=== PATIENT | female | born 1965 | race Caucasian/White ===

== ENCOUNTER 2019-07-19 00:12 | Emergency (ER) | payer MEDICARE, MEDICAID, SELFPAY ==
[2019-07-19 00:15] VITALS: BP 160/92; PULSE 93; RESP 16; TEMP 36.9; O2SAT 98
--- NOTE | 2019-07-19 00:26 | ED.GENADUL_ITS ---
Discharge Plan Disposition Patient Disposition: HOME Condition: Good Discharge Details Chief Complaint: Sorethroat Clinical Impression: Strep pharyngitis Primary Care Provider: Tom Hay ED Provider: Brad Loredo Phillips Meds and New Rx's Prescriptions: Continued fluoxetine [Prozac] 40 mg Capsule 80 mg DAILY RF: 0 alprazolam [Xanax] 1 mg Tablet 1 mg PO BID RF: 0 levothyroxine 300 mcg Tablet 325 mcg PO DAILY RF: 0 aripiprazole [Abilify] 30 mg Tablet 30 mg PO DAILY RF: 0 Discharge Instructions Instructions: Strep Throat (ED) Additional Instructions: Rest and drink plenty of fluids to stay hydrated. Salt water gargles as well as Cepacol lozenges or Chloraseptic spray for throat pain. Acetaminophen or ibuprofen for fever and pain. Follow-up with primary care next week if not better. Return to ED if inability to swallow, difficulty breathing, mental status changes, other concerns or problems. Referrals: Tom aHy [Primary Care Provider] - Medical Decision Making No evidence of [employer]CTION[employer] and no significant edema/swelling noted. Patient rapid strep is positive. Discussed options with patient. She is elected for IM injection of penicillin. Will give Cepacol lozenge and Tylenol for comfort. Push fluids to stay hydrated. Continue ibuprofen and acetaminophen for pain and discomfort. Cepacol lozenges or Chloraseptic spray for throat pain. Salt water gargles. Follow-up with primary care next week if not better. Return to ED for inability to swallow, difficulty breathing, mental status changes, other concerns or problems. HPI General Mode of arrival: ambulatory . Date/Time Provider Initiated Documentation: 07/19/19 00:18 . Limitations to Documentation: no limitations . Information obtained by: patient and RN notes reviewed . HPI Narrative: Patient presents to ED for evaluation of sore throat. Pain started 24 hours ago. She does not know whether she has had fevers or chills. She has cough but feels that it is chronic smoker's cough. She has no shortness of breath. She complains of right ear pain. She has some congestion. She reports that her throat hurts to talk or swallow. She has tried ibuprofen. Related Data Home Medications Medication Instructions Recorded Confirmed alprazolam [Xanax] 1 mg PO BID 07/19/19 07/19/19 aripiprazole [Abilify] 30 mg PO DAILY 07/19/19 07/19/19 fluoxetine [Prozac] 80 mg DAILY 07/19/19 07/19/19 levothyroxine 325 mcg PO DAILY 07/19/19 07/19/19 Allergies Allergy/AdvReac Type Severity Reaction Status Date / Time acetaminophen [From Vicodin] Allergy Unverified 07/19/19 00:18 clonidine Allergy Unverified 07/19/19 00:17 hydrocodone [From Vicodin] Allergy Unverified 07/19/19 00:18 codeine AdvReac Unverified 07/19/19 00:18 methadone AdvReac Unverified 07/19/19 00:17 General Stated Complaint: Sorethroat JOANNE: 4 Review of Systems Review of Systems Narrative: As documented in HPI otherwise negative as below. Const: no fever, chills, weakness Resp: cough; no SOB, pleuritic pain CV: no CP, diaphoresis, edema, syncope GI: no abdominal pain, nausea, vomiting, diarrhea Neuro: no headache, numbness, focal weakness, confusion [facility], [facility] Medical History (Updated 07/19/19 @ 00:26 by Brad Loredo MD) Hypothyroid (Chronic) Social History (Updated 07/19/19 @ 00:26 by Brad Loredo MD) Smoking/Tobacco Use Status: Current every day Tobacco Type: cigarettes Alcohol Intake: current Drug use: Never Do you feel safe at home: Yes Do you feel safe in your relationship?: Yes Exam Narrative Exam Narrative: Vitals: Afebrile. Elevated blood pressure otherwise normal vitals. Normal room air saturation. Const: WDWN female in NAD. HEENT: NC/AT. Normal facial exam.. TMs clear bilaterally. OP with erythema but no swelling, exudate or ulcers. Eyes: Normal conjunctiva and sclera. Neck: Supple. Trachea midline. Positive anterior adenopathy. Lungs: Normal respiratory effort. Lungs are clear. Cor: RRR without murmur/gallop. Neuro: A+O x 3. CN grossly in tact. Good strength and no focal deficit. Skin: Warm and dry without rash. Course Vital Signs Vital signs: Vital Signs Temperature 98.5 F 07/19/19 00:15 Pulse 93 H 07/19/19 00:15 Respiratory Rate 16 07/19/19 00:15 Blood Pressure 160/92 H 07/19/19 00:15 Pulse Oximetry 98 07/19/19 00:15 Temperature 98.5 F 07/19/19 00:15 Pulse 93 H 07/19/19 00:15 Respiratory Rate 16 07/19/19 00:15 Blood Pressure 160/92 H 07/19/19 00:15 Pulse Oximetry 98 07/19/19 00:15 Oxygen Delivery Method Room Air 07/19/19 00:15 Oxygen Flow Rate 0 07/19/19 00:15 Pain Level 10 07/19/19 00:15
[2019-07-19 01:06] VITALS: BP 160/92; PULSE 93; RESP 16; O2SAT 98
== END 2019-07-19 01:19 | disposition home or self-care (01) ==
LOC: ER 01:26
PROVIDERS: Emergency Provider Emergency Medicine; PCP Internal Medicine
DX: J02.0 Streptococcal pharyngitis (principal)
CPT/HCPCS: 87880; 96372; 99284

== ENCOUNTER 2020-03-08 11:18 | Emergency (ER) | payer MEDICARE, MEDICAID, SELFPAY ==
[2020-03-08 11:20] VITALS: BP 133/94; PULSE 91; RESP 16; TEMP 36.4; O2SAT 98
--- NOTE | 2020-03-08 12:02 | W.ED.GENAD ---
Discharge Plan Disposition Patient Disposition: HOME Condition: Stable Discharge Details Chief Complaint: Orthopedic Clinical Impression: Left shoulder pain Primary Care Provider: Tom Hay ED Provider: Daron Mcpherson Home Meds and New Rx's Prescriptions: Continued fluoxetine [Prozac] 40 mg Capsule 80 mg PO DAILY RF: 0 alprazolam [Xanax] 1 mg Tablet 1 mg PO BID RF: 0 levothyroxine 300 mcg Tablet 325 mcg PO DAILY RF: 0 aripiprazole [Abilify] 30 mg Tablet 30 mg PO DAILY RF: 0 Ozempic 1 mg/dose (2 mg/1.5 mL) Pen Injector 1 mg SUBCUT DIRECTED RF: 0 Discharge Instructions Instructions: Shoulder Pain (ED) Additional Instructions: X-ray unremarkable for acute bony abnormality. Wear sling as needed, advance activity as tolerated. Be sure to do passive range of motion at least 4 times daily to avoid a frozen shoulder. [id number] Tylenol and/or Motrin as directed for discomfort. Cool compresses every 2 hours for 20 minutes. Please watch for new or worsening symptoms and return to the ER for any concerns. I have given you the name and number of our local orthopedic. I do recommend reaching out to their office later today or tomorrow for prompt outpatient reevaluation within the next week or so. If symptoms persist outpatient assessment, MRI, physical therapy may be indicated. Referrals: Lew Marion MD [ [facility] STAFF PHYSICIAN] - Medical Decision Making Patient with a left shoulder injury that occurred Thursday morning after slipping on a danish floor falling down stairs on her back and left side. She did have other injuries at the time of the fall but denies those now. She appears well, nontoxic and is neurologically intact. I do not see any obvious ecchymosis or trauma to her left arm but she does have diffuse discomfort over her shoulder and elbow. Range of motion of the elbow is full, limited of the shoulder, held in adduction. Will obtain x-ray of her left shoulder and left elbow. Patient reports taking Motrin this morning, requesting pain medication now. Given her allergy to hydrocodone and codeine, will provide 1 g p.o. Tylenol. Case discussed with Dr. Smith who evaluated the patient in the ER, please see his note. X-ray of left shoulder and elbow read by me as no acute bony abnormality. Discussed findings with patient. Discussed [id number] Tylenol and/or Motrin. Sling applied, we discussed the importance of passive range of motion to avoid frozen shoulder. Discussed cool compresses and the importance of outpatient orthopedic follow-up, outpatient MRI and/or physical therapy may be indicated. Encouraged to return to the ER for new or worsening symptoms. Medical Records Medical records reviewed: Yes I reviewed the patient's medical records. Imaging Data Radiologic Study: Attestation: I personally reviewed and interpreted this imaging study as follows: Imaging: X-Ray Radiologist's impression: Left elbow unremarkable Radiologic Study #2: Attestation: I personally reviewed and interpreted this imaging study as follows: Imaging: X-Ray Radiologist's impression: Left shoulder, no acute bony abnormality. Degenerative changes noted, as well as calcific tendinosis HPI General Mode of arrival: ambulatory. Date/Time Provider Initiated Documentation: 03/08/20 11:19. Limitations to Documentation: no limitations. Information obtained by: patient. HPI Narrative: This is a 54-year-old female with history of thyroid disease, COPD, current smoker, reports that she slipped on Thursday morning because of freshly polished floors. She fell backwards down approximately 25 steps, more so on her left side. She reports at the time of the injury she had back, hip, left arm pain. She did strike her head but denies any LOC. Since that time she reports that her hip and back have improved but she continues to have left shoulder and arm pain, moderate in nature at rest, severe with movement. She is right-hand dominant. She reports tingling down her left arm but denies numbness or weakness. She reports mild nausea today from the pain in her left arm. There is no pain in her chest, the pain in her arm does not radiate anywhere. Related Data Home Medications Medication Instructions Recorded Confirmed alprazolam [Xanax] 1 mg PO BID 07/19/19 03/08/20 aripiprazole [Abilify] 30 mg PO DAILY 07/19/19 03/08/20 fluoxetine [Prozac] 80 mg PO DAILY 07/19/19 03/08/20 levothyroxine 325 mcg PO DAILY 07/19/19 03/08/20 Ozempic 1 mg SUBCUT DIRECTED 03/08/20 03/08/20 Allergies Allergy/AdvReac Type Severity Reaction Status Date / Time clonidine Allergy Severe nazia Unverified 03/08/20 11:29 adriana syndrome hydrocodone [From Vicodin] Allergy Unverified 07/19/19 00:18 codeine AdvReac Unverified 07/19/19 00:18 methadone AdvReac Unverified 07/19/19 00:17 General Stated Complaint: Orthopedic JOANNE: 3 Review of Systems Constitutional Constitutional: Denies fatigue, Denies headache(s) and Denies weakness Eyes Eyes: Denies change in vision ENT Ears, Nose, Mouth, and Throat: Denies headache(s) Cardiovascular Cardiovascular: Denies chest pain and Denies dyspnea Respiratory Respiratory: Denies cough and Denies dyspnea Gastrointestinal Gastrointestinal: Denies abdominal pain, Reports nausea and Denies vomiting Genitourinary Genitourinary: Denies hematuria and Denies dysuria Musculoskeletal Musculoskeletal: Reports back pain (Resolved) and Reports tingling Integumentary/Breasts Skin/Breast: Denies rash Neurologic Neurologic: Denies headache(s), Reports tingling and Denies weakness Endocrine Endocrine: Denies fatigue [facility] Medical History Hypothyroid (Chronic) Social History Smoking/Tobacco Use Status: Current every day Tobacco Type: cigarettes Alcohol Intake: never Drug use: Daily Substance use type: marijuana Do you feel safe at home: Yes Do you feel safe in your relationship?: Yes Exam Const General: cooperative, healthy appearing, comfortable and no acute distress Orientation: alert, awake and oriented x3 HENCA Head: normal to inspection, normocephalic and atraumatic Mouth: moist mucous membranes Eyes Conjunctivae: conjunctivae normal Neck Neck: normal visual inspection, full ROM, trachea midline, supple and nontender Chest Chest: normal inspection of the chest Resp Effort & Inspection: normal respiratory effort and able to speak in complete sentences Auscultation: clear to auscultation bilaterally Cardio Rate: regular rate Rhythm: regular rhythm GI Inspection: normal to inspection Palpation: soft and nontender Back/Spine/Pelvis Back: No back tenderness Skin General skin exam: no rashes or lesions noted Neuro General: patient alert, patient awake, patient oriented x3, moves all extremities and no focal motor deficits Motor: muscle tone normal throughout Sensory Exam: no sensory deficits noted Extrem Left upper extremity: shoulder/upper arm Details: inspection abnormal, tenderness Location: of the proximal humerus, axillary nerve sensory function normal and abnormal ROM Details: held in an abnormal fashion Details: in ADduction, pain with active ROM, pain with passive ROM and with range as follows (Limited in all directions); no swelling, no abrasions, no ecchymosis, no crepitus and no deformity and elbow/forearm Details: normal to inspection, tenderness Location: of the distal humerus, normal ROM and distal pulses intact; no swelling, no unusual warmth and no ecchymosis Psych Appearance: grossly normal Mental Status: mental status grossly normal Course Vital Signs Vital signs: Vital Signs Temperature 36.4 C L 03/08/20 11:20 Pulse 91 H 03/08/20 11:20 Respiratory Rate 16 03/08/20 11:20 Blood Pressure 133/94 H 03/08/20 11:20 Pulse Oximetry 98 03/08/20 11:20 Temperature 36.4 C L 03/08/20 11:20 Temperature Source Skin 03/08/20 11:20 Pulse 91 H 03/08/20 11:20 Respiratory Rate 16 03/08/20 11:20 Respiratory Effort 03/08/20 11:33 Blood Pressure 133/94 H 03/08/20 11:20 Blood Pressure Position Standing 03/08/20 11:20 Pulse Oximetry 98 03/08/20 11:20 Oxygen Delivery Method Room Air 03/08/20 11:20 Oxygen Flow Rate 0 03/08/20 11:20 Pain Level 10 03/08/20 11:31
--- NOTE | 2020-03-08 12:27 | DI.RAD_ITS ---
EXAM: XR ELBOW LT COMPLETE CLINICAL HISTORY: fall 2 days ago. TECHNIQUE: 2D digital imaging was performed. COMPARISON: No exams were available for comparison FINDINGS: BONES: No acute fracture is present. No bony destructive lesion is seen. JOINTS: The elbow is normally aligned. No joint effusion is seen. SOFT TISSUE: Normal. IMPRESSION: Unremarkable radiographs of the left elbow. DATA REPOSITORY: RADIATION DOSE DELIVERED:
--- NOTE | 2020-03-08 12:28 | DI.RAD_ITS ---
EXAM: XR SHOULDER LT COMPLETE 2+V CLINICAL HISTORY: fall 2 days ago. TECHNIQUE: 2D digital imaging was performed. COMPARISON: No exams were available for comparison FINDINGS: BONES: No acute fracture is present. No bony destructive lesion is seen. JOINTS: No dislocation present. There are mild degenerative changes of the AC joint. There is spurri ng at the inferior glenoid. SOFT TISSUE: There are multiple calcifications seen around the humeral head, consistent with calcific tendinosis. IMPRESSION: Mild degenerative changes and calcific tendinosis. No acute abnormality.. DATA REPOSITORY: RADIATION DOSE DELIVERED:
[2020-03-08] MEDS: Acetaminophen 500 MG TAB 1000 MG PO (13:02)
[2020-03-08 13:28] VITALS: BP 133/94; PULSE 91; RESP 16; TEMP 36.4; O2SAT 98
== END 2020-03-08 13:40 | disposition home or self-care (01) ==
PROVIDERS: Emergency Provider Physician Assistant; PCP Internal Medicine
DX: M75.32 Calcific tendinitis of left shoulder (principal); S59.902A Unspecified injury of left elbow, initial encounter; S49.92XA Unspecified injury of left shoulder and upper arm, initial encounter; W10.8XXA Fall (on) (from) other stairs and steps, initial encounter; R11.0 Nausea; J44.9 Chronic obstructive pulmonary disease, unspecified; F17.210 Nicotine dependence, cigarettes, uncomplicated
CPT/HCPCS: 99284; 73030; 73080; 99285; L3650

== ENCOUNTER 2020-06-07 12:49 | Emergency (ER) | payer MEDICARE, MEDICAID, SELFPAY ==
[2020-06-07 12:52] VITALS: BP 130/89; PULSE 98; RESP 16; TEMP 36.6; O2SAT 99
--- NOTE | 2020-06-07 13:00 | DI.CT_ITS ---
EXAM: CT ABDOMEN PELVIS W CLINICAL HISTORY: RUQ and RLQ abd pain, NVD TECHNIQUE: COMPARISON: No exams were available for comparison FINDINGS: CT examination of the abdomen and pelvis was performed with bolus infusion 100 cc of Omnipaque 350. Images obtained through the lung bases show a 7 millimeter mean diameter intrapulmonary nodule of the right lower lobe posteriorly. The liver is unremarkable in appearance except for 13 millimeter in diameter peripheral nodular enhan cing low-attenuation nodule suggestive of hemangioma. Spleen is unremarkable. Gallbladder has been surgically removed. No biliary dilatation. Pancreas appears normal. There is a 27 millimeter in diameter left adrenal mass. No prior studies available for comparison. This measures about 34 Hounsfield units on this contrast-enhanced CT. A noncontrast CT is suggested to evaluate malignancy versus benign adenoma. Kidneys are unremarkable in appearance except for a tiny presumed right renal cysts. No urinary trac t calcification or obstruction. No significant abdominal wall hernia seen. No significant abdominal or pelvic adenopathy. Appendix is normal. No evidence of diverticulitis. There are multiple mildly dilated fluid-filled loops of small bowel throughout the abdomen. There is mild duodenal and jejunal wall thickening. The findings may represent enteritis. Please correlate clinically. Multiple vascular clips noted in the pelvis on the right, question prior oophorectomy and/or salpinge ctomy. Clips also noted on the left. IMPRESSION: Findings raising the possibility of enteritis involving the small bowel. Incidental right basilar intrapulmonary nodule, 7 millimeter mean diameter, follow-up chest CT recomm ended in 6 months. Left adrenal 27 millimeter mass, additional evaluation with noncontrast CT recommended to evaluate be nign adrenal adenoma versus neoplasm. RADIATION DOSE DELIVERED: 1,124.04mGy.cm Total DLP
--- NOTE | 2020-06-07 13:03 | ED.GENADUL_ITS ---
Discharge Plan Disposition Patient Disposition: HOME Condition: Stable Discharge Details Chief Complaint: Abd Prob Clinical Impression: Gastroenteritis, Incidental pulmonary nodule Primary Care Provider: Tom Hay ED Provider: Lilly Martinez Home Meds and New Rx's Prescriptions: New ondansetron HCl [Zofran] 4 mg tablet 4 mg PO Q8H PRN (Reason: nausea and vomiting) Qty: 10 RF: 0 dicyclomine 20 mg tablet 20 mg PO TID PRN (Reason: stomach upset) Qty: 14 RF: 0 No Action fluoxetine [Prozac] 40 mg Capsule 80 mg PO DAILY RF: 0 alprazolam [Xanax] 1 mg Tablet 1 mg PO BID RF: 0 levothyroxine 300 mcg Tablet 325 mcg PO DAILY RF: 0 aripiprazole [Abilify] 30 mg Tablet 30 mg PO DAILY RF: 0 Spiriva with HandiHaler 18 mcg Capsule, W/Inhalation Device 1 cap INHALATION DAILY RF: 0 Trelegy Ellipta 100-62.5-25 mcg Blister With Device 1 inh INHALATION DAILY RF: 0 albuterol sulfate 90 mcg/actuation Aero Powdr Breath Act W/Sensor 2 inh INHALATION Q6H RF: 0 esomeprazole magnesium 40 mg Capsule,Delayed Release(Dr/Ec) 80 mg PO DAILY RF: 0 Ozempic 1 mg/dose (2 mg/1.5 mL) Pen Injector 1 mg SUBCUT DIRECTED RF: 0 Discharge Instructions Instructions: Gastroenteritis (ED), Pulmonary Nodules (ED) Additional Instructions: Have primary care provider follow-up on the incidental findings of her CT abdomen pelvis. There is a questionable pulmonary nodule and adrenal mass. There is also some evidence of enteritis. Diet as discussed. Try the brat diet with bananas rice apples toast and then a bland diet thereafter. Practice clear liquids for 48 to 72 hours. Follow up with primary care provider in 3-5 days. Return to ED sooner if any worsening fever abdominal pain blood noted in her stool, or concerns. Increase oral fluids. Referrals: Tom Hay [Primary Care Provider] - Discharge Data Discharge Date/Time-TO BE ENTERED AT DEPARTURE: 06/07/20 15:56 Medical Decision Making 54-year-old female presents to the ER with chief complaint of right upper quadrant and right lower quadrant abdominal pain. Associated with nausea vomiting and watery diarrhea which has gotten worse since last night. Pain radiates straight into back, and from right upper quadrant down her right lower quadrant. She reports pain that waxes and wanes. Exacerbating factors include movement and position changes and drinking water. She reports that initially it was across her abdomen is now concentrated on her right side. Does have a history of asthma, COPD, anxiety, diabetes, GERD, hypothyroidism. Surgical history includes cholecystectomy, hysterectomy, shoulder surgery. She is a daily smoker and does endorse marijuana use. Denies alcohol. Differential diagnosis this time includes but not limited to common bile duct stone, appendicitis, bowel obstruction, gastroenteritis, GI bleed. EXAM: CT ABDOMEN PELVIS W CLINICAL HISTORY: RUQ and RLQ abd pain, NVD TECHNIQUE: COMPARISON: No exams were available for comparison FINDINGS: CT examination of the abdomen and pelvis was performed with bolus infusion 100 cc of Omnipaque 350. Images obtained through the lung bases show a 7 millimeter mean diameter intrapulmonary nodule of the right lower lobe posteriorly. The liver is unremarkable in appearance except for 13 millimeter in diameter peripheral nodular enhancing low-attenuation nodule suggestive of hemangioma. Spleen is unremarkable. Gallbladder has been surgically removed. No biliary dilatation. Pancreas appears normal. There is a 27 millimeter in diameter left adrenal mass. No prior studies available for comparison. This measures about 34 Hounsfield units on this contrast-enhanced CT. A noncontrast CT is suggested to evaluate malignancy versus benign adenoma. Kidneys are unremarkable in appearance except for a tiny presumed right renal cysts. No urinary tract calcification or obstruction. No significant abdominal wall hernia seen. No significant abdominal or pelvic adenopathy. Appendix is normal. No evidence of diverticulitis. There are multiple mildly dilated fluid-filled loops of small bowel throughout the abdomen. There is mild duodenal and jejunal wall thickening. The findings may represent enteritis. Please correlate clinically. Multiple vascular clips noted in the pelvis on the right, question prior oophorectomy and/or salpingectomy. Clips also noted on the left. IMPRESSION: Findings raising the possibility of enteritis involving the small bowel. Incidental right basilar intrapulmonary nodule, 7 millimeter mean diameter, follow-up chest CT recommended in 6 months. Left adrenal 27 millimeter mass, additional evaluation with noncontrast CT recommended to evaluate benign adrenal adenoma versus neoplasm. Discussed CT findings with patient, verbalized understanding. Discussed close follow-up with PCP patient states that she has an appointment coming up in 2 weeks she will call to see if she has a sooner appointment available. HPI General Mode of arrival: ambulatory . Date/Time Provider Initiated Documentation: 06/07/20 12:50 . Limitations to Documentation: no limitations . Information obtained by: patient . HPI Narrative: 54-year-old female presents to the ER with chief complaint of right upper quadrant and right lower quadrant abdominal pain. Associated with nausea vomiting and watery diarrhea which has gotten worse since last night. Pain radiates straight into back, and from right upper quadrant down her right lower quadrant. She reports pain that waxes and wanes. Exacerbating factors include movement and position changes and drinking water. She reports that initially it was across her abdomen is now concentrated on her right side. Does have a history of asthma, COPD, anxiety, diabetes, GERD, hypothyroidism. Surgical history includes cholecystectomy, hysterectomy, shoulder surgery. She is a daily smoker and does endorse marijuana use. Denies alcohol. Related Data Home Medications Medication Instructions Recorded Confirmed alprazolam [Xanax] 1 mg PO BID 07/19/19 06/07/20 aripiprazole [Abilify] 30 mg PO DAILY 07/19/19 06/07/20 fluoxetine [Prozac] 80 mg PO DAILY 07/19/19 06/07/20 levothyroxine 325 mcg PO DAILY 07/19/19 06/07/20 Ozempic 1 mg SUBCUT DIRECTED 03/08/20 06/07/20 albuterol sulfate 2 inh INHALATION Q6H 06/07/20 06/07/20 dicyclomine 20 mg PO TID PRN #14 tab 06/07/20 esomeprazole magnesium 80 mg PO DAILY 06/07/20 06/07/20 jcijulznlct-ztjedsnuw-bqzfmini 1 inh INHALATION DAILY 06/07/20 06/07/20 [Trelegy Ellipta] ondansetron HCl [Zofran] 4 mg PO Q8H PRN #10 tab 06/07/20 tiotropium bromide [Spiriva with 1 cap INHALATION DAILY 06/07/20 06/07/20 HandiHaler] Previous Rx's Medication Instructions Recorded dicyclomine 20 mg PO TID PRN #14 tab 06/07/20 ondansetron HCl [Zofran] 4 mg PO Q8H PRN #10 tab 06/07/20 Allergies Allergy/AdvReac Type Severity Reaction Status Date / Time clonidine Allergy Severe nazia Unverified 06/07/20 13:33 adriana syndrome codeine Allergy Itching Unverified 06/07/20 12:54 hydrocodone [From Vicodin] Allergy Itching Unverified 06/07/20 12:54 methadone AdvReac Nausea Unverified 06/07/20 12:54 General Stated Complaint: Abd Prob JOANNE: 3 Review of Systems Narrative: Constitutional: Negative for weight loss, alert and oriented, well groomed, normal body habitus, appears comfortable. HEENT: Denies trauma, headaches, blurry vision, nasal discharge, sore throat, trouble swallowing. Chest: Denies chest pain, palpitations, irregular rhythm, hypertension. Respiratory: Denies Shortness of breath, cough, hemoptysis. GI: Denies constipation. Positive nausea vomiting diarrhea and right upper quadrant abdominal pain. : Denies dysuria, hematuria, flank pain, rectal bleeding. Neuro: Denies dizziness, blurry vision, weakness, syncope, headache or facial numbness. Hematologic: Denies easy bruising, intolerance to heat or cold, hair loss. COUNT INCLUDES THE [facility] Medical History Anxiety (Chronic) Asthma (Chronic) COPD (chronic obstructive pulmonary disease) (Chronic) Depression (Chronic) Diabetes mellitus (Chronic) GERD (gastroesophageal reflux disease) (Chronic) Hypothyroid (Chronic) Surgical History History of cholecystectomy (Chronic) History of hysterectomy (Chronic) Hx of shoulder surgery (Chronic) Social History Smoking/Tobacco Use Status: Current every day Tobacco Type: cigarettes Alcohol Intake: never Drug use: Daily Substance use type: marijuana Do you feel safe at home: Yes Do you feel safe in your relationship?: Yes Exam Narrative Exam Narrative: Constitutional: Alert and oriented x3. Appears stated age. Normal body habitus. Head: Normocephalic, no trauma. Eyes: Pupils PERRLA, Red reflex noted, EOM's intact. Eyelids symmetrical without lesions, discharge, or swelling. ENT: Bilateral TM's WNL, External ear normal to inspection, no mastoid TTP, swelling, or erythema, Nasal turbinates WNL, no nasal discharge. Normal dentition, Posterior pharynx WNL, no exudate. Chest: RRR, Normal S1, S2, distal pulses intact. Resp: Lungs clear to auscultation bilaterally, no wheezes, rales, or rhonchi. Musculoskeletal: Normal gait, 5/5 strength to all four extremities. Skin: No suspicious rashes or lesions. Capillary refill less than 2 sec. Neurologic: Cranial nerves II-XII intact. Alert and oriented x 3. DTR's intact. Hematologic/Lymphatic: No ecchymosis, no lymphadenopathy. Course Vital Signs Vital signs: Vital Signs Temperature 36.6 C 06/07/20 12:52 Pulse 98 H 06/07/20 12:52 Respiratory Rate 16 06/07/20 12:52 Blood Pressure 130/89 06/07/20 12:52 Pulse Oximetry 99 06/07/20 12:52 Temperature 36.6 C 06/07/20 12:52 Temperature Source Temporal Artery Scan 06/07/20 12:52 Pulse 98 H 06/07/20 12:52 Respiratory Rate 16 06/07/20 12:52 Respiratory Effort Non-Labored 06/07/20 12:56 Blood Pressure 130/89 06/07/20 12:52 Blood Pressure Position Sitting 06/07/20 12:52 Pulse Oximetry 99 06/07/20 12:52 Oxygen Delivery Method Room Air 06/07/20 12:52 Oxygen Flow Rate 0 06/07/20 12:52 Pain Level 9 06/07/20 12:52
[2020-06-07] MEDS: Normal Saline 1,000 ML 1000 ML IV (13:11)
[2020-06-07] MEDS: Ondansetron 4 MG/2 ML VIAL IVP (13:12)
[2020-06-07] MEDS: fentaNYL 100 MCG/2 ML VIAL 50 MCG IVP (13:12)
[2020-06-07 13:20] LABS: Absolute Eosinophil Count 0.13 10^3/uL (0.0-0.7); Absolute Lymphocyte Count 2.38 10^3/uL (1.2-3.4); Absolute Monocyte Count 0.58 10^3/uL (0.1-0.8); Basophils % 0.3; Eosinophils % 0.7; HCT 45.2 % (36.0-46.0); HGB 15.4 g/dL (11.2-15.7); Immature Grans % 0.6; Lymphocytes % 13.2; MCH 31.1 pg (27.0-33.0); MCHC 34.1 % (32.0-36.0); MCV 91.3 fL (80-95); MPV 9.8 fL (8.0-11.0); Monocytes % 3.2; Nucleated RBC 0 %; Platelet Count 366 10^3/uL (130-400); RBC 4.95 10^6/uL (3.93-5.22); RDW 12.7 % (11.7-14.6); RDW-SD 42.1 fL; WBC 18.05 10^3/uL (4.4-10.8)
[2020-06-07] MEDS: FAMOTIDINE 20 MG/50 ML BAG 200 MG IVPB (13:21)
[2020-06-07 13:22] LABS: Absolute Basophil Count 0.05 10^3/uL (0.0-0.2)
[2020-06-07 13:25] VITALS: BP 130/85; PULSE 92; O2SAT 94
[2020-06-07] MEDS: Normal Saline Flush 10 ML SYR IVP (13:25)
[2020-06-07 13:30] LABS: ALT 19 U/L (14-59); AST 7 U/L (15-37); Albumin 3.5 g/dL (3.4-5.0); Alkaline Phosphatase 74 U/L (46-116); Anion Gap 8.9 mmol/L (3-11); BUN 9 mg/dL (7-18); Bilirubin, Total 0.3 mg/dL (0.2-1.0); CO2 28.1 mmol/L (21.0-32.0); CREATININE 0.63 mg/dL (0.55-1.02); Chloride 103 mmol/L (98-107); Glucose 162 mg/dL (74-106); Lipase 130 U/L (73-393); Magnesium 1.7 mg/dL (1.8-2.4); Potassium 3.8 mmol/L (3.5-5.1); Sodium 140 mmol/L (136-145); Total Protein 7.2 g/dL (6.4-8.2)
[2020-06-07 13:40] LABS: Bilirubin Negative (Negative); Blood Trace-intact (Negative); Clarity Clear (Clear); Glucose Negative (Negative); Ketones Negative (Negative); Leukocyte Esterase Negative (Negative); Nitrite Negative (Negative); Specific Gravity 1.025 (1.005-1.025); Urobilinogen 0.2 EU/dL (Up TO 0.2); pH 6.5 (5-8)
[2020-06-07 13:49] LABS: Bacteria Negative HPF (Negative); C & S Indicated? No; Casts Negative LPF (Negative); Crystals Negative HPF (Negative); Epithelial Cells Few HPF (Negative); Mucus Negative (Negative); RBC 0-2 HPF (0-2); WBC 0-2 HPF (0-5)
[2020-06-07] MEDS: Omnipaque 350 MG/ML 100 ML BTL IJ (14:59)
[2020-06-07] MEDS: Normal Saline - Diluent 50 ML VIAL IV (15:00)
[2020-06-07 15:50] VITALS: BP 137/86; PULSE 81; RESP 16; TEMP 36.6; O2SAT 96
== END 2020-06-07 15:56 | disposition home or self-care (01) ==
PROVIDERS: Emergency Provider Registered Nurse Emergency; PCP Internal Medicine
DX: K52.89 Other specified noninfective gastroenteritis and colitis (principal); R91.1 Solitary pulmonary nodule; R10.31 Right lower quadrant pain; R11.2 Nausea with vomiting, unspecified; J44.9 Chronic obstructive pulmonary disease, unspecified; F17.210 Nicotine dependence, cigarettes, uncomplicated; E11.9 Type 2 diabetes mellitus without complications
CPT/HCPCS: 36415; 80053; 83690; 96361; 96365; 96375; 99285; 74177; 81003; 81015; 83735; 85025; 99284; J2405; J3010; J3490

== ENCOUNTER 2020-11-20 17:37 | Emergency (ER) | payer MEDICARE, MEDICAID, SELFPAY ==
[2020-11-20 17:44] VITALS: BP 119/87; PULSE 108; RESP 20; TEMP 36.8; O2SAT 96
--- NOTE | 2020-11-20 17:45 | ED.GENADUL_ITS ---
Discharge Plan Disposition Patient Disposition: HOME Condition: Stable Discharge Details Clinical Impression: Cellulitis of neck, Psoriasis of scalp Primary Care Provider: Tom Hay ED Provider: Uzma Lemon Home Meds and New Rx's Prescriptions: New cephalexin [Keflex] 500 mg capsule 500 mg PO QID 7 Days Qty: 28 RF: 0 Continued fluoxetine [Prozac] 40 mg Capsule 80 mg PO DAILY RF: 0 alprazolam [Xanax] 1 mg Tablet 1 mg PO BID RF: 0 levothyroxine 300 mcg Tablet 325 mcg PO DAILY RF: 0 aripiprazole [Abilify] 30 mg Tablet 30 mg PO DAILY RF: 0 Spiriva with HandiHaler 18 mcg Capsule, W/Inhalation Device 1 cap INHALATION DAILY RF: 0 Trelegy Ellipta 100-62.5-25 mcg Blister With Device 1 inh INHALATION DAILY RF: 0 albuterol sulfate 90 mcg/actuation Aero Powdr Breath Act W/Sensor 2 inh INHALATION Q6H RF: 0 esomeprazole magnesium 40 mg Capsule,Delayed Release(Dr/Ec) 80 mg PO DAILY RF: 0 ondansetron HCl [Zofran] 4 mg tablet 4 mg PO Q8H PRN (Reason: nausea and vomiting) Qty: 10 RF: 0 ibuprofen 800 mg Tablet 800 mg PO Q8H PRNRF: 0 Ozempic 1 mg/dose (2 mg/1.5 mL) Pen Injector 1 mg SUBCUT DIRECTED RF: 0 Discharge Instructions Instructions: Cellulitis (ED), Acute Rash (ED) Additional Instructions: Take antibiotics until finished. Keep the area clean and dry and wash with gentle shampoo. Alternate tylenol and motrin as needed and directed for pain. Take the tramadol for pain not relieved with Tylenol or Motrin. Follow-up with your primary care doctor in 1 week. Return to the emergency department with any worsening or new concerning symptoms. Discharge Data Discharge Date/Time-TO BE ENTERED AT DEPARTURE: 11/20/20 19:00 Discharge Physician: Uzma Lemon Medical Decision Making 55-year-old female with a history of asthma, anxiety, COPD, diabetes and GERD presents with painful lump to the back of her neck for the past several days. She has a psoriasis rash to the back of her scalp and upper neck which appears chronic and significantly tender to palpation. There is no abscess noted. Suspect secondary bacterial infection due to scratching. She appears nontoxic do not see indication for lab work or imaging at this time. Will treat with Keflex and send home with a couple tabs of tramadol. Advised to follow-up with a primary care doctor for evaluation and return here if worse. Medical Records Medical records reviewed: Yes I reviewed the patient's medical records. HPI General Mode of arrival: ambulatory . Date/Time Provider Initiated Documentation: 11/20/20 17:45 . Limitations to Documentation: no limitations . Information obtained by: patient . HPI Narrative: Pt is a 55yo F who presents to the ED w/ a c/o painful lump to the back of her neck for the past few weeks, worse recently. Patient states she has had a history of a MRSA infection in the back of her neck and states she wanted to be checked out before this became worse as this required admission to the hospital and IV antibiotics in the past. She has a surgery scheduled for a different concern with her neck at [facility] next week. She denies any fever, difficulty swallowing, arm weakness or numbness, chest pain or shortness of breath. Related Data Home Medications Medication Instructions Recorded Confirmed alprazolam [Xanax] 1 mg PO BID 07/19/19 11/20/20 aripiprazole [Abilify] 30 mg PO DAILY 07/19/19 11/20/20 fluoxetine [Prozac] 80 mg PO DAILY 07/19/19 11/20/20 levothyroxine 325 mcg PO DAILY 07/19/19 11/20/20 Ozempic 1 mg SUBCUT DIRECTED 03/08/20 11/20/20 Spiriva with HandiHaler 1 cap INHALATION DAILY 06/07/20 11/20/20 Trelegy Ellipta 1 inh INHALATION DAILY 06/07/20 11/20/20 albuterol sulfate 2 inh INHALATION Q6H 06/07/20 11/20/20 esomeprazole magnesium 80 mg PO DAILY 06/07/20 11/20/20 ondansetron HCl [Zofran] 4 mg PO Q8H PRN #10 tab 06/07/20 11/20/20 cephalexin [Keflex] 500 mg PO QID 7 Days #28 cap 11/20/20 ibuprofen 800 mg PO Q8H PRN 11/20/20 11/20/20 Previous Rx's Medication Instructions Recorded ondansetron HCl [Zofran] 4 mg PO Q8H PRN #10 tab 06/07/20 cephalexin [Keflex] 500 mg PO QID 7 Days #28 cap 11/20/20 Allergies Allergy/AdvReac Type Severity Reaction Status Date / Time clonidine Allergy Severe nazia Unverified 11/20/20 17:46 adriana syndrome codeine Allergy Itching Unverified 11/20/20 17:46 hydrocodone [From Vicodin] Allergy Itching Unverified 11/20/20 17:46 methadone AdvReac Nausea Unverified 11/20/20 17:46 General JOANNE: 3 Review of Systems All systems reviewed & are unremarkable except as noted in HPI and below Constitutional Constitutional: Reports as per HPI, Denies chills and Denies fever(s) Eyes Eyes: Denies blurry vision ENT Ears, Nose, Mouth, and Throat: Denies dizziness, Denies sore throat and Denies throat swelling Cardiovascular Cardiovascular: Denies chest pain and Denies dyspnea Respiratory Respiratory: Denies cough and Denies dyspnea Gastrointestinal Gastrointestinal: Denies abdominal pain, Denies diarrhea and Denies vomiting Genitourinary Genitourinary: Denies hematuria and Denies dysuria Musculoskeletal Musculoskeletal: Denies back pain and Denies numbness Integumentary/Breasts Skin/Breast: Reports lesions and Denies rash Neurologic Neurologic: Denies dizziness, Denies localized weakness and Denies numbness Allergic/Immunologic Allergic/Immunologic: Denies throat swelling PFSH Medical History (Updated 11/20/20 @ 18:53 by Uzma Lemon DO) Anxiety Asthma COPD (chronic obstructive pulmonary disease) Depression Diabetes mellitus GERD (gastroesophageal reflux disease) Hypothyroid Surgical History History of cholecystectomy History of hysterectomy Hx of shoulder surgery Social History Smoking/Tobacco Use Status: Current every day Tobacco Type: cigarettes Smoking risk assessment performed?: Yes Alcohol Intake: never Drug use: Daily Substance use type: marijuana Do you feel safe at home: Yes Do you feel safe in your relationship?: Yes Exam Const General: cooperative, healthy appearing and no acute distress HENMT Head: normal to inspection Ears: hearing grossly normal bilaterally, external ears normal and TM's normal bilaterally General nose exam: external nose normal Mouth: oral mucosae normal Throat: posterior oropharynx normal Eyes General: appearance normal, both eyes and all related structures Neck Neck: full ROM, no lymphadenopathy, no meningeal signs, trachea midline, supple and anterior neck swelling Neck images: 1. 5 x 4 cm area patchy scaly erythema with central clearing located at the base of the skull and upper neck. This area significantly tender to palpation but no fluctuance or induration noted. There is no drainage or bleeding. Resp Effort & Inspection: normal respiratory effort and able to speak in complete sentences Cardio Rate: regular rate Skin General skin exam: no rashes or lesions noted Neuro General: patient alert, patient awake and patient oriented x3 Motor: muscle tone normal throughout Extrem General: normal to inspection and full ROM Psych Appearance: grossly normal Affect: normal affect
[2020-11-20] MEDS: Cephalexin 500 MG CAP PO (18:59)
[2020-11-20] MEDS: Cephalexin 500 MG CAP, 4 CAPS/BTL PO (19:00)
== END 2020-11-20 19:00 | disposition home or self-care (01) ==
PROVIDERS: Emergency Provider Physician Assistant; PCP Internal Medicine
DX: L03.221 Cellulitis of neck (principal); L40.9 Psoriasis, unspecified
CPT/HCPCS: 99283

== ENCOUNTER 2020-12-07 18:46 | Emergency (ER) | payer MEDICARE, MEDICAID, SELFPAY ==
--- NOTE | 2020-12-07 18:49 | W.ED.GENAD ---
Discharge Plan Disposition Patient Disposition: HOME Condition: Good Discharge Details Clinical Impression: UTI (urinary tract infection), Skin irritation Primary Care Provider: Tom Hay ED Provider: Katie Winters Home Meds and New Rx's Prescriptions: New cephalexin 500 mg capsule 500 mg PO QID 4 Days Qty: 16 RF: 0 Continued fluoxetine [Prozac] 40 mg Capsule 80 mg PO DAILY RF: 0 alprazolam [Xanax] 1 mg Tablet 1 mg PO TID RF: 0 levothyroxine 300 mcg Tablet 325 mcg PO DAILY RF: 0 aripiprazole [Abilify] 30 mg Tablet 30 mg PO DAILY RF: 0 Trelegy Ellipta 100-62.5-25 mcg Blister With Device 1 inh INHALATION DAILY RF: 0 albuterol sulfate 90 mcg/actuation Aero Powdr Breath Act W/Sensor 2 inh INHALATION Q6H RF: 0 esomeprazole magnesium 40 mg Capsule,Delayed Release(Dr/Ec) 80 mg PO DAILY RF: 0 ondansetron HCl [Zofran] 4 mg tablet 4 mg PO Q8H PRN (Reason: nausea and vomiting) Qty: 10 RF: 0 Ozempic 1 mg/dose (2 mg/1.5 mL) Pen Injector 1 mg SUBCUT DIRECTED RF: 0 Discharge Instructions Instructions: Cephalexin (By mouth), Urinary Tract Infection in Women (ED) Additional Instructions: The discomfort you are experiencing in your vagina is most consistent with vaginal irritation, likely from the soap you have been using. Please stop this and use something more soothing. May use just warm water. You may use your estrogen cream as was advised by her hand laminator. You do have hemorrhoids as well, please use [id number] hemorrhoid treatment for this. You also have findings suggest a bacterial urinary tract infection. Please take the antibiotics as prescribed. Even if symptoms improve, please take the entire course. Please contact your surgeon to discuss any continued pain you have over your incision. Please follow up with primary care in 1-2 weeks for reevaluation. If you develop fever/chills, increased pain, back pain, nausea, vomiting or other new/worsening symptoms please seek care urgently once again. Referrals: Tom Hay [Primary Care Provider] - Discharge Data Discharge Date/Time-TO BE ENTERED AT DEPARTURE: 12/07/20 20:20 Medical Decision Making Patient is a pleasant 55-year-old female presenting with chief complaint of drainage from her neck incision, possible UTI and possible vaginal yeast infection. Patient had surgical intervention on 11/30/2020 at which time she underwent anterior approach C6 corpectomy, C5-7 ACCF. Patient reports that she remove the dressing over the incision per discharge instructions did not have anything to reapply over that. Since then, her c-collar has been rubbing on the incision has had increased discomfort and swelling. She was concerned for potential infection. She denies any fevers or chills. States that she is swallowing and breathing comfortably. Patient is also concerned she may have a yeast infection. She reports that with her diabetes she has had chronic yeast infections. However, she denies any vaginal discharge and reports more of the vaginal itching which is unusual for her. She states that she is also has some burning with urination. States that she has been drinking a large amount of water and feels that this is more of the source of her increased urination. Is not having any urgency associate with this. Denies any back pain. Past medical history is pertinent for anxiety, asthma UTD, diabetes. On exam, patient appears anxious. Patient appears to be healing well. She does have Steri-Strips overlying the incision which were not removed. She has a small amount of dried blood over one area of the incision did not appreciate any surrounding erythema, warmth, drainage. She does have swelling inferior to the incision this is not erythematous or fluctuant. Wound was redressed and collar reapplied. Patient immediately reported feeling improved and feels that this may have just been irritation from alcohol or rubbing. Vaginal exam did not yield any vaginal discharge. However, the external and internal skin is quite erythematous. On further questioning, the patient now reporting that she has been cleansing her vaginal area with Mag dish detergent as she has not been allowed to shower thus far. She was feeling that the antimicrobial qualities would be of benefit. I feel this is more of a vulvovaginitis. I was not able to visualize the patient's cervix. She was quite uncomfortable of the speculum exam, I can primarily associated with the skin pain. Skin does also appear to be dry. She reports that typically she uses a estrogen cream for this but has not been using it since the time of surgery. Encourage that she begin using this again. Patient has no CVA tenderness. Not see any evidence of abscess or cellulitis. Urinalysis was reviewed. Moderate bacteria. Negative leukocyte esterase and nitrite. Patient I did discuss these findings and discussed that her symptoms do have a concern for potential UTI. She has had pyelonephritis historically per her report. She does not demonstrate any evidence of time. I do feel that treatment with antibiotics would be appropriate. Encourage water intake. Patient is getting cleansing wipes advised that she wash her genital area with warm water and to towel dry. Return precautions were discussed. I did advise that she stay in close contact with her surgeon regarding her incision. Dressing supplies were provided for the patient. They have recommended that she recover the wound but that again, she did not have any bandages at home. All other questions or concerns were addressed and she is in agreement this plan. HPI General Mode of arrival: ambulatory. Date/Time Provider Initiated Documentation: 12/07/20 18:47. Limitations to Documentation: no limitations. Information obtained by: patient, RN notes reviewed and old records reviewed (reviewed notes from recent surgery at [facility]). History of Present Illness 55 year old F presents to the emergency department with the chief complaint of discharge from surgical incision, concern for UTI and yeast infection, described as severe, with intensity rated at 8 (pain in neck since recent surgery). Quality is described as aching, and is localized to the neck and genitals. Patient reports no radiation. Patient started experiencing this day(s) and it has been constant. Medication improves symptom(s), (has been using oxycodone as prescribed for postsurgical pain) Movement worsens symptoms . Patient notes denies chest pain, cough, fever/chills, loss of appetite, nausea/vomiting, rash and shortness of breath. Patient did receive the following treatments prior to arrival, other (oxycodone) Related Data Home Medications Medication Instructions Recorded Confirmed alprazolam [Xanax] 1 mg PO TID 07/19/19 12/07/20 aripiprazole [Abilify] 30 mg PO DAILY 07/19/19 12/07/20 fluoxetine [Prozac] 80 mg PO DAILY 07/19/19 12/07/20 levothyroxine 325 mcg PO DAILY 07/19/19 12/07/20 Ozempic 1 mg SUBCUT DIRECTED 03/08/20 12/07/20 Trelegy Ellipta 1 inh INHALATION DAILY 06/07/20 12/07/20 albuterol sulfate 2 inh INHALATION Q6H 06/07/20 12/07/20 esomeprazole magnesium 80 mg PO DAILY 06/07/20 12/07/20 ondansetron HCl [Zofran] 4 mg PO Q8H PRN #10 tab 06/07/20 12/07/20 cephalexin 500 mg PO QID 4 Days #16 cap 12/07/20 Previous Rx's Medication Instructions Recorded ondansetron HCl [Zofran] 4 mg PO Q8H PRN #10 tab 06/07/20 cephalexin 500 mg PO QID 4 Days #16 cap 12/07/20 Allergies Allergy/AdvReac Type Severity Reaction Status Date / Time clonidine Allergy Severe nazia Unverified 12/07/20 18:55 adriana syndrome codeine Allergy Itching Unverified 12/07/20 18:55 hydrocodone [From Vicodin] Allergy Itching Unverified 12/07/20 18:55 methadone AdvReac Nausea Unverified 12/07/20 18:55 General JOANNE: 4 Review of Systems Constitutional Constitutional: Reports as per HPI, Denies chills, Denies fever(s), Denies headache(s) and Denies poor appetite ENT Ears, Nose, Mouth, and Throat: Denies headache(s) Cardiovascular Cardiovascular: Denies chest pain Respiratory Respiratory: Denies cough Gastrointestinal Gastrointestinal: Denies abdominal pain, Denies change in bowel habits, Denies nausea and Denies vomiting Genitourinary Genitourinary: Reports as per HPI Musculoskeletal Musculoskeletal: Reports as per HPI and Denies back pain Integumentary/Breasts Skin/Breast: Reports as per HPI and Denies rash Neurologic Neurologic: Denies headache(s) [facility] Medical History (Updated 12/07/20 @ 20:12 by YUNIOR Villalba) Anxiety Asthma COPD (chronic obstructive pulmonary disease) Depression Diabetes mellitus GERD (gastroesophageal reflux disease) Hypothyroid Surgical History History of cholecystectomy History of hysterectomy Hx of shoulder surgery Social History Smoking/Tobacco Use Status: Current every day Tobacco Type: cigarettes Smoking risk assessment performed?: Yes Alcohol Intake: never Drug use: Daily Substance use type: marijuana Do you feel safe at home: Yes Do you feel safe in your relationship?: Yes Exam Const General: cooperative, healthy appearing, comfortable, no acute distress, well developed, well groomed and anxious Nutritional Appearance: average body habitus and well nourished Orientation: alert and awake Neck Neck images: 1. area of incision, covered with steristrips. No discharge. Swelling just inferior and lateral to the wound. No erythema, warmth, drainage, fluctuance. Tender to palpation. Swallowing well, no respiratory distress. Trachea is midline, no lymphadenopathy. Resp Effort & Inspection: normal respiratory effort and no respiratory distress Auscultation: clear to auscultation bilaterally, no rales, no rhonchi and no wheezes Cardio Rate: regular rate Rhythm: regular rhythm Heart Sounds: S1 normal and S2 normal GI Inspection: normal to inspection Palpation: soft, no hepatosplenomegaly, not firm, no guarding, not rigid and nontender External Female Exam: erythema (skin is diffusely erythematous, on warmth, discharge or swelling), externally tender (diffuse), no external swelling, no lesions, no lacerations, no ecchymosis, No urethral discharge and No Bartholin cyst Speculum Exam - Vagina: vagina atrophic, erythematous, no foreign bodies, no lacerations, no lesions, No vaginal bleeding, no masses, no swelling and nontender Speculum Exam - Cervix: other (unable to visualize) OB/External & Speculum: no foreign bodies and No vaginal bleeding Back/Spine/Pelvis Back: no CVA tenderness Skin General skin exam: erythema (irritation to vagina) Wounds: wounds noted (incision appears to be healing well with no evidence of infection) Neuro General: patient alert and patient awake Cognition: normal cognition Speech: speech normal Gait: normal gait Psych Appearance: grossly normal and well kempt Mental Status: mental status grossly normal Speech and Movement: speech and movement normal
[2020-12-07 18:50] VITALS: BP 144/103; PULSE 117; RESP 16; TEMP 36.6; O2SAT 99
[2020-12-07 19:31] LABS: Bilirubin Negative (Negative); Blood Small (Negative); Clarity Clear (Clear); Glucose >=1000 mg/dL (Negative); Ketones Negative (Negative); Leukocyte Esterase Negative (Negative); Nitrite Negative (Negative); Specific Gravity 1.025 (1.005-1.025); Urobilinogen 0.2 EU/dL (Up TO 0.2)
[2020-12-07 19:48] LABS: Bacteria Moderate HPF (Negative); C & S Indicated? Yes; Casts Negative LPF (Negative); Crystals Negative HPF (Negative); Epithelial Cells Few HPF (Negative); Mucus Negative (Negative); RBC 20-50 HPF (0-2); WBC 20-50 HPF (0-5)
--- NOTE | 2020-12-07 19:50 | NUR.NOTE ---
Nursing Note:Chaperoned pelvic exam with Katie MOJICA. Patient stated she had cleaned herself with water and Mag dish soap as she is not yet able to shower r/t her surgical wound. Patient was given 3 packages of Care system wipes to take home. Tolerated exam without difficulty. Extreme care was exercised in positioning patient r/t her neck and mobility restrictions.
[2020-12-07] MEDS: Cephalexin 500 MG CAP, 4 CAPS/BTL PO (20:14)
== END 2020-12-07 20:20 | disposition home or self-care (01) ==
PROVIDERS: Emergency Provider Physician Assistant; PCP Internal Medicine
DX: N39.0 Urinary tract infection, site not specified (principal); B96.89 Other specified bacterial agents as the cause of diseases classified elsewhere; L29.8 Other pruritus
CPT/HCPCS: 99283; 81003; 81015; 87086

== ENCOUNTER 2021-02-02 17:24 | Emergency (ER) | payer MEDICARE, MEDICAID, SELFPAY ==
[2021-02-02] VITALS (8 sets, daily range): BP systolic 129–142; BP diastolic 73–108; PULSE 77–108; RESP 18–20; TEMP 36.4; O2SAT 91–99
--- NOTE | 2021-02-02 17:40 | W.ED.GENAD ---
Discharge Plan Disposition Patient Disposition: HOME Condition: Stable Discharge Details Clinical Impression: Abdominal pain, Pulmonary nodule, Nausea Primary Care Provider: Tom Hay ED Provider: Julio C Thornton Home Meds and New Rx's Prescriptions: New ondansetron 4 mg tablet,disintegrating 4 mg PO Q8H PRN (Reason: nausea and vomiting) Qty: 30 RF: 0 Continued fluoxetine [Prozac] 40 mg Capsule 80 mg PO DAILY RF: 0 alprazolam [Xanax] 1 mg Tablet 1 mg PO TID RF: 0 levothyroxine 300 mcg Tablet 325 mcg PO DAILY RF: 0 aripiprazole [Abilify] 30 mg Tablet 30 mg PO DAILY RF: 0 Trelegy Ellipta 100-62.5-25 mcg Blister With Device 1 inh INHALATION DAILY RF: 0 albuterol sulfate 90 mcg/actuation Aero Powdr Breath Act W/Sensor 2 inh INHALATION Q6H RF: 0 esomeprazole magnesium 40 mg Capsule,Delayed Release(Dr/Ec) 80 mg PO DAILY RF: 0 ondansetron HCl [Zofran] 4 mg tablet 4 mg PO Q8H PRN (Reason: nausea and vomiting) Qty: 10 RF: 0 Ozempic 1 mg/dose (2 mg/1.5 mL) Pen Injector 1 mg SUBCUT DIRECTED RF: 0 insulin aspart U-100 [Novolog Flexpen U-100 Insulin] 100 unit/mL (3 mL) Insulin Pen SUBCUT TID RF: 0 Discharge Instructions Instructions: Hypomagnesemia (ED) Additional Instructions: Your blood work only showed a slight increase in blood glucose and low magnesium. Try to increase your dietary intake of magnesium and have it rechecked with your primary care provider follow up with your primary care provider within 1-2 weeks and let them know of the pulmonary nodule seen on the cat scan as well if you feel more ill, have difficulty breathing, worsening pain or persistent vomit return to the emergency department Medical Decision Making 55 yo female with hx of diabetes, fibromyalgia, who comes in with 5-6 days of right sided upper and lateral abdomen pain worse with eating along with nasusea and vomit and loose stools. She denies having these symptoms in the past and denies chest pain, dyspnea, cough. She has had a hysterectomy and cholecystectomy along with 2 c sections in the past per the patient. She has tenderness in the right mid oblique as well as right upper abdomen. No left sided abdomen pain and no peritoneal signs. She is speaking in full sentences on exam in no distress. Symptoms could be related to food illness vs gastroenteritis but given her pain on exam and number of days with symptoms will obtain labs to evaluate for pancreatitis, hepatitis and also ct to evaluate for colitis vs small bowel obstruction. No pain out of proportion to exam to suggest mesenteric ischemia. labs show mild low mag and elevated glucocse but non anion gap elevation or acidosis. CT shows pulmonary nodule which I informed her of and she is already aware of and no other acute findings. She is sleeping on reassessment with only mild pain to deep palpation in the oblique, no peritoneal signs. Given reassuring workup and evaluation feel she is stable for discharge. She will follow up with her primary care provider and return precautions Differential Diagnosis Differential Diagnosis: hepatitis, food illness, small bowel obstruction, colitis Imaging Data Radiologic Study: Attestation: I personally reviewed and interpreted this imaging study as follows: Imaging: CT Scan Radiologist's impression: IMPRESSION: 1. Pulmonary nodule.For patients at low risk (minimal or absent history of smoking and of other known risk factors), recommend CT Chest at 3-6 months, then consider CT Chest at 18-24 months. For patients at high risk (history of smoking or of other known risk factors), recommend CT Chest at 3-6 months, then CT Chest at 18-24 months. (Reference: Edwin) 2. 3 cm left adrenal nodule measuring 33 Hounsfield units. This is nonspecific. Lab Data Lab results reviewed: Yes I reviewed the patient's lab results. HPI General Mode of arrival: ambulatory. Date/Time Provider Initiated Documentation: 02/02/21 17:25. Limitations to Documentation: no limitations. Information obtained by: patient. History of Present Illness 55 year old F presents to the emergency department with the chief complaint of abdomen pain, described as moderate, and is localized to the abdomen. Patient reports no radiation. Patient started experiencing this day(s) (5) and it has been constant. No relieving factors improve symptom(s), Eating worsens symptoms . Patient notes nausea/vomiting. Patient did receive the following treatments prior to arrival, none Related Data Home Medications Medication Instructions Recorded Confirmed alprazolam [Xanax] 1 mg PO TID 07/19/19 02/02/21 aripiprazole [Abilify] 30 mg PO DAILY 07/19/19 02/02/21 fluoxetine [Prozac] 80 mg PO DAILY 07/19/19 02/02/21 levothyroxine 325 mcg PO DAILY 07/19/19 02/02/21 Ozempic 1 mg SUBCUT DIRECTED 03/08/20 02/02/21 Trelegy Ellipta 1 inh INHALATION DAILY 06/07/20 02/02/21 albuterol sulfate 2 inh INHALATION Q6H 06/07/20 02/02/21 esomeprazole magnesium 80 mg PO DAILY 06/07/20 02/02/21 ondansetron HCl [Zofran] 4 mg PO Q8H PRN #10 tab 06/07/20 02/02/21 insulin aspart U-100 [Novolog unit SUBCUT TID 02/02/21 Flexpen U-100 Insulin] ondansetron 4 mg PO Q8H PRN #30 tab 02/02/21 Previous Rx's Medication Instructions Recorded ondansetron HCl [Zofran] 4 mg PO Q8H PRN #10 tab 06/07/20 ondansetron 4 mg PO Q8H PRN #30 tab 02/02/21 Allergies Allergy/AdvReac Type Severity Reaction Status Date / Time clonidine Allergy Severe nazia Unverified 02/02/21 17:32 adriana syndrome codeine Allergy Itching Unverified 02/02/21 17:32 hydrocodone [From Vicodin] Allergy Itching Unverified 02/02/21 17:32 methadone AdvReac Nausea Unverified 02/02/21 17:32 General Stated Complaint: Abd Prob JOANNE: 3 Review of Systems All systems reviewed & are unremarkable except as noted in HPI and below Constitutional Constitutional: Denies chills, Denies fever(s) and Denies weakness Cardiovascular Cardiovascular: Denies chest pain and Denies dyspnea Respiratory Respiratory: Denies cough and Denies dyspnea Genitourinary Genitourinary: Denies dysuria Musculoskeletal Musculoskeletal: Denies joint swelling Neurologic Neurologic: Denies weakness [facility] Medical History (Updated 02/02/21 @ 19:29 by Julio C Thornton MD) Anxiety Asthma COPD (chronic obstructive pulmonary disease) Depression Diabetes mellitus GERD (gastroesophageal reflux disease) Hypothyroid Surgical History History of cholecystectomy History of hysterectomy Hx of shoulder surgery Social History Smoking/Tobacco Use Status: Current every day Tobacco Type: cigarettes Smoking risk assessment performed?: Yes Alcohol Intake: never Drug use: Daily Substance use type: marijuana Do you feel safe at home: Yes Do you feel safe in your relationship?: Yes Exam Const General: no acute distress Orientation: alert HENMT Head: normal to inspection Ears: external ears normal General nose exam: external nose normal Mouth: moist mucous membranes Eyes General: appearance normal, both eyes and all related structures Neck Neck: normal visual inspection Resp Effort & Inspection: normal respiratory effort and able to speak in complete sentences Cardio Rate: regular rate GI Palpation: soft and tender Skin General skin exam: no rashes or lesions noted Neuro General: patient alert and patient oriented x3 Extrem General: normal to inspection Psych Mental Status: mental status grossly normal Course Vital Signs Vital signs: Vital Signs Temperature 36.4 C L 02/02/21 17:29 Pulse 108 H 02/02/21 17:29 Respiratory Rate 20 02/02/21 17:29 Blood Pressure 129/108 H 02/02/21 17:29 Pulse Oximetry 97 02/02/21 17:29 Temperature 36.4 C L 02/02/21 17:29 Temperature Source Skin 02/02/21 17:29 Pulse 108 H 02/02/21 17:29 Respiratory Rate 20 02/02/21 17:29 Blood Pressure 129/108 H 02/02/21 17:29 Blood Pressure Position Sitting 02/02/21 17:29 Pulse Oximetry 97 02/02/21 17:29 Oxygen Delivery Method Room Air 02/02/21 17:29 Oxygen Flow Rate 0 02/02/21 17:29 Pain Level 9 02/02/21 17:29
[2021-02-02 18:01] LABS: Bilirubin Small (Negative); Blood Trace-intact (Negative); Clarity Clear (Clear); Glucose Negative (Negative); Ketones 15 mg/dL (Negative); Leukocyte Esterase Negative (Negative); Nitrite Negative (Negative); Specific Gravity 1.025 (1.005-1.025); pH 6.5 (5-8)
[2021-02-02] MEDS: Ketorolac 15 MG/ML VIAL IVP (18:08)
[2021-02-02 18:09] LABS: Abs Immature Grans 0.07 10^3/uL (0.0-0.06); Absolute Basophil Count 0.08 10^3/uL (0.0-0.2); Absolute Eosinophil Count 0.14 10^3/uL (0.0-0.7); Absolute Lymphocyte Count 3.23 10^3/uL (1.2-3.4); Absolute Monocyte Count 0.79 10^3/uL (0.1-0.8); BE (Venous) 9 mmol/L (-2-3); Basophils % 0.7; Eosinophils % 1.2; HCO3 (Venous) 32 mmol/L (23-28); HCT 44.7 % (36.0-46.0); HGB 15.3 g/dL (11.2-15.7); Immature Grans % 0.6; Lymphocytes % 27.1; MCH 30.8 pg (27.0-33.0); MCHC 34.2 % (32.0-36.0); MCV 90.1 fL (80-95); MPV 10.1 fL (8.0-11.0); Monocytes % 6.6; Neutrophils % 63.8; Nucleated RBC 0 %; O2 Sat (Venous) 98 %; Platelet Count 325 10^3/uL (130-400); RBC 4.96 10^6/uL (3.93-5.22); RDW 11.8 % (11.7-14.6); RDW-SD 38.6 fL; TCO2 (Venous) 27 mmol/L (24-29); WBC 11.91 10^3/uL (4.4-10.8); pCO2 (Venous) 39 mmHg (41-51); pH (Venous) 7.52 (7.31-7.41); pO2 (Venous) 87 mmHg
[2021-02-02] MEDS: Normal Saline 1,000 ML 1000 ML IV (18:09)
[2021-02-02] MEDS: Ondansetron 4 MG/2 ML VIAL IVP (18:09)
--- NOTE | 2021-02-02 18:22 | DI.CT_ITS ---
EXAM: CT ABDOMEN PELVIS W CLINICAL HISTORY: right sided abdomen pain and vomit. TECHNIQUE: Imaging Protocol: Axial computed tomography images with coronal and sagittal reformatted images were created and reviewed CONTRAST MATERIAL: Intravenous: Omnipaque 100cc Oral: None COMPARISON: CT CT ABDOMEN PELVIS W from 06/07/2020 FINDINGS: VISUALIZED LUNG BASES: There is a noncalcified nodule in the right lower lobe which measures 5 x 6 mi llimeters. This require follow-up. No pleural effusions.. ABDOMEN: There is no ascites. LIVER: There are no focal hepatic lesions evident . GALLBLADDER/BILIARY: The gallbladder surgically absent. CBD is not dilated. PANCREAS: No evidence of pancreatic mass nor dilatation of the pancreatic duct. SPLEEN: Spleen is not enlarged. No obvious intrasplenic lesions. Splenic and portal veins are paten t. ADRENALS: There is a nodule in the left adrenal gland which measures 2.3 by 1.9 by 2.5 cm cephalocaud al. Opposite-right adrenal gland is unremarkable. KIDNEYS:There is a small cyst in superior pole of the left kidney which measures 10 x 10 millimeters. Small cysts seen in the right kidney measuring 10 x 9 millimeters. No renal calculi. No hydroneph rosis. No solid renal masses. . ABDOMINAL AORTA: Abdominal aorta is not enlarged. LYMPH NODES:There is no retroperitineal nor paraaortic adenopathy. ABDOMINAL WALL/GI: No evidence of significant anterior abdominal wall hernia. No bowel obstruction. PELVIS: GI: No evidence of appendicitis.No evidence of sigmoid diverticulitis. LYMPH NODES: There is no intrapelvic nor inguinal adenopathy. REPRODUCTIVE: Uterus is surgically absent. Ovaries appear visualized. No free fluid. URINARY BLADDER: No calculi nor obvious masses evident OSSEOUS: No significant osseous lesions. IMPRESSION: 1. Uppermost images it is abdominal study reveal small 5 x 6 millimeter nodule in the right lower lob e. Unchanged from 06/07/2020. Recommend full chest CT scan follow-up. 2. Left adrenal nodule measuring 2.3 x 1.9 x 2.5 cm, unchanged. Recommend follow-up noninfused MRI w ith in and out of phase chemical shift imaging sequences to determine if this is a benign adenoma or other more concerning pathology. The opposite-right adrenal gland remains unremarkable. 3. Hysterectomy. No ominous adnexal masses. 4. Gallbladder surgically absent. The biliary tree is not dilated. RADIATION DOSE DELIVERED: 1,151.01mGy.cm Total DLP DATA REPOSITORY: All CT scans at this facility are submitted to the National Radiology Data Registry (NRDR) Dose Index Registry (DIR) with the [employer] ([employer]). RADIATION OPTIMIZATION: All CT scans at this facility use at least one of these dose optimization te chniques: automated exposure control; mA and/or kV adjustment per patient size (includes targeted exa ms where dose is matched to clinical indication); or iterative reconstruction.
[2021-02-02 18:31] LABS: Bacteria Moderate HPF (Negative); C & S Indicated? No/Sq. Contamination; Casts Negative LPF (Negative); Crystals Negative HPF (Negative); Epithelial Cells Many HPF (Negative); Mucus Heavy (Negative)
[2021-02-02 18:32] LABS: PTT Activated 21.4 sec (21.0-27.5); Prothrombin Time 10.3 sec (9.3-11.0)
[2021-02-02 18:33] LABS: ALT 24 U/L (14-59); AST 8 U/L (15-37); Albumin 3.8 g/dL (3.4-5.0); Alkaline Phosphatase 101 U/L (46-116); Anion Gap 10.3 mmol/L (3-11); BUN 13 mg/dL (7-18); Bilirubin, Direct 0.2 mg/dL (0.0-0.2); Bilirubin, Total 0.6 mg/dL (0.2-1.0); CO2 29.7 mmol/L (21.0-32.0); CREATININE 0.9 mg/dL (0.55-1.02); Chloride 99 mmol/L (98-107); Glucose 319 mg/dL (74-106); Lipase 80 U/L (73-393); Magnesium 1.5 mg/dL (1.8-2.4); Potassium 3.7 mmol/L (3.5-5.1); Sodium 139 mmol/L (136-145); Total Protein 7.2 g/dL (6.4-8.2)
[2021-02-02] MEDS: Normal Saline - Diluent 50 ML VIAL IV (18:36)
--- NOTE | 2021-02-02 19:22 | DI.VRAD_ITS ---
PROCEDURE INFORMATION: Exam: CT Abdomen And Pelvis With Contrast Exam date and time: 02/02/2021 5:41 PM Age: 55 years old Clinical indication: Flank; Patient HX: Right sided abdominal pain and vomiting. TECHNIQUE: Imaging protocol: Computed tomography of the abdomen and pelvis with contrast. Radiation optimization: All CT scans at this facility use at least one of these dose optimization techniques: automated exposure control; mA and/or kV adjustment per patient size (includes targeted exams where dose is matched to clinical indication); or iterative reconstruction. Contrast material: VISIPAQUE 320; Contrast volume: 100 ml; Contrast route: INTRAVENOUS (IV); COMPARISON: CT ABDOMEN PELVIS W 06/07/2020 2:40 PM FINDINGS: Lungs: 6 mm partially viewed nodule in the posterior segment of the right lower lobe (01/10). Liver: Normal. No mass. Gallbladder and bile ducts: Cholecystectomy. Pancreas: Normal. No ductal dilation. Spleen: Normal. No splenomegaly. Adrenal glands: 3 cm left adrenal nodule measuring 33 Hounsfield units. This is nonspecific. Kidneys and ureters: Normal. No hydronephrosis. Stomach and bowel: Unremarkable. No obstruction. No mucosal thickening. Appendix: No evidence of appendicitis. Intraperitoneal space: Unremarkable. No free air. No significant fluid collection. Vasculature: Atherosclerosis. Lymph nodes: Unremarkable. No enlarged lymph nodes. Urinary bladder: Unremarkable as visualized. Reproductive: Hysterectomy. Bones/joints: Degenerative changes in the spine. Soft tissues: Unremarkable. IMPRESSION: 1. Pulmonary nodule.For patients at low risk (minimal or absent history of smoking and of other known risk factors), recommend CT Chest at 3-6 months, then consider CT Chest at 18-24 months. For patients at high risk (history of smoking or of other known risk factors), recommend CT Chest at 3-6 months, then CT Chest at 18-24 months. (Reference: Edwin) 2. 3 cm left adrenal nodule measuring 33 Hounsfield units. This is nonspecific. REFERENCES: Edwin Garcia, et al. Guidelines for Management of Incidental Pulmonary Nodules Detected on CT Images: From the Fleischner Society 2017. Radiology. 2017;284(1):228-243. Dictated and Authenticated by: Ton Cortez MD. Ordering:PARISA Bunch MD
[2021-02-02] MEDS: Ondansetron O.D.T. 4 MG TABEF, 3 TABS/BTL PO (19:58)
== END 2021-02-02 20:00 | disposition home or self-care (01) ==
PROVIDERS: Emergency Provider Emergency Medicine; PCP Internal Medicine
DX: R10.11 Right upper quadrant pain (principal); R11.2 Nausea with vomiting, unspecified; E11.65 Type 2 diabetes mellitus with hyperglycemia; Z79.4 Long term (current) use of insulin; E83.42 Hypomagnesemia; R91.1 Solitary pulmonary nodule
CPT/HCPCS: 36415; 80053; 82805; 83690; 96361; 96374; 96375; 99285; 74177; 81003; 81015; 82248; 83735; 85025; 85610; 85730; J1885; J2405

== ENCOUNTER 2021-02-09 01:53 | Emergency (ER) | payer MEDICARE, MEDICAID, SELFPAY ==
[2021-02-09 01:56] VITALS: BP 143/96; PULSE 93; RESP 16; TEMP 37.2; O2SAT 99
--- NOTE | 2021-02-09 01:57 | ED.GENADUL_ITS ---
Discharge Plan Disposition Patient Disposition: HOME Condition: Improving Discharge Details Clinical Impression: Nausea and vomiting, Abdominal pain Primary Care Provider: Tom Hay ED Provider: Brad Loredo [place] Meds and New Rx's Prescriptions: New sucralfate 1 gram tablet 1 g PO QACHS Qty: 60 RF: 0 Continued fluoxetine [Prozac] 40 mg Capsule 80 mg PO DAILY RF: 0 alprazolam [Xanax] 1 mg Tablet 1 mg PO TID RF: 0 levothyroxine 300 mcg Tablet 325 mcg PO DAILY RF: 0 aripiprazole [Abilify] 30 mg Tablet 30 mg PO DAILY RF: 0 Trelegy Ellipta 100-62.5-25 mcg Blister With Device 1 inh INHALATION DAILY RF: 0 albuterol sulfate 90 mcg/actuation Aero Powdr Breath Act W/Sensor 2 inh INHALATION Q6H RF: 0 esomeprazole magnesium 40 mg Capsule,Delayed Release(Dr/Ec) 80 mg PO DAILY RF: 0 Ozempic 1 mg/dose (2 mg/1.5 mL) Pen Injector 1 mg SUBCUT DIRECTED RF: 0 insulin aspart U-100 [Novolog Flexpen U-100 Insulin] 100 unit/mL (3 mL) Insulin Pen SUBCUT TID RF: 0 ondansetron 4 mg tablet,disintegrating 4 mg PO Q8H PRN (Reason: nausea and vomiting) Qty: 10 RF: 0 Discontinued ondansetron HCl [Zofran] 4 mg tablet 4 mg PO Q8H PRN (Reason: nausea and vomiting) Qty: 10 RF: 0 Discharge Instructions Instructions: Acute Nausea and Vomiting (ED), Abdominal Pain (ED) Additional Instructions: Repeat laboratory studies look fine. Will prescribe more Zofran as well as restart Carafate which you have been on previously. Continue your other medications. Discontinue Pepto-Bismol. Clear liquid/bland diet for the next few days. Follow-up with primary care next week. Return to ED for new or worsening pain, persistent vomiting, bloody vomiting, chest pain, other concerns. Stand Alone Forms: Work Release Referrals: Tom Hay [Primary Care Provider] - Medical Decision Making 55-year-old female with continued abdominal pain, nausea and vomiting presented because of persistent symptoms. Work-up last week unremarkable. Reports fever at home but is afebrile here. There is no tachycardia or hypotension. She looks well. Her abdomen is completely benign to exam tonight. She denies chest pain or shortness of breath. Will place IV and treat with IV ondansetron, famotidine and oral sucralfate. Repeat laboratory studies and check UA. No repeat imaging of the abdomen Patient better after medications and fluids. No further nausea. Laboratory studies remain unremarkable. Urine reveals no infection. Patient will be discharged home to continue previous medications, but we will add Carafate as well. Repeat prescription for Zofran. Patient requesting work note for today. Follow-up with primary care next week. Return to ED for new or worsening pain, persistent vomiting, hematemesis, chest pain, other concerns. Medical Records Medical records reviewed: Yes I reviewed the patient's medical records. Lab Data Lab results reviewed: Yes I reviewed the patient's lab results. Lab results narrative: Unremarkable labs HPI General Mode of arrival: ambulatory . Date/Time Provider Initiated Documentation: 02/09/21 01:54 . Limitations to Documentation: no limitations . Information obtained by: patient, RN notes reviewed and old records reviewed . HPI Narrative: Patient presents to ED with continued nausea vomiting and right- sided abdominal pain. Patient seen here about a week ago for same. Laboratory studies and CT scan unremarkable. She reports that she has continued to have abdominal pain after eating, nausea and vomiting, reflux. She initially had diarrhea but has been taking Pepto-Bismol [id number] and is now constipated. She does not have any more Zofran. She reports seeing her primary care but was given no specific recommendations other than to use the Zofran. She reports having a fever to 103 tonight. She reports a tension headache. She has history of migraines but this is not as severe. She denies any URI type symptoms. She denies chest pain or shortness of breath. She reports decreased urinary output as well as some dysuria. Abdominal pain does seem to go into the back at times. She returns tonight because she is tired of all the vomiting. Related Data Home Medications Medication Instructions Recorded Confirmed alprazolam [Xanax] 1 mg PO TID 07/19/19 02/09/21 aripiprazole [Abilify] 30 mg PO DAILY 07/19/19 02/09/21 fluoxetine [Prozac] 80 mg PO DAILY 07/19/19 02/09/21 levothyroxine 325 mcg PO DAILY 07/19/19 02/09/21 Ozempic 1 mg SUBCUT DIRECTED 03/08/20 02/09/21 Trelegy Ellipta 1 inh INHALATION DAILY 06/07/20 02/09/21 albuterol sulfate 2 inh INHALATION Q6H 06/07/20 02/09/21 esomeprazole magnesium 80 mg PO DAILY 06/07/20 02/09/21 insulin aspart U-100 [Novolog unit SUBCUT TID 02/02/21 Flexpen U-100 Insulin] ondansetron 4 mg PO Q8H PRN #10 tab 02/09/21 sucralfate 1 g PO QACHS #60 tab 02/09/21 Previous Rx's Medication Instructions Recorded ondansetron 4 mg PO Q8H PRN #10 tab 02/09/21 sucralfate 1 g PO QACHS #60 tab 02/09/21 Allergies Allergy/AdvReac Type Severity Reaction Status Date / Time clonidine Allergy Severe nazia Unverified 02/02/21 17:32 adriana syndrome codeine Allergy Itching Unverified 02/02/21 17:32 hydrocodone [From Vicodin] Allergy Itching Unverified 02/02/21 17:32 methadone AdvReac Nausea Unverified 02/02/21 17:32 General JOANNE: 3 Review of Systems Narrative: As documented in HPI otherwise negative as below. Const: no chills, weakness Resp: no cough, SOB, pleuritic pain CV: no CP, diaphoresis, edema, syncope GI: no diarrhea Neuro: no numbness, focal weakness, confusion [facility] Medical History (Updated 02/09/21 @ 04:02 by Brad Loredo MD) Anxiety Asthma COPD (chronic obstructive pulmonary disease) Depression Diabetes mellitus GERD (gastroesophageal reflux disease) Hypothyroid Surgical History History of cholecystectomy History of hysterectomy Hx of shoulder surgery Social History Smoking/Tobacco Use Status: Current every day Tobacco Type: cigarettes Smoking risk assessment performed?: Yes Alcohol Intake: never Drug use: Daily Substance use type: marijuana Do you feel safe at home: Yes Do you feel safe in your relationship?: Yes Exam Narrative Exam Narrative: Const: WDWN female in NAD. HEENT: NC/AT. Normal facial exam. Eyes: Normal conjunctiva and sclera. Neck: Supple. Trachea midline. Lungs: Normal respiratory effort. Lungs are clear. Cor: RRR without murmur/gallop. Good radial pulses. GI: Soft. NT/ND. No guarding or rebound. No tenderness elicited with palpation tonight. Neuro: A+O x 3. Normal speech, mentation, gait. Cranial nerves II - XII grossly intact. No gross motor or sensory deficit. Ext: No C/C/E. Skin: Warm and dry without rash.
[2021-02-09 02:07] VITALS: RESP 18
[2021-02-09 02:36] LABS: Abs Immature Grans 0.05 10^3/uL (0.0-0.06); Absolute Basophil Count 0.07 10^3/uL (0.0-0.2); Absolute Eosinophil Count 0.31 10^3/uL (0.0-0.7); Absolute Lymphocyte Count 3.33 10^3/uL (1.2-3.4); Absolute Monocyte Count 0.56 10^3/uL (0.1-0.8); Absolute Neutrophil Count 6.18 10^3/uL (1.2-6.7); Basophils % 0.7; HCT 43.3 % (36.0-46.0); HGB 14.4 g/dL (11.2-15.7); Immature Grans % 0.5; Lymphocytes % 31.7; MCH 30.6 pg (27.0-33.0); MCHC 33.3 % (32.0-36.0); MCV 92.1 fL (80-95); MPV 9.9 fL (8.0-11.0); Monocytes % 5.3; Neutrophils % 58.8; Nucleated RBC 0 %; Platelet Count 308 10^3/uL (130-400); RDW 11.8 % (11.7-14.6); RDW-SD 39.9 fL
[2021-02-09] MEDS: Lactated Ringers 1,000 ML 1000 ML IV (02:37)
[2021-02-09] MEDS: FAMOTIDINE 20 MG/50 ML BAG 100 MG IVPB (02:37)
[2021-02-09] MEDS: Ondansetron 4 MG/2 ML VIAL IVP (02:37)
[2021-02-09] MEDS: Sucralfate 1 GM TAB PO (02:38)
[2021-02-09 02:46] LABS: Lipase 111 U/L (73-393); Magnesium 1.6 mg/dL (1.8-2.4)
[2021-02-09 02:51] LABS: ALT 24 U/L (14-59); AST 10 U/L (15-37); Albumin 3.4 g/dL (3.4-5.0); Alkaline Phosphatase 87 U/L (46-116); Anion Gap 9.9 mmol/L (3-11); BUN 9 mg/dL (7-18); Bilirubin, Total 0.3 mg/dL (0.2-1.0); CO2 27.1 mmol/L (21.0-32.0); CREATININE 0.9 mg/dL (0.55-1.02); Calcium 8.9 mg/dL (8.5-10.1); Chloride 105 mmol/L (98-107); Glucose 183 mg/dL (74-106); Potassium 3.9 mmol/L (3.5-5.1); Sodium 142 mmol/L (136-145); Total Protein 6.6 g/dL (6.4-8.2)
[2021-02-09] MEDS: Acetaminophen 500 MG TAB 1000 MG PO (02:52)
[2021-02-09 03:37] LABS: Bilirubin Negative (Negative); Blood Trace-intact (Negative); Clarity Sl Cloudy (Clear); Glucose Negative (Negative); Ketones Negative (Negative); Leukocyte Esterase Small (Negative); Nitrite Negative (Negative); Specific Gravity 1.025 (1.005-1.025); Urobilinogen 0.2 EU/dL (Up TO 0.2); pH 6.5 (5-8)
[2021-02-09 03:51] LABS: Bacteria Moderate HPF (Negative); Crystals Negative HPF (Negative); Epithelial Cells Many HPF (Negative)
[2021-02-09 03:52] LABS: C & S Indicated? No/Sq. Contamination; Casts Negative LPF (Negative); Mucus Moderate (Negative)
== END 2021-02-09 04:10 | disposition home or self-care (01) ==
PROVIDERS: Emergency Provider Emergency Medicine; PCP Internal Medicine
DX: R11.2 Nausea with vomiting, unspecified (principal); R10.9 Unspecified abdominal pain
CPT/HCPCS: 80053; 83690; 96361; 96365; 96375; 99284; 81003; 81015; 83735; 85025; 99283; J2405

== ENCOUNTER 2021-10-18 12:29 | Emergency (ER) | payer MEDICARE, MEDICAID, SELFPAY ==
[2021-10-18 12:36] VITALS: BP 128/83; PULSE 86; RESP 18; TEMP 36.5; O2SAT 98
[2021-10-18 12:37] VITALS: O2SAT 98
--- NOTE | 2021-10-18 12:54 | W.ED.GENAD ---
Discharge Plan Disposition Patient Disposition: HOME Condition: Stable Discharge Details Clinical Impression: Sciatica of right side, COVID-19 Primary Care Provider: Tom Hay ED Provider: Lilly Martinez Home Meds and New Rx's Prescriptions: Continued fluoxetine [Prozac] 40 mg Capsule 80 mg PO DAILY RF: 0 alprazolam [Xanax] 1 mg Tablet 1 mg PO TID RF: 0 levothyroxine 300 mcg Tablet 325 mcg PO DAILY RF: 0 aripiprazole [Abilify] 30 mg Tablet 30 mg PO DAILY RF: 0 Trelegy Ellipta 100-62.5-25 mcg Blister With Device 1 inh INHALATION DAILY RF: 0 esomeprazole magnesium 40 mg Capsule,Delayed Release(Dr/Ec) 80 mg PO DAILY RF: 0 Ozempic 1 mg/dose (2 mg/1.5 mL) Pen Injector 1 mg SUBCUT DIRECTED RF: 0 insulin aspart U-100 [Novolog Flexpen U-100 Insulin] 100 unit/mL (3 mL) Insulin Pen SUBCUT TID RF: 0 sucralfate 1 gram tablet 1 g PO QACHS Qty: 60 RF: 0 No Action albuterol sulfate 90 mcg/actuation Aero Powdr Breath Act W/Sensor 2 inh INHALATION Q6H RF: 0 ondansetron 4 mg tablet,disintegrating 4 mg PO Q8H PRN (Reason: nausea and vomiting) Qty: 10 RF: 0 Discharge Instructions Instructions: Sciatica (ED), Lower Back Exercises (ED), COVID-19 (Coronavirus Disease 2019) (ED) Additional Instructions: Alternate ice and Heat, Use the muscle relaxers as prescribed. Please take Tylenol or Ibuprofen with food every 4-6 hours as needed for pain and swelling. Follow up with primary care provider in 3-5 days. Return to ED sooner if any worsening or concerns. Increase oral fluids. Stand Alone Forms: POSITIVE COVID-19/NO TESTING Referrals: Tom Hay [Primary Care Provider] - 5 days Medical Decision Making 56-year-old female presents to the ER with chief complaint right hip pain which has been ongoing for 2 weeks. Patient states that she fell 2 weeks ago landing on her hands and knees. Since then right hip has been hurting. She reports lower back pain which radiates down into her right thigh. Reports numbness from her knee to her foot. She denies any loss of bowel or bladder control. She states that she states that her mucus is broken. She has been taking 8 mg ibuprofen last taken several hours prior to arrival. She has a past medical history of GERD, diabetes mellitus, depression, COPD, asthma, anxiety, hypothyroidism. She is unvaccinated for Covid and states that she had a fever last night. X-ray L-spine, right hip ordered. Urinalysis. EXAM: XR HIP RT COMPLETE AP PELVIS CLINICAL HISTORY: Right hip pain. TECHNIQUE: 2D digital imaging was performed of the right hip. Two images were obtained. AP pelvis and lateral right hip views were obtained. COMPARISON: No exams were available for comparison FINDINGS: BONES: No acute fracture is present. No bony destructive lesion is seen. JOINTS: No dislocation present. SOFT TISSUE: Normal. Surgical clips are seen in the right pelvis. IMPRESSION: No acute fracture or dislocation. XR L-Spine Complete: FINDINGS: BONES: No fracture or destructive lesion. Vertebral bodies are unremarkable. No facet hypertrophy identified. Small endplate osteophytes are seen at multiple levels. DISKS: Disc space narrowing, endplate sclerosis and endplate osteophytes are seen at T11-T12. Disc heights are otherwise well maintained. ALIGNMENT: Lumbar spinal alignment is within normal limits. No spondylolysis or spondylolisthesis. SOFT TISSUE: Normal. IMPRESSION: Degenerative changes in the spine. Patient sent home with Brenda, discussed strict return instructions. This text was generated using [employer] dictation system, please disregard any oddities of phrase or misspellings. HPI General Mode of arrival: EMS. Date/Time Provider Initiated Documentation: 10/18/21 12:32. Limitations to Documentation: no limitations. Information obtained by: patient, RN notes reviewed and old records reviewed. HPI Narrative: 56-year-old female presents to the ER with chief complaint right hip pain which has been ongoing for 2 weeks. Patient states that she fell 2 weeks ago landing on her hands and knees. Since then right hip has been hurting. She reports lower back pain which radiates down into her right thigh. Reports numbness from her knee to her foot. She denies any loss of bowel or bladder control. She states that she states that her mucus is broken. She has been taking 8 mg ibuprofen last taken several hours prior to arrival. She has a past medical history of GERD, diabetes mellitus, depression, COPD, asthma, anxiety, hypothyroidism. She is unvaccinated for Covid and states that she had a fever last night. Related Data Home Medications Medication Instructions Recorded Confirmed alprazolam [Xanax] 1 mg PO TID 07/19/19 10/18/21 aripiprazole [Abilify] 30 mg PO DAILY 07/19/19 10/18/21 fluoxetine [Prozac] 80 mg PO DAILY 07/19/19 10/18/21 levothyroxine 325 mcg PO DAILY 07/19/19 10/18/21 Ozempic 1 mg SUBCUT DIRECTED 03/08/20 10/18/21 Trelegy Ellipta 1 inh INHALATION DAILY 06/07/20 10/18/21 albuterol sulfate 2 inh INHALATION Q6H 06/07/20 10/18/21 esomeprazole magnesium 80 mg PO DAILY 06/07/20 10/18/21 insulin aspart U-100 [Novolog unit SUBCUT TID 02/02/21 Flexpen U-100 Insulin] ondansetron 4 mg PO Q8H PRN #10 tab 02/09/21 10/18/21 sucralfate 1 g PO QACHS #60 tab 02/09/21 10/18/21 Previous Rx's Medication Instructions Recorded ondansetron 4 mg PO Q8H PRN #10 tab 02/09/21 sucralfate 1 g PO QACHS #60 tab 02/09/21 Allergies Allergy/AdvReac Type Severity Reaction Status Date / Time clonidine Allergy Severe nazia Unverified 10/18/21 12:40 adriana syndrome codeine Allergy Itching Unverified 10/18/21 12:40 hydrocodone [From Vicodin] Allergy Itching Unverified 10/18/21 12:40 methadone AdvReac Nausea Unverified 10/18/21 12:40 General Stated Complaint: Nk/Back Pain JOANNE: 3 Review of Systems Narrative: Constitutional: Negative for weight loss, alert and oriented, well groomed, normal body habitus, appears comfortable. HEENT: Denies trauma, headaches, blurry vision, nasal discharge, sore throat, trouble swallowing. Chest: Denies chest pain, palpitations, irregular rhythm, hypertension. Respiratory: Denies Shortness of breath, cough, hemoptysis. GI: Denies abdominal pain, nausea, vomiting, diarrhea, constipation. : Denies dysuria, hematuria, flank pain, rectal bleeding. Musculoskeletal: Complaining of lower back pain, right hip pain with radiation of pain down to the right anterior thigh. Neuro: Denies dizziness, blurry vision, weakness, syncope, headache or facial numbness. Hematologic: Denies easy bruising, intolerance to heat or cold, hair loss. PFSH All Active Problems (Updated 10/18/21 @ 14:27 by Lilly Martinez) UTI (urinary tract infection) (Acute) Skin irritation (Acute) Abdominal pain (Acute) Pulmonary nodule (Acute) Nausea (Acute) Nausea and vomiting (Acute) Sciatica of right side (Acute) COVID-19 (Acute) Medical History (Updated 10/18/21 @ 14:27 by Lilly Martinez) Anxiety Asthma COPD (chronic obstructive pulmonary disease) Depression Diabetes mellitus GERD (gastroesophageal reflux disease) Hypothyroid Surgical History History of cholecystectomy History of hysterectomy Hx of shoulder surgery Social History Smoking/Tobacco Use Status: Current every day Tobacco Type: cigarettes Smoking risk assessment performed?: Yes Alcohol Intake: never Drug use: Daily Substance use type: marijuana Do you feel safe at home: Yes Do you feel safe in your relationship?: Yes Exam Narrative Exam Narrative: Constitutional: Alert and oriented x3. Appears stated age. Normal body habitus. Head: Normocephalic, no trauma. Eyes: Pupils PERRL, Red reflex noted, EOM's intact. Eyelids symmetrical without lesions, discharge, or swelling. ENT: Bilateral TM's WNL, External ear normal to inspection, no mastoid TTP, swelling, or erythema, Nasal turbinates WNL, no nasal discharge. Normal dentition, Posterior pharynx WNL, no exudate. Chest: RRR, Normal S1, S2, distal pulses intact. Resp: Lungs clear to auscultation bilaterally, no wheezes, rales, or rhonchi. Abdomen: Soft, non-distended, Normoactive bowel sounds all 4 quads. Musculoskeletal: Unable to assess gait, 5/5 strength to all four extremities. Skin: No suspicious rashes or lesions. Capillary refill less than 2 sec. Neurologic: Cranial nerves II-XII intact. Alert and oriented x 3. Motor: No deficits noted. Sensory: Intact bilaterally all 4 extremities. Reflexes: DTR's intact bilaterally.. Hematologic/Lymphatic: No ecchymosis, no lymphadenopathy. Course Vital Signs Vital signs: Vital Signs Temperature 36.5 C 10/18/21 12:36 Pulse 86 10/18/21 12:36 Respiratory Rate 18 10/18/21 12:36 Blood Pressure 128/83 10/18/21 12:36 Pulse Oximetry 98 10/18/21 12:36 Temperature 36.5 C 10/18/21 12:36 Temperature Source Temporal Artery Scan 10/18/21 12:36 Pulse 86 10/18/21 12:36 Respiratory Rate 18 10/18/21 12:36 Respiratory Effort Non-Labored 10/18/21 12:45 Blood Pressure 128/83 10/18/21 12:36 Blood Pressure Position Sitting 10/18/21 12:36 Pulse Oximetry 98 10/18/21 12:36 Oxygen Delivery Method Room Air 10/18/21 12:36 Oxygen Flow Rate 0 10/18/21 12:36 Pain Level 10 10/18/21 12:36
[2021-10-18] MEDS: diazePAM 5 MG TAB PO (13:06)
[2021-10-18] MEDS: Acetaminophen 500 MG TAB 1000 MG PO (13:06)
[2021-10-18 13:18] LABS: Source Nasal/Nares
[2021-10-18 13:21] LABS: Bilirubin Negative (Negative); Blood Small (Negative); Clarity Sl Cloudy (Clear); Glucose 500 mg/dL (Negative); Ketones 15 mg/dL (Negative); Leukocyte Esterase Negative (Negative); Nitrite Negative (Negative); Specific Gravity >= 1.030 (1.005-1.025); Urobilinogen 0.2 EU/dL (Up TO 0.2)
[2021-10-18 13:29] LABS: Bacteria Moderate HPF (Negative); C & S Indicated? No/Sq. Contamination; Casts Negative LPF (Negative); Crystals Negative HPF (Negative); Epithelial Cells Many HPF (Negative); Mucus Heavy (Negative); WBC 0-2 HPF (0-5)
[2021-10-18 14:00] LABS: COVID-19 PCR POSITIVE (Negative)
--- NOTE | 2021-10-18 14:08 | DI.RAD_ITS ---
Exam(s) XR HIP RT COMPLETE AP PELVIS EXAM: XR HIP RT COMPLETE AP PELVIS CLINICAL HISTORY: Right hip pain. TECHNIQUE: 2D digital imaging was performed of the right hip. Two images were obtained. AP pelvis a nd lateral right hip views were obtained. COMPARISON: No exams were available for comparison FINDINGS: BONES: No acute fracture is present. No bony destructive lesion is seen. JOINTS: No dislocation present. SOFT TISSUE: Normal. Surgical clips are seen in the right pelvis. IMPRESSION: No acute fracture or dislocation. DATA REPOSITORY: RADIATION DOSE DELIVERED:
--- NOTE | 2021-10-18 14:11 | DI.RAD_ITS ---
Exam(s) XR LUMBAR SPINE COMPLETE EXAM: XR LUMBAR SPINE COMPLETE CLINICAL HISTORY: Pain. TECHNIQUE: 2D digital imaging was performed of the lumbar spine. Five images were obtained. AP, la teral, right oblique, left oblique and L5-S1 spot views were obtained. COMPARISON: No exams were available for comparison FINDINGS: BONES: No fracture or destructive lesion. Vertebral bodies are unremarkable. No facet hypertrophy manuel ntified. Small endplate osteophytes are seen at multiple levels. DISKS: Disc space narrowing, endplate sclerosis and endplate osteophytes are seen at T11-T12. Disc h eights are otherwise well maintained. ALIGNMENT: Lumbar spinal alignment is within normal limits. No spondylolysis or spondylolisthesis. SOFT TISSUE: Normal. IMPRESSION: Degenerative changes in the spine. DATA REPOSITORY: RADIATION DOSE DELIVERED:
[2021-10-18 14:39] VITALS: BP 157/96; PULSE 99; O2SAT 98
== END 2021-10-18 17:25 | disposition home or self-care (01) ==
LOC: ER 14:46
PROVIDERS: Emergency Provider Registered Nurse Emergency; PCP Internal Medicine
DX: M54.41 Lumbago with sciatica, right side (principal); R50.9 Fever, unspecified; U07.1 COVID-19; M25.551 Pain in right hip; W19.XXXA Unspecified fall, initial encounter
CPT/HCPCS: 87635; 99284; 72110; 73502; 81003; 81015; 99283

== ENCOUNTER 2022-01-21 17:29 | Emergency (ER) | payer MEDICARE, MEDICAID, SELFPAY ==
[2022-01-21 17:40] VITALS: BP 116/85; PULSE 102; RESP 16; TEMP 37.1; O2SAT 97
[2022-01-21] MEDS: Ketorolac 30 MG/ML VIAL IM (18:06)
--- NOTE | 2022-01-21 18:30 | DI.CT_ITS ---
Exam(s) CT CERVICAL SPINE WO EXAM: CT CERVICAL SPINE WO CLINICAL HISTORY: pain in neck. TECHNIQUE: Imaging Protocol: Axial computed tomography images with coronal and sagittal reformatted images were created and reviewed CONTRAST MATERIAL: Noncontrast COMPARISON: No exams were available for comparison FINDINGS: Bones: Prior anterior fusion spanning C5 through C7. C6 disc spacer. Degenerative disc changes, mil d C 4 5 and C7-T1. Facet degenerative changes throughout. Soft Tissues: The soft tissues of the neck are unremarkable. No large disk herniations are identified . IMPRESSION: Postsurgical and degenerative changes. No acute abnormality. RADIATION DOSE DELIVERED: 510.41mGy.cm Total DLP DATA REPOSITORY: All CT scans at this facility are submitted to the National Radiology Data Registry (NRDR) Dose Index Registry (DIR) with the [employer] (ACR). RADIATION OPTIMIZATION: All CT scans at this facility use at least one of these dose optimization te chniques: automated exposure control; mA and/or kV adjustment per patient size (includes targeted exa ms where dose is matched to clinical indication); or iterative reconstruction.
--- NOTE | 2022-01-21 18:45 | NUR.NOTE ---
Nursing Note:Pt c/o pain despite toradol admin. provider in to see pt, pt to DI via stretcher for ordered exams.
--- NOTE | 2022-01-21 19:02 | ED.GENADUL_ITS ---
Discharge Plan Disposition Patient Disposition: HOME Condition: Stable Discharge Details Clinical Impression: Acute neck pain Primary Care Provider: Tom Hay ED Provider: Brain Smith Home Meds and New Rx's Prescriptions: Continued fluoxetine [Prozac] 40 mg Capsule 80 mg PO DAILY 0RF alprazolam [Xanax] 1 mg Tablet 1 mg PO TID 0RF levothyroxine 300 mcg Tablet 325 mcg PO DAILY 0RF aripiprazole [Abilify] 30 mg Tablet 30 mg PO DAILY 0RF Trelegy Ellipta 100-62.5-25 mcg Blister With Device 1 inh INHALATION DAILY 0RF albuterol sulfate 90 mcg/actuation Aero Powdr Breath Act W/Sensor 2 inh INHALATION Q6H 0RF esomeprazole magnesium 40 mg Capsule,Delayed Release(Dr/Ec) 80 mg PO DAILY 0RF Ozempic 1 mg/dose (2 mg/1.5 mL) Pen Injector 1 mg SUBCUT DIRECTED 0RF Rx Instructions: weekly insulin aspart U-100 [Novolog Flexpen U-100 Insulin] 100 unit/mL (3 mL) Insulin Pen SUBCUT TID 0RF sucralfate 1 gram tablet 1 g PO QACHS Qty: 60 0RF ondansetron 4 mg tablet,disintegrating 4 mg PO Q8H PRN (Reason: nausea and vomiting) Qty: 10 0RF Discharge Instructions Additional Instructions: Please use soft cervical collar and avoid any activities that would strain your neck. Use ibuprofen as prescribed. Please contact your spinal specialist to arrange follow-up. Return to the ER immediately for any worsening or new concerning symptoms. Medical Decision Making 1899 --56-year-old female here 1 to 2 months status post cervical corpectomy with pain in her cervical spine over the past 2 hours. Patient is neurologically intact. Plan to treat pain with Toradol IM and obtain CT imaging to evaluate cervical spine. 193 --CT of the cervical spine was interpreted by radiology:IMPRESSION: 1. No acute cervical spine fracture or malalignment. 2. No comparisons were available to evaluate for any change in the postoperative findings of ACDF and C6 corpectomy. No gross evidence for complication although attention to this finding is suggested on close interval follow-up. Consider follow-up MRI for further evaluation of the spinal cord, if clinically indicated. 3. Anterolisthesis of C3 over C4 . Patient was reassessed and notes significant improvement with complete resolution of symptoms. Results were discussed with the patient and I provided a copy of the radiologist report. I encouraged her to call her spinal specialist tomorrow to arrange timely follow-up. I will be discharging her with a soft cervical collar to provide support. I advised her to avoid activities that would strain her neck. She was encouraged to return immediately should she have any worsening or new concerning symptoms. HPI General Mode of arrival: ambulatory . Date/Time Provider Initiated Documentation: 01/21/22 17:54 . Limitations to Documentation: no limitations . Information obtained by: patient . HPI Narrative: 56-year-old female here with chief complaint of neck pain. Patient notes she had a corpectomy cervical spine performed in November without complication. She notes she has been doing well until today. She states over the past 2 hours she feels like she has a pinched nerve in her neck. Pain is now moderate to severe. She took Tylenol 2 hours ago -this has not provided relief. Pain is localized to bilateral neck and radiates into her occipital scalp and into her shoulders bilaterally. She denies associated numbness or tingling. No weakness. Related Data Home Medications Medication Instructions Recorded Confirmed alprazolam 1 mg tablet (Xanax) 1 mg PO TID 07/19/19 01/21/22 aripiprazole 30 mg tablet (Abilify) 30 mg PO DAILY 07/19/19 01/21/22 fluoxetine 40 mg capsule (Prozac) 80 mg PO DAILY 07/19/19 01/21/22 levothyroxine 300 mcg tablet 325 mcg PO DAILY 07/19/19 01/21/22 semaglutide 1 mg/dose (2 mg/1.5 1 mg SUBCUT DIRECTED 03/08/20 01/21/22 mL) subcutaneous pen injector (Ozempic) albuterol sulfate 90 mcg/actuation 2 inh INHALATION Q6H 06/07/20 01/21/22 breath activated powder inhaler,sensor esomeprazole magnesium 40 mg 80 mg PO DAILY 06/07/20 01/21/22 capsule,delayed release fluticasone fur. 100 mcg-umeclid 1 inh INHALATION DAILY 06/07/20 01/21/22 62.5 mcg-vilant 25 mcg inhalat.powder (Trelegy Ellipta) insulin aspart U-100 100 unit/mL unit SUBCUT TID 02/02/21 (3 mL) subcutaneous pen (Novolog Flexpen U-100 Insulin aspart) ondansetron 4 mg disintegrating 4 mg PO Q8H PRN #10 tab 02/09/21 01/21/22 tablet sucralfate 1 gram tablet 1 g PO QACHS #60 tab 02/09/21 01/21/22 Previous Rx's Medication Instructions Recorded ondansetron 4 mg disintegrating 4 mg PO Q8H PRN #10 tab 02/09/21 tablet sucralfate 1 gram tablet 1 g PO QACHS #60 tab 02/09/21 Allergies Allergy/AdvReac Type Severity Reaction Status Date / Time clonidine Allergy Severe nazia Unverified 01/21/22 17:44 adriana syndrome acetaminophen [From Vicodin] Allergy Unverified 01/21/22 17:44 codeine Allergy Itching Unverified 01/21/22 17:44 hydrocodone [From Vicodin] Allergy Itching Unverified 01/21/22 17:44 methadone AdvReac Nausea Unverified 01/21/22 17:44 General Stated Complaint: Nk/Back Pain JOANNE: 3 Review of Systems All systems reviewed & are unremarkable except as noted in HPI and below Constitutional Constitutional: Denies fever(s) Musculoskeletal Musculoskeletal: Reports as per HPI Neurologic Neurologic: Reports as per HPI PFSH All Active Problems (Updated 01/21/22 @ 19:35 by Brain Smith MD) UTI (urinary tract infection) (Acute) Skin irritation (Acute) Abdominal pain (Acute) Pulmonary nodule (Acute) Nausea (Acute) Nausea and vomiting (Acute) COVID-19 (Acute) Acute neck pain (Acute) Medical History (Updated 01/21/22 @ 19:35 by Brain Smith MD) Anxiety Asthma COPD (chronic obstructive pulmonary disease) Depression Diabetes mellitus GERD (gastroesophageal reflux disease) Hypothyroid Surgical History History of cholecystectomy History of hysterectomy Hx of shoulder surgery Social History Smoking/Tobacco Use Status: Current every day Tobacco Type: cigarettes Smoking risk assessment performed?: Yes Alcohol Intake: never Drug use: Daily Substance use type: marijuana Do you feel safe at home: Yes Do you feel safe in your relationship?: Yes Exam Const General: cooperative and no acute distress HENMT Head: normocephalic and atraumatic Mouth: moist mucous membranes Eyes Conjunctivae: normal conjunctivae Sclera: normal sclerae Neck Neck: trachea midline and no anterior neck swelling Resp Auscultation: clear to auscultation bilaterally, no rales, no rhonchi and no wheezes Cardio Rate: regular rate and not tachycardic Rhythm: regular rhythm Back/Spine/Pelvis Cervical Spine: scars present, cervical spinal tenderness (High cervical), No step off deformity and other (no erythema or warmth) Skin General skin exam: no rashes or lesions noted Neuro General: patient alert, patient awake, patient oriented x3 and tone normal Cognition: normal cognition Speech: speech normal Motor: strength 5/5 throughout Sensory Exam: no sensory deficits noted Psych Appearance: grossly normal Affect: anxious affect Course Vital Signs Vital signs: Vital Signs Temperature 37.1 C 01/21/22 17:40 Pulse 102 H 01/21/22 17:40 Respiratory Rate 16 01/21/22 17:40 Blood Pressure 116/85 01/21/22 17:40 Pulse Oximetry 97 01/21/22 17:40 Temperature 37.1 C 01/21/22 17:40 Pulse 102 H 01/21/22 17:40 Respiratory Rate 16 01/21/22 17:40 Respiratory Effort 01/21/22 17:40 Blood Pressure 116/85 01/21/22 17:40 Blood Pressure Position Sitting 01/21/22 17:40 Pulse Oximetry 97 01/21/22 17:40 Oxygen Delivery Method Room Air 01/21/22 17:40 Oxygen Flow Rate 0 01/21/22 17:40 Pain Level 10 01/21/22 18:07
--- NOTE | 2022-01-21 19:22 | DI.VRAD_ITS ---
PROCEDURE INFORMATION: Exam: CT Cervical Spine Without Contrast Exam date and time: 01/21/2022 6:50 PM Age: 56 years old Clinical indication: Neck pain; Prior surgery; Surgery date: 1-6 months; Surgery type: Fusion; Patient HX: Pain after turning neck, no trauma TECHNIQUE: Imaging protocol: Computed tomography images of the cervical spine without contrast. Radiation optimization: All CT scans at this facility use at least one of these dose optimization techniques: automated exposure control; mA and/or kV adjustment per patient size (includes targeted exams where dose is matched to clinical indication); or iterative reconstruction. COMPARISON: CR XR SHOULDER LT COMPLETE 2+V 03/08/2020 12:18 PM FINDINGS: Bones/joints: Straightening of the curvature of the cervical spine. Mild anterolisthesis of C3 over C4 by 2 mm. No vertebral body compression fractures. Postoperative changes C6 corpectomy and anterior hardware fixation from C5-C7 with low-density C6 pacer. No fracture of the posterior or lateral elements. Discs/Spinal canal/Neural foramina: Multilevel chronic degenerative changes of the bilateral facets with severe bilateral C5-C6 and C6-C7 neural foraminal narrowing. Moderate canal stenosis at the postoperative site. Lungs: The visualized bilateral upper lung contreras are clear. Soft tissues: No prevertebral soft tissue swelling. IMPRESSION: 1. No acute cervical spine fracture or malalignment. 2. No comparisons were available to evaluate for any change in the postoperative findings of ACDF and C6 corpectomy. No gross evidence for complication although attention to this finding is suggested on close interval follow-up. Consider follow-up MRI for further evaluation of the spinal cord, if clinically indicated. 3. Anterolisthesis of C3 over C4 . Dictated and Authenticated by: Bethany Mccurdy MD. Ordering:YULI De La Paz MD
[2022-01-21 19:56] VITALS: BP 133/89; PULSE 88; TEMP 37; O2SAT 96
== END 2022-01-21 19:59 | disposition home or self-care (01) ==
PROVIDERS: Emergency Provider Student in an Organized Health Care Education/Training Program; PCP Internal Medicine
DX: M54.2 Cervicalgia (principal); Z98.1 Arthrodesis status; J44.9 Chronic obstructive pulmonary disease, unspecified; E11.9 Type 2 diabetes mellitus without complications
CPT/HCPCS: 96372; 99284; 72125; J1885

== ENCOUNTER 2022-01-25 01:32 | Emergency (ER) | payer MEDICARE, MEDICAID, SELFPAY ==
[2022-01-25] VITALS (56 sets, daily range): BP systolic 102–158; BP diastolic 55–86; PULSE 81–108; RESP 4–33; TEMP 36.5–36.6; O2SAT 88–99
--- NOTE | 2022-01-25 01:45 | RT.EKG_ITS ---
APPROVED REPORT Exam: Resting ECG Reason for Exam: chest pain Patient Location: E HR:85 bpm ECG Measurements Heart Rate 85 AXIS VT 157 P 48 QRSd 88 QRS 25 QT 386 T 76 QTc 459 Conclusion Sinus rhythm...normal P axis, V-rate 60- 99 Abnormal T, consider ischemia, anterior leads...T <-0.20mV, V2-V4 Physician: Sinus rhythm, rate 85, intervals normal, inverted T waves in V1, V2, V3, and V4. Q waves present in lead III. No STEMI. No prior EKGs comparison.
--- NOTE | 2022-01-25 01:45 | DI.RAD_ITS ---
Exam(s) XR PORTABLE CHEST AP EXAM: XR PORTABLE CHEST AP CLINICAL HISTORY: left chest pain, fever, cough, copd. TECHNIQUE: 2D digital imaging was performed. COMPARISON: No exams were available for comparison FINDINGS: Single AP portable view. Cervical fusion plate noted. Heart size is upper normal. The mediastinum is not widened. Lungs are clear. No infiltrates nor obvious pleural effusions. IMPRESSION: No acute pulmonary findings on this single AP portable view of the chest. DATA REPOSITORY: RADIATION DOSE DELIVERED: All CT scans at this facility use at least one of these dose optimization techniques: automated exposure control; mA and/or kV adjustment per patient size (includes targeted e xams where dose is matched to clinical indication); or iterative reconstruction.
--- NOTE | 2022-01-25 01:58 | W.ED.GENAD ---
Discharge Plan Disposition Patient Disposition: [facility] Condition: Stable Discharge Details Clinical Impression: COPD exacerbation, Community acquired pneumonia, Hypoxemia Primary Care Provider: Tom Hay ED Provider: Bhavesh Sherman Home Meds and New Rx's Prescriptions: No Action fluoxetine [Prozac] 40 mg Capsule 80 mg PO DAILY 0RF alprazolam [Xanax] 1 mg Tablet 1 mg PO TID 0RF levothyroxine 300 mcg Tablet 325 mcg PO DAILY 0RF aripiprazole [Abilify] 30 mg Tablet 30 mg PO DAILY 0RF Trelegy Ellipta 100-62.5-25 mcg Blister With Device 1 inh INHALATION DAILY 0RF albuterol sulfate 90 mcg/actuation Aero Powdr Breath Act W/Sensor 2 inh INHALATION Q6H 0RF esomeprazole magnesium 40 mg Capsule,Delayed Release(Dr/Ec) 80 mg PO DAILY 0RF Ozempic 1 mg/dose (2 mg/1.5 mL) Pen Injector 1 mg SUBCUT DIRECTED 0RF Rx Instructions: weekly insulin aspart U-100 [Novolog Flexpen U-100 Insulin] 100 unit/mL (3 mL) Insulin Pen SUBCUT TID 0RF sucralfate 1 gram tablet 1 g PO QACHS Qty: 60 0RF ondansetron 4 mg tablet,disintegrating 4 mg PO Q8H PRN (Reason: nausea and vomiting) Qty: 10 0RF Medical Decision Making This is a 56-year-old female with a past medical history of previous COVID-19, COPD, diabetes mellitus, GERD, previous cholecystectomy, and hysterectomy, who presents today for evaluation of cough, flulike symptoms, for the last 3 days. Patient states that about a week or so ago some other family members have flulike illness, she eventually got back, however her cough and malaise has continued and worsened over the last few days. She admits to pain in her left chest, worse with coughing and breathing, improved with holding her breath. She denies any productivity for cough. She denies any hemoptysis. She does admit to having symptoms like this in the past when she had pneumonia before. She denies a history of cardiac disease or blood clot. She did have a colposcopy 2 months ago, but no other recent surgeries, long trips, or procedures. She is not on any estrogen. She has been taking her Trelegy inhaler and this is slightly improved her symptoms, as well as her albuterol. She denies any other complaints. She has not had a COVID vaccine, but she has had her flu shot. Physical exam demonstrates wheezes throughout, scattered rhonchi. No rales. Diminished breath sounds are present. No calf tenderness. There is reproducible left chest wall tenderness. No rash. Symptoms at this time is certainly appear consistent at the very least with a COPD exacerbation, there is likely a viral or potentially bacterial pneumonia component involved as well. The chest pain seems notably atypical for ACS, but due to her age and risk factors we will evaluate this further. Will give breathing treatments, steroids, chest x-ray, D-dimer, monitor closely and reassess. 4:07 AM Patient's laboratory work-up is returned actually very reassuring. She has no white count bandemia or left shift, electrolytes are stable, troponin is normal. D-dimer is normal. VBG is stable. No evidence of significant respiratory acidosis. Covid, influenza, and RSV testing is negative. On repeat assessment patient does demonstrate improved aeration in the left lung contreras, however she still demonstrates diffuse wheezes, and scattered rhonchi. She states she feels minimally better after breathing treatments. Unfortunately although the patient initially had no hypoxemia when she first arrived shortly thereafter she became slightly hypoxic going down to 87%. She was titrated up to the mid 90s on 3 L of oxygen, we did try to titrate back down on her oxygen use however she quickly went back to the low 90s and high 80s. This was before any fluid was given, clinically the patient does not look like a CHF exacerbation at home. Symptoms inconsistent with significant fluid overload. X-ray results do show evidence of mild interstitial infiltrates, correlates well with the patient's clinical history and symptoms. I do feel that patient demonstrates current evidence of pneumonia in conjunction with COPD exacerbation. We will give 2 g of ceftriaxone and 1 g of azithromycin. We will give 2 additional breathing treatments as well. Unfortunately there are no beds currently available at [facility]. I did contact the hospitalist Dr. Reina, and he is not aware of any expectant discharge's tomorrow morning either. We did contact our [facility], they do have beds available. I spoke with nurse practitioner Keshia, but she stated that she is not seeing a transfer before. She has asked that we discussed the case with the oncoming attending will be available at 7am. She states that she will inform him of the case, and they will call us in the morning. We will keep the patient here until then. 5:12 AM Patient remained stable. Oxygenation remained stable on 2 to 3 L of supplemental O2. Chest pain improved with Toradol Lidoderm patch. Repeat troponin is normal. EKG shows no acute changes from prior EKG earlier tonight. 6:10am Discussed the case with Keshia in the hospitalist Dr. Rosario, they agree with the assessment and plan. Patient will be transferred to [facility]. I have extensively reviewed the treatment plan with the patient. I have addressed all patient concerns at this time. I have also discussed the plan with the admitting physician and they agree with the current assessment and plan and have agreed to assume responsibility for the patient. All parties demonstrate verbal understanding and agreement with our assessment and plan at this time. The documentation in this chart was dictated using [employer] dictation software. Please excuse any dictation errors. EKG 2: 00 Sinus rhythm, rate 85, intervals normal, inverted T waves in V1, V2, V3, and V4. Q waves present in lead III. No STEMI. No prior EKGs comparison. EKG 4: 41 Rate 93, sinus rhythm, persistent inverted T waves in V1 through V5, Q wave unchanged in lead III. No ST elevation or significant ST depression. No STEMI. No significant change from prior EKG at 2 AM. FINDINGS: Tubes, catheters and devices: Monitoring wires noted. Lungs: Mild interstitial prominence noted bilaterally. Pulmonary vessels are not congested. No consolidation. Pleural spaces: Unremarkable. No pleural effusion. No pneumothorax. Heart/Mediastinum: Unremarkable. No cardiomegaly. Bones/joints: Mild thoracic dextroscoliosis. Cervical spine fusion hardware. IMPRESSION: Mild interstitial infiltrates and/or edema. Thank you for allowing us to participate in the care of your patient. Dictated and Authenticated by: Julio C Ramos MD 01/25/2022 3:37 AM Eastern Time ([place] & [place]) HPI General Date/Time Provider Initiated Documentation: 01/25/22 01:40. HPI Narrative: This is a 56-year-old female with a past medical history of previous COVID-19, COPD, diabetes mellitus, GERD, previous cholecystectomy, and hysterectomy, who presents today for evaluation of cough, flulike symptoms, for the last 3 days. Patient states that about a week or so ago some other family members have flulike illness, she eventually got back, however her cough and malaise has continued and worsened over the last few days. She admits to pain in her left chest, worse with coughing and breathing, improved with holding her breath. She denies any productivity for cough. She denies any hemoptysis. She does admit to having symptoms like this in the past when she had pneumonia before. She denies a history of cardiac disease or blood clot. She did have a colposcopy 2 months ago, but no other recent surgeries, long trips, or procedures. She is not on any estrogen. She has been taking her Trelegy inhaler and this is slightly improved her symptoms, as well as her albuterol. She denies any other complaints. She has not had a COVID vaccine, but she has had her flu shot. Related Data Home Medications Medication Instructions Recorded Confirmed alprazolam 1 mg tablet (Xanax) 1 mg PO TID 07/19/19 01/21/22 aripiprazole 30 mg tablet (Abilify) 30 mg PO DAILY 07/19/19 01/21/22 fluoxetine 40 mg capsule (Prozac) 80 mg PO DAILY 07/19/19 01/21/22 levothyroxine 300 mcg tablet 325 mcg PO DAILY 07/19/19 01/21/22 semaglutide 1 mg/dose (2 mg/1.5 1 mg SUBCUT DIRECTED 03/08/20 01/21/22 mL) subcutaneous pen injector (Ozempic) albuterol sulfate 90 mcg/actuation 2 inh INHALATION Q6H 06/07/20 01/21/22 breath activated powder inhaler,sensor esomeprazole magnesium 40 mg 80 mg PO DAILY 06/07/20 01/21/22 capsule,delayed release fluticasone fur. 100 mcg-umeclid 1 inh INHALATION DAILY 06/07/20 01/21/22 62.5 mcg-vilant 25 mcg inhalat.powder (Trelegy Ellipta) insulin aspart U-100 100 unit/mL unit SUBCUT TID 02/02/21 (3 mL) subcutaneous pen (Novolog Flexpen U-100 Insulin aspart) ondansetron 4 mg disintegrating 4 mg PO Q8H PRN #10 tab 02/09/21 01/21/22 tablet sucralfate 1 gram tablet 1 g PO QACHS #60 tab 02/09/21 01/21/22 Previous Rx's Medication Instructions Recorded ondansetron 4 mg disintegrating 4 mg PO Q8H PRN #10 tab 02/09/21 tablet sucralfate 1 gram tablet 1 g PO QACHS #60 tab 02/09/21 Allergies Allergy/AdvReac Type Severity Reaction Status Date / Time clonidine Allergy Severe nazia Unverified 01/25/22 02:17 adriana syndrome acetaminophen [From Vicodin] Allergy Unverified 01/25/22 02:17 codeine Allergy Itching Unverified 01/25/22 02:17 hydrocodone [From Vicodin] Allergy Itching Unverified 01/25/22 02:17 methadone AdvReac Nausea Unverified 01/25/22 02:17 General Stated Complaint: SOB JOANNE: 3 Review of Systems All systems reviewed & are unremarkable except as noted in HPI and below PFSH All Active Problems (Updated 01/25/22 @ 04:12 by Bhavesh Sherman DO) UTI (urinary tract infection) (Acute) Skin irritation (Acute) Abdominal pain (Acute) Pulmonary nodule (Acute) Nausea (Acute) Nausea and vomiting (Acute) COVID-19 (Acute) Acute neck pain (Acute) COPD exacerbation (Acute) Community acquired pneumonia (Acute) Hypoxemia (Acute) Medical History (Updated 01/25/22 @ 04:12 by Bhavesh Sherman DO) Anxiety Asthma COPD (chronic obstructive pulmonary disease) Depression Diabetes mellitus GERD (gastroesophageal reflux disease) Hypothyroid Surgical History History of cholecystectomy History of hysterectomy Hx of shoulder surgery Social History Smoking/Tobacco Use Status: Current every day Tobacco Type: cigarettes Smoking risk assessment performed?: Yes Alcohol Intake: never Drug use: Daily Substance use type: marijuana Do you feel safe at home: Yes Do you feel safe in your relationship?: Yes Exam Narrative Exam Narrative: 1.Const: Well-nourished, Well-developed, appearing stated age 2.Eyes: PERRL, no conjunctival injection, and symmetrical lids. 3.ENT: Atraumatic external nose and ears. Moist MM. Neck: Symmetric, trachea midline, No thyromegaly. 4.CVS: +S1/S2, No murmurs or gallops. Peripheral pulses 2+ and equal in all extremities. Brisk capillary refill in all extremities. Over the left anterior chest. No evidence of rash. 5.RESP: Diminished lung sounds throughout, notable wheezes and rhonchi throughout. No crackles. 6.GI: Soft, Nontender/Nondistended, No hepatosplenomegaly. No guarding or rebound. 7.MSK: Normocephalic/Atraumatic, Extremities w/o deformity or ttp No cyanosis or clubbing, Normal movement of all extremities, no calf tenderness or pitting edema. Reproducible chest wall tenderness 8.Skin: Warm, Dry. No rashes or lesions. 9.Neuro: safety net maker II-XII grossly intact. Sensation grossly intact, no focal neurologic deficits. 10.Psych: (AAO) x3. Appropriate mood and affect Course Vital Signs Vital signs: Vital Signs Temperature 36.5 C 01/25/22 01:39 Pulse 96 H 01/25/22 01:39 Respiratory Rate 18 01/25/22 01:39 Blood Pressure 158/77 H 01/25/22 01:39 Pulse Oximetry 98 01/25/22 01:39 Temperature 36.5 C 01/25/22 01:39 Temperature Source Skin 01/25/22 01:39 Pulse 96 H 01/25/22 01:39 Respiratory Rate 18 01/25/22 01:39 Respiratory Effort Non-Labored 01/25/22 01:43 Blood Pressure 158/77 H 01/25/22 01:39 Pulse Oximetry 98 01/25/22 01:39 Oxygen Delivery Method Room Air 01/25/22 01:39 Oxygen Flow Rate 0 01/25/22 01:39 Pain Level 6 01/25/22 01:39
[2022-01-25] MEDS: Albuterol/Ipratropium 3 ML UPD VIAL 6 ML UPD ×2 (02:18→03:57)
[2022-01-25] MEDS: methylPREDNISolone SUCC 125 MG VIAL IVP (02:20)
[2022-01-25 02:22] LABS: Abs Immature Grans 0.08 10^3/uL (0.0-0.06); Absolute Basophil Count 0.05 10^3/uL (0.0-0.2); Absolute Eosinophil Count 0.29 10^3/uL (0.0-0.7); Absolute Lymphocyte Count 3.34 10^3/uL (1.2-3.4); Absolute Monocyte Count 0.82 10^3/uL (0.1-0.8); Absolute Neutrophil Count 3.59 10^3/uL (1.2-6.7); BE (Venous) 2 mmol/L (-2-3); Basophils % 0.6; Eosinophils % 3.5; HCO3 (Venous) 27 mmol/L (23-28); HCT 42.9 % (36.0-46.0); HGB 14.2 g/dL (11.2-15.7); Lymphocytes % 40.9; MCH 30.6 pg (27.0-33.0); MCHC 33.1 % (32.0-36.0); MCV 92.5 fL (80-95); MPV 10.1 fL (8.0-11.0); O2 Sat (Venous) 96 %; Platelet Count 291 10^3/uL (130-400); RBC 4.64 10^6/uL (3.93-5.22); RDW 12.2 % (11.7-14.6); RDW-SD 41.7 fL; TCO2 (Venous) 24 mmol/L (24-29); WBC 8.17 10^3/uL (4.4-10.8); pCO2 (Venous) 42 mmHg (41-51); pH (Venous) 7.42 (7.31-7.41); pO2 (Venous) 73 mmHg
[2022-01-25 02:50] LABS: ALT 24 U/L (14-59); AST 8 U/L (15-37); Albumin 3.2 g/dL (3.4-5.0); Alkaline Phosphatase 89 U/L (46-116); Anion Gap 8.3 mmol/L (3-11); BUN 8 mg/dL (7-18); Bilirubin, Total 0.3 mg/dL (0.2-1.0); CO2 26.7 mmol/L (21.0-32.0); CREATININE 0.8 mg/dL (0.55-1.02); Calcium 8.6 mg/dL (8.5-10.1); Chloride 102 mmol/L (98-107); Glucose 395 mg/dL (74-106); Potassium 4.2 mmol/L (3.5-5.1); Sodium 137 mmol/L (136-145); Total Protein 6.6 g/dL (6.4-8.2); Troponin I < 50 ng/L (<or=60)
[2022-01-25 03:04] LABS: COVID-19 PCR Negative (Negative); Influenza A PCR Negative (Negative); Influenza B PCR Negative (Negative); RSV PCR Negative (Negative)
[2022-01-25 03:06] LABS: Source Nasopharynx
[2022-01-25 03:11] LABS: D-Dimer 408 ng/mlFEU (<500)
[2022-01-25] MEDS: cefTRIAXone 2 GM/50 ML BAG IVPB (03:34)
[2022-01-25] MEDS: Ketorolac 15 MG/ML VIAL IVP (03:35)
--- NOTE | 2022-01-25 03:38 | DI.VRAD_ITS ---
PROCEDURE INFORMATION: Exam: XR Chest Exam date and time: 01/25/2022 2:43 AM Age: 56 years old Clinical indication: Cough and fever; Chest wall pain; Additional info: Chest pain, fever, cough, copd TECHNIQUE: Imaging protocol: XR of the chest. Views: 1 view. COMPARISON: CT CERVICAL SPINE WO 01/21/2022 6:50 PM FINDINGS: Tubes, catheters and devices: Monitoring wires noted. Lungs: Mild interstitial prominence noted bilaterally. Pulmonary vessels are not congested. No consolidation. Pleural spaces: Unremarkable. No pleural effusion. No pneumothorax. Heart/Mediastinum: Unremarkable. No cardiomegaly. Bones/joints: Mild thoracic dextroscoliosis. Cervical spine fusion hardware. IMPRESSION: Mild interstitial infiltrates and/or edema. Dictated and Authenticated by: Julio C Ramos MD. Ordering:HERON Ospina MD
[2022-01-25] MEDS: Lidocaine 5% Patch 1 PATCH TP (03:39)
--- NOTE | 2022-01-25 03:45 | RT.EKG_ITS ---
APPROVED REPORT Exam: Resting ECG Reason for Exam: chest pain Patient Location: E HR:93 bpm ECG Measurements Heart Rate 93 AXIS ND 152 P 54 QRSd 83 QRS 48 QT 353 T [id number] QTc 440 Conclusion Sinus rhythm...normal P axis, V-rate 60- 99 Physician: Rate 93, sinus rhythm, persistent inverted T waves in V1 through V5, Q wave unchanged in l ead III. No ST elevation or significant ST depression. No STEMI. No significant change from prior EKG at 2 AM.
--- NOTE | 2022-01-25 03:47 | NUR.NOTE ---
Pt persistent desat to 87%, MD aware, pt placed on 2.5L NC. Pt sating 94% on 2.5L NC
[2022-01-25] MEDS: Normal Saline 500 ML IV (03:50)
[2022-01-25] MEDS: AZITHROMYCIN 500 MG in Normal Saline 250 ML 250 MG IVPB (03:58)
[2022-01-25 04:59] LABS: Troponin I < 50 ng/L (<or=60)
== END 2022-01-25 07:43 | disposition short-term general hospital (02) ==
PROVIDERS: Emergency Provider Student in an Organized Health Care Education/Training Program; PCP Internal Medicine
DX: J44.1 Chronic obstructive pulmonary disease with (acute) exacerbation (principal); R09.02 Hypoxemia; J18.9 Pneumonia, unspecified organism; R50.9 Fever, unspecified; R05.9 Cough, unspecified; R07.9 Chest pain, unspecified
CPT/HCPCS: 80053; 82805; 87637; 93005; 94640; 96360; 96365; 96368; 96375; 99285; 71045; 84484; 85025; 85379; 93010; J0456; J1885; J2930; J7620

== ENCOUNTER 2022-02-07 19:42 | Emergency (ER) | payer MEDICARE, MEDICAID, SELFPAY ==
[2022-02-07] VITALS (16 sets, daily range): BP systolic 128–160; BP diastolic 77–104; PULSE 88–106; RESP 13–22; TEMP 36.4; O2SAT 91–99
--- NOTE | 2022-02-07 19:45 | RT.EKG_ITS ---
APPROVED REPORT Exam: Resting ECG Reason for Exam: chest pain Patient Location: E HR:100 bpm ECG Measurements Heart Rate 100 AXIS ND 162 P 51 QRSd 79 QRS 28 QT 344 T 52 QTc 444 Conclusion Sinus tachycardia. Probable left atrial enlargement Abnormal T,, anterior leads...T <-0.20mV, V2-V4, previously 01/25/22
--- NOTE | 2022-02-07 20:00 | DI.RAD_ITS ---
Exam(s) XR PORTABLE CHEST AP EXAM: XR PORTABLE CHEST AP CLINICAL HISTORY: Cough, wheeze TECHNIQUE: 2D digital imaging was performed. COMPARISON: CR,XR XR PORTABLE CHEST AP from 01/25/2022 FINDINGS: LUNGS: Clear. No pleural abnormality seen. HEART: Normal. MEDIASTINUM: Normal. BONES: Hardware in the lower cervical spine. IMPRESSION: No acute pulmonary findings. DATA REPOSITORY: RADIATION DOSE DELIVERED:
--- NOTE | 2022-02-07 20:06 | ED.GENADUL_ITS ---
Discharge Plan Disposition Patient Disposition: HOME Condition: Improving Discharge Details Clinical Impression: Acute bronchitis with bronchospasm, Hyperglycemia Primary Care Provider: Tom Hay ED Provider: Seun Rob Home Meds and New Rx's Prescriptions: New doxycycline hyclate 100 mg capsule 100 mg PO BID 9 Days Qty: 18 0RF Rx Instructions: Do not take with Carafate/sucralfate prednisone 50 mg tablet 50 mg PO DAILY 5 Days Qty: 5 0RF glyburide 2.5 mg tablet 2.5 mg PO DAILY Qty: 30 0RF Continued fluoxetine [Prozac] 40 mg Capsule 80 mg PO DAILY 0RF alprazolam [Xanax] 1 mg Tablet 1 mg PO TID 0RF levothyroxine 300 mcg Tablet 325 mcg PO DAILY 0RF aripiprazole [Abilify] 30 mg Tablet 30 mg PO DAILY 0RF Trelegy Ellipta 100-62.5-25 mcg Blister With Device 1 inh INHALATION DAILY 0RF albuterol sulfate 90 mcg/actuation Aero Powdr Breath Act W/Sensor 2 inh INHALATION Q6H 0RF esomeprazole magnesium 40 mg Capsule,Delayed Release(Dr/Ec) 80 mg PO DAILY 0RF Ozempic 1 mg/dose (2 mg/1.5 mL) Pen Injector 1 mg SUBCUT DIRECTED 0RF Rx Instructions: weekly sucralfate 1 gram tablet 1 g PO QACHS Qty: 60 0RF ondansetron 4 mg tablet,disintegrating 4 mg PO Q8H PRN (Reason: nausea and vomiting) Qty: 10 0RF Discontinued insulin aspart U-100 [Novolog Flexpen U-100 Insulin] 100 unit/mL (3 mL) Insulin Pen SUBCUT TID PRN0RF Discharge Instructions Instructions: Acute Bronchitis (ED), Diabetic Hyperglycemia (ED) Additional Instructions: Please take doxycycline as prescribed until finished. This medication should not be taken at the same time as your sucralfate. Our care managers will arrange a follow-up for you with your primary care for recheck. Take prednisone as prescribed. Please restart glyburide once daily. Return to the emergency department for any acute concerns. Medical Decision Making 56-year-old female with history of diabetes, COPD, presents with cough, co ngestion, increased wheezing and mild shortness of breath at home over 5 to 7 days time. She also notes that her glucose has been high, with a history of previously taking glyburide as well as sliding scale insulin. Patient was seen in this emergency department on January 25 and transferred to [facility] where she states she had breathing treatment and steroids for 3 days time and then was discharged. She states to me that she was not discharged on steroids or antibiotics. She felt well for a few days and now has had approximate 1 week of worsening symptoms. She arrives to the ER oxygenating normally and afebrile, her pulse was slightly elevated at 106 and she has wheezing throughout all lung contreras. Portable chest x-ray reveals atelectatic changes within both lung bases and hyperinflation. Laboratories reveal a white blood cell count of 11, hematocrit 41, platelets 295. Patient had noted some hyperglycemia and indeed has glucose of 4 8. Chemistries otherwise with reassuring electrolytes, magnesium noted to be slightly low at 1.7. Troponin was negative. SARS-CoV-2/influenza/RSV negative. Patient is intolerant of metformin she states. I will place her back on glyburide which she has tolerated in the past. I will also treat her for bronchitis and add a small burst of prednisone. 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 Lab Data Lab results reviewed: Yes I reviewed the patient's lab results. Labs: Laboratory Results - last 24 hr 02/07/22 02/07/22 02/07/22 20:14 20:32 20:32 WBC 11.99 H RBC 4.65 Hgb 14.1 Hct 41.6 MCV 90 MCH 30.3 MCHC 33.9 RDW 12.5 Plt Count 295 MPV 10.7 Immature Gran % 0.7 Neutrophils % 63.0 Lymphocytes % 28.3 Monocytes % 5.6 Eosinophils % 1.7 Basophils % 0.7 Nucleated RBC % 0.0 Absolute Neutrophils 7.55 H Absolute Lymphocytes 3.39 Absolute Monocytes 0.67 Absolute Eosinophils 0.20 Absolute Basophils 0.08 Sodium Cancelled Potassium Cancelled Chloride Cancelled Carbon Dioxide Cancelled Anion Gap Cancelled BUN Cancelled Creatinine Cancelled Estimated GFR/1.73 m2 Cancelled Glucose Cancelled Calcium Cancelled Magnesium Cancelled Total Bilirubin Cancelled AST Cancelled ALT Cancelled Alkaline Phosphatase Cancelled Troponin I Cancelled Total Protein Cancelled Albumin Cancelled COVID-19 Source Nasopharynx SARS-CoV-2 (PCR) Negative Influenza Type A (PCR) Negative Influenza Type B (PCR) Negative RSV (PCR) Negative 02/07/22 21:20 WBC RBC Hgb Hct MCV MCH MCHC RDW Plt Count MPV Immature Gran % Neutrophils % Lymphocytes % Monocytes % Eosinophils % Basophils % Nucleated RBC % Absolute Neutrophils Absolute Lymphocytes Absolute Monocytes Absolute Eosinophils Absolute Basophils Sodium 136 Potassium 3.7 Chloride 101 Carbon Dioxide 26.6 Anion Gap 8.4 BUN 10 Creatinine 0.8 Estimated GFR/1.73 m2 >= 60.00 Glucose 468 H Calcium 8.5 Magnesium 1.7 L Total Bilirubin 0.2 AST 7 L ALT 23 Alkaline Phosphatase 81 Troponin I < 50 Total Protein 6.4 Albumin 3.2 L COVID-19 Source SARS-CoV-2 (PCR) Influenza Type A (PCR) Influenza Type B (PCR) RSV (PCR) Laboratory Results - last 24 hr 02/07/22 02/07/22 02/07/22 20:14 20:32 20:32 WBC 11.99 H RBC 4.65 Hgb 14.1 Hct 41.6 MCV 90 MCH 30.3 MCHC 33.9 RDW 12.5 Plt Count 295 MPV 10.7 Immature Gran % 0.7 Neutrophils % 63.0 Lymphocytes % 28.3 Monocytes % 5.6 Eosinophils % 1.7 Basophils % 0.7 Nucleated RBC % 0.0 Absolute Neutrophils 7.55 H Absolute Lymphocytes 3.39 Absolute Monocytes 0.67 Absolute Eosinophils 0.20 Absolute Basophils 0.08 Sodium Cancelled Potassium Cancelled Chloride Cancelled Carbon Dioxide Cancelled Anion Gap Cancelled BUN Cancelled Creatinine Cancelled Estimated GFR/1.73 m2 Cancelled Glucose Cancelled Calcium Cancelled Magnesium Cancelled Total Bilirubin Cancelled AST Cancelled ALT Cancelled Alkaline Phosphatase Cancelled Troponin I Cancelled Total Protein Cancelled Albumin Cancelled COVID-19 Source Nasopharynx SARS-CoV-2 (PCR) Negative Influenza Type A (PCR) Negative Influenza Type B (PCR) Negative RSV (PCR) Negative HPI General Date/Time Provider Initiated Documentation: 02/07/22 19:43 . Limitations to Documentation: no limitations . Information obtained by: patient . History of Present Illness 56 year old F presents to the emergency department with the chief complaint of Recent admission for URI with bronchospasm, now cough and short of breath, described as moderate, and is localized to the chest. Patient reports no radiation. Patient started experiencing this day(s) and it has been intermittent. improves with No relieving factors improve symptom(s), No exacerbating factors reported . Patient notes cough, shortness of breath and other (Electric-like chest pain with coughing, no chest pain at rest or when not coughing). Patient did receive the following treatments prior to arrival, none Related Data Home Medications Medication Instructions Recorded Confirmed alprazolam 1 mg tablet (Xanax) 1 mg PO TID 07/19/19 01/25/22 aripiprazole 30 mg tablet (Abilify) 30 mg PO DAILY 07/19/19 01/25/22 fluoxetine 40 mg capsule (Prozac) 80 mg PO DAILY 07/19/19 01/25/22 levothyroxine 300 mcg tablet 325 mcg PO DAILY 07/19/19 01/25/22 semaglutide 1 mg/dose (2 mg/1.5 1 mg SUBCUT DIRECTED 03/08/20 01/25/22 mL) subcutaneous pen injector (Real Gravity) albuterol sulfate 90 mcg/actuation 2 inh INHALATION Q6H 06/07/20 01/25/22 breath activated powder inhaler,sensor esomeprazole magnesium 40 mg 80 mg PO DAILY 06/07/20 01/25/22 capsule,delayed release fluticasone fur. 100 mcg-umeclid 1 inh INHALATION DAILY 06/07/20 01/25/22 62.5 mcg-vilant 25 mcg inhalat.powder (Trelegy Ellipta) ondansetron 4 mg disintegrating 4 mg PO Q8H PRN #10 tab 02/09/21 01/25/22 tablet sucralfate 1 gram tablet 1 g PO QACHS #60 tab 02/09/21 01/25/22 doxycycline hyclate 100 mg capsule 100 mg PO BID 9 Days #18 cap 02/07/22 glyburide 2.5 mg tablet 2.5 mg PO DAILY #30 tab 02/07/22 prednisone 50 mg tablet 50 mg PO DAILY 5 Days #5 tab 02/07/22 Previous Rx's Medication Instructions Recorded ondansetron 4 mg disintegrating 4 mg PO Q8H PRN #10 tab 02/09/21 tablet sucralfate 1 gram tablet 1 g PO QACHS #60 tab 02/09/21 doxycycline hyclate 100 mg capsule 100 mg PO BID 9 Days #18 cap 02/07/22 glyburide 2.5 mg tablet 2.5 mg PO DAILY #30 tab 02/07/22 prednisone 50 mg tablet 50 mg PO DAILY 5 Days #5 tab 02/07/22 Allergies Allergy/AdvReac Type Severity Reaction Status Date / Time clonidine Allergy Severe nazia Unverified 02/07/22 19:52 adriana syndrome acetaminophen [From Vicodin] Allergy Unverified 02/07/22 19:52 codeine Allergy Itching Unverified 02/07/22 19:52 hydrocodone [From Vicodin] Allergy Itching Unverified 02/07/22 19:52 methadone AdvReac Nausea Unverified 02/07/22 19:52 General Stated Complaint: Chest Pain JOANNE: 2 Review of Systems Narrative: Not immunized for COVID-19. Cough, congestion, wheezing. Hyperglycemia and currently only taking Ozempic. 8 systems were reviewed and otherwise negative PFSH All Active Problems (Updated 02/07/22 @ 21:49 by Seun Rob MD) UTI (urinary tract infection) (Acute) Skin irritation (Acute) Abdominal pain (Acute) Pulmonary nodule (Acute) Nausea (Acute) Nausea and vomiting (Acute) COVID-19 (Acute) Acute neck pain (Acute) COPD exacerbation (Acute) Community acquired pneumonia (Acute) Hypoxemia (Acute) Acute bronchitis with bronchospasm (Acute) Hyperglycemia (Acute) Medical History (Updated 02/07/22 @ 21:49 by Seun Rob MD) Anxiety Asthma COPD (chronic obstructive pulmonary disease) Depression Diabetes mellitus GERD (gastroesophageal reflux disease) Hypothyroid Surgical History History of cholecystectomy History of hysterectomy Hx of shoulder surgery Social History Smoking/Tobacco Use Status: Current every day Tobacco Type: cigarettes Smoking risk assessment performed?: Yes Alcohol Intake: never Drug use: Daily Substance use type: marijuana Do you feel safe at home: Yes Do you feel safe in your relationship?: Yes Exam Narrative Exam Narrative: GEN: awake, alert, oriented 3. Pleasant, well groomed, interactive. HEAD: Normocephalic, atraumatic ENT: Mucous membranes moist, oropharynx unremarkable, External ear exam unremarkable EYES: PERRL, EOMI NECK: Full ROM, no JESSICA, no menigismus CHEST/RESP: Nontender, bilateral end expiratory wheeze throughout CARDIOVASCULAR: RRR, no murmur, rub ledy. 2+ Rad pulse bilateral ABDOMEN: Soft, nontender, no mass. +Bowel sounds EXT: Full ROM, no edema, no rash Neuro: Grossly normal neurologic exam, conversant, interactive. Psych: Speech fluent, thoughts congruent, affect normal Course Vital Signs Vital signs: Vital Signs Temperature 36.4 C L 02/07/22 19:48 Pulse 106 H 02/07/22 19:48 Respiratory Rate 22 02/07/22 19:48 Blood Pressure 148/88 H 02/07/22 19:48 Pulse Oximetry 98 02/07/22 19:48 Temperature 36.4 C L 02/07/22 19:48 Temperature Source Oral 02/07/22 19:48 Pulse 106 H 02/07/22 19:48 Respiratory Rate 22 02/07/22 19:48 Respiratory Effort 02/07/22 19:54 Blood Pressure 148/88 H 02/07/22 19:48 Pulse Oximetry 98 02/07/22 19:48 Oxygen Delivery Method Room Air 02/07/22 19:48 Oxygen Flow Rate 0 02/07/22 19:48 Pain Level 8 02/07/22 19:48
[2022-02-07] MEDS: Albuterol/Ipratropium 3 ML UPD VIAL UPD (20:23)
[2022-02-07] MEDS: Normal Saline 1,000 ML 1000 ML IV (20:23)
[2022-02-07 20:42] LABS: Abs Immature Grans 0.08 10^3/uL (0.0-0.06); Absolute Basophil Count 0.08 10^3/uL (0.0-0.2); Absolute Lymphocyte Count 3.39 10^3/uL (1.2-3.4); Absolute Monocyte Count 0.67 10^3/uL (0.1-0.8); Basophils % 0.7; Eosinophils % 1.7; HCT 41.6 % (36.0-46.0); HGB 14.1 g/dL (11.2-15.7); Immature Grans % 0.7; Lymphocytes % 28.3; MCH 30.3 pg (27.0-33.0); MCHC 33.9 % (32.0-36.0); MCV 90 fL (80-95); MPV 10.7 fL (8.0-11.0); Monocytes % 5.6; Platelet Count 295 10^3/uL (130-400); RBC 4.65 10^6/uL (3.93-5.22); RDW 12.5 % (11.7-14.6); RDW-SD 41.1 fL; WBC 11.99 10^3/uL (4.4-10.8)
--- NOTE | 2022-02-07 20:43 | DI.VRAD_ITS ---
PROCEDURE INFORMATION: Exam: XR Chest Exam date and time: 02/07/2022 8:08 PM Age: 56 years old Clinical indication: Shortness of breath TECHNIQUE: Imaging protocol: XR of the chest. Views: 1 view. COMPARISON: XR PORTABLE CHEST AP 01/25/2022 2:43 AM FINDINGS: Lungs: Atelectatic changes noted within both lung bases. Bilateral hyperinflation is present. Pleural spaces: There are no pleural effusions present. Heart/Mediastinum: Unremarkable. No cardiomegaly. Bones/joints: Postoperative changes of the lower cervical upper thoracic spine. IMPRESSION: 1. Atelectatic changes noted within both lung bases. 2. Bilateral hyperinflation is present. Dictated and Authenticated by: Wes Hennessy MD. Ordering:CARLEY Kohli MD
[2022-02-07 20:46] LABS: Absolute Neutrophil Count 7.55 10^3/uL (1.2-6.7)
[2022-02-07 21:00] LABS: COVID-19 PCR Negative (Negative); Influenza A PCR Negative (Negative); Influenza B PCR Negative (Negative); RSV PCR Negative (Negative)
[2022-02-07 21:02] LABS: Source Nasopharynx
[2022-02-07 21:38] LABS: ALT 23 U/L (14-59); AST 7 U/L (15-37); Albumin 3.2 g/dL (3.4-5.0); Alkaline Phosphatase 81 U/L (46-116); Anion Gap 8.4 mmol/L (3-11); BUN 10 mg/dL (7-18); Bilirubin, Total 0.2 mg/dL (0.2-1.0); CO2 26.6 mmol/L (21.0-32.0); CREATININE 0.8 mg/dL (0.55-1.02); Calcium 8.5 mg/dL (8.5-10.1); Chloride 101 mmol/L (98-107); Glucose 468 mg/dL (74-106); Magnesium 1.7 mg/dL (1.8-2.4); Potassium 3.7 mmol/L (3.5-5.1); Sodium 136 mmol/L (136-145); Total Protein 6.4 g/dL (6.4-8.2); Troponin I < 50 ng/L (<or=60)
[2022-02-07] MEDS: Doxycycline Hyclate 100 MG, 2 CAPS/BTL PO (21:58)
[2022-02-07] MEDS: glyBURIDE 2.5 MG TAB PO (22:02)
--- NOTE | 2022-02-10 10:44 | CMACTNOTE_ITS ---
- If Service Date Differs Date of service: 02/10/22 Time of Service: 10:44 Care Management Activity Note Joseline is seen in the ED for acute bronchitis with bronchospasm andhyperglycemia. At the request of ED provider, CM notifies patient's PCP of her ED visit and requests their office (Tom Hay MD, [facility] Internal [facility]) contact Joseline directly to schedule a follow-up appointment.
== END 2022-02-07 22:11 | disposition home or self-care (01) ==
PROVIDERS: Emergency Provider Emergency Medicine; PCP Internal Medicine
DX: J20.9 Acute bronchitis, unspecified (principal); E11.65 Type 2 diabetes mellitus with hyperglycemia; R07.9 Chest pain, unspecified; R05.9 Cough, unspecified
CPT/HCPCS: 80053; 87637; 93005; 96360; 96361; 99284; 71045; 83735; 84484; 85025; 93010; J7620

== ENCOUNTER 2022-02-19 22:41 | Emergency (ER) | payer MEDICARE, MEDICAID, SELFPAY ==
[2022-02-19 22:52] VITALS: BP 138/73; PULSE 98; RESP 18; O2SAT 99
--- NOTE | 2022-02-19 23:12 | ED.GENADUL_ITS ---
Discharge Plan Disposition Patient Disposition: HOME Condition: Improving Discharge Details Clinical Impression: Hyperglycemia due to diabetes mellitus Primary Care Provider: Tom Hay ED Provider: Brad Loredo Meds and New Rx's Prescriptions: New insulin lispro 100 unit/mL insulin pen 1 sliding scale dose subcut USEASDIRECTD Qty: 3 0RF Rx Instructions: Check blood sugar before meals. If glucose < 250, no insulin; if glucose 251 - 300 then 2 units; if glucose 301 - 350 then 4 units; if glucose 351 - 400 then 6 units; if glucose 401 - 450 then 8 units; if glucose > 450 then 10 units and call your PCP. Continued fluoxetine [Prozac] 40 mg Capsule 80 mg PO DAILY alprazolam [Xanax] 1 mg Tablet 1 mg PO TID aripiprazole [Abilify] 30 mg Tablet 30 mg PO DAILY Trelegy Ellipta 100-62.5-25 mcg Blister With Device 1 inh INHALATION DAILY albuterol sulfate 90 mcg/actuation Aero Powdr Breath Act W/Sensor 2 inh INHALATION Q6H glyburide 2.5 mg tablet 2.5 mg PO DAILY Qty: 30 0RF tramadol 50 mg tablet 50 mg PO PRN PRN levothyroxine 25 mcg tablet 25 mcg PO DAILY prednisone 50 mg tablet 50 mg PO DAILY Label Comments: TAKE ONE TABLET BY MOUTH EVERY DAY amoxicillin-pot clavulanate 875-125 mg tablet 1 tab PO BID Ozempic 1 mg/dose (2 mg/1.5 mL) Pen Injector 1 mg SUBCUT DIRECTED Rx Instructions: weekly Discharge Instructions Instructions: Diabetic Hyperglycemia (ED) Additional Instructions: Prescription for insulin lispro pen has been sent to your pharmacy. You will need to check your blood sugars 3 times a day with meals and use sliding scale as prescribed. He should continue your Ozempic and your glyburide. Follow-up with primary care for further management of your diabetes. Return to ED for persistently high glucose, mental status change, abdominal pain, vomiting, other concerns. Discharge Data Discharge Date/Time-TO BE ENTERED AT DEPARTURE: 02/20/22 05:20 Medical Decision Making Patient presenting with elevated blood sugars status post discharge from [facility] after treatment for infection. Was discharged on prednisone which she has completed. Is only using Ozempic and gyburide at home but was on insulin in the hospital. IV established and fluids started. Laboratory studies including VBG obtained. Patient's venous pH is normal. Blood sugar is markedly high. Bicarb and anion gap slight. White count just minimally elevated. We will continue management with fluids and have dosed with 15 units of regular subcu insulin. After 2 L of LR and 15 units of regular subcu insulin patient's chemistries normalized though blood sugar still over 500. Repeat dose of regular subcu insulin, 10 units given. Repeat fingerstick 2 hours later down to near 400. Feel patient is safe for discharge. We will begin insulin lispro sliding scale for patient to use before meals as well as continue current diabetic medical management. She will need to follow-up with primary care for further adjustments. Return to ED for mental status changes, vomiting, abdominal pain, uncontrolled sugars, or other concerns. Lab Data Lab results reviewed: Yes I reviewed the patient's lab results. HPI General Mode of arrival: ambulatory . Date/Time Provider Initiated Documentation: 02/19/22 23:12 . Limitations to Documentation: no limitations . Information obtained by: patient and RN notes reviewed . HPI Narrative: Patient presents to the ED with elevated blood sugar. Patient has history of diabetes. Recently discharged from [facility] after pneumonia and dental infection. Still on high-dose steroids which she finished today. Was on insulin in the hospital. Discharged on her outpatient regimen which is Ozempic and glyburide. Report having elevated blood sugars since being home. Has constant thirst and urination. Otherwise feeling better with no fever, chest pain, shortness of breath, vomiting, abdominal pain. Related Data Home Medications Medication Instructions Recorded Confirmed alprazolam 1 mg tablet (Xanax) 1 mg PO TID 07/19/19 02/19/22 aripiprazole 30 mg tablet (Abilify) 30 mg PO DAILY 07/19/19 02/19/22 fluoxetine 40 mg capsule (Prozac) 80 mg PO DAILY 07/19/19 02/19/22 semaglutide 1 mg/dose (2 mg/1.5 1 mg subcut DIRECTED 03/08/20 01/25/22 mL) subcutaneous pen injector (Ozempic) albuterol sulfate 90 mcg/actuation 2 inh inhalation Q6H 06/07/20 02/20/22 breath activated powder inhaler,sensor fluticasone fur. 100 mcg-umeclid 1 inh inhalation DAILY 06/07/20 02/20/22 62.5 mcg-vilant 25 mcg inhalat.powder (Trelegy Ellipta) glyburide 2.5 mg tablet 2.5 mg PO DAILY #30 tabs 02/07/22 02/19/22 amoxicillin 875 mg-potassium 1 tab PO BID 02/19/22 02/19/22 clavulanate 125 mg tablet levothyroxine 25 mcg tablet 25 mcg PO DAILY 02/19/22 02/19/22 prednisone 50 mg tablet 50 mg PO DAILY 02/19/22 02/19/22 tramadol 50 mg tablet 50 mg PO PRN PRN 02/19/22 02/19/22 insulin lispro 100 unit/mL 1 sliding scale dose subcut 02/20/22 subcutaneous pen USEASDIRECTD #3 mL Previous Rx's Medication Instructions Recorded glyburide 2.5 mg tablet 2.5 mg PO DAILY #30 tabs 02/07/22 insulin lispro 100 unit/mL 1 sliding scale dose subcut 02/20/22 subcutaneous pen USEASDIRECTD #3 mL Allergies Allergy/AdvReac Type Severity Reaction Status Date / Time clonidine Allergy Severe nazia Unverified 02/19/22 22:57 adriana syndrome acetaminophen [From Vicodin] Allergy Unverified 02/19/22 22:57 codeine Allergy Itching Unverified 02/19/22 22:57 hydrocodone [From Vicodin] Allergy Itching Unverified 02/19/22 22:57 methadone AdvReac Nausea Unverified 02/19/22 22:57 General Stated Complaint: Diabetes JOANNE: 3 Review of Systems Narrative: 07/25 Review of Systems completed and is negative except as stated above in HPI (Systems reviewed: Const, Eyes, ENT, Resp, CV, GI, , MSK, Skin, Neuro) PFSH All Active Problems (Updated 02/20/22 @ 03:28 by Brad Loredo MD) UTI (urinary tract infection) (Acute) Skin irritation (Acute) Abdominal pain (Acute) Pulmonary nodule (Acute) Nausea (Acute) Nausea and vomiting (Acute) COVID-19 (Acute) Acute neck pain (Acute) COPD exacerbation (Acute) Community acquired pneumonia (Acute) Hypoxemia (Acute) Acute bronchitis with bronchospasm (Acute) Hyperglycemia (Acute) Hyperglycemia due to diabetes mellitus (Acute) Medical History (Updated 02/20/22 @ 03:28 by Brad Loredo MD) Anxiety Asthma COPD (chronic obstructive pulmonary disease) Depression Diabetes mellitus GERD (gastroesophageal reflux disease) Hypothyroid Surgical History History of cholecystectomy History of hysterectomy Hx of shoulder surgery Social History Smoking/Tobacco Use Status: Current every day Tobacco Type: cigarettes Smoking risk assessment performed?: Yes Alcohol Intake: never Drug use: Daily Substance use type: marijuana Do you feel safe at home: Yes Do you feel safe in your relationship?: Yes Exam Narrative Exam Narrative: Const: WDWN female in NAD. HEENT: NC/AT. Normal facial exam. Eyes: Normal conjunctiva and sclera. Neck: Supple. Trachea midline. Lungs: Normal respiratory effort. Lungs are clear. Cor: RRR without murmur/gallop. Good radial pulses. GI: Soft. NT/ND. No guarding or rebound. Neuro: A+O x 3. Normal speech, mentation, gait. Cranial nerves II - XII grossly intact. No gross motor or sensory deficit. Ext: No C/C/E. Skin: Warm and dry without rash. Course Vital Signs Vital signs: Vital Signs Pulse 98 H 02/19/22 22:52 Respiratory Rate 18 02/19/22 22:52 Blood Pressure 138/73 02/19/22 22:52 Pulse Oximetry 99 02/19/22 22:52 Pulse 98 H 02/19/22 22:52 Respiratory Rate 18 02/19/22 22:52 Respiratory Effort 02/19/22 22:57 Blood Pressure 138/73 02/19/22 22:52 Blood Pressure Position Sitting 02/19/22 22:52 Pulse Oximetry 99 02/19/22 22:52 Oxygen Delivery Method Room Air 02/19/22 22:52 Oxygen Flow Rate 0 02/19/22 22:52 Pain Level 4 02/19/22 22:52
[2022-02-19 23:32] LABS: BE (Venous) -6 mmol/L (-2-3); HCO3 (Venous) 20 mmol/L (23-28); O2 Sat (Venous) 98 %; TCO2 (Venous) 18 mmol/L (24-29); pCO2 (Venous) 39 mmHg (41-51); pH (Venous) 7.33 (7.31-7.41); pO2 (Venous) 115 mmHg
[2022-02-19 23:35] LABS: Abs Immature Grans 0.13 10^3/uL (0.0-0.06); Absolute Basophil Count 0.05 10^3/uL (0.0-0.2); Absolute Monocyte Count 0.21 10^3/uL (0.1-0.8); Absolute Neutrophil Count 10.55 10^3/uL (1.2-6.7); Basophils % 0.4; HCT 43.9 % (36.0-46.0); HGB 14.2 g/dL (11.2-15.7); Immature Grans % 1.1; Lymphocytes % 8.1; MCH 30.5 pg (27.0-33.0); MCHC 32.3 % (32.0-36.0); MCV 94 fL (80-95); MPV 10.9 fL (8.0-11.0); Monocytes % 1.8; Neutrophils % 88.6; Platelet Count 328 10^3/uL (130-400); RBC 4.65 10^6/uL (3.93-5.22); RDW 12.7 % (11.7-14.6); WBC 11.91 10^3/uL (4.4-10.8)
[2022-02-19 23:36] LABS: Absolute Lymphocyte Count 0.96 10^3/uL (1.2-3.4)
[2022-02-19 23:39] LABS: Bilirubin Negative (Negative); Blood Trace-intact (Negative); Clarity Clear (Clear); Glucose 500 mg/dL (Negative); Ketones Negative (Negative); Leukocyte Esterase Negative (Negative); Nitrite Negative (Negative); Urobilinogen 0.2 EU/dL (Up TO 0.2)
[2022-02-19] MEDS: Lactated Ringers 1,000 ML 1000 ML IV (23:41)
[2022-02-19 23:47] LABS: Epithelial Cells Few HPF (Negative); Other Cells Few Yeast (Negative); RBC 0-2 HPF (0-2); WBC Negative HPF (0-5)
[2022-02-19 23:48] LABS: Bacteria Negative HPF (Negative); C & S Indicated? No; Crystals Negative HPF (Negative); Mucus Negative (Negative)
[2022-02-19 23:51] LABS: ALT 23 U/L (14-59); AST < 5 U/L (15-37); Albumin 3.5 g/dL (3.4-5.0); Alkaline Phosphatase 98 U/L (46-116); Anion Gap 14.6 mmol/L (3-11); BUN 14 mg/dL (7-18); Bilirubin, Total 0.2 mg/dL (0.2-1.0); CO2 21.4 mmol/L (21.0-32.0); CREATININE 1.6 mg/dL (0.55-1.02); Calcium 8.6 mg/dL (8.5-10.1); Chloride 91 mmol/L (98-107); Estimated GFR 33.59 (mL/min/1.73m2); Potassium 4.8 mmol/L (3.5-5.1); Sodium 127 mmol/L (136-145); Total Protein 7.2 g/dL (6.4-8.2)
[2022-02-20 00:06] LABS: Glucose 886 mg/dL (74-106)
[2022-02-20] MEDS: Insulin REGULAR-Human 100 UNITS/ML UNIT 15 UNITS SC (00:23)
[2022-02-20] MEDS: Lactated Ringers 1,000 ML 1000 ML IV (00:24)
[2022-02-20 02:18] VITALS: BP 131/71; PULSE 85; RESP 18; O2SAT 99
[2022-02-20 02:31] LABS: BE (Venous) 2 mmol/L (-2-3); HCO3 (Venous) 26 mmol/L (23-28); O2 Sat (Venous) 94 %; TCO2 (Venous) 24 mmol/L (24-29); pCO2 (Venous) 42 mmHg (41-51); pH (Venous) 7.41 (7.31-7.41); pO2 (Venous) 65 mmHg
[2022-02-20 02:48] LABS: Anion Gap 8.3 mmol/L (3-11); BUN 13 mg/dL (7-18); CO2 26.7 mmol/L (21.0-32.0); Calcium 8.6 mg/dL (8.5-10.1); Chloride 97 mmol/L (98-107); Estimated GFR 57.78 (mL/min/1.73m2); Potassium 4.1 mmol/L (3.5-5.1); Sodium 132 mmol/L (136-145)
[2022-02-20 03:00] LABS: Glucose 516 mg/dL (74-106)
[2022-02-20] MEDS: Insulin REGULAR-Human 100 UNITS/ML UNIT 10 UNITS SC (03:17)
[2022-02-20 03:44] VITALS: PULSE 78; RESP 18; O2SAT 99
[2022-02-20 05:49] VITALS: PULSE 76; RESP 18; O2SAT 99
== END 2022-02-20 05:20 | disposition home or self-care (01) ==
PROVIDERS: Emergency Provider Emergency Medicine; PCP Internal Medicine
DX: E11.65 Type 2 diabetes mellitus with hyperglycemia (principal)
CPT/HCPCS: 36415; 36416; 80048; 80053; 82805; 82962; 96360; 96372; 99284; 81003; 81015; 83735; 85025

== ENCOUNTER 2022-03-04 20:21 | Emergency (ER) | payer MEDICARE, MEDICAID, SELFPAY ==
[2022-03-04] VITALS (12 sets, daily range): BP systolic 114–140; BP diastolic 74–86; PULSE 75–100; RESP 14–25; TEMP 36.9; O2SAT 100
--- NOTE | 2022-03-04 20:30 | RT.EKG_ITS ---
APPROVED REPORT Exam: Resting ECG Reason for Exam: vomiting Patient Location: E HR:92 bpm ECG Measurements Heart Rate 92 AXIS WY 157 P 55 QRSd 85 QRS 43 QT 359 T 75 QTc 443 Conclusion Sinus rhythm...normal P axis, V-rate 60- 99 PHysician: Rate 92, intervals normal, no significant ST elevation or depression. Q waves present in lead III, inverted T wave present in V1 and V2. No evidence of STEMI. EKG from 02/07/2022 demonstrat es near identical findings. No significant changes.
[2022-03-04] MEDS: Normal Saline 1,000 ML 1000 ML IV (20:48)
[2022-03-04] MEDS: Ondansetron 4 MG/2 ML VIAL (20:58)
[2022-03-04 21:03] LABS: Abs Immature Grans 0.08 10^3/uL (0.0-0.06); Absolute Eosinophil Count 0.13 10^3/uL (0.0-0.7); Absolute Lymphocyte Count 2.84 10^3/uL (1.2-3.4); Absolute Monocyte Count 0.72 10^3/uL (0.1-0.8); Basophils % 0.6; HCT 47.6 % (36.0-46.0); Immature Grans % 0.6; Lymphocytes % 22.5; MCH 30.4 pg (27.0-33.0); MCHC 33.6 % (32.0-36.0); MCV 91 fL (80-95); MPV 10.5 fL (8.0-11.0); Monocytes % 5.7; Neutrophils % 69.6; Platelet Count 329 10^3/uL (130-400); RBC 5.26 10^6/uL (3.93-5.22); RDW 12.4 % (11.7-14.6); RDW-SD 41.2 fL; WBC 12.64 10^3/uL (4.4-10.8)
[2022-03-04 21:07] LABS: BE (Venous) 4 mmol/L (-2-3); HCO3 (Venous) 27 mmol/L (23-28); O2 Sat (Venous) 95 %; TCO2 (Venous) 23 mmol/L (24-29); pCO2 (Venous) 34 mmHg (41-51); pH (Venous) 7.51 (7.31-7.41); pO2 (Venous) 69 mmHg
--- NOTE | 2022-03-04 21:15 | DI.CT_ITS ---
Exam(s) CT CHEST/ABD/PEL WO EXAM: CT CHEST/ABD/PEL WO CLINICAL HISTORY: vomiting, recent pneumonia, cough, dka TECHNIQUE: Imaging Protocol: Axial computed tomography images with coronal and sagittal reformatted images were created and reviewed COMPARISON: CT CT ABDOMEN PELVIS W from 06/07/[address] ABDOMEN PELVIS W from 02/02/2021 FINDINGS: The examination is limited due to patient motion artifact. CHEST: Tracheobronchial tree: Patent where visualized. Pulmonary parenchyma: There is a stable 7 mm nodule in the right lower lobe. It is been stable for 2 years. No follow-up is recommended. No architectural distortion. Mediastinum and [place]: No dominant adenopathy or fluid collection. The esophagus is unremarkable. Thyroid gland: Unremarkable. Pleura: No effusion or pneumothorax. Heart: The heart is not dilated. Mild coronary artery calcification. No pericardial effusion. Aorta: Thoracic aorta non-dilated. Mild atherosclerosis. Lymph nodes: Within normal limits. Bones:Age-appropriate degenerative changes in the thoracic spine. Postsurgical changes in the lower cervical spine. Soft tissues: Unremarkable. ABDOMEN: Liver: Normal density. No measurable mass. Gallbladder and Biliary Tract: Status post cholecystectomy. No significant biliary ductal dilatation . Pancreas: Normal density, no abnormal calcifications or inflammatory process. Spleen: Normal. Adrenals: There is a stable 2.6 cm left adrenal nodule with Hounsfield units of -6. The findings are consistent with an adrenal adenoma. No follow-up is recommended. The right adrenal gland is unrema rkable. Kidneys: Normal size, contour and axis. No radiodense stones or obstructive uropathy. No masses seen. Abdominal Aorta: Abdominal portion non-dilated. Atherosclerosis. Bowel: No obstruction or bowel wall thickening. Appendix is unremarkable. Peritoneal Cavity: No ascites, collection or mesenteric inflammatory response. No free air. Lymph Nodes: Within normal limits. Bones: Unremarkable. Soft Tissues: Unremarkable. PELVIS: Bladder: Symmetric distention, no gross wall thickening. Reproductive Organs: Status post hysterectomy. Lymph Nodes: Within normal limits. Bones: Within normal limits. IMPRESSION: No acute findings in the chest, abdomen or pelvis. RADIATION DOSE DELIVERED: 1,406.77mGy.cm Total DLP 1,406.77mGy.cm Total DLP DATA REPOSITORY: All CT scans at this facility are submitted to the National Radiology Data Registry (NRDR) Dose Index Registry (DIR) with the [employer] (ACR). RADIATION OPTIMIZATION: All CT scans at this facility use at least one of these dose optimization te chniques: automated exposure control; mA and/or kV adjustment per patient size (includes targeted exa ms where dose is matched to clinical indication); or iterative reconstruction.
[2022-03-04 21:27] LABS: Absolute Basophil Count 0.08 10^3/uL (0.0-0.2)
[2022-03-04 21:28] LABS: ALT 23 U/L (14-59); AST 11 U/L (15-37); Albumin 3.5 g/dL (3.4-5.0); Alkaline Phosphatase 96 U/L (46-116); Anion Gap 9.4 mmol/L (3-11); BUN 11 mg/dL (7-18); Bilirubin, Total 0.5 mg/dL (0.2-1.0); CO2 26.6 mmol/L (21.0-32.0); CREATININE 0.7 mg/dL (0.55-1.02); Calcium 9.4 mg/dL (8.5-10.1); Chloride 101 mmol/L (98-107); Glucose 293 mg/dL (74-106); Potassium 3.9 mmol/L (3.5-5.1); Sodium 137 mmol/L (136-145); Total Protein 7.2 g/dL (6.4-8.2); Troponin I < 50 ng/L (<or=60)
[2022-03-04 21:36] LABS: COVID-19 PCR Negative (Negative); Influenza A PCR Negative (Negative); Influenza B PCR Negative (Negative); RSV PCR Negative (Negative)
[2022-03-04 21:43] LABS: Source Nasopharynx
--- NOTE | 2022-03-04 21:43 | DI.VRAD_ITS ---
PROCEDURE INFORMATION: Exam: CT Chest Without Contrast; Diagnostic Exam date and time: 03/04/2022 9:12 PM Age: 56 years old Clinical indication: Patient HX: Vomiting, recent pneumonia, cough, dka TECHNIQUE: Imaging protocol: Diagnostic computed tomography of the chest without contrast. Radiation optimization: All CT scans at this facility use at least one of these dose optimization techniques: automated exposure control; mA and/or kV adjustment per patient size (includes targeted exams where dose is matched to clinical indication); or iterative reconstruction. COMPARISON: 1. XR PORTABLE CHEST AP 02/07/2022 8:[address] ABDOMEN PELVIS W 06/07/2020 2:40 PM FINDINGS: Lungs: 7 mm peripheral nodule in superior segment right lower lobe, unchanged for almost 2 years. Pleural spaces: Unremarkable. No pneumothorax. No pleural effusion. Heart: Unremarkable. No cardiomegaly. No pericardial effusion. Lymph nodes: Unremarkable. No enlarged lymph nodes. Vasculature: Unremarkable. No aortic aneurysm. Bones/joints: Prior lower cervical ACDF. Mild degenerative disc changes in the lower thoracic spine. Soft tissues: Unremarkable. IMPRESSION: Unchanged peripheral 7 mm nodule in the superior segment right lower lobe. No further imaging required. PROCEDURE INFORMATION: Exam: CT Abdomen And Pelvis Without Contrast Exam date and time: 03/04/2022 9:12 PM Age: 56 years old Clinical indication: Patient HX: Vomiting, recent pneumonia, cough, dka TECHNIQUE: Imaging protocol: Computed tomography of the abdomen and pelvis without contrast. Radiation optimization: All CT scans at this facility use at least one of these dose optimization techniques: automated exposure control; mA and/or kV adjustment per patient size (includes targeted exams where dose is matched to clinical indication); or iterative reconstruction. COMPARISON: CT ABDOMEN PELVIS W 02/02/2021 6:15 PM FINDINGS: Liver: Normal. No mass. Gallbladder and bile ducts: Prior cholecystectomy. No biliary duct dilatation. Pancreas: Normal. No ductal dilation. Spleen: Normal. No splenomegaly. Adrenal glands: 24 mm left adrenal benign adenoma. Kidneys and ureters: 10 mm left renal upper pole exophytic cyst is unchanged. Kidneys and ureters are otherwise unremarkable. Stomach and bowel: Unremarkable. No obstruction. No mucosal thickening. Appendix: Normal appendix. Intraperitoneal space: Unremarkable. No free air. No significant fluid collection. Vasculature: Mild calcified atherosclerotic disease. No aneurysm. Multiple pelvic phleboliths. Lymph nodes: Unremarkable. No enlarged lymph nodes. Urinary bladder: Urinary bladder is nondistended. Reproductive: Uterus is absent. No adnexal mass. Bones/joints: Unremarkable. No acute fracture. Soft tissues: Unremarkable. IMPRESSION: 1. No acute abnormality. 2. Benign left adrenal adenoma. No further imaging required. 3. Unchanged left renal cyst. No further imaging required. Dictated and Authenticated by: Marlon Price MD. Ordering:HERON Ospina MD
[2022-03-04] MEDS: Lactated Ringers 1,000 ML 1000 ML IV (22:00)
[2022-03-04] MEDS: Ondansetron 4 MG/2 ML VIAL IVP (22:02)
--- NOTE | 2022-03-04 22:53 | ED.GENADUL_ITS ---
Discharge Plan Disposition Patient Disposition: HOME Condition: Good Discharge Details Clinical Impression: Vomiting, Acute hyperglycemia, Dehydration Primary Care Provider: Tom Hay ED Provider: Bhavesh Sherman Home Meds and New Rx's Prescriptions: No Action fluoxetine [Prozac] 40 mg Capsule 80 mg PO DAILY alprazolam [Xanax] 1 mg Tablet 1 mg PO TID aripiprazole [Abilify] 30 mg Tablet 30 mg PO DAILY Trelegy Ellipta 100-62.5-25 mcg Blister With Device 1 inh INHALATION DAILY albuterol sulfate 90 mcg/actuation Aero Powdr Breath Act W/Sensor 2 inh INHALATION Q6H glyburide 2.5 mg tablet 2.5 mg PO DAILY Qty: 30 0RF tramadol 50 mg tablet 50 mg PO PRN PRN levothyroxine 25 mcg tablet 25 mcg PO DAILY prednisone 50 mg tablet 50 mg PO DAILY Label Comments: TAKE ONE TABLET BY MOUTH EVERY DAY amoxicillin-pot clavulanate 875-125 mg tablet 1 tab PO BID insulin lispro 100 unit/mL insulin pen 1 sliding scale dose subcut USEASDIRECTD Qty: 3 0RF Rx Instructions: Check blood sugar before meals. If glucose < 250, no insulin; if glucose 251 - 300 then 2 units; if glucose 301 - 350 then 4 units; if glucose 351 - 400 then 6 units; if glucose 401 - 450 then 8 units; if glucose > 450 then 10 units and call your PCP. Ozempic 1 mg/dose (2 mg/1.5 mL) Pen Injector 1 mg SUBCUT DIRECTED Rx Instructions: weekly Discharge Instructions Instructions: Dehydration (ED) Additional Instructions: At this time your laboratory work-up is returned and is very reassuring. CT scan showed no significant abnormality that requires emergent intervention in your chest or belly. No evidence of pneumonia. Your COVID/flu/RSV is negative. You likely had another mild virus that is causing the nausea and vomiting. There is currently no signs of diet ketoacidosis. He has been rehydrated with 2 L of normal saline. Please continue to hydrate yourself at home, take the Zofran as needed for nausea. Continue to monitor your blood sugars closely. If you notice any worsening of your symptoms, or any new symptoms such as vomiting, diarrhea, fever, chills, shortness of breath, chest pain, numbness, weakness, or fainting , please return immediately to the emergency department for reevaluation. Please follow up with your primary care provider as soon as possible for reassessment and reevaluation. As always, it was a pleasure participating in your medical care today. Referrals: Tom Hay [Primary Care Provider] - Discharge Data Discharge Date/Time-TO BE ENTERED AT DEPARTURE: 03/04/22 23:57 Medical Decision Making This is a very pleasant 56-year-old female with a past medical history of COPD, anxiety, diabetes mellitus with insulin dependence, GERD, hypothyroidism, cholecystectomy, presents today for evaluation of vomiting. Patient states that over the last day or 2 she has been nauseous with mild achiness in her stomach. She has had multiple episodes of vomiting and has not been able to keep anything down including her pills. She has not taken her insulin. Her blood sugar is also been notably elevated. Her outpatient provider recommended that she come in for further assessment. She denies any hematemesis or diarrhea. She denies any chest pain or short of breath. She denies any numbness tingling or weakness. She denies any other sick contacts. No other complaints at this time. She denies alcohol use. Of note the patient did recently have pneumonia, which she recovered from, and finished taking the antibiotic Augmentin about 3 to 4 days ago. Exam demonstrates mildly dry mucous membranes. Minimal epigastric achiness. Scattered upper respiratory rhonchi which is likely secondary to her resolving pneumonia. We will get imaging of the patient's abdomen secondary to her age and risk factors, will rehydrate, evaluate for signs of DKA, monitor closely and reassess. 11 PM On reassessment patient is feeling much better. She is able to tolerate p.o., her abdominal pain has resolved. She feels well. Laboratory work-up demonstrates minimal white count, no bandemia. VBG shows no acidosis, electrolytes normal, anion gap normal, blood sugar is 290. Patient was rehy drated with 2 L of normal saline. She feels well. Troponin normal, EKG benign. Unchanged from prior EKG. COVID/flu/RSV is negative. CT imaging shows no evidence of significant acute process for the chest or abdomen. No evidence of acute significant surgical abdominal process or pneumonia. Patient stable for discharge. Recommend continued fluids at home, bland diet, and continued insulin administration. We will give a bottle of Zofran for home use. With no evidence of DKA, profound dehydration, HH NK, pancreatitis, or other significant abnormality, I do feel the patient is safe for discharge. I have extensively reviewed the treatment plan and discharge instructions with the patient. I have addressed all patient concerns at this time. The patient was made aware of what symptoms to monitor for that would warrant a return to the emergency department. Discussed the plan with the patient, they demonstrate verbal understanding and agreement with our assessment and plan at this time. The documentation in this chart was dictated using [employer] dictation software. Please excuse any dictation errors. FINDINGS: Lungs: 7 mm peripheral nodule in superior segment right lower lobe, unchanged for almost 2 years. Pleural spaces: Unremarkable. No pneumothorax. No pleural effusion. Heart: Unremarkable. No cardiomegaly. No pericardial effusion. Lymph nodes: Unremarkable. No enlarged lymph nodes. Vasculature: Unremarkable. No aortic aneurysm. Bones/joints: Prior lower cervical ACDF. Mild degenerative disc changes in the lower thoracic spine. Soft tissues: Unremarkable. IMPRESSION: Unchanged peripheral 7 mm nodule in the superior segment right lower lobe. No further imaging required FINDINGS: Liver: Normal. No mass. Gallbladder and bile ducts: Prior cholecystectomy. No biliary duct dilatation. Pancreas: Normal. No ductal dilation. Spleen: Normal. No splenomegaly. Adrenal glands: 24 mm left adrenal benign adenoma. Kidneys and ureters: 10 mm left renal upper pole exophytic cyst is unchanged. Kidneys and ureters are otherwise unremarkable. Stomach and bowel: Unremarkable. No obstruction. No mucosal thickening. Appendix: Normal appendix. Intraperitoneal space: Unremarkable. No free air. No significant fluid collection. Vasculature: Mild calcified atherosclerotic disease. No aneurysm. Multiple pelvic phleboliths. Lymph nodes: Unremarkable. No enlarged lymph nodes. Urinary bladder: Urinary bladder is nondistended. Reproductive: Uterus is absent. No adnexal mass. Bones/joints: Unremarkable. No acute fracture. Soft tissues: Unremarkable. IMPRESSION: 1. No acute abnormality. 2. Benign left adrenal adenoma. No further imaging required. 3. Unchanged left renal cyst. No further imaging required. Thank you for allowing us to participate in the care of your patient. Dictated and Authenticated by: Marlon Price MD 03/04/2022 9:43 PM Eastern Time ([place] & [place]) HPI General Date/Time Provider Initiated Documentation: 03/04/22 20:34 . HPI Narrative: This is a very pleasant 56-year-old female with a past medical history of COPD, anxiety, diabetes mellitus with insulin dependence, GERD, hypothyroidism, cholecystectomy, presents today for evaluation of vomiting. Patient states that over the last day or 2 she has been nauseous with mild achiness in her stomach. She has had multiple episodes of vomiting and has not been able to keep anything down including her pills. She has not taken her insulin. Her blood sugar is also been notably elevated. Her outpatient provider recommended that she come in for further assessment. She denies any hematemesis or diarrhea. She denies any chest pain or short of breath. She denies any numbness tingling or weakness. She denies any other sick contacts. No other complaints at this time. She denies alcohol use. Of note the patient did recently have pneumonia, which she recovered from, and finished taking the antibiotic Augmentin about 3 to 4 days ago. Related Data Home Medications Medication Instructions Recorded Confirmed alprazolam 1 mg tablet (Xanax) 1 mg PO TID 07/19/19 03/04/22 aripiprazole 30 mg tablet (Abilify) 30 mg PO DAILY 07/19/19 03/04/22 fluoxetine 40 mg capsule (Prozac) 80 mg PO DAILY 07/19/19 03/04/22 semaglutide 1 mg/dose (2 mg/1.5 1 mg subcut DIRECTED 03/08/20 03/04/22 mL) subcutaneous pen injector (Ozempic) albuterol sulfate 90 mcg/actuation 2 inh inhalation Q6H 06/07/20 03/04/22 breath activated powder inhaler,sensor fluticasone fur. 100 mcg-umeclid 1 inh inhalation DAILY 06/07/20 03/04/22 62.5 mcg-vilant 25 mcg inhalat.powder (Trelegy Ellipta) glyburide 2.5 mg tablet 2.5 mg PO DAILY #30 tabs 02/07/22 03/04/22 amoxicillin 875 mg-potassium 1 tab PO BID 02/19/22 03/04/22 clavulanate 125 mg tablet levothyroxine 25 mcg tablet 25 mcg PO DAILY 02/19/22 03/04/22 prednisone 50 mg tablet 50 mg PO DAILY 02/19/22 03/04/22 tramadol 50 mg tablet 50 mg PO PRN PRN 02/19/22 03/04/22 insulin lispro 100 unit/mL 1 sliding scale dose subcut 02/20/22 03/04/22 subcutaneous pen USEASDIRECTD #3 mL Previous Rx's Medication Instructions Recorded glyburide 2.5 mg tablet 2.5 mg PO DAILY #30 tabs 02/07/22 insulin lispro 100 unit/mL 1 sliding scale dose subcut 02/20/22 subcutaneous pen USEASDIRECTD #3 mL Allergies Allergy/AdvReac Type Severity Reaction Status Date / Time clonidine Allergy Severe nazia Unverified 02/19/22 22:57 adriana syndrome acetaminophen [From Vicodin] Allergy Unverified 02/19/22 22:57 codeine Allergy Itching Unverified 02/19/22 22:57 hydrocodone [From Vicodin] Allergy Itching Unverified 02/19/22 22:57 methadone AdvReac Nausea Unverified 02/19/22 22:57 General Stated Complaint: Diabetes JOANNE: 2 Review of Systems All systems reviewed & are unremarkable except as noted in HPI and below PFSH All Active Problems UTI (urinary tract infection) (Acute) Skin irritation (Acute) Abdominal pain (Acute) Pulmonary nodule (Acute) Nausea (Acute) Nausea and vomiting (Acute) COVID-19 (Acute) Acute bronchitis with bronchospasm (Acute) Hyperglycemia (Acute) Hyperglycemia due to diabetes mellitus (Acute) Vomiting (Acute) Acute hyperglycemia (Acute) Dehydration (Acute) Medical History Anxiety Asthma COPD (chronic obstructive pulmonary disease) Depression Diabetes mellitus GERD (gastroesophageal reflux disease) Hypothyroid Surgical History History of cholecystectomy History of hysterectomy Hx of shoulder surgery Social History Smoking/Tobacco Use Status: Current every day Tobacco Type: cigarettes Smoking risk assessment performed?: Yes Alcohol Intake: never Drug use: Daily Substance use type: marijuana Do you feel safe at home: Yes Do you feel safe in your relationship?: Yes Exam Narrative Exam Narrative: 1.Const: Well-nourished, Well-developed, appearing stated age 2.Eyes: PERRL, no conjunctival injection, and symmetrical lids. 3.ENT: Atraumatic external nose and ears. Notably dry MM. Neck: Symmetric, trachea midline, No thyromegaly. 4.CVS: +S1/S2, No murmurs or gallops. Peripheral pulses 2+ and equal in all extremities. Brisk capillary refill in all extremities. 5.RESP: Unlabored respiratory effort. Clear to auscultation bilaterally aside for minimal scattered upper respiratory rhonchi. 6.GI: Soft, Nontender/Nondistended, No hepatosplenomegaly. No guarding or rebound. No pain or McBurney's point, negative Houston sign. Minimal generalized achiness. 7.MSK: Normocephalic/Atraumatic, Extremities w/o deformity or ttp No cyanosis or clubbing, Normal movement of all extremities 8.Skin: Warm, Dry. No rashes or lesions. 9.Neuro: carpenter repair II-XII grossly intact. Sensation grossly intact, no focal neurologic deficits. 10.Psych: (AAO) x3. Appropriate mood and affect Course Vital Signs Vital signs: Vital Signs Temperature 36.9 C 03/04/22 20:29 Pulse 100 H 03/04/22 20:29 Respiratory Rate 18 03/04/22 20:29 Blood Pressure 114/74 03/04/22 20:29 Pulse Oximetry 100 03/04/22 20:29 Temperature 36.9 C 03/04/22 20:29 Pulse 100 H 03/04/22 20:29 Respiratory Rate 18 03/04/22 20:29 Respiratory Effort Non-Labored 03/04/22 20:33 Blood Pressure 114/74 03/04/22 20:29 Blood Pressure Position Supine 03/04/22 20:29 Pulse Oximetry 100 03/04/22 20:29 Oxygen Delivery Method Room Air 03/04/22 20:29 Oxygen Flow Rate 0 03/04/22 20:29 Lab/Test Results Lab/Test Results: Laboratory Tests Range/Units 03/04/22 03/04/22 03/04/22 20:42 20:42 20:42 WBC (4.4-10.8) 10^3/uL 12.64 H RBC (3.93-5.22) 10^6/uL 5.26 H Hgb (11.2-15.7) g/dL 16.0 H Hct (36.0-46.0) % 47.6 H MCV (80-95) fL 91 MCH (27.0-33.0) pg 30.4 MCHC (32.0-36.0) % 33.6 RDW (11.7-14.6) % 12.4 Plt Count (130-400) 10^3/uL 329 MPV (8.0-11.0) fL 10.5 Immature Gran % 0.6 Neutrophils % 69.6 Lymphocytes % 22.5 Monocytes % 5.7 Eosinophils % 1.0 Basophils % 0.6 Nucleated RBC % (0.0-0.3) % 0.0 Absolute Neutrophils (1.2-6.7) 10^3/uL 8.80 H Absolute Lymphocytes (1.2-3.4) 10^3/uL 2.84 Absolute Monocytes (0.1-0.8) 10^3/uL 0.72 Absolute Eosinophils (0.0-0.7) 10^3/uL 0.13 Absolute Basophils (0.0-0.2) 10^3/uL 0.08 VBG pH (7.31-7.41) 7.51 H VBG pCO2 (41-51) mmHg 34 L VBG pO2 mmHg 69 VBG HCO3 (23-28) mmol/L 27 VBG Total CO2 (24-29) mmol/L 23 L VBG O2 Saturation % 95 VBG Base Excess (-2-3) mmol/L 4 H Sodium (136-145) mmol/L 137 Potassium (3.5-5.1) mmol/L 3.9 Chloride (98-107) mmol/L 101 Carbon Dioxide (21.0-32.0) mmol/L 26.6 Anion Gap (3-11) mmol/L 9.4 BUN (7-18) mg/dL 11 Creatinine (0.55-1.02) mg/dL 0.7 Estimated GFR/1.73 m2 (mL/min/1.73m2) >= 60.00 Glucose (74-106) mg/dL 293 H Calcium (8.5-10.1) mg/dL 9.4 Total Bilirubin (0.2-1.0) mg/dL 0.5 AST (15-37) U/L 11 L ALT (14-59) U/L 23 Alkaline Phosphatase (46-116) U/L 96 Troponin I (<or=60) ng/L < 50 Total Protein (6.4-8.2) g/dL 7.2 Albumin (3.4-5.0) g/dL 3.5 COVID-19 Source SARS-CoV-2 (PCR) (Negative) Influenza Type A (PCR) (Negative) Influenza Type B (PCR) (Negative) RSV (PCR) (Negative) Range/Units 03/04/22 20:51 WBC (4.4-10.8) 10^3/uL RBC (3.93-5.22) 10^6/uL Hgb (11.2-15.7) g/dL Hct (36.0-46.0) % MCV (80-95) fL MCH (27.0-33.0) pg MCHC (32.0-36.0) % RDW (11.7-14.6) % Plt Count (130-400) 10^3/uL MPV (8.0-11.0) fL Immature Gran % Neutrophils % Lymphocytes % Monocytes % Eosinophils % Basophils % Nucleated RBC % (0.0-0.3) % Absolute Neutrophils (1.2-6.7) 10^3/uL Absolute Lymphocytes (1.2-3.4) 10^3/uL Absolute Monocytes (0.1-0.8) 10^3/uL Absolute Eosinophils (0.0-0.7) 10^3/uL Absolute Basophils (0.0-0.2) 10^3/uL VBG pH (7.31-7.41) VBG pCO2 (41-51) mmHg VBG pO2 mmHg VBG HCO3 (23-28) mmol/L VBG Total CO2 (24-29) mmol/L VBG O2 Saturation % VBG Base Excess (-2-3) mmol/L Sodium (136-145) mmol/L Potassium (3.5-5.1) mmol/L Chloride (98-107) mmol/L Carbon Dioxide (21.0-32.0) mmol/L Anion Gap (3-11) mmol/L BUN (7-18) mg/dL Creatinine (0.55-1.02) mg/dL Estimated GFR/1.73 m2 (mL/min/1.73m2) Glucose (74-106) mg/dL Calcium (8.5-10.1) mg/dL Total Bilirubin (0.2-1.0) mg/dL AST (15-37) U/L ALT (14-59) U/L Alkaline Phosphatase (46-116) U/L Troponin I (<or=60) ng/L Total Protein (6.4-8.2) g/dL Albumin (3.4-5.0) g/dL COVID-19 Source Nasopharynx SARS-CoV-2 (PCR) (Negative) Negative Influenza Type A (PCR) (Negative) Negative Influenza Type B (PCR) (Negative) Negative RSV (PCR) (Negative) Negative
[2022-03-04] MEDS: ACETAMINOPHEN 1,000 MG/100 ML BTL 400 MG IVPB (23:06)
[2022-03-04 23:18] LABS: Lipase 118 U/L (73-393)
[2022-03-04] MEDS: Ondansetron O.D.T. 4 MG TABEF, 3 TABS/BTL PO (23:50)
[2022-03-05] VITALS: BP 140/86; PULSE 75; RESP 18; TEMP 36.9; O2SAT 100
== END 2022-03-04 23:57 | disposition home or self-care (01) ==
PROVIDERS: Emergency Provider Student in an Organized Health Care Education/Training Program; PCP Internal Medicine
DX: R11.10 Vomiting, unspecified (principal); E11.65 Type 2 diabetes mellitus with hyperglycemia; E86.0 Dehydration
CPT/HCPCS: 36415; 36416; 71250; 80053; 82805; 82962; 83690; 87637; 93005; 96361; 96365; 96375; 99284; 74176; 84484; 85025; 93010; J0131; J2405

== ENCOUNTER 2022-04-26 12:46 | Outpatient (REF) | payer MEDICARE, MEDICAID, SELFPAY ==
[2022-04-26 17:05] LABS: Bilirubin Negative (Negative); Blood Trace-intact (Negative); Clarity Clear (Clear); Glucose Negative (Negative); Ketones Negative (Negative); Leukocyte Esterase Negative (Negative); Nitrite Negative (Negative); Urobilinogen 0.2 EU/dL (Up TO 0.2)
[2022-04-26 17:16] LABS: Bacteria Moderate HPF (Negative); Crystals Negative HPF (Negative); Epithelial Cells Few HPF (Negative); Mucus Trace (Negative); RBC 0-2 HPF (0-2)
[2022-04-26 17:17] LABS: C & S Indicated? C&S Done As Ordered
[2022-04-28 14:11] LABS: COVID-19 RT-PCR UVMMC Result Negative (Negative)
== END 2022-04-26 12:47 | disposition home or self-care (01) ==
LOC: LBN 12:46
PROVIDERS: PCP Internal Medicine; Visit Provider Physician Assistant Medical
DX: N39.0 Urinary tract infection, site not specified (principal); J32.9 Chronic sinusitis, unspecified
CPT/HCPCS: 87077; U0003; 81003; 81015; 87086; 87186

== ENCOUNTER 2022-05-30 16:54 | Emergency (ER) | payer MEDICARE, MEDICAID, SELFPAY ==
[2022-05-30 16:58] VITALS: BP 133/92; PULSE 103; TEMP 36.4; O2SAT 99
--- NOTE | 2022-05-30 17:45 | DI.RAD_ITS ---
Exam(s) XR KNEE LT 3V AP,LAT,JORGE EXAM: XR KNEE LT 3V AP,LAT,JORGE CLINICAL HISTORY: left knee injury TECHNIQUE: COMPARISON: No exams were available for comparison FINDINGS: Three views were obtained. There is no evidence of acute fracture or dislocation. IMPRESSION: RADIATION DOSE DELIVERED: Total DLP
--- NOTE | 2022-05-30 17:45 | DI.RAD_ITS ---
Exam(s) XR WRIST RT COMPLETE EXAM: XR WRIST RT COMPLETE CLINICAL HISTORY: pain post fall TECHNIQUE: COMPARISON: No exams were available for comparison FINDINGS: Three views were obtained. There is no evidence of an acute fracture or dislocation. IMPRESSION: RADIATION DOSE DELIVERED: Total DLP
--- NOTE | 2022-05-30 17:45 | DI.RAD_ITS ---
Exam(s) XR ELBOW RT COMPLETE EXAM: XR ELBOW RT COMPLETE CLINICAL HISTORY: pain, post fall TECHNIQUE: COMPARISON: CR XR ELBOW LT COMPLETE from 03/08/2020 FINDINGS: Four views were obtained. There is no evidence of an elbow joint effusion or hemarthrosis. There is a question of slight deformity of the radial head and neck, possibility of nondisplaced fracture is raised. Follow-up films in 10-[address] of the elbow recommended for further evaluation. IMPRESSION: RADIATION DOSE DELIVERED: Total DLP
[2022-05-30] MEDS: oxyCODONE 5 MG TAB PO (18:26)
--- NOTE | 2022-05-30 19:05 | DI.VRAD_ITS ---
PROCEDURE INFORMATION: Exam: XR Left Knee Exam date and time: 05/30/2022 6:34 PM Age: 56 years old Clinical indication: Injury or trauma; Blunt trauma; Injury date: 05/30/22; Injury details: Fall, left knee pain TECHNIQUE: Imaging protocol: Radiologic exam of the Left knee. Views: 3 views. COMPARISON: No relevant prior studies available. FINDINGS: Bones/joints: Normal. Soft tissues: Normal. IMPRESSION: No acute findings. Dictated and Authenticated by: Narciso Yuen MD. Ordering:INES Gomez MD
--- NOTE | 2022-05-30 19:07 | DI.VRAD_ITS ---
PROCEDURE INFORMATION: Exam: XR Right Elbow Exam date and time: 05/30/2022 6:39 PM Age: 56 years old Clinical indication: Other: Pain, post fall TECHNIQUE: Imaging protocol: Radiologic exam of the Right elbow. Views: 3 or more views. COMPARISON: CR XR WRIST RT COMPLETE 05/30/2022 6:37 PM FINDINGS: Bones/joints: Small elbow joint effusion. Minimal cortical irregularity involving the ulnar aspect of the radial head neck junction, best visualized on oblique view, possibly nondisplaced fracture. No dislocation. Soft tissues: Normal. IMPRESSION: 1. Minimal cortical irregularity involving the ulnar aspect of the radial head neck junction, best visualized on oblique view, possibly nondisplaced fracture. 2. Small elbow joint effusion. Dictated and Authenticated by: Narciso Yuen MD. Ordering:INES Gomez MD
--- NOTE | 2022-05-30 19:09 | DI.VRAD_ITS ---
PROCEDURE INFORMATION: Exam: XR Right Wrist Exam date and time: 05/30/2022 6:37 PM Age: 56 years old Clinical indication: Other: Pain post fall TECHNIQUE: Imaging protocol: Radiologic exam of the Right wrist. Views: 3 or more views. COMPARISON: No relevant prior studies available. FINDINGS: Bones/joints: Mild degenerative narrowing of the triscaphe joint. No acute fracture or dislocation. Mild degenerative changes of the 1st MCP and thumb interphalangeal joint. Soft tissues: Normal. IMPRESSION: No acute fracture or dislocation. Dictated and Authenticated by: Narciso Yuen MD. Ordering:INES Gomez MD
--- NOTE | 2022-05-30 19:30 | DI.CT_ITS ---
Exam(s) CT LUMBAR SPINE WO EXAM: CT LUMBAR SPINE WO CLINICAL HISTORY: pain post fall, paresthesias 1st and 2nd digit TECHNIQUE: COMPARISON: No exams were available for comparison FINDINGS: CT examination of the lumbosacral spine was performed according to the usual protocol. There is no e vidence of acute fracture or dislocation. There are hypertrophic facet changes particularly at L3-4 and L4-5. At L4-5 level, there is prominent disc bulge or broad-based disc herniation. There appear s to be narrowing of the spinal canal and probably the neural foramina at this level as well. No other significant disc lesion or spinal stenosis identified. IMPRESSION: The appearance is suggestive disc bulge and/or broad-based disc herniation at L4-5 with mild cyst sec ondary spinal stenosis with contributions from facet hypertrophic changes. Additional evaluation with lumbar spine MRI is recommended for more accurate evaluation of the findin gs at this level. RADIATION DOSE DELIVERED: 602.06mGy.cm Total DLP !Error CTDIvol DATA REPOSITORY: All CT scans at this facility are submitted to the National Radiology Data Registry (NRDR) Dose Index Registry (DIR) with the [employer] (ACR). RADIATION OPTIMIZATION: All CT scans at this facility use at least one of these dose optimization te chniques: automated exposure control; mA and/or kV adjustment per patient size (includes targeted exa ms where dose is matched to clinical indication); or iterative reconstruction.
[2022-05-30] MEDS: MORPHine 4 MG/ML SYR (20:21)
--- NOTE | 2022-05-30 20:30 | ED.GENADUL_ITS ---
Discharge Plan Disposition Patient Disposition: HOME Condition: Stable Discharge Details Clinical Impression: Elbow fracture, right, Back pain Primary Care Provider: Tom Hay ED Provider: Patricia Boyd Home Meds and New Rx's Prescriptions: New oxycodone 5 mg capsule 5 mg PO Q8H PRNQty: 7 0RF Continued fluoxetine [Prozac] 40 mg Capsule 80 mg PO DAILY alprazolam [Xanax] 1 mg Tablet 1 mg PO TID aripiprazole [Abilify] 30 mg Tablet 30 mg PO DAILY Trelegy Ellipta 100-62.5-25 mcg Blister With Device 1 inh INHALATION DAILY albuterol sulfate 90 mcg/actuation Aero Powdr Breath Act W/Sensor 2 inh INHALATION Q6H glyburide 2.5 mg tablet 2.5 mg PO DAILY Qty: 30 0RF tramadol 50 mg tablet 50 mg PO PRN PRN levothyroxine 25 mcg tablet 25 mcg PO DAILY prednisone 50 mg tablet 50 mg PO DAILY Label Comments: TAKE ONE TABLET BY MOUTH EVERY DAY amoxicillin-pot clavulanate 875-125 mg tablet 1 tab PO BID insulin lispro 100 unit/mL insulin pen 1 sliding scale dose subcut USEASDIRECTD Qty: 3 0RF Rx Instructions: Check blood sugar before meals. If glucose < 250, no insulin; if glucose 251 - 300 then 2 units; if glucose 301 - 350 then 4 units; if glucose 351 - 400 then 6 units; if glucose 401 - 450 then 8 units; if glucose > 450 then 10 units and call your PCP. Ozempic 1 mg/dose (2 mg/1.5 mL) Pen Injector 1 mg SUBCUT DIRECTED Rx Instructions: weekly Discharge Instructions Instructions: Back Pain (ED) Additional Instructions: Take the ibuprofen and Tylenol for pain Take oxycodone sparingly, this medication is addictive Keep your splint in place and dry Or your sling but continue to range your shoulder so it does not become stiff Orthopedics likely call you Thursday for follow-up Referrals: Ever Bagley MD [ [facility] STAFF PHYSICIAN] - Discharge Data Discharge Date/Time-TO BE ENTERED AT DEPARTURE: 05/30/22 21:06 Medical Decision Making Patient placed in Ortho-Glass posterior splint and a sling She started complaining of some back pain therefore CT lumbar spine was ordered Her x-ray of her left knee does not show evidence of acute fracture and her right wrist does not show evidence of acute abnormality She will be placed orthopedic referral given a small amount of opiate analgesia for home Medical Records Medical records reviewed: Yes I reviewed the patient's medical records. Lab Data Lab results reviewed: Yes I reviewed the patient's lab results. HPI General Date/Time Provider Initiated Documentation: 05/30/22 16:55 . HPI Narrative: This 56-year-old female presents status post fall. She was getting out of her car and tripped. She landed on her knees and bilateral elbows. She states that she has pain with movement of her right elbow and her left knee tender with walking. She denies strength or sensation change. She did hit her chin but denies loss of consciousness. Related Data Home Medications Medication Instructions Recorded Confirmed alprazolam 1 mg tablet (Xanax) 1 mg PO TID 07/19/19 05/30/22 aripiprazole 30 mg tablet (Abilify) 30 mg PO DAILY 07/19/19 05/30/22 fluoxetine 40 mg capsule (Prozac) 80 mg PO DAILY 07/19/19 05/30/22 semaglutide 1 mg/dose (2 mg/1.5 1 mg subcut DIRECTED 03/08/20 05/30/22 mL) subcutaneous pen injector (Ozempic) albuterol sulfate 90 mcg/actuation 2 inh inhalation Q6H 06/07/20 05/30/22 breath activated powder inhaler,sensor fluticasone fur. 100 mcg-umeclid 1 inh inhalation DAILY 06/07/20 05/30/22 62.5 mcg-vilant 25 mcg inhalat.powder (Trelegy Ellipta) glyburide 2.5 mg tablet 2.5 mg PO DAILY #30 tabs 02/07/22 05/30/22 amoxicillin 875 mg-potassium 1 tab PO BID 02/19/22 05/30/22 clavulanate 125 mg tablet levothyroxine 25 mcg tablet 25 mcg PO DAILY 02/19/22 05/30/22 prednisone 50 mg tablet 50 mg PO DAILY 02/19/22 05/30/22 tramadol 50 mg tablet 50 mg PO PRN PRN 02/19/22 05/30/22 insulin lispro 100 unit/mL 1 sliding scale dose subcut 02/20/22 05/30/22 subcutaneous pen USEASDIRECTD #3 mL oxycodone 5 mg capsule 5 mg PO Q8H PRN #7 caps 05/30/22 Previous Rx's Medication Instructions Recorded glyburide 2.5 mg tablet 2.5 mg PO DAILY #30 tabs 02/07/22 insulin lispro 100 unit/mL 1 sliding scale dose subcut 02/20/22 subcutaneous pen USEASDIRECTD #3 mL oxycodone 5 mg capsule 5 mg PO Q8H PRN #7 caps 05/30/22 Allergies Allergy/AdvReac Type Severity Reaction Status Date / Time clonidine Allergy Severe nazia Unverified 05/30/22 17:01 adriana syndrome acetaminophen [From Vicodin] Allergy Unverified 05/30/22 17:01 codeine Allergy Itching Unverified 05/30/22 17:01 hydrocodone [From Vicodin] Allergy Itching Unverified 05/30/22 17:01 methadone AdvReac Nausea Unverified 05/30/22 17:01 General Stated Complaint: Trauma JOANNE: 3 Review of Systems All systems reviewed & are unremarkable except as noted in HPI and below PFSH All Active Problems (Updated 05/30/22 @ 20:41 by YUNIOR Flores) UTI (urinary tract infection) (Acute) Skin irritation (Acute) Abdominal pain (Acute) Pulmonary nodule (Acute) Nausea (Acute) Nausea and vomiting (Acute) COVID-19 (Acute) Elbow fracture, right (Acute) Back pain (Acute) Medical History (Updated 05/30/22 @ 20:41 by YUNIOR Flores) Anxiety Asthma COPD (chronic obstructive pulmonary disease) Depression Diabetes mellitus GERD (gastroesophageal reflux disease) Hypothyroid Surgical History History of cholecystectomy History of hysterectomy Hx of shoulder surgery Social History Smoking/Tobacco Use Status: Current every day Tobacco Type: cigarettes Smoking risk assessment performed?: Yes Alcohol Intake: never Drug use: Daily Substance use type: marijuana Do you feel safe at home: Yes Do you feel safe in your relationship?: Yes Exam Const General: cooperative and comfortable Orientation: alert and oriented x3 HENMT Other: Abrasion on chin Eyes Pupils: PERRL Resp Effort & Inspection: normal respiratory effort Auscultation: clear to auscultation bilaterally Cardio Rate: regular rate Rhythm: regular rhythm GI Inspection: normal to inspection Skin General skin exam: no rashes or lesions noted Neuro General: patient alert and patient oriented x3 Other: GCS 15 Extrem Other: Right elbow with tenderness, no evidence of open fracture, neurovascularly intact No tenderness with right shoulder or right wrist, tenderness. Left knee, abrasions to bilateral knees, right knee and left knee with range of motion intact Sensation intact distally Course Vital Signs Vital signs: Vital Signs Temperature 36.4 C L 05/30/22 16:58 Pulse 103 H 05/30/22 16:58 Blood Pressure 133/92 H 05/30/22 16:58 Pulse Oximetry 99 05/30/22 16:58 Temperature 36.4 C L 05/30/22 16:58 Temperature Source Temporal Artery Scan 05/30/22 16:58 Pulse 103 H 05/30/22 16:58 Respiratory Effort Non-Labored 05/30/22 17:02 Blood Pressure 133/92 H 05/30/22 16:58 Blood Pressure Position Sitting 05/30/22 16:58 Pulse Oximetry 99 05/30/22 16:58 Oxygen Delivery Method Room Air 05/30/22 16:58 Oxygen Flow Rate 0 05/30/22 16:58 Pain Level 10 05/30/22 20:21 Procedures Orthopedic Splinting/Casting Injury #1: Side: right Upper Extremity Injury Location: elbow Upper Extremity Immobilizer: posterior splint Additional Comments: neurovascularly intact pre and post placement
--- NOTE | 2022-05-30 20:36 | DI.VRAD_ITS ---
PROCEDURE INFORMATION: Exam: CT Lumbar Spine Without Contrast Exam date and time: 05/30/2022 8:03 PM Age: 56 years old Clinical indication: Other: Pain post fall TECHNIQUE: Imaging protocol: Computed tomography of the lumbar spine without contrast. COMPARISON: CR XR LUMBAR SPINE COMPLETE 10/18/2021 2:09 PM FINDINGS: Bones/joints: No acute fracture or malalignment. Discs/Spinal canal/Neural foramina: L4-L5 broad-based posterior disc bulge and bilateral facet arthropathy, causes central canal and bilateral neural foraminal narrowing. Gallbladder and bile ducts: Gallbladder surgically absent. Vasculature: Atherosclerotic vascular disease. Soft tissues: Unremarkable. IMPRESSION: No acute fracture or malalignment. Dictated and Authenticated by: Narciso Yuen MD. Ordering:INES Gomez MD
== END 2022-05-30 21:06 | disposition home or self-care (01) ==
PROVIDERS: Emergency Provider Physician Assistant; PCP Internal Medicine
DX: S42.401A Unspecified fracture of lower end of right humerus, initial encounter for closed fracture (principal); S80.212A Abrasion, left knee, initial encounter; S80.211A Abrasion, right knee, initial encounter; G89.11 Acute pain due to trauma; M54.9 Dorsalgia, unspecified; J44.9 Chronic obstructive pulmonary disease, unspecified; E11.9 Type 2 diabetes mellitus without complications; F17.210 Nicotine dependence, cigarettes, uncomplicated; Z79.51 Long term (current) use of inhaled steroids; Z79.4 Long term (current) use of insulin; W01.0XXA Fall on same level from slipping, tripping and stumbling without subsequent striking against object, initial encounter
CPT/HCPCS: 29105; 73562; 99284; 72131; 73080; 73110; J2270

== ENCOUNTER 2022-06-07 16:46 | Emergency (ER) | payer MEDICARE, MEDICAID, SELFPAY ==
[2022-06-07 16:51] VITALS: BP 154/100; PULSE 90; RESP 18; TEMP 36.6; O2SAT 98
--- NOTE | 2022-06-07 17:00 | DI.CT_ITS ---
Exam(s) CT UPPER EXTREMITY RT WO EXAM: CT UPPER EXTREMITY RT WO CLINICAL HISTORY: Trauma with worsening pain TECHNIQUE: Imaging Protocol: Axial computed tomography images with coronal and sagittal reformatted images were created and reviewed. CONTRAST MATERIAL: Intravenous: Omnipaque 350 Contrast volume:structured data in ml Contrast route:I V - Oral: yes / no COMPARISON: No exams were available for comparison FINDINGS: OSSEOUS: No fracture or dislocation at the level of the glenohumeral joint. No fractures more distally in the humerus nor in the region of the elbow including radial head and neck and no fracture evident in the forearm bones. Mild-moderate degenerative changes are noted in the acromioclavicular joint. There is a 2 x 2 millim eter calcific density in the soft tissues just above the greater tuberosity consistent with calcific rotator cuff tendinitis. No obvious degenerative changes in the glenohumeral joint. At the level of the elbow there are no fractures of the radial head and neck. Capitellum unremarkabl e. Epicondyles and proximal ulna unremarkable. Olecranon process unremarkable. IMPRESSION: No evidence of fracture nor dislocation of the humerus and bones of the forearm. Small calcification adjacent to the greater tuberosity of the humeral head indicates rotator cuff estuardo cific tendinitis. Mild-moderate degenerative changes noted in the ipsilateral AC joint. RADIATION DOSE DELIVERED: 295.22mGy.cm Total DLP DATA REPOSITORY: All CT scans at this facility are submitted to the National Radiology Data Registry (NRDR) Dose Index Registry (DIR) with the [employer] (ACR). RADIATION OPTIMIZATION: All CT scans at this facility use at least one of these dose optimization te chniques: automated exposure control; mA and/or kV adjustment per patient size (includes targeted exa ms where dose is matched to clinical indication); or iterative reconstruction.
--- NOTE | 2022-06-07 17:17 | W.ED.GENAD ---
Discharge Plan Disposition Patient Disposition: HOME Condition: Stable Discharge Details Clinical Impression: Musculoskeletal pain of right upper extremity Primary Care Provider: Tom Hay ED Provider: Dmitry Mc Home Meds and New Rx's Prescriptions: No Action fluoxetine [Prozac] 40 mg Capsule 80 mg PO DAILY alprazolam [Xanax] 1 mg Tablet 1 mg PO TID aripiprazole [Abilify] 30 mg Tablet 30 mg PO DAILY Trelegy Ellipta 100-62.5-25 mcg Blister With Device 1 inh INHALATION DAILY albuterol sulfate 90 mcg/actuation Aero Powdr Breath Act W/Sensor 2 inh INHALATION Q6H glyburide 2.5 mg tablet 2.5 mg PO DAILY Qty: 30 0RF tramadol 50 mg tablet 50 mg PO PRN PRN levothyroxine 25 mcg tablet 25 mcg PO DAILY prednisone 50 mg tablet 50 mg PO DAILY Label Comments: TAKE ONE TABLET BY MOUTH EVERY DAY amoxicillin-pot clavulanate 875-125 mg tablet 1 tab PO BID insulin lispro 100 unit/mL insulin pen 1 sliding scale dose subcut USEASDIRECTD Qty: 3 0RF Rx Instructions: Check blood sugar before meals. If glucose < 250, no insulin; if glucose 251 - 300 then 2 units; if glucose 301 - 350 then 4 units; if glucose 351 - 400 then 6 units; if glucose 401 - 450 then 8 units; if glucose > 450 then 10 units and call your PCP. oxycodone 5 mg capsule 5 mg PO Q8H PRNQty: 7 0RF Ozempic 1 mg/dose (2 mg/1.5 mL) Pen Injector 1 mg SUBCUT DIRECTED Rx Instructions: weekly Discharge Instructions Instructions: Arm Pain (ED) Additional Instructions: Please continue to use [id number] pain medication as needed for pain and discomfort along with your other prescribed medications. Please keep your appointment with orthopedics and use the sling as discussed along with daily gentle range of motion of your shoulder to prevent any frozen shoulder. Stand Alone Forms: Work Release Referrals: [facility] [Provider Group] (Please keep your scheduled appointment) Medical Decision Making Patient presenting to the emergency department for chief complaint of right upper extremity pain and discomfort. Patient was seen in the emergency department on the diagnosed with an elbow fracture. Due to a failed cervical spine fusion she was unable to wear the sling for the recommended amount of time and the posterior splint that was placed on patient's arm fell off. Due to this patient has been using upper extremity but has noticed significant worsening pain into the proximal humerus all the way through the forearm. Patient denies any other reinjury or trauma. Physical exam shows diffuse tenderness to the right upper extremity but no obvious motor or nerve dysfunction and pulses along with cap refill intact. I suspect that due to patient not immobilizing upper extremity she is having more pain and discomfort but upon review of the x-ray imaging radiologist did recommend CT scanning for subtle radial head fracture. Given patient's worsening pain and discomfort along with CT recommendation will perform CT imaging. We will treat patient's pain pending result Review of radiological imaging and radiologist interpretation shows no acute fracture of the right upper extremity. Will encourage patient to use sling as needed for discomfort and keep her orthopedic follow-up appointment but will not respond at this time. After discussion of diagnosis and plan of care patient has no further needs, questions, or concerns and states clear understanding to return to the emergency department for any worsening symptoms. This documentation was generated using [employer] system, please disregard any oddities of phrase or misspellings. Imaging Data Radiologic Study: Attestation: I personally reviewed and interpreted this imaging study as follows: Imaging: CT Scan Radiologist's impression: CR XR ELBOW RT COMPLETE 05/30/2022 6:39 PM FINDINGS: Bones/joints: Elbow: No fracture. No joint space effusion. Humerus: No fracture. Shoulder: Calcifications in the distal supraspinatus and infraspinatus tendons. No fracture. No acromioclavicular separation. No right rib fractures. Soft tissues: Normal. IMPRESSION: 1. No fracture of the right shoulder, humerus or elbow. 2. Rotator cuff calcific tendinitis. HPI General Mode of arrival: ambulatory. Date/Time Provider Initiated Documentation: 06/07/22 16:53. Limitations to Documentation: no limitations. Information obtained by: RN notes reviewed and old records reviewed. History of Present Illness 56 year old F presents to the emergency department with the chief complaint of Right upper arm pain, described as moderate and severe, with intensity rated at 9. Quality is described as aching and sharp, and is localized to the right and upper extremity. Patient proximal and distal. Patient started experiencing this week(s) (1) and it has been constant. No relieving factors improve symptom(s), and Immobilization improves symptom(s), Movement worsens symptoms . Patient notes no other symptoms.. Patient did receive the following treatments prior to arrival, NSAID Related Data Home Medications Medication Instructions Recorded Confirmed alprazolam 1 mg tablet (Xanax) 1 mg PO TID 07/19/19 06/07/22 aripiprazole 30 mg tablet (Abilify) 30 mg PO DAILY 07/19/19 06/07/22 fluoxetine 40 mg capsule (Prozac) 80 mg PO DAILY 07/19/19 06/07/22 semaglutide 1 mg/dose (2 mg/1.5 1 mg subcut DIRECTED 03/08/20 06/07/22 mL) subcutaneous pen injector (Comfort Line) albuterol sulfate 90 mcg/actuation 2 inh inhalation Q6H 06/07/20 06/07/22 breath activated powder inhaler,sensor fluticasone fur. 100 mcg-umeclid 1 inh inhalation DAILY 06/07/20 06/07/22 62.5 mcg-vilant 25 mcg inhalat.powder (Trelegy Ellipta) glyburide 2.5 mg tablet 2.5 mg PO DAILY #30 tabs 02/07/22 06/07/22 amoxicillin 875 mg-potassium 1 tab PO BID 02/19/22 06/07/22 clavulanate 125 mg tablet levothyroxine 25 mcg tablet 25 mcg PO DAILY 02/19/22 06/07/22 prednisone 50 mg tablet 50 mg PO DAILY 02/19/22 06/07/22 tramadol 50 mg tablet 50 mg PO PRN PRN 02/19/22 06/07/22 insulin lispro 100 unit/mL 1 sliding scale dose subcut 02/20/22 06/07/22 subcutaneous pen USEASDIRECTD #3 mL oxycodone 5 mg capsule 5 mg PO Q8H PRN #7 caps 05/30/22 06/07/22 Previous Rx's Medication Instructions Recorded glyburide 2.5 mg tablet 2.5 mg PO DAILY #30 tabs 02/07/22 insulin lispro 100 unit/mL 1 sliding scale dose subcut 02/20/22 subcutaneous pen USEASDIRECTD #3 mL oxycodone 5 mg capsule 5 mg PO Q8H PRN #7 caps 05/30/22 Allergies Allergy/AdvReac Type Severity Reaction Status Date / Time clonidine Allergy Severe nazia Unverified 05/30/22 17:01 adriana syndrome acetaminophen [From Vicodin] Allergy Unverified 05/30/22 17:01 codeine Allergy Itching Unverified 05/30/22 17:01 hydrocodone [From Vicodin] Allergy Itching Unverified 05/30/22 17:01 methadone AdvReac Nausea Unverified 05/30/22 17:01 General Stated Complaint: Orthopedic JOANNE: 4 Review of Systems Narrative: 8 systems reviewed and unremarkable except what is marked below. Musculoskeletal Musculoskeletal: Reports as per HPI, Reports arthralgias, Reports joint swelling, Reports limited range of motion, Denies numbness, Reports radiating pain into limb and Reports tingling Integumentary/Breasts Skin/Breast: Denies wounds Neurologic Neurologic: Denies numbness and Reports tingling PFSH All Active Problems (Updated 06/07/22 @ 18:20 by Dmitry Mc NP) UTI (urinary tract infection) (Acute) Skin irritation (Acute) Abdominal pain (Acute) Pulmonary nodule (Acute) Nausea (Acute) Nausea and vomiting (Acute) COVID-19 (Acute) Elbow fracture, right (Acute) Back pain (Acute) Musculoskeletal pain of right upper extremity (Acute) Medical History (Updated 06/07/22 @ 18:20 by Dmitry Mc NP) Anxiety Asthma COPD (chronic obstructive pulmonary disease) Depression Diabetes mellitus GERD (gastroesophageal reflux disease) Hypothyroid Surgical History History of cholecystectomy History of hysterectomy Hx of shoulder surgery Social History Smoking/Tobacco Use Status: Current every day Tobacco Type: cigarettes Smoking risk assessment performed?: Yes Alcohol Intake: never Drug use: Daily Substance use type: marijuana Do you feel safe at home: Yes Do you feel safe in your relationship?: Yes Exam Const General: cooperative, no acute distress and not ill appearing Orientation: alert, awake and oriented x3 Resp Effort & Inspection: normal respiratory effort, able to speak in complete sentences and no respiratory distress Cardio Rate: regular rate Rhythm: regular rhythm Skin General skin exam: no rashes or lesions noted Neuro General: patient alert, patient awake, patient oriented x3, moves all extremities and no focal motor deficits Sensory Exam: no sensory deficits noted Extrem Right upper extremity: normal capillary refill, shoulder/upper arm Details: tenderness Location: of the proximal humerus and of the mid-shaft humerus, axillary nerve sensory function normal and abnormal ROM Details: pain with active ROM; no swelling, elbow/forearm Details: tenderness Location: of the olecranon, of the lateral epicondyle, of the mid-shaft forearm, proximal forearm, of the medial epicondyle and of the radial head, swelling, abnormal ROM Details: pain with active ROM during Details: with extension, with pronation and with supination and ecchymosis, wrist Details: normal to inspection and normal ROM; no tenderness and no swelling and hand Details: normal to inspection, normal capillary refill, neuromotor exam normal, neurosensory exam normal, tendon exam normal and vascular exam Details: radial pulse present and normal capillary refill Course Vital Signs Vital signs: Vital Signs Temperature 36.6 C 06/07/22 16:51 Pulse 90 06/07/22 16:51 Respiratory Rate 18 06/07/22 16:51 Blood Pressure 154/100 H 06/07/22 16:51 Pulse Oximetry 98 06/07/22 16:51 Temperature 36.6 C 06/07/22 16:51 Temperature Source Temporal Artery Scan 06/07/22 16:51 Pulse 90 06/07/22 16:51 Respiratory Rate 18 06/07/22 16:51 Respiratory Effort Non-Labored 06/07/22 16:53 Blood Pressure 154/100 H 06/07/22 16:51 Blood Pressure Position Supine 06/07/22 16:51 Pulse Oximetry 98 06/07/22 16:51 Oxygen Delivery Method Room Air 06/07/22 16:51 Oxygen Flow Rate 0 06/07/22 16:51 Pain Level 10 06/07/22 16:51
[2022-06-07] MEDS: oxyCODONE 5 MG TAB PO (17:22)
--- NOTE | 2022-06-07 18:00 | DI.VRAD_ITS ---
PROCEDURE INFORMATION: Exam: CT Right Upper Extremity Without Contrast Exam date and time: 06/07/2022 5:28 PM Age: 56 years old Clinical indication: Lower or forearm and upper arm and elbow and shoulder; Right; Patient HX: Trauma with worsening pain; Additional info: Per PT: Feeling pain from shoulder down into fingertips TECHNIQUE: Imaging protocol: Computed tomography of the Right upper extremity without contrast. COMPARISON: CR XR ELBOW RT COMPLETE 05/30/2022 6:39 PM FINDINGS: Bones/joints: Elbow: No fracture. No joint space effusion. Humerus: No fracture. Shoulder: Calcifications in the distal supraspinatus and infraspinatus tendons. No fracture. No acromioclavicular separation. No right rib fractures. Soft tissues: Normal. IMPRESSION: 1. No fracture of the right shoulder, humerus or elbow. 2. Rotator cuff calcific tendinitis. Dictated and Authenticated by: Eddi Reza MD. Ordering:JAIME Andres MD
[2022-06-07 18:20] VITALS: BP 140/85; PULSE 90; RESP 16; TEMP 36.2; O2SAT 99
[2022-06-07] MEDS: Ketorolac 30 MG/ML VIAL IM (18:29)
[2022-06-07 18:37] VITALS: BP 140/85; PULSE 90; RESP 16; TEMP 36.2; O2SAT 99
== END 2022-06-07 18:37 | disposition home or self-care (01) ==
PROVIDERS: Emergency Provider Nurse Practitioner Family; PCP Internal Medicine
DX: S50.11XA Contusion of right forearm, initial encounter (principal); J44.9 Chronic obstructive pulmonary disease, unspecified; E11.9 Type 2 diabetes mellitus without complications; Z79.4 Long term (current) use of insulin; Z79.84 Long term (current) use of oral hypoglycemic drugs; F17.210 Nicotine dependence, cigarettes, uncomplicated; X58.XXXA Exposure to other specified factors, initial encounter; Z79.52 Long term (current) use of systemic steroids
CPT/HCPCS: 96372; 99284; 73200; J1885

== ENCOUNTER 2022-07-11 23:59 | Emergency (ER) | payer OTHER, SELFPAY ==
[2022-07-11 23:58] VITALS: BP 145/85; PULSE 132; RESP 18; TEMP 36.6; O2SAT 99
--- NOTE | 2022-07-12 00:15 | DI.CT_ITS ---
Exam(s) CT HEAD WO EXAM: CT HEAD WO CLINICAL HISTORY: headbutted, frontal headache, vertigo. TECHNIQUE: Imaging Protocol: Axial computed tomography images with coronal and sagittal reformatted images were created and reviewed COMPARISON: No exams were available for comparison FINDINGS: There are no skull fractures nor fluid in the visualized paranasal sinuses. There is no evidence of intracranial hemorrhage, mass effect, or shift of midline structures. There are no extra-axial fluid collections. The ventricles are not enlarged or shifted and there is no blo od within the ventricular system nor within the basal cisterns. IMPRESSION: No acute intracranial findings on this noninfused CT scan of the brain. RADIATION DOSE DELIVERED: 831.76mGy.cm Total DLP DATA REPOSITORY: All CT scans at this facility are submitted to the National Radiology Data Registry (NRDR) Dose Index Registry (DIR) with the [employer] ([employer]). RADIATION OPTIMIZATION: All CT scans at this facility use at least one of these dose optimization te chniques: automated exposure control; mA and/or kV adjustment per patient size (includes targeted exa ms where dose is matched to clinical indication); or iterative reconstruction.
[2022-07-12] MEDS: LORazepam 1 MG TAB PO (00:37)
[2022-07-12] MEDS: Meclizine 25 MG TAB PO (00:37)
--- OUTSIDE RECORDS SUMMARY | 2022-07-12 00:42 | XMS_ITS | Clinical Summary ---
:1965 Author Organization [facility] [place] [address] Care Team Providers Name Role Phone Tom Hay MD Primary Care Provider Allergies Active Allergy Reactions Severity Noted Date Comments Clonazepam Nausea And Vomiting 12/27/2019 Nauseous , itchy Clonidine (Pf) Other (See Comments) 02/10/2017 melvina ns johnsons syndrome Codeine Itching, Nausea Only 05/01/2016 Hydrocodone-Acetaminoph Itching 12/27/2019 rash en Latex Rash 12/27/2019 Metformin Nausea And Vomiting High 10/01/2018 Methadone Nausea And Vomiting 01/30/2014 Had trou ble walking and talking aft er taking for a fe w days Medications Medication Sig Dispensed Refills Start End Date Status Date fluticasone (VERAMYST) 2 sprays by Nasal 0 Active 27.5 mcg/actuation route daily. Walton, Indications: SuspensionIndications: Allergic Rhinitis allergic rhinitis ondansetron (ZOFRAN) 4 Take 1 tablet by 20 tablet 3 Active mg TabletIndications: mouth every 8 9 Vertigo hours as needed for Nausea. estradiol (ESTRACE) Place vaginally as 4 Active 0.01 % (0.1 mg/gram) needed. 9 Cream Calcipotriene 0.005 % as needed. 0 Active Solution 0 methocarbamoL (ROBAXIN) Take 1 tablet by 30 tablet 0 Active 750 mg mouth 3 times 1 TabletIndications: daily as needed. Cervical radicular pain blood sugar diagnostic Use as instructed 300 each 3 Active strips to check BG 4 1 StripIndications: times daily. Controlled type 2 (Freestyle Lite)DX diabetes mellitus code E11.9 IDD without complication, unspecified whether caseworker protective services insulin use Vitamin D 25 mcg (1,000 Take 2 tablets by 90 tablet 0 10/26/19 2 Active unit) Tablet mouth daily. 1 cholecalciferol, Take 1 capsule by 52 capsule 0 Active Vitamin D3, 1,250 mcg mouth once a week. 1 (50,000 unit) Capsule ipratropium-albuteroL Take 0.5 mg by 1 Box 4 Active (DUONEB) 0.5 mg-3 nebulization 4 1 mg(2.5 mg base)/3 mL times daily. Solution for NebulizationIndications : Chronic obstructive pulmonary disease with acute exacerbation naratriptan (Amerge) Take 1 tablet by 10 tablet 3 Active 2.5 mg mouth as needed 1 TabletIndications: for Migraine. if Vertigo returns or does not resolve, may repeat once after 4 hours lancets (FreeStyle Dx E11.9 IDD 125 each 11 Active Lancets) 28 gauge please test 4x/day 1 MiscIndications: with lancets diabetes mellitus Indications: diabetes mellitus cycloSPORINE (Restasis) Place 1 drop into 180 vial 3 10/26/19 2 Active 0.05 % both eyes every 12 1 DropperetteIndications: hours. Bilateral dry eyes clotrimazole (MYCELEX) DIS 1 MOLLY PO TID 30 tablet 3 Active 10 mg Gary 1 metoclopramide (REGLAN) Take 1 tablet by 80 tablet 0 Active 5 mg TabletIndications: mouth 4 times 1 Refractory nausea and daily. vomiting meclizine (Antivert) 25 Take 1 tablet by 90 tablet 3 Active mg TabletIndications: mouth 3 times 1 Vertigo daily as needed. nystatin (Mycostatin) SAS 5 ML PO QID 473 mL 3 Active 100,000 unit/mL PRF THRUSH 1 Suspension albuteroL (ProAir HFA) Inhale 2 puffs 4 each 3 Active 90 mcg/actuation HFA into the lungs 2 Aerosol every 4 hours as InhalerIndications: needed for Chronic obstructive Wheezing. Use with pulmonary disease with spacer acute exacerbation ergocalciferoL, vitamin Take 1 capsule by 12 capsule 3 02 Active D2, (vitamin D2) 50,000 mouth once a week. 2 unit CapsuleIndications: Low vitamin D level sucralfate (Carafate) Take 10 mLs by 3600 mL Active 100 mg/mL mouth 4 times 2 SuspensionIndications: daily. Upper abdominal pain pregabalin (Lyrica) 75 Take 1 capsule by 180 tablet 1 02/27/20 2 Active mg Capsule mouth 2 times 2 daily. valACYclovir (VALTREX) Take 1 tablet by 180 tablet 3 Active 1 gram mouth 2 times 2 TabletIndications: Oral daily. lesion fluticasone-umeclidiniu Inhale 1 puff into 60 each 02 Active m-vilanterol (Trelegy the lungs daily. 2 Ellipta) DULoxetine DR Take 1 capsule by 90 capsule Active (Cymbalta) 60 mg mouth daily. 2 Capsule, Delayed Release(E.C.) glipiZIDE (Glucotrol) 5 Take 1 tablet by 90 tablet 3 Active mg Tablet mouth daily. 2 esomeprazole (NexIUM) Take 1 capsule by 180 capsule 3 02/27/20 2 Active 40 mg Capsule, Delayed mouth 2 times 2 Release(E.C.) daily. amLODIPine (Norvasc) 10 Take 1 tablet by 90 tablet 3 Active mg Tablet mouth daily. 2 atorvastatin (Lipitor) Take 1 tablet by 90 tablet Active 20 mg Tablet mouth daily. 2 levothyroxine Take 2 tablets by 180 tablet Active (Synthroid) 150 mcg mouth daily. Take 2 Tablet in addition to the 25mcg to equal 325mcg levothyroxine Take 1 tablet by 90 tablet 3 Active (Synthroid) 25 mcg mouth daily. 2 Tablet hydroCHLOROthiazide Take 1 tablet by 90 tablet Active (Hydrodiuril) 50 mg mouth daily. 2 TabletIndications: Essential hypertension varenicline (Chantix) 1 Take 1 tablet by 60 tablet 5 Active mg Tablet mouth 2 times 2 daily. metroNIDAZOLE Apply topically 2 45 g 5 Active (METROCREAM) 0.75 % times daily. 2 Cream blood-glucose meter 1 each by 1 each 0 Active (FREESTYLE) Kit Misc.(Non-Drug; 2 Combo Route) route as needed for Other. ondansetron ODT (Zofran Take 1-2 tablets 12 tablet 3 Active ODT) 4 mg Tablet, Rapid by mouth every 8 2 Dissolve hours as needed for Nausea. ibuprofen (Motrin) 400 Take 1 tablet by 180 tablet 3 Active mg Tablet mouth every 6 2 hours as needed for Pain. BD Alcohol Swabs Pads, 1 each 4 times 100 each 3 Active Medicated daily. 2 traMADoL (Ultram) 50 mg Take 1 tablet by 56 tablet 0 Active TabletIndications: mouth every 6 2 Cervical spondylosis hours as needed with myelopathy, H/O for Pain for up to cervical spinal 56 doses. arthrodesis empagliflozin Take 1 tablet by 90 tablet Active (Jardiance) 10 mg mouth daily. 2 Tablet dulaglutide (Trulicity) Inject 0.5 mLs 2 mL Active 1.5 mg/0.5 mL Pen subcutaneously 2 InjectorIndications: once a week. type 2 diabetes Indications: type mellitus 2 diabetes mellitus betamethasone-calcipotr Apply twice daily 120 g 3 06/13/20 2 Active iene (TACLONEX SCALP) for 5 days out of 2 0.005-0.064 % the week SuspensionIndications: Scalp psoriasis Clobetasol-Emollient Apply twice daily 200 g 0 Active (Olux-E) 0.05 % to worse scalp 2 FoamIndications: psoriasis on Psoriasis weekends-only as needed dispense 3 bottles please fluticasone propionate 1 spray by Each 16 g Active (Flonase) 50 Nare route daily. 2 mcg/actuation Walton, Suspension olopatadine (Patanol) Place 1 drop into 5 mL Active 0.1 % Drops both eyes 2 times 2 daily. fluocinonide (LIDEX) Apply twice daily 60 mL 5 Active 0.05 % Solution to worse scalp 2 psoriasis on weekends-only as needed erythromycin (Romycin) Apply a thin layer 3.5 g 0 06/20/20 2 Active 5 mg/gram (0.5 %) to your right 2 Ointment lower lid 3 times a day for 5 days oxyCODONE-acetaminophen Take 1 tablet by 15 tablet 0 Active (Percocet) 5-325 mg mouth every 6 2 Tablet hours as needed for Pain. Active Problems Patient Care Coordination Note Formatting of this note might be differe nt from the original. [place] Medical Marijuana Registry Signed on 06/03/2017. Opioid agreement resigned 01/02/15 Voided on 07/16/15 due to continued use cannabis Problem Noted Date Abdominal pannus 03/06/2022 Myeloradiculopathy 02/26/2022 Necrotizing gingivitis 02/15/2022 Abdominal pain 09/18/2021 Pulmonary nodule 09/18/2021 S/P C6 corpectomy, C5-7 ACCF 11/30/20 Dr. Hanley 11/30 Cervical spondylosis with myelopathy 11/06/2020 Overview: Added automatically from request for srvaan essie [id number] Colon polyp 07/17/2020 Overview: Small- on scope 2015- ? pathology Schizoaffective disorder 07/04/2020 Fibromyalgia 10/01/2018 COPD (chronic obstructive pulmonary disease) 8 Acne vulgaris 01/27/2018 Bipolar II disorder 01/27/2018 Vitamin D deficiency 01/27/2018 Essential hypertension 01/27/2018 Hyperlipidemia 01/27/2018 Seasonal allergies 01/27/2018 Uncontrolled type 2 diabetes mellitus with hyperglycem ia 08/18/2016 Combined forms of age-related cataract of both eyes Myopia of both eyes with astigmatism and presbyopia Bilateral dry eyes 07/29/2015 DDD (degenerative disc disease), cervical 07/17/2014 Hemangioma - left shoulder 01/19/2014 Dermatofibroma 12/14/2012 Atypical nevus of back 03/05/2012 Bilateral shoulder pain 07/25/2011 Overview: With 2 surgeries for left Asthma 06/05/2011 Hypothyroid 06/05/2011 Depression 06/05/2011 GERD (gastroesophageal reflux disease) 06/05/2011 Chronic UTI 06/05/2011 Sleep apnea 06/05/2011 Chronic migraine without aura 01/22/2011 Scalp psoriasis 11/06/2010 Resolved Problems Problem Noted Date Resolved Date Vertigo 03/26/2018 10/29/2018 Plantar wart 01/27/2018 03/26/2018 Mild cognitive impairment, so stated 01/27/2018 Schizophrenia 01/27/2018 07/04/2020 Cervical radiculitis 01/02/2015 03/26/2018 Encounter for long-term (current) use of other medications 1 11/06/2013 03/26/2018 Chronic neck pain 04/19/2013 03/26/2018 Lesion of skin of face 12/14/2012 03/26/2018 Accessory skin tags 12/14/2012 03/26/2018 Myopia with astigmatism and presbyopia 09/28/2012 1 Seborrheic keratosis, inflamed 08/03/2012 9 Irritated nevus of face 08/03/2012 10/29/2018 Type 2 diabetes mellitus 03/16/2012 03/26/2018 MGD (meibomian gland dysfunction) 03/16/20122014 Dry eyes 03/16/2012 07/25/2015 Myopia 03/16/2012 09/28/2012 Astigmatism 03/16/2012 09/28/2012 Presbyopia 03/16/2012 09/28/2012 Cervical radicular pain 07/28/2011 01/30/2021 Carpal tunnel syndrome on both sides 07/25/2011 Left elbow pain 07/25/2011 03/26/2018 Leukocytosis 06/05/2011 10/29/2018 Overview: Chronic leukocytosis Normal hemoglobin and platelet count White count typically from 12-20,000 sin ce 2008 principally neutrophils Impression is that of reactive process Diabetes mellitus 06/05/2011 03/24/2018 Overview: Dx replacement utility run on deactivate d IMO Dx [id number] Migraines 06/05/2011 07/25/2011 Encounters Date Type Specialty Care Team Description 07/10/2022 Telephone Otolaryngology Ivone Mcqueen 07/10/2022 Orders Only Otolaryngology Luis Antonio Houston Malignant melanoma of M, PA mucosa of head and neck 07/08/2022 Telephone Maxillofacial Surgery Vincent Garcia PA 06/30/2022 Orders Only [facility] Rashard Hanley S/Cody C6 corpectomy, C5-7 ACCF 11/30/20 Dr. Hanley; MD Jensen Pseudoarthrosis of cervical spine, sequela 06/26/2022 Procedure visit Maxillofacial Surgery Vincent Garcia Or al lesion J, PA 06/26/2022 Office Visit Maxillofacial Surgery Vincent Garcia Oral lesion J, PA 06/26/2022 Office Visit Podiatry Thanh Titus is; Tom Edgar DPM Right foot pa in; Type 2 diabetes mellitus with peripheral neuropathy 06/23/2022 Telephone [facility] Kj Naqvi Results (Cov id B, RN negative) 06/20/2022 Emergency Emergency Medicine Suzie Gallego n of right cornea, initial encounter; MD Grayson Acute non-recur rent maxillary sinusitis; Oral lesion 06/20/2022 Nurse Triage Internal Medicine Maricruz Shabazz, RN 06/20/2022 Telephone Internal Medicine Tom Hay MD 06/17/2022 Orders Only Internal Medicine Tom Hay MD 06/13/2022 Office Visit Internal Medicine Christian Hay fra cture of right elbow, sequela; Tom Brown MD Scalp psoriasi s; Psoriasis; Oral ulcer; Plantar warts; Uncontrolled ty pe 2 diabetes mellitus with hyperglycemia; Hypothyroidism, unspecified type; Type 2 diabetes mellitus with hyperglycemia, without long-term current use of insulin 06/13/2022 Telephone Internal Medicine Mehreen Reilly, Prior Au thorization CCMA (Clobetasol Pro pionate Emulsion 0.05% foam) from Last 3 Months Immunizations Name Administration Dates Next Due Influenza PF, Split 06/22/2017 Influenza Vaccine PF, Quadrivalent 10/26/2020 Pneumococcal Polyvalent 23 10/26/2020 Tdap Vaccine 10/26/2020 Family History Medical History Relation Comments Migraines Brother Migraines Daughter Postoperative Nausea and Vomiting Daughter Migraines Father Alzheimer Disease Mother Macular Degeneration Mother Migraines Mother Postoperative Nausea and Vomiting Mother Amblyopia Neg Hx Blindness Neg Hx Cancer Neg Hx Cataracts Neg Hx Diabetes Neg Hx Glaucoma Neg Hx Heart Disease Neg Hx Hypertension Neg Hx Retinal Detachment Neg Hx Strabismus Neg Hx Stroke Neg Hx Thyroid Disease Neg Hx Relation Status Comments Brother Alive Daughter Alive Father Mother Alive Sister Alive Son Alive Social History Tobacco Use Types Packs/Day Years Used Date Current Every Day Smoker Cigarettes 0.25 13 Smokeless Tobacco: Never Used Tobacco Cessation: Ready to Quit: Yes Comments: Patient has 3 cigarettes a day Alcohol Use Standard Drinks/Week Comments No 0 (1 standard drink = 0.6 oz pure alcoho l) Physical Activity Answer Date Recorded On average, how many days per week do you engage in moderate 2 days 06/13/2022 to strenuous exercise (like walking fast, running, jogging, dancing, swimming, biking, or other activities that cause a light or heavy sweat)? On average, how many minutes do you engage in exercise at No t asked this level? Financial Resource Strain Answer Date Recorded How hard is it for you to pay for the very basics like food, Very hard 06/13/2022 housing, medical care, and heating? Food Insecurity Answer Date Recorded Within the past 12 months, you worried that your food would Often true 06/13/2022 run out before you got money to buy more. Within the past 12 months, the food you bought just didn't O ften true 06/13/2022 last and you didn't have money to get more. Transportation Needs Answer Date Recorded In the past 12 months, has lack of transportation kept you f rom No 06/13/2022 medical appointments or from getting medications? In the past 12 months, has lack of transportation kept you f rom No 06/13/2022 meetings, work, or getting things needed for daily living? Housing Stability Answer Date Recorded In the last 12 months, was there a time when you were not ab le Yes 06/13/2022 to pay the mortgage or rent on time? In the last 12 months, how many places have you lived? 1 06/13/2022 In the last 12 months, was there a time when you did not hav e a No 06/13/[address] or slept in a alf (including now)? Sex Assigned at Date Recorded Not on file Last Filed Vital Signs Vital Sign Reading Time Taken Comments Blood Pressure 136/91 06/20/2022 3:04 PM EDT Pulse 93 06/20/2022 3:04 PM EDT Temperature 36.8 ??C (98.2 ??F) 06/20/2022 3:04 PM EDT Respiratory Rate 18 06/20/2022 3:04 PM EDT Oxygen Saturation 100% 06/20/2022 3:04 PM EDT Inhaled Oxygen Concentration - - Weight 86.2 kg (190 lb) 07/10/2022 8:33 AM EDT Height 165.1 cm (5' 5) 03/11/2022 2:41 PM EDT Body Mass Index 31.62 03/11/2022 2:41 PM EDT Plan of Treatment Upcoming Encounters Date Type Specialty Care Team Description 08/06/2022 Office Visit Plastic Surgery Peña Woodward MD [facility] PLASTIC SURGERY [place], [place] [address] (Wo rk) 08/19/2022 Office Visit Podiatry Tom Titus DPM [place], [place] [address] (Wo rk) 09/08/2022 Office Visit Internal Medicine Janay Hay MD [facility] GENERAL INTERNAL MEDICINE [place], [place] [address] (Wo rk) 10/12/2059 Hospital Encounter Surgery Jim Hanley MD [facility] SPINE CENTER [place], [place] [address] (Wo rk) Scheduled Procedures Name Priority Associated Diagnoses Date/Time @ARTHRODESIS, POSTERIOR CERVICAL Cervical spondy losis with SPINE (WRVU 17.4) myelopathy Neck pain Pseudoarthrosis of cervical spine, sequela ARTHRODESIS, POSTERIOR VERTEBRAL Cervical spondy losis with EA.ADD. SEGMENT (WRVU 6.43) myelopathy Neck pain Pseudoarthrosis of cervical spine, sequela POST SPINAL INSTRUMENTATION, 3-6 Cervical spondy losis with VERTEBRA, NON SEGMENTAL (WRVU myelopathy 12.56) Neck pain Pseudoarthrosis of cervical spine, sequela AUTOGRAFT FOR SPINE SURGERY ONLY, Cervical spond ylosis with SAME INCISION (WRVU *) myelopathy Neck pain Pseudoarthrosis of cervical spine, sequela PLACEMENT-CRANIAL TONGS (INCLUDING Cervical spon dylosis with REMOVAL) (WRVU 4) myelopathy Neck pain Pseudoarthrosis of cervical spine, sequela ALLOGRAFT FOR SPINE SURGERY ONLY; Cervical spond ylosis with MORSELIZED (WRVU *) myelopathy Neck pain Pseudoarthrosis of cervical spine, sequela MODIFIER,POSTERIOR CERVICAL Cervical spondylosis with INFINITY MEDTRONIC myelopathy Neck pain Pseudoarthrosis of cervical spine, sequela MODIFIER,O-ARM, MOR Cervical spondylosis with myelopathy Neck pain Pseudoarthrosis of cervical spine, sequela MODIFIER,STEALTH 3 W/O Cervical spondylosis with KINEVO,CRANI/SPINE ONLY myelopathy Neck pain Pseudoarthrosis of cervical spine, sequela STEREOTACTIC COMPUTER-ASSTD Cervical spondylosis with NAVIGATIONAL SPINAL (WRVU 3.75) myelopat hy Neck pain Pseudoarthrosis of cervical spine, sequela Health Maintenance Due Date Last Done Comments Covid-19 Vaccine (#1) 1972 Breast Cancer Share Decision 2007 Needed Breast Cancer screening 2017 Zoster vaccine (1 of 2) 2017 DM Opthalmology Exam 10/20/2018 10/20/2017, 08/18/2016, 07/25/2015, Additional history exists Pneumococcal Vaccine: At-Risk 10/26/2021 10/26/2020 5-64yrs (2 - PCV) Influenza (Flu) vaccine (1 of 1 - 06/12/2022 10/26/2020, Influenza standard series) DM Hemoglobin A1c 6 month 12/11/2022 06/13/2022, 03/03/2022 , 07/30/2021, Additional history exists DM Urine Microalbumin yearly 03/03/2023 03/03/2022, 021, 07/04/2020, Additional history exists DM Creatinine yearly 06/13/2023 06/13/2022, 03/03/2022, 02/15/2022, Additional history exists Colonoscopy 11/09/2024 11/09/2014 (Outside per patient (enter details in comments)) Tetanus vaccine 10/26/2030 10/26/2020 HIV screen Completed 07/04/2020 Hepatitis C Screening Completed 07/04/2020 Tdap adult Completed 10/26/2020 Medical Devices Implanted Type Area Coke Drawer Device Shelf Model / Identifier Expiration Serial / Date Lot Cage Spinal [id number] Sm 0/5d Tlif Peek ([id number]) (Au toreq) - [id number] IMPLANTS Spine [employer] - [id number] / Implanted: Qty: 1 on 11/30/2020 by Rashard Hanley MD at [facility] H Cervical [employer] MED / Explanted Type Area Coke Drawer Device Shelf Model / Identifier Expiration Serial / Date Lot Pin Distraction 14mm Ant Cerv Fusn Ti ([id number]) - [id number] IMP LANTS Spine [employer] DP-14-TY / Explanted: Qty: 1 on 11/30/2020 by Rashard Hanley MD at [facility] Cervical INCORPORATED - / [employer] Procedures Procedure Name Priority Date/Time Associated Comments Diagnosis SPECIMEN TO PATHOLOGY Routine 06/26/2022 1:29 PM Oral lesion Results for this EDT procedure are i n the results section. SPECIMEN TO PATHOLOGY Routine 06/26/2022 1:29 PM Oral lesion Results for this EDT procedure are i n the results section. SURGICAL PATHOLOGY Routine 06/26/2022 1:10 PM Res ults for this REPORT EDT procedure are i n the results section. RAPID COVID-19 PCR STAT 06/20/2022 7:20 PM Res ults for this ([facility]) EDT procedure are in the results section. HC HEMOGLOBIN A1C STAT 06/13/2022 3:47 PM Type 2 diabetes R esults for this EDT mellitus with procedure are in hyperglycemia, the results without long-term section. current use of insulin COMPREHENSIVE STAT 06/13/2022 3:47 PM Type 2 diabetes Resul ts for this METABOLIC PANEL EDT mellitus with procedure a re in (NON-FASTING) hyperglycemia, the results without long-term section. current use of insulin HC HEMOGRAM STAT 06/13/2022 3:47 PM Type 2 diabetes Result s for this EDT mellitus with procedure are in hyperglycemia, the results without long-term section. current use of insulin HC THYROID STIMULATING STAT 06/13/2022 3:47 PM Hypothyroidi sm, Results for this HORMONE, SERUM EDT unspecified type procedure are in the results section. from Last 3 Months Results Specimen to Pathology (06/26/2022 1:29 PM EDT)Only the most recent of2 results within the time period is included. Specimen Anatomical Collection Method Collection Time Receive d Time (Source) Location / / Volume Laterality AP Specimen 06/26/2022 1:29 PM 2 1:29 EDT PM EDT Narrative [facility] - 06/26/2022 1:29 PM EDT Specimen requisition ordered. ??Separate Pathology report to follow Dash Macdonald MD PATHOLOGY/CYTOLOGY ORDERABLE S Performing Organization Address City/State/[place] [address] Surgical Pathology Report (06/26/2022 1:10 PM EDT) Component Value Ref Test Analysis Performed At [facility] gist Range Method Time Signature Surgical [id number] ? Location: [address] [place] [address] The signing pathologist has (i) examined the relevant preparation(s) for the [facility] specimen(s) and (ii) rendered or confirmed the diagnosis(es) . HOSPITAL LABORATORY . ?Surgic al Pathology DIAGNOSIS A - Left maxillary tuberosity distal to #15, biopsy: Melanoma in-situ (see Discussion) B - Alveolar ridge between #13 and #15, biopsy: Invasive melanoma, ulcerated, extending to biopsy margins (s ee Discussion) Electronically signed by: ?Beba Garrido MD Verified: ??07/07/2022 14:14 ??Pathologist Performed at: ??-[facility] Dept. of [place]ology, [place], [place] DISCUSSION Part A shows an atypical álvaro anocytic proliferation compatible with melanoma in-situ. ??In part B there is invasi ve melanoma with surface ulceration; the stage is at least pT3. ??The relationsh ip between the tissue in part A and B requires clinical correlation. This case was reviewed by Drs. Jerardo Rodriguez and Rick Colon, dermatopathologists, who concur with the above interpretati on. ADDITIONAL STUDIES Immunohistochemistry Studies: Formalin-fixed, paraffin-emb edded tissue sections are studied using the polymer technique with appropriate positive and negative controls. ?These IHC studies provide the pathologist wit h adjunctive diagnostic information. Antibody specificity has been verified by testin g antibodies on a series of in-house tissues with known immunohistochemical perform ance characteristics. The clinical interpretation of any antibody positive stain ing or its absence is evaluated within the context of clinical presentation, morp hology, histopathological criteria and other diagnostic tests. Block ? Antibody ?Result (Positive /Negative) A1 ??Melan A ? Positive in melanocytes ?S100 ?Positive in melanocy zoya ?SOX10 ?Positive in melanoc ytes ?PRAME ?Positive in melanoc ytes B1 ?Melan A ?Positive in melanocytes (de creased ? expression in some cells) ?S100 ?Positive in melanocy zoya ?SOX10 ?Positive in melanoc ytes ?PRAME ?Positive in melanoc ytes ??MITF ? Positive in melanocytes ??[id number] ? Negative ??[id number] ? Negative ?CD68 ?Positive in macrophages ?PU.1 ?Positive in macrophages SPECIMEN(S) SUBMITTED A - left maxillary tuberosity distal to #15, biopsy (3) B - alveolar ridge between #13 and #15, biopsy (1) . CLINICAL INFORMATION Exophytic tissue between #13 and #15 and multiple lesions with darkened pigmentation including tuberosity distal to the 15 SPECIMEN PROCESSING A - Labeled/Fixative: L tuberosity, formalin. Quantity/Size: Three, 0.4 x 0.3 x 0.3 cm, 0.7 x 0.4 x 0.3 cm, and 1.0 x 0.5 x 0.5 cm. Tissue Description: Soft, rubbery, lyons-haque mucosal tissues. The second largest specimen demonstrates irregular foci of haque-black pigmentation. Sections/Processing: Entirely submitted in 2 cassettes as follows: ?A1: ??Smaller fragments, submitted in toto ?A2: ??Largest fragment, inked and quadrasected B - Labeled/Fixative: Alveolar ridge between #13 & #15, form mary. Quantity/Size: Single, 1.0 x 0.9 x 0.3 cm. Tissue Description: Non-orie nted rubbery, wedged-shaped variegated lyons to partially haque-white and glistening rubbery soft tissue. Sections/Processing: Inked, serially sectioned and entirely submitted in 2 dominique ettes as follows: ?B1: ??Tips ?B2: ??cross sections through the body of the specimen ??shb Specimen (Source) Anatomical Collection Method Collection Time Re ceived Time Location / / Volume Laterality 06/26/2022 1:10 PM EDT Vincent MOJICA PATHOLOGY/CYTOLOGY ORDERABLE S Performing Organization Address City/State/[place] [address] COVID-19 PCR (06/20/2022 7:20 PM EDT) [facility] Method Time Signature SARS-CoV-2 Not Detected Not Detected [facility] RNA PCR [facility] Comment: This result should be interpreted in com bination with the clinical observations, patient history and epidem iological information. For testing of asymptomatic individuals, assay performa nce characteristics and clinical utility have not been evaluated. Testing for SARS-CoV-2 (Severe acute respiratory syndrome coronavirus 2, form erly known as 2019 novel coronavirus or 2019-nCoV) to aid in the diagnosis of CO VID-19 is performed using the Simplexa COVID-19 Direct Assay by Game[employer] jamil as authorized by the FDA issued Emergency Use Authorization (EUA). This assay is intended for In-vitro Diagnostic (IVD) use with nasopharyngeal swabs collected from individuals meeting the CDC criteria for testing. e assay is performed based on the instructions for use and additional guid ance provided by the FDA. Testing is performed in the Microbiology Laboratory within the Department of Pathology and Laboratory Medicine at [facility], certified under the Clinical Laboratory Improvement Amendmen ts of 1988 (CLIA), 42 U.S.C. section 263a, to perform high complexity tests. Assay performance has been verified according to clinical laboratory regulat ory requirements. Test results are provided above. A resul t of Not Detected indicates that the viral RNA target is not present but does not preclude SARS-CoV-2 infection. False negative results may occur if a sp ecimen is improperly collected, transported or handled; if amplification inhibitors are present; or if inadequate numbers of viral particles ar e present in the specimen. A result of Detected suggests a current or recent infection and the patient is presumed to be infected. Positive and negative pr edictive values for this test are highly dependent on disease prevalence. A result of Invalid indicates the inability to conclusively determine the presence or absence of SARS-CoV-2 RNA in the sample which can be due to a vari ety of factors. Recollection is recommended in the case of an invalid re sult. CDC COVID-19 criteria for testing on hum an specimens and clinical management guidance information are available at th e CDC Coronavirus Disease 2019 (COVID-19) webpage under Information fo r Healthcare Professionals (https://www.cdc.gov/coronavirus/2019-nc ov/hcp/index.html). Additional information about this and ot her EUA tests can be found in provider and patient fact sheets at the following FDA website: https://www.fda.gov/medical-devices/scbvrocpadf-hgfieuq-5039-zuogn-71-mwhbrooed- off-yfbpkjfbarqmdm-jbeistu-devices/ilfub-ephqwqfwfcm-rylu SARS-CoV-2 Source BRICK CATCHER Swab [facility] Specimen (Source) Anatomical Collection Method Collection Time Re ceived Time Location / / Volume Laterality Nasopharyngeal Swab 06/20/2022 7:20 06/20 PM EDT 8:28 PM EDT Comment: Symptoms->COVID-19 Suspected Resulting Agency Comment Spec In Lab Suzie Galicia MD MICROBIOLOGY - GENERAL ORDER NERIS Performing Organization Address City/[facility] [place] [address] (ABNORMAL) Hemogram (06/13/2022 3:47 PM EDT) Analysis Performed At Patho logist Time Signature WBC 11.2 (H) 4.0 - 9.[address] [facility] x10(3)/[facility] LABORATORY RBC 4.62 4.00 - MEHREEN CHANDA 5.21 [facility] x10(6)/[facility] LABORATORY Hemoglobin 14.0 11.7 - [facility] 15.5 g/dL [facility] LABORATORY Hematocrit 41.3 35.7 - [facility] 45.8 % [facility] LABORATORY MCV 89.4 82.6 [facility]4 [facility] LABORATORY MCH 30.3 27.1 - [place] CHANDA 32.0 pg [facility] LABORATORY MCHC 33.9 31.7 - [facility] 35.0 g/dL [facility] LABORATORY Platelets 360 (H) 145 - [address] [facility] x10(3)/[facility] LABORATORY RDWSD 41.2 37.0 - [facility] LAB[facility]ATORY RDWCV 12.5 11.5 - [facility] 14.1 % [facility] LABORATORY MPV 9.6 7.6 - 12.9 [facility] LABORATORY nRBC % Auto 0.0 % [facility] LABORATORY nRBC Abs Auto 0.000 0.000 - [facility] 0.000 [facility] x10(3)/[facility] LABORATORY Specimen Anatomical Collection Method Collection Time Receive d Time (Source) Location / / Volume Laterality Blood 06/13/2022 3:47 PM 3:59 EDT PM EDT Resulting Agency Comment Spec In Lab Tom Hay MD HEMATOLOGY ORDERABLES Performing Organization Address City/[facility]/[place]IP [place] [address] TSH (06/13/2022 3:47 PM EDT) P athologist Signature TSH 2.38 0.27 - 4.20 [facility] mcIU/mL [facility] LAB[facility]ATORY Comment: Reference Interval (mcIU/mL): Females: ??First Trimester: 0.23-3.88 ??Second Trimester: 0.22-3.90 ??Third Trimester: 0.44-4.66 Specimen Anatomical Collection Method Collection Time Receive d Time (Source) Location / / Volume Laterality Blood 06/13/2022 3:47 PM 3:59 EDT PM EDT Resulting Agency Comment Spec In Lab Tom Hay MD CHEMISTRY ORDERABLES Performing Organization Address City/State/ZIP Code Phon e Number [address] (ABNORMAL) Hemoglobin A1c (06/13/2022 3:47 PM EDT) Analysis Performed At Patho logist Time Signature Hemoglobin A1C 7.5 (H) 4.3 - 5.6 [facility] % [facility] LABORATORY Comment: Reference Range: 4.3 - 5.6% 5.7 - 6.4% - Increased Risk of Developin g Diabetes Mellitus >= 6.5% - Consistent with diagnosis of D iabetes Mellitus In the absence of hyperglycemia (i.e. pl asma glucose > 200 mg/dL) or classic symptoms of hyperglycemia a repeat measu rement of HbA1c should be performed on a separate sample to confirm the diagnos is. Diagnosis and Classification of Diabetes Mellitus, Diabetes Care 2013; 36: Suppl. 1, S67-74 Est Avg Gluc 169 mg/dL [facility] LAB[facility] Comment: eAG equivalents for HbA1c percentages: HbA1c(%) ?eAG(mg/dL) 6.0 ?126 6.5 ?140 7.0 ?154 7.5 ?169 8.0 ?183 8.5 ?197 9.0 ?212 9.5 ?226 10.0 ? 240 Limitations: The eAG calculation has not been validated on women, individuals below 18 years old and above 70 years old, and individuals with hemoglobinopathies. Additional resources are available on [facility] ADA website. Steve CHAO, Bhumi J, Kay R, et al. ??Tr anslating the A1C assay into estimated average glucose values. ??Diabetes Care 2008:31(8):8415-5881. Specimen Anatomical Collection Method Collection Time Receive d Time (Source) Location / / Volume Laterality Blood 06/13/2022 3:47 PM 2 3:59 EDT PM EDT Resulting Agency Comment Spec In Lab Tom Hay MD CHEMISTRY ORDERABLES Performing Organization Address City/State/[place] [address] (ABNORMAL) Comprehensive metabolic panel (non-fasting) (06/13/2022 3:47 PM EDT) P athologist Signature Glucose Lvl 161 65 - [address] [facility] mg/dL [facility] LABORATORY Comment: Diabetes: >=200 mg/dL plus symp toms BUN 11 8 - 18 mg/dL [facility] LABORATORY Creatinine 0.70 0.70 - 1.20 mg/dL [facility] LAB[facility]ORY Sodium 142 135 - 145 mmol/L [facility]ORY Potassium 4.2 3.5 - 5.0 mmol/L [facility] Comment: Please note: ??Patients with WBC >100,00 0 may have falsely elevated Potassium levels. ??For accurate Potassium quantif ication in these patients send serum separator tube (gold top) for subsequent determinations. ??Contact the Clinical Chemistry Laboratory if there are any qu estions. Chloride 105 98 - 107 mmol/L [facility] CO2 24 22 - 31 mmol/L [facility] Anion Gap 13 5 - 15 mmol/L [facility]OR[facility]ORY Calcium 9.3 8.5 - 10.5 mg/dL [facility] Total Protein 6.8 6.1 - 8.0 g/dL [facility] LAB[facility]ORY Albumin 3.9 3.2 - 5.2 g/dL [facility] AST 7 0 - 30 unit/L [facility] ALT 8 0 - 30 unit/L [facility] Alk Phos 77 35 - 105 unit/L [facility] Total Bilirubin <0.2 (L) 0.2 - 1.3 mg/dL [facility] LABORATORY Estimated GFR 103 >=60 mL/min/1.73 m?? [facility] Comment: This patient's estimated GFR was calcula jory using the 2020 CKD-EPI equation. The estimated GFR can vary from the lavon ured GFR by up to 30% in the absence of rapidly changing kidney function. Assess ment of the estimated GFR is not appropriate when creatinine concentratio ns are rapidly changing. For clinical situations in which a more precise estim ate of GFR is necessary, consider alternative methods of GFR estimation wiley ch as a 24-hour urine creatinine clearance. Assignment of CKD stage 1-5 for patients with an eGFR near the transition point between stages may be based on clinical assessment of muscle mass and symptoms in addition to eGFR. Specimen Anatomical Collection Method Collection Time Receive d Time (Source) Location / / Volume Laterality Blood 06/13/2022 3:47 PM 3:59 EDT PM EDT Resulting Agency Comment Spec In Lab Tom Hay MD CHEMISTRY ORDERABLES Performing Organization Address City/State/[place] [address] from Last 3 Months Insurance Payer Benefit Plan / Subscriber ID Effective Dates Phone Addre ss Type Group MEDICARE MEDICARE PART [id number] 1999-Presen [phone] [place] [id number] [place] [id number] 2018-Subhash [phone] [address] [place] [address] MEDICAID Advance Directives Latest Code Status on File Code Status Date Activated Date Inactivated Comments Attempt Cardiopulmonary Resuscitation - 02/15/2022 4:27 AM 12:39 PM Inpatient Code Status decision made by: Patient Attempt Cardiopulmonary Resuscitation - 11/30/2020 4:18 PM 021 7:37 PM Inpatient Code Status decision made by: Patient DNR 07/27/2015 12:43 PM 07/27/2015 8:43 PM Does patient have capacity to make decision: Yes Care Teams Assistant Therapy Aide Relationship Specialty Start Date End Date Tom Hay MD PCP - General General Internal Medicine 09/15/18 [facility] GENERAL [place] [address]
--- OUTSIDE RECORDS SUMMARY | 2022-07-12 00:43 | XMS_ITS | Encounter Summary ---
:1965 Author Organization [facility] Address [facility] [place] [address] Care Team Providers Name Role Phone Tom Hay MD Primary Care Provider Encounter Details Date Type Department Care Team Description 03/04/2022 Telephone Internal Medicine at [facility] Priyanka Mojica [place] [facility] [place] [address] Internal Medicine [phone] [place], [place] [address] (Wo rk) Social History Tobacco Use Types Packs/Day Years Used Date Current Every Day Smoker Cigarettes 0.25 13 Smokeless Tobacco: Never Used Comments: Patient has 3 cigarettes a day [...] Assigned at Date Recorded Not on file documented as of this encounter Miscellaneous Notes Telephone Encounter - Priyanka Mojica PA - 03/04/2022 7:45 PM EDT I called the patient this evening (next day) to see how she is feeling. She reports nausea and vomiting all day since taking Ozempic yesterday. This often happens the day after she takes it but she isfeeling sicker than usual. She didn't take insulin due to difficulty keeping down oral intake. She is urinating less today. I advised she be seen in closest ED and she will go to [facility]. documented in this encounter Plan of Treatment Upcoming Encounters Date Type Specialty Care Team Description 08/06/2022 Office Visit Plastic Surgery Peña Woodward MD [facility] PLASTIC SURGERY [place], [place] [address] (Wo josé luis) 08/19/2022 Office Visit Podiatry Tom Titus DPM [place], [place] [address] (Wo josé luis) 09/08/2022 Office Visit Internal Medicine Janay Hay MD [facility] GENERAL INTERNAL MEDICINE [place], [place] [address] (Wo rk) 10/12/2059 Hospital Encounter Surgery Jim Hanley MD [facility] DR [facility] [place], [place] [address] (Wo rk) Scheduled Procedures [...] Neck pain Pseudoarthrosis of cervical spine, sequela documented as of this encounter Visit Diagnoses Not on filedocumented in this encounter Care Teams Custom Clothier Relationship Specialty Start Date End Date Tom Hay MD PCP - General General Internal Medicine 09/15/18 [facility] GENERAL [place] [address] (work) documented as of this encounter
--- OUTSIDE RECORDS SUMMARY | 2022-07-12 00:43 | XMS_ITS | Encounter Summary ---
:1965 Author Organization [facility] [place] [address] Care Team Providers Name Role Phone Tom Hay MD Primary Care Provider Reason for Referral Consultation (Routine) - Closed Specialty Diagnoses / Procedures Referred By Contact Refer red To Contact Podiatry Diagnoses Plantar warts Tom Hay MD [facility] Podiatry [facility] GENERAL INTERNAL MED [facility] [address] [place] [address] Referral ID Status Reason Start Date Expiration Date Visits V isits Requested Authorized [id number] Closed Specialty 06/13/2022 06/13/2023 1 1 Service Requested Consultation (Routine) - Closed Specialty Diagnoses / Procedures Referred By Contact Refer red To Contact Maxillofacial Surgery Diagnoses Oral ulcer LESION OF MOUTH Tom Hay, [facility] Maxillo Surg [facility] [place], [place] GENERAL INTERNAL [id number] [place] [address] Referral ID Status Reason Start Date Expiration Date Visits V isits Requested Authorized [id number] Closed Consult, 06/13/2022 06/13/2023 1 1 Test & Treat Reason for Visit Reason Comments Follow-up Here to discuss A1c and surg alejandro clearance Encounter Details Date Type Department Care Team Description 06/13/2022 Office Visit Internal Medicine at Tom Hay oscorinne fracture of right elbow, sequela; [facility] MD Kevin Scalp psoriasis; [facility] Pso riasis; Drive Oral ulcer; [place], [place] GENERAL INTERNAL Plantar war ts; [id number] MEDICINE Uncontrolled type 2 diabetes mellitus wi th hyperglycemia; [phone] [place], [place] [address] Hypothyroidism, unspecified type; [phone] Type 2 diabetes mellitus with hyperglycemia, without long-term current use of insulin (Work) Social History Tobacco Use Types Packs/Day Years [...] place to sleep or slept in a residential (including now)? Sex Assigned at Date Recorded Not on file documented as of this encounter Last Filed Vital Signs Vital Sign Reading Time Taken Comments Blood Pressure 134/91 06/13/2022 2:48 PM EDT Pulse 98 06/13/2022 2:48 PM EDT Temperature 36.7 ??C (98.1 ??F) 06/13/2022 2:48 PM EDT Respiratory Rate 16 06/13/2022 2:48 PM EDT Oxygen Saturation 98% 06/13/2022 2:48 PM EDT Inhaled Oxygen Concentration - - Weight 85 kg (187 lb 6.4 oz) 06/13/2022 2:48 PM EDT Height - - Body Mass Index 31.18 03/11/2022 2:41 PM EDT documented in this encounter Patient Instructions Patient InstructionsTom Hay MD - 06/13/2022 2:40 PM EDT Change Ozempic to Trulicity 0.75 /week. If tolerated, can go to 1.5/week after a month Add empaglaflozin pill once/day documented in this encounter Progress Notes Tom Hay MD - 06/13/2022 2:40 PM EDT General Internal Medicine - Clinic Note Subjective -Joseline Rose is a 56 y.o. female presenting for follow up who has Asthma; Hypothyroid; Depression; Sleep apnea; Uncontrolled type 2 diabetes mellitus with hyperglycemia; COPD (chronicobstructive pulmonary disease); Bipolar II disorder; Vitamin D deficiency; Essential hypertension; and Hyperlipidemia on their pertinent problem list. -FU DM- on ozempic 2mg- still nauseous, having acid in stomach. Just as bad on 1. Off insulin; eating a lot. Can't tolerate metformin. On PPI BID and sucralfate Wanting plastic surgery. FBS 180-190 Smoking- has cut down to 2 cig/d chantix -fractured elbow 2 weeks ago - can't wear sling. Had a cast which was uncomfortable- so she took it off. Has ortho FU T. Didn't get labs. Psoriasis Sores in mouth- non healing. Plantar warts- tried multiple HCM-??11/01 JEANMARIE Family History CAD-??no Ca-??mother with breast, nonmelanoma skin.?? 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 Cut out due to diabetes. Smokes MJ- medical; no other illicits Current view: Showing all answers Show Only Relevant Answers Q - Phq9 7d Monitor Question 06/13/2022 2:44 PM EDT - Filed by Patient Over the LAST 2 WEEKS, how often have you been bothered by little interest or pleasure in doing things? Not at all Over the LAST 2 WEEKS, how often have you been bothered by feeling down, depressed, or hopeless? Not at all Over the LAST 2 WEEKS, how often have you been bothered by trouble falling or staying asleep, or sleeping too much? Nearly every day Over the LAST 2 WEEKS, how often have you been bothered by feeling tired or having no energy? Nearly every day Over the LAST 2 WEEKS, how often have you been bothered by poor appetite or overeating? More than half the days Over the LAST 2 WEEKS, how often have you been bothered by feeling bad about yourself or that you are a failure or have let yourself or your family down? Not at all Over the LAST 2 WEEKS, how often have you been bothered by trouble concentrating on things such as reading the newspaper or watching television? Not at all Over the LAST 2 WEEKS, how often have you been bothered by moving or speaking so slowly that peoplehave noticed? Or the opposite- being so fidgety or restless that you have been moving around a lot more than usual? Not at all Over the LAST 2 WEEKS, how often have you been bothered by thoughts that you would be better off or of hurting yourself in some way? Not at all How difficult have these problems made it for you to do your work, take care of things at home, or get along with other people? Not difficult at all Total PHQ-9 (range: -1 - 27) 8 (Mild Depression) Q - Adult Screener Question 06/13/2022 2:47 PM EDT - Filed by Patient Your provider and care team are interested in your own view of your health and things that may impact your health. We will ask you to complete this questionnaire once a year. What is the highest level of school you have completed or the highest degree you have received? Master's degree: (e.g. MA, MS, Zach, MEd, [employer], ROXANN) Who is completing this health questionnaire? I am (patient) How confident are you that you can control and manage most of your health problems? Somewhat Confident We recognize that many things beyond medical care affect your health and wellbeing. We have care team members with special knowledge of assistance programs and community resources. How hard is it for you to pay for the very basics like food, housing, medical care, and heating? Very hard What do you have trouble paying for? Within the past 12 months, you worried that your food would run out before you got the money to buymore. Often true Within the past 12 months, the food you bought just didn???t last and you didn???t have money to get more. Often true In the last 12 months, was there a time when you were not able to pay the mortgage or rent on time?Yes In the last 12 months, how many places have you lived? (range: at least 0) 1 In the last 12 months, was there a time when you did not have a steady place to sleep or slept in ashelter (including now)? No How often do you need to have someone help you when you read instructions, pamphlets, or other written material from your doctor or pharmacy? Never The next questions are about how you feel about different aspects of your life. For each one indicate how often you feel that way. How often do you feel that you lack companionship? Often How often do you feel left out? Hardly ever How often do you feel isolated from others? Some of the time In the past 12 months, has lack of transportation kept you from medical appointments or from getting medications? No In the past 12 months, has lack of transportation kept you from meetings, work, or from getting things needed for daily living? No What was your main activity during most of the last 12 months? Unemployed Do you have any legal issues that you are having difficulty resolving, such as disability, custody,parole, eviction, restraining orders, or other? No Do you feel unsafe in your relationships at home, school or work? No Has someone threatened to hurt you, your family or your pets? No Have you ever felt that someone wants to hurt you? No Does anyone try to keep you from having contact with others or doing things outside your home? No Do you have reliable use of a phone? Yes Are you able to speak on the phone in a safe and private manner? Yes Do you have reliable access to the internet? Yes Are you able to access the internet in a safe and private manner? Yes Social Isolation Score (range: 3 - 9) 6 Your responses to the last group of items indicate that you may have needs that we can help with. We have care team members with special knowledge of assistance programs and community resources. Help is free and confidential. What kind of help would you like? (Select one) I do not need help Should you wish help in the future, please let a member of your care team know. On average, how many days per week do you engage in moderate to strenuous exercise (like a brisk walk)? 2 days On average, how many minutes do you engage in exercise at this level? Q - Gad7 7d Monitor Question 06/13/2022 2:49 PM EDT - Filed by Patient Over the LAST 2 WEEKS, how often have you been bothered by feeling nervous, anxious or on edge? More than half the days Over the LAST 2 WEEKS, how often have you been bothered by not being able to stop or control worrying? Several days Over the LAST 2 WEEKS, how often have you been bothered by worrying too much about different things? Several days Over the LAST 2 WEEKS, how often have you been bothered by trouble relaxing? Several days Over the LAST 2 WEEKS, how often have you been bothered by being so restless that it is hard to sitstill? Several days Over the LAST 2 WEEKS, how often have you been bothered by becoming easily annoyed or irritable? Several days Over the LAST 2 WEEKS, how often have you been bothered by feeling afraid as if something awful might happen? Several days How difficult have these problems made it for you to do your work, take care of things at home, or get along with other people? Somewhat difficult GAD7 Total Scores (range: -1 - 21) 8 (Mild Anxiety) Q - Audit/Stacy Screener Question 06/13/2022 2:50 PM EDT - Filed by Patient In the past year have you had 4 or more drinks in a day containing alcohol? No In the past year have you used marijuana, an illegal drug or a prescription medication for non medical reasons? Yes In the past year, have you used opioids (oxycodone, Vicodin, heroin, fentanyl, buprenorphine, methadone, etc) for non-medical reasons? No The following questions concern information about your potential involvement with non-medical use of drugs(excluding alcohol and tobacco) during the past 12 months. Carefully read each sentence and select the appropriate box. Have you used drugs other than those required for medical reasons? Yes Do you use more than one drug at a time? No Are you always able to stop using drugs when you want to? Yes Have you had ???blackouts?? or ???flashbacks?? as a result of drug use? No Do you ever feel bad about your drug use? No Does your spouse, significant other or parents ever complain about your involvement with drugs? No Have you ever neglected your family or missed work because of your use of drugs? No Have you engaged in illegal activities in order to obtain drug? No Have you ever experienced withdrawal symptoms (felt sick) when you stopped taking drugs? No Have you had medical problems as a result of your drug use (e.g., memory loss, hepatitis, convulsions, bleeding, etc.)? No DAST10 Score (range: -1 - 10) 1 (Risky Use: Perform brief intervention) Physical Exam Vitals: 06/13/22 1448 BP: (!) 134/91 BP Location (NBP): Left arm Patient Position: Sitting BP Cuff Sizes: Adult (25-34 cm) Pulse: 98 Resp: 16 Temp: 36.7 ??C (98.1 ??F) TempSrc: Oral SpO2: 98% Weight: 85 kg (187 lb 6.4 oz) Gen - No apparent distress HEENT - oral ulcer and blackish pigment Neck - Lungs - Heart - Abdomen - Extremities - plantar warts Assessment and Plan 1. DM- not tolerating ozempic- will try changing to trulicity 1.5 and adding SGLT2. Chk labs today and in 3mo 2. Oral lesion- oral surg referral 3.plantar warts- refer to podiatry 4. Smoking- completely stop cigs 5. Sling for elbow FU documented in this encounter Miscellaneous Notes Addendum Note - Tatiana Pro - 06/13/2022 2:40 PM EDT Addended by: TATIANA PRO on: 06/13/2022 03:36 PM Modules accepted: Orders documented in this encounter Plan of Treatment Upcoming Encounters Date Type Specialty Care Team Description 08/06/2022 Office Visit Plastic Surgery Peña Woodward MD [facility] PLASTIC SURGERY [place], [place] [address] (Wo josé luis) 08/19/2022 Office Visit Podiatry Tom Titus DPM [place], [place] [address] (Flores rk) 09/08/2022 Office Visit Internal Medicine Janay Hay MD [facility] GENERAL INTERNAL MEDICINE [place], [place] [address] (Wo rk) 10/12/2059 Hospital Encounter Surgery Jim Hanley MD [facility] SPINE CENTER [place], [place] [address] (Flores ordonez) Scheduled Orders Name Type Priority Associated Diagnoses Order S chedule Hemoglobin A1c Lab STAT Uncontrolled type 2 Expect ed: 08/27/2022 diabetes mellitus with (Appr oximate), hyperglycemia Expires: 06/13 Comprehensive metabolic Lab STAT Uncontrolled type 2 Expected: 08/27/2022 panel (non-fasting) diabetes mellitus wit h (Approximate), hyperglycemia Expires: 06/13 Scheduled Procedures Name Priority Associated Diagnoses Date/Time [...] Neck pain Pseudoarthrosis of cervical spine, sequela Scheduled Referrals Name Type Priority Associated Diagnoses Order S chedule Referral to Oral Outpatient Referral Routine Oral ulcer Orde red: Surgery 06/13/2022 Referral to Outpatient Referral Routine Plantar warts Ordered : Podiatry 06/13/2022 documented as of this encounter Procedures Procedure Name Priority Date/Time Associated Comments Diagnosis HC HEMOGRAM STAT 06/13/2022 3:47 PM Type 2 diabetes Result s for this EDT mellitus with procedure are in hyperglycemia, the results without long-term section. current use of insulin HC THYROID STIMULATING STAT 06/13/2022 3:47 PM Hypothyroidi sm, Results for this HORMONE, SERUM EDT unspecified type procedure are in the results section. HC [...] without long-term section. current use of insulin documented in this encounter Results (ABNORMAL) Hemoglobin A1c (06/13/2022 3:47 PM EDT) Analysis Performed At Patho logist Time Signature Hemoglobin A1C 7.5 (H) 4.3 - 5.6 [facility] Comment: Reference Range: 4.3 - [...] Mellitus, Diabetes Care 2013; 36: Suppl. 1, R27-61 Est Avg Gluc 169 mg/dL [facility] Comment: eAG equivalents for HbA1c percentages: HbA1c(%) ?eAG(mg/dL) 6.0 ?126 6.5 ?140 7.0 ?154 7.5 ?169 8.0 ?183 8.5 ?197 9.0 ?212 9.5 ?226 10.0 ? 240 Limitations: The eAG calculation has not been validated on women, individuals below 18 years old and above 70 years old, and individuals with hemoglobinopathies. Additional resources are available on [facility] ADA website. Steve CHAO, Bhumi J, Kay R, et al. ??Tr anslating the A1C assay into estimated average glucose values. ??Diabetes Care 2008:31(8):6508-2810. Specimen Anatomical Collection Method Collection Time Receive d Time (Source) Location / / Volume Laterality Blood 06/13/2022 3:47 PM 3:59 EDT PM EDT Resulting Agency Comment Spec In Lab Tom Hay MD CHEMISTRY ORDERABLES Performing Organization Address City/State/[place] [address] (ABNORMAL) Comprehensive metabolic panel (non-fasting) (06/13/2022 3:47 PM EDT) P athologist Signature Glucose Lvl 161 65 - 199 [facility] mg/dL [facility] Comment: Diabetes: >=200 mg/dL plus symp toms BUN 11 8 - 18 mg/dL [facility] Creatinine 0.70 0.70 - 1.20 mg/dL [facility] Sodium 142 135 - 145 mmol/L [facility] Potassium 4.2 3.5 - 5.0 mmol/L [facility] Comment: Please note: ??Patients with [...] Anion Gap 13 5 - 15 mmol/L [facility] Calcium 9.3 8.5 - 10.5 mg/dL [facility] Total Protein 6.8 6.1 - 8.0 g/dL [facility] Albumin 3.9 3.2 - 5.2 g/dL [facility] AST 7 0 - 30 unit/L [facility] ALT 8 0 - 30 unit/L [facility] Alk Phos 77 35 - 105 unit/L [facility] Total Bilirubin <0.2 (L) 0.2 - 1.3 mg/dL [facility] Estimated GFR 103 >=60 mL/min/1.73 m?? [...] Organization Address City/State/[place] [address] (ABNORMAL) Hemogram (06/13/2022 3:47 PM EDT) Analysis Performed At Patho logist Time Signature WBC 11.2 (H) 4.0 - 9.5 [facility] x10(3)/[facility] LABORATORY RBC 4.62 4.00 - [facility] 5.21 [facility] x10(6)/[facility] LABORATORY Hemoglobin 14.0 11.7 - [facility] 15.5 g/dL [facility] Hematocrit 41.3 35.7 - [facility] 45.8 % [facility] MCV 89.4 82.6 - [place] [address] [facility] LABORATORY MCH 30.3 27.1 - [place] 32.0 pg [facility] MCHC 33.9 31.7 - [place] 35.0 g/dL [facility] Platelets 360 (H) 145 - 357 [place] x10(3)/[facility] LABORATORY RDWSD 41.2 37.0 - [place] [address] [facility] LABORATORY RDWCV 12.5 11.5 - [place] 14.1 % [facility] MPV 9.6 7.6 - 12.[address] [facility] LABORATORY nRBC % Auto 0.0 % [facility] nRBC Abs Auto 0.000 0.000 - [place] 0.000 [facility] x10(3)/[facility] LABORATORY Specimen Anatomical Collection Method Collection Time Receive d Time (Source) Location / / Volume Laterality Blood 06/13/2022 3:47 PM 2 3:59 EDT PM EDT Resulting Agency Comment Spec In Lab Tom Hay MD HEMATOLOGY ORDERABLES Performing Organization Address City/State/[place] [address] TSH (06/13/2022 3:47 PM EDT) P athologist Signature TSH 2.38 0.27 - 4.20 [place] mcIU/mL [facility] Comment: Reference Interval (mcIU/mL): Females: ??First Trimester: 0.23-3.88 ??Second Trimester: 0.22-3.90 ??Third Trimester: 0.44-4.66 Specimen Anatomical Collection Method Collection Time Receive d Time (Source) Location / / Volume Laterality Blood 06/13/2022 3:47 PM 2 3:59 EDT PM EDT Resulting Agency Comment Spec In Lab Tom Hay MD CHEMISTRY ORDERABLES Performing Organization Address City/[facility]/[place] [address] documented in this encounter Visit Diagnoses Diagnosis Myeloradiculopathy Unspecified nerve root and plexus disord er Closed fracture of right elbow, sequela Scalp psoriasis Other psoriasis Psoriasis Other psoriasis Oral ulcer Other and unspecified diseases of the or al soft tissues Plantar warts Plantar wart Uncontrolled type 2 diabetes mellitus wi th hyperglycemia Hypothyroidism, unspecified type Type 2 diabetes mellitus with hyperglyce harish, without long-term current use of insulin documented in this encounter Care Teams Collections Clerk Relationship Specialty Start Date End Date Tom Hay MD PCP - General General Internal Medicine 09/15/18 [facility] [place] [address] documented as of this encounter
--- OUTSIDE RECORDS SUMMARY | 2022-07-12 00:43 | XMS_ITS | Encounter Summary ---
:1965 Author Organization [facility] [place] [address] Care Team Providers Name Role Phone Tom Hay MD Primary Care Provider Encounter Details Date Type Department Care Team Description 04/07/2022 Telephone Pain and Spine Marin jacobsen at [facility] Lexie Julian, RN [facility] [place] [address] Social History Tobacco Use Types Packs/Day Years [...] place to sleep or slept in a long-term (including now)? Sex Assigned at Date Recorded Not on file documented as of this encounter Miscellaneous Notes Telephone Encounter - Lexie Julian RN - 04/07/2022 8:54 AM EDT Attempted to reach pt to discuss tramadol use. Last script written was as a potential bridge script to cover pts needs until ongoing plan reviewed with Dr Reese. Received communication from Dr Hay that he does not intend to assume pre-op, or any extended postop tramadol mgmt. At present time; Pt's surgery has not been rescheduled with Dr Hanley ( original surgical plans canceled/dealyed given high BG) Looking to connect with pt to advise her to use the supply as written to taper off. Our clinic will assume specific post op pain mgmt per our routine for the standard period tapering use with the intent to be off withinthe standard time frame post op- and ongoing chronic postop pain mgmt is not planned. Will continue to try reaching pt; challenged by pt Having no voice mail, no mydh, and no slate picker at time of call. 04/07/22 12 noon Explained to pt that I had reviewed with Dr Reese possibility of him managing maintenance pain mgmt given pt does not have secondary cervical spine surgical date for pseudoarthrosis. Explained that Dr Reese is declining to prescribe the Ultram as he does not thing she is a good candidate fro Chronic opioids. Explained that Chronic opioid mgmt is also not in the prevue of the surgeon; that the tramadol was initiated by Dr Hanley in February 2022 for interim short-term pain mgmt preop.Explained that we do not typically manage pain preoperatively; that this was initiated without knowledge that the planned surgery would be delayed for an unknown period of time given her challenge w byron verma mgmt/ high BG. Suggested she use the supply that she has on hand sparingly- to provide more lasting coverage while I review plans with Dr Hanley. Pt referenced that she had used medical marijuana previously as ordered through Dr Mcknight, but had let that certification lapse. Pt expressed interest in re- establishing medical marijuana. Chart reviewed; last seen by Dr Mcknight In December [address] Mcknight documented pt was no longer a candidate for medical marijuana as it was providing no benefit and there was question as to the source of her canibus use ( see 12/15/[address] Mcknight had indicated that she will no longer provide attestations for medical canibus in the future; that Joseline was not a candidate for further interventional procedures for for opioids. Suggested CBT, FRP, consideration of low dose naltrexone; and continued use of cmpunded ointment. 04/07/22 12:55 Call returned to pt advising that after performing a chart review and better appreciating the duration of time since seeing Dr Mcknight; accounting for that, Our access, and having noted inDr Roxanna's 12/15/17 note that she had NOT intended to provide future attestations for me Marijuana; that I thought seeking a referral from Dr Hanley to reestablish care with Dr Mcknight was unlikely to provide the outcomes pt was seeking. I Asked pt if she had ever dicussed the attestation for medical marijuana with her PCP; Suggested she consider doig that. Requested she keep us updated So I can review ongoing plans with Dr Hanley. Pt agreed. IB message sent to Dr Hanley to facilitate communication So I can understand his plans. 04/07/22 ~ 2pm. Discussed ongoing pain mgmt plan with Dr Hanley. Dr Dunham is recommending the following. - non opioid sx mgmt though PCP until BG/ managed and pt can procedure with surgery; alternatively seek a ref to a local Pain service from PCP- but would not advocate for regular opioid use preop. - to instruct pt to continue to refrain from smoking (during earlier conversation today, pt reportedhaving just quit) to facilitate surgical readiness and aid outcomes- once she is cleared to proceed with surgery for pseudarthrosis- - to reduce use of tramadol as previously instructed- to utilize the supply of tramadol as ordered by Dr Hanley 04/02/[address] Hanley is not comfortable writing for long-term ultram- or ongoing pre-operatve opioid mgmt given there is no surgical date at this time and it is unknown how long it will take pt to be optimized to proceed with secondary fusion surgery - to review with pt non pharmacological pain mgmt options to maximize ( repositioning, modified activity, healthy choices, relaxation/not guarding, ice/heat, utilization of most comfortable posture/position regularly). 3:40 Called pt to review above recommendations verbally with pt. Pt expressed thanks for the call/recommendations. documented in this encounter Plan of Treatment Upcoming Encounters Date Type Specialty Care Team Description 08/06/2022 Office Visit Plastic Surgery Peña Woodward MD [facility] PLASTIC SURGERY [place], [place] [address] (Wo rk) 08/19/2022 Office Visit Podiatry Tom Titus DPM [place], [place] [address] (Wo rk) 09/08/2022 Office Visit Internal Medicine Janay Hay MD [facility] GENERAL INTERNAL MEDICINE [place], [place] [address] (Wo rk) 10/12/2059 Hospital Encounter Surgery Jim Hanley MD [facility] SPINE CENTER [place], [place] [address] (Wo rk) Scheduled Procedures Name [...] on filedocumented in this encounter Care Teams Language Asst Relationship Specialty Start Date End Date Tom Hay MD PCP - General General Internal Medicine 09/15/18 [facility] GENERAL [place] [address] documented as of this encounter
--- OUTSIDE RECORDS SUMMARY | 2022-07-12 00:43 | XMS_ITS | Encounter Summary ---
:1965 Author Organization [facility] [place] [address] Care Team Providers Name Role Phone Tom Hay MD Primary Care Provider Reason for Visit Consultation (Routine) - Closed Specialty Diagnoses / Procedures Referred By Contact Refer red To Contact Podiatry Diagnoses Plantar warts Tom Hay MD [facility] Podiatry [facility] [place] [address] [place] [address] Referral ID Status Reason Start Date Expiration Date Visits V isits Requested Authorized [id number] Closed Specialty 06/13/2022 06/13/2023 1 1 Service Requested Encounter Details Date Type Department Care Team Description 06/26/2022 Office Visit Podiatry at [facility] Thanh Titus; [facility] ALEXANDRA Marshall Right foot pain; [facility] Type 2 diabetes mellitus wit h peripheral neuropathy [place], [place] [address] [id number] [place] [id number] Social History Tobacco Use Types Packs/Day Years [...] on file documented as of this encounter Progress Notes Tom Titus DPM - 06/26/2022 9:30 AM EDT DM shoe packet sent to [facility] via fax. PCP notified and patient letter sent. Tabatha Jacobson LPN Outpatient Podiatry Clinic Note Name: Joseline Rose Age:56 y.o. MR#: [id number] Date of Service: 06/26/2022 SUBJECTIVE: Joseline Rose is a 56 y.o. female who presents to the clinic today with chief complaint of multiple painful plantar wart type lesions on the right foot. He has been present for a few years or so. She is tried [id number] remedies such as salicylic acid, duct tape, etc. with no sig nificant improvement. She is seeking further treatment options today. She also is a type II diabeticwith numbness in her feet and has worn accommodative diabetic shoes with orthotics in the past and needs a new pair of these if possible. She says her hemoglobin A1c has improved significantly from over 11 to just over 7 recently. It is my pleasure seeing her today. Allergies Allergen Reactions ??? Latex Rash ??? Metformin Nausea And Vomiting ??? Clonazepam Nausea And Vomiting Nauseous, itchy ??? Clonidine (Pf) Other (See Comments) olea johnsons syndrome ??? Codeine Itching and Nausea Only ??? Hydrocodone-Acetaminophen Itching rash ??? Methadone Nausea And Vomiting Had trouble walking and talking after taking for a few days Past Medical History: Diagnosis Date ??? Allergy ??? Arthritis ??? Asthma ??? Asthma ??? Cardiac disease ??? Cervicalgia ??? Chronic pain neck, bilat shoulders and arms ??? Combined forms of age-related cataract of both eyes 08/18/2016 ??? COPD (chronic obstructive pulmonary disease) 01/27/2018 stable ??? Depression ??? Diabetes treated with oral medication and weekly injection ??? Diabetes mellitus ??? Diverticulosis ??? Dysphagia ??? Essential hypertension 01/27/2018 ??? Gallstones ??? Gastroesophageal reflux mostly controlled with medication ??? GERD (gastroesophageal reflux disease) ??? Headache(784.0) ??? High blood pressure treated with medication ??? Hyperlipidemia 01/27/2018 ??? Hypothyroid treated with medication ??? Intraoperative complication during , 02 levels dropped, they eased up on anesthesia, and she felt them cut her open ??? Leukocytosis 06/05/2011 ??? Mental health problem depression and anxiety ??? Mixed incontinence ??? Motion sickness can't read in car, can sit in back seat only if window is open, and get sick on air planes ??? Neuromuscular disorder ??? SEB (obstructive sleep apnea) ??? Post-operative nausea and vomiting has happened a couple of times after surgery ??? Rheumatic fever ??? Skin disease ??? Syncope fainted a lot in her 20's, nothing recently ??? Thyroid disease ??? Transfusion history 2019 r/t surgical procedure ??? Trauma ??? Vertigo balance issues r/t neck, has vertigo treated with meclizine Social History Socioeconomic History ??? Marital status: Spouse name: Not on file ??? Number of children: 2 ??? Years of education: Not on file ??? Highest education level: Not on file Occupational History ??? Occupation: disability Tobacco Use ??? Smoking status: Current Every Day Smoker Packs/day: 0.25 Years: 13.00 Pack years: 3.25 Types: Cigarettes ??? Smokeless tobacco: Never Used ??? Tobacco comment: Patient has 3 cigarettes a day Vaping Use ??? Vaping Use: Never used Substance and Sexual Activity ??? Alcohol use: No Alcohol/week: 0.0 standard drinks ??? Drug use: Yes Types: Marijuana Comment: has medical marijuana card ??? Sexual activity: Not Currently Comment: question deferred Other Topics Concern ??? Not on file Social History Narrative Jim HERNANDEZ, lives alone, family in [place] - mother and her children (ages 30 and 32) Social Determinants of Health Financial Resource Strain: High Risk ??? Difficulty of Paying Living Expenses: Very hard Food Insecurity: Food Insecurity Present ??? Worried About Running Out of Food in the Last Year: Often true ??? Ran Out of Food in the Last Year: Often true Transportation Needs: No Transportation Needs ??? Lack of Transportation (Medical): No ??? Lack of Transportation (Non-Medical): No Physical Activity: Unknown ??? Days of Exercise per Week: 2 days ??? Minutes of Exercise per Session: Not on file Housing Stability: High Risk ??? Unable to Pay for Housing in the Last Year: Yes ??? Number of Places Lived in the Last Year: 1 ??? Unstable Housing in the Last Year: No Family History Problem Relation Age of Onset ??? Migraines Mother ??? Macular Degeneration Mother ??? Alzheimer Disease Mother ??? Postoperative Nausea and Vomiting Mother ??? Migraines Father ??? Migraines Brother ??? Migraines Daughter ??? Postoperative Nausea and Vomiting Daughter ??? Amblyopia Neg Hx ??? Blindness Neg Hx ??? Cancer Neg Hx ??? Cataracts Neg Hx ??? Diabetes Neg Hx ??? Glaucoma Neg Hx ??? Hypertension Neg Hx ??? Retinal Detachment Neg Hx ??? Strabismus Neg Hx ??? Stroke Neg Hx ??? Thyroid Disease Neg Hx ??? Heart Disease Neg Hx Current Outpatient Medications on File Prior to Visit Medication Sig Dispense Refill ??? erythromycin (Romycin) 5 mg/gram (0.5 %) Ointment Apply a thin layer to your right lower lid 3 times a day for 5 days 3.5 g 0 ??? amoxicillin-clavulanate (Augmentin) 875-125 mg Tablet Take 1 tablet by mouth 2 times daily for 7days. 14 tablet 0 ??? fluocinonide (LIDEX) 0.05 % Solution Apply twice daily to worse scalp psoriasis on weekends-onlyas needed 60 mL 5 ??? empagliflozin (Jardiance) 10 mg Tablet Take 1 tablet by mouth daily. 90 tablet 3 ??? dulaglutide (Trulicity) 1.5 mg/0.5 mL Pen Injector Inject 0.5 mLs subcutaneously once a week. Indications: type 2 diabetes mellitus 2 mL 11 ??? betamethasone-calcipotriene (TACLONEX SCALP) 0.005-0.064 % Suspension Apply twice daily for 5 days out of the week 120 g 3 ??? Clobetasol-Emollient (Olux-E) 0.05 % Foam Apply twice daily to worse scalp psoriasis on weekends-only as needed dispense 3 bottles please 200 g 0 ??? fluticasone propionate (Flonase) 50 mcg/actuation [place], Suspension 1 spray by Each Nare route daily. 16 g 12 ??? olopatadine (Patanol) 0.1 % Drops Place 1 drop into both eyes 2 times daily. 5 mL 12 ??? traMADoL (Ultram) 50 mg Tablet Take 1 tablet by mouth every 6 hours as needed for Pain for up to56 doses. 56 tablet 0 ??? ondansetron ODT (Zofran ODT) 4 mg Tablet, Rapid Dissolve Take 1-2 tablets by mouth every 8 hoursas needed for Nausea. 12 tablet 3 ??? ibuprofen (Motrin) 400 mg Tablet Take 1 tablet by mouth every 6 hours as needed for Pain. 180 tablet 3 ??? BD Alcohol Swabs Pads, Medicated 1 each 4 times daily. 100 each 3 ??? albuteroL (ProAir HFA) 90 mcg/actuation HFA Aerosol Inhaler Inhale 2 puffs into the lungs every 4 hours as needed for Wheezing. Use with spacer 4 each 3 ??? ergocalciferoL, vitamin D2, (vitamin D2) 50,000 unit Capsule Take 1 capsule by mouth once a week. 12 capsule 3 ??? sucralfate (Carafate) 100 mg/mL Suspension Take 10 mLs by mouth 4 times daily. 3600 mL 3 ??? pregabalin (Lyrica) 75 mg Capsule Take 1 capsule by mouth 2 times daily. 180 tablet 1 ??? valACYclovir (VALTREX) 1 gram Tablet Take 1 tablet by mouth 2 times daily. 180 tablet 3 ??? qmqfhpgkbyv-rrsnybepyila-asjanenjzu (Trelegy Ellipta) Inhale 1 puff into the lungs daily. 60 each 3 ??? DULoxetine DR (Cymbalta) 60 mg Capsule, Delayed Release(E.C.) Take 1 capsule by mouth daily. 90 capsule 3 ??? glipiZIDE (Glucotrol) 5 mg Tablet Take 1 tablet by mouth daily. 90 tablet 3 ??? esomeprazole (NexIUM) 40 mg Capsule, Delayed Release(E.C.) Take 1 capsule by mouth 2 times daily. 180 capsule 3 ??? amLODIPine (Norvasc) 10 mg Tablet Take 1 tablet by mouth daily. 90 tablet 3 ??? atorvastatin (Lipitor) 20 mg Tablet Take 1 tablet by mouth daily. 90 tablet 3 ??? levothyroxine (Synthroid) 150 mcg Tablet Take 2 tablets by mouth daily. Take in addition to the 25mcg to equal 325mcg 180 tablet 3 ??? levothyroxine (Synthroid) 25 mcg Tablet Take 1 tablet by mouth daily. 90 tablet 3 ??? hydroCHLOROthiazide (Hydrodiuril) 50 mg Tablet Take 1 tablet by mouth daily. 90 tablet 3 ??? varenicline (Chantix) 1 mg Tablet Take 1 tablet by mouth 2 times daily. 60 tablet 5 ??? metroNIDAZOLE (METROCREAM) 0.75 % Cream Apply topically 2 times daily. 45 g 5 ??? blood-glucose meter (FREESTYLE) Kit 1 each by [facility]Non-Drug; Combo Route) route as needed for Other. 1 each 0 ??? nystatin (Mycostatin) 100,000 unit/mL Suspension SAS 5 ML PO QID PRF THRUSH 473 mL 3 ??? meclizine (Antivert) 25 mg Tablet Take 1 tablet by mouth 3 times daily as needed. 90 tablet 3 ??? metoclopramide (REGLAN) 5 mg Tablet Take 1 tablet by mouth 4 times daily. 80 tablet 0 ??? methocarbamoL (ROBAXIN) 750 mg Tablet Take 1 tablet by mouth 3 times daily as needed. 30 tablet 0 ??? blood sugar diagnostic strips Strip Use as instructed to check BG 4 times daily. (Freestyle Lite)DX code E11.9 IDD 300 each 3 ??? Vitamin D 25 mcg (1,000 unit) Tablet Take 2 tablets by mouth daily. 90 tablet 0 ??? cholecalciferol, Vitamin D3, 1,250 mcg (50,000 unit) Capsule Take 1 capsule by mouth once a week. 52 capsule 0 ??? ipratropium-albuteroL (DUONEB) 0.5 mg-3 mg(2.5 mg base)/3 mL Solution for Nebulization Take 0.5 mg by nebulization 4 times daily. 1 Box 4 ??? naratriptan (Amerge) 2.5 mg Tablet Take 1 tablet by mouth as needed for Migraine. if returns or does not resolve, may repeat once after 4 hours 10 tablet 3 ??? lancets (FreeStyle Lancets) 28 gauge [facility] Dx E11.9 IDD please test 4x/day with lancets Indications: diabetes mellitus 125 each 11 ??? cycloSPORINE (Restasis) 0.05 % Dropperette Place 1 drop into both eyes every 12 hours. 180 vial 3 ??? clotrimazole (MYCELEX) 10 mg Gary DIS 1 MOLLY PO TID 30 tablet 3 ??? Calcipotriene 0.005 % Solution as needed. ??? estradiol (ESTRACE) 0.01 % (0.1 mg/gram) Cream Place vaginally as needed. 4 ??? ondansetron (ZOFRAN) 4 mg Tablet Take 1 tablet by mouth every 8 hours as needed for Nausea. 20 tablet 3 ??? fluticasone (VERAMYST) 27.5 mcg/actuation [place], Suspension 2 sprays by Nasal route daily. Indications: Allergic Rhinitis No current facility-administered medications on file prior to visit. ROS: Per HPI EXAMINATION: GEN: Patient is in no acute distress, alert, awake. DERM: The right foot demonstrates multiple areas of well-circumscribed papulosquamous. Lesions consistent with verruca plantaris. There is a large cluster formation plantar lateral right foot with whatlooks like 7 separate with cluster in this region. The entire cluster is approximately 2 cm in diameter. There is a lesion on the heel and a solitary approximately 3 to 4 mm in size 1 on the toe sulcusof the third right toe and another lesion medial distal foot which is also a solitary lesion. These all appear to be consistent with verruca plantaris. There are no other lesions noted to either foot. VASC: Dorsalis pedis + 2/4 bilaterally and posterior tibial pulse + 2/4 bilaterally. Capillary refill 3 seconds to all digits. No significant edema noted. No varicose veins. No claudication, no rest pain, no color changes. Posterior calves soft and nontender. NEURO: Epicritic sensation intact to light touch bilaterally. No significant evidence of sensory neuropathy to either lower extremity. MSK: Unremarkable musculoskeletal examination today without significant gross deformity. ASSESSMENT: Verruca plantaris multiple lesions right foot Right foot pain Neuropathy from diabetes with decreased protective sensation PLAN: We discussed different treatment options today. Lesions were carefully debrided. These lesions have been present for a few years or so and I will prescribe a topical medication from [facility] pharmacy which will be fluorouracil 5%, salicylic acid, and a topical solution to be applied 1 time per day at bedtime cover with a Band-Aid. I did explain that these lesions are difficult to resolve quickly and not she needs to use this consistently over time to be successful I will see her back in 6 weeks for follow-up debridement of these lesions. She agrees with this plan. I also sent in a prescription for accommodative diabetic shoes and orthotics which she has had in the past through [facility] in both [place]. These are medically necessary for her at this time. It has been my pleasure seeing parents today. FOLLOW UP: Sean Titus DPM, MS Platform Engineer, [facility] documented in this encounter Plan of Treatment Upcoming Encounters Date Type Specialty Care Team Description 08/06/2022 Office Visit Plastic Surgery Peña Woodward MD [facility] PLASTIC SURGERY [place], [place] [address] (Wo rk) 08/19/2022 Office Visit Podiatry Tom Titus DPM [place], [place] [address] (Wo rk) 09/08/2022 Office Visit Internal Medicine Janay Hay MD [facility] GENERAL INTERNAL MEDICINE [place], [place] [address] (Wo rk) 10/12/2059 Hospital Encounter Surgery Jim Hanley MD [facility] SPINE CENTER [place], [place] [address] (Wo rk) Scheduled Procedures Name [...] documented as of this encounter Visit Diagnoses Diagnosis Myeloradiculopathy Unspecified nerve root and plexus disord er Verruca plantaris Plantar wart Right foot pain Pain in limb Type 2 diabetes mellitus with peripheral neuropathy documented in this encounter Care Teams Page Designer Relationship Specialty Start Date End Date Tom Hay MD PCP - General General Internal Medicine 09/15/18 [facility] GENER[place] [address] documented as of this encounter
--- OUTSIDE RECORDS SUMMARY | 2022-07-12 00:43 | XMS_ITS | Encounter Summary ---
:1965 Author Organization [facility] [place] [address] Care Team Providers Name Role Phone Tom Hay MD Primary Care Provider Reason for Visit Reason Onset Date Comments Results 06/23/2022 Covid negative Encounter Details Date Type Department Care Team Description 06/23/2022 Telephone Public Health at [facility] jK Naqvi, Results ([facility] RN negative) [place] [address] Social History Tobacco Use Types Packs/Day [...] place to sleep or slept in a usp (including now)? Sex Assigned at Date Recorded Not on file documented as of this encounter Miscellaneous Notes Telephone Encounter - Kj Naqvi RN - 06/23/2022 9:06 AM EDT Pt called for her Covid test results and also her A1c. Provided pt with results documented in this encounter Plan of Treatment Upcoming Encounters Date Type Specialty Care Team Description 08/06/2022 Office Visit Plastic Surgery Peña Woodward MD [facility] PLASTIC SURGERY [place], [place] [address] ( josé luis) 08/19/2022 Office Visit Podiatry Tom Titus DPM [place], [place] [address] (Flores ordonez) 09/08/2022 Office Visit Internal Medicine Janay Hay MD [facility] GENERAL INTERNAL MEDICINE [place], [place] [address] ( josé luis) 10/12/2059 Hospital Encounter Surgery Jim Hanley MD [facility] SPINE CENTER [place], [place] [address] (Flores ordonez) Scheduled Procedures Name Priority Associated Diagnoses Date/Time [...] on filedocumented in this encounter Care Teams Waste Cotton Cleaner Relationship Specialty Start Date End Date Tom Hay MD PCP - General General Internal Medicine 09/15/18 [facility] [place] [address] documented as of this encounter
--- OUTSIDE RECORDS SUMMARY | 2022-07-12 00:43 | XMS_ITS | Encounter Summary ---
:1965 Author Organization [facility] [place] [address] Care Team Providers Name Role Phone Tom Hay MD Primary Care Provider Reason for Visit Reason Onset Date Comments Medication Refill 03/05/2022 Encounter Details Date Type Department Care Team Description 03/05/2022 Refill Pain and Spine [place] jacobsen at [facility] [place] [address] Social History Tobacco Use Types Packs/Day [...] place to sleep or slept in a fdc (including now)? Sex Assigned at Date Recorded Not on file documented as of this encounter Miscellaneous Notes Telephone Encounter - Nenita Hawkins LPN - 03/05/2022 4:[address] Hanley authorizes refill Telephone Encounter - Nenita Hawkins LPN - 03/05/2022 2:01 PM EDT Joseline called requesting a refill of Tramadol 50 mg 1 Q6 PRN pain. She had been scheduled for surgery 03-14-22, but at her H&P her glucose was over 1000. So she is not cleared and surgery will have to be postponed. Planned surgery is Posterior Cervical Instrumented Fusion C5-7 possible extension to T1 She is also scheduled for a MRI on 03-07-22, she wonders if she should keep that appointment. If Dr. Hanley authorizes will pend Tramadol script to him for signature She also wonders when surgery can be rescheduled. documented in this encounter Plan of Treatment Upcoming Encounters Date Type Specialty Care Team Description 08/06/2022 Office Visit Plastic Surgery Peña Woodward MD [facility] PLASTIC SURGERY [place], [place] [address] (Wo rk) 08/19/2022 Office Visit Podiatry Tom Titus DPM [facility] [address] [place], [place] [address] (Wo rk) 09/08/2022 Office Visit Internal Medicine Janay Hay MD [facility] GENERAL INTERNAL MEDICINE [place], [place] [address] (Wo rk) 10/12/2059 Hospital Encounter Surgery Jim Hanley MD [facility] DR SPINE CENTER [place], [place] [address] (Flores rk) Scheduled Procedures Name Priority Associated Diagnoses [...] on filedocumented in this encounter Care Teams Gas Generator Operator Relationship Specialty Start Date End Date Tom Hay MD PCP - General General Internal Medicine 09/15/18 [facility] [place] [address] documented as of this encounter
--- OUTSIDE RECORDS SUMMARY | 2022-07-12 00:43 | XMS_ITS | Encounter Summary ---
:1965 [place] [address] Care Team Providers Name Role Phone Tom Hay MD Primary Care Provider Reason for Visit Reason Onset Date Comments Prior Authorization 06/13/2022 Clobetasol Propionat e Emulsion 0.05% foam Encounter Details Date Type Department Care Team Description 06/13/2022 Telephone Internal Medicine at Mehreen Reilly, Prior Authorization [facility] [place] [facility] CCMA (Clobetasol Propionate [facility] Emulsion 0.05% foam) [place] [address] Social History Tobacco Use Types Packs/Day [...] place to sleep or slept in a senior care (including now)? Sex Assigned at Date Recorded Not on file documented as of this encounter Miscellaneous Notes Telephone Encounter - Priyanka Mo CMA - 06/17/2022 8:45 AM EDT Images from the original note were not included. Medication Prior Authorization [place] [id number] DENIED: Clobetasol Propionate Emulsion 0.05% foam Case/Reference #: [id number] Additional Information from Insurance: Please see reason for denial below. Telephone Encounter - Mehreen Reilly CCMA - 06/13/2022 4:09 PM EDT Medication Prior Authorization Request received via: [facility] Patient: Joseline Rose Patient : 1965 Insurance Company: [employer] Sent via: [facility] Jolly: [id number] Physician: Tom Hay MD Medication Requested:Clobetasol-Emollient (Olux-E) 0.05 % Foam Frequency/Sig: Apply twice daily to worse scalp psoriasis on weekends-only as needed dispense 3 bottles please ?? Disp: 200g Refills: 0 Currently taking: yes If yes, how lon12/2014 to current Diagnosis for this medication: Psoriasis (L40.9) Prior medications trialed in this patient: Medication: betamethasone, augmented, (DIPROLENE) 0.05 % Lotion Approx Dates: 04/2011 to 10/2019 Outcome/Adverse Reactions: Inadequate response Medication: Calcipotriene 0.005 % Solution Approx Dates: 06/2018 to 10/2019 Outcome/Adverse Reactions: Inadequate response Medication: betamethasone-calcipotriene (TACLONEX SCALP) 0.005-0.064 % Suspension Approx Dates: 10/2010 to current Outcome/Adverse Reactions: Inadequate response by itself Medication: clobetasol (TEMOVATE) 0.05 % Solution Approx Dates: 07/2011 to 12/2017 Outcome/Adverse Reactions: Inadequate response Additional Notes: Camilo Coffey MD Dermatology 02/05/2021 Antecedent History: History of scalp psoriasis for many years currently treating with Taclonex 3 times a week and clobetasol foam 3-4 times a week with limited improvement. ??Here to discuss additionalmanagement. ??Previously treated with topical steroids and a few treatments with Excimer laser; joint treatment with topical and narrowband phototherapy notable for significant improvement Allergies Latex, Metformin, Clonazepam, Clonidine (pf), Codeine, Hydrocodone- acetaminophen, and Methadone ?? Follow-up: 3 months for scalp psoriasis or return to clinic prn for new suspicious lesions or if changes/symptoms in existing lesions develop. ?? documented in this encounter Plan of Treatment Upcoming Encounters Date Type Specialty Care Team Description 08/06/2022 Office Visit Plastic Surgery Peña Woodward MD [facility] PLASTIC SURGERY [place], [place] 5 (Wo josé luis) 08/19/2022 Office Visit Podiatry Tom Titus DPM [place], [place] [address] (Flores ordonez) 09/08/2022 Office Visit Internal Medicine Janay Hay MD [facility] GENERAL INTERNAL MEDICINE [place], [place] 1 (Wo rk) 10/12/2059 Hospital Encounter Surgery Jim Hanley MD [facility] SPINE CENTER [place], [place] [address] (Wo rk) Scheduled Procedures Name [...] on filedocumented in this encounter Care Teams Charge Rn Relationship Specialty Start Date End Date Tom Hay MD PCP - General General Internal Medicine 09/15/18 [facility] GENERAL [place] [address] documented as of this encounter
--- OUTSIDE RECORDS SUMMARY | 2022-07-12 00:43 | XMS_ITS | Encounter Summary ---
:1965 Author Organization [facility] [place] [address] Care Team Providers Name Role Phone Tom Hay MD Primary Care Provider Reason for Referral Diagnostic Test (Routine) - Closed Specialty Diagnoses / Procedures Referred By Contact Refer red To Contact Radiology Diagnoses H/O cervical spinal arthrodesis Pseudoarthrosis of cervical spine, sequela Rashard Hanley MD [facility] Rad Mri Procedures MRI Cervical [place] [address] [place] [address] Referral ID Status Reason Start Date Expiration Date Visits V isits Requested Authorized [id number] Closed Specialty 07/01/2022 12/29/2023 1 1 Service Requested Encounter Details Date Type Department Care Team Description 06/30/2022 Orders Only Pain and Spine Rashard Hanley, S/P C6 c orpectomy, C5-7 ACCF 11/30/20 Dr. Hanley; Center at [facility] Pseudoarthrosis of cervical spine, seque la [facility] [address] [place] SPINE CENTER [address] [place] [address] [phone] Social History Tobacco Use Types Packs/Day Years [...] place to sleep or slept in a detention (including now)? Sex Assigned at Date Recorded Not on file documented as of this encounter Progress Notes Ladraius Dahl RN - 06/30/2022 2:44 PM EDT Received call from patient, she thought she was scheduled to meet with Dr. Hanley tomorrow to plan surgery, actual appointment is on 07/15/2022. She was calling to say that she is awaiting biopsy results from an oral lesion and she is not certain if she will need to address that before considering herneck surgery. Review of 02/25/2022 note from visit with Dr. Hanley indicates that she needed updated cervical MRI with/without contrast prior to surgical planning. MRI has not been completed. Above reviewed with Dr. Hanley, will reorder MRI, patient to get results of oral biopsy and than she will be able to determine if she will need to address that first or if she can proceed to her cervical surgery and obtain MRI and set up appointment with Dr. Hanley to plan surgery. 07/09/2022 f/u with patient, she reports that she needs to address her oral issues first before moving ahead with addressing her neck. She will hold off on updating cervical MRI and f/u with Dr. Hanleyuntil her other issue is addressed. Dr. Hanley aware. documented in this encounter Plan of Treatment Upcoming Encounters Date Type Specialty Care Team Description 08/06/2022 Office Visit Plastic Surgery Peña Woodward MD [facility] PLASTIC SURGERY [place], [place] [address] ( rk) 08/19/2022 Office Visit Podiatry Tom Titus DPM [place], [place] [address] ([facility]) 09/08/2022 Office Visit Internal Medicine Janay Hay MD [facility] GENERAL INTERNAL MEDICINE [place], [place] [address] (Wo rk) 10/12/2059 Hospital Encounter Surgery Jim Hanley MD [facility] SPINE CENTER [place], [place] [address] ( rk) Scheduled Orders Name Type Priority Associated Diagnoses Order S chedule MRI Cervical Spine wwo Imaging Routine S/P C6 corpectomy, C5-7 Expected: 07/31/2022, Contrast ACCF 11/30/20 Dr. Hanley Expires: 10/31/2022 Pseudoarthrosis of cervical spine, sequela Scheduled Procedures Name Priority Associated Diagnoses Date/Time [...] Unspecified nerve root and plexus disord er S/P C6 corpectomy, C5-7 ACCF 11/30/20 Dr. 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
--- OUTSIDE RECORDS SUMMARY | 2022-07-12 00:43 | XMS_ITS | Encounter Summary ---
:1965 Author Organization [facility] Address [address] [place] [address] Care Team Providers Name Role Phone Tom Hay MD Primary Care Provider Encounter Details Date Type Department Care Team Description 03/12/2022 Orders Only Internal Medicine at Tom Hay Ty pe 2 diabetes [facility] [place] [facility] MD Kevin mellitus with [facility] hyp erglycemia, without Drive long-term current use [place], [place] GENERAL INTERNAL of insulin [phone] MEDICINE [phone] [place], [place] [address] (Wo rk) Social History Tobacco [...] on file documented as of this encounter Plan of Treatment Upcoming Encounters Date Type Specialty Care Team Description 08/06/2022 Office Visit Plastic Surgery Peña Woodward MD [facility] PLASTIC SURGERY [place] [phone] ( rk) 08/19/2022 Office Visit Podiatry Tom Titus DPM [place] [phone] ([facility]) 09/08/2022 Office Visit Internal Medicine Janay Hay MD [facility] GENERAL INTERNAL MEDICINE [place], [place] [address] (Wo rk) 10/12/2059 Hospital Encounter Surgery Jim Hanley MD [facility] SPINE CENTER [place], [place] [address] (Wo rk) Scheduled Procedures Name [...] spine, sequela documented as of this encounter Results (ABNORMAL) Hemogram (06/13/2022 3:47 PM EDT) Analysis Performed At Patho logist Time Signature WBC 11.2 (H) 4.0 - 9.5 [facility] x10(3)/[facility] LABORATORY RBC 4.62 4.00 - [place] 5.21 [facility] x10(6)/[facility] LABORATORY Hemoglobin 14.0 11.7 - [place] [place] 15.5 g/dL [facility] LABORATORY Hematocrit 41.3 35.7 - [place] 45.8 % [facility] LABORATORY MCV 89.4 82.6 - [place] [place] 94.4 fL [facility] LABORATORY MCH 30.3 27.1 - [place] [place] 32.0 pg [facility] LABORATORY MCHC 33.9 31.7 - [facility] [place] 35.0 g/dL [facility] LABORATORY Platelets 360 (H) 145 - 357 [facility] x10(3)/[facility] LABORATORY RDWSD 41.2 37.0 - [facility] 46.0 [facility] LABORATORY RDWCV 12.5 11.5 - [facility] 14.1 % [facility] LABORATORY MPV 9.6 7.6 - 12.9 [facility] LABORATORY nRBC % Auto 0.0 % [facility] LABORATORY nRBC Abs Auto 0.000 0.000 - [facility] 0.000 [facility] x10(3)/[facility] LABORATORY Specimen Anatomical Collection Method Collection Time Receive d Time (Source) Location / / Volume Laterality Blood 06/13/2022 3:47 PM 3:59 EDT PM EDT Resulting Agency Comment Spec In Lab Tom Hay MD HEMATOLOGY ORDERABLES Performing Organization Address City/State/[place] [address] (ABNORMAL) Comprehensive metabolic panel (non-fasting) (06/13/2022 3:47 PM EDT) P athologist Signature Glucose Lvl 161 65 - 199 [facility] mg/dL [facility] LABORATORY Comment: Diabetes: >=200 mg/dL plus symp toms BUN 11 8 - 18 mg/dL [facility] LABORATORY Creatinine 0.70 0.70 - 1.20 mg/dL [facility] LABORATORY Sodium 142 135 - 145 mmol/L [facility] LABORATORY Potassium 4.2 3.5 - 5.0 mmol/L [facility] LABORATORY Comment: Please note: ??Patients with WBC >100,00 0 may have falsely elevated Potassium levels. ??For accurate Potassium quantif ication in these patients send serum separator tube (gold top) for subsequent determinations. ??Contact the Clinical Chemistry Laboratory if there are any qu estions. Chloride 105 98 - 107 mmol/L [facility] LABORATORY CO2 24 22 - 31 mmol/L [facility] LABORATORY Anion Gap 13 5 - 15 mmol/L [facility] LABORATORY Calcium 9.3 8.5 - 10.5 mg/dL [facility] LABORATORY Total Protein 6.8 6.1 - 8.0 g/dL [facility] LABORATORY Albumin 3.9 3.2 - 5.2 g/dL [facility] LABORATORY AST 7 0 - 30 unit/L [facility] LABORATORY ALT 8 0 - 30 unit/L [facility] LABORATORY Alk Phos 77 35 - 105 unit/L [facility] LABORATORY Total Bilirubin <0.2 (L) 0.2 - 1.3 mg/dL [facility] LABORATORY Estimated GFR 103 >=60 mL/min/1.73 m?? [facility] LABORATORY Comment: This patient's estimated GFR [...] Organization Address City/State/[place] [address] (ABNORMAL) Hemoglobin A1c (06/13/2022 3:47 PM EDT) Analysis Performed At Patho logist Time Signature Hemoglobin A1C 7.5 (H) 4.3 - 5.6 [facility] LABORATORY Comment: Reference Range: 4.3 - [...] Mellitus, Diabetes Care 2013; 36: Suppl. 1, S67-06 Est Avg Gluc 169 mg/dL [facility] LABORATORY Comment: eAG equivalents for HbA1c percentages: HbA1c(%) ?eAG(mg/dL) 6.0 ?126 6.5 ?140 7.0 ?154 7.5 ?169 8.0 ?183 8.5 ?197 9.0 ?212 9.5 ?226 10.0 ? 240 Limitations: The eAG calculation has not been validated on women, individuals below 18 years old and above 70 years old, and individuals with hemoglobinopathies. Additional resources are available on ADA website. Steve CHAO, Bhumi J, Kay R, et al. ??Tr anslating the A1C assay into estimated average glucose values. ??Diabetes Care 2008:31(8):1606-9519. Specimen Anatomical Collection Method Collection Time Receive d Time (Source) Location / / Volume Laterality Blood 06/13/2022 3:47 PM 2 3:59 EDT PM EDT Resulting Agency Comment Spec In Lab Tom Hay MD CHEMISTRY ORDERABLES Performing Organization Address City/State/ZIP Code Phon [place] [address] documented in this encounter Visit Diagnoses Diagnosis Myeloradiculopathy Unspecified nerve root and plexus disord er Type 2 diabetes mellitus with hyperglyce harish, without long-term current use of insulin documented in this encounter Care Teams [place] Relationship Specialty Start Date End Date Satnam, Tom D, MD PCP - General General Internal Medicine 09/15/18 [facility] GENERAL [place] [address] documented as of this encounter
--- OUTSIDE RECORDS SUMMARY | 2022-07-12 00:43 | XMS_ITS | Encounter Summary ---
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 Sex Assigned at Date Recorded Not on file documented as of this encounter Miscellaneous Notes Telephone Encounter - Nenita Hawkins LPN - 03/25/2022 10:09 AM EDT Joseline called for weekly refill, her surgery has been delayed due to glucose levels. Pended refill toDr. Hanley if he authorizes he can sign. documented in this encounter Plan of Treatment Upcoming Encounters Date Type Specialty Care Team Description 08/06/2022 Office Visit Plastic Surgery Peña Woodward MD [facility] PLASTIC SURGERY [place], [place] [address] (Flores ordonez) 08/19/2022 Office Visit Podiatry Tom Titus DPM [place], [place] [address] (Wo josé luis) 09/08/2022 Office Visit Internal Medicine Janay Hay MD [facility] GENERAL INTERNAL MEDICINE [place], [place] [address] (Wo josé luis) 10/12/2059 Hospital Encounter Surgery Jim Hanley MD [facility] SPINE CENTER [place], [place] [address] (Wo rk) Scheduled Procedures Name [...] Unspecified nerve root and plexus disord er Cervical spondylosis with myelopathy H/O cervical spinal arthrodesis Arthrodesis status documented in this encounter Care Teams Bi Manager Relationship Specialty Start Date End Date Tom Hay MD PCP - General General Internal Medicine 09/15/18 [facility] GENERAL [place] [address] documented as of this encounter
--- OUTSIDE RECORDS SUMMARY | 2022-07-12 00:43 | XMS_ITS | Encounter Summary ---
:1965 Author Organization [facility] Address [address] [place] [address] Care Team Providers Name Role Phone Tom Hay MD Primary Care Provider Encounter Details Date Type Department Care Team Description 03/14/2022 TH Visit Internal Medicine at Tom Hay Ty pe 2 diabetes mellitus with hyperglycemia, without long-term current use of insulin; (TeleHealth) [facility] MD Kevin Hypothyroidism, unspecified type; [facility] Chr onic obstructive pulmonary disease with acute exacerbation Drive [place] [phone] MEDICINE [phone] [place], [place] [address] Social History Tobacco Use Types Packs/Day Years [...] place to sleep or slept in a mcc (including now)? Sex Assigned at Date Recorded Not on file documented as of this encounter Progress Notes Tom Hay MD - 03/14/2022 1:20 PM EDT General Internal Medicine - Clinic Note Subjective -Joseline Rose is a 56 y.o. female presenting for follow up who has Asthma; Hypothyroid; Depression; Sleep apnea; Uncontrolled type 2 diabetes mellitus with hyperglycemia; COPD (chronicobstructive pulmonary disease); Bipolar II disorder; Vitamin D deficiency; Essential hypertension; and Hyperlipidemia on their pertinent problem list. Phone FU Doing better Glucoses down to 200 fasting. Ozempic is causing acid stomach and nausea for few days after shot. Tolerated later in week. On Nexium. Sucralfate. Has lost 11#. Hasn't done insulin yet, prescribed 02/26. Using chantix- smoking much les Having upcoming surgery No questionnaires available. Assessment and Plan 1. Diabetes- in better control lately on Ozempic 2mg. She stopped, then restarted at 2mg 2 weeks ago. Having nausea for 3d that resolved. Will hang in there with this and hold off on Lantus for now. See where nausea and glucose settle in 2-4 weeks- continue if working out. Goal FBS 100-150. Call if nausea or FBS>160 persist Recommend deferring plastic surgery for at least 3mo- both for glycemic control and for weight to stabilize. 2. chk TSH next visit 3. Smoking cessation with chantix- counseled 27 min FU 3mo with labs documented in this encounter Plan of Treatment Upcoming Encounters Date Type Specialty Care Team Description 08/06/2022 Office Visit Plastic Surgery Peña Woodward MD [facility] PLASTIC SURGERY [place], [place] [address] (Wo rk) 08/19/2022 Office Visit Podiatry Tom Titus DPM [place], [place] [address] (Wo rk) 09/08/2022 Office Visit Internal Medicine Janay Hay MD [facility] GENERAL INTERNAL MEDICINE [place], [place] [address] (Wo rk) 10/12/2059 Hospital Encounter Surgery Jim Hanley MD [facility] SPINE CENTER [place], [place] [address] (Wo rk) Scheduled Procedures Name [...] sequela documented as of this encounter Results TSH (06/13/2022 3:47 PM EDT) athologist Signature TSH 2.38 0.27 - 4.20 [facility] mcIU/mL [facility] LABORATORY Comment: Reference Interval (mcIU/mL): Females: ??First Trimester: 0.23-3.88 ??Second Trimester: 0.22-3.90 ??Third Trimester: 0.44-4.66 Specimen Anatomical Collection Method Collection Time Receive d Time (Source) Location / / Volume Laterality Blood 06/13/2022 3:47 PM 3:59 EDT PM EDT Resulting Agency Comment Spec In Lab Tom Hay MD CHEMISTRY ORDERABLES Performing Organization Address City/State/[place] [address] documented in this encounter Visit Diagnoses Diagnosis Myeloradiculopathy Unspecified nerve root and plexus disord er Type 2 diabetes mellitus with hyperglyce harish, without long-term current use of insulin Hypothyroidism, unspecified type Chronic obstructive pulmonary disease wi th acute exacerbation Obstructive chronic bronchitis with exac erbation documented in this encounter Care Teams It Administrator Relationship Specialty Start Date End Date Tom Hay MD PCP - General General Internal Medicine 09/15/18 [facility] GENERAL [place] [address] documented as of this encounter
--- OUTSIDE RECORDS SUMMARY | 2022-07-12 00:43 | XMS_ITS | Encounter Summary ---
:1965 [place] [address] Care Team Providers Name Role Phone Tom Hay MD Primary Care Provider Reason for Visit Reason Comments Abscess dental Encounter Details Date Type Department Care Team Description 06/20/2022 Emergency Emergency Department Ramila Gallego MD Abrasion of right cornea, initial encoun ter; [facility] Acute n on-recurrent maxillary sinusitis; [facility] Dr Oral lesion [place], [place] [address] [place] [address] [phone] Social History Tobacco Use Types Packs/Day Years [...] place to sleep or slept in a longterm (including now)? Sex Assigned at Date Recorded [...] - - Weight 85 kg (187 lb 6.3 oz) 06/20/2022 3:04 PM EDT Height - - Body Mass Index 31.18 03/11/2022 2:41 PM EDT documented in this encounter Discharge Instructions Discharge Suzie Whittaker MD - 06/20/2022 7:19 PM EDT Please use the eye ointment as directed. Follow-up with ophthalmology if no improvement in 5 to 7 days. We have sent a COVID swab. Please check the results on my DH and quarantine until the results return. Please call the oral office on Thursday to schedule your appointment as you will need close follow-up for evaluation of your oral lesion. Take acetaminophen as directed for pain. Drink plenty of fluids. Take the Augmentin as directed. Use an oouh-svz-mtsstvz decongestant like Claritin or Paulina. Follow-up with your primary care doctor in 3 to 5 days and return for worsening pain, fevers or any concerning symptoms. AttachmentsThe following attachments cannot be sent through Care Everywhere. Sinusitis (Romanian)Corneal Scratches (Romanian)documented in this encounter Medications at Time of Discharge Medication Sig Dispensed Refills Start Date End Date erythromycin (Romycin) 5 Apply a thin layer 3.5 g 0 06/2022 mg/gram (0.5 %) Ointment to your right lower lid 3 times a day for 5 days fluocinonide (LIDEX) 0.05 Apply twice daily to 60 mL 5 06/17/2022 % Solution worse scalp psoriasis on weekends-only as needed empagliflozin (Jardiance) Take 1 tablet by 90 tablet 3 11/2021 10 mg Tablet mouth daily. dulaglutide (Trulicity) Inject 0.5 mLs 2 mL 06/13/20 22 1.5 mg/0.5 mL Pen subcutaneously once InjectorIndications: type a week. Indications: 2 diabetes mellitus type 2 diabetes mellitus betamethasone-calcipotrie Apply twice daily 120 g 3 11/2021 ne (TACLONEX SCALP) for 5 days out of 0.005-0.064 % the week SuspensionIndications: Scalp psoriasis Clobetasol-Emollient Apply twice daily to 200 g 0 06/13 (Olux-E) 0.05 % worse scalp FoamIndications: psoriasis on Psoriasis weekends-only as needed dispense 3 bottles please fluticasone propionate 1 spray by Each Nare 16 g 12 11/2021 (Flonase) 50 route daily. mcg/actuation Oakwood, Suspension olopatadine (Patanol) 0.1 Place 1 drop into 5 mL 11/2021 % Drops both eyes 2 times daily. traMADoL (Ultram) 50 mg Take 1 tablet by 56 tablet 0 2021 TabletIndications: mouth every 6 hours Cervical spondylosis with as needed for Pain myelopathy, H/O cervical for up to 56 doses. spinal arthrodesis ondansetron ODT (Zofran Take 1-2 tablets by 12 tablet 3 12/2021 ODT) 4 mg Tablet, Rapid mouth every 8 hours Dissolve as needed for Nausea. ibuprofen (Motrin) 400 mg Take 1 tablet by 180 tablet 3 06/0 12/2021 Tablet mouth every 6 hours as needed for Pain. BD Alcohol Swabs Pads, 1 each 4 times 100 each 3 2 Medicated daily. albuteroL (ProAir HFA) 90 Inhale 2 puffs into 4 each 3 0 02/26/2022 mcg/actuation HFA Aerosol the lungs every 4 InhalerIndications: hours as needed for Chronic obstructive Wheezing. Use with pulmonary disease with spacer acute exacerbation ergocalciferoL, vitamin Take 1 capsule by 12 capsule 3 02/26 D2, (vitamin D2) 50,000 mouth once a week. unit CapsuleIndications: Low vitamin D level sucralfate (Carafate) 100 Take 10 mLs by mouth 3600 mL 3 02/26/2022 mg/mL 4 times daily. SuspensionIndications: Upper abdominal pain pregabalin (Lyrica) 75 mg Take 1 capsule by 180 tablet 1 Capsule mouth 2 times daily. valACYclovir (VALTREX) 1 Take 1 tablet by 180 tablet 3 02/26 gram TabletIndications: mouth 2 times daily. Oral lesion fluticasone-umeclidinium- Inhale 1 puff into 60 each 3 vilanterol (Trelegy the lungs daily. Ellipta) DULoxetine DR (Cymbalta) Take 1 capsule by 90 capsule 3 02/09 60 mg Capsule, Delayed mouth daily. Release(E.C.) glipiZIDE (Glucotrol) 5 Take 1 tablet by 90 tablet 3 2021 mg Tablet mouth daily. esomeprazole (NexIUM) 40 Take 1 capsule by 180 capsule 3 mg Capsule, Delayed mouth 2 times daily. Release(E.C.) amLODIPine (Norvasc) 10 Take 1 tablet by 90 tablet 3 2021 mg Tablet mouth daily. atorvastatin (Lipitor) 20 Take 1 tablet by 90 tablet 3 02/09 mg Tablet mouth daily. levothyroxine (Synthroid) Take 2 tablets by 180 tablet 3 150 mcg Tablet mouth daily. Take in addition to the 25mcg to equal 325mcg levothyroxine (Synthroid) Take 1 tablet by 90 tablet 3 02/09 25 mcg Tablet mouth daily. hydroCHLOROthiazide Take 1 tablet by 90 tablet 3 02/26/2022 (Hydrodiuril) 50 mg mouth daily. TabletIndications: Essential hypertension varenicline (Chantix) 1 Take 1 tablet by 60 tablet 5 2021 mg Tablet mouth 2 times daily. metroNIDAZOLE Apply topically 2 45 g 5 02/26/2022 (METROCREAM) 0.75 % Cream times daily. blood-glucose meter 1 each by 1 each 0 02/26/2022 (FREESTYLE) Kit [facility]Non-Drug; Combo Route) route as needed for Other. nystatin (Mycostatin) SAS 5 ML PO QID PRF 473 mL 3 05/03 100,000 unit/mL THRUSH Suspension meclizine (Antivert) 25 Take 1 tablet by 90 tablet 3 2020 mg TabletIndications: mouth 3 times daily Vertigo as needed. metoclopramide (REGLAN) 5 Take 1 tablet by 80 tablet 0 05/0 02/2021 mg TabletIndications: mouth 4 times daily. Refractory nausea and vomiting methocarbamoL (ROBAXIN) Take 1 tablet by 30 tablet 0 2020 750 mg TabletIndications: mouth 3 times daily Cervical radicular pain as needed. blood sugar diagnostic Use as instructed to 300 each strips StripIndications: check BG 4 times Controlled type 2 daily. (Freeyle diabetes mellitus without Lite)DX code E11.9 complication, unspecified IDD whether fermenter champagne insulin use Vitamin D 25 mcg (1,000 Take 2 tablets by 90 tablet 0 10/26 unit) Tablet mouth daily. cholecalciferol, Vitamin Take 1 capsule by 52 capsule 0 10/12 D3, 1,250 mcg (50,000 mouth once a week. unit) Capsule ipratropium-albuteroL Take 0.5 mg by 1 Box 4 10/26/2020 (DUONEB) 0.5 mg-3 mg(2.5 nebulization 4 times mg base)/3 mL Solution daily. for NebulizationIndications: Chronic obstructive pulmonary disease with acute exacerbation naratriptan (Amerge) 2.5 Take 1 tablet by 10 tablet 3 10/26 mg TabletIndications: mouth as needed for Vertigo Migraine. if returns or does not resolve, may repeat once after 4 hours lancets (FreeStyle Dx E11.9 IDD please 125 each 11 10/26/19 21 Lancets) 28 gauge test 4x/day with MiscIndications: diabetes lancets Indications: mellitus diabetes mellitus cycloSPORINE (Restasis) Place 1 drop into 180 vial 3 10/26 0.05 % both eyes every 12 DropperetteIndications: hours. Bilateral dry eyes clotrimazole (MYCELEX) 10 DIS 1 MOLLY PO TID 30 tablet 3 10/12 mg Gary Calcipotriene 0.005 % as needed. 0 10/31/2019 Solution estradiol (ESTRACE) 0.[address] vaginally as 4 % (0.1 mg/gram) Cream needed. ondansetron (ZOFRAN) 4 mg Take 1 tablet by 20 tablet 3 03/13 TabletIndications: mouth every 8 hours Vertigo as needed for Nausea. fluticasone (VERAMYST) 2 sprays by Nasal 0 27.5 mcg/actuation Oakwood, route daily. SuspensionIndications: Indications: allergic rhinitis Allergic Rhinitis documented as of this encounter ED Notes Suzie Gallego MD - 06/20/2022 6:29 PM EDT ED Attending Note HPI: Joseline Rose is a 56 y.o. female who presents to the Emergency Department s/p fall 2 weeks agoon to face here with diffuse facial pain here today for right eye that is dry red scratchy x 4 days after getting her mask in her face, she also saw a lesion on her left upper gum and 3 days of generalized fevers/sweat, runny nose, and diarrhea. Past Medical History: Diagnosis Date ??? Allergy [...] r/t neck, has vertigo treated with meclizine Review of Systems Constitutional: Negative for fever. HENT: Positive for mouth sores. Eyes: Positive for discharge, redness and itching. Negative for photophobia. Respiratory: Negative for cough and shortness of breath. Cardiovascular: Negative for chest pain. Gastrointestinal: Negative for abdominal pain, diarrhea and vomiting. Skin: Negative for rash. All other systems reviewed and are negative. Pertinent positives and negatives are included in the HPI, otherwise at least ten systems were reviewed and negative. Past Medical and Surgical Histories, Social History, Medications, Allergies were reviewed in the chart. Vitals: ED Triage Vitals [06/20/22 1504] BP: (!) 136/91 Heart Rate: 93 Resp: 18 Temp: 36.8 ??C (98.2 ??F) Temp src: Temporal SpO2: 100 % O2 Device: RA O2 Flow Rate (L/min): n/a Physical Exam Vitals and nursing note reviewed. Constitutional: Appearance: She is well-developed. HENT: Head: Normocephalic and atraumatic. Comments: No bony tenderness or facial swelling jaw is well aligned Mouth/Throat: Comments: clear posterior pharynx left upper gumline with thickened lesion at the site of a prior tooth removal with scattered abrasions on the palate Eyes: Extraocular Movements: Extraocular movements intact. Pupils: Pupils are equal, round, and reactive to light. Comments: Right conjunctival injection with no periorbital erythema fluorescein with uptake at 4:00from the central visual field no foreign body identified Cardiovascular: Rate and Rhythm: Normal rate and regular rhythm. Pulses: Normal pulses. Heart sounds: Normal heart sounds. Pulmonary: Effort: Pulmonary effort is normal. No respiratory distress. Breath sounds: Normal breath sounds. Abdominal: General: There is no distension. Palpations: Abdomen is soft. Tenderness: There is no abdominal tenderness. Musculoskeletal: General: Normal range of motion. Cervical back: Normal range of motion and neck supple. Skin: General: Skin is warm and dry. Neurological: Mental Status: She is alert and oriented to person, place, and time. Comments: BELTRAN Psychiatric: Behavior: Behavior normal. Thought Content: Thought content normal. Judgment: Judgment normal. ED Course: No orders to display Procedures Assessment and Plan: 56 y.o. female with status post fall 2 weeks ago with no loss of consciousness. Since then she is been having facial pain of the last week with congestion and a mass in her mouth and red eye irritationafter accidentally getting her mask in her eye. Regarding her eyes she has clear evidence of a corneal abrasion. She does not wear contacts and her tetanus shot is up-to-date. Plan for erythromycin ophthalmic to the lower lid. Regarding the oral lesion she is a smoker and I am concerned for possible malignant etiologies of the mass but she has already been given an oral surgery referral. I have stressed the importance of close follow- up. She reports feeling slightly unwell with diarrhea and copious nasal secretions and congestions. I do not think she has focal facial trauma and indicate advanced imaging I am concerned for sinusitis and given that she is a smoker plan for antibiotics. We will also send a COVID test although low suspicion for COVID but she is unvaccinated. Patient understands to quarantine until test results return and to return for any concerning symptoms. Did this case involve critical care? No The visit findings, diagnosis, and care plan were discussed with the patient. The diagnosis and care plans discussions were outlined in the discharge instructions. The patient expressed understanding of the details of the visit, the return precautions and that she should return to the ER at any time for worsening symptoms, new symptoms, or other concerns. she agrees with the follow- up plan. Suzie Gallego MD 06/20/22 [id number] David Valentin PA - 06/20/2022 3:03 PM EDT Brief Provider Triage Note Name: Joseline Rose : 1965 Date of Service: 06/20/2022 Chief Complaint: Abscess (dental) History of Present Illness: 56 y.o. y/o female c/o right eye pain after scratching it a few days ago. Patient reports associatedphotophobia, and blurry vision. Patient also c/o left sided dental pain and states she is concerned for an infection.Patient reports a fever of 103 last night. Patient dneies nausea, vomiting, diarrhea. Vitals: BP (!) 136/91 (BP Location (NBP): Left arm, Patient Position: Sitting) Pulse 93 Temp 36.8 ??C (98.2 ??F) (Temporal) Resp 18 Wt 85 kg (187 lb 6.3 oz) SpO2 100% BMI 31.18 kg/m?? Brief Physical Exam: General: A&Ox4, No acute distress. Speaking in full sentences. Eyes: PERRL, EOMI Lungs: No respiratory distress MSK: Moving all extremities. Neuro: Answering questions appropriately. Plan: Visual acuity Re-examination Further diagnosis and management in ED COVID-19 precautions were used throughout this encounter. David Valentin PA 06/20/22 1510 documented in this encounter Miscellaneous Notes ED Triage - Shabnam Arango RN - 06/20/2022 3:03 PM EDT I woke up and I have an abscess on my left side and my whole face is swollen. I think that I scratched my right eye, it is sensitive to light, and it is blurry. Has fever and chills, fever of 103 last night. Denies n/v/d documented in this encounter Plan of Treatment Upcoming Encounters Date Type Specialty Care Team Description 08/06/2022 Office Visit Plastic Surgery Peña Woodward MD [facility] PLASTIC SURGERY [place], [place] [address] (Wo rk) 08/19/2022 Office Visit Podiatry Tom Titus DPM [place], [place] [address] (Wo rk) 09/08/2022 Office Visit Internal Medicine Janay Hay MD [facility] GENERAL INTERNAL MEDICINE [place], [place] [address] (Wo rk) 10/12/2059 Hospital Encounter Surgery Jim Hanley MD [facility] SPINE CENTER [place], [place] [address] (Wo rk) Scheduled Procedures Name [...] spine, sequela documented as of this encounter Procedures Procedure Name Priority Date/Time Associated Diagnosis Comme nts RAPID COVID-19 PCR STAT 06/20/2022 7:20 PM Res ults for this ([facility]) EDT procedure are in the results section. documented in this encounter Results COVID-19 PCR (06/20/2022 7:20 PM EDT) [facility] Method Time Signature SARS-CoV-2 Not Detected Not Detected MURRAY RNA PCR [facility] Comment: This result should be interpreted [...] using the Simplexa COVID-19 Direct Assay by Tapomatliss jamil as authorized by the FDA issued Emergency Use Authorization (EUA). This assay is intended for In-vitro Diagnostic (IVD) use with nasopharyngeal swabs collected from individuals meeting the CDC criteria for testing. Th e assay is performed based on the instructions for use and additional guid ance provided by the FDA. Testing is performed in the Microbiology Laboratory within the Department of Pathology and Laboratory Medicine at [facility], certified under the Clinical Laboratory Improvement Amendmen [...] clinical management guidance information are available at [facility] CDC Coronavirus Disease 2019 (COVID-19) webpage under Information fo r Healthcare Professionals (https://www.cdc.gov/coronavirus/2019-nc ov/hcp/index.html). Additional information about this and ot her EUA tests can be found in provider and patient fact sheets at the following FDA website: https://www.fda.gov/medical-devices/tnpkzbwrjbx-wvjsupw-2650-bdltj-92-ywydgzlil- gbp-amosmwclrrrlqb-ghthlnp-devices/pmyae-cwaiewppkcc-jbyg SARS-CoV-2 Source OBIEE REPORT DEVELOPER Swab [facility] Specimen (Source) Anatomical Collection Method Collection Time Re ceived Time Location / / Volume Laterality Nasopharyngeal Swab 06/20/2022 7:20 06/20 PM EDT 8:28 PM EDT Comment: Symptoms->COVID-19 Suspected Resulting Agency Comment Spec In Lab Suzie Galicia MD MICROBIOLOGY - GENERAL ORDER NERIS Performing Organization Address City/State/[place] [address] documented in this encounter Visit Diagnoses Diagnosis Myeloradiculopathy Unspecified nerve root and plexus disord er Abrasion of right cornea, initial encoun ter Acute non-recurrent maxillary sinusitis Oral lesion Other and unspecified diseases of the or al soft tissues documented in this encounter Active and Recently Administered Medications Times are shown in EDT. Scheduled Medication Order 06/18/2022 06/19/2022 06/20/2022 proparacaine (Alcaine) 0.5 % ophthalmic solution 1 drop 1839 (Due) 1 drop, Both Eyes, ONCE, 1 dose, On Thu06/20/22 at 1839, STAT documented in this encounter Additional Health Concerns Infection Onset Date Last Indicated Resolved Time Rule Out COVID-19 06/20/2022 06/20/2022 06/20/2022 11: 51 PM EDT documented as of this encounter Care Teams Pie Crimping Machine Operator Relationship Specialty Start Date End Date Tom Hay MD PCP - General General Internal Medicine 09/15/18 [facility] [place] [address] documented as of this encounter
--- OUTSIDE RECORDS SUMMARY | 2022-07-12 00:43 | XMS_ITS | Encounter Summary ---
:1965 Author Organization [facility] [place] [address] Care Team Providers Name Role Phone Tom Hay MD Primary Care Provider Reason for Visit Reason Onset Date Comments Medication Refill 03/18/2022 Encounter Details Date Type Department Care Team Description 03/18/2022 Refill [facility] Nenita Hawkins , Cervical spondylosis with myelopathy; at [facility] H/[place] [address] Social History Tobacco Use Types Packs/Day [...] Telephone Encounter - Nenita Hawkins LPN - 03/18/2022 10:28 AM EDT Joseline called in for her refill of Tramadol 50 mg. She had surgery postponed due to high glucose levels reaching over 1000. She reports today that her glucose was 177. Pended an order to krishna Ocampo sign if he is agreeable. documented in this encounter Plan of Treatment Upcoming Encounters Date Type Specialty Care Team Description 08/06/2022 Office Visit Plastic Surgery Peña Woodward MD [facility] PLASTIC SURGERY [place] [address] ([place] ordonez) 08/19/2022 Office Visit Podiatry Tom Titus DPM [place], [place] [address] ([place] ordone[place]) 09/08/2022 Office Visit Internal Medicine Janay Hay MD [facility] GENERAL INTERNAL MEDICINE [place], [place] [address] ([place] ordonez) 10/12/2059 Hospital Encounter Surgery Jim Hanley MD [facility] ER DR SPINE CENTER [place], [place] [address] (Wo rk) Scheduled Procedures Name [...] status documented in this encounter Care Teams Distribution Engineering Technologist Relationship Specialty Start Date End Date Tom Hay MD PCP - General General Internal Medicine 09/15/18 [facility] [place] [address] documented as of this encounter
--- OUTSIDE RECORDS SUMMARY | 2022-07-12 00:43 | XMS_ITS | Encounter Summary ---
:1965 Author Organization [facility] [address] Care Team Providers Name Role Phone Tom Hay MD Primary Care Provider Reason for Visit Reason Onset Date Comments Medication Refill 03/11/2022 Encounter Details Date Type Department Care Team Description 03/11/2022 Refill [facility] [place] jacobsen at [facility] [place] [address] Social History Tobacco Use Types Packs/Day [...] place to sleep or slept in a skilled nursing (including now)? Sex Assigned at Date Recorded Not on file documented as of this encounter Plan of Treatment Upcoming Encounters Date Type Specialty Care Team Description 08/06/2022 Office Visit Plastic Surgery Peña Woodward MD [facility] PLASTIC SURGERY [place], [place] [address] (Wo rk) 08/19/2022 Office Visit Podiatry Tom Titus DPM [place], [place] [address] (Wo rk) 09/08/2022 Office Visit Internal Medicine Janay Hay MD [facility] GENERAL INTERNAL MEDICINE [place], [place] [address] (Wo rk) 10/12/2059 Hospital Encounter Surgery Jim Hanley MD [facility] SPINE CENTER [place], [place] [address] (Wo rk) Scheduled Procedures Name [...] on filedocumented in this encounter Care Teams Card Reader Relationship Specialty Start Date End Date Tom Hay MD PCP - General General Internal Medicine 09/15/18 [facility] GENERAL [place] [address] documented as of this encounter
--- OUTSIDE RECORDS SUMMARY | 2022-07-12 00:43 | XMS_ITS | Encounter Summary ---
:1965 Author Organization [facility] [place] [address] Care Team Providers Name Role Phone Tom Hay MD Primary Care Provider Encounter Details Date Type Department Care Team Description 03/11/2022 Orders Only [facility] [place] [address] Social History Tobacco Use Types Packs/Day [...] place to sleep or slept in a nursing home (including now)? Sex Assigned at Date Recorded Not on file documented as of this encounter Plan of Treatment Upcoming Encounters Date Type Specialty Care Team Description 08/06/2022 Office Visit Plastic Surgery Peña Woodward MD [facility] PLASTIC SURGERY [place], [place] [address] (Wo rk) 08/19/2022 Office Visit Podiatry Tom Titus DPM [place], [place] [address] (Wo rk) 09/08/2022 Office Visit Internal Medicine Janay Hay MD [facility] GENERAL INTERNAL MEDICINE [place], [place] [address] (Wo rk) 10/12/2059 Hospital Encounter Surgery Jim Hanley MD [facility] SPINE CENTER [place], [place] [address] (Wo rk) Scheduled Procedures Name [...] on filedocumented in this encounter Care Teams Manager Med Surg Relationship Specialty Start Date End Date Tom Hay MD PCP - General Internal Medicine 09/15/18 [facility] GENER[place] [address] documented as of this encounter
--- OUTSIDE RECORDS SUMMARY | 2022-07-12 00:43 | XMS_ITS | Encounter Summary ---
:1965 Author Organization [facility] Address [place] [address] Care Team Providers Name Role Phone Tom Hay MD Primary Care Provider Encounter Details Date Type Department Care Team Description 06/26/2022 Procedure visit Maxillofacial Surgery at Vincent Garcia PA Oral lesion [facility] [address] [place] [address] MAXILLOFACIAL [phone] SURGERY [place], [place] [address] (Wo rk) Social History Tobacco [...] place to sleep or slept in a [place] health care facility (including now)? Sex Assigned at Date Recorded Not on file documented as of this encounter Patient Instructions Patient InstructionsVincent Garcia PA - 06/26/2022 12:45 PM EDT Results from the biopsy can take 1-2 weeks. These may be discussed via phone or at a follow-up visit. On the Day of Surgery: DO NOT rinse your mouth, smoke, or use a straw when drinking. Any of these could cause you to bleed more. You should remain at home, rest, and avoid alcoholic beverages. Discomfort: It is not uncommon for you to have some discomfort following a surgical procedure. This discomfort may last for three days or more. Pain relievers such as ibuprofen or Tylenol (acetaminophen) may be taken - please follow the directions on the bottle. If a narcotic is prescribed, take this only as needed. Narcotic drugs may cause nausea. DO NOT take them on an empty stomach, and DO NOT drive or consume alcohol while on narcotics. If prescribed Vicodin, usual dosage is 1-2 tablets every 4-6 hours as needed for pain. Total daily dosage SHOULD NOT EXCEED 8 tablets. If you decide to take theVicodin, do not take Tylenol (acetaminophen) with it as Vicodin contains Tylenol. Other discomforts you may experience include: slight earache, sore throat, numbness or tingling in the lips or chin, aches in other teeth, and tightness of the jaw muscles. Bleeding: It is normal to have some oozing bleeding after the procedure. If bleeding is heavy, keep head elevated or sit upright, avoid exercise, hot liquids, smoking, and drinking from straws. If the bleeding does not stop with pressure, try a lukewarm, damp tea bag in place of the gauze for another 20 minutes. The tea bag will help to form blood clots and stop the bleeding. If bleeding continues, call your doctor. Swelling: To reduce immediate swelling after your procedure, apply an ice pack, with pressure, to the face over the area of the procedure. Ice should be applied for 15-20 minutes at a time, for the first 24 hours. After 24 hours, a moist warm compress may be helpful. Most swelling will occur within 24-48 hours following the procedure. Mouth Rinse: Vigorous mouth washing may cause bleeding to begin again if clots are not formed. DO NOT RINSE on the day of surgery. Begin rinsing one day after the procedure very gently with warm salt water (1/2 teaspoon per 8 oz. warm water). Continue rinsing 3-6 times a day for several days. This will keep surgical sites clean and will help with healing. Diet: It is best to eat light, soft foods, and drink plenty of liquids following a surgical procedure. Foods like, yogurt, pasta, eggs, soups, and ice cream are good choices. Avoid hot liquids for 24 hours after tooth extraction. Avoid foods that are difficult to chew. Once chewing becomes easier, youmay return to your normal diet. In General: If stitches are used, they will dissolve or unravel in about three days to one week. Avoid strenuous exercise, such as jogging and contact sports for at least one week following surgery. Swelling is usually most extensive 24- 48 hours following surgery, and usually takes 4-5 days to subside.. It may take 10-14 days before you feel like your normal self again. Infection: Can occur at any time, but it is evident more often 4-7 days after a procedure. Please contact us at the numbers below if you have one or more of the following: Temperature elevation greater than 100.5 Worsening swelling after the initial 48 hour period Severe and worsening pain Foul smell or taste coming from the site Generalized body chills or fever During business hours 8am-5pm M-F please call our office at [phone] otherwise call the main number [phone] and ask to connect with Dr. Macdonald documented in this encounter Progress Notes Vincent Garcia PA - 06/26/2022 12:45 PM EDT Error Vincent Garcia PA - 06/26/2022 12:45 PM EDT Images from the original note were not included. Clinic Biopsy Surgical Procedure: ?? Joseline Rose presents for the scheduled excision/biopsy of maxillary lesions with local anesthesia. The patient was brought to the office, the site was confirmed, and consent and risks were reviewed. ? After appropriate local anesthesia was administered, the patient underwent excisional biopsy of exophytic lesion of alveolar tissue between teeth #13,15, and tissue of the tuberosity distal to tooth #15, photo sent to pathology with specimen. Biopsies were performed in conjunction with myself and Dr. Padron. Dr. Padron utilized a right angle [place] blade to perform a wedge resection along the distal aspectof tooth #15, extending posterior from the distal sulcus along the tuberosity. The specimen was lifted off the attached tissue with a periosteal elevator, with 1 larger section and 2 smaller fragments.No significant bleeding noted, no suture repair was required. Attention was then turned to the pedunculated exophytic lesion. A combination of a 15 C blade and the right angle [place] blade were utilized to excise this. Silver nitrate cautery was applied for hemostasis with good effect. ?? There was no evidence of injury to adjacent teeth, nerves. The patient tolerated the procedure well and following a recovery period, a complete set of instructions both written and verbal were reviewedwith the patient. The patient was instructed to contact the clinic in the interm if there was any question or concern during the post operative period. ?? Specimen: Sent to general pathology at [facility] ?Local Anesthesia: 2cc's 2% Lidocaine with Epi 1:100,000 And 2 cc's septocaine 4% Septocaine with 1:100k epi ?? Postop Medications: encouraged otc NSAIDs, rx'd #15 percocet 5-325 mg Follow Up: We will call patient with biopsy result and determine if follow up is necessary. Patient is aware if that they do not here from us regarding the result that it is there responsibility to call us 2 weeks from time to biopsy to discuss results. Vincent Garcia PA-C Oral-Maxillofacial Surgery 06/27/2022 Photo including the islands of darkened pigmentation, the exophytic lesion, and the ulceration notedabove Lesions as visible from dental photography mirror Exophytic lesion between teeth #13,15 documented in this encounter Plan of Treatment Upcoming Encounters Date Type Specialty Care Team Description 08/06/2022 Office Visit Plastic Surgery Peña Woodward MD [facility] PLASTIC SURGERY [place], [place] [address] (Wo rk) 08/19/2022 Office Visit Podiatry Tom Titus DPM [place], [place] [address] (Wo rk) 09/08/2022 Office Visit Internal Medicine Janay Hay MD [facility] GENERAL INTERNAL MEDICINE [place], [place] [address] (Wo rk) 10/12/2059 Hospital Encounter Surgery Jim Hanley MD [facility] SPINE CENTER [place], [place] [address] (Wo rk) Scheduled Procedures Name [...] Name Priority Date/Time Associated Diagnosis Comme nts SPECIMEN TO Routine 06/26/2022 1:29 PM Oral lesion Results f or this PATHOLOGY EDT procedure are i n the results section. SPECIMEN TO Routine 06/26/2022 1:29 PM Oral lesion Results f or this PATHOLOGY EDT procedure are i n the results section. SURGICAL PATHOLOGY Routine 06/26/2022 1:10 PM Res ults for this REPORT EDT procedure are i n the results section. documented in this encounter Results Specimen to Pathology (06/26/2022 1:29 PM EDT) Specimen Anatomical Collection Method Collection Time Receive d Time (Source) Location / / Volume Laterality AP Specimen 06/26/2022 1:29 PM 2 1:29 EDT PM EDT Narrative [facility] - 06/26/2022 1:29 PM EDT Specimen requisition ordered. ??Separate Pathology report to follow Dash Macdonald MD PATHOLOGY/CYTOLOGY ORDERABLE S Performing Organization Address City/State/[place] [address] Specimen to Pathology (06/26/2022 1:29 PM EDT) Specimen Anatomical Collection Method Collection Time Receive d Time (Source) Location / / Volume Laterality AP Specimen 06/26/2022 1:29 PM 2 1:29 EDT PM EDT Narrative [facility] - 06/26/2022 1:29 PM EDT Specimen requisition ordered. ??Separate Pathology report to follow Dash Macdonald MD PATHOLOGY/CYTOLOGY ORDERABLE S Performing Organization Address City/State/[place] [address] Surgical Pathology Report (06/26/2022 1:10 PM EDT) Component Value Ref Test Analysis Performed At [facility] gist Range Method Time Signature Surgical [id number] ? Location: [address] [place] [address] The signing pathologist has (i) examined the relevant preparation(s) for the [facility] specimen(s) and (ii) rendered or confirmed the diagnosis(es) . HOSPITAL LABOR[facility]ORY . ?Surgic al Pathology DIAGNOSIS A - Left maxillary tuberosity distal to #15, biopsy: Melanoma in-situ (see Discussion) B - Alveolar ridge between #13 and #15, biopsy: Invasive melanoma, ulcerated, extending to biopsy margins (s ee Discussion) Electronically signed by: ?Beba Garrido MD Verified: ??07/07/2022 14:14 ??Pathologist Performed at: ??-[facility] Dept. of [place]ology, [place], [place] DISCUSSION Part A shows an atypical [...] melanoc ytes ??MITF ? Positive in melanocytes ??[id number] ? Negative ??[id number] ? Negative ?CD68 ?Positive in macrophages ?PU.1 [...] Organization Address City/State/[place] [address] documented in this encounter Visit Diagnoses Diagnosis Myeloradiculopathy Unspecified nerve root and plexus disord er Oral lesion Other and unspecified diseases of the or al soft tissues documented in this encounter Care Teams Special Procedures Technologist Relationship Specialty Start Date End Date Tom Hay MD PCP - General General Internal Medicine 09/15/18 [facility] GENERAL [place] [address] documented as of this encounter
--- OUTSIDE RECORDS SUMMARY | 2022-07-12 00:43 | XMS_ITS | Encounter Summary ---
:1965 Author Organization [facility] Address [address] [place] [address] Care Team Providers Name Role Phone Tom Hay MD Primary Care Provider Encounter Details Date Type Department Care Team Description 06/17/2022 Orders Only Internal Medicine at [facility] Tom Hay MD [facility] [place] [address] GENERAL INTERNAL [phone] MEDICINE [place], [place] [address] (Wo rk) Social History Tobacco [...] Office Visit Plastic Surgery Peña Woodward MD [facility] PLASTIC SURGERY [place] [phone] ([facility]) 08/19/2022 Office Visit Podiatry Tom Titus DPM [place] [phone] ([facility]) 09/08/2022 Office Visit Internal Medicine Janay Hay MD [facility] GENERAL INTERNAL MEDICINE [place] [phone] ( rk) 10/12/2059 Hospital Encounter Surgery Jim Hanley MD [facility] SPINE CENTER [place], [place] [address] (Wo josé luis) Scheduled Procedures Name Priority Associated Diagnoses Date/Time [...] on filedocumented in this encounter Care Teams Watch Parts Grinder Relationship Specialty Start Date End Date Tom Hay MD PCP - General General Internal Medicine 09/15/18 [facility] GENER[place] [address] documented as of this encounter
--- OUTSIDE RECORDS SUMMARY | 2022-07-12 00:43 | XMS_ITS | Encounter Summary ---
:1965 Author Organization [facility] [place] [address] Care Team Providers Name Role Phone Tom Hay MD Primary Care Provider Reason for Referral Consultation (Routine) - Authorized Specialty Diagnoses / Procedures Referred By Contact Refer red To Contact Plastic Surgery Diagnoses Abdominal pannus Recurrent cellulitis Dmitry Cuenca MD [facility] [place] Surg 4m [address] [facility] [address] [address] [place] [address] Referral ID Status Reason Start Date Expiration Visits Visits Date Requested Authorized [id number] Authorized Consult, 03/04/2022 03/04/2023 6 6 Test & Treat Encounter Details Date Type Department Care Team Description 03/04/2022 Transcribe Orders eDH Incoming Dmitry Cuenca Abdo minal pannus; Referrals Recurrent cellulitis [phone] [address] [facility],[address] [address] Social History Tobacco Use Types Packs/Day Years [...] place to sleep or slept in a jail (including now)? Sex Assigned at Date Recorded Not on file documented as of this encounter Plan of Treatment Upcoming Encounters Date Type Specialty Care Team Description 08/06/2022 Office Visit Plastic Surgery Peña Woodward MD [facility] PLASTIC SURGERY [place], [place] [address] (Wo rk) 08/19/2022 Office Visit Podiatry Tom Titus DPM [place], [place] [address] (Wo rk) 09/08/2022 Office Visit Internal Medicine Janay Hay MD [facility] GENERAL INTERNAL MEDICINE [place], [place] [address] (Wo rk) 10/12/2059 Hospital Encounter Surgery Jim Hanley MD [facility] SPINE CENTER [place], [place] [address] (Wo rk) Scheduled Procedures Name [...] Associated Diagnoses Order S chedule Referral to Outpatient Referral Routine Abdominal pa nnus Ordered: General Surgery Recurrent cellulitis 02/10 documented as of this encounter Visit Diagnoses Diagnosis Myeloradiculopathy Unspecified nerve root and plexus disord er Abdominal pannus Localized adiposity Recurrent cellulitis documented in this encounter Care Teams Card Reader Relationship Specialty Start Date End Date Tom Hay MD PCP - General General Internal Medicine 09/15/18 [facility] GENER[place] [address] documented as of this encounter
--- OUTSIDE RECORDS SUMMARY | 2022-07-12 00:43 | XMS_ITS | Encounter Summary ---
:1965 Author Organization [facility] Address [facility] [place] [address] Care Team Providers Name Role Phone Tom Hay MD Primary Care Provider Encounter Details Date Type Department Care Team Description 07/10/2022 Telephone Otolaryngology at [facility] Ivone Mcqueen [facility] [address] [place] [address] Social History Tobacco Use Types Packs/Day [...] this encounter Miscellaneous Notes Telephone Encounter - Ivone Mcqueen - 07/10/2022 8:40 AM EDT Called pt to answer all safety questions for the ordered scans. Completed CT and PET and lost call while doing MRI questions. Attempted to call the pt back a couple of times without success. No VM available. documented in this encounter Plan of Treatment Upcoming Encounters Date Type Specialty Care Team Description 08/06/2022 Office Visit Plastic Surgery Peña Woodward MD [facility] PLASTIC SURGERY [place] [phone] ( josé luis) 08/19/2022 Office Visit Podiatry Tom Titus DPM [place], [place] [address] ( josé luis) 09/08/2022 Office Visit Internal Medicine Janay Hay MD [facility] GENERAL INTERNAL MEDICINE [place], [place] [address] (Flores ordonez) 10/12/2059 Hospital Encounter Surgery Jim Hanley MD [facility] SPINE CENTER [place], [place] [address] (Flores ordonez) Scheduled Procedures Name [...] on filedocumented in this encounter Care Teams Battery Charger Tester Relationship Specialty Start Date End Date Tom Hay MD PCP - General General Internal Medicine 09/15/18 [facility] GENER[place] [address] documented as of this encounter
--- OUTSIDE RECORDS SUMMARY | 2022-07-12 00:43 | XMS_ITS | Encounter Summary ---
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 Rad Ct Scan Procedures CT Neck Soft Tissue w Contrast (Generic) [facility] [place] [address] [place] [address] Referral ID Status Reason Start Expiration Visits Visits Date Date Requested Authorized [id number] Authorized Specialty 07/10/2022 01/08/2024 1 1 Service Requested Encounter Details Date Type Department Care Team Description 07/10/2022 Orders Only Otolaryngology at [facility] Luis Antonio Houston Malignant melanoma of [facility] YUNIOR [place] [address] [facility] neck [phone] [place] [facility] [place], [place] [address] Social History Tobacco Use Types [...] place to sleep or slept in a group home (including now)? Sex Assigned at Date Recorded Not on file documented as of this encounter Plan of Treatment Upcoming Encounters Date Type Specialty Care Team Description 08/06/2022 Office Visit Plastic Surgery Peña Woodward MD [facility] PLASTIC SURGERY [place], [place] [address] (Flores ordonez) 08/19/2022 Office Visit Podiatry Tom Titus DPM [place], [place] [address] (Flores ordonez) 09/08/2022 Office Visit Internal Medicine Janay Hay MD [facility] GENERAL INTERNAL MEDICINE [place], [place] [address] (Wo rk) 10/12/2059 Hospital Encounter Surgery Jim Hanley MD [facility] SPINE CENTER [place], [place] [address] (Wo rk) Scheduled Orders Name Type Priority Associated Diagnoses Order S chedule CT Neck Soft Tissue w Imaging Routine Malignant melanoma of Expected: 07/11/2022 Contrast (Generic) mucosa of head and nec k (Approximate), Expires: [address] Standard Imaging Routine Malignant melanoma of Expected: 07/17/2022 Plus Head and Neck mucosa of head and nec k (Approximate), Expires: 2022 MRI Brain wwo Contrast Imaging Routine Malignant melanoma of Expected: 07/17/2022 (Generic) mucosa of head and neck (Yuliana roximate), Expires: 2022 Scheduled Procedures Name Priority Associated Diagnoses Date/Time [...] sequela Scheduled Referrals Name Type Priority Associated Order Schedule Diagnoses Referral to Outpatient Referral Routine Malignant melanoma Or dered: Hematology and of mucosa of head 07/10/20 22 Oncology and neck documented as of this encounter Visit Diagnoses Diagnosis Myeloradiculopathy Unspecified nerve root and plexus disord er 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
--- OUTSIDE RECORDS SUMMARY | 2022-07-12 00:43 | XMS_ITS | Encounter Summary ---
:1965 Author Organization [facility] [place] [address] Care Team Providers Name Role Phone Tom Hay MD Primary Care Provider Reason for Visit Reason Comments Advice Only Discuss panni/abdominoplasty - current smoker, states will quit by the time surgery rolls around Consultation (Routine) - Authorized Specialty Diagnoses / Procedures Referred By Contact Refer red To Contact Plastic Surgery Diagnoses Abdominal pannus Recurrent cellulitis Dmitry Cuenca MD [facility] Plastic Surg [phone] [facility],[address] [address] [place] [address] Referral ID Status Reason Start Date Expiration Visits Visits Date Requested Authorized [id number] Authorized Consult, 03/04/2022 03/04/2023 6 6 Test & Treat Encounter Details Date Type Department Care Team Description 03/11/2022 Office Visit Plastic Surgery at Tirso Woodward, Abdom inal pancharityus; [facility] Diabetes mellitus due to underlying cond ition with other skin complications [facility] [address] [place] PLAST[facility] [place]ERY [id number] [place] [address] Social History Tobacco Use Types Packs/Day Years [...] Sign Reading Time Taken Comments Blood Pressure - - Pulse - - Temperature - - Respiratory Rate - - Oxygen Saturation - - Inhaled Oxygen Concentration - - Weight 84.8 kg (187 lb) 03/11/2022 2:41 PM EDT Height 165.1 cm (5' 5) 03/11/2022 2:41 PM EDT Body Mass Index 31.12 03/11/2022 2:41 PM EDT documented in this encounter Progress Notes Tirso Woodward MD - 03/11/2022 2:45 PM EDT Plastic Surgery Consultation Note Tirso Woodward MD. PCP: Tom Hay MD CC: Abdominal pannus HPI: Joseline Rose is a 56 y.o. female seen in my office today for consideration for abdominal panniculectomy. her PCP, Tom Hay MD has requested the consultation.. She presents today because of increasing difficulty with keeping the fold under her pannus free of rashes and infection, and clean, and odor free. She admits to a history of asthma, COPD, cardiac disease, diabetes, HTN, and fibromyalgia. Her most recent A1c was done on 03/03/22 and was 11.9. Patient admits to smoking. Constant yeast infections and cellulitis underneath her belly. Very painful. She has lost 60lbs. Shelost it through diet, exercise, and ozempic. In the last couple of months, She is continuing to loseweight aproximately 2lbs a month. A1C is high right now. She recently had pneumonia and was put on prednisone. The patient denies heart problems. She does have COPD. She is still a smoker and is down to 3 a day and is taking Chanix. She expects to be fininshed with smoking in a week. She is taking thyroid medicine. She does use Marijuana for pain from a corpectomy in her neck. She denies bleeding/clotting problems. During her she woke up while under anesthesia. The patient does suffer from depresionbut has not had a problem for 20 years. The depression is controlled by her report.. [ X ]The pannus causes a chronic and persistent skin condition (e.g., intertriginous dermatitis, panniculitis, and cellulitis or skin ulcerations) that is refractory to at least three months of medicaltreatment and associated with at least one episode of cellulitis requiring systemic antibiotics. In a ddition to good hygiene practices, treatment should include topical antifungals, topical and/or systemic corticosteroids, and/or local or systemic antibiotics. [ X ]There is presence of a functional deficit due to a severe physical deformity or disfigurement resulting from the pannus. [ X ]The surgery is expected to restore or improve the functional deficit. [ X ]The pannus is interfering with activities of daily living. Past Medical History: Diagnosis Date ??? Allergy [...] r/t neck, has vertigo treated with meclizine Past Surgical History: Procedure Laterality Date ??? CARPAL TUNNEL RELEASE Left ??? SECTION x2 ??? HYSTERECTOMY ??? ORTHOPEDIC SURGERY left shoulder ??? ORTHOPEDIC SURGERY left elbow ??? PRO ANTERIOR INSTRUMENTATION 2-3 VERTEBRAL SEGMENTS Bilateral 11/30/2020 ANT. SPINAL INSTRUMENTATION, 2-3 VERTEBRA, SEGMENTED (WRVU 11.94) performed by [facility] MAIN OR ??? PRO APPLY/REMOVE CRANIAL FIX DEV Bilateral 11/30/2020 PLACEMENT-CRANIAL TONGS (INCLUDING REMOVAL) (WRVU 4) performed by Rashard Hanley MD at [facility] SARAH ??? PRO CERV SPINE FUSN, ANTER, BELOW C2 Bilateral 11/30/2020 ANT. CX. FUSION INCLUD. MIN. DISCECTOMY; BELOW C2 (WRVU 17.69) performed by Rashard Hanley MD Count includes the [facility] MAIN OR ??? PRO INSERT BIOMCHN DEV VRT CORPECTOMY DEFECT W/ARTHRD Bilateral 11/30/2020 INSERTION INTERVERTEBRAL BIOMECH DEV TO VERTEBRAL CORPECTOMY DEFECT, EA CONTIGUOUS DEFECT (WRVU 5.5) performed by Rashard Hanley MD at [facility] MAIN OR ??? PRO LAP, CHOLECYSTECTOMY N/A 07/27/2015 LAPAROSCOPIC CHOLECYSTECTOMY performed by Fabricio Grant MD at [facility] MAIN OR ??? PRO REMV VERT BODY, CERV, ONE SGMT Bilateral 11/30/2020 @ANTERIOR CX CORPECTOMY, ONE LVL (WRVU 26.1) performed by Rashard Hanley MD at [facility] MAIN OR ??? PRO SPINAL FUSION, ANT, EA ADNL LEVEL Bilateral 11/30/2020 ANT. FUSION, INCLUDE. MIN. DISCECTOMY; EA. ADD'L LVL (WRVU 5.52) performed by Rashard Hanley MD at [facility] MAIN OR Social History Socioeconomic History ??? Marital status: [...] Narrative Jim HERNANDEZ, lives alone, family in [place] - mother and her children (ages 30 and 32) Social Determinants of Health Financial Resource Strain: Not on file Food Insecurity: Not on file Transportation Needs: Not on file Physical Activity: Not on file Housing Stability: Not on file ROS: HEENT, GI, /Renal, Psych, Card, Pulm, Endo, Heme, Immun, Neuro: negative Examination: There were no vitals taken for this visit. female in no acute distress, comfortable. Abdomen: Grade 2: Panniculus extends to cover the genitalia Evidence of slight active intertrigo and malodor Well healed super pubic fan and steel incision Ptosis of the mons pubic No obvious hernia striata above the abdominal remenant Impression: Joseline Rose is a suitable candidate for panniculectomy which would likely correcther physical symptomatology. We talked about the scars and risks from panniculectomy. She is aware that infection, delayed wound healing, seroma and numbness are possibilities. She has been provided with the [facility] patient information brochure, as well as their standard informed consent documents on both abdominoplasty, and panniculectomy. She has expressed a desire to proceed with surgical correction.I feel strongly that She will gain significant symptom relief and avoid further intertrigo followingsurgery. We discussed the possible need for revision or touch up in the future as the abdomen skin may become lax following surgery. I explained that relapse is always possible due to the elasticity ofthe skin which is uncontrollable. We reviewed the timing of surgery relative to weight fluctuations and I've advised that surgery is best done at a realistic detention stable weight. We talked about theoutpatient nature of the surgery, drains, postoperative recovery, and time required off work. Post-operative restrictions include no lifting, pushing, or pulling more than 5lbs for 4-6 weeks. She should anticipate 4 weeks off from work. We discussed potential risks and complications which include but are not limited to pain, bleeding, infection, scarring, asymmetry, hematoma, seroma, poor cosmetic outcome, failure of procedure, possible need for revision, recurrence damage to adjacent structures. Photos were obtained today with informed signed consent. A1C should be down below 7 before surgery. Insurance Guidelines [X ] Pannus grade 2 or higher [X ] Rashes; prescribed and documented treatment for any rashes that don???t respond to 3 - 6 monthsof treatment. [ ] If the weight has been lost due to gastric bypass, it must be 18 months s/p bariatric surgery [ ] Patient must be at goal weight and stable 6 months I discussed with the patient the importance of smoking cessation in regards to optimal healing results. I explained to her that there is an increased risk of healing complications actively smoking. Dueto this she will be required to be off of all Nicotine products for at least one month prior to surgery. The patient is aware that she will be Nicotine tested two weeks prior to surgery and again on the day of surgery. Plan: 1. Follow up in 5 months with an A1C drawn 2. Order A1C draw in 4 months Potential Surgical Grid: Surgeon: Dr. Woodward Duration: 2 hours + 1 night Short Stay Unit Timeframe: Elective Coordinated with: None Procedure: Panniculectomy CPT: 06097 Surgical site: Abdomen Side: N/A Anesthesia: General Follow up: 7-10 days with NSO H&P: PCP, Cardiac Clearance Covid Testing: Day of surgery IRadha am acting as scribe for Dr. Woodward. All work documented was performed by Dr. Woodward. ITIRSO MD, performed the services which were documented by the scribe, and I agree with the accuracy of the documentation in this encounter. documented in this encounter Plan of Treatment Upcoming Encounters Date Type Specialty Care Team Description 08/06/2022 Office Visit Plastic Surgery Tirso Woodward MD [facility] PLASTIC SURGERY [place], [place] [address] ( josé luis) 08/19/2022 Office Visit Podiatry Tom Titus DPM [place], [place] [address] (Flores ordonez) 09/08/2022 Office Visit Internal Medicine Janay Hay MD [facility] GENERAL INTERNAL MEDICINE [place], [place] [address] (Flores ordonez) 10/12/2059 Hospital Encounter Surgery Jim Hanley MD [facility] SPINE [facility] [place], [place] [address] (Flores ordonez) Scheduled Orders Name Type Priority Associated Diagnoses Order S chedule Hemoglobin A1c Lab Routine Abdominal pannus Expected: 07/11/2022, Diabetes mellitus due to Exp ires: 07/11/2022 underlying condition with ot her skin complications Scheduled Procedures Name Priority Associated Diagnoses Date/Time [...] plexus disord er Abdominal pannus Localized adiposity Diabetes mellitus due to underlying cond ition with other skin complications documented in this encounter Care Teams Tree Trimmer Helper Relationship Specialty Start Date End Date Tom Hay MD PCP - General General Internal Medicine 09/15/18 [facility] [place] [address] documented as of this encounter
--- OUTSIDE RECORDS SUMMARY | 2022-07-12 00:43 | XMS_ITS | Encounter Summary ---
:1965 Author Organization [facility] Address [facility] [place] [address] Care Team Providers Name Role Phone Tom Hay MD Primary Care Provider Encounter Details Date Type Department Care Team Description 03/27/2022 Telephone Internal Medicine at [facility] Tom Hay MD [facility] [phone] GENERAL INTERNAL MEDICINE [phone] [place], [place] [address] (Wo rk) Social History Tobacco [...] this encounter Miscellaneous Notes Telephone Encounter - Ronald Rodriguez APRN - 03/27/2022 6:50 PM EDT Patient states she is slowly feeling better. Diabetes: ?? Fasting glucose readings are better and have been around 170 the past couple of days. ?? Patient has prescription for Glyburide from outside facility but Glipizide from . Wanted clarification as to which she should take. I instructed her to take the Glipizide and discard the Glyburide. ?? Still not on Lantus. GERD ?? Taking all medications as prescribed. Still having some nighttime symptoms. Other ?? Has not started Lyrica Telephone Encounter - Rianna Doyle Brooke - 03/27/2022 12:20 PM EDT Message: Patient was seen on 03/14/22 and states she was told to call in and keep us updated on how her blood sugar levels are, so she is calling with an update. She stated that she is still not feeling well and having a hard time keeping food down. Please call to advise. Ask caller their first and last name and relationship to the patient: self Best time to call back: any Ok to leave a message: no Ok to send my- message: no Offered Appointment: na MA/Nurse/[place] contacted via: Message: X Call: na Pager: na documented in this encounter Plan of Treatment Upcoming Encounters Date Type Specialty Care Team Description 08/06/2022 Office Visit Plastic Surgery Peña Woodward MD [facility] PLASTIC SURGERY [place], [place] [address] (Wo rk) 08/19/2022 Office Visit Podiatry Tom Titus DPM [place], [place] [address] (Wo rk) 09/08/2022 Office Visit Internal Medicine Janay Hay MD [facility] GENERAL INTERNAL MEDICINE [place], [place] [address] (Wo rk) 10/12/2059 Hospital Encounter Surgery Jim Hanley MD [facility] SPINE CENTER [place], [place] [address] (Wo rk) Scheduled Procedures Name [...] on filedocumented in this encounter Care Teams Plant Superintendent Relationship Specialty Start Date End Date Tom Hay MD PCP - General General Internal Medicine 09/15/18 [facility] GENERAL [place] [address] documented as of this encounter
--- OUTSIDE RECORDS SUMMARY | 2022-07-12 00:43 | XMS_ITS | Encounter Summary ---
:1965 Author Organization [facility] [place] [address] Care Team Providers Name Role Phone Tom Hay MD Primary Care Provider Reason for Visit Consultation (Routine) - Closed Specialty Diagnoses / Procedures Referred By Contact Refer red To Contact Maxillofacial Surgery Diagnoses Oral ulcer LESION OF MOUTH Tom Hay, [facility] Maxillo Surg 5b [facility] Elizabeth Carbone MS GENERAL INTERNAL [address] [place] [address] Referral ID Status Reason Start Date Expiration Date Visits V isits Requested Authorized [id number] Closed Consult, 06/13/2022 06/13/2023 1 1 Test & Treat Encounter Details Date Type Department Care Team Description 06/26/2022 Office Visit Maxillofacial Surgery at Vincent Garcia PA Oral lesion [facility] [place] Kevin rive [place] [address] [place] [address] [phone] (Wo rk) Social History Tobacco Use Types [...] documented as of this encounter Progress Notes Vincent Garcia PA - 06/26/2022 11:30 AM EDT Images from the original note were not included. ORAL-MAXILLOFACIAL SURGERY OUTPATIENT CLINIC INITIAL CONSULTATION VISIT - LESION Name: Joseline Rose Age/Sex: 56 y.o. female History of Present Illness Joseline Rose is a 56 y.o. female referred by Tom Hay for consultation regarding oral lesions. A complete history of the Joseline 's symptoms and physical signs were reviewed with attention to initial findings and progression, pain, bleeding, swelling, lumps, bumps, drainage, dysphagia, odynophagia, paresthesia, dysarthria and systemic effects. Pertinent notations from today's history: ??? Patient has noted black spots and sores on the roof of her mouth for 3-4 years, and these appearto be growing in size and spreading ??? Has noted a sore/lesion develop in the area of a prior dental extraction. She reports having left upper tooth extracted (corresponds with #14) around 2 years ago. She feels that it has never reallyhealed since, noting layers of skin that will not heal, persistent pain ??? Reports she saw dentist in [place] who suspected that she may have retained roots here that need to come out ??? Reports this area was fairly flat over the years, but over the past week has started to bulge and she feels like it may now be an abscess, prompted an ED visit on Thursday and plans prescribed amoxicillin ??? She had been staying in [place] for some time taking care of her father who of cancer. He had paid for the above dental visit. She does not otherwise have an established dentist due to finances, insurance. Previously saw dental care through [facility] however they no longer have a dental provider ??? Currently smokes around 3 cigarettes/day but previously smoked more heavily. Has smoked since age 14 , aside from the times that she was ??? Does smoke marijuana and notes some dry mouth she associates to this, and that she is prone to thrush ??? Denies alcohol consumption Past Medical/Social/Dental History Past Medical History: Diagnosis Date ??? Allergy [...] r/t neck, has vertigo treated with meclizine Patient Active Problem List Diagnosis Code ??? 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 Chronic migraine without aura G43.709 ??? Asthma J45.909 ??? Hypothyroid E03.9 ??? Depression F32.A ??? GERD (gastroesophageal reflux disease) K21.9 ??? Chronic UTI N39.0 ??? Sleep apnea G47.30 ??? Bilateral shoulder pain M25.511, M25.512 ??? Atypical nevus of back D22.5 ??? Dermatofibroma D23.9 ??? Hemangioma - left shoulder M9120/0 ??? DDD (degenerative disc disease), cervical M50.30 ??? Myopia of both eyes with astigmatism and presbyopia H52.13, H52.203, H52.4 ??? Bilateral dry eyes H04.123 ??? Uncontrolled type 2 diabetes mellitus with hyperglycemia E11.65 ??? Combined forms of age-related cataract of both eyes H25.813 ??? COPD (chronic obstructive pulmonary disease) J44.9 ??? Acne vulgaris L70.0 ??? Bipolar II disorder F31.81 ??? Vitamin D deficiency E55.9 ??? Essential hypertension I10 ??? Hyperlipidemia E78.5 ??? Seasonal allergies J30.2 ??? Fibromyalgia M79.7 ??? Schizoaffective disorder F25.9 ??? Colon polyp K63.5 ??? Cervical spondylosis with myelopathy M47.12 ??? S/P C6 corpectomy, C5-7 ACCF 11/30/20 Dr. Hanley Z98.1 ??? Abdominal pain R10.9 ??? Pulmonary nodule R91.1 ??? Necrotizing gingivitis A69.1 ??? Myeloradiculopathy G54.9 ??? Abdominal pannus E65 Social History Tobacco Use ??? Smoking status: Current Every Day Smoker Packs/day: 0.25 Years: 13.00 Pack years: 3.25 Types: Cigarettes ??? Smokeless tobacco: Never Used ??? Tobacco comment: Patient has 3 cigarettes a day Substance Use Topics ??? Alcohol use: No Alcohol/week: 0.0 standard drinks ??? erythromycin (Romycin) 5 mg/gram (0.5 %) Ointment ??? amoxicillin-clavulanate (Augmentin) 875-125 mg Tablet ??? fluocinonide (LIDEX) 0.05 % Solution ??? empagliflozin (Jardiance) 10 mg Tablet ??? dulaglutide (Trulicity) 1.5 mg/0.5 mL Pen Injector ??? betamethasone-calcipotriene (TACLONEX SCALP) 0.005-0.064 % Suspension ??? Clobetasol-Emollient (Olux-E) 0.05 % Foam ??? fluticasone propionate (Flonase) 50 mcg/actuation [place], Suspension ??? olopatadine (Patanol) 0.1 % Drops ??? traMADoL (Ultram) 50 mg Tablet ??? ondansetron ODT (Zofran ODT) 4 mg Tablet, Rapid Dissolve ??? ibuprofen (Motrin) 400 mg Tablet ??? BD Alcohol Swabs Pads, Medicated ??? albuteroL (ProAir HFA) 90 mcg/actuation HFA Aerosol Inhaler ??? ergocalciferoL, vitamin D2, (vitamin D2) 50,000 unit Capsule ??? sucralfate (Carafate) 100 mg/mL Suspension ??? pregabalin (Lyrica) 75 mg Capsule ??? valACYclovir (VALTREX) 1 gram Tablet ??? qydubyttumj-usiwgxmbldmg-tzgzccjeza (Trelegy Ellipta) ??? DULoxetine DR (Cymbalta) 60 mg Capsule, Delayed Release(E.C.) ??? glipiZIDE (Glucotrol) 5 mg Tablet ??? esomeprazole (NexIUM) 40 mg Capsule, Delayed Release(E.C.) ??? amLODIPine (Norvasc) 10 mg Tablet ??? atorvastatin (Lipitor) 20 mg Tablet ??? levothyroxine (Synthroid) 150 mcg Tablet ??? levothyroxine (Synthroid) 25 mcg Tablet ??? hydroCHLOROthiazide (Hydrodiuril) 50 mg Tablet ??? varenicline (Chantix) 1 mg Tablet ??? metroNIDAZOLE (METROCREAM) 0.75 % Cream ??? blood-glucose meter (FREESTYLE) Kit ??? nystatin (Mycostatin) 100,000 unit/mL Suspension ??? meclizine (Antivert) 25 mg Tablet ??? metoclopramide (REGLAN) 5 mg Tablet ??? methocarbamoL (ROBAXIN) 750 mg Tablet ??? blood sugar diagnostic strips Strip ??? Vitamin D 25 mcg (1,000 unit) Tablet ??? cholecalciferol, Vitamin D3, 1,250 mcg (50,000 unit) Capsule ??? ipratropium-albuteroL (DUONEB) 0.5 mg-3 mg(2.5 mg base)/3 mL Solution for Nebulization ??? naratriptan (Amerge) 2.5 mg Tablet ??? lancets (FreeStyle Lancets) 28 gauge Misc ??? cycloSPORINE (Restasis) 0.05 % Dropperette ??? clotrimazole (MYCELEX) 10 mg Gary ??? Calcipotriene 0.005 % Solution ??? estradiol (ESTRACE) 0.01 % (0.1 mg/gram) Cream ??? ondansetron (ZOFRAN) 4 mg Tablet ??? fluticasone (VERAMYST) 27.5 mcg/actuation Galt, Suspension Allergies Allergen Reactions ??? Latex Rash ??? Metformin Nausea And Vomiting ??? Clonazepam Nausea And Vomiting Nauseous, itchy ??? Clonidine (Pf) Other (See Comments) olea johnsons syndrome ??? Codeine Itching and Nausea Only ??? Hydrocodone-Acetaminophen Itching rash ??? Methadone Nausea And Vomiting Had trouble walking and talking after taking for a few days Review of Systems Pertinent positive and negative findings discussed above. ROS with attention to cardiac, pulmonary, hepatic, renal, neurologic, lymphatic, gastroenterologic, constitutional, hematologic, and dermatologic systems reviewed with relevant findings as noted. Physical Exam Vitals: There were no vitals taken for this visit. There is no height or weight on file to calculate BMI. Extraoral exam conducted including facial symmetry, sensory and motor function, alertness and appropriateness to questions and commands, range of jaw motion, TMJ function and skeletal architecture. Neck exam conducted with attention to normal musculature, vasculature and potential adenopathy. Intraoral exam including evaluation of tongue surface and consistency, floor of mouth, buccal and labial mucosa as well as maxillary and mandibular vestibules, hard and soft palate including soft palate elevation and oropharynx as well as dentition, dental arches, occlusion and salivary flow. General: No acute distress, pleasant Focused oral exam: ?? No trismus ?? Tooth #14 absent. Between teeth #13,15 is an exophytic spherical slightly pedunculated lesion approximately 1 cm diameter. Friable and tender. ?? Islands of darkened pigmentation noted. Most prominent of the tuberosity distal to #15, but also distributed across hard and soft palate as well as the posterior oropharynx ?? Ulceration of right palate transition from hard to soft ?? Left mandibular molars absent ?? [place] gingiva of mandible ?? Midline maxillary torus ?? No obvious LAD ?? Normal phonation ?? Appropriate ROM and condylar excursions Neuro: a/o x3 Neck: soft, supple Psych: appropriate, responds to questions normally Imaging Photo including the islands of darkened pigmentation, the exophytic lesion, and the ulceration notedabove Lesions as visible from dental photography mirror Exophytic lesion between teeth #13,15 Panorex obtained date of visit. She does have an unusually impacted tooth #16. There is no appreciable retained roots between teeth #13, 14. Heavy prior restorations. ASSESSMENT & RECOMMENDATIONS Assessment: Multiple oral lesions as described above The exophytic lesion above could perhaps be related to chronic trauma/irritation, or perhaps giant cell or other inflammatory response, however is also clinically concerning for possible SCC. The regions of darkened pigmentation certainly raise suspicion for melanoma though the location would be unusual. Recommendations/plan: Biopsy was recommended. Verbal and written consent was obtained, and this was able to be performed under local anesthesia in clinic on the day of her visit of the regions of the exophytic lesion as well as distal to tooth #15. See separate procedure note. This was performed in conjunction with Dr. Padron. We will call with biopsy results and recommendations based on these results. We appreciate the opportunity to be involved in Ms. Rose's care. YUNIOR Mendoza-Maribel - Oral-Maxillofacial Surgery 06/26/2022 11:42 AM This note may have incorporated obnkm-ip-cled technology and though reviewed typographical or syntaxerrors may remain. documented in this encounter Plan of Treatment Upcoming Encounters Date Type Specialty Care Team Description 08/06/2022 Office Visit Plastic Surgery Peña Woodward MD [facility] PLASTIC SURGERY [place], [place] [address] (Wo rk) 08/19/2022 Office Visit Podiatry Tom Titus DPM [place], [place] [address] (Wo rk) 09/08/2022 Office Visit Internal Medicine Janay Hay MD [facility] GENERAL INTERNAL MEDICINE [place], [place] [address] (Wo rk) 10/12/2059 Hospital Encounter Surgery Jim Hanley MD [facility] SPINE CENTER [place], [place] [address] (Wo rk) Scheduled Procedures Name [...] Routine Oral ulcer Orde red: Surgery 06/13/2022 documented as of this encounter Visit Diagnoses Diagnosis Myeloradiculopathy Unspecified nerve root and plexus disord er Oral lesion Other and unspecified diseases of the or al soft tissues documented in this encounter Care Teams Night Club Manager Relationship Specialty Start Date End Date Tom Hay MD PCP - General Internal Medicine 09/15/18 [facility] GENERAL [place] [address] documented as of this encounter
--- OUTSIDE RECORDS SUMMARY | 2022-07-12 00:43 | XMS_ITS | Encounter Summary ---
:1965 Author Organization [place] [address] Care Team Providers Name Role Phone Tom Hay MD Primary Care Provider Reason for Referral Consultation (Urgent) - Authorized Specialty Diagnoses / Procedures Referred By Contact Refer red To Contact Otolaryngology Diagnoses Malignant melanoma of mouth UNDER REVIEW 07/08/22 W/ H&N TEAM Vincent Garcia PA [facility] Otolaryngology [address] [place] [address] Drive [place]ILL[place] [address] [place] [address] Referral ID Status Reason Start Date Expiration Visits Visits Date Requested Authorized [id number] Authorized Consult, 07/08/2022 07/08/2023 1 1 Test & Treat Encounter Details Date Type Department Care Team Description 07/08/2022 Telephone Maxillofacial Surger y [place] [facility] Vincent Garcia PA [facility] [place] [address] MAXILLOFACIAL SURGERY [phone] [place], [place] [address] (Wo rk) Social History Tobacco [...] place to sleep or slept in a fci (including now)? Sex Assigned at Date Recorded Not on file documented as of this encounter Miscellaneous Notes Telephone Encounter - Vincent Garcia PA - 07/08/2022 8:31 AM EDT The pathology results returned, as below: ? 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 ?? In part B there is invasive melanoma with surface ulceration; the stage is at ??least pT3. ??The relationship between the tissue in part A and B requires clinical ??correlation. This case was reviewed by Drs. Jerardo Rodriguez and Rick Cooln, ??dermatopathologists, who concur with the above interpretation. Reviewed the above results with the patient, consistent with cancer (melanoma). She does report ongoing pain since the biopsy, elected to prescribe additional #15 Percocet. Will facilitate referral to head and neck for additional management. Vincent Garcia PA-C Oral-Maxillofacial Surgery 07/08/2022 Supervising physician: Dash Macdonald MD, DMD documented in this encounter Plan of Treatment Upcoming Encounters Date Type Specialty Care Team Description 08/06/2022 Office Visit Plastic Surgery Peña Woodward MD [facility] PLASTIC SURGERY [place] [address] (Wo rk) 08/19/2022 Office Visit Podiatry Tom Titus DPM [place] [address] (Wo rk) 09/08/2022 Office Visit Internal Medicine Janay Hay MD [facility] GENERAL INTERNAL MEDICINE [place] [id number] (Wo rk) 10/12/2059 Hospital Encounter Surgery Jim Hanley MD [facility] SPINE CENTER [place] [phone] (Wo rk) Scheduled Procedures Name Priority Associated [...] Associated Diagnoses Order S chedule Referral to ENT Outpatient Referral Urgent Malignant melanoma of Ordered: 07/08/2022 mouth documented as of this encounter Visit Diagnoses Diagnosis Myeloradiculopathy Unspecified nerve root 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
--- OUTSIDE RECORDS SUMMARY | 2022-07-12 00:43 | XMS_ITS | Encounter Summary ---
:1965 Author Organization [facility] [place] [address] Care Team Providers Name Role Phone Tom Hay MD Primary Care Provider Reason for Visit Reason Onset Date Comments Medication Refill 04/02/2022 Encounter Details Date Type Department Care Team Description 04/02/2022 Refill [facility], Cervical spondylosis with myelopathy; [facility] [place] cervical [place] arthrode [facility] [place] [address] Social History Tobacco Use Types Packs/Day [...] place to sleep or slept in a assisted (including now)? Sex Assigned at Date Recorded Not on file documented as of this encounter Miscellaneous Notes Telephone Encounter - Lexie Julian RN - 04/02/2022 9:23 AM EDT Received call from pt whose surgery with Dr Hanley was cancelled given high BG. Pt is working with PCP re diabetes management. She reports BG is down to 179'; an updated A1C ispending in a couple months. 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 Pt is out of her Tramadol; she apologizes acknowledging she should have called yesterday. She is taking Tramadol 50 mg, 1 tab 4 times per day as authorized for the pain that prompted her surgery. PDMP query performed; No cencerns noted; Pt is taking the max # tablets as prescribed. Acute Opioid Prescribing: Opioid PDMP 04/02/2022 02/25/2022 02/18/2022 02/07/2022 12/07/2020 11/06/2020 [place] PDMP Query Date 04/02/2022 02/25/2022 02/18/2022 02/07/2022 12/07/2020 12/01/2020 Comment 04/02/22 1 yr [place] PD[place] query performed; noted scripts as previously written by Dr Hanley-no concerns noted. Calculations indicate pt is taking as ordered. 02/25/22 3 yr [place] query performed; Noted Tramadol as prescribed by Dr Hanley as expected. Previous oxycodone scripts associated to previous surgeries. No concerns at this time. 02/18/22 3 yr [place] query performed. Noted 02/11/22 Ultram script; and Oxycodone scripts Nov 2020- december 2020 r/t previous cervical fusion. No concerns noted. 02/07/22 3 yr PDMP query performed; no recent opioid on record; last scripts noted inquiry were those 2 scripts our team wrote for postoperative pain in December 2020 1 post op oxycodone prescription as expected. Monthly RX for xanax [place] PDMP Query Date - - - - - 12/01/2020 [place] Query Date - - - - - 12/01/2020 No flowsheet data found. Acute Opioid Specific Questions 02/25/2022 Date Acute Consent signed 02/25/2022 Comment 02/25/22 Acute opoid consent reviewed and signed; Signed document passed to OR tester regulator to be scanned. Considered the risk of opioid misuse, abuse, diversion? Yes Comment 02/25/22 No concerns at this time. Considered options for non-pharmacological modalities and non-opioid therapy? Yes Comment 02/25/22 Reviewed in detail non opioid pain mgmt options; refill practices; tapering use of opioids post op; our interest for her to maximize non opioid options in effort to minimize opioid use. Pt familiar w our postop pain mgmt practices Some recent data might be hidden Script for a [address] wk supply p[address] to Dr Hanley to sign. Supply as written to provide pain mgmt while she awaitis surgery. Asjked Dr Hanley if he wants to continue to manage this or transition it to PCPgiven no surgical date at this tme. 3:20 Call placed to pt advising her that a 2 wk supply of the Tramadol 50 mg 4 times daily prn had been approved by Dr Hanley and sent to her preferred Pharmacy. Explained that given we do not have a surgical date at this time given the need for interim medical mgmt- that Dr Hanley is requesting that ongoing preoperative pain mgmt be transitioned to Dr Hay, her PCP, if possible. I explained that we ordered a two wk supply to allow time for her to reach out to Dr Reese re this request to determine if a clinic visit was needed. Informed pt that I would send a note to Dr Reese advising him of Dr Hanley's request. documented in this encounter Plan of Treatment Upcoming Encounters Date Type Specialty Care Team Description 08/06/2022 Office Visit Plastic Surgery Peña Woodward MD [facility] PLASTIC SURGERY [place], [place] [address] (Wo rk) 08/19/2022 Office Visit Podiatry Tom Titus DPM [place], [place] [address] (Wo rk) 09/08/2022 Office Visit Internal Medicine Janay Hay MD [facility] GENERAL INTERNAL MEDICINE [place], [place] [address] (Wo rk) 10/12/2059 Hospital Encounter Surgery Jim Hanley MD [facility] SPINE CENTER [place], [place] [address] (Wo rk) Scheduled Procedures Name [...] status documented in this encounter Care Teams Mill Crane Operator Relationship Specialty Start Date End Date Tom Hay MD PCP - General Internal Medicine 09/15/18 [facility] GENERAL [place] [address] documented as of this encounter
--- OUTSIDE RECORDS SUMMARY | 2022-07-12 00:43 | XMS_ITS | Encounter Summary ---
:1965 Author Organization [employer] Address [facility] [place] [address] Care Team Providers Name Role Phone Tom Hay MD Primary Care Provider Encounter Details Date Type Department Care Team Description 06/20/2022 Telephone Internal Medicine at [facility] [place] [place] Tom Hay MD [facility] [place] [address] GENERAL INTERNAL MEDICINE [phone] [place], [place] [address] (Wo rk) Social History Tobacco [...] this encounter Miscellaneous Notes Telephone Encounter - Maricruz Shabazz RN - 06/20/2022 12:11 PM EDT Please see nurse triage note dated 06/20/22. Telephone Encounter - Mitzy Andrade - 06/20/2022 10:29 AM EDT Message: Patient called in stating that she has an abscess in her mouth that she would like to discuss with someone as it is a big bubble that is filled with puss and she is very concerned. Ask caller their first and last name and relationship to the patient: Self Best time to call back: Any Ok to leave a message: Yes Ok to send my- message: No Offered Appointment: NA MA/Nurse/Reduction Furnace Operator Helper contacted via: Message: NA Call: Na Pager: Na documented in this encounter Plan of Treatment Upcoming Encounters Date Type Specialty Care Team Description 08/06/2022 Office Visit Plastic Surgery Peña Woodward MD [facility] PLASTIC SURGERY [place] [address] (Wo rk) 08/19/2022 Office Visit Podiatry Tom Titus DPM [facility] DRIVE [place], [place] [address] (Wo rk) 09/08/2022 Office Visit Internal Medicine Janay Hay MD [facility] GENERAL INTERNAL MEDICINE [place], [place] [address] (Wo rk) 10/12/2059 Hospital Encounter Surgery Jim Hanley MD [facility] SPINE CENTER [place], [place] [address] (Wo rk) Scheduled Procedures Name Priority Associated [...] Diagnoses Not on filedocumented in this encounter Additional Health Concerns Infection Onset Date Last Indicated Resolved Time Rule Out COVID-19 06/20/2022 06/20/2022 06/20/2022 11: 51 PM EDT documented as of this encounter Care Teams Hostess Relationship Specialty Start Date End Date Tom Hay MD PCP - General General Internal Medicine 09/15/18 [facility] GENERAL [place] [address] documented as of this encounter
--- OUTSIDE RECORDS SUMMARY | 2022-07-12 00:43 | XMS_ITS | Encounter Summary ---
:1965 Author Organization [facility] [place] [address] Care Team Providers Name Role Phone Tom Hay MD Primary Care Provider Reason for Visit Reason Onset Date Comments Cyst 06/20/2022 Eye Injury 06/20/2022 Encounter Details Date Type Department Care Team Description 06/20/2022 Nurse Triage Internal Medicine at [facility] Maricruz Shabazz, [place] [address] Social History Tobacco Use Types Packs/Day [...] Encounter - Maricruz Shabazz RN - 06/20/2022 11:33 AM EDT Contacted and spoke to patient. Patient greeted and identified with full name and date of . Reason for Call: Cyst and Eye Injury Assessment/Symptom Review (onset, location, duration, what makes it better or worse, pertinent positives and negatives): Patient reports that the other night she poked her right eye with the corner of her mask. She stated her right eye doesn't want to stay open because the air hitting it is really painful. It is really red and irritated too. Patient reports trying regular eye drops, allergy eye drops, and erythromycin in it and nothing has helped. Patient stated it constantly feels really dry and I think I scratched it or something. She stated that she woke up this morning and thinks her gums are all infected. Patient stated thatshe had a sore on her gum for about 8 months and other nonhealing sores on the roof of her mouth that are turning black that she was seen for by PCP Dr. Hay on 06/13/22 and a referral to oral surgery was placed. She stated that since that appointment, the sore on the gum line that she had for about8 months has now changed into an abscess the size of a large tooth. Patient stated it is really soft and when you look at it you can see a lot of pus and blood inside of it. It is red and white/yellow throughout the abscess. Patient reports having a lot of pressure in her face and sinus pressure up in both cheek bones from what she believes is the abscess. Patient reports having sweating and fevers that started last night, but she does not have a thermometer to check her temperature. Patientreports her pain level to be a 9/10 on pain scale. Worsening Symptoms: Emphasized symptoms that require emergent/urgent care according to [facility] protocols Patient/Caregiver demonstrates understanding via teach back: Yes Disposition: Go to ED Now (or to Office with PCP Approval)--Patient was advised to seek care at her local emergency room now for further evaluation of her new and worsening symptoms. She stated that she will come to [facility] ED now and is about an hour to hour and half away. No further needs at this time. Reason for Disposition ??? SEVERE pain (e.g., excruciating) ??? SEVERE pain (e.g., excruciating) Protocols used: BOIL (SKIN ABSCESS)-A-OH, EYE INJURY-A-OH documented in this encounter Plan of Treatment Upcoming Encounters Date Type Specialty Care Team Description 08/06/2022 Office Visit Plastic Surgery Peña Woodward MD [facility] PLASTIC [place]GERY [place] [phone] ([facility]) 08/19/2022 Office Visit Podiatry Tom Titus DPM [place] [phone] ([facility]) 09/08/2022 Office Visit Internal Medicine Janay Hay MD [facility] GENERAL INTERNAL MEDICINE [place], [place] [address] ( josé luis) 10/12/2059 Hospital Encounter Surgery Jim Hanley MD [facility] SPINE CENTER [place], [place] [address] (Flores ordonez) Scheduled Procedures Name [...] on filedocumented in this encounter Care Teams Lpn Medical Assistant Relationship Specialty Start Date End Date Tom aHy MD PCP - General General Internal Medicine 09/15/18 [facility] GENERAL [place] [address] documented as of this encounter
--- OUTSIDE RECORDS SUMMARY | 2022-07-12 00:44 | XMS_ITS | Encounter Summary ---
:1965 Author Organization [facility] Address [facility] [place] [address] Care Team Providers Name Role Phone Tom Hay MD Primary Care Provider Encounter Details Date Type Department Care Team Description 02/27/2022 Telephone Internal Medicine at [facility] [place] [phone] GENERAL INTERNAL MEDICINE [phone] [place], [place] [address] (Wo rk) Social History Tobacco [...] place to sleep or slept in a penitentiary (including now)? Sex Assigned at Date Recorded Not on file documented as of this encounter Miscellaneous Notes Telephone Encounter - Lashea Merida - 02/27/2022 11:05 AM EDT Medication or supply: semaglutide (Ozempic) 1 mg/dose (4 mg/3 mL) Pen Injector Needs to be changed to a 2 mg pen Insurance Company: Medicare D / [employer] Phone: [phone] Fax: did not have Reference # did not have this [facility] does the prior [facility] put in through Cover my meds in case you use this service. He states 1 mg dose is covered but not 2 mg. The insurance won't pay for the 1 mg pens to be used twice. documented in this encounter Plan of Treatment Upcoming Encounters Date Type Specialty Care Team Description 08/06/2022 Office Visit Plastic Surgery Peña Woodward MD [facility] PLASTIC SURGERY [place], [place] [address] (Flores ordonez) 08/19/2022 Office Visit Podiatry Tom Titus DPM [place], [place] [address] (Flores ordonez) 09/08/2022 Office Visit Internal Medicine Janay Hay MD [facility] GENERAL INTERNAL MEDICINE [place], [place] [address] (Wo rk) 10/12/2059 Hospital Encounter Surgery Jim Hanley MD [facility] SPINE CENTER [place], [place] [address] (Wo rk) Scheduled Procedures Name [...] on filedocumented in this encounter Care Teams Ruby On Rails Engineer Relationship Specialty Start Date End Date Tom Hay MD PCP - General General Internal Medicine 09/15/18 [facility] GENERAL [place] [address] documented as of this encounter
--- OUTSIDE RECORDS SUMMARY | 2022-07-12 00:44 | XMS_ITS | Encounter Summary ---
:1965 Author Organization [facility] [place] [address] Care Team Providers Name Role Phone Tom Hay MD Primary Care Provider Encounter Details Date Type Department Care Team Description 02/27/2022 Telephone Public Health at [facility] Suzie Rapp [facility] Kevin [place] [address] Social History Tobacco Use Types Packs/Day [...] this encounter Miscellaneous Notes Telephone Encounter - Suzie Cantu - 02/27/2022 10:53 AM EDT Is this the first test for Covid 19 If no, please list date of previous test, result, and type of test (Molecular, Antigen, Antibody or unknown): Resides in chcf, retirement or other residential facility No Employee or Household Member of Employee No Healthcare Worker No Telephone call placed/received to schedule Covid 19 testing with patient. Ordering provider: Rashard Halney Testing Facility: [facility] Date of Testin/31 Time of Testing:TBD Symptoms: Pre Op Please send order to listed facility. documented in this encounter Plan of Treatment Upcoming Encounters Date Type Specialty Care Team Description 08/06/2022 Office Visit Plastic Surgery Peña Woodward MD [facility] PLASTIC SURGERY [place], [place] [address] (Wo rk) 08/19/2022 Office Visit Podiatry Tom Titus DPM [place], [place] [address] (Wo rk) 09/08/2022 Office Visit Internal Medicine Janay Hay MD [facility] GENERAL INTERNAL MEDICINE [place], [place] [address] (Wo rk) 10/12/2059 Hospital Encounter Surgery Jim Hanley MD [facility] SPINE CENTER [place], [place] [address] (Wo rk) Scheduled Procedures Name [...] on filedocumented in this encounter Care Teams Metal Bonder Relationship Specialty Start Date End Date Tom Hay MD PCP - General General Internal Medicine 09/15/18 [facility] GENERAL [place] [address] documented as of this encounter
--- OUTSIDE RECORDS SUMMARY | 2022-07-12 00:44 | XMS_ITS | Encounter Summary ---
:1965 Author Organization [facility] [place] [address] Care Team Providers Name Role Phone Tom Hay MD Primary Care Provider Reason for Referral Diagnostic Test (Routine) - Authorized Specialty Diagnoses / Procedures Referred By Contact Refer red To Contact Radiology Diagnoses Cervical spondylosis with myelopathy Neck pain Pseudoarthrosis of cervical spine, sequela Rashard Hanley MD [facility] Rad Mri Procedures MRI Cervical Spine wo Contrast (Generic) [facility] [place] [address] [place] [address] Referral ID Status Reason Start Expiration Visits Visits Date Date Requested Authorized [id number] Authorized Specialty 02/25/2022 08/28/2023 1 1 Service Requested Reason for Visit Reason Comments Follow-up Neck Pain Encounter Details Date Type Department Care Team Description 02/25/2022 Office Visit Pain and Spine Rashard Hanley, Pseudoar throsis of lumbar spine; Center at [facility] Cervical spondylosis with myelopathy; [facility] [place] ; [facility] Pseudoarthrosis of cervical spine, seque la; [place], [place] SPINE CENTER H/O cervical spinal arthrodesis [phone] [place] [address] Social History Tobacco Use Types [...] Sign Reading Time Taken Comments Blood Pressure 125/78 02/25/2022 11:59 AM EDT Pulse 111 02/25/2022 11:59 AM EDT Temperature - - Respiratory Rate - - Oxygen Saturation - - Inhaled Oxygen Concentration - - Weight 83.9 kg (185 lb) 02/25/2022 11:59 AM EDT Height 165.1 cm (5' 5) 02/25/2022 11:59 AM EDT Body Mass Index 30.79 02/25/2022 11:59 AM EDT documented in this encounter Progress Notes Gaby Jones MD - 02/25/2022 12:00 PM EDT Images from the original note were not included. [facility] MD MS Tom Argueta MD [facility] DR GENERAL INTERNAL MEDICINE [place] [phone] Tom Hay MD [facility] GENERAL INTERNAL MEDICINE / [place] N* Dear Colleagues, I had the pleasure of seeing this patient at the [facility] @ [facility] for surgical evaluation. Procedure: C6 corpectomy C5-7 instrumentation arthrodesis 11/30/2020 ?? First follow-up visit: Patient returned in follow-up for regularly scheduled appointment. ??She had increasing symptoms in her neck pain over the past week. ??No pain in her arms just numbness. ??X-rays look good. On first appearance of the x-rays it appears that the cage supply gets kicked out of it and that plate is out. ??However if you go back to the original films there is a large osteophyte offthe inferior aspect of C5. ??Cage is settled but there is no backing out of the screws or cage. ?? Second follow-up visit 02/11/2022: She had a fall approximately 4 weeks ago. At that time a CT was obtained which question of loosening the proximal hardware. Reviewed the images there is been no real change in the alignment from prior images. The question is whether she has a pseudoarthrosis at C5-6. She had no neck pain prior to the fall. Neurologically intact. No evidence of myelopathy or upper extremity weakness. Soft collar recommended. Flex/ext XR C spine. Today's visit 02/25/22: Patient returns today for continued discussion of her symptoms. She continuesto have neck pain that radiates into her bilateral shoulders and down into her bilateral hands. She also has noted an increase in hand weakness, and is dropping things and has difficulty with fine motor tasks. She also describes difficulty with her balance and has had several falls. She also describesbilateral hand numbness and tingling in the ulnar digits. This is all been present since she slippedand almost fell a few months ago. She has tried taking tramadol which helps her pain. She also takesNSAIDs and Tylenol which do not help her pain. No bowel or bladder dysfunction. Recommendations and Plan: Ms. Rose is status post C6 corpectomy with C5-7 instrumentation arthrodesis on 11/30/2020. She had initially been doing very well postoperatively with all of her radicular pain and myelopathic symptoms have resolved. However, a few months ago she slipped on the ice and almost fell but caught herself. Since then, she has had progressive neck pain radiating into the bilateral shoulders as well as clumsiness, balance issues and gait instability, consistent with return of her myelopathic symptoms. Reviewof flexion/extension x-rays do not show any significant hardware complication, however, there is evidence of dynamic movement at C4-5 consistent with a likely pseudoarthrosis. This could be contributing to her symptoms. Given though that she has worsening myelopathy, would recommend obtaining an MRI of her cervical spine. We did discuss surgical treatment of this, which would include a posterior fusion at C5-7 but could include other levels if the MRI is revealing for stenosis or cord signal change at other levels. Of note, patient was recently admitted to the hospital for an infected tooth. She was discharged on oral antibiotics and has finished, however, she still reports pain in her mouth and was provided a referral for OMFS. She has been afebrile and denies any constitutional symptoms, however, will ensure that she does not have any active infection prior to surgery. Plan: 1. MRI C Spine 2. Surgical scheduling for posterior fusion C5-7 Imaging: XR Flex/Ext C Spine --status post C6 corpectomy and C5-7 instrumented fusion with interval change inposition of screws or plate. There is evidence of movement with narrowing of the interspinous gap atC4/5 with flexion and extension, indicating movement through the fusion. PE: General- alert, conversant, no acute distress Resp -breathing comfortably on room air CV-regular rate peripherally Spine -well-healed anterior neck incision. Diffuse tenderness to palpation throughout the posterior aspect of the cervical spine surrounding paraspinal musculature. Full flexion, extension, rotation and lateral bending, though with pain at extremes of motion. Motor intact with shoulder abduction, elbow flexion/extension, wrist flexion/extension, press tender star signal/IO bilaterally. Sensation intact to light touch inall distributions. Sincerely, Gaby Jones MD, MA 02/25/2022 Spine Center Response Trends Patient-reported scores: myD-H Spine Questionnaire responses 10/29/2018 07/04/2020 09/18/2020 12/12/2020 02/05/2021 VR36 - Physical Function (Range: 0-100) - - - - - VR36 - Bodily Pain (Range: 0-100) - - - - - VR36 - PCS (Range: 0-100) - - - - - VR36 - MCS (Range: 0-100) - - - - - Oswestry Disability Index (Range: 0-100) 74 (Crippled) - - - - Neck Disability Index (Range: 0-100) 80 (Complete disability) - 78 (Complete disability) 70 (Complete disability) 32 (Moderate disability) PROMIS-10 Physical Health Score 23.5 37.4 23.5 32.4 23.5 PROMIS-10 Mental Health Score 36.3 53.3 38.8 45.8 48.3 Rashard Francisco MD - 02/25/2022 12:00 PM EDT Images from the original note were not included. [facility] MD MS Tom Argueta MD [facility] GENERAL [place] [address] Dear Colleagues, I had the pleasure of seeing this patient at the [facility] @ [facility] for surgical evaluation. Patient seen in conjunction with the chief resident on the spine service. Please see the resident's note. Procedure: C6 corpectomy C5-7 instrumentation arthrodesis 11/30/2020 Complication: Pseudoarthrosis C4-[address] scan as well as flexion-extension views. Patient is doing remarkably well. However she is started to develop myelopathic symptoms as well as neck pain. The neck pain is quite severe. My concern is she also has infections that have to be addressed in her mouth. There may be some degree of underlying infection that could account for some of the pseudoarthrosis. She has to have her mouth addressed first. However she will require surgical intervention for ishmael pseudoarthrosis at C4- 5. This will require posterior cervical fusion C5-C7 with possible extension to T1. She requires an MRI of her cervical spine without contrast given the shortage in contrast. Based on this MRI she may need more levels instrumented. She does have a slight listhesis at C3-4. I discussed the risk and benefits surgical invention with her in detail. The risk of paralysis nonunion instrumentation problems infection hardware failure as well as others were discussed. She understands that just like her last surgery multiple risks are possible. These include Bleeding, infection, nerve injury, spinal cord injury including paralysis, weakness including C5 palsy, numbness, spinal fluid leak, continued worsening neck, or other pain, loss of bowel, bladder, or sexual function, failure to improve, major blood vessel injury, instability, additional surgery, adjacent segment degeneration, stiffness, blindness, blood clots, fusion failure or hardware malposition or failure, bone graftdonor site pain, scar formation, stroke, other potential risks and complications including . All questions were answered. Plan: 1. Proposed procedure posterior cervical instrumented fusion with allograft autograft and iliac crest bone graft C5-C7 possible extension to T1. 2. Consent day of surgery is okay. 3. Requires MRI of the cervical spine preferably with contrast but given contrast shortage will be without contrast likely. Sincerely, Rashard Hanley MD [facility] Wallpaper Consultant - Orthopedic Spine Surgery Life Skills Educator - Department of Orthopedic Surgery / Academics and Research Christmas Tree Grader - [facility] 03/02/2022 Spine Center Response Trends Patient-reported scores: myD-H Spine Questionnaire responses 10/29/2018 07/04/2020 09/18/2020 12/12/2020 02/05/2021 VR36 - Physical Function (Range: 0-100) - - - - - VR36 - Bodily Pain (Range: 0-100) - - - - - VR36 - PCS (Range: 0-100) - - - - - VR36 - MCS (Range: 0-100) - - - - - Oswestry Disability Index (Range: 0-100) 74 (Crippled) - - - - Neck Disability Index (Range: 0-100) 80 (Complete disability) - 78 (Complete disability) 70 (Complete disability) 32 (Moderate disability) PROMIS-10 Physical Health Score 23.5 37.4 23.5 32.4 23.5 PROMIS-10 Mental Health Score 36.3 53.3 38.8 45.8 48.3 documented in this encounter Plan of Treatment Upcoming Encounters Date Type Specialty Care Team Description 08/06/2022 Office Visit Plastic Surgery Peña Woodward MD [facility] PLASTIC SURGERY [place], [place] [address] (Wo rk) 08/19/2022 Office Visit Podiatry Tom Titus DPM [place], [place] [address] (Wo rk) 09/08/2022 Office Visit Internal Medicine Janay Hay MD [facility] GENERAL INTERNAL MEDICINE [place], [place] [address] (Wo rk) 10/12/2059 Hospital Encounter Surgery Jim Hanley MD [facility] DR SPINE CENTER [place], [place] [address] (Wo rk) Scheduled Orders Name Type Priority Associated Diagnoses Order S chedule MRI Cervical Spine wo Imaging Routine Cervical spondylosi s Expected: Contrast (Generic) with myelopat hy 03/11/2022, Expires: Neck pain 05/28/2022 Pseudoarthrosis of cervical spine, sequela SURGICAL CASE REQUEST Procedures Routine Cervical spondylosi s Ordered: 02/25/2022 NO POSTOP PAIN: with myelopathy @ARTHRODESIS, Neck pain POSTERIOR CERVICAL Pseudoarthrosis of SPINE (WRVU 17.4) cervical spine, sequela CBC (with Diff) Lab Routine Cervical spondylosis Expe cted: with myelopathy 02/25/2022, Expires: Neck pain 08/27/2022 Pseudoarthrosis of cervical spine, sequela XR Cervical Spine 2 or Imaging Routine Cervical spondylos is Expected: 03/27/2022 3 Views with myelopathy (Approximate), Neck pain Expires: 09/26/2022 Pseudoarthrosis of cervical spine, sequela Scheduled Procedures [...] as of this encounter Visit Diagnoses Diagnosis Pseudoarthrosis of cervical spine, seque la Cervical spondylosis with myelopathy Neck pain Cervicalgia H/O cervical spinal arthrodesis Arthrodesis status Myeloradiculopathy Unspecified nerve root and plexus disord er documented in this encounter Care Teams Satellite Tv Technician Installer Relationship Specialty Start Date End Date Tom Hay MD PCP - General Internal Medicine 09/15/18 [facility] [place] [address] documented as of this encounter
--- OUTSIDE RECORDS SUMMARY | 2022-07-12 00:44 | XMS_ITS | Encounter Summary ---
:1965 Author Organization [facility] Address [facility] [place] [address] Care Team Providers Name Role Phone Tom Hay MD Primary Care Provider Encounter Details Date Type Department Care Team Description 02/27/2022 Orders Only Public Health at [facility] C Gaby Wilhelm *Screening for [facility] M [place] COVID-[place] [address] Social History Tobacco Use Types Packs/Day Years [...] place to sleep or slept in a half-way (including now)? Sex Assigned at Date Recorded Not on file documented as of this encounter Plan of Treatment Upcoming Encounters Date Type Specialty Care Team Description 08/06/2022 Office Visit Plastic Surgery Peña Woodward MD [facility] PLASTIC SURGERY [place], [place] [address] (Wo rk) 08/19/2022 Office Visit Podiatry Tom Titus DPM [place], [place] [address] (Wo rk) 09/08/2022 Office Visit Internal Medicine Janay Hay MD [facility] GENERAL INTERNAL MEDICINE [place], [place] [address] (Wo rk) 10/12/2059 Hospital Encounter Surgery Jim Hanley MD [facility] SPINE CENTER [place], [place] [address] (Wo rk) Scheduled Procedures Name [...] Unspecified nerve root and plexus disord er *Screening for COVID-19 virus documented in this encounter Care Teams Wood Pile Driver Operator Relationship Specialty Start Date End Date Tom Hay MD PCP - General General Internal Medicine 09/15/18 [facility] GENER[place] [address] documented as of this encounter
--- OUTSIDE RECORDS SUMMARY | 2022-07-12 00:44 | XMS_ITS | Encounter Summary ---
:1965 Author Organization [facility] Address [facility] [place] [address] Care Team Providers Name Role Phone Tom Hay MD Primary Care Provider Encounter Details Date Type Department Care Team Description 03/03/2022 Clinical Support Same Day at [facility] [place] [address] Social History Tobacco Use Types Packs/Day [...] - Inhaled Oxygen Concentration - - Weight 80 kg (176 lb 6.4 oz) 03/03/2022 3:13 PM EDT Height 165.1 cm (5' 5) 03/03/2022 3:13 PM EDT Body Mass Index 29.35 03/03/2022 3:13 PM EDT documented in this encounter Progress Notes Nuvia Vázquez RN - 03/03/2022 3:30 PM EDT PCC questionnaire reviewed with patient while in the [facility]. Pre- operative instruction booklet reviewed. Patient verbalizes a good understanding of all information reviewed. PLAN: Testing: Labs Special medication instructions: Procedure date: 03/14 Pre Surgery Covid screening patient response: No documented in this encounter Plan of Treatment Upcoming Encounters Date Type Specialty Care Team Description 08/06/2022 Office Visit Plastic Surgery Peña Woodward MD [facility] PLASTIC SURGERY [place], [place] [address] (Flores ordonez) 08/19/2022 Office Visit Podiatry Tom Titus DPM [place], [place] [address] (Flores ordonez) 09/08/2022 Office Visit Internal Medicine Janay Hay MD [facility] GENERAL INTERNAL MEDICINE [place], [place] [address] (Wo rk) 10/12/2059 Hospital Encounter Surgery Jim Hanley MD [facility] DR SPINE CENTER [place], [place] [address] (Wo rk) Scheduled Procedures Name [...] on filedocumented in this encounter Care Teams Talent Development Consultant Relationship Specialty Start Date End Date Tom Hay MD PCP - General General Internal Medicine 09/15/18 [facility] GENERAL [place] [address] documented as of this encounter
--- OUTSIDE RECORDS SUMMARY | 2022-07-12 00:44 | XMS_ITS | Encounter Summary ---
:1965 Author Organization [facility] Address [facility] [place] [address] Care Team Providers Name Role Phone Tom Hay MD Primary Care Provider Encounter Details Date Type Department Care Team Description 02/17/2022 Telephone Pain and Spine Center at [facility], Cleo Cox RN [facility] [address] Social History Tobacco Use Types Packs/Day [...] Telephone Encounter - Lexie Julian RN - 02/17/2022 11:18 AM EDT Call placed to Image Library to assure we did not have the 02/12/22 Cervical XR that had not yet been uploaded- Given we had the report that was attatched to a MRI./MRA line item. Jeremy confrimed we did not have the Xray. Faxed request to [facility] requesting the 02/12/22 Cervical XR be e- transferred to [facility] , attention Dr Rashard Dunham, Upon receipt will bring to Dr Hanley's attention so he can review and then call pt as planned. 02/18/22 Noted the 5/4 C spine XR has been received and uploaded. Advised Dr Hanley of availability and pt's expectation of a call post review. Passed radiology report to flow to be scanned. Telephone Encounter - Jennifer Stark RN - 02/17/2022 11:14 AM EDT Incoming call from Joseline asking about the images she had sent over from [facility]. I was able to see the report but unable to find the images. I spoke with Lexie, Spine RN, who also verified seeing report but not the images. Per Lexie, I let Joseline know that she will reach out to [place] to request the images. [facility]ie will check for the arrival of the films and get them to Dr. Hanley when they arrive. Joseline verbalized understanding. MARCOS Sharma documented in this encounter Plan of Treatment Upcoming Encounters Date Type Specialty Care Team Description 08/06/2022 Office Visit Plastic Surgery Peña Woodward MD [facility] PLASTIC SURGERY [place], [place] [address] (Wo rk) 08/19/2022 Office Visit Podiatry Tom Titus DPM [place], [place] [address] (Wo rk) 09/08/2022 Office Visit Internal Medicine Janay Hay MD [facility] GENERAL INTERNAL MEDICINE [place], [place] [address] (Wo rk) 10/12/2059 Hospital Encounter Surgery Jim Hanley MD [facility] DR SPINE CENTER [place], [place] [address] (Wo rk) Scheduled Procedures Name [...] on filedocumented in this encounter Care Teams Corporate Specialist Relationship Specialty Start Date End Date Tom Hay MD PCP - General General Internal Medicine 09/15/18 [facility] [place] [address] documented as of this encounter
--- OUTSIDE RECORDS SUMMARY | 2022-07-12 00:44 | XMS_ITS | Encounter Summary ---
:1965 Author Organization [facility] Address [facility] [place] [address] Care Team Providers Name Role Phone Tom Hay MD Primary Care Provider Encounter Details Date Type Department Care Team Description 03/04/2022 Telephone Internal Medicine at [facility] Selena Chisholm [facility] Kevin [place] [address] Social History Tobacco Use Types Packs/Day [...] this encounter Miscellaneous Notes Telephone Encounter - Selena Chisholm - 03/04/2022 9:59 AM EDT 1st attempt to contact Pt at [] Left Message for Pt to return call to the Office [] Unable to leave message the mailbox is full and cannot accept any messages at this time. Naima [x] Unable to leave message the person you are trying to reach has a voicemail box that has not been set up yet. Please try again later. Naima. [] Unable to leave message the libertarian you are trying to reach is not accepting calls at this time [] Unable to leave message The person you are trying to reach is out of service, please try your call again later [] Line Busy [] Other: [x] PSC ok to schedule No answer. Needs to sched an extended physical exam. documented in this encounter Plan of Treatment Upcoming Encounters Date Type Specialty Care Team Description 08/06/2022 Office Visit Plastic Surgery Peña Woodward MD [facility] PLASTIC SURGERY [place], [place] [address] (Wo josé luis) 08/19/2022 Office Visit Podiatry Tom Titus DPM [place], [place] [address] (Flores ordonez) 09/08/2022 Office Visit Internal Medicine Janay Hay MD [facility] GENERAL INTERNAL MEDICINE [place], [place] [address] (Wo rk) 10/12/2059 Hospital Encounter Surgery Jim Hanley MD [facility] DR SPINE CENTER [place] [phone] (Wo rk) Scheduled Procedures Name Priority Associated [...] on filedocumented in this encounter Care Teams Rifle Case Repairer Relationship Specialty Start Date End Date Tom Hay MD PCP - General General Internal Medicine 09/15/18 [facility] GENERAL INTERNAL MEDICINE [place] [phone] documented as of this encounter
--- OUTSIDE RECORDS SUMMARY | 2022-07-12 00:44 | XMS_ITS | Encounter Summary ---
:1965 Author Organization [facility] Address [facility] [place] [address] Care Team Providers Name Role Phone Tom Hay MD Primary Care Provider Reason for Visit Reason Onset Date Comments Medication Problem 02/26/2022 Pharmacist called fo r clarification for this medication Encounter Details Date Type Department Care Team Description 02/26/2022 Telephone Internal Medicine at Tom Hay dication Problem [facility] MD Kevin (Pharmacist called for [facility] cla rification for this Drive DR medication) [place], [place] GENERAL INTERNAL [address] MEDICINE [phone] [place], [place] [address] (Wo rk) Social History Tobacco [...] this encounter Miscellaneous Notes Telephone Encounter - Shabnam Cunningham CCMA - 02/28/2022 4:39 PM EDT A new one was sent on the Telephone Encounter - Alfa Erwin - 02/26/2022 2:39 PM EDT Augie called back stating that He received three prescriptions for Ozempic and he would like Tom Hay MD to resend the correct one to the pharmacy Telephone Encounter - Alivia Kaur - 02/26/2022 2:29 PM EDT Pharmacy or caller: Augie Pharmacist Medication: semaglutide (Ozempic) 1 mg/dose (4 mg/3 mL) Pen Injector Message: Pharmacy received two prescriptions for this medication with different instructions. They would like further clarifications Did you contact your pharmacy?: n/a documented in this encounter Plan of Treatment Upcoming Encounters Date Type Specialty Care Team Description 08/06/2022 Office Visit Plastic Surgery Peña Woodward MD [facility] PLASTIC SURGERY [place], [place] [address] (Wo rk) 08/19/2022 Office Visit Podiatry Tom Titus DPM [place], [place] [address] (Wo rk) 09/08/2022 Office Visit Internal Medicine Janay Hay MD [facility] GENERAL INTERNAL MEDICINE [place], [place] [address] (Wo rk) 10/12/2059 Hospital Encounter Surgery Jim Hanley MD [facility] SPINE CENTER [place], [place] [address] (Wo rk) Scheduled Procedures Name [...] on filedocumented in this encounter Care Teams Grocery Associate Relationship Specialty Start Date End Date Tom Hay MD PCP - General General Internal Medicine 09/15/18 [facility] GENERAL [place] [address] documented as of this encounter
--- OUTSIDE RECORDS SUMMARY | 2022-07-12 00:44 | XMS_ITS | Encounter Summary ---
:1965 Author Organization [facility] Address [facility] [place] [address] Care Team Providers Name Role Phone Tom Hay MD Primary Care Provider Reason for Referral Consultation (Routine) - Closed Specialty Diagnoses / Procedures Referred By Contact Refer red To Contact Maxillofacial Surgery Diagnoses Oral lesion Tom Hay, [facility] [address] [facility] [address] [place], [place] [address] [place] [address] Referral ID Status Reason Start Date Expiration Date Visits V isits Requested Authorized [id number] Closed Consult, 02/26/2022 02/26/2023 1 1 Test & Treat Reason for Visit Reason Comments Diabetes Encounter Details Date Type Department Care Team Description 02/26/2022 TH Visit Internal Medicine at Tom Hay Ch ronic obstructive pulmonary disease with acute exacerbation; (TeleHealth) [facility] MD Kevin Low vitamin D level; [facility] Upp er abdominal pain; Drive Oral lesion; [place], [place] GENERAL INTERNAL Essential h ypertension [address] MEDICINE [phone] [place], [place] [address] Social History Tobacco Use Types Packs/Day Years [...] as of this encounter Patient Instructions Patient InstructionsBraTom cantu MD - 02/26/2022 2:04 PM EDT Start glargine insulin tonight- 16 units. Adjust dose based on fasting Glucose>200 - increase by 2 units/day, cumulatively Glucose 80-100- reduce dose by 1 unit/day. If <80, reduce by 2 units. Increase Ozempic to 2mg/week. documented in this encounter Progress Notes Tom Hay MD - 02/26/2022 1:40 PM EDT General Internal Medicine - Clinic Note Subjective -Joseline Rose is a 56 y.o. female presenting for follow up who has Asthma; Hypothyroid; Depression; Sleep apnea; Uncontrolled type 2 diabetes mellitus with hyperglycemia; COPD (chronicobstructive pulmonary disease); Bipolar II disorder; Vitamin D deficiency; Essential hypertension; and Hyperlipidemia on their pertinent problem list. Phone visit- has missed appts, not seen in > a year DM- Glu>600 2 weeks ago in ED; last A1c 9.6 08/01. Still >800. Was on prednisone- now off for 6d. For pna. Has a tooth broken. Very thristly On glipizide x 1 week, Ozempic; can't tolerate metformin. Htn- not checking. COPD- Breathing is still an issue, s/p pna Still smlking- 3/d. Wants to do chantix' still on trelegy. Plantar warts- taking mupirocin- no better. HCM-??11/01 JEANMARIE Family History CAD-??no Ca-??mother with breast, nonmelanoma skin.?? 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 Cut out due to diabetes. Smokes MJ- medical; no other illicits.?? No questionnaires available. Assessment and Plan 1. DM- out of control. Can use lispro when quite high. Will incr Ozempic to 2/week and start lantus at 16/d- titrating up by 2u/d for FBS>200. Getting labs in 2d. 2. COPD- cont trelegy, DC cigarettes with Chantix. 3. Oral surgery consult placed, although warned this may not be able to happen at 4. Plantar warts- podiatry Encouraged FU with me, to avoid ED/inpt and multiple specialists FU by [facility] for insulin titration, in person in 1-2 mo documented in this encounter Plan of Treatment Upcoming Encounters Date Type Specialty Care Team Description 08/06/2022 Office Visit Plastic Surgery Peña Woodward MD [facility] PLASTIC SURGERY [place], [place] [address] (Wo rk) 08/19/2022 Office Visit Podiatry Tom Titus, [place], [place] [address] (Wo rk) 09/08/2022 Office Visit Internal Medicine Janay Hay MD [facility] GENERAL INTERNAL MEDICINE [place], [place] [address] (Wo rk) 10/12/2059 Hospital Encounter Surgery Jim Hanley MD [facility] SPINE CENTER [place], [place] [address] (Wo rk) Scheduled Procedures Name [...] Referral to Oral Outpatient Referral Routine Oral lesion Orde red: Surgery 02/26/2022 documented as of this encounter Visit Diagnoses Diagnosis Myeloradiculopathy Unspecified nerve root and plexus disord er Chronic obstructive pulmonary disease wi th acute exacerbation Obstructive chronic bronchitis with exac erbation Low vitamin D level Upper abdominal pain Abdominal pain, other specified site Oral lesion Other and unspecified diseases of the or al soft tissues Essential hypertension Unspecified essential hypertension documented in this encounter Care Teams Sprinkler Fitter Apprentice Relationship Specialty Start Date End Date Tom Hay MD PCP - General General Internal Medicine 09/15/18 [facility] GENER[place] [address] documented as of this encounter
--- OUTSIDE RECORDS SUMMARY | 2022-07-12 00:44 | XMS_ITS | Encounter Summary ---
:1965 Author Organization [facility] [address] Care Team Providers Name Role Phone Tom Hay MD Primary Care Provider Reason for Visit Reason Onset Date Comments Medication Refill 03/03/2022 Encounter Details Date Type Department Care Team Description 03/03/2022 Refill Internal Medicine at Tom Hay, Cervical spondylosis with myelopathy; [facility] H/O cervical spinal arthrodesis [facility] [address] [place] [address] MEDICINE [phone] [place], [place] [address] (Wo rk) Social History Tobacco [...] this encounter Miscellaneous Notes Telephone Encounter - Magda Vergara - 03/03/2022 9:05 AM EDT Patient states she only has enough medication for tomorrow 03/04/2022. documented in this encounter Plan of Treatment Upcoming Encounters Date Type Specialty Care Team Description 08/06/2022 Office Visit Plastic Surgery Peña Woodward MD [facility] PLASTIC SURGERY [place] [address] (Flores ordonez) 08/19/2022 Office Visit Podiatry Tom Titus DPM [place], [place] [address] (Flores ordonze) 09/08/2022 Office Visit Internal Medicine Janay Hay MD [facility] GENERAL INTERNAL MEDICINE [place], [place] [address] (Flores ordonez) 10/12/2059 Hospital Encounter Surgery Jim Hanley MD [facility] ER DR SPINE CENTER [place], [place] [address] (Wo rk) Scheduled Procedures Name [...] status documented in this encounter Care Teams Derrick Helper Relationship Specialty Start Date End Date Tom Hay MD PCP - General General Internal Medicine 09/15/18 [facility] [place] [address] documented as of this encounter
--- OUTSIDE RECORDS SUMMARY | 2022-07-12 00:44 | XMS_ITS | Encounter Summary ---
:1965 Author Organization [facility] Address [facility] [place] [address] Care Team Providers Name Role Phone Tom Hay MD Primary Care Provider Encounter Details Date Type Department Care Team Description 02/25/2022 Telephone Internal Medicine at [facility] Tom Hay MD [facility] [place] [address] GENERAL INTERNAL MEDICINE [phone] [place], [place] [address] (Wo rk) Social History Tobacco [...] this encounter Miscellaneous Notes Telephone Encounter - Dang Cabrera - 02/25/2022 2:41 PM EDT Magi, We have scheduled a pre-operative appointment for your patient. Surgery is scheduled for 03-14-2022 and the surgery reason is Cervical Spine surgery . There are no appointments available with you within 30 days of the surgery. The appointment has been scheduled with Priyanka Mojica PA on 02-28-2022. I am informing you per scheduling protocol that the pre-operative appointment is not scheduled with you. Please direct any changes for scheduling to your Exit Shokan. Thank you, documented in this encounter Plan of Treatment Upcoming Encounters Date Type Specialty Care Team Description 08/06/2022 Office Visit Plastic Surgery Peña Woodward MD [facility] PLASTIC SURGERY [place], [place] [address] (Wo rk) 08/19/2022 Office Visit Podiatry Tom Titus DPM [place], [place] [address] (Wo josé luis) 09/08/2022 Office Visit Internal Medicine Janay Hay MD [facility] GENERAL INTERNAL MEDICINE [place], [place] [address] (Wo rk) 10/12/2059 Hospital Encounter Surgery Jim Hanley MD [facility] DR SPINE CENTER [place], [place] [address] (Wo rk) Scheduled Procedures Name [...] on filedocumented in this encounter Care Teams Medical Device Relationship Specialty Start Date End Date Tom Hay MD PCP - General General Internal Medicine 09/15/18 [facility] GENERAL [place] [address] documented as of this encounter
--- OUTSIDE RECORDS SUMMARY | 2022-07-12 00:44 | XMS_ITS | Encounter Summary ---
:1965 Author Organization [facility] [place] [address] Care Team Providers Name Role Phone Tom Hay MD Primary Care Provider Encounter Details Date Type Department Care Team Description 02/12/2022 Ancillary Procedure Radiology [place] [facility] Styles [facility] [place] [address] SPINE CENTER [phone] [place], [place] [address] (Wo rk) Social History Tobacco [...] [facility] PLASTIC SURGERY [place] [address] ([facility]) 08/19/2022 Office Visit Podiatry Tom Titsu DPM [place] [phone] ( rk) 09/08/2022 Office Visit Internal Medicine Janay Hay MD [facility] GENERAL INTERNAL MEDICINE [place] [address] (Wo rk) 10/12/2059 Hospital Encounter Surgery Jim Hanley MD [facility] SPINE CENTER [place] [address] (Flores ordonez) Scheduled Procedures Name Priority Associated [...] Name Priority Date/Time Associated Diagnosis Comme nts FILM LIBRARY Routine 02/12/2022 12:00 AM Results for this STORAGE ONLY DX EDT procedure ar e in SPINE the results section. documented in this encounter Results Film Library- Storage Only DX Spine (02/12/2022 12:00 AM EDT) Specimen (Source) Anatomical Location Collection Method / Collectio n Time Received Time / Laterality Volume Narrative URI BUENO - 02/18/2022 12:14 AM EDT This exam is auto-finalizing. It's purpo se is for storage only. Rashard Hanley MD IMG FILM LIBRARY ORDERABLES Performing Organization Address City/State/ZIP Code Phon e Number XIMENA XIMENA [place], [place] documented in this encounter Visit Diagnoses Not on filedocumented in this encounter Care Teams Head Shipper Relationship Specialty Start Date End Date Tom Hay MD PCP - General Internal Medicine 09/15/18 [facility] [place] [address] documented as of this encounter
--- OUTSIDE RECORDS SUMMARY | 2022-07-12 00:44 | XMS_ITS | Encounter Summary ---
:1965 Author Organization [facility] Address [facility] [place] [address] Care Team Providers Name Role Phone Tom Hay MD Primary Care Provider Reason for Visit Reason Onset Date Comments Prior Authorization 02/27/2022 semaglutide (Ozempic ) 1 mg/dose (4 mg/3 mL) Pen Injector Encounter Details Date Type Department Care Team Description 02/27/2022 Telephone Internal Medicine at Priyanka Mo Pr ior Authorization [facility] MAINTENANCE MANAGER (semaglutide (Ozempic) 1 [facility] mg/dose ( 4 mg/3 mL) Pen Drive Injector) [place] [address] Social History Tobacco Use Types Packs/Day [...] Telephone Encounter - Priyanka Mo CMA - 02/28/2022 11:30 AM EDT Images from the original note were not included. Medication Prior Authorization Approval Approved: semaglutide (Ozempic) 1 mg/dose (4 mg/3 mL) Pen Injector Start Date: 02/28/2022 End Date: 10/11/2022 Case/Reference #: [id number] See Approval Letter in scanned documents. Telephone Encounter - Mitzy Still CMA - 02/28/2022 9:32 AM EDT Images from the original note were not included. Additional information request form received via fax from [employer]. Form filled out, faxed back to [employer] at [phone] and scanned into the chart. Telephone Encounter - Priyanka Mo CMA - 02/27/2022 1:27 PM EDT Medication Prior Authorization Request received via: Cover My Meds Patient: Joseline Rose Patient : 1965 Insurance Company: [id number] Sent via: Cover My Meds Jolly: [id number] Physician: Tom Hay MD Medication Requested: semaglutide (Ozempic) 1 mg/dose (4 mg/3 mL) Pen Injector Frequency/Sig: Inject 2 mg subcutaneously once a week. Disp: 18 mL Refills: 3 Currently taking: yes If yes, how lon12/23/2019 Diagnosis for this medication: Uncontrolled type 2 diabetes mellitus with hyperglycemia ICD-10 code: E11.65 Prior medications trialed in this patient: Medication: Metformin Approx Dates: 08/21/2017-04/07/2019 Outcome/Adverse Reactions:adverse reaction, nausea/vomiting Medication: Metformin XR Approx Dates: 04/07/2019-11/22/2020 Outcome/Adverse Reactions: adverse reaction, nausea/vomiting Medication: Insulin lispro (Humalog) Approx Dates: 03/2016-current Outcome/Adverse Reactions: Inadequate response alone Medication: insulin glargine (LANTUS SOLOSTAR U-100 INSULIN) 100 unit/mL (3 mL) pen Approx Dates: 04/2018-current Outcome/Adverse Reactions: Inadequate response alone Medication: INSULIN DETEMIR (LEVEMIR FLEXPEN SUBQ) Approx Dates: 02/2017-08/2017 Outcome/Adverse Reactions: Inadequate response alone Medication: insulin aspart (NOVOLOG) 100 unit/mL pen injection Approx Dates: 02/2013-05/2016 Outcome/Adverse Reactions: Inadequate response alone Medication: glyBURIDE (DIABETA) 5 mg tablet Approx Dates: 02/2014 Outcome/Adverse Reactions: Inadequate response alone Medication: glipiZIDE (Glucotrol) 5 mg Tablet Approx Dates: 04/2018-current Outcome/Adverse Reactions: Inadequate response alone Additional Notes: documented in this encounter Plan of Treatment Upcoming Encounters Date Type Specialty Care Team Description 08/06/2022 Office Visit Plastic Surgery Peña Woodward MD [facility] PLASTIC SURGERY [place], [place] [address] (Wo rk) 08/19/2022 Office Visit Podiatry Tom Titus DPM [place], [place] [address] (Wo rk) 09/08/2022 Office Visit Internal Medicine Janay Hay MD [facility] GENERAL INTERNAL MEDICINE [place], [place] [address] (Wo rk) 10/12/2059 Hospital Encounter Surgery Jim Hanley MD [facility] SPINE CENTER [place], [place] [address] ( rk) Scheduled Procedures Name Priority Associated Diagnoses [...] on filedocumented in this encounter Care Teams Biofuels Plant Superintendent Relationship Specialty Start Date End Date Tom Hay MD PCP - General General Internal Medicine 09/15/18 [facility] [place] [address] documented as of this encounter
--- OUTSIDE RECORDS SUMMARY | 2022-07-12 00:44 | XMS_ITS | Encounter Summary ---
:1965 Author Organization [facility] Address [address] [facility] [address] [place] [address] Care Team Providers Name Role Phone Tom Hay MD Primary Care Provider Encounter Details Date Type Department Care Team Description 03/03/2022 Laboratory Lab at [facility] [facility] Hypothyroidism, unspecified type; Appointment [facility] Uncontrol led type 2 diabetes mellitus with hyperglycemia; Drive Cervical spondylosis with my elopathy; [place], [place] Neck pain; [phone] Pseudoarthrosis of cervical spine, sequela [phone] Social History Tobacco Use Types Packs/Day Years [...] place to sleep or slept in a long term (including now)? Sex Assigned at Date Recorded Not on file documented as of this encounter Plan of Treatment Upcoming Encounters Date Type Specialty Care Team Description 08/06/2022 Office Visit Plastic Surgery Peña Woodward MD [facility] PLASTIC SURGERY [place], [place] [address] (Wo rk) 08/19/2022 Office Visit Podiatry Tom Titus DPM [place], [place] [address] (Wo rk) 09/08/2022 Office Visit Internal Medicine Janay Hay MD [facility] GENERAL INTERNAL MEDICINE [place], [place] [address] (Wo rk) 10/12/2059 Hospital Encounter Surgery Jim Hanley MD [facility] SPINE CENTER [place], [place] [address] (Wo rk) Scheduled Procedures Name [...] Name Priority Date/Time Associated Diagnosis Comme nts HEMOGRAM STAT 03/03/2022 4:25 Uncontrolled type 2 Resul ts for this PM EDT diabetes mellitus procedure are in with hyperglycemia the resul ts section. DIFFERENTIAL, STAT 03/03/2022 4:25 Uncontrolled type 2 Resu lts for this AUTOMATED PM EDT diabetes mellitus procedure are in with hyperglycemia the resul ts section. HC CBC,PLT & AUTO STAT 03/03/2022 4:25 Uncontrolled type 2 DIFF PM EDT diabetes mellitus with hyperglycemia HC VENIPUNCTURE STAT 03/03/2022 4:25 Hypothyroidism, Result s for this PM EDT unspecified type procedure a re in the results section. HC HEMOGLOBIN A1C STAT 03/03/2022 4:25 Uncontrolled type 2 Results for this PM EDT diabetes mellitus procedure are in with hyperglycemia the resul ts section. COMPREHENSIVE STAT 03/03/2022 4:25 Uncontrolled type 2 Resu lts for this METABOLIC PANEL PM EDT diabetes mellitus procedu re are in (NON-FASTING) with hyperglycemia the resu lts section. documented in this encounter Results (ABNORMAL) Differential, Automated (03/03/2022 4:25 PM EDT) Patholo gist Method Time Signature Neutrophils % 65.9 % [facility] Neutr Abs (ANC) 8.18 (H) 1.70 - [facility] 6.10 [facility] x10(3)/[facility] LABORATORY Lymphocytes % 26.2 % [facility] Lymphocytes Abs 3.3 (H) 0.9 - 3.2 [facility] x10(3)/[facility] LABORATORY Monocytes % 5.2 % [facility] Monocyte Abs 0.6 0.3 - 0.9 [facility] x10(3)/[facility] LABORATORY Eosinophils % 1.5 % [facility] Eosinophils Abs 0.2 0.0 - 0.4 [facility] x10(3)/[facility] LABORATORY Basophils % 0.6 % [facility] Basophils Abs 0.1 0.0 - 0.1 [facility] x10(3)/[facility] LABORATORY Immature Gran % 0.60 % [facility] Comment: Immature granulocytes(IG's)percentage an d absolute count will include metamyelocytes, myelocytes, and promyelo cytes. Blood smears from CBCs yielding IG's will be scanned manually for concor dance. If this scan disagrees with the automated IG or if promyelocytes are not ed, a manual differential will be performed. Sunshine Gran Abs 0.08 (H) 0.00 - 0.04 x10(3)/[facility] LABORATORY Specimen Anatomical Collection Method Collection Time Receive d Time (Source) Location / / Volume Laterality Blood 03/03/2022 4:25 PM 4:59 EDT PM EDT Resulting Agency Comment Spec In Lab Tom Hay MD HEMATOLOGY ORDERABLES Performing Organization Address City/State/[place] [address] (ABNORMAL) Hemogram (03/03/2022 4:25 PM EDT) Analysis Performed At Patho logist Time Signature WBC 12.4 (H) 4.0 - 9.5 [facility] x10(3)/[facility] LABORATORY RBC 4.96 4.00 - [facility] 5.21 [facility] x10(6)/[facility] LABORATORY Hemoglobin 15.2 11.7 - [facility] 15.5 g/dL [facility] Hematocrit 44.9 35.7 - [facility] 45.[facility] % [facility] MCV 90.5 82.6 - [facility] 94.4 [facility] LAB[facility]ORY MCH 30.6 27.1 - [facility] 32.0 pg [facility] MCHC 33.9 31.7 - [facility] 35.0 g/dL [facility] Platelets 287 145 - 357 [facility] x10(3)/[facility] LABORATORY RDWSD 40.7 37.0 - [facility] 46.0 [facility]ORY RDWCV 12.4 11.5 - [facility] 14.1 % [facility] MPV 10.8 7.6 - 12.9 [facility] LABORATORY nRBC % Auto 0.0 % [facility] nRBC Abs Auto 0.000 0.000 - [facility] 0.000 [facility] x10(3)/[facility] LABORATORY Specimen Anatomical Collection Method Collection Time Receive d Time (Source) Location / / Volume Laterality Blood 03/03/2022 4:25 PM 4:59 EDT PM EDT Resulting Agency Comment Spec In Lab Tom Hay MD HEMATOLOGY ORDERABLES Performing Organization Address City/State/[place] [address] (ABNORMAL) Hemoglobin A1c (03/03/2022 4:25 PM EDT) [facility] gist Method Time Signature Hemoglobin A1C 11.9 (H) 4.3 - 5.6 [facility] Comment: Reference Range: 4.3 - 5.6% [...] 36: Suppl. 1, S67-74 Est Avg Gluc 296 mg/dL [facility] Comment: eAG equivalents for HbA1c [...] into estimated average glucose values. ??Diabetes Care 2008:31(8):6174-3899. Specimen Anatomical Collection Method Collection Time Receive d Time (Source) Location / / Volume Laterality Blood 03/03/2022 4:25 PM 2 4:59 EDT PM EDT Resulting Agency Comment Spec In Lab Tom Hay MD CHEMISTRY ORDERABLES Performing Organization Address City/State/ZIP Code Phon e Number [facility] [place] [address] (ABNORMAL) Comprehensive metabolic panel (non-fasting) (03/03/2022 4:25 PM EDT) athologist Signature Glucose Lvl 466 (H) 65 - 199 [facility] mg/dL [facility] Comment: Diabetes: >=200 mg/dL plus symp toms BUN 10 8 - 18 mg/dL [facility] Creatinine 0.67 (L) 0.70 - 1.20 mg/dL [facility] Sodium 135 135 - 145 mmol/L [facility] Potassium 4.2 3.5 - 5.0 mmol/L [facility] Comment: Please note: ??Patients with WBC >100,00 0 may have falsely elevated Potassium levels. ??For accurate Potassium quantif ication in these patients send serum separator tube (gold top) for subsequent determinations. ??Contact the Clinical Chemistry Laboratory if there are any qu estions. Chloride 99 98 - 107 mmol/L [facility] CO2 21 (L) 22 - 31 mmol/L [facility] Anion Gap 15 5 - 15 mmol/L [facility] Calcium 9.3 8.5 - 10.5 mg/dL [facility] Total Protein 6.6 6.1 - 8.0 g/dL [facility] Albumin 4.1 3.2 - 5.2 g/dL [facility] AST 14 0 - 30 unit/L [facility] ALT 17 0 - 30 unit/L [facility] Alk Phos 89 35 - 105 unit/L [facility] Total Bilirubin 0.2 0.2 - 1.3 mg/dL [facility] Estimated GFR 100 >=60 mL/min/1.73 m?? [facility] Comment: This patient? s estimated glomerular filtration rate (eGFR) is between 100 mL/min/1.73 m2 (patients with less muscl e mass) and 115 mL/min/1.73 m2 (patients with more muscle mass) as dete rmined by the CKD-EPI equation. Assessment of eGFR is not appropriate wh en creatinine concentrations are rapidly changing. For clinical decisions where creatinine clearance will affect therapy, a 24-hour urine creatinine devika johnson may be advised. Assignment of CKD stage 1 - 5 for patien ts with an eGFR near the transition point between stages may be based on cli nical assessment of muscle mass and symptoms in addition to eGFR. Specimen Anatomical Collection Method Collection Time Receive d Time (Source) Location / / Volume Laterality Blood 03/03/2022 4:25 PM 2 4:59 EDT PM EDT Resulting Agency Comment Spec In Lab Tom Hay MD CHEMISTRY ORDERABLES Performing Organization Address City/[facility]/[place] [address] TSH (03/03/2022 4:25 PM EDT) P athologist Signature TSH 1.40 0.27 - 4.20 [facility] mcIU/mL [facility] Comment: Reference Interval (mcIU/mL): Females: ??First Trimester: 0.23-3.88 ??Second Trimester: 0.22-3.90 ??Third Trimester: 0.44-4.66 Specimen Anatomical Collection Method Collection Time Receive d Time (Source) Location / / Volume Laterality Blood 03/03/2022 4:25 PM 2 4:59 EDT PM EDT Resulting Agency Comment Spec In Lab Tom Hay MD CHEMISTRY ORDERABLES Performing Organization Address City/[facility] [place] [address] documented in this encounter Visit Diagnoses Diagnosis Myeloradiculopathy Unspecified nerve root and plexus disord er Hypothyroidism, unspecified type Uncontrolled type 2 diabetes mellitus wi th hyperglycemia Cervical spondylosis with myelopathy Neck pain Cervicalgia Pseudoarthrosis of cervical spine, [place] documented in this encounter Care Teams Tunnel Kiln Repairer Relationship Specialty Start Date End Date Tom Hay MD PCP - General General Internal Medicine 09/15/18 [facility] GENERAL [place] [address] documented as of this encounter
--- OUTSIDE RECORDS SUMMARY | 2022-07-12 00:44 | XMS_ITS | Encounter Summary ---
:1965 Author Organization [facility] [place] [address] Care Team Providers Name Role Phone Tom Hay MD Primary Care Provider Reason for Visit Reason Comments Dental Pain Auth/Cert Specialty Diagnoses / Procedures Referred By Contact Refer red To Contact Diagnoses Necrotizing gingivitis Referral ID Status Reason Start Date Expiration Date Visits Requ ested Visits Authorized [id number] 1 1 Encounter Details Date Type Department Care Team Description 02/15/2022 Emergency Emergency Department Elva Santana MD [facility] DR EMERGENCY MEDICINE [place] [phone] Necrotizing gingivitis Thomas Monroy MD [facility] [place] [address] (Primary Dx) [place] [id number] Social History Tobacco Use Types Packs/Day [...] place to sleep or slept in a snf (including now)? Sex Assigned at Date Recorded Not on file documented as of this encounter Last Filed Vital Signs Vital Sign Reading Time Taken Comments Blood Pressure 112/87 02/15/2022 7:30 AM EDT Pulse 83 02/15/2022 9:00 AM EDT Temperature 37 ??C (98.6 ??F) 02/15/2022 10:39 AM EDT Respiratory Rate 15 02/15/2022 9:00 AM EDT Oxygen Saturation 92% 02/15/2022 9:00 AM EDT Inhaled Oxygen Concentration - - Weight - - Height - - Body Mass Index - - documented in this encounter Discharge Instructions Discharge InstructionsJulio C Lagos PA - 02/15/2022 10:09 AM EDT You were seen today for dental pain. Please do the following to help your symptoms improve: 1.Take ibuprofen and tylenol alternating every 4 hours as needed for pain. 2.Take augmentin as prescribed. 3.Follow-up with your primary care provider for recheck within the next week. 4. Follow-up with a dentist as soon as possible. 5. Return to the emergency department for any worsening or changing symptoms such as Fever >101F,Severe swelling, difficulty swallowing, difficulty breathing, worsening neck pain, muffled voice, orinability to swallow your saliva. AttachmentsThe following attachments cannot be sent through Care Everywhere. Tooth and Gum Pain ([place])documented in this encounter Medications at Time of Discharge Medication Sig Dispensed Refills Start Date End Date nystatin (Mycostatin) SAS 5 ML PO QID PRF 473 mL 3 05/03 100,000 unit/mL THRUSH Suspension meclizine (Antivert) 25 Take 1 tablet by 90 tablet 3 2020 mg TabletIndications: mouth 3 times daily Vertigo as needed. metoclopramide (REGLAN) 5 Take 1 tablet by 80 tablet 0 02/2021 mg TabletIndications: mouth 4 times daily. Refractory nausea and vomiting methocarbamoL (ROBAXIN) Take 1 tablet by 30 tablet 0 2020 750 mg TabletIndications: mouth 3 times daily Cervical radicular pain as needed. blood sugar diagnostic Use as instructed to 300 each 3 strips StripIndications: check BG 4 times Controlled type 2 daily. 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 SuspensionIndications: Indications: allergic rhinitis Allergic Rhinitis amoxicillin-clavulanate Take 1 tablet by 20 tablet 0 2021 (Augmentin) 875-125 mg mouth 2 times daily 2 Tablet for 10 days. traMADoL (Ultram) 50 mg Take 1 tablet by 28 tablet 0 2021 TabletIndications: H/O mouth every 8 hours 2 cervical spinal as needed for Pain arthrodesis, for up to 28 doses. Pseudoarthrosis of lumbar spine, Cervical spondylosis with myelopathy ergocalciferoL, vitamin Take 1 capsule by 4 capsule 12 08/06 D2, (vitamin D2) 50,000 mouth once a week. 2 unit CapsuleIndications: Low vitamin D level sucralfate (Carafate) 100 Take 10 mLs by mouth 420 mL 0 07/30/2021 mg/mL 4 times daily. 2 SuspensionIndications: Upper abdominal pain albuteroL (ProAir HFA) 90 Inhale 2 puffs into 3 Inhaler 3 0 04/23/2021 mcg/actuation HFA Aerosol the lungs every 4 2 InhalerIndications: hours as needed for Chronic obstructive Wheezing. Use with pulmonary disease with spacer acute exacerbation ondansetron ODT (Zofran Take 1-2 tablets by 12 tablet 1 ODT) 4 mg Tablet, Rapid mouth every 8 hours 2 Dissolve as needed for Nausea. Clobetasol-Emollient 0.05 Apply twice daily to 200 g 0 02/05/2021 % FoamIndications: worse scalp 2 Psoriasis psoriasis on weekends-only as needed dispense 3 bottles please betamethasone-calcipotrie Apply twice daily 120 g 3 ne (TACLONEX SCALP) for 5 days out of 2 0.005-0.064 % the week SuspensionIndications: Scalp psoriasis pregabalin (Lyrica) 75 mg Take 1 capsule by 60 tablet 3 Capsule mouth 2 times daily. 2 mupirocin (BACTROBAN) 2 % Apply topically 3 15 g 1 Cream times daily. Ok to 2 sub ointment if cream not covered fluorouraciL (EFUDEX) 5 % Apply thin layer to 40 g 0 0 12/19/2020 CreamIndications: Plantar affected site as 2 wart, Right foot pain directed once daily. valACYclovir (VALTREX) 1 Take 1 tablet by 30 tablet 3 10/26 gram TabletIndications: mouth 2 times daily. 2 Oral lesion vqfvbuyhkik-uonanybdr-ubo Inhale 1 Inhalation 60 each 3 0 10/26/2020 anter (Trelegy Ellipta) into the lungs 2 100-62.5-25 mcg Disk with daily. Device Crystal Pen Needle 32 gauge Inject 1 each 400 each 3 10/26/19 21 x 5/32 Needle subcutaneously 4 2 times daily. pen needle, diabetic 1 each by 100 each 5 10/26/202002/09 (NovoTwist) 32 gauge x Misc.(Non-Drug; 2 1/5 Needle Combo Route) route 4 times daily as needed. Novotwist needle ICD E11.[address] (Cymbalta) Take 1 capsule by 90 capsule 3 10/12 60 mg Capsule, Delayed mouth daily. 2 Release(E.C.) glipiZIDE (Glucotrol) 5 Take 1 tablet by 60 tablet 11 2020 mg Tablet mouth daily. 2 esomeprazole (NexIUM) 40 Take 1 capsule by 180 capsule 3 mg Capsule, Delayed mouth 2 times daily. 2 Release(E.C.) semaglutide 1 mg/dose (2 Inject 1 mg 12 Syringe 3 10/26/2020 mg/1.5 mL) Pen Injector subcutaneously once 2 a week. amLODIPine (Norvasc) 10 Take 1 tablet by 90 tablet 3 2020 mg Tablet mouth daily. 2 atorvastatin (Lipitor) 20 Take 1 tablet by 90 tablet 3 10/12 mg Tablet mouth daily. 2 BD Alcohol Swabs Pads, 1 each 4 times 100 each 1 Medicated daily. 2 levothyroxine (Synthroid) Take 2 tablets by 180 tablet 3 150 mcg Tablet mouth daily. Take in 2 addition to the 25mcg to equal 325mcg levothyroxine (Synthroid) Take 1 tablet by 90 tablet 10/12 25 mcg Tablet mouth daily. 2 blood-glucose meter 1 each by 1 each 0 10/26/202002/26 (FREESTYLE) Kit [facility] [place]rug; 2 Combo Route) route as needed for Other. hydroCHLOROthiazide Take 1 tablet by 90 tablet 3 10/26/2020 (Hydrodiuril) 50 mg mouth daily. 2 TabletIndications: Essential hypertension varenicline (Chantix) 1 Take 1 tablet by 30 tablet 5 2020 mg Tablet mouth daily. 2 vitamin with Take 1 tablet by 0 iutgpymi-Nk-Mofv-FA mouth daily. 2 Tablet metroNIDAZOLE Apply topically 2 45 g 5 10/29/201802/09 (METROCREAM) 0.75 % Cream times daily. 2 ALPRAZolam (XANAX) 1 mg Take 1 mg by mouth 3 0 tablet times daily as 2 needed. ARIPiprazole (Abilify) 30 Take 30 mg by mouth 0 mg Tablet daily. 2 documented as of this encounter ED Notes Maynor Majano RN - 02/15/2022 10:37 AM EDT Dc instructions and abt reviewed pt dneiarturo fairnerns Julio C Lagos PA - 02/15/2022 7:14 AM EDT Patient Name: Joseline Rose Patient Age: 56 y.o. Birthdate: 1965 Admit date: 02/15/2022 Attending Physician: No att. providers found CLINICAL DECISION UNIT - DISCHARGE SUMMARY Patient Name: Joseline Rose Patient Age: 56 y.o. Birthdate: 1965 Admit date: 02/15/2022 Discharge date and time: 02/15/2022 Attending Physician: No att. providers found Discharge Diagnoses: Dental pain and infection Necrotizing gingivitis History of Presentation (from ED Note): Joseline Rose is a 56 y.o. female with COPD, diabetes hypertension who presents to the Emergency Department dental pain. Patient states that she has had a black spot on her left upper back molar for approximately one year now. She has been trying to get a dentist to have it pulled but has been unable to. She was recently hospitalized for pneumonia and discharged on PO Doxy. Over the last severaldays she has had increasing pain swelling and erosion of the roof of her mouth. She states that she thinks she has had fevers but is unsure if this is due to the pneumonia or her tooth. She has been taking doxycycline for approximately five days now with pneumonia. She denies new neck stiffness, vision changes, confusion, chest pain, worsening shortness of breath, abdominal pain, rash. Exam at Time of Discharge: BP 133/81 Pulse 79 Temp 36.7 ??C (98.1 ??F) (Oral) Resp 14 SpO2 97% Physical Exam Vitals and nursing note reviewed. Constitutional: General: She is not in acute distress. Appearance: She is well-developed. She is not diaphoretic. HENT: Head: Normocephalic and atraumatic. Nose: Nose normal. Mouth/Throat: Mouth: Mucous membranes are moist. Pharynx: Oropharynx is clear. No oropharyngeal exudate. Comments: L upper jaw ecchymosis and swelling surrounding the L upper teeth and hard palate Eyes: General: Right eye: No discharge. Left eye: No discharge. Extraocular Movements: Extraocular movements intact. Conjunctiva/sclera: Conjunctivae normal. Pupils: Pupils are equal, round, and reactive to light. Cardiovascular: Rate and Rhythm: Normal rate and regular rhythm. Pulses: Normal pulses. Heart sounds: Normal heart sounds. No murmur heard. Pulmonary: Effort: Pulmonary effort is normal. No respiratory distress. Breath sounds: Normal breath sounds. No wheezing or rales. Skin: General: Skin is warm and dry. Findings: No rash. Neurological: Mental Status: She is alert and oriented to person, place, and time. Emergency Department/Clinical Decision Unit Course: H&P Serial Exams Labs reviewed CT Face IV Abx Patient showed no progression of symptoms. CT shows no deep space infection. Discharged home on Augmentin. Working on dental follow-up. Summary of Important Studies and Lab Data: Recent Results (from the past 72 hour(s)) Basic Metabolic Panel (non-fasting) Result Value Ref Range Glucose Lvl 746 (CRIT) 65 - 199 mg/dL BUN 12 8 - 18 mg/dL Creatinine 0.86 0.70 - 1.20 mg/dL Sodium 131 (L) 135 - 145 mmol/L Potassium 4.5 3.5 - 5.0 mmol/L Chloride 93 (L) 98 - 107 mmol/L CO2 23 22 - 31 mmol/L Anion Gap 15 5 - 15 mmol/L Calcium 9.1 8.5 - 10.5 mg/dL Estimated GFR 77 >=60 mL/min/1.73 m?? Hemogram Result Value Ref Range WBC 13.4 (H) 4.0 - 9.5 x10(3)/mcL RBC 4.47 4.00 - 5.21 x10(6)/mcL Hemoglobin 13.6 11.7 - 15.5 g/dL Hematocrit 41.1 35.7 - 45.8 % MCV 91.9 82.6 - 94.4 fL MCH 30.4 27.1 - 32.0 pg MCHC 33.1 31.7 - 35.0 g/dL Platelets 306 145 - 357 x10(3)/mcL RDWSD 43.2 37.0 - 46.0 fL RDWCV 12.7 11.5 - 14.1 % MPV 10.3 7.6 - 12.9 fL nRBC % Auto 0.0 % nRBC Abs Auto 0.000 0.000 - 0.000 x10(3)/mcL Differential, Automated Result Value Ref Range Neutrophils % 76.8 % Neutr Abs (ANC) 10.32 (H) 1.70 - 6.10 x10(3)/mcL Lymphocytes % 16.6 % Lymphocytes Abs 2.2 0.9 - 3.2 x10(3)/mcL Monocytes % 5.5 % Monocyte Abs 0.7 0.3 - 0.9 x10(3)/mcL Eosinophils % 0.0 % Eosinophils Abs 0.0 0.0 - 0.4 x10(3)/mcL Basophils % 0.4 % Basophils Abs 0.0 0.0 - 0.1 x10(3)/mcL Immature Gran % 0.70 % Sunshine Gran Abs 0.09 (H) 0.00 - 0.04 x10(3)/mcL Urinalysis with reflex Culture Specimen: Clean Catch Urine Result Value Ref Range Glucose UA >=1000 (CRIT) Negative mg/dL Protein UA Negative Negative mg/dL Bilirubin UA Negative Negative mg/dL Urobilinogen UA Normal Normal mg/dL pH UA 6.0 5.0 - 8.0 Blood UA Negative Negative mg/dL Ketones UA Negative Negative mg/dL Nitrite UA Negative Negative Leukocytes UA Negative Negative mcL Appearance UA Clear Clear Spec [place] UA >=1.030 (A) 1.005 - 1.030 Color UA Yellow Yellow Culture Reflexed No Beta Hydroxybutyrate Result Value Ref Range BOHB 0.14 0.00 - 0.30 mmol/L BLOOD GAS 2 VENOUS Result Value Ref Range pH Wali 7.33 7.32 - 7.42 pCO2 Wali 50 41 - 51 mmHg pO2 Wali 36 25 - 40 mmHg HCO3 Wali 25.3 mmol/L BE Wali -0.7 mmol/L Hgb Blood Gas 13.0 11.7 - 15.5 g/dL O2HB Wali 65.8 % COHB Wali 5.5 % METHB Wali 0.4 <=1.5 % Na Whole Blood 131 (L) 135 - 145 mmol/L K Whole Blood 4.2 3.5 - 5.0 mmol/L ICa Whole Blood 1.21 1.15 - 1.33 mmol/L CL Whole Blood 94 (L) 98 - 107 mmol/L Gluc Whole Bld 698 (CRIT) 65 - 199 mg/dL Lactate WB 3.4 (H) 0.5 - 2.2 mmol/L BGas Source Venous POCT Glucose Result Value Ref Range POC Glucose 598 (CRIT) 65 - 199 mg/dL COVID-19 PCR Specimen: Nasopharyngeal Swab Symptoms->Surveillance Result Value Ref Range SARS-CoV-2 RNA PCR Not Detected Not Detected SARS-CoV-2 Source DEBATE DIRECTOR Swab Glucose, random Result Value Ref Range Glucose Lvl 431 (H) 65 - 199 mg/dL POCT Glucose Result Value Ref Range POC Glucose 276 (H) 65 - 199 mg/dL CT Face w Contrast Final Result Dental caries tooth #15. Small root fragment tooth #14. No radiographic manifestation of the mucosal lesions identified along the palate and comments. No evidence of dental abscess seen. Thank you for letting us participate in the care of this patient. If you are a health care provider and have any questions regarding this report, please contact the number below. For patients who have questions please contact the health child care worker that requested your imaging first. Pending Studies and Lab Data: none Discharge Condition: good Discharge to: home Discharge Medications: Your Medications UNREVIEWED medications - Discuss With Your Provider Dose Details albuteroL 90 mcg/actuation Hfaa Commonly known as: ProAir HFA Inhale 2 puffs into the lungs every 4 hours as needed for Wheezing. Use with spacer 2 puff Quantity: 3 Inhaler Refills: 3 ALPRAZolam 1 mg Tab Commonly known as: Xanax Take 1 mg by mouth 3 times daily as needed. 1 mg Refills: 0 amLODIPine 10 mg Tab Commonly known as: Norvasc Take 1 tablet by mouth daily. 10 mg Quantity: 90 tablet Refills: 3 ARIPiprazole 30 mg Tab Commonly known as: Abilify Take 30 mg by mouth daily. 30 mg Refills: 0 atorvastatin 20 mg Tab Commonly known as: Lipitor Take 1 tablet by mouth daily. 20 mg Quantity: 90 tablet Refills: 3 BD Alcohol Swabs Padm 1 each 4 times daily. Generic drug: Alcohol Swabs 1 each Quantity: 100 each Refills: 3 betamethasone-calcipotriene 0.005-0.064 % Susp Commonly known as: TACLONEX SCALP Apply twice daily for 5 days out of the week Quantity: 120 g Refills: 3 blood sugar diagnostic strips Strp Use as instructed to check BG 4 times daily. (Freestyle Lite)DX code E11.9 IDD Quantity: 300 each Refills: 3 blood-glucose meter Kit Commonly known as: FREESTYLE 1 each [place] [facility] [place]Non[place]Drug; Combo Route) route as needed for Other. 1 each Quantity: 1 each Refills: 0 Calcipotriene 0.005 % Soln as needed. Refills: 0 Clobetasol-Emollient 0.05 % Foam Commonly known as: Olux-E Apply twice daily to worse scalp psoriasis on weekends-only as needed dispense 3 bottles please Quantity: 200 g Refills: 0 clotrimazole 10 mg Troc Commonly known as: Mycelex DIS 1 MOLLY PO TID Quantity: 30 tablet Refills: 3 cycloSPORINE 0.05 % Dpet Commonly known as: Restasis Place 1 drop into both eyes every 12 hours. 1 drop Quantity: 180 vial Refills: [address] 60 mg Cpdr Commonly known as: Cymbalta Take 1 capsule by mouth daily. 60 mg Quantity: 90 capsule Refills: 3 ergocalciferoL (vitamin D2) 50,000 unit Cap Commonly known as: vitamin D2 Take 1 capsule by mouth once a week. 50,000 Units Quantity: 4 capsule Refills: 12 esomeprazole 40 mg Cpdr Commonly known as: NexIUM Take 1 capsule by mouth 2 times daily. 40 mg Quantity: 180 capsule Refills: 3 estradioL 0.01 % (0.1 mg/gram) Crea Commonly known as: ESTRACE Place vaginally as needed. Refills: 4 fluorouraciL 5 % Crea Commonly known as: EFUDEX Apply thin layer to affected site as directed once daily. Quantity: 40 g Refills: 0 fluticasone 27.5 mcg/actuation Spsn Commonly known as: VERAMYST 2 sprays by Nasal route daily. Indications: Allergic Rhinitis 2 spray Refills: 0 glipiZIDE 5 mg Tab Commonly known as: Glucotrol Take 1 tablet by mouth daily. 5 mg Quantity: 60 tablet Refills: 11 hydroCHLOROthiazide 50 mg Tab Commonly known as: Hydrodiuril Take 1 tablet by mouth daily. 50 mg Quantity: 90 tablet Refills: 3 ipratropium-albuteroL 0.5 mg-3 mg(2.5 mg base)/3 mL Nebu Commonly known as: Duoneb Take 0.5 mg by nebulization 4 times daily. 3 mL Quantity: 1 Box Refills: 4 lancets 28 gauge Misc Commonly known as: FreeStyle Lancets Dx E11.9 IDD please test 4x/day with lancets Indications: diabetes mellitus Quantity: 125 each Refills: 11 * levothyroxine 150 mcg Tab Commonly known as: Synthroid Take 2 tablets by mouth daily. Take in addition to the 25mcg to equal 325mcg 300 mcg Quantity: 180 tablet Refills: 3 * levothyroxine 25 mcg Tab Commonly known as: Synthroid Take 1 tablet by mouth daily. 25 mcg Quantity: 90 tablet Refills: 3 meclizine 25 mg Tab Commonly known as: Antivert Take 1 tablet by mouth 3 times daily as needed. 25 mg Quantity: 90 tablet Refills: 3 methocarbamoL 750 mg Tab Commonly known as: ROBAXIN Take 1 tablet by mouth 3 times daily as needed. 750 mg Quantity: 30 tablet Refills: 0 metoclopramide 5 mg Tab Commonly known as: REGLAN Take 1 tablet by mouth 4 times daily. 5 mg Quantity: 80 tablet Refills: 0 metroNIDAZOLE 0.75 % Crea Commonly known as: METROCREAM Apply topically 2 times daily. Quantity: 45 g Refills: 5 mupirocin 2 % Crea Commonly known as: Bactroban Apply topically 3 times daily. Ok to sub ointment if cream not covered Quantity: 15 g Refills: 1 * Crystal Pen Needle 32 gauge x 5/32 Ndle Inject 1 each subcutaneously 4 times daily. Generic drug: insulin needles (disposable) 1 each Quantity: 400 each Refills: 3 * NovoTwist 32 gauge x 1/5 Ndle 1 each [place] [facility] [place]rug; Combo Route) route 4 times daily as needed. Novotwist needle ICD E11.9 NIDD Generic drug: pen needle, diabetic 1 each Quantity: 100 each Refills: 5 naratriptan 2.5 mg Tab Commonly known as: Amerge Take 1 tablet by mouth as needed for Migraine. if returns or does not resolve, may repeat once after4 hours 2.5 mg Quantity: 10 tablet Refills: 3 nystatin 100,000 unit/mL Susp Commonly known as: Mycostatin SAS 5 ML PO QID PRF THRUSH Quantity: 473 mL Refills: 3 ondansetron 4 mg Tab Commonly known as: Zofran Take 1 tablet by mouth every 8 hours as needed for Nausea. 4 mg Quantity: 20 tablet Refills: 3 ondansetron ODT 4 mg Tbdl Commonly known as: Zofran ODT Take 1-2 tablets by mouth every 8 hours as needed for Nausea. 4-8 mg Quantity: 12 tablet Refills: 1 pregabalin 75 mg Cap Commonly known as: Lyrica Take 1 capsule by mouth 2 times daily. 75 mg Quantity: 60 tablet Refills: 3 vitamin with azuvgsxk-Ws-Miws-FA Tab Take 1 tablet by mouth daily. 1 tablet Refills: 0 semaglutide 1 mg/dose (2 mg/1.5 mL) Pnij Commonly known as: Ozempic Inject 1 mg subcutaneously once a week. 1 mg Quantity: 12 Syringe Refills: 3 sucralfate 100 mg/mL Susp Commonly known as: Carafate Take 10 mLs by mouth 4 times daily. 1 g Quantity: 420 mL Refills: 0 traMADoL 50 mg Tab Commonly known as: Ultram Take 1 tablet by mouth every 8 hours as needed for Pain for up to 28 doses. 50 mg Quantity: 28 tablet Refills: 0 Trelegy Ellipta Inhale 1 Inhalation into the lungs daily. Generic drug: uashevtfqam-pgpsdimslhtm-nmhgaazoyk 1 Inhalation Quantity: 60 each Refills: 3 valACYclovir 1 gram Tab Commonly known as: VALTREX Take 1 tablet by mouth 2 times daily. 1,000 mg Quantity: 30 tablet Refills: 3 varenicline 1 mg Tab Commonly known as: Chantix Take 1 tablet by mouth daily. 1 mg Quantity: 30 tablet Refills: 5 * Vitamin D 1,000 unit Tab Take 2 tablets by mouth daily. Generic drug: cholecalciferol 2,000 Units Quantity: 90 tablet Refills: 0 * cholecalciferol (Vitamin D3) 1,250 mcg (50,000 unit) Cap Take 1 capsule by mouth once a week. 1 capsule Quantity: 52 capsule Refills: 0 * This list has 6 medication(s) that are the same as other medications prescribed for you. Read thedirections carefully, and ask your doctor or other care provider to review them with you. Updated Allergies/ADRs: Allergies Allergen Reactions ??? Latex Rash ??? Metformin Nausea And Vomiting ??? Clonazepam Nausea And Vomiting Nauseous, itchy ??? Clonidine (Pf) Other (See Comments) olea johnsons syndrome ??? Codeine Itching and Nausea Only ??? Hydrocodone-Acetaminophen Itching rash ??? Methadone Nausea And Vomiting Had trouble walking and talking after taking for a few days General Instructions None I have asked Dr Quezada to see this patient today. For questions regarding this document or issues relating to this admission, please contact the Clinical Decision Unit through the [facility] Aesthetics Instructor . Julio C Lagos PA 02/15/22 1548 Vikki Tirado RN - 02/15/2022 5:59 AM EDT MD Santana made aware that glucose reading HI on POCT. Awaiting further orders. Emeli Tirado RN Brad Ryan MD - 02/15/2022 3:24 AM EDT ED Resident Follow-up Note: Time of transfer of care: 2AM Care transferred from: Dr. Wagner Condition at time of transfer: stable Clinical Summary: 56 y.o. old female in the process of being evaluated for dental pain. Please see Dr. Wagner's notes for their initial evaluation, assessment and plan. Briefly, from the original HPI Joseline Rose is a 56 y.o. female with COPD, diabetes hypertension [facility]. Patient states that she has had a black spot on her left upper back molar forapproximately one year now. She has been trying to get a dentist to have it pulled but has been unable to. She was recently hospitalized for pneumonia and discharged on PO Doxy. Over the last several days she has had increasing pain swelling and erosion of the roof of her mouth. She states that she thinks she has had fevers but is unsure if this is due to the pneumonia or her tooth. She has been taking doxycycline for approximately five days now with pneumonia. She denies new neck stiffness, vision changes, confusion, chest pain, worsening shortness of breath, abdominal pain, rash. Patient is protecting her airway does not have any trismus or signs of extension into the posteriorpharynx that could compromise her airway at this time. She is slightly tachycardic but her blood pressure stable she does not appear septic at this time. Given that she is diabetic with likely necrotic gingivitis will start IV antibiotics and obtained CT imaging of the facial bones. Patient has some wheezing on lung exam which is likely due to her COPD. She has been receiving adequate treatment for community acquired pneumonia with doxycycline and has been taking it regularly. She does not have a new oxygen requirement. Patient was signed out to the night resident pending CT face with plan to admitfor IV antibiotics and ENT consult if CT shows surgical process. Subsequent ED Course: Labs are notable for leukocytosis of 13.4, and a hyperglycemia 746. The patient's urine did not demonstrate any evidence of ketones and VBG showed pH of 7.32 as well as a lactate of 3.4. The patient is currently on steroids for her COPD exacerbation and she takes glyburide for byron betes but no other insulin at this time. The patient was started on fluid resuscitation for her hyperglycemia. CT imaging did not show any evidence of deep space abscess though did show evidence for several caries. The patient's presentation is concerning for necrotizing ulcerative gingivitis. The patient was admitted to the CDU for continued IV antibiotics and close monitoring of her hyperglycemia. Patient is currently not on any insulin and does not have any primary care follow-up. Patient need to be set up with dental follow-up if not oral maxillofacial surgeon follow-up. Final Assessment: Necrotizing ulcerative gingivitis. Final Plan: IV antibiotics - Monitoring of glucose - Follow up with OMFS Condition at Discharge: stable Brad Ryan MD Resident 02/15/22 0635 Associated attestation - Salina Santana MD - 02/16/2022 3:04 AM EDT ED ATTENDING ATTESTATION NOTE The patient was seen in conjunction with the resident physician. I have independently performed the acosta portions of the history and physical exam. I have reviewed the nursing notes, vital signs, and all diagnostic studies personally including labs, imaging studies and EKGs. I have discussed the details of the case with the resident and agree with the assessment and plan as described in the resident note above unless noted otherwise below. Vikki Tirado RN - 02/15/2022 2:53 AM EDT Pt to CT via stretcher in stable condition. Emeli Tirado RN Julio C Wagner MD - 02/15/2022 1:25 AM EDT ED Resident Note HPI: Joseline Rose is a 56 y.o. female with COPD, diabetes hypertension who presents to the Emergency Department dental pain. Patient states that she has had a black spot on her left upper back molar for approximately one year now. She has been trying to get a dentist to have it pulled but has been unable to. She was recently hospitalized for pneumonia and discharged on PO Doxy. Over the last severaldays she has had increasing pain swelling and erosion of the roof of her mouth. She states that she thinks she has had fevers but is unsure if this is due to the pneumonia or her tooth. She has been taking doxycycline for approximately five days now with pneumonia. She denies new neck stiffness, vision changes, confusion, chest pain, worsening shortness of breath, abdominal pain, rash. Pt was seen under the supervision of an attending physician. Review of Systems Pertinent positives and negatives are included in the HPI, otherwise at least ten systems were reviewed and negative. Past Medical and Surgical Histories, Social History, Medications, Allergies were reviewed in the chart. Vitals: ED Triage Vitals [02/15/22 0111] BP: 123/74 Heart Rate: (!) 104 Resp: 18 Temp: 36.7 ??C (98.1 ??F) Temp src: Oral SpO2: 97 % O2 Device: RA O2 Flow Rate (L/min): n/a Physical Exam Constitutional: Appearance: Normal appearance. She is not ill-appearing. HENT: Head: Normocephalic and atraumatic. Mouth/Throat: Comments: There is a carry of the second molar. There is extensive erythema with apparent black necrosis spreading to the central pallet with some involvement of the posterior parents. Tonsils are symmetric as is the uvula. Cardiovascular: Rate and Rhythm: Regular rhythm. Tachycardia present. Pulses: Normal pulses. Heart sounds: Normal heart sounds. No murmur heard. Pulmonary: Effort: Pulmonary effort is normal. Breath sounds: Normal breath sounds. No wheezing. Abdominal: General: Abdomen is flat. Palpations: Abdomen is soft. Tenderness: There is no abdominal tenderness. Musculoskeletal: Cervical back: Normal range of motion and neck supple. No rigidity. Skin: General: Skin is warm and dry. Capillary Refill: Capillary refill takes less than 2 seconds. Neurological: Mental Status: She is alert. ED Course: I have reviewed labs and imaging, images and available reports, and they are significant for: CBC: pending BMP: pending CT Face w Contrast (Results Pending) Procedures Assessment and Plan: 56 y.o. female with with dental abscess and spread to the soft tissue of the roof of the mouth with likely soft tissue necrosis and possible bone involvement. Patient is protecting her airway does not have any trismus or signs of extension into the posterior pharynx that could compromise her airway atthis time. She is slightly tachycardic but her blood pressure stable she does not appear septic at this time. Given that she is diabetic with likely necrotic gingivitis will start IV antibiotics and obtained CT imaging of the facial bones. Patient has some wheezing on lung exam which is likely due to her COPD. She has been receiving adequate treatment for community acquired pneumonia with doxycyclineand has been taking it regularly. She does not have a new oxygen requirement. Patient was signed outto the night resident pending CT face with plan to admit for IV antibiotics and ENT consult if CT shows surgical process. Julio C Wagner MD Resident 02/15/22 0200 Associated attestation - Salina Santana MD - 02/16/2022 3:03 AM EDT ED ATTENDING ATTESTATION NOTE The patient was seen in conjunction with the resident physician. I have independently performed the acosta portions of the history and physical exam. I have reviewed the nursing notes, vital signs, and all diagnostic studies personally including labs, imaging studies and EKGs. I have discussed the details of the case with the resident and agree with the assessment and plan as described in the resident note above unless noted otherwise below. documented in this encounter Plan of Treatment Upcoming Encounters Date Type Specialty Care Team Description 08/06/2022 Office Visit Plastic Surgery Peña Woodward MD [facility] PLASTIC SURGERY [place] [id number] ( rk) 08/19/2022 Office Visit Podiatry Tom Titus DPM [place], [place] [address] (Wo rk) 09/08/2022 Office Visit Internal Medicine Janay Hay MD [facility] GENERAL INTERNAL MEDICINE [place], [place] [address] (Wo rk) 10/12/2059 Hospital Encounter Surgery Jim Hanley MD [facility] SPINE [facility] [place], [place] [address] (Wo rk) Scheduled Procedures Name [...] Procedure Name Priority Date/Time Associated Comments Diagnosis POCT GLUCOSE Routine 02/15/2022 9:49 AM Results f or this EDT procedure are i n the results section. HC GLUCOSE, RANDOM STAT 02/15/2022 6:08 AM Res ults for this EDT procedure are i n the results section. POCT GLUCOSE Routine 02/15/2022 5:56 AM Results f or this EDT procedure are i n the results section. RAPID COVID-19 PCR STAT 02/15/2022 4:34 AM Res ults for this ([facility]) EDT procedure are in the results section. POCT GLUCOSE Routine 02/15/2022 4:17 AM Results f or this EDT procedure are i n the results section. BLOOD GAS 2 VENOUS Routine 02/15/2022 3:17 AM Res ults for this EDT procedure are i n the results section. CT FACIAL BONES W STAT 02/15/2022 3:13 AM Resu lts for this CONTRAST EDT procedure are i n the results section. HC STAT 02/15/2022 2:49 AM Results f or this BETA-HYDROXYBUTYRIC EDT procedur e are in ACID the results section. URINALYSIS WITH STAT 02/15/2022 2:45 AM Result s for this REFLEX CULTURE EDT procedure are in the results section. HEMOGRAM STAT 02/15/2022 2:04 AM Results f or this EDT procedure are i n the results section. DIFFERENTIAL, STAT 02/15/2022 2:04 AM Results for this AUTOMATED EDT procedure are i n the results section. HC CBC,PLT & AUTO STAT 02/15/2022 2:04 AM DIFF EDT BASIC METABOLIC STAT 02/15/2022 2:04 AM Result s for this PANEL (NON-FASTING) EDT procedur e are in the results section. documented in this encounter Results (ABNORMAL) POCT Glucose (02/15/2022 9:49 AM EDT) athologist Signature POC Glucose 276 (H) 65 - 199 [facility] mg/dL [facility] Comment: Supplemental ranges: <140 mg/dL before meals <180 mg/dL all other times of the day Specimen Anatomical Collection Method Collection Time Receive d Time (Source) Location / / Volume Laterality Blood 02/15/2022 9:49 AM 2 9:49 EDT AM EDT Thomas Quezada MD POINT OF CARE TEST ORDERABLE S Performing Organization Address City/State/Z[place] [address] (ABNORMAL) Glucose, random (02/15/2022 6:08 AM EDT) athologist Signature Glucose Lvl 431 (H) 65 - 199 [facility] mg/dL [facility] Comment: Diabetes: >=200 mg/dL plus symp toms Specimen Anatomical Collection Method Collection Time Receive d Time (Source) Location / / Volume Laterality Blood 02/15/2022 6:08 AM 2 6:22 EDT AM EDT Resulting Agency Comment Spec In Lab Salina Santana MD CHEMISTRY ORDERABLES Performing Organization Address City/State/ZIP Code Phon e Number [address] (ABNORMAL) POCT Glucose (02/15/2022 5:56 AM EDT) P athologist Signature POC Glucose >600 65 - 199 [place] (Critical) mg/dL [facility] Comment: Supplemental ranges: <140 mg/dL before meals <180 mg/dL all other times of the day Specimen Anatomical Collection Method Collection Time Receive d Time (Source) Location / / Volume Laterality Blood 02/15/2022 5:56 AM 5:56 EDT AM EDT Thomas Quezada MD POINT OF CARE TEST ORDERABLE S Performing Organization Address City/[facility]/[place]IP [place] [address] COVID-19 PCR (02/15/2022 4:34 AM EDT) Patholo gist Method Time Signature SARS-CoV-2 Not Detected Not Detected MURRAY RNA PCR [facility] Comment: This result should be interpreted [...] using the Simplexa COVID-19 Direct Assay by [employer] as authorized by the FDA issued Emergency [...] Department of Pathology and Laboratory Medicine at [facility], certified under the Clinical Laboratory Improvement [...] clinical management guidance information are available at e CDC Coronavirus Disease 2019 (COVID-19) webpage under Information fo r Healthcare Professionals (https://www.cdc.gov/coronavirus/2019-nc ov/hcp/index.html). Additional information about this and ot her EUA tests can be found in provider and patient fact sheets at the following FDA website: https://www.fda.gov/medical-devices/kwojanzimur-vzcuwye-3081-vkhwz-89-szhdnooeu- ulg-saydrkapgohgss-tpiwsco-devices/kiupr-rmgxajlqwgk-ztni SARS-CoV-2 Source DEBATE DIRECTOR Swab [facility] Specimen (Source) Anatomical Collection Method Collection Time Re ceived Time Location / / Volume Laterality Nasopharyngeal Swab 02/15/2022 4:34 02/15 AM EDT 5:13 AM EDT Comment: Symptoms->Surveillance Resulting Agency Comment Spec In Lab Salina Santana MD MICROBIOLOGY - GENERAL ORDER NERIS Performing Organization Address City/State/ZIP [place] [address] (ABNORMAL) POCT Glucose (02/15/2022 4:17 AM EDT) athologist Signature POC Glucose 598 65 - 199 [facility] (Critical) mg/dL [facility] Comment: Supplemental ranges: <140 mg/dL before meals <180 mg/dL all other times of the day Specimen Anatomical Collection Method Collection Time Receive d Time (Source) Location / / Volume Laterality Blood 02/15/2022 4:17 AM 4:17 EDT AM EDT Salina Santana MD POINT OF CARE TEST ORDERABLE S Performing Organization Address City/State/[place]IP [place] [address] (ABNORMAL) BLOOD GAS 2 VENOUS (02/15/2022 3:17 AM EDT) P athologist Signature pH Wali 7.33 7.32 - [facility] 7.42 [facility] pCO2 Wali 50 41 - 51 [facility] LABORATORY pO2 Wali 36 25 - 40 [facility] LAB[facility]ORY HCO3 Wali 25.3 mmol/L [facility] BE Wali -0.7 mmol/L [facility] Hgb Blood Gas 13.0 11.7 - [facility] 15.5 g/dL [facility] O2HB Wali 65.8 % [facility] COHB Wali 5.5 % [facility] Comment: Nonsmokers: 0.5-1.5% COHB Smokers: Variable, but usually less than 10% Toxic: 20-30% COHB Lethal: Greater than 60% COHB METHB Wali 0.4 <=1.5 % [facility] Na Whole Blood 131 (L) 135 - 145 mmol/L [facility] K Whole Blood 4.2 3.5 - 5.0 mmol/L [facility] Comment: Please note: Patients with WBC >100,000 may have falsely elevated Potassium levels. Contact the Clinical Chemistry L aboratory if there are any questions. ICa Whole Blood 1.21 1.15 - 1.33 mmol/L [facility] Comment: Note: ??Total bilirubin higher than 20 m g/dL may lead to falsely low ionized calcium. CL Whole Blood 94 (L) 98 - 107 mmol/L [facility] Gluc Whole Bld 698 (Critical) 65 - 199 mg/dL [facility] Comment: Critical notified to Salina Santana M, MD by fretted instruments inspector immediately following run time. Diabetes: >=200 mg/dL plus symptoms Lactate WB 3.4 (H) 0.5 - 2.2 mmol/L [facility] BGas Source Venous [facility] Specimen Anatomical Collection Method Collection Time Receive d Time (Source) Location / / Volume Laterality Blood 02/15/2022 3:17 AM 3:17 EDT AM EDT Salina Santana MD CHEMISTRY ORDERABLES Performing Organization Address City/State/Z[place] [address] Face w Contrast (02/15/2022 3:13 AM EDT) Anatomical Region Laterality Modality Head Computed Tomography Specimen (Source) Anatomical Collection Method Collection Time Re ceived Time Location / / Volume Laterality 02/15/2022 3:28 AM EDT Impressions 02/15/2022 3:30 AM EDT Dental caries tooth #15. Small root fragment tooth #14. No radiographic manifestation of the muc osal lesions identified along the palate and comments. No evidence of dental abscess seen. Thank you for letting us participate in the care of this patient. ??If you are a health care provider and have any questi ons regarding this report, please contact the number below. ??For patients who have questions please contact the health child care worker that requested your imaging first. ? Narrative 02/15/2022 3:30 AM EDT EXAMINATION: CT FACE W CONTRAST CLINICAL HISTORY: Tooth 2 abscess, adjac ent necrotic tissue of palate, posterior pharynx, diabetic TECHNIQUE: CT face performed after the intravenous administration of contrast. Administered 110.0 ml of OMNIPAQUE 350.00 mg/ml. COMPARISON: None FINDINGS: Dental caries involving the crown of too th #15. There is relative lucency of the medullary space of the posterior maxilla , left greater than right without ishmael apical lucency to suggest endodontal abs cess. There is no evidence of abscess adjacent to the alveolar ridge of the maxilla. No soft tissue gas. There is a small root fragment tooth #14 present. At tooth #16 is impacted with within the maxilla. There is absence of tooth #1 and 3 with alveolar recession at tooth #3. There is minimal mucosal thickening elaine g the alveolar ridge of the right maxillary antrum, image 31 through 33 of series 7. No air-fluid level. Remaining paranasal sinuses are clear. Normal appearance of the visualized brai n, orbits, journeyman apprentice electricians space, parapharyngeal space, parotid space, car otid space. Mild prominence of the tonsillar pillars without evidence of ab scess. There is mild anterolisthesis of C3 on C4 and C4 on C5 with severe facet arthropathy at these levels. Procedure Note Peña Menezes MD - 02/15/2022Formatt ing of this note might be different from the original. EXAMINATION: CT FACE W CONTRAST CLINICAL HISTORY: Tooth 2 abscess, adjac ent necrotic tissue of palate, posterior pharynx, diabetic TECHNIQUE: CT face performed after the intravenous administration of contrast. Administered 110.0 ml of OMNIPAQUE 350.00 mg/ml. COMPARISON: None FINDINGS: Dental caries involving the crown of too th #15. There is relative lucency of the medullary space of the posterior maxilla , left greater than right without ishmael apical lucency to suggest endodontal abs cess. There is no evidence of abscess adjacent to the alveolar ridge of the maxilla. No soft tissue gas. There is a small root fragment tooth #14 present. At tooth #16 is impacted with within the maxilla. There is absence of tooth #1 and 3 with alveolar recession at tooth #3. There is minimal mucosal thickening elaine g the alveolar ridge of the right maxillary antrum, image 31 through 33 of series 7. No air-fluid level. Remaining paranasal sinuses are clear. Normal appearance of the visualized brai n, orbits, journeyman apprentice electricians space, parapharyngeal space, parotid space, car otid space. Mild prominence of the tonsillar pillars without evidence of ab scess. There is mild anterolisthesis of C3 on C4 and C4 on C5 with severe facet arthropathy at these levels. IMPRESSION Dental caries tooth #15. Small root fragment tooth #14. No radiographic manifestation of the muc osal lesions identified along the palate and comments. No evidence of dental abscess seen. Thank you for letting us participate in the care of this patient. If you are a health care provider and have any questi ons regarding this report, please contact the number below. For patients w ho have questions please contact the health child care worker that requested your imaging first. Salina Santana MD IMG CT ORDERABLES Beta Hydroxybutyrate (02/15/2022 2:49 AM EDT) athologist Signature BOHB 0.14 0.00 - 0.30 [facility] mmol/L [facility] Comment: Reference range: ??0.00-0.30 mmol/L, bas ed on an overnight fast. ??Children may be higher. Specimen Anatomical Collection Method Collection Time Receive d Time (Source) Location / / Volume Laterality Blood 02/15/2022 2:49 AM 2 3:21 EDT AM EDT Resulting Agency Comment Spec In Lab Salina Santana MD CHEMISTRY ORDERABLES Performing Organization Address City/State/ZIP [place] [address] (ABNORMAL) Urinalysis with reflex Culture (02/15/2022 2:45 AM EDT) Patholo gist Method Time Signature Glucose UA >=1000 Negative [facility] (Critical) mg/dL [facility] Comment: Urinalysis result NOT critical without a combination of Glucose greater than or equal to 500 mg/dL AND Ketones greate r than or equal to 80 mg/dL Protein UA Negative Negative mg/dL [facility] Bilirubin UA Negative Negative mg/dL [facility] Comment: Clinical correlation required for positi ve Urine Bilirubin results as false positive may occur with some drugs and d rug related products. If a false positive is suspected a serum total bili nielsen should be considered if clinically indicated. Urobilinogen UA Normal Normal mg/dL [facility] pH UA 6.0 5.0 - 8.0 [facility] Blood UA Negative Negative mg/dL [facility] Ketones UA Negative Negative mg/dL [facility] Nitrite UA Negative Negative [facility] Leukocytes UA Negative Negative [facility] LABORATORY Appearance UA Clear Clear [facility] Spec [place] UA >=1.030 (A) 1.005 - 1.030 [facility] Color UA Yellow Yellow [facility] Culture Reflexed No [facility] Specimen Anatomical Collection Method Collection Time Receive d Time (Source) Location / / Volume Laterality Clean Catch 02/15/2022 2:45 AM 2 3:21 Urine EDT AM EDT Resulting Agency Comment Spec In Lab Salina Santana MD URINE ORDERABLES Performing Organization Address City/State/ZIP Code Phon e Number [place] [id number] [address] (ABNORMAL) Differential, Automated (02/15/2022 2:04 AM EDT) [facility] Method Time Signature Neutrophils % 76.8 % [facility] Neutr Abs (ANC) 10.32 (H) 1.70 - [facility] 6.10 [facility] x10(3)/[facility] LABORATORY Lymphocytes % 16.6 % [facility] Lymphocytes Abs 2.2 0.9 - 3.2 [facility] x10(3)/[facility] LABORATORY Monocytes % 5.5 % [facility] Monocyte Abs 0.7 0.3 - 0.9 [facility] x10(3)[facility] LABORATORY Eosinophils % 0.0 % [facility] Eosinophils Abs 0.0 0.0 - 0.4 [facility] x10(3)/[facility] LABORATORY Basophils % 0.4 % [facility] Basophils Abs 0.0 0.0 - 0.1 [facility] x10(3)/[facility] LABORATORY Immature Gran % 0.70 % [facility] Comment: Immature granulocytes(IG's)percentage an d absolute count will include metamyelocytes, myelocytes, and promyelo cytes. Blood smears from CBCs yielding IG's will be scanned manually for concor dance. If this scan disagrees with the automated IG or if promyelocytes are not ed, a manual differential will be performed. [place] Gran Abs 0.09 (H) 0.00 - 0.04 x10(3)/[facility] LABORATORY Specimen Anatomical Collection Method Collection Time Receive d Time (Source) Location / / Volume Laterality Blood 02/15/2022 2:04 AM 2:11 EDT AM EDT Resulting Agency Comment Spec In Lab Julio C Wagner MD HEMATOLOGY ORDERABLES Performing Organization Address City/State/[place] [address] (ABNORMAL) Hemogram (02/15/2022 2:04 AM EDT) Analysis Performed At Patho logist Time Signature WBC 13.4 (H) 4.0 - 9.5 [facility] x10(3)/[facility] LABORATORY RBC 4.47 4.00 - [facility] 5.21 [facility] x10(6)/[facility] LABORATORY Hemoglobin 13.6 11.7 - [facility] g/dL [facility] Hematocrit 41.1 35.7 - [facility] 45.8 % [facility] MCV 91.9 82.6 - [facility] 94.4 fL [facility] MCH 30.4 27.1 - [facility] 32.0 pg [facility] MCHC 33.1 31.7 - [facility] 35.0 g/dL [facility] Platelets 306 145 - 357 [facility] x10(3)/[facility] LABORATORY RDWSD 43.2 37.0 - [facility] 46.0 [facility] LABORATORY RDWCV 12.7 11.5 - [facility] 14.1 % [facility] MPV 10.3 7.6 - 12.9 [facility] LABORATORY nRBC % Auto 0.0 % [facility] nRBC Abs Auto 0.000 0.000 - [facility] 0.000 [facility] x10(3)/[facility] LABORATORY Specimen Anatomical Collection Method Collection Time Receive d Time (Source) Location / / Volume Laterality Blood 02/15/2022 2:04 AM 2:11 EDT AM EDT Resulting Agency Comment Spec In Lab Julio C Wagner MD HEMATOLOGY ORDERABLES Performing Organization Address City/State/ZIP [place] [address] (ABNORMAL) Basic Metabolic Panel (non-fasting) (02/15/2022 2:04 AM EDT) athologist Signature Glucose Lvl 746 65 - 199 [facility] (Critical) mg/dL [facility] Comment: Called by: KARLA, Read back by: Vikki Tirado , Date/Time:02/15/22 02:40. Diabetes: >=200 mg/dL plus symptoms BUN 12 8 - 18 mg/dL [facility] Creatinine 0.86 0.70 - 1.20 mg/dL [facility] Sodium 131 (L) 135 - 145 mmol/L [facility] Potassium 4.5 3.5 - 5.0 mmol/L [facility] Comment: Please note: ??Patients with WBC >100,00 0 may have falsely elevated Potassium levels. ??For accurate Potassium quantif ication in these patients send serum separator tube (gold top) for subsequent determinations. ??Contact the Clinical Chemistry Laboratory if there are any qu estions. Chloride 93 (L) 98 - 107 mmol/L [facility] CO2 23 22 - 31 mmol/L [facility] Anion Gap 15 5 - 15 mmol/L [facility] Calcium 9.1 8.5 - 10.5 mg/dL [facility] Estimated GFR 77 >=60 mL/min/1.73 m?? [facility] Comment: This patient? s estimated glomerular filtration rate (eGFR) is between 77 mL/min/1.73 m2 (patients with less muscl e mass) and 89 mL/min/1.73 m2 (patients with more muscle mass) as determined by the CKD-EPI equation. Assessment of eGFR is not appropriate when creatinine concentrations are rapidly changing. For clinical decisions where creatinine clearance will affect therapy, a 24-hour urine creatinine clearance may b e advised. Assignment of CKD stage 1 - 5 for patien ts with an eGFR near the transition point between stages may be based on cli nical assessment of muscle mass and symptoms in addition to eGFR. Specimen Anatomical Collection Method Collection Time Receive d Time (Source) Location / / Volume Laterality Blood 02/15/2022 2:04 AM 2 2:11 EDT AM EDT Resulting Agency Comment Spec In Lab Salina Santana MD CHEMISTRY ORDERABLES Performing Organization Address City/State/ZIP Code Phon e Number [place] [phone] documented in this encounter Visit Diagnoses Diagnosis Necrotizing gingivitis - Primary [facility] documented in this encounter Admitting Diagnoses Diagnosis Necrotizing gingivitis [facility] documented in this encounter Administered Medications Inactive Administered Medications - up to 3 most recent administrations Medication Order MAR Action Action Date Dose Rate Site amLODIPine (Norvasc) tablet 10 mg Given 02/15/2022 9:35 AM EDT 10 mg 10 mg, Oral, DAILY, First dose (after last reorder) on 02/15/22 at 0900, Until Discontinued, Routine ARIPiprazole (Abilify) tablet 30 mg 30 mg, Oral, DAILY, First dose (after la st reorder) on 02/15/22 at 0900, Until Discontinued, Routine atorvastatin (Lipitor) tablet 20 mg Given 02/15/2022 9:35 AM EDT 20 mg 20 mg, Oral, DAILY, First dose (after last reorder) on 02/15/22 at 0900, Until Discontinued, Routine chlorhexidine (Peridex) 0.12 % oral solution Given 04/2022 6:19 AM EDT 15 mLs 15 mL 15 mL, Oral, 2 TIMES DAILY, First dose on 02/15/22 at 0527, Until Discontinued, Routine clotrimazole-betamethasone (Lotrisone) c ream Given 02/15/2022 8:56 AM EDT Topical (Top), 2 TIMES DAILY, First dose on 02/15/22 at 0900, Until Discontinued, Application Site: labia dextrose 10% infusion 250 mL, Intravenous, EVERY 1 HOUR PRN, S tarting on 02/15/22 at 0559, Until 02/15/22 at 1239, For BG 50-70: 120 mL Juice or Regula r (not diet) soda OR 12.5 gram (255 mL) Dextrose 10% IV OR, if no IV access, 1 mg Glucagon IM. Recheck BG in 30 minutes. May repeat juice, dextrose or glucagon once per episode For BG less than 50: 240 mL Juice or Regular (n ot diet) soda OR 25 grams (250 mL) Dextrose 10% IV OR, if no IV access, 1 mg Glucagon IM. Rechec k BG in 30 minutes. May repeat juice, dextrose, or glucagon once per episode. For persistent hypoglycemia, consider longer-acting treatment for the duration of the active insulin. DULoxetine DR (Cymbalta) capsule 60 mg Given 02/15/2022 9:35 AM EDT 60 mg 60 mg, Oral, DAILY, First dose (after last reorder) on 02/15/22 at 0900, Until Discontinued, Routine fluconazole (Diflucan) tablet 200 mg Given 02/15/2022 6:19 AM EDT 200 mg 200 mg, Oral, ONCE, 1 dose, On 02/15/22 at 0552, DO NOT SPLIT, CRUSH OR OPEN, STAT glipiZIDE (Glucotrol) tablet 5 mg Given 02/15/2022 8:56 AM EDT 5 mg 5 mg, Oral, DAILY, First dose (after last reorder) on 02/15/22 at 0900, Until Discontinued, Administer 30 minutes before the meal. Consider holding dose if patient is not eating. , Routine hydroCHLOROthiazide (Hydrodiuril) tablet 50 mg Given 02/15/2022 9:35 AM EDT 50 mg 50 mg, Oral, DAILY, First dose (after last reorder) on 02/15/22 at 0900, Until Discontinued, Routine HYDROmorphone (Dilaudid) (0.5 mg/0.5 mL) Given 02/15/2022 3:36 A M EDT 0.5 mg injection syringe 0.5 mg 0.5 mg, Intravenous, ONCE, 1 dose, On 02/15/22 at 0335, STAT HYDROmorphone (Dilaudid) (0.5 mg/0.5 mL) Given 02/15/2022 5:40 A M EDT 0.5 mg injection syringe 0.5 mg 0.5 mg, Intravenous, ONCE, 1 dose, On 02/15/22 at 0536, STAT insulin lispro (HumaLOG;Admelog) (100 Given 02/15/2022 7:13 AM E DT 8 Units unit/mL) subcutaneous injection vial 8 U nits 8 Units, Subcutaneous, ONCE, 1 dose, On 02/15/22 at 0601, STAT iohexoL (Omnipaque) (350 mg/mL) solution Given 02/15/2022 3:02 A M EDT 110 mLs 0-200 mL 0-200 mL, Intravenous, ONCE PRN, 1 dose, Starting on 02/15/22 at 0312, Until 02/15/22 at 0302, Per Protocol, Warning Vesicant/Irritant Medication , Radiology Contrast, Routine ipratropium-albuteroL (Duoneb) 0.5 mg-3 mg(2.5 Given 0 02/15/2022 8:56 AM EDT 3 mLs mg base)/3 mL nebulizer solution 3 mL 3 mL, Nebulization, EVERY 4 HOURS PRN, Starting on 02/15/22 at 0818, Until 02/15/22 at 1239, Wheezing, STAT lactated Ringers 1,000 mL IV bolus New Bag 02/15/2022 3:15 AM EDT 2000 mL/hr at 2,000 mL/hr, Intravenous, ONCE, 1 dose, On 02/15/22 at 0244 lactated Ringers 1,000 mL IV bolus New Bag 02/15/2022 3:30 AM EDT 2000 mL/hr at 2,000 mL/hr, Intravenous, ONCE, 1 dose, On 02/15/22 at 0330 levothyroxine (Synthroid) tablet 325 mcg Given 02/15/2022 9:43 AM EDT 325 mcg 325 mcg, Oral, DAILY, First dose (after last reorder) on 02/15/22 at 0900, Until Discontinued, Routine lidocaine (Xylocaine) 1% (10 mg/mL) inje ction 3 mg 3 mg (0.3 mL), Subcutaneous, ONCE PRN, 1 dose, Startin g on 02/15/22 at 0122, Until 02/15/22 at 1239, for discomfort with PIV inse rtion, Routine metroNIDAZOLE (Flagyl) tablet 500 mg Given 02/15/2022 4:36 AM EDT 500 mg 500 mg, Oral, EVERY 8 HOURS, First dose on 02/15/22 at 0429, Until Discontinued, Routine piperacillin-tazobactam (Zosyn) 4.5 New Bag 02/15/2022 2:06 AM EDT 4.5 g 200 mL/hr g vial attach to sodium chloride 0.9% 100 mL Mini-Bag Plus 4.5 g, Intravenous, ONCE, 1 dose, On 02/15/22 at 0126, Administer over 0.5 Hours, Warning Vesicant/Irritant Medication Do not administer or Y-site with lactated ringers., Indication for (Active or Suspected): Sinusitis/Pharyngitis sodium chloride 0.9 % (flush) (BD PosiFlush Given 02/15/2022 2:0 9 AM EDT 5 mLs Normal Saline 0.9) flush 5 mL 5 mL, Intravenous, 2 TIMES DAILY, First dose on 02/15/22 at 0126, Until Discontinued, Routine sodium chloride 0.9 % (flush) (BD PosiFl ush Normal Saline 0.9) flush 5-20 mL 5-20 mL, Intravenous, EVERY 1 MIN PRN, S tarting on 02/15/22 at 0122, Until 02/15/22 at 1239, flush, Flush pertains to all indwelling lines. Flush per protocol found in the job aid using the link prov ided on this medication record., Routine documented in this encounter Active and Recently Administered Medications Times are shown in EDT. Scheduled Medication Order 02/13/2022 02/14/2022 02/15/2022 amLODIPine (Norvasc) tablet 10 mg 934 (Given - Provider: Maynor Majano RN) 10 mg, Oral, DAILY, First dose (after la st reorder) on 02/15/22 at 0900, Until Discontinued, Routine ARIPiprazole (Abilify) tablet 30 mg 899 (Due) 30 mg, Oral, DAILY, First dose (after la st reorder) on 02/15/22 at 0900, Until Discontinued, Routine atorvastatin (Lipitor) tablet 20 mg 934 (Given - Provider: Maynor Majano, MARCOS) 20 mg, Oral, DAILY, First dose (after la st reorder) on 02/15/22 at 0900, Until Discontinued, Routine chlorhexidine (Peridex) 0.12 % oral solution 15 mL 618 (Given - Provider: Vikki Tirado RN) 15 mL, Oral, 2 TIMES DAILY, First dose o n 02/15/22 at 0527, Until Discontinued, Routine clotrimazole-betamethasone (Lotrisone) cream 855 (Given - Provider: Maynor Majano, MARCOS) Topical (Top), 2 TIMES DAILY, First dose on 02/15/22 at 0900, Until Discontinued, Application Site: labia DULoxetine DR (Cymbalta) capsule 60 mg 934 (Given - Provider: Maynor Majano, MARCOS) 60 mg, Oral, DAILY, First dose (after la st reorder) on 02/15/22 at 0900, Until Discontinued, Routine fluconazole (Diflucan) tablet 200 mg (COMPLETED) 618 (Given - Provider: Vikki Tirado RN) 200 mg, Oral, ONCE, 1 dose, On Sat 2 at 0552, DO NOT SPLIT, CRUSH OR OPEN, STAT glipiZIDE (Glucotrol) tablet 5 mg 0856 (Given - Provider: Maynor Majano, MARCOS) 5 mg, Oral, DAILY, First dose (after las t reorder) on 02/15/22 at 0900, Until Discontinued, Administer 30 minutes before the meal. Consider holding dose if patient is not eating. , Routine hydroCHLOROthiazide (Hydrodiuril) tablet 50 mg 0935 (Given - Provider: Maynor Majano RN) 50 mg, Oral, DAILY, First dose (after la st reorder) on 02/15/22 at 0900, Until Discontinued, Routine HYDROmorphone (Dilaudid) (0.5 mg/0.5 mL) injection syringe 0.5 m g (COMPLETED) 0336 (Given - Provider: Vikki Tirado RN) 0.5 mg, Intravenous, ONCE, 1 dose, On 02/15/22 at 0335, STAT HYDROmorphone (Dilaudid) (0.5 mg/0.5 mL) injection syringe 0.5 m g (COMPLETED) 0540 (Given - Provider: Vikki Tirado RN) 0.5 mg, Intravenous, ONCE, 1 dose, On 02/15/22 at 0536, STAT insulin lispro (HumaLOG;Admelog) (100 un it/mL) subcutaneous injection vial 8 Units (COMPLETED) 0713 (Given - Provid er: Maynor Majano RN) 8 Units, Subcutaneous, ONCE, 1 dose, On 02/15/22 at 0601, STAT lactated Ringers 1,000 mL IV bolus (COMPLETED) 0315 (New Bag - Provider: Vikki Tirado RN)0345 (Stopped - Provider: Vikki Tirado RN) at 2,000 mL/hr, Intravenous, ONCE, 1 dose, On 02/15/22 at 0244 lactated Ringers 1,000 mL IV bolus (COMPLETED) 0330 (New Bag - Provider: Vikki Tirado RN)0400 (Stopped - Provider: Vikki Tirado RN) at 2,000 mL/hr, Intravenous, ONCE, 1 dose, On 02/15/22 at 0330 levothyroxine (Synthroid) tablet 325 mcg 0943 (Given - Provider: Maynor Majano RN) 325 mcg, Oral, DAILY, First dose (after last reorder) on 02/15/22 at 0900, Until Discontinued, Routine metroNIDAZOLE (Flagyl) tablet 500 mg 0436 (Given - Provider: Vikki Tirado RN) 500 mg, Oral, EVERY 8 HOURS, First dose on 02/15/22 at 0429, Until Discontinued, Routine piperacillin-tazobactam (Zosyn) 4.5 g vi al attach to sodium chloride 0.9% 100 mL Mini-Bag Plus (COMPLETED) 0206 (New Bag - Provider: Mil Higgins, RN)0236 (Stopped - Provider: Vikki Tirado, RN) 4.5 g, Intravenous, ONCE, 1 dose, On 02/15/22 at 0126, Administer over 0.5 Hours, Warning Vesicant/Irritant Medication Do not administer or Y-site with lactated ringers., Indication for (Active or Suspected): Sinusitis/Pharyngitis sodium chloride 0.9 % (flush) (BD PosiFlush Normal Saline 0.9) f lush 5 mL 0209 (Given - Provider: Mil Higgins, RN)0900 (Not Given - Provider: Maynor Majano RN - Reason: Patient not available) 5 mL, Intravenous, 2 TIMES DAILY, First dose on 02/15/22 at 0126, Until Discontinued, Routine PRN Medication Order 02/13/2022 02/14/2022 02/15/2022 dextrose 10% infusion 250 mL, Intravenous, EVERY 1 HOUR PRN, S tarting on 02/15/22 at 0559, Until 02/15/22 at 1239, For BG 50-70: 120 mL Juice or Regular (not diet) soda OR 12.5 gram (255 mL) Dextrose 10% IV OR, if no I V access, 1 mg Glucagon IM. Recheck BG in 30 minutes. May repeat juice, dextrose or glucagon once per episode For BG less than 50: 240 mL Juice or Regular (not diet) soda OR 25 grams (250 mL) Dextro se 10% IV OR, if no IV access, 1 mg Gluc agon IM. Recheck BG in 30 minutes. May repeat juice, dextrose, or glucagon once per episode. For persistent hypoglycemia, consider longer-acting treatment for the duration of the active insulin. iohexoL (Omnipaque) (350 mg/mL) solution 0-200 mL (COMPLETED) 0302 (Given - Provider: Radha Yadav) 0-200 mL, Intravenous, ONCE PRN, 1 dose, Starting on 02/15/22 at 0312, Until 02/15/22 at 0302, Per Protocol, Warning Vesicant/Irritant Medication , Radiology Contrast, Routine ipratropium-albuteroL (Duoneb) 0.5 mg-3 mg(2.5 mg base)/3 mL nebulizer solution 3 mL 0856 (Given - Provid er: Maynor Majano, RN) 3 mL, Nebulization, EVERY 4 HOURS PRN, S tarting on 02/15/22 at 0818, Until 02/15/22 at 1239, Wheezing, STAT lidocaine (Xylocaine) 1% (10 mg/mL) injection 3 mg 3 mg (0.3 mL), Subcutaneous, ONCE PRN, 1 dose, Starting on 02/15/22 at 0122, Until 02/15/22 at 1239, for discomfort with PIV insertion, Routine sodium chloride 0.9 % (flush) (BD PosiFlush Normal Saline 0.9) f lush 5-20 mL 5-20 mL, Intravenous, EVERY 1 MIN PRN, S tarting on 02/15/22 at 0122, Until 02/15/22 at 1239, flush, Flush pertains to all indwelling lines. Flush per protocol found in the job aid using the link provided on this medication record., Routine documented in this encounter Care Teams Marine Oiler Relationship Specialty Start Date End Date Tom Hay MD PCP - General General Internal Medicine 09/15/18 [facility] [place] [address] documented as of this encounter
--- OUTSIDE RECORDS SUMMARY | 2022-07-12 00:44 | XMS_ITS | Encounter Summary ---
:1965 Author Organization [facility] Address [facility] [place] [address] Care Team Providers Name Role Phone Tom Hay MD Primary Care Provider Encounter Details Date Type Department Care Team Description 02/19/2022 External Results [facility] [place] [phone] Social History Tobacco Use Types Packs/Day [...] MD [facility] PLASTIC SURGERY [place] [phone] (Wo rk) 08/19/2022 Office Visit Podiatry Tom Titus DPM [place] [phone] (Wo rk) 09/08/2022 Office Visit Internal Medicine Jaany Hay MD [facility] GENERAL INTERNAL MEDICINE [place] [phone] (Wo rk) 10/12/2059 Hospital Encounter Surgery Jim Hanley MD [facility] SPINE CENTER [place] [phone] (Wo rk) Scheduled Procedures Name Priority Associated [...] Name Priority Date/Time Associated Diagnosis Comme nts XR CERVICAL SPINE 4 OR Routine 02/12/2022 Resul ts for this 5 VIEWS procedure are i n the results section . documented in this encounter Results XR Cervical Spine 4 or 5 Views (02/12/2022) Anatomical Region Laterality Modality L-spine N/A Radiographic Imaging Narrative This result has an attachment that is no t available. Historical Provider MD ALEX DX ORDERABLES documented in this encounter Visit Diagnoses Not on filedocumented in this encounter Care Teams Curve Saw Operator Relationship Specialty Start Date End Date Tom Hay MD PCP - General General Internal Medicine 09/15/18 [facility] [place] [address] documented as of this encounter
--- OUTSIDE RECORDS SUMMARY | 2022-07-12 00:44 | XMS_ITS | Encounter Summary ---
:1965 Author Organization [facility] Address [address] [place] [address] Care Team Providers Name Role Phone Tom Hay MD Primary Care Provider Reason for Visit Reason Comments Pre-op Exam Blood glucose, concerned damaso t it may be high, very thirsty and vision change.Asked MARCOS ann to ayaan ellis, Blood glucose 452 tested in clinic Encounter Details Date Type Department Care Team Description 03/03/2022 Office Visit Internal Medicine at [facility], Typ e 2 diabetes [facility] mellitus with [facility] hyp erglycemia, without Drive long-term current use [place], [place] Internal Medicin e of insulin [id number] [place] [address] [phone] Social History Tobacco Use Types Packs/Day Years [...] Sign Reading Time Taken Comments Blood Pressure 122/83 03/03/2022 4:42 PM EDT Pulse 96 03/03/2022 4:42 PM EDT Temperature 36.2 ??C (97.1 ??F) 03/03/2022 4:42 PM EDT Respiratory Rate 16 03/03/2022 4:42 PM EDT Oxygen Saturation 98% 03/03/2022 4:42 PM EDT Inhaled Oxygen Concentration - - Weight 79.8 kg (176 lb) 03/03/2022 4:42 PM EDT Height 165.1 cm (5' 5) 03/03/2022 4:42 PM EDT Body Mass Index 29.29 03/03/2022 4:42 PM EDT documented in this encounter Progress Notes Priy[facility] Mojica PA - 03/03/2022 4:20 PM EDT Images from the original note were not included. Subjective: Patient ID: Joseline Rose is a 56 y.o. female. Patient presents with: Pre-op Exam: Blood glucose, concerned that it may be high, very thirsty and vision change. Asked RN marissa to triage, Blood glucose 452 tested in clinic Pre-op for cervical spine arthrodesis 03/14/22 Glucose was over 1000 about a month ago when she was seen in the ED at [facility] 02/07/22. They gave her a new prescription for glyburide 2.[address] Hay prescribed glipizide 5 mg daily on 02/26 most recently. She thinks she is taking the glyburide. She started Lantus 16 units daily in AM yesterday and Humalog on sliding scale 10 days ago. She has been taking Ozempic for over a year. Her meter has been reading only high. She isn't sure if the meter isn't working right or if it's really been that high. It would read high if >600. Last time was this morning. 2 weeks ago was the last time it was a number (around 350). She has felt fatigued, lightheaded, urinating more since last night compared to before. She denies nausea, vomiting, abdominal pain. She has had blurred vision since this morning, worsening over the day. She is drinking a large bottle of water every hour (about 32 oz) and urinating a significant volume every 40 minutes. Weight decreased from 185 lb to 176 in the past week. She states she has been eating 2-3x/day, lots of veggies and fruits. She is trying to eat low carb. She was prescribed prednisone 50 mg for 5 days starting 02/07 (from [place]). Review of Systems Constitutional: Positive for fatigue. Negative for activity change, appetite change, chills, diaphoresis, fever and unexpected weight change. HENT: Negative. Eyes: Positive for visual disturbance (blurred). Negative for photophobia, pain, discharge, redness and itching. Respiratory: Negative. Negative for apnea, cough, choking, chest tightness, shortness of breath, wheezing and stridor. Cardiovascular: Negative. Negative for chest pain, palpitations and leg swelling. Gastrointestinal: Negative for abdominal distention, abdominal pain, anal bleeding, blood in stool, constipation, diarrhea, nausea, rectal pain and vomiting. Endocrine: Positive for polydipsia and polyuria. Negative for cold intolerance, heat intolerance andpolyphagia. Genitourinary: Positive for difficulty urinating. Negative for dysuria, flank pain, frequency, hematuria, pelvic pain and urgency. Musculoskeletal: Negative. Negative for back pain. Skin: Negative. Allergic/Immunologic: Negative. Neurological: Negative. Negative for dizziness, syncope and light-headedness. Hematological: Negative. Psychiatric/Behavioral: Negative. Objective: Patient Vitals for the past 24 hrs: Temp Pulse Resp BP SpO2 03/03/22 1642 36.2 ??C (97.1 ??F) 96 16 122/83 98 % BP Readings from Last 3 Encounters: 03/03/22 122/83 02/25/22 125/78 02/15/22 112/87 Wt Readings from Last 3 Encounters: 03/03/22 79.8 kg (176 lb) 03/03/22 80 kg (176 lb 6.4 oz) 02/25/22 83.9 kg (185 lb) PHQ-9 QUESTIONNAIRE SCORE ONLY (AMB) 10/26/2020 PHQ - 9 Score (Clinic) - PHQ - 9 Score (Patient) 12 (Moderate Depression) Some recent data might be hidden Physical Exam Constitutional: General: She is not in acute distress. Appearance: Normal appearance. She is well-developed. She is not ill-appearing or diaphoretic. Cardiovascular: Rate and Rhythm: Normal rate and regular rhythm. Heart sounds: Normal heart sounds. No murmur heard. Pulmonary: Effort: Pulmonary effort is normal. Breath sounds: Normal breath sounds. Abdominal: General: Bowel sounds are normal. There is no distension. Palpations: Abdomen is soft. There is no mass. Tenderness: There is no abdominal tenderness. There is no guarding or rebound. Skin: General: Skin is warm and dry. Neurological: Mental Status: She is alert and oriented to person, place, and time. Glucose UA Negative mg/dL >=1000??Critical??(CRIT) >=1000??Critical??(CRIT) CM Negative >=1000??Critical??(CRIT) CM >=1000??Critical??(CRIT) CM >=1000??Critical??(CRIT) CM Comment: See comments Protein UA Negative mg/dL Negative Negative Negative Negative Negative Negative Bilirubin UA Negative mg/dL Negative Negative CM Negative CM Negative CM Negative CM Negative CM Comment: See comments Urobilinogen UA Normal mg/dL Normal Normal Normal Normal Normal Normal pH UA 5.0 - 8.0 6.0 6.0 6.0 6.5 6.0 5.5 Blood UA Negative mg/dL Negative Negative Negative Small??Abnormal?? Small??Abnormal?? Negative Ketones UA Negative mg/dL Negative Negative Negative Trace??Abnormal?? Trace??Abnormal?? Negative Nitrite UA Negative Negative Negative Negative Negative Negative Negative Leukocytes UA Negative mcL Negative Negative Negative Negative Negative Negative Appearance UA Clear Clear Clear Clear Cloudy??Abnormal?? Cloudy??Abnormal?? Clear Spec [place]illar UA 1.005 - 1.030 >=1.030??Abnormal?? >=1.030??Abnormal?? 1.017 R >=1.030??Abnormal?? R >=1.030??Abnormal?? R >=1.030 R Color UA Yellow Yellow Yellow Yellow Yellow Yellow Yellow Culture Reflexed No No No Yes No Resulting Agency Assessment and Plan: 56 year old F with type 2 DM, taking Ozempic in the past year, and more recently restarted glyburideand started Humalog and Lantus within the past few days after being seen in ED at [facility] 02/07. She took a 5 day course of prednisone 50 mg for bronchitis which may have contributedto hyperglycemia, but hemoglobin A1c is 11.9. She has been getting mostly readings of high on her g lucometer in the past 2 weeks. During the visit, she denies nausea, vomiting, abdominal pain. She isurinating at least every hour and drinking large quantities of water and reports blurred vision the past couple of days. BMP is generally unremarkable aside from high glucose of 466 similar to POC 452.No ketones in urine but UA shows concentrated urine more so than the dipstick. Despite fatigue, thirst, and polyuria and doesn't feel acutely ill. We decided to increase Lantus from 16 mg to 20 mg and arrange close follow up with her PCP with return precautions for the ED. This was briefly discussed with Dr. Ross. Addendum: I called the patient this evening (next day) to see how she is feeling. She reports nauseaand vomiting all day since taking Ozempic yesterday. This often happens the day after she takes it but she is feeling sicker than usual. She didn't take insulin due to difficulty keeping down oral intake. She is urinating less today. I advised she be seen in closest ED and she will go to [facility]. She will need to get diabetes under better control before undergoing cervical spine arthrodesis. 1. Type 2 diabetes mellitus with hyperglycemia, without long-term current use of insulin - Urinalysis with reflex Culture - U Albumin/Cre Ratio; Future - POCT urine dipstick - U Albumin/Cre Ratio - An after visit summary was given to the patient. - Joseline was given necessary information on her condition and instructed to return if symptoms continue or worsen. documented in this encounter Plan of Treatment Upcoming Encounters Date Type Specialty Care Team Description 08/06/2022 Office Visit Plastic Surgery Peña Woodward MD [facility] PLASTIC SURGERY [place], [place] [address] (Wo rk) 08/19/2022 Office Visit Podiatry Tom Titus DPM [place], [place] [address] (Wo rk) 09/08/2022 Office Visit Internal Medicine Janay Hay MD [facility] GENERAL INTERNAL MEDICINE [place], [place] [address] (Wo rk) 10/12/2059 Hospital Encounter Surgery Jim Hanley MD [facility] SPINE CENTER [place], [place] [address] (Wo rk) Scheduled Procedures Name [...] Name Priority Date/Time Associated Comments Diagnosis HC CREATININE - NON Routine 03/03/2022 5:26 PM Type 2 diabetes Results for this BLOOD EDT mellitus with procedure are in hyperglycemia, the results without long-term section. current use of insulin URINALYSIS WITH Routine 03/03/2022 5:26 PM Type 2 diabetes Res ults for this REFLEX CULTURE EDT mellitus with procedure ar e in hyperglycemia, the results without long-term section. current use of insulin POCT URINE DIPSTICK Routine 03/03/2022 5:26 PM Type 2 diabetes Results for this EDT mellitus with procedure are in hyperglycemia, the results without long-term section. current use of insulin POCT GLUCOSE Routine 03/03/2022 4:51 PM Results f or this EDT procedure are i n the results section. documented in this encounter Results POCT urine dipstick (03/03/2022 5:26 PM EDT) P athologist Signature POC Sp [place]illar 1.015 1.002 - 1.030 POC pH, UA 5 5.0 - 8.5 POC Leuk, UA neg Negative - Negative POC Nitrite, neg Negative - UA Negative POC Protein, neg Negative - UA Negative mg/dL POC Glucose, 1,000 Normal - UA Normal mg/dL POC Ketone, UA neg Negative - Negative POC Urobil, UA norm 0.2 - 1.0 mg/dL POC Bili, UA neg Negative - Negative POC Blood, UA neg Negative - Negative alejandro/uL Specimen (Source) Anatomical Collection Method Collection Time Re ceived Time Location / / Volume Laterality 03/03/2022 5:26 PM EDT Tom Hay MD POINT OF CARE TEST ORDERABLE S U Albumin/Cre Ratio (03/03/2022 5:26 PM EDT) [facility] Method Time Signature Alb/Cr Ratio, Not Calculated 0 - 29 [facility] Random mcg/mg Cr [facility] Comment: Reference Ranges: <30 mcg/mg: Normal 30-300 mcg/mg: Moderately increased albu minuria.* >300 mcg/mg: Severely increased albuminu anuradha. * ACEI or ARB recommended if diabetic; s uggested if BP>130/80 without diabetes ACEI or ARB strongly recommended if di abetic; recommended if BP>130/80 without diabetes Two of three specimens collected within a 3 to 6 month period should be abnormal before considering a patient to have albuminuria. Transient causes: exercise, fever, infection, CHF, marked hyperglycemia or hypertension. Persistent albuminuria indicates CKD and is an independent risk factor for ASCVD. ADA Standards of Medical Care in Diabete s-2016; KDIGO: Kidney International Supplements (2012) 2, 357? 362 U Albumin Conc, Random <3.0 mg/L [facility] U Creatinine 27 mg/dL [facility] Specimen Anatomical Collection Method Collection Time Receive d Time (Source) Location / / Volume Laterality Urine 03/03/2022 5:26 PM 5:42 EDT PM EDT Resulting Agency Comment Spec In Lab Tom Hay MD URINE ORDERABLES Performing Organization Address City/State/ZIP [place] [address] (ABNORMAL) Urinalysis with reflex Culture (03/03/2022 5:26 PM EDT) [facility] Method Time Signature Glucose UA >=1000 Negative [facility] (Critical) mg/dL [facility] Comment: Urinalysis result NOT critical without a combination of Glucose greater than or equal to 500 mg/dL AND Ketones greate r than or equal to 80 mg/dL Protein UA Negative Negative mg/dL [facility] Bilirubin UA Negative Negative mg/dL [facility] Comment: Clinical correlation required for positi ve Urine Bilirubin results as false positive may occur with some drugs and d rug related products. If a false positive is suspected a serum total bili nielsen should be considered if clinically indicated. Urobilinogen UA Normal Normal mg/dL [facility] pH UA 6.0 5.0 - 8.0 [facility] Blood UA Negative Negative mg/dL [facility] Ketones UA Negative Negative mg/dL [facility] Nitrite UA Negative Negative [facility] Leukocytes UA Negative Negative [facility] Appearance UA Clear Clear [facility] Spec [place] UA >=1.030 (A) 1.005 - 1.030 [facility] Color UA Yellow Yellow [facility] Culture Reflexed No [facility] Specimen Anatomical Collection Method Collection Time Receive d Time (Source) Location / / Volume Laterality Clean Catch 03/03/2022 5:26 PM 2 5:41 Urine EDT PM EDT Resulting Agency Comment Spec In Lab Tom Hay MD URINE ORDERABLES Performing Organization Address City/State/ZIP [place] [address] (ABNORMAL) POCT Glucose (03/03/2022 4:51 PM EDT) P athologist Signature POC Glucose 452 (H) 65 - 199 [facility] mg/dL [facility] Comment: Supplemental ranges: <140 mg/dL before meals <180 mg/dL all other times of the day Specimen Anatomical Collection Method Collection Time Receive d Time (Source) Location / / Volume Laterality Blood 03/03/2022 4:51 PM 2 4:51 EDT PM EDT Priy[facility] MOJICA POINT OF CARE TEST ORDERABLE S Performing Organization Address City/State/[place]IP [place] [address] documented in this encounter Visit Diagnoses Diagnosis Myeloradiculopathy Unspecified nerve root and plexus disord er Type 2 diabetes mellitus with hyperglyce harish, without long-term current use of insulin documented in this encounter Care Teams Head Of Academic Technology Relationship Specialty Start Date End Date Tom Hay MD PCP - General General Internal Medicine 09/15/18 [facility] GENERAL [place] [address] documented as of this encounter
--- OUTSIDE RECORDS SUMMARY | 2022-07-12 00:44 | XMS_ITS | Encounter Summary ---
:1965 Author Organization [place] [place] [address] Care Team Providers Name Role Phone Tom Hay MD Primary Care Provider Reason for Visit Reason Onset Date Comments Medication Refill 02/18/2022 Encounter Details Date Type Department Care Team Description 02/18/2022 Refill [facility] Lexie Julian H/ O cervical spinal arthrodesis; at [facility] Cox Pseudoarthrosis of lumbar sp ine; [facility] Cervical spondylosis [place] [phone] Social History Tobacco Use Types Packs/Day [...] place to sleep or slept in a correction (including now)? Sex Assigned at Date Recorded Not on file documented as of this encounter Miscellaneous Notes Telephone Encounter - Lexie Julian RN - 02/18/2022 3:05 PM EDT Received call from pt stating she was expecting Dr Hill to call her following review of imaging from [facility]. Explained to pt that I had spoken with her just yesterday; Contacted [facility] to get the XR- that they were just received and uploaded today and I had informed Dr Mishra of their availability. Iiformed pt that since the imaging has been available- Dr Mishra has been scheduled with pts in clinic. Explained that Dr Mishra would call her at his first opportunity. 3:30 Call returned to pt advising Her that I had reconnected with Dr Hill informing her that she had called and hoped for a call from him at his first opportunity. Informed pt that I was calling at the request of Dr Mishra; That he had looked at the imaging and reviewed it with ne of his surgical colleagues. Informed pt that Dr Mishra would like a dedicated appt to review imaging and discuss recommendation, possible surgical intervention Pt indicated she would be happy to, even refer to come in for an in- person appt. Call transferred to Guest Relations Coordinator who offered pt an appt in Dr Mishra's next clinic. Pt reports Ultram 50 mg three times daily helps her to relax but is not helping with her persistent neck pain. Pt reports she is taking as ordered- is asking if he would order percocet. PDMP query and calculation performed. Acute Opioid Prescribing: Opioid PDMP 02/18/2022 02/07/2022 12/07/2020 11/06/2020 [place] PDMP Query Date 02/18/2022 02/07/2022 12/07/2020 12/01/2020 Comment 02/18/22 3 yr [place] query performed. Noted 02/11/22 Ultram script; and Oxycodone scriptsFeb 2020- december 2020 r/t previous cervical fusion. No concerns noted. 02/07/22 3 yr PDMP query performed; no recent opioid on record; last scripts noted inquiry were those 2 scripts our team wrote for postoperative pain in December 2020 1 post op oxycodone prescription as expected. Monthly RX for xanax [place] PDMP Query Date - - - 12/01/2020 [place] PDMP Query Date - - - 12/01/2020 No flowsheet data found. Acute Opioid Specific Questions 11/06/2020 Date Acute Consent signed 12/01/2020 Some recent data might be hidden Above reviewed with Dr Mishra who requested we not initiate opioids but rather increase ultram to 4times cordova if needed. Script prepared and ended to Dr Mishra to sign. 02/18/[address] Munoz recommendation for pain mgmt at this time. Explained that heis deferring oxycodone, but did agree to increase ultram to 4 times daily prn fr pain mgmt. Onging plans will be made next . Pt voiced understanding and appreciation. Pt advised that the script was sent to her local pharmacy. documented in this encounter Plan of Treatment Upcoming Encounters Date Type Specialty Care Team Description 08/06/2022 Office Visit Plastic Surgery Peña Woodward MD [facility] PLASTIC SURGERY [place], [place] [address] (Flores ordonez) 08/19/2022 Office Visit Podiatry Tom Titus DPM [place], [place] [address] (Wo rk) 09/08/2022 Office Visit Internal Medicine Janay Hay MD [facility] GENERAL INTERNAL MEDICINE [place], [place] [address] (Wo rk) 10/12/2059 Hospital Encounter Surgery Jim Mishra MD [facility] SPINE CENTER [place], [place] [address] (Wo rk) Scheduled Procedures Name [...] as of this encounter Visit Diagnoses Diagnosis H/O cervical spinal arthrodesis Arthrodesis status 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
--- OUTSIDE RECORDS SUMMARY | 2022-07-12 00:44 | XMS_ITS | Encounter Summary ---
:1965 Author Organization [facility] [place] [address] Care Team Providers Name Role Phone Tom Hay MD Primary Care Provider Encounter Details Date Type Department Care Team Description 02/11/2022 Hospital Encounter XRay at [facility] Rashard Hanley Cervical spondylosis with my elopathy; [address] [facility] [address] Jensen MD S/P C6 corpectomy, C5-7 ACCF 11/30/20 Dr. Hanley; [place], [place] [facility] Neck pain; [id number] CENTER Acute pain of both shoulders [phone] [place] [address] Social History Tobacco Use Types Packs/Day Years [...] on file documented as of this encounter Medications at Time of Discharge [...] Lite)DX code E11.9 complication, unspecified IDD whether long-term insulin use Vitamin D 25 mcg (1,000 [...] 2 sprays by Nasal 0 27.5 mcg/actuation [place], route daily. SuspensionIndications: Indications: allergic rhinitis Allergic Rhinitis traMADoL (Ultram) 50 mg Take 1 tablet [...] mouth 2 times daily. 2 Oral lesion yfbndwkawex-waxxviifv-zvs Inhale 1 Inhalation 60 each 3 0 10/26/2020 anter (Trelegy Ellipta) into the lungs 2 100-62.5-25 mcg Disk with daily. Device Crystal Pen Needle 32 gauge Inject 1 each 400 each 3 10/26/19 21 x 5/32 Needle subcutaneously 4 2 times daily. pen needle, diabetic 1 each by 100 each 5 10/26/202002/09 (NovoTwist) 32 gauge x Misc.(Non-Drug; 2 10/16 Needle Combo Route) route 4 times daily [...] 1 tablet by 90 tablet 3 10/12 25 mcg Tablet mouth daily. 2 blood-glucose meter 1 each by 1 each 0 10/26/202002/26 (FREESTYLE) Kit Misc.(Non-Drug; 2 Combo Route) route as needed for Other. hydroCHLOROthiazide Take 1 tablet by 90 tablet 3 10/26/2020 (Hydrodiuril) 50 mg mouth daily. 2 TabletIndications: Essential hypertension varenicline (Chantix) 1 Take 1 tablet by 30 tablet 5 2020 mg Tablet mouth daily. 2 vitamin with Take 1 tablet by 0 mukdjhky-Nk-Dwrr-FA mouth daily. 2 Tablet metroNIDAZOLE Apply topically 2 45 g 5 10/29/201802/09 (METROCREAM) 0.75 % Cream times daily. 2 ALPRAZolam (XANAX) 1 mg Take 1 mg by mouth 3 0 tablet times daily as 2 needed. ARIPiprazole (Abilify) 30 Take 30 mg by mouth 0 mg Tablet daily. 2 documented as of this encounter Plan of Treatment Upcoming Encounters Date Type Specialty Care Team Description 08/06/2022 Office Visit Plastic Surgery Peña Woodward MD [facility] PLASTIC SURGERY [place], [place] [address] (Wo rk) 08/19/2022 Office Visit Podiatry Tom Ttius DPM [place], [place] 0[address] (Wo rk) 09/08/2022 Office Visit Internal Medicine Janay Hay MD [facility] GENERAL INTERNAL MEDICINE [place], [place] [address] (Wo rk) 10/12/2059 Hospital Encounter Surgery Jim Hanley MD [facility] SPINE CENTER [place], [place] [address] (Wo rk) Scheduled Procedures Name [...] Associated Diagnosis Comme nts XR CERVICAL SPINE 2 Routine 02/11/2022 12:03 PM Cervical spond ylosis Results for this OR 3 VIEWS EDT with myelopathy procedure are in S/P C6 corpectomy, the resul ts C5-7 ACCF 11/30/[address] Hanley Neck pain Acute pain of both shoulders documented in this encounter Results XR Cervical Spine 2 or 3 Views (02/11/2022 12:03 PM EDT) Anatomical Region Laterality Modality C-spine N/A Digital Radiography Specimen (Source) Anatomical Location Collection Method / Collectio n Time Received Time / Laterality Volume Impressions 02/11/2022 2:12 PM EDT 1. ??Status post C6 with C5-6 anterior fusion with radiographic evidence of subsidence at C5. 2. ??Progressive degenerative disc disea se of the upper cervical spine. Thank you for letting us participate in the care of this patient. ??If you are a health care provider and have any questi ons regarding this report, please contact the number below. ??For patients who have questions please contact the health inpatient care manager rn that requested your imaging first. ? Narrative 02/11/2022 2:12 PM EDT EXAMINATION: XR CERVICAL SPINE 2 OR 3 VIEWS CLINICAL HISTORY: Upright AP & Lateral c ervical spine XR ( 2 views). ??s/P C6 corpectomy and C5-6 instrumented fusion 11/30/20; w ~ 4 wks progressive neck and bilat shoulder pain to assess alignment and status of instru mentation (as entered by ordering provider in the order requisition) TECHNIQUE: AP, lateral, swimmer's views of the cerv ical spine. According to the x-ray technologist note , the patient was unable to remove rings. The metallic earrings project ove r the C1 anterior arch and over the dens on the lateral and swimmer's views, limi ting evaluation of the structures. COMPARISON: Cervical spine radiographs 02/05/2021 and 12/12/2020. CT of the cervical spine 01/21/2022. FINDINGS: On the lateral view, spinal levels are s een down to C6. There are postoperative changes status p ost C6 corpectomy with C5-6 anterior fusion. Configuration of the hardware an d interbody graft is similar when compared to January 2021. However, there i s progressive loss of bone stock of the C5 vertebral body, with decreasing heigh t between the C5 superior endplate and the superior screws of the fusion hardwa re, now measuring 5 mm, previously measuring 10 mm on 02/05/2022. Findings a re suspicious for subsidence Grade 1 anterolisthesis of C3 on C4. Gra de 1 anterolisthesis of C4 on C5.. There is disc space narrowing at all levels be tween C2 and C5. Procedure Note Greta Reza MD - 02/11/2022Formattin g of this note might be different from the original. EXAMINATION: XR CERVICAL SPINE 2 OR 3 EWS CLINICAL HISTORY: Upright AP & Lateral c ervical spine XR ( 2 views). s/P C6 corpectomy and C5-6 instrumented fusion 11/30/20; w ~ 4 wks progressive neck and bilat shoulder pain to assess alignment and status of instru mentation (as entered by ordering provider in the order requisition) TECHNIQUE: AP, lateral, swimmer's views of the cerv ical spine. According to the x-ray technologist note , the patient was unable to remove rings. The metallic earrings project ove r the C1 anterior arch and over the dens on the lateral and swimmer's views, limi ting evaluation of the structures. COMPARISON: Cervical spine radiographs 02/05/2021 and 12/12/2020. CT of the cervical spine 01/21/2022. FINDINGS: On the lateral view, spinal levels are s een down to C6. There are postoperative changes status p ost C6 corpectomy with C5-6 anterior fusion. Configuration of the hardware an d interbody graft is similar when compared to January 2021. However, there i s progressive loss of bone stock of the C5 vertebral body, with decreasing heigh t between the C5 superior endplate and the superior screws of the fusion hardwa re, now measuring 5 mm, previously measuring 10 mm on 02/05/2022. Findings a re suspicious for subsidence Grade 1 anterolisthesis of C3 on C4. Gra de 1 anterolisthesis of C4 on C5.. There is disc space narrowing at all levels be tween C2 and C5. IMPRESSION 1. Status post C6 with C5-6 anterior fus ion with radiographic evidence of subsidence at C5. 2. Progressive degenerative disc disease of the upper cervical spine. Thank you for letting us participate in the care of this patient. If you are a health care provider and have any questi ons regarding this report, please contact the number below. For patients w ho have questions please contact the health inpatient care manager rn that requested your imaging first. Rashard Hanley MD IMG DX ORDERABLES documented in this encounter Visit Diagnoses Diagnosis Cervical spondylosis with myelopathy S/P C6 corpectomy, C5-7 ACCF 11/30/20 Dr. Hanley Arthrodesis status Neck pain Cervicalgia Acute pain of both shoulders documented in this encounter Care Teams Shipping/Receiving Manager Relationship Specialty Start Date End Date Tom Hay MD PCP - General General Internal Medicine 09/15/[address] [facility] [place] [address] documented as of this encounter
--- OUTSIDE RECORDS SUMMARY | 2022-07-12 00:44 | XMS_ITS | Encounter Summary ---
:1965 Author Organization [facility] Address [facility] [place] [address] Care Team Providers Name Role Phone Tom Hay MD Primary Care Provider Reason for Visit Reason Comments Neck Pain Encounter Details Date Type Department Care Team Description 02/11/2022 Office Visit Pain and Spine Rashard Hanley, H/O cerv ical spinal arthrodesis; Center at [facility] Pseudoarthrosis of lumbar spine; [facility] Cervical spondylosis with myelopathy [facility] [address] [place], [place] [facility]ENTER [id number] [place] [address] [phone] Social History Tobacco Use Types Packs/Day Years [...] place to sleep or slept in a chcf (including now)? Sex Assigned at Date Recorded Not on file documented as of this encounter Last Filed Vital Signs Vital Sign Reading Time Taken Comments Blood Pressure 127/87 02/11/2022 12:36 PM EDT Pulse 98 02/11/2022 12:36 PM EDT Temperature - - Respiratory Rate - - Oxygen Saturation - - Inhaled Oxygen Concentration - - Weight 85.7 kg (189 lb) 02/11/2022 12:36 PM EDT Height 165.1 cm (5' 5) 02/11/2022 12:36 PM EDT Body Mass Index 31.45 02/11/2022 12:36 PM EDT documented in this encounter Progress Notes Suzie Vaughn LNA - 02/11/2022 12:40 PM EDT [place] is leaving with an X-ray order to be done at [facility]. Patient was informed to giveus a call once images have been completed. Next step Dr. Hanley will call once images are viewed togo over the results Rashard Hanley MD - 02/11/2022 12:40 PM EDT Images from the original note were not included. [facility] Rashard Hanley MD [place] Rashard Hanley MD [facility] [place] [address] Tom Hay MD [facility] GENERAL INTERNAL MEDICINE / [place]* Dear Colleagues, I had the pleasure of seeing this patient at the [facility] for surgical evaluation. Procedure: C6 corpectomy C5-7 instrumentation arthrodesis 11/30/2020 ?? First follow-up visit. Patient returns in follow-up for regularly scheduled appointment. She had increasing symptoms in her neck pain over the past week. No pain in her arms just numbness. X-rays look good. On first appearance of the x-rays it appears that the cage supply gets kicked out of it and that plate is out. However if you go back to the original films there is a large osteophyte off the inferior aspect of C5. Cage is settled but there is no backing out of the screws or cage. Second follow-up visit 02/11/2022: She had a fall approximately 4 weeks ago. At that time a CT was obtained which question of loosening the proximal hardware. I reviewed the images there is been no real change in the alignment from prior images. The question is whether she has a pseudoarthrosis at C5-6.She had no neck pain prior to the fall. Neurologically intact. No evidence of myelopathy or upper extremity weakness. This primarily neck pain. Plan: 1. Soft collar for comfort 2. Flexion-extension views cervical spine to be done at [facility] 3. Call patient with results once the imaging can be reviewed. 4. May require posterior instrumented fusion for pseudoarthrosis C5-6. Sincerely, Rashard Hanley MD [facility] Crm Developer - Orthopedic Spine Surgery Belt Builder Helper - Department of Orthopedic Surgery / [employer] Gui Developer - [employer] 02/17/2022 Spine Center Response Trends Patient-reported scores: myD-H [...] Office Visit Plastic Surgery Peña Woodward MD [facility] PLASTIC SURGERY [place], [place] [address] (Wo rk) 08/19/2022 Office Visit Podiatry Tom Titus DPM [place], [place] [address] (Wo rk) 09/08/2022 Office Visit Internal Medicine Janay Hay MD [facility] GENERAL INTERNAL MEDICINE [place], [place] [address] (Wo rk) 10/12/2059 Hospital Encounter Surgery Jim Hanley MD [facility] SPINE CENTER [place], [place] [address] (Wo rk) Scheduled Orders Name Type Priority Associated Diagnoses Order S chedule XR Cervical Spine 2 or Imaging Routine H/O cervical spina l Expected: 02/12/2022, 3 Views arthrodesis Expires: 08/14/2022 Pseudoarthrosis of lumbar spine Scheduled Procedures Name Priority Associated Diagnoses Date/Time [...] myelopathy documented in this encounter Care Teams Bag Loader Relationship Specialty Start Date End Date Tom Hay MD PCP - General Internal Medicine 09/15/18 [facility] [place] [address] documented as of this encounter
--- OUTSIDE RECORDS SUMMARY | 2022-07-12 00:44 | XMS_ITS | Encounter Summary ---
:1965 Author Organization [facility] [place] [address] Care Team Providers Name Role Phone Tom Hay MD Primary Care Provider Reason for Referral Diagnostic Test (Routine) - Closed Specialty Diagnoses / Procedures Referred By Contact Refer red To Contact Diagnoses MRI [facility] Pain And Spine Procedures CT Cervical [place] [phone] Referral ID Status Reason Start Date Expiration Date Visits V isits Requested Authorized [id number] Closed Specialty 02/19/2022 08/22/2023 1 1 Service Requested Encounter Details Date Type Department Care Team Description 02/19/2022 External Results [facility] [place] [address] [phone] Social History Tobacco Use Types Packs/Day [...] place to sleep or slept in a fpc (including now)? Sex Assigned at Date Recorded Not on file documented as of this encounter Plan of Treatment Upcoming Encounters Date Type Specialty Care Team Description 08/06/2022 Office Visit Plastic Surgery Peña Woodward MD [facility] PLASTIC SURGERY [place] [phone] ([facility]) 08/19/2022 Office Visit Podiatry Tom Titus DPM [place], [place] 5 ( rk) 09/08/2022 Office Visit Internal Medicine Janay Hay MD [facility] GENERAL INTERNAL MEDICINE [place], [place] ([facility]) 10/12/2059 Hospital Encounter Surgery Jim Hanley MD [facility] SPINE CENTER [place], [place] 7 (Wo rk) Scheduled Procedures Name Priority Associated [...] Name Priority Date/Time Associated Diagnosis Comme nts CT CERVICAL SPINE WO Routine 01/21/2022 Results for this CONTRAST procedure are i n the results section . documented in this encounter Results CT Cervical Spine wo Contrast (01/21/2022) Anatomical Region Laterality Modality C-spine Computed Tomography Narrative This result has an attachment that is no t available. Historical Provider MD ALEX CT ORDERABLES documented in this encounter Visit Diagnoses Not on filedocumented in this encounter Care Teams Trapeze Performer Relationship Specialty Start Date End Date Tom Hay MD PCP - General Internal Medicine 09/15/18 [facility] [place] [address] documented as of this encounter
--- OUTSIDE RECORDS SUMMARY | 2022-07-12 00:44 | XMS_ITS | Encounter Summary ---
:1965 Author Organization [facility] [address] Care Team Providers Name Role Phone Tom Hay MD Primary Care Provider Encounter Details Date Type Department Care Team Description 02/17/2022 Orders Only Internal Medicine at Tom Hay controlled type 2 diabetes mellitus with hyperglycemia; [facility] MD Kevin Hypothyroidism, unspecified type [facility] [address] [place], [place] GENERAL INTERNAL [address] MEDICINE [phone] [place], [place] [address] (Wo rk) Social History Tobacco [...] Visit Plastic Surgery Peña Woodward MD [facility] PLASTIC SURGERY [place] [address] ( rk) 08/19/2022 Office Visit Podiatry Tom Titus DPM [place] [address] ( rk) 09/08/2022 Office Visit Internal Medicine Janay Hay MD [facility] GENERAL INTERNAL MEDICINE [place] [phone] (Wo rk) 10/12/2059 Hospital Encounter Surgery Jim Hanley MD [facility] SPINE CENTER [place] [address] (Wo rk) Scheduled Procedures Name Priority Associated Diagnoses Date/Time @ARTHRODESIS, POSTERIOR CERVICAL Cervical spondy losis with [facility] myelopathy Neck pain Pseudoarthrosis of cervical [...] documented as of this encounter Results TSH (03/03/2022 4:25 PM EDT) P athologist Signature TSH 1.40 0.27 - 4.20 [facility] mcIU/mL [facility] Comment: Reference Interval (mcIU/mL): Females: ??First Trimester: 0.23-3.88 ??Second Trimester: 0.22-3.90 ??Third Trimester: 0.44-4.66 Specimen Anatomical Collection Method Collection Time Receive d Time (Source) Location / / Volume Laterality Blood 03/03/2022 4:25 PM 4:59 EDT PM EDT Resulting Agency Comment Spec In Lab Tom Hay MD CHEMISTRY ORDERABLES Performing Organization Address City/State/ZIP Code Phon e Number [place] [phone] (ABNORMAL) Comprehensive metabolic panel (non-fasting) (03/03/2022 4:25 PM EDT) P athologist Signature Glucose Lvl 466 (H) 65 - 199 [facility] mg/dL [facility] Comment: Diabetes: >=200 mg/dL plus symp toms BUN 10 8 - 18 mg/dL [facility] Creatinine 0.67 (L) 0.70 - 1.20 mg/dL [facility] Sodium 135 135 - 145 mmol/L [facility] [...] estions. Chloride 99 98 - 107 mmol/L [facility] CO2 21 (L) 22 - 31 mmol/L [facility] Anion Gap 15 5 - 15 mmol/L [facility] Calcium 9.3 8.5 - 10.5 mg/dL [facility] Total Protein 6.6 6.1 - 8.0 g/dL [facility] Albumin 4.1 3.2 - 5.2 g/dL [facility] AST 14 0 - 30 unit/L [facility] ALT 17 0 - 30 unit/L [facility] Alk Phos 89 35 - 105 unit/L [facility] Total Bilirubin 0.2 0.2 - 1.3 mg/dL [facility] Estimated GFR 100 >=60 mL/min/1.73 m?? [facility] Comment: This patient? s estimated glomerular [...] Organization Address City/State/ZIP Code Phon e Number [place] [phone] (ABNORMAL) Hemoglobin A1c (03/03/2022 4:25 PM EDT) [facility] Method Time Signature Hemoglobin A1C 11.9 (H) 4.3 - 5.6 [facility] Comment: Reference Range: 4.3 - [...] Mellitus, Diabetes Care 2013; 36: Suppl. 1, M67-10 Est Avg Gluc 296 mg/dL [facility] Comment: eAG equivalents for HbA1c percentages: HbA1c(%) ?eAG(mg/dL) 6.0 ?126 6.5 ?140 7.0 ?154 7.5 ?169 8.0 ?183 8.5 ?197 9.0 ?212 9.5 ?226 10.0 ? 240 Limitations: The eAG calculation has not been validated on women, individuals below 18 years old and above 70 years old, and individuals with hemoglobinopathies. Additional resources are available on [facility] website. Steve CHAO, Bhumi J, Kay R, et al. ??Tr anslating the A1C assay into estimated average glucose values. ??Diabetes Care 2008:31(8):4415-7939. Specimen Anatomical Collection Method Collection Time Receive d Time (Source) Location / / Volume Laterality Blood 03/03/2022 4:25 PM 2 4:59 EDT PM EDT Resulting Agency Comment Spec In Lab Tom Hay MD CHEMISTRY ORDERABLES Performing Organization Address City/State/ZIP [place] [address] documented in this encounter Visit Diagnoses Diagnosis Uncontrolled type 2 diabetes mellitus wi hyperglycemia Hypothyroidism, unspecified type documented in this encounter Care Teams Racquet Maker Relationship Specialty Start Date End Date Tom Hay MD PCP - General General Internal Medicine 09/15/18 [facility] [place] [address] documented as of this encounter
--- OUTSIDE RECORDS SUMMARY | 2022-07-12 00:44 | XMS_ITS | Encounter Summary ---
:1965 Author Organization [facility] Address [address] [place] [address] Care Team Providers Name Role Phone Tom Hay MD Primary Care Provider Reason for Visit Reason Onset Date Comments Pre Procedure Call 02/25/2022 Collar fitting; preo p teaching, ORT, PDMP, acute opioid consent. Pain mgmt, medication refills Encounter Details Date Type Department Care Team Description 02/25/2022 Telephone [facility] Lexie Julian Procedure Call at [facility] M RN (Collar fitting; preop [facility] teaching, ORT, PDMP, [place] [address] Pain mgmt, medication [phone] refills) Social History Tobacco Use Types Packs/Day Years [...] Telephone Encounter - Lexie Julian RN - 02/26/2022 12:37 PM EDT Met with today following the surgical evaluation for purpose of providing pre and post operative instructions and to plan for any pre/post- operative discharge needs. 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 Collar Info: Fit patient for [place] collar; Size needed: 300S. An order was placed for [place] while she was here in clinic and pt was directed to [facility] to obtain collar preop as she found the collar very comforting while being fitted. Dr Hanley indicated Ms Rose could come into [facility] with her collar and it could be used post op. Reviewed expectations re collar use postoperatively. Provided education & reviewed importance ofdaily skin assessment, and pad changes as needed. Pt is familiar with collar care- pad changes givenher previous cervical fusion. Preop Medication Holds: Advised pt of need to hold anticoagulants, NSAIDs, ASA products, and Fish Oil for ~10 days preoperatively. Reviewed medication list. No meds on list of concern needing extend hold pre-op. is not noted to be taking any prescription anticoagulants. Opioid Risks and Pain Management: Reviewed salient points within Acute Opioid Therapy Informed Consent. Signed Consent Form passed to the [place] home care scheduler for scanning. Reviewed with that she is likely to experience some incisional pain as well as throat discomfort and difficulty swallowing postoperatively. Reviewed some strategies to ease swallowing during the acute recovery period. Discussed with pt expectations re postoperative incisional and extremity pain, to include expectations re potential new or increased N/T. Patient familiar w recovery process/ Expected postoperative pain and our mgmt process given prior cervical fusion. See PDMP query below. Reviewed current and historical opioid use. Is taking Ultram 50 mg 4 times per day, as ordered by Dr Hanley. Reviewed with pt to make efforts to decrease opioid use preoperatively, by skipping a dose periodically if able. as this will aid post-op pain management Acute post-operative pain mgmt is expected to be ordered by Dr Hanley and the [facility] surgical team. Reviewed in detail non-opioid pain mgmt strategies that should be put in place postoperatively to minimize opioid use. Strategies discussed included: rest and relaxation, activity modification, regularrepositioning, regular Acetaminophen use, hourly ice application for local analgesia/inflammation. Explained that the non-opioid pain mgmt strategies are intended to be the first line of treatment to assist with her postop pain. Instructed to Initiate the regular use of ice and OTC medication immediately upon return home, even if this was not documented in her discharge instructions. Reinforced with pt that she should contiue the non- opioid pain mgmt treatments for as long as he is requiring any opioids; that the opioid is the first treatment that should be discontinued. Pt understands sheis not to use NSAIDS postoperatively as it can impact fusion. Advised that the opioid pain medication that will be prescribed is to be used to supplement the non-opioid methods. Advised pt that she is to take the least amt of opioid possible, and the expectation is that she will reduce use as the postoperative pain subsides. Advised pt that she should never exceed the prescribed amt without obtaining authorization from someone on the surgical care team. Provided instructions and general expectations re prescription refill practices/timing. Acute Opioid Prescribing: Opioid PDMP 02/25/2022 02/18/2022 02/07/2022 12/07/2020 11/06/2020 [place] PDMP Query Date 02/25/2022 02/18/2022 02/07/2022 12/07/2020 12/01/2020 Comment 02/25/22 3 yr [place] PDMP query performed; [...] PDMP Query Date - - - - 12/01/2020 [place] PDMP Query Date - - - - 12/01/2020 No flowsheet data found. Acute Opioid Specific Questions 02/25/2022 Date Acute Consent signed 02/25/2022 Comment 02/25/22 Acute opoid consent reviewed and signed; Signed document passed to [place] home care scheduler to be scanned. Considered the risk of [...] practices Some recent data might be hidden Activity: Reviewed with Ms.Hope our expectations re activity postoperatively, to include use of good body mechanics, to relax when moving rather than tensing/guarding, and our expectations re progressive walkingupon return home. Advised Ms.Hope that she would not be able to drive while taking opioid pain medication and while wearing a cervical collar. Home Support/Services Expected: Discussed home environment and support available following discharge. Patient lives alone without any regular support; Pt did have the assistance of VNA services after her previous surgery- but she reports going to stay at a friends' home( alone) in order to have the VNAservices available. Given the lack of home support; Advised pt that I anticipated arrangements wouldbe made for VNA again- to be certain to advise inpt staff/social service manager of the address she will be residing at during her acute post op period as the VNA vendor aura be determined based on that address.Explained to pt if t was established that she needed more services than could be offered by VNA- that during her admission a that arrangements for a brief stay at Rehab might be arranged. Explained that this need is very dependent on her status- so would be arranged postoperatively if indicated. Requested Cierra Nowak call pt prior to surgery to touch based on anticipated VNA or rehab needs. 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 Postoperative PT Evaluation: Given the surgery performed; post op restrictions and anticipated VNA or rehab services; I have deferred arranging a coordinated post-op PT eval. A copy of Spine Center Pre/Post-Operative Reference sheet provided to pt; reviewed the content. Encouraged to review these instructions prior to coming into the hospital and then again upon return home so that the instructions will be recalled easily. verbalized understanding of the information reviewed. was given the contact information for the Spine Center Nursing staff; she was encouraged to call pre or postoperatively with any questions or concerns. 02/26/22 2:21 Optimization letter initiated and pended to Moni Denton, the [place] home care scheduler to complete andprocess. 02/26/22 IB message sent to Cierra to request she estuardo pt preop to discuss potential VNA/ Inpt Rehab postop. documented in this encounter Plan of Treatment Upcoming Encounters Date Type Specialty Care Team Description 08/06/2022 Office Visit Plastic Surgery Peña Woodward MD [facility] PLASTIC SURGERY [place], [place] [address] (Wo rk) 08/19/2022 Office Visit Podiatry Tom Titus DPM [place], [place] [address] (Wo rk) 09/08/2022 Office Visit Internal Medicine Janay Hay MD [facility] GENERAL INTERNAL MEDICINE [place], [place] [address] ( rk) 10/12/2059 Hospital Encounter Surgery Jim Hanley MD [facility] SPINE CENTER [place], [place] [address] (Wo rk) Scheduled Procedures Name [...] on filedocumented in this encounter Care Teams Petrophysicist Relationship Specialty Start Date End Date Tom Hay MD PCP - General General Internal Medicine 09/15/[address] [facility] GENERAL [place] [address] documented as of this encounter
--- OUTSIDE RECORDS SUMMARY | 2022-07-12 00:45 | XMS_ITS | Encounter Summary ---
:1965 Author Organization [facility] [place] [address] Care Team Providers Name Role Phone Tom Hay MD Primary Care Provider Encounter Details Date Type Department Care Team Description 09/24/2021 Telephone Internal Medicine at [facility] Huyen Wheatley [facility] Kevin [address] [address] Social History Tobacco Use Types Packs/Day Years Used Date Current Every Day Smoker Cigarettes 0.5 13 Smokeless Tobacco: Never Used Alcohol Use Standard Drinks/Week Comments No 0 [...] Woodward MD [facility] PLASTIC SURGERY [place], [place] [address] (Wo rk) 08/19/2022 Office Visit Podiatry Tom Titus DPM [place] [phone] (Wo rk) 09/08/2022 Office Visit Internal Medicine Janay Hay MD [facility] GENERAL INTERNAL MEDICINE [place] [phone] (Wo rk) 10/12/2059 Hospital Encounter Surgery Jim Hanley MD [facility] SPINE CENTER [place] [phone] (Wo rk) Scheduled Procedures Name Priority Associated [...] on filedocumented in this encounter Care Teams Delinquent Tax Collector Relationship Specialty Start Date End Date Tom Hay MD PCP - General General Internal Medicine 09/15/18 [facility] [place] [address] documented as of this encounter
--- OUTSIDE RECORDS SUMMARY | 2022-07-12 00:45 | XMS_ITS | Encounter Summary ---
:1965 Author Organization [facility] [place] [address] Care Team Providers Name Role Phone Tom Hay MD Primary Care Provider Reason for Visit Reason Comments Neck Pain Encounter Details Date Type Department Care Team Description 02/05/2021 Office Visit Pain and Spine Center Rashard Hanley, H /O cervical spinal at [facility] MD arthrodesis [facility] DR [place]bone [place] [facility] [id number] [place] [address] [phone] Social History Tobacco Use Types Packs/Day Years [...] place to sleep or slept in a care home (including now)? Sex Assigned at Date Recorded Not on file documented as of this encounter Last Filed Vital Signs Vital Sign Reading Time Taken Comments Blood Pressure - - Pulse - - Temperature - - Respiratory Rate - - Oxygen Saturation - - Inhaled Oxygen Concentration - - Weight 90.7 kg (200 lb) 02/05/2021 1:09 PM EDT Height 165.1 cm (5' 5) 02/05/2021 1:09 PM EDT Body Mass Index 33.28 02/05/2021 1:09 PM EDT documented in this encounter Progress Notes Rashard Hanley MD - 02/05/2021 1:20 PM EDT Images from the original note were not included. [facility] [place] Tom Argueta MD [facility] GENERAL [place] [address] Dear Colleagues, I had the pleasure of seeing this patient at the [facility] for surgical evaluation. Procedure: C6 corpectomy C5-7 instrumentation arthrodesis 11/30/2020 Patient returns in follow-up for regularly scheduled appointment. She had increasing symptoms in herneck pain over the past week. No pain [...] backing out of the screws or cage. Plan: 1. Follow-up 3 months with AP and lateral views of her cervical spine. 2. Work note able to lift up to 25 pounds. Indefinitely. Sincerely, Rashard Hanley MD PA [facility] [employer]els - Orthopedic Spine Surgery Pocket Cutter - Department of Orthopedic Surgery / Academics and Research Track Layer Head - [facility] 02/10/2021 Spine Center Response Trends Patient-reported scores: myD-H [...] Office Visit Plastic Surgery Peña Woodward MD [facility] PLASTIC SURGERY [place], [place] [address] (Wo rk) 08/19/2022 Office Visit Podiatry Tom Titus DPM [place], [place] [address] (Wo rk) 09/08/2022 Office Visit Internal Medicine Janay Hay MD [facility] GENERAL INTERNAL MEDICINE [place], [place] [address] (Wo rk) 10/12/2059 Hospital Encounter Surgery Jim Hanley MD [facility] SPINE CENTER [place], [place] [address] (Wo rk) Scheduled Procedures Name [...] Diagnosis H/O cervical spinal arthrodesis Arthrodesis status documented in this encounter Care Teams Repair Table Operator Relationship Specialty Start Date End Date Tom Hay MD PCP - General General Internal Medicine 09/15/18 [facility] [place] [address] documented as of this encounter
--- OUTSIDE RECORDS SUMMARY | 2022-07-12 00:45 | XMS_ITS | Encounter Summary ---
:1965 Author Organization [facility] Address [facility] [place] [address] Care Team Providers Name Role Phone Tom Hay MD Primary Care Provider Encounter Details Date Type Department Care Team Description 02/07/2022 Orders Only Pain [facility] Sp[facility] Center Lexie Julian rvical spondylosis with myelopathy; at [facility] M, RN S/P C6 corpectomy, C5-7 ACCF 11/30/20 Dr. Hanley; [facility] Neck pain ; Drive Acute [place] [address] Social History Tobacco Use Types Packs/Day [...] place to sleep or slept in a [facility] (including now)? Sex Assigned at Date Recorded Not on file documented as of this encounter Progress Notes Lexie Julian RN - 02/07/2022 12:54 PM EDT Cervical XR pended to Enrico Mar to sign as authorized by Dr Hanley. Dr Hanley in [place] and not immediately available to sign order. See separate telephone note for overall plans documented in this encounter Plan of Treatment Upcoming Encounters Date Type Specialty Care Team Description 08/06/2022 Office Visit Plastic Surgery Peña Woodward MD [facility] PLASTIC SURGERY [place], [place] [address] (Flores ordonez) 08/19/2022 Office Visit Podiatry Tom Titus DPM [place], [place] [address] (Wo josé luis) 09/08/2022 Office Visit Internal Medicine Janay Hay MD [facility] GENERAL INTERNAL MEDICINE [place], [place] [address] (Flores ordonez) 10/12/2059 Hospital Encounter Surgery Jim Hanley MD [facility] SPINE CENTER [place], [place] [address] (Wo rk) Scheduled Procedures Name Priority Associated [...] sequela documented as of this encounter Results XR Cervical Spine 2 [...] who have questions please contact the health patient care coordinator that requested your imaging first. ? Electronically signed by: Brooke Peraza, [facility] ([phone]), at 02/11/2022 2:12 PM Narrative 02/11/2022 2:12 PM EDT EXAMINATION: XR [...] ho have questions please contact the health patient care coordinator that requested your imaging first. Electronically signed by: Brooke Peraza, [facility] ([phone]), at 02/11/2022 2:12 PM Rashard Hanley MD IMG DX ORDERABLES documented in this encounter Visit Diagnoses Diagnosis Cervical spondylosis with myelopathy S/P C6 corpectomy, C5-7 ACCF 11/30/20 Dr. Hanley Arthrodesis status Neck pain Cervicalgia Acute pain of both shoulders Cervical spondylosis with myelopathy S/P C6 corpectomy, C5-7 ACCF 11/30/20 Dr. Hanley Arthrodesis status Neck pain Cervicalgia Acute pain of both shoulders documented in this encounter Care Teams [place] Operator Relationship Specialty Start Date End Date Tom Hay MD PCP - General General Internal Medicine 09/15/18 [facility] GENERAL [place] [address] documented as of this encounter
--- OUTSIDE RECORDS SUMMARY | 2022-07-12 00:45 | XMS_ITS | Encounter Summary ---
:1965 Author Organization [facility] Address [address] [place] [address] Care Team Providers Name Role Phone Tom Hay MD Primary Care Provider Encounter Details Date Type Department Care Team Description 02/05/2021 Hospital Encounter XRay at [facility] Rashard Hanley S/Cody C6 corpectomy, [address] Jensen MD C5-7 ACCF 11/30/[address] [facility] [address] Hanley [id number] [place] [phone] [place] [address] Social History Tobacco Use Types Packs/Day Years [...] Sig Dispensed Refills Start Date End Date methocarbamoL (ROBAXIN) Take 1 tablet by 30 tablet 0 2020 750 mg TabletIndications: mouth 3 times daily Cervical radicular pain as needed. blood sugar diagnostic Use as instructed to 300 each 3 strips StripIndications: check BG 4 times Controlled type 2 daily. (SOLEM Electroniqueyle diabetes mellitus without Lite)DX code E11.9 complication, unspecified IDD whether shelter insulin use Vitamin D 25 mcg (1,000 [...] 2 sprays by Nasal 0 27.5 mcg/actuation [place], route daily. SuspensionIndications: Indications: allergic rhinitis Allergic Rhinitis Clobetasol-Emollient 0.05 Apply twice daily to 200 [...] mouth 2 times daily. 2 Oral lesion glodbrzkejx-syjbxdtoa-qun Inhale 1 Inhalation 60 each 3 0 [...] Delayed mouth 2 times daily. 2 Release(E.C.) nystatin (Mycostatin) SAS 5 ML PO QID PRF 60 mL 0 10/26 100,000 unit/mL THRUSH 1 Suspension semaglutide 1 mg/dose (2 Inject 1 mg 12 Syringe 3 10/26/2020 mg/1.5 mL) Pen Injector subcutaneously once 2 a week. albuteroL (ProAir HFA) 90 Inhale 2 puffs into 3 Inhaler 3 0 10/26/2020 mcg/actuation HFA Aerosol the lungs every 4 1 InhalerIndications: hours as needed for Chronic obstructive Wheezing. Use with pulmonary disease with spacer acute exacerbation amLODIPine (Norvasc) 10 Take 1 tablet by 90 tablet 3 2020 mg Tablet mouth daily. 2 atorvastatin (Lipitor) 20 Take 1 tablet by 90 tablet 3 10/12 mg Tablet mouth daily. 2 BD Alcohol Swabs Pads, 1 each 4 times 100 each 3 1 Medicated daily. 2 levothyroxine (Synthroid) Take 2 tablets by 180 tablet 3 150 mcg Tablet mouth daily. Take in 2 addition to the 25mcg to equal 325mcg levothyroxine (Synthroid) Take 1 tablet by 90 tablet 3 10/12 25 mcg Tablet mouth daily. 2 meclizine (Antivert) 25 Take 1 tablet by 90 tablet 3 2020 mg TabletIndications: mouth 3 times daily 1 Vertigo as needed. blood-glucose meter 1 each by 1 each 0 10/26/202002/26 (FREESTYLE) Kit Mis.(Non-Drug; 2 Combo Route) route as needed for Other. ondansetron ODT DISSOLVE 1 T UNDER 20 tablet 0 10/26/2020 0 (Zofran-ODT) 4 mg Tablet, THE TONGUE Q 6 H PRN 1 Rapid Dissolve hydroCHLOROthiazide Take 1 tablet by 90 tablet 3 10/26/2020 (Hydrodiuril) 50 mg mouth daily. 2 TabletIndications: Essential hypertension varenicline (Chantix) 1 Take 1 tablet by 30 tablet 5 2020 mg Tablet mouth daily. 2 vitamin with Take 1 tablet by 0 gtdxwczn-Ug-Brmo-FA mouth daily. 2 Tablet metroNIDAZOLE Apply topically [...] MD [facility] PLASTIC SURGERY [place], [place] [address] (Wo rk) 08/19/2022 Office Visit Podiatry Tom Titus DPM [place], [place] [address] (Wo rk) 09/08/2022 Office Visit Internal Medicine Janay Hay MD [facility] GENERAL INTERNAL MEDICINE [place], [place] [address] (Wo rk) 10/12/2059 Hospital Encounter Surgery Jim Hanley MD [facility] SPINE CENTER [place], [place] [address] (Wo rk) Scheduled Procedures Name [...] Comme nts XR CERVICAL SPINE 2 Routine 02/05/2021 12:27 PM S/P C6 corpect donald, Results for this OR 3 VIEWS EDT C5-7 ACCF 11/30/[address] Hanley the results section. documented in this encounter Results XR Cervical Spine 2 or 3 Views (02/05/2021 12:27 PM EDT) Anatomical Region Laterality Modality C-spine N/A Digital Radiography Specimen (Source) Anatomical Location Collection Method / Collectio n Time Received Time / Laterality Volume Impressions 02/05/2021 1:23 PM EDT Possible subtle anterior displacement of the C5-7 ACDF plate without new spine malalignment or interbody graft collapse . Thank you for letting us participate in the care of this patient. ??If you are a health care provider and have any questi ons regarding this report, please contact the number below. ??For patients who have questions please contact the health rn primary care that requested your imaging first. ? Narrative 02/05/2021 1:23 PM EDT EXAMINATION: XR CERVICAL SPINE 2 OR 3 VIEWS CLINICAL HISTORY: AP and LAT S/P Cervica l neck surgery, 11-30-20 TECHNIQUE: 3 views of the cervical spine, out of wiley pport collar COMPARISON: Radiographs November 30 and December 12 FINDINGS: The patient is status post C6 corpectomy and C5-7 anterior cervical disc fusion with reconstruction plate, screws and in terbody bone graft. Plate and screws are intact with subtle anterior displacement compared with the immediately postoperative radiographs. No bone graft collapse or lower cervical spine malalignment. Grade 1 anterolisthesis of C3 on C4 and C4 on C5 is unchanged. Uncovertebral joint spurs and facet osteoarthropathy p ersist. Survey of skull base, maxillofacial stru ctures, prevertebral soft tissues and thoracic inlet is normal. Procedure Note Mattie Laughlin MD - 02/05/2021Forma tting of this note might be different from the original. EXAMINATION: XR CERVICAL SPINE 2 OR 3 EWS CLINICAL HISTORY: AP and LAT S/P Cervica l neck surgery, 11-30-20 TECHNIQUE: 3 views of the cervical spine, out of wiley pport collar COMPARISON: Radiographs November 30 and December 12 FINDINGS: The patient is status post C6 corpectomy and C5-7 anterior cervical disc fusion with reconstruction plate, screws and in terbody bone graft. Plate and screws are intact with subtle anterior displacement compared with the immediately postoperative radiographs. No bone graft collapse or lower cervical spine malalignment. Grade 1 anterolisthesis of C3 on C4 and C4 on C5 is unchanged. Uncovertebral joint spurs and facet osteoarthropathy p ersist. Survey of skull base, maxillofacial stru ctures, prevertebral soft tissues and thoracic inlet is normal. IMPRESSION Possible subtle anterior displacement of the C5-7 ACDF plate without new spine malalignment or interbody graft collapse . Thank you for letting us participate in the care of this patient. If you are a health care provider and have any questi ons regarding this report, please contact the number below. For patients w ho have questions please contact the health rn primary care that requested your imaging first. Rashard Hanley MD IMG DX ORDERABLES documented in this encounter Visit Diagnoses Diagnosis S/P C6 corpectomy, C5-7 ACCF 11/30/20 Dr. Hanley Arthrodesis status documented in this encounter Care Teams Nuclear Plant Operator Relationship Specialty Start Date End Date Tom Hay MD PCP - General General Internal Medicine 09/15/18 [facility] [place] [address] documented as of this encounter
--- OUTSIDE RECORDS SUMMARY | 2022-07-12 00:45 | XMS_ITS | Encounter Summary ---
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 Prescribed Zofran and Carafate. Taking Zofran but couldn't picker feeder Carafate because there was some insurance hangup. Reports not eating. Last fullmeal 02/09/21 - a bagel and cream cheese. Everything turns to acid and causes epigastric pain. Reports emesis is full of foam and pretty red with blood. And there are chunks of blood in my stools. Also states her stools are dark with fat in them and they float. She reports loosing 12 lbs. Whenasked if she pinches the skin on her hand if it is slow to go flat she said yes, I am severely dehydrated. No dizziness or light headedness. Denies weakness, headaches. Strongly advised to seek medical care within the next 2-4 hours per [facility] Triage Protocols. Joseline declined. I can't leave work. There is no one to take over. Felipas called and Carafate is available with no co-pay. Patient called back and informed. She made a verbal agreement to picker feeder Carafate and continue to take medications as prescribed, to sip electrolyte fluids and attempt to eat small amounts of easy to digest soft foods, and to come to appointment tomorrow with Radhika Barcenas at 11:40 am. Encouraged to check blood sugars. Ketones noted inurine in ED. Discussed urgent and emergent signs and she agreed to seek care immediately if symptomsoccur. documented in this encounter Plan of Treatment Upcoming Encounters Date Type Specialty Care Team Description 08/06/2022 Office Visit Plastic Surgery Peña Woodward MD [facility] PLASTIC SURGERY [place], [place] [address] (Wo rk) 08/19/2022 Office Visit Podiatry Tom Titus DPM [facility] [address] [place], [place] [address] (Wo rk) 09/08/2022 Office Visit Internal Medicine Janay Hay MD [facility] GENERAL INTERNAL MEDICINE [place], [place] [address] (Wo rk) 10/12/2059 Hospital Encounter Surgery Jim Hanley MD [facility] [place], [place] [address] (Wo rk) Scheduled Procedures Name [...] on filedocumented in this encounter Care Teams Machine Presser Relationship Specialty Start Date End Date Tom Hay MD PCP - General General Internal Medicine 09/15/18 [facility] GENERAL [place] [address] documented as of this encounter
--- OUTSIDE RECORDS SUMMARY | 2022-07-12 00:45 | XMS_ITS | Encounter Summary ---
:1965 Author Organization [facility] [place] [address] Care Team Providers Name Role Phone Tom Hay MD Primary Care Provider Reason for Visit Reason Onset Date Comments Neck Pain 02/07/2022 Encounter Details Date Type Department Care Team Description 02/07/2022 Telephone Pain and Spine Marin jacobsen at [facility]ix[facility] Julian [facility] [place] [address] Social History Tobacco Use Types Packs/Day [...] Telephone Encounter - Lexie Julian RN - 02/07/2022 8:35 AM EDT Received call from pt who is s/p C6 Corpectomy and C5-& Instrumented fusion with Dr Turcios 11/30/20. Patient was last seen in clinic 02/05/21 at which time she was having increased neck ain X1 wk; noradicular pain; Plan was modified work and FU in 3 mo w updated XR; Pt did not show for the Secondary surgical FU and XR on 05/15/21 and pt did not reschedule. Pt is calling today to report having slipped late December; catching herself but having whip lash type motion of her neck. She reports going to [facility] ED in [facility] where XR was obtained. Pt reports having been advised to FU with her surgeon for add'l FU and imaging. Chart reviewed; No incoming records, XR or referral from [facility] subsequent to pt's reported ED visit. 02/07/22 ~ 8:40am Faxed reguest to [facility] seeking ED report, cervical radiology report and imaging for continuity of care as pt calling today to request treatment and appts. Pt reports having 4 wks of progressively worsening severe posterior neck pain and pain radiating into bilat shoulders; She reports onset of thei pain at time of slip; worsening snce. Pt reports significant bilat Hand numbness, with decreased dexterity and dropping object; Right significantly worse than left. Pt has been wearing a soft collar as provided by her local ED and taking ibuprofen reguarly as she was instructed by ED staff with no benefit. 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 Pt calling today to request something for pain and FU. I explained that having not seen her for scheduled Post op FU; having no documentation or imaging frm the december event; That we might need to defer her to her local provider until we had information or she was evaluated. Pt states her PCP is not helpful. Pt understands I will review with Dr Hanley and then return call. In the interim suggested that shecontinue to follow the directions as provided by the ED; to add tylenol ES And intermittent breaks in a position she finds most comforting to her sx mgmt routine. PDMP query performed; noted no opioid scripts since those two scripts written during pt's post op recovery period in December 2020 Acute Opioid Prescribing: Opioid PDMP 02/07/2022 12/07/2020 11/06/2020 [place] PDMP Query Date 02/07/2022 12/07/2020 12/01/2020 Comment 02/07/22 3 yr PDMP query performed; no recent opioid on record; last scripts noted inquiry were those 2 scripts our team wrote for postoperative pain in December 2020 1 post op oxycodone prescription as expected. Monthly RX for xanax [place] PDMP Query Date - - 12/01/2020 [place] PDMP Query Date - - 12/01/2020 No flowsheet data found. Acute Opioid Specific Questions 11/06/2020 Date Acute Consent signed 12/01/2020 Some recent data might be hidden Above reviewed with Dr Hanley who recommended obtaining an XR and arranging an evaluation with soraida or Enrico Mar, his surgical PA. Pt asking if Dr Hanley was going to prescribe something while she awaits the appt. Explainedthat given the new injury precipitating her sxs; our lack of records and imaging reports from the outside ED, and her lack of attendance for the secondary surgical FU, that we are declinng to treat sxs until she is evaluated; that in the interim she would need to pursue medication mgmt from aprivoder she has seen more recentlt; preferably one she has seen for her new injury. Informed pt that I would ask the schedulers to call her on their return from break and would look ahead at schedules for a timely appt. 1:45 Requested conservation coordinator call pt to offer time Tues 5/3 in the afternoon with Dr Guero RODNEY prior.XR pended to AB in separate orders only encounter documented in this encounter Plan of Treatment Upcoming Encounters Date Type Specialty Care Team Description 08/06/2022 Office Visit Plastic Surgery Peña Woodward MD [facility] PLASTIC SURGERY [place] [id number] (Wo rk) 08/19/2022 Office Visit Podiatry Tom Titus DPM [place], [place] [address] (Wo rk) 09/08/2022 Office Visit Internal Medicine Janay Hay MD [facility] GENERAL INTERNAL MEDICINE [place], [place] [address] (Wo rk) 10/12/2059 Hospital Encounter Surgery Jim Hanley MD [facility] SPINE [facility]ENTER [place], [place] [address] (Wo rk) Scheduled Procedures Name [...] on filedocumented in this encounter Care Teams Javascript Ui Developer Relationship Specialty Start Date End Date Tom Hay MD PCP - General General Internal Medicine 09/15/18 [facility] GENERAL [place] [address] documented as of this encounter
--- OUTSIDE RECORDS SUMMARY | 2022-07-12 00:45 | XMS_ITS | Encounter Summary ---
:1965 Author Organization [facility] Address [address] [place] [address] Care Team Providers Name Role Phone Tom Hay MD Primary Care Provider Reason for Visit Reason Onset Date Comments Prior Authorization 02/06/2021 Clobetasol-Emollient Encounter Details Date Type Department Care Team Description 02/06/2021 Telephone Dermatology at [facility] [address] Authorization [address] [facility] (Clobetasol-Emollient) [address] [place] [address] Social History Tobacco Use Types Packs/Day Years [...] this encounter Miscellaneous Notes Telephone Encounter - Marcie Higuera CMA - 02/06/2021 12:03 PM EDT Medication Prior Authorization for Primary Care Approved: Clobetasol Foam Start Date: 02/06/2021 End Date: 10/11/2021 Case/Reference #: [id number] See Approval Letter in scanned documents. Additional Notes: Telephone Encounter - Mitzy Still CMA - 02/06/2021 10:36 AM EDT Medication Prior Authorization for Primary [place] [address] Request received via: Pharmacy Patient: Joseline Rose Patient : 1965 Insurance Company: [employer] Sent via: [employer] Jolly: [id number] Physician: Camilo Coffey MD Medication Requested: Clobetasol-Emollient 0.05 % Foam Frequency/Sig: Apply twice daily to worse scalp psoriasis on weekends-only as needed dispense 3 bottles please Disp: 200 g Refills: 0 Currently taking: yes If yes, how lon Diagnosis for this medication: Psoriasis (L40.9) Prior medications trialed in this patient: Medication: Clobetasol Solution Approx Dates: 7145-8001 Outcome/Adverse Reactions: inadequate response Medication: Calcipotriene solution Approx Dates: Outcome/Adverse Reactions: inadequate response Medication: Taclonex scalp Approx Dates: Outcome/Adverse Reactions: inadequate response alone Medication: Diprolene Approx Dates: Outcome/Adverse Reactions: inadequate response Additional Notes: documented in this encounter Plan of Treatment Upcoming Encounters Date Type Specialty Care Team Description 08/06/2022 Office Visit Plastic Surgery Peña Woodward MD [facility] PLASTIC SURGERY [place], [place] [address] (Wo rk) 08/19/2022 Office Visit Podiatry Tom Titus DPM [place], [place] [address] (Wo rk) 09/08/2022 Office Visit Internal Medicine Janay Hay MD [facility] GENERAL INTERNAL MEDICINE [place], [place] [address] (Wo rk) 10/12/2059 Hospital Encounter Surgery Jim Hanley MD [facility] [place], [place] [address] (Wo rk) Scheduled Procedures Name [...] on filedocumented in this encounter Care Teams Director Of Graduate Admissions Relationship Specialty Start Date End Date Tom Hay MD PCP - General General Internal Medicine 09/15/18 [facility] [place] [address] documented as of this encounter
--- OUTSIDE RECORDS SUMMARY | 2022-07-12 00:45 | XMS_ITS | Encounter Summary ---
:1965 Author Organization [facility] Address [address] [place] [address] Care Team Providers Name Role Phone Tom Hay MD Primary Care Provider Reason for Visit Reason Comments Illness patient believes illness is from her pancreas Encounter Details Date Type Department Care Team Description 07/30/2021 Office Visit Internal Medicine at Nenita Green Up per abdominal pain; [facility] MD Masha Essential hypertension; [facility], [facility] Hyp othyroidism, unspecified type; Elizabeth BELL Hyperlipidemia, unspecified hyperlipidem ia type; [place], [place] GENERAL INTERNAL Uncontrolle d type 2 diabetes mellitus with hyperglycemia; [address] MEDICINE Diarrhea, unspecified type; [phone] [place], [place] [address] Body mass index (BMI) 34.0-34.9, adult Social History Tobacco Use Types Packs/Day Years [...] Sign Reading Time Taken Comments Blood Pressure 135/85 07/30/2021 1:08 PM EDT Pulse 100 07/30/2021 1:08 PM EDT Temperature 36.8 ??C (98.3 ??F) 07/30/2021 1:08 PM EDT Respiratory Rate 16 07/30/2021 1:08 PM EDT Oxygen Saturation 98% 07/30/2021 1:08 PM EDT Inhaled Oxygen Concentration - - Weight 93 kg (205 lb) 07/30/2021 1:08 PM EDT Height 165.1 cm (5' 5) 07/30/2021 1:08 PM EDT Body Mass Index 34.11 07/30/2021 1:08 PM EDT documented in this encounter Progress Notes Nenita Green MD - 07/30/2021 1:20 PM EDT Subjective: Patient ID: Joseline Rose is a 55 y.o. female. HPI Chief Complaint Patient presents with ??? Illness patient believes illness is from her pancreas 55 year old woman here for acute visit complains of abdominal pain with eating, fatigue and cant getout of bed for 2 months, nausea, vomiting and diarrhea. ?? Pain is after she eats , epigastric and related to times when has nausea ?? Nausea is when she eats ?? Vomiting occurs after eating, afew hours after eating, last vomiting was 2 days ago. That time was pizza. ?? Has also had diarrhea continuously for 2 years, soft to watery, up to 5-6 times a day; has lost 25 pounds ?? Takes ozempic weekly for a year and stopped for a month because it made the n and vomiting worse;last time was in June ?? Had egd and colo 4 years ago at [place] - polyps and nothing else ?? Feels like when she had pancreatitis ?? Psychiatrist - Dr Crane in [place] Review of Systems See hpi Medications 07/30/21 3562 Medication Sig Taking? nystatin (Mycostatin) 100,000 unit/mL Suspension SAS 5 ML PO QID PRF THRUSH Yes albuteroL (ProAir HFA) 90 mcg/actuation HFA Aerosol Inhaler Inhale 2 puffs into the lungs every 4 hours as needed for Wheezing. Use with spacer Yes meclizine (Antivert) 25 mg Tablet Take 1 tablet by mouth 3 times daily as needed. Yes metoclopramide (REGLAN) 5 mg Tablet Take 1 tablet by mouth 4 times daily. Yes Clobetasol-Emollient 0.05 % Foam Apply twice daily to worse scalp psoriasis on weekends-only as needed dispense 3 bottles please Yes pregabalin (Lyrica) 75 mg Capsule Take 1 capsule by mouth 2 times daily. Yes fluorouraciL (EFUDEX) 5 % Cream Apply thin layer to affected site as directed once daily. Yes methocarbamoL (ROBAXIN) 750 mg Tablet Take 1 tablet by mouth 3 times daily as needed. Yes zqcgukijqic-kfvayugwc-dwxocphj (Trelegy Ellipta) 100-62.5-25 mcg Disk with Device Inhale 1 Inhalation into the lungs daily. Yes DULoxetine DR (Cymbalta) 60 mg Capsule, Delayed Release(E.C.) Take 1 capsule by mouth daily. Yes glipiZIDE (Glucotrol) 5 mg Tablet Take 1 tablet by mouth daily. Yes esomeprazole (NexIUM) 40 mg Capsule, Delayed Release(E.C.) Take 1 capsule by mouth 2 times daily. Yes semaglutide 1 mg/dose (2 mg/1.5 mL) Pen Injector Inject 1 mg subcutaneously once a week. Yes amLODIPine (Norvasc) 10 mg Tablet Take 1 tablet by mouth daily. Yes atorvastatin (Lipitor) 20 mg Tablet Take 1 tablet by mouth daily. Yes cholecalciferol, Vitamin D3, 1,250 mcg (50,000 unit) Capsule Take 1 capsule by mouth once a week. Yes levothyroxine (Synthroid) 150 mcg Tablet Take 2 tablets by mouth daily. Take in addition to the 25mcg to equal 325mcg Yes levothyroxine (Synthroid) 25 mcg Tablet Take 1 tablet by mouth daily. Yes ipratropium-albuteroL (DUONEB) 0.5 mg-3 mg(2.5 mg base)/3 mL Solution for Nebulization Take 0.5 mg by nebulization 4 times daily. Yes naratriptan (Amerge) 2.5 mg Tablet Take 1 tablet by mouth as needed for Migraine. if returns or doesnot resolve, may repeat once after 4 hours Yes hydroCHLOROthiazide (Hydrodiuril) 50 mg Tablet Take 1 tablet by mouth daily. Yes cycloSPORINE (Restasis) 0.05 % Dropperette Place 1 drop into both eyes every 12 hours. Yes varenicline (Chantix) 1 mg Tablet Take 1 tablet by mouth daily. Yes clotrimazole (MYCELEX) 10 mg Gary DIS 1 MOLLY PO TID Yes Calcipotriene 0.005 % Solution as needed. Yes estradiol (ESTRACE) 0.01 % (0.1 mg/gram) Cream Place vaginally as needed. Yes ondansetron (ZOFRAN) 4 mg Tablet Take 1 tablet by mouth every 8 hours as needed for Nausea. Yes fluticasone (VERAMYST) 27.5 mcg/actuation [place], Suspension 2 sprays by Nasal route daily. Indications: Allergic Rhinitis Yes ALPRAZolam (XANAX) 1 mg tablet Take 1 mg by mouth 3 times daily as needed. Yes aripiprazole (ABILIFY) 30 mg tablet Take 30 mg by mouth daily. Yes sucralfate (Carafate) 100 mg/mL Suspension Take 10 mLs by mouth 4 times daily. ondansetron ODT (Zofran ODT) 4 mg Tablet, Rapid Dissolve Take 1-2 tablets by mouth every 8 hours as needed for Nausea. betamethasone-calcipotriene (TACLONEX SCALP) 0.005-0.064 % Suspension Apply twice daily for 5 days out of the week mupirocin (BACTROBAN) 2 % Cream Apply topically 3 times daily. Ok to sub ointment if cream not covered valACYclovir (VALTREX) 1 gram Tablet Take 1 tablet by mouth 2 times daily. blood sugar diagnostic strips Strip Use as instructed to check BG 4 times daily. (Freestyle Lite)DX code E11.9 IDD Crystal Pen Needle 32 gauge x 5/32 Needle Inject 1 each subcutaneously 4 times daily. pen needle, diabetic (NovoTwist) 32 gauge x 1/5 Needle 1 each by [facility].(Non- Drug; Combo Route) route4 times daily as needed. Novotwist needle ICD E11.9 NIDD BD Alcohol Swabs Pads, Medicated 1 each 4 times daily. Vitamin D 25 mcg (1,000 unit) Tablet Take 2 tablets by mouth daily. blood-glucose meter (FREESTYLE) Kit 1 each by [facility].(Non-Drug; Combo Route) route as needed for Other. lancets (FreeStyle Lancets) 28 gauge [facility] Dx E11.9 IDD please test 4x/day with lancets Indications: diabetes mellitus vitamin with fvgwjwdf-Qm-Tidu-FA Tablet Take 1 tablet by mouth daily. metroNIDAZOLE (METROCREAM) 0.75 % Cream Apply topically 2 times daily. Objective: Physical Exam Constitutional: Comments: Appears well, comfortable HENT: Right Ear: Tympanic membrane normal. Left Ear: Tympanic membrane normal. Mouth/Throat: Mouth: Mucous membranes are moist. Eyes: General: No scleral icterus. Cardiovascular: Rate and Rhythm: Normal rate and regular rhythm. Pulses: Normal pulses. Pulmonary: Effort: Pulmonary effort is normal. Breath sounds: No wheezing or rales. Abdominal: Palpations: Abdomen is soft. Tenderness: There is no abdominal tenderness. Comments: Palpable liver edge, non enlarged Musculoskeletal: Right lower leg: No edema. Left lower leg: No edema. Lymphadenopathy: Cervical: No cervical adenopathy. BP 135/85 (BP Location (NBP): Left arm, Patient Position: Sitting, BP Cuff Sizes: Adult (25-34 cm)) Pulse 100 Temp 36.8 ??C (98.3 ??F) (Oral) Resp 16 Ht 165.1 cm (5' 5) Wt 93 kg (205 lb) SpO2 98% BMI 34.11 kg/m?? Wt Readings from Last 3 Encounters: 07/30/21 93 kg (205 lb) 02/13/21 88 kg (194 lb) 02/13/21 88 kg (194 lb) BP Readings from Last 3 Encounters: 07/30/21 135/85 02/13/21 145/89 02/13/21 129/80 Assessment and Plan: Joseline was seen today for illness. Diagnoses and all orders for this visit: Upper abdominal pain - Continue ppi, add sucralfate, follow up may need egd - Lipase; Future; Expected date: 07/30/2021 - Comprehensive metabolic panel (non-fasting); Future; Expected date: 07/30/2021 - CBC (with Diff); Future; Expected date: 07/30/2021 - sucralfate (Carafate) 100 mg/mL Suspension; Take 10 mLs by mouth 4 times daily. Essential hypertension - Fair control today - Amlodipine 10, hctz 50 Hypothyroidism, unspecified type - LT 175, check tsh - TSH [place]; Future; Expected date: 07/30/2021 Hyperlipidemia, unspecified hyperlipidemia type - On atorva 20 - Lipid Panel (Reflex Direct LDL); Future; Expected date: 07/30/2021 Uncontrolled type 2 diabetes mellitus with hyperglycemia - Glipizide 5 - Hemoglobin A1c; Future; Expected date: 07/30/2021 - U Albumin/Cre Ratio; Future; Expected date: 07/30/2021 Diarrhea, unspecified type - Vitamin D, 25-Hydroxy; Future; Expected date: 07/30/2021 - Vitamin B12; Future; Expected date: 07/30/2021 - Magnesium; Future; Expected date: 07/30/2021 Body mass index (BMI) 34.0-34.9, adult - Vitamin D, 25-Hydroxy; Future; Expected date: 07/30/2021 Return in about 6 weeks (around 09/10/2021) for 40 min follow up janelle. Future Appointments Date Time Provider Department Center 09/18/2021 4:00 PM Nenita Green MD [facility] documented in this encounter Plan of Treatment Upcoming Encounters Date Type Specialty Care Team Description 08/06/2022 Office Visit Plastic Surgery Peña Woodward MD [facility] PLASTIC SURGERY [place], [place] [address] (Wo rk) 08/19/2022 Office Visit Podiatry Tom Titus DPM [place], [place] [address] (Wo rk) 09/08/2022 Office Visit Internal Medicine Janay Hay MD [facility] GENERAL INTERNAL MEDICINE [place], [place] [address] (Wo rk) 10/12/2059 Hospital Encounter Surgery Jim Hanley MD [facility] SPINE CENTER [place], [place] [address] (Wo rk) Scheduled Procedures [...] Name Priority Date/Time Associated Diagnosis Comme nts HC THYROID STAT 07/30/2021 2:47 Hypothyroidism, Results f or this STIMULATING HORMONE, PM EDT unspecified type pro cedure are in SERUM the results section. HEMOGRAM STAT 07/30/2021 2:47 Upper abdominal pain Resu lts for this PM EDT procedure are i n the results section. DIFFERENTIAL, STAT 07/30/2021 2:47 Upper abdominal pain Res ults for this AUTOMATED PM EDT procedure are i n the results section. HC VITAMIN D TOTAL-25 STAT 07/30/2021 2:47 Diarrhea, unspec ified Results for this HYDROXY PM EDT type procedure are in Body mass index (BMI) the re sults 34.0-34.9, adult section. HC CBC,PLT & AUTO STAT 07/30/2021 2:47 Upper abdominal pain DIFF PM EDT HC VENIPUNCTURE Routine 07/30/2021 2:47 Diarrhea, unspecified Results for this PM EDT type procedure are i n the results section. HC LIPASE Routine 07/30/2021 2:47 Upper abdominal pain Resu lts for this PM EDT procedure are i n the results section. HC HEMOGLOBIN A1C STAT 07/30/2021 2:47 Uncontrolled type 2 Results for this PM EDT diabetes mellitus with proce dure are in hyperglycemia the results section. HC VITAMIN B12 SERUM Routine 07/30/2021 2:47 Diarrhea, unspeci fied Results for this PM EDT type procedure are i n the results section. LIPID PANEL (REFLEX STAT 07/30/2021 2:47 Hyperlipidemia, Re sults for this DIRECT LDL) PM EDT unspecified procedure are i n hyperlipidemia type the resu lts section. COMPREHENSIVE STAT 07/30/2021 2:47 Upper abdominal pain Res ults for this METABOLIC PANEL PM EDT procedure ar e in (NON-FASTING) the results section. HC CREATININE - NON Routine 07/30/2021 2:39 Uncontrolled type 2 Results for this BLOOD PM EDT diabetes mellitus with proce dure are in hyperglycemia the results section. documented in this encounter Results (ABNORMAL) Differential, Automated (07/30/2021 2:47 PM EDT) [facility] Method Time Signature Neutrophils % 66.7 % [facility] Neutr Abs (ANC) 7.44 (H) 1.70 - [facility] 6.10 [facility] x10(3)/[facility] LABORATORY Lymphocytes % 24.0 % [facility] Lymphocytes Abs 2.7 0.9 - 3.2 [facility] x10(3)/[facility] LABORATORY Monocytes % 6.0 % [facility] Monocyte Abs 0.7 0.3 - 0.9 [facility] x10(3)/[facility] LABORATORY Eosinophils % 2.1 % [facility] Eosinophils Abs 0.2 0.0 - 0.4 [facility] x10(3)/[facility] LABORATORY Basophils % 0.6 % [facility] Basophils Abs 0.1 0.0 - 0.1 [facility] x10(3)/[facility] LABORATORY Immature Gran % 0.60 % [facility] Comment: Immature granulocytes(IG's)percentage an d absolute count will include metamyelocytes, myelocytes, and promyelo cytes. Blood smears from CBCs yielding IG's will be scanned manually for concor dance. If this scan disagrees with the automated IG or if promyelocytes are not ed, a manual differential will be performed. [place] Gran Abs 0.07 (H) 0.00 - 0.04 x10(3)/[facility] LABORATORY Specimen Anatomical Collection Method Collection Time Receive d Time (Source) Location / / Volume Laterality Blood 07/30/2021 2:47 PM 2:54 EDT PM EDT Resulting Agency Comment Spec In Lab Nenita Green MD HEMATOLOGY ORDERABLES Performing Organization Address City/State/[place] [address] (ABNORMAL) Hemogram (07/30/2021 2:47 PM EDT) Analysis Performed At Patho logist Time Signature WBC 11.2 (H) 4.0 - 9.5 [facility] x10(3)/[facility] LABORATORY RBC 4.96 4.00 - [place] 5.21 [facility] x10(6)/[facility] LABORATORY Hemoglobin 15.3 11.7 - [facility] 15.5 g/dL [facility]ORY Hematocrit 44.6 35.7 - [facility] CHANDA 45.8 % [facility]ORY MCV 89.9 82.6 - [facility] 94.4 [facility] LABORATORY MCH 30.8 27.1 - [facility] 32.[address] [facility] LABORATORY MCHC 34.3 31.7 - [place] [place]DA 35.0 g/dL [facility] LABOR[facility]ORY Platelets 283 145 - 357 [facility] x10(3)/[facility] LABORATORY RDWSD 40.1 37.0 - [place] [place]ANDA 46.0 [facility] LABORATORY RDWCV 12.3 11.5 - [facility] [place] 14.1 % [facility] LABORATORY MPV 10.0 7.6 - 12.9 [facility] LABORATORY nRBC % Auto 0.0 % [facility] nRBC Abs Auto 0.000 0.000 - [facility] Tivra 0.000 [facility] x10(3)/[facility] LABORATORY Specimen Anatomical Collection Method Collection Time Receive d Time (Source) Location / / Volume Laterality Blood 07/30/2021 2:47 PM 2:54 EDT PM EDT Resulting Agency Comment Spec In Lab Nenita Green MD HEMATOLOGY ORDERABLES Performing Organization Address City/State/[place] [address] Magnesium (07/30/2021 2:47 PM EDT) P athologist Signature Magnesium 0.70 0.69 - 1.07 [facility] mmol/L [facility] Specimen Anatomical Collection Method Collection Time Receive d Time (Source) Location / / Volume Laterality Blood 07/30/2021 2:47 PM 2:54 EDT PM EDT Resulting Agency Comment Spec In Lab Nenita Green MD CHEMISTRY ORDERABLES Performing Organization Address City/State/[place] [address] Lipid Panel (Reflex Direct LDL) (07/30/2021 2:47 PM EDT) athologist Signature Chol, Total 234 mg/dL [facility] Comment: Lower Risk: <200 mg/dL Average Risk: 200-239 mg/dL Higher Risk: >ie=925 mg/dL Triglycerides 327 mg/dL [facility] Comment: Average Risk/Lower Risk: <150 mg/dL Borderline High Risk: 150-199 mg/dL High Risk: 200-499 mg/dL Very High Risk: >dj=889 mg/dL HDL 48 mg/dL [facility] Comment: Males: ?? Higher Risk: <40 mg/dL Females: ?? Higher Risk: <50 mg/dL LDL Cholesterol 121 mg/dL [facility] Comment: Lowest Risk: <100 mg/dL Lower Risk: 100-129 mg/dL Borderline High Risk: 130-159 mg/dL High Risk: 160-189 mg/dL Very High Risk: >db=710 mg/dL Chol/HDL Ratio 4.9 ratio [facility] Lipid Interpretation See Note [facility] Comment: Lipid management should be guided by a p atient? s ASCVD risk, goals and preferences. ACC/AHA Guidelines recommend high intens ity statin if clinical ASCVD or LDL greater than or equal to 190 mg/dL. http://tinyurl.com/JCX-TJU-Dvpumzfgd Adults aged 40-75 with LDL 70-189 mg/dL should have their 10 year ASCVD risk estimated with the ACC/AHA ASCVD risk es timator http://tools.acc.org/DELMM-Myjt-Ikpgnyuh r/ Statin should be discussed if risk great er than or equal to 7.5% in non-diabetics. With diabetes, moderate i ntensity statin is recommended if risk less than 7.5%, high intensity if risk g reater than or equal to 7.5%. Annual lipid monitoring on statins is no t necessary. Evaluate secondary causes of Triglycerid es greater than 500 mg/dL or LDL greater than 190 mg/dL: See table 6 of A CC/AHA Guideline. Lifestyle modification is a critical com ponent of ASCVD risk reduction. Specimen Anatomical Collection Method Collection Time Receive d Time (Source) Location / / Volume Laterality Blood 07/30/2021 2:47 PM 1 2:54 EDT PM EDT Resulting Agency Comment Spec In Lab Nenita Green MD CHEMISTRY ORDERABLES Performing Organization Address [facility] Phon e Number [address] TSH [place] (07/30/2021 2:47 PM EDT) P athologist Signature TSH 2.09 0.27 - 4.20 [facility] CH[place]ALCK mcIU/mL [facility] Comment: Reference Interval (mcIU/mL): Females: ??First Trimester: 0.23-3.88 ??Second Trimester: 0.22-3.90 ??Third Trimester: 0.44-4.66 Specimen Anatomical Collection Method Collection Time Receive d Time (Source) Location / / Volume Laterality Blood 07/30/2021 2:47 PM 1 2:54 EDT PM EDT Resulting Agency Comment Spec In Lab Nenita Green MD CHEMISTRY ORDERABLES Performing Organization Address City/[facility]/[place]IP [place] [address] Vitamin B12 (07/30/2021 2:47 PM EDT) P athologist Signature Vitamin B-12 419 232 - 1,245 [facility] ARMAS pg/mL [facility]ORY Specimen Anatomical Collection Method Collection Time Receive d Time (Source) Location / / Volume Laterality Blood 07/30/2021 2:47 PM 1 2:54 EDT PM EDT Resulting Agency Comment Spec In Lab Nenita Green MD CHEMISTRY ORDERABLES Performing Organization Address City/[facility] [place] [address] (ABNORMAL) Vitamin D, 25-Hydroxy (07/30/2021 2:47 PM EDT) Patholo gist Method Time Signature 25-OH Vit D 17 (L) 21 - 100 [facility] Total ng/mL [facility] LABORATORY 25-OH Vit D Deficient [facility] LABORATORY Specimen Anatomical Collection Method Collection Time Receive d Time (Source) Location / / Volume Laterality Blood 07/30/2021 2:47 PM 2:54 EDT PM EDT Resulting Agency Comment Spec In Lab Nenita Green MD CHEMISTRY ORDERABLES Performing Organization Address City/[facility]/[place] [address] (ABNORMAL) Hemoglobin A1c (07/30/2021 2:47 PM EDT) Analysis Performed At [facility] logist Time Signature Hemoglobin A1C 9.6 (H) 4.3 - 5.6 [facility] Comment: Reference Range: 4.3 - [...] 36: Suppl. 1, S67-74 Est Avg Gluc 229 mg/dL [facility] Comment: eAG equivalents for HbA1c percentages: HbA1c(%) ?eAG(mg/dL) 6.0 ?126 6.5 ?140 7.0 ?154 7.5 ?169 8.0 ?183 8.5 ?197 9.0 ?212 9.5 ?226 10.0 ? 240 Limitations: The eAG calculation has not been validated on women, individuals below 18 years old and above 70 years old, and individuals with hemoglobinopathies. Additional resources are available on [facility] ADA website. Steve CHAO, Bhumi J, Kay R, et al. ??Tr anslating the A1C assay into estimated average glucose values. ??Diabetes Care 2008:31(8):2330-1776. Specimen Anatomical Collection Method Collection Time Receive d Time (Source) Location / / Volume Laterality Blood 07/30/2021 2:47 PM 2:54 EDT PM EDT Resulting Agency Comment Spec In Lab Nenita Green MD CHEMISTRY ORDERABLES Performing Organization Address City/State/[place] [address] (ABNORMAL) Comprehensive metabolic panel (non-fasting) (07/30/2021 2:47 PM EDT) P athologist Signature Glucose Lvl 272 (H) 65 - 199 [facility] mg/dL [facility] Comment: Diabetes: >=200 mg/dL plus symp toms BUN 13 8 - 18 mg/dL [facility] Creatinine 0.68 (L) 0.70 - 1.20 mg/dL [facility] Sodium 138 135 - 145 mmol/L [facility] Potassium 4.3 3.5 - 5.0 mmol/L [facility] Comment: Please note: ??Patients with WBC >100,00 0 may have falsely elevated Potassium levels. ??For accurate Potassium quantif ication in these patients send serum separator tube (gold top) for subsequent determinations. ??Contact the Clinical Chemistry Laboratory if there are any qu estions. Chloride 100 98 - 107 mmol/L [facility] CO2 28 22 - 31 mmol/L [facility] Anion Gap 10 5 - 15 mmol/L [facility] Calcium 9.4 8.5 - 10.5 mg/dL [facility] Total Protein 6.9 6.1 - 8.0 g/[facility] Albumin 4.2 3.2 - 5.2 g/dL [facility] AST 6 0 - 30 unit/L [facility] ALT 17 0 - 30 unit/L [facility] Alk Phos 91 35 - 105 unit/L [facility] Total Bilirubin 0.2 0.2 - 1.3 mg/dL [facility] Comment: rechecked-ds Estimated GFR 100 >=60 mL/min/1.73 m?? [facility] Comment: This patient? s estimated glomerular filtration rate (eGFR) is between 100 mL/min/1.73 m2 (patients with less muscl e mass) and 116 mL/min/1.73 m2 (patients with more muscle mass) as dete rmined by the CKD-EPI equation. Assessment of eGFR is not appropriate wh en creatinine concentrations are rapidly changing. For clinical decisions where creatinine clearance will affect therapy, a 24-hour urine creatinine devika elizabeth may be advised. Assignment of CKD stage 1 - 5 for patien ts with an eGFR near the transition point between stages may be based on cli nical assessment of muscle mass and symptoms in addition to eGFR. Specimen Anatomical Collection Method Collection Time Receive d Time (Source) Location / / Volume Laterality Blood 07/30/2021 2:47 PM 2:54 EDT PM EDT Resulting Agency Comment Spec In Lab Nenita Green MD CHEMISTRY ORDERABLES Performing Organization Address City/State/[place] [address] Lipase (07/30/2021 2:47 PM EDT) athologist Signature Lipase 32 0 - 60 [facility] unit/L [facility] Specimen Anatomical Collection Method Collection Time Receive d Time (Source) Location / / Volume Laterality Blood 07/30/2021 2:47 PM 1 2:54 EDT PM EDT Resulting Agency Comment Spec In Lab Nenita Green MD CHEMISTRY ORDERABLES Performing Organization Address City/[facility]/ZIP Code Phon e Number [place] [id number] U Albumin/Cre Ratio (07/30/2021 2:39 PM EDT) athologist Signature Alb/Cr Ratio, 14 0 - 29 [facility] Random mcg/mg Cr [facility] [facility] Comment: Reference Ranges: <30 mcg/mg: Normal [...] 2, 357? 362 U Albumin Conc, Random 13.2 mg/L [facility] U Creatinine 94 mg/dL [facility] Specimen Anatomical Collection Method Collection Time Receive d Time (Source) Location / / Volume Laterality Urine 07/30/2021 2:39 PM 1 2:47 EDT PM EDT Resulting Agency Comment Spec In Lab Nenita Green MD URINE ORDERABLES Performing Organization Address City/[facility]/ZIP [place] [address] documented in this encounter Visit Diagnoses Diagnosis Upper abdominal pain Abdominal pain, other specified site Essential hypertension Unspecified essential hypertension Hypothyroidism, unspecified type Hyperlipidemia, unspecified hyperlipidem ia type Uncontrolled type 2 diabetes mellitus wi th hyperglycemia Diarrhea, unspecified type Body mass index (BMI) 34.0-34.9, adult documented in this encounter Care Teams Fire Claims Adjuster Relationship Specialty Start Date End Date Tom Hay MD PCP - General General Internal Medicine 09/15/18 [facility] [place] [address] documented as of this encounter
--- OUTSIDE RECORDS SUMMARY | 2022-07-12 00:45 | XMS_ITS | Encounter Summary ---
:1965 Author Organization [facility] [place] [address] Care Team Providers Name Role Phone Tom Hay MD Primary Care Provider Reason for Referral Consultation (Routine) - Closed Specialty Diagnoses / Procedures Referred By Contact Refer red To Contact Gastroenterology Diagnoses Gastroesophageal reflux disease with esophagitis without hemorrhage Weight loss of more than 10% body weight Ana Chery MD [facility] Endoscopy [address] [address] Referral ID Status Reason Start Date Expiration Date Visits V isits Requested Authorized [id number] Closed Test Only 02/13/2021 02/13/2022 1 1 Consultation (Urgent) - Closed Specialty Diagnoses / Procedures Referred By Contact Refer red To Contact Gastroenterology Diagnoses Gastroesophageal reflux disease with esophagitis without hemorrhage Weight loss of more than 10% body weight severe reflux, Bloody D, N, V with significant weight loss; needs endoscopy and colonoscopy Ana Chery MD [facility] Gastro [address]l [address] [address] Phone: Fax: Referral ID Status Reason Start Date Expiration Date Visits V isits Requested Authorized [id number] Closed Consult, 02/13/2021 02/13/2022 1 1 Test & Treat Reason for Visit Reason Comments Covid Surge from GIM for r/o Diarrhea Fever Emesis Encounter Details Date Type Department Care Team Description 02/13/2021 Emergency Emergency Department Ana Chery roesophageal reflux disease with esophagitis without hemorrhage; Mehreen Moreland MD Charleen-Liu tear; [facility] nausea and vomiti ng; [facility] CENTER Diarrhea, unspecified type; Drive EMERGENCY Weight loss of more than 10% body weight [place], [place] MEDICINE [id number] [place] [address] [phone] Social History Tobacco Use Types Packs/Day Years [...] to sleep or slept in a senior living (including now)? Sex Assigned at Date Recorded Not on file documented as of this encounter Last Filed Vital Signs Vital Sign Reading Time Taken Comments Blood Pressure 145/89 02/13/2021 6:00 PM EDT Pulse 95 02/13/2021 6:00 PM EDT Temperature 36.9 ??C (98.4 ??F) 02/13/2021 3:00 PM EDT Respiratory Rate - - Oxygen Saturation 96% 02/13/2021 6:00 PM EDT Inhaled Oxygen Concentration - - Weight 88 kg (194 lb) 02/13/2021 1:53 PM EDT Height - - Body Mass Index 32.28 02/13/2021 11:38 AM EDT documented in this encounter Discharge Instructions Discharge InstructionsDilia Tate MD - 02/13/2021 6:51 PM EDT You were seen for severe GERD and diarrhea. Please follow up with your PCP in 3- 5 days regarding your new prescription for GERD and for evaluation of your symptoms. A GI referral has been placed for endoscopy and colonoscopy to evaluate your GERD, nausea and vomiting, and diarrhea. Please return to the ED if: You have episodes of vomiting blood You feel confused. Your heartbeat is faster than usual. Your eyes look deeply sunken, or you have no tears when you cry. You urinate less than usual, or your urine is dark yellow. You have blood or mucus in your bowel movements. You have severe abdominal pain. You are unable to drink any liquids. AttachmentsThe following attachments cannot be sent through Care Everywhere. Diarrhea (Congolese)GERD (Congolese)documented in this encounter Medications at Time of Discharge Medication Sig Dispensed Refills Start Date End Date metoclopramide (REGLAN) 5 Take 1 tablet by 80 tablet 0 02/2021 mg TabletIndications: mouth 4 times daily. Refractory nausea and vomiting methocarbamoL (ROBAXIN) Take 1 tablet by 30 tablet 0 2020 750 mg TabletIndications: mouth 3 times daily Cervical radicular pain as needed. blood sugar diagnostic Use as instructed to 300 each 3 strips StripIndications: check BG 4 times Controlled type 2 daily. ([facility] diabetes mellitus without Lite)DX code E11.9 complication, unspecified IDD whether chcf insulin use Vitamin D 25 mcg (1,000 [...] may repeat once after 4 hours lancets ([facility]9 IDD please 125 each 11 [...] 2 sprays by Nasal 0 27.5 mcg/actuation [place], route daily. SuspensionIndications: Indications: allergic rhinitis Allergic Rhinitis pantoprazole EC Take 2 tablets by 60 tablet 0 02/13/2021 (Protonix) 20 mg Tablet, mouth daily for 30 1 Delayed Release (E.C.) days. ondansetron ODT (Zofran Take 1-2 tablets by 12 tablet 1 02/2021 ODT) 4 mg Tablet, Rapid mouth every 8 hours 1 Dissolve as needed for Nausea. Clobetasol-Emollient 0.05 [...] mouth 2 times daily. 2 Oral lesion sfkbqguynce-jggwwoiec-iiy Inhale 1 Inhalation 60 each 3 0 10/26/2020 anter (Trelegy Ellipta) into the lungs 2 100-62.5-25 mcg Disk with daily. Device Crystal Pen Needle 32 gauge Inject 1 each 400 each 3 10/26/19 21 x 5/32 Needle subcutaneously 4 2 times daily. pen needle, diabetic 1 each by 100 each 5 10/26/2020 02/09 (NovoTwist) 32 gauge x Misc.(Non-Drug; 2 10/16 Needle Combo Route) route 4 times daily as needed. Nov[employer]wist needle ICD E11.9 NIDD DULoxetine (Cymbalta) Take 1 capsule by 90 capsule [...] vitamin with Take 1 tablet by 0 mfmzmfiq-Rm-Nwqk-FA mouth daily. 2 Tablet metroNIDAZOLE Apply topically 2 45 g 5 10/29/201802/09 (METROCREAM) 0.75 % Cream times daily. 2 ALPRAZolam (XANAX) 1 mg Take 1 mg by mouth 3 0 tablet times daily as 2 needed. ARIPiprazole (Abilify) 30 Take 30 mg by mouth 0 mg Tablet daily. 2 documented as of this encounter ED Notes Dilia Tate MD - 02/13/2021 1:55 PM EDT ED Resident Note HPI: Joseline Rose is a 55 y.o. female who presents to the Emergency Department complaining of nausea, vomiting, and diarrhea ongoing for three weeks. She has a history of GERD, on omeprazole, but was not taking her medication prior to the onset of symptom. She describes the vomiting as copious, burning, occasionally having bright red blood and is foamy in character. She reports a 5 day period of constipation followed by diarrhea for the same period of time. She used pepto bismol heavily, which helpwith her symptoms, but was told to stop by another clinician. She reports dark red blood clots in her stools, intermittently. More recently, she describes her stool as being covered in oil. She has a history of external hemorrhoids and states the blood is not the same in character as with her hemorrhoidal bleeding. She has been unable to eat, difficulty keeping both solids and liquids down, and has lost 24lbs over three weeks. She had one episode of fever, 3 days ago, to 103.4. She states she has abdominal pain that is caused by the frequent vomiting. This is her third ER visit for these symptoms, two previous visits to [facility], where a CT abdomen/pelvis was done forconcerns for pancreatitis, per the patient this was normal. She was on antibiotics for UTI in January and had neck surgery in November. No recent travel or exposure to potentially unclean water. No lightheadedness, weakness, fatigue, sob. Pt was seen under the supervision of an attending physician. Review of Systems Pertinent positives and negatives are included in the HPI, otherwise at least ten systems were reviewed and negative. Past Medical and Surgical Histories, Social History, Medications, Allergies were reviewed in the chart. Vitals: ED Triage Vitals BP: n/a Pulse: n/a Resp: n/a Temp: n/a Temp src: n/a SpO2: n/a O2 Device: n/a O2 Flow Rate (L/min): n/a Physical Exam GEN: Alert and conversant, no acute distress. HEENT: Normocephalic, atraumatic. PERRLA, EOMI. Oropharynx clear, pink, and moist, without discharge. PULM: Clear to auscultation bilaterally, no wheezes, rales, or rhonchi. CV: Regular rate and rhythm, no murmurs, rubs, or gallups. ABD: Soft, non-distended, non-tender. No rigidity, rebound, or guarding. MSK: All four extremities without obvious deformity. : Non-bleeding external hemorrhoids. NEURO: AAOx3. No gross CN deficits. Moves extremities equally. PSYCH: Appropriate behavior, affect, and thought pattern. SKIN: No visible rashes or wounds. ED Course: I have reviewed labs and imaging, images and available reports, and they are significant for: Recent Results (from the past 12 hour(s)) COVID-19 PCR Specimen: Nasopharyngeal Swab Symptoms->COVID-19 Suspected Result Value Rapid SARS-CoV-2 RNA Not Detected SARS-CoV-2 Source NEWSPAPER REPORTER Swab Basic Metabolic Panel (non-fasting) Result Value Glucose Lvl 190 BUN 8 Creatinine 0.68 (L) Sodium 139 Potassium 3.6 Chloride 103 CO2 25 Anion Gap 11 Calcium 9.4 Estimated GFR 100 Hemogram Result Value WBC 10.2 (H) RBC 4.87 Hemoglobin 14.6 Hematocrit 44.0 MCV 90.3 MCH 30.0 MCHC 33.2 Platelets 336 RDWSD 39.4 RDWCV 11.9 MPV 10.0 nRBC % Auto 0.0 nRBC Abs Auto 0.000 Differential, Automated Result Value Neutrophils % 58.0 Neutr Abs (ANC) 5.91 Lymphocytes % 31.7 Lymphocytes Abs 3.2 Monocytes % 6.6 Monocyte Abs 0.7 Eosinophils % 2.4 Eosinophils Abs 0.2 Basophils % 0.8 Basophils Abs 0.1 Immature Gran % 0.50 Sunshine Gran Abs 0.05 (H) Blue Tube HOLD Result Value Blue Hold Sample in lab. Gold Tube HOLD Result Value Gold Hold Sample in lab. Urinalysis with reflex Culture Specimen: Clean Catch Urine Result Value Glucose UA Negative Protein UA Negative Bilirubin UA Negative Urobilinogen UA Normal pH UA 6.0 Blood UA Negative Ketones UA Negative Nitrite UA Negative Leukocytes UA Negative Appearance UA Clear Spec Fletcher UA 1.017 Color UA Yellow Culture Reflexed No No orders to display Procedures Assessment and Plan: 55 y.o. female with 3 week history of dyspepsia and diarrhea. Patient reporting severe reflux after stopping her home omeprazole for one week, no improvement of symptoms with resumption 2 weeks ago. Has had significant weight loss. Labs normal. Presented tachycardic, afebrile, COVID negative. Given a fluid bolus with good response. Symptomatic control with zofran and protonix, home prescriptions given. On going diarrhea could be related to upper GI bleed, IBS, C.diff. Stool sample to be collected outpatient. GI consult placed for endoscopy and colonoscopy. Patient feels comfortable going home with close follow up with her PCP. Will [place] [facility] if she does not hear from them by Thursday. The visit findings, diagnosis, and care plan were discussed with the patient. The diagnosis and care plans discussions were outlined in the discharge instructions. The patient expressed understanding of the details of the visit, the return precautions and that she should return to the ER at any time for worsening symptoms, new symptoms, or other concerns. she agrees with the follow- up plan. Dilia Tate MD Resident 02/13/211917 Associated attestation - Ana Chery MD - 02/15/2021 12:20 AM EDT EMERGENCY ATTENDING NOTE I have independently performed the acosta portions of the history and physical exam.. Pertinant ROS performed as documented in resident note. My physical examination confirms the resident's findings. Nursing notes, vital signs, diagnostic studies, including EKG and imaging, and medical records have been ann-marie villalba personally. I have concurrently managed this patient with the resident above. The assessmentand plan were formulated in discussion with me at the time of the visit. I have reviewed the note and agree with the documentation, except where I have noted differently in my note/attestation. Please see for details of History (PMH/MEDS/ALLS/SOC/FAM/ROS), physical exam, diagnostic studies, assessmentand plan. Ana Chery MD - 02/13/2021 1:15 PM EDT ED PROVIDER NOTE Patient: Joseline Rose Age (): 55 y.o. (1965) SUBJECTIVE CC: N, V, D, severe reflux with dyspepsia and blood streaking emesis, weight loss HPI: Joseline Rose is a 55 y.o. female with PMH significant for who presented to the ED for N, V, D,severe reflux with dyspepsia and blood streaking emesis, weight loss Vomiting acid burning throat x 3 weeks, associated with Nausea. Hx GERD Omeprazole daily, hadn't taken for a week recently, symptoms started when not taking, resumed retaking 1 week into symptoms , 2 weeks ago taking twice a day. NO improvement. Copious emesis with retching gets streaking blood (charleen liu), burning. 3rd ED visit in 3 [address] [facility]. rehydrated, antiemetics, CT abd and pelvis normal, normal pancreas, labs normal. Restarted omeprazole. Initially took pepto bismol Drinks soda, no diet changes, except poor eating, 24# weight loss over 3 weeks No Night sweats, had a home temp of 103.4 3 nights ago, never again. Normal TSH recently. endoscopy done 3-4 yrs ago, negative Colonoscopy negative by patient report age 52 Also initially constipation x 5 days, now diarrhea daily, large volumes, dark color - brown, some blood clots, maroon. Hx external hemorrhoids which shawna differently. Stool Is oily, some floats. Malodorous. No hiking, camping, water exposure. Drinks city and bottled water History was obtained from the patient and medical record. Hx: PMH, PSH, SH, and FH reviewed. Past Medical History: Diagnosis Date ??? Allergy [...] r/t neck, has vertigo treated with meclizine No current facility-administered medications on file prior to encounter. Current Outpatient Medications on File Prior to Encounter Medication Sig Dispense Refill ??? metoclopramide (REGLAN) 5 mg Tablet Take 1 tablet by mouth 4 times daily. 80 tablet 0 ??? Clobetasol-Emollient 0.05 % Foam Apply twice daily to worse scalp psoriasis on weekends-only as needed dispense 3 bottles please 200 g 0 ??? betamethasone-calcipotriene (TACLONEX SCALP) 0.005-0.064 % Suspension Apply twice daily for 5 days out of the week 120 g 3 ??? pregabalin (Lyrica) 75 mg Capsule Take 1 capsule by mouth 2 times daily. 60 tablet 3 ??? mupirocin (BACTROBAN) 2 % Cream Apply topically 3 times daily. Ok to sub ointment if cream not covered 15 g 1 ??? fluorouraciL (EFUDEX) 5 % Cream Apply thin layer to affected site as directed once daily. 40 g 0 ??? valACYclovir (VALTREX) 1 gram Tablet Take 1 tablet by mouth 2 times daily. 30 tablet 3 ??? methocarbamoL (ROBAXIN) 750 mg Tablet Take 1 tablet by mouth 3 times daily as needed. 30 tablet 0 ??? blood sugar diagnostic strips Strip Use as instructed to check BG 4 times daily. (Freestyle Lite)DX code E11.9 IDD 300 each 3 ??? noctdauwwwt-kfbriliee-aznxiutp (Trelegy Ellipta) 100-62.5-25 mcg Disk with Device Inhale 1 Inhalation into the lungs daily. 60 each 3 ??? Crystal Pen Needle 32 gauge x 5/32 Needle Inject 1 each subcutaneously 4 times daily. 400 each 3 ??? pen needle, diabetic (NovoTwist) 32 gauge x 1/5 Needle 1 [facility]Non- Drug; Combo Route) route 4 times daily as needed. Novotwist needle ICD E11.9 NIDD 100 each 5 ??? DULoxetine DR (Cymbalta) 60 mg Capsule, Delayed Release(E.C.) Take 1 capsule by mouth daily. 90 capsule 3 ??? glipiZIDE (Glucotrol) 5 mg Tablet Take 1 tablet by mouth daily. 60 tablet 11 ??? esomeprazole (NexIUM) 40 mg Capsule, Delayed Release(E.C.) Take 1 capsule by mouth 2 times daily. 180 capsule 3 ??? nystatin (Mycostatin) 100,000 unit/mL Suspension SAS 5 ML PO QID PRF THRUSH 60 mL 0 ??? semaglutide 1 mg/dose (2 mg/1.5 mL) Pen Injector Inject 1 mg subcutaneously once a week. 12 Syringe 3 ??? albuteroL (ProAir HFA) 90 mcg/actuation HFA Aerosol Inhaler Inhale 2 puffs into the lungs every 4 hours as needed for Wheezing. Use with spacer 3 Inhaler 3 ??? amLODIPine (Norvasc) 10 mg Tablet Take 1 tablet by mouth daily. 90 tablet 3 ??? atorvastatin (Lipitor) 20 mg Tablet Take 1 tablet by mouth daily. 90 tablet 3 ??? BD Alcohol Swabs Pads, Medicated 1 each 4 times daily. 100 each 3 ??? Vitamin D 25 mcg (1,000 unit) Tablet Take 2 tablets by mouth daily. 90 tablet 0 ??? cholecalciferol, Vitamin D3, 1,250 mcg (50,000 unit) Capsule Take 1 capsule by mouth once a week. 52 capsule 0 ??? levothyroxine (Synthroid) 150 mcg Tablet Take 2 tablets by mouth daily. Take in addition to the 25mcg to equal 325mcg 180 tablet 3 ??? levothyroxine (Synthroid) 25 mcg Tablet Take 1 tablet by mouth daily. 90 tablet 3 ??? meclizine (Antivert) 25 mg Tablet Take 1 tablet by mouth 3 times daily as needed. 90 tablet 3 ??? ipratropium-albuteroL (DUONEB) 0.5 mg-3 mg(2.5 mg base)/3 mL Solution for Nebulization Take 0.5 mg by nebulization 4 times daily. 1 Box 4 ??? blood-glucose meter (FREESTYLE) Kit 1 each by [facility].(Non-Drug; Combo Route) route as needed for Other. 1 each 0 ??? naratriptan (Amerge) 2.5 mg Tablet Take 1 tablet by mouth as needed for Migraine. if returns or does not resolve, may repeat once after 4 hours 10 tablet 3 ??? ondansetron ODT (Zofran-ODT) 4 mg Tablet, Rapid Dissolve DISSOLVE 1 T UNDER THE TONGUE Q 6 H PRN20 tablet 0 ??? lancets (FreeStyle Lancets) 28 gauge [facility] Dx E11.9 IDD please test 4x/day with lancets Indications: diabetes mellitus 125 each 11 ??? hydroCHLOROthiazide (Hydrodiuril) 50 mg Tablet Take 1 tablet by mouth daily. 90 tablet 3 ??? cycloSPORINE (Restasis) 0.05 % Dropperette Place 1 drop into both eyes every 12 hours. 180 vial 3 ??? varenicline (Chantix) 1 mg Tablet Take 1 tablet by mouth daily. 30 tablet 5 ??? clotrimazole (MYCELEX) 10 mg Gary DIS 1 MOLLY PO TID 30 tablet 3 ??? Calcipotriene 0.005 % Solution as needed. ??? estradiol (ESTRACE) 0.01 % (0.1 mg/gram) Cream Place vaginally as needed. 4 ??? ondansetron (ZOFRAN) 4 mg Tablet Take 1 tablet by mouth every 8 hours as needed for Nausea. 20 tablet 3 ??? vitamin with gzlsprlp-Ki-Cafl-FA Tablet Take 1 tablet by mouth daily. ??? metroNIDAZOLE (METROCREAM) 0.75 % Cream Apply topically 2 times daily. 45 g 5 ??? fluticasone (VERAMYST) 27.5 mcg/actuation [place], Suspension 2 sprays by Nasal route daily. Indications: Allergic Rhinitis ??? ALPRAZolam (XANAX) 1 mg tablet Take 1 mg by mouth 3 times daily as needed. ??? aripiprazole (ABILIFY) 30 mg tablet Take 30 mg by mouth daily. Allergies Allergen Reactions ??? Latex Rash ??? Metformin Nausea And Vomiting ??? Clonazepam Nausea And Vomiting Nauseous, itchy ??? Clonidine (Pf) Other (See Comments) olea johnsons syndrome ??? Codeine Itching and Nausea Only ??? Hydrocodone-Acetaminophen Itching rash ??? Methadone Nausea And Vomiting Had trouble walking and talking after taking for a few days Family History Problem Relation Age of Onset [...] Neg Hx ??? Heart Disease Neg Hx Social History Socioeconomic History ??? Marital status: Spouse name: Not on file ??? Number of children: 2 ??? Years of education: Not on file ??? Highest education level: Not on file Occupational History ??? Occupation: disability Tobacco Use ??? Smoking status: Current Every Day Smoker Packs/day: 0.50 Years: 13.00 Pack years: 6.50 Types: Cigarettes ??? Smokeless tobacco: Never Used Substance and Sexual Activity ??? Alcohol use: No Alcohol/week: 0.0 standard drinks ??? Drug use: Yes Types: Marijuana Comment: has medical marijuana card ??? Sexual activity: Not Currently Comment: question deferred Other Topics Concern ??? Not on file Social History Narrative ??? Not on file Social Determinants of Health Financial Resource Strain: ??? Difficulty of Paying Living Expenses: Food Insecurity: ??? Worried About Running Out of Food in the Last Year: ??? Ran Out of Food in the Last Year: Transportation Needs: ??? Lack of Transportation (Medical): ??? Lack of Transportation (Non-Medical): Physical Activity: ??? Days of Exercise per Week: ??? Minutes of Exercise per Session: Stress: ??? Feeling of Stress : Social Connections: ??? Frequency of Communication with Friends and Family: ??? Frequency of Social Gatherings with Friends and Family: ??? Attends Evangelical Services: ??? Active Member of Clubs or Organizations: ??? Attends Club or Organization Meetings: ??? Marital Status: Intimate Partner Violence: ??? Fear of Current or Ex-Partner: ??? Emotionally Abused: ??? Physically Abused: ??? Sexually Abused: ROS: A full 10 point review of systems was obtained and negative except for that included in the HPI. OBJECTIVE VS: BP 125/86 Pulse 95 Temp 36.9 ??C (98.4 ??F) (Oral) Wt 88 kg (194 lb) SpO2 99% BMI 32.28 kg/m?? Sl tachycardia PE: General: This is a well-nourished, well-developed female who appears her stated age. She is alert and able to participate in evaluation. NAD. Skin: Color and turgor appropriate. No lesions, rashes, or masses appreciated. Head: Atraumatic and normocephalic. Neck: Symmetrical with midline trachea. Eyes: Visual acuity grossly intact. Lids and periorbital area without edema, erythema, or lesions. Sclera anicteric, conjunctiva without swelling, erythema, injection, or exudate. EOMs intact through extremes of gaze without appreciable nystagmus. Ears: Hearing grossly intact to normal conversation. Auricles without masses, lesions, or swelling. Chest/pulmonary: SpO2 acceptable on RA. Respirations unlabored and regular. Chest wall symmetrical without deformity. No adventitious sounds appreciated on auscultation of anterior and posterior lung contreras. No tenderness to palpation. Cardiovascular: Regular rate and rhythm. S1 and S2 without splitting. No S3, S4, murmurs, or rubs appreciated on ausculation. Distal pulses intact and symmetrical in upper and lower extremities. No LE edema. Abdomen: +BS, non-tender to palpation in all quadrants. Without distension, rigidity, organomegaly, palpable masses, or ascites. Musculoskeletal: Gait and posture without obvious abnormality. Musculature and extremities without deformity, asymmetry, erythema, effusion, or swelling. No evidence of restricted ROM or gross instability. Neurological: Alert and oriented to person, place, time, and situation. Attention, concentration, language, and fund of knowledge are within expected range. Speech is fluent with normal content. No gross CN deficits, abnormal movements, or FNDs. Psychiatric: Patient cooperative with appropriate behavior, thought content, and affect. LABS: Reviewed and interpreted independently. Recent Results (from the past 72 hour(s)) COVID-19 PCR Specimen: Nasopharyngeal Swab Symptoms->COVID-19 Suspected Result Value Ref Range Rapid SARS-CoV-2 RNA Not Detected Not Detected SARS-CoV-2 Source NEWSPAPER REPORTER Swab Basic Metabolic Panel (non-fasting) Result Value Ref Range Glucose Lvl 190 65 - 199 mg/dL BUN 8 8 - 18 mg/dL Creatinine 0.68 (L) 0.70 - 1.20 mg/dL Sodium 139 135 - 145 mmol/L Potassium 3.6 3.5 - 5.0 mmol/L Chloride 103 98 - 107 mmol/L CO2 25 22 - 31 mmol/L Anion Gap 11 5 - 15 mmol/L Calcium 9.4 8.5 - 10.5 mg/dL Estimated GFR 100 >=60 mL/min/1.73 m?? Hemogram Result Value Ref Range WBC 10.2 (H) 4.0 - 9.5 x10(3)/mcL RBC 4.87 4.00 - 5.21 x10(6)/mcL Hemoglobin 14.6 11.7 - 15.5 gm/dL Hematocrit 44.0 35.7 - 45.8 % MCV 90.3 82.6 - 94.4 fL MCH 30.0 27.1 - 32.0 pg MCHC 33.2 31.7 - 35.0 gm/dL Platelets 336 145 - 357 x10(3)/mcL RDWSD 39.4 37.0 - 46.0 fL RDWCV 11.9 11.5 - 14.1 % MPV 10.0 7.6 - 12.9 fL nRBC % Auto 0.0 % nRBC Abs Auto 0.000 0.000 - 0.000 x10(3)/mcL Differential, Automated Result Value Ref Range Neutrophils % 58.0 % Neutr Abs (ANC) 5.91 1 - 6 x10(3)/mcL Lymphocytes % 31.7 % Lymphocytes Abs 3.2 0.9 - 3.2 x10(3)/mcL Monocytes % 6.6 % Monocyte Abs 0.7 0.3 - 0.9 x10(3)/mcL Eosinophils % 2.4 % Eosinophils Abs 0.2 0.0 - 0.4 x10(3)/mcL Basophils % 0.8 % Basophils Abs 0.1 0.0 - 0.1 x10(3)/mcL Immature Gran % 0.50 % Sunshine Gran Abs 0.05 (H) 0.00 - 0.04 x10(3)/mcL Blue Tube HOLD Result Value Ref Range Blue Hold Sample in lab. Gold Tube HOLD Result Value Ref Range Gold Hold Sample in lab. Urinalysis with reflex Culture Specimen: Clean Catch Urine Result Value Ref Range Glucose UA Negative Negative mg/dL Protein UA Negative Negative mg/dL Bilirubin UA Negative Negative mg/dL Urobilinogen UA Normal Normal mg/dL pH UA 6.0 5.0 - 8.0 Blood UA Negative Negative mg/dL Ketones UA Negative Negative mg/dL Nitrite UA Negative Negative Leukocytes UA Negative Negative mcL Appearance UA Clear Clear Spec Fletcher UA 1.017 1.006 - 1.030 Color UA Yellow Yellow Culture Reflexed No ASSESSMENT & PLAN MDM: Joseline Rose is a 55 y.o. female with 3 weeks of severe dyspepsia after stopping Omeprazole, not improved with resumption. Now 2 weeks of daily vomiting and Diarrhea with blood clots, no water exposure or parasite, no travel. Hospitalized 3 months ago for discectomy. Recent keflex for UTI in January. Gluten enteropathy, but has had testing. C.diff, infectious diarrhea, unlikely giardia. Irritablebowel diarrhea predominant, Inflammatory bowel. Ulcer with upper GI bleed. Smoker, no alcohol. Severe relux with reflux esophagitis. Charleen liu tear from retching. Weight loss is concerning, Poor appetite Missing work. Stool is to be collected Labs are normal, not alarming, hemodynamically stable, given IVF. Trial protonix BID instead of omeprazole Elevate HOB No late evening meals Avoid alcohol and tobacco. Follow up with GI for endoscopy and coloscopy Zofran for nausea and vomiting Single dose 2 tabs 4 mg if immodium, after each loose stool not to exceed 6 tabs in a day zofran less nausea ASSESSMENT: 1. GERD with esophagitis 2. N,V,D 3. Weight loss 4. Blood in stool PLAN: Stool studies, basic labs, needs GI follow up and evaluation with upper and lower endoscopy, especially given 24# weight loss DISPO: discharge to home. The assessment and plan were discussed in detail with the patient. She received clear instruction to seek reevaluation at the nearest Emergency Department with significantly worsening symptoms or the development of any concerning symptoms such as BRBPR, or black stools, dehydration, intractable vomiting. Additionally, it was recommended that she follow up with Gastroenterology and PCP. All questions and concerns were addressed and patient expresses understanding of and agreement with the plan as stated. EMERGENCY ATTENDING NOTE I have independently performed the acosta portions of the history and physical exam.. Pertinant ROS performed as documented in resident note. My physical examination confirms the resident's findings. Nursing notes, vital signs, diagnostic studies, including EKG and imaging, and medical records have been ann-marie villalba personally. I have concurrently managed this patient with the resident above. The assessmentand plan were formulated in discussion with me at the time of the visit. I have reviewed the note and agree with the documentation, except where I have noted differently in my note/attestation. Please see for details of History (PMH/MEDS/ALLS/SOC/FAM/ROS), physical exam, diagnostic studies, assessmentand plan. Ana Chery MD 02/13/21 191 Yanely Lubin RN - 02/13/2021 11:59 AM EDT ED RN brief outside phone call note: Joseline Rose is a 55 y.o. who I was called about from Radhika Barcenas MD The patient will be evaluated in the Emergency Department for nausea, vomiting, and diarrhea for 2 weeks Brief Summary: This patient has a 2 week history of nausea, vomiting, and diarrhea for 2 weeks. She was seen one week ago at [facility] and given Zofran and Carafate. She has cont to have nausea, vomiting, and diarrhea. Shewas seen in clinic and Dr. Barcenas is concerned for COVID. This patient is not vaccinated. She would like her worked up for COVID, nausea, vomiting, diarrhea, and treat her dehydration. Her VS ar 129/80, 20, 97%, and 102. documented in this encounter Miscellaneous Notes Initial Assessments - Catalina Pang RN - 02/13/2021 3:55 PM EDTSummary: CM initial assessment Office of Care Management Initial Assessment Catalina Pang RN reviewed record and discussed patient with Care Team. Source of Information: Pt via telephone and medical record. Introduced self/reviewed role; services accepted. Reason for Hospitalization: nausea, vomiting, diarrhea, and fever Last COVID test date and time: 02/13/21 @ 1303 Lab Results Component Value Date COVID19 Not Detected 11/27/2020 [id number] Not Detected 02/13/2021 Past Medical History: Diagnosis Date ??? Allergy [...] r/t neck, has vertigo treated with meclizine Hospitalizations Within the Past 30 Days: none Anticipated Length Of Stay (If known): 24-48 hrs Current Decision-Making Capacity: self Advance Care Planning: Reviewed advance directives, their importance and process for completion and provided copy(ies) of Advance Care Planning Guide from the [employer]. Current Coping/Education/Information Needs: Pt is coping well Current Functional Ability: independent and drives Functional Status Prior to Admission: independent and drives Home Environment: lives in a downstairs apartments Social & Family Supports/Community Resources: pt has coworkers who she is close with. Behavioral Health History: Pt has hx of PTSD, anxiety, and depression. Pt stated that she takes medications and that they are helping her. Substance Use/Abuse: pt denies use. Other Pertinent/Service Specific Information: none noted Health/Prescription Coverage: Primary Insurance: MEDICARE Secondary Insurance: [place] [employer]ED MEDICAID Prescription Coverage: yes [facility] [place] Primary Care Provider: Tom Hay MD [phone] Patient/Caregiver Goals of Treatment: to return home Potential Needs for Transition of Care: Rehab/SNF: none Home Health: none DME: none Dialysis: none Community Resources: none needed Transportation: self, pt drove here. Other: none Anticipated Barriers to Discharge/Special Considerations: none noted Assessment: ED workup underway. Unclear level of care pt will need at this time. Plan: Pt plans on driving herself home. A member of the Care Management team will continue to monitor progress, follow for continuity of care and assist with transition of care planning. Catalina Pang, RN Pager: [phone] ED Triage - Francesco White RN - 02/13/2021 12:26 PM EDT Pt with 3 weeks of diarrhea, and fever 103.4 3nights ago, presented to [facility]: sent to ED for covid r/oprior to performing scope. Pt A+Ox4, respirations even and unlabored, PWD, VSS, NAD. documented in this encounter Plan of Treatment Upcoming Encounters Date Type Specialty Care Team Description 08/06/2022 Office Visit Plastic Surgery Peña Woodward MD [facility] SUR[facility]ERY [place], [place] [address] ( josé luis) 08/19/2022 Office Visit Podiatry Tom Titus DPM [place], [place] [address] ( josé luis) 09/08/2022 Office Visit Internal Medicine Janay Hay MD [facility] INTERNAL MEDICINE [place], [place] [address] ( josé luis) 10/12/2059 Hospital Encounter Surgery Jim Hanley MD [facility] [place], [place] [address] (Wo rk) Scheduled Procedures Name [...] Diagnoses Order S chedule Referral to Outpatient Routine Gastroesophageal Ordered: Gastroenterology Referral reflux disease with 02/2021 esophagitis without hemorrhage Weight loss of more than 10% body weight REFERRAL TO COLONOSCOPY Outpatient Routine Gastroesophageal Ordered: PROCEDURE Referral reflux disease with 02/14/20 21 esophagitis without hemorrhage Weight loss of more than 10% body weight documented as of this encounter Procedures Procedure Name Priority Date/Time Associated Comments Diagnosis URINALYSIS WITH STAT 02/13/2021 3:24 PM Result s for this REFLEX CULTURE EDT procedure are in the results section. HEMOGRAM STAT 02/13/2021 1:29 PM Results f or this EDT procedure are i n the results section. DIFFERENTIAL, STAT 02/13/2021 1:29 PM Results for this AUTOMATED EDT procedure are i n the results section. GOLD TUBE HOLD STAT 02/13/2021 1:29 PM Results for this EDT procedure are i n the results section. BLUE TUBE HOLD STAT 02/13/2021 1:29 PM Results for this EDT procedure are i n the results section. HC CBC,PLT & AUTO STAT 02/13/2021 1:29 PM DIFF EDT BASIC METABOLIC STAT 02/13/2021 1:29 PM Result s for this PANEL (NON-FASTING) EDT procedur e are in the results section. RAPID COVID-19 PCR STAT 02/13/2021 1:03 PM Res ults for this ([facility]/APD/NLH) EDT procedure are in the results section. documented in this encounter Results Urinalysis with reflex Culture (02/13/2021 3:24 PM EDT) [facility] Method Time Signature Glucose UA Negative Negative [facility] mg/dL [facility] Protein UA Negative Negative [facility] mg/dL [facility] Bilirubin UA Negative Negative [facility] mg/dL [facility] Comment: Clinical correlation required for positi ve Urine Bilirubin results as false positive may occur with some drugs and d rug related products. If a false positive is suspected a serum total bili nielsen should be considered if clinically indicated. Urobilinogen UA Normal Normal mg/dL [facility] pH UA 6.0 5.0 - 8.0 [facility] Blood UA Negative Negative mg/dL [facility] Ketones UA Negative Negative mg/dL [facility] Nitrite UA Negative Negative [facility] Leukocytes UA Negative Negative [facility] Appearance UA Clear Clear [facility] Spec Fletcher UA 1.017 1.006 - 1.030 [facility] Color UA Yellow Yellow [facility] Culture Reflexed No [facility] Specimen (Source) Anatomical Collection Method Collection Time Re ceived Time Location / / Volume Laterality Urine specimen 02/13/2021 3:24 02/13/2021 3:41 obtained by clean PM EDT PM EDT catch procedure (specimen) Resulting Agency Comment Spec In Lab Ana Chery MD URINE ORDERABLES Performing Organization Address City/[facility]/[place] [address] Gold Tube HOLD (02/13/2021 1:29 PM EDT) athologist Signature Gold Hold Sample in [facility] Specimen Anatomical Collection Method Collection Time Receive d Time (Source) Location / / Volume Laterality Blood specimen Venous Draw / 02/13/2021 1:29 PM 2020 1:46 (specimen) Unknown EDT PM EDT Dilia Tate MD CHEMISTRY ORDERABLES Performing Organization Address City/[facility]/[place] [address] Blue Tube HOLD (02/13/2021 1:29 PM EDT) athologist Signature Blue Hold Sample in [facility] Specimen Anatomical Collection Method Collection Time Receive d Time (Source) Location / / Volume Laterality Blood specimen Venous Draw / 02/13/2021 1:29 PM 2020 1:47 (specimen) Unknown EDT PM EDT Dilia Tate MD HEMATOLOGY ORDERABLES Performing Organization Address City/[facility]/[place] [address] (ABNORMAL) Differential, Automated (02/13/2021 1:29 PM EDT) athologist Signature Neutrophils % 58.0 % [facility] Neutr Abs (ANC) 5.91 1.70 - [facility] 6.10 [facility] x10(3)/[facility] Lymphocytes % 31.7 % [facility] Lymphocytes Abs 3.2 0.9 - 3.2 [facility] x10(3)/[facility]OR[facility]ORY Monocytes % 6.6 % [facility] Monocyte Abs 0.7 0.3 - 0.9 [facility] x10(3)/[facility]OR[facility]ORY Eosinophils % 2.4 % [facility] Eosinophils Abs 0.2 0.0 - 0.4 [facility] x10(3)/[facility]ORY Basophils % 0.8 % [facility] Basophils Abs 0.1 0.0 - 0.1 [facility] x10(3)/[facility]ORY Immature Gran % 0.50 % [facility] Comment: Immature granulocytes(IG's)percentage an d absolute count will include metamyelocytes, myelocytes, and promyelo cytes. Blood smears from CBCs yielding IG's will be scanned manually for concor dance. If this scan disagrees with the automated IG or if promyelocytes are not ed, a manual differential will be performed. Sunshine Gran Abs 0.05 (H) 0.00 - 0.04 x10(3)/[facility] Specimen Anatomical Collection Method Collection Time Receive d Time (Source) Location / / Volume Laterality Blood specimen 02/13/2021 1:29 PM 021 1:45 (specimen) EDT PM EDT Resulting Agency Comment Spec In Lab Dilia Tate MD HEMATOLOGY ORDERABLES Performing Organization Address City/State/ZIP Code Phon e Number [place] [id number] (ABNORMAL) Hemogram (02/13/2021 1:29 PM EDT) Analysis Performed At Patho logist Time Signature WBC 10.2 (H) 4.0 - 9.5 [facility] x10(3)/[facility] RBC 4.87 4.00 - [facility] 5.21 [facility] x10(6)/[facility] Hemoglobin 14.6 11.7 - [facility] 15.5 gm/dL [facility] Hematocrit 44.0 35.7 - [facility] 45.8 % [facility] MCV 90.3 82.6 - [facility] 94.[address] [facility] MCH 30.0 27.1 - [facility] 32.[address] [facility] MCHC 33.2 31.7 - [facility] 35.0 gm/dL [facility] Platelets 336 145 - 357 [facility] x10(3)/[facility] LABORATORY RDWSD 39.4 37.0 - MHEREEN ARMAS 46.0 [facility] RDWCV 11.9 11.5 - MEHREEN ARMAS 14.1 % [facility] MPV 10.0 7.6 - 12.9 [facility]OR[facility]ORY nRBC % Auto 0.0 % [facility] nRBC Abs Auto 0.000 0.000 - MEHREEN CHANDA 0.000 [facility] x10(3)/[facility]ORY Specimen Anatomical Collection Method Collection Time Receive d Time (Source) Location / / Volume Laterality Blood specimen 02/13/2021 1:29 PM 021 1:45 (specimen) EDT PM EDT Resulting Agency Comment Spec In Lab Dilia Tate MD HEMATOLOGY ORDERABLES Performing Organization Address City/State/[place] [address] (ABNORMAL) Basic Metabolic Panel (non-fasting) (02/13/2021 1:29 PM EDT) athologist Signature Glucose Lvl 190 65 - 199 [facility] mg/dL [facility] Comment: Diabetes: >=200 mg/dL plus symp toms BUN 8 8 - 18 mg/dL [facility] Creatinine 0.68 (L) 0.70 - 1.20 mg/dL [facility] Sodium 139 135 - 145 mmol/L [facility] Potassium 3.6 3.5 - 5.0 mmol/L [facility] Comment: Please note: ??Patients with WBC >100,00 0 may have falsely elevated Potassium levels. ??For accurate Potassium quantif ication in these patients send serum separator tube (gold top) for subsequent determinations. ??Contact the Clinical Chemistry Laboratory if there are any qu estions. Chloride 103 98 - 107 mmol/L [facility] CO2 25 22 - 31 mmol/L [facility] Anion Gap 11 5 - 15 mmol/L [facility] Calcium 9.4 8.5 - 10.5 mg/dL [facility] Estimated GFR 100 >=60 mL/min/1.73 m?? [facility] Comment: This patient? s estimated [...] (Source) Location / / Volume Laterality Blood specimen 02/13/2021 1:29 PM 021 1:45 (specimen) EDT PM EDT Resulting Agency Comment Spec In Lab Ana Chery MD CHEMISTRY ORDERABLES Performing Organization Address City/State/[place] [address] COVID-19 PCR (02/13/2021 1:03 PM EDT) [facility] Method Time Signature SARS-CoV-2 Not Detected Not Detected [facility] RNA PCR [facility] Comment: This result should [...] using the Simplexa COVID-19 Direct Assay by [employer] as authorized by the FDA issued Emergency [...] Department of Pathology and Laboratory Medicine at [facility], certified under the Clinical Laboratory Improvement [...] clinical management guidance information are available at [facility] CDC Coronavirus Disease 2019 (COVID-19) webpage under Information fo r Healthcare Professionals (https://www.cdc.gov/coronavirus/2019-nc ov/hcp/index.html). Additional information about this and ot her EUA tests can be found in provider and patient fact sheets at the following FDA website: https://www.fda.gov/medical-devices/swdlztdupch-depmcch-9926-ewomn-06-drpoyrxpe- ota-uoialwbdnnajws-hrlprwh-devices/mjafa-zkftdbgroal-nnoh SARS-CoV-2 Source [employer] Swab [facility] Specimen (Source) Anatomical Collection Method Collection Time Re ceived Time Location / / Volume Laterality Nasopharyngeal swab 02/13/2021 1:03 02/13 (specimen) PM EDT 1:18 PM EDT Comment: Symptoms->COVID-19 Suspected Resulting Agency Comment Spec In Lab Ana Chery MD MICROBIOLOGY - GENERAL ORDER NERIS Performing Organization Address City/State/ZIP Code Phon e [place] [facility] [place] [address] documented in this encounter Visit Diagnoses Diagnosis Gastroesophageal reflux disease with eso phagitis without hemorrhage Charleen-Liu tear Gastroesophageal laceration-hemorrhage s yndrome Refractory nausea and vomiting Nausea with vomiting Diarrhea, unspecified type Weight loss of more than 10% body weight documented in this encounter Administered Medications Inactive Administered Medications - up to 3 most recent administrations Medication Order MAR Action Action Date Dose Rate Site ondansetron (pf) (Zofran) (2 mg/mL) Given 02/13/2021 2:38 PM EDT 4 mg injection 4 mg 4 mg, Intravenous, ONCE, 1 dose, On Thu02/13/21 at 1324, STAT pantoprazole (Protonix) injection 40 mg Given 02/13/2021 2:44 PM EDT 40 mg 40 mg, Intravenous, DAILY, First dose on Thu02/13/21 at 1347, Until Discontinued sodium chloride 0.9% 500 mL IV bolus New Bag 02/13/2021 2:49 PM EDT 500 mL/hr at 500 mL/hr, Intravenous, ONCE, 1 dose, On Thu02/13/21 at 1324 sodium chloride 0.9% 500 mL IV bolus New Bag 02/13/2021 3:49 PM EDT 1000 mL/hr at 1,000 mL/hr, Intravenous, ONCE, 1 dose, On Thu02/13/21 at 1347 documented in this encounter Active and Recently Administered Medications Times are shown in EDT. Scheduled Medication Order 02/11/2021 02/12/2021 02/13/2021 ondansetron (pf) (Zofran) (2 mg/mL) injection 4 mg (COMPLETED) 1438 (Given - Provider: Martha Breen LPN) 4 mg, Intravenous, ONCE, 1 dose, Thu02/13/21 at 1324, STAT pantoprazole (Protonix) injection 40 mg 1444 (Given - Provider: Martha Breen LPN) 40 mg, Intravenous, DAILY, First dose on Thu02/13/21 at 1347, Until Discontinued sodium chloride 0.9% 500 mL IV bolus (COMPLETED) 1449 (New Bag - Provider: Martha Breen LPN)1549 (Stopped - Provider: Alden Palacios RN) at 500 mL/hr, Intravenous, ONCE, 1 dose, Thu02/13/21 at 1324 sodium chloride 0.9% 500 mL IV bolus (COMPLETED) 1549 (New Bag - Provider: Aldne Palacios RN)1619 (Stopped - Provider: Alden Palacios RN) at 1,000 mL/hr, Intravenous, ONCE, 1 dose, Thu02/13/21 at 1347 documented in this encounter Additional Health Concerns Infection Onset Date Last Indicated Resolved Time Rule Out COVID-19 02/13/2021 02/13/2021 02/13/2021 3:1 7 PM EDT Rule Out C. difficile 02/13/2021 02/13/2021 02/13/2021 9:03 PM EDT documented as of this encounter Care Teams Deep Fryer Assembler Relationship Specialty Start Date End Date Tom Hay MD PCP - General General Internal Medicine 09/15/18 [facility] [place] [address] documented as of this encounter
--- OUTSIDE RECORDS SUMMARY | 2022-07-12 00:45 | XMS_ITS | Encounter Summary ---
:1965 Author Organization [facility] [place] [address] Care Team Providers Name Role Phone Tom Hay MD Primary Care Provider Reason for Visit Reason Onset Date Comments Medication Refill 05/03/2021 Encounter Details Date Type Department Care Team Description 05/03/2021 Refill Internal Medicine at [facility] [place] [address] Social History Tobacco Use Types Packs/Day [...] Telephone Encounter - Maricruz Shabazz RN - 05/03/2021 6:47 PM EDT Attempted to contact patient. Voicemail not set up, unable to leave a voicemail. Telephone Encounter - Maricruz Shabazz RN - 05/03/2021 3:[address] Ross signed order for Nystatin and sent to pharmacy. Per Dr. Ross: Can you let her know that the creams are OTC? ??She can get them at any pharmacy - [email or web address] or [facility]. Contacted patient. Voicemail not set up, unable to leave voicemail. If patient returns call, please relay message above. Telephone Encounter - Tyron You - 05/03/2021 10:16 AM EDT Patient states she is in [place] as her father last night. She is hoping to have nystatin sent to her pharmacy so they can mail it to her. Patient has an outbreak of thrush and states thatshe would appreciate a larger bottle of the suspension. Patient was also told there was a cream and would like to have both if at all possible. Patient wanted to know if there was anything over the counter she could take while she waits for the prescription? Please call to discuss. Please wells if possible. documented in this encounter Plan of Treatment Upcoming Encounters Date Type Specialty Care Team Description 08/06/2022 Office Visit Plastic Surgery Peña Woodward MD [facility] PLASTIC SURGERY [place], [place] [address] (Wo rk) 08/19/2022 Office Visit Podiatry Tom Titus DPM [place], [place] [address] (Wo rk) 09/08/2022 Office Visit Internal Medicine Janay Hay MD [facility] GENERAL INTERNAL MEDICINE [place], [place] [address] (Wo rk) 10/12/2059 Hospital Encounter Surgery Jim Hanley MD [facility] [place], [place] [address] (Wo rk) Scheduled Procedures Name [...] on filedocumented in this encounter Care Teams Senior Portfolio Analyst Relationship Specialty Start Date End Date Tom Hay MD PCP - General General Internal Medicine 09/15/18 [facility] [place] [address] documented as of this encounter
--- OUTSIDE RECORDS SUMMARY | 2022-07-12 00:45 | XMS_ITS | Encounter Summary ---
:1965 Author Organization [facility] Address [facility] [place] [address] Care Team Providers Name Role Phone Tom Hay MD Primary Care Provider Encounter Details Date Type Department Care Team Description 08/13/2021 Patient Outreach Internal Medicine at [facility] Bradly Rosario [facility] Kevin [address] [address] Social History Tobacco Use Types Packs/Day [...] this encounter Miscellaneous Notes Telephone Encounter - Bradly Rosario - 08/13/2021 11:26 AM EDT 08/13/21, [place] calling per referral regarding social supports and assistance. Spoke with pt who states that she does not have any needs at this time. Declines CRS services. documented in this encounter Plan of Treatment Upcoming Encounters Date Type Specialty Care Team Description 08/06/2022 Office Visit Plastic Surgery Peña Woodward MD [facility] [place] [address] ([facility]) 08/19/2022 Office Visit Podiatry Tom Titus DPM [place], [place] [address] ( rk) 09/08/2022 Office Visit Internal Medicine Janay Hay MD [facility] GENER[facility] INTERNAL MEDICINE [place], [place] [address] ( josé luis) 10/12/2059 Hospital Encounter Surgery Jim Hanley MD [facility] [place], [place] [address] (Flores ordonez) Scheduled Procedures Name [...] on filedocumented in this encounter Care Teams Network Systems Analyst Relationship Specialty Start Date End Date Tom Hay MD PCP - General General Internal Medicine 09/15/18 [facility] [place] [address] documented as of this encounter
--- OUTSIDE RECORDS SUMMARY | 2022-07-12 00:45 | XMS_ITS | Encounter Summary ---
:1965 Author Organization [facility] Address [facility] [place] [address] Care Team Providers Name Role Phone Tom Hay MD Primary Care Provider Reason for Visit Reason Onset Date Comments Headache 12/19/2021 Encounter Details Date Type Department Care Team Description 12/19/2021 Telephone Internal Medicine at [facility] [place] Hay MD Headache [facility] D rive [facility] [place] [phone] GENERAL INTERNAL MEDICINE [phone] [place], [place] [address] (Wo rk) Social History Tobacco [...] this encounter Miscellaneous Notes Telephone Encounter - Bhavesh Major RN - 12/19/2021 4:18 PM EST Patient greeted and identified. Patient states that for the past few months she has been having what she considers head pain rather than head aches, because it is just on the left side and it feels like her brain is too big for that side of her head. Patient states that the pain comes in sudden, sharp episodes that last anywherebetween 30-90seconds, and then they go away completely. Patient states that during these episodes she does not have visual changes, but she does have to stop what she is doing until the episode is over. Patient states that they had been getting gradually worse, and that the last few weeks they have been increasing in consistency, intensity and length. Patient states they happen around 3 times a day now, but again in between she has no pain. Patient states that she does have some weakness in hands, but that has developed over a long period of time and does not change with these episodes, also has numbness/tingling in bilateral lower extremities, but has diabetic neuropathy. Patient states that these episodes feel very different then her migraines. Patient states that she was monitoring them for a while and could not find a pattern or precipitating factors. Patient states that she is always dizzy,but that this also does not necessarily happen when these episodes happen. Patient denies fevers, neck stiffness beyond her baseline, no slurring of words, and no unilateral findings (weakness, numbness in one side of the body). Patient states that she has very little appetite at baseline, has to smoke pot to eat, and that she has been drinking the same amount she normally does, although admit thatshe knows this is not enough. Patient states that she does sometimes feel nauseas during these episodes but has not vomited. Patient states that her last episode earlier today dissipated as usually, but then about an hour later she developed pain in the left side of her head, though not as sharp or aspainful. Patient states she took ibuprofen and that the pain is now dissipating. This RN told patient that she should come to the walk in clinic [facility], but patient declined stating she lives far away, felt she could not drive herself and that she had no one to drive her. This RN suggested local urgent care or emergency room, but patient stated that she did not trust the local care centers ([facility]). This RN told patient that if she really did not want to go in [facility], she should come in to the walk in clinic first thing tomorrow morning (given hours). This RN told the patientthat if she developed any unilateral symptoms, if her head pain became more painful despite ibuprofen, if she became so dizzy she could not stand, if she developed visual changes, or if she developed any other sudden or new symptoms, that she should call 911 immediately (explained low threshold for going to ED because she told me she had a mini stroke about 10 years ago). Patient verbalized understanding and agreement with this plan. Protocol Used: Headache Protocol-Based Disposition: See in Office Today or Tomorrow Positive Triage Questions: * Unexplained headache that is present > 24 hours * New headache and age > 50 Negative Triage Questions: * Difficult to awaken or acting confused (e.g., disoriented, slurred speech) * Weakness of the face, arm or leg on one side of the body and new onset * Numbness of the face, arm or leg on one side of the body and new onset * Loss of speech or garbled speech and new onset * Passed out (i.e., fainted, collapsed and was not responding) * Sounds like a life-threatening emergency to the triager * Unable to walk without falling * Stiff neck (can't touch chin to chest) * Possibility of carbon monoxide exposure * Severe headache, states worst headache of life * Severe headache, sudden-onset (i.e., reaching maximum intensity within seconds to 1 hour) * Severe pain in one eye * Loss of vision or double vision (Exception: same as prior migraines) * Patient sounds very sick or weak to the triager * Fever > 103 F (39.4 C) * Fever > 100.0 F (37.8 C) and has diabetes mellitus or a weak immune system (e.g., HIV positive,cancer chemotherapy, organ transplant, splenectomy, chronic steroids) * Severe headache (e.g., excruciating) and has had severe headaches before * Severe headache and not relieved by pain meds * Severe headache and vomiting * Severe headache and fever * New headache and weak immune system (e.g., HIV positive, cancer chemo, splenectomy, organ transplant, chronic steroids) * Fever present > 3 days (72 hours) * Patient wants to be seen Telephone Encounter - Toyin Askew - 12/19/2021 2:55 PM EST Message: patient called complaining of a severe headache, makes her nauseas and shooting pain on herleft side of her head, 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 Ask caller their first and last name and relationship to the patient: Joseline Mccain Melfa Best time to call back: any Ok to leave a message: y Ok to send my- message: n Offered Appointment: n MA/Nurse/Garvin contacted via: Message: y Call: y Pager: n documented in this encounter Plan of Treatment Upcoming Encounters Date Type Specialty Care Team Description 08/06/2022 Office Visit Plastic Surgery Peña Woodward MD [facility] PLASTIC SURGERY [place], [place] [address] (Wo rk) 08/19/2022 Office Visit Podiatry Tom Titus DPM [place], [place] [address] (Wo rk) 09/08/2022 Office Visit Internal Medicine Janay Hay MD [facility] GENERAL INTERNAL MEDICINE [place], [place] [address] (Wo rk) 10/12/2059 Hospital Encounter Surgery Jim Hanley MD [facility] DR SPINE CENTER [place], [place] [address] (Wo rk) Scheduled Procedures Name [...] filedocumented in this encounter Care Teams Charge Histotechnologist Relationship Specialty Start Date End Date Tom Hay MD PCP - General General Internal Medicine 09/15/18 [facility] GENERAL [place] [address] documented as of this encounter
--- OUTSIDE RECORDS SUMMARY | 2022-07-12 00:45 | XMS_ITS | Encounter Summary ---
:1965 [place] [address] Care Team Providers Name Role Phone Tom Hay MD Primary Care Provider Encounter Details Date Type Department Care Team Description 12/20/2021 Laboratory Appointment Lab [address] [place] COPD [place] [id number] Social History Tobacco Use Types Packs/Day Years [...] Office Visit Plastic Surgery Peña Woodward MD [facility] PLASTIC SURGERY [place] [phone] (Wo rk) 08/19/2022 Office Visit Podiatry Tom Titus DPM [place] [phone] (Wo rk) 09/08/2022 Office Visit Internal Medicine Janay Hay MD [facility] GENERAL INTERNAL MEDICINE [place] [phone] (Wo rk) 10/12/2059 Hospital Encounter Surgery Jim Hanley MD [facility] SPINE CENTER [place] [address] (Wo rk) Scheduled Procedures Name Priority Associated [...] Priority Date/Time Associated Diagnosis Comme nts HC C-REACTIVE PROTEIN STAT 12/20/2021 2:01 PM COPD with Results for this EST exacerbation procedure are i n the results section. HEMOGRAM STAT 12/20/2021 2:01 PM COPD with Results f or this EST exacerbation procedure are i n the results section. DIFFERENTIAL, STAT 12/20/2021 2:01 PM COPD with Results for this AUTOMATED EST exacerbation procedure are i n the results section. HC VENIPUNCTURE STAT 12/20/2021 2:01 PM COPD with Result s for this EST exacerbation procedure are i n the results section. HC CBC,PLT & AUTO STAT 12/20/2021 2:01 PM COPD with DIFF EST exacerbation documented in this encounter Results (ABNORMAL) Differential, Automated (12/20/2021 2:01 PM EST) [facility] Method Time Signature Neutrophils % 60.7 % [facility] LAB[facility] Neutr Abs (ANC) 6.88 (H) 1.70 - [facility] 6.10 [facility] x10(3)/[facility] L LABORATORY Lymphocytes % 30.2 % [facility] Lymphocytes Abs 3.4 (H) 0.9 - 3.2 [facility] x10(3)/[facility] LABORATORY Monocytes % 5.8 % [facility] Monocyte Abs 0.7 0.3 - 0.9 [facility] x10(3)/[facility] LABORATORY Eosinophils % 1.9 % [facility] Eosinophils Abs 0.2 0.0 - 0.4 [facility] x10(3)/[facility] LABORATORY Basophils % 0.8 % [facility] Basophils Abs 0.1 0.0 - 0.1 [facility] x10(3)/[facility] LABORATORY Immature Gran % 0.60 % [facility] Comment: Immature granulocytes(IG's)percentage an d absolute count will include metamyelocytes, myelocytes, and promyelo cytes. Blood smears from CBCs yielding IG's will be scanned manually for concor dance. If this scan disagrees with the automated IG or if promyelocytes are not ed, a manual differential will be performed. Sunshine Gran Abs 0.07 (H) 0.00 - 0.04 x10(3)/[facility] LABORATORY Specimen Anatomical Collection Method Collection Time Receive d Time (Source) Location / / Volume Laterality Blood 12/20/2021 2:01 PM 2 2:10 EST PM EST Resulting Agency Comment Spec In Lab Enrico MOJICA HEMATOLOGY ORDERABLES Performing Organization Address City/State/[place] [address] (ABNORMAL) Hemogram (12/20/2021 2:01 PM EST) Analysis Performed At Patho logist Time Signature WBC 11.3 (H) 4.0 - 9.5 [facility] x10(3)/[facility] LABORATORY RBC 5.12 4.00 - [facility] 5.21 [facility] x10(6)/[facility] LABORATORY Hemoglobin 15.5 11.7 - [facility] 15.5 g/dL [facility]ORY Hematocrit 45.4 35.7 - [facility] % [facility] MCV 88.7 82.6 - [facility] 94[facility]4 [facility] LAB[facility]AT[facility] MCH 30.3 27.1 - [facility] 32.0 pg [facility] LABORATORY MCHC 34.1 31.7 - [place] 35.0 g/dL [facility] LABOR[facility]ORY Platelets 316 145 - 357 [place] x10(3)/[facility] LABORATORY RDWSD 40.6 37.0 - [place] 46.0 [facility] LABORATORY RDWCV 12.3 11.5 - [facility] 14.1 % [facility] LABORATORY MPV 10.2 7.6 - 12.9 [facility] LABORATORY nRBC % Auto 0.0 % [facility] nRBC Abs Auto 0.000 0.000 - [place] 0.000 [facility] x10(3)/[facility] LABORATORY Specimen Anatomical Collection Method Collection Time Receive d Time (Source) Location / / Volume Laterality Blood 12/20/2021 2:01 PM 2 2:10 EST PM EST Resulting Agency Comment Spec In Lab Enrico MOJICA HEMATOLOGY ORDERABLES Performing Organization Address City/State/ZIP Code Phon e Number [address] (ABNORMAL) CRP, acute inflammation (12/20/2021 2:01 PM EST) P athologist Signature CRP 5.0 (H) <=4.9 mg/L [facility] LABOR[facility] Specimen Anatomical Collection Method Collection Time Receive d Time (Source) Location / / Volume Laterality Blood 12/20/2021 2:01 PM 2 2:10 EST PM EST Resulting Agency Comment Spec In Lab Eddi Smith MD CHEMISTRY ORDERABLES Performing Organization Address City/State/ZIP Code Phon e Number [address] Sedimentation rate (12/20/2021 2:01 PM EST) P athologist Signature Sed Rate 13 2 - 39 [facility] mm/hr [facility] LAB[facility]ORY Comment: Effective September 21, 2019 new capillar y photometric technology has resulted in a change in reference ranges. It is r ecommended that each ESR result be reviewed with its own age appropriate re ference range. Specimen Anatomical Collection Method Collection Time Receive d Time (Source) Location / / Volume Laterality Blood 12/20/2021 2:01 PM 2:10 EST PM EST Resulting Agency Comment Spec In Lab Eddi Smith MD HEMATOLOGY ORDERABLES Performing Organization Address City/State/[place] [address] documented in this encounter Visit Diagnoses Diagnosis COPD with exacerbation Obstructive chronic bronchitis with exac erbation documented in this encounter Care Teams Consumer Services Advisor Relationship Specialty Start Date End Date Tom Hay MD PCP - General General Internal Medicine 09/15/18 [facility] [place] [address] documented as of this encounter
--- OUTSIDE RECORDS SUMMARY | 2022-07-12 00:45 | XMS_ITS | Encounter Summary ---
:1965 Author Organization [facility] Address [facility] [address] [place] [address] Care Team Providers Name Role Phone Tom Hay MD Primary Care Provider Reason for Visit Reason Comments Headache Frontal left right on top fr ontal lobe. Sometimes radiates ti middle and and back of head on same side. C ome on extrememly strong. Lasts about a minute and a half. Intnesity and ti me increasing. Getting it about three times a day sharp. Constant head cristian n in front 04/20. 07/21 when shoots up. Nausea. Tingling in right hand const ant. Started a couple months ago but has gotten really bad over the past cou ple weeks. Intermittent slurred speech. Denies facial droop. Halts patient in her tracks. Encounter Details Date Type Department Care Team Description 12/20/2021 Office Visit Internal Medicine at [facility] tenderness; [facility] Chronic intractable headache, unspecifie d headache type; [facility] D [address] exacerbation [address] [place] INTERNAL MEDICIN [place] [address] [place] [address] [phone] Social History Tobacco Use Types Packs/Day Years [...] Sign Reading Time Taken Comments Blood Pressure 145/88 12/20/2021 11:32 AM EST Pulse 101 12/20/2021 11:32 AM EST Temperature 36.7 ??C (98.1 ??F) 12/20/2021 11:32 AM EST Respiratory Rate - - Oxygen Saturation 97% 12/20/2021 11:32 AM EST Inhaled Oxygen Concentration - - Weight - - Height - - Body Mass Index - - documented in this encounter Progress Notes Mercedes Holley RN - 12/20/2021 11:20 AM EST Evaluation today was performed: [] By video conference [x] In-person PPE used during in-person evaluation: [x] Gloves [] Gown [x] Goggles [] Face-shield [x] Level 2 mask [] N-95 [] PAPR WALK IN TRIAGE Symptom: head pain How Long: couple months but really amped up over the past couple weeks Pain: 04/20 SOB: No Chest pain: No Dizziness: Yes, Date with episodes of sudden sharp pain Vision changes: No Slurred speech: Yes, Date with episodes Vital signs: Numbness or tingling: Yes, Date right hand started a few months ago Edema: No Headache: Yes, Date for a few months Loss of Consciousness: No Appointment made: Code White: No Enrico Palma PA - 12/20/2021 11:20 AM EST General Internal Medicine Walk in Clinic Visit Evaluation today was performed: [] Telehealth - Video [] Telehealth - Telephone [] By video conference [x] In-person PPE used during in-person evaluation: [] Gloves [] Gown [] Goggles [x] Face-shield [x] Level 2 mask [] N-95 [] [id number] [] PAPR Subjective: Joseline Rose is a 56 y.o. female a patient of Tom Hay MD with a history of migraines, chronic neck pain, COPD, DM2, HTN, and bipolar presents to the walk in clinic today for: Chief Complaint Patient presents with ??? Headache Frontal left right on top frontal lobe. Sometimes radiates ti middle and and back of head on same side. Come on extrememly strong. Lasts about a minute and a half. Intnesity and time increasing. Getting it about three times a day sharp. Constant head pain in front 04/20. 07/21 when shoots up. Nausea. Tingling in right hand constant. Started a couple months ago but has gotten really bad over the past couple weeks. Intermittent slurred speech. Denies facial droop. Halts patient in her tracks. Left frontal headache described as pressure x 2.5 month, but worse the last 2 weeks. This pressure-type pain lasts 1-2 hours but also has intermittent intense shooting pain lasting 60-90 secs. These shooting pains are increasing in frequency, currently about 3x/day. Baseline headache feels like pressure in my skull. The area of pain is well demarcated with some overlying decreased sensation. she feels occasional scalp tenderness but not currently. Reports some associated nausea. TMJ has been worse lately. No h/o PMR. H/o migraines but reports this pain feels different. No migraines in about 1-2 years but keeps triptans on hand. Improved after ACDF C5-C7 about 1 year ago. Stopped Botox treatment in 2018. COPD: worsening cough and wheezing x 1 week, associated with worsening allergies. Cough is productive with yellow sputum. Takes albuterol and Trelegy daily. DM2 remains uncontrolled. Takes Ozempic but has short-acting insulin at home for prn use. Not checking glucose at home. Objective: Visit Vitals BP 145/88 (BP Location (NBP): Right arm, Patient Position: Sitting, BP Cuff Sizes: Adult (25-34 cm)) Pulse (!) 101 Temp 36.7 ??C (98.1 ??F) (Oral) SpO2 97% BP Readings from Last 3 Encounters: 12/20/21 145/88 07/30/21 135/85 02/13/21 145/89 Wt Readings from Last 3 Encounters: 07/30/21 93 kg (205 lb) 02/13/21 88 kg (194 lb) 02/13/21 88 kg (194 lb) Physical Exam Constitutional: General: She is not in acute distress. Cardiovascular: Rate and Rhythm: Normal rate and regular rhythm. Heart sounds: No murmur heard. Pulmonary: Effort: Pulmonary effort is normal. No respiratory distress. Breath sounds: Wheezing and rales (crackles b/l bases) present. Abdominal: Palpations: Abdomen is soft. There is no mass. Tenderness: There is no abdominal tenderness. There is no guarding. Skin: General: Skin is warm and dry. Neurological: General: No focal deficit present. Mental Status: She is alert and oriented to person, place, and time. Cranial Nerves: No cranial nerve deficit. Sensory: Sensory deficit (left frontal scalp: mildly decreased sensation to light touch only) present. Motor: No weakness. Coordination: Coordination normal. Gait: Gait normal. Deep Tendon Reflexes: Reflexes normal. Psychiatric: Mood and Affect: Mood normal. Behavior: Behavior normal. Behavior is cooperative. Assessment and Plan: I discussed the following diagnosis/diagnoses and differential diagnoses in detail with Ms. Rose, including treatment options and she agrees with the plan outlined below. All chronic problems listed inH&P are stable unless otherwise noted below. 1. Scalp tenderness 2. Chronic intractable headache, unspecified headache type - Ongoing 2+ months, now with sharp shooting pain lasting several seconds. - Does not appear to be her typical migraine or cervicogenic headache. Area of pain is well demarcated in V1 region and appears most c/w trigeminal neuralgia. MRI was WNL in 2016. Discussed further imaging vs [facility] clinic referral, however she will follow up with her PCP if not improving pending her response to COPD exacerbation treatment as below. - Sedimentation rate; Future - CRP, acute inflammation; Future - CBC (with Diff); Future 3. COPD with exacerbation - Significant basilar crackles and wheezing with worsening cough with increased sputum. C/w previousCOPD exacerbations. Continue to smoke. - predniSONE (Deltasone) 10 mg Tablet; Take 4 tablets by mouth daily for 3 days, THEN 3 tablets daily for 3 days, THEN 2 tablets daily for 3 days, THEN 1 tablet daily for 3 days. Dispense: 30 tablet; Refill: 0 - amoxicillin-clavulanate (Augmentin) 875-125 mg Tablet; Take 1 tablet by mouth 2 times daily for 7 days. Dispense: 14 tablet; Refill: 0 - Ms. Rose was given the necessary information on her condition and instructed to return to clinic if symptoms continue or worsen and to follow-up with Tom Hay MD for chronic management as needed. - An After Visit Summary was either printed and given to the patient or provided via the patient portal. -Total time on date of encounter: 50 minutes including as necessary: [x] Preparing to see pt, review of tests [] Obtaining and/or reviewing separately obtained history (eg, outside records, caregiver) [x] Counseling and educating the patient/family/caregiver [] Referring and communicating with other health care coordinator [x] Documenting clinical information in the electronic or other health record [] Independently interpreting results [] Care coordination documented in this encounter Plan of Treatment Upcoming Encounters Date Type Specialty Care Team Description 08/06/2022 Office Visit Plastic Surgery Peña Woodward MD [facility] DR PLASTIC SURGERY [place], [place] [address] (Wo rk) 08/19/2022 Office Visit Podiatry Tom Titus DPM [facility] [address]IVE [place], [place] [address] (Wo rk) 09/08/2022 Office Visit Internal Medicine Janay Hay MD [facility] GENERAL INTERNAL MEDICINE [place], [place] [address] (Wo rk) 10/12/2059 Hospital Encounter Surgery Jim Hanley MD [facility] SPINE CENTER [place], [place] [address] (Wo rk) Scheduled Procedures Name [...] documented as of this encounter Results (ABNORMAL) CRP, acute inflammation (12/20/2021 2:01 PM EST) P athologist Signature CRP 5.0 (H) <=4.9 mg/L [facility] Specimen Anatomical Collection Method Collection Time Receive d Time (Source) Location / / Volume Laterality Blood 12/20/2021 2:01 PM 2 2:10 EST PM EST Resulting Agency Comment Spec In Lab Eddi Smith MD CHEMISTRY ORDERABLES Performing Organization Address City/[facility]/[place] [address] Sedimentation rate (12/20/2021 2:01 PM EST) P athologist Signature Sed Rate 13 2 - 39 [facility] mm/hr [facility] Comment: Effective September 21, 2019 new [...] Smith MD HEMATOLOGY ORDERABLES Performing Organization Address City/[facility]/ZIP [facility] [place] [address] documented in this encounter Visit Diagnoses Diagnosis Scalp tenderness Headache Chronic intractable headache, unspecifie d headache type COPD with exacerbation Obstructive chronic bronchitis with exac erbation documented in this encounter Care Teams Software Engineer Web Services Relationship Specialty Start Date End Date Tom Hay MD PCP - General General Internal Medicine 09/15/18 [facility] GENERAL [place] [address] documented as of this encounter
--- OUTSIDE RECORDS SUMMARY | 2022-07-12 00:45 | XMS_ITS | Encounter Summary ---
:1965 Author Organization [facility] [place] [address] Care Team Providers Name Role Phone Tom Hay MD Primary Care Provider Encounter Details Date Type Department Care Team Description 01/21/2022 Ancillary Procedure Radiology Library at [place], [facility] [place] [address] GENERAL INTERNAL [phone] MEDICINE [place] [phone] (Wo rk) Social History Tobacco Use Types [...] place to sleep or slept in a halfway (including now)? Sex Assigned at Date Recorded Not on file documented as of this encounter Plan of Treatment Upcoming Encounters Date Type Specialty Care Team Description 08/06/2022 Office Visit Plastic Surgery Peña Woodward MD [facility] PLASTIC SURGERY [place] [phone] ( rk) 08/19/2022 Office Visit Podiatry Tom Titus DPM [place], [place] [address] ( rk) 09/08/2022 Office Visit Internal Medicine Janay Hay MD [facility] GENERAL INTERNAL MEDICINE [place], [place] [address] (Wo rk) 10/12/2059 Hospital Encounter Surgery Jim Hanley MD [facility] SPINE CENTER [place], [place] [address] (Wo rk) Scheduled Procedures Name [...] Associated Diagnosis Comme nts FILM LIBRARY Routine 01/21/2022 12:00 AM Results for this STORAGE ONLY CT EDT procedure ar e in SPINE the results section. documented in this encounter Results Film Library- Storage Only CT Spine (01/21/2022 12:00 AM EDT) Specimen (Source) Anatomical Location Collection Method / Collectio n Time Received Time / Laterality Volume Narrative URI BUENO - 02/07/2022 10:10 AM EDT This exam is auto-finalizing. It's purpo se is for storage only. Tom Hay MD IMG FILM LIBRARY ORDERABLES Performing Organization Address City/State/ZIP Code Phon e Number XIMENA XIMENA [place], [place] documented in this encounter Visit Diagnoses Not on filedocumented in this encounter Care Teams Material Handler Relationship Specialty Start Date End Date Tom Hay MD PCP - General Internal Medicine 09/15/18 [facility] [place] [address] (work) documented as of this encounter
--- OUTSIDE RECORDS SUMMARY | 2022-07-12 00:45 | XMS_ITS | Encounter Summary ---
:1965 Author Organization [facility] [place] [address] Care Team Providers Name Role Phone Tom Hay MD Primary Care Provider Encounter Details Date Type Department Care Team Description 08/06/2021 Orders Only Internal Medicine at [place], Low vitamin D level [facility] [place] [address] GENERAL INTERNAL [phone] MEDICINE [place], [place] [address] (Wo rk) Social History Tobacco [...] Office Visit Plastic Surgery Peña Woodward MD [facility] PLASTIC SURGERY [place] [address] ( rk) 08/19/2022 Office Visit Podiatry Tom Titus DPM [place], [place] 0[address] (Wo rk) 09/08/2022 Office Visit Internal Medicine Janay Hay MD [facility] GENERAL INTERNAL MEDICINE [place], [place] [address] (Wo rk) 10/12/2059 Hospital Encounter Surgery Jim Hanley MD [facility] SPINE CENTER [place], [place] [address] (Wo rk) Scheduled Procedures Name [...] as of this encounter Visit Diagnoses Diagnosis Low vitamin D level documented in this encounter Care Teams Cinetechnician Relationship Specialty Start Date End Date Tom Hay MD PCP - General General Internal Medicine 09/15/18 [facility] [place] [address] documented as of this encounter
--- OUTSIDE RECORDS SUMMARY | 2022-07-12 00:45 | XMS_ITS | Encounter Summary ---
:1965 Author Organization [facility] [place] [address] Care Team Providers Name Role Phone Tom Hay MD Primary Care Provider Encounter Details Date Type Department Care Team Description 09/26/2021 Telephone Internal Medicine at [facility] Huyen Wheatley [facility] [address] [place] [place] [address] Social History Tobacco Use Types Packs/Day [...] Woodward MD [facility] PLASTIC SURGERY [place], [place] [address] (Wo rk) 08/19/2022 Office Visit Podiatry Tom Titus DPM [place] [phone] (Wo rk) 09/08/2022 Office Visit Internal Medicine Janay Hay MD [facility] GENERAL INTERNAL MEDICINE [place] [phone] (Wo rk) 10/12/2059 Hospital Encounter Surgery Jim Hanley MD [facility] SPINE CENTER [place] [phone] (Wo rk) Scheduled Procedures Name Priority Associated [...] on filedocumented in this encounter Care Teams Evaporative Cooler Installer Relationship Specialty Start Date End Date Tom Hay MD PCP - General General Internal Medicine 09/15/18 [facility] [place] [address] documented as of this encounter
--- OUTSIDE RECORDS SUMMARY | 2022-07-12 00:45 | XMS_ITS | Encounter Summary ---
:1965 Author Organization [facility] [place] [address] Care Team Providers Name Role Phone Tom Hay MD Primary Care Provider Reason for Visit Reason Onset Date Comments Medication Refill 04/16/2021 Encounter Details Date Type Department Care Team Description 04/16/2021 Refill Internal Medicine at [facility] Velia Tilley CCMA [facility] Kevin [address] [address] Social History Tobacco Use Types Packs/Day [...] place to sleep or slept in a custodial (including now)? Sex Assigned at Date Recorded Not on file documented as of this encounter Plan of Treatment Upcoming Encounters Date Type Specialty Care Team Description 08/06/2022 Office Visit Plastic Surgery Peña Woodward MD [facility] PLASTIC SURGERY [place], [place] [address] (Wo rk) 08/19/2022 Office Visit Podiatry Tom Titus DPM [place], [place] [address] (Wo rk) 09/08/2022 Office Visit Internal Medicine Janay Hay MD [facility] GENERAL INTERNAL MEDICINE [place], [place] [address] (Wo rk) 10/12/2059 Hospital Encounter Surgery Jim Hanley MD [facility] SPINE CENTER [place], [place] [address] (Wo rk) Scheduled Procedures Name [...] on filedocumented in this encounter Care Teams Shock Absorber Installer Relationship Specialty Start Date End Date Tom Hay MD PCP - General Internal Medicine 09/15/18 [facility] [place] [address] documented as of this encounter
--- OUTSIDE RECORDS SUMMARY | 2022-07-12 00:45 | XMS_ITS | Encounter Summary ---
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 [facility] [address] [place] GENERAL INTERNAL [phone] MEDICINE [phone] [place], [place] [address] (Wo rk) Social History Tobacco [...] Sign Reading Time Taken Comments Blood Pressure 129/80 02/13/2021 11:38 AM EDT Pulse 102 02/13/2021 11:38 AM EDT Temperature 36.7 ??C (98 ??F) 02/13/2021 11:38 AM EDT Respiratory Rate 20 02/13/2021 11:38 AM EDT Oxygen Saturation 97% 02/13/2021 11:38 AM EDT Inhaled Oxygen Concentration - - Weight 88 kg (194 lb) 02/13/2021 11:38 AM EDT Height 165.1 cm (5' 5) 02/13/2021 11:38 AM EDT Body Mass Index 32.28 02/13/2021 11:38 AM EDT documented in this encounter Progress Notes Radhika Barcenas, SHELLY - 02/13/2021 11:40 AM EDT Subjective: Patient ID: Joseline Rose is a 55 y.o. female. HPI Evaluation today was performed: [] By video conference [x] In-person PPE used during in-person evaluation: [] Gloves [] Gown [] Goggles [x] Face-shield [x] Level 2 mask [] N-95 [] PAPR Joseline is here with continued nausea and vomiting, diarrhea and fever. Seen in [place] 2 weeks ago and given Zofran and Carafate with minimal relief. She ate malagasy muffin and hash browns this amand still thinks it is going to come up. She has been working during this time. She tried the Zofranand pepto bismol but then became constipated and now green diarrhea. Fever last night to 103 F. PMH - Asthma; Hypothyroid; Depression; Sleep apnea; Uncontrolled type 2 diabetes mellitus with hyperglycemia; COPD (chronic obstructive pulmonary disease); Bipolar II disorder; Vitamin D deficiency; Essential hypertension; and Hyperlipidemia. Review of Systems Constitutional: Positive for activity change, appetite change, chills, fatigue and fever. Gastrointestinal: Positive for abdominal pain, diarrhea, nausea and vomiting. Negative for blood in stool. Objective: Physical Exam Vitals reviewed. Constitutional: Appearance: Normal appearance. Cardiovascular: Rate and Rhythm: Regular rhythm. Tachycardia present. Abdominal: General: Bowel sounds are decreased. There is distension. Palpations: Abdomen is soft. Tenderness: There is abdominal tenderness in the right lower quadrant. Neurological: Mental Status: She is alert. Assessment and Plan: Joseline was seen today for follow-up of continued nausea, vomiting, diarrhea and fever. Discussed options of testing for covid then returning on Thursday to see Dr. Hay or going to the ER for testing and hydration and she would like to go to the ER. Called transfer center and RN transported to the ER. Diagnoses and all orders for this visit: Refractory nausea and vomiting - metoclopramide (REGLAN) 5 mg Tablet; Take 1 tablet by mouth 4 times daily. - Basic Metabolic Panel (non-fasting); Future - Hepatic Function Panel; Future - CBC (with Diff); Future Ramon Samano CCMA - 02/13/2021 11:40 AM EDT Evaluation today was performed: [] By video conference [x] In-person PPE used during in-person evaluation: [] Gloves [] Gown [x] Goggles [] Face-shield [x] Level 2 mask [] N-95 [] PAPR Maricruz Shabazz RN - 02/13/2021 11:40 AM EDT Evaluation today was performed: [] By video conference [x] In-person PPE used during in-person evaluation: [] Gloves [] Gown [x] Goggles [] Face-shield [x] Level 2 mask [] N-95 [] PAPR Transferred to ER by nurse wheelchair Stable condition Yes Vital signs stable Patient Vitals for the past 24 hrs: Temp Pulse Resp BP SpO2 02/13/21 1138 36.7 ??C (98 ??F) (!) 102 20 129/80 97 % Provider called to ER: Yes Time patient left clinic: 1210 documented in this encounter Plan of Treatment Upcoming Encounters Date Type Specialty Care Team Description 08/06/2022 Office Visit Plastic Surgery Peña Woodward MD [facility] PLASTIC SURGERY [place] [phone] ( josé luis) 08/19/2022 Office Visit Podiatry Tom Titus DPM [place] [phone] ( josé luis) 09/08/2022 Office Visit Internal Medicine Janay Hay MD [facility] GENERAL INTERNAL MEDICINE [place], [place] [address] (Flores ordonez) 10/12/2059 Hospital Encounter Surgery Jim Hanley MD [facility] SPINE CENTER [place], [place] [address] (Flores ordonez) Scheduled Procedures Name [...] as of this encounter Visit Diagnoses Diagnosis Refractory nausea and vomiting Nausea with vomiting documented in this encounter Additional Health Concerns Infection Onset Date Last Indicated Resolved Time Rule Out COVID-19 02/13/2021 02/13/2021 02/13/2021 3:1 7 PM EDT Rule Out C. difficile 02/13/2021 02/13/2021 02/13/2021 9:03 PM EDT documented as of this encounter Care Teams Retoucher Photoengraving Relationship Specialty Start Date End Date Tom Hay MD PCP - General Internal Medicine 09/15/18 [facility] GENERAL [place] [address] documented as of this encounter
--- OUTSIDE RECORDS SUMMARY | 2022-07-12 00:45 | XMS_ITS | Encounter Summary ---
:1965 Author Organization [facility] [place] [address] Care Team Providers Name Role Phone Tom Hay MD Primary Care Provider Reason for Visit Reason Onset Date Comments Medication Refill 04/22/2021 Encounter Details Date Type Department Care Team Description 04/22/2021 Refill Internal Medicine at [facility] Rona Romero Chronic obstructive pulmonar y disease with acute exacerbation; [facility] [place] [address] Social History Tobacco Use Types Packs/Day [...] this encounter Miscellaneous Notes Telephone Encounter - Geneva Eubanks - 04/23/2021 12:38 PM EDT Patient is calling to see status of medication, states she is completely out of medication. Please expedite. [phone] documented in this encounter Plan of Treatment Upcoming Encounters Date Type Specialty Care Team Description 08/06/2022 Office Visit Plastic Surgery Peña Woodward MD [facility] PLASTIC SURGERY [place] [phone] (Flores ordonez) 08/19/2022 Office Visit Podiatry Tom Titus DPM [place] [phone] (Flores ordonez) 09/08/2022 Office Visit Internal Medicine Janay Hay MD [facility] GENERAL INTERNAL MEDICINE [place], [place] [address] (Flores ordonez) 10/12/2059 Hospital Encounter Surgery Jim Hanley MD [facility] SPINE CENTER [place], [place] [address] (Flores ordonez) Scheduled Procedures Name Priority Associated [...] as of this encounter Visit Diagnoses Diagnosis Chronic obstructive pulmonary disease wi th acute exacerbation Obstructive chronic bronchitis with exac erbation Vertigo Dizziness and giddiness documented in this encounter Care Teams Security Assurance Specialist Relationship Specialty Start Date End Date Tom Hay MD PCP - General Internal Medicine 09/15/18 [facility] GENERAL [place] [address] documented as of this encounter
--- OUTSIDE RECORDS SUMMARY | 2022-07-12 00:45 | XMS_ITS | Encounter Summary ---
:1965 Author Organization [facility] Address [facility] [place] [address] Care Team Providers Name Role Phone Tom Hay MD Primary Care Provider Reason for Visit Reason Comments Skin Lesion Plantar Warts Encounter Details Date Type Department Care Team Description 02/05/2021 [facility] Karen MEDINA Plantar wart; [address] [facility] [place] Psoriasis; [place] [address] Scalp psoriasis [phone] [facility] [place], [place] [address] Social History Tobacco Use Types [...] documented as of this encounter Progress Notes Bryanna Coffey MD - 02/05/2021 2:30 PM EDT Images from the original note were not included. DEPARTMENT OF DERMATOLOGY Medical Dermatology Clinic PROVIDER: BRYANNA COFFEY MD FAAD Patient's preferred name DERM HISTORY Date, location, treatment Melanoma - Dysplastic nevi - SCC - BCC - Other relevant past medical history Psoriasis FAMILY DERM HISTORY Melanoma - Keratinocyte Carcinomas - Other relevant history - History of Present Illness Joseline Rose is a 55 y.o. female who presents with the following concerns: ?? Tender lesion on the right medial canthus x x 1 year. ?? Warts on the right plantar foot x 1 + year. Podiatry gave her efudex which she started 2 days ago. Has only done 1 application Antecedent History: History of scalp psoriasis for many years currently treating with Taclonex 3 times a week and clobetasol foam 3-4 times a week with limited improvement. Here to discuss additional management. Previously treated with topical steroids and a few treatments with Excimer laser; joint treatment with topical and narrowband phototherapy notable for significant improvement. Interval changes to Medications and Medical, Family and Social Histories (including alcohol and tobacco use) Since Last Visit 04/11/2020: No significant interval history. Allergies Latex, Metformin, Clonazepam, Clonidine (pf), Codeine, Hydrocodone- acetaminophen, and Methadone Medications has a current medication list which includes the following prescription(s): pregabalin, mupirocin, fluorouracil, valacyclovir, methocarbamol, blood sugar diagnostic strips, trelegy ellipta, bandar pen needle, novotwist, duloxetine dr, glipizide, esomeprazole, nystatin, semaglutide, albuterol, amlodipine, atorvastatin, bd alcohol swabs, vitamin d, cholecalciferol (vitamin d3), levothyroxine, levothyroxine, meclizine, ipratropium-albuterol, blood-glucose meter, naratriptan, ondansetron odt, lancets, hydrochlorothiazide, cyclosporine, varenicline, clotrimazole, betamethasone-calcipotriene, calcipotriene, estradiol, clobetasol-emollient, ondansetron, vitamin with bknehkfp-ms-ofed-fa, metronidazole, fluticasone, alprazolam, and aripiprazole. Examination Standby Gillian Bunch CMA Well developed, well-nourished in no apparent distress, alert and oriented to time, person, place and situation. Focused examination of the skin of the right nasal sidewall and right foot significant for the following: ??? Yoe, hyperkeratotic slightly irregular papules on the right nasal sidewall x 1 [Total AK: 1] ??? 6x3 mm verruca's papule on the underside of right 2nd toe, 19 x 11 mm yellow tender plaque with a few thrombosed vessels on the lateral ball of right foot, 4 mm verrucous papule with thrombosed vessels on the medial ball of right foot Assessment and Plan Actinic Keratosis Counseled: AKs, risk for progression to SCCs, and treatment options, including observation, cryotherapy, topicals, and PDT. Answered all questions. Handout given. ?? Total 1 treated with cryotherapy, 1 cycle at 5 seconds, after verbally discussing the disease andtreatment options, cryotherapy method, expected results/course and potential adverse effects, including crusting, persistent erythema, scar, blister, pain, dyspigmentation, and recurrence. Patient verbally agreed. Patient tolerated well with no complications. Wound care instructions provided. If no resolution in 1 month or if scaling recurs after initial resolution, may contact clinic for re-evaluation and management. Plantar warts, right foot Consistent with plantar warts over calluses but will consider callus/clavus perhaps in one of the 3 lesions. Discussed plantar warts and management options including cryotherapy, Efudex, intralesional 5-FU or MMR vaccine or laser therapy. Answered all questions. Given that she has started the Efudex now, recommend continuing this and follow- up with podiatry. ?? Continue Efudex applied daily to the warts and covered with duct tape or similar strong adhesive.Discussed risks of irritation. Follow-up: 3 months for scalp psoriasis or return to clinic prn for new suspicious lesions or if changes/symptoms in existing lesions develop. Note initiated by TY Smith CMA has performed the documentation for this encounter in the presence of and acting as a scribe for Dr. Coffey. I performed the above scribed service and agree with the accuracy of the documentation in this encounter. Bryanna Coffey MD FAAD Section of Dermatology [facility] documented in this encounter Plan of Treatment Upcoming Encounters Date Type Specialty Care Team Description 08/06/2022 Office Visit Plastic Surgery Peña Woodward MD [facility] PLASTIC SURGERY [place] [phone] (Flores ordonez) 08/19/2022 Office Visit Podiatry Tom Titus DPM [place], [place] [address] (Wo rk) 09/08/2022 Office Visit Internal Medicine Janay Hay MD [facility] GENERAL INTERNAL MEDICINE [place], [place] [address] (Flores ordonez) 10/12/2059 Hospital Encounter Surgery Jim Hanley MD [facility] DR SPINE CENTER [place], [place] [address] (Flores ordonez) Scheduled Procedures Name [...] as of this encounter Visit Diagnoses Diagnosis AK (actinic keratosis) Actinic keratosis Plantar wart Psoriasis Other psoriasis Scalp psoriasis Other psoriasis documented in this encounter Care Teams Shop Worker Relationship Specialty Start Date End Date Tom Hay MD PCP - General Internal Medicine 09/15/18 [facility] [place] [address] documented as of this encounter
--- OUTSIDE RECORDS SUMMARY | 2022-07-12 00:45 | XMS_ITS | Encounter Summary ---
:1965 [place] [address] Care Team Providers Name Role Phone Tom Hay MD Primary Care Provider Reason for Visit Reason Onset Date Comments Triage 02/13/2021 Encounter Details Date Type Department Care Team Description 02/13/2021 Telephone [facility] [place] [address] Social History Tobacco Use Types Packs/Day [...] this encounter Miscellaneous Notes Telephone Encounter - Linda Betts RN - 02/13/2021 12:33 PM EDT PC to pt to triage for symptoms as requested by Radhika Barcenas APRN. Pt states that plans were changedis she is now in the ED. documented in this encounter Plan of Treatment Upcoming Encounters Date Type Specialty Care Team Description 08/06/2022 Office Visit Plastic Surgery Peña Woodward MD [facility] PLASTIC SURGERY [place] [phone] (Flores ordonez) 08/19/2022 Office Visit Podiatry Tom Titus DPM [place], [place] [address] (Wo rk) 09/08/2022 Office Visit Internal Medicine Janay Hay MD [facility] GENERAL INTERNAL MEDICINE [place], [place] [address] ( josé luis) 10/12/2059 Hospital Encounter Surgery Jim Hanley MD [facility] SPINE CENTER [place], [place] [address] (Flores ordonez) Scheduled Procedures Name [...] on filedocumented in this encounter Care Teams Hematologist Oncologist Relationship Specialty Start Date End Date Tom Hay MD PCP - General General Internal Medicine 09/15/18 [facility] GENERAL INTERNAL [place] [address] documented as of this encounter
--- OUTSIDE RECORDS SUMMARY | 2022-07-12 00:45 | XMS_ITS | Encounter Summary ---
:1965 Author Organization [facility] Address [address] [place] [address] Care Team Providers Name Role Phone Tom Hay MD Primary Care Provider Reason for Visit Reason Comments Plantar Obdulio Encounter Details Date Type Department Care Team Description 01/30/2021 Office Visit Podiatry at [facility] Esme Edwards DPM Type 2 diabetes mellitus with peripheral neuropathy; [facility] [place] s[place]; [place] Right foot pain [place] [phone] Social History Tobacco Use Types Packs/Day Years [...] documented as of this encounter Progress Notes Esme Edwards DPM - 01/30/2021 2:30 PM EDT Outpatient [facility] Note Name: Joseline Rose Age:55 y.o. MR#: [id number] Date of Service: 01/30/2021 SUBJECTIVE: Joseline Rose is a 55 y.o. female with diabetes who returns to clinic today with chief complaint of painful warts on bottom of right foot. Rates pain as 8 out of 10. Patient previouslyseen for foreign body which was removed and site has resolved since then. Relates pending evaluationby dermatology. Also relates concern for worsening neuropathy for greater than 6+ months. Patient has previously been placed on gabapentin and Lyrica with continued symptoms. Patient has been applying Efudex 5% to affected sites on right foot, however states Band-Aid constantly slipped off and she is unsure if medication remains at affected sites. No other pedal complaints or interval changes. No constitutional symptoms reported. Allergies Allergen Reactions ??? Latex Rash ??? [...] Gatherings with Friends and Family: ??? Attends Yazdanism Services: ??? Active Member of Clubs or Organizations: ??? Attends Club or Organization Meetings: ??? Marital Status: Intimate Partner Violence: ??? Fear of Current or Ex-Partner: ??? Emotionally Abused: ??? Physically Abused: ??? Sexually Abused: Family History Problem Relation Age of Onset [...] to Visit Medication Sig Dispense Refill ??? fluorouraciL (EFUDEX) 5 % Cream Apply thin layer to affected site as directed once daily. 40 g 0 ??? acetaminophen (Tylenol) 500 mg Tablet Take 2 tablets by mouth every 8 hours. 30 tablet 0 ??? valACYclovir (VALTREX) 1 gram Tablet Take 1 tablet by mouth 2 times daily. 30 tablet 3 ??? methocarbamoL (ROBAXIN) 750 mg Tablet Take 1 tablet by mouth 3 times daily as needed. 30 tablet 0 ??? blood sugar diagnostic strips Strip Use as instructed to check BG 4 times daily. (Freestyle Lite)DX code E11.9 IDD 300 each 3 ??? pqrfkvlszpe-fqhgdjsoa-rhwvpoft (Trelegy Ellipta) 100-62.5-25 mcg Disk with Device Inhale 1 Inhalation into the lungs daily. 60 each 3 ??? Crystal Pen Needle 32 gauge x 5/32 Needle Inject 1 each subcutaneously 4 times daily. 400 each 3 ??? pen needle, diabetic (NovoTwist) 32 gauge x 1/5 Needle 1 [facility]Non- Drug; Combo Route) route 4 times daily [...] 0 ??? lancets (FreeStyle Lancets) 28 gauge [place] [...] MOLLY PO TID 30 tablet 3 ??? betamethasone-calcipotriene (TACLONEX SCALP) 0.005-0.064 % Suspension Apply twice daily for 5 days out of the week 120 g 3 ??? Calcipotriene 0.005 % Solution as needed. ??? estradiol (ESTRACE) 0.01 % (0.1 mg/gram) Cream Place vaginally as needed. 4 ??? Clobetasol-Emollient 0.05 % Foam Apply twice daily to worse scalp psoriasis on weekends-only as needed dispense 3 bottles please 200 g 0 ??? ondansetron (ZOFRAN) 4 mg Tablet Take 1 tablet by mouth every 8 hours as needed for Nausea. 20 tablet 3 ??? vitamin with fkqhymzp-Fe-Gzum-FA Tablet Take 1 tablet by mouth daily. ??? metroNIDAZOLE (METROCREAM) 0.75 % Cream Apply topically 2 times daily. 45 g 5 ??? fluticasone (VERAMYST) 27.5 mcg/actuation [place], Suspension 2 sprays by Nasal route daily. Indications: Allergic Rhinitis ??? ALPRAZolam (XANAX) 1 mg tablet Take 1 mg by mouth 3 times daily as needed. ??? aripiprazole (ABILIFY) 30 mg tablet Take 30 mg by mouth daily. ??? pregabalin (Lyrica) 75 mg Capsule Take 1 capsule by mouth 2 times daily. 60 tablet 3 ??? mupirocin (BACTROBAN) 2 % Cream Apply topically 3 times daily. Ok to sub ointment if cream not covered 15 g 1 No current facility-administered medications on file prior to visit. ROS: MSK: + pain SKIN: + warts NEURO: + Sensory changes The remainder of 10 ROS were reviewed and negative. OBJECTIVE: GEN: NAD, alert, awake DERM: Hyperkeratotic lesions with petechial bleeding and absent skin lines x3 noted plantar right forefoot--improving. Slight hyperkeratosis subfirst metatarsal head right. No open lesions. No signs ofinfection. No increased warmth. No drainage. No erythema proximal streaking. Site of foreign body rem oval right foot well-healed. No evidence of foreign body appreciated today. VASC: No edema. No rest pain. No color changes. Cap refill brisk. Pedal pulses palpable. NEURO: + Neuropathic changes. Blanchard Viri monofilament testing 7 out of 10. MSK: Tenderness on exam plantar right foot overlying skin lesions. No other sites palpable pain. ASSESSMENT: Painful plantar wart right foot Type 2 diabetes mellitus with peripheral neuropathy History of foreign body removal right foot PLAN: Patient reexamined in clinic. Following verbal consent and application of 2% topical lidocaine sharply debrided painful skin lesions right foot x3 using sterile #15 scalpel as tolerated. Covered with salicylic acid pad and Medipore tape. Instructed patient to continue with Efudex 5% and duct tape. Proper use reviewed. Encouraged follow-up with dermatology for possible cryotherapy. Discussed with patient treatment options for peripheral neuropathy. Discussed participation in neuropathy study with naltrexone. Patient expressed interest. Explained to patient she will be directly contacted by study investigators. Continue strict glucose control, preventative techniques, supportive shoe gear, avoidance of barefoot ambulation. Offloading metatarsal pads advised. If any worsening contact clinic. All questions answered. Patient verbalized understanding of all instructions. FOLLOW UP: As scheduled or sooner if any concerns or changes arise Esme Edwards DPM [employer], [facility] documented in this encounter Plan of Treatment Upcoming Encounters Date Type Specialty Care Team Description 08/06/2022 Office Visit Plastic Surgery Peña Woodward MD [facility] SUR[facility] [place], [place] [address] (Wo rk) 08/19/2022 Office Visit Podiatry Tom Titus DPM [place], [place] [address] (Wo rk) 09/08/2022 Office Visit Internal Medicine Janay Hay MD [facility] [place], [place] [address] (Wo rk) 10/12/2059 Hospital Encounter Surgery Jim Hanley MD [facility] [place], [place] [address] (Wo rk) Scheduled Procedures Name [...] as of this encounter Visit Diagnoses Diagnosis Type 2 diabetes mellitus with peripheral neuropathy Plantar wart Right foot pain Pain in limb documented in this encounter Care Teams Practice Representative Relationship Specialty Start Date End Date Tom Hay MD PCP - General Internal Medicine 09/15/18 [facility] [place] [address] documented as of this encounter
--- OUTSIDE RECORDS SUMMARY | 2022-07-12 00:45 | XMS_ITS | Encounter Summary ---
:1965 Author Organization [facility] Address [facility] [place] [address] Care Team Providers Name Role Phone Tom Hay MD Primary Care Provider Reason for Visit Reason Onset Date Comments Other 03/26/2021 Encounter Details Date Type Department Care Team Description 03/26/2021 Telephone Internal Medicine at [facility]uary Other [facility] [place] [address] Social History Tobacco Use Types Packs/Day [...] this encounter Miscellaneous Notes Telephone Encounter - Mark January - 03/26/2021 2:07 PM EDT Message: Sallie Puente called in stating that they need office notes as to why the patient needs diabetic shoes. Sallie states they also need any notes to help with the prescription that was sent over for the shoes. Ask caller their first and last name and relationship to the patient: Sallie Puente Best time to call back: anyOk to leave a message: Ok to send my- message: Offered Appointment: MA/Nurse/Stuart contacted via: Message: y Call: n Pager: n documented in this encounter Plan of Treatment Upcoming Encounters Date Type Specialty Care Team Description 08/06/2022 Office Visit Plastic Surgery Peña Woodward MD [facility] PLAST[facility] SUR[facility]ERY [place], [place] [address] (Wo rk) 08/19/2022 Office Visit Podiatry Tom Titus DPM [place], [place] [address] (Wo rk) 09/08/2022 Office Visit Internal Medicine Janay Hay MD [facility] [place], [place] [address] (Wo rk) 10/12/2059 Hospital Encounter Surgery Jim Hanley MD [facility] [place], [place] [address] (Wo [...] on filedocumented in this encounter Care Teams Coating Machine Feeder Relationship Specialty Start Date End Date Tom Hay MD PCP - General General Internal Medicine 09/15/18 [facility] [place] [address] documented as of this encounter
--- OUTSIDE RECORDS SUMMARY | 2022-07-12 00:46 | XMS_ITS | Encounter Summary ---
:1965 Author Organization [place] [address] Care Team Providers Name Role Phone Tom Hay MD Primary Care Provider Reason for Visit Reason Comments Follow-up bilateral shoulder and arm p ain Encounter Details Date Type Department Care Team Description 12/12/2020 Office Visit [facility] Rashard Hanley, S /P C6 corpectomy, at [facility] C5-7 ACCF 11/30/[address] [facility] [place] [facility] [facility] [id number] [place] [address] [phone] Social History Tobacco Use Types Packs/Day Years [...] Sign Reading Time Taken Comments Blood Pressure 117/69 12/12/2020 11:57 AM EST Pulse 112 12/12/2020 11:57 AM EST Temperature 37.1 ??C (98.8 ??F) 12/12/2020 11:57 AM EST Respiratory Rate - - Oxygen Saturation - - Inhaled Oxygen Concentration - - Weight 90.7 kg (200 lb) 12/12/2020 11:57 AM EST Height 165.1 cm (5' 5) 12/12/2020 11:57 AM EST Body Mass Index 33.28 12/12/2020 11:57 AM EST documented in this encounter Progress Notes Ernie Rich MD - 12/12/2020 12:20 PM EST Chief complaint: Problem List Items Addressed This Visit S/P C6 corpectomy, C5-7 ACCF 11/30/20 Dr. Hanley History of present illness: Joseline Rose is a 55 y.o. year-old female who returns in clinic approximately 2 weeks status post C6 corpectomy, C5-7 anterior cervical fusion on 30 November. She has done reasonably well, although she is continuing to have pain in her neck and her bilateral hands. She has noted that her sensation is returned to her hands and that she is feeling much better about that. She notes no weakness in the hands. She is still taking oxycodone daily, every 4-6 hours. She is taking Tylenol. She asked continues to smoke at least 1/2 pack a day. She actually returns to clinic a few days early due to concerns of wound dehiscence reported from outside providers after she presented due to some oozing from her wound. She states that after she tooka shower she felt like her incision was bleeding and it was recommended she go to a nearby emergency department. They redressed the neck and she presents today. Past medical history: Patient Active Problem List Diagnosis Date Noted ??? COPD (chronic obstructive pulmonary disease) 01/27/2018 ??? Bipolar II disorder 01/27/2018 ??? Vitamin D deficiency 01/27/2018 ??? Essential hypertension 01/27/2018 ??? Hyperlipidemia 01/27/2018 ??? Uncontrolled type 2 diabetes mellitus with hyperglycemia 08/18/2016 ??? Asthma 06/05/2011 ??? Hypothyroid 06/05/2011 ??? Depression 06/05/2011 ??? Sleep apnea 06/05/2011 ??? Mild cognitive impairment, so stated 01/27/2018 ??? DDD (degenerative disc disease), cervical 07/17/2014 ??? Dermatofibroma 12/14/2012 ??? GERD (gastroesophageal reflux disease) 06/05/2011 ??? Chronic UTI 06/05/2011 ??? Chronic migraine without aura 01/22/2011 ??? Scalp psoriasis 11/06/2010 ??? Acne vulgaris 01/27/2018 ??? Seasonal allergies 01/27/2018 ??? Combined forms of age-related cataract of both eyes 08/18/2016 ??? Myopia of both eyes with astigmatism and presbyopia 07/29/2015 ??? Bilateral dry eyes 07/29/2015 ??? Hemangioma - left shoulder 01/19/2014 ??? Atypical nevus of back 03/05/2012 ??? Cervical radicular pain 07/28/2011 ??? Bilateral shoulder pain 07/25/2011 ??? Carpal tunnel syndrome on both sides 07/25/2011 ??? S/P C6 corpectomy, C5-7 ACCF 11/30/20 Dr. Hanley 11/30/2020 ??? Cervical spondylosis with myelopathy 11/06/2020 ??? Colon polyp 07/17/2020 ??? Schizoaffective disorder 07/04/2020 ??? Fibromyalgia 10/01/2018 Medications: ??? oxyCODONE (Roxicodone) 5 mg Tablet ??? acetaminophen (Tylenol) 500 mg Tablet ??? senna-docusate (Pericolace) 8.6-50 mg Tablet ??? polyethylene glycoL (Miralax) 17 gram/dose Powder ??? valACYclovir (VALTREX) 1 gram Tablet ??? methocarbamoL (ROBAXIN) 750 mg Tablet ??? blood sugar diagnostic strips Strip ??? hdedzuydmrq-ekepfeayq-jpbsogux (Trelegy Ellipta) 100-62.5-25 mcg Disk with Device ??? Crystal Pen Needle 32 gauge x 5/32 Needle ??? pen needle, diabetic (NovoTwist) 32 gauge x 1/5 Needle ??? DULoxetine DR (Cymbalta) 60 mg Capsule, Delayed Release(E.C.) ??? glipiZIDE (Glucotrol) 5 mg Tablet ??? esomeprazole (NexIUM) 40 mg Capsule, Delayed Release(E.C.) ??? nystatin (Mycostatin) 100,000 unit/mL Suspension ??? semaglutide 1 mg/dose (2 mg/1.5 mL) Pen Injector ??? albuteroL (ProAir HFA) 90 mcg/actuation HFA Aerosol Inhaler ??? amLODIPine (Norvasc) 10 mg Tablet ??? atorvastatin (Lipitor) 20 mg Tablet ??? BD Alcohol Swabs Pads, Medicated ??? Vitamin D 25 mcg (1,000 unit) Tablet ??? cholecalciferol, Vitamin D3, 1,250 mcg (50,000 unit) Capsule ??? levothyroxine (Synthroid) 150 mcg Tablet ??? levothyroxine (Synthroid) 25 mcg Tablet ??? meclizine (Antivert) 25 mg Tablet ??? ipratropium-albuteroL (DUONEB) 0.5 mg-3 mg(2.5 mg base)/3 mL Solution for Nebulization ??? blood-glucose meter (FREESTYLE) Kit ??? naratriptan (Amerge) 2.5 mg Tablet ??? ondansetron ODT (Zofran-ODT) 4 mg Tablet, Rapid Dissolve ??? lancets (FreeStyle Lancets) 28 gauge Misc ??? hydroCHLOROthiazide (Hydrodiuril) 50 mg Tablet ??? cycloSPORINE (Restasis) 0.05 % Dropperette ??? varenicline (Chantix) 1 mg Tablet ??? clotrimazole (MYCELEX) 10 mg Gary ??? betamethasone-calcipotriene (TACLONEX SCALP) 0.005-0.064 % Suspension ??? Calcipotriene 0.005 % Solution ??? estradiol (ESTRACE) 0.01 % (0.1 mg/gram) Cream ??? Clobetasol-Emollient 0.05 % Foam ??? ondansetron (ZOFRAN) 4 mg Tablet ??? vitamin with slrjafjf-Qs-Eypq-FA Tablet ??? metroNIDAZOLE (METROCREAM) 0.75 % Cream ??? fluticasone (VERAMYST) 27.5 mcg/actuation [place], Suspension ??? ALPRAZolam (XANAX) 1 mg tablet ??? aripiprazole (ABILIFY) 30 mg tablet Allergies: Allergies Allergen Reactions ??? Latex Rash ??? Metformin Nausea And Vomiting ??? Clonazepam Nausea And Vomiting Nauseous, itchy ??? Clonidine (Pf) Other (See Comments) olea johnsons syndrome ??? Codeine Itching and Nausea Only ??? Hydrocodone-Acetaminophen Itching rash ??? Methadone Nausea And Vomiting Had trouble walking and talking after taking for a few days Social history: Social History Tobacco Use ??? Smoking status: Current Every Day Smoker Packs/day: 0.50 Years: 13.00 Pack years: 6.50 Types: Cigarettes ??? Smokeless tobacco: Never Used Substance Use Topics ??? Alcohol use: No Alcohol/week: 0.0 standard drinks Review of systems: No chest pain or shortness of breath No fevers, night sweats or chills Vital signs: Temp: [37.1 ??C (98.8 ??F)] Physical Exam: Well-appearing woman in no acute distress. In hard cervical collar Collar is removed and Steri-Strips removed from her neck incision. This reveals a well-healing incision without evidence of dehiscence or drainage. She has intact sensation C5-T1 Upper extremity major muscle groups 5/5 in strength Imaging: Personal review of the patient's imaging reveals: X-rays obtained today show intact anterior cervical hardware C5-7 without evidence of complication. Assessment: 55 y.o. year-old female 2 weeks postop from C6 corpectomy with C5-7 anterior cervical fusion. Doing well postoperatively. Plan: Remain in hard collar for 6 weeks, transition to soft collar at that time. Follow up: 8 to 12 weeks with lateral x-ray of the cervical spine at that time, with swimmer's view. Ernie Rich MD p [phone] 12/12/20 12:17 PM This plan was discussed with the patient and they are in agreement. All of the patient's questions were answered. The above dictation was made with voice recognition software Rashard Hanley MD - 12/12/2020 12:20 PM EST Images from the original note were not included. [facility] Rashard Hanley MD [place] Tom Hay MD [facility] [address] [place] [address] Dear Colleagues, I had the pleasure of seeing this patient at the [facility] for surgical evaluation. Procedure: C6 corpectomy C5-7 instrumentation arthrodesis 11/30/2020 Wound issue initially. Incision looks good today. Little sensitive. She is wearing the collar. X-rays are consistent with a surgical intervention. She remains neurologically intact. Already canceled appointment on 12/19/2020. We will move it out to about 8 weeks. She can continue toincrease her activity. Call us if there is any incisional problems. At the next appointment likely start her physical therapy. Plan: 1. Follow-up in approximately 8 weeks. 2. Refill medications. Sincerely, Rashard Hanley MD [place] [facility] Paint Stripper - Orthopedic Spine Surgery Equipment Sterilizer - Department of Orthopedic Surgery / [employer] Ton Cylinder Inspector - [facility] 12/12/2020 Spine Center Response Trends Patient-reported scores: myD-H Spine Questionnaire responses 04/25/2014 10/29/2018 07/04/2020 09/18/2020 12/12/2020 VR36 - Physical Function (Range: 0-100) 15.3 - - - - VR36 - Bodily Pain (Range: 0-100) 28.4 - - - - VR36 - PCS (Range: 0-100) 31.2 - - - - VR36 - MCS (Range: 0-100) 46.1 - - - - Oswestry Disability Index (Range: 0-100) - 74 (Crippled) - - - Neck Disability Index (Range: 0-100) 76 (Complete disability) 80 (Complete disability) - 78 (Complete disability) 70 (Complete disability) PROMIS-10 Physical Health Score - 23.5 37.4 23.5 32.4 PROMIS-10 Mental Health Score - 36.3 53.3 38.8 45.8 documented in this encounter Plan of Treatment Upcoming Encounters Date Type Specialty Care Team Description 08/06/2022 Office Visit Plastic Surgery Peña Woodward MD [facility] P[facility] SUR[facility] [place], [place] [address] (Flores ordonez) 08/19/2022 Office Visit Podiatry Tom Titus DPM [place], [place] [address] (Flores ordonez) 09/08/2022 Office Visit Internal Medicine Janay Hay MD [facility] [place], [place] [address] (Flores ordonez) 10/12/2059 Hospital Encounter Surgery Jim Hanley MD [facility] [place], [place] [address] (Flores ordonez) Scheduled Procedures Name [...] who have questions please contact the health pharmacist critical care that requested your imaging first. ? Narrative 02/05/2021 1:23 PM EDT EXAMINATION: XR CERVICAL SPINE 2 OR 3 VIEWS CLINICAL HISTORY: AP and LAT S/P Cervica l neck surgery, 11-30-20 TECHNIQUE: 3 views of the cervical spine, out of wiely pport collar COMPARISON: Radiographs November 30 and [...] ho have questions please contact the health pharmacist critical care that requested your imaging first. Rashard Hanley MD IMG DX ORDERABLES documented in this encounter Visit Diagnoses Diagnosis S/P C6 corpectomy, C5-7 ACCF 11/30/20 Dr. Hanley Arthrodesis status S/P C6 corpectomy, C5-7 ACCF 11/30/20 Dr. Hanley Arthrodesis status documented in this encounter Care Teams Opal Polisher Relationship Specialty Start Date End Date Tom Hay MD PCP - General General Internal Medicine 09/15/18 [facility] [address] documented as of this encounter
--- OUTSIDE RECORDS SUMMARY | 2022-07-12 00:46 | XMS_ITS | Encounter Summary ---
:1965 Author Organization [facility] [place] [address] Care Team Providers Name Role Phone Tom Hay MD Primary Care Provider Reason for Visit Auth/Cert Specialty Diagnoses / Procedures Referred By Contact Refer red To Contact Diagnoses Cervical spondylosis with myelopathy Cervical myeloradiculopathy progressive Cervical myeloradiculopathy progressive Procedures PRO REMV VERT BODY, CERV, ONE SGMT PRO ANTERIOR INSTRUMENTATION 2-3 VERTEBRAL SEGMENTS PRO APPLY/REMOVE CRANIAL FIX DEV PRO INSERT BIOMCHN DEV VRT CORPECTOMY DEFECT W/ARTHRD PRO CERV SPINE FUSN, ANTER, BELOW C2 PRO SPINAL FUSION, ANT, EA A DNL LEVEL @ANTERIOR CX CORPECTOMY, ONE LVL (WRVU 26.1) ANT. SPINAL INSTRUMENTATION, 2-3 VERTEBRA, SEGMENTED (WRVU 11.94) PLACEMENT-CRANIAL TONGS (INCLUDING REMOVAL) (WRVU 4) INSERTION INTERVERTEBRAL BIO MECH DEV TO VERTEBRAL CORPECTOMY DEFECT, EA CONTIGUOUS DEFECT (WRVU 5.5) ANT. CX. FUSION INCLUD. MIN. DISCECTOMY; BELOW C2 (WRVU 17.69) ANT. FUSION, INCLUDE. MIN. DISCECTOMY; EA. ADD'L LVL (WRVU 5.52) MODIFIER GLOBUS PROVIDENCE MODIFIER C5 MODIFIER C6 MODIFIER C7 Referral ID Status Reason Start Date Expiration Date Visits Requ ested Visits Authorized [id number] 1 1 Encounter Details Date Type Department Care Team Description 11/30/2020 Surgery Main Operating Room Kurtis Hanley MD @ANTERIOR CX [facility] CENTE R CORPECTOMY, ONE LVL [facility] (WRVU 26.1) [facility] [place] [address] [place] [phone] Social History Tobacco Use Types Packs/Day Years [...] Sign Reading Time Taken Comments Blood Pressure 125/88 11/30/2020 5:00 PM EST Pulse 80 11/30/2020 5:00 PM EST Temperature 36.8 ??C (98.2 ??F) 11/30/2020 10:03 AM EST Respiratory Rate 12 11/30/2020 5:00 PM EST Oxygen Saturation 96% 11/30/2020 5:00 PM EST Inhaled Oxygen Concentration - - Weight 90.7 kg (200 lb) 11/30/2020 10:15 AM EST Height 165.1 cm (5' 5) 11/30/2020 10:15 AM EST Body Mass Index 33.28 11/30/2020 10:15 AM EST documented in this encounter Discharge Summaries Ene Villegas, [employer]ER - 12/01/2020 3:48 PM EST Images from the original note were not included. Discharge Summary Patient Name: Joseline Rose Patient Age: 55 y.o. Language: Beninese Race: White Ethnicity: Not nor Admit date: 11/30/2020 Discharge date and time: 12/01/2020 Attending Physician: Rashard Hanley MD Discharge Physician: Rashard Hanley MD Follow-up Recommendations for Providers: See discharge instructions for additional details. Future Appointments Date Time Provider Department Center 12/04/2020 3:00 PM Eddi Hernandez DPM Pod [facility] 12/19/2020 10:30 AM [facility] DX ROOM 1 Xray [facility] Rad 12/19/2020 11:20 AM [address] [facility] Pain [place] [facility] 01/30/2021 3:40 PM Tom Hay MD [facility] Provider Contact Information: Rashard Hanley MD Spine Center: [phone] After hours and weekends, call [facility]ander, , and have the Orthopedic resident paged. Discharge Diagnoses (Hospital Problems) and Secondary Diagnoses (Chronic Problems): Active Hospital Problems Diagnosis ??? S/P C6 corpectomy, C5-7 ACCF 11/30/20 Dr. Hanley ??? DDD (degenerative disc disease), cervical ??? Cervical spondylosis with myelopathy Resolved Hospital Problems No resolved problems to display. Active Non-Hospital Problems Diagnosis ??? COPD (chronic obstructive pulmonary disease) ??? Bipolar II disorder ??? Vitamin D deficiency ??? Essential hypertension ??? Hyperlipidemia ??? Uncontrolled type 2 diabetes mellitus with hyperglycemia ??? Asthma ??? Hypothyroid ??? Depression ??? Sleep apnea ??? Mild cognitive impairment, so stated ??? Dermatofibroma ??? GERD (gastroesophageal reflux disease) ??? Chronic UTI ??? Chronic migraine without aura ??? Scalp psoriasis ??? Acne vulgaris ??? Seasonal allergies ??? Combined forms of age-related cataract of both eyes ??? Myopia of both eyes with astigmatism and presbyopia ??? Bilateral dry eyes ??? Hemangioma - left shoulder ??? Atypical nevus of back ??? Cervical radicular pain ??? Bilateral shoulder pain ??? Carpal tunnel syndrome on both sides ??? Colon polyp ??? Schizoaffective disorder ??? Fibromyalgia Operations/Major Procedures: 11/30/2020 Surgeon(s) and Role: * Rashard Hanley MD - Primary * Stan Lopez MD - Resident * Ilir Coughlin MD - Resident Procedure(s): 1. C6 corpectomy 2. Application of interbody cage C5-7 3. Anterior instrumentation C5-7 4. Anterior arthrodesis C5-7 5. Application of local autograft 6. Spinal cord monitoring 7. Application removal Suhail walker History of Presentation: Joseline Rose is a 55 y.o. female with cervical radiculopathy and myelopathy. Severe cervical spondylosis and central stenosis was foraminal stenosis C5-6 and C6-7. Risk-benefit surgical procedurewere discussed with her in detail. All questions were answered. Consents reviewed and signed. Hospital Course: Joseline Rose was admitted for the above operation. Operative course was uneventful. On POD#1 she was allowed out of bed ad oz, with no bending or twisting. The patient was instructed to wear a [place] at all times. These parameters were reinforced by physical therapy. On POD#1 was transitioned to oral pain medications and was comfortable. The wolfe catheter was removed on POD#1 and she was voiding without difficulty. On POD#1 the dressing was dry and intact and the wound was benign. Drain removed on POD#1, drain site benign. She did not have a bowel movement prior to discharge but was passing flatus and eating and drinking well. Prior to discharge the patient was afebrile, with stable vitalsigns and on POD#1, was deemed stable for discharge to home. Of note: POD#0-1 patient BS 240-320. Patient received 4mg decadron intraoperatively. Patient restarted on home glipizide, mealtime insulin coverage added, and SSI increased. Prior to discharge patient BS 150-170's . Vital Signs at Discharge: Weight: Wt Readings from Last 1 Encounters: 11/30/20 90.7 kg (200 lb) Height: Ht Readings from Last 1 Encounters: 11/30/20 165.1 cm (5' 5) HC: HC Readings from Last 1 Encounters: No data found for HC BMI: Body mass index is 33.28 kg/m??. Last value Range last 24 hrs Temperature Temp: 36.8 ??C (98.2 ??F) Temp: [36.5 ??C (97.7 ??F)-36.8 ??C (98.2 ??F)] Heart Rate Heart Rate: 80 Heart Rate: [67-95] Blood Pressure BP: 129/77 BP: (99-166)/(75-100) Respiratory Rate Resp: 16 Resp: [10-16] SpO2 SpO2: 96 % SpO2: [91 %-98 %] Art BP BP (Arterial Line): 151/72 BP (Arterial Line): (151-198)/(72-107) Functional and Cognitive Status: Patient mobilizing with assistance and FWW, cognitively intact at baseline mental status at time of discharge. Important Lab Data: Last 3 wbc, hgb, hct plt Recent Labs 12/01/20 0456 11/22/20 1415 07/04/20 1619 WBC 17.2* 11.9* 11.0* HGB 13.4 14.4 15.1 HCT 39.5 43.1 46.0* PLATELET 252 336 300 Last 3 Lytes Recent Labs 12/01/20 0456 11/22/20 1415 10/29/20 1519 NA 136 135 136 K 4.3 3.9 4.1 CL 102 99 100 CO2 25 27 26 BUN 8 11 15 CREATININE 0.63* 0.68* 0.82 Last 3 Coags No results for input(s): PT, INR, PTT in the last 168 hours. Studies: XR Cervical Spine 1 View Result Date: 11/30/2020 EXAMINATION: XR CERVICAL SPINE 1 VIEW CLINICAL HISTORY: Cervical myeloradiculopathy progressive TECHNIQUE: 1 views of the cervical spine COMPARISON: Radiographs from earlier same day. Impression: Patient is intubated. Vertebral bodies are imaged down to C4. The lower cervical spine is obscured by soft tissues of the shoulder. There appears to be interval ACDF at the lower cervical spine. Metallic clamp projects over the C2-C3 facet joint. Recommend postoperative radiographs with the shoulders down when able. I have personally reviewed the image(s) and the resident's interpretationand agree with the findings, Moises Head MD at 11/30/2020 4:48 PM Thank you for letting us participate in the care of this patient. For questions regarding this report, please contact the number below. Cervical Spine 1 View Result Date: 11/30/2020 EXAMINATION: XR CERVICAL SPINE 1 VIEW CLINICAL HISTORY: Cervical myeloradiculopathy progressive 55-year-old female TECHNIQUE: 1 views of the cervical spine COMPARISON: Lateral view same day FINDINGS: Overlying surgical devices, intubated patient. Anterior familia at the level of the superior aspect of theC5 vertebral body. As above Thank you for letting us participate in the care of this patient. For questions regarding this report, please contact the number below. Cervical Spine 1 View Result Date: 11/30/2020 EXAMINATION: XR CERVICAL SPINE 1 VIEW CLINICAL HISTORY: Cervical myeloradiculopathy progressive TECHNIQUE: Cross table lateral view of the cervical spine, portable in OR at 1340 COMPARISON: RadiographsDecemb2019 and November 30, 2020; CT September 18, 2020 FINDINGS: The image evaluates to the C5 vertebral body. Thin metallic probe indicates the anterior C5 vertebral body. Additional equipment including airway tube, overlying monitor wires and clamp projecting over the skull base. No malalignment or acute abnormality. Thin metallic probe indicates the anterior C5 vertebral body. Thank you for letting us participate in the care of this patient. For questions regarding this report, please contact the number below. Cervical Spine 1 View Result Date: 11/30/2020 EXAMINATION: XR CERVICAL SPINE 1 VIEW CLINICAL HISTORY: Cervical myeloradiculopathy progressive 55-year-old female TECHNIQUE: 1 views of the cervical spine COMPARISON: Cervical spine of 11/30/2020, 09/18/2020. FINDINGS: Endotracheal tube, multiple leads and overlying clamp device. The visualized cervical vertebral bodies are appreciated, with mild spondylitic change. A radiopaque familia extends anteriorly, although the tip is not well visualized, approximately location of the C5/C6 level. As above. Thank you for letting us participate in the care of this patient. For questions regarding this report, please contact the number below. Cervical Spine 1 View Result Date: 11/30/2020 EXAMINATION: XR CERVICAL SPINE 1 VIEW CLINICAL HISTORY: cervical corpectomy TECHNIQUE: Cross table lateral views of the cervical spine, portable in operating room COMPARISON: CT and radiographs September 18, 2020 FINDINGS: Lateral view images through the C5 vertebral body. The visualized vertebrae are intact with preserved height. C4-5 intervertebral disc space narrowing with small endplate osteophytesand mild facet joint osteoarthropathy are unchanged. External monitoring leads, airway tubing and surgical clamp in the anterior lower neck soft tissues are seen. Cervical spondylosis and facet arthropathy, intraoperative. No malalignment. Thank you for letting us participate in the care of this patient. For questions regarding this report, please contact the number below. Cervical Spine 2 or 3 Views Result Date: 11/30/2020 EXAMINATION: XR CERVICAL SPINE 2 OR 3 VIEWS CLINICAL HISTORY: S/P C6 corpectomy AP and lateral upright please TECHNIQUE: 3 views of the cervical spine COMPARISON: Radiographs of the cervical spine 07/30/2021. CT of the cervical spine 09/18/2020 FINDINGS: Status post ACDF at C5-C7. The inferior aspect of the hardware is not well-visualized on the lateral view but is visualized on the swimmer's view andAP view. C7 and T1 are obscured on the lateral view and swimmer's view. There is soft tissue edema within the prevertebral soft tissues of C4-C6. There is 4mm anterolisthesis of C3 on C4 and 4 mm anterolisthesis of C4 and C5, new compared to prior radiographs and increased compared to 09/18/2020 CT. Normal predental interval. Drain tubing projects anterior to C5-C6. 1. Status post ACDF at C5-C7. 2. Increased anterolisthesis of C3 on C4 and C4 on C5 compared to prior CT and radiographs. Thank you for letting us participate in the care of this patient. For questionsregarding this report, please contact the number below. Pending Studies and Lab Data at Discharge: * No orders in the log * Transfusions: No Discharge Conditions/Prognosis: Stable, awake, and alert. Mobilizing as noted above, pain controlledon oral medications. Discharge to: Home with VNA for home PT HOME HEALTH CARE AGENCY: [facility]. PHONE: [phone] FAX: [phone] Updated Allergies/ADRs: Allergies Allergen Reactions ??? Metformin Nausea And Vomiting ??? Clonidine (Pf) Other (See Comments) olea johnsons syndrome ??? Codeine Itching and Nausea Only ??? Methadone Nausea And Vomiting Had trouble walking and talking after taking for a few days Immunizations Given this Hospitalization: Immunization History Administered Date(s) Administered ??? Influenza PF, Split 06/22/2017 ??? Influenza Vaccine PF, Quadrivalent 10/26/2020 ??? Pneumococcal Polyvalent 23 10/26/2020 ??? Tdap Vaccine 10/26/2020 Discharge Medications: Your Medications New Medications Dose Details acetaminophen 500 mg Tab Commonly known as: Tylenol Take 2 tablets by mouth every 8 hours. 1,000 mg Refills: 0 oxyCODONE 5 mg Tab Commonly known as: Roxicodone Take 1 tablet by mouth every 4 hours as needed for Pain. 5 mg Quantity: 42 tablet Refills: 0 polyethylene glycoL 17 gram/dose Powd Commonly known as: Miralax Take 17 g by mouth 2 times daily as needed for up to 30 days. 17 g Refills: 0 senna-docusate 8.6-50 mg Tab Commonly known as: Pericolace Take 2 tablets by mouth 2 times daily as needed for Constipation for up to 30 days. 2 tablet Refills: 0 Continued medications, unchanged Dose Details Abilify 30 mg Tab Take 30 mg by mouth daily. Generic drug: ARIPiprazole 30 mg Refills: 0 albuteroL 90 mcg/actuation Hfaa Commonly known as: [...] 10 mg Quantity: 90 tablet Refills: 3 atorvastatin 20 mg Tab Commonly known as: [...] Commonly known as: FREESTYLE 1 each by [facility].(Non-Drug; Combo Route) route as needed for Other. 1 each Quantity: 1 each Refills: 0 Calcipotriene 0.005 % Soln as needed. Refills: 0 Clobetasol-Emollient 0.05 % Foam Apply twice daily to worse scalp psoriasis on weekends-only as needed dispense 3 bottles please Quantity: 200 g Refills: 0 clotrimazole 10 mg Troc Commonly known as: MYCELEX DIS 1 MOLLY PO TID Quantity: 30 tablet Refills: 3 cycloSPORINE 0.05 % Dpet Commonly known as: Restasis Place 1 drop into both eyes every 12 hours. 1 drop Quantity: 180 vial Refills: [address] 60 mg Cpdr Commonly known as: Cymbalta Take 1 capsule by mouth daily. 60 mg Quantity: 90 capsule Refills: 3 esomeprazole 40 mg Cpdr Commonly known as: NexIUM Take 1 capsule by mouth 2 times daily. 40 mg Quantity: 180 capsule Refills: 3 estradioL 0.01 % (0.1 mg/gram) Crea Commonly known as: ESTRACE Place vaginally as needed. Refills: 4 fluticasone 27.5 mcg/actuation Spsn Commonly known as: [...] mg base)/3 mL Nebu Commonly known as: DUONEB Take 0.5 mg by nebulization 4 times [...] 750 mg Quantity: 30 tablet Refills: 0 metroNIDAZOLE 0.75 % Crea Commonly known as: METROCREAM Apply topically 2 times daily. Quantity: 45 g Refills: 5 * Crystal Pen Needle 32 gauge x / Ndle Inject 1 each subcutaneously 4 times daily. Generic drug: insulin needles (disposable) 1 each Quantity: 400 each Refills: 3 * NovoTwist 32 gauge x 1/5 Ndle [facility]Non-Drug; Combo Route) route 4 times daily as [...] 5 ML PO QID PRF THRUSH Quantity: 60 mL Refills: 0 ondansetron 4 mg Tab Commonly known as: Zofran Take 1 tablet by mouth every 8 hours as needed for Nausea. 4 mg Quantity: 20 tablet Refills: 3 ondansetron ODT 4 mg Tbdl Commonly known as: Zofran-ODT DISSOLVE 1 T UNDER THE TONGUE Q 6 H PRN Quantity: 20 tablet Refills: 0 vitamin with uajirvoq-Ux-Mtcp-FA Tab Take 1 tablet by mouth daily. 1 tablet Refills: 0 semaglutide 1 mg/dose (2 mg/1.5 mL) Pnij Inject 1 mg subcutaneously once a week. 1 mg Quantity: 12 Syringe Refills: 3 Trelegy Ellipta 100-62.5-25 mcg Dsdv Inhale 1 Inhalation into the lungs daily. Generic drug: juisxsywlhm-mrdfzbwvu-qxkedsso 1 Inhalation Quantity: 60 each Refills: 3 [...] tablets by mouth daily. Generic drug: cholecalciferol (Vitamin D3) 2,000 Units Quantity: 90 tablet Refills: 0 * cholecalciferol (Vitamin D3) 1,250 mcg (50,000 unit) Cap Take 1 capsule by mouth once a week. 1 capsule Quantity: 52 capsule Refills: 0 * This list has 6 medication(s) that are the same as other medications prescribed for you. Read thedirections carefully, and ask your doctor or other care provider to review them with you. STOPPED Medications cephALEXin 500 mg Cap Commonly known as: Keflex ibuprofen 800 mg Tab Commonly known as: IBU Smoking Status at Discharge: Social History Tobacco Use Smoking Status Current Every Day Smoker ??? Packs/day: 0.50 ??? Years: 13.00 ??? Pack years: 6.50 ??? Types: Cigarettes Smokeless Tobacco Never Used Instructions for Rehab Providers or PCP: See below Instructions Given to Patient at Discharge: Patient Instructions Orthopaedic Spine Surgery Discharge Instructions Activity: 1. Wear your cervical collar at all times 2. We recommend taking several walks every day and gradually increasing your distance and duration over the next 2-4 weeks. Diet: 1. Eat your normal diet, with adequate amounts of protein and fiber. 2. Narcotic medicationscan cause constipation, so increase your intake of fluids and fiber if you are taking them. 3. You should also take an vpmw-plg-iqfzgpb stool softener or laxative, such as Stephanie-colace or Miralax, to facilitate a bowel movement. Drivin. You are not allowed to drive if you are still requiring narcotic pain medication to manage your discomfort. 2. Since you are being sent home in a Cervical Collar, do not drive until you have been cleared by your physician at your follow-up appointment. Call the Spine Center or your Primary Care Physician if you have questions or concerns. Medication: 1. You are being discharged on a narcotic pain medication. Common side effects of this medication include drowsiness, nausea, and constipation. You should only take the smallest amount of pain medication that adequately controls your pain. 2. You may take Tylenol (acetaminophen) around the clock as directed on the package to help reduce the amount of narcotic medication you need. Do not take more than 3,000mg of acetaminophen in a 24 hour period. 3. You have had a spinal fusion surgery. DO NOT take any nonsteroidal anti- inflammatory medication (NSAID) such as Aleve, Ibuprofen, Motrin, Naprosyn, or Advil. 4. If you need a renewal of your pain medication, please contact the [facility] [place] Nursing staff at [phone]. Nursing staff will need to talk with you directly prior to refilling any postoperative medications. PRESCRIPTION RENEWAL REQUESTS CAN TAKE UP TO 2 BUSINESS DAYS TO PROCESS SO PLEASE PLAN ACCORDINGLY. Most pharmacies can now accept electronic narcotic pain medications prescriptions, but some do not. [place] Collar Instructions: 1. You are being sent home with a hard cervical collar. It must be worn at all times, including showers and while sleeping. 2. If you are required to wear the collar at all times, you may shower as usual with the collar in place. After showering your collar will need to be removed to dry your skin, check your skin integrity, and change the pads. To remove collar: sit upright, keep your head and neck steady in a neutral position (looking straight ahead). Your head should be maintained in a neutral position until the collaris back in position. After showers you should take care to remove any residual soap from your neck and to replace the wet pads with a clean, dry pair. You will be sent home from the hospital with extrapads and instructions on how to change them. 3. Do not put powder or lotion underneath the pads. 4. You should inspect your skin daily for redness or irritation caused by the collar. If you notice irritation or you see areas where the hard plastic from the collar is pressing against the skin, please call the [facility] [place] Nursing Line at the number below. 5. Wash the extra pads with mild soap, rinse well, and allow to air dry. Wound Care/Shower/Bath: 1. You have absorbable sutures under your skin that do not need to be removed. They are covered by steri-strips, gauze and a clear plastic Tegaderm dressing. 2. This dressing should stay in place until 3 days after your surgery. After 3 days, on 12/03/20, youmay remove the dressing and leave the incision uncovered as long as there is no continued drainage. If there is drainage, you should replace the dressing with a clean, dry gauze held in place with tape. If you replace the dressing, you will need to cover the dressing/incision with a waterproof dressing prior to showering. Any bandage over the incision should be dry at all times and should be replacedif wet. If the incision continues to drain after the initial surgical dressing is removed, please call the Spine Center at the number below. 3. After the dressing is removed, 3 days after surgery, the paper strips (steri- strips) should be kept in place. After 14 days you can remove the remaining steri-strips if they have not fallen off already. 4. For the first 3 days after surgery, shower with the clear plastic Tegaderm dressing covering yourincision to keep it dry. Do not allow the shower to spray directly on your dressing. After showeringcheck dressing to make sure it remains dry and intact. After 3 days, once the dressing has been removed, you may allow water to run over the incision when you shower but do not scrub the surrounding skin. Gently pat dry with a clean, dry towel after showering. 5. Do not soak the incision underwater (i.e. lakes, pools, hot tubs, bath tubs, etc.) for at least 4 weeks until the incision has completely healed. PLEASE CALL US AT [phone] TO SPEAK WITH A SPINE CENTER NURSE IF YOU EXPERIENCE THE FOLLOWING: ?? Fevers greater than 101.5 degrees Fahrenheit ?? Chills or night sweats ?? Nausea or vomiting ?? Wound Redness or drainage after the initial surgical dressing is removed ?? New numbness or tingling in your hands or feet ?? Incontinence of bowel or bladder ?? Any questions or concerns Important Phone Numbers: Clinical issues, nurse questions, medication renewals: [phone] Hanley: [phone] Evenings after 5pm and weekends you may contact the Orthopaedic resident corrections lieutenant: [phone], ask the extractor plant operator to page the Orthopaedic resident Follow Up Appointments: 1. You will have follow-up appointments at [facility] as indicated in the ???Future Appointments and Orders?? section of your discharge summary. If X-rays have been ordered for you prior to this appointmentyou will need to report to the Radiology department, desk 3T, 1 hour prior to your spine center appointment. 2. If you do not have a scheduled follow-up appointment listed at the time of discharge, you will benotified of your scheduled appointment on the next business day. Please call [phone] if you do not hear from us by that time, as your timely follow-up is very important to us. Future Appointments Date Time Provider Department Center 12/04/2020 3:00 PM Eddi Hernandez DPM MH Pod [facility] 12/19/2020 10:30 AM [facility] DX ROOM 1 MH Xray [facility] Rad 12/19/2020 11:20 AM Rashard Hanley MD [facility] Pain [facility] 01/30/2021 3:40 PM Tom Hay MD [facility]IM [facility] General Instructions None Future Appointments and Orders Future Appointments and Orders Future Appointments Provider Department Dept Phone 12/04/2020 3:00 PM Eddi Hernandez DPM Podiatry at [facility] Arrive at: Respiratory Support Technician Area 4M [phone] 12/19/2020 10:30 AM [facility] DX ROOM [address] [facility] Arrive at: Respiratory Support Technician Area 3T [phone] Please go to Respiratory Support Technician Area 3T ([place] Location). 12/19/2020 11:20 AM Rashard Hanley MD [facility] Arrive at: Respiratory Support Technician Area 3D [phone] 01/30/2021 3:40 PM Tom Hay MD Internal Medicine [place] [facility] Arrive at: Respiratory Support Technician Area 3M [phone] Future Orders Complete By Expires Referral to Home Health - at DISCHARGE [[id number] CPT(R)] As directed Process Instructions: Scheduling Instructions: Comments: DOCUMENTATION FOR VNA SERVICES (INCLUDING THOSE PATIENTS WITH MEDICARE COVERAGE REQUIRING HOME VNA SERVICES AND/OR HOSPICE SERVICES) PATIENT'S Discharge LOCATION: [address], [address] [place], [place] Senior Architectural Designer's Name: self In discussion with the attending physician, it is certified that this patient is under their care and that they, or a Nurse Practitioner,Clinical Nurse specialist or Physician Director Of Counterintelligence who is working directly with them, had a face to face encounter that meets the physician face to face encounter requirements with this patient on 12/01/2020 The encounter with the patient was in whole, or in part, for the following medical condition, which is the primary reason for home health care services: s/p C5-7 ACDF on 11/30/2020 In discussion with the provider, it is certified that, based on their findings, the following services are medically necessary for home health services. To provide the following care/treatments with the clinical findings supporting the need for servicesas follows: HOME CARE ORDERS: RN ORDERS:Assess wound or incision, vital signs, cardiopulmonary status, nutrition, hydration, elimination, meds effectiveness and management; reinforce education re diabetes management including but not limited monitoring blood glucose. NO SUTURE REMOVAL NEEDED. Dressing: Please remove tegaderm & gauze dressing on 12/03 (if patient has not). Incision can be left open to air PT ORDERS: Continue rehab for endurance, gait stability and strength with mobility and transfers. Home safety evaluation. Home exercise program if appropriate. OT: assess and continue rehab for managing ADL's Supervision of Home Health Aide (DETENTION DEPUTY) in assisting patient with ADLs HHHA: assist patient with ADLs as directed by OTR/L's Plan of prison HEALTH CARE AGENCY: [facility] [employer] PHONE: [phone] FAX: [phone] Start of care: 24-48 hours post-hospital discharge FOR MEDICARE ONLY: In discussion with the attending physician, it is certified that the clinical findings support that this patient is temporarily homebound because absences from home require considerable and taxing effort due to: spinal surgery resulting in gait disturbance with associated high fall risk requiring super vision/assistance of another person when outside home environment. Please note that any additional orders needs or changes will need to be obtained from this patient'sPCP: Tom Hay MD [facility] / [place] N* [phone] All A agencies which cover the area of patient's residence have been reviewed, either verbally or in writing, and patient/family have chosen the home health care agency noted Questions: Agency name and contact information: [facility] Patient location post discharge: [address], [place], [place] What services are requested: Registered Nurse Physical Therapy Occupational Therapy Home Health Aide Start date: Responsible MD post discharge contact info: PCP MD Tom Fragoso rolling [[id number] Custom] As directed Process Instructions: Scheduling Instructions: Comments: Joseline Mccain [place] [address] [place] [address] (D/C address (temporary): [address] [place], [place]) Telephone Information: Diagnosis:C6 Corpectomy, C5-7 ACDF with Unsteady gait Significant weakness, ataxia or gait abnormality Patient's: Hgt: 5'5 Wgt: 195 lbs VENDOR: [facility] Loc[facility] @ [place], [place] Ordering: Front wheel walker Deliver to 's hospital room #: 326A Questions: Vendor Name/Contact information: [facility] Primary Care Provider: Tom Hay MD [phone] Discharge References/Attachments None documented in this encounter Discharge Instructions Patient InstructionsDaingaThaoEne Lulu, SLACK LINE YARDER - 11/30/2020 5:17 PM EST Orthopaedic Spine Surgery Discharge Instructions Activity: 1. Wear your cervical collar at all times 2. We recommend taking several walks every day and gradually increasing your distance and duration over the next 2-4 weeks. Diet: 1. Eat your normal diet, with adequate amounts of protein and fiber. 2. Narcotic medicationscan cause constipation, so increase your intake of fluids and fiber if you are taking them. 3. You should also take an yykl-cxt-pcofqcp stool softener or laxative, such as Stephanie-colace or Miralax, to facilitate a bowel movement. Drivin. You are not allowed to drive if you are still requiring narcotic pain medication to manage your discomfort. 2. Since you are being sent home in a Cervical Collar, do not drive until you have been cleared by your physician at your follow-up appointment. Call the Spine Center or your Primary Care Physician if you have questions or concerns. Medication: 1. You are being discharged on a narcotic pain medication. Common side effects of this medication include drowsiness, nausea, and constipation. You should only take the smallest amount of pain medication that adequately controls your pain. 2. You may take Tylenol (acetaminophen) around the clock as directed on the package to help reduce the amount of narcotic medication you need. Do not take more than 3,000mg of acetaminophen in a 24 hour period. 3. You have had a spinal fusion surgery. DO NOT take any nonsteroidal anti- inflammatory medication (NSAID) such as Aleve, Ibuprofen, Motrin, Naprosyn, or Advil. 4. If you need a renewal of your pain medication, please contact the Spine Center Nursing staff at [phone]. Nursing staff will need to talk with you directly prior to refilling any postoperative medications. PRESCRIPTION RENEWAL REQUESTS CAN TAKE UP TO 2 BUSINESS DAYS TO PROCESS SO PLEASE PLAN ACCORDINGLY. Most pharmacies can now accept electronic narcotic pain medications prescriptions, but some do not. [place] Collar Instructions: 1. You are being sent home with a hard cervical collar. It must be worn at all times, including showers and while sleeping. 2. If you are required to wear the collar at all times, you may shower as usual with the collar in place. After showering your collar will need to be removed to dry your skin, check your skin integrity, and change the pads. To remove collar: sit upright, keep your head and neck steady in a neutral position (looking straight ahead). Your head should be maintained in a neutral position until the collaris back in position. After showers you should take care to remove any residual soap from your neck and to replace the wet pads with a clean, dry pair. You will be sent home from the hospital with extrapads and instructions on how to change them. 3. Do not put powder or lotion underneath the pads. 4. You should inspect your skin daily for redness or irritation caused by the collar. If you notice irritation or you see areas where the hard plastic from the collar is pressing against the skin, please call the Spine Center Nursing Line at the number below. 5. Wash the extra pads with mild soap, rinse well, and allow to air dry. Wound Care/Shower/Bath: 1. You have absorbable sutures under your skin that do not need to be removed. They are covered by steri-strips, gauze and a clear plastic Tegaderm dressing. 2. This dressing should stay in place until 3 days after your surgery. After 3 days, on 12/03/20, youmay remove the dressing and leave the incision uncovered as long as there is no continued drainage. If there is drainage, you should replace the dressing with a clean, dry gauze held in place with tape. If you replace the dressing, you will need to cover the dressing/incision with a waterproof dressing prior to showering. Any bandage over the incision should be dry at all times and should be replacedif wet. If the incision continues to drain after the initial surgical dressing is removed, please call the Spine Center at the number below. 3. After the dressing is removed, 3 days after surgery, the paper strips (steri- strips) should be kept in place. After 14 days you can remove the remaining steri-strips if they have not fallen off already. 4. For the first 3 days after surgery, shower with the clear plastic Tegaderm dressing covering yourincision to keep it dry. Do not allow the shower to spray directly on your dressing. After showeringcheck dressing to make sure it remains dry and intact. After 3 days, once the dressing has been removed, you may allow water to run over the incision when you shower but do not scrub the surrounding skin. Gently pat dry with a clean, dry towel after showering. 5. Do not soak the incision underwater (i.e. lakes, pools, hot tubs, bath tubs, etc.) for at least 4 weeks until the incision has completely healed. PLEASE CALL US AT [phone] TO SPEAK WITH A SPINE CENTER NURSE IF YOU EXPERIENCE THE FOLLOWING: ?? Fevers greater than 101.5 degrees Fahrenheit ?? Chills or night sweats ?? Nausea or vomiting ?? Wound Redness or drainage after the initial surgical dressing is removed ?? New numbness or tingling in your hands or feet ?? Incontinence of bowel or bladder ?? Any questions or concerns Important Phone Numbers: Clinical issues, nurse questions, medication renewals: [phone] Hanley: [phone] Evenings after 5pm and weekends you may contact the Orthopaedic resident corrections lieutenant: [phone], ask the extractor plant operator to page the Orthopaedic resident Follow Up Appointments: 1. You will have follow-up appointments at [facility] as indicated in the ???Future Appointments and Orders?? section of your discharge summary. If X-rays have been ordered for you prior to this appointmentyou will need to report to the Radiology department, desk 3T, 1 hour prior to your spine center appointment. 2. If you do not have a scheduled follow-up appointment listed at the time of discharge, you will benotified of your scheduled appointment on the next business day. Please call [phone] if you do not hear from us by that time, as your timely follow-up is very important to us. Future Appointments Date Time Provider Department Center 12/04/2020 3:00 PM Eddi Hernandez DPM Pod [facility] 12/19/2020 10:30 AM [facility] DX ROOM 1 Xray [facility] Rad 12/19/2020 11:20 AM [address] MD [facility] Pain Sp [facility] 01/30/2021 3:40 PM Tom Hay [address] [facility] GIM [facility] documented in this encounter Medications at Time of [...] 2 sprays by Nasal 0 27.5 mcg/actuation Agency, route daily. SuspensionIndications: Indications: allergic rhinitis Allergic Rhinitis senna-docusate Take 2 tablets by 60 tablet 0 12/01/2020 (Pericolace) 8.6-50 mg mouth 2 times daily 1 Tablet as needed for Constipation for up to 30 days. polyethylene glycoL Take 17 g by mouth 2 255 g 0 2020 (Miralax) 17 gram/dose times daily as 1 Powder needed for up to 30 days. oxyCODONE (Roxicodone) 5 Take 1 tablet by 42 tablet 0 12/01 mg Tablet mouth every 4 hours 1 as needed for Pain. acetaminophen (Tylenol) Take 2 tablets by 30 tablet 0 12/01 500 mg Tablet mouth every 8 hours. 1 valACYclovir (VALTREX) 1 Take 1 tablet by 30 tablet 3 10/26 gram TabletIndications: mouth 2 times daily. 2 Oral lesion rjqkivwabqx-mbhrjmpoe-zbs Inhale 1 Inhalation 60 each 3 0 10/26/2020 anter (Trelegy Ellipta) into the lungs 2 100-62.5-25 mcg Disk with daily. Device Crystal Pen Needle 32 gauge Inject 1 each 400 each 3 10/26/19 21 x 5/32 Needle subcutaneously 4 2 times daily. pen needle, diabetic 1 each by 100 each 5 10/26/2020 05 (NovoTwist) 32 gauge x Misc.(Non-Drug; 2 10/16 [...] by 1 each 0 10/26/202002/26 (FREESTYLE) Kit [facility]Non-Drug; 2 Combo Route) route as needed for [...] 5 2020 mg Tablet mouth daily. 2 betamethasone-calcipotrie Apply twice daily 120 g 3 ne (TACLONEX SCALP) for 5 days out of 1 0.005-0.064 % the week SuspensionIndications: Scalp psoriasis Clobetasol-Emollient 0.05 Apply twice daily to 200 g 0 08/29/2019 % FoamIndications: worse scalp 1 Psoriasis psoriasis on weekends-only as needed dispense 3 bottles please vitamin with Take 1 tablet by 0 gdisacto-Xt-Umlm-FA mouth daily. 2 Tablet metroNIDAZOLE Apply topically 2 45 g 5 10/29/201802/09 (METROCREAM) 0.75 % Cream times daily. 2 ALPRAZolam (XANAX) 1 mg Take 1 mg by mouth 3 0 tablet times daily as 2 needed. ARIPiprazole (Abilify) 30 Take 30 mg by mouth 0 mg Tablet daily. 2 documented as of this encounter Progress Notes Halle Fried RN - 12/01/2020 5:36 PM EST Patient discharge to home with VNA. family assessment worker remains unchanged from previous assessment documentation. Patient denies chest pain, nausea, or shortness of breath. RN discussed pain management, discharge instructions, and home medications. Patient received After Visit Summary and RN reviewed document with patient answering any questions that arose. Patient was encouraged to call with questions or concerns. Patient has all belongings, discharge packet, and prescriptions. DC summary sent to VNA service. Barbra Orosco RN - 12/01/2020 4:06 PM ESTSummary: [facility] OCM Care Management: D/C note Case Management Discharge Plan DISCHARGE PLANNING Anticipated Discharge Disposition: patient will discharge to temporary housing location in [place], [place]. Expected DC Date: 12/01/2020 Via private vehicle Steps Taken Toward Discharge: VNA and DME referral Critical access hospital. PHONE: [phone] FAX: [phone] [facility] [place], [place] FWW delivered to patient's room 326A by this note-freelance copywriter. Barbra Orosco, MSN, BSN, RN ACM-RN [facility] building manager Ene Turner APRN - 12/01/2020 3:24 PM EST ORTHOPAEDIC SURGERY INPATIENT PROGRESS NOTE Patient Name: Joseline Rose Age: 55 y.o. Surgery/Issue: Procedure(s): @ANTERIOR CX CORPECTOMY, ONE LVL (WRVU 26.1) ANT. SPINAL INSTRUMENTATION, 2-3 VERTEBRA, SEGMENTED (WRVU 11.94) PLACEMENT-CRANIAL TONGS (INCLUDING REMOVAL) (WRVU 4) INSERTION INTERVERTEBRAL BIOMECH DEV TO VERTEBRAL CORPECTOMY DEFECT, EA CONTIGUOUS DEFECT (WRVU 5.5) ANT. CX. FUSION INCLUD. MIN. DISCECTOMY; BELOW C2 (WRVU 17.69) ANT. FUSION, INCLUDE. MIN. DISCECTOMY; EA. ADD'L LVL (WRVU 5.52) MODIFIER GLOBUS PROVIDENCE MODIFIER C5 MODIFIER C6 MODIFIER C7 Attending: Rashard Hanley MD Date of surgery: 11/30/2020 SUBJECTIVE / INTERVAL HISTORY: Drain removed at bedside with anticipation of patient leaving. 3 complete holes visualized, tip intact. Patient tolerated without issues. Will continue to monitor prior to discharge. Ene Villegas APRN 12/01/2020 Barbra Puente RN - 12/01/2020 12:57 PM ESTSummary: [facility] Care Management: VNA and DME choice The patient has been provided a list of Home Health Agencies/DME vendors which serve their preferredgeographic area. A letter describing our affiliations was reviewed with them and they were educated about their right to choose where referrals are placed. Discussed and offered patient [facility] Star Quality Rating for Home care hand out but there is only one VNA who will be covering her preferred geographic locations Patient requests referral to [facility] Identify. PHONE: [phone] FAX: [phone]. Patient requests DME referral to: [facility] [place], [place] Expected date of discharge: 12/01/2020 Transportation: private vehicle COVID19 not detected 11/27/2020 (resulted 10:58 hours/[facility]) Referral routed to the Pharmacy Resource Tech for matching with agency/vendor and to provide any required information. Barbra Orosco RN building manager Pager: [phone] Carrie Mercado OT - 12/01/2020 12:57 PM EST Occupational Therapy Evaluation Patient profile: Joseline Rose is a 55 y.o. female 1 Day Post-Op C6 corpectomy and C5-7 ACDF. Past Medical History: Diagnosis Date ??? Allergy [...] (WRVU 11.94) performed by [facility]ard [facility]ley MDat [facility] MAIN OR ??? PRO APPLY/REMOVE CRANIAL FIX DEV Bilateral 11/30/2020 PLACEMENT-CRANIAL TONGS (INCLUDING REMOVAL) (WRVU 4) performed by Rashard Hanley MD at [facility] SARAH ??? PRO CERV SPINE FUSN, ANTER, BELOW C2 Bilateral 11/30/2020 ANT. CX. FUSION INCLUD. MIN. DISCECTOMY; BELOW C2 (WRVU 17.69) performed by Rashard Hanley MD [facility] MAIN OR ??? PRO INSERT BIOMCHN DEV VRT CORPECTOMY DEFECT W/ARTHRD Bilateral 11/30/2020 INSERTION INTERVERTEBRAL BIOMECH DEV TO VERTEBRAL CORPECTOMY DEFECT, EA CONTIGUOUS DEFECT (WRVU 5.5) performed by Rashard Hanley MD at [facility] MAIN OR ??? PRO LAP, CHOLECYSTECTOMY N/A 07/27/2015 LAPAROSCOPIC CHOLECYSTECTOMY performed by Fabricio Grant MD at [facility] MAIN OR ??? PRO REMV VERT BODY, CERV, ONE SGMT Bilateral 11/30/2020 @ANTERIOR CX CORPECTOMY, ONE LVL (WRVU 26.1) performed by Rashard Hanley MD at [facility] MAIN OR ??? PRO SPINAL FUSION, ANT, EA ADNL LEVEL Bilateral 11/30/2020 ANT. FUSION, INCLUDE. MIN. DISCECTOMY; EA. ADD'L LVL (WRVU 5.52) performed by Rashard Hanley MD at [facility] MAIN OR Social History: Home set up: lives in 2nd level apartment with 4 steps + a FOS to enter. PLOF: Fully independent with I/ADLs. DME: none Falls: no falls reported Precautions/Special Considerations: spine precautions - no bending, lifting, twisting; AAT; c-collarat all times, OLGA drain Subjective: I don't even know how I'm going to be able to shower with this (c- collar) on. Objective: Seen today for OT evaluation. Pain: 0/10 Vitals: VSS Cognitive Status/Behavior: ?? Behavior / Mood: alert and cooperative ?? Alert and oriented to: person, place, time and situation ?? Follows commands: multi step, 100% of the time and requires increased time ?? Attention: difficulty attending to task/directions; c/o feeling disorganized ?? Safety awareness: decreased insight into deficits; 1 cue needed for compliance with spine precautions Vision & Perception: WNL/WFL Communication/Hearing: WFL Musculoskeletal: Hand dominance: right Strength/AROM: impaired proximal AROM B UE; Strength WFL within available ROM. AROM and strength WFLB elbow to digits. BLE's WFL. Coordination: intact Sensation: impaired in LUE > RUE; pt reports improvement in RUE since surgery. Activities of Daily Living: Self-feeding: NA; anticipate independence Grooming: brushed hair independently Dressing: donned t-shirt with min A to bring overhead d/t decreased AROM in shoulders. Educated pt alternative clothing options to increase her in independence; ie button up shirts, larger shirts, and shirts with wide or V neck collars. Donned pants, underpants, and socks independently. Bathing: NA; educated pt on showering with c-collar and changing collar pads after shower to maintain compliance with precautions. Toileting: independent with toilet transfer, bladder hygiene, and clothing management. Functional Mobility: Supine to sit: mod I using bed controls and log roll technique Sit to stand: independent Ambulation: supervision to/from bathroom, ~ 7-10 ft. 1 cue needed for compliance with spine precautions while attempting to bend and reach across bed to retrieve phone. Pt reports ambulating on the unit with supervision of nursing staff using FWW. Stand to sit: independent Sit to supine: NA Balance: Static sitting: good Dynamic sitting: good Static standing balance: good Dynamic standing balance: good Education: Patient has been educated on Role of occupational therapy/rehabilitation, Transfers, ADL,Positioning, Safety, Functional Mobility, Activity pacing/Energy conservation, Balance, Recommendations and Discharge planning and pt verbalized understanding. Patient status, treatment, and mobility recommendations discussed with nursing. Assessment: Pt has been seen for occupational therapy evaluation. Joseline Rose presents with the following performance skill deficits and client factors: decreased flexibility/ROM, decreased strength, sensory deficits, precautions/bracing and compromised mobility status. These performance deficits have led to activity limitations and participation restrictions in the following areas of occupation: dressing, bathing, home management and driving. However, despite the deficits listed above pt demonstrates the ability to perform basic ADL tasks without assist and ambulate in room with supervisionwithout using an AD. Pt has decreased AROM in her B shoulders which negatively impacted her ability to dress her UB independently. Pt was receptive to education on recommendations for alternative clothing options that could increase her independence with UB dressing. Anticipate that pt will return home with assistance once medically ready. Do not anticipate further OT needs while hospitalized. Equipment needs at discharge: shower chair, FWW Anticipated Discharge Disposition (OT): home with home health Staff Recommendations: ??? Bathroom for toileting ??? Reorient pt multiple times a day as needed ??? Ambulate 3x/day ??? Assist pt OOB to chair for meals ??? Promote wellbeing through engagement in leisure and relaxation activities ??? Encourage good sleep hygiene with appropriate sleep/wake cycles ??? Utilize upright chair position using bed features or transfer to recliner chair as appropriate ??? Encourage participation in ADL's and provide physical assist only as needed Other Recommendations: No other consults recommended at this time Plan: OT: Therapy Frequency (OT): evaluation only Total Minutes, Occupational Therapy: (Evaluation ) 2016 OT Evaluation Code Rationale: ?? Diagnosis & Pertinent Co-Morbidities affecting Plan of Care: see PMHx ?? Occupational Profile & Client History: Brief Expanded Extensive x ?? Assessment of Occupational Performance: 1-3 performance deficits 3-5 performance deficits x 5 + performance deficits ?? Clinical Decision Making: Low Moderate High x Clinical decision making of low complexity using standardized patient assessment instrument and measurable assessment of functional outcome. Pager: [phone] Carrie Mercado OTR/L Occupational Therapy Rehabilitation Department Cindy Madrigal PT - 12/01/2020 10:23 AM EST Physical Therapy Evaluation Patient profile: Joseline Adán Hope??is a 55 y.o.??female??1 Day Post-Op??C6 corpectomy and C5-7 ACDF. Patient with the following active problems: Past Medical History: Diagnosis Date ??? Allergy [...] r/t neck, has vertigo treated with meclizine Active Non-Hospital Problems Diagnosis ??? COPD (chronic obstructive pulmonary disease) ??? Bipolar II disorder ??? Vitamin D deficiency ??? Essential hypertension ??? Hyperlipidemia ??? Uncontrolled type 2 diabetes mellitus with hyperglycemia ??? Asthma ??? Hypothyroid ??? Depression ??? Sleep apnea ??? Mild cognitive impairment, so stated ??? Dermatofibroma ??? GERD (gastroesophageal reflux disease) ??? Chronic UTI ??? Chronic migraine without aura ??? Scalp psoriasis ??? Acne vulgaris ??? Seasonal allergies ??? Combined forms of age-related cataract of both eyes ??? Myopia of both eyes with astigmatism and presbyopia ??? Bilateral dry eyes ??? Hemangioma - left shoulder ??? Atypical nevus of back ??? Cervical radicular pain ??? Bilateral shoulder pain ??? Carpal tunnel syndrome on both sides ??? Colon polyp ??? Schizoaffective disorder ??? Fibromyalgia Past Surgical History: Procedure Laterality Date ??? CARPAL TUNNEL RELEASE Left ??? SECTION x2 ??? HYSTERECTOMY ??? ORTHOPEDIC SURGERY left shoulder ??? ORTHOPEDIC SURGERY left elbow ??? PRO ANTERIOR INSTRUMENTATION 2-3 VERTEBRAL SEGMENTS Bilateral 11/30/2020 ANT. SPINAL INSTRUMENTATION, 2-3 VERTEBRA, SEGMENTED (WRVU 11.94) performed by [facility]ard [facility]ley MDat [facility] MAIN OR ??? PRO APPLY/REMOVE CRANIAL FIX DEV Bilateral 11/30/2020 PLACEMENT-CRANIAL TONGS (INCLUDING REMOVAL) (WRVU 4) performed by Rashard Hanley MD at [facility] SARAH ??? PRO CERV SPINE FUSN, ANTER, BELOW C2 Bilateral 11/30/2020 ANT. CX. FUSION INCLUD. MIN. DISCECTOMY; BELOW C2 (WRVU 17.69) performed by Rashard Hanley MD [facility] MAIN OR ??? PRO INSERT BIOMCHN DEV VRT CORPECTOMY DEFECT W/ARTHRD Bilateral 11/30/2020 INSERTION INTERVERTEBRAL BIOMECH DEV TO VERTEBRAL CORPECTOMY DEFECT, EA CONTIGUOUS DEFECT (WRVU 5.5) performed by Rashard Hanley MD at [facility] MAIN OR ??? PRO LAP, CHOLECYSTECTOMY N/A 07/27/2015 LAPAROSCOPIC CHOLECYSTECTOMY performed by Fabricio Grant MD at [facility] MAIN OR ??? PRO REMV VERT BODY, CERV, ONE SGMT Bilateral 11/30/2020 @ANTERIOR CX CORPECTOMY, ONE LVL (WRVU 26.1) performed by Rashard Hanley MD at [facility] MAIN OR ??? PRO SPINAL FUSION, ANT, EA ADNL LEVEL Bilateral 11/30/2020 ANT. FUSION, INCLUDE. MIN. DISCECTOMY; EA. ADD'L LVL (WRVU 5.52) performed by Rashard Hanley MD at [facility] MAIN OR Social History: Home set-up: Pt lives alone in a 2nd floor apartment. Stairs: 6 + 15 YAN with L rail Baseline Mobility: Pt was fully independent with ADLs, IADLs, and mobility [employer]. She volunteers with the [employer]. She ambulates without a device. Equipment at home: none Fall history: reports hx of 2 falls, most recent was last year Precautions/Special Considerations: at risk to fall, Spine precautions- No bending, lifting >10#,twisting. C-Collar at all times Lines: OLGA drain, junioro, PIV Diet: carb control Mobility and Positioning Recommendations: ?? Pt. to utilize FWW and 1 assist for ambulation and transfers with nursing. ?? Please encourage up to chair for meal times as able. ?? Pt encouraged to ambulate frequently with staff, getting into the bathroom for toileting and walking out in the wang >/= 3 times daily as able. Subjective: ???I have lots of friends, I think someone will be by daily to help me with whatever I need?? Objective: Pt seen for evaluation today. Pain: C/o 8/10 pain at rest, was premedicated just before PT arrival Vital Signs: VSS throughout on RA Mental Status: alert, oriented to person, place, and time Vision: corrective lenses for reading Skin: C-Collar donned, OLGA drain site intact Musculoskeletal: ROM: WFL with exception of C-spine Strength: WFL Sensation: endorses numbness in L hand and R finger tips. R hand sensation she reports has improved post-op, and L has worsened. Denies N/T in LEs Bed Mobility: Supine to Sit: supervision with VCs for log roll technique, HOB flat Sit to Supine: supervision with VCs for log roll technique, HOB flat Transfers: Sit to Stand: supervision with FWW Stand to Sit: supervision Gait: Distance: 300' Device used: FWW Level of assist: supervision Gait mechanics: Demo's slow but steady gait with short step length bilaterally, reciprocal pattern. Educated on visual scanning 2/2 c-spine precautions. Upright posture, minimal reliance on FWW Stairs: ascends/descends full FOS with BUE support on L rail and side-stepping pattern. CGA for safety, step-to pattern. When descending, pt uses foot to feel for edge of stair I/s/o limited vision with C-collar donned. Balance: Sitting Static: good Sitting Dynamic: good Standing Static: good with FWW Standing Dynamic / Gait: fair+ with FWW Education: patient has been educated on Bed mobility, Transfers, Assistive device/technique, Stairs,Safety , Precautions/protocol, Gait , Role of therapy, Balance and Discharge planning and verbalizesunderstanding. Patient status, treatment, and mobility recommendations discussed with nursing. Assessment: Joseline Rose was seen today for physical therapy evaluation. Pt s/p C6 corpectomy with C5-7 ACDF, now post-op day 1. She endorses ongoing numbness in B hands, but does report some improvement in R hand. Upon evaluation, patient presents with decreased ROM, impaired sensation, impaired balance, impaired activity tolerance, pain and impaired gait mechanics, resulting in functional limitation. She demonstrated safe bed mobility utilizing log roll technique, gait with FWW, and stair negotiation with BUE support. Pt endorses having some social supports in the community that will be able to assist with IADL needs upon d/c, and is agreeable to follow up with home PT services. Pt currently safe for home d/c from a functional mobility perspective, and has no further skilled inpatient PT needs at this time. Discharge Recommendations: Based on the current findings, Anticipated Discharge Disposition (PT): home with home health, home with assist when medically ready for hospital discharge. Discharge recommendation is based on the patient's current physical impairments, prior functional status, potential to return to prior level of function, patient motivation, reported home support, potential for functional gains, current level of endurance, reported home environment and anticipated trajectory of progress and may change based on patient progress during this hospitalization. Consult Recommendations: No other consults recommended at this time. Equipment needs: Rolling walker Plan: Therapy Frequency (PT): evaluation only. Patient/family understand and agree with plan as stated above. 2017 PT Evaluation Code Rationale: ?? Diagnosis & Pertinent Co-Morbidities, personal factors, and present illness affecting Plan ofCare: (see above); Additional personal factors or co- morbidities that impact plan: ?? Total # of Factors: 0 1-2 3+ X ?? Examination of body system impairments, functional limitations and behaviors, and/or participation restrictions. Addressing 1-2 elements Addressing 3 + elements X Addressing 4 + elements ?? Clinical presentation: See assessment above. Stable/Uncomplicated Evolving/Fluctuating Symptoms Unstable/Unpredictable X ?? Clinical decision making of low complexity based on pt's functional performance as outlined in this evaluation. Time IN / OUT: 5470-8853 Total Minutes, Physical Therapy: 20(low complexity eval ) Cindy Madrigal, PT Pager: [phone] Physical Therapy Inpatient Rehabilitation Department Ilir Coughlin MD - 12/01/2020 8:13 AM EST ORTHOPAEDIC SURGERY INPATIENT PROGRESS NOTE Patient Name: Joseline Rose Age: 55 y.o. Surgery/Issue: C6 corpectomy, C5-7 ACDF Attending: Dr. Hanley Date of surgery: 11/30/2020 SUBJECTIVE / INTERVAL HISTORY: Patient denies chest pain, shortness of breath, dizziness, headache, nausea, vomiting, hoarseness, difficulty swallowing. Pain well-controlled. Drain with 50cc since the OR. Complaints of carb controlled diet as artificial sweeteners give her migraines. Wolfe removed this morning. Pre-op Symptoms: Progressive balance issues and decreased sensation in her ring and middle fingers bilaterally Pre-op symptoms currently present: Some decreased sensation in her ring and middle fingers bilaterally, somewhat improved. FOCUSED REVIEW OF SYSTEMS: as above. Active Hospital Problems Diagnosis ??? S/P C6 corpectomy, C5-7 ACCF 11/30/20 Dr. Hanley ??? DDD (degenerative disc disease), cervical ??? Cervical spondylosis with myelopathy Resolved Hospital Problems No resolved problems to display. Active Non-Hospital Problems Diagnosis ??? COPD (chronic obstructive pulmonary disease) ??? Bipolar II disorder ??? Vitamin D deficiency ??? Essential hypertension ??? Hyperlipidemia ??? Uncontrolled type 2 diabetes mellitus with hyperglycemia ??? Asthma ??? Hypothyroid ??? Depression ??? Sleep apnea ??? Mild cognitive impairment, so stated ??? Dermatofibroma ??? GERD (gastroesophageal reflux disease) ??? Chronic UTI ??? Chronic migraine without aura ??? Scalp psoriasis ??? Acne vulgaris ??? Seasonal allergies ??? Combined forms of age-related cataract of both eyes ??? Myopia of both eyes with astigmatism and presbyopia ??? Bilateral dry eyes ??? Hemangioma - left shoulder ??? Atypical nevus of back ??? Cervical radicular pain ??? Bilateral shoulder pain ??? Carpal tunnel syndrome on both sides ??? Colon polyp ??? Schizoaffective disorder ??? Fibromyalgia MEDICATIONS: ??? POCT Fingerstick Glucose AND insulin lispro (HumaLOG) (100 unit/mL) subcutaneous injection vial 1-6 Units ??? glipiZIDE (Glucotrol) tablet 10 mg ??? insulin lispro (HumaLOG) (100 unit/mL) subcutaneous injection vial 0-8 Units ??? bacitracin ointment ??? gelatin adsorbable 100 (GELFOAM) sponge ??? thrombin (Bovine) (THROMBINAR) kit ??? albuteroL 90 mcg/actuation inhaler 2 puff ??? ALPRAZolam (Xanax) tablet 1 mg ??? amLODIPine (Norvasc) tablet 10 mg ??? ARIPiprazole (Abilify) tablet 30 mg ??? atorvastatin (Lipitor) tablet 20 mg ??? DULoxetine DR (Cymbalta) capsule 60 mg ??? hydroCHLOROthiazide (Hydrodiuril) tablet 50 mg ??? ipratropium-albuteroL (DUONEB) 0.5 mg-3 mg(2.5 mg base)/3 mL nebulizer solution 3 mL ??? levothyroxine (Synthroid) tablet 325 mcg ??? methocarbamoL (Robaxin) tablet 750 mg ??? glucose (GLUTOSE) 40% oral geL OR dextrose 10% infusion OR glucagon (Glucagen) (1 mg/mL)injection solution 1 mg ??? sodium chloride 0.9 % (flush) flush 5 mL ??? sodium chloride 0.9 % (flush) flush 5-20 mL ??? lidocaine (Xylocaine) 1% (10 mg/mL) injection 3 mg ??? lactulose (Chronulac) (0.67 gram/mL) oral liquid 10 g ??? bisacodyl EC (Dulcolax) tablet 10 mg ??? bisacodyL (Dulcolax) suppository 10 mg ??? polyethylene glycoL (Miralax) packet 17 g ??? senna-docusate (Pericolace) 8.6-50 mg per tablet 2 tablet ??? ondansetron (pf) (Zofran) (2 mg/mL) injection 4 mg ??? sodium chloride 0.9% infusion ??? ceFAZolin (Ancef) 1 g in dextrose 5% 50 mL infusion ??? oxyCODONE (Roxicodone) tablet 5 mg OR oxyCODONE (Roxicodone) tablet 10 mg OR oxyCODONE (Roxicodone) tablet 15 mg ??? acetaminophen (Tylenol) tablet 1,000 mg ??? sodium chloride 0.9% 1,000 mL (12/01/20 0350) OBJECTIVE: Temp: [36.5 ??C (97.7 ??F)-36.8 ??C (98.2 ??F)] Heart Rate: [67-101] Resp: [10-18] BP: (124-166)/(75-100) Intake/Output Summary (Last 24 hours) at 12/01/2020 0814 Last data filed at 12/01/2020 0727 Gross per 24 hour Intake 2400 ml Output 3025 ml Net -625 ml Body mass index is 33.28 kg/m??. Drain output: 50cc since OR Exam: General: NAD, awake/alert, responds to questions Neck: No evidence of hematoma, dressing c/d/i CV: RRR Resp: Breathing comfortably, lungs CTAB Motor: Segment Muscle Action R L C5 Deltoid Shoulder Abd 5 5 C5 Biceps Elbow flexion 5 5 C6 ECRL, ECRB Wrist extension 5 5 C7 Triceps Elbow extension 5 5 C8 Hand Grasp 5 5 T1 Hand intrinsics Finger abd/adduction 5 5 Sensory: Sensation (light touch) (0=absent, 1=impaired, 2=normal) Segment location Right Left C4 top of AC joint 2 2 C5 lat side antecub fossa 2 2 C6 dorsal thumb 2 2 C7 dorsal middle finger 1 1 C8 dorsal small finger 2 2 T1 med side antecub fossa 2 2 * decreased sensation in ring and middle fingers bilaterally. Lab Results Component Value Date NA 136 12/01/2020 K 4.3 12/01/2020 CL 102 12/01/2020 CO2 25 12/01/2020 BUN 8 12/01/2020 CREATININE 0.63 (L) 12/01/2020 GLUCOSE 251 (H) 12/01/2020 CALCIUM 9.1 12/01/2020 Lab Results Component Value Date WBC 17.2 (H) 12/01/2020 HGB 13.4 12/01/2020 HCT 39.5 12/01/2020 MCV 91.0 12/01/2020 PLATELET 252 12/01/2020 IMAGING: XR C spine- S/p C6 corpectomy and C5-7 ACDF ASSESSMENT / PLAN: Joseline Rose is a 55 y.o. female 1 Day Post-Op C6 corpectomy and C5-7 ACDF doing well post op. Pain well controlled, wolfe out this morning, drain with 50cc output. Plan to work with PT/OT today. If pain well controlled and clears PT can remove drain prior to DC. Will also work on glycemic control. Activity: as tolerated no BTL>10lbs, c collar at all times Closure: Resorbable sutures Dressing: gauze, tegaderm Drain: 1 OLGA 3 holes out<30cc shift Anticoagulation: mechanical Antibiotics: ancef Consults: PT/OT Dispo:per PT Follow-up: as scheduled Ilir Coughlin MD 12/01/2020 Future Appointments Date Time Provider Department Center 12/04/2020 3:00 PM Eddi Hernandez DPM Pod [facility] [place]/19/2020 10:30 AM [facility] DX ROOM 1 MH Xray [facility] Rad 12/19/2020 11:20 AM [address] Hanley MD [facility] [place] [facility] 01/30/2021 3:40 PM Tom Hay MD [facility] Associated attestation - Rashard Hanley MD - 12/02/2020 7:15 AM EST Patient doing well. No sig swallowing issues. No sig change in neuro exam. Xrays 11/30/2020 look good. Rashard Hanley MD [facility] Passenger Train - Orthopedic Spine Surgery Journalist - Department of Orthopedic Surgery / [employer] Music Adapter - [facility] [employer] Edith Irizarry MD - 11/30/2020 7:05 PM EST ORTHOPAEDIC SURGERY INPATIENT POST OP NOTE Patient Name: Joseline Rose Age: 55 y.o. Surgery/Issue: C6 corpectomy, C5-7 ACCF 11/30/20. Attending: Dr. Hanley Date of surgery: 11/30/2020 SUBJECTIVE / INTERVAL HISTORY: Patient denies chest pain, shortness of breath, headache, nausea, vomiting, hoarseness, difficulty swallowing, weakness. Pain well-controlled. Feeling a little lightheaded, continues to have numbness and tingling in her fingers that has worsened since before the operation but no change in strength. Pre-op Symptoms: Progressive balance issues trouble with her hands, bilateral hands are numb except for thumbs Pre-op symptoms currently present: Continues to have numbness in her hands FOCUSED REVIEW OF SYSTEMS: as above. Active Hospital Problems Diagnosis ??? S/P C6 corpectomy, C5-7 ACCF 11/30/20 Dr. Hanley ??? DDD (degenerative disc disease), cervical ??? Cervical spondylosis with myelopathy Resolved Hospital Problems No resolved problems to display. Active Non-Hospital Problems Diagnosis ??? COPD (chronic obstructive pulmonary disease) ??? Bipolar II disorder ??? Vitamin D deficiency ??? Essential hypertension ??? Hyperlipidemia ??? Uncontrolled type 2 diabetes mellitus with hyperglycemia ??? Asthma ??? Hypothyroid ??? Depression ??? Sleep apnea ??? Mild cognitive impairment, so stated ??? Dermatofibroma ??? GERD (gastroesophageal reflux disease) ??? Chronic UTI ??? Chronic migraine without aura ??? Scalp psoriasis ??? Acne vulgaris ??? Seasonal allergies ??? Combined forms of age-related cataract of both eyes ??? Myopia of both eyes with astigmatism and presbyopia ??? Bilateral dry eyes ??? Hemangioma - left shoulder ??? Atypical nevus of back ??? Cervical radicular pain ??? Bilateral shoulder pain ??? Carpal tunnel syndrome on both sides ??? Colon polyp ??? Schizoaffective disorder ??? Fibromyalgia MEDICATIONS: ??? bacitracin ointment ??? gelatin adsorbable 100 (GELFOAM) sponge ??? thrombin (Bovine) (THROMBINAR) kit ??? albuteroL 90 mcg/actuation inhaler 2 puff ??? ALPRAZolam (Xanax) tablet 1 mg ??? [START ON 12/01/2020] amLODIPine (Norvasc) tablet 10 mg ??? [START ON 12/01/2020] ARIPiprazole (Abilify) tablet 30 mg ??? atorvastatin (Lipitor) tablet 20 mg ??? [START ON 12/01/2020] DULoxetine DR (Cymbalta) capsule 60 mg ??? [START ON 12/01/2020] hydroCHLOROthiazide (Hydrodiuril) tablet 50 mg ??? ipratropium-albuteroL (DUONEB) 0.5 mg-3 mg(2.5 mg base)/3 mL nebulizer solution 3 mL ??? [START ON 12/01/2020] levothyroxine (Synthroid) tablet 325 mcg ??? methocarbamoL (Robaxin) tablet 750 mg ??? glucose (GLUTOSE) 40% oral geL OR dextrose 10% infusion OR glucagon (Glucagen) (1 mg/mL)injection solution 1 mg ??? POCT Fingerstick Glucose AND insulin lispro (HumaLOG) (100 unit/mL) subcutaneous injection vial 1-4 Units ??? sodium chloride 0.9 % (flush) flush 5 mL ??? sodium chloride 0.9 % (flush) flush 5-20 mL ??? lidocaine (Xylocaine) 1% (10 mg/mL) injection 3 mg ??? lactulose (Chronulac) (0.67 gram/mL) oral liquid 10 g ??? bisacodyl EC (Dulcolax) tablet 10 mg ??? bisacodyL (Dulcolax) suppository 10 mg ??? polyethylene glycoL (Miralax) packet 17 g ??? senna-docusate (Pericolace) 8.6-50 mg per tablet 2 tablet ??? ondansetron (pf) (Zofran) (2 mg/mL) injection 4 mg ??? sodium chloride 0.9% infusion ??? ceFAZolin (Ancef) 1 g in dextrose 5% 50 mL infusion ??? oxyCODONE (Roxicodone) tablet 5 mg OR oxyCODONE (Roxicodone) tablet 10 mg OR oxyCODONE (Roxicodone) tablet 15 mg ??? acetaminophen (Tylenol) tablet 1,000 mg ??? sodium chloride 0.9% 1,000 mL (11/30/20 1659) OBJECTIVE: Temp: [36.6 ??C (97.9 ??F)-36.8 ??C (98.2 ??F)] Heart Rate: [67-101] Resp: [10-18] BP: (125-166)/(75-100) Intake/Output Summary (Last 24 hours) at 11/30/20202157 Last data filed at 11/30/2020 1800 Gross per 24 hour Intake 2400 ml Output 750 ml Net 1650 ml Body mass index is 33.28 kg/m??. Drain output: 25cc SS drainage Exam: General: NAD, awake/alert, responds to questions Neck: No evidence of hematoma, dressing c/d/i, wearing Ccollar CV: RRR Resp: Breathing comfortably, lungs CTAB Motor: Segment Muscle Action R L C8 Hand Grasp 5 5 T1 Hand intrinsics Finger abd/adduction 5 5 Sensory: Sensation (light touch) (0=absent, 1=impaired, 2=normal) Segment location Right Left C4 top of AC joint 2 2 C5 lat side antecub fossa 2 2 C6 dorsal thumb 2 2 C7 dorsal middle finger 1 1 C8 dorsal small finger 1 1 T1 med side antecub fossa 2 2 Lab Results Component Value Date NA 135 11/22/2020 K 3.9 11/22/2020 CL 99 11/22/2020 CO2 27 11/22/2020 BUN 11 11/22/2020 CREATININE 0.68 (L) 11/22/2020 GLUCOSE 299 (H) 11/22/2020 CALCIUM 9.4 11/22/2020 Lab Results Component Value Date WBC 11.9 (H) 11/22/2020 HGB 14.4 11/22/2020 HCT 43.1 11/22/2020 MCV 91.7 11/22/2020 PLATELET 336 11/22/2020 IMAGING: XR Cspine: 1. Status post ACDF at C5-C7. 2. Increased anterolisthesis of C3 on C4 and C4 on C5 compared to prior CT and radiographs. ASSESSMENT / PLAN: Joseline Rose is a 55 y.o. female Day of Surgery S/P C6 corpectomy, C5-7 ACCF 11/30/20. Please continue to monitor her neuro symptoms. PMH: DMII, depression, hypothyroid, HTN, COPD, SEB, GERD, bipolar, migraines, psoriasis Activity: as tolerated no BTL>10lbs, c collar at all times Closure: Resorbable sutures Dressing: gauze, tegaderm Drain: 1 OLGA 3 holes out<30cc shift Anticoagulation: mechanical Antibiotics: ancef Consults: PT/OT Dispo:per PT Follow-up: as scheduled Edith Irizarry MD 11/30/2020 Future Appointments Date Time Provider Department Center 12/04/2020 3:00 PM Eddi Hernandez DPM [place] [facility] 12[facility]19/2020 10:30 AM [facility] DX ROOM 1 Xray [facility] Rad 12/19/2020 11:20 AM [address] [facility] [place] [facility] 01/30/2021 3:[address] [facility] Ida Rubio - 11/30/2020 11:29 AM EST Integration Architect Encounter Note Patient Name: Joseline Rose : [id number] MR#: [id number] Admit Date: 11/30/2020 9:20 AM Hospital Day 0 days Narrative: Consult request from nurse as patient undergoing surgery. Assessment: Visited with patient who is feeling a great deal of anxiety pre-surgery. She has expressed that she has had two surgeries in the past that did not go well. The patient felt very scared and would like to repent. We discussed that the ceramic capacitor processor would be in at 4:30pm to visit with her after surgery. We did read the My Lord God prayer Ernie Bernal. We also practiced deep belly breathing and to try not to feel fearful due to past experiences or future outcomes, the patient closed her eyes to live in thismoment. She appeared greatly relaxed. Before I left we said the Lords Prayer Together. Intervention and Outcome: Suggest to Fr. Geronimo that a visit from him with this patient would be helpful. Follow-up: Follow up with Gnosticism repentence and spiritual support. Time in Direct Care: 20 min. Ida Rubio 11/30/2020 documented in this encounter H&P Notes Stan Lopez MD - 11/30/2020 10:46 AM EST The patient's history and physical exam have been reviewed and completed. There has been no intervalchange from that of the pre-operative history and physical exam done within the last 30 days. RRR No wheezing Exam: Decreased sensation middle, ring fingers bilaterally. 5/5 motor strength BUE. Associated attestation - Rashard Hanley MD - 11/30/2020 11:05 AM EST Patient seen personally. Risk benefits of surgical intervention were discussed. Consents reviewed and signed. Talked about significant swallowing difficulty nonunion's rotation problems persistent symptoms. All questions were answered. Rashard Hanley MD [facility] Passenger Train - Orthopedic Spine Surgery Journalist - Department of Orthopedic Surgery / [employer] Music Adapter - [facility] 11/30/2020 documented in this encounter Procedure Notes Aaron Figueredo MD - 11/30/2020 5:37 PM EST [facility]ST[facility] INTRAOPERATIVE NEUROMONITORING REPORT Patient Name: Joseline Rose Age: 55 y.o. : 1965 Date of Surgery: 11/30/2020 Surgeon(s): Rashard Hanley MD Surgical Procedure: Corpectomy, Interbody fusion C6 Clinical History: Joseline Rose is a 55 y.o. with cervical myeloradiculopathy, stenosis and spondylosis with bilateral hand numbness. She is here for C6 corpectomy and C5-7 ACDF. Anesthesia: Propofol/opioid (TIVA), with no muscle relaxant after intubation IONM Team: Aaron Figueredo MD and LELIA Rucker Monitoring Procedure(s): Intraoperative free-running EMG of the bilateral C5-T1, L5-S1, and CN X (vocal cords, vagus nerve) innervated muscles of the upper and lower extremities, somatosensory cortical/subcortical tract monitoring using bilateral medial, ulnar and posterior tibial nerve somatosensory evoked potentials (SSEPs), cortical spinal tract monitoring using transcranial motor evoked potentials recorded in bilateral upper and lower extremities (tcMEPs), EEG monitoring for depth of anesthesia and train of four neuromuscular junction monitoring Total IOM time: Intraoperative neurophysiologic monitoring was performed for a total duration of 02:58 (hour:min). During this time period, the IOM attending was present in the operating room for a total of 60 minutes (remote monitoring 118 minutes). CPT Codes: Continuous IONM one-to-one (93825, 4 units), Continuous IONM (01135, 2 units), Neuromuscular Junction Test (TO4) (94826), EEG (non-intracranial surgery) (47390), tcMEPs Upper and lower extremities (59940), SSEPs UE&LE (76143), Needle EMG two extremities (35475) and Needle EMG cranial nerve(s), bilateral (04821) (CNX-RLN), EMG limited extremities (LE, 2 units, 57365) Summary Report: Following anesthesia and prior to positioning, surface needle electrode pairs were placed bilaterally in the deltoid (C5, C6), biceps (C5, C6), triceps (C6-C8), ABP (C8, T1), ADM (C8, T1), BR (C6) and vocal cords/larynx (CN X). Electrodes were also placed in AH (S1) and TA (L5). Surface needle electrodes were also placed at appropriate locations on the scalp to record cortical SSEPs from stimulation leads placed bilaterally over the posterior tibial, median and ulnar nerves and provide stimulation for tcMEPs. Counts were kept of all needles and other items attached to the patient for monitoring, and all were accounted for and disposed of at the conclusion of the surgery. At baseline and prior to incision, reproducible cortical SSEPs and tcMEPs were obtained from the bilateral upper and lower extremities. Baseline peripheral motor conduction testing (train of four) indicated adequate peripheral conduction and validated subsequent EMG-based monitoring. Free-run EMG was quiet at baseline. The EEG was symmetric throughout for the type of anesthesia used. Shortly after placement of retractors and beginning of decompression, L MED SSEPs firsts shifted in latency by greater than 10% and then decreased in amplitude by greater than 50% both cortically and subcortically. They did not recover prior to closing. There was a brief decrease of R MED SSEP in amplitude slightly less than 50%, but was not prolonged and was stable to BL at closing. EMG responses were monitored as free running sweeps. Abnormal patterns of EMG were not detected at the time of observation of opening baseline. There were no periods of deviations from baseline EMG activity during the procedure. At the time of closing, EMG activity was similar to that observed at the time of recording of opening baselines. The surgeon and supervising physician were informed of and acknowledged EMG opening baselines, EMG observations throughout the procedure and the status of EMGs atclosing. Throughout the procedure the tcMEP responses were stable or changed acceptably and those observed atthe time of closing were consistent with those observed at the time of recording of opening baselines. The surgeon and supervising physician were informed of and acknowledged TCeMEP opening baselines, TCeMEP observations throughout the procedure and the status of TCeMEPs at closing. Final responses were obtained at closing: TcMEPs were stable when compared to baseline in upper and lower extremities. EEG was symmetric and stable when compared to baseline EEG and EMG was quiet. Shortly after placement of retractors and beginning of decompression, left median SSEPs shifted in latency by greater than 10% and then decreased in amplitude by greater than 50% both cortically and subcortically. They did not recover prior to closing. Left ulnar SSEPs were stable. There was a brief de crease of right median SSEP in amplitude slightly less than 50%, but was not prolonged and was stable to baseline at closing. Tape was released from the patient's left shoulder prior to final traces, however, left median SSEPs did not improve. Impression: All tcMEP and SSEP waveforms were stable compared to baseline with exception of left median SSEPs which shifted in latency by greater than 10% and decreased in amplitude by greater than 50% both cortically and subcortically. During this time, left ulnar SSEPs and all motor evoked responses in the leftarm and hand were stable. It is possible that this findings represents a lesion (e.g., compression, traction) which localizes peripherally anywhere along the median nerve to upper brachial plexus. It is less likely given the isolated nature of this neurophysiologic change that this is caused by a central nervous system process. Interventions during the surgery which included, change in arm positioning, checking electrode placement in the arm, and releasing positioning tape at the end of the surgery did not improve these findings. These findings were discussed with the surgeon on an ongoing basis. Aaron Figueredo MD [facility] Epilepsy Program Department of Neurology documented in this encounter Miscellaneous Notes Initial Assessments - Barbra Orosco RN - 12/01/2020 12:32 PM EST Office of Care Management Initial Assessment Barbra Orosco RN reviewed record and discussed patient with Care Team. Source of Information: patient interview Introduced self/reviewed role; services accepted. Reason for Hospitalization: 12/01/2020 POD #1 s/p C6 corpectomy and C5-7 ACDF (elective) Last COVID test date and time: COVID19 resulted @ 10:58 hours on 11/27/2020; not detected [place] Past Medical History: Diagnosis Date ??? Allergy [...] Hospitalizations Within the Past 30 Days: none mentionied Anticipated Length Of Stay (If known): patient expects to discharge either today or tomorrow; she ishyperglycemic. Current Decision-Making Capacity: able to make her own healthcare decisions Advance Care Planning: Code Status: Full Code No advance directive on file in eDH. If AD's have not been completed mother Janette Otero would be surrogate decision maker per [place] surrogate decision making law. (Only good for 90 days) Any patient [place] at [facility] must abide by [place] law. The hierarchy for surrogate decision making is: (a) Patient???s spouse, or civil union partner or common law spouse unless there is a divorce proceeding, separation agreement, or restraining order limiting that person???s relationship with the patient. (b) Any adult son or daughter of the patient. (c) Either parent of the patient. (d) Any adult brother or sister of the patient. (e) Any adult grandchild of the patient. (f) Any grandparent of the patient. (g) Any adult aunt, uncle, niece, or nephew of the patient. (h) A close friend of the patient. (i) The agent with financial power of package clerk or a conservator appointed in accordance with RSA 464-A. (j) The guardian of the patient???s estate. Current Coping/Education/Information Needs: clinical updates have been provided to the patient by her interdisciplinary care team and she has been given the opportunity to have her questions and concerns addressed. Patient states that she will be alone post-hospital discharge; feels that she will be able to self-manage her care. Her diabetes is not well-controlled and currently her blood glucose numbers are high.This may delay her discharge; pending 3 pm repeat. Current Functional Ability: alert, oriented, pleasant and cooperative with care. In C-collar; has JPdrain that will be discontinued prior to her discharge. Anticipate Spinal Precautions upon discharge. See above note. Functional Status Prior to Admission: patient states that her physical health is not good and thatshe is tired for most of her waking hours. Her pain (rated as 8/10) limits her activity. Lives alone, little social contact; reports her mental health as good Home Environment: patient lives in [place], [place] alone in single wide mobile home. The raisa in her home is being replaced and the patient has temporarily relocated to the [facility]. Social & Family Supports/Community Resources: has a friend, little social support. Not employed.Mother lives in [place] but they stay in touch. Has mental health outpatient services for Bipolar Disorder Behavioral Health History: history of depression and Bipolar Disorder Substance Use/Abuse: no mention of tobacco use No mention of alcohol use Uses medical marijuana Substance Use Screen In the past year have you used an illegal drug or used a prescription medication for non-medical reaons?: No In the past year have you used opioids (oxycodone, Vicodin, heroin, fentanyl, buprenorphine, methadone, etc.) for non-medical reasons?: No Alcohol Use Screen In the past year have you had 4 or more drinks a day containing alcohol?: No Other Pertinent/Service Specific Information: to be assessed Health/Prescription Coverage: Primary Insurance: MEDICARE Secondary Insurance: [place] [employer] [place] [employer] MEDICAID Prescription Coverage: yes Preferred Pharmacy: [place], [place] Other: Pharmacy, [place], [place] Primary Care Provider: Tom Hay MD [phone] Patient/Caregiver Goals of Treatment: to have improvement in her activities of daily living by improved pain control Potential Needs for Transition of Care: Rehab/SNF: not needed Home Health: agrees to VNA referral DME: will need FWW Dialysis: not established HD patient Community Resources: aware Transportation: private vehicle (friend David Thurman) Other: to be assessed Anticipated Barriers to Discharge/Special Considerations: patient lives alone; believes that she will be able to manage her care. Spinal precautions will limit her activities but she is agreeable to VNA. Assessment: Joseline Rose is a very pleasant, multi-morbid 55 yo female who is POD #1 s/p C6 Corpectomy and C5-7 ACDF. She lives alone; thinks that she will be able to self-manage her care. UnderstandsSpinal Precautions and safety implications. The patient has temporarily relocated to the [facility] area while her [place] home is underrepair. She is uncertain how long she will be in [facility] but [facility] has agreed to follow her. Otherwise, the patient has outpatient mental health counselor whom she sees on a regular basis. Currently, the patient's blood sugars are not well controlled (PMH poor DM control) Plan: Finalize d/c plan (VNA and DME following 3pm blood glucose lab VNA/DME choices routed/pended with [facility] Tech support. A member of the Care Management team will continue to monitor progress, follow for continuity of care and assist with transition of care planning. Barbra Orosco RN Pager: [phone] Plan of Care - Alden Clinton RN - 12/01/2020 3:07 AM EST OUTCOME EVALUATION NOTE: OUTCOME SUMMARY: [facility] PAC[facility]. Pain controlled with oxycodone prn and scheduled meds. Pt ambulated around unit with standby tolerated well. Dressing dry, intact, OLGA drain with moderate amount serosanguineous drainage. Pt had one episode of nausea, relieved by zofran. PLAN MOVING FORWARD: Pain control, mobilize encourage pt to eat slowly, soft foods INDIVIDUALIZED FALL PREVENTION INTERVENTIONS: Patient-specific fall risk factors per assessment: [current deficits]: impaired mobility Assistance [level of assistance required for transfers and ambulation]: SBA, FWW Supervision [direct monitoring required during toileting and ADLs]: eyes on Surveillance [continuous indirect monitoring]: purposeful roundingjunioro Patient-specific fall prevention interventions for sensory deficits provided, if applicable: [X] No CPG GOAL OUTCOME EVALUATION: Brief Op Note - Stan Lopez MD - 11/30/2020 4:08 PM EST Brief Operative Note Patient Name: Joseline Rose : [id number] MR#: [id number] Case Date: 11/30/2020 Surgeon: Surgeon(s) and Role: * Rashard Hanley MD - Primary * Stan Lopez MD - Resident * Ilir Coughlin MD - Resident Preoperative diagnosis: Cervical myeloradiculopathy progressive Postoperative diagnosis: Cervical myeloradiculopathy progressive Procedure: C6 corpectomy, C5-7 ACCF Anesthesia: General Findings: C6 corpectomy performed, cord well decompressed at conclusion Complications: none apparent Estimated Blood Loss: 25 mL Specimens removed during surgery: None Fluids: Intraprocedure Crystalloid Total Output Urine Output 200 mL Blood Loss 25 mL Total Output 225 mL PRBCs: none (See Anesthesia Record/Report for Other Blood Products) Urine Output: 200 mL Drains: 1 OLGA 3 holes Disposition: awakened from anesthesia, extubated and taken to the recovery room in a stable condition, having suffered no apparent untoward event. Condition: doing well without problems (Please see the Surgical Encounter Summary for any Implant and Specimen details pertinent to this patient.) Infection Bundle used? N/A Op Note - Rsahard Hanley MD - 11/30/2020 12:[address] [facility] [place] Patient Name: Joseline Rose : [id number] MR#: [id number] Case Date: 11/30/2020 Surgeon: Surgeon(s) and Role: * Rashard Hanley MD - Primary * Stan Lopez MD - Resident * Ilir Coughlin MD - Resident Preoperative diagnosis: Cervical myeloradiculopathy progressive Postoperative diagnosis: Cervical myeloradiculopathy progressive Procedure(s) (LRB): @ANTERIOR CX CORPECTOMY, ONE LVL (WRVU 26.1) (Bilateral) ANT. SPINAL INSTRUMENTATION, 2-3 VERTEBRA, SEGMENTED (WRVU 11.94) (Bilateral) PLACEMENT-CRANIAL TONGS (INCLUDING REMOVAL) (WRVU 4) (Bilateral) INSERTION INTERVERTEBRAL BIOMECH DEV TO VERTEBRAL CORPECTOMY DEFECT, EA CONTIGUOUS DEFECT (WRVU 5.5)(Bilateral) ANT. CX. FUSION INCLUD. MIN. DISCECTOMY; BELOW C2 (WRVU 17.69) (Bilateral) ANT. FUSION, INCLUDE. MIN. DISCECTOMY; EA. ADD'L LVL (WRVU 5.52) (Bilateral) MODIFIER GLOBUS PROVIDENCE (Bilateral) MODIFIER C5 (Bilateral) MODIFIER C6 (Bilateral) MODIFIER C7 (Bilateral) Anesthesia: General Estimated Blood Loss: 25 mL Specimens removed during surgery: None Drains: * No LDAs found * Surgical Closure: Primary Closure - skin incision is completely closed without any wires, kathya, drains or other devices Disposition: awakened from anesthesia, extubated and taken to the recovery room in a stable condition, having suffered no apparent untoward event. Condition: doing well without problems (Please see the Surgical Encounter Summary for any Implant and Specimen details pertinent to this patient.) HPI/Surgical Indications: Patient with cervical radiculopathy and myelopathy. Severe cervical spondylosis and central stenosis was foraminal stenosis C5-6 and C6-7. Risk-benefit surgical procedure werediscussed with her in detail. All questions were answered. Consents reviewed and signed. Procedure Description: PROCEDURE: 1. C6 corpectomy 2. Application of interbody cage C5-7 3. Anterior instrumentation C5-7 4. Anterior arthrodesis C5-7 5. Application of local autograft 6. Spinal cord monitoring 7. Application removal Khan-Wells tongs Instrumentation: Globus [place] cage Globus [place] plate DESCDRIPTION OF PROCEDURE: The patient was brought back to the operative theater. General endotracheal intubation was accomplished. The patient was placed supine. The patient was placed in the usual standard position, prepped and draped sterilely, time-out was performed and confirmed. Application removal of Khan-Wells tongs: Prior draping Khan-Wells tongs were placed in 15 pounds of traction were placed. An incision was made on the right side of the neck and taken down through the platysma. Blunt dissection provided adequate exposure. The level was identified with x-ray. The longus coli was raised from medial to lateral. Osteophytes were removed. Self-retaining retractors were placed in the anterior cervical spine. C6 corpectomy: The disk C5-6 and C6-7 was incised, osteophytes were removed above and below. Curettes were utilized to remove the disk and prepare the endplates. This was taken down to the posterior disc / osteophyte. This was then removed. The intervening body was removed back to the posterior wall. The posterior wall was removed. The posterior osteophytes of the inferior aspect of C5 and superior aspect of C7 were removed. The foramen were decompressed of C5-6 and C6-7. Once removed a 19 mm cage was placed in the corpectomy site from C5-C7 packed with local autograft. Application of interbody cage: As noted above. Anterior instrumentation C 5-7: An anterior plate was placed down on the anterior cervical spine. Variable angled screws were placed in C 5 and C 7, 12-mm in length. X-rays were taken however due to the patient's habitus with the superior aspect of the construct could be evaluated. Closure: A drain was placed deep. The platysma was reapproximated. The wound was closed in layers. Sterile dressing was applied. The patient was extubated to the PACU in good condition. Attestation: Case Date: 11/30/2020 I was present and I participated during the entire procedure (does not need to include opening and closing). Rashard Hanley MD 11/30/2020 documented in this encounter Plan of Treatment Upcoming Encounters Date Type Specialty Care Team Description 08/06/2022 Office Visit Plastic Surgery Peña Woodward MD [facility] [place], [place] [address] ([place]) 08/19/2022 Office Visit Podiatry Tom Titus DPM [place], [place] [address] ([place]) 09/08/2022 Office Visit Internal Medicine Janay Hay MD [facility] GENERAL INTERNAL MEDICINE [place], [place] [address] ([place] [address]) 10/12/2059 Hospital Encounter Surgery Jim Hanley MD [facility] [place], [place] [address] (Wo rk) Scheduled Procedures Name [...] Date/Time Associated Comments Diagnosis POCT GLUCOSE Routine 12/01/2020 3:03 Results for this PM EST procedure are i n the results section. POCT GLUCOSE Routine 12/01/2020 11:33 Results for this AM EST procedure are i n the results section. POCT GLUCOSE Routine 12/01/2020 7:26 Results for this AM EST procedure are i n the results section. HEMOGRAM Routine 12/01/2020 4:56 Results for this AM EST procedure are i n the results section. DIFFERENTIAL, AUTOMATED Routine 12/01/2020 4:56 R esults for this AM EST procedure are i n the results section. HC CBC,PLT & AUTO DIFF Routine 12/01/2020 4:56 AM EST BASIC METABOLIC PANEL Routine 12/01/2020 4:56 Res ults for this (NON-FASTING) AM EST procedure are in the results section. POCT GLUCOSE Routine 12/01/2020 3:41 Results for this AM EST procedure are i n the results section. POCT GLUCOSE Routine 12/01/2020 1:29 Results for this AM EST procedure are i n the results section. POCT GLUCOSE Routine 11/30/2020 11:32 Results for this PM EST procedure are i n the results section. XR CERVICAL SPINE 2 OR Routine 11/30/2020 7:47 Re sults for this 3 VIEWS PM EST procedure are i n the results section. POCT GLUCOSE Routine 11/30/2020 6:52 Results for this PM EST procedure are i n the results section. POCT GLUCOSE Routine 11/30/2020 4:35 Results for this PM EST procedure are i n the results section. XR CERVICAL SPINE 1 Routine 11/30/2020 3:36 Resul ts for this VIEW PM EST procedure are i n the results section. XR CERVICAL SPINE 1 Routine 11/30/2020 3:11 Resul ts for this VIEW PM EST procedure are i n the results section. BLOOD GAS 2 ARTERIAL Routine 11/30/2020 2:54 Resu lts for this PM EST procedure are i n the results section. XR CERVICAL SPINE 1 Routine 11/30/2020 1:45 Resul ts for this VIEW PM EST procedure are i n the results section. XR CERVICAL SPINE 1 Routine 11/30/2020 1:43 Resul ts for this VIEW PM EST procedure are i n the results section. XR CERVICAL SPINE 1 STAT 11/30/2020 12:46 Resu lts for this VIEW PM EST procedure are i n the results section. BLOOD GAS 2 ARTERIAL Routine 11/30/2020 12:34 Res ults for this PM EST procedure are i n the results section. MODIFIER C7 11/30/2020 11:40 Cervical AM EST spondylosis with myelopathy DDD (degenerative disc disease), cervical MODIFIER C6 11/30/2020 11:40 Cervical AM EST spondylosis with myelopathy DDD (degenerative disc disease), cervical MODIFIER C5 11/30/2020 11:40 Cervical AM EST spondylosis with myelopathy DDD (degenerative disc disease), cervical MODIFIER GLOBUS 11/30/2020 11:40 Cervical PROVIDENCE AM EST spondylosis with myelopathy DDD (degenerative disc disease), cervical ANT. FUSION, INCLUDE. 11/30/2020 11:40 Cervical MIN. DISCECTOMY; EA. AM EST spondylosis with ADD'L LVL (WRVU 5.52) myelopathy DDD (degenerative disc disease), cervical ANT. CX. FUSION INCLUD. 11/30/2020 11:40 Cervical MIN. DISCECTOMY; BELOW AM EST spondylosis with C2 (WRVU 17.69) myelopathy DDD (degenerative disc disease), cervical INSERTION 11/30/2020 11:40 Cervical INTERVERTEBRAL BIOMECH AM EST spondylosis with DEV TO VERTEBRAL myelopathy CORPECTOMY DEFECT, EA DDD (degenerative CONTIGUOUS DEFECT (WRVU disc disease), 5.5) cervical PLACEMENT-CRANIAL TONGS 11/30/2020 11:40 Cervical (INCLUDING REMOVAL) AM EST spondylosis with (WRVU 4) myelopathy DDD (degenerative disc disease), cervical ANT. SPINAL 11/30/2020 11:40 Cervical INSTRUMENTATION, 2-3 AM EST spondylosis with VERTEBRA, SEGMENTED myelopathy (WRVU 11.94) DDD (degenerative disc disease), cervical @ANTERIOR CX 11/30/2020 11:40 Cervical CORPECTOMY, ONE LVL AM EST spondylosis with (WRVU 26.1) myelopathy DDD (degenerative disc disease), cervical POCT GLUCOSE Routine 11/30/2020 10:57 Results for this AM EST procedure are i n the results section. INSERTION Routine 11/30/2020 9:52 Cervical INTERVERTEBRAL BIOMECH AM EST spondylosis with DEV TO VERTEBRAL myelopathy CORPECTOMY DEFECT DDD (degenerative disc disease), cervical ANTERIOR CX CORPECTOMY, Routine 11/30/2020 9:52 Cervical ONE LVL AM EST spondylosis with myelopathy DDD (degenerative disc disease), cervical ANT. SPINAL Routine 11/30/2020 9:52 Cervical INSTRUMENTATION, 2-3 AM EST spondylosis with VERTEBRA, SEGMENTED myelopathy DDD (degenerative disc disease), cervical ANT. FUSION, INCLUDE. Routine 11/30/2020 9:52 Cervical MIN. DISCECTOMY; EA. AM EST spondylosis with ADD'L LVL myelopathy DDD (degenerative disc disease), cervical ANT. CX. FUSION INCLUD. Routine 11/30/2020 9:52 Cervical MIN. DISCECTOMY; BELOW AM EST spondylosis with C2 myelopathy DDD (degenerative disc disease), cervical PLACEMENT-CRANIAL TONGS Routine 11/30/2020 9:52 Cervical (INCLUDING REMOVAL) AM EST spondylosis with myelopathy DDD (degenerative disc disease), cervical documented in this encounter Results POCT Glucose (12/01/2020 3:03 PM EST) athologist Signature POC Glucose 155 65 - 199 [place] mg/dL [facility] Comment: Supplemental ranges: <140 mg/dL before meals <180 mg/dL all other times of the day Specimen Anatomical Collection Method Collection Time Receive d Time (Source) Location / / Volume Laterality Blood specimen 12/01/2020 3:03 PM 021 3:03 (specimen) EST PM EST Rashard Hanley MD POINT OF CARE TEST ORDERABLE S Performing Organization Address City/State/[place] [address] POCT Glucose (12/01/2020 11:33 AM EST) athologist Signature POC Glucose 174 65 - 199 [facility] mg/dL [facility] Comment: Supplemental ranges: <140 mg/dL before meals <180 mg/dL all other times of the day Specimen Anatomical Collection Method Collection Time Receive d Time (Source) Location / / Volume Laterality Blood specimen 12/01/2020 11:33 1 (specimen) AM EST 11:33 AM EST Rashard Hanley MD POINT OF CARE TEST ORDERABLE S Performing Organization Address City/State/[place] [address] (ABNORMAL) POCT Glucose (12/01/2020 7:26 AM EST) athologist Signature POC Glucose 211 (H) 65 - 199 [place] mg/dL [facility] Comment: Supplemental ranges: <140 mg/dL before meals <180 mg/dL all other times of the day Specimen Anatomical Collection Method Collection Time Receive d Time (Source) Location / / Volume Laterality Blood specimen 12/01/2020 7:26 AM 021 7:26 (specimen) EST AM EST Rashard Hanley MD POINT OF CARE TEST ORDERABLE S Performing Organization Address City/State/[place] [address] (ABNORMAL) Differential, Automated (12/01/2020 4:56 AM EST) [facility] gist Method Time Signature Neutrophils % 83.9 % [facility] Neutr Abs (ANC) 14.44 (H) 1.70 - [facility] 6.10 [facility] x10(3)/[facility] LABORATORY Lymphocytes % 10.6 % [facility] Lymphocytes Abs 1.8 0.9 - 3.2 [facility] x10(3)/[facility] LABORATORY Monocytes % 4.5 % [facility] Monocyte Abs 0.8 0.3 - 0.9 [facility] x10(3)/[facility] LABORATORY Eosinophils % 0.0 % [facility] Eosinophils Abs 0.0 0.0 - 0.4 [facility] x10(3)/[facility] LABORATORY Basophils % 0.2 % [facility] Basophils Abs 0.0 0.0 - 0.1 [facility] x10(3)/[facility] LABORATORY Immature Gran % 0.80 % [facility] Comment: Immature granulocytes(IG's)percentage an d absolute count will include metamyelocytes, myelocytes, and promyelo cytes. Blood smears from CBCs yielding IG's will be scanned manually for concor dance. If this scan disagrees with the automated IG or if promyelocytes are not ed, a manual differential will be performed. [place] Gran Abs 0.13 (H) 0.00 - 0.04 x10(3)/[facility] LABORATORY Specimen Anatomical Collection Method Collection Time Receive d Time (Source) Location / / Volume Laterality Blood specimen 12/01/2020 4:56 AM 021 5:06 (specimen) EST AM EST Resulting Agency Comment Spec In Lab Stan Lopez MD HEMATOLOGY ORDERABLES Performing Organization Address City/State/[place] [address] (ABNORMAL) Hemogram (12/01/2020 4:56 AM EST) Analysis Performed At Patho logist Time Signature WBC 17.2 (H) 4.0 - 9.5 [facility] x[facility](3[facility] LABORATORY RBC 4.34 4.00 - [place] 5.21 [facility] x10(6)/[facility] LABORATORY Hemoglobin 13.4 11.7 - [facility]dL [facility] Hematocrit 39.5 35.7 - [facility] % [facility] MCV 91.0 82.6 - [facility] [facility] 94.4 [facility] LABORATORY MCH 30.9 27.1 - [place] CHANDA 32.[address] [facility] LABORATORY MCHC 33.9 31.7 [facility]dL [facility] LABORATORY Platelets 252 145 - 357 [facility] x10(3)/[facility] LABORATORY RDWSD 40.8 37.0 - [place] CHANDA 46.0 [facility] LABORATORY RDWCV 12.2 11.5 - [place] CHANDA 14.1 % [facility] LABORATORY MPV 10.1 7.6 - 12.9 [place] CH[facility] LABORATORY nRBC % Auto 0.0 % [facility] LABORATORY nRBC Abs Auto 0.000 0.000 - [facility] CHANDA 0.000 [facility] x10(3)/[facility] LABORATORY Specimen Anatomical Collection Method Collection Time Receive d Time (Source) Location / / Volume Laterality Blood specimen 12/01/2020 4:56 AM 021 5:06 (specimen) EST AM EST Resulting Agency Comment Spec In Lab Stan Lopez MD HEMATOLOGY ORDERABLES Performing Organization Address City/State/[place] [address] (ABNORMAL) Basic Metabolic Panel (non-fasting) (12/01/2020 4:56 AM EST) athologist Signature Glucose Lvl 251 (H) 65 - 199 [facility] mg/dL [facility] LABORATORY Comment: Diabetes: >=200 mg/dL plus symp toms BUN 8 8 - 18 mg/dL [facility] LABORATORY Creatinine 0.63 (L) 0.70 - 1.20 mg/dL [facility] LABORATORY Sodium 136 135 - 145 mmol/L [facility] LABORATORY Potassium 4.3 3.5 - 5.0 mmol/L [facility] LABORATORY Comment: Please note: ??Patients with WBC >100,00 0 may have falsely elevated Potassium levels. ??For accurate Potassium quantif ication in these patients send serum separator tube (gold top) for subsequent determinations. ??Contact the Clinical Chemistry Laboratory if there are any qu estions. Chloride 102 98 - 107 mmol/L [facility] LABORATORY CO2 25 22 - 31 mmol/L [facility] LABOR[facility] Anion Gap 9 5 - 15 mmol/L [facility] LABORATORY Calcium 9.1 8.5 - 10.5 mg/dL [facility] LABORATORY Estimated GFR 102 >=60 mL/min/1.73 m?? [facility] LABORATORY Comment: This patient? s estimated glomerular filtration rate (eGFR) is between 102 mL/min/1.73 m2 (patients with less muscl e mass) and 119 mL/min/1.73 m2 (patients with more muscle mass) as dete rmined by the CKD-EPI equation. Assessment of eGFR is not appropriate wh en creatinine concentrations are rapidly changing. For clinical decisions where creatinine clearance will affect therapy, a 24-hour urine creatinine devika johnson may be advised. Assignment of CKD stage 1 ? 5 for patients with an eGFR near the transition point between stages may be based on cli nical assessment of muscle mass and symptoms in addition to eGFR. Specimen Anatomical Collection Method Collection Time Receive d Time (Source) Location / / Volume Laterality Blood specimen 12/01/2020 4:56 AM 021 5:06 (specimen) EST AM EST Resulting Agency Comment Spec In Lab Rashard Hanley MD CHEMISTRY ORDERABLES Performing Organization Address City/State/[place] [address] (ABNORMAL) POCT Glucose (12/01/2020 3:41 AM EST) P athologist Signature POC Glucose 237 (H) 65 - 199 [facility]ATORY Comment: Supplemental ranges: <140 mg/dL before meals <180 mg/dL all other times of the day Specimen Anatomical Collection Method Collection Time Receive d Time (Source) Location / / Volume Laterality Blood specimen 12/01/2020 3:41 AM 021 3:41 (specimen) EST AM EST Rashard Hanley MD POINT OF CARE TEST ORDERABLE S Performing Organization Address City/State/[place] [address] (ABNORMAL) POCT Glucose (12/01/2020 1:29 AM EST) athologist Signature POC Glucose 278 (H) 65 - 199 [facility] LAB[facility]ATORY Comment: Supplemental ranges: <140 mg/dL before meals <180 mg/dL all other times of the day Specimen Anatomical Collection Method Collection Time Receive d Time (Source) Location / / Volume Laterality Blood specimen 12/01/2020 1:29 AM 021 1:29 (specimen) EST AM EST Rashard Hanley MD POINT OF CARE TEST ORDERABLE S Performing Organization Address City/State/[place] [address] (ABNORMAL) POCT Glucose (11/30/2020 11:32 PM EST) athologist Signature POC Glucose 298 (H) 65 - 199 [facility] LAB[facility]ORY Comment: Supplemental ranges: <140 mg/dL before meals <180 mg/dL all other times of the day Specimen Anatomical Collection Method Collection Time Receive d Time (Source) Location / / Volume Laterality Blood specimen 11/30/2020 11:32 1 (specimen) PM EST 11:32 PM EST Rashard Hanley MD POINT OF CARE TEST ORDERABLE S Performing Organization Address City/State/ZIP Code Phon e Number [place] [phone] XR Cervical Spine 2 or 3 Views (11/30/2020 7:47 PM EST) Anatomical Region Laterality Modality C-spine N/A Digital Radiography Specimen (Source) Anatomical Location Collection Method / Collectio n Time Received Time / Laterality Volume Impressions 11/30/2020 7:56 PM EST 1. ??Status post ACDF at C5-C7. 2. ??Increased anterolisthesis of C3 on C4 and C4 on C5 compared to prior CT and radiographs. Thank you for letting us participate in the care of this patient. For questions regarding this report, please contact e number below. ? Narrative 11/30/2020 7:56 PM EST EXAMINATION: XR CERVICAL SPINE 2 OR 3 VIEWS CLINICAL HISTORY: S/P C6 corpectomy AP and lateral upright please TECHNIQUE: 3 views of the cervical spine COMPARISON: Radiographs of the cervical spine 2020. CT of the cervical spine 09/18/2020 FINDINGS: Status post ACDF at C5-C7. The inferior aspect of the hardware is not well-visualized on the lateral view but is visualized on the swimmer's view and AP view. C7 and T1 are obscured on the l ateral view and swimmer's view. There is soft tissue edema within the prevertebra l soft tissues of C4-C6. There is 4mm anterolisthesis of C3 on C4 and 4 mm ant erolisthesis of C4 and C5, new compared to prior radiographs and increased sara red to 09/18/2020 CT. Normal predental interval. Drain tubing projects anterior to C5-C6. Procedure Note Camilo Viveros MD - 11/30/2020Fo rmatting of this note might be different from the original. EXAMINATION: XR CERVICAL SPINE 2 OR 3 EWS CLINICAL HISTORY: S/P C6 corpectomy AP and lateral upright please TECHNIQUE: 3 views of the cervical spine COMPARISON: Radiographs of the cervical spine 2020. CT of the cervical spine 09/18/2020 FINDINGS: Status post ACDF at C5-C7. The inferior aspect of the hardware is not well-visualized on the lateral view but is visualized on the swimmer's view and AP view. C7 and T1 are obscured on the l ateral view and swimmer's view. There is soft tissue edema within the prevertebra l soft tissues of C4-C6. There is 4mm anterolisthesis of C3 on C4 and 4 mm ant erolisthesis of C4 and C5, new compared to prior radiographs and increased sara red to 09/18/2020 CT. Normal predental interval. Drain tubing projects anterior to C5-C6. IMPRESSION 1. Status post ACDF at C5-C7. 2. Increased anterolisthesis of C3 on C4 and C4 on C5 compared to prior CT and radiographs. Thank you for letting us participate in the care of this patient. For questions regarding this report, please contact e number below. Rashard Hanley MD IMG DX ORDERABLES (ABNORMAL) POCT Glucose (11/30/2020 6:52 PM EST) athologist Signature POC Glucose 322 (H) 65 - 199 [facility] mg/dL [facility] LABORATORY Comment: Supplemental ranges: <140 mg/dL before meals <180 mg/dL all other times of the day Specimen Anatomical Collection Method Collection Time Receive d Time (Source) Location / / Volume Laterality Blood specimen 11/30/2020 6:52 PM 021 6:52 (specimen) EST PM EST Rashard Hanley MD POINT OF CARE TEST ORDERABLE S Performing Organization Address City/State/ZIP Code Phon e Number [place] [phone] [facility] LAB[address] Drive (ABNORMAL) POCT Glucose (11/30/2020 4:35 PM EST) P athologist Signature POC Glucose 228 (H) 65 - 199 [place] [facility] mg/dL [facility] LABORATORY Comment: Supplemental ranges: <140 mg/dL before meals <180 mg/dL all other times of the day Specimen Anatomical Collection Method Collection Time Receive d Time (Source) Location / / Volume Laterality Blood specimen 11/30/2020 4:35 PM 021 4:35 (specimen) EST PM EST Rashard Hanley MD POINT OF CARE TEST ORDERABLE S Performing Organization Address City/State/ZIP Code Phon e Number [address] XR Cervical Spine 1 View (11/30/2020 3:36 PM EST) Anatomical Region Laterality Modality C-spine N/A Digital Radiography Specimen (Source) Anatomical Location Collection Method / Collectio n Time Received Time / Laterality Volume Impressions 11/30/2020 4:48 PM EST Impression: Patient is intubated. Vertebral bodies a re imaged down to C4. The lower cervical spine is obscured by soft tissues of the shoulder. There appears to be interval ACDF at the lower cervical spine. Metall ic clamp projects over the C2-C3 facet joint. Recommend postoperative radiographs with the shoulders down when able. I have personally reviewed the image(s) and the resident's interpretation and agree with the findings, Moises Head MD at 11/30/2020 4:48 PM Thank you for letting us participate in the care of this patient. For questions regarding this report, please contact e number below. ? Narrative 11/30/2020 4:48 PM EST EXAMINATION: XR CERVICAL SPINE 1 VIEW CLINICAL HISTORY: Cervical myeloradiculo taiwo progressive TECHNIQUE: 1 views of the cervical spine COMPARISON: Radiographs from earlier same day. Procedure Note Moises Head MD - 11/30/2020Formatting o f this note might be different from the original. EXAMINATION: XR CERVICAL SPINE 1 VIEW CLINICAL HISTORY: Cervical myeloradiculo taiwo progressive TECHNIQUE: 1 views of the cervical spine COMPARISON: Radiographs from earlier same day. IMPRESSION Impression: Patient is intubated. Vertebral bodies a re imaged down to C4. The lower cervical spine is obscured by soft tissues of the shoulder. There appears to be interval ACDF at the lower cervical spine. Metall ic clamp projects over the C2-C3 facet joint. Recommend postoperative radiographs with the shoulders down when able. I have personally reviewed the image(s) and the resident's interpretation and agree with the findings, Moises Head MD at 11/30/2020 4:48 PM Thank you for letting us participate in the care of this patient. For questions regarding this report, please contact th e number below. Rashard Hanley MD IMG DX ORDERABLES XR Cervical Spine 1 View (11/30/2020 3:11 PM EST) Anatomical Region Laterality Modality C-spine N/A Digital Radiography Specimen (Source) Anatomical Location Collection Method / Collectio n Time Received Time / Laterality Volume Impressions 11/30/2020 3:50 PM EST As above Thank you for letting us participate in the care of this patient. For questions regarding this report, please contact th e number below. ? Narrative 11/30/2020 3:50 PM EST EXAMINATION: XR CERVICAL SPINE 1 VIEW CLINICAL HISTORY: Cervical myeloradiculo taiwo progressive 55-year-old female TECHNIQUE: 1 views of the cervical spine COMPARISON: Lateral view same day FINDINGS: Overlying surgical devices, intubated pa tient. Anterior familia at the level of the superior aspect of the C5 vertebral body . Procedure Note Heladio Dukes MD - 11/30/2020Format ting of this note might be different from the original. EXAMINATION: XR CERVICAL SPINE 1 VIEW CLINICAL HISTORY: Cervical myeloradiculo taiwo progressive 55-year-old female TECHNIQUE: 1 views of the cervical spine COMPARISON: Lateral view same day FINDINGS: Overlying surgical devices, intubated pa tient. Anterior familia at the level of the superior aspect of the C5 vertebral body . IMPRESSION As above Thank you for letting us participate in the care of this patient. For questions regarding this report, please contact e number below. Rashard Hanley MD IMG DX ORDERABLES (ABNORMAL) BLOOD GAS 2 ARTERIAL (11/30/2020 2:54 PM EST) Analysis Performed At Patho logist Time Signature pH Art 7.42 7.35 - [facility] 7.[address] [facility] LABORATORY pCO2 Art 32 (L) 35 - 45 [facility] mmHg [facility] LABORATORY pO2 Art 93 85 - 104 [facility] mmHg [facility] LABORATORY HCO3 Art 20.4 20.0 - [facility] 26.0 [facility] mmol/L [facility]ORAT[facility] BE Art -4.3 (L) -3.0 - 3.0 [facility] mmol/L [facility] LABORATORY Hgb Blood Gas 12.7 11.7 - [facility] 15.5 gm/dL [facility] LABORATORY O2HB Art 94.1 94.0 - [facility] 97.0 % [facility] LABORATORY COHB Art 3.3 % [facility] LABORATORY Comment: Nonsmokers: 0.5-1.5% COHB Smokers: Variable, but usually less than 10% Toxic: 20-30% COHB Lethal: Greater than 60% COHB METHB Art 0.3 <=1.5 % [facility] LABORATORY Na Whole Blood 135 135 - 145 mmol/L [facility] K Whole Blood 3.5 3.5 - 5.0 mmol/L [facility] LABOR[facility] Comment: Please note: Patients with WBC >100,000 may have falsely elevated Potassium levels. Contact the Clinical Chemistry L aboratory if there are any questions. ICa Whole Blood 1.09 (L) 1.15 - 1.33 mmol/L [facility] LABORATORY Comment: Note: ??Total bilirubin higher than 20 m g/dL may lead to falsely low ionized calcium. CL Whole Blood 110 (H) 98 - 107 mmol/L [facility] LABORATORY Gluc Whole Bld 214 (H) 65 - 199 mg/dL [facility] LABORATORY Comment: Diabetes: >=200 mg/dL plus symp toms. Lactate WB 1.8 0.5 - 2.2 mmol/L [facility] LABOR[facility] FIO2 Art 54 % [facility] LABOR[facility] Flow Art 8.0 LPM [facility] LABOR[facility] PF Ratio Art 172 [facility] Temp Art 36.4 Celsius [facility] LABORATORY Specimen Anatomical Collection Method Collection Time Receive d Time (Source) Location / / Volume Laterality Blood specimen 11/30/2020 2:54 PM 021 2:54 (specimen) EST PM EST Rashard Hanley MD CHEMISTRY ORDERABLES Performing Organization Address City/State/[place] [address] XR Cervical Spine 1 View (11/30/2020 1:45 PM EST) Anatomical Region Laterality Modality C-spine N/A Digital Radiography Specimen (Source) Anatomical Location Collection Method / Collectio n Time Received Time / Laterality Volume Impressions 11/30/2020 2:06 PM EST Thin metallic probe indicates the anterior C5 vertebral body. Thank you for letting us participate in the care of this patient. For questions regarding this report, please contact th e number below. ? Narrative 11/30/2020 2:06 PM EST EXAMINATION: XR CERVICAL SPINE 1 VIEW CLINICAL HISTORY: Cervical myeloradiculo taiwo progressive TECHNIQUE: Cross table lateral view of the cervical spine, portable in OR at 1340 COMPARISON: Radiographs September 18, 2020 and 2020; CT September 18, 2020 FINDINGS: The image evaluates to the C5 vertebral body. Thin metallic probe indicates the anteri or C5 vertebral body. Additional equipment including airway tu be, overlying monitor wires and clamp projecting over the skull base. No malalignment or acute abnormality. Procedure Note FosterMattie MD - 11/30/2020Forma tting of this note might be different from the original. EXAMINATION: XR CERVICAL SPINE 1 VIEW CLINICAL HISTORY: Cervical myeloradiculo taiwo progressive TECHNIQUE: Cross table lateral view of the cervical spine, portable in OR at 1340 COMPARISON: Radiographs September 18, 2020 and uar y 2020; CT September 18, 2020 FINDINGS: The image evaluates to the C5 vertebral body. Thin metallic probe indicates the anteri or C5 vertebral body. Additional equipment including airway tu be, overlying monitor wires and clamp projecting over the skull base. No malalignment or acute abnormality. IMPRESSION Thin metallic probe indicates the anteri or C5 vertebral body. Thank you for letting us participate in the care of this patient. For questions regarding this report, please contact e number below. Rashard Hanley MD IMG DX ORDERABLES XR Cervical Spine 1 View (11/30/2020 1:43 PM EST) Anatomical Region Laterality Modality C-spine N/A Digital Radiography Specimen (Source) Anatomical Location Collection Method / Collectio n Time Received Time / Laterality Volume Impressions 11/30/2020 1:55 PM EST As above. Thank you for letting us participate in the care of this patient. For questions regarding this report, please contact [facility] number below. ? Narrative 11/30/2020 1:55 PM EST EXAMINATION: XR CERVICAL SPINE 1 VIEW CLINICAL HISTORY: Cervical myeloradiculo taiwo progressive 55-year-old female TECHNIQUE: 1 views of the cervical spine COMPARISON: Cervical spine of 11/30/2020, 09/18/2020. FINDINGS: Endotracheal tube, multiple leads and ov erlying clamp device. The visualized cervical vertebral bodies are appreciate d, with mild spondylitic change. A radiopaque familia extends anteriorly, altho ugh the tip is not well visualized, approximately location of the C5/C6 leve l. Procedure Note Heladio Dukes MD - 11/30/2020Format ting of this note might be different from the original. EXAMINATION: XR CERVICAL SPINE 1 VIEW CLINICAL HISTORY: Cervical myeloradiculo taiwo progressive 55-year-old female TECHNIQUE: 1 views of the cervical spine COMPARISON: Cervical spine of 11/30/2020, 09/18/2020. FINDINGS: Endotracheal tube, multiple leads and ov erlying clamp device. The visualized cervical vertebral bodies are appreciate d, with mild spondylitic change. A radiopaque familia extends anteriorly, altho ugh the tip is not well visualized, approximately location of the C5/C6 leve l. IMPRESSION As above. Thank you for letting us participate in the care of this patient. For questions regarding this report, please contact [facility] number below. Rashard Hanley MD IMG DX ORDERABLES XR Cervical Spine 1 View (11/30/2020 12:46 PM EST) Anatomical Region Laterality Modality C-spine N/A Digital Radiography Specimen (Source) Anatomical Location Collection Method / Collectio n Time Received Time / Laterality Volume Impressions 11/30/2020 1:00 PM EST Cervical spondylosis and facet arthropathy, intraoperative. No malalignment. Thank you for letting us participate in the care of this patient. For questions regarding this report, please contact e number below. ? Narrative 11/30/2020 1:00 PM EST EXAMINATION: XR CERVICAL SPINE 1 VIEW CLINICAL HISTORY: cervical corpectomy TECHNIQUE: Cross table lateral views of the cervica l spine, portable in operating room COMPARISON: CT and radiographs September 18, 2020 FINDINGS: Lateral view images through the C5 verte bral body. The visualized vertebrae are intact with preserved height. C4-5 intervertebral disc space narrowing with small endplate osteophytes and mild facet joint osteoarthropathy are un changed. External monitoring leads, airway tubing and surgical clamp in the anterior lower neck soft tissues are seen. Procedure Note Mattie Laughlin MD - 11/30/2020Forma tting of this note might be different from the original. EXAMINATION: XR CERVICAL SPINE 1 VIEW CLINICAL HISTORY: cervical corpectomy TECHNIQUE: Cross table lateral views of the cervica l spine, portable in operating room COMPARISON: CT and radiographs September 18, 2020 FINDINGS: Lateral view images through the C5 verte bral body. The visualized vertebrae are intact with preserved height. C4-5 intervertebral disc space narrowing with small endplate osteophytes and mild facet joint osteoarthropathy are un changed. External monitoring leads, airway tubing and surgical clamp in the anterior lower neck soft tissues are seen. IMPRESSION Cervical spondylosis and facet arthropat hy, intraoperative. No malalignment. Thank you for letting us participate in the care of this patient. For questions regarding this report, please contact e number below. Rashard Hanley MD IMG DX ORDERABLES (ABNORMAL) BLOOD GAS 2 ARTERIAL (11/30/2020 12:34 PM EST) Analysis Performed At Patho logist Time Signature pH Art 7.36 7.35 - [facility] 7.[address] [facility]ORY pCO2 Art 38 35 - 45 [facility] mmHg [facility] pO2 Art 142 (H) 85 - 104 [facility] mmHg [facility] HCO3 Art 21.2 20.0 - [facility] 26.0 [facility] mmol/L [facility] BE Art -4.5 (L) -3.0 - 3.0 [facility] mmol/L [facility]ORY Hgb Blood Gas 13.5 11.7 - [facility] 15.5 gm/dL [facility] O2HB Art 94.3 94.0 - [facility] 97.0 % [facility] COHB Art 4.0 % [facility] Comment: Nonsmokers: 0.5-1.5% COHB Smokers: Variable, but usually less than 10% Toxic: 20-30% COHB Lethal: Greater than 60% COHB METHB Art 0.3 <=1.5 % [facility] Na Whole Blood 136 135 - 145 mmol/L [facility] K Whole Blood 3.7 3.5 - 5.0 mmol/L [facility] Comment: Please note: Patients with WBC >100,000 may have falsely elevated Potassium levels. Contact the Clinical Chemistry L aboratory if there are any questions. ICa Whole Blood 1.18 1.15 - 1.33 mmol/L [facility] Comment: Note: ??Total bilirubin higher than 20 m g/dL may lead to falsely low ionized calcium. CL Whole Blood 106 98 - 107 mmol/L [facility] Gluc Whole Bld 176 65 - 199 mg/dL [facility] Comment: Diabetes: >=200 mg/dL plus symp toms. Lactate WB 2.0 0.5 - 2.2 mmol/L [facility] FIO2 Art 66 % [facility] Flow Art 1.5 LPM [facility] PF Ratio Art 215 [facility] Temp Art 36.0 Celsius [facility] Specimen Anatomical Collection Method Collection Time Receive d Time (Source) Location / / Volume Laterality Blood specimen 11/30/2020 12:34 1 (specimen) PM EST 12:34 PM EST Rashard Hanley MD CHEMISTRY ORDERABLES Performing Organization Address City/State/[place] [address] (ABNORMAL) POCT Glucose (11/30/2020 10:57 AM EST) P athologist Signature POC Glucose 218 (H) 65 - 199 [facility] mg/dL [facility] Comment: Supplemental ranges: <140 mg/dL before meals <180 mg/dL all other times of the day Specimen Anatomical Collection Method Collection Time Receive d Time (Source) Location / / Volume Laterality Blood specimen 11/30/2020 10:57 1 (specimen) AM EST 10:57 AM EST Rashard Hanley MD POINT OF CARE TEST ORDERABLE S Performing Organization Address City/State/[place] [address] documented in this encounter Visit Diagnoses Diagnosis S/P C6 corpectomy, C5-7 ACCF 11/30/20 Dr. Hanley - Primary Arthrodesis status Cervical spondylosis with myelopathy DDD (degenerative disc disease), cervica l Degeneration of cervical intervertebral disc Cervical spondylosis with myelopathy DDD (degenerative disc disease), cervica l Degeneration of cervical intervertebral disc documented in this encounter Admitting Diagnoses Diagnosis DDD (degenerative disc disease), cervica l Degeneration of cervical intervertebral disc Cervical spondylosis with myelopathy documented in this encounter Administered Medications Inactive Administered Medications - up to 3 most recent administrations Medication Order MAR Action Action Date Dose Rate Site acetaminophen (Tylenol) tablet Given 12/01/2020 1:35 PM EST 1,00 0 mg 1,000 mg 1,000 mg, Oral, EVERY 8 HOURS SCHEDULED, First dose on Thu11/30/20 at 1715, Until Discontinued, Maximum dose of acetaminophen is 4000 mg from all sources in 24 hours. When ordered for pain, acetaminophen should be given even when other ordered pain medications are indicated. , Routine Given 12/01/2020 5:50 AM EST 1,000 mg Given 11/30/2020 11:45 PM EST 1,000 mg albuteroL (PROVENTIL) nebulizer solution 2.5 mg 2.5 mg, Nebulization, EVERY 4 HOURS PRN, Starting on 12/01/20 at 0958, Until 12/01/20 at 1937, Wheezing, Routine ALPRAZolam (Xanax) tablet 1 mg Given 12/01/2020 12:10 AM EST 1 mg 1 mg, Oral, 3 TIMES DAILY PRN, Starting on Thu11/30/20 at 1649, Until 12/01/20 at 1937, Anxiety, Routine amLODIPine (Norvasc) tablet 10 mg Given 12/01/2020 8:23 AM EST 10 mg 10 mg, Oral, DAILY, First dose on 12/01/20 at 0900, Until Discontinued, Hold if SBP<90, Routine ARIPiprazole (Abilify) tablet 30 mg Given 12/01/2020 10:37 AM EST 30 mg 30 mg, Oral, DAILY, First dose on 12/01/20 at 0900, Until Discontinued, Routine atorvastatin (Lipitor) tablet 20 mg Given 11/30/2020 8:51 PM EST 20 mg 20 mg, Oral, DAILY, First dose on Thu11/30/20 at 2030, Until Discontinued, Routine bacitracin ointment Given 11/30/2020 1:18 PM 1 Tube 20-Other (document ONCE PRN, Starting on Thu EST in comment section) 11/30/20 at 1318, Until 12/01/20 at 1937, Intra-Operative (Intra-Procedure) dextrose 10% infusion 250 mL, at 1,000 mL/hr, Intravenous, CRISS RY 30 MIN PRN, Starting on Thu11/30/20 at 2009, Until 12/01/20 at 1937, For BG 50-70 mg/dL: Oral treatment preferred:?? If able to drink, give 120 mL Juice or R egular (not diet) soda OR If NPO, give 15 gram glucose 40% oral gel massaged into buccal mucosa OR if unconscious or uncooperative, give 25 gram (250 mL) Dex trose 10% IV over 15 minutes per protocol OR, if no IV access, 1 mg Glucagon IM. * * For BG less than 50 mg/dL: Oral treatment preferred:?? If able to drink, give 240 mL Juice or Regular (not diet) soda OR If NPO, give 30 gram glucose 40% oral gel m assaged in buccal mucosa OR if unconscious or uncooperative, give 25 gram (250 mL) Dextrose 10% I V over 15 minutes per protocol OR, if no IV access, 1 mg Glucagon IM. Rech natty BG in 30 minutes. May repeat juice/soda, gel, dextrose or gluc agon once per episode. For persistent hypoglycemia, consider longer-acting treatment for the duration of the active insulin. DULoxetine DR (Cymbalta) capsule 60 mg Given 12/01/2020 8:23 AM EST 60 mg 60 mg, Oral, DAILY, First dose on 12/01/20 at 0900, Until Discontinued, Routine gelatin adsorbable 100 Given 11/30/2020 1:19 PM EST 1 each 19- Surgical Site (GELFOAM) sponge ONCE PRN, Starting on Thu11/30/20 at 1319, Until 12/01/20 at 1937, Intra-Operative (Intra-Procedure), Routine glipiZIDE (Glucotrol) tablet 10 mg Given 12/01/2020 8:22 AM EST 10 mg 10 mg, Oral, EVERY MORNING BEFORE BREAKFAST, First dose on 12/01/20 at 0815, Until Discontinued, Administer 30 minutes before the meal. Consider holding dose if patient is not eating. , Routine glucagon (Glucagen) (1 mg/mL) injection solution 1 mg 1 mg, Intramuscular, EVERY 30 MIN PRN, S tarting on Thu11/30/20 at 2008, Until 12/01/20 at 1937, Low blood sugar, For BG 50-70 mg/d L: Oral treatment preferred:?? If able to drink, give 120 mL Juice or Regular (not diet) soda OR If NPO, give 15 gram glucose 40% oral gel massaged into b uccal mucosa OR if unconscious or uncooperative, give 25 gr am (250 mL) Dextrose 10% IV over 15 minutes per protocol OR, if no IV access, 1 mg G lucagon IM. For BG less than 50 mg/dL: Oral treatment preferred:?? If able to drink, give 240 mL Juice or Regular (not diet) soda OR If NPO, give 30 gram gluco se 40% oral gel massaged in buccal mucosa OR if unconscious or uncooperative, give 25 gram (250 mL) Dextrose 10% IV over 15 minutes per protocol OR, if no IV access, 1 mg Glucago n IM. Recheck BG in 30 minutes. May repeat juice/soda, gel, dex trose or glucagon once per episode. For persistent hypoglycemia, consider longer -acting treatment for the duration of the active insulin., Routine glucose (GLUTOSE) 40% oral geL 15-30 g, Buccal, EVERY 30 MIN PRN, Starting on 11/12 at 2008, Until 12/01/20 at 1937, Low blood sugar, For BG 50-70 mg/d L: Oral treatment preferred:?? If able to drink, give 120 mL Juice or Regular (not diet) soda OR If NPO, give 15 gram glucose 40% oral gel massaged into b uccal mucosa OR if unconscious or uncooperative, give 25 gr am (250 mL) Dextrose 10% IV over 15 minutes per protocol OR, if no IV access, 1 mg G lucagon IM. For BG less than 50 mg/dL: Oral treatment preferred:?? If able to drink, give 240 mL Juice or Regular (not diet) soda OR If NPO, give 30 gram gluco se 40% oral gel massaged in buccal mucosa OR if unconscious or uncooperative, give 25 gram (250 mL) Dextrose 10% IV over 15 minutes per protocol OR, if no IV access, 1 mg Glucago n IM. Recheck BG in 30 minutes. May repeat juice/soda, gel, dex trose or glucagon once per episode. For persistent hypoglycemia, consider longer -acting treatment for the duration of the active insulin. 1 tube contains 15 grams of glucose (n et weight of tube = 37.5 grams., Routine hydroCHLOROthiazide (Hydrodiuril) tablet 50 mg Given 12/01/2020 8:23 AM EST 50 mg 50 mg, Oral, DAILY, First dose on 12/01/20 at 0900, Until Discontinued, Hold if SBP<50, Routine insulin lispro (HumaLOG) (100 unit/mL) Given 12/01/2020 1:33 PM EST 6 Units subcutaneous injection vial 0-8 Units 0-8 Units, Subcutaneous, 3 TIMES DAILY WITH MEALS, First dose on 12/01/20 at 0815, Until Discontinued, [employer] Give 1 unit for every 10 grams carbohydrate. Hold if not eating or if BG less than 70., Routine Given 12/01/2020 8:40 AM EST 6 Units insulin lispro (HumaLOG) (100 unit/mL) Given 12/01/2020 3:38 PM EST 1 Units subcutaneous injection vial 1-6 Units 1-6 Units, Subcutaneous, EVERY 4 HOURS SCHEDULED, First dose on 12/01/20 at 0815, Until Discontinued, CORRECTION BOLUS [1-6 Units] Moderate Sliding Scale: Correction factor 20 (1 unit of insulin is expected to drop the glucose 20 mg/dL) BG 140 - 160 Give 1 unit BG 161 - 180 Give 2 units BG 181 - 200 Give 3 units BG 201 - 220 Give 4 units BG 221 - 240 Give 5 units BG greater than 240, give 6 units and recheck BG in 2 hours. - If recheck BG is LESS than 240, give no insulin and resume schedule. - If recheck BG is GREATER than 240, give 6 units and repeat BG in 2 hours (no more than 3 times) & call for new insulin orders. DO NOT hold if NPO, unless specifically told to do so. Per Blood Glucose Monitoring Policy, re-check a BG of > 240 in 2 hours., Routine Given 12/01/2020 12:21 PM EST 2 Units Given 12/01/2020 8:20 AM EST 4 Units ipratropium-albuteroL (DUONEB) 0.5 mg-3 mg(2.5 Given 0 12/01/2020 8:41 AM EST 3 mLs mg base)/3 mL nebulizer solution 3 mL 3 mL, Nebulization, 4 TIMES DAILY, First dose on Thu11/30/20 at 2100, Until Discontinued, Routine Given 11/30/2020 9:00 PM EST 3 mLs levothyroxine (Synthroid) tablet 325 mcg Given 12/01/2020 5:49 AM EST 325 mcg 325 mcg, Oral, DAILY, First dose on 12/01/20 at 0600, Until Discontinued, Routine ondansetron (pf) (Zofran) (2 mg/mL) injection Given 12:20 AM EST 4 mg 4 mg 4 mg, Intravenous, EVERY 8 HOURS PRN, Starting on Thu11/30/20 at 2009, Until 12/01/20 at 1937, Nausea, If multiple antiemetics are ordered, use ondansetron first, prochlorperazine second, metoclopramide third. oxyCODONE (Roxicodone) tablet 10 mg Given 11/30/2020 5:10 PM EST 10 mg 10 mg, Oral, EVERY 4 HOURS PRN, Starting on Thu11/30/20 at 1649, Until 12/01/20 at 1937, Pain, moderate pain (4-6), For moderate pain (4-6). Do not exceed 15 mg in 4 hours. If pain not relieved, call provider., Routine oxyCODONE (Roxicodone) tablet 15 mg Given 12/01/2020 3:00 PM EST 15 mg 15 mg, Oral, EVERY 4 HOURS PRN, Starting on Thu11/30/20 at 1649, Until 12/01/20 at 1937, Pain, severe pain (7-10), For severe pain (7-10). Do not exceed 15 mg in 4 hours. If pain not relieved, call provider., Routine Given 12/01/2020 9:52 AM EST 15 mg Given 12/01/2020 3:49 AM EST 15 mg oxyCODONE (Roxicodone) tablet 5 mg 5 mg, Oral, EVERY 4 HOURS PRN, Starting on Thu11/30/20 at 1649, Until 12/01/20 at 1937, Pain, mild pain (1-3), For mild pain (1-3). D o not exceed 15 mg in 4 hours. If pain not relieved, call provider, Routine polyethylene glycoL (Miralax) packet 17 g Given 12/01/2020 8:22 AM EST 17 g 17 g, Oral, 2 TIMES DAILY, First dose on Thu11/30/20 at 2100, Until Discontinued, Routine Given 11/30/2020 8:49 PM EST 17 g senna-docusate (Pericolace) 8.6-50 mg per Given 2020 8:23 AM EST 2 tablets tablet 2 tablet 2 tablet, Oral, 2 TIMES DAILY, First dose on Thu11/30/20 at 2100, Until Discontinued, Routine Given 11/30/2020 8:47 PM EST 2 tablets sodium chloride 0.9 % (flush) flush 5 mL Given 12/01/2020 8:27 AM EST 5 mLs 5 mL, Intravenous, 2 TIMES DAILY, First dose on Thu11/30/20 at 2100, Until Discontinued, Routine Given 11/30/2020 8:49 PM EST 5 mLs sodium chloride 0.9% infusion New Bag 12/01/2020 3:50 AM EST 1,000 mLs 100 mL/hr 1,000 mL, at 100 mL/hr, Intravenous, CONTINUOUS, Starting on Thu11/30/20 at 1715, Until 12/01/20 at 1937 New Bag 11/30/2020 4:59 PM EST 1,000 mLs 100 mL/hr thrombin (Bovine) Given 11/30/2020 1:19 PM 20,000 Units 19- Surgical Site (THROMBINAR) kit EST ONCE PRN, Starting on Thu11/30/20 at 1319, Until 12/01/20 at 1937, Intra-Operative (Intra-Procedure) documented in this encounter Active and Recently Administered Medications Times are shown in EST. Scheduled Medication Order 11/29/2020 11/30/2020 12/01/2020 acetaminophen (Tylenol) tablet 1,000 mg 1710 (Given - Provider: Charlotte Stacy MARCOS)2345 (Given - Provider: Alden Clinton, MARCOS) 0550 (Given - Provider: Alden Clinton, RN)1335 (Given - Provider: Halle Fried, MARCOS) 1,000 mg, Oral, EVERY 8 HOURS SCHEDULED, First dose on Thu11/30/20 at 1715, Until Discontinued, Maximum dose of acetaminophen is 4000 mg from all sources in 24 hours. When ordered for pain, acetaminophe n should be given even when other ordere d pain medications are indicated. , Routine amLODIPine (Norvasc) tablet 10 mg 08 (Given - Provider: Halle Fried, MARCOS) 10 mg, Oral, DAILY, First dose on Sat at 0900, Until Discontinued, Hold if SBP<90, Routine ARIPiprazole (Abilify) tablet 30 mg 1037 (Given - Provider: Halle Fried RN) 30 mg, Oral, DAILY, First dose on Sat at 0900, Until Discontinued, Routine atorvastatin (Lipitor) tablet 20 mg 2050 (Given - Provider: Alden Clinton RN) 1700 (Due) 20 mg, Oral, DAILY, First dose on Thu at 2030, Until Discontinued, Routine ceFAZolin (Ancef) 1 g in dextrose 5% 50 mL infusion (COMPLET ED) 1704 (New Bag - Provider: Charlotte Stacy, MARCOS)1734 (Stopped - Provider: Charlotte Stacy, MARCOS) 0041 (New Bag - Provider: Alden Clinton RN)0111 (Stopped - Provider: Alden Clinton RN)0828 (New Bag - Provider: Halle Fried RN)0858 (Stopped - Provider: Halle Fried RN) 1 g, Intravenous, EVERY 8 HOURS, 3 doses , First dose on Thu11/30/20 at 1700, Last dose on 12/01/20 at 0900, Administer over 30 Minutes, Adjust to 4 hours from intraoperative dose. * Beta-lactam based antibiotics (eg. Ampicillin, Cefazolin, Aztreonam) should be administered within 4 hours of the preceding intraoperative dose. * Vancomycin, Flouroquinolones, Clindamycin, Gentamicin, and Metronidazole should be administered within 8 hours o f the preceding intraoperative dose., Recovery (Recovery-Hospital Unit), Indication for (Active or Suspected): Prophylaxis DULoxetine DR (Cymbalta) capsule 60 mg 08 (Given - Provider: Halle Fried RN) 60 mg, Oral, DAILY, First dose on Sat at 0900, Until Discontinued, Routine glipiZIDE (Glucotrol) tablet 10 mg 08 (Given - Provider: Halle Fried RN) 10 mg, Oral, EVERY MORNING BEFORE BREAKF AST, First dose on 12/01/20 at 0815, Until Discontinued, Administer 30 minutes before the meal. Consider holding dose if patient is not eating. , Routine hydroCHLOROthiazide (Hydrodiuril) tablet 50 mg 08 (Given - Provider: Halle Fried RN) 50 mg, Oral, DAILY, First dose on Sat at 0900, Until Discontinued, Hold if SBP<50, Routine insulin lispro (HumaLOG) (100 unit/mL) subcutaneous injection vi al 0-8 Units 0840 (Given - Provider: Halle Fried RN)1333 (Given - Provider: Halle Fried RN)1700 (Due) 0-8 Units, Subcutaneous, 3 TIMES DAILY W ITH MEALS, First dose on 12/01/20 at 0815, Until Discontinued, [employer] Give 1 unit for every 10 grams carbohydrate. Hold if not eating or if BG less than 70., Routine insulin lispro (HumaLOG) (100 unit/mL) s ubcutaneous injection vial 1-4 Units (CANCELED) 1854 (Given - Provider: Jeovanny Stacy RN)1999 (Not Given - Provider: Alden Clinton, MARCOS - Reason: See comment - Comment: given at 1855)2345 (Given - Provider: Alden Clinton, MARCOS) 0357 (Given - Provider: Alden Clinton, MARCOS) 1-4 Units, Subcutaneous, EVERY 4 HOURS S CHEDULED, First dose on Thu11/30/20 at 1715, Until Discontinued, CORRECTION BOLUS [1-4 Units] Sensitive Sliding Scale: Correction factor 40 (1 unit of insulin is expected to drop the glucose 40 mg/d L) BG 160 - 200 Give 1 unit BG 201 - 240 Give 2 units BG 241 - 280 Give 3 units BG greater than 280, give 4 units and recheck BG in 2 hours. - If recheck BG is LE SS than 280, give no insulin and resume schedule - If recheck BG is GREATER than 280, give 4 units and repeat BG in 2 hours (no more than 3 times) & call for new insulin orders. DO NOT hold if NPO, unless specifically told to do so. Per B lood Glucose Monitoring Policy, re-check a BG of > 240 in 2 hours., Routine insulin lispro (HumaLOG) (100 unit/mL) s ubcutaneous injection vial 1-6 Units(Linked Group 1) 0820 (Given - Prov ider: Halle Fried, MARCOS)1221 (Given - Provider: Mallory Bowles LPN)1538 (Given - Provider: Mallory Bowles LPN) 1-6 Units, Subcutaneous, EVERY 4 HOURS S CHEDULED, First dose on 12/01/20 at 0815, Until Discontinued, CORRECTION BOLUS [1-6 Units] Moderate Sliding Scale: Correction factor 20 (1 unit of insulin is expected to drop the glucose 20 mg/dL ) BG 140 - 160 Give 1 unit BG 161 - 180 Give 2 units BG 181 - 200 Give 3 units BG 201 - 220 Give 4 units BG 221 - 240 Give 5 units BG greater than 240, give 6 uni ts and recheck BG in 2 hours. - If reche ck BG is LESS than 240, give no insulin and resume schedule. - If recheck BG is GREATER than 240, give 6 units and repeat BG in 2 hours (no more than 3 times) &am p; call for new insulin orders. DO NOT h old if NPO, unless specifically told to do so. Per Blood Glucose Monitoring Policy, re-check a BG of > 240 in 2 hours., Routine ipratropium-albuteroL (DUONEB) 0.5 mg-3 mg(2.5 mg base)/3 mL nebulizer solution 3 mL 2100 (Given - Provider: Alden Clinton RN) 0841 (Given - Provider: Halle Fried, MARCOS)1223 (Not Given - Provider: Mallory Bowles LPN - Reason: Patient/family refused - Comment: declined the need for the neb tx)1700 (Due) 3 mL, Nebulization, 4 TIMES DAILY, First dose on Thu11/30/20 at 2100, Until Discontinued, Routine levothyroxine (Synthroid) tablet 325 mcg 49 (Given - Provider: Alden Clinton, MARCOS) 325 mcg, Oral, DAILY, First dose on Thu12/01/20 at 0600, Until Discontinued, Routine polyethylene glycoL (Miralax) packet 17 g 2048 (Given - Provider: Alden Clinton, RN) 08 (Given - Provider: Halle Fried, MARCOS) 17 g, Oral, 2 TIMES DAILY, First dose on Thu11/30/20 at 2100, Until Discontinued, Routine senna-docusate (Pericolace) 8.6-50 mg per tablet 2 tablet 2046 (Given - Provider: Alden Clinton, MARCOS) 0823 (Given - Provider: Halle Fried, MARCOS) 2 tablet, Oral, 2 TIMES DAILY, First dos e on Thu11/30/20 at 2100, Until Discontinued, Routine sodium chloride 0.9 % (flush) flush 5 mL 2048 (Given - Provider: Alden Clinton RN) 08 (Given - Provider: Halle Fried RN) 5 mL, Intravenous, 2 TIMES DAILY, First dose on Thu11/30/20 at 2100, Until Discontinued, Routine tranexamic acid (Cyklokapron) 1,328 mg i n sodium chloride 0.9% 113.28 mL infusion (COMPLETED) 1152 (New Bag - Provider: Ngozi Jiménez CRNA)1158 (Canceled Entry - Provider: Evy Jiménez CRNA)1218 (Canceled Entry - Provider: Evy Jiménez CRNA)1222 (Stopped - Provider: Evy Jiménez CRNA) 1,328 mg (rounded from 1,327.5 mg = 15 m g/kg/dose ? 88.5 kg), Intravenous, ONCE, 1 dose, Thu11/30/20 at 1030, Administer over 30 Minutes, Day of Surgery (Day of Procedure) 1228 (Cance led Entry - Provider: Evy Jiménez CRNA)1232 (Canceled Entry - Provider: Evy Jiménez CRNA)1238 (Canceled Entry - Provider: Evy Jiménez CRNA) Continuous Medication Order 11/29/2020 11/30/2020 12/01/2020 lactated ringers infusion (CANCELED) 114 0 (New Bag - Provider: Evy Jiménez CRNA)1540 (Stopped - Provider: Evy Jiménez CRNA)1541 (New Bag - Provider: Evy Jiménez CRNA) 1,000 mL, at 100 mL/hr, Intravenous, CON TINUOUS, Starting 11/30/20 at 1115, Until Thu11/30/20 at 1649, Day of Surgery (Day of Procedure) sodium chloride 0.9% infusion 1659 (New Bag - Pr ovider: Charlotte Stacy RN) 0350 (New Bag - Provider: Alden Clinton, MARCOS) 1,000 mL, at 100 mL/hr, Intravenous, CON TINUOUS, Starting 11/30/20 at 1715, Until 12/01/20 at 1937 tranexamic acid (Cyklokapron) 1,000 mg i n sodium chloride 0.9% 110 mL infusion (CANCELED) 1228 (New Bag - Provider: Ngozi Jiménez CRNA)1242 (Canceled Entry - Provider: Evy Jiménez CRNA) 1 mg/kg/hr ? 88.5 kg (9.735 mL/hr, rounded to 9.7 mL/hr), at 9.7 mL/hr, Intravenous, CONTINUOUS, Starting 11/30/20 at 1030, Until Thu11/30/20 at 1649, Day of Surgery (Day of Procedure) PRN Medication Order 11/29/2020 11/30/2020 12/01/2020 albuteroL (PROVENTIL) nebulizer solution 2.5 mg 2.5 mg, Nebulization, EVERY 4 HOURS PRN, Starting 12/01/20 at 0958, Until 12/01/20 at 1937, Wheezing, Routine ALPRAZolam (Xanax) tablet 1 mg 0 010 (Given - Provider: Alden Clinton, MARCOS) 1 mg, Oral, 3 TIMES DAILY PRN, Starting 11/30/20 at 1649, Until 12/01/20 at 1937, Anxiety, Routine bacitracin ointment (CANCELED) 1318 (Giv en - Provider: Rashard Hanley MD - Comment: Pin sites on head) ONCE PRN, Starting Thu11/30/20 at 1318, Until 12/01/20 at 193, Intra- Operative (Intra-Procedure) bisacodyL (Dulcolax) suppository 10 mg 10 mg, Rectal, DAILY PRN, Starting Thu at 2008, Until 12/01/20 at 193, Constipation, Administer if needed per patient's routine or if no bowel movement within 48 hours to achieve: (1) One derrick wel movement every 48 hours, AND (2) wit hout straining. If multiple PRN bowel medications ordered, start with lactulose, then oral bisacodyl, then bisacodyl suppository. Multiple medications may be given concomitantly for constipation., Routine bisacodyl EC (Dulcolax) tablet 10 mg 10 mg, Oral, 2 TIMES DAILY PRN, Starting Thu11/30/20 at 2008, Until 12/01/20 at 193, Constipation, DO NOT CRUSH OR OPEN Administer if needed per patient's routine or if no bowel movement within 48 hours to achieve: (1) One bowel movem ent every 48 hours, AND (2) without straining. If multiple PRN bowel medications ordered, start with lactulose, then oral bisacodyl, then bisacodyl suppository. M ultiple medications may be given concomitantly for constipation. , Routine dextrose 10% infusion(Linked Group 2) 250 mL, at 1,000 mL/hr, Intravenous, CRISS RY 30 MIN PRN, Starting Thu11/30/20 at 2008, Until 12/01/20 at 1936, For BG 50-70 mg/dL: Oral treatment preferred:?? If able to drink, give 120 mL Juice or Regular (not diet) soda OR If NPO, give 15 gram glucose 40% oral gel massaged into buccal mucosa OR if unconscious or uncooperative, give 25 gram (250 mL) Dextrose 10% IV over 15 minutes per protocol OR , if no IV access, 1 mg Glucagon IM. For BG less than 50 mg/dL: Oral treatment preferred:?? If able to drink, give 240 mL Juice or Regular (not diet) soda OR If NPO, give 30 gram glucose 40% oral gel massaged in buccal mucosa OR if unconsc ious or uncooperative, give 25 gram (250 mL) Dextrose 10% IV over 15 minutes per protocol OR, if no IV access, 1 mg Glucagon IM. Recheck BG in 30 minutes. May r epeat juice/soda, gel, dextrose or gluca ken once per episode. For persistent hypoglycemia, consider longer-acting treatment for the duration of the active insulin. gelatin adsorbable 100 (GELFOAM) sponge (CANCELED) 1319 (Given - Provider: Rashard Hanley MD - Comment: Soaking in thrombin on back table) ONCE PRN, Starting Thu11/30/20 at 1319, Until 12/01/20 at 193, Intra- Operative (Intra-Procedure), Routine glucagon (Glucagen) (1 mg/mL) injection solution 1 mg(Linked Mana up 2) 1 mg, Intramuscular, EVERY 30 MIN PRN, S tarting Thu11/30/20 at 2008, Until 12/01/20 at 193, Low blood sugar, For BG 50-70 mg/dL: Oral treatment preferred:?? If able to drink, give 120 mL Juice or Regular (not diet) soda OR If NPO, give 15 gram glucose 40% oral gel massaged into buccal mucosa OR if unconscious or uncooperative, give 25 gram (250 mL) Dextrose 10% IV over 15 minutes per protocol O R, if no IV access, 1 mg Glucagon IM. For BG less than 50 mg/dL: Oral treatment preferred:?? If able to drink, give 240 mL Juice or Regular (not diet) soda OR If NPO, give 30 gram glucose 40% oral ge l massaged in buccal mucosa OR if uncons cious or uncooperative, give 25 gram (250 mL) Dextrose 10% IV over 15 minutes per protocol OR, if no IV access, 1 mg Glucagon IM. Recheck BG in 30 minutes. May repeat juice/soda, gel, dextrose or gluc agon once per episode. For persistent hypoglycemia, consider longer-acting treatment for the duration of the active insulin., Routine glucose (GLUTOSE) 40% oral geL(Linked Group 2) 15-30 g, Buccal, EVERY 30 MIN PRN, Start ing Thu11/30/20 at 2008, Until 12/01/20 at 1937, Low blood sugar, For BG 50-70 mg/dL: Oral treatment preferred:?? If able to drink, give 120 mL Juice or Reg ular (not diet) soda OR If NPO, give 15 gram glucose 40% oral gel massaged into buccal mucosa OR if unconscious or uncooperative, give 25 gram (250 mL) Dextrose 10% IV over 15 minutes per protocol OR, i f no IV access, 1 mg Glucagon IM. For BG less than 50 mg/dL: Oral treatment preferred:?? If able to drink, give 240 mL Juice or Regular (not diet) soda OR If NPO, give 30 gram glucose 40% oral gel ma ssaged in buccal mucosa OR if unconsciou s or uncooperative, give 25 gram (250 mL) Dextrose 10% IV over 15 minutes per protocol OR, if no IV access, 1 mg Glucagon IM. Recheck BG in 30 minutes. May repe at juice/soda, gel, dextrose or glucagon once per episode. For persistent hypoglycemia, consider longer-acting treatment for the duration of the active insulin. 1 tube contains 15 grams of glucose (net weight of tube = 37.5 grams., Routine HYDROmorphone (Dilaudid) (2 mg/mL) multi -dose injection solution 0.4-0.6 mg (CANCELED) 1618 (Given - Provider: Jeovanny Stacy RN)1627 (Given - Provider: Charlotte Stacy, RN)1639 (Given - Provider: Charlotte Stacy, RN)1859 (Given - Provider: Charlotte Stacy, RN) 0.4-0.6 mg, Intravenous, EVERY 5 MIN PRN , Starting Thu11/30/20 at 1611, Until Thu11/30/20 at 1925, Pain, Give 0.4 mg every 5 minutes PRN for mild to moderate pain (1-5) Give 0.6 mg every 5 minutes PRN f or moderate to severe pain (6-10). Hold for respiratory rate less than 10 per minute. Maximum dose 2 mg over one hour. If multiple pain medications are ordered, start with hydromorphone or morphine and use fentanyl for breakthrough pain., PACU Recovery, Routine lactulose (Chronulac) (0.67 gram/mL) oral liquid 10 g 10 g, Oral, DAILY PRN, Starting 11/30 at 2008, Until 12/01/20 at 193, Constipation, Administer if needed per patient's routine or if no bowel movement within 48 hours to achieve: (1) One bowel movement every 48 hours, AND (2) withou t straining. If multiple PRN bowel medications ordered, start with lactulose, then oral bisacodyl, then bisacodyl suppository. Multiple medications may be given concomitantly for constipation., Routine lidocaine (Xylocaine) 1% (10 mg/mL) injection 3 mg 3 mg (0.3 mL), Subcutaneous, ONCE PRN, 1 dose, Starting Thu11/30/20 at 2008, Until 12/01/20 at 193, for discomfort with PIV insertion, Routine methocarbamoL (Robaxin) tablet 750 mg 750 mg, Oral, 3 TIMES DAILY PRN, Startin g Thu11/30/20 at 1649, Until 12/01/20 at 193, Muscle spasms, Routine ondansetron (pf) (Zofran) (2 mg/mL) injection 4 mg 0020 (Given - Provider: Alden Clinton, MARCOS) 4 mg, Intravenous, EVERY 8 HOURS PRN, St arting Thu11/30/20 at 2008, Until 12/01/20 at 193, Nausea, If multiple antiemetics are ordered, use ondansetron first, prochlorperazine second, metoclopramide third. oxyCODONE (Roxicodone) tablet 10 mg(Linked Group 3) 1710 (Given - Provider: Charlotte Stacy RN)2046 (See Alternative - Provider: Alden Clinton, RN) 0349 (See Alternative - Provider: Alden Clinton, MARCOS)0952 (See Alternative - Provider: Halle Fried RN)1500 (See Alternative - Provider: Mallory Bowles LPN) 10 mg, Oral, EVERY 4 HOURS PRN, Starting Thu11/30/20 at 1649, Until 12/01/20 at 193, Pain, moderate pain (4-6), For moderate pain (4-6). Do not exceed 15 mg in 4 hours. If pain not relieved, call provider., Routine oxyCODONE (Roxicodone) tablet 15 mg(Linked Group 3) 1710 (See Alternative - Provider: Charlotte Stacy, MARCOS)2045 (Given - Provider: Alden Clinton, RN) 034 (Given - Provider: Alden Clinton RN)0952 (Given - Provider: Halle Fried RN)1500 (Given - Provider: Mallory Bowles LPN) 15 mg, Oral, EVERY 4 HOURS PRN, Starting 11/30/20 at 1649, Until 12/01/20 at 1937, Pain, severe pain (7-10), For severe pain (7-10). Do not exceed 15 mg in 4 hours. If pain not relieved, call provider., Routine oxyCODONE (Roxicodone) tablet 5 mg(Linked Group 3) 1709 (See Alternative - Provider: Charlotte Stacy RN)2045 (See Alternative - Provider: Alden Clinton RN) 348 (See Alternative - Provider: Alden Clinton RN)0952 (See Alternative - Provider: Halle Fried RN)1500 (See Alternative - Provider: Mallory Bowles LPN) 5 mg, Oral, EVERY 4 HOURS PRN, Starting 11/30/20 at 1649, Until 12/01/20 at 1937, Pain, mild pain (1-3), For mild pain (1-3). Do not exceed 15 mg in 4 hours. If pain not relieved, call provider, Routine sodium chloride 0.9 % (flush) flush 5-20 mL 5-20 mL, Intravenous, EVERY 1 MIN PRN, S tarting 11/30/20 at 2009, Until 12/01/20 at 193, flush, Flush pertains to all indwelling lines. Flush per protocol found in the job aid using the link provided on this medication record., Routine thrombin (Bovine) (THROMBINAR) kit (CANCELED) 1319 (Given - Provider: Rashard Hanley MD - Comment: Soaking patties and gelfoam on back table) ONCE PRN, Starting 11/30/20 at 1319, Until 12/01/20 at 1937, Intra- Operative (Intra-Procedure) Linked Groups Order Group 1: POCT Fingerstick Glucose (CANCELED) Routine, EVERY 4 HOURS, First occurrence on 12/01/20 at 0720, Until Specified
Consider choosing EVERY 4 HOURS as frequency for: - Type 1 Diabetes - At least 24 hours after coming off an insu laurel drip - At least 24 hours after admis wanda for DKA - Hypoglycemia unawareness - Patients who are otherwise unstable Select the same frequency for the correction bolus insulin order And insulin lispro (HumaLOG) (100 unit/mL) subcutaneous injection vial 1-6 UnitsJump to med 1-6 Units, Subcutaneous, EVERY 4 HOURS S CHEDULED, First dose on 12/01/20 at 0815, Until Discontinued
CORRECTION BOLUS [1-6 Units] Moderate Sliding Scale: Correction factor 20 (1 unit of insulin is expected to drop the glucose 20 mg/dL) BG 140 - 160 Give 1 unit BG 161 - 180 Give 2 units BG 181 - 200 Give 3 units BG 201 - 220 Giv e 4 units BG 221 - 240 Give 5 unit s BG greater than 240, give 6 units and recheck BG in 2 hours. - If recheck BG is LESS than 240, give no insulin and resume schedule. &amp ;nbsp;- If recheck BG is GREATER than 24 0, give 6 units and repeat BG in 2 hours (no more than 3 times) & call for new insulin orders. DO NOT hold if NPO, unless specifically told to do so. P er Blood Glucose Monitoring Policy, re- check a BG of > 240 in 2 hours.
Routine Group 2: glucose (GLUTOSE) 40% oral geLJump to med 15-30 g, Buccal, EVERY 30 MIN PRN, Start ing Thu11/30/20 at 2008, Until 12/01/20 at 1937, Low blood sugar
For BG 50-70 mg/dL: Oral treatment preferred:?? If able to drink, give 120 mL Juic e or Regular (not diet) soda OR If NPO, give 15 gram glucose 40% oral gel massaged into buccal mucosa OR if unconscious or uncooperative, give 25 gram (250 mL) Dextrose 10% IV over 15 minutes per protoc ol OR, if no IV access, 1 mg Glucagon IM . For BG less than 50 mg/dL: Oral treatment preferred:?? If able to drink, give 240 mL Juice or Regular (not diet) soda OR If NPO, give 30 gram gluco se 40% oral gel massaged in buccal mucos a OR if unconscious or uncooperative, give 25 gram (250 mL) Dextrose 10% IV over 15 minutes per protocol OR, if no IV access, 1 mg Glucagon IM. Recheck BG in 30 minutes. May repeat juice/soda , gel, dextrose or glucagon once per episode. For persistent hypoglycemia, consider longer-acting treatment for the duration of the active insulin. 1 tube contains 15 grams o f glucose (net weight of tube = 37.5 grams.
Routine Or dextrose 10% infusionJump to med 250 mL, at 1,000 mL/hr, Intravenous, CRISS RY 30 MIN PRN, Starting Thu11/30/20 at 2008, Until 12/01/20 at 1937
For BG 50-70 mg/dL: Oral treatment preferred:?? If able to drink, give 120 mL J uice or Regular (not diet) soda OR If WET PROCESS OPERATOR O, give 15 gram glucose 40% oral gel massaged into buccal mucosa OR if unconscious or uncooperative, give 25 gram (250 mL) Dextrose 10% IV over 15 minutes per pro tocol OR, if no IV access, 1 mg Glucagon IM. For BG less than 50 mg/dL: Oral treatment preferred:?? If able to drink, give 240 mL Juice or Regular (not diet) soda OR If NPO, give 30 gram gl ucose 40% oral gel massaged in buccal mu cosa OR if unconscious or uncooperative, give 25 gram (250 mL) Dextrose 10% IV over 15 minutes per protocol OR, if no IV access, 1 mg Glucagon IM. Rech natty BG in 30 minutes. May repeat juice/s mariza, gel, dextrose or glucagon once per episode. For persistent hypoglycemia, consider longer-acting treatment for the duration of the active insulin.
Or glucagon (Glucagen) (1 mg/mL) injection solution 1 mgJump to med 1 mg, Intramuscular, EVERY 30 MIN PRN, S tarting Thu11/30/20 at 2009, Until 12/01/20 at 1937, Low blood sugar
For BG 50-70 mg/dL: Oral treatment preferred:?? If able to drink, give 120 mL Juice or Regular (not diet) soda OR If N PO, give 15 gram glucose 40% oral gel massaged into buccal mucosa OR if unconscious or uncooperative, give 25 gram (250 mL) Dextrose 10% IV over 15 minutes per pr otocol OR, if no IV access, 1 mg Glucago n IM. For BG less than 50 mg/dL: Oral treatment preferred:?? If able to drink, give 240 mL Juice or Regular (not diet) soda OR If NPO, give 30 gram g lucose 40% oral gel massaged in buccal m ucosa OR if unconscious or uncooperative, give 25 gram (250 mL) Dextrose 10% IV over 15 minutes per protocol OR, if no IV access, 1 mg Glucagon IM. Rec heck BG in 30 minutes. May repeat juice/ soda, gel, dextrose or glucagon once per episode. For persistent hypoglycemia, consider longer-acting treatment for the duration of the active insulin.
Routine Group 3: oxyCODONE (Roxicodone) tablet 5 mgJump to med 5 mg, Oral, EVERY 4 HOURS PRN, Starting Thu11/30/20 at 1649, Until 12/01/20 at 1937, Pain, mild pain (1-3)
For mild pain (1-3). Do not exceed 15 mg in 4 hours. If pain not relieved, call provider
Routine Or oxyCODONE (Roxicodone) tablet 10 mgJump to med 10 mg, Oral, EVERY 4 HOURS PRN, Starting Thu11/30/20 at 1649, Until 12/01/20 at 1937, Pain, moderate pain (4-6)
For moderate pain (4-6). Do not exceed 15 mg in 4 hours. If pain not relieved, call provider.
Routine Or oxyCODONE (Roxicodone) tablet 15 mgJump to med 15 mg, Oral, EVERY 4 HOURS PRN, Starting 11/30/20 at 1649, Until 12/01/20 at 1937, Pain, severe pain (7-10)
For severe pain (7-10). Do not exceed 15 mg in 4 hours. If pain not relieved, call provider.
Routine documented in this encounter Care Teams Fire Investigator Relationship Specialty Start Date End Date Tom Hay MD PCP - General General Internal Medicine 09/15/18 [facility] [place] [address] documented as of this encounter
--- OUTSIDE RECORDS SUMMARY | 2022-07-12 00:46 | XMS_ITS | Encounter Summary ---
:1965 Author Organization [facility] [place] [address] Care Team Providers Name Role Phone Tom Hay MD Primary Care Provider Reason for Visit Reason Onset Date Comments Medication Refill 12/07/2020 Encounter Details Date Type Department Care Team Description 12/07/2020 Refill Pain and Spine Marin jacobsen at [facility] [place] Ladarius Dahl, [place] [facility] [address] Social History Tobacco Use Types Packs/Day [...] this encounter Miscellaneous Notes Telephone Encounter - Ladarius Dahl RN - 12/07/2020 4:44 PM EST Images from the original note were not included. Telephone Encounter - Ladarius Dahl RN - 12/07/2020 4:26 PM EST Received call from patient requesting refill of Oxycodone 5 mg tabs, she has 6 tabs on hand and willbe out tomorrow. She is taking 1 tab Q 4 hours as needed for pain. Patient is s/p 11/30/2020 C6 corpectomy, C5-7 ACCF. She also reports that she is awaiting a visit from the VNA night nurse chuck, shecontacted them due to concern that she has a UTI, she has had a vaginal yeast infection but has now noted painful urination. She states that has history of chronic yeast infection, she is diabetic, andwill contact her METAL FABRICATING SUPERVISOR provider for treatment of that. She is also reporting a creamy thick sticky yellow drainge is coming from her wound. Her original dressing is off and steri strips are still in place. Received forwarded photo from patient, there is some dried blood on steri strips in area that is actively draining. She does not have any gauze or bandage to cover wound, expects VNA nurse will. She is aware that she should keep wound covered and dry if draining and she should not shower without occlusive covering . She denies fever but does not have thermometer to check her temp, she will ask VNA nurse to check her today. Acute Opioid Prescribing: Opioid PDMP 12/07/2020 11/06/2020 [place] PDMP Query Date 12/07/2020 12/01/2020 Comment 1 post op oxycodone prescription as expected. Monthly RX for xanax [place] PDMP Query Date - 12/01/2020 [place] PDMP Query Date - 12/01/2020 Refill request was discussed with Dr. Augustine in Dr. Hanley's absence. He authorized refill of Oxycodone 5 mg 1 tabs Q 4-6 hours as needed for pain, #42. A follow up call was placed to patient to inform her that refill was completed, reviewed dose and frequency. Patient is still awaiting VNA nurse. She is aware that if VNA nurse has concerns they may reach out to rehabilitation services aide provider. If VNA nurse does not arrive, she will be seen in her local ED regardingher urinary symptoms and wound drainage. Dr. Hanley updated regarding the above and in agreement. documented in this encounter Plan of Treatment Upcoming Encounters Date Type Specialty Care Team Description 08/06/2022 Office Visit Plastic Surgery Peña Woodward MD [facility] PLASTIC SURGERY [place], [place] [address] (Flores ordonez) 08/19/2022 Office Visit Podiatry Tom Titus DPM [facility] [address]IVE [place], [place] [address] (Flores ordonez) 09/08/2022 Office Visit Internal Medicine Janay Hay MD [facility] GENERAL INTERNAL MEDICINE [place], [place] [address] (Flores ordonez) 10/12/2059 Hospital Encounter Surgery Jim Hanley MD [facility] DR SPINE CENTER [place], [place] [address] (Wo rk) Scheduled Procedures [...] on filedocumented in this encounter Care Teams Trademark Affixer Relationship Specialty Start Date End Date Tmo Hay MD PCP - General General Internal Medicine 09/15/18 [facility] GENERAL [place] [address] documented as of this encounter
--- OUTSIDE RECORDS SUMMARY | 2022-07-12 00:46 | XMS_ITS | Encounter Summary ---
:1965 Author Organization [facility] [place] [address] Care Team Providers Name Role Phone Tom Hay MD Primary Care Provider Encounter Details Date Type Department Care Team Description 12/21/2020 Refill Pain and Spine Marin jacobsen at [facility] [place] Nenita Hawkins LPN [facility] [place] [address] Social History Tobacco Use Types Packs/Day [...] Telephone Encounter - Nenita Hawkins LPN - 12/21/2020 11:35 AM EST Joseline called for a refill of Oxycodone 5 mg, she has enough to get through Thursday. She takes 1 tab every 5-6 hours. She is s/p 11-30-2020 C6 corpectomy, C5-7 ACCF Advised Joseline that this would be her wean script, an there would not be any further scripts, she agreed to use this last script for weaning purposes. Reduced to 1 tab Q8 hours PRN pain. Will route to Dr. Hanley for authorization and signature to Vickie in [facility] documented in this encounter Plan of Treatment Upcoming Encounters Date Type Specialty Care Team Description 08/06/2022 Office Visit Plastic Surgery Peña Woodward MD [facility] PLASTIC SURGERY [place], [place] [address] (Wo rk) 08/19/2022 Office Visit Podiatry Tom Titus DPM [place], [place] [address] (Wo rk) 09/08/2022 Office Visit Internal Medicine Janay Hay MD [facility] GENERAL INTERNAL MEDICINE [place], [place] [address] (Wo rk) 10/12/2059 Hospital Encounter Surgery Jim Hanley MD [facility] SPINE CENTER [place], [place] [address] (Wo rk) Scheduled Procedures Name [...] on filedocumented in this encounter Care Teams Compressed Gas Plant Worker Relationship Specialty Start Date End Date Tom Hay MD PCP - General General Internal Medicine 09/15/[address] [facility] GENERAL [place] [address] documented as of this encounter
--- OUTSIDE RECORDS SUMMARY | 2022-07-12 00:46 | XMS_ITS | Encounter Summary ---
:1965 Author Organization [facility] [place] [address] Care Team Providers Name Role Phone Tom Hay MD Primary Care Provider Encounter Details Date Type Department Care Team Description 12/12/2020 Refill Pain and Spine Center Juliet Minaya R N H/O cervical spinal at [facility] [place] [address] Social History Tobacco Use Types Packs/Day [...] Office Visit Plastic Surgery Peña Woodward MD [facility] PLASTIC SURGERY [place], [place] [address] (Wo rk) 08/19/2022 Office Visit Podiatry Tom Titus DPM [place] [id number] (Wo rk) 09/08/2022 Office Visit Internal Medicine Janay Hay MD [facility] GENERAL INTERNAL MEDICINE [place] [id number] (Wo rk) 10/12/2059 Hospital Encounter Surgery Jim Hanley MD [facility] SPINE CENTER [place], [place] [address] (Wo rk) Scheduled Procedures Name [...] status documented in this encounter Care Teams Instructor Bridge Relationship Specialty Start Date End Date Tom Hay MD PCP - General Internal Medicine 09/15/18 [facility] [place] [address] documented as of this encounter
--- OUTSIDE RECORDS SUMMARY | 2022-07-12 00:46 | XMS_ITS | Encounter Summary ---
:1965 Author Organization [facility] [place] [address] Care Team Providers Name Role Phone Tom Hay MD Primary Care Provider Reason for Visit Reason Onset Date Comments Follow-up 12/11/2020 Wound Dehiscence 12/11/2020 Encounter Details Date Type Department Care Team Description 12/11/2020 Telephone Pain and Spine Center Lexie Julianw-up ; Wound at [facility] M, [place] [address] Social History Tobacco Use Types Packs/Day [...] Telephone Encounter - Lexie Julian RN - 12/11/2020 3:24 PM EST Images from the original note were not included. Received call from pt who is s/p C6 corpectomy, C5-7 ACCF on 11/30/20 Dr. Hanley. Pt discharged home12/01/20; pt has pendng [facility] 12/19. Pt calling today in t call Thursday12/07/19. Pt reports she went to [facility] Thursday evening as directedfor wound check and UTI. Pt reports they assessed the incision; covered it with sterile drsg and started her on oral abx for a UTI. Pt states the UTI sxs have not improved and she is almost done with the abx. Pt states he cervical incision has been covered since going to the ED; that she was unaware of any changed until after she showered this am ~ 4am. Pt states the surgical drsg got wet in the shower and the incisional area started bleeding. Pt called the nursing office this afternoon with VNA nurse present. VNA nurse reports having cleansed the area with sterile water, redressed t with a sterile Drsg. Dania, the VNA nurse notes the incicion has dehisced; describes the opening as 1/2 cm X 1/4 cm under loose sarbjit crossed steri strips. Denies presence of any drainage; ragged dry edges, pink tissue, area surrounding the opening is tender and firm. VNA nurse has replaced the collar over the dry drsg and instructed pt to keep the incision/drsg dry and intact. Given the reported change in the incision; requested pt /VNA nurse send n a photo of the incision and the drsg materia that was removed. Pt does have photos; she reports the drsg material from earlier in the day with drainage has been discarded and nt available to take a photo of. Requested pt come into clinic tomorrow for a wound assessment; appt scheduled for noon. Pt instructed if the neck ncision starts draining or opens further, not to wait until tomorrow; to estuardo Resident anhydrous ammonia production supervisor (# provided) for review/direction, anticipating need for an earlier eval through the ED. Instructed pt to call Dr Reese, her PCP to report her ongoing/worsening UTI symptoms despite 4+ days of oral abx; explained that it was important that Dr Hanley be advised of an active infection given her recent surgery but that we would defer medical mgmt of her UTI to her primary care provider. Pt agreed to call Her PCP this afternoon to advise him of her sxs and the UTI treatment that was initiated at [facility] Thursday olvin. Informed pt that I would inform Dr Hanley of the planned appt tomorrow. 12/12/[address] Hanley; requested construction scheduler call pt to request she get her cervicalXray today in advance of the apt. We will determine the indication for the 12/19 appt when she is here today, and adjust as indicated. documented in this encounter Plan of Treatment Upcoming Encounters Date Type Specialty Care Team Description 08/06/2022 Office Visit Plastic Surgery Peña Woodward MD [facility] PLASTIC SURGERY [place], [place] [address] (Wo josé luis) 08/19/2022 Office Visit Podiatry Tom Titus DPM [place], [place] [address] (Flores ordonez) 09/08/2022 Office Visit Internal Medicine Janay Hay MD [facility] GENERAL INTERNAL MEDICINE [place], [place] [address] (Wo rk) 10/12/2059 Hospital Encounter Surgery Jim Hanley MD [facility] SPINE CENTER [place], [place] [address] (Wo rk) Scheduled Procedures Name [...] in this encounter Care Teams Director Of Instrumental Music Relationship Specialty Start Date End Date Tom Hay MD PCP - General General Internal Medicine 09/15/18 [facility] [place] [address] documented as of this encounter
--- OUTSIDE RECORDS SUMMARY | 2022-07-12 00:46 | XMS_ITS | Encounter Summary ---
:1965 Author Organization [facility] [place] [address] Care Team Providers Name Role Phone Tom [...] Expiration Date Visits Requ ested Visits Authorized [id number] 1 1 Encounter Details Date Type Department Care Team Description 11/30/2020 - Hospital Encounter 3 Rashard Storeyica l spondylosis with myelopathy; 12/01/2020 Cierra Styles MD DDD (degenerative disc disease), cervica l; [facility] Cervical spondylosis with my elopathy; [facility] S/P C6 corpectomy, C5-7 ACCF 11/30/20 Dr. Talon Johnson [facility] [place], [place] [id number] [phone] Social History Tobacco Use Types Packs/Day Years [...] Sign Reading Time Taken Comments Blood Pressure 129/77 12/01/2020 3:00 PM EST Pulse 80 12/01/2020 3:42 AM EST Temperature 36.8 ??C (98.2 ??F) 12/01/2020 3:00 PM EST Respiratory Rate 16 12/01/2020 3:00 PM EST Oxygen Saturation 96% 12/01/2020 3:00 PM EST Inhaled Oxygen Concentration - - Weight 90.7 kg (200 lb) 11/30/2020 10:15 AM EST Height 165.1 cm (5' 5) 11/30/2020 10:15 AM EST Body Mass Index 33.28 11/30/2020 10:15 AM EST documented in this encounter Discharge Summaries Ene Villegas APRN - 12/01/2020 3:48 PM EST Images from the original note were not included. Discharge Summary Patient Name: Joseline Rose Patient Age: 55 y.o. Language: Pashto Race: White Ethnicity: Not nor Admit date: 11/30/2020 Discharge date and time: 12/01/2020 Attending Physician: Rashard Hanley MD Discharge Physician: Rashard Hanley MD Follow-up Recommendations for Providers: See discharge instructions for additional details. Future Appointments Date Time Provider Department Center 12/04/2020 3:00 PM Eddi Hernandez DPM MH Pod [facility] 12/19/2020 10:30 AM [facility] DX ROOM 1 MH Xray [facility] Rad 12/19/2020 11:20 AM Rashard Hanley MD [facility] Pain Sp [facility] 01/30/2021 3:40 PM Tom Hay MD [facility] GIM [facility] Inpatient Provider Contact Information: Rashard Hanley MD Spine Center: [phone] After hours and weekends, call [facility] Cement Truck Loader, , and have the Orthopedic resident paged. [...] 6. Spinal cord monitoring 7. Application removal Khan-Joaquim tongs History of Presentation: Joseline Rose is a [...] The patient was instructed to wear a [place] J at all times. These parameters were [...] Weight: Wt Readings from Last 1 Encounters: 02/19/ 90.7 kg (200 lb) Height: Ht Readings from Last 1 Encounters: 02/19/21 165.1 cm (5' 5) HC: HC Readings [...] 3 wbc, hgb, hct plt Recent Labs / 0456 11/22/20 1415 07/04/20 1619 WBC 17.2* [...] this report, please contact the number below. Electronically signed by: Moises Head MD, [facility] ([phone]), at 11/30/2020 4:48 PM XR Cervical Spine 1 View Result Date: [...] this report, please contact the number below. Electronically signed by: Heladio Dukes MD, [facility] ([phone]), at 11/30/2020 3:50 PM XR Cervical Spine 1 View Result Date: 11/30/2020 EXAMINATION: XR CERVICAL SPINE 1 VIEW CLINICAL HISTORY: Cervical myeloradiculopathy progressive TECHNIQUE: Cross table lateral view of the cervical spine, portable in OR at 1340 COMPARISON: RadiographsDecember 2019 and November 30, 2020; CT September 18, [...] this report, please contact the number below. Electronically signed by: Mattie Laughlin MD, [facility] ([phone]), at 11/30/2020 2:06 PM XR Cervical Spine 1 View Result Date: [...] this report, please contact the number below. Electronically signed by: Heladio Dukes MD, [facility] ([phone]), at 11/30/2020 1:55 PM XR Cervical Spine 1 View Result Date: [...] this report, please contact the number below. Electronically signed by: Mattie Laughlin MD, [facility] ([phone]), at 11/30/2020 1:00 PM XR Cervical Spine 2 or 3 Views Result [...] this report, please contact the number below. Electronically signed by: Camilo Viveros MD, [facility] ([phone]), at 11/30/2020 7:56 PM Pending Studies and Lab Data at Discharge: * No orders in the log * Transfusions: No Discharge Conditions/Prognosis: Stable, awake, and alert. Mobilizing as noted above, pain controlledon oral medications. Discharge to: Home with VNA for home PT HOME HEALTH CARE AGENCY: [facility]. PHONE: [phone] FAX: [phone] Updated Allergies/ADRs: Allergies Allergen Reactions ??? Metformin [...] Commonly known as: FREESTYLE 1 each by [facility]Non-Drug; Combo [...] gauge x 1/5 Ndle 1 each by [facility]Non-Drug; Combo [...] Quantity: 20 tablet Refills: 0 vitamin with aknxqlqf-Ap-Uhux-FA Tab Take 1 tablet by mouth daily. 1 tablet Refills: 0 semaglutide 1 mg/dose (2 mg/1.5 mL) Pnij Inject 1 mg subcutaneously once a week. 1 mg Quantity: 12 Syringe Refills: 3 Trelegy Ellipta 100-62.5-25 mcg Dsdv Inhale 1 Inhalation into the lungs daily. Generic drug: ecykjnqmlfw-odryxyqvq-oozpyqqg 1 Inhalation Quantity: 60 each Refills: 3 [...] them. 3. You should also take an clil-qty-mhvubra stool softener or laxative, such as Stephanie-colace [...] your pain medication, please contact the [facility] Nursing staff at [phone]. Nursing staff will need to talk with you directly prior to refilling any postoperative medications. PRESCRIPTION RENEWAL REQUESTS CAN TAKE UP TO 2 BUSINESS DAYS TO PROCESS SO PLEASE PLAN ACCORDINGLY. Most pharmacies can now accept electronic narcotic pain medications prescriptions, but some do not. [place] J Collar Instructions: 1. You are being [...] pressing against the skin, please call the [facility] Nursing Line at the number below. [...] has completely healed. PLEASE CALL US AT [phone] TO SPEAK WITH A SPINE CENTER NURSE [...] Numbers: Clinical issues, nurse questions, medication renewals: [phone] Hanley: [phone] Evenings after 5pm and weekends you may contact the Orthopaedic resident director of vocational guidance: [phone], ask the extractor plant operator to page the Orthopaedic resident Follow Up Appointments: 1. You will have follow-up appointments at [facility] as indicated in the ???Future Appointments and [...] on the next business day. Please call [phone] if you do not hear from us by that time, as your timely follow-up is very important to us. Future Appointments Date Time Provider Department Center 12/04/2020 3:00 PM Eddi Hernandez DPM MH Pod [facility] 12/19/2020 10:30 AM [facility] DX ROOM 1 MH Xray [facility] Rad 12/19/2020 11:20 AM Rashard Hanley MD [facility] Pain Sp [facility] 01/30/2021 3:40 PM Tom Hay MD [facility] GIM [facility] General Instructions None Future Appointments and Orders Future Appointments and Orders Future Appointments Provider Department Dept Phone 12/04/2020 3:00 PM Eddi Hernandez DPM Podiatry at [facility] Arrive at: [facility]M [phone] 12/19/2020 10:30 AM [facility] DX ROOM 1 XRay at [facility] Arrive at: [facility]T [phone] Please go to [facility] ([place] Location). 12/19/2020 11:20 AM Rashard Hanley MD Pain and Spine Center at [facility] Arrive at: [facility]D [phone] 01/30/2021 3:40 PM Tom Hay MD Internal Medicine at [facility] Arrive at: [facility] [phone] Future Orders Complete By Expires Referral to Home Health - at DISCHARGE [RXY7697 CPT(R)] As directed Process Instructions: Scheduling Instructions: Comments: DOCUMENTATION FOR VNA SERVICES (INCLUDING THOSE PATIENTS WITH MEDICARE COVERAGE REQUIRING HOME VNA SERVICES AND/OR HOSPICE SERVICES) PATIENT'S Discharge LOCATION: [address], [address] [place], [place] Land Resource Specialist's Name: self In discussion with the attending physician, it is certified that this patient is under their care and that they, or a Nurse Practitioner,Clinical Nurse specialist or Physician Intervention Analyst who is working directly with them, had [...] managing ADL's Supervision of Home Health Aide (TACK PULLER) in assisting patient with ADLs HHHA: assist patient with ADLs as directed by OTR/L's Plan of long-term HEALTH CARE AGENCY: [facility]. PHONE: [phone] FAX: [phone] Start of care: 24-48 hours post-hospital discharge [...] [facility] / RAF N* [phone] All VNA agencies which cover the area of patient's residence have been reviewed, either verbally or in writing, and patient/family have chosen the home health care agency noted Questions: Agency name and contact information: [facility], [place], [place] Patient location post discharge: [address], [place], [place] What services are requested: Registered Nurse Physical Therapy Occupational Therapy Home Health Aide Start date: Responsible MD post discharge contact info: PCP MD Tom Fragoso rolling [EQ134 Custom] As directed Process Instructions: Scheduling Instructions: Comments: Joseline Mccain [place] [address] [place] [address] (D/C address (temporary): [address] [place], [place]) Telephone Information: Diagnosis:C6 Corpectomy, C5-7 ACDF with Unsteady gait Significant weakness, ataxia or gait abnormality Patient's: Hgt: 5'5 Wgt: 195 lbs VENDOR: [facility] Loc[facility] @ [place], [place] Ordering: Front wheel walker Deliver to 's hospital room #: 326A Questions: Vendor Name/Contact information: [facility] Primary Care Provider: Tom Hay MD [phone] Discharge References/Attachments None documented in this encounter Discharge Instructions Patient InstructionsDaEne xiong APRN - 11/30/2020 5:17 PM EST Orthopaedic Spine [...] them. 3. You should also take an cjex-sqh-brooega stool softener or laxative, such as Stephanie-colace [...] contact the Spine Center Nursing staff at [phone]. Nursing staff will need to talk with you directly prior to refilling any postoperative medications. PRESCRIPTION RENEWAL REQUESTS CAN TAKE UP TO 2 BUSINESS DAYS TO PROCESS SO PLEASE PLAN ACCORDINGLY. Most pharmacies can now accept electronic narcotic pain medications prescriptions, but some do not. [place] J Collar Instructions: 1. You are being [...] against the skin, please call the [facility] Nursing Line at the number below. 5. [...] surgical dressing is removed, please call the [facility] at the number below. 3. After [...] has completely healed. PLEASE CALL US AT [phone] TO SPEAK WITH A SPINE CENTER NURSE [...] Numbers: Clinical issues, nurse questions, medication renewals: [phone] Hanley: [phone] Evenings after 5pm and weekends you may contact the Orthopaedic resident director of vocational guidance: [phone], ask the extractor plant operator to page the Orthopaedic resident Follow Up Appointments: 1. You will have follow-up appointments at [facility] as indicated in the ???Future Appointments and [...] on the next business day. Please call [phone] if you do not hear from us by that time, as your timely follow-up is very important to us. Future Appointments Date Time Provider Department Center 12/04/2020 3:00 PM Eddi Hernandez DPM Pod [facility] 12/19/2020 10:30 AM [facility] DX ROOM 1 Xray [facility] Rad 12/19/2020 11:20 AM Rashard Hanley MD [facility] Pain Sp [facility] 01/30/2021 3:40 PM Tom Hay MD [facility] documented in this encounter Medications at Time [...] Lite)DX code E11.9 complication, unspecified IDD whether nursing home insulin use Vitamin D 25 mcg (1,000 [...] 2 sprays by Nasal 0 27.5 mcg/actuation [place], route daily. SuspensionIndications: Indications: allergic rhinitis Allergic [...] mouth 2 times daily. 2 Oral lesion rpdwkljrwor-veonyttqt-mys Inhale 1 Inhalation 60 each 3 0 10/26/2020 anter (Trelegy Ellipta) into the lungs 2 100-62.5-25 mcg Disk with daily. Device Crystal Pen Needle 32 gauge Inject 1 each 400 each 3 10/26/19 21 x 5/32 Needle subcutaneously 4 2 times daily. pen needle, diabetic 1 each by 100 each 5 10/26/202002/09 (NovoTwist) 32 gauge x Misc.(Non-Drug; 2 1/ Needle Combo Route) route 4 times daily [...] by 1 each 0 10/26/202002/26 (FREESTYLE) Kit [facility]Non-Drug; 2 [...] vitamin with Take 1 tablet by 0 ngrrnnlk-Ou-Podq-FA mouth daily. 2 Tablet metroNIDAZOLE Apply topically 2 45 g 5 10/29/2018 05/ (METROCREAM) 0.75 % Cream times daily. 2 ALPRAZolam (XANAX) 1 mg Take 1 mg by mouth 3 0 tablet times daily as 2 needed. ARIPiprazole (Abilify) 30 Take 30 mg by mouth 0 mg Tablet daily. 2 documented as of this encounter Progress Notes Halle Fried RN - 12/01/2020 5:36 PM EST Patient discharge to home with VNA. vulnerability assessment analyst remains unchanged from previous assessment documentation. Patient [...] DC summary sent to VNA service. Barbra Puente RN - 12/01/2020 4:06 PM ESTSummary: [facility] OCM Care Management: D/C note Case Management Discharge Plan DISCHARGE PLANNING Anticipated Discharge Disposition: patient will discharge to temporary housing location in [place], [place]. Expected DC Date: 12/01/2020 Via private vehicle Steps Taken Toward Discharge: VNA and DME referral [facility]. PHONE: [phone] FAX: [phone] [facility] Center [place], [place] FWW delivered to patient's room 326A by this note-financial underwriter. Barbra Orosco, MSN, BSN, RN ACM-RN [facility] signs cleaner Ene Turner APRN - 12/01/2020 3:24 PM [...] Barbra Puente RN - 12/01/2020 12:57 PM [facility] Care Management: VNA and DME choice The patient has been provided a list of Home Health Agencies/DME vendors which serve their preferredgeographic area. A letter describing our affiliations was reviewed with them and they were educated about their right to choose where referrals are placed. Discussed and offered patient CMS Star Quality Rating for Home care hand out but there is only one VNA who will be covering her preferred geographic locations Patient requests referral to [facility] PHONE: [phone] FAX: [phone]. Patient requests DME referral to: [facility] Center [place], [place] Expected date of discharge: 12/01/2020 Transportation: private vehicle COVID19 not detected 11/27/2020 (resulted 10:58 hours/[facility] lab) Referral routed to the Chief Radiology for matching with agency/vendor and to provide any required information. Barbra Orosco RN signs cleaner Pager: [phone] Rogelio Carrie A, OT - 12/01/2020 12:57 PM EST Occupational [...] (WRVU 11.94) performed by Rashard Hanley MDat [facility] MAIN OR ??? PRO APPLY/REMOVE CRANIAL FIX DEV Bilateral 11/30/2020 PLACEMENT-CRANIAL TONGS (INCLUDING REMOVAL) (WRVU 4) performed by Rashard Hanley MD at [facility] SARAH ??? PRO CERV SPINE FUSN, ANTER, BELOW C2 Bilateral 11/30/2020 ANT. CX. FUSION INCLUD. MIN. DISCECTOMY; BELOW C2 (WRVU 17.69) performed by Rashard Hanley MD [facility] MAIN OR ??? PRO INSERT BIOMCHN DEV VRT CORPECTOMY DEFECT W/ARTHRD Bilateral 11/30/2020 INSERTION INTERVERTEBRAL BIOMECH DEV TO VERTEBRAL CORPECTOMY DEFECT, EA CONTIGUOUS DEFECT (WRVU 5.5) performed by Rashard Hanley MD at [facility] MAIN OR ??? PRO LAP, CHOLECYSTECTOMY N/A 07/27/2015 LAPAROSCOPIC CHOLECYSTECTOMY performed by Fabricio Grant MD at [facility] MAIN OR ??? PRO REMV VERT BODY, CERV, ONE SGMT Bilateral 11/30/2020 @ANTERIOR CX CORPECTOMY, ONE LVL (WRVU 26.1) performed by Rashard Hanley MD at [facility] MAIN OR ??? PRO SPINAL FUSION, ANT, EA ADNL LEVEL Bilateral 11/30/2020 ANT. FUSION, INCLUDE. MIN. DISCECTOMY; EA. ADD'L LVL (WRVU 5.52) performed by Rashard Hanley MD at [facility] MAIN OR Social History: Home set [...] and measurable assessment of functional outcome. Pager: [phone] Carrie Mercado OTR/L Occupational Therapy Rehabilitation Department Cindy Madrigal PT - 12/01/2020 10:23 AM EST Physical Therapy Evaluation Patient profile: Joseline Mccain Rose??is a 55 y.o.??female??1 Day Post-Op??C6 corpectomy and [...] (WRVU 11.94) performed by [facility] MDat [facility] MAIN OR ??? PRO APPLY/REMOVE CRANIAL FIX DEV Bilateral 11/30/2020 PLACEMENT-CRANIAL TONGS (INCLUDING REMOVAL) (WRVU 4) performed by Rashard Hanley MD at [facility] SARAH ??? PRO CERV SPINE FUSN, ANTER, BELOW C2 Bilateral 11/30/2020 ANT. CX. FUSION INCLUD. MIN. DISCECTOMY; BELOW C2 (WRVU 17.69) performed by Rashard Hanley MD [facility] MAIN OR ??? PRO INSERT BIOMCHN DEV VRT CORPECTOMY DEFECT W/ARTHRD Bilateral 11/30/2020 INSERTION INTERVERTEBRAL BIOMECH DEV TO VERTEBRAL CORPECTOMY DEFECT, EA CONTIGUOUS DEFECT (WRVU 5.5) performed by Rashard Hanley MD at [facility] MAIN OR ??? PRO LAP, CHOLECYSTECTOMY N/A 07/27/2015 LAPAROSCOPIC CHOLECYSTECTOMY performed by Fabricio Grant MD at [facility] MAIN OR ??? PRO REMV VERT BODY, CERV, ONE SGMT Bilateral 11/30/2020 @ANTERIOR CX CORPECTOMY, ONE LVL (WRVU 26.1) performed by Rashard Hanley MD at [facility] MAIN OR ??? PRO SPINAL FUSION, ANT, EA ADNL LEVEL Bilateral 11/30/2020 ANT. FUSION, INCLUDE. MIN. DISCECTOMY; EA. ADD'L LVL (WRVU 5.52) performed by Rashard Hanley MD at [facility] MAIN OR Social History: Home set-up: Pt lives alone in a 2nd floor apartment. Stairs: 6 + 15 YAN with L rail Baseline Mobility: Pt was fully independent with ADLs, IADLs, and mobility MEDICARE BILLER. She volunteers with the [employer]. She ambulates without a device. Equipment at home: none Fall history: reports hx of 2 falls, most recent was last year Precautions/Special Considerations: at risk to fall, Spine precautions- No bending, lifting >10#,twisting. C-Collar at all times Lines: OLGA drain, masimo, PIV Diet: carb control Mobility and Positioning [...] in this evaluation. Time IN / OUT: 3557-3974 Total Minutes, Physical Therapy: 20(low complexity eval ) Cindy Madrigal, PT Pager: [phone] Physical Therapy Inpatient Rehabilitation Department Ilir Coughlin [...] 3:00 PM Eddi Hernandez DPM MH Pod [facility] 12/19/2020 10:30 AM [facility] DX ROOM 1 Xray [facility] Rad 12/19/2020 11:20 AM Rashard Hanley MD [facility] Pain Sp [facility] 01/30/2021 3:40 PM Tom Hay MD [facility] GIM [facility] Associated attestation - Rashard Hanley MD - 12/02/2020 7:15 AM EST Patient doing well. No sig swallowing issues. No sig change in neuro exam. Xrays 11/30/2020 look good. Rashard Hanley MD [facility] Plant Supervisor - Orthopedic Spine Surgery Sales Operations Assistant - Department of Orthopedic Surgery / Academics and Research Timber Sizer - [facility] [employer] Edith Irizarry MD - [...] (125-166)/(75-100) Intake/Output Summary (Last 24 hours) at 11/30/2020 2158 Last data filed at 11/30/2020 1800 Gross [...] 12/04/2020 3:00 PM Eddi Hernandez DPM Pod [facility] 12/19/2020 10:30 AM [facility] DX ROOM 1 Xray [facility] Rad 12/19/2020 11:20 AM Rashard Hanley MD [facility] Pain Sp [facility] 01/30/2021 3:40 PM Tom Hay MD [facility] Ida Rubio - 11/30/2020 11:29 AM EST Scar Encounter Note Patient Name: Joseline Rose : [id number] MR#: [id number] Admit Date: 11/30/2020 9:20 AM Hospital Day 0 days Narrative: Consult request from nurse as patient undergoing surgery. Assessment: Visited with patient who is feeling a great deal of anxiety pre-surgery. She has expressed that she has had two surgeries in the past that did not go well. The patient felt very scared and would like to repent. We discussed that the cemetery laborer would be in at 4:30pm to visit [...] would be helpful. Follow-up: Follow up with Lutheran repentence and spiritual support. Time in Direct [...] All questions were answered. Rashard Hanley MD [facility] Plant Supervisor - Orthopedic Spine Surgery Sales Operations Assistant - Department of Orthopedic Surgery / Academics and Research Timber Sizer - [facility] 11/30/2020 documented in this encounter Procedure Notes Aaron Figueredo MD - 11/30/2020 5:37 PM EST [facility] INTRAOPERATIVE NEUROMONITORING REPORT Patient Name: Joseline Rose [...] 118 minutes). CPT Codes: Continuous IONM one-to-one (65124, 4 units), Continuous IONM (75912, 2 units), Neuromuscular Junction Test (TO4) (80238), EEG (non-intracranial surgery) (74854), tcMEPs Upper and lower extremities (29742), SSEPs UE&LE (84110), Needle EMG two extremities (72941) and Needle EMG cranial nerve(s), bilateral (35249) (CNX-RLN), EMG limited extremities (LE, 2 units, 99079) Summary Report: Following anesthesia and prior to [...] an ongoing basis. Aaron Figueredo MD [facility] Epilepsy Program Department of Neurology documented [...] @ 10:58 hours on 11/27/2020; not detected ([facility]) Past Medical History: Diagnosis Date ??? Allergy [...] Otero would be surrogate decision maker per [place] surrogate decision making law. (Only good for 90 days) Any patient receiving care at [facility] must abide by [place] law. The hierarchy for surrogate decision making [...] (i) The agent with financial power of document review attorney or a conservator appointed in accordance with [...] as good Home Environment: patient lives in [place], [place] alone in single wide mobile home. The raisa in her home is being replaced and the patient has temporarily relocated to the [facility]. Social & Family Supports/Community Resources: has a friend, little social support. Not employed.Mother lives in [place] but they stay in touch. Has mental [...] Health/Prescription Coverage: Primary Insurance: MEDICARE Secondary Insurance: [place] HEALTHY FAMILIES MANAGED MEDICAID Prescription Coverage: yes [facility] [place] Other: Pharmacy, [place], [place] Primary Care Provider: Tom Hay MD [phone] Patient/Caregiver Goals of Treatment: to have improvement in her activities of daily living by improved pain control Potential Needs for Transition of Care: Rehab/SNF: not needed Home Health: agrees to VNA referral DME: will need FWW Dialysis: not established HD patient Community Resources: aware Transportation: private vehicle (friend Dvaid Thurman) Other: to be assessed Anticipated Barriers [...] The patient has temporarily relocated to the [facility] while her [place] home is underrepair. She is uncertain how long she will be in [facility] but [facility] has agreed to follow her. Otherwise, the patient has outpatient mental health counselor whom she sees on a regular basis. Currently, the patient's blood sugars are not well controlled (PMH poor DM control) Plan: Finalize d/c plan (VNA and DME following 3pm blood glucose lab VNA/DME choices routed/pended with OCM Chief Radiology support. A member of the Care Management team will continue to monitor progress, follow for continuity of care and assist with transition of care planning. Barbra Orosco RN Pager: [phone] Plan of Care - Alden Clinton RN - 12/01/2020 3:07 AM EST OUTCOME EVALUATION NOTE: OUTCOME SUMMARY: [facility]. Pain controlled with oxycodone prn [...] eyes on Surveillance [continuous indirect monitoring]: purposeful rounding, masimo Patient-specific fall prevention interventions for sensory deficits provided, if applicable: [X] No CPG GOAL OUTCOME EVALUATION: Brief Op Note - Stan Lopez MD - 11/30/2020 4:08 PM EST Brief Operative Note Patient Name: Joseline Rose : [id number] MR#: [id number] Case Date: 11/30/2020 Surgeon: Surgeon(s) and Role: [...] Infection Bundle used? N/A Op Note - Rashard Hanley MD - 11/30/2020 12:52 PM EST [facility] [place] Operative Note Patient Name: Joseline Rose : [id number] MR#: [id number] Case Date: 11/30/2020 Surgeon: Surgeon(s) and Role: [...] 6. Spinal cord monitoring 7. Application removal [place] Bear tongjaime Instrumentation: Globus Israel cage Globus Walsh plate DESCDRIPTION OF PROCEDURE: The patient was [...] Office Visit Plastic Surgery Peña Woodward MD [facility] PLASTIC SURGERY [place], [place] [address] (Wo rk) 08/19/2022 Office Visit Podiatry Tom Titus DPM [place], [place] [address] (Wo josé luis) 09/08/2022 Office Visit Internal Medicine Janay Hay MD [facility] GENERAL INTERNAL MEDICINE [place], [place] [address] (Wo rk) 10/12/2059 Hospital Encounter Surgery Jim Hanley MD [facility] SPINE [place], [place] [address] (Wo rk) Scheduled Procedures Name [...] POC Glucose 155 65 - 199 [place] mg/dL [facility] Comment: Supplemental ranges: <140 mg/dL before meals <180 mg/dL all other times of the day Specimen Anatomical Collection Method Collection Time Receive d Time (Source) Location / / Volume Laterality Blood specimen 12/01/2020 3:03 PM 021 3:03 (specimen) EST PM EST Rashard Hanley MD POINT OF CARE TEST ORDERABLE S Performing Organization Address City/[facility]/ZIP Code Phon e Number [address] POCT Glucose (12/01/2020 11:33 AM EST) athologist Signature POC Glucose 174 65 - 199 [place] mg/dL [facility] Comment: Supplemental ranges: <140 mg/dL before meals <180 mg/dL all other times of the day Specimen Anatomical Collection Method Collection Time Receive d Time (Source) Location / / Volume Laterality Blood specimen 12/01/2020 11:33 1 (specimen) AM EST 11:33 AM EST Rashard Hanley MD POINT OF CARE TEST ORDERABLE S Performing Organization Address City/[facility]/ZIP [place] [address] (ABNORMAL) POCT Glucose (12/01/2020 7:26 AM EST) athologist Signature POC Glucose 211 (H) 65 - 199 [place] mg/dL [facility] Comment: Supplemental ranges: <140 mg/dL before meals <180 mg/dL all other times of the day Specimen Anatomical Collection Method Collection Time Receive d Time (Source) Location / / Volume Laterality Blood specimen 12/01/2020 7:26 AM 021 7:26 (specimen) EST AM EST Rashard Hanley MD POINT OF CARE TEST ORDERABLE S Performing Organization Address City/State/[place] [address] (ABNORMAL) Differential, Automated (12/01/2020 4:56 AM EST) [facility] gist Method Time Signature Neutrophils % 83.9 % [facility] Neutr Abs (ANC) 14.44 (H) 1.70 - [facility] 6.10 [facility] x10(3)/[facility] LABORATORY Lymphocytes % 10.6 % [facility] Lymphocytes Abs 1.8 0.9 - 3.[address] [facility] x10(3)/[facility] LABORATORY Monocytes % 4.5 % [facility] Monocyte Abs 0.8 0.3 - 0.[address] [facility] x10(3)/[facility] LABORATORY Eosinophils % 0.0 % [facility] Eosinophils Abs 0.0 0.0 - 0.[address] [facility] x10(3)/[facility] LABORATORY Basophils % 0.2 % [facility] Basophils Abs 0.0 0.0 - 0.[address] [facility] x10(3)/[facility] LABORATORY Immature Gran % 0.80 % [facility] Comment: Immature granulocytes(IG's)percentage an d absolute count will include metamyelocytes, myelocytes, and promyelo cytes. Blood smears from CBCs yielding IG's will be scanned manually for concor dance. If this scan disagrees with the automated IG or if promyelocytes are not ed, a manual differential will be performed. [place] Gran Abs 0.13 (H) 0.00 - 0.04 x10(3)/[facility] LABORATORY Specimen Anatomical Collection Method Collection Time Receive d Time (Source) Location / / Volume Laterality Blood specimen 12/01/2020 4:56 AM 021 5:06 (specimen) EST AM EST Resulting Agency Comment Spec In Lab Stan Lopez MD HEMATOLOGY ORDERABLES Performing Organization Address City/State/[place] [address] (ABNORMAL) Hemogram (12/01/2020 4:56 AM EST) Analysis Performed At Patho logist Time Signature WBC 17.2 (H) 4.0 - 9.5 [facility] [place] x10(3)/[facility] LABORATORY RBC 4.34 4.00 - [place] 5.21 [facility] x10(6)/[facility] LABORATORY Hemoglobin 13.4 11.7 - [place] 15.5 gm/dL [facility] Hematocrit 39.5 35.7 - [facility] [place] 45.8 % [facility] MCV 91.0 82.6 - [facility] [place] 94.4 [facility] LABORATORY MCH 30.9 27.1 - [facility] 32.0 pg [facility] MCHC 33.9 31.7 - [place] 35.0 gm/dL [facility] Platelets 252 145 - [address] [facility] x10(3)/[facility] LABORATORY RDWSD 40.8 37.0 - [place] 46.0 [facility] LABORATORY RDWCV 12.2 11.5 - [facility] [place] 14.1 % [facility] MPV 10.1 7.6 - 12.9 [facility] nRBC % Auto 0.0 % [facility] nRBC Abs Auto 0.000 0.000 - [place] 0.000 [facility] x10(3)/[facility] LABORATORY Specimen Anatomical Collection Method Collection Time Receive d Time (Source) Location / / Volume Laterality Blood specimen 12/01/2020 4:56 AM 021 5:06 (specimen) EST AM EST Resulting Agency Comment Spec In Lab Stan Lopez MD HEMATOLOGY ORDERABLES Performing Organization Address City/State/[place] [address] (ABNORMAL) Basic Metabolic Panel (non-fasting) (12/01/2020 4:56 AM EST) P athologist Signature Glucose Lvl 251 (H) 65 - [address] [facility] mg/dL [facility] Comment: Diabetes: >=200 mg/dL plus symp toms BUN 8 8 - 18 mg/dL [facility] Creatinine 0.63 (L) 0.70 - 1.20 mg/dL [facility] Sodium 136 135 - 145 mmol/L [facility] Potassium 4.3 3.5 - 5.0 mmol/L [facility] Comment: Please note: ??Patients with WBC >100,00 0 may have falsely elevated Potassium levels. ??For accurate Potassium quantif ication in these patients send serum separator tube (gold top) for subsequent determinations. ??Contact the Clinical Chemistry Laboratory if there are any qu estions. Chloride 102 98 - 107 mmol/L [facility] CO2 25 22 - 31 mmol/L [facility] Anion Gap 9 5 - 15 mmol/L [facility] Calcium 9.1 8.5 - 10.5 mg/dL [facility] Estimated GFR 102 >=60 mL/min/1.73 m?? [facility] Comment: This patient? s [...] Hanley MD CHEMISTRY ORDERABLES Performing Organization Address City/[facility]/[place]IP [place] [address] (ABNORMAL) POCT Glucose (12/01/2020 3:41 AM EST) P athologist Signature POC Glucose 237 (H) 65 - 199 [facility] Comment: Supplemental ranges: <140 mg/dL before meals <180 mg/dL all other times of the day Specimen Anatomical Collection Method Collection Time Receive d Time (Source) Location / / Volume Laterality Blood specimen 12/01/2020 3:41 AM 021 3:41 (specimen) EST AM EST Rashard Hanley MD POINT OF CARE TEST ORDERABLE S Performing Organization Address City/[facility]/[place]IP [place] [address] (ABNORMAL) POCT Glucose (12/01/2020 1:29 AM EST) P athologist Signature POC Glucose 278 (H) 65 - 199 [facility] Comment: Supplemental ranges: <140 mg/dL before meals <180 mg/dL all other times of the day Specimen Anatomical Collection Method Collection Time Receive d Time (Source) Location / / Volume Laterality Blood specimen 12/01/2020 1:29 AM 021 1:29 (specimen) EST AM EST Rashard Hanley MD POINT OF CARE TEST ORDERABLE S Performing Organization Address City/[facility]/[place]IP [place] [address] (ABNORMAL) POCT Glucose (11/30/2020 11:32 PM EST) P athologist Signature POC Glucose 298 (H) 65 - 199 [facility] Comment: Supplemental ranges: <140 mg/dL before meals <180 mg/dL all other times of the day Specimen Anatomical Collection Method Collection Time Receive d Time (Source) Location / / Volume Laterality Blood specimen 11/30/2020 11:32 (specimen) PM EST 11:32 PM EST Rashard Hanley MD POINT OF CARE TEST ORDERABLE S Performing Organization Address City/State/[place] [address] XR Cervical Spine 2 [...] report, please contact e number below. ? Electronically signed by: Camilo freitas MD, [facility] ([phone]), at 11/30/2020 7:56 PM Narrative 11/30/2020 7:56 PM EST EXAMINATION: XR [...] report, please contact th e number below. Electronically signed by: Camilo freitas MD, [facility] ([phone]), at 11/30/2020 7:56 PM Rashard Hanley MD IMG DX ORDERABLES (ABNORMAL) POCT Glucose (11/30/2020 6:52 PM EST) P athologist Signature POC Glucose 322 (H) 65 - [address] [facility] mg/dL [facility] Comment: Supplemental ranges: <140 mg/dL before meals <180 mg/dL all other times of the day Specimen Anatomical Collection Method Collection Time Receive d Time (Source) Location / / Volume Laterality Blood specimen 11/30/2020 6:52 PM 021 6:52 (specimen) EST PM EST Rashard Hanley MD POINT OF CARE TEST ORDERABLE S Performing Organization Address City/State/ZIP Code Phon e Number [address] (ABNORMAL) POCT Glucose (11/30/2020 4:35 PM EST) P athologist Signature POC Glucose 228 (H) 65 - 199 [facility] [place] mg/dL [facility] Comment: Supplemental ranges: <140 mg/dL before meals <180 mg/dL all other times of the day Specimen Anatomical Collection Method Collection Time Receive d Time (Source) Location / / Volume Laterality Blood specimen 11/30/2020 4:35 PM 021 4:35 (specimen) EST PM EST Rashard Hanley MD POINT OF CARE TEST ORDERABLE S Performing Organization Address City/State/[place] [address] XR Cervical Spine 1 [...] report, please contact e number below. ? Electronically signed by: Moises Head MD , [facility] ([phone]), at 11/30/2020 4:48 PM Narrative 11/30/2020 4:48 PM EST EXAMINATION: XR [...] this report, please contact e number below. Electronically signed by: Moises Head MD , [facility] ([phone]), at 11/30/2020 4:48 PM Rashard Hanley MD IMG DX ORDERABLES XR [...] report, please contact e number below. ? Electronically signed by: Heladio Dukes MD, [facility] ([phone]), at 11/30/2020 3:50 PM Narrative 11/30/2020 3:50 PM EST EXAMINATION: XR [...] this report, please contact e number below. Electronically signed by: Heladio Dukes MD, [facility] ([phone]), at 11/30/2020 3:50 PM Rashard Hanley MD IMG DX ORDERABLES (ABNORMAL) BLOOD GAS 2 ARTERIAL (11/30/2020 2:54 PM EST) Analysis Performed At Patho logist Time Signature pH Art 7.42 7.35 - [facility] 7.45 [facility] pCO2 Art 32 (L) 35 - [address] [facility] mmHg [facility] pO2 Art 93 85 - [address] [facility] mmHg [facility] HCO3 Art 20.4 20.0 - [facility] 26.0 [facility] mmol/L [facility] BE Art -4.3 (L) -3.0 - 3.[address] [facility] mmol/L [facility] Hgb Blood Gas 12.7 11.7 - [facility] 15.5 gm/dL [facility] O2HB Art 94.1 94.0 - [facility] 97.0 % [facility] COHB Art 3.3 % [facility] Comment: Nonsmokers: 0.5-1.5% COHB Smokers: Variable, but usually less than 10% Toxic: 20-30% COHB Lethal: Greater than 60% COHB METHB Art 0.3 <=1.5 % [facility] Na Whole Blood 135 135 - 145 mmol/L [facility] K Whole Blood 3.5 3.5 - 5.0 mmol/L [facility] Comment: Please note: Patients with WBC >100,000 may have falsely elevated Potassium levels. Contact the Clinical Chemistry L aboratory if there are any questions. ICa Whole Blood 1.09 (L) 1.15 - 1.33 mmol/L [facility] Comment: Note: ??Total bilirubin higher than 20 m g/dL may lead to falsely low ionized calcium. CL Whole Blood 110 (H) 98 - 107 mmol/L [facility] Gluc Whole Bld 214 (H) 65 - 199 mg/dL [facility] Comment: Diabetes: >=200 mg/dL plus symp toms. Lactate WB 1.8 0.5 - 2.2 mmol/L [facility] FIO2 Art 54 % [facility] Flow Art 8.0 LPM [facility] PF Ratio Art 172 [facility] Temp Art 36.4 Celsius [facility] Specimen Anatomical Collection Method Collection Time Receive d Time (Source) Location / / Volume Laterality Blood specimen 11/30/2020 2:54 PM 021 2:54 (specimen) EST PM EST Rashard Hanley MD CHEMISTRY ORDERABLES Performing Organization Address City/State/[place] [address] XR Cervical Spine 1 [...] please contact th e number below. ? Electronically signed by: Mattie jacobsen MD, [facility] ([phone]), at 11/30/2020 2:06 PM Narrative 11/30/2020 2:06 PM EST EXAMINATION: XR [...] No malalignment or acute abnormality. Procedure Note Mattie Laughlin MD - 11/30/2020Forma tting of this note might be different from the original. EXAMINATION: XR CERVICAL SPINE 1 VIEW CLINICAL HISTORY: Cervical myeloradiculo taiwo progressive TECHNIQUE: Cross table lateral view of the cervical spine, portable in OR at 1340 COMPARISON: Radiographs September 18, 2020 and uar 2020; CT September 18, 2020 FINDINGS: The [...] report, please contact th e number below. Electronically signed by: Mattie jacobsen MD, [facility] ([phone]), at 11/30/2020 2:06 PM Rashard Hanley MD IMG DX ORDERABLES XR [...] report, please contact e number below. ? Electronically signed by: Heladio Dukes MD, [facility] ([phone]), at 11/30/2020 1:55 PM Narrative 11/30/2020 1:55 PM EST EXAMINATION: XR [...] For questions regarding this report, please contact [facility] number below. Electronically signed by: [facility] Dukes MD[facility] ([phone]), at 11/30/2020 1:55 PM Rashard Hanley MD IMG DX ORDERABLES XR [...] report, please contact e number below. ? Electronically signed by: Mattie jacobsen MD, [facility] ([phone]), at 11/30/2020 1:00 PM Narrative 11/30/2020 1:00 PM EST EXAMINATION: XR [...] For questions regarding this report, please contact [facility] number below. Rashard Hanley MD IMG DX ORDERABLES (ABNORMAL) BLOOD GAS 2 ARTERIAL (11/30/2020 12:34 PM EST) Analysis Performed At Patho logist Time Signature pH Art 7.36 7.35 - [facility] 7.45 [facility] pCO2 Art 38 35 - [address] [facility] mmHg [facility] pO2 Art 142 (H) 85 - 104 [facility] LABORATORY HCO3 Art 21.2 20.0 - [facility] 26.0 [facility] mmol/L [facility] BE Art -4.5 (L) -3.0 - 3.[address] [facility] mmol/L [facility] Hgb Blood Gas 13.5 11.7 - [facility] 15.5 gm/dL [facility] O2HB Art 94.3 94.0 - [facility] 97.0 % [facility] COHB Art 4.0 % [facility] Comment: Nonsmokers: 0.5-1.5% COHB Smokers: Variable, but usually less than 10% Toxic: 20-30% COHB Lethal: Greater than 60% COHB METHB Art 0.3 <=1.5 % [facility] Na Whole Blood 136 135 - 145 mmol/L [facility] K Whole Blood 3.7 3.5 - 5.0 mmol/L [facility] Comment: Please note: Patients with WBC >100,000 may have falsely elevated Potassium levels. Contact the Clinical Chemistry L aboratory if there are any questions. ICa Whole Blood 1.18 1.15 - 1.33 mmol/L [facility] Comment: Note: ??Total bilirubin higher than 20 m g/dL may lead to falsely low ionized calcium. CL Whole Blood 106 98 - 107 mmol/L [facility] Gluc Whole Bld 176 65 - 199 mg/dL [facility] Comment: Diabetes: >=200 mg/dL plus symp toms. Lactate WB 2.0 0.5 - 2.2 mmol/L [facility] FIO2 Art 66 % [facility] Flow Art 1.5 LPM [facility] PF Ratio Art 215 [facility] Temp Art 36.0 Celsius [facility] Specimen Anatomical Collection Method Collection Time Receive d Time (Source) Location / / Volume Laterality Blood specimen 11/30/2020 12:34 1 (specimen) PM EST 12:34 PM EST Rashard Hanley MD CHEMISTRY ORDERABLES Performing Organization Address City/State/[place] [address] (ABNORMAL) POCT Glucose (11/30/2020 10:57 AM EST) P athologist Signature POC Glucose 218 (H) 65 - [address] [facility] mg/dL [facility] Comment: Supplemental ranges: <140 mg/dL before meals <180 mg/dL all other times of the day Specimen Anatomical Collection Method Collection Time Receive d Time (Source) Location / / Volume Laterality Blood specimen 11/30/2020 10:57 1 (specimen) AM EST 10:57 AM EST Rashard Hanley MD POINT OF CARE TEST ORDERABLE S Performing Organization Address City/State/[place] [address] documented in this encounter [...] on Thu11/30/20 at 2030, Until Discontinued, Routine ceFAZolin (Ancef) 1 g in dextrose 5% New Bag 12/01/2020 8:28 A M EST 1 g 100 mL/hr 50 mL infusion 1 g, Intravenous, EVERY 8 HOURS, 3 doses, First dose on Thu11/30/20 at 1700, Last dose on 12/01/20 at 0900, Administer over 30 Minutes, Adjust to 4 hours from intraoperative dose. * Beta-lactam based antibiotics (eg. Ampicillin, Cefazolin, Aztreonam) should be administered within 4 hours of the preceding intraoperative dose. * Vancomycin, Flouroquinolones, Clindamycin, Gentamicin, and Metronidazole should be administered within 8 hours of the preceding intraoperative dose., Recovery (Recovery-Hospital Unit), Indication for (Active or Suspected): Prophylaxis New Bag 12/01/2020 12:41 AM EST 1 g 100 mL/hr New Bag 11/30/2020 5:04 PM EST 1 g 100 mL/hr dextrose 10% infusion 250 mL, at 1,000 mL/hr, Intravenous, CRISS RY 30 MIN PRN, Starting on Thu11/30/20 at 2008, Until 12/01/20 at 1937, For BG 50-70 [...] on 12/01/20 at 0900, Until Discontinued, Routine glipiZIDE (Glucotrol) tablet 10 mg Given [...] 0900, Until Discontinued, Hold if SBP<50, Routine HYDROmorphone (Dilaudid) (2 mg/mL) multi-dose Given 6:59 PM EST 0.6 mg injection solution 0.4-0.6 mg 0.4-0.6 mg, Intravenous, EVERY 5 MIN PRN, Starting on Thu11/30/20 at 1611, Until Thu11/30/20 at 1925, Pain, Give 0.4 mg every 5 minutes PRN for mild to moderate pain (1-5) Give 0.6 mg every 5 minutes PRN for moderate to severe pain (6-10). Hold for respiratory rate less than 10 per minute. Maximum dose 2 mg over one hour. If multiple pain medications are ordered, start with hydromorphone or morphine and use fentanyl for breakthrough pain., PACU Recovery, Routine Given 11/30/2020 4:39 PM EST 0.4 mg Given 11/30/2020 4:27 PM EST 0.6 mg insulin lispro (HumaLOG) (100 unit/mL) Given 12/01/2020 [...] insulin lispro (HumaLOG) (100 unit/mL) Given 12/01/2020 3:57 AM EST 2 Units subcutaneous injection vial 1-4 Units 1-4 Units, Subcutaneous, EVERY 4 HOURS SCHEDULED, First dose on Thu11/30/20 at 1715, Until Discontinued, CORRECTION BOLUS [1-4 Units] Sensitive Sliding Scale: Correction factor 40 (1 unit of insulin is expected to drop the glucose 40 mg/dL) BG 160 - 200 Give 1 unit BG 201 - 240 Give 2 units BG 241 - 280 Give 3 units BG greater than 280, give 4 units and recheck BG in 2 hours. - If recheck BG is LESS than 280, give no insulin and resume schedule - If recheck BG is GREATER than 280, give 4 units and repeat BG in 2 hours (no more than 3 times) & call for new insulin orders. DO NOT hold if NPO, unless specifically told to do so. Per Blood Glucose Monitoring Policy, re-check a BG of > 240 in 2 hours., Routine Given 11/30/2020 11:45 PM EST 4 Units Given 11/30/2020 6:55 PM EST 4 Units insulin lispro (HumaLOG) (100 unit/mL) Given 12/01/2020 3:38 PM EST 1 Units subcutaneous injection vial 1-6 Units 1-6 Units, Subcutaneous, EVERY 4 HOURS SCHEDULED, First dose on Thu12/01/20 at 0815, Until Discontinued, CORRECTION BOLUS [1-6 [...] 4:59 PM EST 1,000 mLs 100 mL/hr documented in this encounter Active and Recently Administered Medications Times are shown in EST. Scheduled Medication Order 11/29/2020 11/30/2020 12/01/2020 acetaminophen (Tylenol) tablet 1,000 mg 1711 (Given - Provider: Charlotte Stacy RN)2345 (Given - Provider: Alden Clinton RN) 0550 (Given - Provider: Alden Clinton RN)1335 (Given - Provider: Halle Fried, MARCOS) 1,000 mg, Oral, EVERY 8 HOURS SCHEDULED, First dose on Thu11/30/20 at 1715, Until Discontinued, Maximum dose of acetaminophen is 4000 mg from all sources in 24 hours. When ordered for pain, acetaminophe n should be given even when other ordere d pain medications are indicated. , Routine amLODIPine (Norvasc) tablet 10 mg 0823 (Given - Provider: Halle Fried RN) 10 mg, Oral, DAILY, First dose on Sat at 0900, Until Discontinued, Hold if SBP<90, Routine ARIPiprazole (Abilify) tablet 30 mg 1037 (Given - Provider: Halle Fried RN) 30 mg, Oral, DAILY, First dose on Thu at 0900, Until Discontinued, Routine atorvastatin (Lipitor) tablet 20 mg 2050 (Given - Provider: Alden Clinton RN) 1700 (Due) 20 mg, Oral, DAILY, First dose on Thu at 2030, Until Discontinued, Routine ceFAZolin (Ancef) 1 g in dextrose 5% 50 mL infusion (COMPLET ED) 1704 (New Bag - Provider: Charlotte Stacy RN)1734 (Stopped - Provider: Charlotte Stacy RN) 0041 (New Bag - Provider: Alden Clinton RN)0111 (Stopped - Provider: Alden Clinton, MARCOS)0828 (New Bag - Provider: Halle Fried RN)0858 [...] for (Active or Suspected): Prophylaxis DULoxetine DR Humphreymbalta) capsule 60 mg 08 (Given - Provider: Halle Fried, MARCOS) 60 mg, Oral, DAILY, First dose on Sat at 0900, Until Discontinued, Routine glipiZIDE (Glucotrol) tablet 10 mg 08 (Given - Provider: Halle Fried, MARCOS) 10 mg, Oral, EVERY MORNING BEFORE BREAKF AST, First dose on 12/01/20 at 0815, Until Discontinued, Administer 30 minutes before the meal. Consider holding dose if patient is not eating. , Routine hydroCHLOROthiazide (Hydrodiuril) tablet 50 mg 08 (Given - Provider: Halle Fried, MARCOS) 50 mg, Oral, DAILY, First dose on [...] s ubcutaneous injection vial 1-4 Units (CANCELED) 185 (Given - Provider: Jeovanny Stacy RN)1999 (Not Given - Provider: Alden Clinton RN - Reason: See comment - Comment: given [...] 1) 0820 (Given - Prov ider: Halle Fried RN)1221 (Given - Provider: Mallory Bowles LPN)1538 (Given - Provider: Mallory Bowles LPN) 1-6 Units, Subcutaneous, EVERY 4 HOURS S CHEDULED, First dose on Thu12/01/20 at 0815, Until Discontinued, CORRECTION BOLUS [1-6 [...] Clinton RN) 0841 (Given - Provider: Halle Fried RN)1223 (Not Given - Provider: Mallory Bowles LPN [...] 2048 (Given - Provider: Alden Clinton, RN) 0822 (Given - Provider: Halle Fried, MARCOS) 17 [...] 1659 (New Bag - Pr ovider: Charlotte Stacy, RN) 0350 (New Bag - Provider: Alden Clinton, RN) 1,000 mL, at 100 mL/hr, Intravenous, CON TINUOUS, Starting Thu11/30/20 at 1715, Until 12/01/20 at 1937 tranexamic acid (Cyklokapron) 1,000 mg i n sodium chloride 0.9% 110 mL infusion (CANCELED) 1228 (New Bag - Provider: Ngozi Jiménez CRNA)1242 (Canceled Entry - Provider: Evy Jiménez CRNA) 1 mg/kg/hr ? 88.5 kg (9.735 mL/hr, rounded to 9.7 mL/hr), at 9.7 mL/hr, Intravenous, CONTINUOUS, Starting Thu11/30/20 at 1030, Until Thu11/30/20 at 1649, Day of Surgery (Day of Procedure) PRN Medication Order 11/29/2020 11/30/2020 12/01/2020 albuteroL (PROVENTIL) nebulizer solution 2.5 mg 2.5 mg, Nebulization, EVERY 4 HOURS PRN, Starting 12/01/20 at 0958, Until 12/01/20 at 1937, Wheezing, Routine ALPRAZolam (Xanax) tablet 1 mg 0 010 (Given - Provider: Alden Clinton, MARCOS) 1 mg, Oral, 3 TIMES DAILY PRN, Starting Thu11/30/20 at 1649, Until 12/01/20 [...] Thu11/30/20 at 2008, Until 12/01/20 at 193, For BG 50-70 mg/dL: Oral treatment preferred:?? [...] Starting Thu11/30/20 at 1319, Until 12/01/20 at 1937, Intra- Operative (Intra-Procedure), Routine glucagon (Glucagen) (1 mg/mL) injection solution 1 mg(Linked Mana up 2) 1 mg, Intramuscular, EVERY 30 MIN PRN, S tarting Thu11/30/20 at 2008, Until 12/01/20 at 1937, [...] mg (CANCELED) 1618 (Given - Provider: Jeovanny Stacy, MARCOS)1627 (Given - Provider: Charlotte Stacy, RN)1639 (Given [...] Starting 11/30 at 2008, Until 12/01/20 at 1937, Constipation, Administer if needed per patient's routine [...] Starting Thu11/30/20 at 2008, Until 12/01/20 at 1937, for discomfort with PIV insertion, Routine methocarbamoL (Robaxin) tablet 750 mg 750 mg, Oral, 3 TIMES DAILY PRN, Startin g Thu11/30/20 at 1649, Until 12/01/20 at 1937, Muscle spasms, Routine ondansetron (pf) (Zofran) (2 mg/mL) injection 4 mg 0020 (Given - Provider: Alden Clinton RN) 4 mg, Intravenous, EVERY 8 HOURS PRN, St arting Thu11/30/20 at 2008, Until 12/01/20 at 193, Nausea, If multiple antiemetics are ordered, use ondansetron first, prochlorperazine second, metoclopramide third. oxyCODONE (Roxicodone) tablet 10 mg(Linked Group 3) 1710 (Given - Provider: Charlotte Stacy RN)2046 (See Alternative - Provider: Alden Clinton RN) 0349 (See Alternative - Provider: Alden Clinton RN)0952 (See Alternative - Provider: Halle Fried RN)1500 (See Alternative - Provider: Mallory Bowels LPN) 10 mg, Oral, EVERY 4 HOURS PRN, Starting Thu11/30/20 at 164, Until 12/01/20 at 1937, Pain, moderate pain (4-6), For moderate pain (4-6). Do not exceed 15 mg in 4 hours. If pain not relieved, call provider., Routine oxyCODONE (Roxicodone) tablet 15 mg(Linked Group 3) 1710 (See Alternative - Provider: Charlotte Stacy RN)2045 (Given - Provider: Alden lCinton RN) 034 (Given - Provider: Alden Clinton, RN)0952 (Given - Provider: Halel Fried, MARCOS)1500 (Given - Provider: Mallory Bowles LPN) 15 mg, Oral, EVERY 4 HOURS PRN, Starting 11/30/20 at 1649, Until 12/01/20 at 1937, Pain, severe pain (7-10), For severe pain (7-10). Do not exceed 15 mg in 4 hours. If pain not relieved, call provider., Routine oxyCODONE (Roxicodone) tablet 5 mg(Linked Group 3) 1710 (See Alternative - Provider: Charlotte Stacy RN)2045 [...] tarting 11/30/20 at 2009, Until 12/01/20 at 1937, flush, Flush pertains to all indwelling lines. [...] or Regular (not diet) soda OR If PRODUCTION SUPERINTENDENT O, give 15 gram glucose 40% oral [...] tarting Thu11/30/20 at 2009, Until 12/01/20 at 193, Low blood sugar
For BG 50-70 mg/dL: [...] at 1649, Until 12/01/20 at 193, Pain, mild pain (1-3)
For mild pain (1-3). Do not exceed 15 mg in 4 hours. If pain not relieved, call provider
Routine Or oxyCODONE (Roxicodone) tablet 10 mgJump to med 10 mg, Oral, EVERY 4 HOURS PRN, Starting Thu11/30/20 at 1649, Until 12/01/20 at 193, Pain, moderate pain (4-6)
For moderate pain [...]
Routine documented in this encounter Care Teams Oriental Medicine Practitioner Relationship Specialty Start Date End Date Tom Hay MD PCP - General General Internal Medicine 09/15/18 [facility] [place] [address] documented as of this encounter
--- OUTSIDE RECORDS SUMMARY | 2022-07-12 00:46 | XMS_ITS | Encounter Summary ---
:1965 Author Organization [facility] [place] [address] Care Team Providers Name Role Phone Tom Hay MD Primary Care Provider Reason for Visit Reason Comments Urinary Tract Infection x4rtilo since surgery. yeast infection? discharge, burning urethra. Encounter Details Date Type Department Care Team Description 12/19/2020 Office Visit Internal Medicine at Radhika Barcenas Acu te vaginitis; [facility] Dysuria [facility]ly [facility] [place] [address] GENERAL INTERNAL [phone] MEDICINE [place] [phone] (Wo rk) Social History Tobacco Use Types [...] Sign Reading Time Taken Comments Blood Pressure 125/85 12/19/2020 3:35 PM EST Pulse 106 12/19/2020 3:35 PM EST Temperature 36.8 ??C (98.3 ??F) 12/19/2020 3:35 PM EST Respiratory Rate 16 12/19/2020 3:35 PM EST Oxygen Saturation 98% 12/19/2020 3:35 PM EST Inhaled Oxygen Concentration - - Weight 90.7 kg (200 lb) 12/19/2020 3:35 PM EST Height 165.1 cm (5' 5) 12/19/2020 3:35 PM EST Body Mass Index 33.28 12/19/2020 3:35 PM EST documented in this encounter Patient Instructions Patient InstructionsRadhika Barcenas APRN - 12/19/2020 3:20 PM EST Images from the original note were not included. Patient Education Vaginitis: Care Instructions Your Care Instructions Vaginitis is soreness or infection of the vagina. This common problem can cause itching and burning.And it can cause a change in vaginal discharge. Sometimes it can cause pain during sex. Vaginitis may be caused by bacteria, yeast, or other germs. Some infections that cause it are caught from a sexual partner. Bath products, spermicides, and douches can irritate the vagina too. Some women have this problem during and after menopause. A drop in estrogen levels during this time can cause dryness, soreness, and pain during sex. Your doctor can give you medicine to treat an infection. And home care may help you feel better. Forcertain types of infections, your sex partner must be treated too. Follow-up care is a acosta part of your treatment and safety. Be sure to make and go to all appointments, and call your doctor if you are having problems. It's also a good idea to know your test results and keep a list of the medicines you take. How can you care for yourself at home? ?? If your doctor prescribed antibiotics, take them as directed. Do not stop taking them just because you feel better. You need to take the full course of antibiotics. ?? Take your medicines exactly as prescribed. Call your doctor if you think you are having a problemwith your medicine. ?? Do not eat or drink anything that has alcohol if you are taking metronidazole (Flagyl). ?? If you have a yeast infection, use [id number] products as your doctor tells you to. Or takemedicine your doctor prescribes exactly as directed. ?? Wash your vaginal area daily with water. You also can use a mild, unscented soap if you want. ?? Do not use scented bath products. And do not use vaginal sprays or douches. ?? Put a washcloth soaked in cool water on the area to relieve itching. Or you can take cool baths. ?? If you have dryness because of menopause, use estrogen cream or pills that your doctor prescribes. ?? Ask your doctor about when it is okay to have sex. ?? Use a personal lubricant before sex if you have dryness. Examples are Astroglide, K-Y Jelly, and Wet Lubricant Gel. ?? Ask your doctor if your sex partner also needs treatment. When should you call for help? Call your doctor now or seek immediate medical care if: ? You have a fever and pelvic pain. Watch closely for changes in your health, and be sure to contact your doctor if: ? You have bleeding other than your period. ? You do not get better as expected. Where can you learn more? Visit our health information library at [email or web address] You can also view health information on [employer], your personal patient account. Log in or sign up today. Enter F219 in the search box to learn more about Vaginitis: Care Instructions. Current as of: April 27, 2020?Content Version: 12.7 ?? [id number] [employer]. Care instructions adapted under license by [facility]. If you have questions about a medical condition or this instruction, always ask your healthcare professional. [employer] disclaims any warranty or liability for your use of this information. documented in this encounter Progress Notes Radhika Barcenas APRN - 12/19/2020 3:20 PM EST Subjective: Patient ID: Joseline Rose is a 55 y.o. female. HPI Evaluation today was performed: [] By video conference [x] In-person PPE used during in-person evaluation: [] Gloves [] Gown [] Goggles [x] Face-shield [x] Level 2 mask [] N-95 [] PAPR Joseline is here with urethra burning and irritations, she has chronic yeast and was on Keflex last month for UTI. She is drinking fluids PMH - Asthma, Hypothyroid, Depression, Bipolar, SEB, DM2, COPD, HTN, Hyperlipidemia, Psoriasis on scalp, GERD and fibromyalgia. ?? On 11/30/20 had C6 corpectomy C5-7 instrumentation arthrodesis 11/30/2020 Review of Systems Constitutional: Negative for activity change, appetite change, chills, fatigue and fever. Genitourinary: Positive for dysuria. Negative for flank pain, frequency and urgency. Objective: Physical Exam Vitals reviewed. Abdominal: Palpations: Abdomen is soft. Tenderness: There is no abdominal tenderness. There is no right CVA tenderness or left CVA tenderness. Neurological: Mental Status: She is alert. Assessment and Plan: Joseline was seen today for urinary tract infection or vaginitis with urethritis from yeast. See encounter summary for patient instructions. Diagnoses and all orders for this visit: Acute vaginitis - fluconazole (Diflucan) 150 mg Tablet; Take 1 tablet by mouth every other day for 3 doses. Dysuria - Urinalysis with reflex Culture documented in this encounter Plan of Treatment Upcoming Encounters Date Type Specialty Care Team Description 08/06/2022 Office Visit Plastic Surgery Peña Woodward MD [facility] PLASTIC SURGERY [place], [place] [address] (Wo rk) 08/19/2022 Office Visit Podiatry Tom Titus DPM [place], [place] [address] (Wo rk) 09/08/2022 Office Visit Internal Medicine Janay Hay MD [facility] GENERAL INTERNAL MEDICINE [place], [place] [address] (Wo rk) 10/12/2059 Hospital Encounter Surgery Jim Hanley MD [facility] SPINE CENTER [place], [place] [address] (Wo rk) Scheduled Procedures Name [...] Name Priority Date/Time Associated Comments Diagnosis URINALYSIS Routine 12/19/2020 3:30 PM Results f or this MICROSCOPIC EXAM EST procedure a re in the results section. URINE HOLD Routine 12/19/2020 3:30 PM Results f or this EST procedure are i n the results section. URINALYSIS WITH Routine 12/19/2020 3:30 PM Dysuria Result s for this REFLEX CULTURE EST procedure are in the results section. URINE CULTURE Routine 12/19/2020 3:30 PM Results for this EST procedure are i n the results section. documented in this encounter Results (ABNORMAL) Urine culture (12/19/2020 3:30 PM EST) [facility] Method Time Signature Urine Culture 10,000-49,000 cfu/ml mixed mucosal zeferino MURRAY Note: Culture shows multiple bacterial species [facility]. If symptoms c ontinue to indicate urinary tract infection, submit [facility] a new specimen. [facility] Specimen (Source) Anatomical Collection Method Collection Time Re ceived Time Location / / Volume Laterality Urine specimen 12/19/2020 3:30 12/19/2020 5:12 obtained by clean PM EST PM EST catch procedure (specimen) Resulting Agency Comment Spec In Lab Radhika Barcenas APRN MICROBIOLOGY - GENERAL ORDER NERIS Performing Organization Address City/State/[place] [address] (ABNORMAL) Urinalysis Microscopic Exam (12/19/2020 3:30 PM EST) Patholo gist Method Time Signature RBC UA 4 0 - 4 [facility] WBC UA 25 (H) 0 - 5 [facility] /HPF [facility] Bacteria UA Occasional (A) None /HPF [facility] Squam Epith 5 (H) <=4 /HPF [facility] UA [facility] Hyaline Cast 3 (H) 0 - 2 [facility] /LPF [facility] Specimen (Source) Anatomical Collection Method Collection Time Re ceived Time Location / / Volume Laterality Urine specimen 12/19/2020 3:30 12/19/2020 4:02 obtained by clean PM EST PM EST catch procedure (specimen) Resulting Agency Comment Spec In Lab Radhika Masha Barcneas CHILD SPECIALIST URINE ORDERABLES Performing Organization Address City/[facility]/ZIP Code Phon e Number [address] Urine Hold (12/19/2020 3:30 PM EST) P athologist Signature Urine Hold Sample in [facility] LABORATORY Specimen Anatomical Collection Method Collection Time Receive d Time (Source) Location / / Volume Laterality Urine specimen Urine / Unknown 12/19/2020 3:30 PM 12/10 4:02 (specimen) EST PM EST Radhika Srivastavatt CHILD SPECIALIST URINE ORDERABLES Performing Organization Address City/[facility]/ZIP [facility] Phon e Number [address] (ABNORMAL) Urinalysis with reflex Culture (12/19/2020 3:30 PM EST) [facility] Method Time Signature Glucose UA >=1000 Negative [facility] (Critical) mg/dL [facility] Comment: Urinalysis result NOT critical without a combination of Glucose greater than or equal to 500 mg/dL AND Ketones greate r than or equal to 80 mg/dL Protein UA Negative Negative mg/dL [facility] Bilirubin UA Negative Negative mg/dL [facility] Comment: Clinical correlation required for positi ve Urine Bilirubin results as false positive may occur with some drugs and d rug related products. If a false positive is suspected a serum total bili nielsen should be considered if clinically indicated. Urobilinogen UA Normal Normal mg/dL [facility] pH UA 6.0 5.0 - 8.0 [facility] Blood UA Small (A) Negative mg/dL [facility] Ketones UA Trace (A) Negative mg/dL [facility] Nitrite UA Negative Negative [facility] Leukocytes UA Negative Negative [facility] LABORATORY Appearance UA Cloudy (A) Clear [facility] Spec [place] UA >=1.030 (A) 1.006 - 1.030 [facility] LAB[facility] Color UA Yellow Yellow [facility] Culture Reflexed Yes [facility] LABOR[facility]ORY Specimen (Source) Anatomical Collection Method Collection Time Re ceived Time Location / / Volume Laterality Urine specimen 12/19/2020 3:30 12/19/2020 4:02 obtained by clean PM EST PM EST catch procedure (specimen) Resulting Agency Comment Spec In Lab Radhika Barcenas APRN URINE ORDERABLES Performing Organization Address City/State/[place] [address] documented in this encounter Visit Diagnoses Diagnosis Acute vaginitis Vaginitis and vulvovaginitis, unspecifie d Dysuria documented in this encounter Care Teams Cabbage Salter Relationship Specialty Start Date End Date Tom Hay MD PCP - General General Internal Medicine 09/15/18 [facility] [place] [address] documented as of this encounter
--- OUTSIDE RECORDS SUMMARY | 2022-07-12 00:46 | XMS_ITS | Encounter Summary ---
:1965 Author Organization [facility] Address [address] [place] [address] Care Team Providers Name Role Phone Tom Hay MD Primary Care Provider Reason for Visit Reason Comments Follow-up Severe neuropathy, especiall y in feet and hands. Would like to resume Lyrica. Facial Pain Pimples in nose that split o pen. Encounter Details Date Type Department Care Team Description 01/30/2021 Office Visit Internal Medicine at Tom Hay ntrolled type 2 diabetes mellitus without complication, unspecified whether long lines operator insulin use; [facility] MD Kevin Essential hypertension; [facility] Hyp othyroidism, unspecified type; Elizabeth BELL Vitamin D deficiency; [place], [place] GENERAL INTERNAL Chronic obs tructive pulmonary disease with acute exacerbation; [id number] MEDICINE Dysuria [phone] [place], [place] [address] (Wo rk) Social History Tobacco [...] Sign Reading Time Taken Comments Blood Pressure 126/79 01/30/2021 3:53 PM EDT Pulse 99 01/30/2021 3:53 PM EDT Temperature 36.9 ??C (98.5 ??F) 01/30/2021 3:53 PM EDT Respiratory Rate 16 01/30/2021 3:53 PM EDT Oxygen Saturation 99% 01/30/2021 3:53 PM EDT Inhaled Oxygen Concentration - - Weight - - Height - - Body Mass Index - - documented in this encounter Progress Notes Ninfa Nielsen CCMA - 01/30/2021 3:40 PM EDT PPE used during in-person evaluation: [] Gloves [] Gown [x] Goggles [] Face-shield [x] Level 2 mask [] N-95 [] PAPR Tom Hay MD - 01/30/2021 3:40 PM EDT General Internal Medicine - Clinic Note Subjective -Joseline Rose is a 55 y.o. female presenting for follow up who has Asthma; Hypothyroid; Depression; Sleep apnea; Uncontrolled type 2 diabetes mellitus with hyperglycemia; COPD (chronicobstructive pulmonary disease); Bipolar II disorder; Vitamin D deficiency; Essential hypertension; and Hyperlipidemia on their pertinent problem list. Had cervical corpectomy 11/30- worked well- arm pain better- also back. Very happy with results . Trouble walking is better. -Bad neuropathy of feet. Lyrica helped in past. On dulox 60. Seeing podiatry. Awaiting shoes. H/o ulcers. -problem with pimples of nose- recurrent. -DM- on sema; A1c 7.7 in October. No pred since Sep. No lows by fs, but can feel low. Still on glip.Fastings 120. -COPD/asthma- Breathing has been good lately on Trelegy. Still smoking. Will try chantix again. -Repeat CT- No change. -D def- chronic diarrhea. HCM- 11/01 JEANMARIE Family History CAD-??no Ca-??mother with breast, nonmelanoma skin.?? 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 Cut out due to diabetes. Smokes MJ- medical; no other illicits.?? Physical Exam Vitals: 01/30/21 1553 BP: 126/79 BP Location (NBP): Left arm Patient Position: Sitting BP Cuff Sizes: Adult (25-34 cm) Pulse: 99 Resp: 16 Temp: 36.9 ??C (98.5 ??F) TempSrc: Oral SpO2: 99% Gen - No apparent distress HEENT - Neck - Lungs - Heart - Abdomen - Extremities - feet- decr sens, no ulcers. Has bandages from recent wart removal Assessment and Plan 1. DM with painful neuropathy- will start lyrica for pain, get diabetic shoes for neuropathy with h/o ulcers. Chk A1c- DC glip if <7. 2. htn- doing well on amlo 3. Nasal pimples- bacroban 4. COPD= smoking cessation with chantix, cont trelegy- ? De-escalate in future 5. Diarrhea/d Def- chk D, TTG 6. Lung nodule/adrenal nodule- no change- no further imaging. Consider lung ca screening..... 7. Did great with spine surgery FU 4mo documented in this encounter Miscellaneous Notes Addendum Note - Jessie Rivera - 01/30/2021 3:40 PM EDT Addended by: JESSIE RIVERA on: 01/30/2021 04:32 PM Modules accepted: Orders documented in this encounter Plan of Treatment Upcoming Encounters Date Type Specialty Care Team Description 08/06/2022 Office Visit Plastic Surgery Peña Woodward MD [facility] PLASTIC SURGERY [place] [id number] (Wo rk) 08/19/2022 Office Visit Podiatry Tom Titus DPM [place], [place] [address] (Wo rk) 09/08/2022 Office Visit Internal Medicine Janay Hay MD [facility] GENERAL INTERNAL MEDICINE [place], [place] [address] (Wo rk) 10/12/2059 Hospital Encounter Surgery Jim Hanley MD [facility] SPINE CENTER [place], [place] [address] (Wo rk) Scheduled Orders Name Type Priority Associated Diagnoses Order S chedule Hemoglobin A1c Lab Routine Controlled type 2 diabetes Expected: 01/30/2021 mellitus without complicatio n, (Approximate), Expires: unspecified whether long ter m 08/01/2021 insulin use Scheduled Procedures Name Priority Associated Diagnoses Date/Time [...] Priority Date/Time Associated Diagnosis Comme nts HC URINALYSIS ROUTINE Routine 01/30/2021 4:48 PM Dysuria Results for this EDT procedure are i n the results section. HC VENIPUNCTURE Routine 01/30/2021 4:48 PM Vitamin D deficienc y Results for this EDT procedure are i n the results section. HC VITAMIN D TOTAL-25 Routine 01/30/2021 4:48 PM Vitamin D def iciency Results for this HYDROXY EDT procedure are i n the results section. HC URINE CULTURE Routine 01/30/2021 4:48 PM Dysuria Resul ts for this EDT procedure are i n the results section. HC THYROID Routine 01/30/2021 4:48 PM Hypothyroidism, Result s for this STIMULATING HORMONE, EDT unspecified type pro cedure are in SERUM the results section. HC HEMOGLOBIN A1C STAT 01/30/2021 4:48 PM Controlled type 2 Results for this EDT diabetes mellitus procedure are in without the results complication, section. unspecified whether penitentiary insulin use documented in this encounter Results (ABNORMAL) Hemoglobin A1c (01/30/2021 4:48 PM EDT) [facility] Method Time Signature Hemoglobin A1C 11.6 (H) 4.3 - 5.6 [facility] Comment: Reference Range: 4.3 [...] Mellitus, Diabetes Care 2013; 36: Suppl. 1, S67-41 Est Avg Gluc 288 mg/dL [facility] Comment: eAG equivalents for HbA1c percentages: HbA1c(%) ?eAG(mg/dL) 6.0 ?126 6.5 ?140 7.0 ?154 7.5 ?169 8.0 ?183 8.5 ?197 9.0 ?212 9.5 ?226 10.0 ? 240 Limitations: The eAG calculation has not been validated on women, individuals below 18 years old and above 70 years old, and individuals with hemoglobinopathies. Additional resources are available on [facility] website. Steve CHAO, Bhumi J, Kay R, et al. ??Tr anslating the A1C assay into estimated average glucose values. ??Diabetes Care 2008:31(8):0781-5586. Specimen Anatomical Collection Method Collection Time Receive d Time (Source) Location / / Volume Laterality Blood specimen 01/30/2021 4:48 PM 021 4:55 (specimen) EDT PM EDT Resulting Agency Comment Spec In Lab Tom Hay MD CHEMISTRY ORDERABLES Performing Organization Address City/State/ZIP Code Phon e Number [place] [phone] (ABNORMAL) _Urinalysis with microscopic (01/30/2021 4:48 PM EDT) [facility] Method Time Signature Glucose UA >=1000 Negative [facility] (Critical) mg/dL [facility] Comment: Urinalysis result NOT critical without a combination of Glucose greater than or equal to 500 mg/dL AND Ketones greate r than or equal to 80 mg/dL Protein UA Negative Negative mg/dL [facility] Bilirubin UA Negative Negative mg/dL [facility] Comment: Clinical correlation required for positi ve Urine Bilirubin results as false positive may occur with some drugs and d rug related products. If a false positive is suspected a serum total bili nielsen should be considered if clinically indicated. Urobilinogen UA Normal Normal mg/dL [facility] pH UA 6.5 5.0 - 8.0 [facility] Blood UA Small (A) Negative mg/dL [facility] Ketones UA Trace (A) Negative mg/dL [facility] Nitrite UA Negative Negative [facility] Leukocytes UA Negative Negative [facility] Appearance UA Cloudy (A) Clear [facility] Spec [place] UA >=1.030 (A) 1.006 - 1.030 [facility] Color UA Yellow Yellow [facility] RBC UA 9 (H) 0 - 4 /HPF [facility] WBC UA 14 (H) 0 - 5 /HPF [facility] Bacteria UA Many (A) None /HPF [facility] Squam Epith UA 15 (H) <=4 /HPF [facility] Hyaline Cast UA 1 0 - 2 /LPF [facility] Specimen Anatomical Collection Method Collection Time Receive d Time (Source) Location / / Volume Laterality Urine specimen 01/30/2021 4:48 PM 021 4:54 (specimen) EDT PM EDT Resulting Agency Comment Spec In Lab Tom Hay MD URINE ORDERABLES Performing Organization Address City/[facility]/[place] [address] (ABNORMAL) Urine culture Clean Catch Urine (01/30/2021 4:48 PM EDT) Component Value Ref Test Analysis Performed At Patholo gist Range Method Time Signature Urine Culture 10,000-49,000 cfu/ml mixed m ucosal zeferino including 1,000-9,000 cfu/ml UMRRAY Staphylococcus aureus [facility] Note: Culture shows multiple bacterial species suggesting [facility] contamination. If symptoms c ontinue to indicate urinary tract infection, submit HOSPITAL a new specimen. LABORATORY (A) Organism Staphylococcus MURRAY aureus (A) [facility] Specimen (Source) Anatomical Collection Method Collection Time Re ceived Time Location / / Volume Laterality Urine specimen 01/30/2021 4:48 01/30/2021 5:49 obtained by clean PM EDT PM EDT catch procedure (specimen) Resulting Agency Comment Spec In Lab Tom Hay MD MICROBIOLOGY - GENERAL ORDER NERIS Performing Organization Address City/[facility]/[place] [address] Tissue transglutaminase, IgA (01/30/2021 4:48 PM EDT) P athologist Signature TTG IgA Ab 0.6 0.1 - 10.0 MURRAY CHANDA u/ml [facility] Comment: Negative = <7 U/mL Equivocal = 7-10 U/mL Positive = >10 U/mL Specimen Anatomical Collection Method Collection Time Receive d Time (Source) Location / / Volume Laterality Blood specimen 01/30/2021 4:48 PM 021 7:16 (specimen) EDT AM EDT Resulting Agency Comment Spec In Lab Tom Hay MD IMMUNOLOGY ORDERABLES Performing Organization Address City/State/[place] [address] (ABNORMAL) Vitamin D, 25-Hydroxy (01/30/2021 4:48 PM EDT) Patholo gist Method Time Signature 25-OH Vit D 13 (L) 21 - 100 [facility] Total ng/mL [facility] 25-OH Vit D Deficient [facility]ORATORY Specimen Anatomical Collection Method Collection Time Receive d Time (Source) Location / / Volume Laterality Blood specimen 01/30/2021 4:48 PM 021 4:54 (specimen) EDT PM EDT Resulting Agency Comment Spec In Lab Tom Hay MD CHEMISTRY ORDERABLES Performing Organization Address City/[facility]/[place] [address] TSH (01/30/2021 4:48 PM EDT) P athologist Signature TSH 1.80 0.27 - 4.20 [facility] CHANDA mcIU/mL [facility] Specimen Anatomical Collection Method Collection Time Receive d Time (Source) Location / / Volume Laterality Blood specimen 01/30/2021 4:48 PM 021 4:55 (specimen) EDT PM EDT Resulting Agency Comment Spec In Lab Tom Hay MD CHEMISTRY ORDERABLES Performing Organization Address City/State/[place] [address] documented in this encounter Visit Diagnoses Diagnosis Controlled type 2 diabetes mellitus with out complication, unspecified whether long lines operator insulin use Essential hypertension Unspecified essential hypertension Hypothyroidism, unspecified type Vitamin D deficiency Unspecified vitamin D deficiency Chronic obstructive pulmonary disease wi th acute exacerbation Obstructive chronic bronchitis with exac erbation Dysuria documented in this encounter Care Teams Impregnator Electrolytic Capacitors Relationship Specialty Start Date End Date Tom Hay MD PCP - General General Internal Medicine 09/15/18 [facility] GENERAL INTERNAL [facility] [place] [address] documented as of this encounter
--- OUTSIDE RECORDS SUMMARY | 2022-07-12 00:46 | XMS_ITS | Encounter Summary ---
:1965 [place] [address] Care Team Providers Name Role Phone Tom Hay MD Primary Care Provider Encounter Details Date Type Department Care Team Description 12/26/2020 [facility] PLASTICS FITTER [facility] [place] [address] Social History Tobacco Use Types Packs/Day [...] this encounter Miscellaneous Notes Telephone Encounter - Tabatha Jacobson LPN - 12/26/2020 8:49 AM EDT All office notes, script for DM shoes and demographics sent to [facility] for DM shoes. This is the second time faxed to their office. Tabatha Jacobson LPN documented in this encounter Plan of Treatment Upcoming Encounters Date Type Specialty Care Team Description 08/06/2022 Office Visit Plastic Surgery Peña Woodward MD [facility] PLASTIC SURGERY [place] [phone] (Flores ordonez) 08/19/2022 Office Visit Podiatry Tom Titus DPM [place], [place] [address] (Wo rk) 09/08/2022 Office Visit Internal Medicine Janay Hay MD [facility] GENERAL INTERNAL MEDICINE [place], [place] [address] (Wo josé luis) 10/12/2059 Hospital Encounter Surgery Jim Hanley MD [facility] SPINE CENTER [place], [place] [address] (Wo josé luis) Scheduled Procedures Name Priority [...] on filedocumented in this encounter Care Teams Finished Garment Inspector Relationship Specialty Start Date End Date Tom Hay MD PCP - General General Internal Medicine 09/15/18 [facility] GENERAL [place] [address] documented as of this encounter
--- OUTSIDE RECORDS SUMMARY | 2022-07-12 00:46 | XMS_ITS | Encounter Summary ---
:1965 Author Organization [facility] [place] [address] Care Team Providers Name Role Phone Tom Hay MD Primary Care Provider Reason for Visit Reason Comments Plantar Warts Consultation (Routine) - Closed Specialty Diagnoses / Procedures Referred By Contact Refer red To Contact Podiatry Diagnoses Plantar wart Tom Hay MD [facility] Podiatry [facility] [place] [address] [place] [address] Referral ID Status Reason Start Date Expiration Date Visits V isits Requested Authorized [id number] Closed Specialty 10/26/2020 10/26/2021 1 1 Service Requested Encounter Details Date Type Department Care Team Description 12/19/2020 Office Visit Podiatry at [facility] Esme Edwards, [place] Foreign body in right foot, initial enco unter; [facility] Gala ntar wart; [facility] Right foot pain; [place] [phone] Type 2 diabetes mellitus with peripheral neuropathy; [id number] Pre-ulcerative calluses Social History Tobacco Use Types Packs/Day Years [...] encounter Progress Notes Esme Edwards DPM - 12/19/2020 2:30 PM EST Outpatient Foot Care Clinic Note Name: Joseline Rose Age:55 y.o. MR#: [id number] Date of Service: 12/19/2020 SUBJECTIVE: Joseline Rose is a 55 y.o. female diabetic who presents to the clinic today with chief complaint of painful right foot at two separate sites. Reports discomfort began several months ago. Relates wart at one site for which she has tried ahxx-xyh-psnpxha Compound W and salicylic acid pads without relief. Denies any prescription topicals. Also relates painful area on bottom of right foot where she may have stepped on something. Rates pain as being 7/10 right foot. Denies any pain or discomfort left foot. Denies regular diabetic foot exams. Reports chronic numbness and sensory changes in both feet, right greater than left. No other pedal complaints. No constitutional symptoms reported. Allergies Allergen Reactions [...] Strain: ??? Difficulty of Paying Living Expenses: Not on file Food Insecurity: ??? Worried About Running Out of Food in the Last Year: Not on file ??? Ran Out of Food in the Last Year: Not on file Transportation Needs: ??? Lack of Transportation (Medical): Not on file ??? Lack of Transportation (Non-Medical): Not on file Physical Activity: ??? Days of Exercise per Week: Not on file ??? Minutes of Exercise per Session: Not on file Family History Problem Relation Age of Onset [...] to Visit Medication Sig Dispense Refill ??? oxyCODONE (Roxicodone) 5 mg Tablet 1 tabs Q 4-6 hours as needed for pain. 42 tablet 0 ??? acetaminophen (Tylenol) 500 mg Tablet Take 2 tablets by mouth every 8 hours. 30 tablet 0 ??? senna-docusate (Pericolace) 8.6-50 mg Tablet Take 2 tablets by mouth 2 times daily as needed forConstipation for up to 30 days. 60 tablet 0 ??? polyethylene glycoL (Miralax) 17 gram/dose Powder Take 17 g by mouth 2 times daily as needed forup to 30 days. 255 g 0 ??? valACYclovir (VALTREX) 1 gram Tablet Take 1 tablet by mouth 2 times daily. 30 tablet 3 ??? methocarbamoL (ROBAXIN) 750 mg Tablet Take 1 tablet by mouth 3 times daily as needed. 30 tablet 0 ??? blood sugar diagnostic strips Strip Use as instructed to check BG 4 times daily. (Freestyle Lite)DX code E11.9 IDD 300 each 3 ??? qrcnwyloiyk-tsobpmoig-spjbzzsw (Trelegy Ellipta) 100-62.5-25 mcg Disk with Device Inhale 1 Inhalation into the lungs daily. 60 each 3 ??? Crystal Pen Needle 32 gauge x 5/32 Needle Inject 1 each subcutaneously 4 times daily. 400 each 3 ??? pen needle, diabetic (NovoTwist) 32 gauge x 1/5 Needle 1 each by Misc.(Non- Drug; Combo Route) route 4 times daily [...] blood-glucose meter (FREESTYLE) Kit 1 each by [facility].(Non-Drug; Combo Route) route as needed [...] 0 ??? lancets (FreeStyle Lancets) 28 gauge [facility] Dx E11.9 IDD please test 4x/day with [...] Nausea. 20 tablet 3 ??? vitamin with lviafira-Kd-Suih-FA Tablet Take 1 tablet by mouth daily. ??? metroNIDAZOLE (METROCREAM) 0.75 % Cream Apply topically 2 times daily. 45 g 5 ??? fluticasone (VERAMYST) 27.5 mcg/actuation [place], Suspension 2 sprays by Nasal route daily. Indications: Allergic Rhinitis ??? ALPRAZolam (XANAX) 1 mg tablet Take 1 mg by mouth 3 times daily as needed. ??? aripiprazole (ABILIFY) 30 mg tablet Take 30 mg by mouth daily. No current facility-administered medications on file prior to visit. ROS: MSK: + Foot pain SKIN: + wart The remainder of 10 ROS were reviewed and negative. OBJECTIVE: GEN: Patient is in no acute distress and AAOX3. Gait stable and non-antalgic. DERM: Skin xerotic with foreign body noted to right plantar midfoot measuring approximately 0.5 cm in length upon removal. Underlying and surrounding skin healthy with no signs of infection. No underlying abscess. No erythema. No increased warmth. No fluctuance. No proximal streaking. No drainage. Hype rkeratotic lesion with verrucous plaque and petechial bleeding noted right plantar forefoot fifth metatarsal head. Mild hyperkeratosis noted to bilateral hallux medial margins. Nails dystrophic, well trimmed, stable with no signs of infection. VASC: Dorsalis pedis + 2/4 bilaterally and posterior tibial pulse + 2/4 bilaterally. Capillary refill 3 seconds to all digits. No significant edema noted. No varicose veins. No claudication, no rest pain, no color changes. Posterior calves soft and nontender. NEURO: [place] Viri monofilament testing 7 out of 10. + Sensory changes consistent with peripheral neuropathy. Epicritic sensation intact to light touch bilaterally. MSK: Tenderness on exam site of foreign body and plantar wart right plantar foot. Ambulatory. ASSESSMENT: Foreign body right foot causing discomfort Painful plantar wart right foot Type 2 diabetes mellitus with peripheral neuropathy PLAN: Patient evaluated with condition and treatment options for management discussed at length. Diabetic foot exam performed. Order placed for diabetic accommodative shoes and inserts. Following applicationof 2% lidocaine jelly and patient's verbal consent removed foreign body right foot subcutaneous layer using sterile #15 scalpel and forceps. Appears to be a thin wire. No residual foreign body appreciated. Underlying tissue healthy with no signs of infection. Covered with topical antibiotic and Band-Aid. Post removal instructions reviewed with patient. Signs and symptoms of infection reviewed. If anyworsening seek prior medical care and contact clinic directly. Discussed treatment options for plantar wart. Efudex 5% topical prescribed to patient's pharmacy. Proper use reviewed at length. Patient to trial topical for next 2 weeks. If any worsening or irritation discontinue use. Continue strict glucose control, daily foot inspection, avoidance of barefoot ambulation, supportiveshoe gear. All questions answered. Patient verbalized understanding of all instructions. FOLLOW UP: 4 weeks or sooner if any concerns or changes arise Esme Edwards DPM [place] documented in this encounter Plan of Treatment Upcoming Encounters Date Type Specialty Care Team Description 08/06/2022 Office Visit Plastic Surgery Peña Woodward MD [facility] PLASTIC SURGERY [place], [place] [address] (Flores ordonez) 08/19/2022 Office Visit Podiatry Tom Titus DPM [place], [place] [address] (Flores ordonez) 09/08/2022 Office Visit Internal Medicine Janay Hay MD [facility] GENERAL INTERNAL MEDICINE [place], [place] [address] (Wo rk) 10/12/2059 Hospital Encounter Surgery Jim Hanley MD [facility] SPINE CENTER [place], [place] [address] (Wo rk) Scheduled Procedures Name [...] as of this encounter Visit Diagnoses Diagnosis Foreign body in right foot, initial enco unter Plantar wart Right foot pain Pain in limb Type 2 diabetes mellitus with peripheral neuropathy Pre-ulcerative calluses Corns and callosities documented in this encounter Care Teams Adjunct History Instructor Relationship Specialty Start Date End Date Satnam, Tom D, MD PCP - General General Internal Medicine 09/15/18 [facility] GENERAL [place] [address] documented as of this encounter
--- OUTSIDE RECORDS SUMMARY | 2022-07-12 00:46 | XMS_ITS | Encounter Summary ---
:1965 Author Organization [facility] [place] [address] Care Team Providers Name Role Phone Tom Hay MD Primary Care Provider Reason for Visit Reason Onset Date Comments VNA Calls 12/11/2020 Encounter Details Date Type Department Care Team Description 12/11/2020 Telephone [place] [facility] [place]aila Monson VNA Calls [facility] [place] [phone] Social History Tobacco Use Types Packs/Day [...] this encounter Miscellaneous Notes Telephone Encounter - Gaby Pena RN - 12/11/2020 4:16 PM EST Spoke to Dania from [facility]. She reports [facility] started patient on Cephalexin 500mg PO QID for a UTI on 12/07. Patient has one day left of 4 day course, and reported to Dania that her symptoms are worse,. She continues with dysuria, itching, and odor. Dania left patient with a urine collection kit, and patient would like to drop off sample at lab at [facility] which is closest to her. She is requesting an order for UA be placed and faxed to [facility]. Will pend to provider for review. Telephone Encounter - Laila Monson - 12/11/2020 3:56 PM EST VNA or Hospice nurse calling from patients home: n Name of person calling[facility] Call back number: [phone] (shanique) Reason for call: [facility] in regards to her current UTI statin her antibiotic has one day left of mediation and her symptoms seem worse. Shanique gave the patient a specimen cup and is wondering if a drop off encounter can be placed, please call patient back to discuss further. Nurse Contacted via: Message: y Call: y Pager: n documented in this encounter Plan of Treatment Upcoming Encounters Date Type Specialty Care Team Description 08/06/2022 Office Visit Plastic Surgery Peña Woodward MD [facility] PLASTIC SURGERY [place], [place] [address] (Wo rk) 08/19/2022 Office Visit Podiatry Tom Titus DPM [place], [place] [address] (Wo rk) 09/08/2022 Office Visit Internal Medicine Janay Hay MD [facility] GENER[facility] INTERNAL MEDICINE [place], [place] [address] (Wo rk) 10/12/2059 Hospital Encounter Surgery Jim Hanley MD [facility] [place], [place] [address] (Wo rk) Scheduled Procedures Name [...] documented as of this encounter Results (ABNORMAL) Urine culture Clean Catch Urine (01/30/2021 4:48 PM EDT) Component Value Ref Test Analysis Performed At [facility] Range Method Time Signature Urine Culture 10,000-49,000 cfu/ml mixed m ucosal zeferino including 1,000-9,000 cfu/ml MURRAY Curtis aureus [facility] K Note: Culture shows multiple bacterial species suggesting [facility] contamination. If symptoms c ontinue to indicate urinary tract infection, submit HOSPITAL a new specimen. LABORATORY (A) Organism Staphylococcus MURRAY aureus (A) [facility] Specimen (Source) Anatomical Collection Method Collection Time Re ceived Time Location / / Volume Laterality Urine specimen 01/30/2021 4:48 01/30/2021 5:49 obtained by clean PM EDT PM EDT catch procedure (specimen) Resulting Agency Comment Spec In Lab Tom Hay MD MICROBIOLOGY - GENERAL ORDER NERIS Performing Organization Address City/State/ZIP Code Phon e Number [place] [phone] (ABNORMAL) _Urinalysis with microscopic (01/30/2021 4:48 PM EDT) [facility] Method Time Signature Glucose UA >=1000 Negative [facility] (Critical) mg/dL [facility] Comment: Urinalysis result NOT critical without a combination of Glucose greater than or equal to 500 mg/dL AND Ketones greate r than or equal to 80 mg/dL Protein UA Negative Negative mg/dL [facility] Bilirubin UA Negative Negative mg/dL [facility] Comment: Clinical correlation required for positi ve Urine Bilirubin results as false positive may occur with some drugs and d rug related products. If a false positive is suspected a serum total bili nielsen should be considered if clinically indicated. Urobilinogen UA Normal Normal mg/dL [facility] pH UA 6.5 5.0 - 8.0 [facility] Blood UA Small (A) Negative mg/dL [facility] Ketones UA Trace (A) Negative mg/dL [facility] Nitrite UA Negative Negative [facility] Leukocytes UA Negative Negative mcL [facility] Appearance UA Cloudy (A) Clear [facility] Spec [place] UA >=1.030 (A) 1.006 - 1.030 [facility] Color UA Yellow Yellow [facility] RBC UA 9 (H) 0 - 4 /HPF [facility] WBC UA 14 (H) 0 - 5 /HPF [facility] Bacteria UA Many (A) None /HPF [facility] Squam Epith UA 15 (H) <=4 /HPF [facility] Hyaline Cast UA 1 0 - 2 /LPF [facility] Specimen Anatomical Collection Method Collection Time Receive d Time (Source) Location / / Volume Laterality Urine specimen 01/30/2021 4:48 PM 021 4:54 (specimen) EDT PM EDT Resulting Agency Comment Spec In Lab Tom Hay MD URINE ORDERABLES Performing Organization Address City/State/[place] [address] documented in this encounter Visit Diagnoses Diagnosis Dysuria documented in this encounter Care Teams Home Therapy Teacher Relationship Specialty Start Date End Date Tom Hay MD PCP - General General Internal Medicine 09/15/18 [facility] [place] [address] documented as of this encounter
--- OUTSIDE RECORDS SUMMARY | 2022-07-12 00:46 | XMS_ITS | Encounter Summary ---
:1965 Author Organization [facility] [place] [address] Care Team Providers Name Role Phone Tom Hay MD Primary Care Provider Encounter Details Date Type Department Care Team Description 12/12/2020 Hospital Encounter XRay at [facility] Rashard Hanley Cervical spondylosis with my elopathy; 1 [facility] [address] Jensen MD DDD (degenerative disc disease), cervica l [facility] [id number] [place] [phone] [place] [address] Social History Tobacco Use Types Packs/Day Years [...] BG 4 times Controlled type 2 daily. (Capt'nSocialstyle diabetes mellitus without Lite)DX code E11.9 complication, unspecified IDD whether meterman insulin use Vitamin D 25 mcg (1,000 [...] 2 sprays by Nasal 0 27.5 mcg/actuation [place], route daily. SuspensionIndications: Indications: allergic rhinitis Allergic Rhinitis oxyCODONE (Roxicodone) 5 1 tabs Q 4-6 hours 42 tablet 0 12/2020 mg TabletIndications: H/O as needed for pain. 1 cervical spinal arthrodesis senna-docusate Take 2 tablets by 60 tablet 0 12/01/2020 (Pericolace) 8.6-50 mg mouth 2 times daily 1 Tablet as needed for Constipation for up to 30 days. polyethylene glycoL Take 17 g by mouth 2 255 g 0 2020 (Miralax) 17 gram/dose times daily as 1 Powder needed for up to 30 days. acetaminophen (Tylenol) Take 2 tablets by 30 tablet 0 12/01 500 mg Tablet mouth every 8 hours. 1 valACYclovir (VALTREX) 1 Take 1 tablet by 30 tablet 3 10/26 gram TabletIndications: mouth 2 times daily. 2 Oral lesion ogpafeiczyt-wzpcwikuq-pec Inhale 1 Inhalation 60 each 3 0 [...] vitamin with Take 1 tablet by 0 xhsgulbh-Pf-Zyxa-FA mouth daily. 2 Tablet metroNIDAZOLE Apply topically [...] Peña Woodward MD [facility] PLASTIC SURGERY [place], [place] [address] (Wo rk) 08/19/2022 Office Visit Podiatry Tom Titus DPM [place], [place] [address] (Wo rk) 09/08/2022 Office Visit Internal Medicine Janay Hay MD [facility] GENER[facility] INTERNAL MEDICINE [place], [place] [address] (Wo rk) 10/12/2059 Hospital Encounter Surgery Jim Hanley MD [facility] [place] [phone] ([facility]) Scheduled Procedures Name Priority Associated Diagnoses Date/Time [...] Comme nts XR CERVICAL SPINE 2 Routine 12/12/2020 11:24 AM Cervical spond ylosis Results for this OR 3 VIEWS EST with myelopathy procedure are in DDD (degenerative the result s disc disease), section. cervical documented in this encounter Results XR Cervical Spine 2 or 3 Views (12/12/2020 11:24 AM EST) Anatomical Region Laterality Modality C-spine N/A Digital Radiography Specimen (Source) Anatomical Location Collection Method / Collectio n Time Received Time / Laterality Volume Impressions 12/12/2020 11:40 AM EST Alignment of the cervical spine is unchanged. Thank you for letting us participate in the care of this patient. For questions regarding this report, please contact [facility] number below. ? Electronically signed by: Brooke Robertson, [facility] ([phone]), at 12/12/2020 11:40 AM Narrative 12/12/2020 11:40 AM EST EXAMINATION: XR CERVICAL SPINE 2 OR 3 VIEWS CLINICAL HISTORY: s/p surgery TECHNIQUE: Cervical spine AP, lateral and swimmer's COMPARISON: November 30, 2020 FINDINGS: The cervical spine is visualized down to the C5-C6 level in the lateral projection. There has been a C6 corpectomy, graft pl acement and ACDF at C5-C7. No hardware complication is noted. Anterolisthesis of C3 on C4 and C4 on C5 is unchanged since the previous study. The previously present drain has been re moved. Procedure Note Marco A Johnson MD - 12/12/2020 EXAMINATION: XR CERVICAL SPINE 2 OR 3 EWS CLINICAL HISTORY: s/p surgery TECHNIQUE: Cervical spine AP, lateral and swimmer's COMPARISON: November 30, 2020 FINDINGS: The cervical spine is visualized down to the C5-C6 level in the lateral projection. There has been a C6 corpectomy, graft pl acement and ACDF at C5-C7. No hardware complication is noted. Anterolisthesis of C3 on C4 and C4 on C5 is unchanged since the previous study. The previously present drain has been re moved. IMPRESSION Alignment of the cervical spine is uncha nged. Thank you for letting us participate in the care of this patient. For questions regarding this report, please contact e number below. Rashard Hanley MD IMG DX ORDERABLES documented in this encounter Visit Diagnoses Diagnosis Cervical spondylosis with myelopathy DDD (degenerative disc disease), cervica l Degeneration of cervical intervertebral disc documented in this encounter Care Teams Online Community Manager Relationship Specialty Start Date End Date Tom Hay MD PCP - General General Internal Medicine 09/15/18 [facility] [place] [address] documented as of this encounter
--- OUTSIDE RECORDS SUMMARY | 2022-07-12 00:47 | XMS_ITS | Encounter Summary ---
:1965 Author Organization [facility] [place] [address] Care Team Providers Name Role Phone Tom [...] Expiration Date Visits Requ ested Visits Authorized [id number] 1 1 Encounter Details Date Type Department Care Team Description 11/30/2020 Anesthesia Event Main Operating Room Gaby Tobin MD [facility] [place] [address] [facility] Evy Jiménez CRNA [facility] [place] [address] [facility] Kevin cast[address] [address] Anesthesia Record Procedure Summary Procedure Name Responsible Anesthesia Start Anesthesia Stop Time Anesthesiologist Time @ANTERIOR CX Gaby Connelly MD 11/30/20 1141 1617 CORPECTOMY, ONE LVL (WRVU 26.1) (Bilateral Neck) Events Date Time Event Comment 11/30/2020 1058 1141 AN Verify 1141 Start 1141 An Start Data 1150 An Induction 1151 An Intubation 1205 Anesthesia Ready 1206 Quick Note Soft bite block placed between molars on right side 1234 ABG Data Arterial Blood G as result: pH 7.347 pCO2 39.5 pO2 147.8 %O2 Sa t 96 FiO2 66 HCO3 21.2 BE -4.5 Hb 13.5 K 3 .66 Glucose 176 Lactate 2.04 1257 Quick Note Surgeon leaning on Arm with itzel 1314 Quick Note Manual recruitme nt breathe given 1318 Quick Note Frequent SSEP/ M EPs interrupting pulse ox and A-line 1328 Break/Relief In I assumed care f or Break Relief before which we: 1. Identifie d the patient 2. Identified the responsible provider(s) 3. Reviewed the pertinent medica l history 4. Discussed the surgical plan an d course 5. Reviewed intra-op anesthesia manag ement and issues during anesthesia 6. Se t expectations for the relief (and/or post-pro cedure) period 7. Allowed opportunity for questions and acknowledgement of understanding Debbie Lewis CRNA 1358 Break/Relief Out 1402 Quick Note Flows increased d/t CO2 absorber changed 1454 ABG Data Arterial Blood G as result: pH 7.407 pCO2 33.1 pO2 96.9 %O2 Sat 98 FiO2 53 HCO3 20.4 BE -4.3 Hb 12.7 K 3.47 G lucose 214 Lactate 1.81 1501 Break/Relief In I assumed care f or Break Relief before which we: 1. Identifie d the patient 2. Identified the responsible provider(s) 3. Reviewed the pertinent medica l history 4. Discussed the surgical plan an d course 5. Reviewed intra-op anesthesia manag ement and issues during anesthesia 6. Se t expectations for the relief (and/or post-pro cedure) period 7. Allowed opportunity for questions and acknowledgement of understanding Tanvi Rizzo Duane, INSURANCE CLAIMS ASSISTANT 1522 Break/Relief Out 1601 Extubation/LMA Out 1601 Quick Note Pt extubated radha ke and pulling adequate tidal volumes. Pt coug hima on extubation, but clearing secreti ons. TV> 400, RR even and unlaborred. Hype rtensive on extubation-treat ed with lopressor. VSS. 1603 an stop data 1603 Recovery or ICU Handoff Patient care was transferred to the destination unit staff after review of the patient's medica l history, current anesthetic/surgi estuardo status and plan, according to the Provider Handoff Checklist. 1617 Stop 1617 Quick Note Report handed of f to TERMITE EXTERMINATOR; pain management being addressed Name Total Midazolam 5 mg fentaNYL 200 mcg IV Lidocaine 100 mg Propofol 200 mg Ondansetron 4 mg Dexamethasone 4 mg REMIfentanil INF 3.41 mg Propofol INF 2,745.94 mg ceFAZolin 2 g tranexamic acid (Cyklokapron) 1,328 mg in sodium chlor manuel 0.9% 113.28 mL 1,326.13 mg infusion tranexamic acid (Cyklokapron) 1,000 mg in sodium chlor manuel 0.9% 110 mL 337.78 mg infusion PHENYLephrine INF 1,020 mcg Insulin Regular Human 2 Units meTOPROLOL (LOPRESSOR) injection 2 mg lactated ringers infusion 1,800 mL Lactated Ringers 600 mL Agents Name O2 Air N2O Sevoflurane (et) Blood No blood administrations on file. Lines, Drains, and Airways Type Details Placement Removal Drain/Device Site 11/30/20; 1500; midline; 11/30/20 1500 by neck Charlotte Stacy, RN Incision 07/27/15; abdomen; 07/27/15 0000 by 02/13/21 000 0 by laparoscopic punctures Emmanuelle Wright [place], (specify) (multiple RN Johana Polanco trocar sites. ); LDA not present upon assessment; 02/13/21 ETT ETT Type: Cuffed, NIM; 11/30/20 1151 by 11/30/20 1601 by ETT Size: 7 mm; Evy Jiménez CRNA Patel, Ngozi Edgar, Indirect:Video; Notes: INSURANCE CLAIMS ASSISTANT Asleep, Stylette; Attempts: 1; Laryngoscopy Grade: 1; ETT Placement Verified By: Auscultation, Capnometry; Inserted by: TOD Willis Urethral Catheter 11/30/20; 1159; (temp 11/30/20 1159 by 1 0604 by wolfe); 100% silicone; Geneva Lopez, RN Alena Montano, 16; inserted at this [facility] facility; 1; 10; 10; none; leg bag to dependent drainage; 12/01/20; 0604 Arterial Line 11/30/20; 1200; radial 11/30/20 1200 by 11/30/20 1825 by artery; 20 gauge; Evy Jiménez CRNA Ufford, Lindsay D, Chaimberg, MD ; Sterile RN Prep, Sterile Gloves; no longer indicated, removed per policy; 11/30/20; 1825 PIV 11/30/20; 1202; median 11/30/20 1202 by 12/01/20 1637 by vein (underside of arm), Evy Jiménez, Danielle Shannon, left; [id number] [facility] catheter system; 18 gauge; TOD Willis ; 1; metacarpal vein (top of hand), left; 12/01/20; 1637 Incision 11/30/20; 1317; cervical 11/30/20 1317 by 1715 by spine; 06/09/22 (LDA Devante Beyer, Kimberly Sultana L cleanup utility [id number]); RN 1710 ([facility] cleanup utility RA#[id number]) documented in this encounter Social History Tobacco Use Types Packs/Day Years [...] on file documented as of this encounter OR Notes Anesthesia Postprocedure Evaluation - Gaby Connelly MD - 11/30/2020 4:47 PM EST Department of Anesthesiology Post-procedure Note Patient: Joseline Rose Procedure Summary Date: 11/30/20 Room / Location: [facility] OR [facility] MAIN OR Anesthesia Start: 1141 Anesthesia Stop: 1617 Procedures: @ANTERIOR CX CORPECTOMY, ONE LVL (WRVU 26.1) (Bilateral Neck) ANT. SPINAL INSTRUMENTATION, 2-3 VERTEBRA, SEGMENTED (WRVU 11.94) (Bilateral Neck) PLACEMENT-CRANIAL TONGS (INCLUDING REMOVAL) (WRVU 4) (Bilateral Spine Cervical) INSERTION INTERVERTEBRAL BIOMECH DEV TO VERTEBRAL CORPECTOMY DEFECT, EA CONTIGUOUS DEFECT (WRVU 5.5) (Bilateral ) ANT. CX. FUSION INCLUD. MIN. DISCECTOMY; BELOW C2 (WRVU 17.69) (Bilateral Neck) ANT. FUSION, INCLUDE. MIN. DISCECTOMY; EA. ADD'L LVL (WRVU 5.52) (Bilateral ) MODIFIER GLOBUS PROVIDENCE (Bilateral ) MODIFIER C5 (Bilateral ) MODIFIER C6 (Bilateral ) MODIFIER C7 (Bilateral ) Diagnosis: Cervical spondylosis with myelopathy DDD (degenerative disc disease), cervical (Cervical myeloradiculopathy progressive) Surgeons: Rashard Hanley MD Responsible Provider: Gaby Connelly MD Anesthesia Type: general ASA Status: 3 All Anesthesia Providers: Anesthesiologist: Gaby Connelly MD INSURANCE CLAIMS ASSISTANT: Evy Jiménez CRNA Vitals Value Taken Time BP 146/78 11/30/20 1645 Temp Pulse 74 11/30/20 1647 Resp 14 11/30/20 1647 SpO2 98 % 11/30/20 1647 Pain Level 10 11/30/20 1618 Vitals shown include unvalidated device data. Patient Location: PACU/[facility] Level of Consciousness: Awake and Alert Pain Management: Satisfactory Analgesia PONV: None Cardiovascular Status: At Baseline and Hemodynamically Stable Respiratory Status: At Baseline and Supplemental O2 (NC or FM) Postoperative Fluid Status: Intravascular EUvolemia Possible Anesthetic Complications: NONE apparent at time of evaluation Final Primary Anesthesia Type: General (The anesthetic type performed was the same as planned.) Comments: Sleepy but c/o pain when awakened, IV dilaudid given to good effect. No intraop awareness,does not remember extubation (a preop concern of hers based on prior experience). No apparent anesthetic complications GABY CONNELLY MD Anesthesia Preprocedure Evaluation - Gaby Connelly MD - 11/30/2020 10:54 AM EST Pre-Anesthesia Evaluation for: Joseline Rose a 55 y.o. female. Procedure(s): @ANTERIOR CX CORPECTOMY, ONE LVL (WRVU [...] PROVIDENCE MODIFIER C5 MODIFIER C6 MODIFIER C7 Patient Active Problem List Diagnosis ??? COPD (chronic obstructive pulmonary disease) ??? Bipolar II disorder ??? Vitamin D deficiency ??? Essential hypertension ??? Hyperlipidemia ??? Uncontrolled type 2 diabetes mellitus with hyperglycemia ??? Asthma ??? Hypothyroid ??? Depression ??? Sleep apnea ??? Mild cognitive impairment, so stated ??? DDD (degenerative disc disease), cervical ??? Dermatofibroma ??? GERD (gastroesophageal reflux disease) [...] Cervical radicular pain ??? Bilateral shoulder pain With 2 surgeries for left ??? Carpal tunnel syndrome on both sides ??? Cervical spondylosis with myelopathy Added automatically from request for surgery [id number] ??? Colon polyp Small- on scope 2014- ? pathology ??? Schizoaffective disorder ??? Fibromyalgia Past Medical History: Diagnosis Date ??? Allergy [...] ??? ORTHOPEDIC SURGERY left elbow ??? PRO LAP, CHOLECYSTECTOMY N/A 07/27/2015 LAPAROSCOPIC CHOLECYSTECTOMY performed by Fabricio Grant MD at [facility] MAIN OR Social History Tobacco Use ??? Smoking status: Current Every Day Smoker Packs/day: 0.50 Years: 13.00 Pack years: 6.50 Types: Cigarettes ??? Smokeless tobacco: Never Used Substance Use Topics ??? Alcohol use: No Alcohol/week: 0.0 standard drinks Social History Substance and Sexual Activity Drug Use Yes ??? Types: Marijuana Comment: has medical marijuana card Allergies Allergen Reactions ??? Metformin Nausea And Vomiting ??? Clonidine (Pf) Other (See Comments) olea johnsons syndrome ??? Codeine Itching and Nausea Only ??? Methadone Nausea And Vomiting Had trouble walking and talking after taking for a few days Medications: MAR and/or home medications have been reviewed. Physical Exam: Patient Vitals for the past 24 hrs: Temp Pulse Resp BP SpO2 O2 Device 11/30/20 1003 36.8 ??C (98.2 ??F) (!) 101 18 (!) 139/94 97 % RA Body mass index is 33.28 kg/m??. 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 Notable past medical hx includes SEB (no longer on CPAP due to intolerance), poorly controlled diabetes, severe anxiety disorder (on Xanax TID times 20 years). Discussed risks/benefits GAETT with NIM tube, arterial line Informed Consent: Anesthetic plan and risks discussed with patient. Use of blood products discussed with patient who. Plan discussed with INSURANCE CLAIMS ASSISTANT. PAT Clinic Note documented in this encounter Plan of Treatment Upcoming Encounters Date Type Specialty Care Team Description 08/06/2022 Office Visit Plastic Surgery Peña Woodward MD [facility] PLASTIC SURGERY [place], [place] [address] ([facility]) 08/19/2022 Office Visit Podiatry Tom Titus DPM [place], [place] [address] ([facility]) 09/08/2022 Office Visit Internal Medicine Janay Hay MD [facility] GENERAL INTERNAL MEDICINE [place], [place] [address] ([facility]) 10/12/2059 Hospital Encounter Surgery Jim Hanley MD [facility] SPINE CENTER [place], [place] [address] ([facility]) Scheduled Procedures Name [...] Diagnoses Not on filedocumented in this encounter Administered Medications Inactive Administered Medications - up to 3 most recent administrations Medication Order MAR Action Action Date Dose Rate Site ceFAZolin (Ancef) 1 g in dextrose Given 11/30/2020 12:25 PM EST 2 g 5% 50 mL infusion Intravenous, PRN, Starting on Thu11/30/20 at 1225, Until Thu11/30/20 at 1617, Administer over 30 Minutes, Anesthesia Intra-op dexamethasone (Decadron) injection Given 11/30/2020 11:52 AM EST 4 mg Intravenous, PRN, Starting on Thu11/30/20 at 1152, Until Thu11/30/20 at 1617, Anesthesia Intra-op, Routine fentaNYL (pf) (50 mcg/mL) multi-dose Given 11/30/2020 11:[address] 100 mcg injection Intravenous, PRN, Starting on Thu11/30/20 at 1150, Until Thu11/30/20 at 1617, Anesthesia Intra-op, Routine Given 11/30/2020 11:50 AM EST 100 mcg insulin regular (HumuLIN R,NovoLIN R) (100 Given 11/30/2020 3:27 PM EST 2 Units unit/mL) injection vial Intravenous, PRN, Starting on Thu11/30/20 at 1527, Until Thu11/30/20 at 1617, Anesthesia Intra-op, Routine lactated ringers infusion New Bag 11/30/2020 3:41 PM EST 1,000 mL, at 100 mL/hr, Intravenous, CONTINUOUS, Starting on Thu11/30/20 at 1115, Until Thu11/30/20 at 1649, Day of Surgery (Day of Procedure) New Bag 11/30/2020 11:40 AM EST lactated ringers infusion New Bag 11/30/2020 12:06 PM EST Intravenous, CONTINUOUS PRN, Starting on Thu11/30/20 at 1206, Until Thu11/30/20 at 1617, Anesthesia Intra-op lidocaine (pf) (Xylocaine) (20 mg/mL) 2% Given 11/30/2020 11:59 AM EST 100 mg injection syringe Intravenous, PRN, Starting on Thu11/30/20 at 1159, Until Thu11/30/20 at 1617, Anesthesia Intra-op, Routine metoprolol (LOPRESSOR) injection Given 11/30/2020 3:57 PM EST 2 mg Intravenous, PRN, Starting on Thu11/30/20 at 1557, Until Thu11/30/20 at 1620, Anesthesia Intra-op, Routine midazolam (pf) (Versed) (1 mg/mL) multi-dose Given 11/30/2020 3: 38 PM EST 1 mg injection Intravenous, PRN, Starting on Thu11/30/20 at 1140, Until Thu11/30/20 at 1617, Anesthesia Intra-op, Routine Given 11/30/2020 11:47 AM EST 2 mg Given 11/30/2020 11:40 AM EST 2 mg ondansetron (pf) (Zofran) (2 mg/mL) inje ction Given 11/30/2020 3:38 PM EST 4 mg Intravenous, PRN, Starting on Thu11/30/20 at 1538, Until Thu11/30/20 at 1617, Anesthesia Intra-op, Routine PHENYLephrine (Timoteo-Synephrine) (80 New Bag 11/30/2020 12:11 PM 20 mcg/min 15 mL/hr mcg/mL) in sodium chloride 0.9% EST 250 mL infusion Intravenous, CONTINUOUS PRN, Starting on Thu11/30/20 at 1211, Until Thu11/30/20 at 1617, Anesthesia Intra-op, Routine propofoL (Diprivan) 10 mg/mL bolus injection Given 11:50 AM EST 200 mg (Anesthesia) Intravenous, PRN, Starting on Thu11/30/20 at 1150, Until Thu11/30/20 at 1617, Anesthesia Intra-op propofoL (Diprivan) infusion Rate/Dose 11/30/2020 2:37 175 mcg/kg/min 95.235 Intravenous, CONTINUOUS PRN, Change PM EST mL/hr Starting on Thu11/30/20 at 1254, Until Thu11/30/20 at 1617, Anesthesia Intra-op, Routine New Bag 11/30/2020 1:05 PM EST 150 mcg/kg/min 81.63 mL/hr New Bag 11/30/2020 12:07 PM EST 100 mcg/kg/min 54.42 mL/hr remifentaniL (Ultiva) (0.02 Rate/Dose 11/30/2020 3:32 0.1 mcg/kg/min 27.21 mg/mL) infusion (Anesthesia) Change PM EST mL/hr Intravenous, CONTINUOUS PRN, Starting on Thu11/30/20 at 1158, Until Thu11/30/20 at 1617, Anesthesia Intra-op Rate/Dose Change 11/30/2020 1:19 PM EST 0.2 mcg/kg/min 54.42 mL/hr Rate/Dose Change 11/30/2020 1:06 PM EST 0.2 mcg/kg/min 54.42 mL/hr tranexamic acid New Bag 11/30/2020 12:28 PM EST 1 mg/kg/hr 9.735 m L/hr (Cyklokapron) 1,000 mg in sodium chloride 0.9% 110 mL infusion 1 mg/kg/hr ? 88.5 kg (9.735 mL/hr, rounded to 9.7 mL/hr), Intravenous, CONTINUOUS, Starting on Thu11/30/20 at 1030, Until Thu11/30/20 at 1649, Day of Surgery (Day of Procedure) tranexamic acid New Bag 11/30/2020 11:52 AM 29.969 mg/kg/hr 226.23 7 mL/hr (Cyklokapron) 1,328 mg in EST sodium chloride 0.9% 113.28 mL infusion 1,328 mg (rounded from 1,327.5 mg = 15 mg/kg/dose ? 88.5 kg), Intravenous, ONCE, 1 dose, On Thu11/30/20 at 1030, Administer over 30 Minutes, Day of Surgery (Day of Procedure) documented in this encounter Care Teams Content Writer Relationship Specialty Start Date End Date Tom Hay MD PCP - General General Internal Medicine 09/15/18 [facility] [place] [address] documented as of this encounter
--- OUTSIDE RECORDS SUMMARY | 2022-07-12 00:47 | XMS_ITS | Encounter Summary ---
:1965 Author Organization [facility] [place] [address] Care Team Providers Name Role Phone Tom Hay MD Primary Care Provider Reason for Referral Consultation (Routine) - Closed Specialty Diagnoses / Procedures Referred By Contact Refer red To Contact Podiatry Diagnoses Plantar Tom Devries MD [facility] [place] [address] [place] [address] Referral ID Status Reason Start Date Expiration Date Visits V isits Requested Authorized [id number] Closed Specialty 10/26/2020 10/26/2021 1 1 Service Requested Consultation (Routine) - Specialty Diagnoses / Procedures Referred By Contact Refer red To Contact Ophthalmology Diagnoses Controlled type 2 diabetes mellitus without complication, unspecified whether residential insulin use Tom Hay MD Jordan, Kelsey L, OD [facility] [place], [place] [address] [place] [address] Referral ID Status Reason Start Date Expiration Date Visits V isits Requested Authorized [id number] Consult, 10/26/2020 10/26/2021 1 1 Test & Treat Reason for Visit Reason Comments Annual Exam would like to go over result s. and freeze something off her foot. 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; Drive Chronic obstructive pulmonary disease [facility] acute exacerbation; [place], [place] GENERAL INTERNAL Scalp psori asis; [address] MEDICINE Vertigo; [phone] [place] [address] Psoriasis; [phone] (Wo rk) Essential hypertension; Bilateral dry eyes; Healthcare main tenance; Lung nodule; Adrenal nodule; Hypothyroidism, unspecified type; Plantar wart Social History Tobacco Use Types Packs/Day Years [...] Sign Reading Time Taken Comments Blood Pressure 136/86 10/26/2020 3:35 PM EST Pulse 99 10/26/2020 3:35 PM EST Temperature 36.9 ??C (98.5 ??F) 10/26/2020 3:35 PM EST Respiratory Rate 18 10/26/2020 3:35 PM EST Oxygen Saturation 100% 10/26/2020 3:35 PM EST Inhaled Oxygen Concentration - - Weight 92.5 kg (204 lb) 10/26/2020 3:35 PM EST with oziel es Height 165.1 cm (5' 5) 10/26/2020 3:35 PM EST pt repor jory Body Mass Index 33.95 10/26/2020 3:35 PM EST documented in this encounter Patient Instructions Patient InstructionsBraTom cantu MD - 10/26/2020 3:20 PM EST Stop montelukast- see if moods/dreams are better, or asthma worsens Get holter results from [place]. documented in this encounter Progress Notes Tom Hay MD - 10/26/2020 3:20 PM EST General Internal Medicine - Annual Wellness Visit Issues/HPI Joseline Rose is a 55 y.o. female here for comprehensive review. She has Asthma; Hypothyroid; Depression; Sleep apnea; Uncontrolled type 2 diabetes mellitus with hyperglycemia; COPD (chronic obstructive pulmonary disease); Bipolar II disorder; Vitamin D deficiency; Essential hypertension; and Hyperlipidemia on their pertinent problem list. FU from June- -DM- on semaglutide- off insulin- Still on glip- has had low sugars when not eating, and sometimes without missed meal. Has gained wt- not coming off again. -COPD- on Trelegy, ok- but snoring, occ wheezePFTs -thyroid -Cervical radic- MRI, saw spine- Has FU next week- plan is for surgery. Also- myelopathy- balance trouble. Lung and adrenal nodule at St 05/31 -Admitted to [place] -Still with palpitations- occ chest pain feels like anxiety mostly at rest. Had holter- [place].Had sx on it -SEB- says doesn't need CPAP -Bipolar, - seeing psych monthly -Sees MACHINE [facility]IP[facility]CM- 11/01 JEANMARIE Family History CAD- no Ca- mother with breast, nonmelanoma skin. 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 Cut out due to diabetes. Smokes MJ- medical; no other illicits. ?? Questionnaire myD-H Primary Care 09/18/2020 PROMIS 10-Health in general Poor PROMIS 10-Quality of life Fair PROMIS 10-Physical health Poor PROMIS 10-Mental health Good PROMIS 10-Satisfaction with social activities Poor PROMIS 10-Ability to carry out social activities Poor PROMIS 10-Ability to carry out physical activities A little PROMIS 10-Bothered by emotional problems Rarely PROMIS 10-Rate of fatigue Very Severe PROMIS 10-Rate of pain 8 PROMIS 10- Physical Health Score 23.5 PROMIS 10- Mental Health Score 38.8 REVIEW OF SYSTEMS 10/26/2020 Constitutional Weight loss, Weight gain, Fatigue, lack of energy, Hot flashes, Drowsiness, Pain Ear / nose / throat / mouth Hearing difficulty, Dry mouth, Mouth sores, Sore throat Eyes Blurry vision, Dry eyes Respiratory Wheezing, Cough Cardiovascular Fluttering heart beat (heart palpitations), Chest pain Gastrointestinal Trouble swallowing, Heartburn, indigestion, Diarrhea, Appetite problems, Other stomach, intestine, or bowel symptoms Skin, hair Dry skin Musculoskeletal Back pain, Joint pain, Reduced range of motion, Unable to walk/difficulty walking Neurological Balance difficulty, dizziness, Headaches, Muscular weakness, Other neurological symptoms Hematologic / Lymphatic None of the above Genitourinary Frequent urination No flowsheet data found. Breast Cancer Risk (EVELIO) Scores 10/26/2020 Lifetime Risk of Patient 0 Average Lifetime Risk 0 5-Year Risk of Patient 0 Average 5-Year Risk 0 Recommend Genetic Risk Assessment w/B-RST 0 (If meets USPSTF BRCA testing guideline) PHQ-9 QUESTIONNAIRE (AMB) 10/26/2020 PHQ - 9 Score (Clinic) - PHQ - 9 Score (Patient) 12 (Moderate Depression) Little interest or pleasure (Clinic) - Little interest or pleasure (Patient) Several days Down, depressed, hopeless (Clinic) - Down, depressed, hopeless (Patient) Several days Trouble sleeping (Clinic) - Trouble sleeping (Patient) Nearly every day Tired or no energy (Clinic) - Tired or no energy (Patient) Nearly every day Poor appetite or overeating (Clinic) - Poor appetite or overeating (Patient) Nearly every day Feeling like a failure (Clinic) - Feeling like a failure (Patient) Not at all Trouble concentrating (Clinic) - Trouble concentrating (Patient) Several days Moving or speaking slowly (Clinic) - Moving or speaking slowly (Patient) Not at all Would be better off (Clinic) - Would be better off (Patient) Not at all How difficult are the problems (Clinic) - estuardo Exam Vitals: 10/26/20 1535 BP: 136/86 BP Location (NBP): Left arm Patient Position: Sitting BP Cuff Sizes: Large Adult (32-43 cm) Pulse: 99 Resp: 18 Temp: 36.9 ??C (98.5 ??F) TempSrc: Oral SpO2: 100% Weight: 92.5 kg (204 lb) Height: 165.1 cm (5' 5) Body mass index is 33.95 kg/m??. Gen - No apparent distress HEENT - EOMI, PERRL, Oropharynx moist without lesions Neck - Full range of motion, no lymphadenopathy or thyromegaly Lungs - Clear to ascultation and percussion Heart - RRR, S1,S2, no murmur, gallop or rub Chest/Back - no spinal tenderness, no CVAT Abdomen - soft, nontender, no hepatosplenomegaly, masses or distention., normal active bowel sounds Extremities - No clubbing, cyanosis or edema Skin - no rashes, lesions, plaques or nodules Neurological-nonfocal Assessment and Plan 1. DM- chk A1c- hope to reduce or stop glip dep on results, referral to eye 2. COPD/asthma- quit smoking with chantix; try stopping montelukast, monitoring mood, dreams, asthma. 3. Lung and adrenal nodules- chk CT HCM-pvax, Tdap, flu shots, MG. Follow up- 3mo with labs documented in this encounter Plan of Treatment Upcoming Encounters Date Type Specialty Care Team Description 08/06/2022 Office Visit Plastic Surgery Peña Woodward MD [facility] PLASTIC SURGERY [place], [place] [address] (Wo rk) 08/19/2022 Office Visit Podiatry Tom Titus DPM [place], [place] [address] (Wo rk) 09/08/2022 Office Visit Internal Medicine Janay Hay MD [facility] GENERAL INTERNAL MEDICINE [place], [place] [address] (Wo rk) 10/12/2059 Hospital Encounter Surgery Jim Hanley MD 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 1, W86-82 Est Avg Gluc 288 mg/dL [facility] Comment: eAG equivalents for HbA1c percentages: HbA1c(%) ?eAG(mg/dL) 6.0 ?126 6.5 ?140 7.0 ?154 7.5 ?169 8.0 ?183 8.5 ?197 9.0 ?212 9.5 ?226 10.0 ? 240 Limitations: The eAG calculation has not been validated on women, individuals below 18 years old and above 70 years old, and individuals with hemoglobinopathies. Additional resources are available on [facility] website. Steve CHAO, Bhumi J, Kay R, et al. ??Tr anslating the A1C assay into estimated average glucose values. ??Diabetes Care 2008:31(8):1394-7092. Specimen Anatomical Collection Method Collection Time Receive d Time (Source) Location / / Volume Laterality Blood specimen 01/30/2021 4:48 PM 021 4:55 (specimen) EDT PM EDT Resulting Agency Comment Spec In Lab Tom Hay MD CHEMISTRY ORDERABLES Performing Organization Address City/[facility]/ZIP Code Phon e Number [address] TSH (11/22/2020 2:15 PM EST) P athologist Signature TSH 1.79 0.27 - 4.20 MURRAY ARMAS mcIU/mL [facility] Specimen Anatomical Collection Method Collection Time Receive d Time (Source) Location / / Volume Laterality Blood specimen 11/22/2020 2:15 PM 021 2:21 (specimen) EST PM EST Resulting Agency Comment Spec In Lab Tom Hay MD CHEMISTRY ORDERABLES Performing Organization Address City/[facility]/ZIP [facility] Phon e Number [address] TSH (10/29/2020 3:19 PM EST) P athologist Signature TSH 1.84 0.27 - 4.20 [facility] Specimen Anatomical Collection Method Collection Time Receive d Time (Source) Location / / Volume Laterality Blood specimen 10/29/2020 3:19 PM 021 3:32 (specimen) EST PM EST Resulting Agency Comment Spec In Lab Tom Hay MD CHEMISTRY ORDERABLES Performing Organization Address City/State/[place] [address] (ABNORMAL) Hemoglobin A1c (10/29/2020 3:19 PM EST) Analysis Performed At Patho logist Time Signature Hemoglobin A1C 7.7 (H) 4.3 - 5.6 [facility] Comment: Reference Range: 4.3 [...] Mellitus, Diabetes Care 2013; 36: Suppl. 1, F89-37 Est Avg Gluc 175 mg/[facility] Comment: eAG equivalents for HbA1c percentages: HbA1c(%) ?eAG(mg/dL) 6.0 ?126 6.5 ?140 7.0 ?154 7.5 ?169 8.0 ?183 8.5 ?197 9.0 ?212 9.5 ?226 10.0 ? 240 Limitations: The eAG calculation has not been validated on women, individuals below 18 years old and above 70 years old, and individuals with hemoglobinopathies. Additional resources are available on [facility] ADA website. Steve CHAO, Bhumi J, Kay R, et al. ??Tr anslating the A1C assay into estimated average glucose values. ??Diabetes Care 2008:31(8):2209-6531. Specimen Anatomical Collection Method Collection Time Receive d Time (Source) Location / / Volume Laterality Blood specimen 10/29/2020 3:19 PM 021 3:32 (specimen) EST PM EST Resulting Agency Comment Spec In Lab Tom Hay MD CHEMISTRY ORDERABLES Performing Organization Address City/State/[place] [address] (ABNORMAL) Comprehensive metabolic panel (non-fasting) (10/29/2020 3:19 PM EST) P athologist Signature Glucose Lvl 330 (H) 65 - 199 [facility] mg/dL [facility] Comment: Diabetes: >=200 mg/dL plus symp toms BUN 15 8 - 18 mg/dL [facility] Creatinine 0.82 0.70 - 1.20 mg/dL [facility] Sodium 136 135 - 145 mmol/L [facility] Potassium 4.1 3.5 - 5.0 mmol/L [facility] Comment: Please note: ??Patients with WBC >100,00 0 may have falsely elevated Potassium levels. ??For accurate Potassium quantif ication in these patients send serum separator tube (gold top) for subsequent determinations. ??Contact the Clinical Chemistry Laboratory if there are any qu estions. Chloride 100 98 - 107 mmol/L [facility] CO2 26 22 - 31 mmol/L [facility] Anion Gap 10 5 - 15 mmol/L [facility] Calcium 9.2 8.5 - 10.5 mg/dL [facility] Total Protein 6.7 6.1 - 8.0 gm/dL [facility] Albumin 4.0 3.2 - 5.2 gm/dL [facility] AST 10 0 - 30 unit/L [facility] ALT 11 0 - 30 unit/L [facility] Alk Phos 78 35 - 105 unit/L [facility] Total Bilirubin 0.2 0.2 - 1.3 mg/dL [facility] Estimated GFR 82 >=60 mL/min/1.73 m?? [facility] Comment: This patient? s estimated glomerular filtration rate (eGFR) is between 82 mL/min/1.73 m2 (patients with less muscl e mass) and 95 mL/min/1.73 m2 (patients with more muscle mass) as determined by the CKD-EPI equation. Assessment of eGFR is not appropriate when creatinine concentrations are rapidly changing. For clinical decisions where creatinine clearance will affect therapy, a 24-hour urine creatinine clearance may b e advised. Assignment of CKD stage 1 ? 5 for patients with an eGFR near the transition point between stages may be based on cli nical assessment of muscle mass and symptoms in addition to eGFR. Specimen Anatomical Collection Method Collection Time Receive d Time (Source) Location / / Volume Laterality Blood specimen 10/29/2020 3:19 PM 021 3:32 (specimen) EST PM EST Resulting Agency Comment Spec In Lab Tom Hay MD CHEMISTRY ORDERABLES Performing Organization Address City/State/[place] [address] documented in this encounter Visit Diagnoses Diagnosis Oral lesion Other and unspecified diseases of the or al soft tissues Cervical radicular pain Brachial neuritis or radiculitis nos Controlled type 2 diabetes mellitus with out complication, unspecified whether residential insulin use Chronic obstructive pulmonary disease wi th acute exacerbation Obstructive chronic bronchitis with exac erbation Scalp psoriasis Other psoriasis Vertigo Dizziness and giddiness Psoriasis Other psoriasis Essential hypertension Unspecified essential hypertension Bilateral dry eyes Tear film insufficiency, unspecified Healthcare maintenance Routine general medical examination at a health care facility Lung nodule Solitary pulmonary nodule Adrenal nodule Other specified disorders of adrenal gla nds Hypothyroidism, unspecified type Plantar wart documented in this encounter Care Teams Vmware Consultant Relationship Specialty Start Date End Date Tom Hay MD PCP - General General Internal Medicine 09/15/18 [facility] [place] [address] documented as of this encounter
--- OUTSIDE RECORDS SUMMARY | 2022-07-12 00:47 | XMS_ITS | Encounter Summary ---
:1965 [place] [address] Care Team Providers Name Role Phone Tom Hay MD Primary Care Provider Encounter Details Date Type Department Care Team Description 11/09/2020 Orders Only [facility] Gaby Garsia COV ID-[address] [facility], [place] [address] Social History Tobacco Use Types Packs/Day [...] Office Visit Plastic Surgery Peña Woodward MD [facility] PLASTIC SURGERY [place], [place] [address] (Wo rk) 08/19/2022 Office Visit Podiatry Tom Titus DPM [place] [phone] (Wo rk) 09/08/2022 Office Visit Internal Medicine Janay Hay MD [facility] GENERAL INTERNAL MEDICINE [place] [phone] (Wo rk) 10/12/2059 Hospital Encounter Surgery Jim Hanley MD [facility] SPINE CENTER [place], [place] [address] (Wo rk) Scheduled Procedures Name [...] as of this encounter Visit Diagnoses Diagnosis COVID-19 ruled out documented in this encounter Care Teams Boat Joiner Helper Relationship Specialty Start Date End Date Tom Hay MD PCP - General Internal Medicine 09/15/18 [facility] GENERAL [place] [address] documented as of this encounter
--- OUTSIDE RECORDS SUMMARY | 2022-07-12 00:47 | XMS_ITS | Encounter Summary ---
:1965 Author Organization [facility] [place] [address] Care Team Providers Name Role Phone Tom Hay MD Primary Care Provider Reason for Referral Consultation (Routine) - Closed Specialty Diagnoses / Procedures Referred By Contact Refer red To Contact Gastroenterology Diagnoses Gastroesophageal reflux disease with esophagitis without hemorrhage Lower abdominal pain Tom Hay, [facility] [place] [facility] GENERAL INTERNAL [place], [place] MEDICINE [address] [place] [address] Referral ID Status Reason Start Date Expiration Date Visits V isits Requested Authorized [id number] Closed Specialty 08/21/2020 08/21/2021 5 5 Service Requested Encounter Details Date Type Department Care Team Description 08/21/2020 Orders Only Internal Medicine at Tom Hay stroesophageal reflux disease with esophagitis without hemorrhage; [facility] [place] Kevin Lower abdominal pain [facility] [place]NAL [address] MEDICINE [phone] [place] [address] Social History Tobacco Use Types Packs/Day Years Used Date Current Every Day Smoker Cigarettes 0.25 13 Smokeless Tobacco: Never Used Comments: 3-4 cigarettes Alcohol Use Standard Drinks/Week Comments No 0 [...] [facility] [place], [place] [address] (Wo josé luis) 08/19/2022 Office Visit Podiatry Tom Titus DPM [place], [place] [address] (Flores ordonez) 09/08/2022 Office Visit Internal Medicine Janay Hay MD [facility] GENERAL INTERNAL MEDICINE [place], [place] [address] (Wo rk) 10/12/2059 Hospital Encounter Surgery Jim Hanley MD [facility] [place], [place] [address] (Wo rk) Scheduled Procedures Name [...] Gastroesophageal Ordered: Gastroenterology Referral reflux disease with 08/12 esophagitis without hemorrhage Lower abdominal pain documented as of this encounter Visit Diagnoses Diagnosis Gastroesophageal reflux disease with eso phagitis without hemorrhage Lower abdominal pain Abdominal pain, other specified site documented in this encounter Care Teams Testing Director Relationship Specialty Start Date End Date Tom Hay MD PCP - General General Internal Medicine 09/15/18 [facility] GENERAL [place] [address] documented as of this encounter
--- OUTSIDE RECORDS SUMMARY | 2022-07-12 00:47 | XMS_ITS | Encounter Summary ---
:1965 Author Organization [facility] [place] [address] Care Team Providers Name Role Phone Tom Hay MD Primary Care Provider Reason for Visit Diagnostic Test (Routine) - Denied Specialty Diagnoses / Procedures Referred By Contact Refer red To Contact Radiology Diagnoses Lung nodule Adrenal nodule Tom Hay MD [facility] Rad Ct Scan Procedures CT Chest & Abdomen wwo Contrast CT Chest Abdomen Pelvis w Contrast (Generic) [facility] [place] GENERAL INTERNAL [place], [place] [phone] [place] [address] Referral ID Status Reason Start Date Expiration Date Visits V isits Requested Authorized [id number] Denied Specialty 10/26/2020 04/25/2022 1 0 Service Requested Encounter Details Date Type Department Care Team Description 10/29/[address] Scan at [facility] Tom Hay Lung nodule; [facility] MD [place] [address] GENERAL INTERNAL [phone] MEDICINE [place], [place] [address] (Wo rk) Social History Tobacco Use Types [...] Lite)DX code E11.9 complication, unspecified IDD whether longterm insulin use Vitamin D 25 mcg (1,000 [...] 2 sprays by Nasal 0 27.5 mcg/actuation [place], route daily. SuspensionIndications: Indications: allergic rhinitis Allergic Rhinitis valACYclovir (VALTREX) 1 Take 1 tablet by 30 tablet 3 10/26 gram TabletIndications: mouth 2 times daily. 2 Oral lesion tsdspznaxey-dllrlcwdn-xwd Inhale 1 Inhalation 60 each 3 0 [...] 100 each 3 1 Medicated daily. 2 ibuprofen (IBU) 800 mg Take 1 tablet by 270 tablet 3 021 TabletIndications: mouth every 8 hours 1 Cervical radicular pain as needed for Pain. levothyroxine (Synthroid) Take 2 tablets by 180 tablet 3 150 mcg Tablet mouth daily. Take in 2 addition to the 25mcg to equal 325mcg levothyroxine (Synthroid) Take 1 tablet by 90 tablet 3 10/12 25 mcg Tablet mouth daily. 2 metFORMIN XR (Glucophage Take 1 tablet by 60 tablet 12 10/26 XR) 500 mg Tablet mouth 2 times daily. 1 Sustained Release 24 hr meclizine (Antivert) 25 Take 1 tablet by 90 tablet 3 2020 mg TabletIndications: mouth 3 times daily 1 Vertigo as needed. blood-glucose meter 1 each by 1 each 0 10/26/202002/26 (FREESTYLE) Kit [facility].(Non-Drug; 2 Combo Route) route as needed for [...] vitamin with Take 1 tablet by 0 tbbctrha-Hn-Hodm-FA mouth daily. 2 Tablet metroNIDAZOLE Apply topically 2 45 g 5 10/29/201802/09 (METROCREAM) 0.75 % Cream times daily. 2 promethazine (PHENERGAN) Take 25 mg by mouth 0 25 mg tablet every 6 hours as 1 needed. ALPRAZolam (XANAX) 1 mg Take 1 mg by mouth 3 0 tablet times daily as 2 needed. ARIPiprazole (Abilify) 30 Take 30 mg by mouth 0 mg Tablet daily. 2 documented as of this encounter Plan of Treatment Upcoming Encounters Date Type Specialty Care Team Description 08/06/2022 Office Visit Plastic Surgery Peña Woodward MD [facility] PLASTIC SURGERY [place], [place] [address] (Wo rk) 08/19/2022 Office Visit Podiatry Tom Titus DPM [place], [place] [address] (Wo rk) 09/08/2022 Office Visit Internal Medicine Janay Hay MD [facility] GENERAL INTERNAL MEDICINE [place], [place] [address] (Wo rk) 10/12/2059 Hospital Encounter Surgery Jim Hanley MD [facility] SPINE CENTER [place], [place] [address] (Wo rk) Scheduled Procedures Name [...] Priority Date/Time Associated Diagnosis Comme nts CT CHEST AND Routine 10/29/2020 6:14 PM Lung nodule Results for this ABDOMEN WWO EST Adrenal nodule procedure are in CONTRAST the results section. documented in this encounter Results CT Chest & Abdomen wwo Contrast (10/29/2020 6:14 PM EST) Anatomical Region Laterality Modality Chest, Abdomen Computed Tomography Specimen (Source) Anatomical Location Collection Method / Collectio n Time Received Time / Laterality Volume Impressions 10/30/2020 8:00 AM EST 1. ??7 mm right lower lobe pulmonary nod ule unchanged dating back to 2015. ??Other sub-5 mm upper lobe pulmon mayank nodules without correlate on prior imaging. ??Per Fleischner Society guidel zay, in a low-risk patient no routine imaging follow-up is required; in a high -risk patient, an optional CT of the chest could be performed in 12 months. 2. ??Left 2.6 cm adrenal nodule consiste nt with a benign adrenal adenoma. ??This requires no further imaging follow-up. Thank you for letting us participate in the care of this patient. For questions regarding this report, please contact e number below. ? Electronically signed by: Marlon Burnette DO, [facility] ([phone]), at 10/30/2020 8:00 AM Narrative 10/30/2020 8:00 AM EST EXAMINATION: * ??CT CHEST WITHOUT INTRAVENOUS CONTRAS T. ?? * ??CT OF THE ABDOMEN ABDOMEN WITHOUT AN D WITH INTRAVENOUS CONTRAST CLINICAL HISTORY: 55-year-old female wit h pulmonary nodule. ??Follow-up. ??Adrenal nodule. ??Follow-up. ??Characterization of adrenal lesion. TECHNIQUE: Helical CT of the chest was p erformed without intravenous contrast. Helical CT of the abdomen was performed before and after the intravenous administration of contrast. Administered 101.0 ml of OMNIPAQUE 350.00 mg/ml. Oral contrast was administered. COMPARISON: Correlation is made to CT of the abdomen and pelvis dated 2015. ??Comparison is made to CT of the chest dated 2015. ??Of note, per report there is an outside CT of the chest examination which is not provided for comparison. ??Should this e xamination be obtained and uploaded into the [facility] PACS system, an addendum with comparison will be provided. FINDINGS: Simulation Engineer Images: Noncontributory. CT OF THE CHEST: Limitations: Lack of intravenous contras t limits evaluation of the visceral organs, mediastinum, and vascular struct ures. Pulmonary parenchyma: There is a curvili near band of pulmonary parenchymal scarring within the inferolateral aspect of the lingula as well as in the inferomedial aspect of the left lower lo be. ??There is a 7 mm pulmonary nodule within the right lower lobe (series 4, i mage 65); when allowing for variations in technique, this nodule was not signif icantly changes compared to 2015. ??There are dual 4 mm pulmonary no dules within the left upper lobe (series 4, image 35). ??There is a 5 mm pulmonar y nodule in the right upper lobe (series 4, image 40). Airways: The central airways are patent. ??There is no endobronchial or endotracheal lesion. Pleura: There is no pleural effusion or pneumothorax. Lymph nodes:There are no pathologically enlarged lymph nodes. Heart, pericardium, and great vessels: C ardiac size is within normal limits. The unenhanced aorta is normal in course . ??Visualized aspects of unenhanced great vessels are normal in course. ??Th e unenhanced pulmonary arteries are normal in course. Other mediastinal structures: The medias tinal fat is preserved. ??Limited evaluation of the esophagus is unremarka ble. Lower neck: Visualized structures within the inferior neck are unremarkable. Body wall soft tissues: Normal. Skeletal structures: There are no suspic ious osseous lesions. ??There is a sclerotic lesion within the T7 vertebral body on the left, unchanged dating back to 2015, likely related to [place]. ??There are mild degenerative changes of the visualized spine with end plate sclerosis and anterior osteophyte formation. CT OF THE ABDOMEN: Liver: Normal. Bile ducts: Normal. Gallbladder: The gallbladder is surgical ly absent with surgical clips within the gallbladder fossa. Pancreas: Normal. Spleen: Normal. Adrenals: There is a 2.6 x 2.2 cm left a drenal nodule. ??When allowing for variations in technique, this is not sig nificantly changed as compared to 2015. ??This measures 4 Houn sfield units on noncontrast, 34 Hounsfield units on portal venous, and 1 3 Hounsfield units on delayed imaging, with an absolute washout of 70%, consist ent with a benign adrenal adenoma. ??The right adrenal gland images normally. Kidneys: Normal. Vasculature: The aorta is normal in cour se and caliber. ??There is mild atherosclerotic calcification of the aor ta and its branch vessels. ??The origin of the mesenteric and renal arteries are within normal limits. ??The inferior vena cava is normal in course and calibe r. ??The superior mesenteric, splenic, and portal veins are patent. ??Timing of contrast administration limits evaluation of the hepatic veins. Lymph Nodes: ??There are no pathological ly enlarged lymph nodes. Bowel: Limited evaluation of the distal esophagus is unremarkable. ??The stomach is distended with contrast. ??The duoden um is normal in course and caliber. Visualized aspects of the small bowel ar e unremarkable. ??A normal air-filled and collapsed appendix is present in the rig ht lower quadrant. ??Visualized aspects of the large bowel are unremarkable. Peritoneum and mesentery: No ascites, fr ee air, or loculated fluid collection. No mesenteric inflammation. Abdominal wall: Normal. Osseous structures: There are no suspici ous osseous lesions. Procedure Note Marlon Burnette, DO - 10/30/2020Formatti ng of this note might be different from the original. EXAMINATION: * CT CHEST WITHOUT INTRAVENOUS CONTRAST. * CT OF THE ABDOMEN ABDOMEN WITHOUT AND WITH INTRAVENOUS CONTRAST CLINICAL HISTORY: 55-year-old female wit h pulmonary nodule. Follow-up. Adrenal nodule. Follow-up. Characterization of a drenal lesion. TECHNIQUE: Helical CT of the chest was p erformed without intravenous contrast. Helical CT of the abdomen was performed before and after the intravenous administration of contrast. Administered 101.0 ml of OMNIPAQUE 350.00 mg/ml. Oral contrast was administered. COMPARISON: Correlation is made to CT of the abdomen and pelvis dated 2015. Comparison is made to CT of th e chest dated 2015. Of note, per report there is an outside CT of the chest examination which is not provided for comparison. Should this exa mination be obtained and uploaded into the [facility] PACS system, an addendum with comparison will be provided. FINDINGS: Simulation Engineer Images: Noncontributory. CT OF THE CHEST: Limitations: Lack of intravenous contras t limits evaluation of the visceral organs, mediastinum, and vascular struct ures. Pulmonary parenchyma: There is a curvili near band of pulmonary parenchymal scarring within the inferolateral aspect of the lingula as well as in the inferomedial aspect of the left lower lo be. There is a 7 mm pulmonary nodule within the right lower lobe (series 4, i mage 65); when allowing for variations in technique, this nodule was not signif icantly changes compared to 2015. There are dual 4 mm pulmonary nodu les within the left upper lobe (series 4, image 35). There is a 5 mm pulmonary nodule in the right upper lobe (series 4, image 40). Airways: The central airways are patent. There is no endobronchial or endotracheal lesion. Pleura: There is no pleural effusion or pneumothorax. Lymph nodes:There are no pathologically enlarged lymph nodes. Heart, pericardium, and great vessels: C ardiac size is within normal limits. The unenhanced aorta is normal in course . Visualized aspects of unenhanced great vessels are normal in course. The unenhanced pulmonary arteries are normal in course. Other mediastinal structures: The medias tinal fat is preserved. Limited evaluation of the esophagus is unremarka ble. Lower neck: Visualized structures within the inferior neck are unremarkable. Body wall soft tissues: Normal. Skeletal structures: There are no suspic ious osseous lesions. There is a sclerotic lesion within the T7 vertebral body on the left, unchanged dating back to 2015, likely related to b [place]. There are mild degenerative changes of the visualized spine with end plate sclerosis and anterior osteophyte formation. CT OF THE ABDOMEN: Liver: Normal. Bile ducts: Normal. Gallbladder: The gallbladder is surgical ly absent with surgical clips within the gallbladder fossa. Pancreas: Normal. Spleen: Normal. Adrenals: There is a 2.6 x 2.2 cm left a drenal nodule. When allowing for variations in technique, this is not sig nificantly changed as compared to 2015. This measures 4 Hounsf ield units on noncontrast, 34 Hounsfield units on portal venous, and 1 3 Hounsfield units on delayed imaging, with an absolute washout of 70%, consist ent with a benign adrenal adenoma. The right adrenal gland images normally. Kidneys: Normal. Vasculature: The aorta is normal in cour se and caliber. There is mild atherosclerotic calcification of the aor ta and its branch vessels. The origin of the mesenteric and renal arteries are within normal limits. The inferior vena cava is normal in course and calibe r. The superior mesenteric, splenic, and portal veins are patent. Timing of c ontrast administration limits evaluation of the hepatic veins. Lymph Nodes: There are no pathologically enlarged lymph nodes. Bowel: Limited evaluation of the distal esophagus is unremarkable. The stomach is distended with contrast. The duodenum is normal in course and caliber. Visualized aspects of the small bowel ar e unremarkable. A normal air-filled and collapsed appendix is present in the rig ht lower quadrant. Visualized aspects of the large bowel are unremarkable. Peritoneum and mesentery: No ascites, fr ee air, or loculated fluid collection. No mesenteric inflammation. Abdominal wall: Normal. Osseous structures: There are no suspici ous osseous lesions. IMPRESSION 1. 7 mm right lower lobe pulmonary nodul e unchanged dating back to 2015. Other sub-5 mm upper lobe pulmonar y nodules without correlate on prior imaging. Per Fleischner Society guidelin es, in a low-risk patient no routine imaging follow-up is required; in a high -risk patient, an optional CT of the chest could be performed in 12 months. 2. Left 2.6 cm adrenal nodule consistent with a benign adrenal adenoma. This requires no further imaging follow-up. Thank you for letting us participate in the care of this patient. For questions regarding this report, please contact e number below. Tom Hay MD IMG CT ORDERABLES documented in this encounter Visit Diagnoses Diagnosis Lung nodule Solitary pulmonary nodule Adrenal nodule Other specified disorders of adrenal gla nds documented in this encounter Administered Medications Inactive Administered Medications - up to 3 most recent administrations Medication Order MAR Action Action Date Dose Rate Site iohexoL (Omnipaque) (350 mg/mL) Given 10/29/2020 6:14 PM EST 101 mLs injection solution 0-200 mL 0-200 mL, Intravenous, ONCE PRN, 1 dose, Starting on 10/29/20 at 1730, Until Thu10/29/20 at 1814, Per Protocol, Warning Vesicant/Irritant Medication , Radiology Contrast, Routine documented in this encounter Care Teams Jukebox Operator Relationship Specialty Start Date End Date Tom Hay MD PCP - General General Internal Medicine 09/15/18 [facility] [place] [address] documented as of this encounter
--- OUTSIDE RECORDS SUMMARY | 2022-07-12 00:47 | XMS_ITS | Encounter Summary ---
:1965 Author Organization [facility] Address [address] [place] [address] Care Team Providers Name Role Phone Tom Hay MD Primary Care Provider Reason for Visit Reason Onset Date Comments Medication Refill 10/02/2020 Encounter Details Date Type Department Care Team Description 10/02/2020 Refill Internal Medicine at [facility] Tom Hay MD Oral lesion [facility] D rive [facility] [place] [address] GENERAL INTERNAL MEDICINE [phone] [place] [id number] (Wo rk) Social History Tobacco Use Types [...] MD [facility] PLASTIC SURGERY [place] [phone] ([facility]) 08/19/2022 Office Visit Podiatry Tom Titus DPM [place] [phone] ([facility]) 09/08/2022 Office Visit Internal Medicine Janay Hay MD [facility] GENERAL INTERNAL MEDICINE [place] [phone] ([facility]) 10/12/2059 Hospital Encounter Surgery Jim Hanley MD [facility] SPINE CENTER [place], [place] [address] ([facility]) Scheduled Procedures Name Priority Associated Diagnoses Date/Time @ARTHRODESIS, POSTERIOR CERVICAL Cervical spondy losis [facility] myelopathy Neck pain Pseudoarthrosis of cervical [...] as of this encounter Visit Diagnoses Diagnosis Oral lesion Other and unspecified diseases of the or al soft tissues documented in this encounter Care Teams Secondary Education Professor Relationship Specialty Start Date End Date Tom Hay MD PCP - General Internal Medicine 09/15/18 [facility] [place] [address] documented as of this encounter
--- OUTSIDE RECORDS SUMMARY | 2022-07-12 00:47 | XMS_ITS | Encounter Summary ---
:1965 Author Organization [facility] Address [facility] [place] [address] Care Team Providers Name Role Phone Tom Hay MD Primary Care Provider Encounter Details Date Type Department Care Team Description 11/22/2020 Clinical Support Same Day [place] [facility] [place] [phone] Social History Tobacco Use Types Packs/Day Years Used Date Current Every Day Smoker Cigarettes 0.5 13 Smokeless Tobacco: Never Used Tobacco Cessation: Ready to Quit: Yes Alcohol Use Standard Drinks/Week Comments No 0 [...] place to sleep or slept in a retirement (including now)? Sex Assigned at Date Recorded Not on file documented as of this encounter Last Filed Vital Signs Vital Sign Reading Time Taken Comments Blood Pressure 122/88 11/22/2020 1:06 PM EST Pulse 101 11/22/2020 1:06 PM EST Temperature - - Respiratory Rate - - Oxygen Saturation 97% 11/22/2020 1:06 PM EST Inhaled Oxygen Concentration - - Weight 93.9 kg (207 lb) 11/22/2020 1:06 PM EST Height 165.1 cm (5' 5) 11/22/2020 1:06 PM EST Body Mass Index 34.45 11/22/2020 1:06 PM EST documented in this encounter Progress Notes Tabatha Baum RN - 11/22/2020 1:00 PM EST PAT questionnaire reviewed with patient while in Pre Admission testing. [facility] booklet reviewed. Patient verbalizes a good understanding of all information reviewed. PLAN: Testing: labs Special medication instructions: Procedure date: 11-30-20 Dr Hanley Pt reports trip to ED 11-20-20 with diagnosis of cellulitis. Instructed patient to have this looked atby Radhika Barcenas APRN at office visit scheduled for 1440 today. Pt also reports she was told she would need help at home after surgery. She has been unable to find anyone who could help her. I left message for Moni Denton (surgical elastic knitter with above info). Pre Surgery Covid screening patient response: No documented in this encounter Plan of Treatment Upcoming Encounters Date Type Specialty Care Team Description 08/06/2022 Office Visit Plastic Surgery Peña Woodward MD [facility] PLASTIC SURGERY [place], [place] [address] (Wo rk) 08/19/2022 Office Visit Podiatry Tom Titus DPM [facility] [address] [place], [place] [address] (Wo rk) 09/08/2022 Office Visit Internal Medicine Janay Hay MD [facility] GENERAL INTERNAL MEDICINE [place], [place] [address] (Wo rk) 10/12/2059 Hospital Encounter Surgery Jim Hanley MD [facility] SPINE CENTER [place], [place] [address] (Wo rk) Scheduled Procedures Name [...] on filedocumented in this encounter Care Teams Flight Surveyor Relationship Specialty Start Date End Date Tom Hay MD PCP - General General Internal Medicine 09/15/18 [facility] [place] [address] documented as of this encounter
--- OUTSIDE RECORDS SUMMARY | 2022-07-12 00:47 | XMS_ITS | Encounter Summary ---
:1965 Author Organization [facility] Address [place] [id number] Care Team Providers Name Role Phone Tom Hay MD Primary Care Provider Encounter Details Date Type Department Care Team Description 11/06/2020 TH Visit Pain and Spine Rashard Hanley, Cervical spondylosis with myelopathy; (TeleHealth) Center at [facility] DDD (degenerative disc disease), cervica l [facility] [address] [place], [place] [facility] [id number] [place] [address] [phone] Social History Tobacco Use Types Packs/Day Years [...] documented as of this encounter Progress Notes Rashard Hanley MD - 11/06/2020 9:40 AM EST [facility] Rashard Hanley MD MS Tom Hay MD [facility] [place] [address] Dear Colleagues, I had the pleasure of seeing this patient at the [facility] @ [facility] for surgical evaluation. Telephone conversation office visit 30 minutes. Last visit 09/18/2020. Diagnosis: 1. Cervical myeloradiculopathy with severe stenosis C5-6 and foraminal stenosis C6-7 withprogressive balance problems. Prognostic factors: 1 BMI 32 diabetic current smoker 5 to 6 cigarettes/day sleep apnea. CT was obtained 09/18/2020 which was interpreted by me as well as the report reviewed. There is significant cervical stenosis at C5-6 and C6-7. There is significant facet arthropathy at all levels. Slight listhesis at 4 5 as well as 2-3. We discussed her current symptoms she has progressive balance issues trouble with her hands. There is an ongoing long-term problem which is progressing. Her bilateral hands are numb except for thumbs. We discussed surgical procedure that we discussed prior. This would be a C6 corpectomy C5-C 7 instrumented fusion. We discussed the risks of dysphagia the technical aspects of the surgery. Discussed the goals which is to keep her from getting worse. The surgery may or may not help her in terms of improvement. However she is caught between a rock and a hard place in terms of progressive loss of function versus the risks and benefits of surgical intervention. She understands if she may not improve postsurgical. All questions were answered. She would like to proceed with surgical intervention as soon as possible. Proposed procedure: C6 corpectomy C5-C7 instrumented fusion with local autograft spinal cord monitoring. Sincerely, Rashard Hanley MD MS [facility] Machine Hoop Maker Helper - Orthopedic Spine Surgery Software Trainer - Department of Orthopedic Surgery / Academics and Research Masonry Contractor Administrator - [facility] 11/06/2020 Spine Center Response Trends Patient-reported scores: myD-H Spine Questionnaire responses 04/19/2013 04/25/2014 10/29/2018 07/04/2020 09/18/2020 VR36 - Physical Function (Range: 0-100) 13.1 15.3 - - - VR36 - Bodily Pain (Range: 0-100) 23.1 28.4 - - - VR36 - PCS (Range: 0-100) 27 31.2 - - - VR36 - MCS (Range: 0-100) 44 46.1 - - - Oswestry Disability Index (Range: 0-100) - - 74 (Crippled) - - Neck Disability Index (Range: 0-100) 78 (Complete disability) 76 (Complete disability) 80 (Complete disability) - 78 (Complete disability) PROMIS-10 Physical Health Score - - 23.5 37.4 23.5 PROMIS-10 Mental Health Score - - 36.3 53.3 38.8 documented in this encounter Plan of Treatment Upcoming Encounters Date Type Specialty Care Team Description 08/06/2022 Office Visit Plastic Surgery Peña Woodward MD [facility] PLASTIC SURGERY [place], [place] [address] (Flores ordonez) 08/19/2022 Office Visit Podiatry Tom Titus DPM [place], [place] [address] (Flores ordonez) 09/08/2022 Office Visit Internal Medicine Janay Hay MD [facility] GENERAL INTERNAL MEDICINE [place], [place] [address] (Wo rk) 10/12/2059 Hospital Encounter Surgery Jim Hanley MD [facility] SPINE CENTER [place], [place] [address] (Wo rk) Scheduled Procedures Name [...] please contact e number below. ? Narrative 12/12/2020 11:40 AM EST EXAMINATION: XR [...] Rashard Hanley MD IMG DX ORDERABLES (ABNORMAL) Basic Metabolic Panel (non-fasting) (11/22/2020 2:15 PM EST) P athologist Signature Glucose Lvl 299 (H) 65 - 199 [facility] mg/dL [facility] Comment: Diabetes: >=200 mg/dL plus symp toms BUN 11 8 - 18 mg/dL [facility] Creatinine 0.68 (L) 0.70 - 1.20 mg/dL [facility] Sodium 135 135 - 145 mmol/L [facility] Potassium 3.9 3.5 - 5.0 mmol/L [facility] Comment: Please note: ??Patients with WBC >100,00 0 may have falsely elevated Potassium levels. ??For accurate Potassium quantif ication in these patients send serum separator tube (gold top) for subsequent determinations. ??Contact the Clinical Chemistry Laboratory if there are any qu estions. Chloride 99 98 - 107 mmol/L [facility] CO2 27 22 - 31 mmol/L [facility] Anion Gap 9 5 - 15 mmol/L [facility] Calcium 9.4 8.5 - 10.5 mg/dL [facility] Estimated GFR 100 >=60 mL/min/1.73 m?? [facility] Comment: This patient? s estimated [...] Organization Address City/State/[place] [address] documented in this encounter Visit Diagnoses Diagnosis Cervical spondylosis with myelopathy DDD (degenerative disc disease), cervica l Degeneration of cervical intervertebral disc Cervical spondylosis with myelopathy DDD (degenerative disc disease), cervica l Degeneration of cervical intervertebral disc documented in this encounter Care Teams Test Baker Relationship Specialty Start Date End Date Tom Hay MD PCP - General General Internal Medicine 09/15/18 [facility] GENERAL [place] [address] documented as of this encounter
--- OUTSIDE RECORDS SUMMARY | 2022-07-12 00:47 | XMS_ITS | Encounter Summary ---
:1965 Author Organization [facility] [place] [address] Care Team Providers Name Role Phone Tom Hay MD Primary Care Provider Encounter Details Date Type Department Care Team Description 11/09/2020 Telephone [facility] Joni Ospina [facility] Kevin castañ[place] [phone] Social History Tobacco Use Types Packs/Day [...] this encounter Miscellaneous Notes Telephone Encounter - Tova Ospina - 11/09/2020 3:06 PM EST External test: 11/27 [place] documented in this encounter Plan of Treatment Upcoming Encounters Date Type Specialty Care Team Description 08/06/2022 Office Visit Plastic Surgery Peña Woodward MD [facility] PLASTIC SURGERY [place] [phone] (Wo rk) 08/19/2022 Office Visit Podiatry Tom Titus DPM [place] [phone] (Wo rk) 09/08/2022 Office Visit Internal Medicine Janay Hay MD [facility] GENERAL INTERNAL MEDICINE [place], [place] [address] (Wo rk) 10/12/2059 Hospital Encounter Surgery Jim Hanley MD [facility] SPINE [facility] [place], [place] [address] (Wo rk) Scheduled Procedures Name [...] on filedocumented in this encounter Care Teams Faculty Dean Relationship Specialty Start Date End Date Tom Hay MD PCP - General Internal Medicine 09/15/18 [facility] [place] [address] documented as of this encounter
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
--- OUTSIDE RECORDS SUMMARY | 2022-07-12 00:47 | XMS_ITS | Encounter Summary ---
:1965 Author Organization [facility] [place] [address] Care Team Providers Name Role Phone Tom Hay MD Primary Care Provider Reason for Visit Reason Onset Date Comments Other 11/26/2020 Encounter Details Date Type Department Care Team Description 11/26/2020 Telephone Pain and Spine [place] jacobsen at [facility] Lexie Julian RN [facility] [place] [address] Social History Tobacco Use Types Packs/Day [...] Telephone Encounter - Lexie Julian RN - 11/26/2020 8:41 AM EST Received call from pt checking I with re to ability to proceed as scheduled for ACDF with Dr Banegas Thursday 11/30. Pt was seen by PCP ; having been initiated on oral abx earlier for cellulitis n the back f her natty. Pt is scheduled to to complete full course of abx as ordered this .Pt states redness and sensitivity to touch is gone. Informed pt that Dr Hanley was advised of the infection and planned treatment. Requested pt estuardo the Spine Nsg office 11/29 with an update ; explained if there is no redness, pain and she is afebrile that we wuld update Dr Hanley and expect surgery to go forward as planned. Pt agreeable. documented in this encounter Plan of Treatment Upcoming Encounters Date Type Specialty Care Team Description 08/06/2022 Office Visit Plastic Surgery Peña Woodward MD [facility] PLASTIC SURGERY [place], [place] [address] (Flores ordonez) 08/19/2022 Office Visit Podiatry Tom Titus DPM [facility] JOSEPH [place], [place] [address] (Wo rk) 09/08/2022 Office Visit Internal Medicine Janay Hay MD [facility] GENERAL INTERNAL MEDICINE [place], [place] [address] (Wo rk) 10/12/2059 Hospital Encounter Surgery Jim Hanley MD [facility] SPINE CENTER [place], [place] [address] (Wo rk) Scheduled Procedures Name [...] on filedocumented in this encounter Care Teams Entry Level Mechanical Engineer Relationship Specialty Start Date End Date Tom Hay MD PCP - General General Internal Medicine 09/15/18 [facility] [place] [address] documented as of this encounter
--- OUTSIDE RECORDS SUMMARY | 2022-07-12 00:47 | XMS_ITS | Encounter Summary ---
:1965 Author Organization [facility] [place] [address] Care Team Providers Name Role Phone Tom Hay MD Primary Care Provider Reason for Visit Reason Onset Date Comments Medication Problem 10/02/2020 Encounter Details Date Type Department Care Team Description 10/02/2020 Telephone Internal Medicine at [facility] Raven Solis Medication Problem [facility] [place] [address] Social History Tobacco Use Types Packs/Day [...] this encounter Miscellaneous Notes Telephone Encounter - Raven Solis - 10/02/2020 11:10 AM EST Pharmacy or caller: Patient Medication: valACYclovir (VALTREX) 1 gram Tablet Message: Patient is calling the office today because with most recent prescription of this medication it was only for 18 pills not a 30 day prescription. Please resend as a 30 day prescription Did you contact your pharmacy?: no documented in this encounter Plan of Treatment Upcoming Encounters Date Type Specialty Care Team Description 08/06/2022 Office Visit Plastic Surgery Peña Woodward MD [facility] PLASTIC SURGERY [place], [place] [address] (Flores ordonez) 08/19/2022 Office Visit Podiatry Tom Titus DPM [place], [place] [address] (Flores ordonez) 09/08/2022 Office Visit Internal Medicine Janay Hay MD [facility] GENERAL INTERNAL MEDICINE [place], [place] [address] (Flores ordonez) 10/12/2059 Hospital Encounter Surgery Jim Hanley MD [facility] DR SPINE CENTER [place], [place] [address] (Wo rk) Scheduled Procedures Name [...] filedocumented in this encounter Care Teams Custom Framing Specialist Relationship Specialty Start Date End Date Tom Hay MD PCP - General General Internal Medicine 09/15/18 [facility] GENER[place] [address] documented as of this encounter
--- OUTSIDE RECORDS SUMMARY | 2022-07-12 00:47 | XMS_ITS | Encounter Summary ---
:1965 Author Organization [place] [address] Care Team Providers Name Role Phone Tom Hay MD Primary Care Provider Reason for Visit Reason Comments Pre-op Exam Encounter Details Date Type Department Care Team Description 11/22/2020 Office Visit Internal Medicine at [facility] Barc[facility], Pre operative examination; [facility] PRODUCT SAFETY MANAGER Cervical radicular pain [facility] [address] [place], [place] GENERAL INTERNAL [id number] MEDICINE [phone] [place], [place] [address] Social History Tobacco Use Types [...] Time Taken Comments Blood Pressure 122/88 11/22/2020 2:27 PM EST Pulse 101 11/22/2020 2:27 PM EST Temperature - - Respiratory Rate 16 11/22/2020 2:27 PM EST Oxygen Saturation 97% 11/22/2020 2:27 PM EST Inhaled Oxygen Concentration - - Weight 93.9 kg (207 lb) 11/22/2020 2:27 PM EST Height 165.1 cm (5' 5) 11/22/2020 2:27 PM EST Body Mass Index 34.45 11/22/2020 2:27 PM EST documented in this encounter Progress Notes Radhika Barcenas, PRODUCT SAFETY MANAGER - 11/22/2020 2:40 PM EST Subjective: Patient ID: Joseline Rose is a 55 y.o. female. HPI Evaluation today was performed: [] By video conference [x] In-person PPE used during in-person evaluation: [] Gloves [] Gown [] Goggles [x] Face-shield [x] Level 2 mask [] N-95 [] PAPR Joseline is here for a preoperative exam for neck surgery, has had chronic DDD in neck with numbness and pain down both arms. She lives alone but has friends that will drive her. Most recently had a hot rash on back of her neck, went to local hospital ([place]) and found to have cellulitis and currently on Keflex, found some relief within 24 hours of starting antibiotics. bottle blowing machine tender to touch there. PMH - Asthma, Hypothyroid, Depression, Bipolar, SEB, DM2, COPD, HTN, Hyperlipidemia, Psoriasis on scalp, GERD and fibromyalgia. Review of Systems Constitutional: Negative for activity change, appetite change, chills, diaphoresis, fatigue, fever and unexpected weight change. HENT: Negative for congestion, rhinorrhea, sore throat and trouble swallowing. Eyes: Negative for visual disturbance. Respiratory: Negative for cough and shortness of breath. Cardiovascular: Negative for chest pain and palpitations. Gastrointestinal: Negative for abdominal pain, constipation, diarrhea, nausea and vomiting. Genitourinary: Negative for difficulty urinating and dysuria. Musculoskeletal: Negative for arthralgias. Skin: Positive for rash. Neurological: Negative for headaches. Psychiatric/Behavioral: Negative for dysphoric mood and sleep disturbance. The patient is not nervous/anxious. Objective: Physical Exam Vitals reviewed. Constitutional: Appearance: She is well-developed. HENT: Head: Normocephalic and atraumatic. Right Ear: External ear normal. Left Ear: External ear normal. Eyes: Conjunctiva/sclera: Conjunctivae normal. Pupils: Pupils are equal, round, and reactive to light. Cardiovascular: Rate and Rhythm: Normal rate. Pulmonary: Effort: Pulmonary effort is normal. Breath sounds: Normal breath sounds. Abdominal: General: Bowel sounds are normal. Palpations: Abdomen is soft. Tenderness: There is no abdominal tenderness. Musculoskeletal: General: Normal range of motion. Cervical back: Neck supple. Skin: General: Skin is warm and dry. Comments: Back of neck with erythema and warmth, at center is 1 cm area of firm nodule, no fluctuance. Neurological: Mental Status: She is alert and oriented to person, place, and time. Psychiatric: Behavior: Behavior normal. Assessment and Plan: Joseline was seen today for pre-op exam. I found her at low risk for this procedure. Stay on antibiotics and warm compresses. Check to make sure covid test will be back within 3 days of getting in [place]. Diagnoses and all orders for this visit: Preoperative examination Cervical radicular pain documented in this encounter Plan of Treatment Upcoming Encounters Date Type Specialty Care Team Description 08/06/2022 Office Visit Plastic Surgery Peña Woodward MD [facility] PLASTIC SURGERY [place], [place] [address] (Wo rk) 08/19/2022 Office Visit Podiatry Tom Titus DPM [facility] [address]IVE [place], [place] [address] (Wo rk) 09/08/2022 Office Visit Internal Medicine Janay Hay MD [facility] GENERAL INTERNAL MEDICINE [place], [place] [address] (Wo rk) 10/12/2059 Hospital Encounter Surgery Jim Hanley MD [facility] SPINE CENTER [place], [place] [address] (Wo rk) Scheduled Procedures Name [...] as of this encounter Visit Diagnoses Diagnosis Preoperative examination Preoperative examination, unspecified Cervical radicular pain Brachial neuritis or radiculitis nos documented in this encounter Care Teams Reimbursement Auditor Relationship Specialty Start Date End Date Tom Hay MD PCP - General General Internal Medicine 09/15/18 [facility] GENERAL [place] [address] documented as of this encounter
--- OUTSIDE RECORDS SUMMARY | 2022-07-12 00:47 | XMS_ITS | Encounter Summary ---
:1965 Author Organization [facility] [place] [address] Care Team Providers Name Role Phone Tom Hay MD Primary Care Provider Reason for Visit Reason Onset Date Comments Results 10/31/2020 Encounter Details Date Type Department Care Team Description 10/31/2020 [address] [facility] Amelia Whitehead Results [facility] Kevin [address] [address] Social History Tobacco Use Types Packs/Day [...] Telephone Encounter - Maricruz Shabazz RN - 10/31/2020 6:[address] Hay: Letter was sent. Nodules are stable- no further follow-up needed for this. Returned call to patient and relayed this information. Patient verbalized understanding and agrees with plan. Telephone Encounter - Lata Souza - 10/31/2020 3:52 PM EST Pt is calling again to speak with Tom Hay MD about CT results, please call [phone] Telephone Encounter - Amelia Whitehead - 10/31/2020 9:44 AM EST Requesting test results: Type of Test: CT scan Date of Test: 10/29/20 Where Test was performed: [facility] Who ordered the Test: Satnam Caller and relationship (if other than patient-full name): self Best time to call back: any Ok to leave a message: y Ok to send my- message n MA/Nurse contacted via: Message: y Call: n Pager: n documented in this encounter Plan of Treatment Upcoming Encounters Date Type Specialty Care Team Description 08/06/2022 Office Visit Plastic Surgery Peña Woodward MD [facility] PLASTIC SURGERY [place], [place] [address] (Wo rk) 08/19/2022 Office Visit Podiatry Tom Titus DPM [place], [place] [address] (Wo rk) 09/08/2022 Office Visit Internal Medicine Janay Hay MD [facility] GENERAL INTERNAL MEDICINE [place], [place] [address] (Wo rk) 10/12/2059 Hospital Encounter Surgery Jim Hanley MD [facility] SPINE CENTER [place], [place] [address] (Wo rk) Scheduled Procedures Name [...] on filedocumented in this encounter Care Teams Television Tube Inspector Relationship Specialty Start Date End Date Tom Hay MD PCP - General General Internal Medicine 09/15/18 [facility] GENERAL [place] [address] documented as of this encounter
--- OUTSIDE RECORDS SUMMARY | 2022-07-12 00:47 | XMS_ITS | Encounter Summary ---
:1965 [place] [address] Care Team Providers Name Role Phone Tom Hay MD Primary Care Provider Reason for Visit Reason Onset Date Comments Medication Refill 09/28/2020 Encounter Details Date Type Department Care Team Description 09/28/2020 Refill Internal Medicine at Melissa Cha, [facility] [address] Social History Tobacco Use Types Packs/Day [...] MD [facility] PLASTIC SURGERY [place], [place] [address] (Wo rk) 08/19/2022 Office Visit Podiatry Tom Titus DPM [place], [place] [address] (Wo rk) 09/08/2022 Office Visit Internal Medicine Janay Hay MD [facility] GENERAL INTERNAL MEDICINE [place], [place] [address] (Wo rk) 10/12/2059 Hospital Encounter Surgery Jim Hanley MD [facility] SPINE CENTER [place], [place] [address] (Wo rk) Scheduled Procedures Name [...] as of this encounter Visit Diagnoses Diagnosis Cervical radicular pain Brachial neuritis or radiculitis nos documented in this encounter Care Teams Track Repair Supervisor Relationship Specialty Start Date End Date Tom Hay MD PCP - General General Internal Medicine 09/15/18 [facility] [place] [address] documented as of this encounter
--- OUTSIDE RECORDS SUMMARY | 2022-07-12 00:47 | XMS_ITS | Encounter Summary ---
:1965 Author Organization [place] [address] Care Team Providers Name Role Phone Tom Hay MD Primary Care Provider Encounter Details Date Type Department Care Team Description 11/02/2020 Orders Only [facility] Cov id, Eligible [facility] none [facility] Kevin [address] [address] Social History Tobacco Use Types Packs/Day [...] Office Visit Plastic Surgery Peña Woodward MD [facility] PLASTIC SURGERY [place], [place] [address] (Wo rk) 08/19/2022 Office Visit Podiatry Tom Titus DPM [place] [id number] (Wo rk) 09/08/2022 Office Visit Internal Medicine Janay Hay MD [facility] GENERAL INTERNAL MEDICINE [place], [place] [address] (Wo rk) 10/12/2059 Hospital Encounter Surgery Jim Hanley MD [facility] SPINE CENTER [place] [id number] (Wo rk) Scheduled Procedures Name Priority Associated [...] on filedocumented in this encounter Care Teams Simulation Developer Relationship Specialty Start Date End Date Tom Hay MD PCP - General Internal Medicine 09/15/18 [facility] [place] [address] documented as of this encounter
--- OUTSIDE RECORDS SUMMARY | 2022-07-12 00:47 | XMS_ITS | Encounter Summary ---
:1965 Author Organization [facility] Address [address] [place] [address] Care Team Providers Name Role Phone Tom Hay MD Primary Care Provider Encounter Details Date Type Department Care Team Description 09/18/2020 Hospital Encounter XRay at [facility] [place] [place] Dieter Phillips, DDD (degenerative [address] [place] [address] [place] disc disease), [facility] [id number] [place] [phone] [place] [address] Social History Tobacco Use Types Packs/Day Years [...] Sig Dispensed Refills Start Date End Date Calcipotriene 0.005 % as needed. 0 10/31/2019 Solution estradiol (ESTRACE) 0.[address] Place vaginally as 4 % (0.1 mg/gram) Cream needed. ondansetron (ZOFRAN) 4 mg Take 1 tablet by 20 tablet 3 03/13 TabletIndications: mouth every 8 hours Vertigo as needed for Nausea. fluticasone (VERAMYST) 2 sprays by Nasal 0 27.5 mcg/actuation [place], route daily. SuspensionIndications: Indications: allergic rhinitis Allergic Rhinitis blood sugar diagnostic Use as instructed to 300 each 3 06/2020 strips StripIndications: check BG 4 times 1 Controlled type 2 daily. (Freestyle diabetes mellitus without Lite)DX code E11.9 complication, unspecified IDD whether usp insulin use uebprxqqjqu-zqflahbpf-puh Inhale 1 Inhalation 60 each 3 1 10/20/2019 anter (Trelegy Ellipta) into the lungs 1 100-62.5-25 mcg Disk with daily. Device Crystal Pen Needle 32 gauge Inject 1 each 400 each 3 07/26/20 20 x 5/32 Needle subcutaneously [address] (Cymbalta) Take 1 capsule by 90 capsule 3 06/13 60 mg Capsule, Delayed mouth daily. 1 Release(E.C.) varenicline (Chantix) 1 Take 1 tablet by 30 tablet 5 2019 mg Tablet mouth daily. 1 clotrimazole (MYCELEX) 10 DIS 1 MOLLY PO TID 30 tablet 3 06/13 mg Gary 1 glipiZIDE (Glucotrol) 5 Take 1 tablet by 60 tablet 11 2019 mg Tablet mouth daily. 1 esomeprazole (NexIUM) 40 Take 1 capsule by 180 capsule 3 mg Capsule, Delayed mouth 2 times daily. 1 Release(E.C.) nystatin (Mycostatin) SAS 5 ML PO QID PRF 60 mL 0 06/11 100,000 unit/mL THRUSH 1 Suspension semaglutide 1 mg/dose (2 Inject 1 mg 12 Syringe 3 05/17/2020 mg/1.5 mL) Pen Injector subcutaneously once 1 a week. albuteroL (ProAir HFA) 90 Inhale 2 puffs into 3 Inhaler 3 0 04/27/2020 mcg/actuation HFA Aerosol the lungs every 4 1 InhalerIndications: hours as needed for Chronic obstructive Wheezing. Use with pulmonary disease with spacer acute exacerbation amLODIPine (Norvasc) 10 Take 1 tablet by 90 tablet 3 2019 mg Tablet mouth daily. 1 atorvastatin (Lipitor) 20 Take 1 tablet by 90 tablet 3 04/11 mg Tablet mouth daily. 1 BD Alcohol Swabs Pads, 1 each 4 times 100 each 3 0 Medicated daily. 1 betamethasone-calcipotrie Apply twice daily 120 g 3 ne (TACLONEX SCALP) for 5 days out of 1 0.005-0.064 % the week SuspensionIndications: Scalp psoriasis Vitamin D 25 mcg (1,000 Take 2 tablets by 90 tablet 0 04/27 unit) Tablet mouth daily. 1 ibuprofen (IBU) 800 mg Take 1 tablet by 270 tablet 3 020 TabletIndications: mouth every 8 hours 1 Cervical radicular pain as needed for Pain. levothyroxine (Synthroid) Take 2 tablets by 180 tablet 3 150 mcg Tablet mouth daily. Take in 1 addition to the 25mcg to equal 325mcg levothyroxine (Synthroid) Take 1 tablet by 90 tablet 3 02/10 25 mcg Tablet mouth daily. 1 valACYclovir (VALTREX) 1 Take 1 tablet by 30 tablet 3 02/06 gram TabletIndications: mouth 2 times daily. 0 Oral lesion metFORMIN XR (Glucophage Take 1 tablet by 60 tablet 12 02/01 XR) 500 mg Tablet mouth 2 times daily. 1 Sustained Release 24 hr meclizine (Antivert) 25 Take 1 tablet by 90 tablet 3 2019 mg TabletIndications: mouth 3 times daily 1 Vertigo as needed. ipratropium-albuterol Take 0.5 mg by 1 Box 4 11/01/2019 (DUONEB) 0.5 mg-3 mg(2.5 nebulization 4 times 1 mg base)/3 mL Solution daily. for NebulizationIndications: Chronic obstructive pulmonary disease with acute exacerbation blood-glucose meter 1 each by 1 each 0 11/01/201910/26 (FREESTYLE) Kit Misc.(Non-Drug; 1 Combo Route) route as needed for Other. naratriptan (Amerge) 2.5 Take 1 tablet by 10 tablet 3 10/31 mg TabletIndications: mouth as needed for 1 Vertigo Migraine. if returns or does not resolve, may repeat once after 4 hours ondansetron ODT DISSOLVE 1 T UNDER 0 08/08/2019 0 (ZOFRAN-ODT) 4 mg Tablet, THE TONGUE Q 6 H PRN 1 Rapid Dissolve lancets (FREESTYLE Dx E11.9 IDD please 125 each 11 10/24/19 20 LANCETS) 28 gauge test 4x/day with 1 MiscIndications: diabetes lancets Indications: mellitus diabetes mellitus pen needle, diabetic 1 each by 100 each 5 10/24/201910/12 (NOVOTWIST) 32 gauge x Misc.(Non-Drug; 1 10/16 Needle Combo Route) route 4 times daily as needed. Novotwist needle ICD E11.9 NIDD montelukast (SINGULAIR) Take 1 tablet by 90 tablet 3 2018 10 mg Tablet mouth nightly. 1 Clobetasol-Emollient 0.05 Apply twice daily to 200 g 0 08/29/2019 % FoamIndications: worse scalp 1 Psoriasis psoriasis on weekends-only as needed dispense 3 bottles please methocarbamol (ROBAXIN) Take 1 tablet by 120 tablet 0 2018 750 mg TabletIndications: mouth 4 times daily. 0 Cervical radicular pain hydroCHLOROthiazide Take 1 tablet by 90 tablet 3 04/07/2019 (HYDRODIURIL) 50 mg mouth daily. 1 TabletIndications: Essential hypertension vitamin with Take 1 tablet by 0 tfuhofof-Ak-Ujlu-FA mouth daily. 2 Tablet metroNIDAZOLE Apply topically 2 45 g 5 10/29/201802/09 (METROCREAM) 0.75 % Cream times daily. 2 cholecalciferol, Vitamin Take 1 capsule by 52 capsule 0 04/11 D3, 50,000 unit Capsule mouth once a week. 1 cycloSPORINE (RESTASIS) Place 1 drop into 180 vial 3 10/20 0.05 % both eyes every 12 1 DropperetteIndications: hours. Bilateral dry eyes promethazine (PHENERGAN) Take 25 mg by mouth [...] Visit Plastic Surgery Peña Woodward MD [facility] PLASTIC SURGERY [place], [place] [address] (Wo rk) 08/19/2022 Office Visit Podiatry Tom Titus DPM [place], [place] [address] (Wo rk) 09/08/2022 Office Visit Internal Medicine Janay Hay MD [facility] GENERAL INTERNAL MEDICINE [place], [place] [address] (Wo rk) 10/12/2059 Hospital Encounter Surgery Jim Hanley MD [facility] SPINE CENTER [place], [place] [address] (Wo rk) Scheduled Procedures Name [...] Comme nts XR CERVICAL SPINE 2 Routine 09/18/2020 10:34 AM DDD (degenerat skyla Results for this OR 3 VIEWS EST disc disease), procedure are in cervical the results section. documented in this encounter Results XR Cervical Spine 2 or 3 Views (09/18/2020 10:34 AM EST) Anatomical Region Laterality Modality C-spine N/A Digital Radiography Specimen (Source) Anatomical Location Collection Method / Collectio n Time Received Time / Laterality Volume Impressions 09/18/2020 11:26 AM EST 1. Cervical spondylosis, most severe at C5-6; C6-7 not visualized on lateral views. 2. No evidence of dynamic instability. Thank you for letting us participate in the care of this patient. For questions regarding this report, please contact e number below. ? Electronically signed by: Rosi Anderson MD, [facility] ([phone]), at 09/18/2020 11:26 AM Narrative 09/18/2020 11:26 AM EST EXAMINATION: XR CERVICAL SPINE 2 OR 3 VIEWS CLINICAL HISTORY: Upright AP & Lateral F rebekah/Ext (3 views) to evaluate cervical radiculopathy TECHNIQUE: 3 views of the cervical spine including standing AP, lateral flexion and extension views. COMPARISON: Cervical spine MRI 07/18/2020, C-spine ra diograph 10/29/2018, 05/14/2016, 11/28/2015 FINDINGS: The C1 through superior aspect of C6 jason tebral bodies visualized on the lateral view. Vertebral bodies: Normal vertebral body height. No evidence of fracture. Advanced disc space narrowing at C5-6 wi th endplate sclerosis and prominent anterior endplate osteophytes. Facet and uncovertebral joint arthropathy at the mid and lower cervical levels. Soft tissues: Normal. Atlantoaxial inter antoni is unremarkable. Alignment: Flexion -Extension: C3-4 1.0 mm anterolisthesis seen in flex ion and extension. C4-5 1.8 mm anterolisthesis seen in flex ion and extension. C5-6 0.5 mm retrolisthesis seen in flexi on and extension. No dynamic instability. Procedure Note Rosi Garcia MD - 0 EXAMINATION: XR CERVICAL SPINE 2 OR 3 EWS CLINICAL HISTORY: Upright AP & Lateral F rebekah/Ext (3 views) to evaluate cervical radiculopathy TECHNIQUE: 3 views of the cervical spine including standing AP, lateral flexion and extension views. COMPARISON: Cervical spine MRI 07/18/2020, C-spine ra diograph 10/29/2018, 05/14/2016, 11/28/2015 FINDINGS: The C1 through superior aspect of C6 jason tebral bodies visualized on the lateral view. Vertebral bodies: Normal vertebral body height. No evidence of fracture. Advanced disc space narrowing at C5-6 wi th endplate sclerosis and prominent anterior endplate osteophytes. Facet and uncovertebral joint arthropathy at the mid and lower cervical levels. Soft tissues: Normal. Atlantoaxial inter antoni is unremarkable. Alignment: Flexion -Extension: C3-4 1.0 mm anterolisthesis seen in flex ion and extension. C4-5 1.8 mm anterolisthesis seen in flex ion and extension. C5-6 0.5 mm retrolisthesis seen in flexi on and extension. No dynamic instability. IMPRESSION 1. Cervical spondylosis, most severe at C5-6; C6-7 not visualized on lateral views. 2. No evidence of dynamic instability. Thank you for letting us participate in the care of this patient. For questions regarding this report, please contact e number below. Electronically signed by: Rosi Anderson MD, [facility] ([phone]), at 09/18/2020 11:26 AM Dieter Phillips MD IMG DX ORDERABLES documented in this encounter Visit Diagnoses Diagnosis DDD (degenerative disc disease), cervica l Degeneration of cervical intervertebral disc documented in this encounter Care Teams Plate Furnace Operator Relationship Specialty Start Date End Date Tom Hay MD PCP - General General Internal Medicine 09/15/18 [facility] [place] [address] documented as of this encounter
--- OUTSIDE RECORDS SUMMARY | 2022-07-12 00:47 | XMS_ITS | Encounter Summary ---
:1965 Author Organization [facility] [place] [address] Care Team Providers Name Role Phone Tom Hay MD Primary Care Provider Encounter Details Date Type Department Care Team Description 10/29/2020 Laboratory Appointment Lab [address] [place] Hypothyroidism, unspecified type; [facility] Controlled type 2 diabetes m ellitus without complication, unspecified whether [place] [id number] Social History Tobacco Use Types Packs/Day Years [...] Visit Plastic Surgery Peña Woodward MD [facility] PLASTIC SURGERY [place], [place] [address] (Wo rk) 08/19/2022 Office Visit Podiatry Tom Titus DPM [place], [place] [address] (Wo rk) 09/08/2022 Office Visit Internal Medicine Janay Hay MD [facility] GENERAL INTERNAL MEDICINE [place], [place] [address] (Wo rk) 10/12/2059 Hospital Encounter Surgery Jim Hanley MD [facility] SPINE CENTER [place], [place] [address] (Wo rk) Scheduled Procedures Name [...] Name Priority Date/Time Associated Comments Diagnosis HC THYROID STIMULATING Routine 10/29/2020 3:19 PM Hypothyroidi sm, Results for this HORMONE, SERUM EST unspecified type procedure are in the results section. HC HEMOGLOBIN A1C Routine 10/29/2020 3:19 PM Controlled type 2 Results for this EST diabetes mellitus procedure are in without the results complication, section. unspecified whether penitentiary insulin use COMPREHENSIVE Routine 10/29/2020 3:19 PM Controlled type 2 Res ults for this METABOLIC PANEL EST diabetes mellitus procedu re are in (NON-FASTING) without the results complication, section. unspecified whether penitentiary insulin use documented in this encounter Results (ABNORMAL) Comprehensive metabolic panel (non-fasting) (10/29/2020 3:19 PM EST) P athologist Signature Glucose Lvl 330 (H) 65 - 199 [facility] mg/dL [facility] Comment: Diabetes: >=200 mg/dL plus symp toms BUN 15 8 - 18 mg/dL [facility] Creatinine 0.82 0.70 - 1.20 mg/dL [facility] [...] estions. Chloride 100 98 - 107 mmol/L [facility] CO2 26 22 - 31 mmol/L [facility] Anion Gap 10 5 - 15 mmol/L [facility] Calcium 9.2 8.5 - 10.5 mg/dL [facility] Total Protein 6.7 6.1 - 8.0 gm/dL [facility] Albumin 4.0 3.2 - 5.2 gm/dL [facility] AST 10 0 - 30 unit/L [facility] ALT 11 0 - 30 unit/L [facility] Alk Phos 78 35 - 105 unit/L [facility] Total Bilirubin 0.2 0.2 - 1.3 mg/dL [facility] Estimated GFR 82 >=60 mL/min/1.73 m?? [facility] Comment: This patient? s [...] Organization Address City/State/[place] [address] (ABNORMAL) Hemoglobin A1c (10/29/2020 3:19 PM EST) Analysis Performed At Patho logist Time Signature Hemoglobin A1C 7.7 (H) 4.3 - 5.6 [facility] Comment: Reference Range: 4.3 - [...] 36: Suppl. 1, S67-74 Est Avg Gluc 175 mg/dL [facility] Comment: eAG equivalents for HbA1c percentages: HbA1c(%) ?eAG(mg/dL) 6.0 ?126 6.5 ?140 7.0 ?154 7.5 ?169 8.0 ?183 8.5 ?197 9.0 ?212 9.5 ?226 10.0 ? 240 Limitations: The eAG calculation has not been validated on women, individuals below 18 years old and above 70 years old, and individuals with hemoglobinopathies. Additional resources are available on [facility] ADA website. Steve CHAO, Bhumi J, Kay R, et al. ??Tr anslating the A1C assay into estimated average glucose values. ??Diabetes Care 2008:31(8):5221-7371. Specimen Anatomical Collection Method Collection Time Receive d Time (Source) Location / / Volume Laterality Blood specimen 10/29/2020 3:19 PM 021 3:32 (specimen) EST PM EST Resulting Agency Comment Spec In Lab Tom Hay MD CHEMISTRY ORDERABLES Performing Organization Address City/[facility]/[place] [address] TSH (10/29/2020 3:19 PM EST) P athologist Signature TSH 1.84 0.27 - 4.20 [facility]DA mcIU/mL [facility] Specimen Anatomical Collection Method Collection Time Receive d Time (Source) Location / / Volume Laterality Blood specimen 10/29/2020 3:19 PM 021 3:32 (specimen) EST PM EST Resulting Agency Comment Spec In Lab Tom Hay MD CHEMISTRY ORDERABLES Performing Organization Address City/[facility]/[place]IP [place] [address] documented in this encounter Visit Diagnoses Diagnosis Hypothyroidism, unspecified type Controlled type 2 diabetes mellitus with out complication, 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
--- OUTSIDE RECORDS SUMMARY | 2022-07-12 00:47 | XMS_ITS | Encounter Summary ---
:1965 Author Organization [facility] Address [facility] [address] [place] [address] Care Team Providers Name Role Phone Tom Hay MD Primary Care Provider Encounter Details Date Type Department Care Team Description 11/22/2020 Laboratory Appointment Lab at [facility] Hypothyroidism, unspecified type; [facility] Cervical spondylosis with myelopathy; Drive DDD (degenerative disc disea se), [place] [phone] Social History Tobacco Use Types Packs/Day Years [...] MD [facility] PLASTIC SURGERY [place], [place] [address] (Wo rk) 08/19/2022 Office Visit Podiatry Tom Titus DPM [place] [id number] (Wo rk) 09/08/2022 Office Visit Internal Medicine Janay Hay MD [facility] GENERAL INTERNAL MEDICINE [place] [phone] (Wo rk) 10/12/2059 Hospital Encounter Surgery Jim Hanley MD [facility] SPINE CENTER [place], [place] [address] (Wo rk) Scheduled Procedures Name [...] Priority Date/Time Associated Diagnosis Comme nts HEMOGRAM Routine 11/22/2020 2:15 PM Cervical spondylosis R esults for this EST with myelopathy procedure are in DDD (degenerative the result s disc disease), section. cervical DIFFERENTIAL, Routine 11/22/2020 2:15 PM Cervical spondylosis Results for this AUTOMATED EST with myelopathy procedure are in DDD (degenerative the result s disc disease), section. cervical HC CBC,PLT & AUTO Routine 11/22/2020 2:15 PM Cervical spondylo sis DIFF EST with myelopathy DDD (degenerative disc disease), cervical HC THYROID STAT 11/22/2020 2:15 PM Hypothyroidism, Result s for this STIMULATING HORMONE, EST unspecified type pro cedure are in SERUM the results section. BASIC METABOLIC Routine 11/22/2020 2:15 PM Cervical spondylosi s Results for this PANEL (NON-FASTING) EST with myelopa thy procedure are in DDD (degenerative the result s disc disease), section. cervical documented in this encounter Results (ABNORMAL) Differential, Automated (11/22/2020 2:15 PM EST) [facility] Method Time Signature Neutrophils % 58.6 % [facility] Neutr Abs (ANC) 6.98 (H) 1.70 - [facility] 6.10 [facility] x10(3)/[facility] LABORATORY Lymphocytes % 31.7 % [facility] Lymphocytes Abs 3.8 (H) 0.9 - 3.2 [facility] x10(3)/[facility] LABORATORY Monocytes % 5.5 % [facility] Monocyte Abs 0.7 0.3 - 0.9 [facility] x10(3)/[facility] LABORATORY Eosinophils % 2.8 % [facility] Eosinophils Abs 0.3 0.0 - 0.4 [facility] x10(3)/[facility] LABORATORY Basophils % 0.7 % [facility] Basophils Abs 0.1 0.0 - 0.1 [facility] x10(3)/[facility] LABORATORY Immature Gran % 0.70 % [facility] [...] Gran Abs 0.08 (H) 0.00 - 0.04 x10(3)/[facility] LABORATORY Specimen Anatomical Collection Method Collection Time Receive d Time (Source) Location / / Volume Laterality Blood specimen 11/22/2020 2:15 PM 021 2:21 (specimen) EST PM EST Resulting Agency Comment Spec In Lab Rashard Hanley MD HEMATOLOGY ORDERABLES Performing Organization Address City/State/[place] [address] (ABNORMAL) Hemogram (11/22/2020 2:15 PM EST) Analysis Performed At Patho logist Time Signature WBC 11.9 (H) 4.0 - 9.5 [facility] x10(3)/[facility] LABORATORY RBC 4.70 4.00 - [facility] 5.21 [facility] x10(6)/[facility] LABORATORY Hemoglobin 14.4 11.7 - [facility] 15.5 gm/dL [facility] LABORATORY Hematocrit 43.1 35.7 - [facility] 45.8 % [facility] LABORATORY MCV 91.7 82.6 - [facility] 94.4 [facility] LABORATORY MCH 30.6 27.1 - [facility] 32.0 pg [facility] LABORATORY MCHC 33.4 31.7 - [facility] 35.0 gm/dL [facility] LAB[facility] Platelets 336 145 - 357 [facility] x10(3)/[facility] LABORATORY RDWSD 42.5 37.0 - [facility] 46.0 [facility] LABORATORY RDWCV 12.6 11.5 - [facility] 14.1 % [facility] LABORATORY MPV 10.1 7.6 - 12.9 [facility] LABORATORY nRBC % Auto 0.0 % [facility] LABOR[facility]ORY nRBC Abs Auto 0.000 0.000 - [facility] 0.000 [facility] x10(3)/[facility] LABORATORY Specimen Anatomical Collection Method Collection Time Receive d Time (Source) Location / / Volume Laterality Blood specimen 11/22/2020 2:15 PM 021 2:21 (specimen) EST PM EST Resulting Agency Comment Spec In Lab Rashard Hanley MD HEMATOLOGY ORDERABLES Performing Organization Address City/State/[place] [address] (ABNORMAL) Basic Metabolic Panel (non-fasting) (11/22/2020 2:15 PM EST) P athologist Signature Glucose Lvl 299 (H) 65 - 199 [facility] mg/dL [facility] Comment: Diabetes: >=200 mg/dL plus symp toms BUN 11 8 - 18 mg/dL [facility] Creatinine 0.68 (L) 0.70 - 1.20 mg/dL [facility] Sodium 135 135 - 145 mmol/L [facility] Potassium 3.9 3.5 - 5.0 mmol/L [facility] Comment: Please note: ??Patients with WBC >100,00 0 may have falsely elevated Potassium levels. ??For accurate Potassium quantif ication in these patients send serum separator tube (gold top) for subsequent determinations. ??Contact the Clinical Chemistry Laboratory if there are any qu estions. Chloride 99 98 - 107 mmol/L [facility] CO2 27 22 - 31 mmol/L [facility] Anion Gap 9 5 - 15 mmol/L [facility] LAB[facility]ORY Calcium 9.4 8.5 - 10.5 mg/dL [facility] Estimated GFR 100 >=60 mL/min/1.73 m?? [facility] LABORATORY [...] Organization Address City/State/[place] [address] TSH (11/22/2020 2:15 PM EST) P athologist Signature TSH 1.79 0.27 - 4.20 [facility] mcIU/mL [facility] LABORATORY Specimen Anatomical Collection Method Collection Time Receive d Time (Source) Location / / Volume Laterality Blood specimen 11/22/2020 2:15 PM 021 2:21 (specimen) EST PM EST Resulting Agency Comment Spec In Lab Tom Hay MD CHEMISTRY ORDERABLES Performing Organization Address City/State/[place] [address] documented in this encounter Visit Diagnoses Diagnosis Hypothyroidism, unspecified type Cervical spondylosis with myelopathy DDD (degenerative disc disease), cervica l Degeneration of cervical intervertebral disc documented in this encounter Care Teams Civil Process Server Relationship Specialty Start Date End Date Tom Hay MD PCP - General General Internal Medicine 09/15/18 [facility] [place] [address] documented as of this encounter
--- OUTSIDE RECORDS SUMMARY | 2022-07-12 00:47 | XMS_ITS | Encounter Summary ---
:1965 Author Organization 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 SuspensionIndications: Indications: allergic rhinitis Allergic [...] days. acetaminophen (Tylenol) Take 2 tablets by 0 12/01 500 mg Tablet mouth every 8 hours. 1 oxyCODONE (Roxicodone) 5 Take 1 tablet by 42 tablet 0 12/01 mg Tablet mouth every 4 hours 1 as needed for Pain. polyethylene glycoL Take 17 g by mouth 2 0 2020 (Miralax) 17 gram/dose times daily as 1 Powder needed for up to 30 days. senna-docusate Take 2 tablets by 0 12/01/2020 (Pericolace) 8.6-50 mg mouth 2 times daily 1 Tablet as needed for Constipation for up to 30 days. oxyCODONE (Roxicodone) 5 Take 1 tablet by 42 tablet 0 12/01 mg Tablet mouth every 4 hours 1 as needed for Pain. acetaminophen (Tylenol) Take 2 tablets by 30 tablet 0 12/01 500 mg Tablet mouth every 8 hours. 1 cephALEXin (Keflex) 500 Take 500 mg by mouth 0 mg Capsule 4 times daily. 1 Completes antibiotic course on 11-29-20 valACYclovir (VALTREX) 1 Take 1 tablet by 30 tablet 3 10/26 gram TabletIndications: mouth 2 times daily. 2 Oral lesion pleskqacppl-neepmasba-oqx Inhale 1 Inhalation 60 each 3 0 [...] vitamin with Take 1 tablet by 0 awnkpysn-Dt-Ewvf-FA mouth daily. 2 Tablet metroNIDAZOLE Apply topically [...] MD [facility] PLASTIC SURGERY [place], [place] [address] (Wo rk) 08/19/2022 Office Visit Podiatry Tom Titus DPM [place], [place] [address] (Wo rk) 09/08/2022 Office Visit Internal Medicine Janay Hay MD [facility] GENERAL INTERNAL MEDICINE [place], [place] [address] ([facility]) 10/12/2059 Hospital Encounter Surgery Jim Hanley MD [facility] SPINE CENTER [place], [place] [address] (Wo rk) Scheduled Procedures Name [...] Name Priority Date/Time Associated Diagnosis Comme nts COVID-19 PCR Routine 11/27/2020 10:58 AM Results for this EST procedure are i n the results section . documented in this encounter Results COVID-19 PCR (11/27/2020 10:58 AM EST) [facility] Method Time Signature SARS-CoV-2 Not Detected Not Detected [facility] Comment: This result should be interpreted [...] of CO VID-19 is performed using the Aptima SARS Co-V-2 Assay on the PromoJam System (Casabu.) as authorized by the FDA issued Emergency Use Authorization ( EUA). This assay is intended for In-vitro Diagnostic (IVD) use with nasop haryngeal swabs collected from individuals meeting the CDC criteria for testing. The assay is performed based on the instructions for use and addition al guidance provided by the FDA. Testing is performed in the Microbiology Laboratory within the Department of Pathology and Laboratory Medicine at [facility], certified under the Clinical Laboratory Improvement Amendments of 1988 (CLIA), 42 U.S.C. section 263a, to perform high- complexity tests. Assay performance has been verified according to clinical labo ratory regulatory requirements. Test results are provided above. A [...] due to a vari ety of factors. ??Collection of a new sample for repeat testing is recommended in the case of an invalid result. CDC COVID-19 criteria for testing on hum an specimens and clinical management guidance information are available at [facility] Coronavirus Disease 2019 (COVID-19) webpage under Information fo r Healthcare Professionals (https://www.cdc.gov/coronavirus/2019-nc ov/hcp/index.html). Additional information about this and ot her EUA tests can be found in provider and patient fact sheets at the following FDA website: https://www.fda.gov/medical-devices/zwxhjrsuedy-xxqnudt-2605-mlfke-19-ubycgsfew- ppz-muvrtxhwhwwuye-mezeymf-devices/vwzzn-cdupqxvjenf-tmqn SARS-Cov-2 RNA Source FILM WASHER Swab [facility] Specimen (Source) Anatomical Collection Method Collection Time Re ceived Time Location / / Volume Laterality Nasopharyngeal swab Other / Unknown 11/27/2020 10:58 0 11/28/2020 (specimen) AM EST 7:11 AM EST Resulting Agency Comment Spec In Lab Rashard Hanley MD MICROBIOLOGY - GENERAL ORDER NERIS Performing Organization Address City/State/[place] [address] documented in this encounter Visit Diagnoses Not on filedocumented in this encounter Care Teams Filament Coil Winder Relationship Specialty Start Date End Date Tom Hay MD PCP - General General Internal Medicine 09/15/18 [facility] [place] [address] documented as of this encounter
--- OUTSIDE RECORDS SUMMARY | 2022-07-12 00:47 | XMS_ITS | Encounter Summary ---
:1965 Author Organization [facility] [place] [address] Care Team Providers Name Role Phone Tom Hay MD Primary Care Provider Reason for Referral Diagnostic Test (Routine) - Closed Specialty Diagnoses / Procedures Referred By Contact Refer red To Contact Radiology Diagnoses DDD (degenerative disc disease), cervical Rashard Hanley MD [facility] Rad Ct Scan Procedures [place] [address] [place] [address] Referral ID Status Reason Start Date Expiration Date Visits V isits Requested Authorized [id number] Closed Specialty 09/18/2020 03/19/2022 1 1 Service Requested Reason for Visit Diagnostic Test (Routine) - Closed Specialty Diagnoses / Procedures Referred By Contact Refer red To Contact Radiology Diagnoses DDD (degenerative disc disease), cervical Rashard Hanley MD [facility] Rad Ct Scan Procedures [place] [address] [place] [address] Referral ID Status Reason Start Date Expiration Date Visits V isits Requested Authorized [id number] Closed Specialty 09/18/2020 03/19/2022 1 1 Service Requested Encounter Details Date Type Department Care Team Description 09/18/[address] [facility] at [facility] Rashard Hanley DDD (degenerative [facility] MD Jensen disc disease), Drive [facility] cervical [place], [place] CENTER [address] SPINE CENTER [phone] [place] [address] Social History Tobacco Use Types Packs/Day Years [...] 2 sprays by Nasal 0 27.5 mcg/actuation [place], route daily. SuspensionIndications: Indications: allergic rhinitis Allergic Rhinitis blood sugar diagnostic Use as instructed to 300 each 3 06/2020 strips StripIndications: check BG 4 times 1 Controlled type 2 daily. 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 2 Tablet metroNIDAZOLE Apply topically [...] Surgery Peña Woodward MD [facility] PLASTIC SURGERY [place], [place] [address] ([place] ordonez) 08/19/2022 Office Visit Podiatry Tom Titus DPM [place], [place] [address] ([place]) 09/08/2022 Office Visit Internal Medicine Janay Hay MD [facility] GENERAL INTERNAL MEDICINE [place], [place] [address] ([place] ord[place]) 10/12/2059 Hospital Encounter Surgery Jim Hanley MD [facility] SPINE CENTER [place], [place] [address] ([place] ordone[place]) Scheduled Procedures Name Priority Associated [...] Associated Diagnosis Comme nts CT CERVICAL SPINE Routine 09/18/2020 1:38 PM DDD (degenerative Results for this WO CONTRAST EST disc disease), procedure are in cervical the results section. documented in this encounter Results CT Cervical [...] please contact e number below. ? Narrative 09/18/2020 2:17 PM EST EXAMINATION: CT CERVICAL SPINE WO CONTRAST CLINICAL HISTORY: Cervical radiculopathy pre operative study TECHNIQUE: CT cervical spine performed without intr avenous contrast administration. COMPARISON: CT C-spine 11/28/2015. MRI C-spine . FINDINGS: Anterolisthesis of 2 mm at C3-C4 and C4- C5. Straightening of the normal cervical lordosis. Degenerative disc disease with pxgbcsed-iw-mjjivl disc space height loss at C5-C6 and [...] normal cervical lordosis. Degenerative disc disease with enqnyaqs-vc-midtst disc space height loss at C5-C6 and [...] disc documented in this encounter Care Teams Manager Architecture Relationship Specialty Start Date End Date Tom Hay MD PCP - General General Internal Medicine 09/15/[address] [facility] [address] GENERAL INTERNAL [place] [address] documented as of this encounter
--- OUTSIDE RECORDS SUMMARY | 2022-07-12 00:47 | XMS_ITS | Encounter Summary ---
:1965 Author Organization [facility] [place] [address] Care Team Providers Name Role Phone Tom Hay MD Primary Care Provider Encounter Details Date Type Department Care Team Description 11/08/2020 [facility] Kevin [place]añ[place] [address] Social History Tobacco Use Types Packs/Day [...] Telephone Encounter - Nenita Hawkins LPN - 11/08/2020 10:40 AM EST Hope called requesting a letter for her work, she wants it to include, type of surgery, restrictions, time away from work. She requests 2 weeks OOW. Will route to Dr. Hanley for specifics. And do letter as he recommends and mail to [facility], she is scheduled for C6 corpectomy with C5-7 instrumentationand arthrodesis local autograft spinal cord monitoring application and removal of Suhail tongs on 11-30-20 documented in this encounter Plan of Treatment Upcoming Encounters Date Type Specialty Care Team Description 08/06/2022 Office Visit Plastic Surgery Peña Woodward MD [facility] PLASTIC SURGERY [place] [address] ([place] ordonez) 08/19/2022 Office Visit Podiatry Tom Titus DPM [place], [place] [address] ([place] ordonez) 09/08/2022 Office Visit Internal Medicine Janay Hay MD [facility] GENERAL INTERNAL MEDICINE [place], [place] [address] ([place] ordonez) 10/12/2059 Hospital Encounter Surgery Jim Hanley MD [facility] SPINE CENTER [place], [place] [address] (Wo rk) Scheduled Procedures Name [...] on filedocumented in this encounter Care Teams Utility Maintenance Worker Relationship Specialty Start Date End Date Tom Hay MD PCP - General General Internal Medicine 09/15/18 [facility] [place] [address] documented as of this encounter
--- OUTSIDE RECORDS SUMMARY | 2022-07-12 00:48 | XMS_ITS | Encounter Summary ---
:1965 Author Organization [facility] Address [facility] [place] [address] Care Team Providers Name Role Phone Tom Hay MD Primary Care Provider Reason for Visit Reason Comments Medication Refill Encounter Details Date Type Department Care Team Description 07/09/2020 Refill Internal Medicine at [facility] Tom Hay [place] [facility] [place] [phone] GENERAL INTERNAL MEDICINE [phone] [place], [place] [address] (Wo rk) Social History Tobacco [...] Office Visit Plastic Surgery Peña Woodward MD [facility] PLASTIC SURGERY [place] [phone] ( rk) 08/19/2022 Office Visit Podiatry Tom Titus DPM [place] [phone] ([facility]) 09/08/2022 Office Visit Internal Medicine Janay Hay MD [facility] GENERAL INTERNAL MEDICINE [place], [place] [address] ( rk) 10/12/2059 Hospital Encounter Surgery Jim Hanley MD [facility] SPINE CENTER [place], [place] [address] ([place] ordonez) Scheduled Procedures Name Priority Associated [...] documented as of this encounter Care Teams Guide Tour Relationship Specialty Start Date End Date Tom Hay MD PCP - General General Internal Medicine 09/15/18 [facility] GENERAL [place] [address] documented as of this encounter
--- OUTSIDE RECORDS SUMMARY | 2022-07-12 00:48 | XMS_ITS | Encounter Summary ---
:1965 Author Organization [facility] [place] [address] Care Team Providers Name Role Phone Tom Hay MD Primary Care Provider Encounter Details Date Type Department Care Team Description 04/25[facility]2020 [facility] [address] [facility] [place] [address] [place] [address] [phone] (Wo rk) Social History Tobacco Use Types [...] MD [facility] PLASTIC SURGERY [place] [phone] ( rk) 08/19/2022 Office Visit Podiatry Tom Titus DPM [place], [place] [address] ( rk) 09/08/2022 Office Visit Internal Medicine Janay Hay MD [facility] GENERAL INTERNAL MEDICINE [place], [place] [address] (Wo rk) 10/12/2059 Hospital Encounter Surgery Jim Hanley MD [facility] SPINE CENTER [place], [place] [address] (Wo rk) Scheduled Procedures Name [...] as of this encounter Visit Diagnoses Diagnosis Scalp psoriasis Other psoriasis documented in this encounter Care Teams Can Sealer Relationship Specialty Start Date End Date Tom Hay MD PCP - General General Internal Medicine 09/15/18 [facility] [place] [address] documented as of this encounter
--- OUTSIDE RECORDS SUMMARY | 2022-07-12 00:48 | XMS_ITS | Encounter Summary ---
:1965 Author Organization [facility] [place] [address] Care Team Providers Name Role Phone Tom Hay MD Primary Care Provider Reason for Visit Reason Onset Date Comments Medication Refill 02/02/2020 Encounter Details Date Type Department Care Team Description 02/02/2020 Refill Internal Medicine [place] [facility] Candie Holley [facility] [place] [address] Social History Tobacco Use Types Packs/Day [...] this encounter Miscellaneous Notes Telephone Encounter - Candie Holley - 02/02/2020 10:30 AM EDT The pt states she needs a new script for the Valtrex script to state Brand Only she cannot use thegeneric. Pt states she is having issues with her vertigo again. documented in this encounter Plan of Treatment Upcoming Encounters Date Type Specialty Care Team Description 08/06/2022 Office Visit Plastic Surgery Peña Woodward MD [facility] PLASTIC SURGERY [place] [address] (Wo rk) 08/19/2022 Office Visit Podiatry Tom Titus DPM [place] [phone] (Wo rk) 09/08/2022 Office Visit Internal Medicine Janay Hay MD [facility] GENERAL INTERNAL MEDICINE [place] [phone] ( rk) 10/12/2059 Hospital Encounter Surgery Jim Hanley MD [facility] SPINE CENTER [place] [address] (Wo josé luis) Scheduled Procedures Name Priority [...] as of this encounter Visit Diagnoses Diagnosis Vertigo Dizziness and giddiness documented in this encounter Care Teams Marine Reporter Relationship Specialty Start Date End Date Tom Hay MD PCP - General Internal Medicine 09/15/18 [facility] [place] [address] documented as of this encounter
--- OUTSIDE RECORDS SUMMARY | 2022-07-12 00:48 | XMS_ITS | Encounter Summary ---
:1965 Author Organization [facility] [place] [address] Care Team Providers Name Role Phone Tom Hay MD Primary Care Provider Reason for Visit Reason Onset Date Comments Pharmacy Call 02/07/2020 Encounter Details Date Type Department Care Team Description 02/07/2020 Telephone Internal Medicine at [facility] [place] Candie Holley Pharmacy Call [facility] [place] [address] Social History Tobacco Use Types Packs/Day [...] this encounter Miscellaneous Notes Telephone Encounter - Yadira Lakhani RN - 02/07/2020 4:[address] Reese I resent as generic- although it still seemed to say brand only after I deleted it. Please clarify that generic is fine with me (But pt wants brand- she can pay the extra if she really wants it- I told her it was the same) Call to patient explained this she agrees to generic will call pharmacy to clarify and update in chart. Call to [facility] informed may fill with generic medication per Dr Reese. Telephone Encounter - Yadira Lakhani RN - 02/07/2020 1:40 PM EDT Call to patient no answer no voice mail unable to leave message will forward this to provider. Telephone Encounter - Candie Holley - 02/07/2020 10:19 AM EDT Pharmacy or caller: [facility] RX Medication: valtrex Message: Pharmacy states the pt's insurance will not cover the brand without a PA. However they willcover the generic valacyclovir. The pharmacy is unsure which why the pt or the provider would like to go with this medication. Please call with an update. Did you contact your pharmacy?: x documented in this encounter Plan of Treatment Upcoming Encounters Date Type Specialty Care Team Description 08/06/2022 Office Visit Plastic Surgery Peña Woodward MD [facility] PLASTIC SURGERY [place], [place] [address] (Wo rk) 08/19/2022 Office Visit Podiatry Tom Titus DPM [place], [place] [address] (Wo rk) 09/08/2022 Office Visit Internal Medicine Janay Hay MD [facility] GENERAL INTERNAL MEDICINE [place], [place] [address] (Wo rk) 10/12/2059 Hospital Encounter Surgery Jim Hanley MD [facility] SPINE CENTER [place], [place] [address] (Wo rk) Scheduled Procedures Name Priority Associated [...] this encounter Visit Diagnoses Diagnosis Oral lesion - Primary Other and unspecified diseases of the or al soft tissues documented in this encounter Care Teams Independent Insurance Adjuster Relationship Specialty Start Date End Date Tom Hay MD PCP - General General Internal Medicine 09/15/18 [facility] GENERAL [place] [address] documented as of this encounter
--- OUTSIDE RECORDS SUMMARY | 2022-07-12 00:48 | XMS_ITS | Encounter Summary ---
:1965 Author Organization [facility] Address [facility] [place] [address] Care Team Providers Name Role Phone Tom Hay MD Primary Care Provider Encounter Details Date Type Department Care Team Description 08/14/2020 Telephone [facility] [place] [facility] [place] [facility] Aminata Harris [facility] Kevin castañ[place] [address] Social History Tobacco Use Types Packs/Day [...] this encounter Miscellaneous Notes Telephone Encounter - HarrisNara becerraicia Elva - 08/14/2020 12:24 PM EST Received call from patient stating I just got a call from some girl telling me that apparently Dr. Phillips has better things to do on the day of my appointment and so I need to reschedule. I told thepatient that Dr. Phillips unfortunately does need to go to the operating room on 08/29 (the day of her scheduled appt) and that we would unfortunately have to reschedule her appointment. I apologized for needing to reschedule and the patient stated You tell him that I had to go through so much to get this appointment. I had to take the day off from work, which was a bear! I had to realign other appointments. And now I'm going to have to take another day off from work! This is not okay! Apologized again to patient, and offered her an appointment with Dr. Phillips on 09/10/20. Patient became angry yelling September 10? That's over two weeks later! This is ridiculous! You tell him this is ridiculous! No, that will not work! I need a Thursday or Thursday appointment! Offered patient next available Thursday/Thursday appointment on September 18. Patient yelled September 18? This is ridiculous! But he has better things to do so now I have to change everything! No, this doesn't work for me, but Idon't have a choice! Informed patient that I understood her frustration, apologized again for needing to reschedule her appointment and asked her if she was wanting to schedule the appointment on September [address] Hanley. Patient said No, it doesn't work for me, but I don't have a choice! So yes, I am taking the appointment! And you tell him that my time is just as important as his time! But he makes more money bringing someone else to the operating room than he does seeing me! But I see how it is! You tell him that I am not happy about this! This is ridiculous! I was scheduled over a month ago for this appointment and I don't appreciate getting a call the week before my appointment tellingme that I have to reschedule! My time is just as important as his! You tell him that! Informed patient that I would pass along her concerns to leadership. Patient then proceeded to end the call. documented in this encounter Plan of Treatment Upcoming Encounters Date Type Specialty Care Team Description 08/06/2022 Office Visit Plastic Surgery Peña Woodward MD [facility] PLASTIC SURGERY [place] [phone] (Wo rk) 08/19/2022 Office Visit Podiatry Tom Titus DPM [place], [place] [address] (Wo rk) 09/08/2022 Office Visit Internal Medicine Janay Hay MD [facility] GENERAL INTERNAL MEDICINE [place], [place] [address] (Wo rk) 10/12/2059 Hospital Encounter Surgery Jim Hanley MD [facility] SPINE CENTER [place], [place] [address] (Wo rk) Scheduled Procedures Name [...] on filedocumented in this encounter Care Teams Center Director Relationship Specialty Start Date End Date Tom Hay MD PCP - General Internal Medicine 09/15/18 [facility] GENER[place] [address] documented as of this encounter
--- OUTSIDE RECORDS SUMMARY | 2022-07-12 00:48 | XMS_ITS | Encounter Summary ---
:1965 Author Organization [facility] Address [facility] [place] [address] Care Team Providers Name Role Phone Tom Hay MD Primary Care Provider Encounter Details Date Type Department Care Team Description 07/09/2020 Orders Only Internal Medicine at [facility] Tom Hay MD [facility] [place] [address] GENERAL INTERNAL [phone] MEDICINE [place], [place] [address] (Wo rk) Social History Tobacco [...] Woodward MD [facility] PLASTIC SURGERY [place] [address] ( rk) 08/19/2022 Office Visit Podiatry Tom Titus DPM [place], [place] [address] (Wo rk) 09/08/2022 Office Visit Internal Medicine Janay Hay MD [facility] GENERAL INTERNAL MEDICINE [place], [place] [address] (Wo rk) 10/12/2059 Hospital Encounter Surgery Jim Hanley MD [facility] SPINE CENTER [place], [place] [address] (Wo [...] on filedocumented in this encounter Care Teams Pharmaceutical Compounding Supervisor Relationship Specialty Start Date End Date Tom Hay MD PCP - General General Internal Medicine 09/15/18 [facility] GENERAL [place] [address] documented as of this encounter
--- OUTSIDE RECORDS SUMMARY | 2022-07-12 00:48 | XMS_ITS | Encounter Summary ---
:1965 Author Organization [facility] [place] [address] Care Team Providers Name Role Phone Tom Hay MD Primary Care Provider Encounter Details Date Type Department Care Team Description 04/11/2020 [facility] (Primary Dx[facility] [address] [place] [address] [facility] [place], [place] [address] Social History Tobacco Use Types [...] documented as of this encounter Progress Notes Camilo Coffey MD - 04/11/2020 5:00 PM EDT Images from the original note were not included. Dermatology Dermatology at [facility] FOLLOW-UP Patient is established to this clinic, but new to me. Chief Complaint: psoriasis History of Present Illness Emmanuelle Bynum is a 54 y.o. female with history of psoriasis who presents with the following concerns: ?? History of scalp psoriasis for many years [...] alcohol and tobacco use) Since Last Visit 03/06/2020: No significant interval history. Skin Cancer History No personal history of skin cancer No family history of skin cancer Allergies Clonidine (pf); Codeine; Metformin; and Methadone Medications has a current medication list which includes the following prescription(s): levothyroxine, levothyroxine, betamethasone-calcipotriene, valacyclovir, metformin xr, duloxetine dr, meclizine, amlodipine, semaglutide, calcipotriene, bandar pen needle, trelegy ellipta, albuterol, ipratropium-albuterol, blood- glucose meter, lantus solostar u-100 insulin, naratriptan, clotrimazole, estradiol, fluconazole, nystatin, ondansetron odt, prednisone, prednisone, lancets, blood sugar diagnostic strips, pen needle, diabetic, insulin lispro, bd alcohol swabs, montelukast, tiotropium, clobetasol-emollient, esomeprazole, methocarbamol, hydrochlorothiazide, ondansetron, ibuprofen, glipizide, vitamin with hawuxhwe-rb-jmlo-fa, metronidazole, varenicline, atorvastatin, cholecalciferol (vitamin d3), vitamin d, cyclosporine, fluticasone, promethazine, alprazolam, fluoxetine, and aripiprazole. Social History Tobacco use - current Alcohol use - none Review of Systems Significant for no pertinent and acute changes in constitutional, other skin systems upon specific queries. Examination Standby: Gillian Bunch, TY Pain 0/10. Mood is appropriate. Well developed, well-nourished in no apparent distress, alert and oriented to time, person, place and situation. Skin Type: II. Focused examination of the skin of the scalp, face and ears significant for the following: ?? Bright red 6 cm plaque with scant scale on the occipital scalp; [place] 1-2m patch without scale behind the right ear Assessment and Plan Psoriasis, Scalp Surface area: 1%. PASI score not calculated given the limited evaluation. Responsive to combination of topical therapy and phototherapy. Previous trial of Excimer laser/narrowband UVB successful though limited. Counseled: Psoriasis, associations with psoriatic arthritis and other internal inflammation. Recommend combination of phototherapy and topical steroids and nonsteroidals. However, further discussed systemic therapies including methotrexate, adalimumab and apremilast. Answered all questions. Patient would like to pursue a combination of phototherapy and topical treatment. Given this and her previous response to phototherapy, recommend home unit, such as [facility]. Patient agrees to plan. ?? Increase taclonex suspension twice daily five days out of the week. Counseled: risks of topical steroids, including but not limited to atrophy, dyspigmentation. ?? Recommend spot phototherapy with [facility]; message to be sent to Namita Perez LPN to assist patient in acquiring home unit. Instructions to be phototherapy 3 times a week as needed for flares Follow-up: Based on start of phototherapy. Return to clinic for worsening psoriasis or new dermatitis. Note initiated by TY Smith CMA has performed the documentation for this encounter in the presence of and acting as a scribe for Dr. Coffey. I performed the above scribed service and agree with the accuracy of the documentation in this encounter. Camilo Coffey MD [facility] Section of Dermatology [facility] documented in this encounter Plan of Treatment Upcoming Encounters Date Type Specialty Care Team Description 08/06/2022 Office Visit Plastic Surgery Peña Woodward MD [facility] PLASTIC SURGERY [place], [place] [address] (Wo rk) 08/19/2022 Office Visit Podiatry Tom Titus DPM [place], [place] [address] (Wo rk) 09/08/2022 Office Visit Internal Medicine Janay Hay MD [facility] GENERAL INTERNAL MEDICINE [place], [place] [address] (Wo rk) 10/12/2059 Hospital Encounter Surgery Jim Hanley MD [facility] SPINE CENTER [place], [place] [address] (Wo rk) Scheduled Procedures Name [...] this encounter Visit Diagnoses Diagnosis Scalp psoriasis - Primary Other psoriasis documented in this encounter Care Teams Medical Record Assistant Relationship Specialty Start Date End Date Tom Hay MD PCP - General Internal Medicine 09/15/18 [facility] [place] [address] documented as of this encounter
--- OUTSIDE RECORDS SUMMARY | 2022-07-12 00:48 | XMS_ITS | Encounter Summary ---
:1965 Author Organization [place] [address] Care Team Providers Name Role Phone Tom Hay MD Primary Care Provider Encounter Details Date Type Department Care Team Description 07/23/2020 Orders Only [facility] Dieter Phillips DD D (degenerative disc at [facility] disease), [facility] [place] [address] [facility] [phone] [place] [id number] Social History Tobacco Use Types Packs/Day Years [...] [facility] [place] [id number] ( rk) 08/19/2022 Office Visit Podiatry Tom Titus DPM [place], [place] [address] ([facility]) 09/08/2022 Office Visit Internal Medicine Janay Hay MD [facility]INE [place], [place] [address] (Flores rk) 10/12/2059 Hospital Encounter Surgery Jim Hanley MD [facility] [place], [place] [address] ([place] luis) Scheduled Procedures [...] contact th e number below. ? Narrative 09/18/2020 11:26 AM EST EXAMINATION: XR [...] this report, please contact e number below. Dieter Phillips MD IMG DX ORDERABLES documented in this encounter Visit Diagnoses Diagnosis DDD (degenerative disc disease), cervica l Degeneration of cervical intervertebral disc DDD (degenerative disc disease), cervica l Degeneration of cervical intervertebral disc documented in this encounter Care Teams Scrap Dealer Relationship Specialty Start Date End Date Tom Hay MD PCP - General Internal Medicine 09/15/18 [facility] [place] [address] documented as of this encounter
--- OUTSIDE RECORDS SUMMARY | 2022-07-12 00:48 | XMS_ITS | Encounter Summary ---
:1965 Author Organization [facility] [place] [address] Care Team Providers Name Role Phone Tom Hay MD Primary Care Provider Reason for Referral Consultation (Routine) - Closed Specialty Diagnoses / Procedures Referred By Contact Refer red To Contact [facility] Diagnoses Cervical radicular pain Spine - Cervical radiculopathy/ neural foraminal stenosis/ MRI 07/18/20 in [facility] *last saw [facility] 10/2018 Tom Hay, [facility] enter [address] [place], [place] MEDICINE [phone] [place] [address] Referral ID Status Reason Start Date Expiration Date Visits V isits Requested Authorized [id number] Closed Specialty 07/04/2020 07/04/2021 1 1 Service Requested Diagnostic Test (Routine) - Closed Specialty Diagnoses / Procedures Referred By Contact Refer red To Contact Radiology Diagnoses Cervical radicular pain Tom Hay MD [facility] Rad Mri Procedures MRI Cervical Spine wo Contrast (Generic) [facility] [address] [place], [place] [phone] [place] [address] Referral ID Status Reason Start Date Expiration Date Visits V isits Requested Authorized [id number] Closed Specialty 07/04/2020 01/01/2022 1 1 Service Requested Reason for Visit Reason Comments Follow-up abdominal pain Encounter Details Date Type Department Care Team Description 07/04/2020 Office Visit Internal Medicine at Tom Hay Ch obstructive pulmonary disease with acute exacerbation; [facility] MD Kevin Cervical radicular pain; [facility] Hyp othyroidism, unspecified type; Drive Controlled type 2 diabetes mellitus with out complication, unspecified whether jail insulin use; [place], [place] GENERAL INTERNAL Thrush; [id number] MEDICINE Essential hypertension; [phone] [place], [place] [address] Healthcare maintenance; [phone] Adrenal inciden taloma; (Work) Diabetes mellitus due to underlying cond ition with other oral complications ; Vitamin D deficiency Social History Tobacco Use Types Packs/Day Years [...] Sign Reading Time Taken Comments Blood Pressure 134/85 07/04/2020 2:23 PM EDT Pulse 101 07/04/2020 2:23 PM EDT Temperature 37 ??C (98.6 ??F) 07/04/2020 2:23 PM EDT Respiratory Rate 18 07/04/2020 2:23 PM EDT Oxygen Saturation 98% 07/04/2020 2:23 PM EDT Inhaled Oxygen Concentration - - Weight 91 kg (200 lb 9.6 oz) 07/04/2020 2:23 PM EDT Height 165.1 cm (5' 5) 07/04/2020 2:23 PM EDT Body Mass Index 33.38 07/04/2020 2:23 PM EDT documented in this encounter Patient Instructions Patient InstructionsBraTom cantu MD - 07/04/2020 2:00 PM EDT Stop spiriva Increase duloxetine to 60 Mycelex lozenges for thrush documented in this encounter Progress Notes Tom Hay MD - 07/04/2020 2:00 PM EDT General Internal Medicine - Clinic Note Subjective -Emmanuelle Bynum is a 54 y.o. female presenting for follow up who has Asthma; Hypothyroid; Depression; Sleep apnea; Uncontrolled type 2 diabetes mellitus with hyperglycemia; COPD (chronicobstructive pulmonary disease); Bipolar II disorder; Vitamin D deficiency; Essential hypertension; and Hyperlipidemia on their pertinent problem list. In ED for abd pin- had adrenal and lung nodule noted at [facility] Comes and goes. Lasts few hours and resolves. Cramping. More on the R. Present for a month. HAving GERD despite nexium. Bowel issues- loose, watery. Pain doesn't seem related to bowels. Given anticramping agent. Had colo 1-2 years ago. -DM- on semaglutide for 1.5 years- lost 40#. Vomiting is rare- once/mo. Certain foods. On metformin.Off all insulin. Back on metformin- Fasting 90s to 110; Taking glipizide -changed fluox to dulox- Helping pain, but not radiculopathy. Also with facial pain from TMJ. On just 40. Dpr/anxiety are good. -COPD- trelegy works well. -Vertigo -NEck is bothersome- radicular pain, numbness- 04/05. Dexterity bad. Can be in both arms. On medical MJ, which isn't helping. Numbness worse than in past. Still smoking- tried chantix in past and ran out. Current view: Showing all answers Legend: Triggered a BPA Scoring question Q - Collaborative Care,Support And Assistance Questionnaire (Ccsa) Question 07/04/2020 2:12 PM EDT - Filed by Patient Your provider and care team are interested in your own view of your health. This questionnaire gives you a chance to describe how you are doing. The questionnaire starts by asking information about your general health and continues with more specific questions related to your wellbeing and day-to-day life. We will ask you to complete this questionnaire once a year. Save time by signing up for myD-H and you can complete any questionnaires online before your scheduled appointment. How confident are you that you can control and manage most of your health problems? Somewhat Confident Please respond to each item by selecting one box per row: In general, would you say your health is: Good In general, would you say your quality of life is: Very Good In general, how would you rate your physical health? Good In general, how would you rate your mental health, including your mood and your ability to think? Very Good In general, how would you rate your satisfaction with your social activities and relationships? Excellent To what extent are you able to carry out your everyday physical activities such as walking, climbing stairs, carrying groceries, or moving a chair? Mostly In the past 7 days, how would you rate your pain on average? 9 In the past 7 days, how would you rate your fatigue on average? Severe In general, please rate how well you carry out your usual social activities and roles. (This includes activities at home, at work and in your community, and responsibilities as a parent, child, spouse, employee, friend, etc.) Fair In the past 7 days, how often have you been bothered by emotional problems such as feeling anxious,depressed or irritable? Sometimes Physical Health Score (range: 4 - 20) 11 Mental Health Score (range: 4 - 20) 16 PROMIS PHYSICAL HEALTH SCORE (range: 16 - 68) 37.4 PROMIS MENTAL HEALTH SCORE (range: 21 - 68) 53.3 Essential needs in your day-to-day life can affect your health and wellbeing. Please help your careteam understand more about your essential needs by answering the following questions. What is your housing situation today??? I have housing?? Think about the place you live. Do you have problems with any of the following? None of the above?? How hard is it for you to pay for the very basics like food, housing, heating, medical care, and medications? Very hard SDoH Composite Score (range: 0 - 15) 3 What do you have trouble paying for? Food Housing Utility bills (electric, etc.) Medical needs (medicines, doctor, etc) Debts Other Do you ever need help reading health related materials? No Do you have someone you could call if you need help? Yes In the past 12 months, has lack of transportation kept you from medical appointments, meetings, work or from getting things needed for daily living? Yes, it has kept me from medical appointments or getting medications?? Yes, it has kept me from non-medical meetings, appointments, work, or getting things that I need?? What was your main activity during most of the last 12 months? Household duties Do you have any legal issues that are getting in the way of your health or healthcare? No In the last 12 months, are you or have you been threatened or abused physically, emotionally or sexually by a partner, spouse or family member? No SDoH Composite Score (range: 0 - 15) 3 How confident are you that you can manage your essential needs? Somewhat confident Please select the kind of help you would like for these essential needs: I do not need help The next several questions relate to any emotional distress you may be feeling. For example, this includes feelings of anger, depression, or anxiety. Over the LAST 2 WEEKS, how often have you been bothered by feeling nervous, anxious or on edge? Notat all Over the LAST 2 WEEKS, how often have you been bothered by not being able to stop or control worrying? Not at all GAD2 Subscore (range: 0 - 6) 0 (Brief screen negative) Over the last 2 weeks, how often have you been bothered by little interest or pleasure in doing things? Not at all Over the last 2 weeks, how often have you been bothered by feeling down, depressed, or hopeless? Not at all PHQ-2 Score (range: 0 - 6) 0 (Brief screen negative) In the past year have you had [...] other than those required for medical reasons? No Do you use more than one drug [...] No DAST10 Score (range: -1 - 10) 0 In the past 12 months, have you fallen more than one time? No In the past 12 months, have you injured yourself as result of a fall? Yes In the past 12 months, have you experienced difficulties with balance or walking? Yes Because of a health or physical problem, do you have any difficulty doing the following activities?No, I do not have difficulty with these activities In the past 7 days, did you need help from others to take care of any of the following activities? No, I do not have difficulty with these activities Have you or any of your family members noticed changes in your memory, language or ability to complete routine tasks? No How would you describe your race/ethnicity? White, Non- Who is completing this health questionnaire? I am (patient) Physical Exam Vitals: 07/04/20 1423 BP: 134/85 BP Location (NBP): Right arm Patient Position: Sitting BP Cuff Sizes: Adult (25-34 cm) Pulse: (!) 101 Resp: 18 Temp: 37 ??C (98.6 ??F) TempSrc: Oral SpO2: 98% Weight: 91 kg (200 lb 9.6 oz) Height: 165.1 cm (5' 5) Gen - No apparent distress HEENT - Neck - Lungs - Heart - Abdomen - Extremities - numbness of C7 on L, C6 and 7 on R, some weakness with finger abduction Assessment and Plan 1. Cervical radiculopathy- with duration and constant numbness, will repeat MRI and send to spine center. 2. DM, hypothyroid- chk labs. fingersticks good off insulin, lost wt with GLP1. ?back off glipizide 3. Pain/depression/anxiety- doing better/well on dulox- go up to 60 4. COPD/asthma- trelegy is working well. Also on spiriva- DC that. Thrush from steroid- treat with mycelex, swish/gargle/spit after use of trelegy. ?PFTs elsewhere. 5. Abd pain- c/w cramping 6. Adrenal and lung incidentalomas- get CT report. Chk shilpi/renin, cortisol with labs FU 1mo documented in this encounter Miscellaneous Notes Addendum Note - Tom Hay MD - 07/04/2020 2:00 PM EDT Addended by: TOM HAY on: 07/04/2020 05:48 PM Modules accepted: Orders documented in this encounter Plan of Treatment Upcoming Encounters Date Type Specialty Care Team Description 08/06/2022 Office Visit Plastic Surgery Peña Woodward MD [facility] PLASTIC SURGERY [place], [place] [address] (Wo rk) 08/19/2022 Office Visit Podiatry Tom Titus DPM [place], [place] [address] (Wo rk) 09/08/2022 Office Visit Internal Medicine Janay Hay MD [facility] GENERAL INTERNAL MEDICINE [place], [place] [address] (Wo rk) 10/12/2059 Hospital Encounter Surgery Jim Hanley MD [facility] SPINE CENTER [place], [place] [address] (Wo rk) Scheduled Orders Name Type Priority Associated Diagnoses Order S chedule Comprehensive metabolic Lab Routine Essential hyperte nsion Expected: 07/04/2020 panel (non-fasting) (Approxi mate), Expires: 2020 Hemoglobin A1c Lab Routine Controlled type 2 Expected : 07/04/2020 diabetes mellitus without (A pproximate), complication, unspecified Ex shraddha: 07/04/2021 whether jail insulin use TSH Lab Routine Hypothyroidism, Expected: unspecified type (Approximat e), Expires: 2020 Scheduled Procedures Name Priority Associated Diagnoses Date/Time [...] Associated Diagnoses Order S chedule Referral to Spine Outpatient Referral Routine Cervical radicul ar Ordered: Center pain 07/04/2020 documented as of this encounter Procedures Procedure Name Priority Date/Time Associated Diagnosis Comme nts ALDOSTERONE Routine 07/04/2020 4:19 PM Results f or this EDT procedure are i n the results section . documented in this encounter Results MRI Cervical Spine wo Contrast (Generic) (07/18/2020 4:27 PM EDT) Anatomical Region Laterality Modality C-spine Magnetic Resonance Specimen (Source) Anatomical Location Collection Method / Collectio n Time Received Time / Laterality Volume Impressions 07/18/2020 5:09 PM EDT Changes of cervical spondylosis as above with multilevel advanced neural foraminal stenosis, severe at C5-6. Thank you for letting us participate in the care of this patient. For questions regarding this report, please contact th e number below. ? Narrative 07/18/2020 5:09 PM EDT EXAMINATION: MRI CERVICAL SPINE WO CONTRAST (GENERIC) CLINICAL HISTORY: Cervical radiculopathy TECHNIQUE: MRI of the cervical spine performed with out intravenous contrast administration. COMPARISON: Cervical spine radiographs 10/29/2018 MRI cervical spine 08/04/2018 FINDINGS: The examination is marred by hyacinth atient motion. Reversal of normal cervical lordosis demian tered at C5 where there is mild retrolisthesis of C5 respect to C6. Adva nced disc height loss at C5-6 and C6-7 with Modic endplate changes. The prevert ebral soft tissues are normal. Cervical cord signal and caliber within the limit s of the examination. Findings at individual levels: C2-C3: Right worse than left facet arthr opathy and small right-sided uncovertebral osteophytes produce modera te right and minimal left neural foraminal narrowing. No canal stenosis. C3-C4: No disc herniation. Inward buckli ng of ligamentum flavum contributes to mild canal narrowing. Facet and uncovert ebral arthropathy produce moderate bilateral neural foraminal stenosis, lef t worse than right. C4-C5: Inward buckling of ligamentum fla vum and curvature contribute mild canal narrowing. Uncovertebral and facet arthr opathy produce severe left and moderate to severe right neural foraminal stenosi s. C5-C6: Posterior disc osteophyte complex indents the ventral thecal sac and flattens the ventral cord contributing t o mild compression. Vertebral arthropathy produce severe bilateral jean claude ral foraminal stenosis. C6-C7: Disc height loss with asymmetric posterior disc osteophyte complex indenting the left thecal sac contribute s to moderate canal narrowing. Uncovertebral and mild facet arthropathy contribute to mild right and moderate to severe left neural foraminal stenosis . C7-T1: No disc herniation or canal narro wing. Facet arthropathy contributes to mild left and at least moderate right ne ural foraminal stenosis. Procedure Note Lauren Yusuf MD - 07/18/2020Form atting of this note might be different from the original. EXAMINATION: MRI CERVICAL SPINE WO CONTR AST (GENERIC) CLINICAL HISTORY: Cervical radiculopathy TECHNIQUE: MRI of the cervical spine performed with out intravenous contrast administration. COMPARISON: Cervical spine radiographs 10/29/2018 MRI cervical spine 08/04/2018 FINDINGS: The examination is marred by p atient motion. Reversal of normal cervical lordosis demian tered at C5 where there is mild retrolisthesis of C5 respect to C6. Adva nced disc height loss at C5-6 and C6-7 with Modic endplate changes. The prevert ebral soft tissues are normal. Cervical cord signal and caliber within the limit s of the examination. Findings at individual levels: C2-C3: Right worse than left facet arthr opathy and small right-sided uncovertebral osteophytes produce modera te right and minimal left neural foraminal narrowing. No canal stenosis. C3-C4: No disc herniation. Inward buckli ng of ligamentum flavum contributes to mild canal narrowing. Facet and uncovert ebral arthropathy produce moderate bilateral neural foraminal stenosis, lef t worse than right. C4-C5: Inward buckling of ligamentum fla vum and curvature contribute mild canal narrowing. Uncovertebral and facet arthr opathy produce severe left and moderate to severe right neural foraminal stenosi s. C5-C6: Posterior disc osteophyte complex indents the ventral thecal sac and flattens the ventral cord contributing t o mild compression. Vertebral arthropathy produce severe bilateral jean claude ral foraminal stenosis. C6-C7: Disc height loss with asymmetric posterior disc osteophyte complex indenting the left thecal sac contribute s to moderate canal narrowing. Uncovertebral and mild facet arthropathy contribute to mild right and moderate to severe left neural foraminal stenosis . C7-T1: No disc herniation or canal narro wing. Facet arthropathy contributes to mild left and at least moderate right ne ural foraminal stenosis. IMPRESSION Changes of cervical spondylosis as above with multilevel advanced neural foraminal stenosis, severe at C5-6. Thank you for letting us participate in the care of this patient. For questions regarding this report, please contact th e number below. Tom Hay MD IMG MRI ORDERABLES Aldosterone (07/04/2020 4:19 PM EDT) athologist Signature Aldosterone TNP [facility] Comment: Aldosterone, S was cancelled on 07/19/20 20 at 10:40; Quantity not sufficient. Test Performed by: [facility] [address] , [place], [place] [address] Weight Reducing Technician: Tom Harrison M.D. Ph. D.; CLIA# [id number] Specimen Anatomical Collection Method Collection Time Receive d Time (Source) Location / / Volume Laterality Blood specimen Venous Draw / 07/04/2020 4:19 PM 2019 9:08 (specimen) Unknown EDT AM EDT Resulting Agency Comment Spec In Lab Tom Hay MD CHEMISTRY ORDERABLES Performing Organization Address City/[facility]/[place] [address] (ABNORMAL) Vitamin D, 25-Hydroxy (07/04/2020 4:19 PM EDT) athologist Signature 25-OH Vit D 16 (L) 21 - 100 [facility] Total ng/mL [facility] Comment: Please note, effective February 15, 2020, jonatan tional result field for Vitamin D Interpretation, and updated flagging not ification. 25-OH Vit D Interp Deficient [facility] Specimen Anatomical Collection Method Collection Time Receive d Time (Source) Location / / Volume Laterality Blood specimen 07/04/2020 4:19 PM 020 4:26 (specimen) EDT PM EDT Resulting Agency Comment Spec In Lab Tom Hay MD CHEMISTRY ORDERABLES Performing Organization Address City/[facility]/[place] [address] Cortisol (07/04/2020 4:19 PM EDT) athologist Signature Cortisol 6.6 mcg/dL [facility] Comment: Reference ranges: ??AM (6-10am): ??4.8-19.5 mcg/dL ??PM (4-8pm) : ??2.5-11.9 mcg/dL Specimen Anatomical Collection Method Collection Time Receive d Time (Source) Location / / Volume Laterality Blood specimen 07/04/2020 4:19 PM 020 4:25 (specimen) EDT PM EDT Resulting Agency Comment Spec In Lab Tom Hay MD CHEMISTRY ORDERABLES Performing Organization Address City/[facility]/[place] [address] Renin Activity (07/04/2020 4:19 PM EDT) athologist Signature Renin Activity 1.0 ng/ml/hr [facility] Comment: REFERENCE VALUE------ (Peripheral vein specimen) Na-deplete, upright: ??Mean: 5.9 ??Range: 2.9-10.8 Na-replete, upright: ??Mean: 1.0 ??Range: < or =0.6-3.0 ADDITIONAL INFORMATIO N Testing performed by Liquid Chromatograp hy-Tandem Mass Spectrometry (LC-MS/MS). This test was developed and its performa nce characteristics determined by [facility] in a manner co nsistent with CLIA requirements. This test has not been nigel ared or approved by the U.S. Food and Drug Administration. Test Performed by: [facility] [address] [address] Weight Reducing Technician: Tom Harrison M.D. Ph. D.; CLIA# [id number] Specimen Anatomical Collection Method Collection Time Receive d Time (Source) Location / / Volume Laterality Blood specimen 07/04/2020 4:19 PM 020 4:15 (specimen) EDT PM EDT Resulting Agency Comment Spec In Lab Tom Hay MD CHEMISTRY ORDERABLES Performing Organization Address City/[facility]/ZIP Code Phon [place] [address] HIV Screen, 4th Generation ([facility]/CGP/APD) (07/04/2020 4:19 PM EDT) Analysis [facility] Signature HIV-1/2 Ab and Negative Negative [facility] Comment: This 4th Generation HIV test screens for the presence of the HIV-1 p24 antigen as well as antibodies reactive against H IV-1 and HIV-2. A negative screen does not rule out an acute HIV infection. If acute HIV infection is suspected, testing should be repeated in 2 - 3 week s or HIV nucleic acid testing performed. Specimen Anatomical Collection Method Collection Time Receive d Time (Source) Location / / Volume Laterality Blood specimen 07/04/2020 4:19 PM 020 4:26 (specimen) EDT PM EDT Resulting Agency Comment Spec In Lab Tom Hay MD IMMUNOLOGY ORDERABLES Performing Organization Address City/[facility]/[place] [address] Hepatitis C Antibody (07/04/2020 4:19 PM EDT) Analysis [facility] Signature Hepatitis C Ab Negative Negative [facility] Specimen Anatomical Collection Method Collection Time Receive d Time (Source) Location / / Volume Laterality Blood specimen 07/04/2020 4:19 PM 020 4:26 (specimen) EDT PM EDT Resulting Agency Comment Spec In Lab Tom Hay MD IMMUNOLOGY ORDERABLES Performing Organization Address City/[facility] [place] [address] documented in this encounter Visit Diagnoses Diagnosis Chronic obstructive pulmonary disease wi th acute exacerbation Obstructive chronic bronchitis with exac erbation Cervical radicular pain Brachial neuritis or radiculitis nos Hypothyroidism, unspecified type Controlled type 2 diabetes mellitus with out complication, unspecified whether jail insulin use Thrush Candidiasis of mouth Essential hypertension Unspecified essential hypertension Healthcare maintenance Routine general medical examination at a health care facility Adrenal incidentaloma Other specified disorders of adrenal gla nds Diabetes mellitus due to underlying cond ition with other oral complications Vitamin D deficiency Unspecified vitamin D deficiency Cervical radicular pain Brachial neuritis or radiculitis nos documented in this encounter Care Teams [place] Maintenance Chief Relationship Specialty Start Date End Date Tom Hay MD PCP - General General Internal Medicine 09/15/18 [facility] GENERAL [place] [address] documented as of this encounter
--- OUTSIDE RECORDS SUMMARY | 2022-07-12 00:48 | XMS_ITS | Encounter Summary ---
:1965 Author Organization [facility] [place] [address] Care Team Providers Name Role Phone Tom Hay MD Primary Care Provider Reason for Visit Reason Onset Date Comments Medication Refill 06/08/2020 Encounter Details Date Type Department Care Team Description 06/08/2020 Refill Internal Medicine at [facility] Oracio Cardona [facility] Kevin castañ[place] [address] Social History Tobacco Use Types Packs/Day [...] this encounter Miscellaneous Notes Telephone Encounter - Oracio Chinchilla - 06/08/2020 9:19 AM EDT Pt states she has Thrush again that is really bad. documented in this encounter Plan of Treatment Upcoming Encounters Date Type Specialty Care Team Description 08/06/2022 Office Visit Plastic Surgery Peña Woodward MD [facility] PLASTIC SURGERY [place], [place] [address] ( josé luis) 08/19/2022 Office Visit Podiatry Tom Titus DPM [place], [place] [address] (Wo rk) 09/08/2022 Office Visit Internal Medicine Janay Hay MD [facility] GENERAL INTERNAL MEDICINE [place], [place] [address] (Wo rk) 10/12/2059 Hospital Encounter Surgery Jim Hanley MD [facility] SPINE CENTER [place], [place] [address] (Flores ordonez) Scheduled Procedures Name [...] on filedocumented in this encounter Care Teams Submarine Worker Relationship Specialty Start Date End Date Tom Hay MD PCP - General Internal Medicine 09/15/18 [facility] [place] [address] documented as of this encounter
--- OUTSIDE RECORDS SUMMARY | 2022-07-12 00:48 | XMS_ITS | Encounter Summary ---
:1965 Author Organization [facility] [place] [address] Care Team Providers Name Role Phone Tom Hay MD Primary Care Provider Reason for Visit Reason Onset Date Comments Medication Refill 03/06/2020 Encounter Details Date Type Department Care Team Description 03/06/2020 Refill Internal Medicine at [facility] Marlena Schmidt CCMA [facility] [place] [address] Social History Tobacco Use Types Packs/Day [...] Office Visit Plastic Surgery Peña Woodward MD [facility] PLASTIC SURGERY [place], [place] [address] (Wo rk) 08/19/2022 Office Visit Podiatry Tom Titus DPM [place], [place] [address] (Wo rk) 09/08/2022 Office Visit Internal Medicine Janay Hay MD [facility] GENERAL INTERNAL MEDICINE [place], [place] [address] (Wo rk) 10/12/2059 Hospital Encounter Surgery Jim Hanley MD [facility] SPINE CENTER [place], [place] [address] (Wo rk) Scheduled Procedures [...] filedocumented in this encounter Care Teams Senior Electronics Technician Relationship Specialty Start Date End Date Tom Hay MD PCP - General Woods Internal Medicine 09/15/18 [facility] GENERAL [place] [address] documented as of this encounter
--- OUTSIDE RECORDS SUMMARY | 2022-07-12 00:48 | XMS_ITS | Encounter Summary ---
:1965 Author Organization [place] [address] Care Team Providers Name Role Phone Tom Hay MD Primary Care Provider Encounter Details Date Type Department Care Team Description 04/25/2020 Telephone Dermatology at [facility] Camilo Coffey MD [address] [facility] [place] [address]-DERMATOLOGY [phone] [place], [place] [address] (Wo rk) Social History Tobacco [...] this encounter Miscellaneous Notes Telephone Encounter - Rusty Perez LPN - 04/25/2020 4:54 PM EDT [facility] orders faxed for home uvb dermapal RUSTY PEREZ LPN documented in this encounter Plan of Treatment Upcoming Encounters Date Type Specialty Care Team Description 08/06/2022 Office Visit Plastic Surgery Peña Woodward MD [facility] PLASTIC SURGERY [place], [place] [address] (Wo rk) 08/19/2022 Office Visit Podiatry Tom Titus DPM [place], [place] 5 (Wo rk) 09/08/2022 Office Visit Internal Medicine Janay Hay MD [facility] GENERAL INTERNAL MEDICINE [place], [place] [address] (Wo rk) 10/12/2059 Hospital Encounter Surgery Jim Hanley MD [facility] SPINE [facility]ENTER [place], [place] 1 (Wo rk) Scheduled Procedures Name Priority Associated [...] on filedocumented in this encounter Care Teams Improvement Coordinator Relationship Specialty Start Date End Date Tom Hay MD PCP - General Internal Medicine 09/15/18 [facility] [place] [address] documented as of this encounter
--- OUTSIDE RECORDS SUMMARY | 2022-07-12 00:48 | XMS_ITS | Encounter Summary ---
:1965 Author Organization [facility] [place] [address] Care Team Providers Name Role Phone Tom Hay MD Primary Care Provider Encounter Details Date Type Department Care Team Description 06/01/2020 Telephone Dermatology at [facility] Camilo Coffey MD [address] [place] [address]-DERMATOLOGY [phone] [place], [place] [address] (Wo rk) Social History Tobacco [...] Telephone Encounter - Rusty Perez LPN - 06/01/2020 9:04 AM EDT Rep from [employer] says that patients unit was approved and shipping to her next week. They should be sending a faxed confirmation and form to sign for them to do a phone training I wll have dr coffey sign that and we fax back in after RUSTY PEREZ LPN Telephone Encounter - Rusty Perez LPN - 06/01/2020 9:04 AM EDT ----- Message from Camilo Coffey MD sent at 04/15/2020 8:30 AM EDT ----- Please assist patient in ordering [facility] unit. Patient to return to clinic in about 3 or4 months; basically about 1 to 2 months after starting the combination therapy. Thank you. documented in this encounter Plan of Treatment Upcoming Encounters Date Type Specialty Care Team Description 08/06/2022 Office Visit Plastic Surgery Peña Woodward MD [facility] PLASTIC SURGERY [place], [place] [address] (Wo rk) 08/19/2022 Office Visit Podiatry Tom Titus DPM [place], [place] [address] (Wo rk) 09/08/2022 Office Visit Internal Medicine Janay Hay MD [facility] GENERAL INTERNAL MEDICINE [place], [place] 3 (Wo rk) 10/12/2059 Hospital Encounter Surgery Jim Hanley MD [facility] SPINE CENTER [place] [id number] ( rk) Scheduled Procedures Name Priority Associated [...] on filedocumented in this encounter Care Teams Spring Upholsterer Relationship Specialty Start Date End Date Tom Hay MD PCP - General General Internal Medicine 09/15/18 [facility] GENERAL [place] [address] documented as of this encounter
--- OUTSIDE RECORDS SUMMARY | 2022-07-12 00:48 | XMS_ITS | Encounter Summary ---
:1965 Author Organization [facility] Address [facility] [address] [place] [address] Care Team Providers Name Role Phone Tom Hay MD Primary Care Provider Encounter Details Date Type Department Care Team Description 03/06/2020 [facility], [facility]; Karen III, Scalp psoriasis; [address] [facility] [place] [address] [facility] [place], [place] [address] Social History Tobacco Use Types [...] documented as of this encounter Progress Notes Aminata Perez E - 03/06/2020 3:00 PM EDT DERMATOLOGY ESTABLISHED PATIENT CLINIC NOTE Date of service: 03/06/2020 Emmanuelle Bynum : 1965 Provider: Jacob Blair MD PROBLEM: Spot check - psoriasis in scalp SKIN HISTORY: 06/15/2018: Right upper back, irritated dermatofibroma (shave biopsy) 02/16/2017: Left superior shoulder, compatible with hemangioma (punch biopsy) 01/28/2016: Right ala, irritated fibrous papule (shave biopsy) Left forearm, consistent with superficial aspect of dermatofibroma (shave biopsy) 12/25/2014: Right hip, intradermal melanocytic nevus with congenital features (shave biopsy) 12/14/2012: Left nasolabial fold, dermal nevus (shave biopsy) 08/03/2012: Left forehead, compound nevus (shave biopsy) Left jaw line, intradermal nevus (shave biopsy) 03/05/2012: Right upper back, intradermal nevus with congenital features and focal fibrosis (shave biopsy) - Scalp psoriasis - Angular cheilitis - Perioral dermatitis HPI Emmanuelle Bynum is a 54 y.o. female. Patient is here today for a concerning spot on the cheek that has been present for several years. It has become rough and tender. She is concerned, she reports that it seems to be growing and changing recently. - She would also like to discuss her scalp psoriasis, which she has been treating with calcipotriene-Betamethasone solution and clobetasol foam. She states that this is usually helpful, but it has notbeen as effective lately. - she wants to do Extrac laser , but can't arrange it now as she does no have any transportation available to come to clinic. Pt last seen on 06/15/2018. ADR: Allergies Allergen Reactions ??? Clonidine (Pf) Other (See Comments) stenens johnsons syndrome ??? Codeine Itching and Nausea Only ??? Metformin ??? Methadone Nausea And Vomiting CURRENT MEDICATIONS: Current Outpatient Medications Medication Sig Dispense Refill ??? valACYclovir (VALTREX) 1 gram Tablet Take 1 tablet by mouth 2 times daily. 30 tablet 3 ??? metFORMIN XR (Glucophage XR) 500 mg Tablet Sustained Release 24 hr Take 1 tablet by mouth 2 times daily. 60 tablet 12 ??? DULoxetine DR (Cymbalta) 20 mg Capsule, Delayed Release(E.C.) Take 1 capsule by mouth daily. Titrate up 1 to 2 to 3 qd 90 capsule 0 ??? meclizine (Antivert) 25 mg Tablet Take 1 tablet by mouth 3 times daily as needed. 90 tablet 3 ??? amLODIPine (Norvasc) 10 mg Tablet Take 1 tablet by mouth daily. 90 tablet 3 ??? semaglutide 1 mg/dose (2 mg/1.5 mL) Pen Injector Inject 1 mg subcutaneously once a week. 4 Syringe 1 ??? levothyroxine (Synthroid) 150 mcg Tablet Take 2 tablets by mouth daily. Take in addition to the 25mcg to equal 325mcg 180 tablet 0 ??? levothyroxine (Synthroid) 25 mcg Tablet Take 1 tablet by mouth daily. 90 tablet 0 ??? Calcipotriene 0.005 % Solution ??? Crystal Pen Needle 32 gauge x Needle USE QID PRN TO TEST BLOOD SUGAR ??? apflogemxpc-zhsxiuzep-uxvzckqg (Trelegy Ellipta) 100-62.5-25 mcg Disk with Device Inhale 1 Inhalation into the lungs daily. 60 each 3 ??? albuterol (ProAir HFA) 90 mcg/actuation HFA Aerosol Inhaler Inhale 2 puffs into the lungs every 4 hours as needed for Wheezing. Use with spacer 3 Inhaler 3 ??? ipratropium-albuterol (DUONEB) 0.5 mg-3 mg(2.5 mg base)/3 mL Solution for Nebulization Take 0.5 mg by nebulization 4 times daily. 1 Box 4 ??? blood-glucose meter (FREESTYLE) Kit 1 each by [facility]Non-Drug; Combo Route) route as needed for Other. 1 each 0 ??? insulin glargine (Lantus Solostar U-100 Insulin) 100 unit/mL (3 mL) pen Inject 48 Units subcutaneously nightly. 15 mL 11 ??? naratriptan (Amerge) 2.5 mg Tablet Take 1 tablet by mouth as needed for Migraine. if returns or does not resolve, may repeat once after 4 hours 10 tablet 3 ??? clotrimazole (MYCELEX) 10 mg Gary DIS 1 MOLLY PO TID 0 ??? estradiol (ESTRACE) 0.01 % (0.1 mg/gram) Cream 4 ??? fluconazole (DIFLUCAN) 200 mg Tablet ??? nystatin (MYCOSTATIN) 100,000 unit/mL Suspension SAS 5 ML PO QID PRF THRUSH 0 ??? ondansetron ODT (ZOFRAN-ODT) 4 mg Tablet, Rapid Dissolve DISSOLVE 1 T UNDER THE TONGUE Q 6 H PRN0 ??? predniSONE (DELTASONE) 10 mg Tablet TAKE 6 TABLES AND REDUCE BY 1/2 EVERY DAY. 6--5.5--5--4.5--4--3.5--3--2.5--2--1.5--1--0.5 0 ??? predniSONE (DELTASONE) 20 mg Tablet ??? lancets (FREESTYLE LANCETS) 28 gauge [facility] Dx E11.9 IDD please test 4x/day with lancets Indications: diabetes mellitus 125 each 11 ??? blood sugar diagnostic strips Strip Use as instructed to check BG 4 times daily. (Freestyle Lite)DX code E11.9 IDD 100 each 11 ??? pen needle, diabetic (NOVOTWIST) 32 gauge x 1/5 Needle 1 each by [facility].(Non- Drug; Combo Route) route 4 times daily as needed. [employer] needle ICD E11.9 NIDD 100 each 5 ??? insulin lispro (HUMALOG KWIKPEN) Insulin Pen Inject 4-30 Units subcutaneously 3 times daily (with meals). 81 mL 3 ??? BD ALCOHOL SWABS Pads, Medicated 1 each 4 times daily. 100 each 3 ??? montelukast (SINGULAIR) 10 mg Tablet Take 1 tablet by mouth nightly. 90 tablet 3 ??? tiotropium (SPIRIVA) 18 mcg Capsule, w/Inhalation Device Inhale 1 capsule into the lungs daily. 90 capsule 3 ??? Clobetasol-Emollient 0.05 % Foam Apply twice daily to worse scalp psoriasis on weekends-only as needed dispense 3 bottles please 200 g 0 ??? esomeprazole (NEXIUM) 40 mg Capsule, Delayed Release(E.C.) Take 1 capsule by mouth 2 times daily. 180 capsule 3 ??? methocarbamol (ROBAXIN) 750 mg Tablet Take 1 tablet by mouth 4 times daily. 120 tablet 0 ??? hydroCHLOROthiazide (HYDRODIURIL) 50 mg Tablet Take 1 tablet by mouth daily. 90 tablet 3 ??? ondansetron (ZOFRAN) 4 mg Tablet Take 1 tablet by mouth every 8 hours as needed for Nausea. 20 tablet 3 ??? ibuprofen (IBU) 800 mg Tablet Take 1 tablet by mouth every 8 hours as needed for Pain. (Patient not taking: Reported on 10/26/2019) 270 tablet 3 ??? glipiZIDE (GLUCOTROL) 5 mg Tablet TAKE 1 TABLET BY MOUTH TWICE DAILY BEFORE MEALS 60 tablet 11 ??? vitamin with szfcuyyl-Sy-Siux-FA Tablet Take 1 tablet by mouth daily. ??? metroNIDAZOLE (METROCREAM) 0.75 % Cream Apply topically 2 times daily. 45 g 5 ??? varenicline (CHANTIX) 1 mg Tablet Take 1 tablet by mouth daily. (Patient not taking: Reported on10/26/2019) 30 tablet 5 ??? atorvastatin (LIPITOR) 20 mg Tablet Take 1 tablet by mouth daily. 90 tablet 3 ??? betamethasone-calcipotriene (TACLONEX SCALP) 0.005-0.064 % Suspension Apply 3 times a week to scalp for psoriasis as needed. 120 g 1 ??? cholecalciferol, Vitamin D3, 50,000 unit Capsule Take 1 capsule by mouth once a week. (Patient not taking: Reported on 10/26/2019) 52 capsule 0 ??? VITAMIN D 1,000 unit Tablet Take 2 tablets by mouth daily. 90 tablet 0 ??? cycloSPORINE (RESTASIS) 0.05 % Dropperette Place 1 drop into both eyes every 12 hours. 180 vial 3 ??? fluticasone (VERAMYST) 27.5 mcg/actuation [place], Suspension 2 sprays by Nasal route daily. Indications: Allergic Rhinitis ??? promethazine (PHENERGAN) 25 mg tablet Take 25 mg by mouth every 6 hours as needed. ??? ALPRAZolam (XANAX) 1 mg tablet Take 1 mg by mouth 3 times daily as needed. ??? FLUoxetine (PROZAC) 40 mg capsule Take 80 mg by mouth daily. ??? aripiprazole (ABILIFY) 30 mg tablet Take 30 mg by mouth daily. No current facility-administered medications for this visit. PROBLEM LIST: Patient Active Problem List Diagnosis Code ??? 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 Chronic migraine without aura G43.709 ??? Asthma J45.909 ??? Hypothyroid E03.9 ??? Depression F32.9 ??? GERD (gastroesophageal reflux disease) K21.9 ??? Chronic UTI N39.0 ??? Sleep apnea G47.30 ??? Bilateral shoulder pain M25.511, M25.512 ??? Carpal tunnel syndrome on both sides G56.03 ??? Cervical radicular pain M54.12 ??? Atypical nevus of back D22.5 ??? [...] COPD (chronic obstructive pulmonary disease) J44.9 ??? Mild cognitive impairment, so stated G31.84 ??? Acne vulgaris L70.0 ??? Schizophrenia F20.9 ??? Bipolar II disorder F31.81 ??? Vitamin D deficiency E55.9 ??? Essential hypertension I10 ??? Hyperlipidemia E78.5 ??? Seasonal allergies J30.2 ??? Fibromyalgia M79.7 ROS General: feeling well. Oriented X 3. Skin: denies other skin complaints EXAM General: NAD, pleasant, cooperative Skin: An exam of the skin from the neck up was performed. This includes examination of the skin of the face, ears, scalp, and neck. Significant skin findings: A. Left cheek x1: Irritated brown waxy papule, excoriations noted. B. Nape of neck: Mild erythema and scaling across the lower occiput - some areas are thicker than others. ASSESSMENT/PLAN: A. Inflamed Seborrheic Keratosis - Left cheek - I discussed this condition with the patient and explored therapeutic options. I recommended this be treated with LN2, patient is in agreement to this treatment plan. Instructed to call if areas do not resolve as expected or if problems arise. If lesions fail to resolve, further work-up may be needed. Procedure Note: Procedure: Destruction of lesion with cryotherapy. Number: 1 Location: as above Discussed procedure and expectations including risks (including risk of hypopigmentation) and benefits. Verbal consent obtained. Frozen with LN2, 15-30 second thaw time, TWICE. There were no complications; the patient tolerated the procedure well. Post-procedure expectations and wound care were reviewed. B. Scalp Psoriasis - nape of neck No other psoriasis on the body noted - Reviewed option to treat with XTRAC laser, but patient is not able to travel down here regularly at this time. This would be ideal treatment and I asked her to call if she can arrange transportation so we can initiate therapy - Refill Rx: Taclonex 0.005-0.064% suspension - Apply to affected areas on the scalp 3 times weekly. - for the more recalcitrant areas we discued IL kenalog - Joint decision to treat with IL Kenalog injections today. Procedure Note: Kenalog 5 mg/mL injected intralesionally into the lesions on the nape of the neck, total 0.8 mL. Discussed indication for this procedure and potential side effects including ulceration and skin atrophy. Kenalog 5 mg/mL LOT: [id number] EXP: MAY 2021 Call if areas do not improve or resolve as expected or problems arise. This should give the area a boost and the Taclonex applied HS , 2-3 nights a week will help as well. Consider systemic therapy is she fails to improve, but she has a lot of co- morbidities and Extrac has worked well in the past. RTC - 6 months for scalp psoriasis follow up, sooner if needed. Appointment routed for scheduling. I am documenting this encounter acting as the scribe for and in the presence of Dr. Blair.: HOLDEN Adkins and Norma Arauz I performed the above scribed service and agree with the accuracy of the documentation in this encounter. Jacob Blair MD Section of Dermatology [facility] documented in this encounter Plan of Treatment Upcoming Encounters Date Type Specialty Care Team Description 08/06/2022 Office Visit Plastic Surgery Peña Woodward MD [facility] PLASTIC SURGERY [place] [id number] (Wo josé luis) 08/19/2022 Office Visit Podiatry Tom Titus DPM [place], [place] [address] (Flores ordonez) 09/08/2022 Office Visit Internal Medicine Janay Hay MD [facility] GENERAL INTERNAL MEDICINE [place], [place] [address] (Wo rk) 10/12/2059 Hospital Encounter Surgery Jim Hanley MD [facility] SPINE CENTER [place], [place] [address] (Flores ordonez) Scheduled Procedures Name [...] as of this encounter Visit Diagnoses Diagnosis Seborrheic keratosis, inflamed Inflamed seborrheic keratosis Scalp psoriasis Other psoriasis Psoriasis Other psoriasis documented in this encounter Administered Medications Inactive Administered Medications - up to 3 most recent administrations Medication Order MAR Action Action Date Dose Rate Site triamcinolone acetonide Given 03/06/2020 3:51 PM 10 mg 20-Other (document (KENALOG) injection 10 mg EDT in comment sect ion) 10 mg, Intra-Lesional, ONCE, 1 dose, On Thu03/06/20 at 1600, Routine documented in this encounter Care Teams Import/Export Administrator Relationship Specialty Start Date End Date Tom Hay MD PCP - General General Internal Medicine 09/15/18 [facility] [place] [address] documented as of this encounter
--- OUTSIDE RECORDS SUMMARY | 2022-07-12 00:48 | XMS_ITS | Encounter Summary ---
:1965 Author Organization [facility] Address [facility] [place] [address] Care Team Providers Name Role Phone Tom Hay MD Primary Care Provider Reason for Visit Reason Onset Date Comments Medication Refill 07/25/2020 Encounter Details Date Type Department Care Team Description 07/25/2020 Refill Internal Medicine at [facility] Aracelis Kumar [facility] [place] [address] Social History Tobacco Use Types Packs/Day [...] Woodward MD [facility] PLASTIC SURGERY [place], [place] [address] (Wo rk) 08/19/2022 Office Visit Podiatry Tom Titus DPM [place], [place] [address] (Wo rk) 09/08/2022 Office Visit Internal Medicine Janay Hay MD [facility] GENERAL INTERNAL MEDICINE [place], [place] [address] (Wo rk) 10/12/2059 Hospital Encounter Surgery Jim Hanley MD [facility] SPINE CENTER [place], [place] [address] (Wo rk) Scheduled Procedures Name [...] on filedocumented in this encounter Care Teams Small Stock Facer Relationship Specialty Start Date End Date Tom Hay MD PCP - General Internal Medicine 09/15/18 [facility] [place] [address] documented as of this encounter
--- OUTSIDE RECORDS SUMMARY | 2022-07-12 00:48 | XMS_ITS | Encounter Summary ---
:1965 Author Organization [facility] Address [facility] [place] [address] Care Team Providers Name Role Phone Tom Hay MD Primary Care Provider Reason for Visit Reason Onset Date Comments Medication Refill 05/17/2020 Encounter Details Date Type Department Care Team Description 05/17/2020 Refill Internal Medicine at [facility] Lata Souza [facility] Kevin castañeda [place] [address] Social History Tobacco Use Types Packs/Day [...] this encounter Miscellaneous Notes Telephone Encounter - Lata Souza - 05/17/2020 9:03 AM EDT Pt is out of medication, and has been for 2 weeks, please HINDS refill. documented in this encounter Plan of Treatment Upcoming Encounters Date Type Specialty Care Team Description 08/06/2022 Office Visit Plastic Surgery Peña Woodward MD [facility] PLASTIC SURGERY [place] [id number] ( josé luis) 08/19/2022 Office Visit Podiatry Tom Titus DPM [place], [place] [address] (Flores ordonez) 09/08/2022 Office Visit Internal Medicine Janay Hay MD [facility] GENERAL INTERNAL MEDICINE [place], [place] (Flores ordonez) 10/12/2059 Hospital Encounter Surgery Jim Hanley MD [facility] SPINE CENTER [place], [place] [address] (Flores ordonez) Scheduled Procedures Name [...] on filedocumented in this encounter Care Teams Blanchard Grinder Operator Relationship Specialty Start Date End Date Tom Hay MD PCP - General General Internal Medicine 09/15/18 [facility] [place] [address] documented as of this encounter
--- OUTSIDE RECORDS SUMMARY | 2022-07-12 00:48 | XMS_ITS | Encounter Summary ---
:1965 Author Organization [facility] Address [address] [place] [address] Care Team Providers Name Role Phone Tom Hay MD Primary Care Provider Reason for Visit Reason Comments Follow-up no answer;voicemail not set up Encounter Details Date Type Department Care Team Description 02/02/2020 TH Visit Internal Medicine at Tom Hay controlled type 2 diabetes mellitus with hyperglycemia; (TeleHealth) [facility] MD Kevin Chronic obstructive pulmonary disease wi th acute exacerbation; [facility] Hyp othyroidism, unspecified type; Drive [address] [place], [place] GENERAL INTERNAL [id number] MEDICINE [phone] [place], [place] [address] Social History Tobacco Use Types [...] Patient Instructions Patient InstructionsBraTom cantu MD - 02/02/2020 4:40 PM EDT Transition from fluoxetine to duloxetine: change dose each week- Fluoxetine: 80 60 40 20 0 Duloxetine: 20 40 60 60 60 Goal is same depression/anxiety effect and added pain benefit. Call for 60 mg capsules if working out. Try metformin 500 with meals. Hopefully any nausea will settle after 1-2 weeks. Go to 2 if tolerated, or stick at 1 if can't tolerate Reduce lantus by 1-2 units/day- until fasting is usually over 150-160- then don't go down further. Metformin should make it easier to reduce the dose documented in this encounter Progress Notes Tom Hay MD - 02/02/2020 4:40 PM EDT General Internal Medicine - Telehealth Visit Note Patient verbally consents to this telehealth visit and understands that this visit may be billed, similar to a clinic office visit. Subjective -Emmanuelle Bynum is a 54 y.o. female presenting for follow up who does not have any pertinent problems on file. No FU since our single visit 10/30. Needs valtrex name brand only- generic doesn't work -Ozembic/semaglutide- working well. On max dose/1mg past 3 injections. Has lost ~15#. Sugars 140. Off meal asscociated insulin- on 58 Lantus. -Ashtma/COPD- doing pretty well now- recent pred taper. On trelegy. Still smoking- has cut back. Doesn't think she can totally quit- < half pack. ON Breoand Trelegy Lives in [place]- sees specialists at [facility]. Psych ok with change to dulox. Still with pain issues No questionnaires available. Assessment and Plan 1. DM- doing great with semaglutide. Will try adding metformin slowly- 500 XR with food once/day, then twice/day after 1-2 weeks if tolerated. Dial down lantus by 1-2 units/day until glu rises>150; chk A1c soon and in 3mo 2. Psych;/pain- following with psych- ok with transition from prozac 80 to dulox 60 to address pain. 3. COPD - doing well with trelegy. DC Breo. 4. Vertigo- refilled meclizine for now- but discussed this not being ideal- will need to examine to sort out etiology 5. Hypothyroid- chk TSH I provided care to the patient today via 's audiovisual platform. 35 minutes was spent in discussion with patient on above. FU 3mo w labs- EPE documented in this encounter Plan of Treatment Upcoming Encounters Date Type Specialty Care Team Description 08/06/2022 Office Visit Plastic Surgery Peña Woodward MD [facility] PLASTIC SURGERY [place], [place] [address] (Flores orodnez) 08/19/2022 Office Visit Podiatry Tom Titus DPM [place], [place] [address] (Flores ordonez) 09/08/2022 Office Visit Internal Medicine Janay Hay MD [facility] GENERAL INTERNAL MEDICINE [place], [place] [address] (Wo rk) 10/12/2059 Hospital Encounter Surgery Jim Hanley MD [facility] [place], [place] [address] (Wo rk) Scheduled Orders Name Type Priority Associated Diagnoses Order S chedule Hemoglobin A1c Lab STAT Uncontrolled type 2 diabet es Expected: 04/17/2020 mellitus with hyperglycemia (Approximate), Expires: 02/01/2021 TSH Lab STAT Hypothyroidism, unspecified Expected: 03/03/2020 type (Approximate), Expires: 02/01/2021 Scheduled Procedures Name Priority Associated Diagnoses Date/Time [...] documented as of this encounter Results TSH (07/04/2020 4:19 PM EDT) P athologist Signature TSH 2.04 0.27 - 4.20 [facility] m[facility]/mL [facility] Specimen Anatomical Collection Method Collection Time Receive d Time (Source) Location / / Volume Laterality Blood specimen 07/04/2020 4:19 PM 020 4:25 (specimen) EDT PM EDT Resulting Agency Comment Spec In Lab Tom Hay MD CHEMISTRY ORDERABLES Performing Organization Address City/State/ZIP Code Phon e Number [place] [phone] (ABNORMAL) Hemoglobin A1c (07/04/2020 4:19 PM EDT) Analysis Performed At Patho logist Time Signature Hemoglobin A1C 6.6 (H) 4.3 - 5.6 [facility] [...] 36: Suppl. 1, S67-74 Est Avg Gluc 144 mg/dL [facility] Comment: eAG equivalents for HbA1c percentages: HbA1c(%) ?eAG(mg/dL) 6.0 ?126 6.5 ?140 7.0 ?154 7.5 ?169 8.0 ?183 8.5 ?197 9.0 ?212 9.5 ?226 10.0 ? 240 Limitations: The eAG calculation has not been validated on women, individuals below 18 years old and above 70 years old, and individuals with hemoglobinopathies. Additional resources are available on [facility] website. Steve CHAO, Bhumi J, Kay R, et al. ??Tr anslating the A1C assay into estimated average glucose values. ??Diabetes Care 2008:31(8):1028-6152. Specimen Anatomical Collection Method Collection Time Receive d Time (Source) Location / / Volume Laterality Blood specimen 07/04/2020 4:19 PM 020 4:25 (specimen) EDT PM EDT Resulting Agency Comment Spec In Lab Tom Hay MD CHEMISTRY ORDERABLES Performing Organization Address City/State/[place] [address] Comprehensive metabolic panel (non-fasting) (07/04/2020 4:19 PM EDT) P athologist Signature Glucose Lvl 158 65 - 199 [facility] mg/dL [facility] Comment: Diabetes: >=200 mg/dL plus symp toms BUN 10 8 - 18 mg/dL [facility] Creatinine 0.71 0.70 - 1.20 mg/dL [facility] Sodium 143 135 - 145 mmol/L [facility] Potassium 3.7 3.5 - 5.0 mmol/L [facility] Comment: Please note: ??Patients with WBC >100,00 0 may have falsely elevated Potassium levels. ??For accurate Potassium quantif ication in these patients send serum separator tube (gold top) for subsequent determinations. ??Contact the Clinical Chemistry Laboratory if there are any qu estions. Chloride 102 98 - 107 mmol/L [facility] CO2 28 22 - 31 mmol/L [facility] Anion Gap 13 5 - 15 mmol/L [facility] Calcium 9.1 8.5 - 10.5 mg/dL [facility] Total Protein 6.6 6.1 - 8.0 gm/dL [facility] Albumin 4.0 3.2 - 5.2 gm/dL [facility] AST 8 0 - 30 unit/L [facility] ALT 8 0 - 30 unit/L [facility] Alk Phos 72 35 - 105 unit/L [facility] Total Bilirubin 0.2 0.2 - 1.3 mg/dL [facility] Estimated GFR 98 >=60 mL/min/1.73 m?? [facility] Comment: The eGFR was calculated using the CKD-EP I equation. As with all creatinine based estimates of kidney function, eGFR values calculated with the CKD-EPI equation are not accurate in patients wi th acute kidney failure, extremes of body mass or the acutely ill. http://PlayJam/[facility]kf eGFR 113 >=60 mL/min/1.73 m?? [facility] Comment: The eGFR was calculated using the CKD-EP I equation. As with all creatinine based estimates of kidney function, eGFR values calculated with the CKD-EPI equation are not accurate in patients wi th acute kidney failure, extremes of body mass or the acutely ill. http://PlayJam/[facility]ULS[facility]kf Specimen Anatomical Collection Method Collection Time Receive d Time (Source) Location / / Volume Laterality Blood specimen 07/04/2020 4:19 PM 020 4:25 (specimen) EDT PM EDT Resulting Agency Comment Spec In Lab Tom Hay MD CHEMISTRY ORDERABLES Performing Organization Address City/State/[place] [address] documented in this encounter Visit Diagnoses Diagnosis Uncontrolled type 2 diabetes mellitus wi th hyperglycemia Chronic obstructive pulmonary disease wi th acute exacerbation Obstructive chronic bronchitis with exac erbation Hypothyroidism, unspecified type Vertigo Dizziness and giddiness documented in this encounter Care Teams White [employer]wall Tire Buffer Relationship Specialty Start Date End Date Tom Hay MD PCP - General General Internal Medicine 09/15/18 [facility] [place] [address] documented as of this encounter
--- OUTSIDE RECORDS SUMMARY | 2022-07-12 00:48 | XMS_ITS | Encounter Summary ---
:1965 Author Organization [facility] Address [facility] [place] [address] Care Team Providers Name Role Phone Tom Hay MD Primary Care Provider Reason for Visit Reason Onset Date Comments Medication Refill 04/26/2020 Encounter Details Date Type Department Care Team Description 04/26/2020 Refill Internal Medicine at [facility] Sonia Mir Chronic obstructive pulmonar y disease with acute exacerbation; [facility] Kevin castañeda Scalp psoriasis; [place] [address] Cervical radicular pain [phone] Social History Tobacco Use Types Packs/Day Years [...] [facility] [place] [phone] (Wo rk) 08/19/2022 Office Visit Podiatry Tom Titus DPM [place] [phone] (Wo rk) 09/08/2022 Office Visit Internal Medicine Janay Hay MD [facility] GENERAL INTERNAL MEDICINE [place] [phone] (Flores rk) 10/12/2059 Hospital Encounter Surgery Jim Hanley MD [facility] [place], [place] [address] (Wo rk) Scheduled Procedures Name [...] with exac erbation Scalp psoriasis Other psoriasis Cervical radicular pain Brachial neuritis or radiculitis nos documented in this encounter Care Teams Senior Software Engineer Analytics Relationship Specialty Start Date End Date Tom Hay MD PCP - General Internal Medicine 09/15/18 [facility] [place] [address] documented as of this encounter
--- OUTSIDE RECORDS SUMMARY | 2022-07-12 00:48 | XMS_ITS | Encounter Summary ---
:1965 Author Organization [facility] Address [facility] [place] [address] Care Team Providers Name Role Phone Tom Hay MD Primary Care Provider Encounter Details Date Type Department Care Team Description 01/31/2020 Telephone Internal Medicine at [facility] Gloria Arguello [facility] [place] [address] Social History Tobacco Use Types Packs/Day [...] this encounter Miscellaneous Notes Telephone Encounter - Gloria Arguello - 01/31/2020 3:06 PM EDT Attempted to call pt to defer 02/09 phy, unable to contact. No MyDH. documented in this encounter Plan of Treatment Upcoming Encounters Date Type Specialty Care Team Description 08/06/2022 Office Visit Plastic Surgery Peña Woodward MD [facility] PLASTIC SURGERY [place] [phone] ( josé luis) 08/19/2022 Office Visit Podiatry Tom Titus DPM [place], [place] [address] (Wo rk) 09/08/2022 Office Visit Internal Medicine Janay Hay MD [facility] GENERAL INTERNAL MEDICINE [place], [place] [address] (Wo rk) 10/12/2059 Hospital Encounter Surgery Jim Hanley MD [facility] [place], [place] [address] (Flores ordonez) Scheduled Procedures Name [...] on filedocumented in this encounter Care Teams Wood Barrel Reconditioner Relationship Specialty Start Date End Date Tom Hay MD PCP - General Internal Medicine 09/15/[address] [facility] GENERAL [place] [address] documented as of this encounter
--- OUTSIDE RECORDS SUMMARY | 2022-07-12 00:48 | XMS_ITS | Encounter Summary ---
:1965 Author Organization [place] [address] Care Team Providers Name Role Phone Tom Hay MD Primary Care Provider Encounter Details Date Type Department Care Team Description 07/10/2020 Orders Only Internal Medicine at Tom Hay renal incidentaloma [facility] [place] Kevin [facility] [address] [place] GENERAL INTERNAL [address] MEDICINE [phone] [place], [place] [address] (Wo rk) Social History Tobacco [...] Office Visit Plastic Surgery Peña Woodward MD [facility] PLASTIC SURGERY [place] [phone] ( rk) 08/19/2022 Office Visit Podiatry Tom Titus DPM [place], [place] [address] ( rk) 09/08/2022 Office Visit Internal Medicine Janay Hay MD [facility] GENERAL INTERNAL MEDICINE [place], [place] [address] (Wo rk) 10/12/2059 Hospital Encounter Surgery Jim Hanley MD [facility] [place], [place] [address] (Wo rk) Scheduled Procedures Name [...] as of this encounter Visit Diagnoses Diagnosis Adrenal incidentaloma Other specified disorders of adrenal gla nds documented in this encounter Care Teams Senior Marketing Data Analyst Relationship Specialty Start Date End Date Tom Hay MD PCP - General General Internal Medicine 09/15/18 [facility] [place] [address] documented as of this encounter
--- OUTSIDE RECORDS SUMMARY | 2022-07-12 00:48 | XMS_ITS | Encounter Summary ---
:1965 Author Organization [facility] [place] [address] Care Team Providers Name Role Phone Tom Hay MD Primary Care Provider Reason for Visit Reason Onset Date Comments New Medication Request 06/08/2020 Encounter Details Date Type Department Care Team Description 06/08/2020 Telephone Internal Medicine at [facility] [place] [address] Social History Tobacco Use Types Packs/Day [...] Telephone Encounter - Oracio Chinchilla - 06/08/2020 9:22 AM EDT Message: Pt is asking for a new prescription, Ketone Test strips. Pt states she was told to test once a week by an ED Dr. States she is losing a pound a day. Pt states this is all due to her diabetes. Ask caller their first and last name and relationship to the patient: Emmanuelle Best time to call back: any Ok to leave a message: yes Ok to send [facility] message: n Offered Appointment: n MA/Nurse/[place] contacted via: Message: y Call: n Pager: n documented in this encounter Plan of Treatment Upcoming Encounters Date Type Specialty Care Team Description 08/06/2022 Office Visit Plastic Surgery Peña Woodward MD [facility] PLASTIC SURGERY [place], [place] [address] (Wo rk) 08/19/2022 Office Visit Podiatry Tom Titus DPM [place], [place] [address] (Wo rk) 09/08/2022 Office Visit Internal Medicine Janay Hay MD [facility] GENERAL INTERNAL MEDICINE [place], [place] [address] (Wo rk) 10/12/2059 Hospital Encounter Surgery Jim Hanley MD [facility] [place], [place] [address] (Wo rk) Scheduled Procedures Name [...] on filedocumented in this encounter Care Teams Analytical Consultant Relationship Specialty Start Date End Date Tom Hay MD PCP - General General Internal Medicine 09/15/18 [facility] GENERAL [place] [address] documented as of this encounter
--- OUTSIDE RECORDS SUMMARY | 2022-07-12 00:48 | XMS_ITS | Encounter Summary ---
:1965 Author Organization [facility] Address [facility] [address] Care Team Providers Name Role Phone Tom Hay MD Primary Care Provider Encounter Details Date Type Department Care Team Description 07/04/2020 Laboratory Lab 3L Mehreen Uncontrolled ty pe 2 diabetes mellitus with hyperglycemia; Appointment [facility] ([facility] Hypothyro idism, unspecified type; [facility] Vitamin D deficiency; [facility] Adrenal i ncidentaloma; Drive Diabetes mellitus due to und erlying condition with other oral complications ; [facility] main tenance; [id number] Controlled type 2 diabetes m ellitus without complication, unspecified whether group home insulin use; [phone] Essential hyper tension Social History Tobacco Use Types Packs/Day Years [...] Office Visit Plastic Surgery Peña Woodward MD [facility] [place] [id number] (Wo rk) 08/19/2022 Office Visit Podiatry Tom Titus DPM [place] [phone] (Wo rk) 09/08/2022 Office Visit Internal Medicine Janay Hay MD [facility] INTERNAL [facility]ICINE [place], [place] [address] (Wo rk) 10/12/2059 Hospital Encounter Surgery Jim Hanley MD [facility] [place], [place] [address] (Wo rk) Scheduled Procedures Name [...] Priority Date/Time Associated Diagnosis Comme nts HC CREATININE - NON Routine 07/04/2020 4:20 Uncontrolled type 2 Results for this BLOOD PM EDT diabetes mellitus procedure are in with hyperglycemia the resul ts section. HEMOGRAM Routine 07/04/2020 4:19 Diabetes mellitus due Res ults for this PM EDT to underlying procedure are in condition with other the res ults oral complicatio ns section. Healthcare maintenance DIFFERENTIAL, Routine 07/04/2020 4:19 Diabetes mellitus due Re sults for this AUTOMATED PM EDT to underlying procedure are in condition with other the res ults oral complicatio ns section. Healthcare maintenance HC HEPATITIS C Routine 07/04/2020 4:19 Healthcare Results fo r this ANTIBODY PM EDT maintenance procedure are i n the results section. HC VITAMIN D TOTAL-25 Routine 07/04/2020 4:19 Vitamin D defici ency Results for this HYDROXY PM EDT procedure are i n the results section. HC [facility] RENIN, PLASMA Routine 07/04/2020 4:19 Adrenal incidenta catalino Results for this PM EDT procedure are i n the results section. HC HIV SCREEN, 4TH Routine 07/04/2020 4:19 Healthcare Result s for this GENERATION PM EDT maintenance procedure are i n the results section. HC CBC,PLT & AUTO Routine 07/04/2020 4:19 Diabetes mellitus du e DIFF PM EDT to underlying condition with other oral complicatio ns Healthcare maintenance HC THYROID Routine 07/04/2020 4:19 Hypothyroidism, Results f or this STIMULATING HORMONE, PM EDT unspecified type pro cedure are in SERUM the results section. HC HEMOGLOBIN A1C Routine 07/04/2020 4:19 Uncontrolled type 2 Results for this PM EDT diabetes mellitus procedure are in with hyperglycemia the resul ts section. HC CORTISOL, BLOOD Routine 07/04/2020 4:19 Adrenal incidentalo ma Results for this PM EDT procedure are i n the results section. COMPREHENSIVE Routine 07/04/2020 4:19 Uncontrolled type 2 Resu lts for this METABOLIC PANEL PM EDT diabetes mellitus procedu re are in (NON-FASTING) with hyperglycemia the resu lts section. documented in this encounter Results U Albumin/Cre Ratio (07/04/2020 4:20 PM EDT) athologist Signature Alb/Cr Ratio, 8 0 - 29 [facility] Random mcg/mg [facility] LABORATORY Comment: Reference Ranges: <30 mcg/mg: Normal [...] 2, 357? 362 U Albumin Conc, Random 11.1 mg/L [facility] LABORATORY U Creatinine 144 mg/dL [facility] LABORATORY Specimen Anatomical Collection Method Collection Time Receive d Time (Source) Location / / Volume Laterality Urine specimen 07/04/2020 4:20 PM 020 5:06 (specimen) EDT PM EDT Resulting Agency Comment Spec In Lab Nenita Green MD URINE ORDERABLES Performing Organization Address City/State/[place] [address] (ABNORMAL) Differential, Automated (07/04/2020 4:19 PM EDT) [facility] Method Time Signature Neutrophils % 59.4 % [facility] LABORATORY Neutr Abs (ANC) 6.52 (H) 1.70 - [facility] 6.10 [facility] x10(3)/[facility] LABORATORY Lymphocytes % 30.1 % [facility] LABORATORY Lymphocytes Abs 3.3 (H) 0.9 - 3.2 [facility] x10(3)/[facility] LABORATORY Monocytes % 5.7 % [facility] LABORATORY Monocyte Abs 0.6 0.3 - 0.9 [facility] x10(3)/[facility] LABORATORY Eosinophils % 3.4 % [facility] LABORATORY Eosinophils Abs 0.4 0.0 - 0.4 [facility] x10(3)/[facility] LABORATORY Basophils % 0.7 % [facility] LABORATORY Basophils Abs 0.1 0.0 - 0.1 [facility] x10(3)/[facility] LABORATORY Immature Gran % 0.70 % [...] Gran Abs 0.08 (H) 0.00 - 0.04 x10(3)/[facility] LABORATORY Specimen Anatomical Collection Method Collection Time Receive d Time (Source) Location / / Volume Laterality Blood specimen 07/04/2020 4:19 PM 020 4:26 (specimen) EDT PM EDT Resulting Agency Comment Spec In Lab Tom Hay MD HEMATOLOGY ORDERABLES Performing Organization Address City/State/[place] [address] (ABNORMAL) Hemogram (07/04/2020 4:19 PM EDT) Analysis Performed At Patho logist Time Signature WBC 11.0 (H) 4.0 - 9.5 [facility] x10(3)/[facility] LABORATORY RBC 4.93 4.00 - [place] [facility] 5.21 [facility] x10(6)/[facility] LABORATORY Hemoglobin 15.1 11.7 - [place] 15.5 gm/dL [facility] LABORATORY Hematocrit 46.0 (H) 35.7 - [place] 45.8 % [facility] LABORATORY MCV 93.3 82.6 - [facility] 94.4 [facility] LABORATORY MCH 30.6 27.1 - [facility] 32.0 pg [facility] LABORATORY MCHC 32.8 31.7 - [facility] 35.0 gm/dL [facility] LABORATORY Platelets 300 145 - 357 [facility] x10(3)/[facility] LABORATORY RDWSD 45.2 37.0 - [facility]DA 46.0 [facility] LABORATORY RDWCV 13.2 11.5 - [place] 14.1 % [facility] LABORATORY MPV 9.7 7.6 - 12.9 [facility] LABORATORY nRBC % Auto 0.0 % [facility] LABORATORY nRBC Abs Auto 0.000 0.000 - [place] 0.000 [facility] x10(3)/[facility] LABORATORY Specimen Anatomical Collection Method Collection Time Receive d Time (Source) Location / / Volume Laterality Blood specimen 07/04/2020 4:19 PM 020 4:26 (specimen) EDT PM EDT Resulting Agency Comment Spec In Lab Tom Hay MD HEMATOLOGY ORDERABLES Performing Organization Address City/[facility]/[place] [address] Hepatitis C Antibody (07/04/2020 4:19 PM EDT) Analysis Performed At Patho logist Time Signature Hepatitis C Ab Negative Negative [facility] LABORATORY Specimen Anatomical Collection Method Collection Time Receive d Time (Source) Location / / Volume Laterality Blood specimen 07/04/2020 4:19 PM 020 4:26 (specimen) EDT PM EDT Resulting Agency Comment Spec In Lab Tom Hay MD IMMUNOLOGY ORDERABLES Performing Organization Address City/[facility] [place] [address] HIV Screen, 4th Generation ([facility]/CGP/APD) (07/04/2020 4:19 PM EDT) Analysis Performed At [facility] Signature HIV-1/2 Ab and Negative Negative [facility] LABORATORY Comment: This 4th Generation HIV test [...] Hay MD IMMUNOLOGY ORDERABLES Performing Organization Address City/[facility] Phon e Number [address] Renin Activity (07/04/2020 4:19 PM EDT) P athologist Signature Renin Activity 1.0 ng/ml/hr [facility] LABORATORY Comment: REFERENCE VALUE------ (Peripheral vein specimen) Na-deplete, upright: ??Mean: 5.9 ??Range: 2.9-10.8 Na-replete, upright: ??Mean: 1.0 ??Range: < or =0.6-3.0 ADDITIONAL INFORMATIO N Testing performed by Liquid Chromatograp hy-Tandem Mass Spectrometry (LC-MS/MS). This test was developed and its performa nce characteristics determined by [facility] in a manner co nsistent with CLIA requirements. This test has not been nigel ared or approved by the U.S. Food and Drug Administration. Test Performed by: [facility] [address] [id number]: Tom Harrison M.D. Ph. D.; CLIA# [id number] Specimen Anatomical Collection Method Collection Time Receive d Time (Source) Location / / Volume Laterality Blood specimen 07/04/2020 4:19 PM 020 4:15 (specimen) EDT PM EDT Resulting Agency Comment Spec In Lab Tom Hay MD CHEMISTRY ORDERABLES Performing Organization Address City/[facility]/ZIP Code Phon e Number [address] Cortisol (07/04/2020 4:19 PM EDT) athologist Signature Cortisol 6.6 mcg/dL [facility] LABORATORY Comment: Reference ranges: ??AM (6-10am): ??4.8-19.5 mcg/dL ??PM (4-8pm) : ??2.5-11.9 mcg/dL Specimen Anatomical Collection Method Collection Time Receive d Time (Source) Location / / Volume Laterality Blood specimen 07/04/2020 4:19 PM 020 4:25 (specimen) EDT PM EDT Resulting Agency Comment Spec In Lab Tom Hay MD CHEMISTRY ORDERABLES Performing Organization Address City/[facility] Phon e Number [address] (ABNORMAL) Vitamin D, 25-Hydroxy (07/04/2020 4:19 PM EDT) P athologist Signature 25-OH Vit D 16 (L) 21 - 100 [facility] Total ng/mL [facility] LABORATORY Comment: Please note, effective February 15, 2020, jonatan tional result field for Vitamin D Interpretation, and updated flagging not ification. 25-OH Vit D Interp Deficient [facility] LABORATORY Specimen Anatomical Collection Method Collection Time Receive d Time (Source) Location / / Volume Laterality Blood specimen 07/04/2020 4:19 PM 020 4:26 (specimen) EDT PM EDT Resulting Agency Comment Spec In Lab Tom Hay MD CHEMISTRY ORDERABLES Performing Organization Address City/State/[place] [address] Comprehensive metabolic panel (non-fasting) (07/04/2020 4:19 PM EDT) P athologist Signature Glucose Lvl 158 65 - 199 [facility] mg/dL [facility] LABORATORY Comment: Diabetes: >=200 mg/dL plus symp toms BUN 10 8 - 18 mg/dL [facility] LABORATORY Creatinine 0.71 0.70 - 1.20 mg/dL [facility] LABORATORY Sodium 143 135 - 145 mmol/L [facility] LABORATORY Potassium 3.7 3.5 - 5.0 mmol/L [facility] LABORATORY Comment: Please note: ??Patients with WBC >100,00 0 may have falsely elevated Potassium levels. ??For accurate Potassium quantif ication in these patients send serum separator tube (gold top) for subsequent determinations. ??Contact the Clinical Chemistry Laboratory if there are any qu estions. Chloride 102 98 - 107 mmol/L [facility] LABORATORY CO2 28 22 - 31 mmol/L [facility] LABORATORY Anion Gap 13 5 - 15 mmol/L [facility] LABORATORY Calcium 9.1 8.5 - 10.5 mg/dL [facility] LABORATORY Total Protein 6.6 6.1 - 8.0 gm/dL [facility] LABORATORY Albumin 4.0 3.2 - 5.2 gm/dL [facility] LABORATORY AST 8 0 - 30 unit/L [facility] LABORATORY ALT 8 0 - 30 unit/L [facility] LABORATORY Alk Phos 72 35 - 105 unit/L [facility] LABORATORY Total Bilirubin 0.2 0.2 - 1.3 mg/dL [facility] LABORATORY Estimated GFR 98 >=60 mL/min/1.73 m?? [facility] LABORATORY Comment: The eGFR was calculated using the CKD-EP I equation. As with all creatinine based estimates of kidney function, eGFR values calculated with the CKD-EPI equation are not accurate in patients wi th acute kidney failure, extremes of body mass or the acutely ill. [email or web address]/[facility] ATOKAnkf eGFR 113 >=60 mL/min/1.73 m?? [facility] LABORATORY Comment: The eGFR was calculated using the CKD-EP I equation. As with all creatinine based estimates of kidney function, eGFR values calculated with the CKD-EPI equation are not accurate in patients wi th acute kidney failure, extremes of body mass or the acutely ill. [email or web address]/[facility] ATOKAnkf Specimen Anatomical Collection Method Collection Time Receive d Time (Source) Location / / Volume Laterality Blood specimen 07/04/2020 4:19 PM 020 4:25 (specimen) EDT PM EDT Resulting Agency Comment Spec In Lab Tom Hay MD CHEMISTRY ORDERABLES Performing Organization Address City/State/[place] [address] (ABNORMAL) Hemoglobin A1c (07/04/2020 4:19 PM EDT) Analysis Performed At Patho logist Time Signature Hemoglobin A1C 6.6 (H) 4.3 - 5.6 [facility] LABORATORY Comment: Reference Range: 4.3 - [...] Mellitus, Diabetes Care 2013; 36: Suppl. 1, S67-69 Est Avg Gluc 144 mg/dL [facility] LABORATORY Comment: eAG equivalents for HbA1c percentages: HbA1c(%) ?eAG(mg/dL) 6.0 ?126 6.5 ?140 7.0 ?154 7.5 ?169 8.0 ?183 8.5 ?197 9.0 ?212 9.5 ?226 10.0 ? 240 Limitations: The eAG calculation has not been validated on women, individuals below 18 years old and above 70 years old, and individuals with hemoglobinopathies. Additional resources are available on [facility] ADA website. Steve CHAO, Bhumi J, Kay R, et al. ??Tr anslating the A1C assay into estimated average glucose values. ??Diabetes Care 2008:31(8):0269-0310. Specimen Anatomical Collection Method Collection Time Receive d Time (Source) Location / / Volume Laterality Blood specimen 07/04/2020 4:19 PM 020 4:25 (specimen) EDT PM EDT Resulting Agency Comment Spec In Lab Tom Hay MD CHEMISTRY ORDERABLES Performing Organization Address City/State/ZIP Code [place] [address] TSH (07/04/2020 4:19 PM EDT) P athologist Signature TSH 2.04 0.27 - 4.20 [facility] mcIU/mL [facility] LABORATORY Specimen Anatomical Collection Method Collection Time Receive d Time (Source) Location / / Volume Laterality Blood specimen 07/04/2020 4:19 PM 020 4:25 (specimen) EDT PM EDT Resulting Agency Comment Spec In Lab Tom Hay MD CHEMISTRY ORDERABLES Performing Organization Address City/State/[place] [address] documented in this encounter Visit Diagnoses Diagnosis Uncontrolled type 2 diabetes mellitus wi th hyperglycemia Hypothyroidism, unspecified type Vitamin D deficiency Unspecified vitamin D deficiency Adrenal incidentaloma Other specified disorders of adrenal gla nds Diabetes mellitus due to underlying cond ition with other oral complications Healthcare maintenance Routine general medical examination at a health care facility Controlled type 2 diabetes mellitus with out complication, unspecified whether group home insulin use Essential hypertension Unspecified essential hypertension documented in this encounter Care Teams Armature Rewinder Relationship Specialty Start Date End Date Tom Hay MD PCP - General General Internal Medicine 09/15/18 [facility] [place] [address] documented as of this encounter
--- OUTSIDE RECORDS SUMMARY | 2022-07-12 00:48 | XMS_ITS | Encounter Summary ---
:1965 Author Organization [facility] Address [facility] [place] [address] Care Team Providers Name Role Phone Tom Hay MD Primary Care Provider Encounter Details Date Type Department Care Team Description 01/24/2020 Telephone Internal Medicine at [facility] Corey Mcqueen [facility] [place] [address] Social History Tobacco Use Types Packs/Day [...] this encounter Miscellaneous Notes Telephone Encounter - Corey Mcqueen - 01/24/2020 12:43 PM EDT Called to defer phy on 02/09 (CB will be inpatient). No VM set up. Unable to lm. documented in this encounter Plan of Treatment Upcoming Encounters Date Type Specialty Care Team Description 08/06/2022 Office Visit Plastic Surgery Peña Woodward MD [facility] [place] [phone] (Wo rk) 08/19/2022 Office Visit Podiatry Tom Titus DPM [place], [place] [address] (Wo rk) 09/08/2022 Office Visit Internal Medicine Janay Hay MD [facility] INTER[facility] MEDICINE [place], [place] [address] (Wo rk) 10/12/2059 Hospital Encounter Surgery Jim Hanley MD [facility] [place], [place] [address] (Wo josé luis) Scheduled Procedures [...] on filedocumented in this encounter Care Teams Loading Unit Operator Crimping Relationship Specialty Start Date End Date Tom Hay MD PCP - General Internal Medicine 09/15/18 [facility] [place] [address] documented as of this encounter
--- OUTSIDE RECORDS SUMMARY | 2022-07-12 00:48 | XMS_ITS | Encounter Summary ---
:1965 Author Organization [facility] Address [address] [facility] [place] [address] Care Team Providers Name Role Phone Tom Hay MD Primary Care Provider Encounter Details Date Type Department Care Team Description 03/30/2020 Telephone Dermatology at [facility] Tsering Sung LPN [address] [place] [address] Social History Tobacco Use Types Packs/Day [...] this encounter Miscellaneous Notes Telephone Encounter - Tsering Sung LPN - 03/30/2020 10:30 AM EDT Called and spoke with Emmanuelle. She reports that her scalp psoriasis was doing well for a few days, but since has gotten worse again.She has been using Taclonex 0.005-0.064% suspension - Apply to affected areas on the scalp 3 times weekly. She also mentioned she is using Clobetasol-Emollient 0.05 % Foam - Apply twice daily to worse scalp psoriasis on weekends-only as needed. Looking into the last note is shows the Taclonex and not the Clobetasol. She mentioned her left cheek the are is a=mailny resolved but she can still feel something and is wondering if it needs to be retreated. Telephone Encounter - Tsering Sung LPN - 03/30/2020 10:30 AM EDT ----- Message from Jacob Blair III, MD sent at 03/30/2020 7:46 AM EDT ----- Please check on the lesions we treated. And scalp psoriasis Thanks. See as planned if needed, sooner if problems arise. documented in this encounter Plan of Treatment Upcoming Encounters Date Type Specialty Care Team Description 08/06/2022 Office Visit Plastic Surgery Peña Woodward MD [facility]LAST[facility] SURGERY [place], [place] [address] (Wo rk) 08/19/2022 Office Visit Podiatry Tom Titus DPM [place], [place] 0[address] (Wo rk) 09/08/2022 Office Visit Internal Medicine Janay Hay MD [facility] INTERNAL [facility]ICINE [place], [place] [address] (Wo rk) 10/12/2059 Hospital Encounter Surgery Jim Hanley MD [facility] [place], [place] [address] (Wo rk) Scheduled Procedures Name [...] on filedocumented in this encounter Care Teams Wooling Machine Operator Relationship Specialty Start Date End Date Tom Hay MD PCP - General General Internal Medicine 09/15/18 [facility] [place] [address] documented as of this encounter
--- OUTSIDE RECORDS SUMMARY | 2022-07-12 00:48 | XMS_ITS | Encounter Summary ---
:1965 Author Organization [facility] [place] [address] Care Team Providers Name Role Phone Tom Hay MD Primary Care Provider Reason for Visit Reason Onset Date Comments Prior Authorization 02/06/2020 Valtrex Encounter Details Date Type Department Care Team Description 02/06/2020 Telephone Internal Medicine at [facility] Pr ior Authorization [facility] (Valtrex) [place] [address] Social History Tobacco Use Types Packs/Day [...] documented as of this encounter Miscellaneous Notes Addendum Note - Tom Hay MD - 02/07/2020 9:57 AM EDT Addended by: TOM HAY on: 02/07/2020 09:57 AM Modules accepted: Orders Telephone Encounter - Mitzy Still CMA - 02/07/2020 7:14 AM EDT Medication Prior Authorization for Primary [place] [address] DENIED: Valtrex Case/Reference #: [id number] Additional Information from Insurance: Brand Valtrex was denied because you did not meet the following: Your diagnosis includes treatment of cold sores (herpes labialis), genital herpes, or herpes zoster. And if you have tried and failed one of the covered medications. Acyclovir tablet and famciclovirare the covered alternatives. Telephone Encounter - Mitzy Still CMA - 02/06/2020 7:59 AM EDT Medication Prior Authorization for Primary [place] [address] Request received via: KIRA Patient: Emmanuelle Bynum Patient : 1965 Insurance Company: [employer] Sent via: [facility] Phone: Jolly: [id number] Physician: Tom Hay MD Medication Requested: Brand name valACYclovir (VALTREX) 1 gram Tablet Frequency/Sig: Take 1 tablet by mouth 2 times daily. Disp: 30 Refills: 3 Currently taking: yes If yes, how lon Diagnosis for this medication: Prior medications trialed in this patient: Medication: valacyclovir Approx Dates: 04/2018-10/2019 Outcome/Adverse Reactions: inadequate response documented in this encounter Plan of Treatment Upcoming Encounters Date Type Specialty Care Team Description 08/06/2022 Office Visit Plastic Surgery Peña Woodward MD [facility] PLASTIC SURGERY [place], [place] [address] (Flores ordonez) 08/19/2022 Office Visit Podiatry Tom Titus DPM [place], [place] 0375 (Wo rk) 09/08/2022 Office Visit Internal Medicine Janay Hay MD [facility] GENER[facility] INTERNAL MEDICINE [place], [place] [address] (Flores rk) 10/12/2059 Hospital Encounter Surgery Jim Hanley MD [facility] [place], [place] [address] (Wo rk) Scheduled Procedures Name [...] on filedocumented in this encounter Care Teams Online Activist Relationship Specialty Start Date End Date Tom Hay MD PCP - General Woods Internal Medicine 09/15/18 [facility] [place] [address] documented as of this encounter
--- OUTSIDE RECORDS SUMMARY | 2022-07-12 00:48 | XMS_ITS | Encounter Summary ---
:1965 Author Organization [facility] Address [place] [id number] Care Team Providers Name Role Phone Tom Hay MD Primary Care Provider Reason for Referral Diagnostic Test (Routine) - Closed Specialty Diagnoses / Procedures Referred By Contact Refer red To Contact Radiology Diagnoses Cervical radicular pain Tom Hay MD [facility] Rad Mri Procedures MRI Cervical Spine wo Contrast (Generic) [facility] [place], [place] [phone] [place] [address] Referral ID Status Reason Start Date Expiration Date Visits V isits Requested Authorized [id number] Closed Specialty 07/04/2020 01/01/2022 1 1 Service Requested Reason for Visit Diagnostic Test (Routine) - Closed Specialty Diagnoses / Procedures Referred By Contact Refer red To Contact Radiology Diagnoses Cervical radicular pain Tom Hay MD [facility] Rad Mri Procedures MRI Cervical Spine wo Contrast (Generic) [facility] [place], [place] [phone] [place] [address] Referral ID Status Reason Start Date Expiration Date Visits V isits Requested Authorized [id number] Closed Specialty 07/04/2020 01/01/2022 1 1 Service Requested Encounter Details Date Type Department Care Team Description 07/18/2020 Hospital Encounter MRI at [facility] Tom Hay Cervical radicular [facility] MD [address] [place], [place] CENTER [address] GENERAL INTERNAL [phone] [place], [place] [address] Social History Tobacco Use Types [...] 2 sprays by Nasal 0 27.5 mcg/actuation [place], route daily. SuspensionIndications: Indications: allergic rhinitis Allergic Rhinitis ergocalciferoL, vitamin Take 1 capsule by 8 capsule 0 07/09 D2, (vitamin D) 50,000 mouth once a week 0 unit Capsule for [address] (Cymbalta) Take 1 capsule by [...] 3 times daily 1 Vertigo as needed. Crystal Pen Needle 32 gauge USE QID PRN TO TEST 0 x Needle BLOOD SUGAR 0 [id number] Inhale 1 Inhalation 60 each 3 0 11/03/2019 anter (Trelegy Ellipta) into the lungs 0 100-62.5-25 mcg Disk with daily. Device ipratropium-albuterol Take 0.5 mg by 1 Box [...] MiscIndications: diabetes lancets Indications: mellitus diabetes mellitus blood sugar diagnostic Use as instructed to 100 each 11 strips StripIndications: check BG 4 times 0 Controlled type 2 daily. (Freestyle diabetes mellitus without Lite)DX code E11.9 complication, unspecified IDD whether penitentiary insulin use pen needle, diabetic 1 each by 100 [...] vitamin with Take 1 tablet by 0 [id number] mouth daily. 2 Tablet metroNIDAZOLE Apply topically [...] MD [facility] PLASTIC SURGERY [place], [place] [address] (Wo rk) 08/19/2022 Office Visit Podiatry Tom Titus DPM [place], [place] [address] (Wo rk) 09/08/2022 Office Visit Internal Medicine Janay Hay MD [facility] GENERAL INTERNAL MEDICINE [place], [place] [address] (Wo rk) 10/12/2059 Hospital Encounter Surgery Jim Hanley MD [facility] SPINE CENTER [place], [place] [address] (Wo rk) Scheduled Procedures Name Priority Associated [...] Name Priority Date/Time Associated Diagnosis Comme nts MRI CERVICAL SPINE Routine 07/18/2020 4:27 PM Cervical radicul ar Results for this WO CONTRAST EDT pain procedure are i n the results section. documented in this encounter Results MRI Cervical [...] please contact e number below. ? Narrative 07/18/2020 5:09 [...] below. Tom Hay MD IMG MRI ORDERABLES documented in this encounter Visit Diagnoses Diagnosis Cervical radicular pain Brachial neuritis or radiculitis nos documented in this encounter Care Teams Film Waxer Relationship Specialty Start Date End Date Tom Hay MD PCP - General General Internal Medicine 09/15/18 [facility] GENERAL [place] [address] documented as of this encounter
--- OUTSIDE RECORDS SUMMARY | 2022-07-12 00:48 | XMS_ITS | Encounter Summary ---
:1965 Author Organization [facility] Address [facility] [place] [address] Care Team Providers Name Role Phone Tom Hay MD Primary Care Provider Reason for Visit Reason Onset Date Comments Other 07/20/2020 Encounter Details Date Type Department Care Team Description 07/20/2020 Telephone [place] Medicine [place] [facility] [place]fa Erwin Other [facility] [address] [place] [address] Social History Tobacco Use Types Packs/Day [...] this encounter Miscellaneous Notes Telephone Encounter - Juliet Oliva - 07/23/2020 9:12 AM EDT Pt is calling back she is not sure who called her on Thursday but would like to have whoever it was call her back. She thinks it may be in regards to some imaging. Please call her at [phone] Telephone Encounter - Alfa Erwin - 07/20/2020 2:23 PM EDT Pt calling stating that she received a phone call, but not sure who if you reached out to pt can youplease call her back at [phone] documented in this encounter Plan of Treatment Upcoming Encounters Date Type Specialty Care Team Description 08/06/2022 Office Visit Plastic Surgery Peña Woodward MD [facility] PLASTIC SURGERY [place], [place] [address] (Wo josé luis) 08/19/2022 Office Visit Podiatry Tom Titus DPM [facility] [address] [place], [place] [address] (Flores ordonez) 09/08/2022 Office Visit Internal Medicine Janay Hay MD [facility] GENERAL INTERNAL MEDICINE [place], [place] [address] (Wo rk) 10/12/2059 Hospital Encounter Surgery Jim Hanley MD [facility] DR SPINE CENTER [place], [place] [address] (Wo rk) Scheduled Procedures Name [...] on filedocumented in this encounter Care Teams Plastic Top Assembler Relationship Specialty Start Date End Date Tom Hay MD PCP - General General Internal Medicine 09/15/18 [facility] [place] [address] documented as of this encounter
--- OUTSIDE RECORDS SUMMARY | 2022-07-12 00:48 | XMS_ITS | Encounter Summary ---
:1965 Author Organization [facility] Address [address] [facility] [place] [address] Care Team Providers Name Role Phone Tom Hay MD Primary Care Provider Reason for Visit Reason Onset Date Comments Medication Refill 08/17/2020 Encounter Details Date Type Department Care Team Description 08/17/2020 Refill Internal Medicine at [facility] ntrolled type 2 [facility] diabetes mellitus without [facility] [place], [place] [address] whether fruit press operator insulin [phone] use Social History Tobacco Use Types Packs/Day Years [...] Notes Telephone Encounter - Lata Souza - 08/17/2020 10:51 AM EST Pt is out of medication, please HINDS. documented in this encounter Plan of Treatment Upcoming Encounters Date Type Specialty Care Team Description 08/06/2022 Office Visit Plastic Surgery Peña Woodward MD [facility] PLASTIC SURGERY [place], [place] [address] ( josé luis) 08/19/2022 Office Visit Podiatry Tom Titus DPM [place], [place] [address] (Wo rk) 09/08/2022 Office Visit Internal Medicine Janay Hay MD [facility] GENERAL INTERNAL MEDICINE [place], [place] [address] (Flores ordonez) 10/12/2059 Hospital Encounter Surgery Jim Hanley MD [facility] SPINE CENTER [place], [place] [address] (Flores ordonez) Scheduled Procedures Name [...] as of this encounter Visit Diagnoses Diagnosis Controlled type 2 diabetes mellitus with out complication, unspecified whether fruit press operator insulin use documented in this encounter Care Teams Oil Lease Broker Relationship Specialty Start Date End Date Tom Hay MD PCP - General General Internal Medicine 09/15/18 [facility] [place] [address] documented as of this encounter
--- OUTSIDE RECORDS SUMMARY | 2022-07-12 00:49 | XMS_ITS | Encounter Summary ---
:1965 Author Organization [facility] Address [place] [address] Care Team Providers Name Role Phone Tom Hay MD Primary Care Provider Encounter Details Date Type Department Care Team Description 12/05/2019 Telephone Dermatology at [facility] Aminata Perez, CCMA [address] [place] [address] Social History Tobacco Use Types Packs/Day [...] this encounter Miscellaneous Notes Telephone Encounter - Aminata Perez - 12/05/2019 4:05 PM EST Received a refill request via fax from the pharmacy for betamethasone, Calcipotriene and Clobetasol.Patient needs to be seen prior to any refills. Tried to call patient but no voicemail has been set up. documented in this encounter Plan of Treatment Upcoming Encounters Date Type Specialty Care Team Description 08/06/2022 Office Visit Plastic Surgery Peña Woodward MD [facility] PLASTIC SURGERY [place], [place] [address] ( josé luis) 08/19/2022 Office Visit Podiatry Tom Titus DPM [place], [place] [address] ( josé luis) 09/08/2022 Office Visit Internal Medicine Janay Hay MD [facility] GENERAL INTERNAL MEDICINE [place], [place] [address] ( josé luis) 10/12/2059 Hospital Encounter Surgery Jim Hanley MD [facility] SPINE CENTER [place], [place] [address] (Flores ordonez) Scheduled Procedures Name Priority Associated [...] on filedocumented in this encounter Care Teams Physics Instructor Relationship Specialty Start Date End Date Tom Hay MD PCP - General General Internal Medicine 09/15/18 [facility] [place] [address] documented as of this encounter
--- OUTSIDE RECORDS SUMMARY | 2022-07-12 00:49 | XMS_ITS | Encounter Summary ---
:1965 Author Organization [facility] Address [facility] [place] [address] Care Team Providers Name Role Phone Tom Hay MD Primary Care Provider Encounter Details Date Type Department Care Team Description 12/08/2019 Telephone Internal Medicine at [facility] Gloria Arguello [facility] [place] [address] Social History Tobacco Use Types Packs/Day [...] Notes Telephone Encounter - Gloria Arguello - 12/08/2019 2:09 PM EST Called pt to follow up on med request, unable to leave message documented in this encounter Plan of Treatment Upcoming Encounters Date Type Specialty Care Team Description 08/06/2022 Office Visit Plastic Surgery Peña Woodward MD [facility] PLASTIC SURGERY [place] [phone] (Wo rk) 08/19/2022 Office Visit Podiatry Tom Titus DPM [place] [phone] (Wo rk) 09/08/2022 Office Visit Internal Medicine Janay Hay MD [facility] GENERAL INTERNAL MEDICINE [place], [place] [address] (Wo rk) 10/12/2059 Hospital Encounter Surgery Jim Hanley MD [facility] SPINE CENTER [place], [place] [address] (Wo rk) Scheduled Procedures Name [...] in this encounter Care Teams Network Systems Consultant Relationship Specialty Start Date End Date Tom Hay MD PCP - General Internal Medicine 09/15/[address] [facility] GENERAL [place] [address] documented as of this encounter
--- OUTSIDE RECORDS SUMMARY | 2022-07-12 00:49 | XMS_ITS | Encounter Summary ---
:1965 Author Organization [facility] Address [facility] [place] [address] Care Team Providers Name Role Phone Tom Hay MD Primary Care Provider Reason for Visit Reason Onset Date Comments Follow-up 10/25/2019 labs Encounter Details Date Type Department Care Team Description 10/25/2019 Telephone Internal Medicine at [facility] Brit [place], Follow-up (labs) [facility] Kevin [place] [address] Social History Tobacco Use Types Packs/Day [...] place to sleep or slept in a intermediate (including now)? Sex Assigned at Date Recorded Not on file documented as of this encounter Miscellaneous Notes Telephone Encounter - Salina Higgins RN - 10/28/2019 7:52 AM EST Medical records at [facility] confirm that pt did not have BC's drawn. Telephone Encounter - Brit Dover RN - 10/25/2019 4:35 PM EST Reason for call: [facility] ED reporting BS > 500 Took urgent call from MARCOS Mongtomery at [facility] ED who said pt was discharged 10/22/19 after coming into ED with high BS, and came back today with BS of 525. RN wanted to be sure that pt could be seen before 10/28/19 appointment that was scheduled after 10/22 visit. Scheduled pt to see Dr. Green for tomorrow, and Nenita Clay, staff educator, said she would be her should Dr. Green want herto become involved. [facility] staff say pt did receive diabetic counseling/education while she was there. documented in this encounter Plan of Treatment Upcoming Encounters Date Type Specialty Care Team Description 08/06/2022 Office Visit Plastic Surgery Peña Woodward MD [facility] PLASTIC SURGERY [place], [place] [address] (Wo rk) 08/19/2022 Office Visit Podiatry Tom Titus DPM [facility] [address] [place], [place] [address] (Wo rk) 09/08/2022 Office Visit Internal Medicine Janay Hay MD [facility] GENERAL INTERNAL MEDICINE [place], [place] [address] (Wo rk) 10/12/2059 Hospital Encounter Surgery Jim Hanley MD [facility] SPINE CENTER [place], [place] [address] (Wo rk) Scheduled Procedures Name Priority Associated [...] on filedocumented in this encounter Care Teams Factory Superintendent Relationship Specialty Start Date End Date Tom Hay MD PCP - General General Internal Medicine 09/15/18 [facility] GENERAL [place] [address] documented as of this encounter
--- OUTSIDE RECORDS SUMMARY | 2022-07-12 00:49 | XMS_ITS | Encounter Summary ---
:1965 Author Organization [place] [address] Care Team Providers Name Role Phone Tom Hay MD Primary Care Provider Encounter Details Date Type Department Care Team Description 11/09/2019 Telephone [place] [facility] [place]enita Clay, RN [facility] [place] [address] Social History Tobacco Use Types Packs/Day [...] encounter Miscellaneous Notes Telephone Encounter - Nenita Clay RN - 11/09/2019 3:22 PM EST CDE contacted Emmanuelle to let her know to increase her Lantus by 5 units ( up to 57 units) tonight, and if her AM fasting remains > 500 mg/dl, please the next day increase another 5 units (up to 62 units), SQ. *(for a total of 10 units Lantus). Emmanuelle repeated back correctly the above order per PCP. Emmanuelle then states, I am picking up my Ozempic at 430 pm today. Will forward to PCP. documented in this encounter Plan of Treatment Upcoming Encounters Date Type Specialty Care Team Description 08/06/2022 Office Visit Plastic Surgery Peña Woodward MD [facility] PLASTIC SURGERY [place], [place] [address] (Flores ordonez) 08/19/2022 Office Visit Podiatry Tom Titus DPM [place], [place] [address] (Flores ordonez) 09/08/2022 Office Visit Internal Medicine Janay Hay MD [facility] GENERAL INTERNAL MEDICINE [place], [place] [address] (Flores ordonez) 10/12/2059 Hospital Encounter Surgery Jim Hanley MD [facility] SPINE CENTER [place], [place] [address] (Wo rk) Scheduled Procedures Name [...] on filedocumented in this encounter Care Teams Catalog Librarian Relationship Specialty Start Date End Date Tom Hay MD PCP - General General Internal Medicine 09/15/18 [facility] [place] [address] documented as of this encounter
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
--- OUTSIDE RECORDS SUMMARY | 2022-07-12 00:49 | XMS_ITS | Encounter Summary ---
:1965 Author Organization [facility] [place] [address] Care Team Providers Name Role Phone Tom Hay MD Primary Care Provider Encounter Details Date Type Department Care Team Description 11/07/2019 Telephone Internal Medicine at [facility] Nenita Clay, RN [facility] [place] [address] Social History Tobacco Use Types Packs/Day [...] Telephone Encounter - Nenita Clay RN - 11/07/2019 2:48 PM EST CDE contacted Emmanuelle to discuss her GLP1-RA (semaglutide/Ozempic) dosing and how to give. CDE Clarifications: Emmanuelle understands that she will not be taking the Bydureon any longer. Emmanuelle understands that semaglutide will be taken along with her insulins as prescribed and that this is not an insulin. Emmanuelle knows how to treat a low glucose should she experience a low glucose. Plan: Pended Semaglutide 0.25 mg/ (per weekly)/SQ (x4 doses) to PCP to sign Will have PCP clarify dosing after 4 weeks for Emmanuelle. Will forward to PCP documented in this encounter Plan of Treatment Upcoming Encounters Date Type Specialty Care Team Description 08/06/2022 Office Visit Plastic Surgery Peña Woodward MD [facility] PLASTIC SURGERY [place], [place] [address] (Wo rk) 08/19/2022 Office Visit Podiatry Tom Titus DPM [place], [place] [address] (Wo josé luis) 09/08/2022 Office Visit Internal Medicine Janay Hay MD [facility] GENERAL INTERNAL MEDICINE [place], [place] [address] (Wo rk) 10/12/2059 Hospital Encounter Surgery Jim Hanley MD [facility] DR SPINE CENTER [place], [place] [address] (Wo rk) Scheduled Procedures Name [...] on filedocumented in this encounter Care Teams Slitter And Cutter Operator Relationship Specialty Start Date End Date Tom Hay MD PCP - General General Internal Medicine 09/15/18 [facility] GENERAL INTERNAL [place] [address] documented as of this encounter
--- OUTSIDE RECORDS SUMMARY | 2022-07-12 00:49 | XMS_ITS | Encounter Summary ---
:1965 Author Organization [facility] [place] [address] Care Team Providers Name Role Phone Tom Hay MD Primary Care Provider Reason for Visit Reason Onset Date Comments Medication Refill 12/08/2019 Encounter Details Date Type Department Care Team Description 12/08/2019 Refill Internal Medicine at [facility] Melissa Cha, TY [facility] [place] [address] Social History Tobacco Use Types Packs/Day [...] Peña Woodward MD [facility] PLASTIC SURGERY [place], [place] [address] (Wo rk) 08/19/2022 Office Visit Podiatry Tom Titus DPM [place], [place] [address] (Wo rk) 09/08/2022 Office Visit Internal Medicine aJnay Hay MD [facility] GENERAL INTERNAL MEDICINE [place], [place] [address] (Wo rk) 10/12/2059 Hospital Encounter Surgery Jim Hanley MD [facility] SPINE CENTER [place], [place] [address] (Wo rk) Scheduled Procedures Name [...] on filedocumented in this encounter Care Teams Hydrography Teacher Relationship Specialty Start Date End Date Tom Hay MD PCP - General Woods Internal Medicine 09/15/18 [facility] GENER[place] [address] documented as of this encounter
--- OUTSIDE RECORDS SUMMARY | 2022-07-12 00:49 | XMS_ITS | Encounter Summary ---
:1965 Author Organization [facility] [place] [address] Care Team Providers Name Role Phone Tom Hay MD Primary Care Provider Encounter Details Date Type Department Care Team Description 11/30/2019 Telephone Internal Medicine at [facility] Nenita Clay, RN [facility] [place] [address] Social History Tobacco Use Types Packs/Day [...] Telephone Encounter - Nenita Clay RN - 11/30/2019 12:26 PM EST Trying to contact Emmanuelle Bynum for f/u DM education/SMBG levels. No answer. Unable to leave a message to contact DM educator due to no voicemail box set up. documented in this encounter Plan of Treatment Upcoming Encounters Date Type Specialty Care Team Description 08/06/2022 Office Visit Plastic Surgery Peña Woodward MD [facility] PLASTIC SURGERY [place], [place] [address] ( josé luis) 08/19/2022 Office Visit Podiatry Tom Titus DPM [place], [place] [address] (Flores ordonez) 09/08/2022 Office Visit Internal Medicine Janay Hay MD [facility] GENERAL INTERNAL MEDICINE [place], [place] [address] ( josé luis) 10/12/2059 Hospital Encounter Surgery Jim Hanley MD [facility] SPINE CENTER [place], [place] [address] (Flores ordonez) Scheduled Procedures Name [...] on filedocumented in this encounter Care Teams Developmental Psychologist Relationship Specialty Start Date End Date Tom Hay MD PCP - General General Internal Medicine 09/15/18 [facility] [place] [address] documented as of this encounter
--- OUTSIDE RECORDS SUMMARY | 2022-07-12 00:49 | XMS_ITS | Encounter Summary ---
:1965 Author Organization [facility] Address [facility] [place] [address] Care Team Providers Name Role Phone Tom Hay MD Primary Care Provider Reason for Visit Reason Onset Date Comments Medication Refill 08/12/2019 Encounter Details Date Type Department Care Team Description 08/12/2019 Refill Internal Medicine at [facility] Mehreen Anaya CCMA [facility] Kevin castañ[place] [address] Social History Tobacco Use Types Packs/Day [...] MD [facility] PLASTIC SURGERY [place], [place] [address] (Wo rk) 08/19/2022 Office Visit Podiatry Tom Titus DPM [place], [place] [address] (Wo rk) 09/08/2022 Office Visit Internal Medicine Janay Hay MD [facility] GENERAL INTERNAL MEDICINE [place], [place] [address] (Wo rk) 10/12/2059 Hospital Encounter Surgery Jim Hanley MD [facility] SPINE CENTER [place], [place] [address] [...] on filedocumented in this encounter Care Teams Balance Clerk Relationship Specialty Start Date End Date Tom Hay MD PCP - General Internal Medicine 09/15/18 [facility] [place] [address] documented as of this encounter
--- OUTSIDE RECORDS SUMMARY | 2022-07-12 00:49 | XMS_ITS | Encounter Summary ---
:1965 Author Organization [facility] [place] [address] Care Team Providers Name Role Phone Tom Hay MD Primary Care Provider Encounter Details Date Type Department Care Team Description 01/10/2020 Telephone Internal Medicine at [facility] Nenita Clay, RN [facility] [place] [address] Social History Tobacco Use Types Packs/Day [...] Telephone Encounter - Nenita Clay RN - 01/10/2020 4:22 PM EDT [facility] contacted Emmanuelle to document her SMBG levels. Emmanuelle could not get her SMBG levels at this time, but states she believes she is averaging 140's(mg/dl) daily and I think it is from the Ozempic. I am not taking Humalog at all. Emmanuelle states she is laying low due to falling but is ok. Emmanuelle is socially distancing and is not sick. Clarification of DM meds: Glipizide 5 mg BID po Lantus 48 units/day SQ Semaglutide 1 mg/week SQ Humalog-NOT taking Emmanuelle has no questions for [facility] at this time. documented in this encounter Plan of Treatment Upcoming Encounters Date Type Specialty Care Team Description 08/06/2022 Office Visit Plastic Surgery Peña Woodward MD [facility] PLASTIC SURGERY [place], [place] [address] (Wo rk) 08/19/2022 Office Visit Podiatry Tom Titus DPM [place], [place] [address] (Wo rk) 09/08/2022 Office Visit Internal Medicine Janay Hay MD [facility] GENERAL INTERNAL MEDICINE [place], [place] [address] (Wo rk) 10/12/2059 Hospital Encounter Surgery Jim Hanley MD [facility] DR SPINE CENTER [place], [place] [address] (Wo rk) Scheduled Procedures [...] on filedocumented in this encounter Care Teams Leasing Agent Relationship Specialty Start Date End Date Tom Hay MD PCP - General General Internal Medicine 09/15/18 [facility] GENERAL [place] [address] documented as of this encounter
--- OUTSIDE RECORDS SUMMARY | 2022-07-12 00:49 | XMS_ITS | Encounter Summary ---
:1965 Author Organization [facility] [place] [address] Care Team Providers Name Role Phone Tom Hay MD Primary Care Provider Reason for Visit Reason Onset Date Comments Medication Refill 08/29/2019 Medication Refill 09/05/2019 Encounter Details Date Type Department Care Team Description 08/29/2019 Refill Dermatology at [facility] Jacob Blair III, MD Psoriasis; [address] [place] [address] [address] [phone] [place] [id number] (Wo rk) Social History Tobacco Use Types [...] this encounter Miscellaneous Notes Telephone Encounter - Jacob Blair III, MD - 08/29/2019 4:23 PM EST Needs an appointment for more refills documented in this encounter Plan of Treatment Upcoming Encounters Date Type Specialty Care Team Description 08/06/2022 Office Visit Plastic Surgery Peña Woodward MD [facility] PLASTIC SURGERY [place], [place] [address] (Wo josé luis) 08/19/2022 Office Visit Podiatry Tom Titus DPM [place], [place] [address] (Wo josé luis) 09/08/2022 Office Visit Internal Medicine Janay Hay MD [facility] GENERAL INTERNAL MEDICINE [place], [place] [address] (Wo josél uis) 10/12/2059 Hospital Encounter Surgery Jim Hanley MD [facility] SPINE CENTER [place], [place] [address] (Wo rk) Scheduled Procedures Name [...] as of this encounter Visit Diagnoses Diagnosis Psoriasis Other psoriasis Vertigo Dizziness and giddiness documented in this encounter Care Teams Electric Power Machine Operator Relationship Specialty Start Date End Date Tom aHy MD PCP - General General Internal Medicine 09/15/18 [facility] [place] [address] documented as of this encounter
--- OUTSIDE RECORDS SUMMARY | 2022-07-12 00:49 | XMS_ITS | Encounter Summary ---
:1965 Author Organization [facility] Address [address] [place] [place] [address] Care Team Providers Name Role Phone Tom Hay MD Primary Care Provider Reason for Visit Reason Onset Date Comments Medication Refill 10/26/2019 Encounter Details Date Type Department Care Team Description 10/26/2019 Refill Internal Medicine at Nenita Clay Controlled type 2 [facility] natural remedy consultant mellitus [facility] without c omplication, [place] [address] vermin exterminator insulin use [phone] Social History Tobacco Use Types Packs/Day Years [...] MD [facility] PLASTIC SURGERY [place] [id number] (Wo rk) 08/19/2022 Office Visit Podiatry Tom Titus DPM [place], [place] [address] (Wo rk) 09/08/2022 Office Visit Internal Medicine Janay Hay MD [facility] GENERAL INTERNAL MEDICINE [place], [place] [address] (Wo rk) 10/12/2059 Hospital Encounter Surgery Jim Hanley MD [facility] SPINE CENTER [place], [place] [address] (Wo rk) Scheduled Procedures Name [...] diabetes mellitus with out complication, unspecified whether vermin exterminator insulin use documented in this encounter Care Teams Glue Drier Operator Relationship Specialty Start Date End Date Tom Hay MD PCP - General General Internal Medicine 09/15/18 [facility] GENERAL [place] [address] documented as of this encounter
--- OUTSIDE RECORDS SUMMARY | 2022-07-12 00:49 | XMS_ITS | Encounter Summary ---
:1965 Author Organization [facility] [place] [address] Care Team Providers Name Role Phone Tom Hay MD Primary Care Provider Reason for Visit Reason Onset Date Comments Medication Refill 10/31/2019 Encounter Details Date Type Department Care Team Description 10/31/2019 Refill Internal Medicine at [facility] Mehreen Anaya CCMA [facility] [place] [address] Social History Tobacco Use Types Packs/Day [...] Office Visit Plastic Surgery Peña Woodward MD [facility] PLASTIC SURGERY [place], [place] [address] (Wo rk) 08/19/2022 Office Visit Podiatry Tom Titus DPM [place], [place] [address] (Wo rk) 09/08/2022 Office Visit Internal Medicine Janay Hay MD [facility] GENERAL INTERNAL MEDICINE [place], [place] [address] (Wo rk) 10/12/2059 Hospital Encounter Surgery Jim Hanley MD [facility] SPINE CENTER [place], [place] [address] (Wo rk) Scheduled Procedures Name [...] giddiness documented in this encounter Care Teams Application Release Manager Relationship Specialty Start Date End Date Tom Hay MD PCP - General General Internal Medicine 09/15/18 [facility] GENERAL [place] [address] documented as of this encounter
--- OUTSIDE RECORDS SUMMARY | 2022-07-12 00:49 | XMS_ITS | Encounter Summary ---
:1965 Author Organization [facility] Address [facility] [place] [address] Care Team Providers Name Role Phone Tom Hay MD Primary Care Provider Encounter Details Date Type Department Care Team Description 12/13/2019 Telephone Internal Medicine at [facility] Gloria Arguello [facility] [place] [address] Social History Tobacco Use Types Packs/Day [...] Notes Telephone Encounter - Gloria Arguello - 12/13/2019 2:28 PM EST Called pt to reschedule missed 12/06 appts w/ Matthias Green and Matthias Clay. Pt will call back to schedule documented in this encounter Plan of Treatment Upcoming Encounters Date Type Specialty Care Team Description 08/06/2022 Office Visit Plastic Surgery Peña Woodward MD [facility] PLASTIC SURGERY [place] [address] ( josé luis) 08/19/2022 Office Visit Podiatry Tom Titus DPM [place] [address] (Flores ordonez) 09/08/2022 Office Visit Internal Medicine Janay Hay MD [facility] GENERAL INTERNAL MEDICINE [place], [place] [address] (Wo rk) 10/12/2059 Hospital Encounter Surgery Jim Hanley MD [facility] SPINE CENTER [place] [id number] (Flores ordonez) Scheduled Procedures Name Priority Associated [...] on filedocumented in this encounter Care Teams Sheet Metal Mechanic Relationship Specialty Start Date End Date Tom Hay MD PCP - General General Internal Medicine 09/15/18 [facility] GENERAL [place] [address] documented as of this encounter
--- OUTSIDE RECORDS SUMMARY | 2022-07-12 00:49 | XMS_ITS | Encounter Summary ---
:1965 Author Organization [facility] [place] [address] Care Team Providers Name Role Phone Tom Hay MD Primary Care Provider Encounter Details Date Type Department Care Team Description 10/26/2019 Notes Only Internal Medicine at [facility] Nenita Clay, RN [facility] [place] [address] Social History Tobacco Use Types Packs/Day [...] documented as of this encounter Progress Notes Nenita Clay RN - 10/26/2019 4:05 PM EST Diabetes Teaching: Per Request from Attending MD Patient questions and concerns: Had questions about everything about diabetes Had concerns about what can happen to me with diabetes? Teaching Goals and Review: Diabetes understanding, Carb counting, Exercise, Medication review, foot care, eye care, glucose meter review. Review Diabetes Mellitus mechanics/stages: Visual aid used to demonstrate how the action and function of insulin and glucose metabolism in the cells works with diet, exercise and medications. Emmanuelle could not explain diabetes at all. The visual aid was very helpful in explaining DM for her. Review Labs:(BG and A1C) No results for input(s): HA1C in the last 7068 hours. Emmanuelle states that her A1c was 12% somewhere, last DH was a year ago which was 9%. Explained what an A1c was to her so she would understand what it represents. Diet:(Carb Counting, Plate Plan, Portion sizes, label reading/interpretation). Reviewed with visual aids used to show plate portions:1/2 veggies, 1/4 carbs, 1/4 protein that will equal carbs needed permeal/ 3x /day. Carbohydrate counting: Females: 30-45 gms of carbohydrates/meal, with added 15-20 grams of snacks/ 3x /day (if needed). Reviewed how Emmanuelle eats and she states I grew up poor so we ate a lot of pasta dishes ervin they are cheap like Mac n cheese, spaghetti, mac n burger, etc. Emmanuelle now skips breakfast and lunch and will overeat at dinnertime. She states she loves Dr. Linda and will have 2-3 a day. Guerda also drinks a lot of oj and cranberry juice. Once Guerda found out how many CHO's were in each can she figured that is why she is not eating because she is drinking so many CHO's, so she understood that. A good review of CHO's, plate plan and how to read labels was helpful to her. A good majority of this time was spent on diet. Handouts given. Review S&SX of hypo/hyperglycemia: Showed visual aid with examples of S&Sx of both high and low blood sugar affects on a person. Asked if any of these symptoms have been noted: High symptoms: Guerda was shocked when we reviewed these symptoms and she says, Wait is this why I am having all these symptoms, ervin of diabetes, wow! Guerda is having increased thirst, voiding, dry skin, tiredness, extreme hunger, infections that do not heal, and blurry vision. Guerda describes her vision in her left eye ashaving a curtain come down over my eye. (CDE let attending know at this appt with Guerda describing this symptom to her. She states, It started 2 days ago. AUTOMATION SALES MANAGER checked vision-see results. Low symptoms: Guerda has had but not for a long time. She states she used to have them before she was diagnosed with diabetes. She has shaky , sweaty, passed out once, SHOEMAKER, nervous, dizzy. She was unsure how to treat a low-so explained the Rule of 15's-see below. Review Rule of 15: This is treatment for low blood sugars. 15 grams of carbohydrates given quickly (4 oz. of orange juice, 4 glucose tablets, 7 hard candies, 4 oz of soda with sugar, 1 tablespoon Honey, sugar or syrup), wait 15 minutes, check BG level. Repeat as necessary and if continues to call PCP.Finish with a small meal to prevent continued low. Do not over eat to then have a spike in BG. Handout given. Exercise plan: Guerda does like to walk, but does not do a lot at this time. She feels she can start doing more exercises now that she understands how this helps her DM. DM Medications: Reviewed how Humalog works. Guerda states she is taking her Humalog every two hours about 20 units at a time because my glucose levels are always > 500, (mg/dl). Taught Guerda that Humalog should be taken before meals within the half hour to 15 minutes before meal, and no more than 3x/day at typical mealtimes. She understands that she should not be stacking insulin (every 2 hours) now,and she understands normally she would not take this without a meal. Due to skipping meals, she understands that she should be trying to have 3 meals a day so that we can equalize her glucose levels and keep them more steady. Guerda has been on prednisone (60 mg) and has been tapered off for approximately 24-30 hours now. Attending explaining that her glucose levels should be trending down now that she is off the prednisone. Told to continue with 3x/day and using her scale that she was given in [facility] for her Humalog which is as Guerda states: For every increase in 50 I add 2 units. [facility] Sliding Scale for Humalog: Glucose levels Insulin dose Up to 200 mg/dl 6 units 201-250 mg/dl 8 units 251-300 mg/dl 10 units 301-350 12 units 351-400 14 units 401-450 16 units 451-500 18 units > 500 mg/dl 20 units Lantus dose 48 units/night SQ--Reviewed-Lantus -how this insulin works. Bydureon 2 mg/week SQ Discussion about changing to Bydureon BCise due to needle. Guerda does state that she gets nodules thatdo not go away but CDE cannot feel where Guerda states they were. She feels they are sore as well. Possibly the BCise may have a lesser size needle. Showed Guerda an example of this device and she felt comfortable using this. She feels she gets GERD from Bydrueon. Bydureon action and side effects reviewed. She understand that this med works with food and not noted to work without the glucose trigger. Glucose Meter Review/SMBG Levels: Guerda does not presently have a glucose meter. CDE reviewed how to use the One Touch Verio Flex as that is what is available at this time. Guerda is requesting a Freestyle Lite that she knows her insurance covers. That will be pended for attending. Discarding lancets/needles:Did not have time to discuss at this appt. Sick Day Rules: Reviewed if unable to eat solids, make sure that fluids are taken that contain carbohydrates (example-Gatorade: 30 grams of carbs/serving). Continue taking medication as ordered. Did not have time to discuss at this appt. Travel Rules: Did not have time to discuss at this appt. Immunizations: Did not have time to discuss at this appt. Foot Care: Reviewed daily foot checks both bottom and top and between toes, checking for any cracks or infection. Do not walk barefoot. . Proper fitting foot teixeira is important. Guerda states that she has not felt her feet for over 2 years. Emphasized good care of feet and the above. Guerda shown a picture of problems with feet and why she should not be going barefoot. Yearly eye/Dental exams: Did not have time to discuss at this appt. Alcohol/Tobacco use:Did not have time to discuss at this appt. Psych/soc: Did not have time to discuss at this appt. Patient Goals: 1. Exercise: Emmanuelle will try to begin to work towards adding exercise/day (goal 5 days a week) 2. Diet: Emmanuelle will begin to limit CHO's 3. Self care: Emmanuelle is motivated at this time to learn about DM and how to care for herself. Follow-up Plan: 1-CDE will pend Glucose meter, lantus, humalog, bydureon BCise, DM education appt in 4 weeks with attending 2-Attending: eye appt, sign pended orders, f/u in 4 weeks Visit time today: Spent 100 -mins out of 60 minute appt., face to face with Diabetic Teaching documented in this encounter Plan of Treatment Upcoming Encounters Date Type Specialty Care Team Description 08/06/2022 Office Visit Plastic Surgery Peña Woodward MD [facility] PLASTIC SURGERY [place], [place] [address] (Flores ordonez) 08/19/2022 Office Visit Podiatry Tom Titus DPM [place], [place] [address] (Flores ordonez) 09/08/2022 Office Visit Internal Medicine Janay Hay MD [facility] GENERAL INTERNAL MEDICINE [place], [place] [address] (Wo rk) 10/12/2059 Hospital Encounter Surgery Jim Hanley MD [facility] DR SPINE CENTER [place], [place] [address] (Wo rk) Scheduled Procedures Name [...] on filedocumented in this encounter Care Teams Perl Programmer Relationship Specialty Start Date End Date Tom Hay MD PCP - General General Internal Medicine 09/15/18 [facility] GENERAL INTER[place] [address] documented as of this encounter
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
--- OUTSIDE RECORDS SUMMARY | 2022-07-12 00:49 | XMS_ITS | Encounter Summary ---
:1965 Author Organization [facility] Address [facility] [place] [address] Care Team Providers Name Role Phone Tom Hay MD Primary Care Provider Reason for Visit Reason Onset Date Comments Medication Refill 09/12/2019 Encounter Details Date Type Department Care Team Description 09/12/2019 Refill Internal Medicine [place] [facility] Mehreen Anaya CCMA [facility] Kevin [place]añ[place] [address] Social History Tobacco Use Types Packs/Day [...] MD [facility] PLASTIC SURGERY [place], [place] [address] (Wo rk) 08/19/2022 Office Visit Podiatry Tom Titus DPM [place], [place] [address] (Wo rk) 09/08/2022 Office Visit Internal Medicine Janay Hay MD [facility] GENERAL INTERNAL MEDICINE [place], [place] [address] (Wo rk) 10/12/2059 Hospital Encounter Surgery Jim Hanley MD [facility] SPINE CENTER [place], [place] [address] (Wo rk) Scheduled Procedures Name [...] on filedocumented in this encounter Care Teams Table Machine Operator Relationship Specialty Start Date End Date Tom Hay MD PCP - General Internal Medicine 09/15/18 [facility] GENER[place] [address] documented as of this encounter
--- OUTSIDE RECORDS SUMMARY | 2022-07-12 00:49 | XMS_ITS | Encounter Summary ---
:1965 Author Organization [facility] Address [facility] [place] [address] Care Team Providers Name Role Phone Tom Hay MD Primary Care Provider Encounter Details Date Type Department Care Team Description 12/05/2019 Telephone [place] Medicine [place] [facility] [place] Hay MD [facility] [place] [phone] GENERAL INTERNAL MEDICINE [phone] [place], [place] [address] (Wo rk) Social History Tobacco [...] this encounter Miscellaneous Notes Telephone Encounter - Corrie Joseph - 12/05/2019 1:10 PM EST Open in error documented in this encounter Plan of Treatment Upcoming Encounters Date Type Specialty Care Team Description 08/06/2022 Office Visit Plastic Surgery Peña Woodward MD [facility] PLASTIC SURGERY [place] [phone] ([facility]) 08/19/2022 Office Visit Podiatry Tom Titus DPM [place], [place] [address] (Wo rk) 09/08/2022 Office Visit Internal Medicine Janay Hay MD [facility] GENERAL INTERNAL MEDICINE [place], [place] [address] ( rk) 10/12/2059 Hospital Encounter Surgery Jim Hanley MD [facility] SPINE CENTER [place], [place] [address] ( josé luis) Scheduled Procedures Name Priority Associated [...] on filedocumented in this encounter Care Teams Food And Beverage Checker Relationship Specialty Start Date End Date Tom Hay MD PCP - General General Internal Medicine 09/15/18 [facility] [place] [address] documented as of this encounter
--- OUTSIDE RECORDS SUMMARY | 2022-07-12 00:49 | XMS_ITS | Encounter Summary ---
:1965 Author Organization [facility] Address [facility] [address] [place] [id number] Care Team Providers Name Role Phone Tom Hay MD Primary Care Provider Reason for Referral Consultation (Routine) - Closed Specialty Diagnoses / Procedures Referred By Contact Refer red To Contact Ophthalmology Diagnoses Uncontrolled type 2 diabetes mellitus with hyperglycemia Nenita Green MD Jordan, Kelsey L, OD [facility] D [facility] GENERAL INTERNAL [place], [place] [address] [place] [address] Referral ID Status Reason Start Date Expiration Date Visits V isits Requested Authorized [id number] Closed Consult, 10/26/2019 10/25/2020 1 1 Test & Treat Reason for Visit Reason Comments Post Hospital Discharge hyperglicemia Encounter Details Date Type Department Care Team Description 10/26/2019 Office Visit Internal Medicine at Nenita Green Un controlled type 2 diabetes mellitus with hyperglycemia (Primary Dx); DANIEL Flanagan MD Essential hypertension; [facility] Bip olar II disorder; Drive Chronic obstructive pulmonary disease wi th acute exacerbation [place], [place] GENERAL INTERNAL [phone] MEDICINE [phone] [place] [phone] (Wo rk) Social History Tobacco Use Types [...] Sign Reading Time Taken Comments Blood Pressure 139/81 10/26/2019 1:33 PM EST Pulse 96 10/26/2019 1:33 PM EST Temperature - - Respiratory Rate 16 10/26/2019 1:33 PM EST Oxygen Saturation 97% 10/26/2019 1:33 PM EST Inhaled Oxygen Concentration - - Weight 95.3 kg (210 lb) 10/26/2019 1:33 PM EST shoes on Height 167.2 cm (5' 5.83) 10/26/2019 1:33 PM EST Body Mass Index 34.07 10/26/2019 1:33 PM EST documented in this encounter Progress Notes Nenita Green MD - 10/26/2019 1:40 PM EST Subjective: Patient ID: Emmanuelle Bynum is a 54 y.o. female. HPI Chief Complaint Patient presents with ??? Post Hospital Discharge hyperglicemia 54 year old woman here for SDA, hx bipolar 2 , ?schizophrenia, IDDM insulin dependent, smoker with COPD, depression, hypothyroid, HTN, HLD, SEB, migraine, GERD and fibromyalgia, comes in following a month to 6 weeks of very high blood sugars, frequently > 500 ?? Reports had cold and copd flare starting in early September. Chart shows 07/24/2019 ER visit to [facility] for COPD exacerbation. Took prednisone 60 mg daily for 5 days, sxs improved. BS increased however and she stopped her lantus 48 units qhs and started dosing her lispro/humalog every 2 hours based on a sliding scale,sometimes taking up to 20 units at a time and dosing 8-10 times a day.Most recently went to [facility] for another flare on 10/22/2019 and and is here now to follow up hersugars which are again running >500. Last dose of prednisone for this flare was 24 hours ago ?? Also notes nebulizer is broken and she is almost our of nebs, hasnt had neb in a day or so ?? Sugars have been very high , asking for help getting them down ?? Gives her insulin and bydureon into her legs, has always done so but notes having a lot of pain in her legs as a result; scared to inject into her abd; has been on the weekly bydureon for about 8 months ?? Would like to work with a warhead maintenance specialist ?? Cannot tolerate metformin due to gi distress ?? IDDM x 5 years and prior was on orals for 8 years ?? Disabled; lives with a friend who is renting the apartment to her, has lived there for 9 years, having a heat problem; daughter Lizzy lives in [place], Son Deric also in [place] but not a good relationship; mother also in [place] but her does not like me ?? Psychiatrist Dr Monson, [facility] for 8 years prescribes her - prozac 80, alpraz, abilify. She is also on duloxetine 30 but she is unsure why she is on this and who initially ordered Review of Systems Constitutional: Negative for chills and fever. Respiratory: Positive for cough and shortness of breath. Negative for wheezing and stridor. Cardiovascular: Negative for chest pain. Gastrointestinal: Negative. Endocrine: Positive for polydipsia and polyuria. Genitourinary: Negative for dysuria. PHQ9 Questionnaires Data (Clinic and Pt Entered): Today's value PHQ-9 QUESTIONNAIRE (AMB) 10/29/2018 PHQ - 9 Score (Clinic) 9 (Mild Depression) Little interest or pleasure (Clinic) Not at all Down, depressed, hopeless (Clinic) Not at all Trouble sleeping (Clinic) More than half the days Tired or no energy (Clinic) Nearly every day Poor appetite or overeating (Clinic) More than half the days Feeling like a failure (Clinic) Not at all Trouble concentrating (Clinic) More than half the days Moving or speaking slowly (Clinic) Not at all Would be better off (Clinic) Not at all How difficult are the problems (Clinic) Somewhat difficult GAD7 No flowsheet data found. Medications 10/26/19 2513 Medication Sig Taking? amoxicillin-clavulanate (AUGMENTIN) 875-125 mg Tablet Yes DULoxetine DR (CYMBALTA) 30 mg Capsule, Delayed Release(E.C.) Yes AFLURIA QD 2018-,3YR UP,,PF, 60 mcg (15 mcg x 4)/0.5 mL Syringe ADM 0.5ML IM UTD Yes ondansetron ODT (ZOFRAN-ODT) 4 mg Tablet, Rapid Dissolve DISSOLVE 1 T UNDER THE TONGUE Q 6 H PRN Yes albuterol (PROAIR HFA) 90 mcg/actuation HFA Aerosol Inhaler Inhale 2 puffs into the lungs every 4 hours as needed for Wheezing. Use with spacer Yes lancets (FREESTYLE LANCETS) 28 gauge [facility] Dx E11.9 IDD please test 4x/day with lancets Indications: diabetes mellitus Yes blood sugar diagnostic strips Strip Use as instructed to check BG 4 times daily. (Freestyle Lite)DX code E11.9 IDD Yes pen needle, diabetic (NOVOTWIST) 32 gauge x 1/5 Needle 1 each by [facility].(Non- Drug; Combo Route) route4 times daily as needed. Novotwist needle ICD E11.9 NIDD Yes tiotropium (SPIRIVA) 18 mcg Capsule, w/Inhalation Device Inhale 1 capsule into the lungs daily. Yes Clobetasol-Emollient 0.05 % Foam Apply twice daily to worse scalp psoriasis on weekends-only as needed dispense 3 bottles please Yes esomeprazole (NEXIUM) 40 mg Capsule, Delayed Release(E.C.) Take 1 capsule by mouth 2 times daily. Yes amLODIPine (NORVASC) 10 mg Tablet Take 1 tablet by mouth daily. Yes hydroCHLOROthiazide (HYDRODIURIL) 50 mg Tablet Take 1 tablet by mouth daily. Yes ondansetron (ZOFRAN) 4 mg Tablet Take 1 tablet by mouth every 8 hours as needed for Nausea. Yes levothyroxine (SYNTHROID) 150 mcg Tablet Take 2 tablets by mouth daily. Take in addition to the 25mcg to equal 325mcg Yes levothyroxine (SYNTHROID) 25 mcg Tablet Take 1 tablet by mouth daily. Yes BREO ELLIPTA 200-25 mcg/dose Disk with Device Inhale 1 puff into the lungs daily. Yes glipiZIDE (GLUCOTROL) 5 mg Tablet TAKE 1 TABLET BY MOUTH TWICE DAILY BEFORE MEALS Yes vitamin with [id number] Tablet Take 1 tablet by mouth daily. Yes atorvastatin (LIPITOR) 20 mg Tablet Take 1 tablet by mouth daily. Yes betamethasone-calcipotriene (TACLONEX SCALP) 0.005-0.064 % Suspension Apply 3 times a week to scalp for psoriasis as needed. Yes VITAMIN D 1,000 unit Tablet Take 2 tablets by mouth daily. Yes cycloSPORINE (RESTASIS) 0.05 % Dropperette Place 1 drop into both eyes every 12 hours. Yes fluticasone (VERAMYST) 27.5 mcg/actuation [place], Suspension 2 sprays by Nasal route daily. Indications: Allergic Rhinitis Yes ALPRAZolam (XANAX) 1 mg tablet Take 1 mg by mouth 3 times daily as needed. Yes FLUoxetine (PROZAC) 40 mg capsule Take 80 mg by mouth daily. Yes aripiprazole (ABILIFY) 30 mg tablet Take 30 mg by mouth daily. Yes clotrimazole (MYCELEX) 10 mg Gary DIS 1 MOLLY PO TID no estradiol (ESTRACE) 0.01 % (0.1 mg/gram) Cream no fluconazole (DIFLUCAN) 200 mg Tablet no nystatin (MYCOSTATIN) 100,000 unit/mL Suspension SAS 5 ML PO QID PRF THRUSH no predniSONE (DELTASONE) 10 mg Tablet TAKE 6 TABLES AND REDUCE BY 1/2 EVERY DAY. 6--5.5--5--4.5--4--3.5--3--2.5--2--1.5--1--0.5 no predniSONE (DELTASONE) 20 mg Tablet no ipratropium-albuterol (DUONEB) 0.5 mg-3 mg(2.5 mg base)/3 mL Solution for Nebulization Take 0.5 mg by nebulization 4 times daily. exenatide microspheres 2 mg/0.85 mL Auto-Injector Inject 2 mg subcutaneously every 7 days. yes insulin glargine (LANTUS SOLOSTAR U-100 INSULIN) 100 unit/mL (3 mL) pen Inject 48 Units subcutaneously nightly. no insulin lispro (HUMALOG KWIKPEN) Insulin Pen Inject 4-30 Units subcutaneously 3 times daily (with meals). Taking q 2 h, see hpi BD ALCOHOL SWABS Pads, Medicated 1 each 4 times daily. montelukast (SINGULAIR) 10 mg Tablet Take 1 tablet by mouth nightly. naratriptan (AMERGE) 2.5 mg Tablet Take 1 tablet by mouth as needed for Migraine. if returns or doesnot resolve, may repeat once after 4 hours methocarbamol (ROBAXIN) 750 mg Tablet Take 1 tablet by mouth 4 times daily. ibuprofen (IBU) 800 mg Tablet Take 1 tablet by mouth every 8 hours as needed for Pain. Patient not taking: Reported on 10/26/2019 metroNIDAZOLE (METROCREAM) 0.75 % Cream Apply topically 2 times daily. varenicline (CHANTIX) 1 mg Tablet Take 1 tablet by mouth daily. Patient not taking: Reported on 10/26/2019 meclizine (ANTIVERT) 25 mg Tablet TAKE 1 TABLET BY MOUTH THREE TIMES DAILY NEEDED cholecalciferol, Vitamin D3, 50,000 unit Capsule Take 1 capsule by mouth once a week. Patient not taking: Reported on 10/26/2019 valACYclovir (VALTREX) 1 gram Tablet Take 1 tablet by mouth 2 times daily. Patient not taking: Reported on 10/26/2019 promethazine (PHENERGAN) 25 mg tablet Take 25 mg by mouth every 6 hours as needed. Allergies Allergen Reactions ??? Clonidine (Pf) Other (See Comments) stenens johnsons syndrome ??? Codeine Itching and Nausea Only ??? Metformin ??? Methadone Nausea And Vomiting Objective: Physical Exam Constitutional: Appears fatigued HENT: Right Ear: Tympanic membrane normal. Left Ear: Tympanic membrane normal. Nose: Nose normal. Mouth/Throat: Oropharynx is clear and moist. Eyes: Conjunctivae are normal. Cardiovascular: Normal rate and regular rhythm. Pulmonary/Chest: Moving air but + rhonchi and wheezes throughout, improved after neb Abdominal: Soft. Bowel sounds are normal. Lymphadenopathy: She has no cervical adenopathy. BP 139/81 (BP Location (NBP): Left arm, Patient Position: Sitting, BP Cuff Sizes: Adult (25-34 cm)) Pulse 96 Resp 16 Ht 167.2 cm (5' 5.83) Wt 95.3 kg (210 lb) Comment: shoes on SpO2 97% BMI 34.07 kg/m?? BP Readings from Last 3 Encounters: 10/26/19 139/81 03/09/19 (!) 150/92 10/29/18 (!) 127/92 Wt Readings from Last 3 Encounters: 10/26/19 95.3 kg (210 lb) 03/09/19 88 kg (194 lb) 10/29/18 97.5 kg (215 lb) U/A: +++glucose but ketones negative Assessment and Plan: Emmanuelle was seen today for post hospital discharge. Diagnoses and all orders for this visit: Uncontrolled type 2 diabetes mellitus with hyperglycemia - U Albumin/Cre Ratio; Future; Expected date: 10/26/2019 - glumeter - POCT Fingerstick Glucose - Hemoglobin A1c; Future; Expected date: 10/26/2019 - Urinalysis with reflex Culture; Future; Expected date: 10/26/2019 - Referral to Ophthalmology - Restart lantus 48 units qhs, re-establish qid lispro injections - Worked with Catalina Clay today Essential hypertension - Controlled on amlodipine 10, HCTZ 50; does not look like she has been on an MANJU or ARB in the past Bipolar II disorder - Outside provider - She will discuss duloxetine with her provider Chronic obstructive pulmonary disease with acute exacerbation - Finish Augmentin, start nebs, continue spiriva and Breo now that she is off the oral pred - albuterol (PROAIR HFA) 90 mcg/actuation HFA Aerosol Inhaler; Inhale 2 puffs into the lungs every 4hours as needed for Wheezing. Use with spacer - Nebulizer - ipratropium-albuterol (DUONEB) 0.5 mg-3 mg(2.5 mg base)/3 mL Solution for Nebulization; Take 0.5 mg by nebulization 4 times daily. - ipratropium-albuterol (DUONEB) 0.5 mg-3 mg(2.5 mg base)/3 mL nebulizer solution 3 mL Future Appointments Date Time Provider Department Center 12/06/2019 8:40 AM Nenita Green MD [facility] 12/06/2019 9:00 AM Nenita Clay RN [facility] 12/21/2019 3:45 PM Jacob Blair III, MD [facility] documented in this encounter Plan of Treatment Upcoming Encounters Date Type Specialty Care Team Description 08/06/2022 Office Visit Plastic Surgery Peña Woodward MD [facility] PLASTIC SURGERY [place], [place] [address] (Wo rk) 08/19/2022 Office Visit Podiatry Tom Titus DPM [place], [place] [address] (Wo rk) 09/08/2022 Office Visit Internal Medicine Janay Hay MD [facility] GENERAL INTERNAL MEDICINE [place], [place] [address] (Wo rk) 10/12/2059 Hospital Encounter Surgery Jim Hanley MD [facility] SPINE CENTER [place], [place] [address] (Wo rk) Scheduled Procedures Name Priority Associated [...] Order S chedule Referral to Outpatient Routine Uncontrolled type 2 Ordered: Ophthalmology Referral diabetes mellitus 0 with hyperglycemia documented as of this encounter Procedures Procedure Name Priority Date/Time Associated Diagnosis Comme nts HC MICROALBUMIN, Routine 10/26/2019 2:02 PM Uncontrolled type 2 Results for this URINE EST diabetes mellitus procedure are in with hyperglycemia the resul ts section. URINALYSIS WITH STAT 10/26/2019 2:02 PM Uncontrolled type 2 Results for this REFLEX CULTURE EST diabetes mellitus procedur e are in with hyperglycemia the resul ts section. POCT FINGERSTICK Routine 10/26/2019 1:20 PM Uncontrolled type 2 Results for this GLUCOSE EST diabetes mellitus procedure are in with hyperglycemia the resul ts section. documented in this encounter Results (ABNORMAL) Urinalysis with reflex Culture (10/26/2019 2:02 PM EST) [facility] Method Time Signature Glucose UA >=1000 Negative [facility] (Critical) mg/dL [facility] Comment: Urinalysis result NOT critical without a combination of Glucose greater than or equal to 500 mg/dL AND Ketones greate r than or equal to 80 mg/dL Protein UA Negative Negative mg/dL [facility] Bilirubin UA Negative Negative mg/dL [facility] Comment: Clinical correlation required for positi ve Urine Bilirubin results as false positive may occur with some drugs and d rug related products. If a false positive is suspected a serum total bili nielsen should be considered if clinically indicated. Urobilinogen UA Normal Normal mg/dL [facility] pH UA 5.5 5.0 - 8.0 [facility] Blood UA Negative Negative mg/dL [facility] Ketones UA Negative Negative mg/dL [facility] Nitrite UA Negative Negative [facility] Leukocytes UA Negative Negative [facility] Appearance UA Clear Clear [facility] Spec Offerle UA >=1.030 1.002 - 1.030 [facility] Color UA Yellow Yellow [facility] Culture Reflexed No [facility] Specimen (Source) Anatomical Collection Method Collection Time Re ceived Time Location / / Volume Laterality Urine specimen 10/26/2019 2:02 10/26/2019 2:47 obtained by clean PM EST PM EST catch procedure (specimen) Resulting Agency Comment Spec In Lab Nenita Green MD URINE ORDERABLES Performing Organization Address City/State/[place] [address] U Albumin/Cre Ratio (10/26/2019 2:02 PM EST) [facility] Method Time Signature Alb/Cr Ratio, Not Calculated 0 - 29 [facility] Random mcg/mg Cr [facility] Comment: Reference Ranges: <30 mcg/mg: Normal [...] 362 U Albumin Conc, Random <3.0 mg/L [facility] U Creatinine 26 mg/dL [facility] Specimen Anatomical Collection Method Collection Time Receive d Time (Source) Location / / Volume Laterality Urine specimen 10/26/2019 2:02 PM 020 2:48 (specimen) EST PM EST Resulting Agency Comment Spec In Lab Nenita Green MD URINE ORDERABLES Performing Organization Address City/State/[place] [address] (ABNORMAL) POCT Fingerstick Glucose (10/26/2019 1:20 PM EST) P athologist Signature POC Glucose 503 (A) 60 - 199 mg/dl Specimen (Source) Anatomical Collection Method Collection Time Re ceived Time Location / / Volume Laterality 10/26/2019 1:20 PM EST Nenita Green MD POINT OF CARE TEST ORDERABLE S documented in this encounter Visit Diagnoses Diagnosis Uncontrolled type 2 diabetes mellitus wi th hyperglycemia - Primary Essential hypertension Unspecified essential hypertension Bipolar II disorder Other bipolar disorders Chronic obstructive pulmonary disease wi th acute exacerbation Obstructive chronic bronchitis with exac erbation documented in this encounter Administered Medications Inactive Administered Medications - up to 3 most recent administrations Medication Order MAR Action Action Date Dose Rate Site ipratropium-albuterol (DUONEB) 0.5 Given 10/26/2019 2:24 PM EST 3 mLs mg-3 mg(2.5 mg base)/3 mL nebulizer solution 3 mL 3 mL, Nebulization, ONCE, 1 dose, On Thu10/26/19 at 1430, Routine documented in this encounter Care Teams Latex Foam Worker Relationship Specialty Start Date End Date Tom Hay MD PCP - General General Internal Medicine 09/15/18 [facility] [place] [address] documented as of this encounter
--- OUTSIDE RECORDS SUMMARY | 2022-07-12 00:49 | XMS_ITS | Encounter Summary ---
:1965 Author Organization [facility] Address [facility] [place] [address] Care Team Providers Name Role Phone Tom Hay MD Primary Care Provider Reason for Visit Reason Onset Date Comments Medication Refill 09/12/2019 Encounter Details Date Type Department Care Team Description 09/12/2019 Refill Internal Medicine at [facility] Mehreen Anaya CCMA [facility] Kevin [address] [phone] Social History Tobacco Use Types Packs/Day [...] MD [facility] PLASTIC SURGERY [place], [place] [address] (Wo rk) 08/19/2022 Office Visit Podiatry Tom Titus DPM [place], [place] [address] (Wo rk) 09/08/2022 Office Visit Internal Medicine Janay Hay MD [facility] GENERAL INTERNAL MEDICINE [place], [place] [address] (Wo rk) 10/12/2059 Hospital Encounter Surgery Jim Hanley MD [facility] SPINE CENTER [place], [place] [address] (Wo rk) Scheduled Procedures [...] filedocumented in this encounter Care Teams Director Industrial Relationship Specialty Start Date End Date Tom Hay MD PCP - General Internal Medicine 09/15/[address] [facility] GENERAL [place] [address] documented as of this encounter
--- OUTSIDE RECORDS SUMMARY | 2022-07-12 00:49 | XMS_ITS | Encounter Summary ---
:1965 Author Organization [facility] Address [facility] [place] [address] Care Team Providers Name Role Phone Tom Hay MD Primary Care Provider Reason for Visit Reason Onset Date Comments Medication Refill 09/06/2019 Encounter Details Date Type Department Care Team Description 09/06/2019 Refill Internal Medicine at [facility] Lata Souza [facility] Kevin [address]añ[place] [phone] Social History Tobacco Use Types Packs/Day [...] Woodward MD [facility] PLASTIC SURGERY [place], [place] [address] (Wo rk) 08/19/2022 Office Visit Podiatry Tom Titus DPM [place], [place] [address] (Wo rk) 09/08/2022 Office Visit Internal Medicine Janay Hay MD [facility] GENERAL INTERNAL MEDICINE [place], [place] [address] (Wo rk) 10/12/2059 Hospital Encounter Surgery Jim Hanley MD [facility] SPINE CENTER [place], [place] [address] (Wo rk) Scheduled Procedures Name [...] on filedocumented in this encounter Care Teams Spinneret Person Relationship Specialty Start Date End Date Tom Hay MD PCP - General Internal Medicine 09/15/18 [facility] [place] [address] documented as of this encounter
--- OUTSIDE RECORDS SUMMARY | 2022-07-12 00:49 | XMS_ITS | Encounter Summary ---
:1965 Author Organization [facility] [place] [address] Care Team Providers Name Role Phone Tom Hay MD Primary Care Provider Reason for Visit Reason Onset Date Comments Medication Refill 10/26/2019 Encounter Details Date Type Department Care Team Description 10/26/2019 Refill Internal Medicine at [facility] [place] [phone] Social History Tobacco Use Types Packs/Day [...] Office Visit Plastic Surgery Peña Woodward MD [facility] PLASTIC SURGERY [place], [place] [address] (Wo rk) 08/19/2022 Office Visit Podiatry Tom Titus DPM [place], [place] [address] (Wo rk) 09/08/2022 Office Visit Internal Medicine Janay Hay MD [facility] GENERAL INTERNAL MEDICINE [place], [place] [address] (Wo rk) 10/12/2059 Hospital Encounter Surgery Jim Hanley MD [facility] SPINE CENTER [place], [place] [address] (Wo rk) Scheduled Procedures Name [...] on filedocumented in this encounter Care Teams Carbider Relationship Specialty Start Date End Date Tom Hay MD PCP - General Woods Internal Medicine 09/15/18 [facility] [place] [address] documented as of this encounter
--- OUTSIDE RECORDS SUMMARY | 2022-07-12 00:49 | XMS_ITS | Encounter Summary ---
:1965 Author Organization [employer] [place] [address] Care Team Providers Name Role Phone Tom Hay MD Primary Care Provider Reason for Visit Reason Onset Date Comments Medication Refill 11/07/2019 Encounter Details Date Type Department Care Team Description 11/07/2019 [place] [facility] [place] [address] Social History Tobacco Use Types Packs/Day [...] MD [facility] PLASTIC SURGERY [place], [place] [address] (Wo rk) 08/19/2022 Office Visit Podiatry Tom Titus DPM [place], [place] [address] (Wo rk) 09/08/2022 Office Visit Internal Medicine Janay Hay MD [facility] GENERAL INTERNAL MEDICINE [place], [place] [address] (Wo rk) 10/12/2059 Hospital Encounter Surgery Jim Hanley MD [facility] SPINE CENTER [place], [place] [address] (Wo rk) Scheduled Procedures Name [...] on filedocumented in this encounter Care Teams Ppap Coordinator Relationship Specialty Start Date End Date Tom Hay MD PCP - General Woods Internal Medicine 09/15/18 [facility] [place] [address] documented as of this encounter
--- OUTSIDE RECORDS SUMMARY | 2022-07-12 00:49 | XMS_ITS | Encounter Summary ---
:1965 Author Organization [facility] [address] Care Team Providers Name Role Phone Tom Hay MD Primary Care Provider Encounter Details Date Type Department Care Team Description 11/02/2019 Telephone Internal Medicine at [facility] Nenita Clay, RN [facility] [place] [address] Social History Tobacco Use Types Packs/Day [...] this encounter Miscellaneous Notes Telephone Encounter - Alfa Erwin - 11/03/2019 1:24 PM EST Patient called stating that she is returning a phone call and that her insurance will cover the Qzempic Please call to further discuss Telephone Encounter - Nenita Clay RN - 11/02/2019 3:19 PM EST Trying to contact Emmanuelle Bynum for f/u DM education/SMBG levels. No answer. Unable to leave a message due to voicemail box is not set up. documented in this encounter Plan of Treatment Upcoming Encounters Date Type Specialty Care Team Description 08/06/2022 Office Visit Plastic Surgery Peña Woodward MD [facility] PLASTIC SURGERY [place], [place] [address] (Wo rk) 08/19/2022 Office Visit Podiatry Tom Titus DPM [place], [place] 0375 (Wo rk) 09/08/2022 Office Visit Internal Medicine Janay Hay MD [facility] GENERAL INTERNAL MEDICINE [place], [place] [address] (Wo rk) 10/12/2059 Hospital Encounter Surgery Jim Hanley MD [facility] SPINE CENTER [place], [place] [address] (Wo rk) Scheduled Procedures Name [...] on filedocumented in this encounter Care Teams Prototype Deicer Assembler Relationship Specialty Start Date End Date Tom Hay MD PCP - General General Internal Medicine 09/15/18 [facility] GENERAL [place] [address] documented as of this encounter
--- OUTSIDE RECORDS SUMMARY | 2022-07-12 00:49 | XMS_ITS | Encounter Summary ---
:1965 Author Organization [facility] Address [facility] [place] [address] Care Team Providers Name Role Phone Tom Hay MD Primary Care Provider Reason for Visit Reason Onset Date Comments Questions 12/05/2019 Encounter Details Date Type Department Care Team Description 12/05/2019 Telephone [place] [facility] Joseph Questions [facility] [place] [address] Social History Tobacco Use Types Packs/Day [...] Telephone Encounter - Corrie Joseph - 12/05/2019 1:13 PM EST Message: Pharmacy is calling stating they are wondering if the patient is still on Amlodipine. Pharmacy is also wondering if Emmanuelle is going to continue with the Semaglutide because she has finished the 1-month trial. Pharmacy stated if she is continuing this they need a new prescription sent to them. Wilder from pharmacy is also wondering if they can get an updated med list for the patient for 2019 Ask caller their first and last name and relationship to the patient: Pharmacy Best time to call back: any Ok to leave a message: yes Ok to send - message: n Offered Appointment: MA/Nurse/[place] contacted via: Message: x Call: Pager: documented in this encounter Plan of Treatment Upcoming Encounters Date Type Specialty Care Team Description 08/06/2022 Office Visit Plastic Surgery Peña Woodward MD [facility] PLASTIC SURGERY [place], [place] [address] (Flores ordonez) 08/19/2022 Office Visit Podiatry Tom Titus DPM [place], [place] [address] (Flores ordonez) 09/08/2022 Office Visit Internal Medicine Janay Hay MD [facility] GENERAL INTERNAL MEDICINE [place], [place] [address] (Wo rk) 10/12/2059 Hospital Encounter Surgery Jim Hanley MD [facility] DR SPINE CENTER [place], [place] [address] (Wo rk) Scheduled Procedures Name [...] on filedocumented in this encounter Care Teams Sole Stapler Welt Relationship Specialty Start Date End Date Tom Hay MD PCP - General General Internal Medicine 09/15/[address] [facility] [place] [address] documented as of this encounter
--- OUTSIDE RECORDS SUMMARY | 2022-07-12 00:49 | XMS_ITS | Encounter Summary ---
:1965 Author Organization [facility] [place] [address] Care Team Providers Name Role Phone Tom Hay MD Primary Care Provider Reason for Visit Reason Onset Date Comments Questions 11/07/2019 prescription issues Encounter Details Date Type Department Care Team Description 11/07/2019 Telephone Internal Medicine at Corrie Joseph (prescription [facility] issues) [place] [address] Social History Tobacco Use Types Packs/Day [...] this encounter Miscellaneous Notes Telephone Encounter - Elsie Daniel RN - 11/07/2019 2:49 PM EST TC with patient to make sure she understands that ozembic is to be taken instead of bydureon and that she still needs to be on insulin. Pt verbalized understanding. She knows that she will use ozembic instead of bydureon and she will continue with insulin. Bydureon (exanatide) removed from medication list accordingly. Telephone Encounter - Elsie Daniel RN - 11/07/2019 11:37 AM EST TC with patient to clarify her prescription needs. - Pt stated that she found out from her insurance that ozempic (diabetic medications; weekly injection) is covered so she would like to obtain a prescription for it. - She has dry eye and needs a restasis refill; her eye doctor is no longer there to prescribe it. Medication has been effective in reducing eye dryness. - She needs the Valtrex name brand because the generic that was sent is not working. - The glipizide prescription has to be sent to [facility] instead of [facility]. - For the past 2 weeks she has had thrush; her tongue is white and painful; she would like to request a prescription for Nystatin. New prescriptions prepared per pt's request; pended for PCP's review/signature. Telephone Encounter - Corrie Joseph - 11/07/2019 8:39 AM EST Message: Gokul from [facility] is calling stating the patient wants to be prescribed 3 medications. Those medications are Nystatin Suspension for oral thrush, Restasis, and Glipizide. Gokul also stated the Osepick is covered by the insurance if the doctor wants to order it, and the patient stated to him she can only take the name brand for the Valtrex. Gokul stated if this is the case with the Valtrex there needs to be a not stating name brand only Please call Gokul back with any questions at [phone] Ask caller their first and last name and relationship to the patient: Gokul [facility] Best time to call back: Any Ok to leave a message: Y Ok to send - message: n Offered Appointment: n MA/Nurse/[place] contacted via: Message: y Call: n Pager: n documented in this encounter Plan of Treatment Upcoming Encounters Date Type Specialty Care Team Description 08/06/2022 Office Visit Plastic Surgery Peña Woodward MD [facility] PLASTIC SURGERY [place], [place] [address] (Wo rk) 08/19/2022 Office Visit Podiatry Tom Titus DPM [place], [place] [address] (Wo rk) 09/08/2022 Office Visit Internal Medicine Janay Hay MD [facility] GENERAL INTERNAL MEDICINE [place], [place] [address] (Wo rk) 10/12/2059 Hospital Encounter Surgery Jim Hanley MD [facility] SPINE CENTER [place], [place] [address] (Wo rk) Scheduled Procedures Name [...] as of this encounter Visit Diagnoses Diagnosis Bilateral dry eyes Tear film insufficiency, unspecified Uncontrolled type 2 diabetes mellitus wi th hyperglycemia Thrush Candidiasis of mouth documented in this encounter Care Teams Maintenance And Operations Supervisor Relationship Specialty Start Date End Date Tom Hay MD PCP - General General Internal Medicine 09/15/18 [facility] [place] [address] documented as of this encounter
--- OUTSIDE RECORDS SUMMARY | 2022-07-12 00:49 | XMS_ITS | Encounter Summary ---
:1965 Author Organization [facility] [place] [address] Care Team Providers Name Role Phone Tom Hay MD Primary Care Provider Reason for Visit Reason Onset Date Comments Medication Refill 11/07/2019 Encounter Details Date Type Department Care Team Description 11/07/2019 Refill Internal Medicine at [facility] Nenita Clay [place] [address] Social History Tobacco Use Types Packs/Day [...] Office Visit Plastic Surgery Peña Woodward MD [facility] PLASTIC SURGERY [place], [place] [address] (Wo rk) 08/19/2022 Office Visit Podiatry Tom Titus DPM [place], [place] [address] (Wo rk) 09/08/2022 Office Visit Internal Medicine Janay Hay MD [facility] GENERAL INTERNAL MEDICINE [place], [place] [address] (Wo rk) 10/12/2059 Hospital Encounter Surgery Jim Hanley MD [facility] SPINE CENTER [place], [place] [address] (Wo rk) Scheduled Procedures Name [...] filedocumented in this encounter Care Teams Director Report Relationship Specialty Start Date End Date Tom Hay MD PCP - General Woods Internal Medicine 09/15/18 [facility] GENERAL [place] [address] documented as of this encounter
--- OUTSIDE RECORDS SUMMARY | 2022-07-12 00:49 | XMS_ITS | Encounter Summary ---
:1965 Author Organization [facility] [place] [address] Care Team Providers Name Role Phone Tom Hay MD Primary Care Provider Reason for Visit Reason Onset Date Comments Follow-up 11/02/2019 [facility] TC Encounter Details Date Type Department Care Team Description 11/02/2019 Telephone Internal Medicine at [facility], Elsie Ross RN [place] ([place] TC) [place] [address] Social History Tobacco Use Types Packs/Day [...] this encounter Miscellaneous Notes Telephone Encounter - Anastacia Izquierdo RN - 11/03/2019 8:26 AM EST TC to Emmanuelle this morning to follow up on yesterday's call and her requests to Dr. Hay. Emmanuelle starts the conversation by stating that her fasting BG was 194 this morning. Advised, per Dr. Hay, that Ompezic may not be covered by insurance, and he does recommend ordering smaller needles; she is going to check with her insurance company about this. Informed that we will send order for Trelegy to her pharmacy and discontinue the Breo prescription; and that an order has been pended for her new nebulizer and as soon as it is signed by the MD it willbe faxed to [place] Jay Handley states appreciation for phone call and information and will get back to us regarding whether her insurance will cover Ompezic. Note routed to Dr. Hay Telephone Encounter - Anastacia Izquierdo RN - 11/02/2019 1:55 PM EST Returning Emmanuelle's call regarding follow up from [facility] TC note and instructions per Dr. Hay: Is she still on prednisone? Why? We should try to get that dose down. Would titrate up lantus to fasting 100-150- go up 1 unit/day until FBS<150- then hold that dose. Was evaluated at [facility] ED last evening was given IV fluids and IV Insulin to get her BG down to 380s and then released her to home. Fasting BG this morning was 489 Last checked BG around noon it was in the 400s, she took 16 units of humalog at that time Is no longer taking prednisone, this was discontinued at her visit with Dr. Green. Reports increased thirst, I can't drink enough, States is urinating constantly; vision problems. Wants to let Dr. Hay know the following 3 items: 1) That she would like to stop using the Jett. Insulin (lantus) because the needles are too big and she continues to get increased stomach acid and nausea with use of - would like to switch to Ozempic if possible 2) Would like to switch from Breo to Trilogy - she used her friend's Trilogy for 3 days and the results were much better than with Breo (states Breo does not help at all). 3).Needs new Nebulizer ordered from [employer] or other [employer] company as the pharmacy no longer supplies these. Current Lantus dose is 48 units at bedtime. Instructed patient per above titration instructions and she is able to repeat directions back stating she will increase lantus by 1 unit nightly until FBS <150. Will start with 49 units tonight at bedtime. Telephone Encounter - uJliet Oliva - 11/02/2019 10:39 AM EST Pt is returning call please call her back at [phone] Telephone Encounter - Elsie Daniel RN - 11/02/2019 10:29 AM EST Attempt to reach patient to follow-up on her [facility] TC last night regarding elevated blood sugars, obtain an update, and assess need for an office visit. Voicebox is not set up; unable to leave a message. Telephone Encounter - Elsie Daniel, RN - 11/02/2019 10:29 AM EST ----- Message from Dang Luther sent at 11/02/2019 9:14 AM EST ----- Regarding: [facility] TRiage Note [facility] Triage Note scanned documented in this encounter Plan of Treatment Upcoming Encounters Date Type Specialty Care Team Description 08/06/2022 Office Visit Plastic Surgery Peña Woodward MD [facility] PLASTIC SURGERY [place], [place] [address] (Wo rk) 08/19/2022 Office Visit Podiatry Tom Titus DPM [place], [place] [address] (Wo rk) 09/08/2022 Office Visit Internal Medicine Janay Hay MD [facility] GENERAL INTERNAL MEDICINE [place], [place] [address] (Wo rk) 10/12/2059 Hospital Encounter Surgery Jim Hanley MD [facility] SPINE CENTER [place], [place] [address] (Wo rk) Scheduled Procedures Name [...] obstructive pulmonary disease wi th acute exacerbation - Primary Obstructive chronic bronchitis with exac erbation documented in this encounter Care Teams Campus Ambassador Relationship Specialty Start Date End Date Tom Hay MD PCP - General General Internal Medicine 09/15/[address] [facility] [place] [address] documented as of this encounter
--- OUTSIDE RECORDS SUMMARY | 2022-07-12 00:49 | XMS_ITS | Encounter Summary ---
:1965 Author Organization [place] [address] Care Team Providers Name Role Phone Tom Hay MD Primary Care Provider Encounter Details Date Type Department Care Team Description 12/06/2019 Telephone Internal Medicine at [facility] [place] Nenita Clay, RN [facility] [place] [address] Social History Tobacco Use Types Packs/Day [...] Telephone Encounter - Nenita Clay RN - 12/06/2019 9:48 AM EST Trying to contact Emmanuelle Bynum due to NO SHOW. No answer. No voicemail set up on her phone-unable to leave a message documented in this encounter Plan of Treatment Upcoming Encounters Date Type Specialty Care Team Description 08/06/2022 Office Visit Plastic Surgery Peña Woodward MD [facility] PLASTIC SURGERY [place] [address] ( josé luis) 08/19/2022 Office Visit Podiatry Tom Titus DPM [place] [address] (Flores ordonez) 09/08/2022 Office Visit Internal Medicine Janay Hay MD [facility] GENERAL INTERNAL MEDICINE [place], [place] [address] ( josé luis) 10/12/2059 Hospital Encounter Surgery Jim Hanley MD [facility] SPINE CENTER [place], [place] [address] (Flores ordonez) Scheduled Procedures Name [...] on filedocumented in this encounter Care Teams Operating Engineer Relationship Specialty Start Date End Date Tom Hay MD PCP - General General Internal Medicine 09/15/18 [facility] [place] [address] documented as of this encounter
--- OUTSIDE RECORDS SUMMARY | 2022-07-12 00:49 | XMS_ITS | Encounter Summary ---
:1965 Author Organization [facility] [place] [address] Care Team Providers Name Role Phone Tom Hay MD Primary Care Provider Reason for Visit Reason Onset Date Comments Medication Problem 10/31/2019 Encounter Details Date Type Department Care Team Description 10/31/2019 Refill Internal Medicine at Juliet Oliva Chronic obstructive pulmonary disease with acute exacerbation; [facility] Controlled type 2 diabetes m ellitus without complication, unspecified whether terminal [place] [address] Social History Tobacco Use Types Packs/Day [...] Notes Telephone Encounter - Juliet Oliva - 10/31/2019 11:01 AM EST Pharmacy or caller: [facility] pharmacy Medication: lbuterol (PROAIR HFA) 90 mcg/actuation HFA Aerosol Inhaler ipratropium-albuterol (DUONEB) 0.5 mg-3 mg(2.5 mg base)/3 mL Solution for Nebulization exenatide microspheres 2 mg/0.85 mL Auto-Injector blood-glucose meter (FREESTYLE) Kit insulin glargine (LANTUS SOLOSTAR U-100 INSULIN) 100 unit/mL (3 mL) pen Message: pt would like these to be cancelled with Danica and sent to [facility] in [facility] documented in this encounter Plan of Treatment Upcoming Encounters Date Type Specialty Care Team Description 08/06/2022 Office Visit Plastic Surgery Peña Woodward MD [facility] PLASTIC SURGERY [place], [place] [address] (Wo rk) 08/19/2022 Office Visit Podiatry Tom Titus DPM [place], [place] [address] (Wo rk) 09/08/2022 Office Visit Internal Medicine Janay Hay MD [facility] GENERAL INTERNAL MEDICINE [place], [place] [address] ([facility]) 10/12/2059 Hospital Encounter Surgery Jim Hanley MD [facility] SPINE CENTER [place], [place] [address] ([facility]) Scheduled Procedures Name Priority Associated Diagnoses Date/Time [...] exacerbation Obstructive chronic bronchitis with exac erbation Controlled type 2 diabetes mellitus with out complication, unspecified whether terminal computer operator insulin use documented in this encounter Care Teams Culinary Arts Instructor Relationship Specialty Start Date End Date Tom Hay MD PCP - General General Internal Medicine 09/15/18 [facility] GENERAL [place] [address] documented as of this encounter
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
--- OUTSIDE RECORDS SUMMARY | 2022-07-12 00:49 | XMS_ITS | Encounter Summary ---
:1965 Author Organization [facility] Address [facility] [place] [address] Care Team Providers Name Role Phone Tom Hay MD Primary Care Provider Reason for Visit Reason Onset Date Comments Medication Refill 11/07/2019 Encounter Details Date Type Department Care Team Description 11/07/2019 Refill Internal Medicine at [facility] [facility] [place] Mehreen Anaya CCMA [facility] Kevin castañ[place] [address] Social History Tobacco Use Types Packs/Day [...] MD [facility] PLASTIC SURGERY [place], [place] [address] (Wo rk) 08/19/2022 Office Visit Podiatry Tom Titus DPM [place], [place] [address] (Wo rk) 09/08/2022 Office Visit Internal Medicine Janay Hay MD [facility] GENERAL INTERNAL MEDICINE [place], [place] [address] (Wo rk) 10/12/2059 Hospital Encounter Surgery Jim Hanley MD [facility] SPINE CENTER [place], [place] [address] (Wo rk) Scheduled Procedures Name [...] on filedocumented in this encounter Care Teams Informatics Analyst Relationship Specialty Start Date End Date Tom Hay MD PCP - General Internal Medicine 09/15/18 [facility] GENERAL [place] [address] documented as of this encounter
--- OUTSIDE RECORDS SUMMARY | 2022-07-12 00:49 | XMS_ITS | Encounter Summary ---
:1965 Author Organization [facility] [place] [address] Care Team Providers Name Role Phone Tom aHy MD Primary Care Provider Reason for Visit Reason Onset Date Comments Medication Refill 10/31/2019 Encounter Details Date Type Department Care Team Description 10/31/2019 Refill Internal Medicine at [facility] [place] [place] Juliet Oliva [facility] Kevin castañ[place] [address] Social History Tobacco Use Types Packs/Day [...] Office Visit Plastic Surgery Peña Woodward MD [facility] PLASTIC SURGERY [place], [place] [address] (Wo rk) 08/19/2022 Office Visit Podiatry Tom Titus DPM [place], [place] 0375 (Wo rk) 09/08/2022 Office Visit Internal Medicine Janay Hay MD [facility] GENERAL INTERNAL MEDICINE [place], [place] [address] (Wo rk) 10/12/2059 Hospital Encounter Surgery Jim Hanley MD [facility] SPINE CENTER [place], [place] [address] (Wo rk) Scheduled Procedures Name [...] on filedocumented in this encounter Care Teams Paraprofessional Education Assistant Relationship Specialty Start Date End Date Tom Hay MD PCP - General Internal Medicine 09/15/18 [facility] [place] [address] documented as of this encounter
--- OUTSIDE RECORDS SUMMARY | 2022-07-12 00:50 | XMS_ITS | Encounter Summary ---
:1965 Author Organization [facility] Address [facility] [place] [address] Care Team Providers Name Role Phone Tom Hay MD Primary Care Provider Reason for Referral Surgical (Routine) - Closed Specialty Diagnoses / Procedures Referred By Contact Refer red To Contact Orthopaedic Surgery Diagnoses Left shoulder pain, unspecified chronicity Tom Hay, Brian Head MD MD [address] [facility] [place] [address] GENERAL INTERNAL Phone: [place] [address] Referral ID Status Reason Start Date Expiration Date Visits V isits Requested Authorized [id number] Closed Consult, 03/15/2019 09/11/2019 1 1 Test & Treat Reason for Visit Reason Onset Date Comments Other 03/15/2019 Encounter Details Date Type Department Care Team Description 03/15/2019 Telephone Internal Medicine at [facility] Sonia Mir Other [facility] Kevin castañ[place] [address] Social History Tobacco Use Types Packs/Day [...] Telephone Encounter - Salina Higgins RN - 03/15/2019 10:34 AM EDT Pt is requesting that Dr. Reese send a request to Dr. Mercado at the [facility] in [place] for her L shoulder surgery as he has operated on the L shoulder before. She states she was told during herapt.with Dr. Joaquin that she required L rotator cuff and bone spur surgery. Telephone Encounter - Brain Lubin - 03/15/2019 9:35 AM EDT Patient calling back and would like to continue conversation with the nurses from [facility]. Please contact her back at [phone] Telephone Encounter - Ene Perez RN - 03/15/2019 9:29 AM EDT Spoke to patient for a brief moment, phone went . Was able to relay that patient may want to consider finding a PCP in her area, since [place]. Will route this message to PCP to see if he is willing to provide prescription for sling and referral to orthopedic surgeon. Telephone Encounter - Sonia Mir - 03/15/2019 8:57 AM EDT Message: Pt calling re: referral requested and sling for shoulder. She wants to speak to someone this morning. Please call pt back. Ask caller their first and last name and relationship to the patient: self Best time to call back: any Ok to leave a message: yes Ok to send my- message: no Offered Appointment: MA/Nurse contacted via: Message: x Call: x Pager: documented in this encounter Plan of Treatment Upcoming Encounters Date Type Specialty Care Team Description 08/06/2022 Office Visit Plastic Surgery Peña Woodward MD [facility] PLASTIC SURGERY [place] [address] (Flores ordonez) 08/19/2022 Office Visit Podiatry Tom Titus DPM [place], [place] [address] (Flores ordonez) 09/08/2022 Office Visit Internal Medicine Janay Hay MD [facility] GENERAL INTERNAL MEDICINE [place], [place] [address] (Flores ordonez) 10/12/2059 Hospital Encounter Surgery Jim Hanley MD [facility] SPINE CENTER [place], [place] [address] (Wo rk) Scheduled Procedures Name [...] S chedule Referral to Outpatient Referral Routine Left shoulder pain, O rdered: Orthopaedics unspecified 03/15/2019 chronicity documented as of this encounter Visit Diagnoses Diagnosis Left shoulder pain, unspecified chronici ty - Primary documented in this encounter Care Teams Gas Distribution And Emergency Clerk Relationship Specialty Start Date End Date Tom Hay MD PCP - General General Internal Medicine 09/15/18 [facility] GENERAL [place] [address] documented as of this encounter
--- OUTSIDE RECORDS SUMMARY | 2022-07-12 00:50 | XMS_ITS | Encounter Summary ---
:1965 Author Organization [facility] [place] [address] Care Team Providers Name Role Phone Tom Hay MD Primary Care Provider Reason for Visit Reason Onset Date Comments Medication Refill 06/21/2019 Encounter Details Date Type Department Care Team Description 06/21/2019 Refill Internal Medicine at [facility] [address] Social History Tobacco Use Types Packs/Day [...] MD [facility] PLASTIC SURGERY [place], [place] [address] (Wo rk) 08/19/2022 Office Visit Podiatry Tom Titus DPM [place], [place] [address] (Wo rk) 09/08/2022 Office Visit Internal Medicine Janay Hay MD [facility] GENERAL INTERNAL MEDICINE [place], [place] [address] (Wo rk) 10/12/2059 Hospital Encounter Surgery Jim Hanley MD [facility] SPINE CENTER [place], [place] [address] (Wo rk) Scheduled Procedures Name [...] nos documented in this encounter Care Teams Profile Saw Operator Relationship Specialty Start Date End Date Tom Hay MD PCP - General General Internal Medicine 09/15/18 [facility] [place] [address] documented as of this encounter
--- OUTSIDE RECORDS SUMMARY | 2022-07-12 00:50 | XMS_ITS | Encounter Summary ---
:1965 Author Organization [facility] [place] [address] Care Team Providers Name Role Phone Tom Hay MD Primary Care Provider Reason for Visit Reason Onset Date Comments Medication Refill 02/28/2019 Encounter Details Date Type Department Care Team Description 02/28/2019 Refill Internal Medicine at [facility] Lata Souza Cervical radicular pain [facility] [place] [address] Social History Tobacco Use Types Packs/Day [...] Notes Telephone Encounter - Lata Souza - 02/28/2019 11:51 AM EDT documented in this encounter Plan of Treatment Upcoming Encounters Date Type Specialty Care Team Description 08/06/2022 Office Visit Plastic Surgery Peña Woodward MD [facility] PLASTIC SURGERY [place], [place] [address] ( josé luis) 08/19/2022 Office Visit Podiatry Tom Titus DPM [place], [place] [address] (Flores rk) 09/08/2022 Office Visit Internal Medicine Janay Hay MD [facility] GENERAL INTERNAL MEDICINE [place], [place] [address] (Wo rk) 10/12/2059 Hospital Encounter Surgery Jim Hanley MD [facility] SPINE CENTER [place], [place] [address] (Flores ordonez) Scheduled Procedures Name [...] nos documented in this encounter Care Teams Mass Spectrometry Manager Relationship Specialty Start Date End Date Tom Hay MD PCP - General General Internal Medicine 09/15/18 [facility] GENERAL [place] [address] documented as of this encounter
--- OUTSIDE RECORDS SUMMARY | 2022-07-12 00:50 | XMS_ITS | Encounter Summary ---
:1965 Author Organization [facility] [place] [address] Care Team Providers Name Role Phone Tom Hay MD Primary Care Provider Reason for Visit Reason Onset Date Comments Prior Authorization 11/15/2018 Encounter Details Date Type Department Care Team Description 11/15/2018 Telephone Dermatology at [facility] Jacob Blair Authorization [facility] [place] [address] [place] [address] [facility] [place], [place] [address] (Wo rk) Social History Tobacco [...] this encounter Miscellaneous Notes Telephone Encounter - Kris Anderson - 11/15/2018 7:45 AM EST Prior Authorization Patient: Emmanuelle Bynum : 1965 Insurance Company: Medicare/new test company Medication: Taclonex Suspension Prior Authorization Status: APPROVED through 10/11/2019 Note: Approval is for a non-formulary medication and may require a higher copay than other formularymedications. - approval letter scanned into chart documented in this encounter Plan of Treatment Upcoming Encounters Date Type Specialty Care Team Description 08/06/2022 Office Visit Plastic Surgery Peña Woodward MD [facility] PLASTIC SURGERY [place], [place] [address] (Wo rk) 08/19/2022 Office Visit Podiatry Tom Titus DPM [place], [place] [address] (Wo rk) 09/08/2022 Office Visit Internal Medicine Janay Hay MD [facility] GENERAL INTERNAL MEDICINE [place], [place] [address] (Wo rk) 10/12/2059 Hospital Encounter Surgery Jim Hanley MD [facility] DR SPINE CENTER [place], [place] [address] (Wo rk) Scheduled Procedures Name [...] on filedocumented in this encounter Care Teams Returned Item Clerk Relationship Specialty Start Date End Date Tom Hay MD PCP - General General Internal Medicine 09/15/18 [facility] GENERAL [place] [address] documented as of this encounter
--- OUTSIDE RECORDS SUMMARY | 2022-07-12 00:50 | XMS_ITS | Encounter Summary ---
:1965 Author Organization [facility] [place] [address] Care Team Providers Name Role Phone Tom Hay MD Primary Care Provider Reason for Visit Reason Onset Date Comments Medication Refill 04/06/2019 Encounter Details Date Type Department Care Team Description 04/06/2019 Refill Internal Medicine at [facility] Josephine Klein Essential hypertension; [facility] [place] [address] Social History Tobacco Use Types Packs/Day [...] this encounter Miscellaneous Notes Telephone Encounter - Josephine Klein - 04/06/2019 10:02 AM EDT Please remind every patient that prescription requests can take up to 72 business hours to process Medication Refill Request: Name of Medication: Metformin 500 mg Dose as Prescribed: Take 2 tabs twice daily How many days left: A couple days left Prescriber: Tom Hay MD Pharmacy Name & Location: [facility] Ask caller their first and last name and relationship to the patient: [facility] Phone: Best time to call back: any Ok to leave a message: yes Ok to send [facility] message: no ?? documented in this encounter Plan of Treatment Upcoming Encounters Date Type Specialty Care Team Description 08/06/2022 Office Visit Plastic Surgery Peña Woodward MD [facility] PLASTIC SURGERY [place], [place] [address] (Wo rk) 08/19/2022 Office Visit Podiatry Tom Titus DPM [place], [place] [address] (Wo rk) 09/08/2022 Office Visit Internal Medicine Janay Hay MD [facility] GENERAL INTERNAL MEDICINE [place], [place] [address] (Wo rk) 10/12/2059 Hospital Encounter Surgery Jim Hanley MD [facility] SPINE CENTER [place], [place] [address] (Wo rk) Scheduled Procedures Name [...] as of this encounter Visit Diagnoses Diagnosis Essential hypertension Unspecified essential hypertension Vertigo Dizziness and giddiness documented in this encounter Care Teams Laundry Sorter Relationship Specialty Start Date End Date Tom Hay MD PCP - General General Internal Medicine 09/15/18 [facility] GENERAL [place] [address] documented as of this encounter
--- OUTSIDE RECORDS SUMMARY | 2022-07-12 00:50 | XMS_ITS | Encounter Summary ---
:1965 Author Organization [facility] [place] [address] Care Team Providers Name Role Phone Tom Hay MD Primary Care Provider Reason for Visit Reason Onset Date Comments Medication Refill 07/05/2019 Encounter Details Date Type Department Care Team Description 07/05/2019 Refill Dermatology at [facility] Jacob Blair III, MD Psoriasis; [address] [facility] [place] [address] [facility] [address]-[place] [phone] [place], [place] [address] (Wo rk) Social History Tobacco [...] Plastic Surgery Peña Woodward MD [facility] PLASTIC SURGERY [place] [address] (Wo rk) 08/19/2022 Office Visit Podiatry Tom Titus DPM [place] [phone] (Wo rk) 09/08/2022 Office Visit Internal Medicine Janay Hya MD [facility] GENERAL INTERNAL MEDICINE [place], [place] [address] (Wo rk) 10/12/2059 Hospital Encounter Surgery Jim Hanley MD [facility] SPINE CENTER [place], [place] [address] (Wo rk) Scheduled Procedures Name [...] encounter Visit Diagnoses Diagnosis Psoriasis Other psoriasis Dermatitis Contact dermatitis and other eczema, due to unspecified cause documented in this encounter Care Teams Geriatric Physical Therapist Relationship Specialty Start Date End Date Tom Hay MD PCP - General Internal Medicine 09/15/18 [facility] [place] [address] documented as of this encounter
--- OUTSIDE RECORDS SUMMARY | 2022-07-12 00:50 | XMS_ITS | Encounter Summary ---
:1965 Author Organization [facility] Address [address] [place] [address] Care Team Providers Name Role Phone Tom Hay MD Primary Care Provider Reason for Visit Reason Comments Medication Refill Encounter Details Date Type Department Care Team Description 02/05/2019 Refill Internal Medicine at [facility] Tom Hay MD [facility] [place] [address] GENERAL INTERNAL MEDICINE [phone] [place], [place] [address] (Wo rk) Social History Tobacco [...] Woodward MD [facility] PLASTIC SURGERY [place] [phone] ( rk) 08/19/2022 Office Visit Podiatry Tom Titus DPM [place] [phone] ([facility]) 09/08/2022 Office Visit Internal Medicine Janay Hay MD [facility] GENERAL INTERNAL MEDICINE [place], [place] [address] ( rk) 10/12/2059 Hospital Encounter Surgery Jim Hanley MD [facility] SPINE CENTER [place], [place] [address] (Flores ordonez) Scheduled Procedures Name Priority Associated [...] documented as of this encounter Care Teams Virtual Customer Assistant Relationship Specialty Start Date End Date Tom Hay MD PCP - General General Internal Medicine 09/15/18 [facility] GENERAL [place] [address] documented as of this encounter
--- OUTSIDE RECORDS SUMMARY | 2022-07-12 00:50 | XMS_ITS | Encounter Summary ---
:1965 Author Organization [place] [address] Care Team Providers Name Role Phone Tom Hay MD Primary Care Provider Reason for Visit Reason Onset Date Comments Medication Refill 04/07/2019 Encounter Details Date Type Department Care Team Description 04/07/2019 Refill Internal Medicine at [facility] Con trolled type 2 [facility] KOSHER SEALER diabetes mellitus [facility] Kevin castañeda without complication, [place] [address] unspecified whether long [phone] term insulin us e Social History Tobacco Use Types Packs/Day Years [...] MD [facility] PLASTIC SURGERY [place] [phone] (Wo rk) 08/19/2022 Office Visit Podiatry Tom Titus DPM [place] [phone] (Wo rk) 09/08/2022 Office Visit Internal Medicine Janay Hay MD [facility] GENERAL INTERNAL MEDICINE [place] [phone] (Flores rk) 10/12/2059 Hospital Encounter Surgery Jim Hanley MD [facility] SPINE CENTER [place], [place] 0[address] (Wo rk) Scheduled Procedures Name [...] diabetes mellitus with out complication, unspecified whether termite control representative insulin use documented in this encounter Care Teams Control Clerk Subassembly Relationship Specialty Start Date End Date Tom Hay MD PCP - General General Internal Medicine 09/15/18 [facility] [place] [address] documented as of this encounter
--- OUTSIDE RECORDS SUMMARY | 2022-07-12 00:50 | XMS_ITS | Encounter Summary ---
:1965 Author Organization [facility] Address [address] [place] [address] Care Team Providers Name Role Phone Tom Hay MD Primary Care Provider Reason for Visit Reason Onset Date Comments Follow-up 02/28/2019 2 visits to [facility] ED since 02/28, and now, possible collarbone fx Encounter Details Date Type Department Care Team Description 03/09/2019 Telephone Internal [facility] at [facility] ([facility] visits to [facility], RN [place] ED since [facility] 02/28, and now, possible Drive collarbone fx) [place] [address] Social History Tobacco Use Types Packs/Day [...] this encounter Miscellaneous Notes Telephone Encounter - Mehreen Anaya CCMA - 03/09/2019 11:17 AM EDT I spoke to Matilde at [facility] in medical records and she had already received a call from Emmanuelle requesting her medical records to be fax to us at [phone] Telephone Encounter - Brit [place] RN - 03/09/2019 11:06 AM EDT Reason for call: COPD/collarbone Pt call came through as urgent s/t pt telling call center she fell on stairs two days ago, and feelsas though she could have broken it on the left side. She was in distress, sobbing. She said she had been to [facility] February 28 and given z pack and prednisone for COPD flare up. She went back [facility] ED 03/05 because her lungs hurt. Imaging showed negative for pneumonia, but that she had swollen lungs typical of COPD exacerbation. Pt sent home with levofloxacin, and has two days of medication left to take. Pt says she feels no better, and cannot sleep s/t pain in collarbone and lungs. Pt said she does not have AVS for either ED visit. I told her she should call Carmen and give permission to release her records. (She did; Carmen said they would come over shortly.) I told pt I would let her know if provider wants her to have x-ray of collarbone before appt today. documented in this encounter Plan of Treatment Upcoming Encounters Date Type Specialty Care Team Description 08/06/2022 Office Visit Plastic Surgery Peña Woodward MD [facility] PLASTIC SURGERY [place], [place] [address] (Wo rk) 08/19/2022 Office Visit Podiatry Tom Titus DPM [place], [place] 0375 (Wo rk) 09/08/2022 Office Visit Internal Medicine Janay Hay MD [facility] GENERAL INTERNAL MEDICINE [place], [place] [address] (Wo rk) 10/12/2059 Hospital Encounter Surgery Jim Hanley MD [facility] SPINE CENTER [place], [place] [address] (Wo rk) Scheduled Procedures Name [...] filedocumented in this encounter Care Teams Wood Sawyer Relationship Specialty Start Date End Date Tom Hay MD PCP - General Internal Medicine 09/15/18 [facility] [place] [address] documented as of this encounter
--- OUTSIDE RECORDS SUMMARY | 2022-07-12 00:50 | XMS_ITS | Encounter Summary ---
:1965 Author Organization [facility] Address [address] [place] [address] Care Team Providers Name Role Phone Tom Hay MD Primary Care Provider Encounter Details Date Type Department Care Team Description 03/09/2019 [place] [facility] History of recent [address] Radha MD [facility] [id number] [place] [phone] GENERAL INTERNAL MEDICINE [place], [place] [address] Social History Tobacco Use Types [...] Sig Dispensed Refills Start Date End Date fluticasone (VERAMYST) 2 sprays by Nasal 0 27.5 mcg/actuation [place], route daily. SuspensionIndications: Indications: allergic rhinitis Allergic Rhinitis ibuprofen (IBU) 800 mg Take 1 tablet by 270 tablet 3 019 TabletIndications: mouth every 8 hours 0 Cervical radicular pain as needed for Pain. Clobetasol-Emollient 0.05 Apply twice daily to 200 g 0 02/28/2019 % FoamIndications: worse scalp 9 Psoriasis psoriasis on weekends-only as needed dispense 3 bottles please pen needle, diabetic 1 each by 100 each 5 01/04/201910/12 (NOVOTWIST) 32 gauge x Misc.(Non-Drug; 0 1/5 Needle Combo Route) route 4 times daily as needed. [facility]wist needle levothyroxine (SYNTHROID) Take 2 tablets by 180 tablet 3 150 mcg Tablet mouth daily. Take in 0 addition to the 25mcg to equal 325mcg levothyroxine (SYNTHROID) Take 1 tablet by 90 tablet 3 12/11 25 mcg Tablet mouth daily. 0 BREO ELLIPTA 200-25 Inhale 1 puff into 3 each 3 12/30/19 19 mcg/dose Disk with Device the lungs daily. 0 albuterol (PROAIR HFA) 90 Inhale 2 puffs into 8.5 g 3 0 12/29/2018 mcg/actuation HFA Aerosol the lungs every 4 0 InhalerIndications: hours as needed for Asthma, unspecified Wheezing. Use with asthma severity, spacer unspecified whether complicated, unspecified whether persistent tiotropium (SPIRIVA) 18 Inhale 1 capsule 90 capsule 3 2018 mcg Capsule, w/Inhalation into the lungs 9 Device daily. glipiZIDE (GLUCOTROL) 5 TAKE 1 TABLET BY 60 tablet 11 2018 mg Tablet MOUTH TWICE DAILY 0 BEFORE MEALS vitamin with Take 1 tablet by 0 [id number] mouth daily. 2 Tablet esomeprazole (NEXIUM) 40 Take 1 capsule by 180 capsule 3 mg Capsule, Delayed mouth 2 times daily. 9 Release(E.C.) metroNIDAZOLE Apply topically 2 45 g 5 10/29/201802/09 (METROCREAM) 0.75 % Cream times daily. 2 montelukast (SINGULAIR) Take 1 tablet by 90 tablet 3 2018 10 mg Tablet mouth nightly. 9 varenicline (CHANTIX) 1 Take 1 tablet by 30 tablet 5 2017 mg Tablet mouth daily. 0 exenatide microspheres 2 Inject 2 mg 4 each 11 10/01/2018 mg/0.65 mL Pen Injector subcutaneously every 9 7 days. atorvastatin (LIPITOR) 20 Take 1 tablet by 90 tablet 3 09/12 mg Tablet mouth daily. 0 lancets (FREESTYLE Dx E11.9 please test 125 each 11 018 LANCETS) 28 gauge 4x/day with lancets 9 MiscIndications: diabetes Indications: mellitus Diabetes Mellitus meclizine (ANTIVERT) 25 TAKE 1 TABLET BY 90 tablet 3 2017 mg TabletIndications: MOUTH THREE TIMES 0 Vertigo DAILY NEEDED naratriptan (AMERGE) 2.5 TAKE 1 TABLET BY 10 tablet 3 08/30 mg TabletIndications: MOUTH AT ONSET OF 9 Vertigo HEADACHE; IF RETURNS OR DOES NOT RESOLVE, MAY REPEAT AFTER4 HOURS blood sugar diagnostic Use as instructed to 100 each 11 strips StripIndications: check BG 4 times 9 Controlled type 2 daily. (Freestyle diabetes mellitus without Lite) complication, unspecified whether retirement insulin use methocarbamol (ROBAXIN) Take 1 tablet by 120 tablet 0 2017 750 mg TabletIndications: mouth 4 times daily. 9 Cervical radicular pain betamethasone-calcipotrie Apply 3 times a week 120 g 1 07/21/2018 ne (TACLONEX SCALP) to scalp for 0 0.005-0.064 % psoriasis as needed. SuspensionIndications: Psoriasis ondansetron (ZOFRAN) 4 mg TAKE 1 TABLET BY 20 tablet 3 06/13 TabletIndications: MOUTH EVERY 8 HOURS 9 Vertigo NEEDED NAUSEA betamethasone, augmented, Apply to psoriasis 60 mL 1 (DIPROLENE) 0.05 % in scalp 1-2 times a 9 LotionIndications: day, 2-3 times a Psoriasis week ; with calcipotriene giana Calcipotriene 0.005 % Apply to psoriasis 60 mL 2 2017 SolutionIndications: in scalp 2-3 times a 9 Psoriasis week, use with betamethasone giana insulin glargine (LANTUS Inject 48 Units 15 mL 11 2017 SOLOSTAR U-100 INSULIN) subcutaneously 0 100 unit/mL (3 mL) nightly. penIndications: Controlled type 2 diabetes mellitus without complication, unspecified whether retirement insulin use hydroCHLOROthiazide Take 1 tablet by 90 tablet 3 06/15/2018 (HYDRODIURIL) 50 mg mouth daily. 9 TabletIndications: Essential hypertension HUMALOG KWIKPEN 100 INJECT 4 TO 30 UNITS 27 mL 0 2017 unit/mL Insulin Pen UNDER THE SKIN THREE 0 TIMES DAILY WITH MEALS DIRECTED amLODIPine (NORVASC) 10 Take 1 tablet by 90 tablet 3 2017 mg Tablet mouth daily. 9 cholecalciferol, Vitamin Take 1 capsule by 52 capsule 0 04/11 D3, 50,000 unit Capsule mouth once a week. 1 valACYclovir (VALTREX) 1 Take 1 tablet by 18 tablet 0 04/20 gram Tablet mouth 2 times daily. 0 VITAMIN D 1,000 unit Take 2 tablets by 90 tablet 0 03/24/20 18 Tablet mouth daily. 0 cycloSPORINE (RESTASIS) Place 1 drop into 180 vial 3 10/20 0.05 % both eyes every 12 1 DropperetteIndications: hours. Bilateral dry eyes nystatin (MYCOSTATIN) Take by mouth 4 0 7 100,000 unit/mL times daily. 9 Suspension gabapentin (NEURONTIN) Take 900 mg in the 150 tablet 3 10/16 600 mg TabletIndications: morning and 900 mg 9 Headache(784.0) at noontime. Take 1200 mg at bedtime. promethazine (PHENERGAN) Take 25 mg by mouth 0 25 mg tablet every 6 hours as 1 needed. ALPRAZolam (XANAX) 1 mg Take 1 mg by mouth 3 0 tablet times daily as 2 needed. FLUoxetine (PROZAC) 40 mg Take 80 mg by mouth 0 capsule daily. 0 ARIPiprazole (Abilify) 30 Take 30 mg by mouth 0 mg Tablet daily. 2 documented as of this encounter Plan of Treatment Upcoming Encounters Date Type Specialty Care Team Description 08/06/2022 Office Visit Plastic Surgery Peña Woodward MD [facility] PLASTIC SURGERY [place], [place] [address] (Wo rk) 08/19/2022 Office Visit Podiatry Tom Titus DPM [place], [place] [address] (Wo rk) 09/08/2022 Office Visit Internal Medicine Janay Hay MD [facility] GENERAL INTERNAL MEDICINE [place], [place] [address] (Wo rk) 10/12/2059 Hospital Encounter Surgery Jim Hanley MD [facility] [place], [place] [address] (Wo rk) Scheduled Procedures Name [...] Priority Date/Time Associated Diagnosis Comme nts XR SHOULDER LEFT STAT 03/09/2019 5:00 PM History of recent Results for this EDT fall procedure are i n the results section. documented in this encounter Results XR Shoulder Left (Generic) (03/09/2019 5:00 PM EDT) Anatomical Region Laterality Modality Shoulder Left Digital Radiography Specimen (Source) Anatomical Location Collection Method / Collectio n Time Received Time / Laterality Volume Impressions 03/09/2019 5:03 PM EDT No acute fracture or dislocation bones of LEFT shoulder. Increased ossification noted along great er tuberosity of humerus at insertion of rotator cuff tendon; likely tendinopathy . Acromioclavicular joint and glenohumeral joints intact. Visualized adjacent LEFT thoracic ribs a re unremarkable. Thank you for letting us participate in the care of this patient. For questions regarding this report, please contact e number below. ? Narrative 03/09/2019 5:03 PM EDT EXAMINATION: XR SHOULDER LEFT (GENERIC) CLINICAL HISTORY: L shoulder pain after trauma, concern for clavicular trauma TECHNIQUE: 4 views LEFT shoulder COMPARISON: 02/10/2017 FINDINGS: No acute fracture or dislocation bones o f LEFT shoulder. Increased ossification noted along great er tuberosity of humerus at insertion of rotator cuff tendon; likely tendinopathy . Acromioclavicular joint and glenohumeral joints intact. Visualized adjacent LEFT thoracic ribs a re unremarkable. Procedure Note Julio C Hernandez MD - 03/09/2019Form atting of this note might be different from the original. EXAMINATION: XR SHOULDER LEFT (GENERIC) CLINICAL HISTORY: L shoulder pain after trauma, concern for clavicular trauma TECHNIQUE: 4 views LEFT shoulder COMPARISON: 02/10/2017 FINDINGS: No acute fracture or dislocation bones o f LEFT shoulder. Increased ossification noted along great er tuberosity of humerus at insertion of rotator cuff tendon; likely tendinopathy . Acromioclavicular joint and glenohumeral joints intact. Visualized adjacent LEFT thoracic ribs a re unremarkable. IMPRESSION No acute fracture or dislocation bones o f LEFT shoulder. Increased ossification noted along great er tuberosity of humerus at insertion of rotator cuff tendon; likely tendinopathy . Acromioclavicular joint and glenohumeral joints intact. Visualized adjacent LEFT thoracic ribs a re unremarkable. Thank you for letting us participate in the care of this patient. For questions regarding this report, please contact e number below. Adri Adams MD IMG DX ORDERABLES documented in this encounter Visit Diagnoses Diagnosis History of recent fall documented in this encounter Care Teams Fbi Field Agent Relationship Specialty Start Date End Date Tom Hay MD PCP - General General Internal Medicine 09/15/[address] [facility] GENERAL [place] [address] documented as of this encounter
--- OUTSIDE RECORDS SUMMARY | 2022-07-12 00:50 | XMS_ITS | Encounter Summary ---
:1965 Author Organization [facility] [place] [address] Care Team Providers Name Role Phone Tom Hay MD Primary Care Provider Reason for Visit Reason Onset Date Comments Medication Refill 06/14/2019 Encounter Details Date Type Department Care Team Description 06/14/2019 Refill Dermatology at [facility] Jacob Blair III, MD Psoriasis [address] [facility] [place] [phone] [facility] [address]-[place] [phone] [place], [place] [address] (Wo rk) Social History Tobacco [...] [facility] PLASTIC SURGERY [place] [phone] ([facility]) 08/19/2022 Office Visit Podiatry Tom Titus DPM [place] [phone] ([facility]) 09/08/2022 Office Visit Internal Medicine Janay Hay MD [facility] GENERAL INTERNAL MEDICINE [place], [place] [address] ([facility]) 10/12/2059 Hospital Encounter Surgery Jim Hanley MD [facility] SPINE CENTER [place], [place] [address] ([facility]) Scheduled Procedures Name Priority Associated Diagnoses [...] encounter Visit Diagnoses Diagnosis Psoriasis Other psoriasis documented in this encounter Care Teams Cosmetology Educator Relationship Specialty Start Date End Date Tom Hay MD PCP - General Internal Medicine 09/15/18 [facility] GENERAL [place] [address] documented as of this encounter
--- OUTSIDE RECORDS SUMMARY | 2022-07-12 00:50 | XMS_ITS | Encounter Summary ---
:1965 Author Organization [facility] Address [facility] [place] [address] Care Team Providers Name Role Phone Tom Hay MD Primary Care Provider Encounter Details Date Type Department Care Team Description 12/30/2018 Refill [place] [facility] [place] [facility] [place] [address] Social History Tobacco Use Types Packs/Day [...] Woodward MD [facility] PLASTIC SURGERY [place], [place] [address] (Wo rk) 08/19/2022 Office Visit Podiatry Tom Titus DPM [place], [place] [address] (Wo rk) 09/08/2022 Office Visit Internal Medicine Janay Hay MD [facility] GENERAL INTERNAL MEDICINE [place], [place] [address] (Wo rk) 10/12/2059 Hospital Encounter Surgery Jim Hanley MD [facility] SPINE CENTER [place], [place] [address] (Wo rk) Scheduled Procedures Name [...] on filedocumented in this encounter Care Teams Cloth Colorer Relationship Specialty Start Date End Date Tom Hay MD PCP - General Internal Medicine 09/15/18 [facility] [place] [address] documented as of this encounter
--- OUTSIDE RECORDS SUMMARY | 2022-07-12 00:50 | XMS_ITS | Encounter Summary ---
:1965 Author Organization [facility] [place] [address] Care Team Providers Name Role Phone Tom Hay MD Primary Care Provider Reason for Visit Reason Onset Date Comments Medication Refill 04/28/2019 Encounter Details Date Type Department Care Team Description 04/28/2019 Refill Internal Medicine at [facility] radicular pain; [facility] [place] Kelly Controlled type 2 diabetes m liana without complication, unspecified whether half-way insulin use [facility] Kevin [place]añ[place] [address] Social History Tobacco Use Types Packs/Day [...] Surgery Peña Woodward MD [facility] PLASTIC SURGERY [place] [phone] ( rk) 08/19/2022 Office Visit Podiatry Tom Titus DPM [place] [phone] ( rk) 09/08/2022 Office Visit Internal Medicine Janay Hay MD [facility] GENERAL INTERNAL MEDICINE [place] [phone] (Wo rk) 10/12/2059 Hospital Encounter Surgery Jim Hanley MD [facility] SPINE CENTER [place] [phone] (Wo rk) Scheduled Procedures Name Priority Associated [...] diabetes mellitus with out complication, unspecified whether half-way insulin use documented in this encounter Care Teams Staff Counselor Relationship Specialty Start Date End Date Tom Hay MD PCP - General Internal Medicine 09/15/18 [facility] GENERAL [place] [address] documented as of this encounter
--- OUTSIDE RECORDS SUMMARY | 2022-07-12 00:50 | XMS_ITS | Encounter Summary ---
:1965 Author Organization [facility] Address [facility] [place] [address] Care Team Providers Name Role Phone Tom Hay MD Primary Care Provider Reason for Visit Reason Onset Date Comments Injections 03/09/2019 Encounter Details Date Type Department Care Team Description 03/09/2019 Telephone Internal Medicine at [facility] Candie Holley [facility] Kevin castañ[place] [address] Social History Tobacco Use Types Packs/Day [...] Telephone Encounter - Mehreen Anaya CCMA - 03/10/2019 2:01 PM EDT I spoke to Guerda and offered her an appointment with Dr. Hay tomorrow at 11:20 am but she declined it because she can not drive and has to speak to her roommate and see when she can bring her. She will call back and schedule an injection of cortisone in her shoulder with Dr. Hay. Telephone Encounter - Mehreen Anaya CCMA - 03/10/2019 2:01 PM EDT ----- Message from Tom Hay MD sent at 03/10/2019 1:47 PM EDT ----- I Could see her tomorrow at 1120- for probable shoulder injection. Please call and schedule ----- Message ----- From: Jennifer Samson APRN Sent: 03/10/2019 1:44 PM To: MD Magi Walker and Yamileth I offered to refer Emmanuelle to PT and she seemed receptive , but she left prior to conclusion of visit She was awaiting IV team for access to give the IVF I am happy to help, but also defer to you re: next steps Sanjuana Samson Telephone Encounter - Candie Holley - 03/09/2019 11:36 AM EDT Message: [facility] called and states they just faxed over some medical records for the pt. She would like to make sure they were received since the pt has an appt today at 3PM with Dr Christina. Please call if records were not received. Ask caller their first and last name and relationship to the patient: [facility] Best time to call back: any Ok to leave a message: y Ok to send my- message: n Offered Appointment: n MA/Nurse contacted via: Message: y Call: y -brittny team chocolate finisher operator Pager: n documented in this encounter Plan of Treatment Upcoming Encounters Date Type Specialty Care Team Description 08/06/2022 Office Visit Plastic Surgery Peña Woodward MD [facility] PLASTIC SURGERY [place] [phone] (Wo rk) 08/19/2022 Office Visit Podiatry Tom Titus DPM [place] [phone] (Wo rk) 09/08/2022 Office Visit Internal Medicine Janay Hay MD [facility] GENERAL INTERNAL MEDICINE [place], [place] [address] (Wo rk) 10/12/2059 Hospital Encounter Surgery Jim Hanley MD [facility] SPINE CENTER [place], [place] [address] (Wo rk) Scheduled Procedures Name [...] on filedocumented in this encounter Care Teams Stress Test Technician Relationship Specialty Start Date End Date Tom Hay MD PCP - General Internal Medicine 09/15/18 [facility] [place] [address] documented as of this encounter
--- OUTSIDE RECORDS SUMMARY | 2022-07-12 00:50 | XMS_ITS | Encounter Summary ---
:1965 Author Organization [facility] [place] [address] Care Team Providers Name Role Phone Tom Hay MD Primary Care Provider Reason for Visit Reason Onset Date Comments Medication Refill 04/05/2019 Encounter Details Date Type Department Care Team Description 04/05/2019 Refill Dermatology at [facility] Jacob Blair III, MD Psoriasis [address] [facility] [phone] [facility] [address]-DERMATOL[place] [phone] [place], [place] [address] (Wo rk) Social History Tobacco [...] MD [facility] PLASTIC SURGERY [place] [phone] ([facility]) 08/19/2022 Office Visit Podiatry Tom Titus DPM [place] [phone] ([facility]) 09/08/2022 Office Visit Internal Medicine Janay Hay MD [facility] GENERAL INTERNAL MEDICINE [place], [place] [address] ([facility]) 10/12/2059 Hospital Encounter Surgery Jim Hanley MD [facility] SPINE CENTER [place], [place] [address] ([facility]) Scheduled Procedures Name Priority Associated Diagnoses [...] psoriasis documented in this encounter Care Teams Pastrycook'S Assistant Relationship Specialty Start Date End Date Tom Hay MD PCP - General Internal Medicine 09/15/18 [facility] [place] [address] documented as of this encounter
--- OUTSIDE RECORDS SUMMARY | 2022-07-12 00:50 | XMS_ITS | Encounter Summary ---
:1965 Author Organization [facility] [place] [address] Care Team Providers Name Role Phone Tom Hay MD Primary Care Provider Encounter Details Date Type Department Care Team Description 03/09/2019 Office Visit Internal Medicine at [place], Jennifer soto pain of left shoulder; [facility] M, FURNITURE ARRANGER Rotator cuff disorder, left; [facility] [address] [place], [place] [phone] Social History Tobacco Use Types Packs/Day Years [...] documented as of this encounter Progress Notes Jennifer Yepez, FURNITURE ARRANGER - 03/09/2019 5:15 PM EDT [facility] PCP Tom Hay * I assumed care of this pt seen this afternoon by Dr Joaquin She provides HO severe left shoulder pain since a fall Is awaiting results of shoulder xray she had this afternoon She has not been getting any sleep , very distressed about this Seeks pain relief Is taking ibuprofen 1600 mg as often as every 8 hours Simultaneously she is on prednisone Also has Robaxin Currently taking prednisone for respiratory illness Wonders what is going to be done about her elevated blood sugars ( 400 ) Thought she was going to receive IVF this afternoon IV access is difficult , awaiting arrival of IV team at the point that pt left w/o completing visit Would consider PT for her pain OBJECTIVE : cooperative and communicative EXAM : deferred *XRAY results : IMPRESSION No acute fracture or dislocation bones of LEFT shoulder. Increased ossification noted along greater tuberosity of humerus at insertion of rotator cuff tendon; likely tendinopathy. Acromioclavicular joint and glenohumeral joints intact. Visualized adjacent LEFT thoracic ribs are unremarkable. IMPRESSION and PLAN Shoulder pain likely 2/2 rotator cuff tendinopathy We accomplished pendulum exercises I offered to refer to PT Re : glucose management and plan for IVF ( as per Dr Joaquin this afternoon ) ; pt left w/o completing care prior to arrival of IV team 1. Acute pain of left shoulder 2. Rotator cuff disorder, left Advised : not recommended to take ibuprofen while also taking prednisone Advised : not to exceed 2400 mg in 2400 no prior HO UGI bleed RX : toradol 15mg ( she has prev taken and tolerated ) 3. Hyperglycemia Pt left prior to completing care Future Appointments Date Time Provider Department Center 04/22/2019 3:00 PM Tom Hay MD [facility]IN Dorcas Odom, RN - 03/09/2019 5:15 PM EDT Administered ketorolac 15 mg into right gluteal IM Patient tolerated well without difficulty No concerns or questions documented in this encounter Miscellaneous Notes Addendum Note - Jennifer Yepez APRN - 03/09/2019 5:15 PM EDT Addended by: JENNIFER YEPEZ on: 03/10/2019 01:48 PM Modules accepted: Level of Service documented in this encounter Plan of Treatment Upcoming Encounters Date Type Specialty Care Team Description 08/06/2022 Office Visit Plastic Surgery Peña Woodward MD [facility] PLASTIC SURGERY [place], [place] [address] ([facility] [facility]) 08/19/2022 Office Visit Podiatry Tom Titus DPM [place], [place] [address] ([facility] [facility]) 09/08/2022 Office Visit Internal Medicine Janay Hay MD [facility] GENERAL INTERNAL MEDICINE [place], [place] [address] (Flores ordonez) 10/12/2059 Hospital Encounter Surgery Jim Hanley MD [facility] SPINE [place], [place] [address] (Wo rk) Scheduled Procedures Name [...] as of this encounter Visit Diagnoses Diagnosis Acute pain of left shoulder Rotator cuff disorder, left Hyperglycemia Other abnormal glucose documented in this encounter Administered Medications Inactive Administered Medications - up to 3 most recent administrations Medication Order MAR Action Action Date Dose Rate Site ketorolac (TORADOL) Given 03/09/2019 5:40 PM EDT 15 mg Right Gluteal injection 15 mg 15 mg, Intramuscular, ONCE, 1 dose, On Thu03/09/19 at 1800, STAT documented in this encounter Care Teams Underwriter Mortgage Loan Relationship Specialty Start Date End Date Tom Hay MD PCP - General General Internal Medicine 09/15/18 [facility] GENERAL [place] [address] documented as of this encounter
--- OUTSIDE RECORDS SUMMARY | 2022-07-12 00:50 | XMS_ITS | Encounter Summary ---
:1965 Author Organization [facility] Address [address] [place] [address] Care Team Providers Name Role Phone Tom Hay MD Primary Care Provider Encounter Details Date Type Department Care Team Description 03/09/2019 Hospital Encounter [place] [facility] Adri Adams History of recent [address] Radha MD [facility] [id number] [place] [phone] GENERAL INTERNAL MEDICINE [place], [place] [address] Social History Tobacco Use Types [...] 2 sprays by Nasal 0 27.5 mcg/actuation [place], route daily. SuspensionIndications: Indications: allergic rhinitis Allergic [...] vitamin with Take 1 tablet by 0 [id number] mouth daily. 2 Tablet esomeprazole (NEXIUM) 40 [...] diabetes mellitus without Lite) complication, unspecified whether longterm insulin use methocarbamol (ROBAXIN) Take 1 tablet [...] 2 diabetes mellitus without complication, unspecified whether longterm insulin use hydroCHLOROthiazide Take 1 tablet by [...] MD [facility] PLASTIC SURGERY [place], [place] [address] (Wo rk) 08/19/2022 Office Visit Podiatry Tom Titus DPM [place], [place] [address] (Wo rk) 09/08/2022 Office Visit Internal Medicine Janay Hay MD [facility] GENERAL INTERNAL MEDICINE [place], [place] [address] (Wo rk) 10/12/2059 Hospital Encounter Surgery Jim Hanley MD [facility] SPINE CENTER [place], [place] [address] (Wo rk) Scheduled Procedures Name [...] Priority Date/Time Associated Diagnosis Comme nts XR CLAVICLE LEFT STAT 03/09/2019 5:00 PM History of recent Results for this EDT fall procedure are i n the results section. documented in this encounter Results XR Clavicle Left (Generic) (03/09/2019 5:00 PM EDT) Anatomical Region Laterality Modality Shoulder, Chest Left Digital Radiography Specimen (Source) Anatomical Location Collection Method / Collectio n Time Received Time / Laterality Volume Impressions 03/09/2019 5:04 PM EDT No acute fracture or dislocation LEFT clavicle. Acromioclavicular joint intact. Details of shoulder joint can be found o n the accompanying LEFT shoulder study Thank you for letting us participate in the care of this patient. For questions regarding this report, please contact e number below. ? Narrative 03/09/2019 5:04 PM EDT EXAMINATION: XR CLAVICLE LEFT (GENERIC) CLINICAL HISTORY: 53 y/o F with recent f all and trauma to the L shoulder with pain concerning for clavicular fracture TECHNIQUE: 2 views LEFT clavicle COMPARISON: None FINDINGS: No acute fracture or dislocation LEFT cl avicle. Acromioclavicular joint intact. Details of shoulder joint can be found o n the accompanying LEFT shoulder study. Procedure Note Julio C Hernandez MD - 03/09/2019Form atting of this note might be different from the original. EXAMINATION: XR CLAVICLE LEFT (GENERIC) CLINICAL HISTORY: 53 y/o F with recent f all and trauma to the L shoulder with pain concerning for clavicular fracture TECHNIQUE: 2 views LEFT clavicle COMPARISON: None FINDINGS: No acute fracture or dislocation LEFT cl avicle. Acromioclavicular joint intact. Details of shoulder joint can be found o n the accompanying LEFT shoulder study. IMPRESSION No acute fracture or dislocation LEFT cl avicle. Acromioclavicular joint intact. Details of shoulder joint can be found o n the accompanying LEFT shoulder study Thank you for letting us participate in the care of this patient. For questions regarding this report, please contact e number below. Adri Adams MD IMG DX ORDERABLES documented in this encounter Visit Diagnoses Diagnosis History of recent fall documented in this encounter Care Teams Snuff Packing Machine Operator Relationship Specialty Start Date End Date Tom Hay MD PCP - General General Internal Medicine 09/15/18 [facility] [place] [address] documented as of this encounter
--- OUTSIDE RECORDS SUMMARY | 2022-07-12 00:50 | XMS_ITS | Encounter Summary ---
:1965 Author Organization [facility] Address [facility] [place] [address] Care Team Providers Name Role Phone Tom Hay MD Primary Care Provider Encounter Details Date Type Department Care Team Description 03/10/2019 Telephone Internal Medicine at [facility] Manuel Brown [facility] [place] [address] Social History Tobacco Use Types Packs/Day [...] Plastic Surgery Peña Woodward MD [facility] PLASTIC SURGERY [place], [place] [address] (Wo rk) 08/19/2022 Office Visit Podiatry Tom Titus DPM [place], [place] [address] (Wo rk) 09/08/2022 Office Visit Internal Medicine Janay Hay MD [facility] GENERAL INTERNAL MEDICINE [place], [place] [address] (Wo rk) 10/12/2059 Hospital Encounter Surgery Jim Hanley MD [facility] SPINE CENTER [place], [place] [address] (Wo rk) Scheduled Procedures Name [...] on filedocumented in this encounter Care Teams Drilling Machine Operator Relationship Specialty Start Date End Date Tom Hay MD PCP - General Internal Medicine 09/15/18 [facility] GENERAL [place] [address] documented as of this encounter
--- OUTSIDE RECORDS SUMMARY | 2022-07-12 00:50 | XMS_ITS | Encounter Summary ---
:1965 Author Organization [facility] [place] [address] Care Team Providers Name Role Phone Tom Hay MD Primary Care Provider Reason for Visit Reason Onset Date Comments Medication Refill 04/28/2019 Encounter Details Date Type Department Care Team Description 04/28/[address] Medicine [address] [facility] Robin Del Rio [facility] Kevin [address]añ[place] [address] Social History Tobacco Use Types Packs/Day [...] MD [facility] PLASTIC SURGERY [place], [place] [address] (Wo rk) 08/19/2022 Office Visit Podiatry Tom Titus DPM [place], [place] 0[address] (Wo rk) 09/08/2022 Office Visit Internal Medicine Janay Hay MD [facility] GENERAL INTERNAL MEDICINE [place], [place] [address] (Wo rk) 10/12/2059 Hospital Encounter Surgery Jim Hanley MD [facility] SPINE CENTER [place], [place] [address] (Wo rk) Scheduled Procedures Name [...] giddiness documented in this encounter Care Teams Trombone Slide Assembler Relationship Specialty Start Date End Date Tom Hay MD PCP - General General Internal Medicine 09/15/18 [facility] GENERAL [place] [address] documented as of this encounter
--- OUTSIDE RECORDS SUMMARY | 2022-07-12 00:50 | XMS_ITS | Encounter Summary ---
:1965 Author Organization [facility] [place] [address] Care Team Providers Name Role Phone Tom Hay MD Primary Care Provider Encounter Details Date Type Department Care Team Description 04/28/2019 Orders Only Internal Medicine [place] [facility] [place] Robin Del Rio [facility] Kevin [place]añ[place] [address] Social History Tobacco Use Types Packs/Day [...] [facility] PLASTIC SURGERY [place], [place] [address] (Wo rk) 08/19/2022 Office Visit Podiatry Tom Titus DPM [place] [phone] (Wo rk) 09/08/2022 Office Visit Internal Medicine Janay Hay MD [facility] GENERAL INTERNAL MEDICINE [place] [phone] (Wo rk) 10/12/2059 Hospital Encounter Surgery Jim Hanley MD [facility] SPINE CENTER [place], [place] [address] (Wo rk) Scheduled Procedures Name [...] giddiness documented in this encounter Care Teams Color Maker Formulator Relationship Specialty Start Date End Date Tom Hay MD PCP - General Internal Medicine 09/15/18 [facility] [place] [address] documented as of this encounter
--- OUTSIDE RECORDS SUMMARY | 2022-07-12 00:50 | XMS_ITS | Encounter Summary ---
:1965 Author Organization [facility] Address [facility] [address] [place] [address] Care Team Providers Name Role Phone Tom Hay MD Primary Care Provider Reason for Visit Reason Comments Medication Refill Encounter Details Date Type Department Care Team Description 01/26/2019 Refill Internal Medicine at [facility] [place] [facility] [place] [phone] General Internal Medicine [phone] [place], [place] [address] (Wo rk) Social History Tobacco [...] MD [facility] PLASTIC SURGERY [place] [phone] ( rk) 08/19/2022 Office Visit Podiatry Tom Titus DPM [place] [phone] ([facility]) 09/08/2022 Office Visit Internal Medicine Janay Hay MD [facility] GENERAL INTERNAL MEDICINE [place], [place] [address] ( rk) 10/12/2059 Hospital Encounter Surgery Jim Hanley MD [facility] SPINE CENTER [place], [place] [address] (Flores ordonez) Scheduled Procedures Name Priority Associated [...] documented as of this encounter Care Teams Tank Car Cleaner Relationship Specialty Start Date End Date Tom Hay MD PCP - General General Internal Medicine 09/15/18 [facility] [place] [address] documented as of this encounter
--- OUTSIDE RECORDS SUMMARY | 2022-07-12 00:50 | XMS_ITS | Encounter Summary ---
:1965 Author Organization [facility] Address [address] [facility] [place] [address] Care Team Providers Name Role Phone Tom Hay MD Primary Care Provider Reason for Visit Reason Onset Date Comments Other 03/11/2019 Encounter Details Date Type Department Care Team Description 03/11/2019 Telephone Internal Medicine at [facility] Masood Hester Other [facility] Kevin castañ[place] [address] Social History Tobacco Use Types Packs/Day [...] encounter Miscellaneous Notes Telephone Encounter - Mehreen Hawkins RN - 03/11/2019 12:05 PM EDT There has been some confusion regarding Guerda getting an apt for her shoulder. [place] 85 miles [place]and says that her shoulder hurts so much she is unable to drive to [facility] for an apt. Therefore she would like a referral to Dr. Enrico Bright in [place] who has seen her in the past and is familiar withher shoulder issues and he is much closer to her home town. [facility] town and [facility] to buy a different sling and they will not sell a sling without a prescription. The sling she was given is hurting her neck. So she is asking for a prescription for a sling to imobilize her left shoulder and a referral to Dr. Bright. Mehreen Hawkins RN Telephone Encounter - Masood Hester - 03/11/2019 10:54 AM EDT Message: patient calling to see if an order can be sent to [employer] (fax number: [phone]) for an arm sling - says the one she received for her shoulder- hurts her neck and she needs one with padding. Patient is also asking if a referral can be sent to Dr. Enrico Bright, [facility] in [place] in order for her to receive cortisone shots on her shoulder. Ask caller their first and last name and relationship to the patient: patient Best time to call back: today Ok to leave a message: y Ok to send my- message: n Offered Appointment: charity SALAZAR/Nurse contacted via: Message: y Call: n Pager: n documented in this encounter Plan of Treatment Upcoming Encounters Date Type Specialty Care Team Description 08/06/2022 Office Visit Plastic Surgery Peña Woodward MD [facility] PLASTIC SURGERY [place], [place] [address] (Wo rk) 08/19/2022 Office Visit Podiatry Tom Titus DPM [place], [place] [address] (Wo rk) 09/08/2022 Office Visit Internal Medicine Janay Hay MD [facility] GENERAL INTERNAL MEDICINE [place], [place] [address] (Wo rk) 10/12/2059 Hospital Encounter Surgery Jim Hanley MD [facility] SPINE CENTER [place], [place] [address] (Wo rk) Scheduled Procedures Name [...] on filedocumented in this encounter Care Teams Digital Photo Printer Relationship Specialty Start Date End Date Tom Hay MD PCP - General Internal Medicine 09/15/18 [facility] GENERAL [place] [address] documented as of this encounter
--- OUTSIDE RECORDS SUMMARY | 2022-07-12 00:50 | XMS_ITS | Encounter Summary ---
:1965 Author Organization [facility] Address [address] [place] [address] Care Team Providers Name Role Phone Tom Hay MD Primary Care Provider Reason for Visit Reason Onset Date Comments Medication Refill 04/07/2019 Encounter Details Date Type Department Care Team Description 04/07/2019 Refill Dermatology at [facility] Aminata Perez CCMA Psoriasis [address] [place] [address] Social History Tobacco Use Types Packs/Day [...] Office Visit Plastic Surgery Peña Woodward MD [facility] PLASTIC SURGERY [place], [place] [address] (Wo rk) 08/19/2022 Office Visit Podiatry Tom Titus DPM [place], [place] [address] (Wo rk) 09/08/2022 Office Visit Internal Medicine Janay Hay MD [facility] GENERAL INTERNAL MEDICINE [place], [place] [address] (Wo rk) 10/12/2059 Hospital Encounter Surgery Jim Hanley MD [facility] SPINE CENTER [place], [place] [address] (Wo rk) Scheduled Procedures Name [...] psoriasis documented in this encounter Care Teams Government Guard Relationship Specialty Start Date End Date Tom Hay MD PCP - General Internal Medicine 09/15/18 [facility] [place] [address] documented as of this encounter
--- OUTSIDE RECORDS SUMMARY | 2022-07-12 00:50 | XMS_ITS | Encounter Summary ---
:1965 Author Organization [facility] [place] [address] Care Team Providers Name Role Phone Tom Hay MD Primary Care Provider Reason for Visit Reason Onset Date Comments Medication Refill 11/29/2018 Encounter Details Date Type Department Care Team Description 11/29/2018 Refill Dermatology at [facility] Jacob Blair III, MD Psoriasis [address] [facility] [place] [address] [facility] RD-DERMATOLGY [phone] [place], [place] [address] (Wo rk) Social History Tobacco [...] Office Visit Plastic Surgery Peña Woodward MD [facility] PLASTIC SURGERY [place] [phone] ([facility]) 08/19/2022 Office Visit Podiatry Tom Titus DPM [place] [phone] ([facility]) 09/08/2022 Office Visit Internal Medicine Janay Hay MD [facility] GENERAL INTERNAL MEDICINE [place], [place] [address] ([facility]) 10/12/2059 Hospital Encounter Surgery Jim Hanley MD [facility] SPINE CENTER [place], [place] [address] ([facility]) [...] psoriasis documented in this encounter Care Teams Shoeblack Relationship Specialty Start Date End Date Tom Hay MD PCP - General Internal Medicine 09/15/18 [facility] GENER[place] [address] documented as of this encounter
--- OUTSIDE RECORDS SUMMARY | 2022-07-12 00:50 | XMS_ITS | Encounter Summary ---
:1965 Author Organization [facility] Address [facility] [address] [place] [address] Care Team Providers Name Role Phone Tom Hay MD Primary Care Provider Reason for Visit Reason Comments Medication Refill Encounter Details Date Type Department Care Team Description 01/13/2019 [place] Medicine [place] [facility] [place] [facility] [place] [address] General Internal Medicine [phone] [place], [place] [address] (Wo rk) Social History Tobacco [...] MD [facility] PLASTIC SURGERY [place] [phone] ( rk) 08/19/2022 Office Visit Podiatry Tom Titus DPM [place] [phone] ([facility]) 09/08/2022 Office Visit Internal Medicine Janay Hay MD [facility] GENERAL INTERNAL MEDICINE [place], [place] [address] ( rk) 10/12/2059 Hospital Encounter Surgery Jim Hanley MD [facility] SPINE CENTER [place], [place] [address] (Flores ordonez) Scheduled Procedures Name Priority Associated [...] documented as of this encounter Care Teams Fisher Eel Relationship Specialty Start Date End Date Tom Hay MD PCP - General General Internal Medicine 09/15/18 [facility] [place] [address] documented as of this encounter
--- OUTSIDE RECORDS SUMMARY | 2022-07-12 00:50 | XMS_ITS | Encounter Summary ---
:1965 Author Organization [facility] [place] [address] Care Team Providers Name Role Phone Tom Hay MD Primary Care Provider Reason for Visit Reason Onset Date Comments Medication Refill 12/29/2018 Encounter Details Date Type Department Care Team Description 12/29/2018 Refill Internal Medicine at Masood Hester [facility], unspecified [facility] asthma severity, [facility] D [place] [address] complicated, unspecified [phone] whether persist ent Social History Tobacco Use Types Packs/Day Years [...] this encounter Miscellaneous Notes Telephone Encounter - Masood Hester - 12/29/2018 1:02 PM EDT Patient changed pharmacy documented in this encounter Plan of Treatment Upcoming Encounters Date Type Specialty Care Team Description 08/06/2022 Office Visit Plastic Surgery Peña Woodward MD [facility] PLASTIC SURGERY [place], [place] [address] ([facility]) 08/19/2022 Office Visit Podiatry Tom Titus DPM [place], [place] [address] ([facility]) 09/08/2022 Office Visit Internal Medicine Janay Hay MD [facility] GENERAL INTERNAL MEDICINE [place], [place] [address] ( josé luis) 10/12/2059 Hospital Encounter Surgery Jim Hanley MD [facility] SPINE CENTER [place], [place] [address] ([place] ord[place]) Scheduled Procedures Name [...] as of this encounter Visit Diagnoses Diagnosis Asthma, unspecified asthma severity, uns pecified whether complicated, unspecified whether persistent documented in this encounter Care Teams Floor Layer Tile Relationship Specialty Start Date End Date Tom Hay MD PCP - General General Internal Medicine 09/15/18 [facility] GENERAL [place] [address] documented as of this encounter
--- OUTSIDE RECORDS SUMMARY | 2022-07-12 00:50 | XMS_ITS | Encounter Summary ---
:1965 Author Organization [facility] Address [address] [place] [address] Care Team Providers Name Role Phone Tom Hay MD Primary Care Provider Reason for Visit Reason Comments Shortness of Breath X 2 weeks, prednisone and le vofloxicin X 2 more days, went to [facility] Shoulder Pain Left shoulder pain X 2 days ago Encounter Details Date Type Department Care Team Description 03/09/2019 Office Visit Internal Medicine at [facility] Con trolled type 2 diabetes mellitus without complication, with long-term current use of insulin; [place] Type 2 diabetes mellitus without complic ation, with long-term current use of insulin; [facility] Sudhir vidal; [place] BELL At risk for falls; [place], [place] GASTROENTEROLOGY History of recent fall [id number] DEPT [phone] [place], [place] [address] Social History Tobacco Use Types [...] Sign Reading Time Taken Comments Blood Pressure 150/92 03/09/2019 2:43 PM EDT Pulse 106 03/09/2019 2:43 PM EDT Temperature 36.7 ??C (98.1 ??F) 03/09/2019 2:43 PM EDT Respiratory Rate 18 03/09/2019 2:43 PM EDT Oxygen Saturation 99% 03/09/2019 2:43 PM EDT Inhaled Oxygen Concentration - - Weight 88 kg (194 lb) 03/09/2019 2:43 PM EDT Height - - Body Mass Index 31.47 10/29/2018 3:07 PM EST documented in this encounter Progress Notes Dorcas Odom RN - 03/09/2019 3:00 PM EDT Patient stated that she felt like she was going to pass out at the front Vital signs stable SOB, and cough was dx with copd exacerbation- not getting anything up Denies chest pain Dizziness- no balance Vision changes- per patient thinks her dm is high Tried to drink water, but no food X 5 days Headache Sinus pressure Nasal congestion Patient states she had strep throat, 2 ear infections, and thrush and was treated prior Went back in for lungs hurting Blood glucose 324- patient states she hasn't eaten in 5 days Adri Adams MD - 03/09/2019 3:00 PM EDT The case was discussed at the time of the visit or immediately after the visit. The assessment and plan were formulated in discussion with me and I agree with them as documented. I have reviewed the history, physical exam, assessment and plan with the resident. Major issues discussed today: ED x 2 in past 2 weeks with uri symptoms/copd, treated with pred and azithro Second visit-> levaquin and steroids Continued congestion and dry cough, respirophasic pain, Fell 2 days ago, thinks it was secondary to decreased po intake, fell on shoulder N/v, mouth sores Reports temps to 103,4, today's temp is normal Diabetes, no glargine for months, glucose today 324 Schizophrenia Bipolar 2 PE: See Dr Joaquin's note for details of the exam Plan: Shoulder xray, Cbc, cmp, fluids Very difficult to accurately assess the location and degree of her pain Yamileth Joaquin MD - 03/09/2019 3:00 PM EDT Subjective: Patient ID: Emmanuelle Bynum is a 53 y.o. female w/PMH of COPD/asthma, HTN, bipolar chronic neck pain, and DM2 who presents to clinic after 2 visits to [facility] for shortness of breath and malaise now presenting with L shoulder and back pain after a fall. HPI Pt is a poor historian and is frequently tearful throughout the visit. [facility] records are scanned into chart. On 02/27, she was given prednisone and azithromycin for a possible COPD exacerbation at [facility]. Atthis time, she was having increased sputum production and cough. She completed this course then returned on 03/05 with ongoing symptoms and was treated with levaquin and longer steroid taper. CXR was clear at that time and urinalysis was benign. She was initially having a productive cough which has nowresolved. She reports having nausea vomiting from pain in her low back which has been present since her coughing fits started. She fell 2 days ago which she attributed to poor balance while going up stairs and hit her L shoulder into the railing. Since then her collarbone has been hurting. She denies hitting her head, LOC, vertigo, lightheadedness. Reports that she running a temp of 103 and 104 at home for the past 1.5 weeks but states that since it has been 102 at home which she reports as her normal temp. Denies chills, rigors, or sweats. Increased urinary frequency over the past week, waking her up from sleep several times. She stopped using her glargine and lispro since her visit with PCP in October as she thought that that was recommended at the time. She has continued using bydureon. Denies dysuria/hematuria. She reports having a hx ofkidney infection. Reports having blood sugars in the 300s at home which she has only checked in the past couple days. Hx of being on oxycodone and percocet for chronic neck pain. Today, she is requesting additional pain medication. SH: She smokes 10 cig per dayx12 years, denies ETOH, and smokes MJ and uses edibles nightly. Lives with a roommate who recently had a hip surgery and she has been taking care of him. ROS: Pertinent negatives and positives as noted above in the HPI. Objective: BP (!) 150/92 (BP Location (NBP): Left arm, Patient Position: Lying, BP Cuff Sizes: Adult (25-34 cm)) Pulse (!) 106 Temp 36.7 ??C (98.1 ??F) (Temporal) Resp 18 Wt 88 kg (194 lb) SpO2 99% BMI 31.47 kg/m?? Patient reported measures: Pain: Physical Health: Fall: PHQ-9 QUESTIONNAIRE SCORE ONLY (AMB) 10/29/2018 PHQ - 9 Score (Clinic) 9 (Mild Depression) Wt Readings from Last 3 Encounters: 03/09/19 88 kg (194 lb) 10/29/18 97.5 kg (215 lb) 10/01/18 100.4 kg (221 lb 6.4 oz) Physical Exam: General: Tearful, obese female HEENT: Normocephalic, atraumatic, EOMI, Dry MM Neck: Supple, nontender, no LAD. Heart: RRR, no murmurs, rubs or gallops. Lungs: Diminished breath sounds throughout, scattered wheezes, no crackles Abdomen: Soft, reported tenderness in some areas of the abdomen with palpation that were not presentconsistently, nondistended with normal bowel sounds in all four quadrants. Extremities: Without Edema MSK: L shoulder with superficial 1cm area bruising and tenderness with palpation of entire joint area, bicipital tendon and the length of the clavicle. No erythema, swelling, or warmth, Back is nontender to palpation down the length of the spine. Inconsistent tenderness is noted in paraspinal muscles of the L side Neurological: No focal deficits, A&Ox3, Ambulatory Skin: Warm, dry, intact without rashes POC Glucose 324 today Assessment and Plan: Emmanuelle Bynum is a 53 y.o. female w/PMH of COPD/asthma, HTN, bipolar chronic neck pain, and DM2 who presents to clinic after 2 visits to [facility] for shortness of breath and malaise now presenting with L shoulder and back pain after a fall. Dehydration L clavicular pain Uncontrolled DM2 - Pt is a poor historian and it is challenging to accurately assess the severity and location of herpain, but in the setting of recent fall it would be reasonable to start with shoulder XR. She also has elevated blood sugars and may have HHS in the setting of noncompliance with insulin causing her frequent urination. Recent urinalysis is negative for infection. I also suspect that she has not been having a true fever as she has not had chills, sweats or rigors and reports her normal body temp as 102. She is afebrile in clinic today - Attempted to obtain labs and place IV for fluids, however patient pulled back and refused to have this placed without having XR first - XR of shoulder and clavicle ordered - CBC, CMP ordered - Fluids if pt is amenable - As she presented at the end of clinic day, will continue additional workup and eval at the walk inclinic Yamileth Joaquin MD PGY-3, Internal Medicine [facility] documented in this encounter Plan of Treatment Upcoming Encounters Date Type Specialty Care Team Description 08/06/2022 Office Visit Plastic Surgery Peña Woodward MD [facility] PLASTIC SURGERY [place], [place] [address] (Wo rk) 08/19/2022 Office Visit Podiatry Tom Titus, [place], [place] [address] (Wo rk) 09/08/2022 Office Visit Internal Medicine Janay Hay MD [facility] GENERAL INTERNAL MEDICINE [place], [place] [address] (Wo rk) 10/12/2059 Hospital Encounter Surgery Jim Hanley MD [facility] DR SPINE CENTER [place], [place] [address] (Wo rk) Scheduled Procedures Name [...] Procedure Name Priority Date/Time Associated Comments Diagnosis HEMOGRAM STAT 03/09/2019 5:09 PM Controlled type 2 Resu lts for this EDT diabetes mellitus procedure are in without the results complication, with section. long-term current use of insulin DIFFERENTIAL, STAT 03/09/2019 5:09 PM Controlled type 2 Res ults for this AUTOMATED EDT diabetes mellitus procedure are in without the results complication, with section. long-term current use of insulin CBC (WITH DIFF) STAT 03/09/2019 5:09 PM Controlled type 2 EDT diabetes mellitus without complication, with long-term current use of insulin COMPREHENSIVE STAT 03/09/2019 5:09 PM Type 2 diabetes Resul ts for this METABOLIC PANEL EDT mellitus without procedur e are in (NON-FASTING) complication, with the resu lts long-term current section. use of insulin POCT FINGERSTICK Routine 03/09/2019 3:00 PM Controlled type 2 Results for this GLUCOSE EDT diabetes mellitus procedure are in without the results complication, with section. long-term current use of insulin documented in this encounter Results (ABNORMAL) Differential, Automated (03/09/2019 5:09 PM EDT) [facility] gist Method Time Signature Neutrophils % 82.3 % [facility] Neutr Abs (ANC) 12.00 (H) 1.70 - [facility] 6.10 [facility] x10(3)/[facility] LABORATORY Lymphocytes % 10.7 % [facility] Lymphocytes Abs 1.6 0.9 - 3.2 [facility] x10(3)/[facility] LABORATORY Monocytes % 2.2 % [facility] Monocyte Abs 0.3 0.3 - 0.9 [facility] x10(3)/[facility] LABORATORY Eosinophils % 0.0 % [facility] Eosinophils Abs 0.0 0.0 - 0.4 [facility] x10(3)/[facility] LABORATORY Basophils % 1.0 % [facility] Basophils Abs 0.2 (H) 0.0 - 0.1 [facility] x10(3)/[facility] LABORATORY Immature Gran % 3.80 % [facility] Comment: Immature granulocytes(IG's)percentage an d absolute count will include metamyelocytes, myelocytes, and promyelo cytes. Blood smears from CBCs yielding IG's will be scanned manually for concor dance. If this scan disagrees with the automated IG or if promyelocytes are not ed, a manual differential will be performed. [place] Gran Abs 0.56 (H) 0.00 - 0.04 x10(3)/[facility] LABORATORY Specimen Anatomical Collection Method Collection Time Receive d Time (Source) Location / / Volume Laterality Blood specimen 03/09/2019 5:09 PM 019 5:18 (specimen) EDT PM EDT Resulting Agency Comment Spec In Lab Yamileth Joaquin MD HEMATOLOGY ORDERABLES Performing Organization Address City/State/[place] [address] (ABNORMAL) Hemogram (03/09/2019 5:09 PM EDT) Analysis Performed At Patho logist Time Signature WBC 14.6 (H) 4.0 - 9.5 [facility] x10(3)/[facility] LABORATORY RBC 4.83 4.00 - [facility] 5.21 [facility] x10(6)/[facility] LABORATORY Hemoglobin 14.3 11.7 - [facility] 15.5 gm/dL [facility]ORATORY Hematocrit 43.2 35.7 - [facility] 45.8 % [facility] MCV 89.4 82.6 - [facility] 94.4 fL [facility] MCH 29.6 27.1 - [facility] 32.0 pg [facility]ORY MCHC 33.1 31.7 - [facility] 35.0 gm/dL [facility] Platelets 337 145 - 357 [facility] x10(3)/[facility] LABORATORY RDWSD 44.4 37.0 - [facility] 46.0 [facility] LABORATORY RDWCV 13.5 11.5 - [facility] 14.1 % [facility] LABORATORY MPV 10.4 7.6 - 12.9 [facility] LABORATORY nRBC % Auto 0.0 % [facility] nRBC Abs Auto 0.000 0.000 - [facility] 0.000 [facility] x10(3)/[facility] LABORATORY Specimen Anatomical Collection Method Collection Time Receive d Time (Source) Location / / Volume Laterality Blood specimen 03/09/2019 5:09 PM 019 5:18 (specimen) EDT PM EDT Resulting Agency Comment Spec In Lab Yamileth Joaquin MD HEMATOLOGY ORDERABLES Performing Organization Address City/State/[place] [address] (ABNORMAL) Comprehensive metabolic panel (non-fasting) (03/09/2019 5:09 PM EDT) P athologist Signature Glucose Lvl 401 (H) 65 - 199 [facility] mg/dL [facility] Comment: Diabetes: >=200 mg/dL plus symp toms BUN 11 8 - 18 mg/dL [facility] Creatinine 0.86 0.70 - 1.20 mg/dL [facility] Sodium 139 135 - 145 mmol/L [facility] Potassium 4.0 3.5 - 5.0 mmol/L [facility] Comment: Please note: ??Patients with WBC >100,00 0 may have falsely elevated Potassium levels. ??For accurate Potassium quantif ication in these patients send serum separator tube (gold top) for subsequent determinations. ??Contact the Clinical Chemistry Laboratory if there are any qu estions. Chloride 101 98 - 107 mmol/L [facility] CO2 21 (L) 22 - 31 mmol/L [facility] Anion Gap 17 (H) 5 - 15 mmol/L [facility] Calcium 8.6 8.5 - 10.5 mg/dL [facility] Total Protein 6.5 6.1 - 8.0 gm/dL [facility] Albumin 3.7 3.2 - 5.2 gm/dL [facility] AST 10 0 - 30 unit/L [facility] ALT 15 0 - 30 unit/L [facility] Alk Phos 66 40 - 104 unit/L [facility] Total Bilirubin <0.2 (L) 0.2 - 1.3 mg/dL [facility] Estimated GFR 78 >=60 mL/min/1.73 m?? [facility] Comment: The eGFR was calculated using the CKD-EP I equation. As with all creatinine based estimates of kidney function, eGFR values calculated with the CKD-EPI equation are not accurate in patients wi th acute kidney failure, extremes of body mass or the acutely ill. http://[employer]/MUSCOGEEnkf eGFR 91 >=60 mL/min/1.73 m?? [facility] Comment: The eGFR was calculated using the CKD-EP I equation. As with all creatinine based estimates of kidney function, eGFR values calculated with the CKD-EPI equation are not accurate in patients wi th acute kidney failure, extremes of body mass or the acutely ill. http://[employer]COGE[employer]kf Specimen Anatomical Collection Method Collection Time Receive d Time (Source) Location / / Volume Laterality Blood specimen 03/09/2019 5:09 PM 019 5:18 (specimen) EDT PM EDT Resulting Agency Comment Spec In Lab Adri Adams MD CHEMISTRY ORDERABLES Performing Organization Address City/State/[place] [address] XR Clavicle Left (Generic) (03/09/2019 5:00 PM [...] e number below. ? Electronically signed by: Julio C nevarez [facility] ([phone]), at 03/09/2019 5:04 PM Narrative 03/09/2019 5:04 PM EDT EXAMINATION: XR [...] contact e number below. Electronically signed by: Julio C nevarez [facility] ([phone]), at 03/09/2019 5:04 PM Adri Adams MD IMG DX ORDERABLES XR Shoulder Left (Generic) (03/09/2019 5:00 PM [...] e number below. ? Electronically signed by: Julio C nevarez [facility] ([phone]), at 03/09/2019 5:03 PM Narrative 03/09/2019 5:03 PM EDT EXAMINATION: XR [...] contact e number below. Electronically signed by: Julio C nevarez, [facility] ([phone]), at 03/09/2019 5:03 PM Adri Adams MD IMG DX ORDERABLES (ABNORMAL) POCT Fingerstick Glucose (03/09/2019 3:00 PM EDT) P athologist Signature POC Glucose 324 (A) 60 - 199 mg/dl Specimen (Source) Anatomical Collection Method Collection Time Re ceived Time Location / / Volume Laterality 03/09/2019 3:00 PM EDT Norbert Ross MD POINT OF CARE TEST ORDERABLE S documented in this encounter Visit Diagnoses Diagnosis Controlled type 2 diabetes mellitus with out complication, with long-term current use of insulin Type 2 diabetes mellitus without complic ation, with long-term current use of insulin Dehydration At risk for falls Personal history of fall History of recent fall History of recent fall History of recent fall documented in this encounter Care Teams Hris Developer Relationship Specialty Start Date End Date Tom Hay MD PCP - General General Internal Medicine 09/15/18 [facility] [place] [address] documented as of this encounter
--- OUTSIDE RECORDS SUMMARY | 2022-07-12 00:50 | XMS_ITS | Encounter Summary ---
:1965 Author Organization [facility] Address [facility] [place] [address] Care Team Providers Name Role Phone Tom Hay MD Primary Care Provider Encounter Details Date Type Department Care Team Description 07/15/2019 Orders Only Internal Medicine at [facility] Tom Hay MD [facility] [place] [address] GENERAL INTERNAL [phone] MEDICINE [place], [place] [address] (Wo rk) Social History Tobacco [...] [facility] PLASTIC SURGERY [place] [address] ( rk) 08/19/2022 Office Visit Podiatry Tom Titus DPM [place], [place] [address] (Wo rk) 09/08/2022 Office Visit Internal Medicine Janay Hay MD [facility] GENERAL INTERNAL MEDICINE [place], [place] [address] (Wo rk) 10/12/2059 Hospital Encounter Surgery Jim Hanley MD [facility] SPINE CENTER [place], [place] [address] (Wo rk) Scheduled Procedures Name [...] on filedocumented in this encounter Care Teams Assistant Account Manager Relationship Specialty Start Date End Date Tom Hay MD PCP - General General Internal Medicine 09/15/18 [facility] [place] [address] documented as of this encounter
--- OUTSIDE RECORDS SUMMARY | 2022-07-12 00:50 | XMS_ITS | Encounter Summary ---
:1965 Author Organization [facility] [place] [address] Care Team Providers Name Role Phone Tom Hay MD Primary Care Provider Reason for Visit Reason Onset Date Comments Medication Refill 02/28/2019 Encounter Details Date Type Department Care Team Description 02/28/2019 Refill Dermatology at [facility] Jacob Blair III, MD Psoriasis [address] [facility] [place] [address] [facility] [address] [address]-DERMATOLGY [phone] [place], [place] [address] (Wo rk) Social History Tobacco [...] MD [facility] PLASTIC SURGERY [place] [id number] ([facility]) 08/19/2022 Office Visit Podiatry Tom Titus DPM [place] [phone] ([facility]) 09/08/2022 Office Visit Internal Medicine Janay Hay MD [facility] GENERAL INTERNAL MEDICINE [place], [place] [address] ([facility]) 10/12/2059 Hospital Encounter Surgery Jim Hanley MD [facility] SPINE CENTER [place], [place] [address] ([facility]) Scheduled Procedures Name Priority Associated Diagnoses Date/Time [...] psoriasis documented in this encounter Care Teams English And Reading Instructor Relationship Specialty Start Date End Date Tom Hay MD PCP - General Internal Medicine 09/15/18 [facility] GENERAL [place] [address] documented as of this encounter
--- OUTSIDE RECORDS SUMMARY | 2022-07-12 00:51 | XMS_ITS | Encounter Summary ---
:1965 Author Organization [facility] Address [facility] [place] [address] Care Team Providers Name Role Phone Tom Hay MD Primary Care Provider Encounter Details Date Type Department Care Team Description 11/10/2018 Telephone Internal Medicine at [facility] Manuel Brown [facility] [place] [address] Social History Tobacco Use Types Packs/Day [...] MD [facility] PLASTIC SURGERY [place], [place] [address] (Wo rk) 08/19/2022 Office Visit Podiatry Tom Titus DPM [place], [place] [address] (Wo rk) 09/08/2022 Office Visit Internal Medicine Janay Hay MD [facility] GENERAL INTERNAL MEDICINE [place], [place] [address] (Wo rk) 10/12/2059 Hospital Encounter Surgery Jim Hanley MD [facility] SPINE CENTER [place], [place] [address] (Wo rk) Scheduled Procedures Name [...] on filedocumented in this encounter Care Teams Back Pad Inspector Relationship Specialty Start Date End Date Tom Hay MD PCP - General Internal Medicine 09/15/18 [facility] [place] [address] documented as of this encounter
--- OUTSIDE RECORDS SUMMARY | 2022-07-12 00:51 | XMS_ITS | Encounter Summary ---
:1965 Author Organization [facility] Address [address] [place] [address] Care Team Providers Name Role Phone Tom Hay MD Primary Care Provider Reason for Visit Reason Comments Medication Refill Encounter Details Date Type Department Care Team Description 2018 Refill Internal Medicine at [facility] [place] [facility] [place] [address] General Internal Medicine [phone] [place], [place] [address] (Wo rk) Social History Tobacco Use Types Packs/Day Years Used Date Current Every Day Smoker Cigarettes 1 13 Smokeless Tobacco: Never Used Alcohol Use [...] MD [facility] PLASTIC SURGERY [place] [address] ( rk) 08/19/2022 Office Visit Podiatry Tom Titus DPM [place], [place] [address] (Wo rk) 09/08/2022 Office Visit Internal Medicine Janay Hay MD [facility] GENERAL INTERNAL MEDICINE [place], [place] [address] (Wo rk) 10/12/2059 Hospital Encounter Surgery Jim Hanley MD [facility] SPINE CENTER [place], [place] [address] (Wo rk) Scheduled Procedures Name [...] filedocumented in this encounter Care Teams Manager Clinical Applications Relationship Specialty Start Date End Date Tom Hay MD PCP - General General Internal Medicine 09/15/18 [facility] GENERAL [place] [address] documented as of this encounter
--- OUTSIDE RECORDS SUMMARY | 2022-07-12 00:51 | XMS_ITS | Encounter Summary ---
:1965 Author Organization [facility] Address [facility] [address] [place] [id number] Care Team Providers Name Role Phone Tom Hay MD Primary Care Provider Reason for Visit Reason Comments Medication Refill Encounter Details Date Type Department Care Team Description 09/22/2018 Refill Internal Medicine at [place] PA Asthma, unspecified [facility] asthma severity, [facility] General Internal unspe cified whether Drive Medicine complicated, [place] [id number] [place] [address] unspecified whether [phone] (Wo rk) persistent Social History Tobacco Use Types Packs/Day Years [...] MD [facility] PLASTIC SURGERY [place] [address] ([facility]) 08/19/2022 Office Visit Podiatry Tom Titus DPM [place] [phone] ([facility]) 09/08/2022 Office Visit Internal Medicine Janay Hay MD [facility] GENERAL INTERNAL MEDICINE [place] [address] ([facility]) 10/12/2059 Hospital Encounter Surgery Jim Hanley MD [facility] SPINE CENTER [place], [place] [address] ([facility]) Scheduled Procedures Name Priority Associated Diagnoses Date/Time @ARTHRODESIS, POSTERIOR CERVICAL Cervical spondy l[facility] myelopathy Neck pain Pseudoarthrosis of [...] uns pecified whether complicated, unspecified whether persistent Myeloradiculopathy Unspecified nerve root and plexus disord er documented in this encounter Additional Health Concerns Infection Onset Date Last Indicated Resolved Time Rule Out COVID-19 02/13/2021 02/13/2021 02/13/2021 3:1 7 PM EDT Rule Out C. difficile 02/13/2021 02/13/2021 02/13/2021 9:03 PM EDT documented as of this encounter Care Teams [employer] Retailer Sales Consultant Relationship Specialty Start Date End Date Tom Hay MD PCP - General General Internal Medicine 09/15/18 [facility] [place] [address] documented as of this encounter
--- OUTSIDE RECORDS SUMMARY | 2022-07-12 00:51 | XMS_ITS | Encounter Summary ---
:1965 Author Organization [facility] [place] [address] Care Team Providers Name Role Phone [place] Primary Care Provider Reason for Visit Reason Onset Date Comments Prior Authorization 08/03/2018 methocarbamol 750 mg tablet Encounter Details Date Type Department Care Team Description 08/03/2018 Telephone Internal Medicine at [place], Malik Vasques Authorization [facility] (methocarbamol 750 mg [facility] tablet) [place] [address] Social History Tobacco Use Types Packs/Day [...] this encounter Miscellaneous Notes Telephone Encounter - Selene Sanchez CMA - 08/05/2018 9:27 AM EDT Medication Prior Authorization for Primary [place] [address] Approve: X Start Date: 08/03/2018 End Date: 10/11/2019 Case/Reference #: [id number] See Approval Letter in scanned documents. Telephone Encounter - [place] Ana HOLDEN Lawson - 08/03/2018 12:50 PM EDT Medication Prior Authorization for Primary [place] [address] Subscriber Insurance: [email or web address] Insurance Phone #: Sent via: [employer] Jolly/Fax#: [id number] Physician: YUNIOR Anton Medication Requested: methocarbamol (Robaxin) Strength: 750 mg tablet Frequency: Take 1 tablet by mouth 4 times daily. Disp.: 120 Refills: 0 Currently taking: yes If yes, how lon11/05/10 Diagnosis for this medication: Cervical Radicular Pain ICD-10 code: M54.12 Prior medications trialed in this patient: Medication: cyclobenzaprine Approx Dates: 11/05/10-09/20/13 Outcome/Adverse Reactions: Inadequate response Medication: ibuprofen Approx Dates: 11/05/10- Outcome/Adverse Reactions: Inadequate response by itself. Medication: naproxen Approx Dates: 01/22/11-02/10/17 Outcome/Adverse Reactions: Inadequate response documented in this encounter Plan of Treatment Upcoming Encounters Date Type Specialty Care Team Description 08/06/2022 Office Visit Plastic Surgery Peña Woodward MD [facility] PLASTIC SURGERY [place], [place] [address] (Wo rk) 08/19/2022 Office Visit Podiatry Tom Titus DPM [place], [place] [address] (Wo rk) 09/08/2022 Office Visit Internal Medicine Janay Hay MD [facility] GENERAL INTERNAL MEDICINE [place], [place] [address] (Wo rk) 10/12/2059 Hospital Encounter Surgery Jmi Hanley MD [facility] SPINE CENTER [place], [place] [address] (Wo rk) Scheduled Procedures [...] filedocumented in this encounter Care Teams Manager Ed Relationship Specialty Start Date End Date [place] PA PCP - General General Internal Medicine 01/26/[address] [place] [address] [place] [address] documented as of this encounter
--- OUTSIDE RECORDS SUMMARY | 2022-07-12 00:51 | XMS_ITS | Encounter Summary ---
:1965 Author Organization [facility] [place] [address] Care Team Providers Name Role Phone [place] Primary Care Provider Reason for Visit Reason Onset Date Comments Medication Refill 08/03/2018 Encounter Details Date Type Department Care Team Description 08/03/2018 Refill Internal Medicine at [place] Controlled type 2 diabetes mellitus without complication, unspecified whether correction insulin use; [facility] [place] [address] Social History Tobacco Use Types Packs/Day [...] MD [facility] PLASTIC SURGERY [place], [place] [address] (Wo rk) 08/19/2022 Office Visit Podiatry Tom Titus DPM [place], [place] 0[address] (Wo rk) 09/08/2022 Office Visit Internal Medicine Janay Hay MD [facility] GENERAL INTERNAL MEDICINE [place], [place] [address] (Wo rk) 10/12/2059 Hospital Encounter Surgery Jim Hanley MD [facility] SPINE CENTER [place], [place] [address] (Wo rk) Scheduled Procedures Name [...] mellitus with out complication, unspecified whether termite helper insulin use Cervical radicular pain Brachial neuritis or radiculitis nos documented in this encounter Care Teams Edge Setter Relationship Specialty Start Date End Date [place] PA PCP - General Internal Medicine 01/26/[address] [place] [address] [place] [address] documented as of this encounter
--- OUTSIDE RECORDS SUMMARY | 2022-07-12 00:51 | XMS_ITS | Encounter Summary ---
:1965 [address] [facility] [place] [address] Care Team Providers Name Role Phone [place] Primary Care Provider Reason for Visit Reason Onset Date Comments Medication Problem 09/07/2018 Pt has not been able to get DM testing supplies Encounter Details Date Type Department Care Team Description 09/07/2018 Refill Internal Medicine at [facility] Brit Dover, RN [facility] [place] [address] Social History Tobacco Use Types Packs/Day [...] this encounter Miscellaneous Notes Telephone Encounter - Brit Dover RN - 09/07/2018 2:45 PM EST Reason for call: Pt can't get diabetic supplies [facility] software test manager, Nicole, called to say she's been trying to get proper paperwork in order for pt to get diabetic testing supplies. She says this has been going on for months, and pt has not been able to treat diabetes, as she has no lancets/strips to use for testing. Nicole wonders if re-ordering lancets to match in number to testing strips will help. I will pend order for lancets to read 4 times a day, instead of 3. Nicole says PCP will have to fill out a new DWO form, which she will fax again. Nicole's number is [phone]. She said pt was recently hospitalized because she couldn't monitor sugar. documented in this encounter Plan of Treatment Upcoming Encounters Date Type Specialty Care Team Description 08/06/2022 Office Visit Plastic Surgery Peña Woodward MD [facility] PLASTIC SURGERY [place], [place] [address] (Wo rk) 08/19/2022 Office Visit Podiatry Tom Titus DPM [place], [place] [address] (Wo rk) 09/08/2022 Office Visit Internal Medicine Janay Hay MD [facility] GENERAL INTERNAL MEDICINE [place], [place] [address] ( rk) 10/12/2059 Hospital Encounter Surgery Jim Hanley MD [facility] SPINE CENTER [place], [place] [address] (Wo rk) Scheduled Procedures Name [...] on filedocumented in this encounter Care Teams Merchandise Appraiser Relationship Specialty Start Date End Date [place] PA PCP - General General Internal Medicine 01/26/18 8 [facility] [place] [address] documented as of this encounter
--- OUTSIDE RECORDS SUMMARY | 2022-07-12 00:51 | XMS_ITS | Encounter Summary ---
:1965 Author Organization [facility] Address [facility] [place] [address] Care Team Providers Name Role Phone Tom Hay MD Primary Care Provider Reason for Visit Reason Comments Medication Refill Encounter Details Date Type Department Care Team Description 10/24/2018 Refill Internal Medicine at [facility] [place] PA [facility] [place] [address] General Internal Medicine [phone] [place], [place] [address] (Wo rk) Social History Tobacco [...] MD [facility] PLASTIC SURGERY [place] [address] ( rk) 08/19/2022 Office Visit Podiatry Tom Titus DPM [place], [place] [address] (Wo rk) 09/08/2022 Office Visit Internal Medicine Janay Hay MD [facility] GENERAL INTERNAL MEDICINE [place], [place] [address] (Wo rk) 10/12/2059 Hospital Encounter Surgery Jim Hanley MD [facility] SPINE CENTER [place], [place] [address] (Wo rk) Scheduled Procedures Name [...] on filedocumented in this encounter Care Teams Branding Machine Tender Relationship Specialty Start Date End Date Tom Hay MD PCP - General General Internal Medicine 09/15/18 [facility] GENERAL [place] [address] documented as of this encounter
--- OUTSIDE RECORDS SUMMARY | 2022-07-12 00:51 | XMS_ITS | Encounter Summary ---
:1965 Author Organization [facility] Address [facility] [place] [address] Care Team Providers Name Role Phone [place] Primary Care Provider Reason for Visit Reason Onset Date Comments Pharmacy Call 08/27/2018 Encounter Details Date Type Department Care Team Description 08/27/2018 Telephone Internal Medicine at [facility] Jenny Balderrama Pharmacy Call [facility] Kevin [address] [place] [address] Social History Tobacco Use Types Packs/Day [...] this encounter Miscellaneous Notes Telephone Encounter - Caitlin Martinez RN - 08/27/2018 3:21 PM EST Called pharmacist back and let her know we have form completed and will fax over. Explained that Kathia Lawrence APRN had to complete in Mook's absence. Also let her know we would fax over directions for sliding scale insulin so she can give to Guerda. Telephone Encounter - Jenny Balderrama - 08/27/2018 2:38 PM EST Message: pharmacy called and states the DWO is not accurate and they need to speak with a nurse or provider to discuss what is wrong and what they need and why. Please call back Caller and relationship (if other than patient-full name): pharmacy- Best time to call back: any Ok to leave a message: [] Ok to send my- message: [] Offered Appointment: MA/Nurse contacted via: Message: y Call: y Pager: n documented in this encounter Plan of Treatment Upcoming Encounters Date Type Specialty Care Team Description 08/06/2022 Office Visit Plastic Surgery Peña Woodward MD [facility] PLASTIC SURGERY [place] [address] (Wo rk) 08/19/2022 Office Visit Podiatry Tom Titus DPM [facility] [address] [place], [place] [address] (Wo rk) 09/08/2022 Office Visit Internal Medicine Janay Hay MD [facility] GENERAL INTERNAL MEDICINE [place], [place] [address] (Flores ordonez) 10/12/2059 Hospital Encounter Surgery Jim Hanley MD [facility] SPINE CENTER [place], [place] [address] (Wo josé luis) Scheduled Procedures Name Priority [...] on filedocumented in this encounter Care Teams Avaya Engineer Relationship Specialty Start Date End Date [place] PA PCP - General General Internal Medicine 01/26/18 8 [facility] [place] [address] documented as of this encounter
--- OUTSIDE RECORDS SUMMARY | 2022-07-12 00:51 | XMS_ITS | Encounter Summary ---
:1965 Author Organization [facility] [place] [address] Care Team Providers Name Role Phone [place] Primary Care Provider Reason for Referral Consultation (Routine) - Closed Specialty Diagnoses / Procedures Referred By Contact Refer red To Contact Orthopaedics Diagnoses Cervical disc protrusion, stenosis/ MRI 08/04/18 in eD[facility] [place] PA [facility] [place] [address] [place] [address] Referral ID Status Reason Start Date Expiration Date Visits V isits Requested Authorized [id number] Closed Specialty 08/25/2018 08/25/2019 1 1 Service Requested Reason for Visit Reason Comments Cough fever, chest congestion, for last 3 weeks Encounter Details Date Type Department Care Team Description 08/25/2018 Office Visit Internal Medicine at [place] M oderate persistent asthma with acute exacerbation; [facility] PA Cervical disc displacement [facility] [place], [place] General Internal [address] Medicine [phone] [place] [address] Social History Tobacco Use Types Packs/Day Years [...] Sign Reading Time Taken Comments Blood Pressure 143/94 08/25/2018 10:43 AM EST Pulse 102 08/25/2018 10:43 AM EST Temperature 36.9 ??C (98.4 ??F) 08/25/2018 10:43 AM EST Respiratory Rate 20 08/25/2018 10:43 AM EST Oxygen Saturation 97% 08/25/2018 10:43 AM EST Inhaled Oxygen Concentration - - Weight 98.6 kg (217 lb 6.4 oz) 08/25/2018 10:43 AM EST Height 167.2 cm (5' 5.83) 08/25/2018 10:43 AM EST Body Mass Index 35.27 08/25/2018 10:43 AM EST documented in this encounter Progress Notes [place] PA - 08/25/2018 10:40 AM EST Subjective: Emmanuelle Bynum, emmett 52 y.o.??female??with a history of uncontrolled asthma, COPD, DMT2, bipolar II, schizophrenia, depression, mild leukocytosis, HTN, HLD, hypothyroidism, SEB, vitamin D def, and multiple musculoskeletal issues including cervical radiculitis, carpal tunnel, and polyarthralgia to name a few, is here today for 3 week history of non-productive cough with associated post- tussive emesis, sore throat, and diarrhea. Symptoms started after being seen in a local hospital for her neck pain.Over the past 3 weeks, in conjunction with her aforementioned symptoms, she had sinus pressure and fever (tmax 103.7). She continues to worsen and is looking for abx today. When she was evaluated at her local hospital, and MRI of her neck and spine were performed due to her chronic neck pain and peripheral radiculopathy. She brought the MRI CD in with her and states that it showed multiple protruding discs in her neck. It was recommended that she see the spine center urgently for surgical evaluation, so she would like a referral today. Review of Systems Constitutional: Negative for activity change, appetite change, chills, fatigue and fever. HENT: Positive for congestion and sore throat. Negative for rhinorrhea, sinus pressure, sneezing andvoice change. Respiratory: Positive for cough. Negative for chest tightness and shortness of breath. Cardiovascular: Negative for chest pain and palpitations. Gastrointestinal: Positive for diarrhea, nausea and vomiting. Genitourinary: Negative. Musculoskeletal: Positive for neck pain. Negative for arthralgias, back pain, gait problem, joint swelling, myalgias and neck stiffness. Skin: Negative for color change and rash. Neurological: Negative for weakness, numbness and headaches. Hematological: Negative for adenopathy. Family History Problem Relation Age of Onset ??? Migraines Mother ??? Macular Degeneration Mother ??? Alzheimer Disease Mother ??? Migraines Father ??? Migraines Brother ??? Migraines Daughter ??? Amblyopia Neg Hx ??? Blindness Neg Hx ??? Cancer Neg Hx ??? Cataracts Neg Hx ??? Diabetes Neg Hx ??? Glaucoma Neg Hx ??? Hypertension Neg Hx ??? Retinal Detachment Neg Hx ??? Strabismus Neg Hx ??? Stroke Neg Hx ??? Thyroid Disease Neg Hx ??? Heart Disease Neg Hx Social History Tobacco Use ??? Smoking status: Current Every Day Smoker Packs/day: 1.00 Years: 13.00 Pack years: 13.00 Types: Cigarettes ??? Smokeless tobacco: Never Used Substance Use Topics ??? Alcohol use: No Alcohol/week: 0.0 oz ??? Drug use: Yes Types: Marijuana Comment: does not have card yet.. Objective: BP (!) 143/94 (BP Location (NBP): Right arm, Patient Position: Sitting, BP Cuff Sizes: Adult (25-34 cm)) Pulse (!) 102 Temp 36.9 ??C (98.4 ??F) (Oral) Resp 20 Ht 167.2 cm (5' 5.83) Wt 98.6 kg (217 lb 6.4 oz) SpO2 97% BMI 35.27 kg/m?? BP Readings from Last 3 Encounters: 08/25/18 (!) 143/94 06/15/18 152/90 04/20/18 153/79 Wt Readings from Last 3 Encounters: 08/25/18 98.6 kg (217 lb 6.4 oz) 06/15/18 99.8 kg (220 lb) 06/15/18 100.4 kg (221 lb 6.4 oz) Physical Exam Constitutional: She is oriented to person, place, and time. She appears well- developed and well-nourished. HENT: Head: Normocephalic and atraumatic. Right Ear: External ear normal. Left Ear: External ear normal. Nose: Nose normal. Mouth/Throat: Oropharynx is clear and moist. Maxillary and frontal sinuses without pain to percussion bilaterally. Leaning forward does not exacerbate fullness of sinuses.Turbinates erythematous and edematous bilaterally with thick mucus present.No visible facial swelling. Posterior pharyngeal wall erythematous without edema or exudate. Cardiovascular: Normal rate, regular rhythm and normal heart sounds. Pulmonary/Chest: Effort normal. No respiratory distress. She has wheezes. She has no rales. Bilateral expiratory wheezes heard equally across all lung contreras. Lymphadenopathy: She has no cervical adenopathy. Neurological: She is alert and oriented to person, place, and time. Skin: Skin is warm and dry. Psychiatric: She has a normal mood and affect. Tests/Imaging/Procedures 1) None performed today. Assessment and Plan: 1. Moderate persistent asthma with acute exacerbation Likely asthma exacerbation triggered by recent URI. Will treat with a zpack and prednisone taper. FUif no improvement or if any new or worsening symptoms. 2. Cervical disc displacement Referral to Spine Center made. She will bring the MRI CD to the medical records department today. - An After Visit Summary was printed and given to the patient. - Emmanuelle was given the necessary information on her condition and instructed to return to clinic if symptoms continue or worsen. documented in this encounter Plan of Treatment Upcoming Encounters Date Type Specialty Care Team Description 08/06/2022 Office Visit Plastic Surgery Peña Woodward MD [facility] PLASTIC SURGERY [place] [address] ([facility]) 08/19/2022 Office Visit Podiatry Tom Titus DPM [place] [address] ([facility]) 09/08/2022 Office Visit Internal Medicine Janay Hay MD [facility] GENERAL INTERNAL MEDICINE [place], [place] [address] ([facility]) 10/12/2059 Hospital Encounter Surgery Jim Hanley MD [facility] SPINE CENTER [place], [place] [address] (Flores ordonez) Scheduled Procedures Name [...] Referral to Spine Outpatient Referral Routine Cervical disc Or dered: Center displacement 08/25/2018 documented as of this encounter Visit Diagnoses Diagnosis Moderate persistent asthma with acute ex acerbation Cervical disc displacement Displacement of cervical intervertebral disc without myelopathy documented in this encounter Care Teams Processes Chemical Design Engineer Relationship Specialty Start Date End Date [place] PA PCP - General General Internal Medicine 01/26/18 8 [facility] [place] [address] documented as of this encounter
--- OUTSIDE RECORDS SUMMARY | 2022-07-12 00:51 | XMS_ITS | Encounter Summary ---
:1965 Author Organization [facility] [place] [address] Care Team Providers Name Role Phone [place] Primary Care Provider Reason for Visit Reason Comments Medication Refill Encounter Details Date Type Department Care Team Description 08/26/2018 Refill Internal Medicine at [facility] [place] PA [facility] [place] [address] General Internal Medicine [phone] [place] [address] (Wo rk) Social History Tobacco Use Types [...] Woodward MD [facility] PLASTIC SURGERY [place] [phone] ([facility]) 08/19/2022 Office Visit Podiatry Tom Titus DPM [place], [place] [address] ([facility]) 09/08/2022 Office Visit Internal Medicine Janay Hay MD [facility] GENERAL INTERNAL MEDICINE [place], [place] [address] ( rk) 10/12/2059 Hospital Encounter Surgery Jim Hanley MD [facility] SPINE CENTER [place], [place] [address] (Wo josé luis) Scheduled Procedures [...] giddiness documented in this encounter Care Teams Personnel Officer Relationship Specialty Start Date End Date [place] PA PCP - General General Internal Medicine 01/26/[address] [place] [address] [place] [address] documented as of this encounter
--- OUTSIDE RECORDS SUMMARY | 2022-07-12 00:51 | XMS_ITS | Encounter Summary ---
:1965 Author Organization [facility] Address [facility] [place] [address] Care Team Providers Name Role Phone Tom Hay MD Primary Care Provider Reason for Visit Reason Comments Medication Refill Encounter Details Date Type Department Care Team Description 09/23/2018 Refill Internal Medicine at [facility] [place] [address] General Internal Medicine [phone] [place], [place] [address] (Wo rk) Social History Tobacco [...] MD [facility] PLASTIC SURGERY [place] [address] ( rk) 08/19/2022 Office Visit Podiatry Tom Titus DPM [place], [place] [address] (Wo rk) 09/08/2022 Office Visit Internal Medicine Janay Hay MD [facility] GENERAL INTERNAL MEDICINE [place], [place] [address] (Wo rk) 10/12/2059 Hospital Encounter Surgery Jim Hanley MD [facility] SPINE CENTER [place], [place] [address] (Wo rk) Scheduled Procedures Name [...] on filedocumented in this encounter Care Teams Hand Braille Transcriber Relationship Specialty Start Date End Date Tom Hay MD PCP - General General Internal Medicine 09/15/18 [facility] GENERAL [place] [address] documented as of this encounter
--- OUTSIDE RECORDS SUMMARY | 2022-07-12 00:51 | XMS_ITS | Encounter Summary ---
:1965 Author Organization [facility] Address [facility] [place] [address] Care Team Providers Name Role Phone Tom Hay MD Primary Care Provider Encounter Details Date Type Department Care Team Description 10/25/2018 Telephone Pulmonology at [facility] Peña Samano II [facility] [place] [address] Social History Tobacco Use Types Packs/Day [...] this encounter Miscellaneous Notes Telephone Encounter - Peña Samano II - 10/25/2018 9:26 AM EST Called to reschedule Emmanuelle's PFTs. No vm set up. documented in this encounter Plan of Treatment Upcoming Encounters Date Type Specialty Care Team Description 08/06/2022 Office Visit Plastic Surgery Peña Woodward MD [facility] PLASTIC [facility]GERY [place] [phone] (Wo rk) 08/19/2022 Office Visit Podiatry Tom Titus DPM [place] [phone] (Wo rk) 09/08/2022 Office Visit Internal Medicine Janay Hay MD [facility] GENERAL INTERNAL MEDICINE [place] [phone] (Wo rk) 10/12/2059 Hospital Encounter Surgery Jim Hanley MD [facility] [place] [phone] (Wo rk) Scheduled Procedures Name Priority Associated [...] on filedocumented in this encounter Care Teams Full Time Relationship Specialty Start Date End Date Tom Hay MD PCP - General Internal Medicine 09/15/18 [facility] [place] [address] documented as of this encounter
--- OUTSIDE RECORDS SUMMARY | 2022-07-12 00:51 | XMS_ITS | Encounter Summary ---
:1965 Author Organization [facility] [place] [address] Care Team Providers Name Role Phone Tom Hay MD Primary Care Provider Encounter Details Date Type Department Care Team Description 08/03/2018 Telephone Dermatology at [facility] Jacob Langston III, [address] [place] [address] [facility] [phone] AMARI PORRAS-DERMAT [place], [place] [address] (Wo rk) Social History Tobacco [...] Miscellaneous Notes Telephone Encounter - Rusty Perez Masha, CONCRETE TILE MACHINE OPERATOR - 08/03/2018 9:10 AM EDT I called patient to check on her and see how her scalp was doing and also to see if she still wantedto come in for xtrac laser treatments, for scalp. She said that she has transportation issues and her car is not working right, and unable to come in for treatments this far. I asked her if she was able to get transportation assistance through [employer], as I have had other patients utilize this service and they can get reimbursed for ridesto appointments. She was unaware of this and said that she was going to call and see if that is something they will do for her. She would like to come in for treatments. She noticed improvement after trying it the onetime Patient said that her scalp was worse, and she had been using topical clobetasol foam a couple timesa week. She says that it helps but does not clear it up, and it makes her hair greasy. Not sure if it is working. She was prescribed taclonex suspension on 07/21/[address] Blair, but her medicaid managed care and medicare part D did not cover it, and was going to cost her over $200 out of pocket. I looked up the good rx coupon discount rx card and it does not list any discounts for this medication. I checked with finance manager online and the copay discount doesn't apply to medicaid / medicare covered patients. I called the [facility] medication assistance program phone number [phone] and talked with Cindy and she was very helpful and took patients information and will look up to see if there are other options or assistance and will reach out to the patient. I also spoke with Ralph in the specialty pharmacy prior auth area here at and he said that unfortunately with her medicaid And medicare part D [employer] would not cover it. He suggested calling the finance manager possibly. I called patient back and gave her all the information / choices and that she should expect a call from Cindy. Also asked her to call me back if she is able to arrange transportation. RUSTY PEREZ LPN documented in this encounter Plan of Treatment Upcoming Encounters Date Type Specialty Care Team Description 08/06/2022 Office Visit Plastic Surgery Peña Woodward MD [facility] PLASTIC SURGERY [place], [place] [address] (Wo josé luis) 08/19/2022 Office Visit Podiatry Tom Titus DPM [place], [place] [address] (Wo rk) 09/08/2022 Office Visit Internal Medicine Janay Hay MD [facility] GENERAL INTERNAL MEDICINE [place], [place] [address] (Wo rk) 10/12/2059 Hospital Encounter Surgery Jim Hanley MD [facility] [place], [place] [address] (Wo rk) Scheduled Procedures Name [...] on filedocumented in this encounter Care Teams Basketball Commentator Relationship Specialty Start Date End Date Tom Hay MD PCP - General General Internal Medicine 09/15/18 [facility] [place] [address] documented as of this encounter
--- OUTSIDE RECORDS SUMMARY | 2022-07-12 00:51 | XMS_ITS | Encounter Summary ---
:1965 Author Organization [facility] [place] [address] Care Team Providers Name Role Phone Tom Hay MD Primary Care Provider Reason for Visit Reason Onset Date Comments Triage 08/27/2018 elevated blood gluco se Encounter Details Date Type Department Care Team Description 08/27/2018 Telephone Internal Medicine at [facility] age (elevated blood [facility] glucose) [place] [address] Social History Tobacco Use Types Packs/Day [...] Encounter - Caitlin Martinez RN - 08/27/2018 3:23 PM EST Called Guerda and relayed Kathia's instructions below. She wrote down and read back sliding scale information below. She also verbalized understanding of Kathia's instructions below. She asked that we faxcopy of note to her pharmacy so they will have info for sliding scale Humalog. Sliding scale for Humalog insulin 150-200 ??4 units 200-250 ??6 units 250-300 ??8 units 300-350 ??10 units 350+ ??12 units Needs to take her lantus and check fastings and 2 hr PP over w/e. ??Call w/ update Thursday Telephone Encounter - Caitlin Martinez RN - 08/27/2018 2:09 PM EST Called Guerda back regarding her blood sugar of 480. Guerda says she took this around lunch time before she ate. Guerda is currently on prednisone that [place] prescribed on 08/25/18. She says she has sliding scaleHumalog, but she is unclear what dose to take. She took 8 units. This brought her blood sugar down to 273. In reviewing chart there is no information past a blood glucose of 250 regarding sliding scaledosing. Guerda also reports she has not taken her Lantus three nights in a row because she has been tooill. Told her this may be part of the problem. She has been taking her glipizide. She does not take metformin due to stomach issues. Let her know message would be sent to provider covering for [facility] for further information. Telephone Encounter - Ene Galvez - 08/27/2018 1:12 PM EST Message: pt calling, blood sugar 480. Please call back Caller and relationship (if other than patient-full name): self or [phone] Best time to call back: any Ok to leave a message: [only on the [phone] phone. Ok to send my-DH message: [n] Offered Appointment: MA/Nurse contacted via: Message: y Call: y Pager: n documented in this encounter Plan of Treatment Upcoming Encounters Date Type Specialty Care Team Description 08/06/2022 Office Visit Plastic Surgery Peña Woodward MD [facility] PLASTIC SURGERY [place] [phone] ( josé luis) 08/19/2022 Office Visit Podiatry Tom Titus DPM [place], [place] [address] (Flores ordonez) 09/08/2022 Office Visit Internal Medicine Janay Hay MD [facility] GENER[facility] INTERNAL MEDICINE [place], [place] [address] (Wo josé luis) 10/12/2059 Hospital Encounter Surgery Jim Hanley MD [facility] [place], [place] [address] (Flores ordonez) Scheduled Procedures Name [...] filedocumented in this encounter Care Teams Medical Supervisor Relationship Specialty Start Date End Date Tom Hay MD PCP - General Woods Internal Medicine 09/15/18 [facility] GENERAL [place] [address] documented as of this encounter
--- OUTSIDE RECORDS SUMMARY | 2022-07-12 00:51 | XMS_ITS | Encounter Summary ---
:1965 Author Organization [facility] Address [facility] [place] [address] Care Team Providers Name Role Phone Tom Hay MD Primary Care Provider Reason for Visit Reason Comments Establish Care Would like to talk about Jignesh colepsy. Feels like there is crackling in her lungs. 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; [phone] [place], [place] [address] Cervical radicular pain Social History Tobacco Use Types Packs/Day Years [...] Sign Reading Time Taken Comments Blood Pressure 132/88 10/01/2018 3:26 PM EST Pulse 104 10/01/2018 2:26 PM EST Temperature 36.8 ??C (98.2 ??F) 10/01/2018 2:26 PM EST Respiratory Rate 18 10/01/2018 2:26 PM EST Oxygen Saturation 97% 10/01/2018 2:26 PM EST Inhaled Oxygen Concentration - - Weight 100.4 kg (221 lb 6.4 oz) 10/01/2018 2:26 PM EST boots on Height 164 cm (5' 4.57) 10/01/2018 2:26 PM EST boots o n Body Mass Index 37.34 10/01/2018 2:26 PM EST documented in this encounter Patient Instructions Patient InstructionsTom Hay MD - 10/01/2018 2:20 PM EST Start bydureon - weekly injection for diabetes After a few days- change prozac to duloxetine Prozac: 80 40 0 Duloxetine: 0 30 60 Chantix to quit smoking Atorvastatin for cholesterol documented in this encounter Progress Notes Tom Hay MD - 10/01/2018 2:20 PM EST General Internal Medicine - Annual Wellness Visit Issues/HPI Emmanuelle Bynum is a 52 y.o. female here for comprehensive review. She has Scalp psoriasis; Chronic migraine without aura; Whiplash; Leukocytosis; Asthma; Hypothyroid;Depression; GERD (gastroesophageal reflux disease); Chronic UTI; Sleep apnea; Bilateral shoulder pain; Carpal tunnel syndrome on both sides; Ankle weakness; Cervical radicular pain; Atypical nevus of back; Seborrheic keratosis, inflamed; Irritated nevus of face; Dermatofibroma; Hemangioma - left shoulder; Spider veins - lower legs; DDD (degenerative disc disease), cervical; Cervical disc displacement; Myopia of both eyes with astigmatism and presbyopia; Bilateral dry eyes; Controlled type 2 diabetesmellitus without complication, with long-term current use of insulin; Combined forms of age-related cataract of both eyes; COPD (chronic obstructive pulmonary disease); Mild cognitive impairment, so stated; Acne vulgaris; Schizophrenia; Bipolar II disorder; Vitamin D deficiency; Essential hypertension; Hyperlipidemia; Seasonal allergies; Vertigo; and Fibromyalgia on their problem list. Transferring care to me from [place]. -Last month- referred to spine for cervical radiculopathy. Neck pops. L sided radiculopathy. Numbness in both hands. All the time on L. Causes HAs On both soma and robaxin. Takes robaxin 3-4x/d -Psych- bipolar 2, unhappy with current psychiatrist. Dr. Crane. On 80 prozac, abilify, xanax; sx well controlled. Had hallucinations- dx schizophrenia -Narcolepsy- Falling asleep frequently. Runs in family. On ritalin On CPAP in past. -DM: lantus 48 qd and humalog and glipizide. Metformin makes her ill. Not taking it. Not using humalog. Sugars 280-300 -COPD/asthma- asthma as a child. Smoking. Wants to quit. Chantix was working. Rx ran out. Has URI now. No sputum. More wheezy. -Vertigo- related to migraines. -migraines- had botox in past - estradiol - off pills. Otherwise doing ok. No CP, no GI, HCM- JEANMARIE Family History CAD- no Ca- mother with breast, nonmelanoma skin. 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 Has a roommate, in a relationship with someone else- M Hobbies/Activities/Exercise - Tobacco -<half ppd EtOH - none. Cut out due to diabetes. Smokes MJ- medical; no other illicits. PHQ-9 QUESTIONNAIRE (AMB) 10/01/2018 PHQ - 9 Score (Clinic) 8 (Mild Depression) Little interest or pleasure (Clinic) Not at all Down, depressed, hopeless (Clinic) Not at all Trouble sleeping (Clinic) Nearly every day Tired or no energy (Clinic) Nearly every day Poor appetite or overeating (Clinic) Several days Feeling like a failure (Clinic) Not at all Trouble concentrating (Clinic) Several Days Moving or speaking slowly (Clinic) Not at all Would be better off (Clinic) Not at all How difficult are the problems (Clinic) Extremely difficult Physical Exam Vitals: 10/01/18 1426 10/01/18 1526 BP: (!) 154/97 132/88 BP Location (NBP): Left arm Patient Position: Sitting BP Cuff Sizes: Adult (25-34 cm) Pulse: (!) 104 Resp: 18 Temp: 36.8 ??C (98.2 ??F) TempSrc: Oral SpO2: 97% Weight: 100.4 kg (221 lb 6.4 oz) Height: 164 cm (5' 4.57) Body mass index is 37.34 kg/m??. Gen - No apparent distress Neck - Full range of motion, no lymphadenopathy or thyromegaly Lungs - Clear to ascultation and percussion Assessment and Plan 1. DM- will add bydureon 2 (on formulary), stay off meal associated insulin. Titrate lantus after onbydureon. Chk labs, start statin (20% risk) 2. Pain/psych- transition prozac to duloxetine 60. DC soma. Hope to reduce carisoprolol; ? Restart lyrica for both anxiety and pain 3. Narcolepsy? - consider provigil. Try to reduce xanax; ? SEB. Might want sleep to review 4. COPD/asthma- on a maximal regimen. Focus on smoking cessation- with chantix 1 qd 5. Hypothyroid- chk TSH 6. Htn- good today. Chk lytes, considre ACEI 7. Cervical radiculopathy- soft collar, spine FU HCM-deferred Follow up-1 mo 40 documented in this encounter Plan of Treatment Upcoming Encounters Date Type Specialty Care Team Description 08/06/2022 Office Visit Plastic Surgery Peña Woodward MD [facility] PLASTIC SURGERY [place], [place] [address] (Wo rk) 08/19/2022 Office Visit Podiatry Tom Titus DPM [place], [place] [address] (Wo rk) 09/08/2022 Office Visit Internal Medicine Janya Hay MD [facility] GENERAL INTERNAL MEDICINE [place], [place] [address] (Wo rk) 10/12/2059 Hospital Encounter Surgery Jim Hanley MD [facility] SPINE CENTER [place], [place] [address] (Wo rk) Scheduled Procedures Name [...] Name Priority Date/Time Associated Diagnosis Comme nts TSH Routine 10/01/2018 4:00 Hypothyroidism due to Res ults for this PM EST Ramana's procedure are i n thyroiditis the results section. HEMOGLOBIN A1C Routine 10/01/2018 4:00 Controlled type 2 Resul ts for this PM EST diabetes mellitus procedure are in without complication, the re sults with long-term current secti on. use of insulin COMPREHENSIVE Routine 10/01/2018 4:00 Controlled type 2 Result s for this METABOLIC PANEL PM EST diabetes mellitus procedu re are in (NON-FASTING) without complication, the r esults with long-term current secti on. use of insulin documented in this encounter Results (ABNORMAL) TSH (10/01/2018 4:00 PM EST) P athologist Signature TSH 4.28 (H) 0.27 - 4.20 MURRAY ARMAS mlU/ML [facility] Specimen Anatomical Collection Method Collection Time Receive d Time (Source) Location / / Volume Laterality Blood specimen 10/01/2018 4:00 PM 018 4:06 (specimen) EST PM EST Resulting Agency Comment Spec In Lab Tom Hay MD CHEMISTRY ORDERABLES Performing Organization Address City/State/[place] [address] (ABNORMAL) Hemoglobin A1c (10/01/2018 4:00 PM EST) Analysis Performed At [facility] Time Signature Hemoglobin A1C 9.0 (H) 4.3 - 5.6 [facility] Comment: Reference Range: 4.3 - 5.6% 5.7 - 6.4% - Increased Risk of Developin g Diabetes Mellitus >=6.5% - Consistent with diagnosis of Di abetes Mellitus In the absence of hyperglycemia (i.e. pl asma glucose > 200 mg/dL) or classic symptoms of hyperglycemia a repeat measu rement of HbA1c should be performed on a separate sample to confirm the diagnos is. Diagnosis and Classification of Diabetes Mellitus, Diabetes Care 2013; 36: Suppl. 1, Z17-37 Est Avg Gluc 212 mg/dL [facility] Comment: eAG equivalents for HbA1c percentages: HbA1c(%) ?eAG(mg/dL) 6.0 ?126 6.5 ?140 7.0 ?154 7.5 ?169 8.0 ?183 8.5 ?197 9.0 ?212 9.5 ?226 10.0 ? 240 Limitations: The eAG calculation has not been validated on women, individuals below 18 years old and above 70 years old, and individuals with hemoglobinopathies. Additional resources are available on [facility] ADA website. Steve CHAO, Bhumi J, Kay R, et al. ??Tr anslating the A1C assay into estimated average glucose values. ??Diabetes Care 2008:31(8):9066-5645. Specimen Anatomical Collection Method Collection Time Receive d Time (Source) Location / / Volume Laterality Blood specimen 10/01/2018 4:00 PM 018 4:06 (specimen) EST PM EST Resulting Agency Comment Spec In Lab Tom Hay MD CHEMISTRY ORDERABLES Performing Organization Address City/State/[place] [address] (ABNORMAL) Comprehensive metabolic panel (non-fasting) (10/01/2018 4:00 PM EST) athologist Signature Glucose Lvl 216 (H) 65 - 199 [facility] mg/dL [facility] Comment: Diabetes: >=200 mg/dL plus symp toms BUN 10 8 - 18 mg/dL [facility] Creatinine 0.71 0.70 - 1.20 mg/dL [facility] Sodium 139 135 - 145 mmol/L [facility] Potassium 4.1 3.5 - 5.0 mmol/L [facility] Comment: Please note: ??Patients with WBC >100,00 0 may have falsely elevated Potassium levels. ??For accurate Potassium quantif ication in these patients send serum separator tube (gold top) for subsequent determinations. ??Contact the Clinical Chemistry Laboratory if there are any qu estions. Chloride 100 98 - 107 mmol/L [facility] CO2 27 22 - 31 mmol/L [facility] Anion Gap 12 5 - 15 mmol/L [facility] Calcium 9.2 8.5 - 10.5 mg/dL [facility] Total Protein 6.8 6.1 - 8.0 gm/dL [facility] Albumin 4.0 3.2 - 5.2 gm/dL [facility] AST 9 0 - 30 unit/L [facility] ALT 15 0 - 30 unit/L [facility] Alk Phos 75 40 - 104 unit/L [facility] Total Bilirubin 0.3 0.2 - 1.3 mg/dL [facility] Estimated GFR 99 >=60 mL/min/1.73 m?? [facility] Comment: The eGFR was calculated using the CKD-EP I equation. As with all creatinine based estimates of kidney function, eGFR values calculated with the CKD-EPI equation are not accurate in patients wi th acute kidney failure, extremes of body mass or the acutely ill. http://[employer]/[facility] eGFR 115 >=60 mL/min/1.73 m?? [facility] Comment: The eGFR was calculated using the CKD-EP I equation. As with all creatinine based estimates of kidney function, eGFR values calculated with the CKD-EPI equation are not accurate in patients wi th acute kidney failure, extremes of body mass or the acutely ill. http://[employer]/[facility]f Specimen Anatomical Collection Method Collection Time Receive d Time (Source) Location / / Volume Laterality Blood specimen 10/01/2018 4:00 PM 018 4:06 (specimen) EST PM EST Resulting Agency Comment Spec In Lab Tom Hay MD CHEMISTRY ORDERABLES Performing Organization Address City/State/[place] [address] documented in this encounter Visit Diagnoses Diagnosis Controlled type 2 diabetes mellitus with out complication, with long-term current use of insulin Cervical disc displacement Displacement of cervical intervertebral disc without myelopathy Asthma, unspecified asthma severity, uns pecified whether complicated, unspecified whether persistent Bipolar II disorder Other bipolar disorders Fibromyalgia Mylagia and myositis, unspecified 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
--- OUTSIDE RECORDS SUMMARY | 2022-07-12 00:51 | XMS_ITS | Encounter Summary ---
:1965 Author Organization [facility] [place] [address] Care Team Providers Name Role Phone Chandler Bay Primary Care Provider Encounter Details Date Type Department Care Team Description 08/04/2018 Hospital Encounter [place] [place] [facility] [place] [address] ORTHOPAEDIC SURGERY [phone] [place] [id number] (Wo rk) Social History Tobacco Use Types [...] 2 sprays by Nasal 0 27.5 mcg/actuation Flournoy, route daily. SuspensionIndications: Indications: allergic rhinitis Allergic Rhinitis blood sugar diagnostic Use as instructed to 100 each 11 04/28/2019 strips StripIndications: check BG 4 times Controlled type 2 daily. (Freestyle diabetes mellitus without Lite) complication, unspecified whether intermodal customer service insulin use methocarbamol (ROBAXIN) Take 1 tablet by 120 tablet 0 201704/28/2019 750 mg TabletIndications: mouth 4 times daily. Cervical radicular pain carisoprodol (SOMA) 350 Take 1 tablet by 30 tablet 1 201710/01/2018 mg Tablet mouth 3 times daily as needed for Muscle spasms. naratriptan (AMERGE) 2.5 TAKE 1 TABLET BY 10 tablet 0 07/3008/26/2018 mg TabletIndications: MOUTH AT ONSET OF Vertigo HEADACHE; IF RETURNS OR DOES NOT RESOLVE, MAY REPEAT AFTER4 HOURS meclizine (ANTIVERT) 25 TAKE 1 TABLET BY 90 tablet 0 201708/26/2018 mg TabletIndications: MOUTH THREE TIMES Vertigo DAILY NEEDED betamethasone-calcipotrie Apply 3 times a week 120 g 1 07/21/2018 03/06/2020 ne (TACLONEX SCALP) to scalp for 0.005-0.064 % psoriasis as needed. SuspensionIndications: Psoriasis PROAIR HFA 90 INHALE 2 PUFFS INTO 8.5 g 3 07/16/2018 mcg/actuation HFA Aerosol THE LUNGS EVERY 4 InhalerIndications: HOURS NEEDED Asthma, unspecified WHEEZING asthma severity, unspecified whether complicated, unspecified whether persistent amitriptyline (ELAVIL) 25 TAKE 1 TABLET BY 90 tablet 3 11/201710/01/2018 mg TabletIndications: MOUTH NIGHTLY Cervical radicular pain ondansetron (ZOFRAN) 4 mg TAKE 1 TABLET BY 20 tablet 3 06/1304/06/2019 TabletIndications: MOUTH EVERY 8 HOURS Vertigo NEEDED NAUSEA doxycycline monohydrate one pill a day for 30 capsule 1 06/1210/01/2018 (MONODOX) 100 mg perioral dermatitis CapsuleIndications: as needed ;take with Perioral dermatitis food Clobetasol-Emollient 0.05 Apply twice daily to 200 g 0 06/29/2018 11/29/2018 % FoamIndications: worse scalp Psoriasis psoriasis on weekends-only as needed dispense 3 bottles please pen needle, diabetic 1 each by 100 each 5 06/29/201812/11 (NOVOTWIST) 32 gauge x Misc.(Non-Drug; 10/16 Needle Combo Route) route 4 times daily as needed. betamethasone, augmented, Apply to psoriasis 60 mL 1 04/05/2019 (DIPROLENE) 0.05 % in scalp 1-2 times a LotionIndications: day, 2-3 times a Psoriasis week ; with calcipotriene giana Calcipotriene 0.005 % Apply to psoriasis 60 mL 2 201707/05/2019 SolutionIndications: in scalp 2-3 times a Psoriasis week, use with betamethasone giana metFORMIN (GLUCOPHAGE-XR) Take 2 tablets by 360 tablet 3 01/201810/01/2018 500 mg Tablet Sustained mouth 2 times daily. Release 24 hrIndications: Controlled type 2 diabetes mellitus without complication, unspecified whether mcc insulin use insulin glargine (LANTUS Inject 48 Units 15 mL 11 201710/26/2019 SOLOSTAR U-100 INSULIN) subcutaneously 100 unit/mL (3 mL) nightly. penIndications: Controlled type 2 diabetes mellitus without complication, unspecified whether intermodal customer service insulin use insulin pen, HumaLOG Inject 3-30 each 10 Pen 11 8 10/01/2018 Luxura, Insulin subcutaneously 3 PenIndications: times daily (before Controlled type 2 meals). diabetes mellitus without complication, unspecified whether mcc insulin use hydroCHLOROthiazide Take 1 tablet by 90 tablet 3 06/15/2018 04/06/2019 (HYDRODIURIL) 50 mg mouth daily. TabletIndications: Essential hypertension HUMALOG KWIKPEN 100 INJECT 4 TO 30 UNITS 27 mL 0 201710/24/2019 unit/mL Insulin Pen UNDER THE SKIN THREE TIMES DAILY WITH MEALS DIRECTED amLODIPine (NORVASC) 10 Take 1 tablet by 90 tablet 3 201706/21/2019 mg Tablet mouth daily. lancets (FREESTYLE 1 Application by 300 each 3 05/05/2018 09/07/2018 LANCETS) 28 gauge Other route 3 times MiscIndications: diabetes daily. Indications: mellitus Diabetes Mellitus glipiZIDE (GLUCOTROL) 5 Take 1 tablet by 60 tablet 5 201710/29/2018 mg Tablet mouth 2 times daily (before meals). metFORMIN (GLUCOPHAGE) Take 1 tablet by 60 tablet 5 018 10/01/2018 1,000 mg Tablet mouth 2 times daily. cholecalciferol, Vitamin Take 1 capsule by 52 capsule 0 04/1110/26/2020 D3, 50,000 unit Capsule mouth once a week. levothyroxine (SYNTHROID) Take 2 tablets by 90 tablet 3 07/201810/15/2018 150 mcg mouth daily. TabletIndications: added Indications: added to = 325 mcg daily to = 325 mcg daily levothyroxine (SYNTHROID) Take 1 tablet by 90 tablet 2 04/1112/29/2018 25 mcg Tablet mouth daily. valACYclovir (VALTREX) 1 Take 1 tablet by 18 tablet 0 04/2010/31/2019 gram Tablet mouth 2 times daily. venlafaxine (EFFEXOR) 25 Take 25 mg by mouth 0 10/06/2018 mg Tablet daily. IBU 800 mg TAKE 1 TABLET BY 270 tablet 3 03/25/2018 02/29/20 19 TabletIndications: MOUTH EVERY 8 HOURS Cervical radicular pain NEEDED PAIN BREO ELLIPTA 200-25 Inhale 1 puff into 60 each 3 03/24/20 18 08/26/2018 mcg/dose Disk with Device the lungs daily. tiotropium (SPIRIVA) 18 Inhale 1 capsule 90 capsule 3 201712/29/2018 mcg Capsule, w/Inhalation into the lungs Device daily. montelukast (SINGULAIR) Take 1 tablet by 30 tablet 3 201710/24/2018 10 mg TabletIndications: mouth nightly. allergic rhinitis Indications: Allergic Rhinitis varenicline (CHANTIX) 1 Take 1 tablet by 60 tablet 3 201709/23/2018 mg Tablet mouth 2 times daily. VITAMIN D 1,000 unit Take 2 tablets by 90 tablet 0 03/24/20 18 04/26/2020 Tablet mouth daily. cycloSPORINE (RESTASIS) Place 1 drop into 180 vial 3 10/2010/26/2020 0.05 % both eyes every 12 DropperetteIndications: hours. Bilateral dry eyes estradiol (ESTRACE) 1 mg Take 1 mg by mouth 2 6 1 10/01/2018 Tablet times daily. 2 tablets in the morning, 1 tablet nightly nystatin (MYCOSTATIN) Take by mouth 4 0 7 07/15/2019 100,000 unit/mL times daily. Suspension gabapentin (NEURONTIN) Take 900 mg in the 150 tablet 3 10/1607/15/2019 600 mg TabletIndications: morning and 900 mg Headache(784.0) at noontime. Take 1200 mg at bedtime. promethazine (PHENERGAN) Take 25 mg by mouth 0 11/22/2020 25 mg tablet every 6 hours as needed. ALPRAZolam (XANAX) 1 mg Take 1 mg by mouth 3 0 03/14/2022 tablet times daily as needed. FLUoxetine (PROZAC) 40 mg Take 80 mg by mouth 0 07/04/2020 capsule daily. ARIPiprazole (Abilify) 30 Take 30 mg by mouth 0 03/14/2022 mg Tablet daily. esomeprazole (NEXIUM) 40 Take 40 mg by mouth 0 10/29/2018 mg capsule 2 times daily. documented as of this encounter Plan of Treatment Upcoming Encounters Date Type Specialty Care Team Description 08/06/2022 Office Visit Plastic Surgery Peña Woodward MD [facility] PLASTIC SURGERY [place], [place] [address] (Wo rk) 08/19/2022 Office Visit Podiatry Tom Titus DPM [facility] DRIVE [place], [place] [address] (Wo rk) 09/08/2022 Office Visit Internal Medicine Janay Hay MD [facility] GENERAL INTERNAL MEDICINE [place], [place] [address] (Wo rk) 10/12/2059 Hospital Encounter Surgery Jim Hanley MD [facility] SPINE CENTER [place], [place] [address] (Wo rk) Scheduled Procedures Name [...] Associated Diagnosis Comme nts FILM LIBRARY Routine 08/04/2018 12:00 AM Results for this STORAGE ONLY MR EDT procedure figueroa ledesma in SPINE the results section. documented in this encounter Results Film Library- Storage Only MR Spine (08/04/2018 12:00 AM EDT) Specimen (Source) Anatomical Location Collection Method / Collectio n Time Received Time / Laterality Volume Narrative [facility] - 09/02/2018 11:40 AM EST This exam is for storage only and is aut o-finalizing. Dash Snow MD IMG FILM LIBRARY ORDERABLES Performing Organization Address City/State/ZIP Code Phon e Number [place], [place] documented in this encounter Visit Diagnoses Not on filedocumented in this encounter Care Teams Woven Wood Shade Assembler Relationship Specialty Start Date End Date Chandler Bay PA PCP - General General Internal Medicine 01/26/18 8 [facility] General [place] [address] documented as of this encounter
--- OUTSIDE RECORDS SUMMARY | 2022-07-12 00:51 | XMS_ITS | Encounter Summary ---
:1965 Author Organization [facility] [place] [address] Care Team Providers Name Role Phone Chandler Bay Primary Care Provider Reason for Visit Reason Onset Date Comments Medication Refill 07/30/2018 Encounter Details Date Type Department Care Team Description 07/30/2018 Refill Internal Medicine at [facility] Mehreen Anaya CCMA [facility] Kevin [place] [address] Social History Tobacco Use Types Packs/Day [...] MD [facility] PLASTIC SURGERY [place], [place] [address] (Wo rk) 08/19/2022 Office Visit Podiatry Tom Titus DPM [place], [place] [address] (Wo rk) 09/08/2022 Office Visit Internal Medicine Janay Hay MD [facility] GENERAL INTERNAL MEDICINE [place], [place] [address] (Wo rk) 10/12/2059 Hospital Encounter Surgery Jim Hanley MD [facility] SPINE CENTER [place], [place] [address] (Wo rk) Scheduled Procedures Name [...] on filedocumented in this encounter Care Teams Sliver Cutter Relationship Specialty Start Date End Date Chandler Bay PA PCP - General Internal Medicine 01/26/[address] [place] [address] General [place] [address] documented as of this encounter
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
--- OUTSIDE RECORDS SUMMARY | 2022-07-12 00:51 | XMS_ITS | Encounter Summary ---
:1965 Author Organization [facility] [place] [address] Care Team Providers Name Role Phone Tom Hay MD Primary Care Provider Reason for Visit Reason Onset Date Comments Other 09/09/2018 PCP Switch Encounter Details Date Type Department Care Team Description 09/09/2018 Telephone Internal Medicine [place] [facility] Candie Holley (PCP Switch ) [facility] [place] [address] Social History Tobacco Use Types Packs/Day [...] this encounter Miscellaneous Notes Telephone Encounter - Drea Vasquez - 09/13/2018 12:25 PM EST Called patient to offer Dr. Christina or Dr. Reyes. Please schedule SPRING. Patient did not have a voicemail. Telephone Encounter - Candie Holley - 09/09/2018 8:39 AM EST Request Details Name of Caller: self - Pt does not have a answering machine but she will call number back. Current PCP: YUNIOR Anton What is the reason for the switch request? Pt does not feel this is a good fit for her and is requesting a MD only. What/Who is the pt???s PCP preference? Any provider Immediate needs: yes - pt needs DM supplies and possible f/u Comments: Ok with [address] or [facility] Review of History (done by ) No issues of concern No shows Previous PCP switches Patient has seen assigned PCP Resolution Switch Approved: Reestablish with: Appointment needs: Switch Declined: Patient may choose to keep their current PCP or seek primary care outside [facility] Other: documented in this encounter Plan of Treatment Upcoming Encounters Date Type Specialty Care Team Description 08/06/2022 Office Visit Plastic Surgery Peña Woodward MD [facility] PLASTIC SURGERY [place], [place] [address] (Wo rk) 08/19/2022 Office Visit Podiatry Tom Titus DPM [place], [place] [address] (Wo rk) 09/08/2022 Office Visit Internal Medicine Janay Hay MD [facility] GENERAL INTERNAL MEDICINE [place], [place] [address] (Wo rk) 10/12/2059 Hospital Encounter Surgery Jim Hanley MD [facility] SPINE CENTER [place], [place] [address] (Wo rk) Scheduled Procedures Name [...] on filedocumented in this encounter Care Teams Fitter Helper Relationship Specialty Start Date End Date Tom Hay MD PCP - General General Internal Medicine 09/15/18 [facility] GENERAL [place] [address] documented as of this encounter
--- OUTSIDE RECORDS SUMMARY | 2022-07-12 00:51 | XMS_ITS | Encounter Summary ---
:1965 Author Organization [facility] [place] [address] Care Team Providers Name Role Phone Tom Hay MD Primary Care Provider Reason for Visit Reason Onset Date Comments Triage 08/30/2018 high blood sugar Encounter Details Date Type Department Care Team Description 08/30/2018 Telephone Internal Medicine at Juliet Oliva Triage (high blood [facility] sugar) [place] [address] Social History Tobacco Use Types Packs/Day [...] Telephone Encounter - Caitlin Martinez RN - 08/30/2018 11:59 AM EST Called Guerda back. She says her monitor is not even giving her a reading other than HI Asked if she took her insulin as Kathia recommended on Thursday. Guerda said she did. Advised going to the ED immediately. Guerda said she will do that. Telephone Encounter - Juliet Oliva - 08/30/2018 11:52 AM EST Message: pt is calling about her blood sugar. Her monitor won't even give her a number it is so highit is just reading hi. Please call her back to discuss Caller and relationship (if other than patient-full name): Emmanuelle Best time to call back: any Ok to leave a message: [yes] Ok to send my- message: [] Offered Appointment: no MA/Nurse contacted via: Message: yes Call: yes Pager: no documented in this encounter Plan of Treatment Upcoming Encounters Date Type Specialty Care Team Description 08/06/2022 Office Visit Plastic Surgery Peña Woodward MD [facility] PLASTIC SURGERY [place] [phone] (Wo rk) 08/19/2022 Office Visit Podiatry Tom Titus DPM [place], [place] [address] ( rk) 09/08/2022 Office Visit Internal Medicine Janay Hay MD [facility] GENERAL INTERNAL MEDICINE [place], [place] [address] ([facility]) 10/12/2059 Hospital Encounter Surgery Jim Hanley MD [facility] SPINE CENTER [place], [place] [address] ([facility]) Scheduled Procedures Name [...] on filedocumented in this encounter Care Teams Installer Molding And Trim Relationship Specialty Start Date End Date Tom Hay MD PCP - General General Internal Medicine 09/15/18 [facility] GENERAL [place] [address] documented as of this encounter
--- OUTSIDE RECORDS SUMMARY | 2022-07-12 00:51 | XMS_ITS | Encounter Summary ---
:1965 Author Organization [facility] [place] [address] Care Team Providers Name Role Phone Tom Hay MD Primary Care Provider Reason for Referral Diagnostic Test (Routine) - Specialty Diagnoses / Procedures Referred By Contact Refer red To Contact Procedures Zleb Spine 3d MRI Cervical Spine wo [facility] Contrast (Generic) [place] [phone] Referral ID Status Reason Start Date Expiration Visits Visits Date Requested Authorized [id number] Specialty 10/29/2018 04/27/2019 1 1 Service Requested Encounter Details Date Type Department Care Team Description 10/29/2018 External Results Spine Center at [facility] non Provider, [facility] [place] [phone] Social History Tobacco Use Types Packs/Day [...] Woodward MD [facility] PLASTIC SURGERY [place] [phone] ([facility]) 08/19/2022 Office Visit Podiatry Tom Titus DPM [place], [place] 3 ([facility]) 09/08/2022 Office Visit Internal Medicine Janay Hay MD [facility] GENERAL INTERNAL MEDICINE [place], [place] 1 ( josé luis) 10/12/2059 Hospital Encounter Surgery Jim Hanley MD [facility] SPINE CENTER [place], [place] [address] ( josé luis) Scheduled Procedures Name Priority [...] Associated Diagnosis Comme nts MRI CERVICAL SPINE WO CONTRAST Routine 08/04/2018 documented in this encounter Results MRI Cervical Spine wo Contrast (Generic) (08/04/2018) Anatomical Region Laterality Modality C-spine Magnetic Resonance Narrative This result has an attachment that is no t available. Historical Provider MD ALEX MRI ORDERABLES documented in this encounter Visit Diagnoses Not on filedocumented in this encounter Care Teams Windows Administrator Relationship Specialty Start Date End Date Tom Hay MD PCP - General General Internal Medicine 09/15/18 [facility] [place] [address] documented as of this encounter
--- OUTSIDE RECORDS SUMMARY | 2022-07-12 00:51 | XMS_ITS | Encounter Summary ---
:1965 Author Organization [facility] Address [address] [place] [address] Care Team Providers Name Role Phone Tom Hay MD Primary Care Provider Reason for Visit Reason Comments Follow-up has new hip pain, overall in a lot of pain Encounter Details Date Type Department Care Team Description 10/29/2018 Office Visit Internal Medicine at Tom Hay Ch right hip pain; [facility] MD Kevin Hypothyroidism, unspecified type; [facility] beeed type 2 diabetes mellitus without complication, with long-term current use of insulin; Elizabeth BELL Healthcare maintenance [place], [place] GENERAL INTERNAL [id number] MEDICINE [phone] [place], [place] [address] (Wo rk) Social History Tobacco [...] Sign Reading Time Taken Comments Blood Pressure 127/92 10/29/2018 3:07 PM EST Pulse 106 10/29/2018 3:07 PM EST Temperature 36.9 ??C (98.4 ??F) 10/29/2018 3:07 PM EST Respiratory Rate 18 10/29/2018 3:07 PM EST Oxygen Saturation 98% 10/29/2018 3:07 PM EST Inhaled Oxygen Concentration - - Weight 97.5 kg (215 lb) 10/29/2018 3:07 PM EST Height 167.2 cm (5' 5.83) 10/29/2018 3:07 PM EST Body Mass Index 34.88 10/29/2018 3:07 PM EST documented in this encounter Progress Notes Tom Hay MD - 10/29/2018 3:40 PM EST General Internal Medicine - Clinic Note Subjective -Emmanuelle Bynum is a 53 y.o. female presenting for follow up who has Scalp psoriasis;Chronic migraine without aura; Leukocytosis; Asthma; Hypothyroid; Depression; GERD (gastroesophagealreflux disease); Chronic UTI; Sleep apnea; Bilateral shoulder pain; Carpal tunnel syndrome on both sides; Cervical radicular pain; Atypical nevus of back; Seborrheic keratosis, inflamed; Irritated nevus of face; Dermatofibroma; Hemangioma - left shoulder; Spider veins - lower legs; DDD (degenerative disc disease), cervical; Cervical disc displacement; Myopia of both eyes with astigmatism and presbyopia; Bilateral dry eyes; Controlled type 2 diabetes mellitus without complication, with long-term current use of insulin; Combined forms of age-related cataract of both eyes; COPD (chronic obstructive pulmonary disease); Mild cognitive impairment, so stated; Acne vulgaris; Schizophrenia; Bipolar II disorder; Vitamin D deficiency; Essential hypertension; Hyperlipidemia; Seasonal allergies; Vertigo; and F ibromyalgia on their problem list. This is our second visit. -R hip is painful. Hurts in groin. Limping- hurts to bear weight. Hurts on and off for decades. Constant past few weeks. -Saw Dr. Joyce for neck- nonsurgical -DM- started bydureon- made her nauseous first week. Notes miryam browntie- 6# down by our scale. Nowdoing ok with it. Off MA insulin. On atorva. On 48 lantus. Fastings 250- down from 400. Eating less.Eating right. Intol of metformin. Trying to move more. -psych/pain- changed prozac to duloxetine- but psychiatrist didn't want her to do it. Had tried in past. Still seeing psych in [place] and getting xanax- down to BID -off doxy- perioral derm worse. Takes prn. -COPD- smoking down to 3-4/day. chantix helping. To quit this weekend. Breathing is better. -?narcolepsy- runs in family. ON CPAP in past. Caused infections. polypharm- off soma, would like to reduce carisoprodol and xanax; on ritalin in past but made her revved up. GERD acting up on nexium BID Physical Exam Vitals: 10/29/18 1507 BP: (!) 127/92 BP Location (NBP): Left arm Patient Position: Sitting BP Cuff Sizes: Large Adult (32-43 cm) Pulse: (!) 106 Resp: 18 Temp: 36.9 ??C (98.4 ??F) TempSrc: Oral SpO2: 98% Weight: 97.5 kg (215 lb) Height: 167.2 cm (5' 5.83) Gen - No apparent distress HEENT - Neck - Lungs - clear/mild rhonchi Heart - Abdomen - Extremities - Hip R- limited ROM with pain, no bursa tenderness Assessment and Plan 1. DM- better, but still high by fs (although A1c wasn't as bad as fs last). Incr lantus by 2u, and titrate to FBS 100-180. Diet hand out given, and asked for FU with Nenita 2. Psych/pain- doing ok. On less xanax. Psych told her not to change to cymbalta- although ? Just nausea from starting at high dose 3. COPD- to try and completely quit smoking this weekend, on chantix. Breathing better already 4. Hip pain- c/w hip OA- chk Xray, consider PT 5. Thyroid- dose incr- chk next visit. 6. ?narcolepsy- wean xanax and work on wt loss for mild SEB. Intol of stimulants. ?provigil vs. Sleep consult. FU 2mo EPE with labs MG ordered. Had JEANMARIE documented in this encounter Plan of Treatment Upcoming Encounters Date Type Specialty Care Team Description 08/06/2022 Office Visit Plastic Surgery Peña Woodward MD [facility] PLASTIC SURGERY [place], [place] [address] (Flores ordonez) 08/19/2022 Office Visit Podiatry Tom Titus DPM [place], [place] [address] (Flores ordonez) 09/08/2022 Office Visit Internal Medicine Janay Hay MD [facility] GENERAL INTERNAL MEDICINE [place], [place] [address] (Flores ordonez) 10/12/2059 Hospital Encounter Surgery Jim Hanley MD [facility] SPINE CENTER [place], [place] [address] (Wo rk) Scheduled Procedures Name Priority Associated [...] of this encounter Visit Diagnoses Diagnosis Chronic right hip pain Pain in joint, pelvic region and thigh Hypothyroidism, unspecified type Controlled type 2 diabetes mellitus with out complication, with long-term current use of insulin Healthcare maintenance Routine general medical examination at a health care facility documented in this encounter Care Teams Pharmacovigilance Safety Expert Relationship Specialty Start Date End Date Tom Hay MD PCP - General General Internal Medicine 09/15/18 [facility] [place] [address] documented as of this encounter
--- OUTSIDE RECORDS SUMMARY | 2022-07-12 00:51 | XMS_ITS | Encounter Summary ---
:1965 Author Organization [facility] [address] Care Team Providers Name Role Phone Tom Hay MD Primary Care Provider Reason for Referral Diagnostic Test (Routine) - Specialty Diagnoses / Procedures Referred By Contact Refer red To Contact Procedures Zleb Spine 3d MRI Cervical Spine wo [facility] Contrast (Generic) [place] [address] Referral ID Status Reason Start Date Expiration Visits Visits Date Requested Authorized [id number] Specialty 10/14/2018 04/12/2019 1 1 Service Requested Encounter Details Date Type Department Care Team Description 10/14/2018 External Results Spine Center at [facility] non Provider, [facility] [place] [address] Social History Tobacco Use Types Packs/Day [...] MD [facility] PLASTIC SURGERY [place] [address] ([facility]) 08/19/2022 Office Visit Podiatry Tom Titus DPM [place] [address] ([facility]) 09/08/2022 Office Visit Internal Medicine Janay Hay MD [facility] GENERAL INTERNAL MEDICINE [place], [place] [address] ( rk) 10/12/2059 Hospital Encounter Surgery Jim Hanley MD [facility] SPINE CENTER [place], [place] [address] (Wo josé luis) Scheduled Procedures Name Priority [...] on filedocumented in this encounter Care Teams Rigger Relationship Specialty Start Date End Date Tom Hay MD PCP - General General Internal Medicine 09/15/18 [facility] [place] [address] documented as of this encounter
--- OUTSIDE RECORDS SUMMARY | 2022-07-12 00:51 | XMS_ITS | Encounter Summary ---
:1965 Author Organization [facility] Address [address] [place] [address] Care Team Providers Name Role Phone Tom Hay MD Primary Care Provider Encounter Details Date Type Department Care Team Description 10/29/2018 Hospital Encounter XRay at [facility] Protrusion of cervical [address] [place] [address] [place] [phone] Social History Tobacco Use Types Packs/Day Years [...] 2 sprays by Nasal 0 27.5 mcg/actuation [place], route daily. SuspensionIndications: Indications: allergic rhinitis Allergic Rhinitis glipiZIDE (GLUCOTROL) 5 TAKE 1 TABLET BY 60 tablet 11 2018 mg Tablet MOUTH TWICE DAILY 0 BEFORE MEALS vitamin with Take 1 tablet by 0 avpxpahm-Km-Hepc-FA mouth daily. 2 Tablet esomeprazole (NEXIUM) 40 Take 1 capsule by 180 capsule 3 mg Capsule, Delayed mouth 2 times daily. 9 Release(E.C.) metroNIDAZOLE Apply topically 2 45 g 5 10/29/201802/09 (METROCREAM) 0.75 % Cream times daily. 2 montelukast (SINGULAIR) Take 1 tablet by 90 tablet 3 2018 10 mg Tablet mouth nightly. 9 levothyroxine (SYNTHROID) TAKE 2 TABLET BY 180 tablet 0 01/2019 150 mcg Tablet MOUTH DAILY(325 MCG 9 DAILY) varenicline (CHANTIX) 1 Take 1 tablet by [...] MOUTH THREE TIMES 0 Vertigo DAILY NEEDED BREO ELLIPTA 200-25 INHALE 1 PUFF INTO 3 each 3 08/30/20 18 mcg/dose Disk with Device THE LUNGS DAILY 9 naratriptan (AMERGE) 2.5 TAKE 1 TABLET BY 10 tablet 3 08/30 mg TabletIndications: MOUTH AT ONSET OF 9 Vertigo HEADACHE; IF RETURNS OR DOES NOT RESOLVE, MAY REPEAT AFTER4 HOURS blood sugar diagnostic Use as instructed to 100 each 11 strips StripIndications: check BG 4 times 9 Controlled type 2 daily. (Freestyle diabetes mellitus without Lite) complication, unspecified whether fdc insulin use methocarbamol (ROBAXIN) Take 1 tablet [...] mcg/actuation HFA Aerosol THE LUNGS EVERY 4 9 InhalerIndications: HOURS NEEDED Asthma, unspecified WHEEZING asthma severity, unspecified whether complicated, unspecified whether persistent ondansetron (ZOFRAN) 4 mg TAKE 1 TABLET BY 20 tablet 3 06/13 TabletIndications: MOUTH EVERY 8 HOURS 9 Vertigo NEEDED NAUSEA Clobetasol-Emollient 0.05 Apply twice daily to 200 g 0 06/29/2018 % FoamIndications: worse scalp 9 Psoriasis psoriasis [...] 2 diabetes mellitus without complication, unspecified whether 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 1 levothyroxine (SYNTHROID) Take 1 tablet by 90 tablet 2 04/11 25 mcg Tablet mouth daily. 9 valACYclovir (VALTREX) 1 Take 1 tablet by 18 tablet 0 04/20 gram Tablet mouth 2 times daily. 0 IBU 800 mg TAKE 1 TABLET BY 270 tablet 3 03/25/2018 02/29/20 1 TabletIndications: MOUTH EVERY 8 HOURS 9 Cervical radicular pain NEEDED PAIN tiotropium (SPIRIVA) 18 Inhale 1 capsule 90 capsule 3 2017 mcg Capsule, w/Inhalation into the lungs 9 Device daily. VITAMIN D 1,000 unit Take 2 [...] [facility] PLASTIC SURGERY [place] [phone] ( rk) 08/19/2022 Office Visit Podiatry Tom Titus DPM [place] [address] (Wo rk) 09/08/2022 Office Visit Internal Medicine Janay Hay MD [facility] GENERAL INTERNAL MEDICINE [place] [phone] ( rk) 10/12/2059 Hospital Encounter Surgery Jim Hanley MD [facility] SPINE CENTER [place] [phone] (Wo josé luis) Scheduled Procedures Name Priority [...] Associated Diagnosis Comme nts XR CERVICAL SPINE Routine 10/29/2018 8:31 AM Protrusion of cer vical Results for this 2 OR 3 VIEWS EST intervertebral disc procedur e are in the results section. documented in this encounter Results XR Cervical Spine 2 Or 3 Views (10/29/2018 8:31 AM EST) Anatomical Region Laterality Modality C-spine N/A Digital Radiography Specimen (Source) Anatomical Location Collection Method / Collectio n Time Received Time / Laterality Volume Impressions 10/29/2018 10:18 AM EST Anterolisthesis of C3 on C4 and C4 on C5 has progressed since 05/14/16, and is worse with flexion. Thank you for letting us participate in the care of this patient. For questions regarding this report, please contact e number below. ? Narrative 10/29/2018 10:18 AM EST EXAMINATION: XR CERVICAL SPINE 2 OR 3 VIEWS CLINICAL HISTORY: AP, lat flex/ext (3 vi ews) to evaluate cervical disc protrusion TECHNIQUE: 3 views of the cervical spine COMPARISON: Cervical spine radiographs 05/14/16 FINDINGS: The head is tilted to the right similar to the previous standing radiographs. C7 is poorly visualized on lateral views du e to superimposition of the shoulders. There is a similar amount of interverteb ral disc space loss at C5-C6 and C6-C7. The vertebral bodies are unchanged in he ight. Similar appearing endplate sclerotic and anterior proliferative viry nges greatest at C5-C6. 4 mm anterolisthesis of C3 on C4 and 5 m m anterolisthesis of C4 on C5, present during flexion. This has increased from the prior flexion radiograph. On the extension view, this improves to 2 mm an terolisthesis of C3 on C4 and 1 mm anterolisthesis of C4 on C5. No prevertebral soft tissue swelling. Procedure Note Ever Cordon MD - 10/29/2018Format ting of this note might be different from the original. EXAMINATION: XR CERVICAL SPINE 2 OR 3 EWS CLINICAL HISTORY: AP, lat flex/ext (3 vi ews) to evaluate cervical disc protrusion TECHNIQUE: 3 views of the cervical spine COMPARISON: Cervical spine radiographs 05/14/16 FINDINGS: The head is tilted to the right similar to the previous standing radiographs. C7 is poorly visualized on lateral views du e to superimposition of the shoulders. There is a similar amount of interverteb ral disc space loss at C5-C6 and C6-C7. The vertebral bodies are unchanged in he ight. Similar appearing endplate sclerotic and anterior proliferative viry nges greatest at C5-C6. 4 mm anterolisthesis of C3 on C4 and 5 m m anterolisthesis of C4 on C5, present during flexion. This has increased from the prior flexion radiograph. On the extension view, this improves to 2 mm an terolisthesis of C3 on C4 and 1 mm anterolisthesis of C4 on C5. No prevertebral soft tissue swelling. IMPRESSION Anterolisthesis of C3 on C4 and C4 on C5 has progressed since 05/14/16, and is worse with flexion. Thank you for letting us participate in the care of this patient. For questions regarding this report, please contact e number below. Tom Joyce MD IMG DX ORDERABLES documented in this encounter Visit Diagnoses Diagnosis Protrusion of cervical intervertebral di sc documented in this encounter Care Teams Order Expediter Relationship Specialty Start Date End Date Tom Hay MD PCP - General General Internal Medicine 09/15/18 [facility] GENERAL [place] [address] documented as of this encounter
--- OUTSIDE RECORDS SUMMARY | 2022-07-12 00:51 | XMS_ITS | Encounter Summary ---
:1965 Author Organization [facility] Address [address] [place] [place] [address] Care Team Providers Name Role Phone Tom Hay MD Primary Care Provider Reason for Visit Reason Comments Medication Refill Encounter Details Date Type Department Care Team Description 10/29/2018 Refill Internal Medicine at [facility] [place] [facility] [place] [address] General Internal Medicine [phone] [place], [place] [address] (Wo rk) Social History Tobacco [...] MD [facility] PLASTIC SURGERY [place] [phone] ( rk) 08/19/2022 Office Visit Podiatry Tom Titus DPM [place] [phone] ( rk) 09/08/2022 Office Visit Internal Medicine Janay Hay MD [facility] GENERAL INTERNAL MEDICINE [place] [phone] (Wo rk) 10/12/2059 Hospital Encounter Surgery Jim Hanley MD [facility] SPINE CENTER [place] [phone] (Flores ordonez) Scheduled Procedures Name Priority Associated [...] on filedocumented in this encounter Care Teams Tar Pot Man Relationship Specialty Start Date End Date Tom Hay MD PCP - General General Internal Medicine 09/15/18 [facility] [place] [address] documented as of this encounter
--- OUTSIDE RECORDS SUMMARY | 2022-07-12 00:51 | XMS_ITS | Encounter Summary ---
:1965 Author Organization [facility] Address [address] [place] [address] Care Team Providers Name Role Phone Tom Hay MD Primary Care Provider Encounter Details Date Type Department Care Team Description 10/29/2018 Hospital Encounter XRay at [facility] Tom Hay Chronic right hip [address] [facility] [address] Kevin MD pain [facility] [address] [place] [phone] GENERAL INTERNAL MEDICINE [place], [place] [address] Social History Tobacco Use Types [...] 2 sprays by Nasal 0 27.5 mcg/actuation [place], route daily. SuspensionIndications: Indications: allergic rhinitis Allergic Rhinitis glipiZIDE (GLUCOTROL) 5 TAKE 1 TABLET BY 60 tablet 11 2018 mg Tablet MOUTH TWICE DAILY 0 BEFORE MEALS vitamin with Take 1 tablet by 0 [id number] mouth daily. 2 Tablet esomeprazole (NEXIUM) 40 [...] diabetes mellitus without Lite) complication, unspecified whether penitentiary insulin use methocarbamol (ROBAXIN) Take 1 tablet [...] 5 06/29/201812/11 (NOVOTWIST) 32 gauge x Misc.(Non-Drug; 9 10/16 Needle Combo Route) route 4 times daily as needed. betamethasone, augmented, Apply to psoriasis 60 mL 1 (DIPROLENE) 0.05 % in scalp 1-2 times a 9 LotionIndications: day, 2-3 times a Psoriasis week ; with calcipotriene giana Calcipotriene 0.005 % Apply to psoriasis 60 mL 2 2017 SolutionIndications: in scalp 2-3 times a Psoriasis week, use with betamethasone giana insulin glargine (LANTUS Inject 48 Units 15 mL 11 2017 SOLOSTAR U-100 INSULIN) subcutaneously 0 100 unit/mL (3 mL) nightly. 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 hydroCHLOROthiazide Take 1 tablet by [...] MD [facility] PLASTIC SURGERY [place] [address] (Flores ordonez) 08/19/2022 Office Visit Podiatry Tom Titus DPM [place], [place] [address] (Flores ordonez) 09/08/2022 Office Visit Internal Medicine Janay Hay MD [facility] GENERAL INTERNAL MEDICINE [place], [place] [address] (Flores ordonez) 10/12/2059 Hospital Encounter Surgery Jim Hanley MD [facility] SPINE [place], [place] [address] (Wo rk) Scheduled Procedures Name [...] Priority Date/Time Associated Diagnosis Comme nts XR PELVIS AND HIP 2 Routine 10/29/2018 4:19 PM Chronic right h ip Results for this VIEWS RIGHT EST pain procedure are i n the results section. documented in this encounter Results XR Pelvis w AP & Lat Hip Right (10/29/2018 4:19 PM EST) Anatomical Region Laterality Modality Pelvis, Hip Right Digital Radiography Specimen (Source) Anatomical Location Collection Method / Collectio n Time Received Time / Laterality Volume Impressions 10/29/2018 4:26 PM EST 1. ??No fracture or dislocation 2. ??Hydroxyapatite deposition within or around the right greater trochanteric bursa, consider calcific bursitis. Findi ng likely contribute to pain. 3. ??Osteoarthropathy of both hips. Thank you for letting us participate in the care of this patient. For questions regarding this report, please contact e number below. ? Electronically signed by: Isabelle Pacheco [facility] ([phone]), at 10/29/2018 4:26 PM Narrative 10/29/2018 4:26 PM EST EXAMINATION: XR PELVIS W AP AND LAT HIP RIGHT CLINICAL HISTORY: pain- suspect OA, per ordering provider TECHNIQUE: 3 views , AP pelvis 2 views r ight hip COMPARISON: CT scan 2016. FINDINGS: Bones: No fracture is present. Hip Joints: Normal alignment Preserved joint spaces with bilateral ma rginal osteophytes and subchondral cysts in the acetabular roof. SI joints: Normal no erosions or ankylos is. Soft tissue: Several small amorphous round well sara nated calcifications surrounding the greater trochanter. No erosions seen Surgical carol in right lower quadrant . Procedure Note Isabelle Pacheco MD - 10/29/2018Formatt ing of this note might be different from the original. EXAMINATION: XR PELVIS W AP AND LAT HIP RIGHT CLINICAL HISTORY: pain- suspect OA, per ordering provider TECHNIQUE: 3 views , AP pelvis 2 views r ight hip COMPARISON: CT scan 2016. FINDINGS: Bones: No fracture is present. Hip Joints: Normal alignment Preserved joint spaces with bilateral ma rginal osteophytes and subchondral cysts in the acetabular roof. SI joints: Normal no erosions or ankylos is. Soft tissue: Several small amorphous round well sara nated calcifications surrounding the greater trochanter. No erosions seen Surgical carol in right lower quadrant . IMPRESSION 1. No fracture or dislocation 2. Hydroxyapatite deposition within or a round the right greater trochanteric bursa, consider calcific bursitis. Findi ng likely contribute to pain. 3. Osteoarthropathy of both hips. Thank you for letting us participate in the care of this patient. For questions regarding this report, please contact e number below. Tom Hay MD IMG DX ORDERABLES documented in this encounter Visit Diagnoses Diagnosis Chronic right hip pain Pain in joint, pelvic region and thigh documented in this encounter Care Teams Seismic Prospecting Observer Helper Relationship Specialty Start Date End Date Tom Hay MD PCP - General General Internal Medicine 09/15/18 [facility] GENERAL [place] [address] documented as of this encounter
--- OUTSIDE RECORDS SUMMARY | 2022-07-12 00:51 | XMS_ITS | Encounter Summary ---
:1965 Author Organization [facility] Address [address] [place] [address] Care Team Providers Name Role Phone Tom Hay MD Primary Care Provider Reason for Visit Reason Comments Medication Refill Encounter Details Date Type Department Care Team Description 10/02/2018 Ref[address] Medicine [address] [facility] [place] [facility] [place] [phone] General Internal Medicine [phone] [place], [place] [address] (Wo rk) Social History Tobacco [...] MD [facility] PLASTIC SURGERY [place] [phone] ( rk) 08/19/2022 Office Visit Podiatry Tom Titus DPM [place], [place] [address] (Wo rk) 09/08/2022 Office Visit Internal Medicine Janay Hay MD [facility] GENERAL INTERNAL MEDICINE [place], [place] [address] (Wo rk) 10/12/2059 Hospital Encounter Surgery Jim Hanley MD [facility] SPINE CENTER [place], [place] [address] (Wo rk) Scheduled Procedures Name [...] filedocumented in this encounter Care Teams Utility Lineman Relationship Specialty Start Date End Date Tom Hay MD PCP - General General Internal Medicine 09/15/18 [facility] GENERAL [place] [address] documented as of this encounter
--- OUTSIDE RECORDS SUMMARY | 2022-07-12 00:51 | XMS_ITS | Encounter Summary ---
:1965 Author Organization [facility] [address] Care Team Providers Name Role Phone Tom Hay MD Primary Care Provider Reason for Visit Reason Onset Date Comments Pharmacy Call 08/27/2018 Encounter Details Date Type Department Care Team Description 08/27/2018 Telephone Internal Medicine at [facility] Call [facility] [place] [address] Social History Tobacco Use Types Packs/Day [...] Encounter - Caitlin Martinez RN - 08/27/2018 4:04 PM EST Called pharmacist at [facility] back. She says that Medicare will not accept the diagnosis code givenand they want the form dated where a change was initiated. They are not happy with just the initials. Explained that the diagnosis code is the one for Type II Diabetes with use of insulin. Pharmacist is also frustrated because the person she has been speaking to will not tell her what shewants as a diagnosis code. Pharmacist will continue to try and get further information on this and try to resolve, so all information can be sent to our office and completed as Medicare desires. Telephone Encounter - Candie Holley - 08/27/2018 3:51 PM EST Message: Pharmacy called and spoke with pt insurance and they are still not happy with paperwork. Please call pharmacy. Caller and relationship (if other than patient-full name): [facility] Best time to call back: any Ok to leave a message: [y] Ok to send my- message: [n] Offered Appointment: n MA/Nurse contacted via: Message: y Call: y Pager: n documented in this encounter Plan of Treatment Upcoming Encounters Date Type Specialty Care Team Description 08/06/2022 Office Visit Plastic Surgery Peña Woodward MD [facility] PLASTIC SURGERY [place], [place] [address] (Wo rk) 08/19/2022 Office Visit Podiatry Tom Titus DPM [facility] [address] [place], [place] [address] (Wo rk) 09/08/2022 Office Visit Internal Medicine Janay Hay MD [facility] GENERAL INTERNAL MEDICINE [place], [place] [address] (Wo rk) 10/12/2059 Hospital Encounter Surgery Jim Hanley MD [facility] SPINE CENTER [place], [place] [address] (Wo rk) Scheduled Procedures Name [...] on filedocumented in this encounter Care Teams Pump And Blower Operator Relationship Specialty Start Date End Date Tom Hay MD PCP - General General Internal Medicine 09/15/18 [facility] [place] [address] documented as of this encounter
--- OUTSIDE RECORDS SUMMARY | 2022-07-12 00:51 | XMS_ITS | Encounter Summary ---
:1965 Author Organization [facility] Address [facility] [place] [address] Care Team Providers Name Role Phone Tom Hay MD Primary Care Provider Encounter Details Date Type Department Care Team Description 08/26/2018 Telephone Internal Medicine at [facility] Manuel Brown [facility] [place] [address] Social History Tobacco Use Types Packs/Day [...] Peña Woodward MD [facility] PLASTIC SURGERY [place], [place] [address] (Wo rk) 08/19/2022 Office Visit Podiatry Tom Titus DPM [place], [place] [address] (Wo rk) 09/08/2022 Office Visit Internal Medicine Janay Hay MD [facility] GENERAL INTERNAL MEDICINE [place], [place] [address] (Wo rk) 10/12/2059 Hospital Encounter Surgery Jim Hanley MD [facility] SPINE C[facility] [place], [place] [address] (Wo rk) Scheduled Procedures [...] on filedocumented in this encounter Care Teams B And B Gang Worker Relationship Specialty Start Date End Date Tom Hay MD PCP - General General Internal Medicine 09/15/18 [facility] GENERAL [place] [address] documented as of this encounter
--- OUTSIDE RECORDS SUMMARY | 2022-07-12 00:52 | XMS_ITS | Encounter Summary ---
:1965 Author Organization [facility] [place] [address] Care Team Providers Name Role Phone Chandler Bay Primary Care Provider Reason for Visit Reason Onset Date Comments Prior Authorization 06/17/2018 Encounter Details Date Type Department Care Team Description 06/17/2018 Telephone Dermatology at [facility] Jacob Blair [facility]ization [facility] [address] [place] [address] [facility] [place], [place] [address] (Wo rk) Social History Tobacco [...] Notes Telephone Encounter - Kris Anderson - 06/18/2018 7:38 AM EDT Prescriber Info: Jacob Blair MD Medication: Taclonex 0.005-0.064 % Suspension Diagnosis: Psoriasis (L40.9) Previous Medicines/Therapies: Clobetasol 0.05% Foam, Clobetasol 0.05% Solution, Diprolene 0.05% Ointment, Fluocinonide Oil, Kenalog 5mg/ml intralesional injections, [employer] Contact Info: [employer] [place] [employer]. . . Pharmacy Info: [id number] Status: DENIED Reason: Patient has not failed a trial of Betamethasone and Calcipotriene separately combined - denial letter scanned into chart Telephone Encounter - Kris Anderson - 06/17/2018 7:32 AM EDT Prescriber Info: Jacob Blair MD Medication: Taclonex 0.005-0.064 % Suspension Diagnosis: Psoriasis (L40.9) Previous Medicines/Therapies: Clobetasol 0.05% Foam, Clobetasol 0.05% Solution, Diprolene 0.05% Ointment, Fluocinonide Oil, Kenalog 5mg/ml intralesional injections, [employer] Contact Info: [employer] [place] [employer]. . . [facility]acy Info: [facility] #[id number] Status: Sent Via Fax 06/17/18 documented in this encounter Plan of Treatment Upcoming Encounters Date Type Specialty Care Team Description 08/06/2022 Office Visit Plastic Surgery Peña Woodward MD [facility] PLASTIC SURGERY [place], [place] [address] (Wo rk) 08/19/2022 Office Visit Podiatry Tom Titus DPM [place], [place] [address]375 (Wo rk) 09/08/2022 Office Visit Internal Medicine Janay Hay MD [facility] GENERAL INTERNAL MEDICINE [place], [place] [address] (Wo rk) 10/12/2059 Hospital Encounter Surgery Jim Hanley MD [facility] SPINE CENTER [place], [place] [address] (Wo rk) Scheduled Procedures Name [...] on filedocumented in this encounter Care Teams Wellness Guide Relationship Specialty Start Date End Date Chandler Bay PA PCP - General Internal Medicine 01/26/[address] [place] [address] [place] [address] documented as of this encounter
--- OUTSIDE RECORDS SUMMARY | 2022-07-12 00:52 | XMS_ITS | Encounter Summary ---
:1965 Author Organization [facility] [place] [address] Care Team Providers Name Role Phone Chandler Bay Primary Care Provider Encounter Details Date Type Department Care Team Description 06/18/2018 Orders Only Dermatology at [facility] Jacob Blair III, Psoriasis [address] [place] [address] [facility] [phone] [address], [place] [address] (Wo rk) Social History Tobacco [...] Woodward MD [facility] PLASTIC SURGERY [place] [phone] (Wo rk) 08/19/2022 Office Visit Podiatry Tom Titus DPM [place] [phone] (Wo rk) 09/08/2022 Office Visit Internal Medicine Janay Hay MD [facility] GENERAL INTERNAL MEDICINE [place] [phone] (Wo rk) 10/12/2059 Hospital Encounter Surgery Jim Hanley MD [facility] SPINE CENTER [place], [place] [address] (Wo rk) Scheduled Procedures Name [...] psoriasis documented in this encounter Care Teams Steam Tunnel Feeder Relationship Specialty Start Date End Date Chandler Bay PA PCP - General General Internal Medicine 01/26/18 8 [facility] [place] [address] documented as of this encounter
--- OUTSIDE RECORDS SUMMARY | 2022-07-12 00:52 | XMS_ITS | Encounter Summary ---
:1965 Author Organization [facility] [place] [address] Care Team Providers Name Role Phone Chandler Bay Primary Care Provider Reason for Visit Reason Onset Date Comments Medication Refill 06/29/2018 Encounter Details Date Type Department Care Team Description 06/29/2018 Refill Dermatology at [facility] Jacob Blair III, MD Psoriasis [address] [facility] [address] [facility] [address] [phone] [place], [place] [address] (Wo rk) Social History Tobacco [...] Woodward MD [facility] PLASTIC SURGERY [place] [phone] ([facility]) 08/19/2022 Office Visit Podiatry Tom Titus DPM [place] [address] ([facility]) 09/08/2022 Office Visit Internal Medicine Janay Hay MD [facility] GENERAL INTERNAL MEDICINE [place] [phone] ([facility]) 10/12/2059 Hospital Encounter Surgery Jim Hanley MD [facility] SPINE CENTER [place] [phone] ( josé luis) Scheduled Procedures Name Priority [...] psoriasis documented in this encounter Care Teams Pattern Marker Relationship Specialty Start Date End Date Chandler Bay PA PCP - General General Internal Medicine 01/26/[address] [place] [address] [place] [address] documented as of this encounter
--- OUTSIDE RECORDS SUMMARY | 2022-07-12 00:52 | XMS_ITS | Encounter Summary ---
:1965 Author Organization [facility] Address [facility] [place] [address] Care Team Providers Name Role Phone Chandler Bay Primary Care Provider Reason for Visit Consultation (Routine) - Closed Specialty Diagnoses / Referred By Contact Referred To Contact Procedures Maxillofacial Surgery Diagnoses Oral lesion Chandler Bay, Hugo Padron MD PA [facility] SURGERY General Internal [place] [address] [place] [address] Referral ID Status Reason Start Date Expiration Date Visits V isits Requested Authorized [id number] Closed Consult, 04/20/2018 04/20/2019 1 1 Test & Treat Encounter Details Date Type Department Care Team Description 06/15/2018 Office Visit Maxillofacial Surgery at Hugo Padron MD Oral lesion [facility] Kevin castañeda ORAL [place] [address] SURGERY [phone] [place] [address] (Wo rk) Social History Tobacco Use Types [...] - Inhaled Oxygen Concentration - - Weight 99.8 kg (220 lb) 06/15/2018 2:13 PM EDT Height 165.1 cm (5' 5) 06/15/2018 2:13 PM EDT Body Mass Index 36.61 06/15/2018 2:13 PM EDT documented in this encounter Progress Notes Hugo Padron MD - 06/15/2018 2:00 PM EDT Oral & Maxillofacial Surgery Lesion Consultation Emmanuelle Bynum is 52 y.o. female who was sent to us for consultation by Dr. Chandler Bay regarding lesion of lower lip. A history of the patient 's symptoms and physical signs was reviewed during the interview with attention to initial findings and progression, pain, bleeding, swelling, lumps, bumps, drainage, dysphagia, odynophagia, paresthesia, dysarthria and systemic effects. Documents including medical and dental office notes, radiographs or biopsy findings were also noted when available. Pertinent notations from today's history: ?? Bottom teeth extracted approximately one year ago ?? After having teeth extracted patient started biting lip which caused a sore to develop ?? Patient is continuously biting on sore now ?? Minimal bleeding from sore ?? Has never completely gone away ?? Frequently bites lower lip (dog bite several years ago in childhood). Past Medical History: Diagnosis Date ??? Allergy ??? Arthritis ??? Asthma ??? Cardiac disease ??? Cervicalgia ??? Combined forms of age-related cataract of both eyes 08/18/2016 ??? COPD (chronic obstructive pulmonary disease) 01/27/2018 ??? Depression ??? Diabetes mellitus ??? Diverticulosis ??? Dysphagia ??? Essential hypertension 01/27/2018 ??? Gallstones ??? GERD (gastroesophageal reflux disease) ??? Headache(784.0) ??? Hyperlipidemia 01/27/2018 ??? Leukocytosis 06/05/2011 ??? Mixed incontinence ??? Neuromuscular disorder ??? SEB (obstructive sleep apnea) ??? Rheumatic fever ??? Skin disease ??? Thyroid disease ??? Trauma Past Surgical History: Procedure Laterality Date ??? CARPAL TUNNEL RELEASE Left ??? SECTION x2 ??? HYSTERECTOMY ??? ORTHOPEDIC SURGERY left shoulder ??? ORTHOPEDIC SURGERY left elbow ??? PRO LAP, CHOLECYSTECTOMY N/A 07/27/2015 LAPAROSCOPIC CHOLECYSTECTOMY performed by Fabricio Grant MD at [facility] MAIN OR Social History Social History ??? Marital status: Spouse name: N/A ??? Number of children: 2 ??? Years of education: N/A Occupational History ??? disability Social History Main Topics ??? Smoking status: Current Every Day Smoker Packs/day: 1.00 Years: 13.00 Types: Cigarettes ??? Smokeless tobacco: Never Used ??? Alcohol use No ??? Drug use: Yes Special: Marijuana Comment: does not have card yet.. ??? Sexual activity: Not on file Comment: question deferred Other Topics Concern ??? Not on file Social History Narrative Brief Review of Systems conducted with comments regarding pulmonary, neurologic, cardiac, gastrointestinal, hepatic, renal and dermatological symptoms negative except as noted above. ??? metFORMIN (GLUCOPHAGE-XR) 500 mg Tablet Sustained Release 24 hr ??? insulin glargine (LANTUS SOLOSTAR U-100 INSULIN) 100 unit/mL (3 mL) pen ??? insulin pen, HumaLOG Luxura, Insulin Pen ??? blood sugar diagnostic strips Strip ??? insulin needles, disposable, 32 gauge x 5/32 Needle ??? hydroCHLOROthiazide (HYDRODIURIL) 50 mg Tablet ??? amitriptyline (ELAVIL) 25 mg Tablet ??? HUMALOG KWIKPEN 100 unit/mL Insulin Pen ??? amLODIPine (NORVASC) 10 mg Tablet ??? lancets (FREESTYLE LANCETS) 28 gauge Misc ??? glipiZIDE (GLUCOTROL) 5 mg Tablet ??? metFORMIN (GLUCOPHAGE) 1,000 mg Tablet ??? PROAIR HFA 90 mcg/actuation HFA Aerosol Inhaler ??? doxycycline monohydrate (MONODOX) 100 mg Capsule ??? cholecalciferol, Vitamin D3, 50,000 unit Capsule ??? levothyroxine (SYNTHROID) 150 mcg Tablet ??? levothyroxine (SYNTHROID) 25 mcg Tablet ??? valACYclovir (VALTREX) 1 gram Tablet ??? venlafaxine (EFFEXOR) 25 mg Tablet ??? IBU 800 mg Tablet ??? BREO ELLIPTA 200-25 mcg/dose Disk with Device ??? tiotropium (SPIRIVA) 18 mcg Capsule, w/Inhalation Device ??? montelukast (SINGULAIR) 10 mg Tablet ??? varenicline (CHANTIX) 1 mg Tablet ??? VITAMIN D 1,000 unit Tablet ??? methocarbamol (ROBAXIN) 750 mg Tablet ??? ondansetron (ZOFRAN) 4 mg Tablet ??? meclizine (ANTIVERT) 25 mg Tablet ??? naratriptan (AMERGE) 2.5 mg Tablet ??? Clobetasol-Emollient 0.05 % Foam ??? betamethasone-calcipotriene (TACLONEX SCALP) 0.005-0.064 % Suspension ??? cycloSPORINE (RESTASIS) 0.05 % Dropperette ??? estradiol (ESTRACE) 1 mg Tablet ??? nystatin (MYCOSTATIN) 100,000 unit/mL Suspension ??? carisoprodol (SOMA) 350 mg Tablet ??? gabapentin (NEURONTIN) 600 mg Tablet ??? fluticasone (VERAMYST) 27.5 mcg/actuation [place], Suspension ??? promethazine (PHENERGAN) 25 mg tablet ??? ALPRAZolam (XANAX) 1 mg tablet ??? FLUoxetine (PROZAC) 40 mg capsule ??? aripiprazole (ABILIFY) 30 mg tablet ??? esomeprazole (NEXIUM) 40 mg capsule Allergies Allergen Reactions ??? Clonidine (Pf) Other (See Comments) stenens johnsons syndrome ??? Codeine Itching and Nausea Only ??? Methadone Nausea And Vomiting Physical Exam: Extra-oral exam was conducted including facial symmetry, sensory and motor function, alertness and appropriateness to questions and requests, range of jaw motion, TMJ function and skeletal architecture. Neck exam was conducted with attention to normal musculature, vasculature and potential adenopathy. Intra-oral exam included evaluation of tongue mobility and surface consistency - both dorsal and ventral, floor of mouth, buccal and labial mucosa, maxillary and mandibular vestibules, hard and soft palate and oropharynx as well as dentition and alveolar process, dental arches and occlusion as well assalivary flow. The exam also included bimanual palpation of the floor of the mouth with attention tothe submandibular triangle. Notable findings on this examination included: ?? Oropharynx unremarkable ?? Palate demonstrates erythematous leukoplakic areas that are generalized and pigmented lesions arealso noted. Some appear vascular and one in particular is consistent with amalgam tattoo. ?? Dorsal and ventral aspects of tongue unremarkable ?? Anterior FOM WNL ?? 5 mm papillary lesion lower lip to the left of midline without ulceration. Separate from underlying 1.5 cm vascular lesion. ?? Buccal mucosa wnl ?? No cervical lymphadenopathy none Impression: Papillary leukoplakic lesion in the lower lip overlying a vascular lesion (venous ambriz) - similar lesion left lower lip adjacent to the commissure - demonstrated to the patient. Recommendations and Plan: Excision of the lower lip lesion; continued observation of the vascular lesions and strong recommendations to avoid tobacco use in order to decrease the leukoplakic areas noted in the palatal mucosa. - also demonstrated to the patient. She would prefer local anesthesia and ishaving restorations performed in the next couple of days and does not want this to interfere. She isalso concerned about the effects of medications and would prefer to avoid sedation. Time Statement: Thirty minutes was spent with the patient greater than 20 minutes of which included direct discussion regarding the clinical and radiographic findings where indicated, the potential diagnoses and a review of the natural history as well as treatment alternatives, their benefits and atten dant risks. Emmanuelle was given an opportunity to ask questions and instructed to contact us if further questions arise following the consultation. IAracelis RN, have performed the documentation for this encounter in the presence of and acting as a scribe for HUGO PADRON MD. documented in this encounter Plan of Treatment Upcoming Encounters Date Type Specialty Care Team Description 08/06/2022 Office Visit Plastic Surgery Peña Woodward MD [facility] PLASTIC SURGERY [place] [phone] ( rk) 08/19/2022 Office Visit Podiatry Tom Titus DPM [place] [phone] (Wo rk) 09/08/2022 Office Visit Internal Medicine Janay Hay MD [facility] GENERAL INTERNAL MEDICINE [place], [place] [address] (Wo rk) 10/12/2059 Hospital Encounter Surgery Jim Hanley MD [facility] SP[facility]ENTER [place], [place] [address] (Wo rk) Scheduled Procedures Name [...] S chedule Referral to ENT Outpatient Referral Routine Oral lesion Order ed: 04/20/2018 documented as of this encounter Visit Diagnoses Diagnosis Oral lesion Other and unspecified diseases of the or al soft tissues documented in this encounter Care Teams Health Concierge Relationship Specialty Start Date End Date Chandler Bay PA PCP - General General Internal Medicine 01/26/18 8 [facility] [place] [address] documented as of this encounter
--- OUTSIDE RECORDS SUMMARY | 2022-07-12 00:52 | XMS_ITS | Encounter Summary ---
:1965 Author Organization [facility] Address [facility] [place] [address] Care Team Providers Name Role Phone Chandler Bay Primary Care Provider Reason for Visit Reason Onset Date Comments Medication Problem 06/29/2018 Encounter Details Date Type Department Care Team Description 06/29/2018 Refill Internal Medicine at [facility] [place] [address] Social History Tobacco Use Types Packs/Day [...] Telephone Encounter - Caitlin Martinez RN - 06/29/2018 11:50 AM EDT Called [facility] and spoke with pharmacist. She asked for an order for Humalog Kwik Pen. The Humalog Luxura is a device. Gave verbal order for patient's Humalog Kwik Pen, 3-30 units subcutaneously three times a day. She is also going to send a TEVIN form over that needs to be completed for blood sugar test strips. Lastly, she needs an order for Novotwist needles 32 gauge 5 ml. Telephone Encounter - Jenny Balderrama - 06/29/2018 11:12 AM EDT Pharmacy or caller: self Phone Number: call pharmacy at- [phone] ask to speak with Tracey Medication: insulin pen, HumaLOG Luxura, Insulin Pen & blood sugar diagnostic strips Strip Message: pt states there are lots of issues witht these prescriptions and the pharmacy has been trying to fax us for a few weeks now with no response. Pt is very upset that we have not responded and now she is out of medications. Pt states we need to call the pharmacy to discuss the issues and what needs to be done to resolve them. Please call pharmacy documented in this encounter Plan of Treatment Upcoming Encounters Date Type Specialty Care Team Description 08/06/2022 Office Visit Plastic Surgery Peña Woodward MD [facility] PLASTIC SURGERY [place], [place] [address] (Wo rk) 08/19/2022 Office Visit Podiatry Tom Titus DPM [facility] DRIVE [place], [place] [address] (Wo rk) 09/08/2022 Office Visit Internal Medicine Janay Hay MD [facility] GENERAL INTERNAL MEDICINE [place], [place] [address] (Wo rk) 10/12/2059 Hospital Encounter Surgery Jim Hanley MD [facility] SPINE CENTER [place], [place] [address] (Wo rk) Scheduled Procedures Name [...] on filedocumented in this encounter Care Teams Doctor Of Naprapathic Medicine Relationship Specialty Start Date End Date Chandler Bay PA PCP - General General Internal Medicine 01/26/18 8 [facility] [place] [address] documented as of this encounter
--- OUTSIDE RECORDS SUMMARY | 2022-07-12 00:52 | XMS_ITS | Encounter Summary ---
:1965 [address] [facility] [place] [address] Care Team Providers Name Role Phone Chandler Bay Primary Care Provider Reason for Visit Reason Comments Medication Refill Encounter Details Date Type Department Care Team Description 07/29/2018 Refill Internal Medicine at [facility] Chandler Bay PA [facility] [address] General Internal Medicine [phone] [place] [address] (Wo rk) Social History Tobacco Use Types [...] MD [facility] PLASTIC SURGERY [place] [phone] ([facility]) 08/19/2022 Office Visit Podiatry Tom Titus DPM [place], [place] [address] ([facility]) 09/08/2022 Office Visit Internal Medicine Janay Hay MD [facility] GENERAL INTERNAL MEDICINE [place], [place] [address] ( rk) 10/12/2059 Hospital Encounter Surgery Jim Hanley MD [facility] SPINE CENTER [place], [place] [address] (Wo josé luis) Scheduled Procedures [...] giddiness documented in this encounter Care Teams Fisher Relationship Specialty Start Date End Date Chandler Bay PA PCP - General General Internal Medicine 01/26/[address] [place] [address] [place] [address] documented as of this encounter
--- OUTSIDE RECORDS SUMMARY | 2022-07-12 00:52 | XMS_ITS | Encounter Summary ---
:1965 Author Organization [facility] Address [facility] [place] [address] Care Team Providers Name Role Phone [place] Primary Care Provider Encounter Details Date Type Department Care Team Description 05/12/2018 Telephone Internal Medicine at [facility] Manuel Brown [facility] [place] [address] Social History Tobacco Use Types Packs/Day [...] Office Visit Plastic Surgery Peña Woodward MD [facility] PLASTIC SURGERY [place] [phone] (Wo rk) 08/19/2022 Office Visit Podiatry Tom Titus DPM [place] [phone] (Wo rk) 09/08/2022 Office Visit Internal Medicine Janay Hay MD [facility] GENERAL INTERNAL MEDICINE [place] [phone] (Wo rk) 10/12/2059 Hospital Encounter Surgery Jim Hanley MD [facility] SPINE CENTER [place] [phone] (Wo rk) Scheduled Procedures Name Priority Associated [...] on filedocumented in this encounter Care Teams Dental Sales Representative Relationship Specialty Start Date End Date [place] PA PCP - General Internal Medicine 01/26/[address] [place] [address] [place] [address] documented as of this encounter
--- OUTSIDE RECORDS SUMMARY | 2022-07-12 00:52 | XMS_ITS | Encounter Summary ---
:1965 Author Organization [facility] Address [facility] [address] [place] [id number] Care Team Providers Name Role Phone [place] Primary Care Provider Reason for Visit Reason Comments Medication Refill Encounter Details Date Type Department Care Team Description 07/15/2018 Refill Internal Medicine at [place] PA Asthma, unspecified [facility] asthma severity, [facility] General Internal unspe cified whether Drive Medicine complicated, [place] [phone] [place] [address] unspecified whether [phone] (Wo rk) persistent Social History Tobacco Use [...] Woodward MD [facility] PLASTIC SURGERY [place] [address] ([facility]) 08/19/2022 Office Visit Podiatry Tom Titus DPM [place] [phone] ([facility]) 09/08/2022 Office Visit Internal Medicine Janay Hay MD [facility] GENERAL INTERNAL MEDICINE [place] [phone] ([facility]) 10/12/2059 Hospital Encounter Surgery Jim Hanley MD [facility] SPINE CENTER [place] [phone] ([facility]) Scheduled Procedures Name Priority Associated Diagnoses Date/Time @ARTHRODESIS, POSTERIOR CERVICAL Cervical spondy losis with [facility] myelopathy Neck pain Pseudoarthrosis of [...] documented in this encounter Care Teams Floor Coverer Apprentice Relationship Specialty Start Date End Date [place] PA PCP - General Internal Medicine 01/26/[address] [place] [address] [place] [address] documented as of this encounter
--- OUTSIDE RECORDS SUMMARY | 2022-07-12 00:52 | XMS_ITS | Encounter Summary ---
:1965 Author Organization [facility] Address [address] [place] [address] Care Team Providers Name Role Phone [place] Primary Care Provider Encounter Details Date Type Department Care Team Description 05/05/2018 Orders Only Internal Medicine at [facility] [place] Type 2 diabetes [facility] mellitus without [facility] complicat ion, with Drive [place] [address] of insulin [phone] Social History Tobacco Use Types Packs/Day Years [...] [facility] PLASTIC SURGERY [place], [place] 0375 (Wo rk) 08/19/2022 Office Visit Podiatry Tom Titus DPM [place], [place] 0375 (Wo rk) 09/08/2022 Office Visit Internal Medicine Janay Hay MD [facility] GENERAL INTERNAL MEDICINE [place], [place] 0375 (Wo rk) 10/12/2059 Hospital Encounter Surgery Jim Hanley MD [facility] SPINE CENTER [place], [place] 0375 (Wo rk) Scheduled Procedures Name [...] Visit Diagnoses Diagnosis Type 2 diabetes mellitus without complic ation, with long-term current use of insulin documented in this encounter Care Teams Quality Control Head Relationship Specialty Start Date End Date [place] PA PCP - General General Internal Medicine 01/26/[address] [place] [address] [place] [address] documented as of this encounter
--- OUTSIDE RECORDS SUMMARY | 2022-07-12 00:52 | XMS_ITS | Encounter Summary ---
:[address] [facility] [place] [address] Care Team Providers Name Role Phone [place] Primary Care Provider Reason for Visit Reason Comments Medication Refill Encounter Details Date Type Department Care Team Description 07/03/2018 Refill Internal Medicine at [facility] [place] PA [facility] [place] [address] General Internal Medicine [phone] [place] [address] (Wo rk) Social History Tobacco Use Types [...] Woodward MD [facility] PLASTIC SURGERY [place] [phone] ([facility]) 08/19/2022 Office Visit Podiatry Tom Titus DPM [place], [place] 0375 ([facility]) 09/08/2022 Office Visit Internal Medicine Janay Hay MD [facility] GENERAL INTERNAL MEDICINE [place], [place] 0375 ( rk) 10/12/2059 Hospital Encounter Surgery Jim Hanley MD [facility] SPINE CENTER [place], [place] 0375 (Wo josé luis) Scheduled Procedures [...] giddiness documented in this encounter Care Teams Director Of Revenue Cycle Management Relationship Specialty Start Date End Date [place] PA PCP - General General Internal Medicine 01/26/[address] [place] [address] [place] [address] documented as of this encounter
--- OUTSIDE RECORDS SUMMARY | 2022-07-12 00:52 | XMS_ITS | Encounter Summary ---
:1965 Author Organization [facility] [place] [address] Care Team Providers Name Role Phone [place] Primary Care Provider Reason for Visit Reason Onset Date Comments Letter/Form 07/01/2018 Encounter Details Date Type Department Care Team Description 07/01/2018 Telephone Internal Medicine at [facility] Candie Holley Letter/Form [facility] [place] [address] Social History Tobacco Use Types Packs/Day [...] Notes Telephone Encounter - Candie Holley - 07/01/2018 10:45 AM EDT Message: Pt is very unhappy that the letter she spoke with YUNIOR Anton at her OV on 06/15/18 regarding her OTC medications has not been mailed to her. Pt needs this letter SCOTTY please. Caller and relationship (if other than patient-full [...] [facility] PLASTIC SURGERY [place], [place] 5[address] (Wo rk) 08/19/2022 Office Visit Podiatry Tom Titus DPM [place], [place] 2977 (Wo rk) 09/08/2022 Office Visit Internal Medicine Janay Hay MD [facility] GENERAL INTERNAL MEDICINE [place], [place] 0988 (Wo rk) 10/12/2059 Hospital Encounter Surgery Jim Hanley MD [facility] SPINE CENTER [place], [place] 0375 (Wo rk) Scheduled Procedures Name [...] in this encounter Care Teams Director Of Entertainment Relationship Specialty Start Date End Date [place] PA PCP - General General Internal Medicine 01/26/18 8 [facility] [place] [address] documented as of this encounter
--- OUTSIDE RECORDS SUMMARY | 2022-07-12 00:52 | XMS_ITS | Encounter Summary ---
:1965 Author Organization [facility] Address [facility] [place] [address] Care Team Providers Name Role Phone [place] Primary Care Provider Reason for Visit Reason Onset Date Comments Medication Refill 06/30/2018 Encounter Details Date Type Department Care Team Description 06/30/2018 [facility] Per[facility] dermat[facility] [address] [facility] [place] [address] [facility] [address]-DERMATOLGY [phone] [place], [place] 0375 (Wo rk) Social History Tobacco [...] Woodward MD [facility] PLASTIC SURGERY [place] 162345 ([facility]) 08/19/2022 Office Visit Podiatry Tom Titus DPM [place] [phone] ([facility]) 09/08/2022 Office Visit Internal Medicine Janay Hay MD [facility] GENERAL INTERNAL MEDICINE [place] [phone] ( rk) 10/12/2059 Hospital Encounter Surgery Jim Hanley MD [facility] SPINE CENTER [place] 162345 ( rk) Scheduled Procedures Name Priority Associated [...] as of this encounter Visit Diagnoses Diagnosis Perioral dermatitis Rosacea documented in this encounter Care Teams Heater Operator Helper Relationship Specialty Start Date End Date [place] PA PCP - General Internal Medicine 01/26/[address] [place] [address] [place] [address] documented as of this encounter
--- OUTSIDE RECORDS SUMMARY | 2022-07-12 00:52 | XMS_ITS | Encounter Summary ---
:1965 Author Organization [facility] Address [facility] [place] [address] Care Team Providers Name Role Phone Tom Hay MD Primary Care Provider Reason for Visit Reason Comments Medication Refill Encounter Details Date Type Department Care Team Description 06/09/2018 Refill Internal Medicine at [facility] Carmen Reyes MD [facility]3] [place] [address] GENERAL INTERNAL MEDICINE [phone] [place] [address] (Wo rk) Social History Tobacco Use Types [...] MD [facility] PLASTIC SURGERY [place] 058015 ([facility]) 08/19/2022 Office Visit Podiatry Tom Titus DPM [place] [address] ([facility]) 09/08/2022 Office Visit Internal Medicine Janay Hay MD [facility] GENERAL INTERNAL MEDICINE [place] 058015 ( rk) 10/12/2059 Hospital Encounter Surgery Jim Hanley MD [facility] SPINE CENTER [place], [place] 0375 (Wo josé luis) Scheduled Procedures [...] documented as of this encounter Care Teams Shingle Sawyer Relationship Specialty Start Date End Date Tom Hay MD PCP - General General Internal Medicine 09/15/18 [facility] [place] [address] documented as of this encounter
--- OUTSIDE RECORDS SUMMARY | 2022-07-12 00:52 | XMS_ITS | Encounter Summary ---
:1965 Author Organization [facility] [place] [address] Care Team Providers Name Role Phone [place] Primary Care Provider Reason for Visit Reason Onset Date Comments Other 05/14/2018 Encounter Details Date Type Department Care Team Description 05/14/2018 Telephone Internal Medicine at [place] Austyn Vasques Other [facility] Kevin castañ[place] [address] Social History Tobacco Use Types Packs/Day [...] this encounter Miscellaneous Notes Telephone Encounter - Austyn Vasques - 05/14/2018 12:22 PM EDT Pharmacy or caller: Tracey [employer] [facility] Medication: insulin pen, HumaLOG Luxura, Insulin Pen Message: Tracey is calling because she was wondering if if this insulin pen is suppose to be the Humalog. Tracey would like some clarification. Please give a call back to discuss. documented in this encounter Plan of Treatment Upcoming Encounters Date Type Specialty Care Team Description 08/06/2022 Office Visit Plastic Surgery Peña Woodward MD [facility] PLASTIC SURGERY [place] [phone] ([place] ord[place]ez) 08/19/2022 Office Visit Podiatry Tom Titus DPM [place], [place] 0375 (Wo rk) 09/08/2022 Office Visit Internal Medicine Janay Hay MD [facility] GENERAL INTERNAL MEDICINE [place], [place] 0375 (Flores ordonez) 10/12/2059 Hospital Encounter Surgery Jim Hanley MD [facility] SPINE CENTER [place], [place] 0375 (Wo rk) Scheduled Procedures Name [...] on filedocumented in this encounter Care Teams Pediatric Rn Relationship Specialty Start Date End Date [place] PA PCP - General General Internal Medicine 01/26/18 8 [facility] [place] [address] documented as of this encounter
--- OUTSIDE RECORDS SUMMARY | 2022-07-12 00:52 | XMS_ITS | Encounter Summary ---
:1965 Author Organization [facility] Address [facility] [place] [address] Care Team Providers Name Role Phone [place] Primary Care Provider Reason for Visit Reason Onset Date Comments Medication Refill 05/07/2018 Encounter Details Date Type Department Care Team Description 05/07/2018 Refill Internal Medicine at [facility] [place] [facility] [place] [address] General Internal Medicine [phone] [place] [phone] (Wo rk) Social History Tobacco Use Types [...] MD [facility] PLASTIC SURGERY [place] [phone] ( rk) 08/19/2022 Office Visit Podiatry Tom Titus DPM [place] 278235 ([facility]) 09/08/2022 Office Visit Internal Medicine Janay Hay MD [facility] GENERAL INTERNAL MEDICINE [place], [place] 0375 ( rk) 10/12/2059 Hospital Encounter Surgery Jim Hanley MD [facility] SPINE CENTER [place], [place] 037 (Flores ordonez) Scheduled Procedures Name Priority Associated [...] on filedocumented in this encounter Care Teams Mental Health Program Director Relationship Specialty Start Date End Date [place] PA PCP - General General Internal Medicine 01/26/[address] [place] [address] [place] [address] documented as of this encounter
--- OUTSIDE RECORDS SUMMARY | 2022-07-12 00:52 | XMS_ITS | Encounter Summary ---
:1965 Author Organization [facility] Address [facility] [place] [address] Care Team Providers Name Role Phone [place] Primary Care Provider Reason for Visit Reason Comments Medication Refill Encounter Details Date Type Department Care Team Description 07/13/2018 Refill Internal Medicine at [place] PA Cervical radicular pain [facility] [place] [address] [place] [address] [phone] (Wo rk) Social History Tobacco Use Types [...] Visit Plastic Surgery Peña Woodward MD [facility] PLASTIC SURGERY [place] [phone] ([facility]) 08/19/2022 Office Visit Podiatry Tom Titus DPM [place] [phone] ([facility]) 09/08/2022 Office Visit Internal Medicine Janay Hay MD [facility] GENERAL INTERNAL MEDICINE [place] [phone] ( rk) 10/12/2059 Hospital Encounter Surgery Jim Hanley MD [facility] SPINE CENTER [place], [place] 0375 (Wo josé luis) Scheduled Procedures [...] documented in this encounter Care Teams Senior Php Software Developer Relationship Specialty Start Date End Date [place] PA PCP - General Internal Medicine 01/26/[address] [place] [address] [place] [address] documented as of this encounter
--- OUTSIDE RECORDS SUMMARY | 2022-07-12 00:52 | XMS_ITS | Encounter Summary ---
:1965 Author Organization [facility] Address [facility] [place] [address] Care Team Providers Name Role Phone [place] Primary Care Provider Encounter Details Date Type Department Care Team Description 05/11/2018 [address] [facility] Manuel Brown [facility] [place] [address] Social History Tobacco Use Types Packs/Day [...] MD [facility] PLASTIC SURGERY [place] [phone] (Wo rk) 08/19/2022 Office Visit Podiatry Tom Titus DPM [place] [phone] (Wo rk) 09/08/2022 Office Visit Internal Medicine Janay Hay MD [facility] GENERAL INTERNAL MEDICINE [place] [phone] (Wo rk) 10/12/2059 Hospital Encounter Surgery Jim Hanley MD [facility] SPINE CENTER [place] [address]4925 (Wo rk) Scheduled Procedures Name Priority Associated [...] on filedocumented in this encounter Care Teams Drug Safety Coordinator Relationship Specialty Start Date End Date Chandler [place] PA PCP - General Internal Medicine 01/26/[address] [place] [address] [place] [address] documented as of this encounter
--- OUTSIDE RECORDS SUMMARY | 2022-07-12 00:52 | XMS_ITS | Encounter Summary ---
:1965 Author Organization [facility] Address [facility] [place] [address] Care Team Providers Name Role Phone [place] Primary Care Provider Encounter Details Date Type Department Care Team Description 06/22/2018 Telephone Internal Medicine at [facility] Manuel Brown [facility] [place] [address] Social History Tobacco Use Types Packs/Day [...] Description 08/06/2022 Office Visit Plastic Surgery Peña Woodwadr MD [facility] PLASTIC SURGERY [place], [place] 0375 (Wo rk) 08/19/2022 Office Visit Podiatry Tom Titus DPM [place], [place] 0375 (Wo rk) 09/08/2022 Office Visit Internal Medicine Janay Hay MD [facility] GENERAL INTERNAL MEDICINE [place], [place] 0375 (Wo rk) 10/12/2059 Hospital Encounter Surgery Jim Hanley MD [facility] SPINE CENTER [place], [place] 0375 (Wo rk) Scheduled Procedures Name [...] on filedocumented in this encounter Care Teams Power Press Operator Relationship Specialty Start Date End Date [place] PA PCP - General General Internal Medicine 01/26/[address] [place] [address] [place] [address] documented as of this encounter
--- OUTSIDE RECORDS SUMMARY | 2022-07-12 00:52 | XMS_ITS | Encounter Summary ---
:1965 Author Organization [facility] Address [facility] [place] [address] Care Team Providers Name Role Phone [place] Primary Care Provider Reason for Visit Reason Onset Date Comments Medication Refill 05/05/2018 Encounter Details Date Type Department Care Team Description 05/05/2018 Refill Internal Medicine at [facility] Joan Chaney Type 2 diabetes mellitus [facility] D garry without complication, [place] [address] long-term current use of [phone] insulin Social History Tobacco Use Types Packs/Day Years [...] MD [facility] PLASTIC SURGERY [place], [place] 0375 (Wo rk) 08/19/2022 Office Visit Podiatry Tom Titus DPM [place], [place] 0375 (Wo rk) 09/08/2022 Office Visit Internal Medicine Janay Hay MD [facility] GENERAL INTERNAL MEDICINE [place], [place] 0375 (Wo rk) 10/12/2059 Hospital Encounter Surgery Jim Hanley MD [facility] SPINE CENTER [place], [place] 0375 (Wo rk) Scheduled Procedures Name [...] insulin documented in this encounter Care Teams Engine Emission Technician Relationship Specialty Start Date End Date [place] PA PCP - General Internal Medicine 01/26/18 8 [facility] [place] [address] documented as of this encounter
--- OUTSIDE RECORDS SUMMARY | 2022-07-12 00:52 | XMS_ITS | Encounter Summary ---
:1965 Author Organization [facility] Address [facility] [place] [address] Care Team Providers Name Role Phone [place] Primary Care Provider Reason for Visit Reason Onset Date Comments Medication Refill 05/04/2018 Encounter Details Date Type Department Care Team Description 05/04/2018 Refill Internal Medicine at [facility] [place] [facility] [place] [address] General Internal Medicine [phone] [place] [address]885 (Wo rk) Social History Tobacco Use Types [...] Peña Woodward MD [facility] PLASTIC SURGERY [place] 344435 ( rk) 08/19/2022 Office Visit Podiatry Tom Titus DPM [place] 129035 ([facility]) 09/08/2022 Office Visit Internal Medicine Janay Hay MD [facility] GENERAL INTERNAL MEDICINE [place], [place] 0375 ( rk) 10/12/2059 Hospital Encounter Surgery Jim Hanley MD [facility] SPINE CENTER [place], [place] 0372 (Flores ordonez) Scheduled Procedures Name Priority Associated [...] on filedocumented in this encounter Care Teams Filter Worker Relationship Specialty Start Date End Date [place] PA PCP - General General Internal Medicine 01/26/[address] [place] [address] [place] [address] documented as of this encounter
--- OUTSIDE RECORDS SUMMARY | 2022-07-12 00:52 | XMS_ITS | Encounter Summary ---
:1965 Author Organization [facility] Address [facility] [place] [address] Care Team Providers Name Role Phone [place] Primary Care Provider Reason for Visit Reason Comments Medication Refill Encounter Details Date Type Department Care Team Description 06/08/2018 Refill Internal Medicine at [facility] [place] [facility] [place] [address] General Internal Medicine [phone] [place], [place] 0375 (Wo rk) Social History Tobacco [...] Woodward MD [facility] PLASTIC SURGERY [place] [address]18965 ([facility]) 08/19/2022 Office Visit Podiatry Tom Titus DPM [place], [place] 0375 ([facility]) 09/08/2022 Office Visit Internal Medicine Janay Hay MD [facility] GENERAL INTERNAL MEDICINE [place], [place] 0375 ( rk) 10/12/2059 Hospital Encounter Surgery Jim Hanley MD [facility] SPINE CENTER [place], [place] 0375 (Wo josé luis) Scheduled Procedures [...] on filedocumented in this encounter Care Teams Welder Relationship Specialty Start Date End Date [place] PA PCP - General General Internal Medicine 01/26/[address] [place] [address] [place] [address] documented as of this encounter
--- OUTSIDE RECORDS SUMMARY | 2022-07-12 00:52 | XMS_ITS | Encounter Summary ---
:1965 Author Organization [facility] Address [facility] [place] [address] Care Team Providers Name Role Phone Chadn[place] Primary Care Provider Reason for Visit Reason Onset Date Comments Medication Refill 06/03/2018 Encounter Details Date Type Department Care Team Description 06/03/2018 Refill Internal Medicine at Natasha Lehman T ype [address] [facility] without complication, [facility] D [place] [address] use of insulin [phone] Social History Tobacco Use Types Packs/Day Years [...] [facility] PLASTIC SURGERY [place], [place] 0375 (Wo rk) 08/19/2022 Office Visit Podiatry Tom Titus DPM [place], [place] 0375 (Wo rk) 09/08/2022 Office Visit Internal Medicine Janay Hay MD [facility] GENERAL INTERNAL MEDICINE [place], [place] 0375 (Wo rk) 10/12/2059 Hospital Encounter Surgery Jim Hanlye MD [facility] SPINE CENTER [place], [place] 0375 (Wo rk) Scheduled Procedures Name [...] insulin documented in this encounter Care Teams Sample Examiner Relationship Specialty Start Date End Date Chandler Bya PA PCP - General General Internal Medicine 01/26/[address] [place] [address] [place] [address] documented as of this encounter
--- OUTSIDE RECORDS SUMMARY | 2022-07-12 00:52 | XMS_ITS | Encounter Summary ---
:[address] [facility] [place] [address] Care Team Providers Name Role Phone [place] Primary Care Provider Reason for Visit Reason Comments Medication Refill Encounter Details Date Type Department Care Team Description 06/29/2018 Refill Internal Medicine at [facility] [place] [facility] [place] [address] General Internal Medicine [phone] [place] [address] (Wo rk) Social History Tobacco Use Types [...] MD [facility] PLASTIC SURGERY [place] [phone] ([facility]) 08/19/2022 Office Visit Podiatry Tom Titus DPM [place], [place] [address] ([facility]) 09/08/2022 Office Visit Internal Medicine Janay Hay MD [facility] GENERAL INTERNAL MEDICINE [place], [place] [address] ( rk) 10/12/2059 Hospital Encounter Surgery Jim Hanley MD [facility] SPINE CENTER [place], [place] [address] (Wo josé luis) Scheduled Procedures [...] giddiness documented in this encounter Care Teams Feather Separator Relationship Specialty Start Date End Date [place] PA PCP - General General Internal Medicine 01/26/[address] [place] [address] [place] [address] documented as of this encounter
--- OUTSIDE RECORDS SUMMARY | 2022-07-12 00:52 | XMS_ITS | Encounter Summary ---
:1965 Author Organization [facility] Address [facility] [place] [address] Care Team Providers Name Role Phone [place] Primary Care Provider Reason for Visit Reason Onset Date Comments Medication Refill 05/05/2018 Encounter Details Date Type Department Care Team Description 05/05/2018 Refill Internal Medicine at [facility] Joan Chaney [facility] Kevin [place]añ[place] [address] Social History Tobacco Use Types Packs/Day [...] Office Visit Plastic Surgery Peña Woodwadr MD [facility] PLASTIC SURGERY [place], [place] 0[address] (Wo rk) 08/19/2022 Office Visit Podiatry Tom Titus DPM [place] [phone] (Wo rk) 09/08/2022 Office Visit Internal Medicine Janay Hay MD [facility] GENERAL INTERNAL MEDICINE [place], [place] 0375 (Wo rk) 10/12/2059 Hospital Encounter Surgery Jim Hanley MD [facility] SPINE CENTER [place], [place] 0375 (Wo rk) Scheduled Procedures Name [...] on filedocumented in this encounter Care Teams Cargo Inspector Relationship Specialty Start Date End Date [place] PA PCP - General Internal Medicine 01/26/[address] [place] [address] [place] [address] documented as of this encounter
--- OUTSIDE RECORDS SUMMARY | 2022-07-12 00:52 | XMS_ITS | Encounter Summary ---
:1965 Author Organization [facility] Address [facility] [place] [address] Care Team Providers Name Role Phone [place] Primary Care Provider Encounter Details Date Type Department Care Team Description 04/21/2018 Telephone Internal Medicine at [facility] Manuel Brown [facility] [place] [address] Social History Tobacco Use Types Packs/Day [...] Woodward MD [facility] PLASTIC SURGERY [place] [phone] (Wo rk) 08/19/2022 Office Visit Podiatry Tom Titus DPM [place] [phone] (Wo rk) 09/08/2022 Office Visit Internal Medicine Janay Hay MD [facility] GENERAL INTERNAL MEDICINE [place] [address] (Wo rk) 10/12/2059 Hospital Encounter Surgery Jim Hanley MD [facility] SPINE CENTER [place] [address] (Wo rk) Scheduled Procedures Name Priority Associated [...] on filedocumented in this encounter Care Teams Radio Installer Relationship Specialty Start Date End Date [place] PA PCP - General Internal Medicine 01/26/[address] [place] [address] [place] [address] documented as of this encounter
--- OUTSIDE RECORDS SUMMARY | 2022-07-12 00:52 | XMS_ITS | Encounter Summary ---
:1965 Author Organization [facility] Address [facility] [place] [address] Care Team Providers Name Role Phone Tom Hay MD Primary Care Provider Reason for Visit Reason Comments Medication Refill Encounter Details Date Type Department Care Team Description 06/15/2018 Refill Internal Medicine at [facility] PA Cervical radicular pain [facility] Internal [facility] [place] [address] [place] [address] [phone] (Wo rk) Social History Tobacco Use Types [...] Woodward MD [facility] PLASTIC SURGERY [place] [phone] ( rk) 08/19/2022 Office Visit Podiatry Tom Titus DPM [place] [phone] ( rk) 09/08/2022 Office Visit Internal Medicine Janay Hay MD [facility] GENERAL INTERNAL MEDICINE [place] [address] (Wo rk) 10/12/2059 Hospital Encounter Surgery Jim Hanley MD [facility] SPINE CENTER [place] [address] (Wo rk) Scheduled Procedures Name Priority Associated [...] radicular pain Brachial neuritis or radiculitis nos Myeloradiculopathy Unspecified nerve root and plexus disord er documented in this encounter Additional Health Concerns Infection Onset Date Last Indicated Resolved Time Rule Out COVID-19 02/13/2021 02/13/2021 02/13/2021 3:1 7 PM EDT Rule Out C. difficile 02/13/2021 02/13/2021 02/13/2021 9:03 PM EDT documented as of this encounter Care Teams System Configuration Specialist Relationship Specialty Start Date End Date Tom Hay MD PCP - General Internal Medicine 09/15/18 [facility] GENERAL [place] [address] documented as of this encounter
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
--- OUTSIDE RECORDS SUMMARY | 2022-07-12 00:52 | XMS_ITS | Encounter Summary ---
:1965 Author Organization [facility] Address [facility] Drive [place] [id number] Care Team Providers Name Role Phone [place] Primary Care Provider Reason for Visit Reason Comments Medication Refill Encounter Details Date Type Department Care Team Description 04/25/2018 Refill Internal Medicine at [facility] PA Asthma, unspecified [facility] asthma severity, [facility] General Internal unspe cified whether Drive Medicine complicated, [place] [phone] [place] [address] unspecified whether [phone] (Wo rk) persistent Social History Tobacco Use [...] MD [facility] PLASTIC SURGERY [place] [phone] ([facility]) 08/19/2022 Office Visit Podiatry Tom Titus DPM [place] [phone] ([facility]) 09/08/2022 Office Visit Internal Medicine Janay Hay MD [facility] GENERAL INTERNAL MEDICINE [place], [place] [address] ([facility]) 10/12/2059 Hospital Encounter Surgery Jim Hanley MD [facility] SPINE CENTER [place], [place] [address] ([facility]) Scheduled Procedures Name Priority Associated Diagnoses [...] persistent documented in this encounter Care Teams City Plant Supervisor Relationship Specialty Start Date End Date [place] PA PCP - General Internal Medicine 01/26/[address] [place] [address] [place] [address] documented as of this encounter
--- OUTSIDE RECORDS SUMMARY | 2022-07-12 00:52 | XMS_ITS | Encounter Summary ---
:1965 Author Organization [facility] [place] [address] Care Team Providers Name Role Phone [place] Primary Care Provider Reason for Visit Reason Comments Medication Refill Encounter Details Date Type Department Care Team Description 06/30/2018 Refill Internal Medicine at [facility] [place] PA [facility] [place] [phone] General Internal Medicine [phone] [place] [address] (Wo rk) Social History Tobacco Use Types [...] MD [facility] PLASTIC SURGERY [place] [phone] ([facility]) 08/19/2022 Office Visit Podiatry Tom Titus DPM [place], [place] [address] ([facility]) 09/08/2022 Office Visit Internal Medicine Janay Hay MD [facility] GENERAL INTERNAL MEDICINE [place], [place] [address] ( rk) 10/12/2059 Hospital Encounter Surgery Jim Hanley MD [facility] SPINE CENTER [place], [place] [address] (Wo josé luis) Scheduled Procedures [...] giddiness documented in this encounter Care Teams Printer Technician Relationship Specialty Start Date End Date [place] PA PCP - General General Internal Medicine 01/26/[address] [place] [address] [place] [address] documented as of this encounter
--- OUTSIDE RECORDS SUMMARY | 2022-07-12 00:52 | XMS_ITS | Encounter Summary ---
:1965 Author Organization [facility] Address [facility] [place] [address] Care Team Providers Name Role Phone [place] Primary Care Provider Encounter Details Date Type Department Care Team Description 05/14/2018 Orders Only Pulmonology at [facility] Maykel Malik, Asthma, unspecified [facility] asthma severity, Drive [facility] [place] [address] [address] lynch, [facility] [place] unspecified whether [place] [phone] persistent Social History Tobacco Use Types Packs/Day [...] MD [facility] PLASTIC SURGERY [place] [phone] ( rk) 08/19/2022 Office Visit Podiatry Tom Titus DPM [place] [phone] ( rk) 09/08/2022 Office Visit Internal Medicine Janay Hay MD [facility] GENERAL INTERNAL MEDICINE [place] [phone] (Wo rk) 10/12/2059 Hospital Encounter Surgery Jim Hanley MD [facility] SPINE CENTER [place] [address] (Flores ordonez) Scheduled Procedures Name Priority Associated [...] persistent documented in this encounter Care Teams Passenger Service Supervisor Relationship Specialty Start Date End Date [place] PA PCP - General Internal Medicine 01/26/[address] [place] [address] [place] [address] documented as of this encounter
--- OUTSIDE RECORDS SUMMARY | 2022-07-12 00:52 | XMS_ITS | Encounter Summary ---
:1965 Author Organization [facility] [place] [address] Care Team Providers Name Role Phone [place] Primary Care Provider Encounter Details Date Type Department Care Team Description 07/21/2018 Refill Dermatology at [facility] Jacob Blair III, MD Psoriasis [address] [facility] [place] [address] [phone] [place], [place] [address] (Wo rk) Social History Tobacco [...] this encounter Miscellaneous Notes Telephone Encounter - Akosua Turner LPN - 07/21/2018 1:32 PM EDT ----- Message from Tsering Sung LPN sent at 07/12/2018 9:27 AM EDT ----- ----- Message ----- From: Jacob Blair III, MD Sent: 07/09/2018 11:11 AM To: Tsering Sung LPN Check on scalp psoriasis Thanks I called Emmanuelle. She states her scalp psoriasis is the worst its ever been. She would like us to order the Taclonex. She has been applying the diprolene lotion and clobetasol which is not helping. documented in this encounter Plan of Treatment Upcoming Encounters Date Type Specialty Care Team Description 08/06/2022 Office Visit Plastic Surgery Peña Woodward MD [facility] PLASTIC SURGERY [place], [place] [address] (Flores ordonez) 08/19/2022 Office Visit Podiatry Tom Titus DPM [place], [place] [address] ([place] ord[place]) 09/08/2022 Office Visit Internal Medicine Janay Hay MD [facility] GENERAL INTERNAL MEDICINE [place], [place] [address] (Wo rk) 10/12/2059 Hospital Encounter Surgery Jim Hanley MD [facility] DR SPINE CENTER [place], [place] [address] (Wo rk) Scheduled Procedures [...] psoriasis documented in this encounter Care Teams Paperboard Boxes Estimator Relationship Specialty Start Date End Date [place] PA PCP - General General Internal Medicine 01/26/18 8 [facility] General [place] [address] documented as of this encounter
--- OUTSIDE RECORDS SUMMARY | 2022-07-12 00:52 | XMS_ITS | Encounter Summary ---
:1965 Author Organization [facility] [place] [address] Care Team Providers Name Role Phone [place] Primary Care Provider Encounter Details Date Type Department Care Team Description 06/28/2018 Telephone Dermatology at [facility] Jacob Langston III, [address] [place] [address] [facility] [phone] [address] [place], [place] [address] (Wo rk) Social History Tobacco [...] this encounter Miscellaneous Notes Telephone Encounter - Magi Perez LPN - 06/28/2018 11:35 AM EDT ----- Message from Jacob Blair III, MD sent at 03/30/2018 8:53 PM EDT ----- Regarding: RE: update That is fine - 1-2 times a week will probably clear her - she has a lot of issues - we can work withher. Thanks - let me know when she gets started. ----- Message ----- From: Magi Perez LPN Sent: 03/25/2018 10:12 AM To: Jacob Blair III, MD Subject: update Hi Dr Blair, I called patient and discussed xtrac treatments and expectations, and recommended 2-3 times a week. She says that she lives 2 hours away and will not be able to come have treatments until April, as shecant afford the travel. When she starts in April she may be able to do 1 or 2 times a week at most. I let her know she was approved and if she found times before April she could just call to schedule and ill fit her in. Thank-youmagi ----- Message ----- From: Jacob Blair III, MD Sent: 03/24/2018 9:10 PM To: CHRISTINE Tuttle - evidently she is approved for Excimer laser so please contact her and have her some in to treat the area of psoriasis on the occiput that has been recalcitrant to topical and intralesional therapy. Let me know when she is coming. Thanks, MAG documented in this encounter Plan of Treatment Upcoming Encounters Date Type Specialty Care Team Description 08/06/2022 Office Visit Plastic Surgery Peña Woodward MD [facility] PLASTIC SURGERY [place], [place] [address] (Wo rk) 08/19/2022 Office Visit Podiatry Tom Titus DPM [place], [place] 0375 (Wo rk) 09/08/2022 Office Visit Internal Medicine Janay Hay MD [facility] GENERAL INTERNAL MEDICINE [place], [place] [address] (Wo rk) 10/12/2059 Hospital Encounter Surgery Jim Hanley MD [facility] SPINE CENTER [place], [place] [address] (Wo rk) Scheduled Procedures Name [...] on filedocumented in this encounter Care Teams Location Manager Relationship Specialty Start Date End Date [place] PA PCP - General Internal Medicine 01/26/18 8 [facility] [place] [address] documented as of this encounter
--- OUTSIDE RECORDS SUMMARY | 2022-07-12 00:52 | XMS_ITS | Encounter Summary ---
:1965 Author Organization [facility] Address [address] [place] [address] Care Team Providers Name Role Phone [place] Primary Care Provider Reason for Visit Reason Comments Skin Check Encounter Details Date Type Department Care Team Description 06/15/2018 [facility] eoplasm of uncertain behavior of skin; Karen III, Skin lesion of back; [address] [facility] Psoriasis of scalp; [place] [address] Perioral dermatitis; [phone] [facility] [address] [place], [place] [address] Social History Tobacco Use Types [...] documented as of this encounter Progress Notes Cindy Medina, [facility] - 06/15/2018 1:00 PM EDT Images from the original note were not included. DERMATOLOGY ESTABLISHED PATIENT CLINIC NOTE Date of service: 06/15/2018 Emmanuelle Bynum : 1965 Provider: Jacob Blair MD PROBLEM: irritated lesion right upper back Needs a refill of Taclonex scalp giana SKIN HISTORY: Psoriasis, scalp ?? SK's Onychodystrophy and scaling on feet and between toes. HPI Emmanuelle Bynum is a 52 y.o. female last seen 04/20/18. Pt is here today for a 6 month full skin check. - Pt notes that she has a spot that she would like checked again located on the back. Pt states that this spot itches, bleeds, and is tender. It is irritated by her bra strap. -She uses her clobetasol for her scalp psoriasis, she did not get her talclonex solution because itwas not called into the pharmacy, her scalp broke out and so she used her clobetasol on the area, but she would really like a refill of the talclonex. ADR: Allergies Allergen Reactions ??? Clonidine (Pf) Other (See Comments) stenens johnsons syndrome ??? Codeine Itching and Nausea Only ??? Methadone Nausea And Vomiting CURRENT MEDICATIONS: Current Outpatient Prescriptions Medication Sig Dispense Refill ??? metFORMIN (GLUCOPHAGE-XR) 500 mg Tablet Sustained Release 24 hr Take 2 tablets by mouth 2 times daily. 360 tablet 3 ??? insulin glargine (LANTUS SOLOSTAR U-100 INSULIN) 100 unit/mL (3 mL) pen Inject 48 Units subcutaneously nightly. 15 mL 11 ??? insulin pen, HumaLOG Luxura, Insulin Pen Inject 3-30 each subcutaneously 3 times daily (before meals). 10 Pen 11 ??? blood sugar diagnostic strips Strip Use as instructed to check BG 4 times daily. (Freestyle Lite) 100 each 11 ??? insulin needles, disposable, 32 gauge x 5/32 Needle Use as directed to inject insulin 4 times daily 100 each 11 ??? hydroCHLOROthiazide (HYDRODIURIL) 50 mg Tablet Take 1 tablet by mouth daily. 90 tablet 3 ??? amitriptyline (ELAVIL) 25 mg Tablet Take 1 tablet by mouth nightly. 30 tablet 0 ??? HUMALOG KWIKPEN 100 unit/mL Insulin Pen INJECT 4 TO 30 UNITS UNDER THE SKIN THREE TIMES DAILY WITH MEALS DIRECTED 27 mL 0 ??? amLODIPine (NORVASC) 10 mg Tablet Take 1 tablet by mouth daily. 90 tablet 3 ??? lancets (FREESTYLE LANCETS) 28 gauge Misc 1 Application by Other route 3 times daily. Indications: Diabetes Mellitus 300 each 3 ??? glipiZIDE (GLUCOTROL) 5 mg Tablet Take 1 tablet by mouth 2 times daily (before meals). 60 tablet5 ??? metFORMIN (GLUCOPHAGE) 1,000 mg Tablet Take 1 tablet by mouth 2 times daily. (Patient not taking: Reported on 06/15/2018) 60 tablet 5 ??? PROAIR HFA 90 mcg/actuation HFA Aerosol Inhaler INHALE 2 PUFFS INTO THE LUNGS EVERY 4 HOURS NEEDED WHEEZING 8.5 g 0 ??? doxycycline monohydrate (MONODOX) 100 mg Capsule One pill two times a day for 1 week then one pill a day for perioral dermatitis;take with food 45 capsule 0 ??? cholecalciferol, Vitamin D3, 50,000 unit Capsule Take 1 capsule by mouth once a week. (Patient not taking: Reported on 04/20/2018) 52 capsule 0 ??? levothyroxine (SYNTHROID) 150 mcg Tablet Take 2 tablets by mouth daily. Indications: added to = 325 mcg daily 90 tablet 3 ??? levothyroxine (SYNTHROID) 25 mcg Tablet Take 1 tablet by mouth daily. 90 tablet 2 ??? valACYclovir (VALTREX) 1 gram Tablet Take 1 tablet by mouth 2 times daily. (Patient not taking: Reported on 06/15/2018) 18 tablet 0 ??? venlafaxine (EFFEXOR) 25 mg Tablet Take 25 mg by mouth daily. ??? IBU 800 mg Tablet TAKE 1 TABLET BY MOUTH EVERY 8 HOURS NEEDED PAIN 270 tablet 3 ??? BREO ELLIPTA 200-25 mcg/dose Disk with Device Inhale 1 puff into the lungs daily. 60 each 3 ??? tiotropium (SPIRIVA) 18 mcg Capsule, w/Inhalation Device Inhale 1 capsule into the lungs daily. 90 capsule 3 ??? montelukast (SINGULAIR) 10 mg Tablet Take 1 tablet by mouth nightly. Indications: Allergic Rhinitis 30 tablet 3 ??? varenicline (CHANTIX) 1 mg Tablet Take 1 tablet by mouth 2 times daily. (Patient not taking: Reported on 06/15/2018) 60 tablet 3 ??? VITAMIN D 1,000 unit Tablet Take 2 tablets by mouth daily. 90 tablet 0 ??? methocarbamol (ROBAXIN) 750 mg Tablet Take 1 tablet by mouth 4 times daily. 120 tablet 0 ??? ondansetron (ZOFRAN) 4 mg Tablet Take 1 tablet by mouth every 8 hours as needed for Nausea. (Patient not taking: Reported on 06/15/2018) 20 tablet 0 ??? meclizine (ANTIVERT) 25 mg Tablet Take 1 tablet by mouth 3 times daily as needed. 90 tablet 0 ??? naratriptan (AMERGE) 2.5 mg Tablet Take one (1) tablet at onset of headache; if returns or does not resolve, may repeat after 4 hours; do not exceed five (5) mg in 24 hours. (Patient not taking: Reported on 06/15/2018) 10 tablet 0 ??? Clobetasol-Emollient 0.05 % Foam Apply twice daily to worse scalp psoriasis on weekends-only as needed dispense 3 bottles please 200 g 0 ??? betamethasone-calcipotriene (TACLONEX SCALP) 0.005-0.064 % Suspension Apply 3 times a week to scalp for psoriasis on weekdays. 120 g 0 ??? cycloSPORINE (RESTASIS) 0.05 % Dropperette Place 1 drop into both eyes every 12 hours. 180 vial 3 ??? estradiol (ESTRACE) 1 mg Tablet Take 1 mg by mouth 2 times daily. 2 tablets in the morning, 1 tablet nightly 6 ??? nystatin (MYCOSTATIN) 100,000 unit/mL Suspension Take by mouth 4 times daily. ??? carisoprodol (SOMA) 350 mg Tablet TK 1 T PO TID PRN 1 ??? gabapentin (NEURONTIN) 600 mg Tablet Take 900 mg in the morning and 900 mg at noontime. Take 1200 mg at bedtime. 150 tablet 3 ??? fluticasone (VERAMYST) 27.5 mcg/actuation [place], Suspension 2 sprays by Nasal route daily. [...] Take 30 mg by mouth daily. ??? esomeprazole (NEXIUM) 40 mg capsule Take 40 mg by mouth 2 times daily. No current facility-administered medications for this visit. PROBLEM LIST: Patient Active Problem List Diagnosis Code ??? 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 Chronic migraine without aura G43.709 ??? Whiplash S13.4XXA ??? Leukocytosis D72.829 ??? Asthma J45.909 ??? Hypothyroid E03.9 ??? Depression F32.9 ??? GERD (gastroesophageal reflux disease) K21.9 ??? Chronic UTI N39.0 ??? Sleep apnea G47.30 ??? Bilateral shoulder pain M25.511, M25.512 ??? Carpal tunnel syndrome on both sides G56.03 ??? Ankle weakness M62.81 ??? Cervical radicular pain M54.12 ??? Atypical nevus of back D22.5 ??? Seborrheic keratosis, inflamed L82.0 ??? Irritated nevus of face D22.30 ??? Dermatofibroma D23.9 ??? Hemangioma - left shoulder M9120/0 ??? Spider veins - lower legs I78.1 ??? DDD (degenerative disc disease), cervical M50.30 ??? Cervical disc displacement M50.20 ??? Myopia of both eyes with astigmatism and presbyopia H52.13, H52.203, H52.4 ??? Bilateral dry eyes H04.123 ??? Controlled type 2 diabetes mellitus without complication E11.9 ??? Combined forms of age-related cataract of both eyes H25.813 ??? COPD (chronic obstructive pulmonary disease) J44.9 ??? Mild cognitive impairment, so stated G31.84 ??? Acne vulgaris L70.0 ??? Schizophrenia F20.9 ??? Bipolar II disorder F31.81 ??? Vitamin D deficiency E55.9 ??? Essential hypertension I10 ??? Hyperlipidemia E78.5 ??? Seasonal allergies J30.2 ??? Vertigo R42 ROS General: feeling well. Oriented X 3. Skin: denies other skin complaints EXAM General: NAD, pleasant, cooperative Skin: An exam of the skin from the neck up was performed. This includes examination of the skin of the face, ears, scalp, and neck. The back was also examined. Significant skin findings: A. 4-5 mm pink papule on the right upper back Images Photo(s) taken by Brooke Blair MD. with patient's verbal permission for use for clinical and education purposes. Figure A B. Occipital scalp posterior (in the crease) - improved patch of psoriasis - mild erythema and scaling noted. C. No active perioral dermatitis around the mouth- ASSESSMENT/PLAN: A. Suspect symptomatic Dermatofibroma R/o Atypia - right upper back I discussed this condition with the patient and explored therapeutic options. I recommended we do a shave biopsy, joint decision made to proceed with skin biopsy for further diagnostic information. Procedure: Skin biopsy by shave technique Time of Procedure: 1:15PM Location: right upper back Discussed indications for procedure and expectations including risks and benefits. Verbal consent obtained. Skin prep with alcohol. Local anesthesia with 1% xylocaine, 1/100,000 epinephrine. A sample of the lesion was removed by shave technique to the level of the dermis and submitted to Pathology. Hemostasis obtained (AlCl and/or electrocautery). There were no complications; the pt. tolerated the procedure well. The wound was dressed. Post-procedure expectations, wound care and activity restrictions were reviewed. Follow-up based on pathology results B. Psoriasis in scalp - scalp improving ??- continue Taclonex solution - apply nightly for 7-10 days then 2-3 nights a week for maintenance (refill sent) - reserve Clobetasol Foam for recalcitrant areas - Apply daily to worse scalp psoriasis on weekends-only as needed - Consider restarting Excimer Laser - if scal psoriasis persists. C. Perioral Dermatitis - cleared I discussed this condition with the patient and explored therapeutic options. Recommendations: - Hold Rx: Doxycyline:??- take once daily for flares Re-institute therapy when flaring take one pills a day until resolved- then wean off. take with food; avoid sun (refill sent) Take as little oral medication as necessary! RTC - Pending pathology Call if problems arise I am documenting this encounter acting as the scribe for and in the presence of Dr. Blair.: HOLDEN Astorga I, Kris ChowDaniel, have performed the documentation for this encounter in the presence of and acting as a scribe for JACBO BLAIR III, MD. I performed the above scribed service and agree with the accuracy of the documentation in this encounter. Jacob Blair MD Section of Dermatology [facility] documented in this encounter Plan of Treatment Upcoming Encounters Date Type Specialty Care Team Description 08/06/2022 Office Visit Plastic Surgery Peña Woodward MD [facility] PLASTIC SURGERY [place], [place] [address] (Wo rk) 08/19/2022 Office Visit Podiatry Tom Titus DPM [place], [place] [address] (Wo rk) 09/08/2022 Office Visit Internal Medicine Janay Hay MD [facility] GENERAL INTERNAL MEDICINE [place], [place] [address] ( rk) 10/12/2059 Hospital Encounter Surgery Jim Hanley MD [facility] SPINE CENTER [place], [place] [address] (Wo rk) Scheduled Procedures Name [...] Associated Diagnosis Comme nts SPECIMEN TO Routine 06/15/2018 2:12 PM Neoplasm of Results f or this PATHOLOGY EDT uncertain behavior procedure are in of skin the results section. SURGICAL PATHOLOGY Routine 06/15/2018 1:15 PM Res ults for this REPORT EDT procedure are i n the results section. documented in this encounter Results Specimen to Pathology (06/15/2018 2:12 PM EDT) Specimen Anatomical Collection Method Collection Time Receive d Time (Source) Location / / Volume Laterality AP Specimen 06/15/2018 2:12 PM 8 6:15 EDT PM EDT Narrative [facility] - 06/15/2018 6:15 PM EDT Specimen requisition ordered. ??Separate Pathology report to follow Resulting Agency Comment Spec In Lab Jacob Blair III, MD PATHOLOGY/CYTOLOGY ORDERABLE S Performing Organization Address City/State/[place] [address] Surgical Pathology Report (06/15/2018 1:15 PM EDT) Component Value Ref Test Analysis Performed At [facility] gist Range Method Time Signature Surgical [id number] ? Location: [facility] Report The signing pathologist has (i) examined the relevant preparation(s) for the [facility] specimen(s) and (ii) rendered or confirmed the diagnosis(es) . HOSPITAL LABORATORY . ?Surgic al Pathology DIAGNOSIS Skin, right upper back, shave ?? biopsy: Dermatofibroma, irritated, transected at the base. Electronically signed by: ??Neeraj Chavez MD Verified: ??06/18/2018 ?Dermatopathologist Performed at: ??[facility], [place], [place] CLINICAL INFORMATION Specimen Submitted: A - Skin, right upper back, shave biopsy (1) Clinical History and Diagnosis: 4-5 mm pink papule on the ri t upper back. DDX: Suspect dermatofibroma rule out atypia. SPECIMEN PROCESSING A - Labeled/Fixative: Right upper back, formalin. Quantity/Size: Two, 0.3 cm and 0.5 x 0.4 x 0.1 cm. Tissue Description: She is a granular lyons-white skin; the larger slightly domed. Sections/Processing: The sma ller fragment is submitted in cassette A1; the larger is inked, bisected and submitted in A2. (T2) ??pps Specimen (Source) Anatomical Collection Method Collection Time Re ceived Time Location / / Volume Laterality 06/15/2018 1:15 PM EDT Jacob Blair III, MD PATHOLOGY/CYTOLOGY ORDERABLE S Performing Organization Address City/State/ZIP Code Phon e Number [place] [phone] documented in this encounter Visit Diagnoses Diagnosis Neoplasm of uncertain behavior of skin Skin lesion of back Unspecified disorder of skin and subcuta neous tissue Psoriasis of scalp Other psoriasis Perioral dermatitis Rosacea Psoriasis Other psoriasis documented in this encounter Care Teams Global Security Architect Relationship Specialty Start Date End Date Chandler Bay PA PCP - General General Internal Medicine 01/26/[address] [place] [address] [place] [address] documented as of this encounter
--- OUTSIDE RECORDS SUMMARY | 2022-07-12 00:52 | XMS_ITS | Encounter Summary ---
:1965 Author Organization [facility] [place] [address] Care Team Providers Name Role Phone [place] Primary Care Provider Reason for Visit Reason Comments Medication Management Encounter Details Date Type Department Care Team Description 06/15/2018 Clinical Support Internal Medicine Ninfa Cardoza edication at [facility], [facility] [place] [id number] Social History Tobacco Use Types Packs/Day Years [...] documented as of this encounter Progress Notes Ninfa Alba RP - 06/15/2018 9:00 AM EDT Clinical Pharmacist Consultation; Ninfa Alba RPH Visit Type: [id number] Comprehensive Medication Management (CMM) Appointment Subjective: Patient ID: Emmanuelle Bynum is a 52 y.o. female who has a past medical history of Allergy; Arthritis; Asthma; Cardiac disease; Cervicalgia; Combined forms of age-related cataract of both eyes (08/18/2016); COPD (chronic obstructive pulmonary disease) (01/27/2018); Depression; Diabetes mellitus; Diverticulosis; Dysphagia; Essential hypertension (01/27/2018); Gallstones; GERD (gastroesophageal reflux disease); Headache(784.0); Hyperlipidemia (01/27/2018); Leukocytosis (06/05/2011); Mixed incontinence; Neuromuscular disorder; SEB (obstructive sleep apnea); Rheumatic fever; Skin disease; Thyroid disease;and Trauma.. Pt was referred for CMM appointment by YUNIOR Anton for medication management and education. Medication regimen was reviewed and reconciled, screened for drug interactions and assessed for safety considerations. Goals as of 06/15/2018 at 9:18 AM None Patient brought medications to appointment? no- does not bring to appts because then will lose med bottles Allergies and Drug intolerance: Allergies Allergen Reactions ??? Clonidine (Pf) Other (See Comments) stenens johnsons syndrome ??? Codeine Itching and Nausea Only ??? Methadone Nausea And Vomiting Medication Reconciliation Discrepancies (compared to [facility] med list) - Went 3 weeks without insulin and pen needles due to gap in refills - Not taking vit D as too expensive and would like prescription sent through insurance - Requires 6 more weeks of doxycycline therapy for face - Was successfully using Chantix bu since running out has resumed 2 ppd - Requests a letter for all supplements/OTCs be written for insurance reimbursement Per pt's notebook this is information provided for letter: Patient Name: Emmanuelle Bynum Patient : 1965 PCP: YUNIOR Anton Prepared by: Ninfa Alba [facility] Date Prepared: 06/15/2018 OTC name/strength Dose How (route) When (frequency) Why (indication) Milk of magnesia oral As needed As needed indigestion MG 217 medicated tar 10% ointment topical Fish oil 1000 mg oral BID Soy protein shake oral Neutrogena T/Gel 0.5% shampoo 0.5% topical Vitamin D 2,000 IU oral daily supplement Genteal eye gel Eye drop Dry eyes Refresh eye drops Eye drop Dry eyes Systane balance Ocuvite tablet oral Flaxseed oil 1,000 mg oral BID Calcium Carbonate 600 mg oral supplement vitamin C 500 mg oral Immune system booster vitamins vitafit fiber + calcium Bio Oil Miralax As needed As needed constipation Systane gel drops Eye drop Systane Ultra Concerns for provider today: - Pt dissatisfied with [facility]'s new psychiatrist ; sees monthly but will move to every other month due to cost Reason for dissatisfaction is because they will be taking her down from 5 to 2 tabs of alprazolam sopt is requesting another psychologist - Would like to be restarted on ritalin because falling asleep midday. Reports initially started on ritalin for ADHD as a child, but then was having narcolepsy episodes so she was changed to 30 mg. Shewould liek to restart but at a lower dose. Says provider in [place] diagnosed her with narcolepsy - Has not heard from pain clinic for neck/back pain so requests refills for Muscle relaxants and ibuprofen - Would like a letter for OTC/supplement use to be sent to the insurance for approval Antidiabetic Regimen - Metformin 1,000 mg BID - Humalog Luxura according to sliding scale (2-14 units) 150-200 2 units 201-250 4 units ... - Injects Lantus 48 units at bedtime - Injects insulin into outside of legs and keeps in fridge - Has Freestyle Lite meter but still needs to refill test strips SMBG No SMBG since running out of test strips Was checking once daily before every meal However has one big meal in PM most days No log because meter stores internally Ranges 200-250 Lifestyle One big meal in PM Drinks juice all day Are you experiencing any side effects from your medications? no Reconciled Medication List: Medications 04/20/18 4219 Medication Sig Taking? HUMALOG KWIKPEN 100 unit/mL Insulin Pen INJECT 4 TO 30 UNITS UNDER THE SKIN THREE TIMES DAILY WITH MEALS DIRECTED amLODIPine (NORVASC) 10 mg Tablet Take 1 tablet by mouth daily. blood sugar diagnostic strips Strip Use as instructed lancets (FREESTYLE LANCETS) 28 gauge Misc 1 Application by Other route 3 times daily. Indications: Diabetes Mellitus insulin pen, HumaLOG Luxura, Insulin Pen Inject 3-30 each subcutaneously 3 times daily (before meals). insulin glargine (LANTUS SOLOSTAR U-100 INSULIN) 100 unit/mL (3 mL) pen Inject 40 Units subcutaneously nightly. glipiZIDE (GLUCOTROL) 5 mg Tablet Take 1 tablet by mouth 2 times daily (before meals). metFORMIN (GLUCOPHAGE) 1,000 mg Tablet Take 1 tablet by mouth 2 times daily. PROAIR HFA 90 mcg/actuation HFA Aerosol Inhaler INHALE 2 PUFFS INTO THE LUNGS EVERY 4 HOURS NEEDED WHEEZING doxycycline monohydrate (MONODOX) 100 mg Capsule One pill two times a day for 1 week then one pill aday for perioral dermatitis;take with food cholecalciferol, Vitamin D3, 50,000 unit Capsule Take 1 capsule by mouth once a week. Patient not taking: Reported on 04/20/2018 levothyroxine (SYNTHROID) 150 mcg Tablet Take 2 tablets by mouth daily. Indications: added to = 325 mcg daily levothyroxine (SYNTHROID) 25 mcg Tablet Take 1 tablet by mouth daily. valACYclovir (VALTREX) 1 gram Tablet Take 1 tablet by mouth 2 times daily. venlafaxine (EFFEXOR) 25 mg Tablet Take 25 mg by mouth daily. IBU 800 mg Tablet TAKE 1 TABLET BY MOUTH EVERY 8 HOURS NEEDED PAIN BREO ELLIPTA 200-25 mcg/dose Disk with Device Inhale 1 puff into the lungs daily. tiotropium (SPIRIVA) 18 mcg Capsule, w/Inhalation Device Inhale 1 capsule into the lungs daily. montelukast (SINGULAIR) 10 mg Tablet Take 1 tablet by mouth nightly. Indications: Allergic Rhinitis varenicline (CHANTIX) 1 mg Tablet Take 1 tablet by mouth 2 times daily. VITAMIN D 1,000 unit Tablet Take 2 tablets by mouth daily. methocarbamol (ROBAXIN) 750 mg Tablet Take 1 tablet by mouth 4 times daily. ondansetron (ZOFRAN) 4 mg Tablet Take 1 tablet by mouth every 8 hours as needed for Nausea. meclizine (ANTIVERT) 25 mg Tablet Take 1 tablet by mouth 3 times daily as needed. naratriptan (AMERGE) 2.5 mg Tablet Take one (1) tablet at onset of headache; if returns or does not resolve, may repeat after 4 hours; do not exceed five (5) mg in 24 hours. Clobetasol-Emollient 0.05 % Foam Apply twice daily to worse scalp psoriasis on weekends-only as needed dispense 3 bottles please betamethasone-calcipotriene (TACLONEX SCALP) 0.005-0.064 % Suspension Apply 3 times a week to scalp for psoriasis on weekdays. cycloSPORINE (RESTASIS) 0.05 % Dropperette Place 1 drop into both eyes every 12 hours. estradiol (ESTRACE) 1 mg Tablet Take 1 mg by mouth 2 times daily. 2 tablets in the morning, 1 tabletnightly hydroCHLOROthiazide (HYDRODIURIL) 50 mg Tablet Take 50 mg by mouth daily. nystatin (MYCOSTATIN) 100,000 unit/mL Suspension Take by mouth 4 times daily. carisoprodol (SOMA) 350 mg Tablet TK 1 T PO TID PRN gabapentin (NEURONTIN) 600 mg Tablet Take 900 mg in the morning and 900 mg at noontime. Take 1200 mgat bedtime. fluticasone (VERAMYST) 27.5 mcg/actuation [place], Suspension 2 sprays by Nasal route daily. Indications: Allergic Rhinitis promethazine (PHENERGAN) 25 mg tablet Take 25 mg by mouth every 6 hours as needed. ALPRAZolam (XANAX) 1 mg tablet Take 1 mg by mouth 3 times daily as needed. FLUoxetine (PROZAC) 40 mg capsule Take 80 mg by mouth daily. aripiprazole (ABILIFY) 30 mg tablet Take 30 mg by mouth daily. esomeprazole (NEXIUM) 40 mg capsule Take 40 mg by mouth 2 times daily. Drug Interactions: Included for reference, none that require changes to treatment at this time. (CI and Major interactions only) Interacting Meds Level Risk Recommendation Abilify + fluoxetine D- Consider therapy modification FLUoxetine may enhance the adverse/toxic effect of ARIPiprazole. Specifically, the risk of neuroleptic malignant syndrome may be increased. ARIPiprazole may enhance the serotonergic effect of FLUoxetine. This could result in serotonin syndrome. Foraripiprazole formulations other than the extended-release injectable: decrease the aripiprazole doseto 50% of the usual dose when initiating concomitant therapy with any strong CYP2D6 inhibitor (e.g.,paroxetine, fluoxetine, quinidine), and further to 25% of the usual dose in patients who are also receiving strong CY inhibitors (e.g., ketoconazole, itraconazole). Dose reductions up to 75% could also be considered when combining a strong CYP2D6 inhibitor with a less potent CY inhibitor. Aripiprazole dose adjustment is not recommended when used as adjunctive therapy in patients with major depressive disorder and receiving a CYP2D6 inhibitor Fluoxetine + ibuprofen D- Consider therapy modification Increased bleed risk To minimize the risk ofbleeding associated with this combination, consider using alternative analgesics, when appropriate, and/or addition of an gastroprotective agent, such as a proton pump inhibitor for the time that combined selective serotonin reuptake inhibitor (SSRIs) and nonsteroidal anti-inflammatory drugs (NSAIDs) is necessary. While there are no published guidelines regarding the management of this interaction, these recommendations echo those found in a recent review1 and a large cohort study.2 It is important to note, however, that another recent review stopped short of recommending an alteration of therapy.3 Minimally, close monitoring for increased risk of bleeding and/or decreased SSRI clinical effectiveness during concomitant SSRI-NSAID use is recommended. Most Recent Vitals: Wt Readings from Last 3 Encounters: 04/20/18 99.8 kg (220 lb) 03/24/18 100.2 kg (220 lb 12.8 oz) 12/15/17 102.1 kg (225 lb) Temp Readings from Last 3 Encounters: 04/20/18 36.9 ??C (98.4 ??F) (Oral) 12/24/17 36.9 ??C (98.4 ??F) (Oral) 07/27/15 37.5 ??C (99.5 ??F) (Temporal) BP Readings from Last 3 Encounters: 04/20/18 153/79 12/24/17 124/80 12/15/17 139/87 Pulse Readings from Last 3 Encounters: 04/20/18 (!) 108 12/24/17 81 12/15/17 100 Pertinent Lab values: Lab Results Component Value Date NA 144 03/24/2018 K 3.9 03/24/2018 CL 104 03/24/2018 CO2 24 03/24/2018 BUN 9 03/24/2018 CREATININE 0.68 (L) 03/24/2018 GLUCOSE 138 03/24/2018 CALCIUM 9.1 03/24/2018 Lab Results Component Value Date ALT 12 03/24/2018 AST 6 03/24/2018 ALKPHOS 76 03/24/2018 BILITOT 0.3 03/24/2018 BILIDIR <0.1 11/13/2015 ALBUMIN 4.2 03/24/2018 PROT 7.3 03/24/2018 Lipid Panel Lab Results Component Value Date CHLPL 218 03/24/2018 HDL 41 03/24/2018 CHOLHDL 5.3 03/24/2018 TRIG 270 03/24/2018 LDLCHOL 123 03/24/2018 Lab Results Component Value Date WBC 11.9 (H) 03/24/2018 HGB 14.8 03/24/2018 HCT 43.8 03/24/2018 MCV 89.9 03/24/2018 PLATELET 308 03/24/2018 Lab Results Component Value Date HA1C 8.1 (H) 03/24/2018 Immunization History Administered Date(s) Administered ??? Influenza PF, Split 06/22/2017 Assessment and Recommendations: 1. Adherence/Med management Assessment: - Appears pt adherence variable for several reason, most recent reason during appt today is due to financial limitation sin particular pt requesting letter for all vit/supplements for reimbursement through insurance. Unlikely insurance will cover all meds requested However did type up the following for provider if interested in completing letter: Patient Name: Emmanuelle Bynum Patient : 1965 PCP: YUNIOR Anton Prepared by: Ninfa Alba RPH Date Prepared: 07/05/2018 OTC name/strength Dose How (route) When (frequency) Why (indication) Milk of magnesia oral As needed As needed indigestion MG 217 medicated tar 10% ointment topical Fish oil 1000 mg oral BID Soy protein shake oral Neutrogena T/Gel 0.5% shampoo 0.5% topical Vitamin D 2,000 IU oral daily supplement Genteal eye gel Eye drop Dry eyes Refresh eye drops Eye drop Dry eyes Systane balance Ocuvite tablet oral Flaxseed oil 1,000 mg oral BID Calcium Carbonate 600 mg oral supplement vitamin C 500 mg oral Immune system booster vitamins vitafit fiber + calcium Bio Oil Miralax As needed As needed constipation Systane gel drops Eye drop Systane Ultra - Pt well aware of med names, strengths, directions, and most indications, but appears uninterested in reducing number of meds/supplements as evident by pt impression of psychologists plan to taper some high risk psychoactive meds and as evident by pt requests for additional meds and coverage for multiple OTCs pt is using - Significant Concern for pt who appears to have many barriers to med management is polypharmacy. Would benefit from simplifying med list to only the most critical meds for 52 y.o. female with multiplecomorbidities. In particular many OTC/Supplements pt presents with have unknown indications therefore would hesitate to finish preparing letter until medical necessity for each med could be validated - Appears nonadherent to insulin due to need for refills - Barriers to med adherence include high pill burden which could contribute to pt feeling overwhelmed with med management Recommendation: - Discussed the importance of med adherence and the risks of non-adherence in particular reviewed importance of developing a relationship with psychiatrist - Prepared list of OTC/supplements per pt request but Recommend clarifying indications for use - Pended refills for hydrochlorothiazide, metformin, insulin glargine, test strips, pen needles, andHumalog Luxura pen - Of note, would still recommend decrease hydrochlorothiazide dose to 25 mg daily as doses >25 mg have not sown improved BP control and do increase the risk of OLIVIA - Discussed with provider pt concerns and requests prior to next appt - Continue to recommend referral to CDE to create updated sliding scale for insulin dosing - Would like to schedule follow up to review smoking cessation and DM in greater detail as majority of appt spent reviewing med management per pt request; may be beneficial for pt to see CDE specifically for DM Clinical Practice Standards: Statin:no; self DC'd pravastatin MANJU/ARB: no; self DC'd losartan ASA: no Last A1C: Lab Results Component Value Date HA1C 8.1 (H) 03/24/2018 Date of last eye exam: unknown Date of last foot exam: unknown Immunization status: missing doses of pneumococcal and tetanus. Educational information or adherence tools provided? no F/u needed? prn Pt understands no changes to current drug regimen were made at the appointment and that [facility] is providing recommendations for provider review and follow up. Ninfa Alba RPH 06/15/18 9:18 AM documented in this encounter Plan of Treatment Upcoming Encounters Date Type Specialty Care Team Description 08/06/2022 Office Visit Plastic Surgery Peña Woodward MD [facility] PLASTIC SURGERY [place], [place] [address] (Wo rk) 08/19/2022 Office Visit Podiatry Tom Titus DPM [place], [place] [address] (Wo rk) 09/08/2022 Office Visit Internal Medicine Janay Hay MD [facility] GENERAL INTERNAL MEDICINE [place], [place] [address] (Wo rk) 10/12/2059 Hospital Encounter Surgery Jim Hanley MD [facility] SPINE CENTER [place], [place] [address] (Wo rk) Scheduled Procedures Name [...] as of this encounter Visit Diagnoses Diagnosis Medication management Encounter for long-term (current) use of other medications documented in this encounter Care Teams Hair Assistant Relationship Specialty Start Date End Date Chandler Bay PA PCP - General Internal Medicine 01/26/18 8 [facility] [place] [address] documented as of this encounter
--- OUTSIDE RECORDS SUMMARY | 2022-07-12 00:52 | XMS_ITS | Encounter Summary ---
:1965 Author Organization [facility] [address] Care Team Providers Name Role Phone [place] Primary Care Provider Reason for Visit Reason Onset Date Comments Medication Refill 06/15/2018 Encounter Details Date Type Department Care Team Description 06/15/2018 Refill Internal Medicine at Ninfa Cardoza, Controlled type 2 diabetes mellitus without complication, unspecified whether assisted insulin use; [facility] [place] [phone] Social History Tobacco Use Types Packs/Day [...] [facility] [place], [place] [address] (Wo rk) 08/19/2022 Office Visit Podiatry Tom Titus DPM [place], [place] [address] (Wo rk) 09/08/2022 Office Visit Internal Medicine Janay Hay MD [facility] GENERAL INTERNAL MEDICINE [place], [place] [address] (Wo rk) 10/12/2059 Hospital Encounter Surgery Jim Hanley MD [facility] SPINE CENTER [place], [place] [address] (Wo rk) Scheduled Procedures Name [...] diabetes mellitus with out complication, unspecified whether assisted insulin use Essential hypertension Unspecified essential hypertension documented in this encounter Care Teams Ship'S Engineer Relationship Specialty Start Date End Date Chandler Bay PA PCP - General General Internal Medicine 01/26/18 8 [facility] [place] [address] documented as of this encounter
--- OUTSIDE RECORDS SUMMARY | 2022-07-12 00:53 | XMS_ITS | Encounter Summary ---
:1965 Author Organization [facility] Address [address] [facility] [address] [place] [address] Care Team Providers Name Role Phone Unavailable Primary Care Provider Unavailable Reason for Visit Reason Comments Diabetic Eye Exam Encounter Details Date Type Department Care Team Description 10/20/2017 Office Visit Ophthalmology at [facility] C Payal Erwin Bilateral dry eyes; [facility] J, OD Combined forms of age-related cataract o f both eyes; Drive [facility] of both eyes with ast igmatism and presbyopia; [place] [address] CENTER Controlled type 2 diabetes mellitus with out complication, unspecified long filler cigar roller machine insulin use status [phone] OPHTHALMOLOGY DEPT. [place], [place] [address] Social History Tobacco Use Types [...] documented as of this encounter Progress Notes Payal Erwin, OD - 10/20/2017 2:20 PM EST Emmanuelle Bynum is a 52 y.o. female who had concerns including Diabetic Eye Exam. No diabetic retinopathy. Rx updated. Assessment: Encounter Diagnoses Name Primary? Bilateral dry eyes ??? Combined forms of age-related cataract of both eyes ??? Myopia of both eyes with astigmatism and presbyopia ??? Controlled type 2 diabetes mellitus without complication, unspecified chcf insulin use status Plan: 1)Refractive Error - MRx given to patient. 2)DM - pt ed re: importance of good bs control and yearly eye exam 3)go back on Restasis bid, AT gloria prn, fish oil, BS scrubs and compresses daily 4)Small cataract - pt ed: Monitor yearly Follow up: CEE 1 year. Eyeglass Final Rx Eyeglass Final Rx Sphere Cylinder [place] Right -1.00 +0.25 150 Left -1.25 +0.50 060 Type: distance Expiration Date: 10/21/2019 Pupillary Distance: 58 Eyeglass Final Rx #2 Sphere Cylinder [place] Right +1.00 +0.25 150 Left +0.75 +0.50 060 Type: reading Expiration Date: 10/21/2019 Pupillary Distance: 58 documented in this encounter Plan of Treatment Upcoming Encounters Date Type Specialty Care Team Description 08/06/2022 Office Visit Plastic Surgery Peña Woodward MD [facility] PLASTIC SURGERY [place], [place] [address] (Wo rk) 08/19/2022 Office Visit Podiatry Tom Titus DPM [place], [place] [address] (Wo rk) 09/08/2022 Office Visit Internal Medicine Janay Hay MD [facility] GENERAL INTERNAL MEDICINE [place], [place] [address] (Wo rk) 10/12/2059 Hospital Encounter Surgery Jim Hanley MD [facility] SPINE CENTER [place], [place] [address] (Wo rk) Scheduled Procedures Name [...] Bilateral dry eyes Tear film insufficiency, unspecified Combined forms of age-related cataract o f both eyes Other and combined forms of senile catar act Myopia of both eyes with astigmatism and presbyopia Controlled type 2 diabetes mellitus with out complication, unspecified long filler cigar roller machine insulin use status documented in this encounter
--- OUTSIDE RECORDS SUMMARY | 2022-07-12 00:53 | XMS_ITS | Encounter Summary ---
:1965 Author Organization [facility] Address [facility] [address] [place] [address] Care Team Providers Name Role Phone [place] Primary Care Provider Reason for Visit Reason Comments Medication Refill Encounter Details Date Type Department Care Team Description 03/24/2018 Refill Internal Medicine at [place] PA Cervical radicular pain [facility] Internal [facility] [place] [address] [place] [address] [phone] (Wo rk) Social History Tobacco Use Types [...] MD [facility] PLASTIC SURGERY [place] [id number] ([facility]) 08/19/2022 Office Visit Podiatry Tom Titus DPM [place] [phone] ( rk) 09/08/2022 Office Visit Internal Medicine Janay Hay MD [facility] GENERAL INTERNAL MEDICINE [place] [phone] ( rk) 10/12/2059 Hospital Encounter Surgery Jim Hanley MD [facility] SPINE CENTER [place], [place] [address] (Wo rk) Scheduled Procedures Name [...] nos documented in this encounter Care Teams Button Sewer Hand Relationship Specialty Start Date End Date [place] PA PCP - General Internal Medicine 01/26/[address] [place] [address] [place] [address] documented as of this encounter
--- OUTSIDE RECORDS SUMMARY | 2022-07-12 00:53 | XMS_ITS | Encounter Summary ---
:[address] [place] [address] Care Team Providers Name Role Phone None Primary Care Provider Unavailable Reason for Visit Reason Comments Cough Asthma Encounter Details Date Type Department Care Team Description 12/24/2017 Emergency Emergency Department Tatiana Hawkins, COPD with exacerbation; Mehreen Norton MD Leukocytosis, unspecified type; [facility] Cough; [facility] Hyperthermia-induced defect; [facility] EMERGENCY MEDICINE Chest [place], [place] [address] [place] [address] [phone] (Wo rk) Social History Tobacco Use Types [...] Sign Reading Time Taken Comments Blood Pressure 124/80 12/24/2017 8:10 AM EDT Pulse 81 12/24/2017 8:10 AM EDT Temperature 36.9 ??C (98.4 ??F) 12/24/2017 6:02 AM EDT Respiratory Rate 18 12/24/2017 8:10 AM EDT Oxygen Saturation 96% 12/24/2017 8:10 AM EDT Inhaled Oxygen Concentration - - Weight - - Height - - Body Mass Index - - documented in this encounter Discharge Instructions Discharge InstructionsJulio C Barr MD - 12/24/2017 8:00 AM EDT Images from the original note were not included. Chronic Obstructive Pulmonary Disease (COPD) Flare-Ups: Care Instructions Your Care Instructions Chronic obstructive pulmonary disease (COPD) is a lung disease that makes it hard to breathe. It is caused by damage to the lungs over many years, usually from smoking. COPD is often a mix of two diseases: ?? Chronic bronchitis: The airways that carry air to the lungs (bronchial tubes) get inflamed and make a lot of mucus. This can narrow or block the airways. ?? Emphysema: In a healthy person, the tiny air sacs in the lungs are like balloons. As you breathe in and out, they get bigger and smaller to move air through your lungs. But with emphysema, these airsacs are damaged and lose their stretch. Less air gets in and out of the lungs. Many people with COPD have attacks called flare-ups or exacerbations. This is when your usual symptoms quickly get worse and stay worse. The doctor has checked you carefully. But problems can develop later. If you notice any problems or new symptoms, get medical treatment right away. Follow-up care is a acosta part of your treatment and safety. Be sure to make and go to all appointments, and call your doctor if you are having problems. It's also a good idea to know your test results and keep a list of the medicines you take. How can you care for yourself at home? ?? Be safe with medicines. Take your medicines exactly as prescribed. Call your doctor if you think you are having a problem with your medicine. You may be taking medicines such as: ?? Bronchodilators. These help open your airways and make breathing easier. ?? Corticosteroids. These reduce airway inflammation. They may be given as pills, in a vein, or in an inhaled form. You may go home with pills in addition to an inhaler that you already use. ?? A spacer may help you get more inhaled medicine to your lungs. Ask your doctor or pharmacist if aspacer is right for you. If it is, ask how to use it properly. ?? If your doctor prescribed antibiotics, take them as directed. Do not stop taking them just because you feel better. You need to take the full course of antibiotics. ?? If your doctor prescribed oxygen, use the flow rate your doctor has recommended. Do not change itwithout talking to your doctor first. ?? Do not smoke. Smoking makes COPD worse. If you need help quitting, talk to your doctor about stop-smoking programs and medicines. These can increase your chances of quitting for good. When should you call for help? Call 911 anytime you think you may need emergency care. For example, call if: ? ?? You have severe trouble breathing. ?Call your doctor now or seek immediate medical care if: ? ?? You have new or worse trouble breathing. ? ?? Your coughing or wheezing gets worse. ? ?? You cough up dark brown or bloody mucus (sputum). ? ?? You have a new or higher fever. ?Watch closely for changes in your health, and be sure to contact your doctor if: ? ?? You notice more mucus or a change in the color of your mucus. ? ?? You need to use your antibiotic or steroid pills. ? ?? You do not get better as expected. Where can you learn more? Visit our health information library at [email or web address]. You can also view health information on [employer], your personal patient account. Log in or sign up today. Enter D989 in the search box to learn more about Chronic Obstructive Pulmonary Disease (COPD) Flare-Ups: Care Instructions. Current as of: February 20, 2017 Content Version: 11.4 ?? [id number] [employer]. Care instructions adapted under license by [facility]. If you have questions about a medical condition or this instruction, always ask your healthcare professional. [employer] disclaims any warranty or liability for your use of this information. documented in this encounter Medications at Time of Discharge Medication Sig Dispensed Refills Start Date End Date fluticasone (VERAMYST) 27.5 2 sprays by Nasal 0 mcg/actuation [place], route daily. SuspensionIndications: Indications: allergic rhinitis Allergic Rhinitis predniSONE (DELTASONE) 20 Take 3 tablets by 12 tablet 0 12/29/2017 mg Tablet mouth daily for 4 days. doxycycline (VIBRAMYCIN) Take 1 capsule by 10 capsule 0 12/1012/29/2017 100 mg Capsule mouth 2 times daily for 5 days. betamethasone-calcipotriene Apply 3 times a 120 g 0 03/201806/15/2018 (TACLONEX SCALP) week to scalp for 0.005-0.064 % psoriasis on SuspensionIndications: . Psoriasis Clobetasol-Emollient 0.05 % Apply twice daily 200 g 0 0 12/15/2017 02/17/2018 FoamIndications: Psoriasis to worse scalp psoriasis on weekends-only as needed dispense 3 bottles please glipiZIDE (GLUCOTROL) 5 mg Take 5 mg by 0 05/04/2018 Tablet mouth 2 times daily (before meals). varenicline (CHANTIX) 1 mg Take 1 mg by 0 03/24/2018 Tablet mouth 2 times daily. cycloSPORINE (RESTASIS) Place 1 drop into 180 vial 3 10/2010/26/2020 0.05 % both eyes every DropperetteIndications: 12 hours. Bilateral dry eyes estradiol (ESTRACE) 1 mg Take 1 mg by 6 7 10/01/2018 Tablet mouth 2 times daily. 2 tablets in the morning, 1 tablet nightly ergocalciferol Take 50,000 Units 1 08/07/201707/2018 (ERGOCALCIFEROL) 50,000 by mouth daily. unit Capsule VITAMIN D 1,000 unit Tablet Take 2,000 Units 0 03/24/2018 by mouth daily. hydroCHLOROthiazide Take 50 mg by 0 05/20/2017 (HYDRODIURIL) 50 mg Tablet mouth daily. metFORMIN (GLUCOPHAGE) Take 1,000 mg by 0 017 05/04/2018 1,000 mg Tablet mouth 2 times daily. nystatin (MYCOSTATIN) Take by mouth 4 0 7 07/15/2019 100,000 unit/mL Suspension times daily. BREO ELLIPTA 200-25 Inhale 1 puff 0 05/06/2017 mcg/dose Disk with Device into the lungs daily. levothyroxine (SYNTHROID) Take 300 mcg by 0 04/20/2018 150 mcg TabletIndications: mouth daily. added to = 325 mcg daily Indications: added to = 325 mcg daily levothyroxine (SYNTHROID) Take 25 mcg by 2 201504/20/2018 25 mcg Tablet mouth daily. pravastatin (PRAVACHOL) 20 TK 1 T PO QD 5 016 04/20/2018 mg Tablet ibuprofen (ADVIL;MOTRIN) TK ONE TABLET PO 3 03/1703/24/2018 800 mg Tablet 4x daily prn losartan (COZAAR) 50 mg TK ONE TABLET PO 11 201504/20/2018 Tablet QD carisoprodol (SOMA) 350 mg TK 1 T PO TID PRN 1 08/03/2018 Tablet ALBUTEROL SULFATE (PROAIR Inhale into the 0 04/20/2018 HFA INHL) lungs as needed. tiotropium (SPIRIVA) 18 mcg Inhale 18 mcg 0 03/24/2018 Capsule, w/Inhalation into the lungs Device daily as needed. gabapentin (NEURONTIN) 600 Take 900 mg in 150 tablet 3 10/1607/15/2019 mg TabletIndications: the morning and Headache(784.0) 900 mg at noontime. Take 1200 mg at bedtime. montelukast (SINGULAIR) 10 Take 10 mg by 0 03/24/2018 mg TabletIndications: mouth nightly. allergic rhinitis Indications: Allergic Rhinitis promethazine (PHENERGAN) 25 Take 25 mg by 0 11/22/2020 mg tablet mouth every 6 hours as needed. ALPRAZolam (XANAX) 1 mg Take 1 mg by 0 03/14/2022 tablet mouth 3 times daily as needed. FLUoxetine (PROZAC) 40 mg Take 80 mg by 0 07/04/2020 capsule mouth daily. ARIPiprazole (Abilify) 30 Take 30 mg by 0 03/14/2022 mg Tablet mouth daily. esomeprazole (NEXIUM) 40 mg Take 40 mg by 0 04/2210/29/2018 capsule mouth 2 times daily. documented as of this encounter ED Notes Salina Gonzales RN - 12/24/2017 8:16 AM EDT Pt verbalized understanding of d/c instructions. Exit via ambulation w/ steady gait. Salina Gonzales RN - 12/24/2017 8:05 AM EDT Lungs auscultated slightly coarse, but w/o wheezes. Dr Barr at bedside to review d/c instructions. Salina Gonzales RN - 12/24/2017 7:16 AM EDT Lungs auscultated w/ inspiratory/expiratory wheezes. Nebulizer treatments initiated. Pt denies alt comfort. Salina Gonzales RN - 12/24/2017 7:05 AM EDT Care assumed. Julio C Barr MD - 12/24/2017 6:13 AM EDT HPI Emmanuelle Bynum is a 52 y.o. female with a PMHx of COPD and DM2 who presents to the Emergency Department 5 days of productive cough, wheezing, fever (max 103F), chest pain with coughing, body aches,and fatigue. Symptoms began while visiting a friend here in the hospital. States it feels exactly like her past episodes of PNA, denies other assoc sx such as headache, lightheadedness, confusion, vision changes, sore throat, palpitations, abd pain, n/v, d/c, dysuria, hematuria, myalgias/arthralgias, bleeding/bruises/rashes, or n/t/w in her extremities. Review of Systems: Pertinent positive and negative ROS discussed in HPI, a total of 10 systems were reviewed with no other significant positives. Physical Exam: Patient Vitals for the past 24 hrs: BP Temp Temp src Pulse SpO2 12/24/17 0602 137/82 36.9 ??C (98.4 ??F) Oral 71 96 % Physical Exam Constitutional: She is oriented to person, place, and time. She appears well- developed and well-nourished. No distress. HENT: Head: Normocephalic and atraumatic. Right Ear: External ear normal. Left Ear: External ear normal. Nose: Nose normal. Mouth/Throat: Oropharynx is clear and moist. Eyes: Conjunctivae are normal. Right eye exhibits no discharge. Left eye exhibits no discharge. Neck: Normal range of motion. Neck supple. Cardiovascular: Normal rate. Pulmonary/Chest: Effort normal. No respiratory distress. She has wheezes. She has no rales. She exhibits no tenderness. Diffuse mild end exp wheezing Abdominal: Soft. She exhibits no distension. There is no tenderness. There is no rebound and no guarding. Musculoskeletal: Normal range of motion. She exhibits no edema, tenderness or deformity. Neurological: She is alert and oriented to person, place, and time. Skin: Skin is warm and dry. No rash noted. She is not diaphoretic. No erythema. No pallor. Psychiatric: She has a normal mood and affect. Nursing note and vitals reviewed. ED Course: - Patient was evaluated and discussed with Dr. Hawkins - Medications, allergies and past medical history reviewed - Medications and fluids administered: Duonebs x3, Prednisone 60mg, Doxy 100mg - I reviewed the x-ray images: No acute cardiopulmonary process. - I reviewed the labwork, detailed below. Recent Results (from the past 24 hour(s)) Basic Metabolic Panel (non-fasting) Result Value Ref Range Glucose Lvl 158 65 - 199 mg/dL BUN 18 8 - 18 mg/dL Creatinine 0.74 0.70 - 1.20 mg/dL Sodium 135 135 - 145 mmol/L Potassium 4.4 3.5 - 5.0 mmol/L Chloride 95 (L) 98 - 107 mmol/L CO2 27 22 - 31 mmol/L Anion Gap 13 5 - 15 mmol/L Calcium 9.5 8.5 - 10.5 mg/dL Estimated GFR >60 >=60 Hemogram Result Value Ref Range WBC 11.6 (H) 4.0 - 9.5 x10(3)/mcL RBC 4.26 4.00 - 5.21 x10(6)/mcL Hemoglobin 13.1 11.7 - 15.5 gm/dL Hematocrit 39.2 35.7 - 45.8 % MCV 92.0 82.6 - 94.4 fL MCH 30.8 27.1 - 32.0 pg MCHC 33.4 31.7 - 35.0 gm/dL Platelets 298 145 - 357 x10(3)/mcL RDWSD 46.9 (H) 37.0 - 46.0 fL RDWCV 13.9 11.5 - 14.1 % MPV 9.7 7.6 - 12.9 fL nRBC % Auto 0.0 % nRBC Abs Auto 0.000 0.000 - 0.000 x10(3)/mcL Differential, Automated Result Value Ref Range Neutrophils % 58.9 % Neutr Abs (ANC) 6.85 (H) 1.70 - 6.10 x10(3)/mcL Lymphocytes % 30.3 % Lymphocytes Abs 3.5 (H) 0.9 - 3.2 x10(3)/mcL Monocytes % 6.5 % Monocyte Abs 0.8 0.3 - 0.9 x10(3)/mcL Eosinophils % 2.3 % Eosinophils Abs 0.3 0.0 - 0.4 x10(3)/mcL Basophils % 0.8 % Basophils Abs 0.1 0.0 - 0.1 x10(3)/mcL Immature Gran % 1.20 % Sunshine Gran Abs 0.14 (H) 0.00 - 0.04 x10(3)/mcL - I reassessed the patient throughout their stay: Resting comfortably in bed with no acute complaints. Wheezing subsided, reported breathing much easier, felt safe and comfortable with discharge. Assessment and Plan: Assessment: 52 y.o. female with concern for a COPD exacerbation. CBC shows mild leukocytosis, but CBC and BMP otherwise unremarkable. CXR shows no e/o PNA or other acute pathology. [place] much better following duoneb administration. I also considered influenza, however given that she has had symptoms for almost a week, would not treat, and thus I do not think screening is warranted. [place] safe and comfortable with discharge, HD stable and in NAD throughout the ED stay. Plan: - Prednisone Burst and Doxy x5 days prescribed - Follow up with PCP - Return precautions were verbally discussed with the patient and written in the discharge instructions. The patient expressed understanding that they could come back to the ED at any time and agreed to the follow-up plan. Julio C Barr MD Resident 12/24/17 0812 Associated attestation - Tatiana Hawkins MD - 12/30/2017 7:45 AM EDT ED ATTENDING ATTESTATION NOTE The patient was seen in conjunction with Dr. Barr, the resident physician. I have independently performed [...] noted otherwise below. documented in this encounter Miscellaneous Notes ED Triage - Head, Nii T - 12/24/2017 6:03 AM EDT Patient has had a cough for several days after seeing a patient in the hospital. Hx COPD, Asthma, diabetes (non-insulin dependent). Patient has productive cough. SpO2 96% on room air. documented in this encounter Plan of Treatment Upcoming Encounters Date Type Specialty Care Team Description 08/06/2022 Office Visit Plastic Surgery Peña Woodward MD [facility] PLASTIC SURGERY [place], [place] [address] (Wo rk) 08/19/2022 Office Visit Podiatry Tom Titus DPM [place], [place] [address] (Wo rk) 09/08/2022 Office Visit Internal Medicine Janay Hay MD [facility] GENERAL INTERNAL MEDICINE [place], [place] [address] (Wo rk) 10/12/2059 Hospital Encounter Surgery Jim Hanley MD [facility] SPINE CENTER [place], [place] [address] (Wo rk) Scheduled Procedures Name [...] Date/Time Associated Diagnosis Comme nts HEMOGRAM STAT 12/24/2017 6:43 AM Results f or this EDT procedure are i n the results section. DIFFERENTIAL, STAT 12/24/2017 6:43 AM Results for this AUTOMATED EDT procedure are i n the results section. CBC (WITH DIFF) STAT 12/24/2017 6:43 AM EDT BASIC METABOLIC STAT 12/24/2017 6:43 AM Result s for this PANEL (NON-FASTING) EDT procedur e are in the results section. XR CHEST PA AND STAT 12/24/2017 6:29 AM Result s for this LATERAL EDT procedure are i n the results section. documented in this encounter Results (ABNORMAL) Differential, Automated (12/24/2017 6:43 AM EDT) [facility] gist Method Time Signature Neutrophils % 58.9 % [facility] Neutr Abs (ANC) 6.85 (H) 1.70 - [facility] 6.10 [facility] x10(3)/[facility] L LABORATORY Lymphocytes % 30.3 % [facility] Lymphocytes Abs 3.5 (H) 0.9 - 3.2 [facility] x10(3)/[facility] LABORATORY Monocytes % 6.5 % [facility] Monocyte Abs 0.8 0.3 - 0.9 [facility] x10(3)/[facility] LABORATORY Eosinophils % 2.3 % [facility] Eosinophils Abs 0.3 0.0 - 0.4 [facility] x10(3)/[facility] LABORATORY Basophils % 0.8 % [facility] Basophils Abs 0.1 0.0 - 0.1 [facility] x10(3)/[facility] LABORATORY Immature Gran % 1.20 % [facility] Comment: Immature granulocytes(IG's)percentage an d absolute count will include metamyelocytes, myelocytes, and promyelo cytes. Blood smears from CBCs yielding IG's will be scanned manually for concor dance. If this scan disagrees with the automated IG or if promyelocytes are not ed, a manual differential will be performed. Sunshine Gran Abs 0.14 (H) 0.00 - 0.04 x10(3)/[facility] LABORATORY Specimen Anatomical Collection Method Collection Time Receive d Time (Source) Location / / Volume Laterality Blood specimen 12/24/2017 6:43 AM 018 6:56 (specimen) EDT AM EDT Resulting Agency Comment Spec In Lab Julio C Barr MD HEMATOLOGY ORDERABLES Performing Organization Address City/State/ZIP Code Phon e Number [place] [phone] (ABNORMAL) Hemogram (12/24/2017 6:43 AM EDT) Analysis Performed At Patho logist Time Signature WBC 11.6 (H) 4.0 - 9.5 [facility] x10(3)/[facility] LABORATORY RBC 4.26 4.00 - [facility] 5.21 [facility] x10(6)/[facility] LABORATORY Hemoglobin 13.1 11.7 - [facility] 15.5 gm/dL [facility] LABORATORY Hematocrit 39.2 35.7 - [facility] 45.8 % [facility]OR[facility]ORY MCV 92.0 82.6 - [facility] 94.4 [facility] LABORATORY MCH 30.8 27.1 - [facility] 32.0 pg [facility] LABORATORY MCHC 33.4 31.7 - [facility] 35.0 gm/dL [facility] LAB[facility] Platelets 298 145 - 357 [facility] x10(3)/[facility] LABORATORY RDWSD 46.9 (H) 37.0 - [facility] 46.0 [facility] RDWCV 13.9 11.5 - [facility] 14.1 % [facility] LABORATORY MPV 9.7 7.6 - 12.9 [facility] LABORATORY nRBC % Auto 0.0 % [facility] nRBC Abs Auto 0.000 0.000 - [facility] 0.000 [facility] x10(3)/[facility] LABORATORY Specimen Anatomical Collection Method Collection Time Receive d Time (Source) Location / / Volume Laterality Blood specimen 12/24/2017 6:43 AM 018 6:56 (specimen) EDT AM EDT Resulting Agency Comment Spec In Lab Julio C Barr MD HEMATOLOGY ORDERABLES Performing Organization Address City/State/Z[place] [address] (ABNORMAL) Basic Metabolic Panel (non-fasting) (12/24/2017 6:43 AM EDT) P athologist Signature Glucose Lvl 158 65 - 199 [facility] mg/dL [facility] Comment: Diabetes: >=200 mg/dL plus symp toms BUN 18 8 - 18 mg/dL [facility] Creatinine 0.74 0.70 - 1.20 mg/dL [facility] Sodium 135 135 - 145 mmol/L [facility] Potassium 4.4 3.5 - 5.0 mmol/L [facility] Comment: Please note: ??Patients with WBC >100,00 0 may have falsely elevated Potassium levels. ??For accurate Potassium quantif ication in these patients send serum separator tube (gold top) for subsequent determinations. ??Contact the Clinical Chemistry Laboratory if there are any qu estions. Chloride 95 (L) 98 - 107 mmol/L [facility] CO2 27 22 - 31 mmol/L [facility] Anion Gap 13 5 - 15 mmol/L [facility] Calcium 9.5 8.5 - 10.5 mg/dL [facility] Estimated GFR >60 >=60 [facility] Comment: The reported eGFR should be multiplied b y 1.2 for patients. The MDRD is not an appropriate measure o f renal function for patients with body mass extremes or in patients with acute kidney failure. http://[employer]/DHnkdep http://[employer]/DHMCnkf Specimen Anatomical Collection Method Collection Time Receive d Time (Source) Location / / Volume Laterality Blood specimen 12/24/2017 6:43 AM 018 6:56 (specimen) EDT AM EDT Resulting Agency Comment Spec In Lab Tatiana Hawkins MD CHEMISTRY ORDERABLES Performing Organization Address City/State/[place] [address] XR Chest PA & Lateral (Generic) (12/24/2017 6:29 AM EDT) Anatomical Region Laterality Modality Chest N/A Digital Radiography Specimen (Source) Anatomical Location Collection Method / Collectio n Time Received Time / Laterality Volume Impressions 12/24/2017 6:32 AM EDT No acute cardiopulmonary process. Narrative 12/24/2017 6:32 AM EDT EXAMINATION: ??XR CHEST PA AND LATERAL (GENERIC) CLINICAL HISTORY: ??fever, cough, wheezi ng, concern for PNA TECHNIQUE: PA and lateral views. COMPARISON: ??None FINDINGS: No focal consolidation, pleural effusion or pulmonary edema is identified. The cardiac silhouette and pulmonary vascula ture are within normal limits. Procedure Note Bhupinder Castañeda MD - 12/24/2017 EXAMINATION: XR CHEST PA AND LATERAL (GE NERIC) CLINICAL HISTORY: fever, cough, wheezing , concern for PNA TECHNIQUE: PA and lateral views. COMPARISON: None FINDINGS: No focal consolidation, pleural effusion or pulmonary edema is identified. The cardiac silhouette and pulmonary vascula ture are within normal limits. IMPRESSION No acute cardiopulmonary process. Tatiana Hawkins MD IMG DX ORDERABLES documented in this encounter Visit Diagnoses Diagnosis COPD with exacerbation Obstructive chronic bronchitis with exac erbation Leukocytosis, unspecified type Cough Hyperthermia-induced defect Fever, unspecified Chest pain, unspecified type documented in this encounter Administered Medications Inactive Administered Medications - up to 3 most recent administrations Medication Order MAR Action Action Date Dose Rate Site doxycycline monohydrate (MONODOX) Given 12/24/2017 8:03 AM EDT 1 00 mg capsule 100 mg 100 mg, Oral, ONCE, 1 dose, On [place] 12/24/17 at 0802, STAT ipratropium-albuterol (DUONEB) 0.5 mg-3 mg(2.5 Given 0 12/24/2017 7:48 AM EDT 3 mLs mg base)/3 mL nebulizer solution 3 mL 3 mL, Nebulization, EVERY 20 MIN PRN, 3 doses, Starting on [place] 12/24/17 at 0611, Until [place] 12/24/17 at 0748, Wheezing, STAT Given 12/24/2017 7:31 AM EDT 3 mLs Given 12/24/2017 7:14 AM EDT 3 mLs predniSONE (DELTASONE) tablet 60 mg Given 12/24/2017 8:04 AM EDT 60 mg 60 mg, Oral, ONCE, 1 dose, On [place] 12/24/17 at 0802, STAT documented in this encounter Active and Recently Administered Medications Times are shown in EDT. Scheduled Medication Order 12/22/2017 12/23/2017 12/24/2017 doxycycline monohydrate (MONODOX) capsule 100 mg (COMPLETED) 08 (Given - Provider: Salina Gonzales RN) 100 mg, Oral, ONCE, 1 dose, [place] 12/24/17 at 0802, STAT predniSONE (DELTASONE) tablet 60 mg (COMPLETED) 08 (Given - Provider: Salina Gonzales RN) 60 mg, Oral, ONCE, 1 dose, [place] 12/24/17 at 0802, STAT PRN Medication Order 12/22/2017 12/23/2017 12/24/2017 ipratropium-albuterol (DUONEB) 0.5 mg-3 mg(2.5 mg base)/3 mL nebulizer solution 3 mL (COMPLETED) 0714 (Given - Provid er: Salina Gonzales RN)0731 (Given - Provider: Salina Gonzales RN)0748 (Given - Provider: Salina Gonzales RN) 3 mL, Nebulization, EVERY 20 MIN PRN, 3 doses, Starting [place] 12/24/17 at 0611, Until Discontinued, Wheezing, STAT documented in this encounter Care Teams Hand Worker Relationship Specialty Start Date End Date None PCP - General 12/24/17 01/25/18 None documented as of this encounter
--- OUTSIDE RECORDS SUMMARY | 2022-07-12 00:53 | XMS_ITS | Encounter Summary ---
:1965 Author Organization [facility] [place] [address] Care Team Providers Name Role Phone Ernestina Nowak Primary Care Provider Encounter Details Date Type Department Care Team Description 06/02/2017 Telephone Pain Management at Diandra Juares, RN [facility] [place] [phone] Social History Tobacco Use Types Packs/Day [...] this encounter Miscellaneous Notes Telephone Encounter - Diandra Murillo RN - 06/02/2017 12:07 PM EDT Patient called asking if her medical marijuana attestation had been mailed yet. Message sent to provider asking if this had been done. Patient notified. documented in this encounter Plan of Treatment Upcoming Encounters Date Type Specialty Care Team Description 08/06/2022 Office Visit Plastic Surgery Peña Woodward MD [facility] [place] [id number] ( jos[place] l[place]) 08/19/2022 Office Visit Podiatry Tom Titus DPM [place] [phone] ([place] ordonez) 09/08/2022 Office Visit Internal Medicine Janay Hay MD [facility] GENERAL INTERNAL MEDICINE [place], [place] [address] ([place]) 10/12/2059 Hospital Encounter Surgery Jim Hanley MD [facility] [place], [place] [address] ([place] ordone[place]) Scheduled Procedures Name Priority Associated Diagnoses [...] on filedocumented in this encounter Care Teams [employer] Relationship Specialty Start Date End Date Ernestina Nowak PA PCP - General Family Medicine 02/01/16 08/24/17 [address] [place] [address] documented as of this encounter
--- OUTSIDE RECORDS SUMMARY | 2022-07-12 00:53 | XMS_ITS | Encounter Summary ---
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 Buprenorphine+Metabolites (12/15/2017 3:15 PM EST) Patholo gist Method Time Signature U Buprenorphine Negative Cutoff: [place] 5.0 ng/mL [facility] Comment: Test Performed by: [facility] - [address] [place], [place] [address] U Norbuprenorphine Negative Cutoff: 2.5 ng/mL [facility] Comment: ADDITIONAL INFORMATIO N Testing performed by [employer]ograp hy-Tandem Mass Spectrometry (LC-MS/MS). This test was developed and its performa nce characteristics determined by [facility] in a manner co nsistent with CLIA requirements. This test has not been nigel ared or approved by the U.S. Food and Drug Administration. Test Performed by: [facility] - [address] [place] [id number] Specimen Anatomical Collection Method Collection Time Receive d Time (Source) Location / / Volume Laterality Urine specimen 12/15/2017 3:15 PM 018 4:30 (specimen) EST PM EST Resulting Agency Comment Spec In Lab Aracelis Mcknight MD CHEMISTRY ORDERABLES Performing Organization Address City/State/[place] [address] documented in this encounter Visit Diagnoses Diagnosis Cervical spondylosis without myelopathy Cervical spinal stenosis Spinal stenosis in cervical region Cervical disc displacement Displacement of cervical intervertebral disc without myelopathy Encounter for long-term opiate analgesic use Encounter for long-term (current) use of other medications Cervicalgia documented in this encounter
--- OUTSIDE RECORDS SUMMARY | 2022-07-12 00:53 | XMS_ITS | Encounter Summary ---
:1965 Author Organization [facility] [place] [address] Care Team Providers Name Role Phone [place] Primary Care Provider Encounter Details Date Type Department Care Team Description 03/24/2018 [facility], Perioral dermatitis [address] [place] [address] [facility] [place], [place] [address] (Wo rk) Social History Tobacco [...] documented as of this encounter Progress Notes Benji Layton, [employer] INSTRUMENT REPAIRER - 03/24/2018 4:30 PM EDT DERMATOLOGY ESTABLISHED PATIENT CLINIC NOTE Date of service: 03/24/2018 Emmanuelle Bynum : 1965 Provider: Jacob Blair MD PROBLEM: scalp psoriasis Scaling on feet SKIN HISTORY: Psoriasis, scalp SK's Onychodystrophy and scaling on feet and between toes. HPI Emmanuelle Bynum is a 52 y.o. year old female. Established patient to me last seen 03-17-18. Presents today for scalp psoriasis on the occiput She is not doing well, flared up since last kenalog shot in December 2017. She has been using topical clobetasol with some improvement, but continues to have thickened plaques with scaling on the posterior scalp. She is also complaining of adult acne with deep cysts around her chin that create scars that are slow to heal. She rubs them but denies picking. ADR: Allergies Allergen Reactions ??? Clonidine (Pf) Other (See Comments) stenens johnsons syndrome ??? Codeine Itching and Nausea Only ??? Methadone Nausea And Vomiting CURRENT MEDICATIONS: Current Outpatient Prescriptions Medication Sig Dispense Refill ??? BREO ELLIPTA 200-25 mcg/dose Disk with [...] 2 times daily. 60 tablet 3 ??? VITAMIN D 1,000 unit Tablet Take 2 tablets by mouth daily. 90 tablet 0 ??? ibuprofen (ADVIL;MOTRIN) 800 mg Tablet Take 1 tablet by mouth every 8 hours as needed for Pain. 30 tablet 3 ??? methocarbamol (ROBAXIN) 750 mg Tablet Take 1 tablet by mouth 4 times daily. 120 tablet 0 ??? albuterol 90 mcg/actuation HFA Aerosol Inhaler Inhale 2 puffs into the lungs every 4 hours as needed for Wheezing. Use with spacer 1 Inhaler 1 ??? Blood-Glucose Meter Misc 1 each by Misc.(Non-Drug; Combo Route) route once for 1 dose. 1 each 0 ??? blood sugar diagnostic strips Strip Use as instructed 100 each 12 ??? ondansetron (ZOFRAN) 4 mg Tablet Take 1 tablet by mouth every 8 hours as needed for Nausea. 20 tablet 0 ??? meclizine (ANTIVERT) 25 mg Tablet Take 1 tablet by mouth 3 times daily as needed. 90 tablet 0 ??? naratriptan (AMERGE) 2.5 mg Tablet Take one (1) tablet at onset of headache; if returns or does not resolve, may repeat after 4 hours; do not exceed five (5) mg in 24 hours. 10 tablet 0 ??? Clobetasol-Emollient 0.05 % Foam Apply twice daily to worse scalp psoriasis on weekends-only as needed dispense 3 bottles please 200 g 0 ??? betamethasone-calcipotriene (TACLONEX SCALP) 0.005-0.064 % Suspension Apply 3 times a week to scalp for psoriasis on weekdays. 120 g 0 ??? glipiZIDE (GLUCOTROL) 5 mg Tablet Take 5 mg by mouth 2 times daily (before meals). ??? cycloSPORINE (RESTASIS) 0.05 % Dropperette Place 1 drop into both eyes every 12 hours. 180 vial 3 ??? estradiol (ESTRACE) 1 mg Tablet Take 1 mg by mouth 2 times daily. 2 tablets in the morning, 1 tablet nightly 6 ??? ergocalciferol (ERGOCALCIFEROL) 50,000 unit Capsule Take 50,000 Units by mouth daily. 1 ??? hydroCHLOROthiazide (HYDRODIURIL) 50 mg Tablet Take 50 mg by mouth daily. 0 ??? metFORMIN (GLUCOPHAGE) 1,000 mg Tablet Take 1,000 mg by mouth 2 times daily. ??? nystatin (MYCOSTATIN) 100,000 unit/mL Suspension Take by mouth 4 times daily. ??? levothyroxine (SYNTHROID) 150 mcg Tablet Take 300 mcg by mouth daily. Indications: added to = 325 mcg daily ??? levothyroxine (SYNTHROID) 25 mcg Tablet Take 25 mcg by mouth daily. 2 ??? pravastatin (PRAVACHOL) 20 mg Tablet TK 1 T PO QD 5 ??? losartan (COZAAR) 50 mg Tablet TK ONE TABLET PO QD 11 ??? carisoprodol (SOMA) 350 mg Tablet TK 1 T PO TID PRN 1 ??? ALBUTEROL SULFATE (PROAIR HFA INHL) Inhale into the lungs as needed. ??? gabapentin (NEURONTIN) 600 mg Tablet Take 900 mg in the morning and 900 mg at noontime. Take 1200 mg at bedtime. 150 tablet 3 ??? fluticasone (VERAMYST) 27.5 mcg/actuation [place], Suspension 2 sprays by Nasal route daily. [...] tunnel syndrome on both sides G56.03 ??? Left elbow pain M25.522 ??? Ankle weakness M62.81 ??? Cervical radicular pain M54.12 ??? Atypical nevus of back D22.5 ??? Type 2 diabetes mellitus E11.9 ??? Seborrheic keratosis, inflamed L82.0 ??? Irritated nevus of face D22.30 ??? Lesion of skin of face L98.9 ??? Dermatofibroma D23.9 ??? Accessory skin tags Q82.8 ??? Chronic neck pain M54.2, G89.29 ??? Hemangioma - left shoulder M9120/0 ??? Spider veins - lower legs I78.1 ??? DDD (degenerative disc disease), cervical M50.30 ??? Encounter for long-term (current) use of other medications Z79.899 ??? Cervical disc displacement M50.20 ??? Cervical radiculitis M54.12 ??? Myopia of both eyes with astigmatism and presbyopia H52.13, H52.203, H52.4 ??? Bilateral dry eyes H04.123 ??? Controlled type 2 diabetes mellitus without complication E11.9 ??? Combined forms of age-related cataract of both eyes H25.813 ??? Plantar wart B07.0 ??? COPD (chronic obstructive pulmonary disease) J44.9 ??? Mild cognitive impairment, so stated G31.84 ??? Acne vulgaris L70.0 ??? Schizophrenia F20.9 ??? Bipolar II disorder F31.81 ??? Vitamin D deficiency E55.9 ??? Essential hypertension I10 ??? Hyperlipidemia E78.5 ??? Seasonal allergies J30.2 ROS General: feeling well. Oriented X 3. Skin: denies other skin complaints EXAM General: NAD, pleasant, cooperative Skin: focused exam of the head, including the scalp and face. Significant skin findings: A. Occipital scalp posterior (in the crease) - 5 - 6 mm area well defined erythematous plaque with white scale B. Scattered red papules on the chin and around the mouth with erythema and excoriation ASSESSMENT/PLAN: A. Psoriasis in scalp - the only active area appears to be on the occiput -I discussed this condition with the patient and explored therapeutic options. - she uses clobetasol foam for a few days (not over 2 weeks) then back to maintenance. She uses Taclonex for maintenance. . We discussed other options to gain better control. She needs a refill of Clobetasol foam. - Discussed Excimer Laser as a possible treatment option, patient is in agreement with this plan, will discuss with Namita about getting her in for this treatment - her insurance has approved treatmentwith the Excimer laser - We will forward this to Namita to call and set up her treatment. B. Perioral Dermatitis - face I discussed this condition with the patient and explored therapeutic options. Recommendations: - Start Rx: Doxycyline: one pill twice a day for 1 week, then one pill once a day for 2-3 weeks to gain control - take with food; avoid sun - handout provided RTC - 1 Month for Rosacea follow-up I am documenting this encounter acting as the scribe for and in the presence of Dr. Blair.: BENJI LAYTON LPN I, Kris Anderson, have performed the documentation for this encounter in the presence of and acting as a scribe for JACOB BLAIR III, MD. I performed the above scribed service and agree with the accuracy of the documentation in this encounter. Jacob Blair MD Section of Dermatology [facility] documented in this encounter Plan of Treatment Upcoming Encounters Date Type Specialty Care Team Description 08/06/2022 Office Visit Plastic Surgery Peña Woodward MD [facility] PLASTIC SURGERY [place], [place] [address] (Wo rk) 08/19/2022 Office Visit Podiatry Tom Titus DPM [place], [place] [address] (Wo rk) 09/08/2022 Office Visit Internal Medicine Janay Hay MD [facility] GENERAL INTERNAL MEDICINE [place], [place] [address] (Wo rk) 10/12/2059 Hospital Encounter Surgery iJm Hanley MD [facility] [place], [place] [address] (Wo rk) Scheduled Procedures Name [...] encounter Visit Diagnoses Diagnosis Psoriasis Other psoriasis Perioral dermatitis Rosacea documented in this encounter Care Teams Tightening Machine Operator Relationship Specialty Start Date End Date [place] PA PCP - General General Internal Medicine 01/26/18 8 [facility] General [place] [address] documented as of this encounter
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
--- OUTSIDE RECORDS SUMMARY | 2022-07-12 00:53 | XMS_ITS | Encounter Summary ---
:1965 Author Organization [facility] [place] [address] Care Team Providers Name Role Phone [place] Primary Care Provider Reason for Visit Reason Comments Follow-up Psoriasis Encounter Details Date Type Department Care Team Description 04/20/2018 Office Visit Dermatology at [facility] Jacob Potter erioral dermatitis; Road III, MD Psoriasis of scalp [address] [place] [address] [facility] [place], [place] [address] Social History Tobacco Use Types [...] documented as of this encounter Progress Notes Akosua Turner LPN - 04/20/2018 11:30 AM EDT DERMATOLOGY ESTABLISHED PATIENT CLINIC NOTE Date of service: 04/20/2018 Emmanuelle Bynum : 1965 Provider: Jacob Potter MD PROBLEM: follow up psoriasis and perioral dermatitis SKIN HISTORY: Psoriasis, scalp SK's Onychodystrophy and scaling on feet and between toes. HPI Emmanuelle Bynum is a 52 y.o. year old female with a history of psoriasis on the occiput scalp. She is doing better. She is still treating her scalp with Taclonex 2-3 times a week and had an Excimer Laser treatment this morning for the first time, but was already better from the taclonex solution;\. . She has been taking Doxycycline 100 mg BID for perioral dermatitis. She is much improved but stillhas mild flares. She has an inflammatory papule on the right side of her mouth which is beginning toresolve. She needs a refill of this. In general her affect is improved and her appearance is better than last visit. She reports a recenthospitalization and much improvement in her general status. ADR: Allergies Allergen Reactions ??? Clonidine (Pf) Other (See Comments) stenens johnsons syndrome ??? Codeine Itching and Nausea Only ??? Methadone Nausea And Vomiting CURRENT MEDICATIONS: Current Outpatient Prescriptions Medication Sig Dispense Refill ??? IBU 800 mg Tablet TAKE 1 [...] Use with spacer 1 Inhaler 1 ??? blood sugar diagnostic strips Strip Use [...] 3 bottles please 200 g 0 ??? doxycycline monohydrate (MONODOX) 100 mg Capsule One pill two times a day for 1 week then one pill a day for perioral dermatitis;take with food 30 capsule 1 ??? betamethasone-calcipotriene (TACLONEX SCALP) 0.005-0.064 % Suspension [...] tablet 3 ??? fluticasone (VERAMYST) 27.5 mcg/actuation Bivalve, Suspension 2 sprays by Nasal route daily. [...] scalp, and neck. Significant skin findings: A. Occipital scalp posterior (in the crease) - improved patch of psoriasis- only mild erythema present at this time, minimal scale B. No active perioral dermatitis around the mouth- ASSESSMENT/PLAN: A. Psoriasis in scalp - scalp improving - continue maintenance treatment withTaclonex solution 2-3 nights a week - Continue Excimer Laser - stop as areas clear. B. Perioral Dermatitis - face I discussed this condition with the patient and explored therapeutic options. Recommendations: - continue Rx: Doxycyline: weanoff the Doxy at this point - one pill once a day for another 1-2 weeks, then stop. Re-institute therapy when flaring take two pills a day until resolved- then wean off. take with food; avoid sun (refill sent) Take as little oral medication as necessary! RTC - 4-5 Months for FSE or sooner as needed Will check her in the light room as she completes her therapy with Xtrac. I am documenting this encounter acting as the scribe for and in the presence of Dr. Potter.: AKOSUA TURNER LPN I, Kris Anderson, have performed the documentation for this encounter in the presence of and acting as a scribe for JACOB POTTER III, MD. I performed the above scribed service and agree with the accuracy of the documentation in this encounter. Jacob Potter MD Section of Dermatology [facility] documented in this encounter Plan of Treatment Upcoming Encounters Date Type Specialty Care Team Description 08/06/2022 Office Visit Plastic Surgery Pñea Woodward MD [facility] PLASTIC SURGERY [place] [id number] ([place] ord[place]) 08/19/2022 Office Visit Podiatry Tom Titus DPM [place], [place] [address] ([place]) 09/08/2022 Office Visit Internal Medicine Janay Hay MD [facility] GENERAL INTERNAL MEDICINE [place], [place] [address] ([place]) 10/12/2059 Hospital Encounter Surgery Jim Hanley MD [facility] [place], [place] [address] (Wo rk) Scheduled Procedures Name [...] encounter Visit Diagnoses Diagnosis Perioral dermatitis Rosacea Psoriasis of scalp Other psoriasis documented in this encounter Care Teams Geriatric Nurse Assistant Relationship Specialty Start Date End Date [place] PA PCP - General General Internal Medicine 01/26/18 8 [facility] [place] [address] documented as of this encounter
--- OUTSIDE RECORDS SUMMARY | 2022-07-12 00:53 | XMS_ITS | Encounter Summary ---
:1965 Author Organization [facility] [place] [address] Care Team Providers Name Role Phone None Primary Care Provider Unavailable Encounter Details Date Type Department Care Team Description 01/13/2018 Telephone Dermatology at [facility] Jacob Langston III, [address] [place] [address] [facility] [phone] [facility] [place], [place] [address] (Wo rk) Social History Tobacco [...] Telephone Encounter - Akosua Turner LPN - 01/13/2018 3:53 PM EDT ----- Message from Jacob Blair III, MD sent at 01/06/2018 8:38 AM EDT ----- Please check on the lesion in scalp we treated. Thanks. See as planned if needed, sooner if problems arise. Patient does not answer and there is no messaging system. documented in this encounter Plan of Treatment Upcoming Encounters Date Type Specialty Care Team Description 08/06/2022 Office Visit Plastic Surgery Peña Woodward MD [facility] PLASTIC SURGERY [place], [place] [address] ([place]) 08/19/2022 Office Visit Podiatry Tom Titus DPM [place], [place] [address] ([place]) 09/08/2022 Office Visit Internal Medicine Janay Hay MD [facility] GENERAL INTERNAL MEDICINE [place], [place] [address] ([place]) 10/12/2059 Hospital Encounter Surgery Jim Hanley MD [facility] [place], [place] [address] (Wo rk) Scheduled Procedures Name [...] on filedocumented in this encounter Care Teams Asset Availability Leader Relationship Specialty Start Date End Date None PCP - General 12/24/17 01/25/18 None documented as of this encounter
--- OUTSIDE RECORDS SUMMARY | 2022-07-12 00:53 | XMS_ITS | Encounter Summary ---
:1965 Author Organization [facility] [address] Care Team Providers Name Role Phone [place] Primary Care Provider Reason for Referral Consultation (Routine) - Closed Specialty Diagnoses / Procedures Referred By Contact Refer red To Contact Pulmonology Diagnoses Asthma, unspecified asthma severity, unspecified whether complicated, unspecified whether persistent [place] PA [facility] [address] [place] [address] General Internal [place], [place] [phone] [place] [address] Referral ID Status Reason Start Date Expiration Date Visits V isits Requested Authorized [id number] Closed Specialty 03/26/2018 03/26/2019 1 1 Service Requested Reason for Visit Reason Comments Establish Care needs prescriptions. x 2 day s coughing alot to the point of vomiting, coughing up bright red blood Encounter Details Date Type Department Care Team Description 03/24/2018 Office Visit Internal Medicine at [place] E ncounter to establish care; [facility] Cough with hemoptysis; [facility], [facility]1983 Typ e 2 diabetes mellitus without complication, with long-term current use of insulin; Drive Hypothyroidism, unspecified type; [place], [place] General Internal Hyperlipide harish, unspecified hyperlipidemia type; [id number] Medicine Vitamin D deficiency; [phone] [place], [place] [address] Cervical radicular pain; [phone] Asthma, unspeci fied asthma severity, unspecified whether complicated, unspecified whether persistent; (Work) Vertigo Social History Tobacco Use Types Packs/Day Years [...] - Inhaled Oxygen Concentration - - Weight 100.2 kg (220 lb 12.8 oz) 03/24/2018 1:56 PM EDT Height 163 cm (5' 4.17) 03/24/2018 1:56 PM EDT Body Mass Index 37.7 03/24/2018 1:56 PM EDT documented in this encounter Progress Notes [place] PA - 03/24/2018 2:00 PM EDT Subjective: Emmanuelle Bynum, a 52 y.o. female with a history of uncontrolled asthma, COPD, DMT2, bipolar II, schizophrenia, depression, mild leukocytosis, HTN, HLD, hypothyroidism, SEB, vitamin D def, and multiple musculoskeletal issues including cervical radiculitis, carpal tunnel, and polyarthralgia to name a few, is here today to establish care and for medication refills. She has been out of all of her medications for the past 6 months, according to her. She has also had a dry cough with hemoptysis for the past 3 days and quantifies the amount produced as the equivalent to a quarter cup. She is a half/pack/day smoker for 20+ years. Denies any weight loss, night sweats, or chest pain/pressure/palpitations. For her Asthma, she is taking Singulair, Breo, Spiriva, and Proair and states that despite these therapies, she still goes through an entire Proair canister a week. Her psychiatric needs and medications are being managed by her psychiatrist. She is currently on Xanax, Prozac, and Abilify. Diabetes is being manages with Glipizide, Metformin, and insulin. Review of Systems Constitutional: Negative for activity change, fatigue and unexpected weight change. Respiratory: Positive for cough. Negative for shortness of breath. Cardiovascular: Negative for chest pain, palpitations and leg swelling. Neurological: Negative for light-headedness. Family History Problem Relation Age of Onset [...] Never Used ??? Alcohol use No Objective: Ht 163 cm (5' 4.17) Wt 100.2 kg (220 lb 12.8 oz) BMI 37.7 kg/m2 BP Readings from Last 3 Encounters: 12/24/17 124/80 12/15/17 139/87 08/25/17 129/78 Wt Readings from Last 3 Encounters: 03/24/18 100.2 kg (220 lb 12.8 oz) 12/15/17 102.1 kg (225 lb) 08/25/17 96.9 kg (213 lb 9.6 oz) Physical Exam Constitutional: She is oriented to person, place, and time. She appears well- developed and well-nourished. HENT: Head: Normocephalic and atraumatic. Right Ear: External ear normal. Left Ear: External ear normal. Nose: Nose normal. Mouth/Throat: Oropharynx is clear and moist. Cardiovascular: Normal rate, regular rhythm and normal heart sounds. Pulmonary/Chest: Effort normal. No respiratory distress. She has wheezes. Bilateral expiratory wheezes heard bilaterally and symmetrically. No dullness to percussion noted bilaterally. Inspiratory effort with bilateral equal rise without use of accessory muscles. Lymphadenopathy: She has no cervical adenopathy. Neurological: She is alert and oriented to person, place, and time. Skin: Skin is warm and dry. Psychiatric: She has a normal mood and affect. Lab Results Component Value Date WBC 11.9 (H) 03/24/2018 HGB 14.8 03/24/2018 HCT 43.8 03/24/2018 MCV 89.9 03/24/2018 PLATELET 308 03/24/2018 Lab Results Component Value Date NA 144 03/24/2018 K 3.9 03/24/2018 CL 104 03/24/2018 CO2 24 03/24/2018 BUN 9 03/24/2018 CREATININE 0.68 (L) 03/24/2018 GLUCOSE 138 03/24/2018 CALCIUM 9.1 03/24/2018 ESTGFR 102 03/24/2018 Lab Results Component Value Date ALT 12 03/24/2018 AST 6 03/24/2018 ALKPHOS 76 03/24/2018 BILITOT 0.3 03/24/2018 BILIDIR <0.1 11/13/2015 ALBUMIN 4.2 03/24/2018 PROT 7.3 03/24/2018 Lab Results Component Value Date TSH 3.54 03/24/2018 Lipid Panel Lab Results Component Value Date CHLPL 218 03/24/2018 HDL 41 03/24/2018 CHOLHDL 5.3 03/24/2018 TRIG 270 03/24/2018 LDLCHOL 123 03/24/2018 Lab Results Component Value Date HA1C 8.1 (H) 03/24/2018 Tests/Imaging/Procedures 1) CXR: No acute cardiopulmonary pathology. Assessment and Plan: 1. Encounter to establish care Medical record partially updated. 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 Our medication records are incomplete. 2. Cough with hemoptysis CXR and labs unremarkable. Likely a small tear as the result of her excessive coughing; likely as the result of her uncontrolled asthma and COPD. Will FU with this during her next appointment. Will send a referral to pulmonology for further management and for PFT's. 3. Type 2 diabetes mellitus without complication, with long-term current use of insulin A1c 8.1%. Will FU during next appointment. 4. Hypothyroidism, unspecified type TSH in a good range. She states that she hasn't been on any synthroid in 6 months.... If this is true, then no need to continue with Synthroid as she is in a good range. Will double check her statementduring next appointment. 5. Hyperlipidemia, unspecified hyperlipidemia type - Lipid Panel; Future - Lipid Panel 6. Vitamin D deficiency - Vitamin D, 25-Hydroxy; Future - Vitamin D, 25-Hydroxy 7. Cervical radicular pain - methocarbamol (ROBAXIN) 750 mg Tablet; Take 1 tablet by mouth 4 times daily. Dispense: 120 tablet;Refill: 0 8. Asthma, unspecified asthma severity, unspecified whether complicated, unspecified whether persistent Plan as above. Rescue inhaler refilled. 9. Vertigo - ondansetron (ZOFRAN) 4 mg Tablet; Take 1 tablet by mouth every 8 hours as needed for Nausea. Dispense: 20 tablet; Refill: 0 - meclizine (ANTIVERT) 25 mg Tablet; Take 1 tablet by mouth 3 times daily as needed. Dispense: 90 tablet; Refill: 0 - naratriptan (AMERGE) 2.5 mg Tablet; Take one (1) tablet at onset of headache; if returns or does not resolve, may repeat after 4 hours; do not exceed five (5) mg in 24 hours. Dispense: 10 tablet; Refill: 0 - An After Visit Summary was printed and given to the patient. - Emmanuelle was given the necessary information on her condition and instructed to return to clinic if symptoms continue or worsen. documented in this encounter Plan of Treatment Upcoming Encounters Date Type Specialty Care Team Description 08/06/2022 Office Visit Plastic Surgery Peña Woodward MD [facility] PLASTIC SURGERY [place], [place] [address] (Wo rk) 08/19/2022 Office Visit Podiatry Tom Titus DPM [place], [place] [address] (Wo rk) 09/08/2022 Office Visit Internal Medicine Janay Hay MD [facility] GENERAL INTERNAL MEDICINE [place], [place] [address] (Wo rk) 10/12/2059 Hospital Encounter Surgery Jim Hanley MD [facility] SPINE CENTER [place], [place] [address] (Wo rk) Scheduled Procedures Name [...] S chedule Referral to Outpatient Referral Routine Asthma, unspecified O rdered: Pulmonology asthma severity, 03/26/2018 unspecified whether complicated, unspecified whether persistent documented as of this encounter Procedures Procedure Name Priority Date/Time Associated Diagnosis Comme nts HEMOGRAM Routine 03/24/2018 3:35 Cough with hemoptysis Res ults for this PM EDT procedure are i n the results section. DIFFERENTIAL, Routine 03/24/2018 3:35 Cough with hemoptysis Re sults for this AUTOMATED PM EDT procedure are i n the results section. VITAMIN D, 25-HYDROXY Routine 03/24/2018 3:35 Vitamin D defici ency Results for this PM EDT procedure are i n the results section. CBC (WITH DIFF) Routine 03/24/2018 3:35 Cough with hemoptysis PM EDT TSH Routine 03/24/2018 3:35 Hypothyroidism, Results f or this PM EDT unspecified type procedure a re in the results section. HEMOGLOBIN A1C Routine 03/24/2018 3:35 Type 2 diabetes Results for this PM EDT mellitus without procedure a re in complication, with the resul ts long-term current use sectio n. of insulin LIPID PANEL (REFLEX Routine 03/24/2018 3:35 Hyperlipidemia, Re sults for this DIRECT LDL) PM EDT unspecified procedure are i n hyperlipidemia type the resu lts section. COMPREHENSIVE Routine 03/24/2018 3:35 Cough with hemoptysis Re sults for this METABOLIC PANEL PM EDT procedure ar e in (NON-FASTING) the results section. documented in this encounter Results (ABNORMAL) Differential, Automated (03/24/2018 3:35 PM EDT) [facility] Method Time Signature Neutrophils % 59.7 % [facility] Neutr Abs (ANC) 7.08 (H) 1.70 - [facility] 6.10 [facility] x10(3)/[facility] LABORATORY Lymphocytes % 29.5 % [facility] Lymphocytes Abs 3.5 (H) 0.9 - 3.2 [facility] x10(3)/[facility] LABORATORY Monocytes % 6.2 % [facility] Monocyte Abs 0.7 0.3 - 0.9 [facility] x10(3)/[facility] LABORATORY Eosinophils % 2.7 % [facility] Eosinophils Abs 0.3 0.0 - 0.4 [facility] x10(3)/[facility] LABORATORY Basophils % 0.8 % [facility] Basophils Abs 0.1 0.0 - 0.1 [facility] x10(3)/[facility] LABORATORY Immature Gran % 1.10 % [facility] Comment: Immature granulocytes(IG's)percentage an d absolute count will include metamyelocytes, myelocytes, and promyelo cytes. Blood smears from CBCs yielding IG's will be scanned manually for concmayo dankory. If this scan disagrees with the automated IG or if promyelocytes are not ed, a manual differential will be performed. [place] Gran Abs 0.13 (H) 0.00 - 0.04 x10(3)/[facility] LABORATORY Specimen Anatomical Collection Method Collection Time Receive d Time (Source) Location / / Volume Laterality Blood specimen 03/24/2018 3:35 PM 018 3:45 (specimen) EDT PM EDT Resulting Agency Comment Spec In Lab [facility]AT[facility] ORDERABLES Performing Organization Address City/State/[place] [address] (ABNORMAL) Hemogram (03/24/2018 3:35 PM EDT) Analysis Performed At Patho logist Time Signature WBC 11.9 (H) 4.0 - 9.5 [facility] LABORATORY RBC 4.87 4.00 - [employer] 5.21 [facility] x10(6)/[facility] LABORATORY Hemoglobin 14.8 11.7 - [facility] 15.5 gm/dL [facility] Hematocrit 43.8 35.7 - [place] [facility] 45.8 % [facility] MCV 89.9 82.6 - [facility] 94.4 [facility] LABORATORY MCH 30.4 27.1 - [facility] [employer] [facility] 32.0 pg [facility] MCHC 33.8 31.7 - [place] 35.0 gm/dL [facility] Platelets 308 145 - 357 [facility] x10(3)/[facility] LABORATORY RDWSD 42.7 37.0 - [facility] CHANDA 46.0 [facility] LABORATORY RDWCV 13.0 11.5 - [place] [facility]ANDA 14.1 % [facility] MPV 10.1 7.6 - 12.9 [facility] nRBC % Auto 0.0 % [facility] nRBC Abs Auto 0.000 0.000 - [facility] CHANDA 0.000 [facility] x10(3)/[facility] LABORATORY Specimen Anatomical Collection Method Collection Time Receive d Time (Source) Location / / Volume Laterality Blood specimen 03/24/2018 3:35 PM 018 3:45 (specimen) EDT PM EDT Resulting Agency Comment Spec In Lab [facility]AT[facility] ORDERABLES Performing Organization Address City/State/[place] [address] (ABNORMAL) Vitamin D, 25-Hydroxy (03/24/2018 3:35 PM EDT) P athologist Signature 25-OH Vit D 23 (L) 30 - 100 [facility] Total ng/mL [facility] Comment: Deficient <10 ng/mL Insufficient 10 to 29 ng/mL Sufficient 30 to 100 ng/mL Potential Intoxication >100 ng/mL According to the [place] National Osteoporosi s Foundation, Vitamin D concentrations >30 ng/mL are sufficient to protect bone health. ??The National Kidney Foundation has similarly stated that pat ients with Vitamin D concentrations <30ng/mL should be considered to be insu fficient or deficient. http://Voölks/nkf-guidelines http://Voölks/nejm-VitD The [employer] Vitamin D Immunoassay detec ts both 25-OH Vitamin D2 and 25-OH Vitamin D3, but only a total Vitamin D c oncentration is reported. Specimen Anatomical Collection Method Collection Time Receive d Time (Source) Location / / Volume Laterality Blood specimen 03/24/2018 3:35 PM 018 7:18 (specimen) EDT AM EDT Resulting Agency Comment Spec In Lab Chacha Frazier MD CHEMISTRY ORDERABLES Performing Organization Address City/State/ZIP Code Phon e Number [place] [phone] (ABNORMAL) Hemoglobin A1c (03/24/2018 3:35 PM EDT) Analysis Performed At Patho logist Time Signature Hemoglobin A1C 8.1 (H) 4.3 - 5.6 [facility] % [facility] Comment: Reference Range: 4.3 - [...] Mellitus, Diabetes Care 2013; 36: Suppl. 1, Y77-98 Est Avg Gluc 186 mg/dL [facility] Comment: eAG equivalents for HbA1c percentages: HbA1c(%) ?eAG(mg/dL) 6.0 ?126 6.5 ?140 7.0 ?154 7.5 ?169 8.0 ?183 8.5 ?197 9.0 ?212 9.5 ?226 10.0 ? 240 Limitations: The eAG calculation has not been validated on women, individuals below 18 years old and above 70 years old, and individuals with hemoglobinopathies. Additional resources are available on [facility] ADA website. Steev CHAO, Bhumi J, Kay R, et al. ??Tr anslating the A1C assay into estimated average glucose values. ??Diabetes Care 2008:31(8):2487-9622. Specimen Anatomical Collection Method Collection Time Receive d Time (Source) Location / / Volume Laterality Blood specimen 03/24/2018 3:35 PM 018 3:45 (specimen) EDT PM EDT Resulting Agency Comment Spec In Lab Chacha Frazier MD CHEMISTRY ORDERABLES Performing Organization Address City/State/[place] [address] Lipid Panel (03/24/2018 3:35 PM EDT) P athologist Signature Chol, Total 218 mg/dL [facility] Comment: Lower Risk: <200 mg/dL Average Risk: 200-239 mg/dL Higher Risk: >hm=745 mg/dL Triglycerides 270 mg/dL [facility] Comment: Average Risk/Lower Risk: <150 mg/dL Borderline High Risk: 150-199 mg/dL High Risk: 200-499 mg/dL Very High Risk: >iw=110 mg/dL HDL 41 mg/dL [facility] Comment: Males: ?? Higher Risk: <40 mg/dL Females: ?? HIgher Risk: <50 mg/dL LDL Cholesterol 123 mg/dL [facility] Comment: Lowest Risk: <100 mg/dL Lower Risk: 100-129 mg/dL Borderline High Risk: 130-159 mg/dL High Risk: 160-189 mg/dL Very High Risk: >ps=907 mg/dL Chol/HDL Ratio 5.3 ratio [facility] Lipid Interpretation See Note [facility] Comment: Lipid management should be guided by a p atient? s ASCVD risk, goals and preferences. ACC/AHA Guidelines recommend high intens ity statin if clinical ASCVD or LDL greater than or equal to 190 mg/dL. http://Voölks/GYK-AXA-Zbtxvvhny Adults aged 40-75 with LDL 70-189 mg/dL should have their 10 year ASCVD risk estimated with the ACC/AHA ASCVD risk es timator http://tools.acc.org/FNHOG-Swng-Ajgnqaqw r/ Statin should be discussed if risk [...] Location / / Volume Laterality Blood specimen 03/24/2018 3:35 PM 018 3:45 (specimen) EDT PM EDT Resulting Agency Comment Spec In Lab Chacha Frazier MD CHEMISTRY ORDERABLES Performing Organization Address City/State/[place] [address] TSH (03/24/2018 3:35 PM EDT) athologist Signature TSH 3.54 0.27 - 4.20 [facility] mlU/ML [facility] Specimen Anatomical Collection Method Collection Time Receive d Time (Source) Location / / Volume Laterality Blood specimen 03/24/2018 3:35 PM 018 3:45 (specimen) EDT PM EDT Resulting Agency Comment Spec In Lab Chacha Frazier MD CHEMISTRY ORDERABLES Performing Organization Address City/State/[place] [address] (ABNORMAL) Comprehensive metabolic panel (non-fasting) (03/24/2018 3:35 PM EDT) P athologist Signature Glucose Lvl 138 65 - 199 [facility] mg/dL [facility] Comment: Diabetes: >=200 mg/dL plus symp toms BUN 9 8 - 18 mg/dL [facility] Creatinine 0.68 (L) 0.70 - 1.20 mg/dL [facility] Sodium 144 135 - 145 mmol/L [facility] Potassium 3.9 3.5 - 5.0 mmol/L [facility] Comment: Please note: ??Patients with WBC >100,00 0 may have falsely elevated Potassium levels. ??For accurate Potassium quantif ication in these patients send serum separator tube (gold top) for subsequent determinations. ??Contact the Clinical Chemistry Laboratory if there are any qu estions. Chloride 104 98 - 107 mmol/L [facility] CO2 24 22 - 31 mmol/L [facility] Anion Gap 16 (H) 5 - 15 mmol/L [facility] Calcium 9.1 8.5 - 10.5 mg/dL [facility] Total Protein 7.3 6.1 - 8.0 gm/dL [facility] Albumin 4.2 3.2 - 5.2 gm/dL [facility] AST 6 0 - 30 unit/L [facility] ALT 12 0 - 30 unit/L [facility] Alk Phos 76 40 - 104 unit/L [facility] Total Bilirubin 0.3 0.2 - 1.3 mg/dL [facility] Estimated GFR 102 >=60 mL/min/1.73 m?? [facility] Comment: The eGFR was calculated using the CKD-EP I equation. As with all creatinine based estimates of kidney function, eGFR values calculated with the CKD-EPI equation are not accurate in patients wi th acute kidney failure, extremes of body mass or the acutely ill. http://Voölks/Podimetricsnkdep http://Voölks/Podimetricsnkf eGFR 118 >=60 mL/min/1.73 m?? [facility] Comment: The eGFR was calculated using the CKD-EP I equation. As with all creatinine based estimates of kidney function, eGFR values calculated with the CKD-EPI equation are not accurate in patients wi th acute kidney failure, extremes of body mass or the acutely ill. http://Voölks/Podimetricsnkdep http://Voölks/[facility] Specimen Anatomical Collection Method Collection Time Receive d Time (Source) Location / / Volume Laterality Blood specimen 03/24/2018 3:35 PM 018 3:45 (specimen) EDT PM EDT Resulting Agency Comment Spec In Lab Chacha Frazier MD CHEMISTRY ORDERABLES Performing Organization Address City/State/[place] [address] XR Chest PA & Lateral (Generic) (03/24/2018 3:09 PM EDT) Anatomical Region Laterality Modality Chest N/A Digital Radiography Specimen (Source) Anatomical Location Collection Method / Collectio n Time Received Time / Laterality Volume Impressions 03/24/2018 3:51 PM EDT No acute cardiopulmonary pathology. I have personally reviewed the image(s) and the residents interpretation and agree with the findings, Tom cope 03/24/2018 3:51 PM Narrative 03/24/2018 3:51 PM EDT EXAMINATION: XR CHEST PA AND LATERAL (GENERIC) CLINICAL HISTORY: 3 day history of hemop tysis TECHNIQUE: PA and lateral standing radiographs. COMPARISON: Most recent from 12/24/2017. FINDINGS: No focal consolidation. No pneumothorax or pleural effusion. The cardiomediastinal silhouette is within n ormal limits. No acute osseous abnormality. Procedure Note Tom Hogan MD - 03/24/2018Formatt ing of this note might be different from the original. EXAMINATION: XR CHEST PA AND LATERAL ([employer]IC) CLINICAL HISTORY: 3 day history of hemop tysis TECHNIQUE: PA and lateral standing radiographs. COMPARISON: Most recent from 12/24/2017. FINDINGS: No focal consolidation. No pneumothorax or pleural effusion. The cardiomediastinal silhouette is within n ormal limits. No acute osseous abnormality. IMPRESSION No acute cardiopulmonary pathology. I have personally reviewed the image(s) and the residents interpretation and agree with the findings, Tom cope 03/24/2018 3:51 PM Chacha Frazier MD IMG DX ORDERABLES documented in this encounter Visit Diagnoses Diagnosis Encounter to establish care Other reasons for seeking consultation Cough with hemoptysis Other hemoptysis Type 2 diabetes mellitus without complic ation, with long-term current use of insulin Hypothyroidism, unspecified type Hyperlipidemia, unspecified hyperlipidem ia type Vitamin D deficiency Unspecified vitamin D deficiency Cervical radicular pain Brachial neuritis or radiculitis nos Asthma, unspecified asthma severity, uns pecified whether complicated, unspecified whether persistent Vertigo Dizziness and giddiness Cough with hemoptysis Other hemoptysis documented in this encounter Care Teams Mattress Packer Relationship Specialty Start Date End Date [place] PA PCP - General General Internal Medicine 01/26/18 8 [facility] [place] [address] documented as of this encounter
--- OUTSIDE RECORDS SUMMARY | 2022-07-12 00:53 | XMS_ITS | Encounter Summary ---
:1965 Author Organization [facility] Address [address] [place] [address] Care Team Providers Name Role Phone [place] Primary Care Provider Encounter Details Date Type Department Care Team Description 01/27/2018 Abstract Internal Medicine at [facility] Cathie Still , [address] [place] [address] Social History Tobacco Use Types Packs/Day [...] MD [facility] PLASTIC SURGERY [place] [phone] (Wo rk) 08/19/2022 Office Visit Podiatry Tom Titus DPM [place] [phone] (Wo rk) 09/08/2022 Office Visit Internal Medicine Janay Hay MD [facility] GENERAL INTERNAL MEDICINE [place] [phone] (Wo rk) 10/12/2059 Hospital Encounter Surgery Jim Hanley MD [facility] SPINE CENTER [place] [address] (Wo rk) Scheduled Procedures Name Priority Associated [...] on filedocumented in this encounter Care Teams Theater Usher Relationship Specialty Start Date End Date [place] PA PCP - General Internal Medicine 01/26/[address] [place] [address] [place] [address] documented as of this encounter
--- OUTSIDE RECORDS SUMMARY | 2022-07-12 00:53 | XMS_ITS | Encounter Summary ---
:1965 Author Organization [facility] [place] [address] Care Team Providers Name Role Phone Chandler Bay Primary Care Provider Reason for Visit Reason Onset Date Comments Medication Refill 02/17/2018 Encounter Details Date Type Department Care Team Description 02/17/[address] [facility] Jacob Blair III, MD Psoriasis [address] [facility] [place] [phone] [facility] [address]-DERMATOLGY [phone] [place], [place] [address] (Wo rk) Social History Tobacco [...] MD [facility] PLASTIC SURGERY [place] [phone] ([facility]) 08/19/2022 Office Visit Podiatry Tom Titus DPM [place] [phone] ([facility]) 09/08/2022 Office Visit Internal Medicine Janay Hay MD [facility] GENERAL INTERNAL MEDICINE [place] [phone] ( rk) 10/12/2059 Hospital Encounter Surgery Jim Hanley MD [facility] SPINE CENTER [place] [phone] ( rk) Scheduled Procedures Name Priority Associated [...] psoriasis documented in this encounter Care Teams Tuck Pointer Relationship Specialty Start Date End Date Chandler Bay PA PCP - General Internal Medicine 01/26/[address] [place] [address] [place] [address] documented as of this encounter
--- OUTSIDE RECORDS SUMMARY | 2022-07-12 00:53 | XMS_ITS | Encounter Summary ---
:1965 Author Organization [facility] Address [address] [facility] [place] [place] [address] Care Team Providers Name Role Phone Chandler Bay Primary Care Provider Encounter Details Date Type Department Care Team Description 03/24/2018 Hospital Encounter XRay at [facility] Chacha Frazier, Cough with [address] [place] hemoptysis [facility] [id number] [place] [phone] GENERAL INTERNAL MEDICINE [place], [place] [address] Social History Tobacco Use Types [...] 27.5 2 sprays by Nasal 0 mcg/actuation [place], route daily. SuspensionIndications: Indications: allergic rhinitis Allergic Rhinitis IBU 800 mg TAKE 1 TABLET BY 270 tablet 3 03/25/2018 02/29/20 19 TabletIndications: Cervical MOUTH EVERY 8 radicular pain HOURS NEEDED PAIN BREO ELLIPTA 200-25 Inhale 1 puff 60 each 3 03/24/2018 mcg/dose Disk with Device into the lungs daily. tiotropium (SPIRIVA) 18 mcg Inhale 1 capsule 90 capsule 3 12/29/2018 Capsule, w/Inhalation into the lungs Device daily. montelukast (SINGULAIR) 10 Take 1 tablet by 30 tablet 3 10/24/2018 mg TabletIndications: mouth nightly. allergic rhinitis Indications: Allergic Rhinitis varenicline (CHANTIX) 1 mg Take 1 tablet by 60 tablet 3 09/23/2018 Tablet mouth 2 times daily. VITAMIN D 1,000 unit Tablet Take 2 tablets by 90 tablet 0 0 03/24/2018 04/26/2020 mouth daily. methocarbamol (ROBAXIN) 750 Take 1 tablet by 120 tablet 0 08/03/2018 mg TabletIndications: mouth 4 times Cervical radicular pain daily. albuterol 90 mcg/actuation Inhale 2 puffs 1 Inhaler 1 03/2404/25/2018 HFA Aerosol into the lungs InhalerIndications: Asthma, every 4 hours as unspecified asthma needed for severity, unspecified Wheezing. Use whether complicated, with spacer unspecified whether persistent blood sugar diagnostic Use as instructed 100 each 12 201705/05/2018 strips StripIndications: Type 2 diabetes mellitus without complication, with long-term current use of insulin ondansetron (ZOFRAN) 4 mg Take 1 tablet by 20 tablet 0 03/1206/29/2018 TabletIndications: Vertigo mouth every 8 hours as needed for Nausea. meclizine (ANTIVERT) 25 mg Take 1 tablet by 90 tablet 0 06/30/2018 TabletIndications: Vertigo mouth 3 times daily as needed. naratriptan (AMERGE) 2.5 mg Take one (1) 10 tablet 0 201706/30/2018 TabletIndications: Vertigo tablet at onset of headache; if returns or does not resolve, may repeat after 4 hours; do not exceed five (5) mg in 24 hours. Clobetasol-Emollient 0.05 % Apply twice daily 200 g 0 0 03/24/2018 06/29/2018 FoamIndications: Psoriasis to worse scalp psoriasis on weekends-only as needed dispense 3 bottles please doxycycline monohydrate One pill two 30 capsule 1 03/24/2018 04/20/2018 (MONODOX) 100 mg times a day for 1 CapsuleIndications: week then one Perioral dermatitis pill a day for perioral dermatitis;take with food betamethasone-calcipotriene Apply 3 times a 120 g 0 03/201806/15/2018 (TACLONEX SCALP) week to scalp for 0.005-0.064 % psoriasis on SuspensionIndications: . Psoriasis glipiZIDE (GLUCOTROL) 5 mg Take 5 mg by 0 05/04/2018 Tablet mouth 2 times daily (before meals). cycloSPORINE (RESTASIS) Place 1 drop into 180 vial 3 10/2010/26/2020 0.05 % both eyes every DropperetteIndications: 12 hours. Bilateral dry eyes estradiol (ESTRACE) 1 mg Take 1 mg by 6 7 10/01/2018 Tablet mouth 2 times daily. 2 tablets in the morning, 1 tablet nightly ergocalciferol Take 50,000 Units 1 08/07/201707/2018 (ERGOCALCIFEROL) 50,000 by mouth daily. unit Capsule hydroCHLOROthiazide Take 50 mg by 0 05/20/2017 (HYDRODIURIL) 50 mg Tablet mouth daily. metFORMIN (GLUCOPHAGE) Take 1,000 mg by 0 017 05/04/2018 1,000 mg Tablet mouth 2 times daily. nystatin (MYCOSTATIN) Take by mouth 4 0 7 07/15/2019 100,000 unit/mL Suspension times daily. levothyroxine (SYNTHROID) Take 300 mcg by 0 04/20/2018 150 mcg TabletIndications: mouth daily. added to = 325 mcg daily Indications: added to = 325 mcg daily levothyroxine (SYNTHROID) Take 25 mcg by 2 201504/20/2018 25 mcg Tablet mouth daily. pravastatin (PRAVACHOL) 20 TK 1 T PO QD 5 016 04/20/2018 mg Tablet losartan (COZAAR) 50 mg TK ONE TABLET PO 11 201504/20/2018 Tablet QD carisoprodol (SOMA) 350 mg TK 1 T PO TID PRN 1 08/03/2018 Tablet ALBUTEROL SULFATE (PROAIR Inhale into the 0 04/20/2018 HFA INHL) lungs as needed. gabapentin (NEURONTIN) 600 Take 900 mg in 150 tablet 3 10/1607/15/2019 mg TabletIndications: the morning and Headache(784.0) 900 mg at noontime. Take 1200 mg at bedtime. promethazine (PHENERGAN) 25 Take 25 mg by [...] MD [facility] PLASTIC SURGERY [place], [place] [address] (Wo rk) 08/19/2022 Office Visit Podiatry Tom Titus DPM [place], [place] [address] (Wo rk) 09/08/2022 Office Visit Internal Medicine Janay Hay MD [facility] GENERAL INTERNAL MEDICINE [place], [place] [address] (Wo rk) 10/12/2059 Hospital Encounter Surgery Jim Hanley MD [facility] SPINE CENTER [place], [place] [address] (Wo rk) Scheduled Procedures Name [...] Priority Date/Time Associated Diagnosis Comme nts XR CHEST PA AND Routine 03/24/2018 3:09 PM Cough with Result s for this LATERAL EDT hemoptysis procedure are i n the results section. documented in this encounter Results XR Chest PA & Lateral (Generic) (03/24/2018 [...] original. EXAMINATION: XR CHEST PA AND LATERAL (CommScope) CLINICAL HISTORY: 3 day history of hemop [...] documented in this encounter Visit Diagnoses Diagnosis Cough with hemoptysis Other hemoptysis documented in this encounter Care Teams Supervisor [employer] Relationship Specialty Start Date End Date Chandler Bay PA PCP - General General Internal Medicine 01/26/18 8 [facility] [place] [address] documented as of this encounter
--- OUTSIDE RECORDS SUMMARY | 2022-07-12 00:53 | XMS_ITS | Encounter Summary ---
:1965 Author Organization [facility] Address [address] [place] [address] Care Team Providers Name Role Phone Ernestina Nowak Primary Care Provider Encounter Details Date Type Department Care Team Description 03/30/2017 Notes Only Pain Management at L Jason Pierson MD [facility] [place] [address] [facility] [phone] [place] [phone] (Wo rk) Social History Tobacco Use Types [...] documented as of this encounter Progress Notes Jason Mcknight MD - 03/30/2017 7:15 PM EDT I attempted to contact the patient this evening. She is scheduled to see me tomorrow. She had received a Medical Cannabis attestation 12/2015. She followed up appropriately in April and was supposed to follow up again 6 months later. She did not comply with this. She had been informed that she would need to come for evaluations at regular intervals in order to continue to receive attestation for Medical Cannabis. Patients receiving Medical Cannabis need to have evaluations in order to determine efficacy and if goals are being met. She was not seen when the anniversary for renewal of her Medical Cannabis card occurred. Given her history of non compliance with opioid use and now non compliance with follow up for Medical Cannabis, I will not be renewing her attestation. I called to inform her of this,since she travels a distance to get to [facility]. JASON MCKNIGHT MD documented in this encounter Plan of Treatment Upcoming Encounters Date Type Specialty Care Team Description 08/06/2022 Office Visit Plastic Surgery Peña Woodward MD [facility] PLASTIC SURGERY [place], [place] [address] (Wo rk) 08/19/2022 Office Visit Podiatry Tom Titus DPM [facility] DRIVE [place], [place] [address] (Wo rk) 09/08/2022 Office Visit Internal Medicine Janay Hay MD [facility] GENERAL INTERNAL MEDICINE [place], [place] [address] (Wo rk) 10/12/2059 Hospital Encounter Surgery Jim Hanley MD [facility] SPINE CENTER [place], [place] [address] (Wo rk) Scheduled Procedures Name [...] on filedocumented in this encounter Care Teams Fudge Candy Maker Relationship Specialty Start Date End Date Ernestina Nowak PA PCP - General Family Medicine 02/01/16 08/24/17 [address] [place] [address] documented as of this encounter
--- OUTSIDE RECORDS SUMMARY | 2022-07-12 00:53 | XMS_ITS | Encounter Summary ---
:1965 Author Organization [facility] [place] [address] Care Team Providers Name Role Phone Ernestina Nowak Primary Care Provider Encounter Details Date Type Department Care Team Description 05/21/2017 Telephone Pain Management at Diandra Juares, RN [facility] [place] [address] Social History Tobacco Use Types Packs/Day [...] Telephone Encounter - Diandra Murillo RN - 05/25/2017 8:46 AM EDT Patient called to check on the status of her medical cannabis card. Informed patient that note was send to Dr. Mcknight. Follow up appointment was made for patient with Shellie Echeverria APRN in mid July per Dr. Mcknight' note. Telephone Encounter - Diandra Murillo RN - 05/21/2017 12:21 PM EDT Patient called today stating she saw Dr. Mcknight recently. Wonders if her medical marijuana attestation has been mailed. Will forward message to Dr. Mcknight. documented in this encounter Plan of Treatment Upcoming Encounters Date Type Specialty Care Team Description 08/06/2022 Office Visit Plastic Surgery Peña Woodward MD [facility] PLASTIC SURGERY [place], [place] [address] ([place] ordonez) 08/19/2022 Office Visit Podiatry Tom Titus DPM [place], [place] [address] ([place]) 09/08/2022 Office Visit Internal Medicine Janay Hay MD [facility] GENERAL INTERNAL MEDICINE [place], [place] [address] (Wo rk) 10/12/2059 Hospital Encounter Surgery Jim Hanley MD [facility] SPINE CENTER [place], [place] [address] (Wo rk) Scheduled Procedures Name [...] filedocumented in this encounter Care Teams Charge Nurse Relationship Specialty Start Date End Date Ernestina oNwak PA PCP - General Family Medicine 02/01/16 08/24/17 [address] [place] [address] documented as of this encounter
--- OUTSIDE RECORDS SUMMARY | 2022-07-12 00:53 | XMS_ITS | Encounter Summary ---
:1965 Author Organization [facility] Address [address] [facility] [address] [place] [address] Care Team Providers Name Role Phone Unavailable Primary Care Provider Unavailable Reason for Visit Reason Comments Psoriasis Encounter Details Date Type Department Care Team Description 12/15/2017 Office Visit Dermatology at [facility]in Jacob Blair soriasis; Karen GANNON MD Dermatofibroma; [address] [facility] Admission for long-term opia te use; [place] [address] [address] [address] Skin exam for malignant neoplasm [phone] [facility] [place], [place] [address] Social History Tobacco Use Types [...] encounter Progress Notes Akosua Turner LPN - 12/15/2017 2:00 PM EST DERMATOLOGY ESTABLISHED PATIENT CLINIC NOTE Date of service: 12/15/2017 Emmanuelle Bynum : 1965 Provider: Jacob Blair MD PROBLEM: itchy lesion on back SKIN HISTORY: Psoriasis SK's HPI Emmanuelle Bynum is a 52 y.o. year old female with a history of a lesion on her back that has beenitchy and she scratches at it. She has psoriasis which is doing well but she needs refills of her topical medications. She has one persistent area on the occiput that continues to be troublesome. Other areas have cleared. ADR: Allergies Allergen Reactions ??? Clonidine (Pf) [...] Inhale into the lungs as needed. ??? clobetasol (TEMOVATE) 0.05 % Solution Apply [...] Allergic Rhinitis ??? fluticasone (VERAMYST) 27.5 mcg/actuation [place], Suspension 2 sprays by Nasal route daily. [...] ??? Leukocytosis D72.829 ??? Asthma J45.909 ??? Diabetes mellitus E11.9 ??? Hypothyroid E03.9 ??? Depression F32.9 ??? [...] of age-related cataract of both eyes H25.813 ROS General: feeling well. Oriented X 3. Skin: denies other skin complaints EXAM General: NAD, pleasant, cooperative Skin: Patient was asked to disrobe to the level of their comfort. Examination of skin from the waistup was performed. This includes examination of the skin of the face, ears, neck, chest, axillae, left and right upper extremities, hands, back, and abdomen. Significant skin findings: A. Occipital scalp posterior (in the crease) - 5 - 6 mm area well defined erythematous plaque with white scale B. Right upper back - firm papule, centrally raised and sclerotic, with peripheral hyperpigmentationand dimpling with lateral pressure. Not tender. No other lesions noted ASSESSMENT/PLAN: A. Psoriasis only active area appears to be on the occiput -I discussed this condition with the patient and explored therapeutic options. She uses Taclonex giana 1-2 times a week and when flares occur she uses clobetasol foam for a few days(not over 2 weeks) then back to maintenance with taclonex. We discussed other options to gain bettercontrol I recommended this be injected with Kenalog and she agreed. Kenalog 5 mg/mL injected intralesionally, total 0.5 mL. Discussed indication for this procedure and potential side effects including ulceration and skin atrophy. She will avoid scratching the site. B. Dermatofibroma - right upper back Counseled: Dermatofibromas, benign/non-cancerous growth of dermal dendritic histiocyte cells, commonly arise at site of a minor injury and etiology is unknown, prognosis, treatment options if recurs and/or is symptomatic. Return to clinic if recurs and patient would like removed. Answered all questions. Monitor for change or symptoms RTC - 6 Months, sooner if needed NOTE- pt requested a referral for cosmetic considerations and we suggested she call Dr Freeman for an opinion about what, if anything, she might benefit from. I am documenting this encounter acting as the scribe for and in the presence of Dr. Blair.: AKOSUA TURNER LPN I performed the above scribed service and agree with the accuracy of the documentation in this encounter. Jacob Blair MD Section of Dermatology [facility] documented in this encounter Plan of Treatment Upcoming Encounters Date Type Specialty Care Team Description 08/06/2022 Office Visit Plastic Surgery Peña Woodward MD [facility] PLASTIC SURGERY [place] [phone] (Wo rk) 08/19/2022 Office Visit Podiatry Tom Titus DPM [place], [place] [address] (Wo rk) 09/08/2022 Office Visit Internal Medicine Janay Hay MD [facility] GENERAL INTERNAL MEDICINE [place], [place] [address] (Wo rk) 10/12/2059 Hospital Encounter Surgery Jim Hanley MD [facility] SPINE [facility] [place] [phone] (Wo rk) Scheduled Procedures Name Priority Associated [...] Procedure Name Priority Date/Time Associated Comments Diagnosis RAPID DRUG SCREEN, Routine 12/15/2017 3:15 PM Admission for Re sults for this COMPLIANCE MONITORING EST long-term opiate pr ocedure are in use the results section. DRUGS OF ABUSE Routine 12/15/2017 3:15 PM Admission for COMPLIANCE MONITORING EST long-term opiate PANEL, URINE use TARGETED OPIOID Routine 12/15/2017 3:15 PM Admission for Resul ts for this PANEL, COMPLIANCE EST long-term opiate proced ure are in MONITORING use the results section. THC (MARIJUANA), Routine 12/15/2017 3:15 PM Resul ts for this URINE, CONFIRMATION EST procedur e are in the results section. BENZODIAZEPINE, URINE Routine 12/15/2017 3:15 PM Results for this CONFIRMATION EST procedure are i n the results section. documented in this encounter Results THC (Marijuana), Urine Confirmation (12/15/2017 3:15 PM EST) Component Value Ref Test Analysis Performed At [facility] Range Method Time Signature U THC Conf [place] Test ? Result ?Flag ??Unit ?? RefValue [facility] Carboxy-THC Confirmation, U HO SPITAL ??Carboxy-THC- by GC/MS ?213 ? ng/mL ??Cutoff: 3.0 LABORATORY ??Carboxy-THC Interpretation ? Positive. ? ADDITIONAL INFORMATION ------ ?This report is intended for use in clinical monitoring and ?management of patients. ??It is not intended for use i n ?employment-related testing. ?This test was developed and its performance characteri stics ?determined by [facility] in a manner consistent with CLIA ?requirements. This test has not been cleared or approv ed by ?the U.S. Food and Drug Administration. ?Test Performed by: ?[facility] ?[address] [place] [address] Specimen Anatomical Collection Method Collection Time Receive d Time (Source) Location / / Volume Laterality Urine specimen 12/15/2017 3:15 PM 018 (specimen) EST 10:59 AM EST Resulting Agency Comment Spec In Lab Aracelis Mcknight MD URINE ORDERABLES Performing Organization Address City/State/ZIP Code Phon e Number [place] [address] Benzodiazepine, Urine Confirmation (12/15/2017 3:15 PM EST) Component Value Ref Test Analysis Performed At [facility] Range Method Time Signature U Benzo Conf [place] Test ?Result ? Flag ??Unit ?? RefValue [facility] ??Nordiazepam-by GC/MS ?Negative ? ng/mL ??Cutoff: 100 LABORATORY ??Oxazepam-by GC/MS ? Negative ? ng/mL ??Cutoff: 100 ?Testing performed at a x2 dilution; limit of quantitat ion ?is elevated. ??Lorazepam-by GC/MS ?Negative ? ng/mL ??Cutoff: 100 ??Temazepam-by GC/MS ?Negative ? ng/mL ??Cutoff: 100 ??NJ-Mrjgg-Vsfbkxgkjv-by GC /MS ?Negative ? ng/mL ??Cutoff: 100 ??4-XJ-Kzkfukfdsx-by GC/MS ?Negative ? ng/mL ??Cutoff: 100 ??Alpha FI-Lvjrtxhrcs-kn GC /MS ?178 ?ng/mL ??Cutoff: 100 ??5-ID-Zxmquklhaohhf-by GC/ MS ? Negative ? ng/mL ??Cutoff: 50 ??Alpha AW-Ahavwiozj-dv GC/ MS ? Negative ? ng/mL ??Cutoff: 100 ??Benzodiazepines Interpretation ?Positive. ? ADDITIONAL INFORMATION ------ ?This report is intended for use in clinical monitoring and ?management of patients. ??It is not intended for use i n ?employment-related testing. ?This test was developed and its performance characteri stics ?determined by [facility] in a manner consistent with CLIA ?requirements. This test has not been cleared or approv ed by ?the U.S. Food and Drug Administration. ?Test Performed by: ?[facility] ?[address] [place] [address] Specimen Anatomical Collection Method Collection Time Receive d Time (Source) Location / / Volume Laterality Urine specimen 12/15/2017 3:15 PM 018 9:45 (specimen) EST AM EST Resulting Agency Comment Spec In Lab Aracelis Mcknight MD URINE ORDERABLES Performing Organization Address City/State/ZIP Code [place] [address] Targeted Opioid Panel, Compliance Monitoring (12/15/2017 3:15 PM EST) Component Value Ref Test Analysis Performed At [facility] Method Time Signature Targeted [place] Opioid Test ?Result ? Flag ??Unit ?? RefValue [facility] [place] Targeted Opioid Screen, U HOSP ITAL ??Codeine ? Not Detected ? ng/mL ??Cutoff: 25 LABORATORY ?Tylenol 3 ??Fxynltn-2-zjoy-glucuronid e ?Not Detected ? ng/mL ??Cutoff: 100 ?Metabolite of codeine ??Morphine ?Not Detected ? ng/mL ??Cutoff: 25 ?Bebe, Kassy, MS Contin; Also a minor metabolite (10 %) of ?codeine and can be seen in low concentrations (<2,000 ?ng/mL) with poppy seed ingestion. ??Khvqrurv-8-nexk-glucuroni de ? Not Detected ? ng/mL ??Cutoff: 100 ?Metabolite of morphine ??6-monoacetylmorphine ?Not Detected ? ng/mL ??Cutoff: 25 ?Metabolite of heroin ??Hydrocodone ? Not Detected ? ng/mL ??Cutoff: 25 ?Lortab, Channing, Vicodin; Also a very minor metabolite o f ?codeine and impurity (<1%) of oxycodone. ??Norhydrocodone ?Not Detected ? ng/mL ??Cutoff: 25 ?Metabolite of hydrocodone ??Dihydrocodeine ?Not Detected ? ng/mL ??Cutoff: 25 ?Metabolite of hydrocodone ??Hydromorphone ? Not Detected ? ng/mL ??Cutoff: 25 ?Dilaudid, Exalgo; Also a metabolite of hydrocodone and a ?minor (<5%) metabolite of morphine. ??Cmsiwkcsjhrbf-1-qyyv-gluc uronide ?Not Detected ? ng/mL ??Cutoff: 100 ?Metabolite of hydromorphone ??Oxycodone ? Not Detected ? ng/mL ??Cutoff: 25 ?Endocet, Percocet, Oxycontin ??Noroxycodone ?Not Detected ? ng/mL ??Cutoff: 25 ?Metabolite of oxycodone ??Oxymorphone ? Not Detected ? ng/mL ??Cutoff: 25 ?Numorphan, Opana; Also a metabolite of oxycodone. ??Zfjgdhdgxsq-7-eigx-glucur onide ?Not Detected ? ng/mL ??Cutoff: 100 ?Metabolite of oxymorphone ??Noroxymorphone ?Not Detected ? ng/mL ??Cutoff: 25 ?Metabolite of oxymorphone ??Fentanyl ?Not Detected ? ng/mL ??Cutoff: 2 ?Actiq, Duragesic, Fentora ??Norfentanyl ? Not Detected ? ng/mL ??Cutoff: 2 ?Metabolite of fentanyl ??Meperidine ?Not Detected ? ng/mL ??Cutoff: 25 ?Demerol ??Normeperidine ? Not Detected ? ng/mL ??Cutoff: 25 ?Metabolite of meperidine ??Naloxone ?Not Detected ? ng/mL ??Cutoff: 25 ?Narcan ??Lyqvvjje-6-omuk-glucuroni de ? Not Detected ? ng/mL ??Cutoff: 100 ?Metabolite of naloxone ??Methadone ? Not Detected ? ng/mL ??Cutoff: 25 ?Dolophine ??EDDP ?Not Detected ? ng/mL ??Cutoff: 25 ?Metabolite of methadone ??Propoxyphene ?Not Detected ? ng/mL ??Cutoff: 25 ?Darvon, Darvocet ??Norpropoxyphene ? Not Detected ? ng/mL ??Cutoff: 25 ?Metabolite of propoxyphene ??Tramadol ?Not Detected ? ng/mL ??Cutoff: 25 ?Tradol, Ultram, Ultracet ??O-desmethyltramadol ? Not Detected ? ng/mL ??Cutoff: 25 ?Metabolite of tramadol ??Tapentadol ?Not Detected ? ng/mL ??Cutoff: 25 ?Nucynta ??N-desmethyltapentadol ? Not Detected ? ng/mL ??Cutoff: 50 ?Metabolite of tapentadol ??Ufntjriklv-mglz-vwligitmu de ? Not Detected ? ng/mL ??Cutoff: 100 ?Metabolite of tapentadol ??Buprenorphine ? Not Detected ? ng/mL ??Cutoff: 5 ?Buprenex, Suboxone ??Norbuprenorphine ?Not Detected ? ng/mL ??Cutoff: 5 ?Metabolite of buprenorphine ??Norbuprenorphine glucuron manuel ?Not Detected ? ng/mL ??Cutoff: 20 ?Metabolite of buprenorphine ??Opioid Interpretation ? SEE COMMENT S ?No opioids were detected. The absence of expected drug (s) ?and/or drug metabolite(s) may indicate non-compliance, ?altered pharmacokinetics, inappropriate timing of spec imen ?collection relative to drug administration, ?diluted/adulterated urine, or limitations of testing. ? ADDITIONAL INFORMATION ------ ?This test was developed and its performance characteri stics ?determined by [facility] in a manner consistent with CLIA ?requirements. This test has not been cleared or approv ed by ?the U.S. Food and Drug Administration. ?Test Performed by: ?[facility] ?[address] [place] [address] Specimen Anatomical Collection Method Collection Time Receive d Time (Source) Location / / Volume Laterality Urine specimen 12/15/2017 3:15 PM 018 4:30 (specimen) EST PM EST Resulting Agency Comment Spec In Lab Aracelis Mcknight MD URINE ORDERABLES Performing Organization Address City/State/[place] [address] (ABNORMAL) Rapid Drug Screen, Compliance Monitoring (12/15/2017 3:15 PM EST) [facility] Method Time Signature U Barbiturates None None [place] Screen Detected Detected [facility] Comment: The barbiturate screen detects barbitura zoya at concentrations >200 ng/mL. Note: Not all barbiturates cross-react equally with antibody used in this screen. A ? Presumptive Positive? result indicates that the screening result was positive but has not yet been confirmed by a highly-specific method. As with any screen, occasional false positive re sults from cross-reacting substances may occur. Not for Medico-Legal Purposes. U Benzodiazepines Screen Presumptive Pos (A) None Detected [facility] Comment: The benzodiazepines screen detects benzo diazepines at concentrations >100 ng/mL. Not all benzodiazepines cross-morelia ct equally with antibody used in this screen. Due to the low dosage of clonaze yousif, false negatives may be obtained due to low concentration of clonazepam m etabolites. A ? Presumptive Positive? result indicates that the screening result was positive but has not yet been confirmed by a highly-specific method. As with any screen, occasional false positive re sults from cross-reacting substances may occur. Not for Medico-Legal Purposes. U Cocaine Screen None Detected None Detected [facility] Comment: The cocaine metabolites screen detects b enzoylecgonine (Cocaine Metabolite) at concentrations >150 ng/mL. A ? Presumptive Positive? result indicates that the screening result was positive but has not yet been confirmed by a highly-specific method. As with any screen, occasional false positive re sults from cross-reacting substances may occur. Not for Medico-Legal Purposes. U Cannabinoid Screen Presumptive Pos (A) None Detected [facility] Comment: The marijuana metabolites screen detects the THC metabolite (47-qgt-4-carboxy-delta 9-THC) at concen trations >20 ng/mL. A ? Presumptive Positive? result indicates that the screening result was positive but has not yet been confirmed by a highly-specific method. As with any screen, occasional false positive re sults from cross-reacting substances may occur. Not for Medico-Legal Purposes. U Tricyclics Screen None Detected None Detected [facility] Comment: The tricyclics screen detects tricyclic antidepressants at concentrations >150 ng/mL. Not all tricyclics cross-react eq ually with the antibody used in this screen. A ? Presumptive Positive? result indicates that the screening result was positive but has not yet been confirmed by a highly-specific method. As with any screen, occasional false positive re sults from cross-reacting substances may occur. Not for Medico-Legal Purposes. U Ethanol Screen None Detected None Detected [facility] Comment: This urine ethanol assay detect s ethanol at concentrations >/= 100 mg/L. U Amphetamines Screen None Detected None Detected [facility] Comment: The amphetamine screen detects d-ampheta mine and d-methamphetamine at concentrations >300 ng/mL. A ? Presumptive Positive? result indicates that the screening result was positive but has not yet been confirmed by a highly-specific method. As with any screen, occasional false positive re sults from cross-reacting substances may occur. Not for Medico-Legal Purposes. U Adulterants Screen None Detected None Detected Brooke GUO [facility] Comment: No adulteration or dilution of this urin e sample was detected. All urine samples submitted for urine drugs of abu se analysis are tested for creatinine concentration, pH, and for the presence of oxidants, nitrites, and chromate. Specimen Anatomical Collection Method Collection Time Receive d Time (Source) Location / / Volume Laterality Urine specimen 12/15/2017 3:15 PM 018 3:37 (specimen) EST PM EST Resulting Agency Comment Spec In Lab Aracleis Mcknight MD URINE ORDERABLES Performing Organization Address City/State/ZIP Code Phon e Number [place] [phone] documented in this encounter Visit Diagnoses Diagnosis Psoriasis Other psoriasis Dermatofibroma Benign neoplasm of skin, site unspecifie d Admission for long-term opiate use Encounter for long-term (current) use of other medications Skin exam for malignant neoplasm Screening for malignant neoplasm of the skin documented in this encounter Administered Medications Inactive Administered Medications - up to 3 most recent administrations Medication Order MAR Action Action Date Dose Rate Site triamcinolone acetonide Given 12/15/2017 2:12 PM 5 mg 20-Other (document (KENALOG) injection 5 mg EST in comment sect ion) 5 mg, Intra-Lesional, ONCE, 1 dose, On Thu12/15/17 at 1430, Routine documented in this encounter
--- OUTSIDE RECORDS SUMMARY | 2022-07-12 00:53 | XMS_ITS | Encounter Summary ---
:1965 Author Organization [facility] Address [facility] [place] [address] Care Team Providers Name Role Phone None Primary Care Provider Unavailable Encounter Details Date Type Department Care Team Description 01/10/2018 Notes Only Pain Management at Jason Pierson MD [facility] [place] [address] PAIN CLINIC [phone] [place] [phone] (Wo rk) Social History Tobacco Use Types [...] encounter Progress Notes Jason Mcknight MD - 01/10/2018 5:36 PM EDT Urine toxicology results are consistent with medication prescribed and show no aberrancies. JASON MCKNIGHT MD documented in this encounter Plan of Treatment Upcoming Encounters Date Type Specialty Care Team Description 08/06/2022 Office Visit Plastic Surgery Peña Woodward MD [facility] PLASTIC SURGERY [place] [phone] ( josé luis) 08/19/2022 Office Visit Podiatry Tom Titus DPM [place], [place] [address] (Wo rk) 09/08/2022 Office Visit Internal Medicine Janay Hay MD [facility] GENERAL INTERNAL MEDICINE [place], [place] [address] (Flores ordonez) 10/12/2059 Hospital Encounter Surgery Jim Hanley MD [facility] SPINE CENTER [place], [place] [address] (Flores ordonez) Scheduled Procedures Name [...] on filedocumented in this encounter Care Teams Safety Intern Relationship Specialty Start Date End Date None PCP - General 12/24/17 01/25/18 None documented as of this encounter
--- OUTSIDE RECORDS SUMMARY | 2022-07-12 00:53 | XMS_ITS | Encounter Summary ---
:1965 Author Organization [place] [address] Care Team Providers Name Role Phone Ernestina Nowak Primary Care Provider Encounter Details Date Type Department Care Team Description 04/15/2017 Hospital Encounter Laboratory [facility] Kevin castañ[place] [address] Social History Tobacco Use Types Packs/Day [...] 2 sprays by Nasal 0 27.5 mcg/actuation route daily. [place], Indications: Allergic SuspensionIndications: Rhinitis allergic rhinitis betamethasone-calcipot Apply 3 times a week 120 g 2 05/201712/15/2017 riene (TACLONEX SCALP) to scalp for psoriasis 0.005-0.064 % on weekdays. SuspensionIndications: Psoriasis Clobetasol-Emollient Apply twice daily to 200 g 3 02/1612/15/2017 0.05 % Foam scalp psoriasis on weekends as needed dispense 3 bottles [address] 1 drop into both 60 vial 11 12/18/2016 10/20/2017 (RESTASIS) 0.05 % eyes every 12 hours. DropperetteIndications : Bilateral dry eyes levothyroxine Take 300 mcg by mouth 0 04/20/2018 (SYNTHROID) 150 mcg daily. Indications: TabletIndications: added to = 325 mcg added to = 325 mcg daily daily levothyroxine Take 25 mcg by mouth 2 02/28/2016 0 04/20/2018 (SYNTHROID) 25 mcg daily. Tablet oxybutynin (DITROPAN) Reported on 02/10/2017 3 02/0908/25/2017 5 mg Tablet pravastatin TK 1 T PO QD 5 04/18/2016 04/20/2018 (PRAVACHOL) 20 mg Tablet Estradiol 0.1 mg/24 hr once a week. 12 03/14/2016 08/25/2017 Patch Weekly ibuprofen TK ONE TABLET PO 4x 3 03/17/201603/24 (ADVIL;MOTRIN) 800 mg daily prn Tablet fluconazole (DIFLUCAN) TK ONE TABLET PO QD 5 02/201608/25/2017 200 mg Tablet PRN THEN SPACE TO A GOAL OF Q 4-7 DAYS losartan (COZAAR) 50 TK ONE TABLET PO QD 11 201504/20/2018 mg Tablet carisoprodol (SOMA) TK 1 T PO TID PRN 1 6 08/03/2018 350 mg Tablet BD ALCOHOL SWABS Pads, USE DIRECTED QID 3 03/201608/25/2017 Medicated NOVOTWIST 32 gauge x TEST 5 TIMES PER DAY 3 03/1708/25/201710/16 Needle IPRATROPIUM/ALBUTEROL Inhale into the lungs 0 08/25/2017 SULFATE (COMBIVENT 3 times daily. RESPIMAT INHL) Reported on 02/10/2017 ALBUTEROL SULFATE Inhale into the lungs 0 04/20/2018 (PROAIR HFA INHL) as needed. fluticasone-salmeterol Inhale 1 puff into the 0 08/25/2017 (ADVAIR) 500-50 lungs every 12 hours. mcg/dose Disk with Device clobetasol (TEMOVATE) Apply topically 2 50 mL 1 016 12/15/2017 0.05 % times a day for worse SolutionIndications: areas of scalp Psoriasis psoriasis for 2 weeks only tiotropium (SPIRIVA) Inhale 18 mcg into the 0 03/24/2018 18 mcg Capsule, lungs daily as needed. w/Inhalation Device gabapentin (NEURONTIN) Take 900 mg in the 150 tablet 3 10/1607/15/2019 600 mg morning and 900 mg at TabletIndications: noontime. Take 1200 mg Headache(784.0) at bedtime. desonide (DESOWEN) Apply twice daily with 30 g 1 07/1008/25/2017 0.05 % Cream ketoconazole cream to corners of mouth as needed ketoconazole (NIZORAL) Apply twice daily with 30 g 1 0 07/10/2015 08/25/2017 2 % Cream Desonide cream to corners of mouth as needed. cetirizine (ZYRTEC) 10 Take 1 tablet by mouth 60 tablet 3 0 03/06/2015 08/25/2017 mg TabletIndications: daily as needed for Cervical radicular Allergies. As needed pain for itching. montelukast Take 10 mg by mouth 0 03/12 (SINGULAIR) 10 mg nightly. Indications: TabletIndications: Allergic Rhinitis allergic rhinitis promethazine Take 25 mg by mouth 0 08/2021 (PHENERGAN) 25 mg every 6 hours as tablet needed. ALPRAZolam (XANAX) 1 Take 1 mg by mouth 3 0 03/14/2022 mg tablet times daily as needed. FLUoxetine (PROZAC) 40 Take 80 mg by mouth 0 07/04/2020 mg capsule daily. INSULIN DETEMIR Inject 74 Units 0 08/12 (LEVEMIR FLEXPEN SUBQ) subcutaneously 2 times daily. Reported on 02/10/2017 ARIPiprazole (Abilify) Take 30 mg by mouth 0 03/14/2022 30 mg Tablet daily. esomeprazole (NEXIUM) Take 40 mg by mouth 2 0 09/201110/29/2018 40 mg capsule times daily. documented as of this encounter Plan of Treatment Upcoming Encounters Date Type Specialty Care Team Description 08/06/2022 Office Visit Plastic Surgery Peña Woodward MD [facility] PLASTIC SURGERY [place], [place] [address] ( rk) 08/19/2022 Office Visit Podiatry Tom Titus DPM [place], [place] [address] (Wo rk) 09/08/2022 Office Visit Internal Medicine Janay Hay MD [facility] GENER[facility] INTERNAL MEDICINE [place], [place] [address] (Wo rk) 10/12/2059 Hospital Encounter Surgery Jim Hanley MD [facility] SPINE [facility] [place], [place] [address] (Wo rk) Scheduled Procedures Name [...] on filedocumented in this encounter Care Teams Roller Print Tender Relationship Specialty Start Date End Date Ernetsina Nowak PA PCP - General Family Medicine 02/01/16 08/24/[address] [place] [id number] documented as of this encounter
--- OUTSIDE RECORDS SUMMARY | 2022-07-12 00:53 | XMS_ITS | Encounter Summary ---
:1965 Author Organization [facility] [place] [address] Care Team Providers Name Role Phone Chandler Bay Primary Care Provider Reason for Visit Reason Comments Medication Management Encounter Details Date Type Department Care Team Description 04/20/2018 Clinical Support Internal Medicine Ninfa Cardoza edication at [facility], [facility] [place] [id number] Social History Tobacco Use Types Packs/Day Years [...] of this encounter Progress Notes Ninfa Alba RPH - 04/20/2018 3:00 PM EDT Clinical Pharmacist Consultation; Ninfa Alba RPH Visit Type: [id number] Comprehensive Medication Management (CMM) Appointment Summary of Recommendations & Next Steps: The following are my recommendations from CMM visit on 04/20/18. Please see full note below for moredetails and complete visit summary. 1. Recommend refills for Spiriva (LAMA), Breo Ellipta (ICS +LABA), Freestyle Lite Test strips, and regular pen needles for Lantus and Novotwist pen needles for Humalog Luxura per pt request to avoid gaps in therapy 2. Recommend switch to metformin XL 500 mg once daily to increase as tolerated every ~2 weeks 3. Recommend Humalog 3 units before meals as unsure of sliding scale and reports base dose was at least 3 units 4. Recommend referral to CDE to establish new sliding scale for pt 5. Recommend rosuvastatin 20 mg 1 tab daily as covered by insurance to decrease CVD risk 6. Recommend Tdap, PPSV23 vaccines, foot exam at next provider follow up, referral for eye exam if pt has not had within 1 year 7. Recommend Lenka 8. Recommend DC carisoprodol to decrease duplicate therapy and polypharmacy and have pt continue useof methocarbamol 9. Recommend decrease hydrochlorothiazide dose to 25 mg daily as additional benefit of 50 mg strength unknown 10. Counseled on montelukast dose is 1 tab daily and taking 2 tabs will not necessarily provide additional benefit and may increase the risk of OLIVIA/SE 11. Provided counseling on the following DM topics: [ x ] DM Pathophys & Management (lifestyle/meds) Counseled to take glipizide prior to meals to decrease hypoglycemia risk and Lantus QAM to improve adherence [ x ] SMBG [ x ] Storage/Handling/Admin of insulin Reviewed insulin administration sites, danger os reusing needles, storage of current insulin pen canbe at room temp x 28 days 12. Provided the following counseling on chantix dosing and counseling on decreasing urges with strategies such as keeping cigarettes out of sight and not buying new packs 13. Updated med list by: ?? Removing duplicate albuterol inhaler ?? Removing losartan and pravastatin as pt is no longer taking ?? Adding venlafaxine as prescribed by Dr. Cuenca at [facility] per pt 14. Will send updated med list including med indications per request Subjective: Patient ID: Emmanuelle Bynum is a [...] assessed for safety considerations. Goals as of 04/20/2018 at 2:42 PM None Patient brought medications to appointment? no- does not bring to appts because then will lose med bottles Allergies and Drug intolerance: Allergies Allergen Reactions ??? Clonidine (Pf) Other (See Comments) stenens johnsons syndrome ??? Codeine Itching and Nausea Only ??? Methadone Nausea And Vomiting Medication Reconciliation Discrepancies (compared to [facility] med list) - Uses Albuterol 2-3 x daily for athsma and copd; Triggers are hair, dander, dust, grass, trees, allergens in the environment, smoke - Denies benefit from Breo Ellipta - Requests refills for Breo Ellipta and Spiriva; says affordable through insurance - Was on combivent but not using regularly and appears no longer prescribed - Reports taking 2 Singulair tabs daily despite max dose of 10 mg as prescried - Reports Xanax just decreased to TID by psychiatrist Dr. Crane at [facility] whoalso prescribes abilify, fluoxetine - Restarted chantix and feels it is helping likes 1 mg just started last - Was alternating use of carisoprodol and methocarbamol prescribed by prior PCP Uses robaxin for more intense pain >7 and for migraines Uses soma for pain of 7 or less Uses muscle relaxant everyday but maybe every other day will use robaxin Soma makes her head feel funny - Used naratriptan last night and uses 4 nights/week; Takes up to 2 tabs a day for migraine and dizziness; Stopped following with neurology when provider was switched so has used more since stopped Botox - Unable ot trial DC of PPI in the past and then started chronic NSAIDs so needed increased PPI dose - Takes ibuprofen 800 mg daily - Estradiol for menopause sx cant tolerate patch due to skin irritation - Venlafaxine for hot flashes prescribed by dr. Cuneca at [facility] says lowest dose once daily 25 mg once daily; Added to med list - Takes levothyroxine 300 mcg and 325 mcg every other day using 150 mcg and 25 mcg tabs - Has not taken losartan 50 mg for some time so removed from med list as pt believes it was stopped when pt self-dcd all her meds ~ 6 months ago - No longer taking pravastatin; removed from med list Antidiabetic Regimen - Skips metformin when not eating meals and takes glipizide regardless of meals - Requires Novotwist needles for humalog luxura and regular pen needles for lantus - Injects insulin into outside of legs and keeps in fridge - Injects Lantus 40 units at bedtime but admits forgets sometimes - Has Freestyle Lite meter but requires test stirps refill - Unsure of sliding scale for Humalog so wondering what set dose to start with - Reports gained 30 lbs this winter, also was on a lot of steroids SMBG SMBG once daily before every meal No log because meter stores internally Ranges [phone] No meter today But agreeable to bring to follow up Are you experiencing any side effects from your medications? no Reconciled Medication List: Medications 04/20/18 4067 Medication Sig Taking? levothyroxine (SYNTHROID) 150 mcg Tablet Take 2 tablets by mouth daily. Indications: added to = 325 mcg daily Yes levothyroxine (SYNTHROID) 25 mcg Tablet Take 1 tablet by mouth daily. Yes valACYclovir (VALTREX) 1 gram Tablet Take 1 tablet by mouth 2 times daily. Yes venlafaxine (EFFEXOR) 25 mg Tablet Take 25 mg by mouth daily. Yes IBU 800 mg Tablet TAKE 1 TABLET BY MOUTH EVERY 8 HOURS NEEDED PAIN Yes BREO ELLIPTA 200-25 mcg/dose Disk with Device Inhale 1 puff into the lungs daily. Yes tiotropium (SPIRIVA) 18 mcg Capsule, w/Inhalation Device Inhale 1 capsule into the lungs daily. Yes montelukast (SINGULAIR) 10 mg Tablet Take 1 tablet by mouth nightly. Indications: Allergic Rhinitis Yes varenicline (CHANTIX) 1 mg Tablet Take 1 tablet by mouth 2 times daily. Yes VITAMIN D 1,000 unit Tablet Take 2 tablets by mouth daily. Yes methocarbamol (ROBAXIN) 750 mg Tablet Take 1 tablet by mouth 4 times daily. Yes ondansetron (ZOFRAN) 4 mg Tablet Take 1 tablet by mouth every 8 hours as needed for Nausea. Yes meclizine (ANTIVERT) 25 mg Tablet Take 1 tablet by mouth 3 times daily as needed. Yes naratriptan (AMERGE) 2.5 mg Tablet Take one (1) tablet at onset of headache; if returns or does not resolve, may repeat after 4 hours; do not exceed five (5) mg in 24 hours. Yes betamethasone-calcipotriene (TACLONEX SCALP) 0.005-0.064 % Suspension Apply 3 times a week to scalp for psoriasis on weekdays. Yes cycloSPORINE (RESTASIS) 0.05 % Dropperette Place 1 drop into both eyes every 12 hours. Yes estradiol (ESTRACE) 1 mg Tablet Take 1 mg by mouth 2 times daily. 2 tablets in the morning, 1 tabletnightly Yes hydroCHLOROthiazide (HYDRODIURIL) 50 mg Tablet Take 50 mg by mouth daily. Yes carisoprodol (SOMA) 350 mg Tablet TK 1 T PO TID PRN Yes gabapentin (NEURONTIN) 600 mg Tablet Take 900 mg in the morning and 900 mg at noontime. Take 1200 mgat bedtime. Yes fluticasone (VERAMYST) 27.5 mcg/actuation [place], Suspension 2 sprays by Nasal route daily. [...] mg by mouth 2 times daily. Yes amLODIPine [...] week. Patient not taking: Reported on 04/20/2018 Clobetasol-Emollient 0.05 % Foam Apply twice daily to worse scalp psoriasis on weekends-only as needed dispense 3 bottles please nystatin (MYCOSTATIN) 100,000 unit/mL Suspension Take by mouth 4 times daily. Drug Interactions: Included for reference, [...] 1. Adherence/Med management Assessment: - Appears pt misses doses occasionally However pt admits to self-DC'ing all meds ~6 months ago when she was overwhelmed for this reason would benefit from encouragement and reinforcement of the importance of med adherence; currently admits not taking losartan, pravastatin, combivent - Pt aware of med names, strengths, directions, and most indications, but interested in deeper understanding of all med indications. - Additional concern for pt who appears to have many barriers to med management is polypharmacy. Would benefit from simplifying med list to only the most critical meds for 52 y.o. female with multiple comorbidities: 1. Med list duplicates: appears pt has duplicate albuterol inhalers on med list which could be removed to reconcile list 2. Duplicate therapy: ?? Two muscle relaxants, methocarbamol and carisoprodol. Pt reports never using together However admits OLIVIA from carisoprodol therefore would consider DC carisoprodol and have pt use lower dose of methocarbamol as pt reports uses methocarbamol only for pain >7 however requires use of muscle relaxant daily ?? Inhaler therapy pt appears unclear of which inhalers to use when and would benefit form clarification as now appears pt is to be on Breo Ellipta + Spiriva + montelukast + albuterol for rescue; wouldbenefit form development of asthma/copd action plan ?? Has both vit D 50,000 IU and 1,000 IU on med list likely because vit D level returned below goal range when checked on 03/24/18 (23) therefore pt is indicated for 6-8 weeks of once weekly high dose vit and then can resume dose of vit D 1,000 IU so will leave both on med list at this time 3. PPI therapy risk of chronic complications: Appears to be started on PPI (esomeprazole) for chronic NSAID use; Would benefit from counseling to minimize heartburn triggers However if pt is to continue chronic high dose NSAID therapy (ibuprofen 800 mg) pt is a candidate for skilled nursing PPI therapy despite alf PPI therapy being associated with increased risks of OLIVIA including malabsorption and increased risk of GI infections. 4. Dosing: ?? High pillburden from taking 2 tabs of montelukast daily which is above the approved max dose of this medicine. May consider counseling pt to take montelukast 1 pill daily as prescribed and as recommended to also decrease pill burden ?? On max dose of hydrochlorothiazide However when studied doses of 50 mg did not show significant reduction in BP over the 25 mg dose and caused a greater decline in serum K+ therefore may consider decrease dose to 25 mg daily to decrease the risk of OLIVIA - Reason for nonadherence identified is pt unsure where to ask for refills and currently requesting refills for Spiriva (LAMA), Breo Ellipta (ICS +LABA), Freestyle Lite Test strips, and regular pen needles for Lantus and Novotwist pen needles for Humalog Luxura - Barriers to med adherence include high pill burden which could contribute to pt feeling overwhelmed with med management Recommendation: - Discussed the importance of med adherence and the risks of non-adherence in particular reviewed indications of each med individually - Recommend refills for Spiriva (LAMA), Breo Ellipta (ICS +LABA), Freestyle Lite Test strips, and regular pen needles for Lantus and Novotwist pen needles for Humalog Luxura per pt request to avoid gaps in therapy - Recommend DC carisoprodol to decrease duplicate therapy and polypharmacy and have pt continue use of methocarbamol - Recommend decrease hydrochlorothiazide dose to 25 mg daily as additional benefit of 50 mg strengthunknown - Counseled on montelukast dose is 1 tab daily and taking 2 tabs will not necessarily provide additional benefit and may increase the risk of OLIVIA/SE - Recommend asthma action plan to assist pt with inhaler management and approve adherence; can assist pt with construction at followup - Updated med list by: ?? Removing duplicate albuterol inhaler ?? Removing losartan and pravastatin as pt is no longer taking ?? Adding venlafaxine as prescribed by Dr. Cuenca at [facility] per pt - Will send updated med list including med indications per request 2. DM: Goals of Therapy: - ADA guidelines recommend an A1c goal of <7% for most adult patients to decrease the risk of micro/macrovascular complications Assessment: - Last A1c above goal for 52 y.o. female on Lantus 40 units, Humalog unclear dosing, metformin with unclear adherence, and glipizide - Adherence to DM regimen questionable for the following reasons: ?? Falls asleep prior to Lantus dose ?? Unclear of meal time insulin (Humalog) sliding scale as believes it was changed recently so has skipped doses However believes base dose was 3 units before meals to adjust up prn based on pre-meal BG ?? Skips metformin dose if not eating However this can increase the risk of returning GI OLIVIA/SE frominconsistent metformin adherence therefore would benefit form counseling to take metformin regularlyand to decrease SE and necessity to take with food consider Rx for metformin XL 500 mg once daily chuy increased to max tolerated dose every 2 weeks ?? Unaware of glipizide dosing preferably beforre meals to decrease risk of hypoglycemia post meal - On appropriate DM regimen with basal coverage using Lantus and metformin and postprandial coverageusing Humlaog and glipizide However questionable adherence likely cause of elevated A1c Additionallypt reports was on steroids which is likely why pt was indicated for basal/bolus insulin regimen. Would benefit from continued monitoring to determine if antidiabetic regimen could be reduced if pt ableto remain off of steroid therapy - SMBG remains elevated per pt report but would benefit from review to determine trends and adjust insulin doses - Denies s/sx of hypo/hyperglycemia however guessing Humalog doses may increase pt???s risks of hypoglycemia since pt unsure of sliding scale; for that reason would start with low dose until sliding scale can be determined or a new scale can be made for pt - FLP last checked 03/2018 - According to ADA guidelines pt is indicated for mod-high statin with LDL >70mg/dL, age > 40 yo, and without ASCVD as defined as CHD, cerebrovascular disease, or PAD presumed to be of atherosclerotic origin. Appears rosuvastatin 20 mg 1 tab daily covered by insurance for $0 copay - Currently unable to determine if pt is indicated for MANJU-I or Arb for renal protective benefits without Lenka on file. Would benefit from checking Lenka and if >30 would recommend resuming MANJU/Arb therapy - Tdap, PPSV23 vaccines not on file and pt would be indicated, unknown date of last foot and eye exam Recommendations: - Recommend moving Lantus dose to QAM to avoid missed doses - Recommend Humalog 3 units before meals as unsure of sliding scale and reports base dose was at least 3 units - Recommend referral to CDE to establish new sliding scale for pt - Counseled pt on importance of metformin dose consistency to decrease risk of GI SE - Recommend switch to metformin XL 500 mg once daily to increase as tolerated every ~2 weeks - Counseled to take glipizide prior to meals to decrease hypoglycemia risk - Recommend rosuvastatin 20 mg 1 tab daily as covered by insurance to decrease CVD risk - Continue to work on diet and limit carbs to 45-60g per meal and <15g per snack. - Increase exercise to 30 mins, 5 days per week as tolerated. - Recommend checking SMBG at least TID before meals for Humalog doses and if s/sx of hypoglycemia present. - Recommend Tdap, PPSV23 vaccines, foot exam at next provider follow up, referral for eye exam if pthas not had within 1 year - Recommend Lenka - Provided counseling on the following topics: [ x ] DM Pathophys & Management (lifestyle/meds) [ x ] SMBG [ ] BG Goals (per ADA: FPG 80-130mg/dL, 2hrPPG <180 mg/dL [ ] Hypoglycemia s/sx/management [ ] Diet and portion control (MyPlate) [ ] Activity (per ADA: 30 min x 5 days/wk) [ x ] Storage/Handling/Admin of insulin Reviewed insulin administration sites, danger os reusing needles, storage of current insulin pen canbe at room temp x 28 days Clinical Practice Standards: Statin:no; self DC'd pravastatin MANJU/ARB: no; self DC'd losartan ASA: no Last A1C: Lab Results Component Value Date HA1C 8.1 (H) 03/24/2018 Date of last eye exam: unknown Date of last foot exam: unknown Immunization status: missing doses of pneumococcal and tetanus. Misc/Other: - Provided the following counseling on chantix dosing Days 4 to 7: 0.5 mg twice daily Maintenance (? Day 8): 1 mg twice daily for 11 weeks; may consider a temporary or permanent dose reduction if usual dose is not tolerated. - Counseled on decreasing urges with strategies such as keeping cigarettes out of sight and not buyinh new packs Educational information or adherence tools provided? yes - chantix dosing F/u needed? yes - create asthma/copd action plan, review SMBG, review any approved med changes Pt understands no changes to current drug regimen were made at the appointment and that [facility] is providing recommendations (summary located at top of note) for provider review and follow up. Ninfa Alba RPH 04/20/18 2:42 PM documented in this encounter Plan of Treatment Upcoming Encounters Date Type Specialty Care Team Description 08/06/2022 Office Visit Plastic Surgery Peña Woodward MD [facility] PLASTIC SURGERY [place], [place] [address] (Wo rk) 08/19/2022 Office Visit Podiatry Tom Titus DPM [place], [place] [address] (Wo rk) 09/08/2022 Office Visit Internal Medicine Janay Hay MD [facility] GENERAL INTERNAL MEDICINE [place], [place] [address] (Wo rk) 10/12/2059 Hospital Encounter Surgery Jim Hanley MD [facility] [place], [place] [address] (Wo rk) Scheduled Procedures Name [...] medications documented in this encounter Care Teams Residential Collections Relationship Specialty Start Date End Date Chandler Bay PA PCP - General General Internal Medicine 01/26/18 8 [facility] [place] [address] documented as of this encounter
--- OUTSIDE RECORDS SUMMARY | 2022-07-12 00:53 | XMS_ITS | Encounter Summary ---
:1965 Author Organization [facility] [place] [address] Care Team Providers Name Role Phone Chandler Bay Primary Care Provider Reason for Visit Reason Onset Date Comments Prior Authorization 03/24/2018 Encounter Details Date Type Department Care Team Description 03/24/2018 Telephone [facility] at [facility] [address] [place] [phone] [facility] [place], [place] [address] (Wo rk) Social History Tobacco [...] Notes Telephone Encounter - Kris Anderson - 03/24/2018 4:40 PM EDT Prior Authorization Patient: Emmanuelle Bynum : 1965 Insurance Company: Medicare Medication: [employer]cimer [employer] Prior Authorization Status: Covered Benefit on XTRAC, patient would like to begin treatment documented in this encounter Plan of Treatment Upcoming Encounters Date Type Specialty Care Team Description 08/06/2022 Office Visit Plastic Surgery Peña Woodward MD [facility] PLASTIC SURGERY [place], [place] [address] (Flores ordonez) 08/19/2022 Office Visit Podiatry Tom Titus DPM [place], [place] [address] (Flores ordonez) 09/08/2022 Office Visit Internal Medicine Janay Hay MD [facility] GENERAL INTERNAL MEDICINE [place], [place] [address] (Flores ordonez) 10/12/2059 Hospital Encounter Surgery Jim Hanley MD [facility] SPINE [facility] [place], [place] [address] (Wo rk) Scheduled Procedures Name [...] on filedocumented in this encounter Care Teams Wrecker Operator Relationship Specialty Start Date End Date Chandler Bay PA PCP - General General Internal Medicine 01/26/18 8 [facility] General [place] [address] documented as of this encounter
--- OUTSIDE RECORDS SUMMARY | 2022-07-12 00:53 | XMS_ITS | Encounter Summary ---
:1965 Author Organization [facility] Address [place] [phone] Care Team Providers Name Role Phone [place] Primary Care Provider Reason for Referral Consultation (Routine) - Closed Specialty Diagnoses / Referred By Contact Referred To Contact Procedures Maxillofacial Surgery Diagnoses Oral lesion [place], Hugo Padron MD PA [facility] General Internal [place], [place] [address] Medicine [place] [id number] Referral ID Status Reason Start Date Expiration Date Visits V isits Requested Authorized [id number] Closed Consult, 04/20/2018 04/20/2019 1 1 Test & Treat Reason for Visit Reason Comments Follow-up from the hospital, bleeding when going to the bathroom. referral to pain clinic in [place] Encounter Details Date Type Department Care Team Description 04/20/2018 Office Visit Internal Medicine at [place] [facility] C hronic obstructive pulmonary disease, unspecified COPD type; [facility] [place] [facility] [address] [place] General Internal [id number] Medicine [phone] [place] [phone] (Wo rk) Social History Tobacco Use Types [...] Sign Reading Time Taken Comments Blood Pressure 153/79 04/20/2018 1:45 PM EDT Pulse 108 04/20/2018 1:45 PM EDT Temperature 36.9 ??C (98.4 ??F) 04/20/2018 1:45 PM EDT Respiratory Rate 20 04/20/2018 1:45 PM EDT Oxygen Saturation 96% 04/20/2018 1:45 PM EDT Inhaled Oxygen Concentration - - Weight 99.8 kg (220 lb) 04/20/2018 1:45 PM EDT Height 167 cm (5' 5.75) 04/20/2018 1:45 PM EDT Body Mass Index 35.78 04/20/2018 1:45 PM EDT documented in this encounter Progress Notes [place] PA - 04/20/2018 1:40 PM EDT Subjective: Emmanuelle Bynum, a 52 y.o. female with a history of uncontrolled asthma, COPD, DMT2, bipolar II, schizophrenia, depression, mild leukocytosis, HTN, HLD, hypothyroidism, SEB, vitamin D def, and multiple musculoskeletal issues including cervical radiculitis, carpal tunnel, and polyarthralgia to name a few, is here today for follow up for a suspected COPD flare which she was evaluated for at [facility]. During her stay, she was found to have a SpO2% drop to 82%. She was given prednisone and nebulizer treatments, and since then she has felt like she is improving. She continues to cough, but that is diminishing. She is also looking for medication review today, however plans to seeour color separation photographer after today's appointment. She currently denies any fever, chest pain/pressure/palpitatons, lightheadedness, dizziness, or any other systemic symptoms. Also, she has a lesion on her inner lower left lip which she constantly bites. She would like a referral to remove this so she stops biting it. Review of Systems Constitutional: Negative for appetite change, chills, fatigue and fever. HENT: Negative for congestion, rhinorrhea, sinus pressure, sneezing, sore throat and voice change. Respiratory: Positive for cough. Negative for chest tightness and shortness of breath. Cardiovascular: Negative for chest pain and palpitations. Gastrointestinal: Negative for diarrhea, nausea and vomiting. Musculoskeletal: Negative for myalgias. Skin: Negative for rash. Neurological: Negative for headaches. Hematological: Negative for adenopathy. Family History [...] Used ??? Alcohol use No Objective: BP 153/79 (BP Location (NBP): Right arm, Patient Position: Sitting, BP Cuff Sizes: Adult (25-34 cm)) Pulse (!) 108 Temp 36.9 ??C (98.4 ??F) (Oral) Resp 20 Ht 167 cm (5' 5.75) Wt 99.8 kg (220lb) SpO2 96% BMI 35.78 kg/m2 BP Readings from Last 3 Encounters: 04/20/18 153/79 12/24/17 124/80 12/15/17 139/87 Wt Readings from Last 3 Encounters: 04/20/18 99.8 kg (220 lb) 03/24/18 100.2 kg (220 lb 12.8 oz) 12/15/17 102.1 kg (225 lb) Physical Exam Constitutional: She is oriented to person, place, and time. She appears well- developed and well-nourished. HENT: Head: Normocephalic and atraumatic. Right Ear: External ear normal. Left Ear: External ear normal. Nose: Nose normal. Mouth/Throat: Oropharynx is clear and moist. Small white lesion on the inner aspect of her left lower lip. Cardiovascular: Normal rate, regular rhythm and normal heart sounds. Pulmonary/Chest: Effort normal and breath sounds normal. No respiratory distress. She has no wheezes. She has no rales. Expiratory wheezes heard bilaterally and across all lung contreras. No dullness to percussion noted bilaterally. Inspiratory effort with bilateral equal rise without use of accessory muscles. Lymphadenopathy: She has no cervical adenopathy. Neurological: She is alert and oriented to person, place, and time. Skin: Skin is warm and dry. Psychiatric: She has a normal mood and affect. Tests/Imaging/Procedures 1) None performed today. Assessment and Plan: 1. Chronic obstructive pulmonary disease, unspecified COPD type Resolving. She may need a pulmonology follow up should this return. FU PRN. 2. Oral lesion Likely ulceration from repetitively biting her lip. Concern for leukoplakia given her history. Will refer to ENT for further evaluation. - An After Visit Summary was printed and given to the patient. - Emmanuelle was given the necessary information on her condition and instructed to return to clinic if symptoms continue or worsen. documented in this encounter Plan of Treatment Upcoming Encounters Date Type Specialty Care Team Description 08/06/2022 Office Visit Plastic Surgery Peña Woodward MD [facility] PLASTIC SURGERY [place], [place] [address] (Wo rk) 08/19/2022 Office Visit Podiatry Tom Titus DPM [place], [place] [address] (Wo rk) 09/08/2022 Office Visit Internal Medicine Janay Hay MD [facility] GENERAL INTERNAL MEDICINE [place], [place] [address] (Wo rk) 10/12/2059 Hospital Encounter Surgery Jim Hanley MD [facility] DR SPINE CENTER [place], [place] [address] (Wo rk) Scheduled Procedures Name [...] encounter Visit Diagnoses Diagnosis Chronic obstructive pulmonary disease, u nspecified COPD type Oral lesion Other and unspecified diseases of the or al soft tissues documented in this encounter Care Teams Electric Cutter Operator Relationship Specialty Start Date End Date [place] PA PCP - General General Internal Medicine 01/26/[address] [place] [address] [place] [address] documented as of this encounter
--- OUTSIDE RECORDS SUMMARY | 2022-07-12 00:53 | XMS_ITS | Encounter Summary ---
:1965 Author Organization [facility] Address [address] [place] [address] Care Team Providers Name Role Phone [place] Primary Care Provider Reason for Visit Reason Comments Procedure xtrac Encounter Details Date Type Department Care Team Description 04/20/2018 Procedure visit Dermatology at [facility] Psoriasis vulgaris [address] [place] [address] Social History Tobacco Use Types Packs/Day [...] documented as of this encounter Progress Notes Namita Perez LPN - 04/20/2018 11:00 AM EDT XTRAC NB-UVB LASER TREATMENT NOTE Patient Name: Emmanuelle Bynum : 1965 Date of service: 04/20/2018 Ordering Provider: Jacob Blair MD Supervising Provider: Maricruz Oliver MD Diagnosis: scalp psoriasis HPI: Presents today for NB-UVB laser treatments. Written consent form signed by patient. Treatment Number: 1 Treatment Schedule: 2-3 x week Skin type: II Initial Dose? : (xx )yes ( )no Protective measures: (xx) Goggles ( ) Other: Any reactions from previous treatment ? : Tenderness / pain Yes ( ) No (x) Areas: Plaque Improvement Yes ( ) No () Areas: Blistering Yes ( ) No ( ) Areas: Comments: TREATMENT LOCATION ERYTHEMA: MILD, MODERATE, OR SEVERE DOSE % INCREASE / DECREASE + / - Mj DOSE SETTING scalp mild 300mj Photos: -Photo taken with patients permission. Add in scan docs Body Surface area treated today: 84 sq cm Billing Code / Body Surface Areas: (x ) 79706 <250 sq cm ( ) 66110 250-500 sq cm ( ) 68000 500 sq cm Plan: 1. Continue treatments as scheduled 2. Frequently keep skin moisturized 3. Continue using topical medicated creams documented in this encounter Plan of Treatment Upcoming Encounters Date Type Specialty Care Team Description 08/06/2022 Office Visit Plastic Surgery Peña Woodward MD [facility] PLASTIC SURGERY [place], [place] [address] (Wo rk) 08/19/2022 Office Visit Podiatry Tom Titus DPM [place], [place] [address] (Wo rk) 09/08/2022 Office Visit Internal Medicine Janay Hay MD [facility] GENERAL INTERNAL MEDICINE [place], [place] [address] (Wo rk) 10/12/2059 Hospital Encounter Surgery Jim Hanley MD [facility] SPINE CENTER [place], [place] [address] (Wo rk) Scheduled Procedures Name [...] of this encounter Visit Diagnoses Diagnosis Psoriasis vulgaris Other psoriasis documented in this encounter Care Teams Saw Runner Relationship Specialty Start Date End Date [place] PA PCP - General General Internal Medicine 01/26/[address] [place] [address] [place] [address] documented as of this encounter
--- OUTSIDE RECORDS SUMMARY | 2022-07-12 00:53 | XMS_ITS | Encounter Summary ---
:1965 Author Organization [facility] [place] [address] Care Team Providers Name Role Phone [place] Primary Care Provider Reason for Visit Reason Onset Date Comments Results 03/25/2018 Encounter Details Date Type Department Care Team Description 03/25/2018 Telephone Internal Medicine at [facility] Masood Hester Results [facility] [address] [place] [address] Social History Tobacco Use Types Packs/Day [...] Telephone Encounter - Caitlin Martinez RN - 03/25/2018 1:58 PM EDT Called Emmanuelle and let her know chest x-ray was normal. Apologized that she did not receive a call last night. Guerda reports a sleepless night because she was worried about the result. She appreciated the call back. Let her know some labs are still in process, but once finished we will call her with those results. Telephone Encounter - Masood Hester - 03/25/2018 12:29 PM EDT Message: patient upset that she was told she would be contacted last night with xray results and shestill hasn't heard anything back. Patient would like [place] to contact her SCOTTY to let her know what is going on with her chest xray Caller and relationship (if other than patient-full name): pt Best time to call back: today Ok to leave a message: [y] Ok to send my- message: [n] Offered Appointment: n MA/Nurse contacted via: Message: y Call: n Pager: n documented in this encounter Plan of Treatment Upcoming Encounters Date Type Specialty Care Team Description 08/06/2022 Office Visit Plastic Surgery Peña Woodward MD [facility] DR PLASTIC SURGERY [place], [place] [address] (Wo rk) 08/19/2022 Office Visit Podiatry Tom Titus DPM [facility] [address] [place], [place] [address] (Wo rk) 09/08/2022 Office Visit Internal Medicine Janay Hay MD [facility] GENERAL INTERNAL MEDICINE [place], [place] [address] (Wo rk) 10/12/2059 Hospital Encounter Surgery Jim Hanley MD [facility] SPINE CENTER [place], [place] [address] (Wo rk) Scheduled Procedures [...] on filedocumented in this encounter Care Teams Certified Genetic Counselor Relationship Specialty Start Date End Date [place] PA PCP - General General Internal Medicine 01/26/18 8 [facility] [place] [address] documented as of this encounter
--- OUTSIDE RECORDS SUMMARY | 2022-07-12 00:54 | XMS_ITS | Encounter Summary ---
:1965 Author Organization [facility] Address [address] [address] Care Team Providers Name Role Phone Ernestina Nowak Primary Care Provider Encounter Details Date Type Department Care Team Description 12/09/2016 Telephone Dermatology at [facility] Namita Perez, [address] ASSEMBLER [place] [address] Social History Tobacco Use Types Packs/Day [...] this encounter Miscellaneous Notes Telephone Encounter - Namita Perez LPN - 12/09/2016 3:56 PM EST Called patient to see if she was still interested in starting the xtrac laser for scalp psoriasis. She recently is getting over a sickness and would like to start treatments next week 12/15. She prefers mondays and wednesdays. Scheduled her for thu / at 230 pm Her insurance approved treatments. documented in this encounter Plan of Treatment Upcoming Encounters Date Type Specialty Care Team Description 08/06/2022 Office Visit Plastic Surgery Peña Woodward MD [facility] PLASTIC SURGERY [place], [place] [address] (Flores ordonez) 08/19/2022 Office Visit Podiatry Tom Titus DPM [place], [place] [address] (Flores ordonez) 09/08/2022 Office Visit Internal Medicine Janay Hay MD [facility] GENERAL INTERNAL MEDICINE [place], [place] [address] (Flores ordonez) 10/12/2059 Hospital Encounter Surgery Jim Hanley MD [facility] SPINE CENTER [place], [place] [address] (Wo rk) Scheduled Procedures Name Priority Associated [...] on filedocumented in this encounter Care Teams Boomboat Operator Relationship Specialty Start Date End Date Ernestina Nowak PA PCP - General Family Medicine 02/01/16 08/24/17 580 [place] [address] documented as of this encounter
--- OUTSIDE RECORDS SUMMARY | 2022-07-12 00:54 | XMS_ITS | Encounter Summary ---
:1965 Author Organization [facility] Address [facility] [place] [address] Care Team Providers Name Role Phone Ernestina Nowak Primary Care Provider Reason for Visit Reason Onset Date Comments Results 05/20/2016 Encounter Details Date Type Department Care Team Description 05/20/2016 Telephone Neurology at [facility] Geeta Mcqueen APRN Results [facility] Kevin castañeda [facility] [place] [address] NEUROLOGY DEPT. [phone] [place] [id number] (Wo rk) Social History Tobacco Use Types [...] encounter Miscellaneous Notes Telephone Encounter - Gaby Villatoro RN - 05/21/2016 12:07 PM EDT EKG results faxed to PCP office and call placed, I spoke with the nurse for the patient's provider and she will make sure that this is reviewed. Telephone Encounter - Geeta Mcqueen APRN - 05/20/2016 5:56 PM EDT Abnormal EKG results: Normal sinus rhythm T wave abnormality, consider anterior ischemia Abnormal ECG When compared with ECG of 17-JUL-2014 15:57, No significant change was found Confirmed by MD TEMO, TERE ([id number]) on 05/14/2016 6:07:27 PM P: 1. RN will call and fax EKG results to PCP for evaluation and treatment documented in this encounter Plan of Treatment Upcoming Encounters Date Type Specialty Care Team Description 08/06/2022 Office Visit Plastic Surgery Peña Woodward MD [facility] PLASTIC SURGERY [place] [phone] (Wo rk) 08/19/2022 Office Visit Podiatry Tom Titus DPM [facility] [address] [place], [place] [address] (Wo rk) 09/08/2022 Office Visit Internal Medicine Janay Hay MD [facility] GENERAL INTERNAL MEDICINE [place], [place] [address] (Flores ordonez) 10/12/2059 Hospital Encounter Surgery Jim Hanley MD [facility] SPINE CENTER [place], [place] [address] (Wo josé luis) Scheduled Procedures Name Priority [...] filedocumented in this encounter Care Teams Welder Production Line Combination Relationship Specialty Start Date End Date Ernestina Nowak PA PCP - General Family Medicine 02/01/16 08/24/17 580 [place] [address] documented as of this encounter
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
--- OUTSIDE RECORDS SUMMARY | 2022-07-12 00:54 | XMS_ITS | Encounter Summary ---
:1965 Author Organization [facility] [place] [address] Care Team Providers Name Role Phone Ernestina Nowak Primary Care Provider Encounter Details Date Type Department Care Team Description 02/19/2017 Telephone Dermatology at [facility] Jacob Langston III, [address] [place] [address] [facility] [phone] [facility] P[facility]RAS[facility] [place], [place] [address] (Wo rk) Social History Tobacco [...] Encounter - Jacob Blair III, MD - 02/19/2017 5:16 PM EDT I called the patient and discussed the path report: [id number] ?Location: [facility] The signing pathologist has (i) examined the relevant preparation(s) for the specimen(s) and (ii) rendered or confirmed the diagnosis(es). . ? Surgical Pathology DIAGNOSIS Skin, left superior shoulder, punch biopsy: - Compatible with hemangioma (see discussion) Electronically signed by: ??Brad Ho MD Verified: ??02/19/2017 ?Dermatopathologist DISCUSSION No carcinoma, squamous dysplasia, or melanocytic proliferation is identified in this ??sample. The present features are sparse but most suggestive of hemangioma. ? Should ??the biopsy represent a small component of a larger or clinically heterogeneous ??lesion, then the findings may not be extrapolated to the lesion in its entirety. I discussed this condition with the patient . She will call if problems arise. She will discuss these results with her surgeon. She will have sutures removed by her PCP, but may return here for removal if desired. Jacob Blair MD Section of Dermatology [facility] documented in this encounter Plan of Treatment Upcoming Encounters Date Type Specialty Care Team Description 08/06/2022 Office Visit Plastic Surgery Peña Woodward MD [facility] PLASTIC SURGERY [place], [place] [address] (Wo rk) 08/19/2022 Office Visit Podiatry Tom Titus DPM [place], [place] [address] (Wo rk) 09/08/2022 Office Visit Internal Medicine Janay Hay MD [facility] GENERAL INTERNAL MEDICINE [place], [place] [address] (Wo rk) 10/12/2059 Hospital Encounter Surgery Jim Hanley MD [facility] SPINE CENTER [place], [place] [address] (Wo rk) Scheduled Procedures Name [...] on filedocumented in this encounter Care Teams Pole Incisor Operator Relationship Specialty Start Date End Date Ernestina Nowak PA PCP - General Family Medicine 02/01/16 08/24/17 [address] [place] [address] documented as of this encounter
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
--- OUTSIDE RECORDS SUMMARY | 2022-07-12 00:54 | XMS_ITS | Encounter Summary ---
:1965 Author Organization [facility] Address [facility] [place] [address] Care Team Providers Name Role Phone Ernestina Nowak Primary Care Provider Reason for Visit Reason Comments Medication Refill Encounter Details Date Type Department Care Team Description 12/18/2016 Refill Ophthalmology [facility] Payal Erwin, Bilateral dry eyes [facility] Kevin [place]añ[place] [address] [facility] [phone] OPHTHALMOLOGY DE PT. [place], [place] [address] (Wo rk) Social History Tobacco [...] [facility] [place] [id number] ([facility]) 08/19/2022 Office Visit Podiatry Tom Titus DPM [place], [place] [address] ([facility]) 09/08/2022 Office Visit Internal Medicine Janay Hay MD [facility] GENERAL INTERNAL MEDICINE [place], [place] [address] ( rk) 10/12/2059 Hospital Encounter Surgery Jim Hanley MD [facility] SPINE CENTER [place], [place] [address] (Wo josé luis) Scheduled Procedures [...] Bilateral dry eyes Tear film insufficiency, unspecified documented in this encounter Care Teams Sleever Relationship Specialty Start Date End Date Ernestina Nowak PA PCP - General Family Medicine 02/01/16 08/24/17 [address] [place] [address] documented as of this encounter
--- OUTSIDE RECORDS SUMMARY | 2022-07-12 00:54 | XMS_ITS | Encounter Summary ---
:1965 Author Organization [facility] Address [facility] [place] [address] Care Team Providers Name Role Phone Ernestina Nowak Primary Care Provider Reason for Visit Reason Comments Blurred Vision Myopia Dry Eye Diabetic Eye Exam Encounter Details Date Type Department Care Team Description 08/18/2016 Office Visit Ophthalmology at [facility] Payal Gunter Controlled type 2 diabetes m soniaitus without complication, unspecified intermediate manager insulin use status; [facility] J, OD Myopia of both eyes with astigmatism and presbyopia; [facility] Bilateral dry eyes; [place] [address] CENTER Combined forms of age-related cataract o f both eyes [phone] OPHTHALMOLOGY DEPT. [place], [place] [address] Social History Tobacco Use Types [...] encounter Progress Notes Payal Erwin, OD - 08/18/2016 3:00 PM EST Emmanuelle Bynum is a 50 y.o. female who had concerns including Blurred Vision; Myopia; Dry Eye; and Diabetic Eye Exam. No diabetic retinopathy. Dry eyes doing OK on current regimen. Rx updated. OD alittle blurry with central vacuoles. Assessment: Encounter Diagnoses Name Primary? Controlled type 2 diabetes mellitus without complication, unspecified intermediate manager insulin use status ??? Myopia of both eyes with astigmatism and presbyopia ??? Bilateral dry eyes ??? Combined forms of age-related cataract of both eyes Plan: 1)Refractive Error - MRx given to patient. 2)DM - pt ed re: importance of good bs control and yearly eye exam 3)continue with Restasis bid, AT gloria prn, fish oil, BS scrubs and compresses daily 4)Small cataract - pt ed: Monitor yearly Follow up: CEE 1 year. Eyeglass Final Rx Eyeglass Final Rx Sphere Cylinder Mont[place] Add Right -0.50 +0.75 170 +2.00 Left -1.00 +0.50 035 +2.00 Expiration Date: 08/19/2018 documented in this encounter Plan of Treatment Upcoming Encounters Date Type Specialty Care Team Description 08/06/2022 Office Visit Plastic Surgery Peña Woodward MD [facility] PLASTIC SURGERY [place], [place] [address] (Wo rk) 08/19/2022 Office Visit Podiatry Tom Titus DPM [place], [place] [address] (Wo rk) 09/08/2022 Office Visit Internal Medicine Janay Hay MD [facility] GENERAL INTERNAL MEDICINE [place], [place] [address] (Wo rk) 10/12/2059 Hospital Encounter Surgery Jim Hanley MD [facility] SPINE CENTER [place], [place] [address] (Wo rk) Scheduled Procedures Name [...] Name Priority Date/Time Associated Diagnosis Comme nts OCT RETINA - OU - Routine 08/18/2016 9:47 PM Controlled type 2 Results for this BOTH EYES EST diabetes mellitus procedure are in without the results complication, section. unspecified senior living insulin use status documented in this encounter Results OCT [id number] EYES (08/18/2016 9:47 PM EST) Anatomical Region Laterality Modality Other Specimen (Source) Anatomical Location Collection Method / Collectio n Time Received Time / Laterality Volume Narrative 08/18/2016 9:47 PM EST This result has an attachment that is no t available. Diabetic with blurred VA. ??No macular e gabo. ??Ave thickness 238/243. ?? Payal Erwin OD OPHTHALMOLOGY SERVICES ORDER NERIS documented in this encounter Visit Diagnoses Diagnosis Controlled type 2 diabetes mellitus with out complication, unspecified senior living insulin use status Myopia of both eyes with astigmatism and presbyopia Bilateral dry eyes Tear film insufficiency, unspecified Combined forms of age-related cataract o f both eyes Other and combined forms of senile catar act documented in this encounter Care Teams Physician Extender Relationship Specialty Start Date End Date Ernestina Nowak PA PCP - General Family Medicine 02/01/16 08/24/17 [address] [place] [address] documented as of this encounter
--- OUTSIDE RECORDS SUMMARY | 2022-07-12 00:54 | XMS_ITS | Encounter Summary ---
:1965 Author Organization [facility] [place] [address] Care Team Providers Name Role Phone Ernestina Nowak Primary Care Provider Reason for Visit Reason Comments Arm Problem left arm humerus lesion Encounter Details Date Type Department Care Team Description 02/10/2017 Office Visit Orthopaedics at [facility] Dash Snow Enchondroma of left [facility] [place] [address] [place] [address] ORTHOPAEDIC SURGERY [place] [address] Social History Tobacco Use Types Packs/Day Years [...] Sign Reading Time Taken Comments Blood Pressure 144/92 02/10/2017 2:07 PM EDT Pulse 98 02/10/2017 2:07 PM EDT Temperature - - Respiratory Rate - - Oxygen Saturation - - Inhaled Oxygen Concentration - - Weight 97.5 kg (215 lb) 02/10/2017 2:07 PM EDT pt repor jory Height 165.1 cm (5' 5) 02/10/2017 2:07 PM EDT pt repor jory Body Mass Index 35.78 02/10/2017 2:07 PM EDT documented in this encounter Progress Notes Dash Snow MD - 02/10/2017 1:50 PM EDT Reason for consultation is left proximal humeral bone lesion. HISTORY OF PRESENT ILLNESS: Emmanuelle Bynum is a 51-year-old woman who comes in today with a chief complaint of a left humeral bone lesion, which she says has been interpreted as a possible malignancy. She states she has pain throughout the left upper extremity, describes pins and needles radiating down her arm, weakness, and pain isolated to the shoulder as well. She does note prior history of bone lesions, no biopsy. She has undergone x-ray and MRI. She would like to have her rotator cuff addressed but has been told she needs to have clearance from me first. PAST MEDICAL HISTORY: Hypertension, high cholesterol, asthma, COPD, pneumonia, reflux, ulcers, irritable bowel, diabetes, thyroid disease, osteoarthritis, multiple fractures, cirrhosis, renal failure, headaches, depression, anxiety, bipolar, chronic pain. PAST SURGICAL HISTORY: 1. section x2. 2. Hysterectomy. 3. Left shoulder surgery twice, left elbow surgery, left hand surgery, cholecystectomy. MEDICATIONS AND ALLERGIES: Please see medical record. SOCIAL HISTORY: Patient is and retired. She smokes 1/2 pack per day for the past 33 years. No history of smokeless tobacco use. Never drank alcohol. Family medical history is pertinent for hypertension, high cholesterol, asthma, COPD, pneumonia, reflux, ulcers, irritable bowel, Crohn's disease, ulcerative colitis, diabetes, tyroid disease, osteoarthritis, rheumatoid arthritis, multiple fractures, renal failure, anemia, easy bleeding and bruising, acne, psoriasis, eczema, stroke, Parkinson's, multiple sclerosis, depression, anxiety, bipolar. She notes a history of skin cancer, breast cancer, and bone cancer. REVIEW OF SYSTEMS: A 14-point review is positive for the above findings as well as pain in her rotator cuff. PHYSICAL EXAM: On exam today, she is alert and oriented x4, no apparent distress. Cardiovascular exam: Regular rate, rhythm. Pulmonary exam: Slight inspiratory wheeze. GI exam: Nontender. Neurological is deferred. Skin exam: Normal, age-related changes. Psychiatric exam: Anxious and hyperalert for pain. Musculoskeletal exam: Examination of the patient's left upper extremity shows her to have difficulty with abduction, and she has global pain. IMAGING STUDIES: Plain films show generally normal-appearing humerus. There is some morphology of a chondroid matrix in the proximal humerus. MRI scan shows a well-defined geographic lesion with high signal in T2, low signal in T1 which is consistent with an enchondroma. IMPRESSION AND PLAN: Ms. Bynum is a 51-year-old woman with a history of left shoulder pain and was found incidentally to have an enchondroma on imaging. I see no malignant features associated with this. My recommendation would be for serial imaging in increments of 3, 6, and 12 months. This could be performed either at my office or with the [facility]. The patient said she would rather have this at the [facility]. For this reason, she will follow up with me on a p.r.n. basis. I am happy to see her back at any point in time, should she develop any new symptoms or have questions or concerns. In regard to her rotator cuff, she is cleared by me to have whatever treatment is deemed necessary by the [facility]. All questions were answered. documented in this encounter Plan of Treatment Upcoming Encounters Date Type Specialty Care Team Description 08/06/2022 Office Visit Plastic Surgery Peña Woodward MD [facility] PLASTIC SURGERY [place], [place] [address] (Wo rk) 08/19/2022 Office Visit Podiatry Tom Titus DPM [place], [place] [address] (Wo rk) 09/08/2022 Office Visit Internal Medicine Janay Hay MD [facility] GENERAL INTERNAL MEDICINE [place], [place] [address] (Wo rk) 10/12/2059 Hospital Encounter Surgery Jim Hanley MD [facility] SPINE CENTER [place], [place] [address] (Wo rk) Scheduled Procedures Name [...] as of this encounter Visit Diagnoses Diagnosis Enchondroma of left humerus documented in this encounter Care Teams Mobile Lab Technician Relationship Specialty Start Date End Date Ernestina Nowak PA PCP - General Family Medicine 02/01/16 08/24/17 [address] [place] [address] documented as of this encounter
--- OUTSIDE RECORDS SUMMARY | 2022-07-12 00:54 | XMS_ITS | Encounter Summary ---
:1965 Author Organization [facility] [place] [address] Care Team Providers Name Role Phone Ernestina Nowak Primary Care Provider Reason for Visit Reason Comments Follow-up Encounter Details Date Type Department Care Team Description 02/16/2017 [facility], Neoplasm of uncertain behavior of skin [address] [place] [address] [facility] [place], [place] [address] Social History Tobacco Use Types [...] documented as of this encounter Progress Notes Chastity Sebastian LPN - 02/16/2017 8:00 AM EDT Images from the original note were not included. DERMATOLOGY ESTABLISHED PATIENT CLINIC NOTE Date of service: 02/16/2017 Emmanuelle Bynum : 1965 Provider: Jacob Blair MD PROBLEM: psoriasis follow up SKIN HISTORY: Seborrheic keratoses Psoriaisis HPI Emmanuelle Bynum is a 51 y.o. year old female.Established patient of [facility]. Last seen 08/18/2016. Here today for a follow up of her scalp psoriasis. This is doing well as she only has one small area onthe nape of the neck that is active. She needs refills of her medication She also has a lesion on her shoulder she would like checked. She is going to have shoulder surgery and her physician wants this biopsied for form diagnosis before he does any shoulder surgery. The lesion on the shoulder has been present about 6 years - started after trauma to the area ADR: Allergies Allergen Reactions ??? Clonidine (Pf) Other (See Comments) stenens johnsons syndrome ??? Codeine ??? Methadone Nausea And Vomiting CURRENT MEDICATIONS: Current Outpatient Prescriptions Medication Sig Dispense Refill ??? cycloSPORINE (RESTASIS) 0.05 % [address] Place 1 drop into both eyes every 12 hours. 60 vial 11 ??? betamethasone-calcipotriene (TACLONEX SCALP) 0.005-0.064 % Suspension Apply 3 times a week to scalp for psoriasis 120 g 2 ??? Clobetasol-Emollient 0.05 % [...] Allergic Rhinitis ??? fluticasone (VERAMYST) 27.5 mcg/actuation [place], Suspension 2 sprays by Nasal route daily. [...] complaints EXAM General: NAD, pleasant, cooperative Skin: Focused exam of the left shoulder and scalp was performed. Significant skin findings: A. Left superior shoulder - 1.5 x 1.0 cm mottled purple papule present for 6 years after trauma Photos taken by: Dr. Blair Photos taken and charted with patient consent B. Occipital scalp - well-demarcated, erythematous plaque with silvery scale. No other psoriasis noted Procedure Screening Questions: ? No? Yes ?? Defibrillator/Pacemaker?? x ?? Artificial Joints?? x ?? Heart Valves?? x ?? Blood Thinners?? x ?? Prophylactic Antibiotics?? x ?? ASSESSMENT/PLAN: A. Hemangioma, doubt Nevus - left superior shoulder - I discussed this condition with the patient and explored therapeutic options. I recommended we do a punch biopsy, joint decision made to proceed with skin biopsy for further diagnostic information. Procedure: Skin biopsy by punch technique. Location: left superior shoulder Discussed indications for the procedure and expectations including risks and benefits. Verbal consent obtained. Skin prep with alcohol. Local anesthesia: 1% lidocaine with 1/100,000 epinephrine. A 3 mmpunch biopsy to the level of the subcutis was performed. Wound closed with monofilament suture. There were no complications; the patient tolerated the procedure well. The wound was dressed. Post-procedure expectations (including discomfort management), wound care and activity restrictions were reviewed. Follow-up based on pathology results. Suture removal: 7-10 days- she will have this done at her home, but may call if problems arise Will send report to her sports medicine physician - Dr Enrico Regalado Scalp Psoriasis - occiput - I discussed this condition with the patient and explored therapeutic options. Recommendations: - Refill Rx: Clobetasol (sent to [place], [place]) Apply no more than 2 times a week to scalp for psoriasis on weekends. - Refill Rx: Taclonex solution (sent to [place], [place]) Apply twice daily to scalp psoriasis on 2 weekdays for mot more than weekdays ?? Discussed importance of sun protection, sun avoidance strategies, protective clothing, and sunscreen. RTC: PRN. Instructed to call if problems arise. Note initiated by: CHASTITY SEBASTIAN LPN ? Lisa Hdz, Clinical Scribe has performed the documentation for this encounter in the presence of and acting as a scribe for Dr. Jacob Blair. I performed the above scribed service and agree with the accuracy of the documentation in this encounter. I performed the above scribed service and agree with the accuracy of the documentation in this encounter. Jacob Blair MD Section of Dermatology [facility] documented in this encounter Plan of Treatment Upcoming Encounters Date Type Specialty Care Team Description 08/06/2022 Office Visit Plastic Surgery Peña Woodward MD [facility] PLASTIC SURGERY [place], [place] [address] (Wo rk) 08/19/2022 Office Visit Podiatry Tom Titus DPM [place], [place] [address] (Wo rk) 09/08/2022 Office Visit Internal Medicine Janay Hay MD [facility] GENERAL INTERNAL MEDICINE [place], [place] [address] (Wo rk) 10/12/2059 Hospital Encounter Surgery Jim Hanley MD [facility] SPINE CENTER [place], [place] [address] (Wo rk) [...] Associated Diagnosis Comme nts SPECIMEN TO Routine 02/16/2017 9:32 AM Neoplasm of Results f or this PATHOLOGY (NON-OR) EDT uncertain behavior pro cedure are in of skin the results section. SURGICAL PATHOLOGY Routine 02/16/2017 9:32 AM Res ults for this REPORT EDT procedure are i n the results section. documented in this encounter Results Surgical Pathology Report (02/16/2017 9:32 AM EDT) Component Value Ref Test Analysis Performed At [facility] Range Method Time Signature Surgical [id number] ?Location: [facility] Report The signing pathologist has (i) examined the relevant preparation(s) for the MEMORIAL specimen(s) and (ii) rendered or confirmed the diagnosis(es) . HOSPITAL LABORATORY . ?Surgic al Pathology DIAGNOSIS Skin, left superior shoulder, punch biopsy: - Compatible with hemangioma (see discussion) Electronically signed by: ??[place] MEDINA, Brad Lawson Verified: ??02/19/2017 ?Dermatopathologist DISCUSSION No carcinoma, squamous dyspl tracy, or melanocytic proliferation is identified in this sample. The present feature s are sparse but most suggestive of hemangioma. ? Should the biopsy represent a smal l component of a larger or clinically heterogeneous lesion, then the findings m ay not be extrapolated to the lesion in its entirety. MICROSCOPIC DESCRIPTION The sample contains a slight increase in dilated, loosely-associated thin-walled dermal vessels with bland endothelial lining that ext end to the base of the specimen. The superficial v essels are ectatic. There is no hemosiderin deposition or accompanying inflammation. ??The vessels label with CD31 and are negative for D2-40. S100 and Sox10 are negative in the dermis. CLINICAL INFORMATION Specimen Submitted: A - Skin, left superior shoulder, punch (1) Clinical History: 1.5 x 1.0 cm mottled purple papule present for six years aft er trauma Clinical Diagnosis: Hemangioma, doubt nevus SPECIMEN PROCESSING A - Labeled/Fixative: Patient demographics, formalin. Quantity/Size: Single, 0.3 x 0.3 x 0.2 cm. Tissue Description: Punch of lyons-white skin. Sections/Processing: Submitted in toto. (T1) ??mkd Specimen (Source) Anatomical Collection Method Collection Time Re ceived Time Location / / Volume Laterality 02/16/2017 9:32 AM EDT Jacob Blair III, MD PATHOLOGY/CYTOLOGY ORDERABLE S Performing Organization Address City/[facility]/ZIP [facility] [place] [address] Specimen to Pathology (NON-OR) (02/16/2017 9:32 AM EDT) Specimen Anatomical Collection Method Collection Time Receive d Time (Source) Location / / Volume Laterality AP Specimen 02/16/2017 9:32 AM 7 EDT 12:52 PM EDT Narrative [facility] - 02/16/2017 12:52 PM EDT Specimen requisition ordered. ??Separate Pathology report to follow Resulting Agency Comment Spec In Lab Jacob Blair III, MD PATHOLOGY/CYTOLOGY ORDERABLE S Performing Organization Address City/[facility]/ZIP [facility] [place] [address] documented in this encounter Visit Diagnoses Diagnosis Psoriasis Other psoriasis Neoplasm of uncertain behavior of skin documented in this encounter Care Teams Pediatric Occupational Therapist Relationship Specialty Start Date End Date Ernestina Nowak PA PCP - General Family Medicine 02/01/16 08/24/[address] [place] [address] documented as of this encounter
--- OUTSIDE RECORDS SUMMARY | 2022-07-12 00:54 | XMS_ITS | Encounter Summary ---
:1965 Author Organization [facility] Address [address] [place] [address] Care Team Providers Name Role Phone Tom Hay MD Primary Care Provider Reason for Visit Reason Comments Medication Refill Encounter Details Date Type Department Care Team Description 05/14/2016 Refill Neurology at [facility] Geeta Mcqueen APRN Headache(784.0) [facility] garry [facility] [place] [address] NEUROLOGY DEPT. [phone] [place] [address] (Wo rk) Social History Tobacco Use Types [...] MD [facility] PLASTIC SURGERY [place] [address] ([facility]) 08/19/2022 Office Visit Podiatry Tom Titus DPM [place] [address] ([facility]) 09/08/2022 Office Visit Internal Medicine Janay Hay MD [facility] GENERAL INTERNAL MEDICINE [place] [address] ([facility]) 10/12/2059 Hospital Encounter Surgery Jim Hanley MD [facility] SPINE CENTER [place] [address] ( josé luis) Scheduled Procedures Name Priority [...] as of this encounter Visit Diagnoses Diagnosis Headache(784.0) Headache Myeloradiculopathy Unspecified nerve root and plexus disord er documented in this encounter Additional Health Concerns Infection Onset Date Last Indicated Resolved Time Rule Out COVID-19 02/13/2021 02/13/2021 02/13/2021 3: 17 PM EDT Rule Out C. difficile 02/13/2021 02/13/2021 02/13/2021 9:03 PM EDT documented as of this encounter Care Teams Supply Aide Relationship Specialty Start Date End Date Tom Hay MD PCP - General General Internal Medicine 09/15/18 [facility] GENERAL [place] [address] documented as of this encounter
--- OUTSIDE RECORDS SUMMARY | 2022-07-12 00:54 | XMS_ITS | Encounter Summary ---
:1965 Author Organization [facility] [place] [address] Care Team Providers Name Role Phone Ernestina Nowak Primary Care Provider Reason for Visit Reason Onset Date Comments Medication Refill 05/23/2016 Encounter Details Date Type Department Care Team Description 05/23/2016 Refill Dermatology at [facility] Jacob Blair III, MD [address] [place] [address] [facility] [address] [address]-DER[facility] [phone] [place], [place] [address] (Wo rk) Social History [...] Encounter - Jacob Blair III, MD - 05/23/2016 3:26 PM EDT Refill for psoriasis requested: Clobetasol foam for worse areas in scalp on weekends Taclonex scalp solution for scalp lesions - 2-3 times a week if needed. Call if areas do not resolve as expected or problems arise. Refill granted - request for prior authorization submitted. Needs to make appointment for further refills. Jacob Blair MD Section of Dermatology [facility] documented in this encounter Plan of Treatment Upcoming Encounters Date Type Specialty Care Team Description 08/06/2022 Office Visit Plastic Surgery Peña Woodward MD [facility] PLASTIC SURGERY [place], [place] [address] (Wo rk) 08/19/2022 Office Visit Podiatry Tom Titus DPM [place], [place] [address] (Wo rk) 09/08/2022 Office Visit Internal Medicine Janay Hay MD [facility] GENERAL INTERNAL MEDICINE [place], [place] [address] (Wo rk) 10/12/2059 Hospital Encounter Surgery Jim Hanley MD [facility] SPINE CENTER [place], [place] [address] (Wo rk) Scheduled Procedures [...] on filedocumented in this encounter Care Teams Bus System Operator Relationship Specialty Start Date End Date Ernestina Nowak PA PCP - General Family Medicine 02/01/16 08/24/[address] [place] [address] documented as of this encounter
--- OUTSIDE RECORDS SUMMARY | 2022-07-12 00:54 | XMS_ITS | Encounter Summary ---
:1965 Author Organization [facility] Address [facility] [place] [address] Care Team Providers Name Role Phone Ernestina Nowak Primary Care Provider Encounter Details Date Type Department Care Team Description 10/21/2016 Telephone Dermatology at [facility] Suzie Ascencio RN [address] [place] [address] Social History Tobacco Use Types Packs/Day [...] encounter Miscellaneous Notes Telephone Encounter - Suzie Ascencio RN - 10/21/2016 11:51 AM EST Lillie phone voice mail not set up Left message on home phone requesting a call back to schedule XTRAC Suzie Ascencio RN documented in this encounter Plan of Treatment Upcoming Encounters Date Type Specialty Care Team Description 08/06/2022 Office Visit Plastic Surgery Peña Woodward MD [facility] PLASTIC SURGERY [place], [place] [address] (Flores ordonez) 08/19/2022 Office Visit Podiatry Tom Titus DPM [place], [place] 5 (Flores ordonez) 09/08/2022 Office Visit Internal Medicine Janay Hay MD [facility] GENERAL INTERNAL MEDICINE [place], [place] [address] (Flores ordonez) 10/12/2059 Hospital Encounter Surgery Jim Hanley MD [facility] SPINE CENTER [place], [place] [address] (Flores ordonez) Scheduled Procedures Name [...] on filedocumented in this encounter Care Teams Client Technologies Analyst Relationship Specialty Start Date End Date Ernestina Nowak PA PCP - General Family Medicine 02/01/16 08/24/17 [address] [place] [address] documented as of this encounter
--- OUTSIDE RECORDS SUMMARY | 2022-07-12 00:54 | XMS_ITS | Encounter Summary ---
:1965 Author Organization [facility] Address [facility] [place] [address] Care Team Providers Name Role Phone Ernestina Nowak Primary Care Provider Reason for Visit Reason Onset Date Comments Other 09/03/2016 Prior Auth Encounter Details Date Type Department Care Team Description 09/03/2016 Telephone Dermatology at [facility] Jacob Blair (Prior Auth) Karen GANNON MD [address] [facility] [place] [address] [facility] [address]-DERMATOLGY [phone] [place], [place] [address] (Wo rk) Social History Tobacco [...] this encounter Miscellaneous Notes Telephone Encounter - Jourdan Escudero - 09/03/2016 11:12 AM EST Prior Authorization Patient: Emmanuelle Bynum : 1965 Insurance Company: MEDICARE PART A & B Secondary Insurance Company: [place] Medicaid Secondary Medication: Xtrac laser Prior Authorization Status: Approved, begin treatment (see scanned documents) documented in this encounter Plan of Treatment Upcoming Encounters Date Type Specialty Care Team Description 08/06/2022 Office Visit Plastic Surgery Peña Woodward MD [facility] PLASTIC SURGERY [place], [place] [address] (Wo rk) 08/19/2022 Office Visit Podiatry Tom Titus DPM [place], [place] [address] (Wo rk) 09/08/2022 Office Visit Internal Medicine Janay Hay MD [facility] GENERAL INTERNAL MEDICINE [place], [place] [address] (Wo rk) 10/12/2059 Hospital Encounter Surgery Jim Hanley MD [facility] SPINE [place], [place] [address] (Wo rk) Scheduled Procedures Name [...] on filedocumented in this encounter Care Teams Arts Manager Relationship Specialty Start Date End Date Ernestina Nowak PA PCP - General Family Medicine 02/01/16 08/24/17 [address] [place] [address] documented as of this encounter
--- OUTSIDE RECORDS SUMMARY | 2022-07-12 00:54 | XMS_ITS | Encounter Summary ---
:1965 Author Organization [facility] Address [address] [address] Care Team Providers Name Role Phone Ernestina Nowak Primary Care Provider Encounter Details Date Type Department Care Team Description 08/11/2016 Telephone Neurology at [facility] Geeta Mcqueen APRN [facility] [place] [address] NEUROLOGY DEPT. [phone] [place], [place] [address] (Wo rk) Social History Tobacco [...] Telephone Encounter - Gaby Villatoro RN - 08/12/2016 2:08 PM EDT Patient has been scheduled for new patient appointment with Dr Diaz for evaluation of these symptoms. Telephone Encounter - Gaby Villatoro RN - 08/12/2016 12:11 PM EDT Spoke with patient and informed her that Geeta would like her to see a MD neurologist regarding these symptoms as they are not headache related. Patient informed me that she had a neurology administrative secretary on the other line and was scheduling this appointment. Telephone Encounter - Gaby Villatoro RN - 08/12/2016 9:08 AM EDT Message left requesting return call on home number and cell has no voicemail. Telephone Encounter - Geeta Mcqueen APRN - 08/12/2016 8:51 AM EDT Please keep appointment with me for botox. I would prefer she schedule a separate appointment with a neurologist (MD) to discuss memory issues and twitching. These symptoms are not related to her headaches. May be post traumatic, but the fact that they are increased are concerning. As I am not a board certified neurologist, it would be preferable that she be evaluated by a MD. I do not recommend she wait, however. If she cannot get here for both appointments, she should discuss with her PcP obtaining a local neurologist evaluation. Telephone Encounter - Gaby Villatoro RN - 08/11/2016 3:25 PM EDT Reason for Call: Patient is wanting to be seen sooner than her scheduled appointment with Geeta Mcqueen APRN 09/01/16. Patient Report: Patient states that she is having an increase in memory issues and difficulty speaking, involuntary movement, her head twitches, rocks from side to side. She was seen in urgent care when she was in [place] as she was having trouble recognizing people, difficulty talking, balance issues. 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 She returned from [place] on 07/30/16 and was hoping that Geeta might be able to see her on 08/18/16 as she has multiple appointments here at [facility] that day. The patient states that if Geeta can't fit her in that day, maybe there is a way to extend the appointment on 09/01, although it looks like this appointment is scheduled for 1 hour. Any Additional Information to Relay: Patient states that she was given a pamphlet with information about the disorder and she states that she has all of the symptoms listed. Plan/Intervention/Follow Up - Report forwarded to Geeta Mcqueen APRN for review and comment. Pt/caller aware they will be called back with input when available and to call back in the interim if additional questions or change arise before they hear back from this office. Pt/caller agreeable to thisplan. documented in this encounter Plan of Treatment Upcoming Encounters Date Type Specialty Care Team Description 08/06/2022 Office Visit Plastic Surgery Peña Woodward MD [facility] PLASTIC SURGERY [place], [place] [address] (Wo rk) 08/19/2022 Office Visit Podiatry Tom Titus DPM [place], [place] [address] (Wo rk) 09/08/2022 Office Visit Internal Medicine Janay Hay MD [facility] GENERAL INTERNAL MEDICINE [place], [place] [address] (Wo rk) 10/12/2059 Hospital Encounter Surgery Jim Hanley MD [facility] SPINE CENTER [place], [place] [address] (Wo rk) Scheduled Procedures Name [...] on filedocumented in this encounter Care Teams Hardboard Panel Printer Relationship Specialty Start Date End Date Ernestina Nowak PA PCP - General Family Medicine 02/01/16 08/24/17 [address] [place] [address] documented as of this encounter
--- OUTSIDE RECORDS SUMMARY | 2022-07-12 00:54 | XMS_ITS | Encounter Summary ---
:1965 Author Organization [facility] [place] [address] Care Team Providers Name Role Phone Ernestina Nowak Primary Care Provider Reason for Visit Reason Comments Psoriasis Encounter Details Date Type Department Care Team Description 08/18/2016 [facility], Psoriasis [address] [place] [address] [address] [place], [place] [address] (Wo rk) Social History Tobacco [...] encounter Progress Notes Akosua Turner LPN - 08/18/2016 11:30 AM EST DERMATOLOGY ESTABLISHED PATIENT CLINIC NOTE Date of service: 08/18/2016 Emmanuelle Bynum : 1965 Provider: Jacob Blair MD PROBLEM: recheck scalp psoriasis SKIN HISTORY: Seborrheic keratoses Psoriaisis HPI Emmanuelle Bynum is a 50 y.o. year old female. She is an established patient last seen on 01/28/16.Her psoriasis is getting worse in her scalp, which is about the only areas involved at this time. She likes to use Taclonex solution as that works well and clobetasol foam for recalcitrant areas. She is out of her medication. She has lost weight and no longer needs insulin - her diabetes appears control. She wants to continue to lose weight. ADR: Allergies Allergen Reactions ??? Codeine ??? Methadone Nausea And Vomiting CURRENT MEDICATIONS: Current Outpatient Prescriptions Medication Sig Dispense Refill ??? Lidocaine HCl (Bulk) 100 % Powd 2 %, Prilocaine (Bulk) Powd 2 %, Gabapentin (Bulk) 100 % Powd 3 %, Meloxicam (Bulk) 100 % Powd 0.1 % Apply topically 4 times daily. 400 g 5 ??? levothyroxine (SYNTHROID) 150 mcg Tablet Take 300 mcg by mouth daily. Indications: added to = 325 mcg daily ??? cyproheptadine (PERIACTIN) 4 mg Tablet Take 1 tablet by mouth nightly. 30 tablet 3 ??? levothyroxine (SYNTHROID) 25 mcg Tablet Take 25 mcg by mouth daily. 2 ??? oxybutynin (DITROPAN) 5 mg Tablet TK ONE TABLET PO BID UTD 3 ??? pravastatin (PRAVACHOL) 20 mg Tablet TK 1 T PO QD 5 ??? Estradiol 0.1 mg/24 hr Patch Weekly once a week. 12 ??? ibuprofen (ADVIL;MOTRIN) 800 mg Tablet TK ONE TABLET PO QD 3 ??? VALTREX 500 mg Tablet TK 1 T PO BID 1 ??? fluconazole (DIFLUCAN) 200 mg Tablet TK ONE TABLET PO QD PRN THEN SPACE TO A GOAL OF Q 4-7 DAYS 5 ??? losartan (COZAAR) 50 mg Tablet TK ONE TABLET PO QD 11 ??? carisoprodol (SOMA) 350 mg Tablet TK 1 T PO TID PRN 1 ??? HUMALOG KWIKPEN Insulin Pen INJECT 25 UNITS UNDER THE SKIN TID 2 ??? BD ALCOHOL SWABS Pads, Medicated USE DIRECTED QID 3 ??? NOVOTWIST 32 gauge x 1/5 Needle TEST 5 TIMES PER DAY 3 ??? IPRATROPIUM/ALBUTEROL SULFATE (COMBIVENT RESPIMAT INHL) Inhale into the lungs 3 times daily. ??? ALBUTEROL SULFATE (PROAIR HFA INHL) Inhale into the lungs as needed. ??? fluticasone-salmeterol (ADVAIR) 500-50 mcg/dose Disk with Device Inhale 1 puff into the lungs every 12 hours. ??? clobetasol (TEMOVATE) 0.05 % Solution Apply topically 2 times a day for worse areas of scalp psoriasis for 2 weeks only 50 mL 1 ??? betamethasone-calcipotriene (TACLONEX SCALP) 0.005-0.064 % Suspension Apply 3 times a week to scalp for psoriasis 120 g 2 ??? tiotropium (SPIRIVA) 18 mcg Capsule, w/Inhalation Device Inhale 18 mcg into the lungs daily. ??? RESTASIS 0.05 % Dropperette PLACE 1 DROP INTO BOTH EYES EVERY 12 HOURS 60 mL 11 ??? gabapentin (NEURONTIN) 600 mg Tablet Take 900 mg in the morning and 900 mg at noontime. Take 1200 mg at bedtime. 150 tablet 3 ??? Lidocaine HCl (Bulk) 100 % Powd 2 %, Prilocaine (Bulk) Powd 2 %, Gabapentin (Bulk) 100 % Powd 3 %, Meloxicam (Bulk) 100 % Powd 0.1 % Apply topically 4 times daily. 240 g 5 ??? Clobetasol-Emollient 0.05 % Foam Apply twice daily to scalp psoriasis on weekends as needed dispense 3 bottles please 100 g 3 ??? desonide (DESOWEN) 0.05 % Cream Apply twice daily with ketoconazole cream to corners of mouth asneeded 30 g 1 ??? ketoconazole (NIZORAL) 2 % Cream Apply twice daily with Desonide cream to corners of mouth as needed. 30 g 1 ??? metroNIDAZOLE (METROGEL) 0.75 % Gel Place vaginally as needed. ??? cetirizine (ZYRTEC) 10 mg Tablet Take 1 tablet by mouth daily as needed for Allergies. As neededfor itching. 60 tablet 3 ??? montelukast (SINGULAIR) 10 mg Tablet Take 10 mg by mouth nightly. Indications: Allergic Rhinitis ??? fluticasone (VERAMYST) 27.5 mcg/actuation [place], Suspension 2 sprays by Nasal route daily. Indications: Allergic Rhinitis ??? naproxen sodium (ANAPROX) 550 mg Tablet Take 1 tablet by mouth 2 times daily as needed. 30 tablet 6 ??? ondansetron (ZOFRAN) 4 mg tablet Take 4 mg by mouth every 8 hours as needed. ??? promethazine (PHENERGAN) 25 mg tablet Take 25 mg by mouth every 6 hours as needed. ??? ALPRAZolam (XANAX) 1 mg tablet Take 1 mg by mouth 4 times daily. ??? FLUoxetine (PROZAC) 40 mg capsule Take 80 mg by mouth daily. ??? Eflornithine 13.9 % Crea Apply topically 2 times daily. For excessive facial hair 30 g 2 ??? INSULIN DETEMIR (LEVEMIR FLEXPEN SUBQ) Inject 74 Units subcutaneously 2 times daily. ??? aripiprazole (ABILIFY) 30 mg tablet [...] H52.203, H52.4 ??? Bilateral dry eyes H04.123 ROS General: feeling well. Oriented X 3. Skin: denies other skin complaints EXAM General: NAD, pleasant, cooperative Skin: Significant skin findings: A. Occipital scalp - well defined erythematous plaques and papules with scale . No other areas noted. ASSESSMENT/PLAN: A. Scalp psoriasis - occiput - I discussed this condition with the patient and explored therapeutic options. She will continue toapply the clobetasol foam HS for 14 days to gain control then stop the clobetasol and use Taclonex giana HS - 2- 3 days a week when she can shampoo out in the morning Kenalog 5 mg/mL injected intralesionaly for worse areas, total 1.0 mL. - 5 areas treated - Discussedindication for this procedure and potential side effects including ulceration and skin atrophy. She is interested in the laser treatment for scalp psoriasis. RTC - 3-4 Months I am documenting this encounter acting as the scribe for and in the presence of Dr. Blair.: AKOSUA TURNER LPN I performed the above scribed service and agree with the accuracy of the documentation in this encounter. Jacob Blair MD Section of Dermatology [facility] documented in this encounter Plan of Treatment Upcoming Encounters Date Type Specialty Care Team Description 08/06/2022 Office Visit Plastic Surgery Peña Woodward MD [facility] PLASTIC SURGERY [place] [id number] (Wo josé luis) 08/19/2022 Office Visit Podiatry Tom Titus DPM [place], [place] [address] (Flores ordonez) 09/08/2022 Office Visit Internal Medicine Janay Hay MD [facility] GENERAL INTERNAL MEDICINE [place], [place] [address] (Wo rk) 10/12/2059 Hospital Encounter Surgery Jim Hanley MD [facility] SPINE CENTER [place], [place] [address] (Wo josé luis) Scheduled Procedures [...] Visit Diagnoses Diagnosis Scalp psoriasis Other psoriasis Psoriasis Other psoriasis documented in this encounter Administered Medications Inactive Administered Medications - up to 3 most recent administrations Medication Order MAR Action Action Date Dose Rate Site triamcinolone acetonide (KENALOG) Given 08/18/2016 11:47 AM EST 5 mg injection 5 mg 5 mg, Intra-Lesional, ONCE, 1 dose, On 08/18/16 at 1200, Routine documented in this encounter Care Teams Plant Technical Specialist Relationship Specialty Start Date End Date Ernestina Nowak PA PCP - General Family Medicine 02/01/16 08/24/17 [address] [place] [address] documented as of this encounter
--- OUTSIDE RECORDS SUMMARY | 2022-07-12 00:54 | XMS_ITS | Encounter Summary ---
:1965 Author Organization [facility] [place] [address] Care Team Providers Name Role Phone Ernestina Nowak Primary Care Provider Encounter Details Date Type Department Care Team Description 07/04/2016 Orders Only Pain Management at [facility] [place], [place] [address] Social History Tobacco Use Types Packs/Day [...] [facility] PLASTIC SURGERY [place] [id number] (Wo rk) 08/19/2022 Office Visit Podiatry Tom Titus DPM [place] [id number] (Wo rk) 09/08/2022 Office Visit Internal Medicine Janay Hay MD [facility] GENERAL INTERNAL MEDICINE [place] [id number] (Wo rk) 10/12/2059 Hospital Encounter Surgery Jim Hanley MD [facility] SPINE CENTER [place] [id number] (Wo rk) Scheduled Procedures Name Priority Associated [...] on filedocumented in this encounter Care Teams Mud Trucker Relationship Specialty Start Date End Date Ernestina Nowak PA PCP - General Family Medicine 02/01/16 08/24/17 [address] [place] [address] documented as of this encounter
--- OUTSIDE RECORDS SUMMARY | 2022-07-12 00:54 | XMS_ITS | Encounter Summary ---
:1965 Author Organization [facility] Address [facility] [place] [address] Care Team Providers Name Role Phone Ernestina Nowak Primary Care Provider Reason for Visit Reason Onset Date Comments Results 02/11/2017 Encounter Details Date Type Department Care Team Description 02/11/2017 Telephone Neurology at [facility] Geeta Mcqueen APRN Results [facility] Kevin castañeda [facility] [place] [address] NEUROLOGY DEPT. [phone] [place], [place] [address] (Wo rk) Social History Tobacco [...] this encounter Miscellaneous Notes Telephone Encounter - Geeta Mcqueen APRN - 02/12/2017 3:24 PM EDT Recommended follow up to discuss SHOEMAKER's and neuropsych results. Patient scheduled for March 2017. No urgent issues. documented in this encounter Plan of Treatment Upcoming Encounters Date Type Specialty Care Team Description 08/06/2022 Office Visit Plastic Surgery Peña Woodward MD [facility] PLASTIC SURGERY [place], [place] [address] (Flores ordonez) 08/19/2022 Office Visit Podiatry Tom Titus DPM [place], [place] [address] (Flores ordonez) 09/08/2022 Office Visit Internal Medicine Janay Hay MD [facility] GENERAL INTERNAL MEDICINE [place], [place] [address] ( josé luis) 10/12/2059 Hospital Encounter Surgery Jim Hanley MD [facility] SPINE CENTER [place], [place] [address] (Wo rk) Scheduled Procedures Name Priority Associated [...] on filedocumented in this encounter Care Teams Recreation Coordinator Relationship Specialty Start Date End Date Ernestina Nowak PA PCP - General Family Medicine 02/01/16 08/24/17 [address] [place] [address] documented as of this encounter
--- OUTSIDE RECORDS SUMMARY | 2022-07-12 00:54 | XMS_ITS | Encounter Summary ---
:1965 Author Organization [facility] Address [facility] [place] [address] Care Team Providers Name Role Phone Ernestina Nowak Primary Care Provider Encounter Details Date Type Department Care Team Description 01/30/2017 Orders Only Orthopaedics at [facility] Dash Snow MD Bone lesion [facility] [address] [facility] [address] ORTHOPAEDIC SURGERY [phone] [place] [id number] (Wo rk) Social History Tobacco Use Types [...] MD [facility] PLASTIC SURGERY [place] [id number] (Wo rk) 08/19/2022 Office Visit Podiatry Tom Titus DPM [place], [place] [address] (Wo rk) 09/08/2022 Office Visit Internal Medicine Janay Hay MD [facility] GENERAL INTERNAL MEDICINE [place], [place] [address] (Wo rk) 10/12/2059 Hospital Encounter Surgery Jim Hanley MD [facility] SPINE CENTER [place], [place] [address] (Wo rk) Scheduled Procedures Name [...] documented as of this encounter Results XR Shoulder Left (Generic) (02/10/2017 12:46 PM EDT) Anatomical Region Laterality Modality Shoulder Left Digital Radiography Specimen (Source) Anatomical Location Collection Method / Collectio n Time Received Time / Laterality Volume Impressions 02/10/2017 2:26 PM EDT 1. Findings of calcific tendinopathy of the rotator cuff. 2. There is a narrow zone of transition and mild/equivocal chondroid matrix within the humeral head, consider enchon droma. This correlates with the findings of outside MRI. Narrative 02/10/2017 2:26 PM EDT EXAMINATION: XR SHOULDER LEFT (GENERIC) CLINICAL HISTORY: left humeral lesion & shoulder pain TECHNIQUE: Frontal, inlet, transscapular , and axillary views of the left shoulder. COMPARISON: Left shoulder MRI of 12/27/19 17. FINDINGS: The acromioclavicular joint with chronic change. Calcific tendinopathy is noted at the expected insertion of the rotator cuff. No acute fracture or dislocation. The known proximal humeral head/neck matthew ent lesion noted on shoulder MRI is again appreciated, with narrow zone of t ransition, mild chondroid matrix, without evidence of pathologic fracture or periosteal reaction. There is no evidence of bony expansion. Procedure Note Heladio Dukes MD - 02/10/2017Format ting of this note might be different from the original. EXAMINATION: XR SHOULDER LEFT (GENERIC) CLINICAL HISTORY: left humeral lesion & shoulder pain TECHNIQUE: Frontal, inlet, transscapular , and axillary views of the left shoulder. COMPARISON: Left shoulder MRI of 12/27/19 17. FINDINGS: The acromioclavicular joint with chronic change. Calcific tendinopathy is noted at the expected insertion of the rotator cuff. No acute fracture or dislocation. The known proximal humeral head/neck matthew ent lesion noted on shoulder MRI is again appreciated, with narrow zone of t ransition, mild chondroid matrix, without evidence of pathologic fracture or periosteal reaction. There is no evidence of bony expansion. IMPRESSION 1. Findings of calcific tendinopathy of the rotator cuff. 2. There is a narrow zone of transition and mild/equivocal chondroid matrix within the humeral head, consider enchon droma. This correlates with the findings of outside MRI. Dash Snow MD IMG DX ORDERABLES documented in this encounter Visit Diagnoses Diagnosis Bone lesion Disorder of bone and cartilage, unspecif ied Bone lesion Disorder of bone and cartilage, unspecif ied documented in this encounter Care Teams Sql Tech Relationship Specialty Start Date End Date Ernestina Nowak PA PCP - General Family Medicine 02/01/16 08/24/17 [address] [place] [address] documented as of this encounter
--- OUTSIDE RECORDS SUMMARY | 2022-07-12 00:54 | XMS_ITS | Encounter Summary ---
:1965 Author Organization [facility] [address] [place] [address] Care Team Providers Name Role Phone Ernestina Nowak Primary Care Provider Encounter Details Date Type Department Care Team Description 12/26/2016 Hospital Encounter Radiology Library at [place], Pradeep Suarez [facility] [place] [address] ORTHOPAEDIC SURGERY [phone] [place] [id number] (Wo rk) Social History Tobacco Use Types [...] by Nasal 0 27.5 mcg/actuation route daily. [place], Indications: Allergic SuspensionIndications: Rhinitis allergic rhinitis cycloSPORINE Place 1 drop into both 60 vial 11 12/18/2016 10/20/2017 (RESTASIS) 0.05 % eyes every 12 hours. DropperetteIndications : Bilateral dry eyes betamethasone-calcipot Apply 3 times a week 120 g 2 04/201602/16/2017 riene (TACLONEX SCALP) to scalp for psoriasis 0.005-0.064 % SuspensionIndications: Psoriasis Clobetasol-Emollient Apply twice daily to 200 g 3 08/1802/16/2017 0.05 % Foam scalp psoriasis on weekends as needed dispense 3 bottles please Lidocaine HCl (Bulk) Apply topically 4 400 g 5 01/28/20 16 02/10/2017 100 % Powd 2 %, times daily. Prilocaine (Bulk) Powd 2 %, Gabapentin (Bulk) 100 % Powd 3 %, Meloxicam (Bulk) 100 % Powd 0.1 % levothyroxine Take 300 mcg by mouth 0 04/20/2018 (SYNTHROID) 150 mcg daily. Indications: TabletIndications: added to = 325 mcg added to = 325 mcg daily daily cyproheptadine Take 1 tablet by mouth 30 tablet 3 6 02/10/2017 (PERIACTIN) 4 mg nightly. TabletIndications: Post concussive syndrome, Migraine with aura and without status migrainosus, not intractable, Vertigo, Post-traumatic headache, not intractable, unspecified chronicity pattern levothyroxine Take 25 mcg by mouth 2 [...] 03/17/201603/24 (ADVIL;MOTRIN) 800 mg daily prn Tablet VALTREX 500 mg Tablet TK 1 T PO BID 1 04/19/2016 02/10/2017 fluconazole (DIFLUCAN) TK ONE TABLET PO QD 02/201608/25/2017 200 mg Tablet PRN THEN SPACE TO A GOAL OF Q 4-7 DAYS losartan (COZAAR) 50 TK ONE TABLET PO QD 11 201504/20/2018 mg Tablet carisoprodol (SOMA) TK 1 T PO TID PRN 1 6 08/03/2018 350 mg Tablet HUMALOG KWIKPEN INJECT 25 UNITS UNDER 2 6 02/10/2017 Insulin Pen THE SKIN TID BD ALCOHOL SWABS Pads, USE DIRECTED QID 3 03/201608/25/2017 Medicated NOVOTWIST 32 gauge x TEST 5 TIMES PER DAY 3 03/1708/25/2017 1/5 Needle IPRATROPIUM/ALBUTEROL Inhale into the lungs 0 08/25/2017 SULFATE (COMBIVENT 3 times daily. RESPIMAT INHL) Reported on 02/10/2017 ALBUTEROL SULFATE Inhale into the lungs 0 04/20/2018 (PROAIR HFA INHL) as needed. fluticasone-salmeterol Inhale 1 puff into the 0 08/25/2017 (ADVAIR) 500-50 lungs every 12 hours. mcg/dose Disk with Device clobetasol (TEMOVATE) Apply topically 2 50 mL 1 01/27/2 016 12/15/2017 0.05 % times a day for worse SolutionIndications: areas of scalp Psoriasis psoriasis for 2 weeks only tiotropium (SPIRIVA) Inhale 18 mcg into the 0 03/24/2018 18 mcg Capsule, lungs daily as needed. w/Inhalation Device gabapentin (NEURONTIN) Take 900 mg in the 150 tablet 3 10/1607/15/2019 600 mg morning and 900 mg at TabletIndications: noontime. Take 1200 mg Headache(784.0) at bedtime. Lidocaine HCl (Bulk) Apply topically 4 240 g 5 08/01/20 15 02/10/2017 100 % Powd 2 %, times daily. Prilocaine (Bulk) Powd 2 %, Gabapentin (Bulk) 100 % Powd 3 %, Meloxicam (Bulk) 100 % Powd 0.1 % desonide (DESOWEN) Apply twice daily with 30 g 1 07/1008/25/2017 0.05 % Cream ketoconazole cream to corners of mouth as needed ketoconazole (NIZORAL) Apply twice daily with 30 g 1 0 07/10/2015 08/25/2017 2 % Cream Desonide cream to corners of mouth as needed. metroNIDAZOLE Place vaginally as 0 11/2016 (METROGEL) 0.75 % Gel needed. cetirizine (ZYRTEC) 10 Take 1 tablet by mouth 60 tablet 3 0 03/06/2015 08/25/2017 mg TabletIndications: daily as needed for Cervical radicular Allergies. As needed pain for itching. montelukast Take 10 mg by mouth 0 03/12 (SINGULAIR) 10 mg nightly. Indications: TabletIndications: Allergic Rhinitis allergic rhinitis naproxen sodium Take 1 tablet by mouth 30 tablet 6 01/17/20 15 02/10/2017 (ANAPROX) 550 mg 2 times daily as TabletIndications: needed. Chronic migraine without aura with status migrainosus, not intractable, Chronic migraine, Cervicogenic headache ondansetron (ZOFRAN) 4 Take 4 mg by mouth 0 02/10/2017 mg tablet every 8 hours as needed. promethazine Take 25 mg by mouth 0 08/2021 (PHENERGAN) 25 mg every 6 hours as tablet needed. ALPRAZolam (XANAX) 1 Take 1 mg by mouth 3 0 03/14/2022 mg tablet times daily as needed. FLUoxetine (PROZAC) 40 Take 80 mg by mouth 0 07/04/2020 mg capsule daily. Eflornithine 13.9 % Apply topically 2 30 g 2 4 02/10/2017 CreaIndications: times daily. For Hirsutism excessive facial hair INSULIN DETEMIR Inject 74 Units 0 08/12 [...] [facility] PLASTIC SURGERY [place] [phone] ([facility]) 08/19/2022 Office Visit Podiatry Tom Titus DPM [place] [phone] ([facility]) 09/08/2022 Office Visit Internal Medicine Janay Hay MD [facility] GENERAL INTERNAL MEDICINE [place], [place] [address] ( rk) 10/12/2059 Hospital Encounter Surgery Jim Hanley MD [facility] SPINE CENTER [place], [place] [address] (Wo josé luis) Scheduled Procedures [...] Procedure Name Priority Date/Time Associated Diagnosis Comme [facility] FILM LIBRARY Routine 12/26/2016 12:00 AM Pain Results for this STORAGE ONLY MR EDT procedure ar e in SHOULDER the results section. documented in this encounter Results Film Library- Storage Only MR Shoulder (12/26/2016 12:00 AM EDT) Specimen (Source) Anatomical Location Collection Method / Collectio n Time Received Time / Laterality Volume Narrative [facility] - 01/28/2017 4:12 PM EDT This exam is for storage only and is aut o-finalizing. Dash Snow MD IMAniceto FILM LIBRARY ORDERABLES Performing Organization Address City/State/ZIP Code Phon e Number [facility] [place], [place] documented in this encounter Visit Diagnoses Diagnosis Pain Generalized pain documented in this encounter Care Teams Mems Process Engineer Relationship Specialty Start Date End Date Ernestina Nowak PA PCP - General Family Medicine 02/01/16 08/24/[address] [place] [address] documented as of this encounter
--- OUTSIDE RECORDS SUMMARY | 2022-07-12 00:54 | XMS_ITS | Encounter Summary ---
:1965 Author Organization [facility] Address [facility] [place] [address] Care Team Providers Name Role Phone Ernestina Nowak Primary Care Provider Reason for Visit Reason Onset Date Comments Other 09/16/2016 Encounter Details Date Type Department Care Team Description 09/16/2016 Telephone Neurology at [facility] [place] Geeta Mcqueen APRN Other [facility] Kevin castañeda [facility] [place] [address] NEUROLOGY DEPT. [phone] [place] [id number] (Wo rk) Social History Tobacco Use Types [...] this encounter Miscellaneous Notes Telephone Encounter - Kaylee Bowles - 09/17/2016 7:16 AM EST Error documented in this encounter Plan of Treatment Upcoming Encounters Date Type Specialty Care Team Description 08/06/2022 Office Visit Plastic Surgery Peña Woodward MD [facility] PLASTIC SURGERY [place] [phone] ( josé luis) 08/19/2022 Office Visit Podiatry Tom Titus DPM [place], [place] 0[address] ( josé luis) 09/08/2022 Office Visit Internal Medicine Janay Hay MD [facility] GENERAL INTERNAL MEDICINE [place], [place] [address] (Flores ordonez) 10/12/2059 Hospital Encounter Surgery Jim Hanley MD [facility] SPINE CENTER [place], [place] [address] (Flores ordonez) Scheduled Procedures Name [...] on filedocumented in this encounter Care Teams Test Deskman Relationship Specialty Start Date End Date Ernestina Nowak PA PCP - General Family Medicine 02/01/16 08/24/17 [address] [place] [address] documented as of this encounter
--- OUTSIDE RECORDS SUMMARY | 2022-07-12 00:54 | XMS_ITS | Encounter Summary ---
:1965 Author Organization [facility] [place] [address] Care Team Providers Name Role Phone Ernestina Nowak Primary Care Provider Encounter Details Date Type Department Care Team Description 02/10/2017 Hospital En[place] [facility] [place] Dash Snow, Bone lesion [address] [place] [address] [place] [address] [facility] [phone] ORTHOPAEDIC SURG [place], [place] [address] (Wo rk) Social History Tobacco [...] by Nasal 0 27.5 mcg/actuation route daily. [place], Indications: Allergic SuspensionIndications: Rhinitis allergic rhinitis cycloSPORINE [...] weekends as needed dispense 3 bottles please levothyroxine Take 300 mcg by mouth 0 [...] MD [facility] PLASTIC SURGERY [place], [place] [address] (Wo rk) 08/19/2022 Office Visit Podiatry Tom Titus DPM [place], [place] 0[address] (Wo rk) 09/08/2022 Office Visit Internal Medicine Janay Hay MD [facility] GENERAL INTERNAL MEDICINE [place], [place] [address] (Wo rk) 10/12/2059 Hospital Encounter Surgery Jim Hanley MD [facility] SPINE CENTER [place], [place] 0[address] (Wo rk) Scheduled Procedures Name [...] Associated Diagnosis Comme nts XR SHOULDER LEFT Routine 02/10/2017 12:46 PM Bone lesion Resu lts for this EDT procedure are i n [...] left shoulder. COMPARISON: Left shoulder MRI of 12/27/19. FINDINGS: The acromioclavicular joint with chronic change. [...] left shoulder. COMPARISON: Left shoulder MRI of 12/27/19. FINDINGS: The acromioclavicular joint with chronic change. [...] ied documented in this encounter Care Teams Detective Investigator Relationship Specialty Start Date End Date Ernestina Nowak PA PCP - General Family Medicine 02/01/16 08/24/17 [address] [place] [address] documented as of this encounter
--- OUTSIDE RECORDS SUMMARY | 2022-07-12 00:54 | XMS_ITS | Encounter Summary ---
:1965 Author Organization [facility] [place] [address] Care Team Providers Name Role Phone Ernestina Nowak Primary Care Provider Encounter Details Date Type Department Care Team Description 05/14/2016 Hospital Encounter Non-Invasive Cardiology Lab [facility] Kevin castañ[place] [address] Social History Tobacco Use Types Packs/Day [...] by Nasal 0 27.5 mcg/actuation route daily. [place], Indications: Allergic SuspensionIndications: Rhinitis allergic rhinitis Lidocaine HCl (Bulk) Apply topically 4 400 [...] scalp Psoriasis psoriasis for 2 weeks only betamethasone-calcipot Apply 3 times a week 120 g 2 08/18/2016 riene (TACLONEX SCALP) to scalp for psoriasis 0.005-0.064 % SuspensionIndications: Psoriasis tiotropium (SPIRIVA) Inhale 18 mcg into the 0 03/24/2018 18 mcg Capsule, lungs daily as needed. w/Inhalation Device RESTASIS 0.05 % PLACE 1 DROP INTO BOTH 60 mL 11 12/05/19 16 12/18/2016 DropperetteIndications EYES EVERY 12 HOURS : Dry eye, bilateral gabapentin (NEURONTIN) Take 900 mg in the [...] Meloxicam (Bulk) 100 % Powd 0.1 % Clobetasol-Emollient Apply twice daily to 100 g 3 07/1008/18/2016 0.05 % Foam scalp psoriasis on weekends as needed dispense 3 bottles please desonide (DESOWEN) Apply twice daily with 30 [...] migrainosus, not intractable, Chronic migraine, Cervicogenic headache naratriptan (AMERGE) Take 1 tablet by mouth 60 tablet 5 06/25/2016 2.5 mg twice daily as a TabletIndications: preventive for Chronic migraine, migraines. Vertigo, Cervicogenic headache ondansetron (ZOFRAN) 4 Take 4 [...] [facility] PLASTIC SURGERY [place], [place] [address] (Wo rk) 08/19/2022 Office Visit Podiatry Tom Titus DPM [place], [place] 0[address] (Wo rk) 09/08/2022 Office Visit Internal Medicine Janay Hay MD [facility] GENERAL INTERNAL MEDICINE [place], [place] [address] (Wo rk) 10/12/2059 Hospital Encounter Surgery Jim Hanley MD [facility] SPINE CENTER [place], [place] [address] (Wo rk) Scheduled Procedures Name [...] on filedocumented in this encounter Care Teams Orchid Worker Relationship Specialty Start Date End Date Ernestina Nowak PA PCP - General Family Medicine 02/01/16 08/24/[address] [place] [address] documented as of this encounter
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
--- OUTSIDE RECORDS SUMMARY | 2022-07-12 00:54 | XMS_ITS | Encounter Summary ---
:1965 Author Organization [facility] [place] [address] Care Team Providers Name Role Phone Ernestina Nowak Primary Care Provider Reason for Referral High Dollar Medication (Routine) - Closed Specialty Diagnoses / Procedures Referred By Contact Refer red To Contact Neurology Diagnoses Post-traumatic headache, not intractable, unspecified chronicity pattern Geeta Mcqueen APRN [facility] Neu[facility] 3c Procedures Auth Request for Medication [facility] [place] [address] [place] [address] Referral ID Status Reason Start Date Expiration Date Visits V isits Requested Authorized [id number] Closed Consult, 08/14/2016 08/14/2017 4 4 Test & Treat Encounter Details Date Type Department Care Team Description 08/14/2016 Orders Only Neurology at [facility] [place] Geeta Mcqueen, Post-traumatic [facility] PASTE UP WORKER headache, not Drive [facility], [place] [address] unspecified chronicity [phone] NEUR[address]PT. pattern [place], [place] [address] Social History Tobacco Use Types [...] Woodward MD [facility] PLASTIC SURGERY [place], [place] [address] (Flores ordonez) 08/19/2022 Office Visit Podiatry Tom Titus DPM [place], [place] [address] (Flores ordonez) 09/08/2022 Office Visit Internal Medicine Janay Hay MD [facility] GENERAL INTERNAL MEDICINE [place], [place] [address] (Wo rk) 10/12/2059 Hospital Encounter Surgery Jim Hanley MD [facility] SPINE CENTER [place], [place] [address] (Wo rk) Scheduled Procedures Name [...] headache, not intractable , unspecified chronicity pattern documented in this encounter Care Teams Food Preparation Worker Relationship Specialty Start Date End Date Ernestina Nowak PA PCP - General Family Medicine 02/01/16 08/24/17 [address] [place] [address] documented as of this encounter
--- OUTSIDE RECORDS SUMMARY | 2022-07-12 00:54 | XMS_ITS | Encounter Summary ---
:1965 Author Organization [facility] Address [address] [place] [address] Care Team Providers Name Role Phone Ernestina Nowak Primary Care Provider Encounter Details Date Type Department Care Team Description 01/01/2017 Telephone Dermatology at [facility] Rusty Perez, [address] [place] [address] Social History Tobacco Use Types Packs/Day [...] Telephone Encounter - Rusty Perez LPN - 01/01/2017 9:53 AM EDT Have called patient mulitple times to confirm appointments for xtrac laser treatments. Have been unable to reach patient. Home phone number not in service. Cell phone number rings, but no voicemail is set up. Unable to leave message. Patient has no showed for appointment last week and today. Will call again to see if she does not want to start treatments anymore. RUSTY PEREZ LPN documented in this encounter Plan of Treatment Upcoming Encounters Date Type Specialty Care Team Description 08/06/2022 Office Visit Plastic Surgery Peña Woodward MD [facility] PLASTIC SURGERY [place], [place] [address] (Flores ordonez) 08/19/2022 Office Visit Podiatry Tom Titus DPM [place], [place] [address] (Flores ordonez) 09/08/2022 Office Visit Internal Medicine Janay Hay MD [facility] GENERAL INTERNAL MEDICINE [place], [place] [address] (Flores ordonez) 10/12/2059 Hospital Encounter Surgery Jim Hanley MD [facility] SPINE CENTER [place], [place] [address] (Wo rk) Scheduled Procedures Name [...] on filedocumented in this encounter Care Teams Health Policy Manager Relationship Specialty Start Date End Date Ernestina Nowak PA PCP - General Family Medicine 02/01/16 08/24/17 [address] [place] [address] documented as of this encounter
--- OUTSIDE RECORDS SUMMARY | 2022-07-12 00:54 | XMS_ITS | Encounter Summary ---
:1965 Author Organization [facility] Address [address] [place] [address] Care Team Providers Name Role Phone Ernestina Nowak Primary Care Provider Encounter Details Date Type Department Care Team Description 06/11/2016 Hospital Encounter Radiology Library at [facility], [address] Malvin Fernández [place] [address] Social History Tobacco Use Types Packs/Day [...] by Nasal 0 27.5 mcg/actuation route daily. [place], Indications: Allergic SuspensionIndications: Rhinitis allergic rhinitis Lidocaine [...] Peña Woodward MD [facility] PLASTIC SURGERY [place], [place] [address] (Wo rk) 08/19/2022 Office Visit Podiatry Tom Titus DPM [place], [place] [address] (Wo rk) 09/08/2022 Office Visit Internal Medicine Janay Hay MD [facility] GENERAL INTERNAL MEDICINE [place], [place] [address] (Wo rk) 10/12/2059 Hospital Encounter Surgery Jim Hanley MD [facility] SPINE CENTER [place], [place] [address] (Wo rk) Scheduled Procedures Name [...] Procedure Name Priority Date/Time Associated Diagnosis [facility] FILM LIBRARY Routine 06/11/2016 12:00 AM Pain Results for this STORAGE ONLY CT EDT procedure ar e in HEAD the results section. documented in this encounter Results Film Library- Storage Only CT Head (06/11/2016 12:00 AM EDT) Specimen (Source) Anatomical Location Collection Method / Collectio n Time Received Time / Laterality Volume Narrative [facility] - 07/19/2016 3:58 PM EDT This exam is for storage only and is aut o-finalizing. Dr Malvin Almanza Aniceto FILM LIBRARY ORDERABLES Performing Organization Address City/State/ZIP Code Phon e Number [place], [place] documented in this encounter Visit Diagnoses Diagnosis Pain Generalized pain documented in this encounter Care Teams Rotary Operator Relationship Specialty Start Date End Date Ernestina Nowak PA PCP - General Family Medicine 02/01/16 08/24/17 [address] [place] [address] documented as of this encounter
--- OUTSIDE RECORDS SUMMARY | 2022-07-12 00:54 | XMS_ITS | Encounter Summary ---
:1965 Author Organization [facility] [place] [address] Care Team Providers Name Role Phone Ernestina Nowak Primary Care Provider Encounter Details Date Type Department Care Team Description 02/16/2017 Telephone Pain Management at Peña Escobedo, RN [facility] [place] [address] Social History Tobacco Use Types Packs/Day [...] encounter Miscellaneous Notes Telephone Encounter - Peña Toribio RN - 02/16/2017 11:03 AM EDT Attempted to call Emmanuelle related to her request for pain medications from this clinic but her voice mail box is not functioning. Per the report received by this writer producer, she is disappointed that her procedure was cancelled due to unforseen circumstances. After discussion with the attending physician,patient should be informed, if and when she calls back, that this clinic is sorry that her appointment was cancelled but she will not received opioids from this office. The planned procedure is the planned course of care. documented in this encounter Plan of Treatment Upcoming Encounters Date Type Specialty Care Team Description 08/06/2022 Office Visit Plastic Surgery Peña Woodward MD [facility] PLASTIC SURGERY [place] [id number] (Flores ordonez) 08/19/2022 Office Visit Podiatry Tom Titus DPM [place], [place] [address] (Fl[place] ordonez) 09/08/2022 Office Visit Internal Medicine Janay Hay MD [facility] GENERAL INTERNAL MEDICINE [place], [place] [address] (Flores ordonez) 10/12/2059 Hospital Encounter Surgery Jim Hanley MD [facility] SPINE CENTER [place], [place] [address] (Wo rk) Scheduled Procedures Name [...] in this encounter Care Teams Sheet Metal Smith Relationship Specialty Start Date End Date Ernestina Nowak PA PCP - General Family Medicine 02/01/16 08/24/17 [address] [place] [address] documented as of this encounter
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
--- OUTSIDE RECORDS SUMMARY | 2022-07-12 00:55 | XMS_ITS | Encounter Summary ---
:1965 Author Organization [facility] Address [facility] [address] [place] [address] Care Team Providers Name Role Phone Tom Hay MD Primary Care Provider Reason for Visit Reason Comments Medication Refill Encounter Details Date Type Department Care Team Description 04/15/2016 Refill Neurology at [facility] Geeta Mcqueen APRN Headache(784.0) [facility] Kevin castañeda [facility] [place] [address] NEUROLOGY DEPT. [phone] [place] [id number] (Wo rk) Social History Tobacco Use Types [...] Telephone Encounter - Gaby Villatoro RN - 04/22/2016 11:04 AM EDT Attempted to contact patient at only number listed in her chart. This number belongs to a business and they do not know any Guerda there. Will wait for patient to contact the office regarding this prescription. documented in this encounter Plan of Treatment Upcoming Encounters Date Type Specialty Care Team Description 08/06/2022 Office Visit Plastic Surgery Peña Woodward MD [facility] PLASTIC SURGERY [place] [id number] (Flores ordonez) 08/19/2022 Office Visit Podiatry Tom Titus DPM [place], [place] [address] (Flores ordonez) 09/08/2022 Office Visit Internal Medicine Janay Hay MD [facility] GENERAL INTERNAL MEDICINE [place], [place] [address] (Flores ordonez) 10/12/2059 Hospital Encounter Surgery Jim Hanley MD [facility] ER DR SPINE CENTER [place], [place] [address] (Wo rk) Scheduled Procedures [...] documented as of this encounter Care Teams Motion Pictures Cartoonist Relationship Specialty Start Date End Date Tom Hay MD PCP - General General Internal Medicine 09/15/18 [facility] GENERAL INTERNAL [place] [address] documented as of this encounter
--- OUTSIDE RECORDS SUMMARY | 2022-07-12 00:55 | XMS_ITS | Encounter Summary ---
:1965 Author Organization [facility] [place] [address] Care Team Providers Name Role Phone Peña Sherman MD Primary Care Provider Reason for Referral Diagnostic Test (Routine) - Closed Specialty Diagnoses / Procedures Referred By Contact Refer red To Contact Radiology Diagnoses Neural foraminal stenosis of cervical spine Protrusion of cervical intervertebral disc Blunt trauma of neck, Geeta Newton APRN [facility] Rad Ct Scan Procedures CT Cervical Spine Wo Contrast CT Neck Wo Contrast [facility] [place] [address] [place] [address] Referral ID Status Reason Start Date Expiration Date Visits V isits Requested Authorized [id number] Closed Specialty 11/26/2015 11/25/2016 1 1 Service Requested Reason for Visit Diagnostic Test (Routine) - Closed Specialty Diagnoses / Procedures Referred By Contact Refer red To Contact Radiology Diagnoses Neural foraminal stenosis of cervical spine Protrusion of cervical intervertebral disc Blunt trauma of neck, Geeta Newton APRN [facility] Rad Ct Scan Procedures CT Cervical Spine Wo Contrast CT Neck Wo Contrast [facility] [place] [address] [place] [address] Referral ID Status Reason Start Date Expiration Date Visits V isits Requested Authorized [id number] Closed Specialty 11/26/2015 11/25/2016 1 1 Service Requested Encounter Details Date Type Department Care Team Description 11/28/[address] [place] [facility] [place], Ernie N, Neural foraminal stenosis of cervical spine; [facility] Protrusion of cervical intervertebral di sc; [facility] Blunt trauma of neck, eliael emmett [place], [place] CENTER [address] NEUROLOGY DEPT. [phone] [place] [address] Social History Tobacco Use Types Packs/Day Years [...] by Nasal 0 27.5 mcg/actuation route daily. [place], Indications: Allergic SuspensionIndications: Rhinitis allergic rhinitis gabapentin (NEURONTIN) Take 900 mg in the [...] Meloxicam (Bulk) 100 % Powd 0.1 % clobetasol (TEMOVATE) Apply topically 2 50 mL 1 015 01/28/2016 0.05 % times a day for worse SolutionIndications: areas of scalp Psoriasis psoriasis for 2 weeks only betamethasone-calcipot Apply 3 times a week 120 g 2 10/201401/28/2016 riene (TACLONEX SCALP) to scalp for psoriasis 0.005-0.064 % SuspensionIndications: Psoriasis Clobetasol-Emollient Apply twice daily to 100 g [...] migrainosus, not intractable, Chronic migraine, Cervicogenic headache methocarbamol Take 2 tablets by 50 tablet 6 01/16/2015 07/0 10/2015 (ROBAXIN-750) 750 mg mouth 3 times daily as TabletIndications: needed. Chronic migraine without aura with status migrainosus, not intractable, Cervicogenic headache, Chronic migraine Meclizine 50 mg Tablet Take 1 tablet by mouth 0 05/14/2016 daily. naratriptan (AMERGE) Take 1 tablet by mouth 60 tablet 5 06/25/2016 2.5 mg twice daily as a TabletIndications: preventive for Chronic migraine, migraines. Vertigo, Cervicogenic headache pregabalin (LYRICA) 50 Take 1 capsule by 90 tablet 0 201405/14/2016 mg Capsule mouth [address] Place 1 drop into both 60 vial 11 07/17/2014 12/05/2015 (RESTASIS) 0.05 % eyes every 12 hours. DropperetteIndications : MGD (meibomian gland dysfunction) ondansetron (ZOFRAN) 4 Take 4 mg by [...] subcutaneously 2 times daily. Reported on 02/10/2017 insulin aspart Inject 74 Units 0 05/14 (NOVOLOG) 100 unit/mL subcutaneously 2 times pen injection daily. Sliding scale ARIPiprazole (Abilify) Take 30 mg by mouth 0 03/14/2022 30 mg Tablet daily. esomeprazole (NEXIUM) Take 40 mg by mouth 2 0 09/201110/29/2018 40 mg capsule times daily. documented as of this encounter Plan of Treatment Upcoming Encounters Date Type Specialty Care Team Description 08/06/2022 Office Visit Plastic Surgery Peña Woodward MD [facility] PLASTIC SURGERY [place], [place] [address] (Wo rk) 08/19/2022 Office Visit Podiatry Tom Titus DPM [place], [place] [address] (Wo rk) 09/08/2022 Office Visit Internal Medicine Janay Hay MD [facility] GENERAL INTERNAL MEDICINE [place], [place] [address] (Wo rk) 10/12/2059 Hospital Encounter Surgery Jim Hanley MD [facility] SPINE CENTER [place], [place] [address] (Wo rk) Scheduled Procedures Name [...] Diagnosis Comme nts CT CERVICAL SPINE Routine 11/28/2015 9:08 AM Neural foraminal Results for this WO CONTRAST EST stenosis of cervical procedu re are in spine the results Protrusion of cervical secti on. intervertebral d isc Blunt trauma of neck, sequela documented in this encounter Results CT Cervical Spine Wo Contrast (11/28/2015 9:08 AM EST) Anatomical Region Laterality Modality C-spine Computed Tomography Specimen (Source) Anatomical Location Collection Method / Collectio n Time Received Time / Laterality Volume Impressions 01/14/2016 9:47 AM EDT IMPRESSION: 1. ??No cervical spine fracture or traum atic malalignment. 2. ??Unchanged degenerative disc disease , most prominent at C5-6, C6-7 and C7-T1 is better characterized on a prior MRI o f the cervical spine. I have personally reviewed the image(s) and the residents interpretation and agree with the findings, Rip Abraham ll at 01/14/2016 9:47 AM Narrative 01/14/2016 9:47 AM EDT EXAMINATION: CT CERVICAL SPINE WO CONTRAST CLINICAL HISTORY: There is mild edema wi thin the C5 and C6 which may represent a microtrabecular fracture. Please evaluat e for a fracture in this area TECHNIQUE: Noncontrast CT cervical spine COMPARISON: MRI lumbar spine dated [address] cervical spine dated 2015 FINDINGS: Alignment of the cervical spine spine is unchanged including a few millimeters of anterolisthesis of C3 relative to C4. No traumatic malalignment. The prevertebral soft tissues are normal in appearance. Vertebral body heights appear maintained. As on prior imaging, there is disc height loss at C5-6, C6-7 and to a lesser degree at C7-T1 with ass ociated endplate degenerative changes, osteophytosis and facet arthropathy. No fracture is identified. The lung apices are clear. Note is made of several prominent bilateral level 2 lymph nodes, similar in appearance sara red to imaging obtained on 2015. Visualized brain parenchyma is unremarka ble. The mastoid air cells and partially visualized sphenoid sinuses are clear. Procedure Note Celia Reeder MD - 01/14/2016For matting of this note might be different from the original. EXAMINATION: CT CERVICAL SPINE WO CONTRA ST CLINICAL HISTORY: There is mild edema wi thin the C5 and C6 which may represent a microtrabecular fracture. Please evaluat e for a fracture in this area TECHNIQUE: Noncontrast CT cervical spine COMPARISON: MRI lumbar spine dated [address] cervical spine dated 2015 FINDINGS: Alignment of the cervical spine spine is unchanged including a few millimeters of anterolisthesis of C3 relative to C4. No traumatic malalignment. The prevertebral soft tissues are normal in appearance. Vertebral body heights appear maintained. As on prior imaging, there is disc height loss at C5-6, C6-7 and to a lesser degree at C7-T1 with ass ociated endplate degenerative changes, osteophytosis and facet arthropathy. No fracture is identified. The lung apices are clear. Note is made of several prominent bilateral level 2 lymph nodes, similar in appearance sara red to imaging obtained on 2015. Visualized brain parenchyma is unremarka ble. The mastoid air cells and partially visualized sphenoid sinuses are clear. IMPRESSION IMPRESSION: 1. No cervical spine fracture or traumat ic malalignment. 2. Unchanged degenerative disc disease, most prominent at C5-6, C6-7 and C7-T1 is better characterized on a prior MRI o f the cervical spine. I have personally reviewed the image(s) and the residents interpretation and agree with the findings, Rip freitas at 01/14/2016 9:47 AM Ernie Devries MD IMG CT ORDERABLES documented in this encounter Visit Diagnoses Diagnosis Neural foraminal stenosis of cervical sp ine Spinal stenosis in cervical region Protrusion of cervical intervertebral di sc Blunt trauma of neck, sequela documented in this encounter Care Teams Apartment Rental Clerk Relationship Specialty Start Date End Date Peña Sherman MD PCP - General 04/06/15 01/31/16 [place] [address] documented as of this encounter
--- OUTSIDE RECORDS SUMMARY | 2022-07-12 00:55 | XMS_ITS | Encounter Summary ---
:1965 Author Organization [facility] [place] [address] Care Team Providers Name Role Phone Peña Sherman MD Primary Care Provider Encounter Details Date Type Department Care Team Description 11/20/2015 Telephone Pain Management at [facility]ha [facility], [place] [address] Social History Tobacco Use Types Packs/Day [...] this encounter Miscellaneous Notes Telephone Encounter - Radha Valle RN - 11/23/2015 1:53 PM EST Patient called requesting ANGELINA. Last one was 12/05/14. Pt states she wants attending only, specifically Dr. Mcknight. Information left in phone log for triage nurse to follow up and information forwarded to scheduling. documented in this encounter Plan of Treatment Upcoming Encounters Date Type Specialty Care Team Description 08/06/2022 Office Visit Plastic Surgery Peña Woodward MD [facility] PLASTIC SURGERY [place], [place] [address] ( josé luis) 08/19/2022 Office Visit Podiatry Tom Titus DPM [place], [place] [address] (Flores ordonez) 09/08/2022 Office Visit Internal Medicine Janay Hay MD [facility] GENERAL INTERNAL MEDICINE [place], [place] [address] (Flores ordonez) 10/12/2059 Hospital Encounter Surgery Jim Hanley MD [facility] SPINE CENTER [place], [place] [address] (Flores ordonez) Scheduled Procedures Name [...] on filedocumented in this encounter Care Teams Moto Mix Operator Relationship Specialty Start Date End Date Peña Sherman MD PCP - General 04/06/15 01/31/16 [address] [place] [address] documented as of this encounter
--- OUTSIDE RECORDS SUMMARY | 2022-07-12 00:55 | XMS_ITS | Encounter Summary ---
:1965 Author Organization [facility] Address [facility] [place] [address] Care Team Providers Name Role Phone Peña Sherman MD Primary Care Provider Encounter Details Date Type Department Care Team Description 11/21/2015 Telephone Pain Management at [facility] Valentina Perez, RN [facility] [place] [address] Social History Tobacco Use Types Packs/Day [...] this encounter Miscellaneous Notes Telephone Encounter - Valentina Perez LPN - 11/21/2015 9:07 AM EST Fluoroscopy Procedure Request Procedure Requested: Neither cervical epidural steroid injection Date(s) of Last Procedure: 12-05-14 Did requested procedure relieve pain? _x__ No Have you had any steroid injections anywhere in your body within the last two weeks? no Patient taking anticoagulants? _x__ No ___ Yes Patient has pacemaker/defibrillator: No Changes in usual pain pattern or pertinent recent trauma or surgery? ___ No, patient transferred or will be contacted by computer processing scheduler to make appointment for requested procedure. ___x Yes, patient referred for re-evaluation by referring provider. Patient's questions regarding requested procedure were answered and patient verbalized understanding. Patient knows how to contact the Pain Management Center and understands that they may do so at any time should they have further questions or concerns. Valentina Perez LPN documented in this encounter Plan of Treatment Upcoming Encounters Date Type Specialty Care Team Description 08/06/2022 Office Visit Plastic Surgery Peña Woodward MD [facility] PLASTIC SURGERY [place], [place] [address] (Flores ordonez) 08/19/2022 Office Visit Podiatry Tom Titus DPM [place], [place] [address] (Flores ordonez) 09/08/2022 Office Visit Internal Medicine Janay Hay MD [facility] GENERAL INTERNAL MEDICINE [place], [place] [address] (Wo rk) 10/12/2059 Hospital Encounter Surgery Jim Hanley MD [facility] SPINE CENTER [place], [place] [address] (Wo rk) Scheduled Procedures [...] on filedocumented in this encounter Care Teams Consulting Services Manager Relationship Specialty Start Date End Date Peña Sherman MD PCP - General 04/06/15 01/31/16 [place] [address] documented as of this encounter
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
--- OUTSIDE RECORDS SUMMARY | 2022-07-12 00:55 | XMS_ITS | Encounter Summary ---
:1965 Author Organization [facility] Address [address] [place] [address] Care Team Providers Name Role Phone Peña Sherman MD Primary Care Provider Encounter Details Date Type Department Care Team Description 01/30/2016 Telephone Neurology at [facility] Geeta Mcqueen APRN [facility] [place] [address] NEUROLOGY DEPT. [phone] [place], [place] [address] (Wo rk) Social History Tobacco [...] Telephone Encounter - Geeta Mcqueen APRN - 01/30/2016 5:07 PM EDT I LM for Dr. Lehman (surgical associates) in regard to this patient. It is not clear to me if consent has been signed to collaborate. I was unable to reach him at 5:05p. I LM for him to call me back tomorrow morning. documented in this encounter Plan of Treatment Upcoming Encounters Date Type Specialty Care Team Description 08/06/2022 Office Visit Plastic Surgery Peña Woodward MD [facility] PLASTIC SURGERY [place], [place] [address] ([facility]) 08/19/2022 Office Visit Podiatry Tom Titus DPM [place], [place] [address] ([facility]) 09/08/2022 Office Visit Internal Medicine Janay Hay MD [facility] GENERAL INTERNAL MEDICINE [place], [place] [address] (Wo rk) 10/12/2059 Hospital Encounter Surgery Jim Hanley MD [facility] DR SPINE CENTER [place], [place] [address] (Wo rk) Scheduled Procedures Name [...] on filedocumented in this encounter Care Teams Ict Account Manager Relationship Specialty Start Date End Date Peña Sherman MD PCP - General 04/06/15 01/31/16 [place] [address] documented as of this encounter
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
--- OUTSIDE RECORDS SUMMARY | 2022-07-12 00:55 | XMS_ITS | Encounter Summary ---
:1965 Author Organization [facility] Address [address] [place] [address] Care Team Providers Name Role Phone Ernestina Nowak Primary Care Provider Reason for Visit Reason Comments Psoriasis Encounter Details Date Type Department Care Team Description 01/28/2016 [facility] Karen III, Psoriasis; [address] [facility] Neoplasm of uncertain behavi or of skin; [place] [address] [address] Skin lesion of left arm; [phone] HEATER Lesion of ala o f nose [address] [place] [id number] Social History Tobacco Use Types Packs/Day Years [...] as of this encounter Patient Instructions Patient InstructionsAkosua Turner LPN - 01/28/2016 9:50 AM EDT Taclonex every other night when you know you are going to wash your hair. Clobetasol solution twice daily for up to 2 weeks for flares then twice a week thereafter. documented in this encounter Progress Notes Akosua Turner LPN - 01/28/2016 9:40 AM EDT Images from the original note were not included. DERMATOLOGY ESTABLISHED PATIENT CLINIC NOTE Date of service: 01/28/2016 Emmanuelle Bynum : 1965 Provider: Jacob Blair MD PROBLEM: psoriasis/ sebopsoriasis - nape of neck SKIN HISTORY: Seborrheic keratoses Psoriaisis HPI Emmanuelle Bynum is a 50 y.o. year old female. She presents for a recheck of her scalp psoriasis. She has not been treating it and is out of medication. She has a small papule on her right nostril and a pink, itchy papule on her left forearm. These are troublesome and itching respectively. ADR: Allergies Allergen Reactions ??? Methadone Nausea And Vomiting CURRENT MEDICATIONS: Current Outpatient Prescriptions Medication Sig Dispense Refill ??? traMADol (ULTRAM) 50 mg Tablet Take 50 mg by mouth as needed for Pain. ??? tiotropium (SPIRIVA) 18 mcg Capsule, w/Inhalation [...] Allergic Rhinitis ??? fluticasone (VERAMYST) 27.5 mcg/actuation [place], Suspension 2 sprays by Nasal route daily. [...] ??? Carpal tunnel syndrome on both sides G56.01, G56.02 ??? Left elbow pain M25.522 ??? Ankle [...] Occipital scalp - well defined erythematous plaques with thick white scale No other psoriasis noted on body B. Right ala - 1 - 2 mm papular lesion - irritated at times. C. Left - 4 mm firm pink papule - this is very pruritic Photo taken and charted with patient consent by Sg Turner LPN ASSESSMENT/PLAN: A. Scalp psoriasis - I discussed this condition with the patient and explored therapeutic options. She will continue toapply the clobetasol solution HS for 14 days to gain control then stop the clobetasol and use Taclonex giana HS - 2- 3 days a week when she can shampoo out in the morning. B. Fibrous nodule r/o BCC - right ala - I discussed this condition with the patient and explored therapeutic options. I recommended a biopsy for diagnosis Procedure: Skin biopsy by shave technique Location: right ala Discussed indications for procedure and expectations including risks and benefits. Verbal consent obtained. Skin prep with alcohol. Local anesthesia with 1% xylocaine, 1/100,000 epinephrine, 0.1 mEq/mLbicarbonate. A sample of the lesion was removed by shave technique to the level of the dermis and submitted to Pathology. Hemostasis obtained (AlCl and/or electrocautery). There were no complications; the pt. tolerated the procedure well. The wound was dressed. Post-procedure expectations, wound care and activity restrictions were reviewed. Follow-up based on pathology results. C. Dermatofibroma r/o atypia - left volar wrist - with extreme pruritis. I discussed this condition with the patient and explored therapeutic options. I recommended a biopsyfor diagnosis. Procedure: Skin biopsy by shave technique Location: left forearm Discussed indications for procedure and expectations including risks and benefits. Verbal consent obtained. Skin prep with alcohol. Local anesthesia with 1% xylocaine, 1/100,000 epinephrine, 0.1 mEq/mLbicarbonate. A sample of the lesion was removed by shave technique to the level of the dermis and submitted to Pathology. Hemostasis obtained (AlCl and/or electrocautery). There were no complications; the pt. tolerated the procedure well. The wound was dressed. Post-procedure expectations, wound care and activity restrictions were reviewed. Follow-up based on pathology results. RTC - 6 Months - sooner if needed I am documenting this encounter acting as the scribe for and in the presence of Dr. Blair.: AKOSUA TURNER LPN I performed the above scribed service and agree with the accuracy of the documentation in this encounter. Jacob Blair MD Section of Dermatology [facility] documented in this encounter Plan of Treatment Upcoming Encounters Date Type Specialty Care Team Description 08/06/2022 Office Visit Plastic Surgery Peña Woodward MD [facility] PLASTIC SURGERY [place] [address] (Wo rk) 08/19/2022 Office Visit Podiatry Tom Titus DPM [facility] DRIVE [place], [place] [address] (Wo rk) 09/08/2022 Office Visit Internal Medicine Janay Hay MD [facility] GENERAL INTERNAL MEDICINE [place], [place] [address] (Wo rk) 10/12/2059 Hospital Encounter Surgery Jim Hanley MD [facility] SPINE CENTER [place], [place] [address] (Wo rk) Scheduled Procedures Name [...] Associated Diagnosis Comme nts SPECIMEN TO Routine 01/28/2016 10:05 AM Neoplasm of Results for this PATHOLOGY (NON-OR) EDT uncertain behavior pro cedure are in of skin the results section. SURGICAL PATHOLOGY Routine 01/28/2016 10:05 AM Re sults for this REPORT EDT procedure are i n the results section. documented in this encounter Results Surgical Pathology Report (01/28/2016 10:05 AM EDT) Component Value Ref Test Analysis Performed At [facility] gist Range Method Time Signature Surgical [id number] ?Location: [address] [place] [address] Report The signing pathologist has (i) examined the relevant preparation(s) for the [facility] specimen(s) and (ii) rendered or confirmed the diagnosis(es) . HOSPITAL LABORATORY . ?Surgic al Pathology DIAGNOSIS A - Skin, right ala, shve biopsy: Hyperkeratosis, and scleroti c and fibrotic dermis, consistent with fibrous papule, irritated. There may also be a small component of scar present. B - Skin, left forearm, shave biopsy: Consistent with superficial aspect of dermatofibroma, inflamed, (see Discussion). 01/29/16 DLD 02/01/16 Verified by: ? Natalia Chairez MD ?Dermatopathologist ?(Electronic Signature ) The attending pathologist whose signature appears on this re port has reviewed all diagnostic slides and has edited the gross and/ or microscopic portion of the report in lisa dering the final pathologic diagnosis. DISCUSSION B - There is epidermal acanthosis over a sparse dermal spind le cell infiltrate, ??consistent with ??the top of a subtle dermato fibroma. An inflamed benign keratosis with reactive fibrosis was cons idered in the differential diagnosis. B - Dr. Rick Colon also re viewed the case and concurs with the interpretation. ADDITIONAL STUDIES Immunohistochemistry Studies: Formalin-fixed, paraffin-emb edded [...] other diagnostic tests. Block ? Antibody ?Result (Positive/Negative) A1 ? S-100 ?lesional cells are negative. B1 ? S-100 ?lesional cells are negative. CLINICAL INFORMATION Specimen Submitted: A - Skin, right ala, shve biopsy (1) B - Skin, left forearm, shave biopsy (1) Clinical History: A. 1-2 mm papular lesion B. 4 mm pink firm papule Clinical Diagnosis: A. Fibrous papule rule out BCC B. Dermatofibroma rule out atypia . SPECIMEN PROCESSING A - Labeled/Fixative: Right ala, formalin. Quantity/Size: Single, 0.1 x 0.1 x 0.1 cm. Tissue Description: Not oriented pink papule. Sections/Processing: Submitted en-toto. (T1) B - Labeled/Fixative: Left forearm, formalin. Quantity/Size: Single, 0.5 x 0.4 cm. Tissue Description: Not oriented wrinkled, lyons skin sh ave without a discrete cutaneous lesion. Sections/Processing: Inked and bisected. (T1) ??shb Specimen (Source) Anatomical Collection Method Collection Time Re ceived Time Location / / Volume Laterality 01/28/2016 10:05 AM EDT Jacob Blair III, MD PATHOLOGY/CYTOLOGY ORDERABLE S Performing Organization Address City/State/[place] [address] Specimen to Pathology (NON-OR) (01/28/2016 10:05 AM EDT) Specimen Anatomical Collection Method Collection Time Receive d Time (Source) Location / / Volume Laterality AP Specimen 01/28/2016 10:05 01/28/2016 1:05 AM EDT PM EDT Narrative [facility] - 01/28/2016 1:06 PM EDT Specimen requisition ordered. ??Separate Pathology report to follow Resulting Agency Comment Spec In Lab Jacob Blair III, MD PATHOLOGY/CYTOLOGY ORDERABLE S Performing Organization Address City/State/[place] [address] documented in this encounter Visit Diagnoses Diagnosis Psoriasis Other psoriasis Neoplasm of uncertain behavior of skin Skin lesion of left arm Unspecified disorder of skin and subcuta neous tissue Lesion of ala of nose Unspecified disorder of skin and subcuta neous tissue documented in this encounter Care Teams Salmon Troll Fisher Relationship Specialty Start Date End Date Ernestina Nowak PA PCP - General Family Medicine 02/01/16 08/24/17 [address] [place] [address] documented as of this encounter
--- OUTSIDE RECORDS SUMMARY | 2022-07-12 00:55 | XMS_ITS | Encounter Summary ---
:1965 Author Organization [facility] Address [address] [place] [address] Care Team Providers Name Role Phone Peña Sherman MD Primary Care Provider Reason for Visit Reason Comments Medication Refill Encounter Details Date Type Department Care Team Description 12/05/2015 Refill Ophthalmology [facility] [place] [place] Payal Erwin, Dry eye, bilateral [facility] Kevin castañ[place] [address] [facility] [phone] OPHTHALMOLOGY DE PT. [place], [place] [address] (Wo rk) Social History Tobacco [...] MD [facility] PLASTIC SURGERY [place] [phone] ([facility]) 08/19/2022 Office Visit Podiatry Tom Titus DPM [place], [place] [address] ([facility]) 09/08/2022 Office Visit Internal Medicine Janay Hay MD [facility] GENERAL INTERNAL MEDICINE [place], [place] [address] ( rk) 10/12/2059 Hospital Encounter Surgery Jim Hanley MD [facility] SPINE CENTER [place], [place] [address] (Wo josé luis) Scheduled Procedures [...] as of this encounter Visit Diagnoses Diagnosis Dry eye, bilateral documented in this encounter Care Teams Radio Sales Account Executive Relationship Specialty Start Date End Date Peña Sherman MD PCP - General 04/06/15 01/31/16 [place] [address] documented as of this encounter
--- OUTSIDE RECORDS SUMMARY | 2022-07-12 00:55 | XMS_ITS | Encounter Summary ---
:1965 Author Organization [facility] Address [address] [place] [address] Care Team Providers Name Role Phone Ernestina Nowak Primary Care Provider Encounter Details Date Type Department Care Team Description 05/14/2016 Hospital Encounter XRay at [facility] [place] Dieter Phillips, Cervical disc [address] MEDINA [facility] [address] [place] [phone] [place] [address] Social History Tobacco Use Types Packs/Day Years [...] by Nasal 0 27.5 mcg/actuation route daily. [place], Indications: Allergic SuspensionIndications: Rhinitis allergic rhinitis Lidocaine [...] MD [facility] PLASTIC SURGERY [place] [phone] ( josé luis) 08/19/2022 Office Visit Podiatry Tom Titus DPM [place], [place] [address] (Flores ordonez) 09/08/2022 Office Visit Internal Medicine Janay Hay MD [facility] GENERAL INTERNAL MEDICINE [place], [place] [address] (Wo rk) 10/12/2059 Hospital Encounter Surgery Jim Hanley MD [facility] SPINE CENTER [place], [place] [address] (Flores ordonez) Scheduled Procedures Name [...] Comme nts XR CERVICAL SPINE 2 Routine 05/14/2016 2:30 PM Cervical disc R esults for this OR 3 VIEWS EDT displacement procedure are i n the results section. documented in this encounter Results XR Cervical Spine 2 Or 3 Views (NR GENERIC) (05/14/2016 2:30 PM EDT) Anatomical Region Laterality Modality C-spine N/A Digital Radiography Specimen (Source) Anatomical Location Collection Method / Collectio n Time Received Time / Laterality Volume Impressions 05/14/2016 4:25 PM EDT 1. ??Disc space narrowing at C5-6 and C6-7, similar to CT 2. ??facet and uncovertebral joint arthr opathy most prominent in the mid to lower cervical levels. 3. ??No dynamic instability. Narrative 05/14/2016 4:25 PM EDT EXAMINATION: XR CERVICAL SPINE 2 OR 3 VIEWS CLINICAL HISTORY: AP lat flex/ext (3view s) to eval cervical disc displacement TECHNIQUE: ? COMPARISON: CT scan from November 2015. FINDINGS: C1 to top of C7 are visualized. Vertebral bodies: Normal vertebral heigh t. No vertebral fracture. Prominent osteophytes arising from mid to lower ce rvical levels. facet and uncovertebral joint arthropathy also at mid to lower c ervical levels. Disk spaces: C5-6 and C6-7 disc space na rrowing. Soft tissues: Normal. ?? Alignment Flexion-extension: C3-4- .8 mm anterolisthesis seen only on flexion. C4-5 -1.8 mm anterolisthesis seen only o n flexion. Procedure Note Isabelle Pacheco MD - 05/14/2016Formatt ing of this note might be different from the original. EXAMINATION: XR CERVICAL SPINE 2 OR 3 EWS CLINICAL HISTORY: AP lat flex/ext (3view s) to eval cervical disc displacement TECHNIQUE: COMPARISON: CT scan from November 2015. FINDINGS: C1 to top of C7 are visualized. Vertebral bodies: Normal vertebral heigh t. No vertebral fracture. Prominent osteophytes arising from mid to lower ce rvical levels. facet and uncovertebral joint arthropathy also at mid to lower c ervical levels. Disk spaces: C5-6 and C6-7 disc space na rrowing. Soft tissues: Normal. Alignment Flexion-extension: C3-4- .8 mm anterolisthesis seen only on flexion. C4-5 -1.8 mm anterolisthesis seen only o n flexion. IMPRESSION 1. Disc space narrowing at C5-6 and C6-7 , similar to CT 2. facet and uncovertebral joint arthrop athy most prominent in the mid to lower cervical levels. 3. No dynamic instability. Dieter Phillips MD IMG DX ORDERABLES documented in this encounter Visit Diagnoses Diagnosis Cervical disc displacement Displacement of cervical intervertebral disc without myelopathy documented in this encounter Care Teams Plate Corrector Relationship Specialty Start Date End Date Ernestina Nowak PA PCP - General Family Medicine 02/01/16 08/24/17 [address] [place] [address] documented as of this encounter
--- OUTSIDE RECORDS SUMMARY | 2022-07-12 00:55 | XMS_ITS | Encounter Summary ---
:1965 Author Organization [facility] [place] [address] Care Team Providers Name Role Phone Ernestina Nowak Primary Care Provider Reason for Visit Reason Onset Date Comments Results 02/01/2016 [email or web address] Encounter Details Date Type Department Care Team Description 02/01/2016 Telephone Cardiology at Mian Lara Jr., Results ([email or web address]) Carmen MEDINA [address] [facility] 580 [facility] [place], [place] [id number] [phone] Social History Tobacco Use Types Packs/Day Years [...] this encounter Miscellaneous Notes Telephone Encounter - Mian Lara Jr., MD - 03/06/2016 3:17 PM EDT Loop recorder- only baseline transmission sent documented in this encounter Plan of Treatment Upcoming Encounters Date Type Specialty Care Team Description 08/06/2022 Office Visit Plastic Surgery Peña Woodward MD [facility] PLASTIC SURGERY [place] [phone] (Wo rk) 08/19/2022 Office Visit Podiatry Tom Titus DPM [place], [place] 0[address] (Wo rk) 09/08/2022 Office Visit Internal Medicine Janay Hay MD [facility] GENERAL INTERNAL MEDICINE [place], [place] [address] (Wo rk) 10/12/2059 Hospital Encounter Surgery Jim Hanley MD [facility] SPINE CENTER [place], [place] [address] (Wo rk) Scheduled Procedures Name [...] on filedocumented in this encounter Care Teams Operator/Assistant Foreman Relationship Specialty Start Date End Date Ernestina Nowak PA PCP - General Family Medicine 02/01/16 08/24/[address] [place] [id number] documented as of this encounter
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
--- OUTSIDE RECORDS SUMMARY | 2022-07-12 00:55 | XMS_ITS | Encounter Summary ---
:1965 Author Organization [facility] [place] [address] Care Team Providers Name Role Phone Peña Sheramn MD Primary Care Provider Reason for Referral Diagnostic Test (Routine) - Closed Specialty Diagnoses / Procedures Referred By Contact Refer red To Contact Radiology Diagnoses Post concussive syndrome Numbness and tingling of right upper extremity Post-traumatic headache, not intractable, unspecified chronicity pattern Geeta Mcqueen APRN [facility] Rad Mri Procedures MRI Cervical Spine WO Contrast (GENERIC) [facility] [place] [address] [place] [address] Referral ID Status Reason Start Date Expiration Date Visits V isits Requested Authorized [id number] Closed Specialty 11/13/2015 11/12/2016 1 1 Service Requested Reason for Visit Diagnostic Test (Routine) - Closed Specialty Diagnoses / Procedures Referred By Contact Refer red To Contact Radiology Diagnoses Post concussive syndrome Numbness and tingling of right upper extremity Post-traumatic headache, not intractable, unspecified chronicity pattern Geeta Mcqueen APRN [facility] Rad Mri Procedures MRI Cervical Spine WO Contrast (GENERIC) [facility] [place] [address] [place] [address] Referral ID Status Reason Start Date Expiration Date Visits V isits Requested Authorized [id number] Closed Specialty 11/13/2015 11/12/2016 1 1 Service Requested Encounter Details Date Type Department Care Team Description 11/15/2015 Hospital Encounter MRI at [facility] Devries, Ernie N, Post concussive syndrome; [facility] Numbness and tingling of right upper ext remity; [facility] Post-traumatic headache, not intractable, unspecified chronicity pattern [place], [place] CENTER [address] NEUROLOGY DEPT. [phone] [place] [id number] Social History Tobacco Use Types Packs/Day Years [...] by Nasal 0 27.5 mcg/actuation route daily. [place], Indications: Allergic SuspensionIndications: Rhinitis allergic rhinitis gabapentin [...] [facility] PLASTIC SURGERY [place], [place] [address] (Wo rk) 08/19/2022 Office Visit Podiatry Tom Titus DPM [place], [place] [address] (Wo rk) 09/08/2022 Office Visit Internal Medicine Janay Hay MD [facility] GENERAL INTERNAL MEDICINE [place], [place] [address] (Wo rk) 10/12/2059 Hospital Encounter Surgery Jim Hanley MD [facility] DR SPINE CENTER [place], [place] [address] (Wo rk) Scheduled Procedures Name [...] Post-traumatic headache, not intractable, unspecified chronicity pattern MRI CERVICAL SPINE Routine 11/15/2015 4:40 PM Post concussive Results for this WO CONTRAST EST syndrome procedure are in Numbness and the results tingling of right section. upper extremity Post-traumatic headache, not intractable, unspecified chronicity pattern documented in this encounter Results MRI Cervical Spine WO Contrast (GENERIC) (11/15/2015 4:40 PM EST) Anatomical Region Laterality Modality C-spine Magnetic Resonance [...] MAR Action Action Date Dose Rate Site gadobutrol (GADAVIST) 1 mMol/mL Given 11/15/2015 4:21 PM EST 10 mLs injection 9.98 mL 9.98 mL (0.1 mL/kg/dose ? 99.8 kg Order-specific weight), Intravenous, ONCE PRN, 1 dose, Starting on [place] 11/15/15 at 1534, Until [place] 11/15/15 at 1621, Per Protocol, Routine documented in this encounter Care Teams Manager Domestic Relationship Specialty Start Date End Date Peña Sherman MD PCP - General 04/06/15 01/31/16 YAN Edgar [address] [place] [address] documented as of this encounter
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
--- OUTSIDE RECORDS SUMMARY | 2022-07-12 00:55 | XMS_ITS | Encounter Summary ---
:1965 Author Organization [facility] Address [address] [place] [address] Care Team Providers Name Role Phone Ernestina Nowak Primary Care Provider Reason for Visit Reason Onset Date Comments Other 02/01/2016 Encounter Details Date Type Department Care Team Description 02/01/2016 Telephone Neurology at [facility] Geeta Mcqueen APRN Other [facility] Kevin castañeda [facility] [address] NEUROLOGY DEPT. 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 Patient has follow-up in headache clinic on Thursday02/04/16. Telephone Encounter - Arabella Covington APRN - 02/01/2016 2:27 PM EDT Will need to talk to oncall Telephone Encounter - Gaby Villatoro RN - 02/01/2016 10:12 AM EDT Return call placed to inform Maricruz that Geeta Mcqueen APRN is not in the office on Fridays. I spoke with her and got some basic information. She has been admitted to their hospital with a question of seizures. Maricruz states that it is still unclear whether she is having seizures or if it was just a syncopal episode. Patient has had a head CT that was unremarkable. Maricruz states that she is going to discharge the patient today and is thinking about starting her on Keppra and wanted some input from a provider here in the clinic as to whether this would be a good idea. She understands that Geeta is out of the office and asks if she could possible speak with the covering provider about this. I informed her that I would send this on to the covering provider to find out if she would be willing to call her to discuss this. Telephone Encounter - Dmitry Victoria - 02/01/2016 9:52 AM EDT Tali from [facility] called regarding the patient. She requested that RaymondJanSalina Mcqueen call [phone] to speak with their hospitalist, Maricruz Atkins about this patient. documented in this encounter Plan of Treatment Upcoming Encounters Date Type Specialty Care Team Description 08/06/2022 Office Visit Plastic Surgery Peña Woodward MD [facility] PLASTIC SURGERY [place] [id number] (Flores ordonez) 08/19/2022 Office Visit Podiatry Tom Titus DPM [place], [place] [address] (Wo josé luis) 09/08/2022 Office Visit Internal Medicine Janay Hay MD [facility] GENERAL INTERNAL MEDICINE [place], [place] [address] (Flores ordonez) 10/12/2059 Hospital Encounter Surgery Jim Hanley MD [facility] SPINE CENTER [place], [place] [address] (Wo rk) Scheduled Procedures Name [...] filedocumented in this encounter Care Teams Metal Neutralizer Relationship Specialty Start Date End Date Ernestina Nowak PA PCP - General Family Medicine 02/01/16 08/24/[address] [place] [id number] documented as of this encounter
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
--- OUTSIDE RECORDS SUMMARY | 2022-07-12 00:55 | XMS_ITS | Encounter Summary ---
:1965 Author Organization [facility] Address [facility] [place] [address] Care Team Providers Name Role Phone Ernestina Nowak Primary Care Provider Reason for Visit Reason Onset Date Comments Results 01/16/2016 Encounter Details Date Type Department Care Team Description 01/16/2016 Telephone Neurology at [facility] Geeta Mcqueen APRN Results [facility] Kevin castañeda [facility] [place] [address] NEUROLOGY DEPT. [phone] [place] [id number] (Wo rk) Social History Tobacco Use Types [...] Telephone Encounter - Gaby Villatoro RN - 01/17/2016 4:10 PM EDT Spoke with patient and relayed the information as noted, she understands and will contact her PCP. Call placed to PCP office and spoke with Jackie, she will let YUNIOR Sinha know about these findings and have her review the reports. Telephone Encounter - Gaby Villatoro RN - 01/17/2016 11:16 AM EDT Call placed to patient to inform her of results and need to follow-up with PCP. No answer and voicemail is not set up. Will try again later. Result reports sent to PCP office. Telephone Encounter - Geeta Mcqueen APRN - 01/16/2016 4:37 PM EDT Prominent lymphadenopathy visualized on CT of neck P: 1. RN will call PCP office and notify them of above with the intent that they will evaluate patient for this finding. (she has sig smoking history) 2. RN will notify patient to follow up with PCP regarding lymphadenopathy 3. RN will fax copies of recent imaging (CT of neck, MRI of brain and c-spine) to PCP for review. (patient is being treated for neck issues in Pain clinic) documented in this encounter Plan of Treatment Upcoming Encounters Date Type Specialty Care Team Description 08/06/2022 Office Visit Plastic Surgery Peña Woodward MD [facility] PLASTIC SURGERY [place], [place] [address] (Wo rk) 08/19/2022 Office Visit Podiatry Tom Titus DPM [place], [place] [address] (Wo rk) 09/08/2022 Office Visit Internal Medicine Janay Hay MD [facility] GENERAL INTERNAL MEDICINE [place], [place] [address] (Wo rk) 10/12/2059 Hospital Encounter Surgery Jim Hanley MD [facility] SPINE CENTER [place], [place] [address] (Wo rk) Scheduled Procedures [...] on filedocumented in this encounter Care Teams Route Delivery Clerk Relationship Specialty Start Date End Date Ernestina Nowak PA PCP - General Family Medicine 02/01/16 08/24/[address] [place] [address] documented as of this encounter
--- OUTSIDE RECORDS SUMMARY | 2022-07-12 00:55 | XMS_ITS | Encounter Summary ---
:1965 Author Organization [facility] [place] [address] Care Team Providers Name Role Phone Ernestina Nowak Primary Care Provider Reason for Visit Reason Onset Date Comments Medication Refill 04/11/2016 Encounter Details Date Type Department Care Team Description 04/11/2016 Refill Neurology at [facility] [place] [place] Geeta Mcqueen, Chronic migraine without aur a with status migrainosus, not intractable; [facility] ELECTRICAL MAINTENANCE SUPERVISOR Cervicogenic headache; Drive [facility] [place] [address] NEUROLOGY DEPT. [place] [id number] (Wo rk) Social History Tobacco Use Types [facility] [place] [phone] ( rk) 08/19/2022 Office Visit Podiatry Tom Titus DPM [place] [phone] (Wo rk) 09/08/2022 Office Visit Internal Medicine Janay Hay MD [facility] GENERAL INTERNAL MEDICINE [place] [phone] (Wo rk) 10/12/2059 Hospital Encounter Surgery Jim Hanley MD [facility] SPINE CENTER [place] [phone] ([facility]) Scheduled Procedures Name Priority Associated Diagnoses Date/Time [...] of this encounter Visit Diagnoses Diagnosis Chronic migraine without aura with statu s migrainosus, not intractable Chronic migraine without aura, without m ention of intractable migraine with status migrainosus Cervicogenic headache Headache Chronic migraine Chronic migraine without aura, without m ention of intractable migraine without mention of status migrainosus documented in this encounter Care Teams Deputy Sheriff Civil [employer] Relationship Specialty Start Date End Date Ernestina Nowak PA PCP - General Family Medicine 02/01/16 08/24/17 [address] [place] [address] documented as of this encounter
--- OUTSIDE RECORDS SUMMARY | 2022-07-12 00:55 | XMS_ITS | Encounter Summary ---
:1965 Author Organization [facility] [place] [address] Care Team Providers Name Role Phone Peña Sherman MD Primary Care Provider Reason for Referral Diagnostic Test (Routine) - Closed Specialty Diagnoses / Procedures Referred By Contact Refer red To Contact Radiology Diagnoses Neural foraminal stenosis of cervical spine Protrusion of cervical intervertebral disc Blunt trauma of neck, sequela Geeta Mcqueen, SHELLY [facility] Rad Ct Scan Procedures CT Cervical Spine Wo Contrast CT Neck Wo Contrast [facility] 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 [address] [place] [address] Referral ID Status Reason Start Date Expiration Date Visits V isits Requested Authorized [id number] Closed Consult, 11/21/2015 11/20/2016 1 1 Test & Treat Reason for Visit Reason Onset Date Comments Other 11/21/2015 Encounter Details Date Type Department Care Team Description 11/21/2015 Telephone [place] [facility] [place]eta Mcqueen APRN Other [facility] Kevin castañeda [facility] [place] [address] NEUROLOGY DEPT. [phone] [place] [address] (Wo rk) Social History Tobacco Use [...] this encounter Miscellaneous Notes Telephone Encounter - Greta Mcintosh RN - 11/22/2015 9:18 AM EST Called patient and informed her of information as noted by Geeta Mcqueen APRN. Patient understands instructions and agrees with this plan. ----- Message from Geeta Mcqueen APRN sent at 11/21/2015 ??2:13 PM EST ----- ? Please inform patient that I have done her pain clinic referral. She should await their call (should be contacted later this week or next week at the latest) ? Please also inform patient that I have ordered a CT of neck without contrast to evaluate for a possible micro fracture in her C5-6 area. Telephone Encounter - Greta Mcintosh RN - 11/21/2015 2:28 PM EST Called both home and cell phones and both messages states voicemail has not been set up and I was not able to leave a message. Telephone Encounter - Flor Lubin - 11/21/2015 12:35 PM EST Patient called in regarding her CT scans that were done last week of her neck and brain. She states that she is trying to also be seen by the pain clinic for a cervical epidural due to her pain but they will not schedule her until these CT scans are reviewed and referral is entered. Please call back to advise. documented in this encounter Plan of Treatment Upcoming Encounters Date Type Specialty Care Team Description 08/06/2022 Office Visit Plastic Surgery Peña Woodward MD [facility] PLASTIC SURGERY [place], [place] [address] (Wo rk) 08/19/2022 Office Visit Podiatry Tom Titus DPM [place], [place] [address] ( rk) 09/08/2022 Office Visit Internal Medicine Janay Hay MD [facility] GENERAL INTERNAL MEDICINE [place], [place] [address] ([facility]) 10/12/2059 Hospital Encounter Surgery Jim Hanley MD [facility] SPINE CENTER [place] [address] ([facility]) Scheduled Procedures Name Priority Associated [...] Associated Diagnoses Order S chedule Referral to Pain Outpatient Referral Routine Neural foraminal Ordered: Clinic stenosis of cervical 016 spine Protrusion Of Cervical Intervertebral Disc documented as of this encounter Results CT Cervical Spine Wo [...] di sc Blunt trauma of neck, sequela Neural foraminal stenosis of cervical sp ine Spinal stenosis in cervical region Protrusion of cervical intervertebral di sc Blunt trauma of neck, sequela documented in this encounter Care Teams Spark Tester Relationship Specialty Start Date End Date Peña Sherman MD PCP - General 04/06/15 01/31/[address] [address] documented as of this encounter
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
--- OUTSIDE RECORDS SUMMARY | 2022-07-12 00:55 | XMS_ITS | Encounter Summary ---
:1965 Author Organization [facility] [place] [address] Care Team Providers Name Role Phone Ernestina Nowak Primary Care Provider Reason for Visit Reason Onset Date Comments Medication Refill 04/11/2016 Encounter Details Date Type Department Care Team Description 04/11/2016 Telephone Neurology at [facility] Geeta Mcqueen, Medication Refill [facility] Kevin castañ[place] [address] [facility] [phone] NEUROLOGY DEPT. [place], [place] [address] (Wo rk) Social History Tobacco [...] Telephone Encounter - Gaby Villatoro RN - 04/11/2016 12:48 PM EDT Prescription prepared in separate encounter for provider approval. Telephone Encounter - Dmitry Victoria - 04/11/2016 11:41 AM EDT Name of Med: methocarbamol Strength of Pills:750 mg Dosing Directions: Take 2 tablets by mouth 3 times daily as needed. - Oral 30 or 90 Day: Pharmacy: [facility] [address] [place] [address] [facility] [address] Last Appointment: 02/03 Next Appointment: 04/16 Is Patient out of Medication?: not sure documented in this encounter Plan of Treatment Upcoming Encounters Date Type Specialty Care Team Description 08/06/2022 Office Visit Plastic Surgery Peña Woodward MD [facility] PLASTIC SURGERY [place], [place] [address] (Wo rk) 08/19/2022 Office Visit Podiatry Tom Titus DPM [facility] DRIVE [place], [place] [address] (Wo rk) 09/08/2022 Office Visit Internal Medicine Janay Hay MD [facility] GENERAL INTERNAL MEDICINE [place], [place] [address] (Wo rk) 10/12/2059 Hospital Encounter Surgery Jim Hanley MD [facility] SPINE CENTER [place], [place] [address] (Wo rk) Scheduled Procedures Name [...] on filedocumented in this encounter Care Teams Cornice Maker Relationship Specialty Start Date End Date Ernestina Nowak PA PCP - General Family Medicine 02/01/16 08/24/17 [address] [place] [address] documented as of this encounter
--- OUTSIDE RECORDS SUMMARY | 2022-07-12 00:55 | XMS_ITS | Encounter Summary ---
:1965 Author Organization [facility] [place] [address] Care Team Providers Name Role Phone Ernestina Nowak Primary Care Provider Encounter Details Date Type Department Care Team Description 03/12/2016 Telephone Dermatology at [facility] Jacob Langston III, [address] [place] [address] [facility] [phone] [facility] P[facility] [place], [place] [address] (Wo rk) Social History Tobacco [...] Telephone Encounter - Akosua Turner LPN - 03/12/2016 10:12 AM EDT ----- Message from Jacob Blair III, MD sent at 03/02/2016 5:04 PM EDT ----- Please check on the scalp psoriasis and biopsy sites - biopsies were benign- hope all is healing OK . Thanks. See as planned if needed, sooner if problems arise. I am unable to reach Guerda. The phone number listed is not correct and she does not have an active my [employer] account. documented in this encounter Plan of Treatment Upcoming Encounters Date Type Specialty Care Team Description 08/06/2022 Office Visit Plastic Surgery Peña Woodward MD [facility] PLASTIC SURGERY [place], [place] [address] (Wo rk) 08/19/2022 Office Visit Podiatry Tom Titus DPM [place], [place] [address] (Wo rk) 09/08/2022 Office Visit Internal Medicine Janay Hay MD [facility] GENERAL INTERNAL MEDICINE [place], [place] [address] (Wo rk) 10/12/2059 Hospital Encounter Surgery Jim Hanley MD [facility] SPINE CENTER [place], [place] [address] (Wo rk) [...] on filedocumented in this encounter Care Teams Acquisitions Logistics Analyst Relationship Specialty Start Date End Date Ernestina Nowak PA PCP - General Family Medicine 02/01/16 08/24/[address] [place] [address] documented as of this encounter
--- OUTSIDE RECORDS SUMMARY | 2022-07-12 00:56 | XMS_ITS | Encounter Summary ---
:1965 Author Organization [facility] Address [facility] [place] [address] Care Team Providers Name Role Phone Peña Sherman MD Primary Care Provider Reason for Visit Reason Onset Date Comments Medication Refill 10/16/2015 Encounter Details Date Type Department Care Team Description 10/16/2015 Refill Neurology at [facility] Geeta Mcqueen APRN Headache(784.0) [facility] Kevin castañeda [facility] [place] [address] NEUROLOGY DEPT. [phone] [place], [place] [address] (Wo rk) Social History Tobacco Use Types Packs/Day Years Used Date Current Every Day Smoker Cigarettes 0.5 13 Smokeless Tobacco: Never Used Comments: not tryiing to quit Alcohol Use Standard Drinks/Week Comments No 0 [...] MD [facility] PLASTIC SURGERY [place] [id number] (Wo rk) 08/19/2022 Office Visit Podiatry Tmo Titus DPM [place] [phone] (Wo rk) 09/08/2022 Office Visit Internal Medicine Janay Hay MD [facility] GENERAL INTERNAL MEDICINE [place], [place] [address] (Wo rk) 10/12/2059 Hospital Encounter Surgery Jim Hanley MD [facility] SPINE CENTER [place], [place] [address] (Wo rk) Scheduled Procedures Name [...] this encounter Visit Diagnoses Diagnosis Headache(784.0) Headache documented in this encounter Care Teams School Bus Inspector Relationship Specialty Start Date End Date Peña Sherman MD PCP - General 04/06/15 01/31/[address] [address] documented as of this encounter
--- OUTSIDE RECORDS SUMMARY | 2022-07-12 00:56 | XMS_ITS | Encounter Summary ---
:1965 [place] [address] Care Team Providers Name Role Phone Peña Sherman MD Primary Care Provider Encounter Details Date Type Department Care Team Description 07/27/2015 Hospital Encounter Same Day Program at Stas Grant MD [facility] [place] [address] [place] [address] [phone] Social History Tobacco Use Types Packs/Day Years [...] Sign Reading Time Taken Comments Blood Pressure 140/90 07/27/2015 4:41 PM EDT Pulse 94 07/27/2015 4:41 PM EDT Temperature 37.5 ??C (99.5 ??F) 07/27/2015 4:56 PM EDT Respiratory Rate 16 07/27/2015 4:41 PM EDT Oxygen Saturation 99% 07/27/2015 4:41 PM EDT Inhaled Oxygen Concentration - - Weight 99.8 kg (220 lb) 07/27/2015 10:34 AM EDT Height 165.1 cm (5' 5) 07/27/2015 10:34 AM EDT Body Mass Index 36.61 07/27/2015 10:34 AM EDT documented in this encounter Discharge Instructions Discharge InstructionsRadhika Sawyer RN - 07/27/2015 4:31 PM EDT POST ANESTHESIA INSTRUCTIONS Go home, rest, use caution on stairs. Change positions slowly. Do not smoke if you are alone. Diet light to regular as tolerated today. If nausea occurs start with clear liquids and progress slowly. No driving, operating machinery, alcoholic beverages and no important decisions for 24 hours. Monitor IV site for signs and symptoms of infection: increasing redness, swelling, foul drainage, ifoccurs contact M.D. Patients who have had endotrachial tubes (this tube, used by anesthesia department, is passed down your throat after you are asleep, to ensure safe air passage during your operation). A sore throat is normal due to the tube. Cold liquids or soothing lozenges will help ease the discomfort. The generalized muscle aches are due to the medication given to you just before the tube is inserted. As the medication wears off, you may develop muscle soreness, which usually goes away in 12-24 hours. Patient InstructionsKulwant Ponce MD - 07/27/2015 2:45 PM EDT Instructions following Laparoscopic Surgery Wound Care: Keep dressings/Band-Aids on incisions for the next 2 days. Do not get dressings wet. If they become wet or soaked with drainage you may change them with fresh ones as needed. If there are pieces of tape directly on the incision (steri-strips or butterflys), please leave them on until they fall off on their own. You may trim them back as they begin to peel up. After 2 days you may remove dressing/Band-Aids and leave open to air. You may now shower and get incisions wet. Pat dry immediately following. Do not scrub them vigorously for the next 2-3 weeks. Do not soak incision(s) under water for the next 2 weeks (i.e. soaking in bath or swimming) as this may promote a wound infection. Your stitches will dissolve and do not need to be removed. Activity: No heavy lifting more than 15 pounds for the next 4 weeks, then you may gradually lift heavier objects as tolerated by discomfort. Otherwise activity as tolerated by your comfort level. Call Doctor for: Please call if you notice worsening redness or drainage from incision(s) lasting longer than 5 days after your surgery, any foul-smelling drainage from the incision, pain not controlled by pain medications, persistent nausea and vomiting, or for any fevers greater than 101.3 F. The number for questions is [phone] before 5 PM weekdays and [phone] after 5 PM and weekends. Pain Medication: No driving for 8 hours after any dose of opioid pain medication if one was prescribed for you. You may use ibuprofen (motrin, advil) in addition to this medication if your pain is not totally controlled by the opioid. Follow-up: Follow-up appointment will be scheduled with Dr. Grant in 4 weeks. Appointment will be mailed to you. Please call [phone] (clinic number for appointments) to confirm date and time of your appointment if you do not receive your apointment in 3 weeks. documented in this encounter Medications at Time of Discharge Medication Sig Dispensed Refills Start Date End Date fluticasone 2 sprays by Nasal 0 (VERAMYST) 27.5 route daily. mcg/actuation [place], Indications: Allergic SuspensionIndications Rhinitis : allergic rhinitis clobetasol (TEMOVATE) Apply topically 2 50 mL 1 015 01/28/2016 0.05 % times a day for worse SolutionIndications: areas of scalp Psoriasis psoriasis for 2 weeks only acetaminophen Take 2 tablets by 30 tablet 1 07/27/201511/2015 (TYLENOL) 500 mg mouth every 6 hours. Tablet oxyCODONE Take 1 tablet by mouth 25 tablet 0 07/27/2015 (ROXICODONE) 5 mg every 4 hours as Tablet needed for Pain. betamethasone-calcipo Apply 3 times a week 120 g 2 10/201401/28/2016 triene (TACLONEX to scalp for psoriasis SCALP) 0.005-0.064 % SuspensionIndications : Psoriasis Clobetasol-Emollient Apply twice daily to 100 g 3 07/1008/18/2016 0.05 % Foam scalp psoriasis on weekends as needed dispense 3 bottles please desonide (DESOWEN) Apply twice daily with 30 g 1 07/1008/25/2017 0.05 % Cream ketoconazole cream to corners of mouth as needed ketoconazole Apply twice daily with 30 g 1 07/10/2015 08/25/2017 (NIZORAL) 2 % Cream Desonide cream to corners of mouth as needed. lidocaine (XYLOCAINE) APPLY TOPICALLY TO THE 35.44 g 0 11/13/2015 5 % Ointment AFFECTED AREA EVERY 8 HOURS NEEDED FOR CERVICALGIA fluconazole Take 200 mg by mouth 0 05/30/2015 (DIFLUCAN) 200 mg daily. Tablet metroNIDAZOLE Place vaginally as 0 11/2016 (METROGEL) 0.75 % Gel needed. Lidocaine 5 % Apply to neck three 45 g 3 03/19/2015 CreamIndications: times daily as needed. Chronic migraine, Cervicalgia cetirizine (ZYRTEC) Take 1 tablet by mouth 60 tablet 3 02/1008/25/2017 10 mg daily as needed for TabletIndications: Allergies. As needed Cervical radicular for itching. pain montelukast Take 10 mg by mouth 0 [...] Cervicogenic headache, Chronic migraine Meclizine 50 mg Take 1 tablet by mouth 0 05/14/2016 Tablet daily. naratriptan (AMERGE) Take 1 tablet by mouth 60 tablet 5 06/25/2016 2.5 mg twice daily as a TabletIndications: preventive for Chronic migraine, migraines. Vertigo, Cervicogenic headache pregabalin (LYRICA) Take 1 capsule by 90 tablet 0 5 05/14/2016 50 mg Capsule mouth 3 times daily. gabapentin Take 1 capsule in the 120 capsule 5 10/16/2014 (NEURONTIN) 300 mg morning, 1 capsule CapsuleIndications: afternoon and 2 Cervicogenic capsules at night. headache, Chronic migraine without aura without status migrainosus, not intractable, Chronic migraine, Chronic migraine without aura with status migrainosus, not intractable gabapentin Take 1 tablet by mouth 90 tablet 5 10/16/2014 (NEURONTIN) 600 mg 3 times daily. TabletIndications: Chronic migraine without aura without status migrainosus, not intractable, Chronic migraine without aura with status migrainosus, not intractable, Chronic migraine cycloSPORINE Place 1 drop into both 60 vial 11 07/17/2014 12/05/2015 (RESTASIS) 0.05 % eyes every 12 hours. DropperetteIndication s: MGD (meibomian gland dysfunction) ondansetron (ZOFRAN) Take 4 mg by mouth 0 02/10/2017 4 mg tablet every 8 hours as needed. promethazine Take 25 mg by mouth 0 08/2021 (PHENERGAN) 25 mg every 6 hours as tablet needed. ALPRAZolam (XANAX) 1 Take 1 mg by mouth 3 0 03/14/2022 mg tablet times daily as needed. FLUoxetine (PROZAC) Take 80 mg by mouth 0 07/04/2020 40 mg capsule daily. Eflornithine 13.9 % Apply topically 2 30 g 2 4 02/10/2017 CreaIndications: times daily. For Hirsutism excessive facial hair INSULIN DETEMIR Inject 74 Units 0 08/12 (LEVEMIR FLEXPEN subcutaneously 2 times SUBQ) daily. Reported on 02/10/2017 insulin aspart Inject 74 Units 0 05/14 (NOVOLOG) 100 unit/mL subcutaneously 2 times pen injection daily. Sliding scale lisinopril Take 10 mg by mouth 0 11/13 (PRINIVIL;ZESTRIL) 10 daily. mg tablet ARIPiprazole Take 30 mg by mouth 0 12/2021 (Abilify) 30 mg daily. Tablet esomeprazole (NEXIUM) Take 40 mg by mouth 2 0 09/201110/29/2018 40 mg capsule times daily. documented as of this encounter Progress Notes Radhika Sawyer RN - 07/27/2015 4:44 PM EDT Upon arrival from OR pt wakes up feeling nauseous and comlplaining of pain. Repositioned. Given ice pack for abdomen. Given anti emetic and pain meds. Pt vomited 200 cc clear liquid. REviewed written and verbal discharge instructions with pt and significant other. 1645 Tolerating ivone lias and cracker. Reports nausea is better. 1700 Pt up to BR, voided. Complains of feeling really hot. Abdomen appears reddened and blotchy. Paged MD. Talked to nurse Guerda in OR 28 and left message. 1715 MD to bedside to assess abdomen. Pt denies itching just warm feeling. States she feels better sitting at bedside. Assisted to finish dressing. 1725 REport given to Fabricio Lubin RN documented in this encounter H&P Notes Fabricio Grant MD - 07/27/2015 11:58 AM EDT Patient Name: Emmanuelle Bynum Patient Age: 49 y.o. Birthdate: 1965 Admit date: 07/27/2015 Attending Physician: Fabricio Grant MD No interval change in health. Plan on laparoscopic cholecystectomy today. On exam, BP 116/83 mmHg Pulse 96 Temp(Src) 36.5 ??C (97.7 ??F) Resp 18 Ht 165.1 cm (5' 5) Wt 99.791 kg (220 lb) BMI 36.61 kg/m2 SpO2 97% Lungs are clear. Heart is regular. Abdomen benign. Assessment/Plan: Ms. Bynum is stable for planned laparoscopic cholecystectomy. Consent is obtained. documented in this encounter Miscellaneous Notes Op Note - Kulwant Ponce MD - 07/27/2015 2:48 PM EDT [facility] [place] Operative Note Patient Name: Emmanuelle Bynum : [id number] MR#: [id number] Case Date: 07/27/2015 Surgeon: Surgeon(s) and Role: * Fabricio Grant MD - Primary * Kulwant Ponce MD - Resident Federico Preoperative diagnosis: Symptomatic cholelithiasis Postoperative diagnosis: Same Procedure(s): LAPAROSCOPIC CHOLECYSTECTOMY Anesthesia: General Estimated Blood Loss: 3cc Specimens removed during surgery: Gallblader Drains: Surgical Closure: Primary Closure - closure of ALL tissue levels during the original surgery regardless of wires, wickes, drains, or other devices extruding through the incision Disposition: awakened from anesthesia, extubated and taken to the recovery room in a stable condition, having suffered no apparent untoward event. Condition: doing well without problems (Please see the Surgical Encounter Summary for any Implant and Specimen details pertinent to this patient.) HPI/Surgical Indications: 49F with recurrent bouts of biliary colic. Workup revealed gallstones without LFT abnormalities. Informed consent was obtained for cholecystectomy. Procedure Description: Under general anesthesia and endotracheal intubation, the patient was prepped and draped in the supine position. After appropriate time-out procedure, the patient was confirmed to receive preoperative antibiotics and VTE prophylaxis. A vertical supraumbilical skin incision was made using an #11blade. This was deepened through the subcutaneous tissues using cautery. The fascia was identified and raised with Kochars. The fascia was incised sharply and the peritoneum entered using finger palpation. Next a Arellano trochar was inserted a nd anchored to the fascia using 0-0 vicryl suture. After adequate insufflation with CO2 to a pressure of 15 mmHg , a 30-degree telescope was inserted, and closer inspection of the abdominal cavity revealed some adhesions to the gallbladder and a relatively normal appearing GB. No other abnormalities were noted. Next, 5-mm ports were placed in the subxiphoid region and in the right upper quadrant and in the lateral aspect of the right mid abdominal wall. The fundus of the gallbladder was then grasped and retracted in a cephalad direction. The infundibulum was then placed under lateral traction and pulled inferiorly. Sharp and blunt dissection using hook cautery and graspers was used to free the gallbladder of any peritoneal attachments. Hook cautery was then used to completely skeletonize the cystic artery and cystic duct completely clearing the triangle of Calot and achieving a critical view of safety. The cystic duct was doubly clipped and divided. The cystic artery was similarly clipped and divided. Hook cautery was then used to free the gallbladder from the liver bed. After adequate hemostasis was assured on the liver bed, the gallbladder was removed using an endoscopic retrieval bag. Re-inspection of the abdominal cavity revealed no ongoing bleeding or bile spillage or leak. All ports were then removed under direct vision. Fascia to the 10-mm port site was closed using 0-Vicryl suture followed by running subcuticular 4-0 monocryl suture to all port sites, Steri-Strips and Band-Aids to all skin sites. The patient returned to the Recovery Room in stable condition. Sponge and instrument counts were correct. Specimen Sent to Pathology: Gallbladder and contents. Infection Bundle used? N/A Attestation: Case Date: 07/27/2015 I was present and I participated during the entire procedure (does not need to include opening and closing). KULWANT PONCE MD 07/27/2015 Associated attestation - Fabricio Garnt MD - 07/30/2015 6:32 AM EDT Attestation: Case Date: 07/27/2015 I was present and I participated during the entire procedure (does not need to include opening and closing). FABRICIO GRANT MD 07/30/2015 documented in this encounter Plan of Treatment Upcoming Encounters Date Type Specialty Care Team Description 08/06/2022 Office Visit Plastic Surgery Peña Woodward MD [facility] PLASTIC SURGERY [place] [id number] (Wo rk) 08/19/2022 Office Visit Podiatry Tom Titus DPM [place], [place] [address] (Wo rk) 09/08/2022 Office Visit Internal Medicine Janay Hay MD [facility] GENERAL INTERNAL MEDICINE [place], [place] [address] (Wo rk) 10/12/2059 Hospital Encounter Surgery Jim Hanley MD [facility] SPINE CENTER [place], [place] [address] (Wo rk) Scheduled Procedures Name [...] Date/Time Associated Comments Diagnosis POCT GLUCOSE Routine 07/27/2015 2:47 Results for this PM EDT procedure are i n the results section. SURGICAL PATHOLOGY Routine 07/27/2015 2:08 Result s for this REPORT PM EDT procedure are i n the results section. SPECIMEN TO PATHOLOGY Routine 07/27/2015 2:08 Res ults for this PM EDT procedure are i n the results section. LAPAROSCOPIC 07/27/2015 12:47 gallstones CHOLECYSTECTOMY (WRVU PM EDT 10.47) POCT GLUCOSE Routine 07/27/2015 11:16 Results for this AM EDT procedure are i n the results section. ECG SCAN 07/27/2015 12:00 AM EDT FILM LIBRARY STORAGE Routine 10/03/2014 12:00 Pain Res ults for this ONLY CT ABDOMEN AND AM EST procedur e are in PELVIS the results section. documented in this encounter Results POCT Glucose (07/27/2015 2:47 PM EDT) P athologist Signature POC Glucose 167 65 - 199 CERNER mg/dL [employer] Comment: Supplemental ranges: <140 mg/dL before meals <180 mg/dL all other times of the day Specimen Anatomical Collection Method Collection Time Receive d Time (Source) Location / / Volume Laterality Blood specimen 07/27/2015 2:47 PM 015 2:47 (specimen) EDT PM EDT Fabricio Grant MD POINT OF CARE TEST ORDERABLE S Performing Organization Address City/State/[place] [address] CERNER [employer] Surgical Pathology Report (07/27/2015 2:08 PM EDT) Component Value Ref Test Analysis Performed At [facility] Range Method Time Signature Surgical The signing pathologist has (i) examined the relevant preparation(s) for the [facility] Pathology specimen(s) and (ii) rendered or confirmed the diagnosis(e s). [employer] Report Accession Number: [id number] ?Location: . ?Surgic al Pathology DIAGNOSIS Gallbladder, cholecystectomy: Chronic cholecystitis and cholelithiasis. CR-0 07/27/15 DNT 07/31/15 Verified by: ? Abdullahi Bermudez MD ?Pathologist ?(Electronic Signature ) The attending pathologist whose signature appears on this re port has reviewed all diagnostic slides and has edited the gross and/ or microscopic portion of the report in lisa dering the final pathologic diagnosis. CLINICAL INFORMATION Specimen Submitted: A - Gallbladder Clinical History: Gallstones Clinical Diagnosis: Same SPECIMEN PROCESSING Labeled/Fixative: Gallbladder, fresh. Quantity/Size: Single, 8.0 cm in length x 2.2 cm in diameter . Specimen Description: Intact. ??External surface: [place]-lyons with abundant adipose tissue. ??Lumen contents: Hemorrhagic yellow bile. ? Gallstones: There is a single 1.5 cm granular y ellow-green cholelith. ??Mucosa: Honeycombed red-lyons with faint yellow stippling. ??Wall: 0.1 cm in thickness. ??Duct: 0.2 cm, patent. ??Lymph Node: Not identified. Sections/Processing: Represe ntative sections of the duct and wall are submitted (R1) ??bda Specimen (Source) Anatomical Collection Method Collection Time Re ceived Time Location / / Volume Laterality 07/27/2015 2:08 PM EDT Fabricio Grant MD PATHOLOGY/CYTOLOGY ORDERABLE S Performing Organization Address City/[facility]/ZIP Code Phon e Number [address] CERNER [facility] Specimen to Pathology (surgical or derm) (07/27/2015 2:08 PM EDT) Specimen Anatomical Collection Method Collection Time Receive d Time (Source) Location / / Volume Laterality AP Specimen 07/27/2015 2:08 PM 5 2:08 EDT PM EDT Narrative CERNER [facility]ILLENNIUM - 07/27/2015 2:08 PM E DT Specimen requisition ordered. ??Separate Pathology report to follow Fabricio Grant MD PATHOLOGY/CYTOLOGY ORDERABLE S Performing Organization Address City/[facility]/[place] [address] CERNER [facility] POCT Glucose (07/27/2015 11:16 AM EDT) P athologist Signature POC Glucose 104 65 - 199 CERNER mg/dL [facility] Comment: Supplemental ranges: <140 mg/dL before meals <180 mg/dL all other times of the day Specimen Anatomical Collection Method Collection Time Receive d Time (Source) Location / / Volume Laterality Blood specimen 07/27/2015 11:16 5 (specimen) AM EDT 11:16 AM EDT Fabricio Grant MD POINT OF CARE TEST ORDERABLE S Performing Organization Address City/[facility]/[place] [address] CERNER [facility]NI[facility] SCAN DOC: ECG (07/27/2015 12:00 AM EDT) Narrative This result has an attachment that is no t available. Scanning Provider MEDIA MGR SCAN EXT ORDR/RSLT Film Library- Storage Only CT Abdomen & Pelvis (10/03/2014 12:00 AM EST) Specimen (Source) Anatomical Location Collection Method / Collectio n Time Received Time / Laterality Volume Narrative User, Generic Transmittal - 07/27/2015 1 0:07 AM EDT See PACS for result report. Fabricio Grant MD IMG FILM LIBRARY ORDERABLES documented in this encounter Visit Diagnoses Diagnosis Pain Generalized pain documented in this encounter Administered Medications Inactive Administered Medications - up to 3 most recent administrations Medication Order MAR Action Action Date Dose Rate Site fentaNYL (PF) 50 mcg/mL 2mL Given 07/27/2015 3:19 PM EDT 50 mcg syringe 50 mcg, Intravenous, EVERY 5 MIN PRN, Pain, for 5-10 pain score, Starting on Thu07/27/15 at 1459, Until Thu07/27/15 at 2041, for 5-10 pain score Hold for respiratory rate less than 10 per minute. Maximum dose: 250 mcg over one hour., PACU Recovery oxyCODONE (ROXICODONE) immediate release tablet Given 07/27/2015 3:16 PM EDT 5 mg 5 mg 5 mg, Oral, EVERY 4 HOURS PRN, Starting on Thu07/27/15 at 1445, Until Thu07/27/15 at 204, Pain, Routine prochlorperazine (COMPAZINE) injection 5 mg Given 07/27/2015 3:12 PM EDT 5 mg 5 mg, Intravenous, EVERY 30 MIN PRN, 2 doses, Starting on Thu07/27/15 at 1459, Until Thu07/27/15 at 204, Nausea, May repeat 5 mg once in 30 minutes. If multiple antiemetics ordered, use ondansetron first and if ineffective use prochlorperazine second and if ineffective use promethazine, PACU Recovery, Routine promethazine (PHENERGAN) injection 12.5 mg Given 07/27/2015 3:22 PM EDT 12.5 mg 12.5 mg, Intravenous, EVERY 30 MIN PRN, 2 doses, Starting on Thu07/27/15 at 1508, Until Thu07/27/15 at 204, Nausea, If multiple antiemetics ordered, use ondansetron first and if ineffective use prochlorperazine second and if ineffective use promethazine, PACU Recovery, Routine documented in this encounter Active and Recently Administered Medications Times are shown in EDT. Scheduled Medication Order 07/25/2015 07/26/2015 07/27/2015 acetaminophen (TYLENOL) tablet 1,000 mg 1800 (Due) 1,000 mg, Oral, EVERY 6 HOURS WHILE AWAK E, First dose on Thu07/27/15 at 1800, Until Discontinued, Maximum dose of acetaminophen is 4000 mg from all sources in 24 hours., Routine ceFAZolin (ANCEF) 2g in dextrose 5% 50 mL (COMPLETED) 1302 (Given - Provider: Bruce Islas MD) 2 g, Intravenous, EVERY 3 HOURS, 1 dose, First dose on Thu07/27/15 at 1100, for 30 Minutes, Intra-Operative (Intra-Procedure), Indication for (Active or Suspected): Prophylaxis PRN Medication Order 07/25/2015 07/26/2015 07/27/2015 BUpivacaine (PF) (MARCAINE) 0.5 % (5 mg/mL) injection (CANCELED) 1344 (Given - Provider: Fabricio Grant MD) ONCE PRN, Starting Thu07/27/15 at 1344, Until Thu07/27/15 at 2041, Intra- Operative (Intra-Procedure), Routine fentaNYL (PF) 50 mcg/mL 2mL syringe (CANCELED) 1514 (See Alternative - Provider: Jason Jeffries RN)1519 (Given - Provider: Jason Jeffries RN) 50 mcg, Intravenous, EVERY 5 MIN PRN, St arting Thu07/27/15 at 1459, Until Thu07/27/15 at 2041, Pain, for 5-10 pain score, for 5-10 pain score Hold for respiratory rate less than 10 per minute. Maximum dose: 250 mcg over one hour., PACU Recovery, Routine lidocaine (XYLOCAINE) 10 mg/mL (1 %) injection (CANCELED) 1349 (Given - Provider: Fabricio Grant MD) ONCE PRN, Starting Thu07/27/15 at 1349, Until Thu07/27/15 at 2041, Intra- Operative (Intra-Procedure), Routine oxyCODONE (ROXICODONE) immediate release tablet 5 mg 1516 (Given - Provider: Jason Jeffries RN) 5 mg, Oral, EVERY 4 HOURS PRN, Starting Thu07/27/15 at 1445, Until Thu07/27/15 at 2042, Pain, Routine prochlorperazine (COMPAZINE) injection 5 mg (CANCELED) 1512 (Given - Provider: Jason Jeffries RN) 5 mg, Intravenous, EVERY 30 MIN PRN, 2 d oses, Starting Thu07/27/15 at 1459, Until Thu07/27/15 at 2042, Nausea, May repeat 5 mg once in 30 minutes. If multiple antiemetics ordered, use ondansetron fi rst and if ineffective use prochlorperaz ine second and if ineffective use promethazine, PACU Recovery, Routine promethazine (PHENERGAN) injection 12.5 mg (CANCELED) 1522 (Given - Provider: Jason Jeffries RN) 12.5 mg, Intravenous, EVERY 30 MIN PRN, 2 doses, Starting Thu07/27/15 at 1508, Until Thu07/27/15 at 2042, Nausea, If multiple antiemetics ordered, use ondansetron first and if ineffective use prochl orperazine second and if ineffective use promethazine, PACU Stephen very, Routine documented in this encounter Care Teams Business Investor Relationship Specialty Start Date End Date Peña Sherman MD PCP - General 04/06/15 01/31/[address] [address] documented as of this encounter
--- OUTSIDE RECORDS SUMMARY | 2022-07-12 00:56 | XMS_ITS | Encounter Summary ---
:1965 Author Organization [facility] Address [facility] [place] [address] Care Team Providers Name Role Phone ePña Sherman MD Primary Care Provider Reason for Visit Reason Comments Decreased Visual Acuity Encounter Details Date Type Department Care Team Description 07/25/2015 Office Visit Ophthalmology [facility] Payal Erwin Type 2 diabetes mellitus wit hout complication; [facility], OD Bilateral dry eyes; Drive [facility] Myopia of both eyes with ast [place]mat[place] [address] CENTER [phone] OPHTHALMOLOGY DEPT. [place], [place] [address] Social History Tobacco Use Types [...] of this encounter Progress Notes Payal Erwin, ERIC - 07/29/2015 7:36 PM EDT Emmanuelle Bynum is a 49 y.o. female who had concerns including Decreased Visual Acuity. No diabetic retinopathy. Dry eyes doing OK on current regimen. Rx updated. Assessment: Encounter Diagnoses Name Primary? Type 2 diabetes mellitus without complication ??? Bilateral dry eyes ??? Myopia of both eyes with astigmatism and presbyopia Plan: 1)Refractive Error - MRx given to patient. 2)DM - pt ed re: importance of good bs control and yearly eye exam 3)continue with Restasis bid, AT gloria prn, fish oil, BS scrubs and compresses daily Follow up: CEE 1 year. Eyeglass Final Rx Eyeglass Final Rx Sphere Cylinder [place] Right -0.75 +0.25 150 Left -0.75 +0.50 040 Type: distance Expiration Date: 07/25/2017 Eyeglass Final Rx #2 Sphere Cylinder [place] Right +1.00 +0.25 150 Left +1.00 +0.50 040 Type: reading Expiration Date: 07/25/2017 documented in this encounter Plan of Treatment Upcoming Encounters Date Type Specialty Care Team Description 08/06/2022 Office Visit Plastic Surgery Peña Woodward MD [facility] PLASTIC SURGERY [place], [place] [address] (Wo rk) 08/19/2022 Office Visit Podiatry Tom Titus, ALEXANDRAM [facility] [address] [place], [place] [address] (Wo rk) 09/08/2022 Office Visit Internal Medicine Janay Hay MD [facility] GENERAL INTERNAL MEDICINE [place], [place] [address] (Wo rk) 10/12/2059 Hospital Encounter Surgery Jim Hanley MD [facility] SPINE CENTER [place], [place] [address] (Wo [...] Diagnosis Type 2 diabetes mellitus without complic ation Bilateral dry eyes Tear film insufficiency, unspecified Myopia of both eyes with astigmatism and presbyopia documented in this encounter Care Teams Director Of Teenage Activities Relationship Specialty Start Date End Date Peña Sherman MD PCP - General 04/06/15 01/31/16 [place] [address] documented as of this encounter
--- OUTSIDE RECORDS SUMMARY | 2022-07-12 00:56 | XMS_ITS | Encounter Summary ---
:1965 Author Organization [facility] Address [facility] [place] [address] Care Team Providers Name Role Phone Peña Sherman MD Primary Care Provider Reason for Visit Reason Comments Medication Refill Encounter Details Date Type Department Care Team Description 06/14/2015 Refill Neurology at [facility] Charlie Flor, [facility] Kevin castañ[place] [address] [facility] [phone] NEUROLOGY DEPT. [place], [place] [address] Social History Tobacco Use Types [...] Woodward MD [facility] PLASTIC SURGERY [place] [phone] (Wo rk) 08/19/2022 Office Visit Podiatry Tom Titus DPM [place], [place] [address] (Wo rk) 09/08/2022 Office Visit Internal Medicine Janay Hay MD [facility] GENERAL INTERNAL MEDICINE [place], [place] [address] (Wo rk) 10/12/2059 Hospital Encounter Surgery Jim Hanley MD [facility] SPINE CENTER [place], [place] [address] (Wo rk) Scheduled Procedures Name [...] on filedocumented in this encounter Care Teams Classics Teacher Relationship Specialty Start Date End Date Peña Sherman MD PCP - General 04/06/15 01/31/16 [place] [address] documented as of this encounter
--- OUTSIDE RECORDS SUMMARY | 2022-07-12 00:56 | XMS_ITS | Encounter Summary ---
:1965 Author Organization [facility] Address [facility] [place] [address] Care Team Providers Name Role Phone Peña Sherman MD Primary Care Provider Encounter Details Date Type Department Care Team Description 06/22/2015 Notes Only Pain Management at L Jason Pierson [place] [facility] [place] [address] PAIN CLINIC [phone] [place] [phone] (Wo rk) Social History Tobacco Use Types [...] encounter Progress Notes Jason Mcknight MD - 06/22/2015 12:43 PM EDT Urine toxicology results are consistent with medication prescribed and show no aberrancies. THC is present, but in decreased amounts reflecting a cessation of usage. This will be followed. JASON MCKNIGHT MD documented in this encounter Plan of Treatment Upcoming Encounters Date Type Specialty Care Team Description 08/06/2022 Office Visit Plastic Surgery Peña Woodward MD [facility] PLASTIC SURGERY [place] [phone] (Wo rk) 08/19/2022 Office Visit Podiatry Tom Titus DPM [place], [place] [address] (Wo rk) 09/08/2022 Office Visit Internal Medicine Janay Hay MD [facility] GENERAL INTERNAL MEDICINE [place], [place] 1 (Wo rk) 10/12/2059 Hospital Encounter Surgery Jim Hanley MD [facility] SPINE CENTER [place] [address] (Wo rk) Scheduled Procedures Name Priority Associated [...] on filedocumented in this encounter Care Teams Coverer Relationship Specialty Start Date End Date Peña Sherman MD PCP - General 04/06/15 01/31/16 [place] [address] documented as of this encounter
--- OUTSIDE RECORDS SUMMARY | 2022-07-12 00:56 | XMS_ITS | Encounter Summary ---
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 [phone] [place], [place] [address] Social History Tobacco Use Types [...] documented as of this encounter Progress Notes Geeta Mcqueen, SHELLY - 07/10/2015 10:17 AM EDT CC: Chronic migraine S: no new sx or presentation. Had [place] infection over the summer- fully resolved now. MIDAS 35, DAYs Pain 06/21 O: A/O x 3 in NAD A: Chronic Migraine P: 1. 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 documented in this encounter Plan of Treatment Upcoming Encounters Date Type Specialty Care Team Description 08/06/2022 Office Visit Plastic Surgery Peña Woodward MD [facility] PLASTIC SURGERY [place], [place] [address] (Wo rk) 08/19/2022 Office Visit Podiatry Tom Titus DPM [place], [place] [address] (Wo rk) 09/08/2022 Office Visit Internal Medicine Janay Hay MD [facility] GENERAL INTERNAL MEDICINE [place], [place] [address] (Wo rk) 10/12/2059 Hospital Encounter Surgery Jim Hanley MD [facility] SPINE CENTER [place], [place] [address] (Wo rk) Scheduled Procedures Name [...] Site botulinum toxin type A (BOTOX) Given 07/10/2015 10:23 AM EDT 155 Units injection 155 Units 155 Units, Intramuscular, ONCE, 1 dose, On Thu07/10/15 at 1045, Routine documented in this encounter Care Teams Java Groovy Developer Relationship Specialty Start Date End Date Peña Sherman MD PCP - General 04/06/15 01/31/16 [place] [address] documented as of this encounter
--- OUTSIDE RECORDS SUMMARY | 2022-07-12 00:56 | XMS_ITS | Encounter Summary ---
:1965 Author Organization [facility] [place] [address] Care Team Providers Name Role Phone Tirso Chris MD Primary Care Provider Reason for Visit Reason Onset Date Comments Questions 07/31/2015 Encounter Details Date Type Department Care Team Description 07/31/2015 Telephone General Surgery at [facility] Stefanie Barfield RN [facility] [place] [address] Social History Tobacco Use Types Packs/Day Years [...] this encounter Miscellaneous Notes Telephone Encounter - Stefanie Barfield RN - 07/31/2015 9:41 AM EDT Nursing Triage - Phone Note DATE OF CALL: 07/31/2015 TIME OF CALL: 9:41 AM PATIENT DATE OF : 1965 CALLER: Pt to the General Surgery Learning Needs Assessment Reviewed: Yes ; SUBJECTIVE - I have a few questions. PERTINENT PAST MEDICAL HISTORY: Expand All Collapse All [facility] Operative Note Patient Name: Emmanuelle Bynum : [id number] MR#: [id number] Case Date: 07/27/2015 Surgeon: Surgeon(s) and Role: * Fabricio Grant MD - Primary * Raymond Thompson MD - Resident Federico Preoperative diagnosis: Symptomatic cholelithiasis Postoperative diagnosis: Same Procedure(s): LAPAROSCOPIC CHOLECYSTECTOMY Anesthesia: General Estimated Blood Loss: 3cc Specimens removed during surgery: Gallblader Drains: NURSING OBJECTIVE/ASSESSMENT: Placed call to the patients phone and she is not set up to receive. . . INTERVENTION/PLAN/ FOLLOW UP: Will try again If your symptoms do not improve, or they worsen, report to your local emergency department. CALLER AGREES: No PCP: TIRSO CHRIS MD (General) documented in this encounter Plan of Treatment Upcoming Encounters Date Type Specialty Care Team Description 08/06/2022 Office Visit Plastic Surgery Tirso Woodward MD [facility] PLASTIC SURGERY [place], [place] [address] (Wo rk) 08/19/2022 Office Visit Podiatry Tom Titus DPM [place], [place] [address] (Wo rk) 09/08/2022 Office Visit Internal Medicine Janay Hay MD [facility] GENERAL INTERNAL MEDICINE [place], [place] [address] (Wo rk) 10/12/2059 Hospital Encounter Surgery Jim Hanley MD [facility] SPINE CENTER [place], [place] [address] (Wo rk) Scheduled Procedures Name [...] on filedocumented in this encounter Care Teams Content Development Specialist Relationship Specialty Start Date End Date Tirso Chris MD PCP - General 04/06/15 01/31/16 YAN [place] [phone] documented as of this encounter
--- OUTSIDE RECORDS SUMMARY | 2022-07-12 00:56 | XMS_ITS | Encounter Summary ---
:1965 Author Organization [facility] Address [facility] [place] [address] Care Team Providers Name Role Phone Peña Sherman MD Primary Care Provider Encounter Details Date Type Department Care Team Description 11/13/2015 Orders Only Neurology at [facility] Ana Aguayo [facility] [place] [address] Social History Tobacco Use Types Packs/Day [...] MD [facility] PLASTIC SURGERY [place], [place] [address] (Wo rk) 08/19/2022 Office Visit Podiatry Tom Titus DPM [place], [place] [address] (Wo rk) 09/08/2022 Office Visit Internal Medicine Janay Hay MD [facility] GENERAL INTERNAL MEDICINE [place], [place] [address] (Wo rk) 10/12/2059 Hospital Encounter Surgery Jim Hanley MD [facility] SPINE CENTER [place], [place] [address] (Wo rk) Scheduled Procedures Name [...] on filedocumented in this encounter Care Teams Chief Executive Or Managing Director Relationship Specialty Start Date End Date Peña Sherman MD PCP - General 04/06/15 01/31/16 YAN Edgar [address] [place] [address] documented as of this encounter
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
--- OUTSIDE RECORDS SUMMARY | 2022-07-12 00:56 | XMS_ITS | Encounter Summary ---
:1965 Author Organization [facility] Address [address] [address] Care Team Providers Name Role Phone Peña Sherman MD Primary Care Provider Reason for Visit Reason Comments Psoriasis Encounter Details Date Type Department Care Team Description 07/10/2015 Follow-Up Dermatology at [facility] Jacob Blair soriasis; Road III, MD Becerril cheilitis [address] [place] [address] [address] [facility] [address]-DER[address] [phone] [place] [id number] (Wo rk) Social History Tobacco Use Types [...] as of this encounter Progress Notes Akosua Coronel LPN - 07/10/2015 11:48 AM EDT DERMATOLOGY ESTABLISHED PATIENT CLINIC NOTE Date of service: 07/10/2015 Emmanuelle Bynum : 1965 Provider: Jacob Blair MD PROBLEM: psoriasis/ sebopsoriasis - nape of neck SKIN HISTORY: Rec Date: 08/03/2012 LOC: 4M ---Pathologic Diagnosis--- A - Skin, left forehead, shave biopsy: Compound nevus, involving the deep biopsy edge. B - Skin, left jawline, shave biopsy: Intradermal nevus, involving the deep biopsy edges. Seborrheic keratoses Psoriaisis HPI Emmanuelle Bynum is a 49 y.o. year old female. She is an established patient of mine here for a recheck of her scalp psoriasis. She is in pain at present due to spinal issues. Her scalp psoriasis has been a problem this winter. She used Taclonex scalp solution 2-3 days a weekif needed and Clobetasol foam for the weekends if needed ADR: Allergies Allergen Reactions ??? Methadone Nausea And Vomiting CURRENT MEDICATIONS: Current Outpatient Prescriptions Medication Sig Dispense Refill ??? OXYCONTIN 30 mg Tablet Sustained Release 12 hr Take 1 tablet every 12 hours for 21 days 42 tablet 0 ??? oxyCODONE-acetaminophen (PERCOCET) 7.5-325 mg Tablet Take 1 tablet by mouth every 4 hours as needed for Pain. No more than 3 per day X 21 days 63 tablet 0 ??? lidocaine (XYLOCAINE) 5 % Ointment APPLY TOPICALLY TO THE AFFECTED AREA EVERY 8 HOURS NEEDED FOR CERVICALGIA 35.44 g 0 ??? fluconazole (DIFLUCAN) 200 mg Tablet Take 200 mg by mouth daily. ??? metroNIDAZOLE (METROGEL) 0.75 % Gel Place vaginally 2 times daily. ??? Betamethasone-Calcipotriene (TACLONEX SCALP) 0.005-0.064 % Suspension Apply 3 times a week to scalp for psoriasis 60 g 2 ??? Clobetasol-Emollient 0.05 % Foam Apply twice daily to scalp psoriasis on weekends as needed 100 g 1 ??? sucralfate (CARAFATE) 1 gram Tablet Take 1 g by mouth 3 times daily. ??? Lidocaine 5 % Cream Apply to neck three times daily as needed. 45 g 3 ??? cetirizine (ZYRTEC) 10 mg Tablet Take 1 tablet by mouth daily as needed for Allergies. As neededfor itching. 60 tablet 3 ??? montelukast (SINGULAIR) 10 mg Tablet Take 10 mg by mouth nightly. Indications: Allergic Rhinitis ??? fluticasone (VERAMYST) 27.5 mcg/actuation [place], Suspension 2 sprays by Nasal route daily. [...] 3 times daily. 90 tablet 0 ??? gabapentin (NEURONTIN) 300 mg Capsule Take 1 capsule in the morning, 1 capsule afternoon and 2 capsules at night. 120 capsule 5 ??? gabapentin (NEURONTIN) 600 mg Tablet Take 1 tablet by mouth 3 times daily. 90 tablet 5 ??? clobetasol (TEMOVATE) 0.05 % Solution Apply topically 2 times a day for worse areas of scalp psoriasis for 2 weeks only 50 mL 1 ??? cycloSPORINE (RESTASIS) 0.05 % Dropperette Place 1 drop into both eyes every 12 hours. 60 vial 11 ??? ondansetron (ZOFRAN) 4 mg tablet Take [...] ??? INSULIN DETEMIR (LEVEMIR FLEXPEN SUBQ) Inject 70 Units subcutaneously 2 times daily. ??? insulin aspart (NOVOLOG) 100 unit/mL pen injection Inject 2-8 Units subcutaneously 4 times daily. Sliding scale ??? lisinopril (PRINIVIL;ZESTRIL) 10 mg tablet Take 10 mg by mouth daily. ??? aripiprazole (ABILIFY) 30 mg tablet Take 30 mg by mouth daily. ??? esomeprazole (NEXIUM) 40 mg capsule Take 40 mg by mouth 2 times daily. No current facility-administered medications for this visit. PROBLEM LIST: Patient Active Problem List Diagnosis Code ??? 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 Chronic migraine without aura 346.70 ??? Whiplash 847.0 ??? Leukocytosis 288.60 ??? Asthma 493.90 ??? Diabetes mellitus 250.00 ??? Hypothyroid 244.9 ??? Depression 311 ??? GERD (gastroesophageal reflux disease) 530.81 ??? Chronic UTI 599.0 ??? Sleep apnea 780.57 ??? Bilateral shoulder pain 719.41 ??? Carpal tunnel syndrome on both sides 354.0 ??? Left elbow pain 719.42 ??? Ankle weakness 719.67 ??? Cervical radicular pain 723.4 ??? Atypical nevus of back 216.5 ??? Type 2 diabetes mellitus 250.00 ??? MGD (meibomian gland dysfunction) 373.00 ??? Dry eyes 375.15 ??? Seborrheic keratosis, inflamed 702.11 ??? Irritated nevus of face 216.3 ??? Myopia with astigmatism and presbyopia 367.1, 367.20, 367.4 ??? Lesion of skin of face 709.9 ??? Dermatofibroma 216.9 ??? Accessory skin tags 757.39 ??? Chronic neck pain 723.1, 338.29 ??? Hemangioma - left shoulder M9120/0 ??? Spider veins - lower legs 448.1 ??? DDD (degenerative disc disease), cervical 722.4 ??? Encounter for long-term (current) use of other medications V58.69 ??? Cervical disc displacement 722.0 ??? Cervical radiculitis 723.4 ROS General: feeling well. Oriented X 3. Skin: denies other skin complaints EXAM General: NAD, pleasant, cooperative Skin: Significant skin findings: A. Occipital scalp - well defined erythematous plaques and papules with thick white scale . 2-3 hyperkeratotic areas that are excoriated and lichenified from scratching. B. Fissures at both corners of mouth- mild at present - but worse at times. No other areas of active psoriasis are noted. ASSESSMENT/PLAN A. 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 She will continue toapply the clobetasol foam 4 days per week and Taclonex 3 days a week. She should wean off the clobetasol as the areas clear and save this more potent steroid for flares. I suggested we try Kenalog injections for the prurigo areas and she agreed. Kenalog 5 mg/mL injected intra- lesional in to 3 areas, total 0.5 mL. Discussed indication for this procedure and potential side effects including ulceration and skin atrophy. B. Angular cheilitis - I discussed this condition with the patient and explored therapeutic options.I recommended she apply Desonide and Ketoconazole creams together twice daily as needed - stop a sitclears and use vaseline to prevent recurrence of the lesions. RTC -6 Months - when she returns from [place]- Call if areas do not resolve as expected or problemsarise. I am documenting this encounter acting as the scribe for and in the presence of Dr. Blair.: AKOSUA CORONEL LPN I performed the above scribed service and agree with the accuracy of the documentation in this encounter. Jacob Blair MD Section of Dermatology [facility] documented in this encounter Plan of Treatment Upcoming Encounters Date Type Specialty Care Team Description 08/06/2022 Office Visit Plastic Surgery Peña Woodward MD [facility] PLASTIC SURGERY [place], [place] [address] (Wo rk) 08/19/2022 Office Visit Podiatry Tom Titus DPM [place], [place] [address] (Wo rk) 09/08/2022 Office Visit Internal Medicine Janay Hay MD [facility] GENERAL INTERNAL MEDICINE [place], [place] [address] (Wo rk) 10/12/2059 Hospital Encounter Surgery Jim Hanley MD [facility] SPINE CENTER [place], [place] [address] (Wo rk) Scheduled Procedures Name [...] encounter Visit Diagnoses Diagnosis Psoriasis Other psoriasis Angular cheilitis Diseases of lips documented in this encounter Administered Medications Inactive Administered Medications - up to 3 most recent administrations Medication Order MAR Action Action Date Dose Rate Site triamcinolone acetonide (KENALOG) Given 07/10/2015 12:02 PM EDT 5 mg injection 5 mg 5 mg, Intra-Lesional, ONCE, 1 dose, On Tu07/10/15 at 1230, Routine documented in this encounter Care Teams Criminal Justice Professor Relationship Specialty Start Date End Date Peña Sherman MD PCP - General 04/06/15 01/31/16 [address] [place] [address] documented as of this encounter
--- OUTSIDE RECORDS SUMMARY | 2022-07-12 00:56 | XMS_ITS | Encounter Summary ---
:1965 [place] [address] Care Team Providers Name Role Phone Peña Sherman MD Primary Care Provider Encounter Details Date Type Department Care Team Description 07/27/2015 Anesthesia Event Main Operating Room Brooke Brown MD [facility] DR [place] [address] [facility] Bruce Islas MD [facility] DR ANESTHESIOLOGY [place] [address] [place] [address] Anesthesia Record Procedure Summary Procedure Name Responsible Anesthesia Start Anesthesia Stop Anesthesiologist Time Time LAPAROSCOPIC Keli Brown MD 07/27/15 1248 07/27/15 1448 CHOLECYSTECTOMY (WRVU 10.47) (N/A Abdomen) Events Date Time Event Comment 07/27/2015 1225 1248 Start 1251 AN Verify 1251 An Start Data 1255 An Induction 1258 An Intubation 1302 Anesthesia Ready 1315 Break/Relief In Maribel JENKINS 1315 Procedure Start Time out complet e prior to surgery start. 1319 Quick Note Insufflation. 1344 Break/Relief Out 1434 Extubation/LMA Out To Delete (sk ip) the Extubation event, click the X below. 1436 an stop data 1448 Stop Name Total Midazolam 2 mg fentaNYL 100 mcg IV Lidocaine 40 mg Propofol 200 mg Rocuronium 50 mg PHENYLephrine 80 mcg Ondansetron 4 mg Neostigmine 4 mg Glycopyrrolate 0.4 mg ceFAZolin (ANCEF) 2g in dextrose 5% 50 mL 2 g HYDROmorphone 0.8 mg Lactated Ringers 700 mL Agents Name O2 Air N2O Sevoflurane (et) Blood No blood administrations on file. Lines, Drains, and Airways Type Details Placement Removal Incision 07/27/15; abdomen; 07/27/15 0000 by 02/13/21 000 0 by laparoscopic punctures Emmanuelle Wright RN M urray-Duches[place], (specify) (multiple trocar Victor M Cox RN sites. ); LDA not present upon assessment; 02/13/21 PIV 07/27/15; 1053; metacarpal 07/27/15 1053 by 07/12 03/26 1717 by vein right (top of hand); Diandra Lopes RN Dennis, Karen E, RN afdr-qyx-tthysa catheter system; 1 in length, 18 gauge; Calvin Lubin RN ; distraction, intradermal injection; no longer indicated, catheter intact; 07/27/15; 171 ETT Mask Ventilation: Easy (1); 07/27/15 1258 by Dariana dominguez, 07/27/15 1434 by Janel, ETT Type: Cuffed, Oral; ETT MD Christopher Olmstead MD Size: 7 mm; Indirect:Video (CMA due to limited neck ROM); Notes: Asleep; Attempts: 1; Laryngoscopy Grade: 1; ETT Placement Verified By: Auscultation, Capnometry, Visual; Secured at Teeth: 22 cm; Intubation Injury: Dental, Soft Tissue, Other; Inserted by: Janel NG/OG Tube 07/27/15; 1259; orogastric; 07/27/15 1259 by Dariana dominguez, 12/24/17 0810 by 18 Fr; mouth; Secured; MD Janet Olmstead A nne A, RN 12/24/17; 0810 documented in this encounter Social History Tobacco [...] encounter OR Notes Anesthesia Postprocedure Evaluation - Bruce Islas MD - 07/27/2015 3:46 PM EDT Patient: Emmanuelle Bynum Procedure(s) Performed: Procedure(s): LAPAROSCOPIC CHOLECYSTECTOMY Actual Anesthetic: general Patient location: PACU Post-op pain: Mild discomfort and abdominal pain. Pain medication ordered. Post-op nausea: sour taste and some nausea. Last Vitals: Filed Vitals: 07/27/15 1519 BP: Pulse: 80 Temp: Resp: 16 Post-op cardiovascular and respiratory status: is stable. Breathing comfortably Level of consciousness: awake, alert and oriented Complications: no apparent complications and tolerated the procedure well Fluid Status: normal Anesthesia Preprocedure Evaluation - Bruce Islas MD - 07/26/2015 6:43 PM EDT Pre-Anesthesia Evaluation for: Emmanuelle Bynum a 49 y.o. female. Procedure(s): LAPAROSCOPIC CHOLECYSTECTOMY WITH CHOLANGIOGRAM Patient Active Problem List Diagnosis ??? Cervical disc displacement ??? Cervical radiculitis ??? Encounter for long-term (current) use of other medications ??? DDD (degenerative disc disease), cervical ??? Hemangioma - left shoulder ??? Spider veins - lower legs ??? Chronic neck pain ??? Lesion of skin of face ??? Dermatofibroma ??? Accessory skin tags ??? Seborrheic keratosis, inflamed ??? Irritated nevus of face ??? Type 2 diabetes mellitus ??? Atypical nevus of back ??? Cervical radicular pain ??? Bilateral shoulder pain With 2 surgeries for left ??? Carpal tunnel syndrome on both sides ??? Left elbow pain ??? Ankle weakness Bilateral, s/p multiple sprains ??? Leukocytosis Chronic leukocytosis Normal hemoglobin and platelet count White count typically from 12-20,000 since 2007 principally neutrophils Impression is that of reactive process ??? Asthma ??? Diabetes mellitus Dx replacement utility run on deactivated IMO Dx [id number] ??? Hypothyroid ??? Depression ??? GERD (gastroesophageal reflux disease) ??? Chronic UTI ??? Sleep apnea ??? Whiplash ??? Chronic migraine without aura ??? Scalp psoriasis Past Medical History Diagnosis Date ??? Headache(784.0) ??? GERD (gastroesophageal reflux disease) ??? Asthma ??? Depression ??? SEB (obstructive sleep apnea) ??? Diabetes mellitus ??? Arthritis ??? Leukocytosis 06/05/2011 ??? Cardiac disease ??? Allergy ??? Neuromuscular disorder ??? Skin disease ??? Thyroid disease ??? Trauma ??? Rheumatic fever ??? Diverticulosis ??? Gallstones Past Surgical History Procedure Laterality Date ??? Orthopedic surgery left shoulder ??? Orthopedic surgery left elbow ??? Carpal tunnel release Left ??? section x2 ??? Hysterectomy History Substance Use Topics ??? Smoking status: Current Every Day Smoker -- 0.50 packs/day for 13 years Types: Cigarettes ??? Smokeless tobacco: Never Used Comment: not tryiing to quit ??? Alcohol Use: No History Drug Use No Comment: history of marijuana use, denies illicit drug use Allergies Allergen Reactions ??? Methadone Nausea And Vomiting Medications: MAR and/or home medications have been reviewed. Physical Exam: There were no vitals filed for this visit. There is no weight on file to calculate BMI. Airway Assessment: Mallampati: I TM distance: >3 FB Neck ROM: full Cardiovascular Assessment: cardiovascular exam normal Pulmonary Assessment: (-) wheezes PE comment: Coarse breath sounds bilaterally Dental Assessment: - normal exam Misc Assessment: Patient is wearing No contact(s). IV access: Peripheral line Anesthesia Plan: ASA 2 general, with a(n) intravenous induction This is a 49 y.o. female here for the following Procedure(s): LAPAROSCOPIC CHOLECYSTECTOMY WITH CHOLANGIOGRAM The patient's past medical history, past surgical history, medications, and allergies were reviewed and notable for Cervical disc disease (C6), Chronic pain (weaned off opioids recently), asthma (dailyinhalers, has been hospitalized for asthma in the past with previous intubation), DM type 2 (BS 103 in same day), GERD (Nexium BID), SEB symptoms. Patient also states that she is recovering from a recent pneumonia diagnosed approximately 2 weeks ago. Finished 10 days of levoquin 2 days previous. Minor cough, no current fevers or wheezing. Patient's documented history was negative for seizures, CVA, cardiac disease, hepatic/renal disease or coagulopathy. LABS: No results found for: HGB, PLATELET, INR, NA, K, CREATININE TYPE AND SCREEN: No results found for: ABORH ALLERGIES: -- Methadone -- Nausea And Vomiting NPO STATUS: Appropriate ANESTHETIC HISTORY: No prior anesthetic documentation in EDH. States that she has had awareness during c-sections in the past. ANESTHETIC PLAN: GA with ETT Albuterol in same day Standard ASA monitoring Adequate IV access CONSENT: The patient was informed of the risks, benefits and alternatives of anesthesia. These risks included, but were not limited to, post-operative nausea and/or vomiting, pain, sore throat, dental/lip trauma, and other rare but serious complications such as major organ damage, awareness, severe allergic reactions, position-related nerve injuries, and need blood transfusions. All questions sought and answered. Consent was signed and placed in chart. BRUCE ISLAS MD 07/26/2015 Region - Other Informed Consent: Anesthetic plan and risks discussed with patient. Plan discussed with resident. Misc. Assessment: documented in this encounter Plan of Treatment Upcoming Encounters Date Type Specialty Care Team Description 08/06/2022 Office Visit Plastic Surgery Peña Woodward MD [facility] PLASTIC SURGERY [place], [place] [address] (Wo rk) 08/19/2022 Office Visit Podiatry Tom Titus DPM [place], [place] [address] (Wo rk) 09/08/2022 Office Visit Internal Medicine Jnaay Hay MD [facility] GENERAL INTERNAL MEDICINE [place], [place] [address] (Wo rk) 10/12/2059 Hospital Encounter Surgery Jim Hanley MD [facility] SPINE CENTER [place], [place] [address] (Wo rk) Scheduled Procedures [...] Action Action Date Dose Rate Site ceFAZolin (ANCEF) 2g in dextrose 5% Given 07/27/2015 1:02 PM EDT 2 g 50 mL 2 g, Intravenous, EVERY 3 HOURS, 1 dose, First dose on Thu07/27/15 at 1100, Administer over 30 Minutes, Intra-Operative (Intra-Procedure), Indication for (Active or Suspected): Prophylaxis fentaNYL 50 mcg/mL multi-dose injection Given 07/27/2015 1:02 PM EDT 100 mcg PRN, Starting on Thu07/27/15 at 1302, Until Thu07/27/15 at 1448, Pain, Anesthesia Intra-op, Routine glycopyrrolate (ROBINUL) multi-dose inje ction Given 07/27/2015 2:18 PM EDT 0.4 mg PRN, Starting on Thu07/27/15 at 1418, Until Thu07/27/15 at 1448, Anesthesia Intra-op, Routine HYDROmorphone (DILAUDID) injection Given 07/27/2015 2:41 PM EDT 0.4 mg PRN, Starting on Thu07/27/15 at 1427, Until Thu07/27/15 at 1448, Pain, Anesthesia Intra-op, Routine Given 07/27/2015 2:27 PM EDT 0.4 mg lactated ringers infusion New Bag 07/27/2015 10:53 AM EDT CONTINUOUS PRN, Starting on Thu07/27/15 at 1053, Until Thu07/27/15 at 1448, Anesthesia Intra-op lidocaine (PF) (XYLOCAINE) 100 mg/5 mL (2 %) Given 5 1:13 PM EDT 40 mg injection PRN, Starting on Thu07/27/15 at 1313, Until Thu07/27/15 at 1448, Anesthesia Intra-op, Routine midazolam (PF) (VERSED) 1 mg/mL multi-dose Given 07/27/2015 12:4 8 PM EDT 2 mg injection PRN, Starting on Thu07/27/15 at 1248, Until Thu07/27/15 at 1448, Sleep, Anesthesia Intra-op, Routine neostigmine (PROSTIGMINE) multi-dose inj ection Given 07/27/2015 2:18 PM EDT 4 mg PRN, Starting on Thu07/27/15 at 1418, Until Thu07/27/15 at 1448, Anesthesia Intra-op, Routine ondansetron (ZOFRAN) injection Given 07/27/2015 2:18 PM EDT 4 mg PRN, Starting on Thu07/27/15 at 1418, Until Thu07/27/15 at 1448, Nausea, Anesthesia Intra-op, Routine PHENYLephrine HCl in NS (PF) (KIP-SYNEPHRINE) Given 1:28 PM EDT 80 mcg 0.8 mg/10 mL (80 mcg/mL) multi-dose injection Syrg PRN, Starting on Thu07/27/15 at 1328, Until Thu07/27/15 at 1448, Anesthesia Intra-op, Routine propofol (DIPRIVAN) 10 mg/mL bolus injection Given 12:56 PM EDT 50 mg (Anesthesia) PRN, Starting on Thu07/27/15 at 1258, Until Thu07/27/15 at 1448, Anesthesia Intra-op Given 07/27/2015 12:55 PM EDT 150 mg rocuronium (ZEMURON) multi-dose injectio n Given 07/27/2015 12:55 PM EDT 50 mg PRN, Starting on Thu07/27/15 at 1255, Until Thu07/27/15 at 1448, Anesthesia Intra-op, Routine documented in this encounter Care Teams Lay Midwife Relationship Specialty Start Date End Date Peña Sherman MD PCP - General 04/06/15 01/31/16 [place] [address] documented as of this encounter
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
--- OUTSIDE RECORDS SUMMARY | 2022-07-12 00:56 | XMS_ITS | Encounter Summary ---
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; [facility] Diabetes education, [facility] for; [address] BMI 34.0-34.9,adult; [place] [address] Nutritional assessment; [phone] Dietary alcoholic counselor ing and surveillance Social History Tobacco Use Types Packs/Day Years [...] - - Weight 99.8 kg (220 lb) 06/29/2015 1:44 PM EDT Height - - Body Mass Index 34.46 06/29/2015 11:27 AM EDT documented in this encounter Progress Notes Dayami Land, RD - 06/29/2015 3:34 PM EDT PRIMARY CARE NUTRITION -OUTPATIENT COUNSELING FOR TYPE 2 DIABETES & WEIGHT MANAGEMENT Referral from: PCP: Peña Sherman MD Patient Active Problem List Diagnosis Code ??? [...] disc displacement 722.0 ??? Cervical radiculitis 723.4 SUBJECTIVE: Guerda was very dizzy and uncomfortable on arrival did not have her blood sugar meter with her. I left it at home, since I have lost them before. I need to know what to eat to lose weight and control my diabetes. I try not to eat but then I get really hungry and over do it. She stated did not take her insulin or eat this AM before driving herself (~ 2 hour ride). We checked her BG which was 141 Guerda notes a long history of anorexia and bulimia ongoing still purges -vomits after overeating occasionally but could not specify She states she weighed ~ 100 lbs up until a hospitalization ~ 2 years ago when her BG was in 800's and she was started on insulin. Usual intake includes: Foods she buys are: Nuts, cheese, vegetables - loves Brussel sprouts - may have a cook frozen bag and have as a meal Wrap with salad and sliced meat. She likes all fruits and is concerned if they are raising her BG Drinks: mostly water Current insulin: 74 units Levemir AM and PM - Plus Novolog 2 units for each 50 points > 250 she states she sometimes misses her insulin and does not eat regularly. Home BG monitoring: Uses Freestyle lite meter (she requested a back up meter will send her one next week to have as spare) BG results: AM: 120-130 per report - run higher during day - unclear how high as she got dizzy Social: Lives alone, denied food insecurity but is on limited budget OBJECTIVE: Wt: 220 lbs BMI: 34.4 - c/w obesity Labs per scanned documents: Aic 7.4 (03/26) ASSESSMENT/PLAN: Patient is a 49 year old with a complicated medical and psychiatric history at increased risk of complications of type 2 diabetes, obesity and HLD. We reviewed some basic diet education materials on healthy sources of carbs and suggested she try tohave more regular meals to help prevent hypoglycemia. We used food models to compare usual portions & help adhere to suggested serving sizes with portion control. I provided a sample of a controlled calorie, controlled saturated fat meal plan to help include mostly high fiber, low glycemic index carbohydrate foods for heart healthy, controlled carb meals and appetite control. Written information provided: ?? My plate review of carbohydrate sources and suggested controlled carb easy meals ?? Appetite scale with list of foods for longer satiety ?? Review of symptoms and treatment of hypoglycemia with suggested more regular meals ?? Easy recipes for vegetables, beans & fish dishes Goals of Medical Nutrition Therapy: Blood sugar control as indicated by A1c in target range, and ongoing efforts toward weight management. Pt stated a fair to good understanding of how to plan for controlled carb and calorie meals to help support blood sugar & weight control. She was given my contact info and she may call me for questions. I suggested she f/u in 6-8 weeks - she preferred to call rather than set up appt today The appointment consisted of 45 minutes (shortend from 60 min due to dizziness) including direct diabetes and medical nutrition therapy, education and counseling. documented in this encounter Plan of Treatment Upcoming Encounters Date Type Specialty Care Team Description 08/06/2022 Office Visit Plastic Surgery Peña Woodward MD [facility] [place], [place] [address] (Wo josé luis) 08/19/2022 Office Visit Podiatry Tom Titus DPM [place], [place] [address] (Wo josé luis) 09/08/2022 Office Visit Internal Medicine Janay Hay MD [facility] [place], [place] [address] (Wo rk) 10/12/2059 Hospital Encounter Surgery Jim Hanley MD [facility] [place], [place] [address] (Wo rk) Scheduled Procedures [...] as of this encounter Visit Diagnoses Diagnosis Insulin dependent type 2 diabetes [facility] Type II or unspecified type diabetes álvaro litus without mention of complication, not stated as uncontrolled Diabetes education, encounter for Type II or unspecified type diabetes álvaro litus without mention of complication, not stated as uncontrolled BMI 34.0-34.9,adult Body Mass Index 34.0-34.9, adult Nutritional assessment Other specified examination Dietary counseling and surveillance Dietary surveillance and counseling documented in this encounter Care Teams Residential Mortgage Manager Relationship Specialty Start Date End Date Peña Sherman MD PCP - General 04/06/15 01/31/16 [place] [address] documented as of this encounter
--- OUTSIDE RECORDS SUMMARY | 2022-07-12 00:56 | XMS_ITS | Encounter Summary ---
:1965 Author Organization [place] [address] Care Team Providers Name Role Phone Peña Sherman MD Primary Care Provider Encounter Details Date Type Department Care Team Description 07/09/2015 Telephone [facility] [place] [address] Social History Tobacco Use Types Packs/Day [...] this encounter Miscellaneous Notes Telephone Encounter - Jody Sawyer RN - 07/09/2015 11:27 AM EDT Message left on Nurse voicemail patient states I need to know where my pain cream is it has not been called in yet also i am not sure if my medication schedule is messed up or not I would like to schedule a follow up with Dr. Mcknight Nurse attempt to call patient back no answer left message awaitingcall back at this time. documented in this encounter Plan of Treatment Upcoming Encounters Date Type Specialty Care Team Description 08/06/2022 Office Visit Plastic Surgery Peña Woodward MD [facility] PLASTIC SURGERY [place], [place] [address] (Flores ordonez) 08/19/2022 Office Visit Podiatry Tom Titus DPM [place], [place] [address] ([place] ord[place]) 09/08/2022 Office Visit Internal Medicine Janay Hay MD [facility] GENERAL INTERNAL MEDICINE [place], [place] [address] ([place] ord[place]) 10/12/2059 Hospital Encounter Surgery Jim Hanley MD [facility] SPINE CENTER [place], [place] 0375 (Wo rk) Scheduled Procedures Name [...] on filedocumented in this encounter Care Teams Cartridge Belt Puncher Relationship Specialty Start Date End Date Peña Sherman MD PCP - General 04/06/15 01/31/16 [place] [address] documented as of this encounter
--- OUTSIDE RECORDS SUMMARY | 2022-07-12 00:56 | XMS_ITS | Encounter Summary ---
:1965 Author Organization [facility] Address [address] [place] [address] Care Team Providers Name Role Phone Peña Sherman MD Primary Care Provider Reason for Visit Reason Onset Date Comments Medication Refill 07/12/2015 Encounter Details Date Type Department Care Team Description 07/12/2015 Refill [facility] Jacob Blair III, MD Psoriasis [address] [facility] [place] [address] [address]-DERMATOLGY [phone] [place], [place] [address] (Wo rk) Social History Tobacco [...] MD [facility] PLASTIC SURGERY [place] [phone] ( rk) 08/19/2022 Office Visit Podiatry Tom Titus DPM [place] [phone] ([facility]) 09/08/2022 Office Visit Internal Medicine Janay Hay MD [facility] GENERAL INTERNAL MEDICINE [place], [place] 0[address] (Wo rk) 10/12/2059 Hospital Encounter Surgery Jim Hanley MD [facility] SPINE CENTER [place], [place] 0[address] (Wo rk) Scheduled Procedures Name [...] psoriasis documented in this encounter Care Teams Mosquito Sprayer Relationship Specialty Start Date End Date Peña Sherman MD PCP - General 04/06/15 01/31/16 YAN Edgar [address] [place] [id number] documented as of this encounter
--- OUTSIDE RECORDS SUMMARY | 2022-07-12 00:56 | XMS_ITS | Encounter Summary ---
:1965 Author Organization [facility] Address [address] [place] [address] Care Team Providers Name Role Phone Peña Sherman MD Primary Care Provider Encounter Details Date Type Department Care Team Description 07/25/2015 Office Visit Neurology at [facility] Geeta Mcqueen, Migraine without aura [facility] MANAGER OF NETWORK and without status Drive [facility] migrainosus, not [place], [place] [address] NEUROLOGY DEPT. [phone] [place], [place] [address] Social History Tobacco Use Types [...] Sign Reading Time Taken Comments Blood Pressure 144/97 07/25/2015 11:08 AM EDT Pulse 92 07/25/2015 11:08 AM manual EDT Temperature - - Respiratory Rate - - Oxygen Saturation 95% 07/25/2015 11:08 AM patient re quested EDT Inhaled Oxygen Concentration - - Weight 99.8 kg (220 lb) 07/25/2015 11:08 AM per patient EDT Height 165.1 cm (5' 5) 07/25/2015 11:08 AM per patient EDT Body Mass Index 36.61 07/25/2015 11:08 AM EDT documented in this encounter Progress Notes Geeta Mcqueen APRN - 07/25/2015 11:32 AM EDT CC: Chronic migraine S: No new sx or presentation. Had [place] infection over the summer- fully resolved now. No recentinjury or illness. She is scheduled for cholecystectomy and she has pneumonia which is resolving. O: A/O x 3 in NAD A: Chronic Migraine P: 1. ONB greater and lesser bilateral;and cervical trigger point injections. Consent was obtained and a time-out was [...] The patient tolerated the procedures without any complications. documented in this encounter Plan of Treatment Upcoming Encounters Date Type Specialty Care Team Description 08/06/2022 Office Visit Plastic Surgery Peña Woodward MD [facility] PLASTIC SURGERY [place], [place] 0[address] (Wo rk) 08/19/2022 Office Visit Podiatry Tom Titus DPM [place], [place] 0375 (Wo rk) 09/08/2022 Office Visit Internal Medicine Janay Hay MD [facility] GENERAL INTERNAL MEDICINE [place], [place] 0375 (Wo rk) 10/12/2059 Hospital Encounter Surgery Jim Hanley MD [facility] SPINE CENTER [place], [place] 0[address] (Wo rk) Scheduled Orders Name Type Priority Associated Diagnoses Order S chedule Nerve Block - Neurology Routine Migraine without aura One T shabnam for 1 Occipital and without status Occurrenc es starting migrainosus, not 07/25/2015 until intractable 07/25/2015 Trigger Point Neurology Routine Migraine without aura One T shabnam for 1 Injection (3-4 and without status Occurre nces starting muscles) migrainosus, not 07/25/2015 until intractable 07/25/2015 Scheduled Procedures Name Priority Associated Diagnoses Date/Time [...] as of this encounter Visit Diagnoses Diagnosis Migraine without aura and without status migrainosus, not intractable Migraine without aura, without mention o f intractable migraine without mention of status migrainosus documented in this encounter Administered Medications Inactive Administered Medications - up to 3 most recent administrations Medication Order MAR Action Action Date Dose Rate Site BUpivacaine (PF) (MARCAINE) 0.25 Given 07/25/2015 12:34 PM EDT 7 .5 mg % (2.5 mg/mL) injection 7.5 mg 7.5 mg, Subcutaneous, ONCE, 1 dose, On Thu07/25/15 at 1230, Routine lidocaine (XYLOCAINE) 10 mg/mL (1 %) Given 07/25/2015 12:34 PM E DT 30 mg injection 30 mg 30 mg, Subcutaneous, ONCE, 1 dose, On Thu07/25/15 at 1230, Routine documented in this encounter Care Teams Medical Typist Relationship Specialty Start Date End Date Peña Sherman MD PCP - General 04/06/15 01/31/16 YAN Edgar [address] [place] [address] documented as of this encounter
--- OUTSIDE RECORDS SUMMARY | 2022-07-12 00:56 | XMS_ITS | Encounter Summary ---
:1965 Author Organization [facility] [place] [address] Care Team Providers Name Role Phone Peña Sherman MD Primary Care Provider Encounter Details Date Type Department Care Team Description 08/01/2015 Orders Only Pain Management at Radha Monta[facility], [facility] [place] [address] Social History Tobacco Use Types Packs/Day [...] MD [facility] PLASTIC SURGERY [place] [phone] (Wo rk) 08/19/2022 Office Visit Podiatry Tom Titus DPM [place] [phone] (Wo rk) 09/08/2022 Office Visit Internal Medicine Janay aHy MD [facility] GENERAL INTERNAL MEDICINE [place] [phone] (Wo rk) 10/12/2059 Hospital Encounter Surgery Jim Hanley MD [facility] SPINE CENTER [place], [place] 0[address] (Wo rk) Scheduled Procedures Name [...] on filedocumented in this encounter Care Teams Knit Tubing Dyer Relationship Specialty Start Date End Date Peña Sherman MD PCP - General 04/06/15 01/31/16 YAN Edgar [address] [place] [address] documented as of this encounter
--- OUTSIDE RECORDS SUMMARY | 2022-07-12 00:56 | XMS_ITS | Encounter Summary ---
:1965 Author Organization [facility] [place] [address] Care Team Providers Name Role Phone Peña Sherman MD Primary Care Provider Encounter Details Date Type Department Care Team Description 07/27/2015 Surgery Main Operating Room Fabricio Grant MD [facility] CHOLECY STECTOMY ([facility] DR 10.47) [facility] [place] [address] [place] [address] [phone] Social History Tobacco Use Types Packs/Day Years [...] Sign Reading Time Taken Comments Blood Pressure 116/83 07/27/2015 10:34 AM EDT Pulse 96 07/27/2015 10:34 AM EDT Temperature 36.5 ??C (97.7 ??F) 07/27/2015 10:34 AM EDT Respiratory Rate 18 07/27/2015 10:34 AM EDT Oxygen Saturation 97% 07/27/2015 10:34 AM EDT Inhaled Oxygen Concentration - - [...] 101.3 F. The number for questions is [phone] before 5 PM weekdays and [phone] after 5 PM and weekends. Pain Medication: [...] will be mailed to you. Please call [phone] (clinic number for appointments) to confirm date and time of your appointment if you do not receive your apointment in 3 weeks. documented in this encounter Medications at Time of Discharge Medication Sig Dispensed Refills Start Date End Date fluticasone 2 sprays by Nasal 0 (VERAMYST) 27.5 route daily. mcg/actuation [place], Indications: Allergic SuspensionIndications Rhinitis : allergic rhinitis [...] pt and significant other. 1645 Tolerating ivone lisa and cracker. Reports nausea is better. 1700 [...] Ponce MD - 07/27/2015 2:48 PM EDT [facility] Operative Note Patient Name: Emmanuelle Bynum : [id number] MR#: [id number] Case Date: 07/27/2015 Surgeon: Surgeon(s) and Role: [...] PONCE MD 07/27/2015 Associated attestation - Fabricio Grant MD - 07/30/2015 6:32 AM EDT Attestation: Case Date: 07/27/2015 I was present and I participated during the entire procedure (does not need to include opening and closing). FABRICIO GRANT MD 07/30/2015 documented in this encounter Plan of Treatment Upcoming Encounters Date Type Specialty Care Team Description 08/06/2022 Office Visit Plastic Surgery Peña Woodward MD [facility] PLASTIC SURGERY [place] [phone] (Wo rk) 08/19/2022 Office Visit Podiatry Tom Titus DPM [place], [place] [address] (Wo rk) 09/08/2022 Office Visit Internal Medicine Janay Hay MD [facility] GENERAL INTERNAL MEDICINE [place], [place] 0[address] (Wo rk) 10/12/2059 Hospital Encounter Surgery Jim Hanley MD [facility] SPINE CENTER [place], [place] 0[address] (Wo rk) Scheduled Procedures Name [...] results section. LAPAROSCOPIC 07/27/2015 12:47 gallstones [facility] POCT GLUCOSE Routine 07/27/2015 [...] Glucose 167 65 - 199 CERNER mg/dL [facility] Comment: Supplemental ranges: <140 mg/dL before meals <180 mg/dL all other times of the day Specimen Anatomical Collection Method Collection Time Receive d Time (Source) Location / / Volume Laterality Blood specimen 07/27/2015 2:47 PM 015 2:47 (specimen) EDT PM EDT Fabricio Grant MD POINT OF CARE TEST ORDERABLE S Performing Organization Address City/State/[place] [address] CERNER [facility] Surgical Pathology Report (07/27/2015 2:08 PM EDT) Component Value Ref Test Analysis Performed At [facility] gist Range Method Time Signature Surgical The signing pathologist has (i) examined the relevant preparation(s) for the [facility] Pathology specimen(s) and (ii) rendered or confirmed the diagnosis(e s). [facility] Report Accession Number: [id number] ?Location: . ?Surgic al Pathology DIAGNOSIS Gallbladder, [...] diameter . Specimen Description: Intact. ??External surface: [place] with abundant adipose tissue. ??Lumen contents: Hemorrhagic [...] MD PATHOLOGY/CYTOLOGY ORDERABLE S Performing Organization Address City/[facility]/[place] [address] CERNER [facility] Specimen to Pathology [...] MD PATHOLOGY/CYTOLOGY ORDERABLE S Performing Organization Address City/[facility]/[place] [address] CERNER MILLENNIUM POCT Glucose (07/27/2015 11:16 AM EDT) P athologist Signature POC Glucose 104 65 - 199 CERNER mg/dL [facility] Comment: Supplemental ranges: <140 mg/dL before meals <180 mg/dL all other times of the day Specimen Anatomical Collection Method Collection Time Receive d Time (Source) Location / / Volume Laterality Blood specimen 07/27/2015 11:16 5 (specimen) AM EDT 11:16 AM EDT Fabricio Grant MD POINT OF CARE TEST ORDERABLE S Performing Organization Address City/[facility]/[place] [address] CERNER M[facility] SCAN DOC: [...] Action Date Dose Rate Site BUpivacaine (PF) Given 07/27/2015 1:44 PM 6 mLs 19- Surgical Site (MARCAINE) 0.5 % (5 EDT mg/mL) injection ONCE PRN, Starting on Thu07/27/15 at 1344, Until Thu07/27/15 at 2041, Intra-Operative (Intra-Procedure), Routine fentaNYL (PF) 50 mcg/mL 2mL syringe Given 07/27/2015 3:19 PM EDT 50 mcg 50 mcg, Intravenous, EVERY 5 MIN PRN, Pain, for 5-10 pain score, Starting on Thu07/27/15 at 1459, Until Thu07/27/15 at 204, for 5-10 pain score Hold for respiratory rate less than 10 per minute. Maximum dose: 250 mcg over one hour., PACU Recovery lidocaine (XYLOCAINE) 10 mg/mL Given 07/27/2015 1:49 PM EDT 6 mL s 19- Surgical Site (1 %) injection ONCE PRN, Starting on Thu07/27/15 at 1349, Until Thu07/27/15 at 204, Intra-Operative (Intra-Procedure), Routine oxyCODONE (ROXICODONE) immediate release tablet Given 07/27/2015 3:16 PM EDT 5 mg 5 mg 5 mg, Oral, EVERY 4 HOURS PRN, Starting on Thu07/27/15 at 1445, Until Thu07/27/15 at 2042, Pain, Routine prochlorperazine (COMPAZINE) injection 5 mg Given 07/27/2015 3:12 PM EDT 5 mg 5 mg, Intravenous, EVERY 30 MIN PRN, 2 doses, Starting on Thu07/27/15 at 1459, Until Thu07/27/15 at 2041, Nausea, May repeat 5 mg once in 30 minutes. If multiple antiemetics ordered, use ondansetron first and if ineffective use prochlorperazine second and if ineffective use promethazine, PACU Recovery, Routine promethazine (PHENERGAN) injection 12.5 mg Given 07/27/2015 3:22 PM EDT 12.5 mg 12.5 mg, Intravenous, EVERY 30 MIN PRN, 2 doses, Starting on Thu07/27/15 at 1508, Until Thu07/27/15 at 2041, Nausea, If multiple antiemetics ordered, use ondansetron [...] Starting Thu07/27/15 at 1344, Until Thu07/27/15 at 2042, Intra- Operative (Intra-Procedure), Routine fentaNYL (PF) 50 [...] oxyCODONE (ROXICODONE) immediate release tablet 5 mg 151 (Given - Provider: Jason Jeffries RN) 5 mg, Oral, EVERY 4 HOURS PRN, Starting Thu07/27/15 at 1445, Until Thu07/27/15 at 2041, Pain, Routine prochlorperazine (COMPAZINE) injection 5 mg (CANCELED) 151 (Given - Provider: Jason Jeffries RN) 5 mg, Intravenous, EVERY 30 MIN PRN, 2 d oses, Starting Thu07/27/15 at 1459, Until Thu07/27/15 at 2041, Nausea, May repeat 5 mg once in 30 minutes. If multiple antiemetics ordered, use ondansetron fi rst and if ineffective use prochlorperaz ine second and if ineffective use promethazine, PACU Recovery, Routine promethazine (PHENERGAN) injection 12.5 mg (CANCELED) 152 (Given - Provider: Jason Jeffries RN) 12.5 mg, Intravenous, EVERY 30 MIN PRN, 2 doses, Starting Thu07/27/15 at 1508, Until Thu07/27/15 at 2041, Nausea, If multiple antiemetics ordered, use ondansetron first and if ineffective use prochl orperazine second and if ineffective use promethazine, PACU Stephen very, Routine documented in this encounter Care Teams Radio Artist Relationship Specialty Start Date End Date Peña Sherman MD PCP - General 04/06/15 01/31/[address] [address] documented as of this encounter
--- OUTSIDE RECORDS SUMMARY | 2022-07-12 00:56 | XMS_ITS | Encounter Summary ---
:1965 Author Organization [facility] Address [address] [place] [address] Care Team Providers Name Role Phone Peña Sherman MD Primary Care Provider Reason for Visit Reason Onset Date Comments Medication Refill 07/26/2015 Encounter Details Date Type Department Care Team Description 07/26/2015 Refill Dermatology at [facility] Jacob Langston III, MD Psoriasis [address] [facility] [place] [address] [address]-DERMATOLGY [phone] [place], [place] [address] (Wo rk) Social History Tobacco [...] Woodward MD [facility] PLASTIC SURGERY [place] [address]005 ( rk) 08/19/2022 Office Visit Podiatry Tom Titus DPM [place] [address] ([facility]) 09/08/2022 Office Visit Internal Medicine Janay Hay MD [facility] GENERAL INTERNAL MEDICINE [place], [place] [address] (Wo rk) 10/12/2059 Hospital Encounter Surgery Jim Hanley MD [facility] SPINE CENTER [place], [place] 0375 (Wo rk) Scheduled Procedures Name [...] psoriasis documented in this encounter Care Teams Network Technical Analyst Relationship Specialty Start Date End Date Peña Sherman MD PCP - General 04/06/15 01/31/16 YAN Edgar [address] [place] [address] documented as of this encounter
--- OUTSIDE RECORDS SUMMARY | 2022-07-12 00:56 | XMS_ITS | Encounter Summary ---
:1965 Author Organization [facility] [address] [place] [id number] Care Team Providers Name Role Phone Peña Sherman MD Primary Care Provider Encounter Details Date Type Department Care Team Description 06/05/2015 Hospital Encounter Radiology Library at [place], Masha López MD [facility] [place] [address] [place] [address] [phone] (Wo rk) Social History Tobacco Use Types [...] Nasal 0 (VERAMYST) 27.5 route daily. mcg/actuation [place], Indications: Allergic SuspensionIndications Rhinitis : allergic rhinitis fluconazole Take 200 mg by mouth 0 05/30/2015 (DIFLUCAN) 200 mg daily. Tablet metroN[address]AZO[address] Place vaginally as 0 11/2016 (METROGEL) 0.75 % Gel needed. oxyCODONE-acetaminoph Take 1 tablet by mouth 75 tablet 0 06/29/2015 en (PERCOCET) 7.5-325 every 4 hours as mg TabletIndications: needed for Pain (not Cervical radicular to exceed 3 tablets pain, Encounter for per day, to start long-term (current) 06/04). To start use of other 06/04/15. medications OXYCONTIN 30 mg Take 1 tablet every 12 hours. 50 tablet 0 0 06/04/2015 06/29/2015 Tablet Sustained To start 06/04. Release 12 hrIndications: Cervical radicular pain, Encounter for long-term (current) use of other medications Betamethasone-Calcipo Apply 3 times a week 60 g 2 11/201407/10/2015 triene (TACLONEX to scalp for psoriasis SCALP) 0.005-0.064 % SuspensionIndications : Psoriasis Clobetasol-Emollient Apply twice daily to 100 g 1 04/0307/10/2015 0.05 % Foam scalp psoriasis on weekends as needed Lidocaine 5 % Apply to neck three [...] with status migrainosus, not intractable, Chronic migraine clobetasol (TEMOVATE) Apply topically 2 50 mL 1 014 07/26/2015 0.05 % times a day for worse SolutionIndications: areas of scalp Psoriasis psoriasis for [address] 1 drop into both 60 [...] MD [facility] PLASTIC SURGERY [place], [place] 0[address] (Wo rk) 08/19/2022 Office Visit Podiatry Tom Titus DPM [place], [place] 0[address] (Wo rk) 09/08/2022 Office Visit Internal Medicine Janay Hay MD [facility] GENERAL INTERNAL MEDICINE [place], [place] 0[address] (Wo rk) 10/12/2059 Hospital Encounter Surgery Jim Hanley MD [facility] SPINE CENTER [place], [place] 0375 (Wo rk) Scheduled Procedures Name [...] Associated Diagnosis Comme nts FILM LIBRARY Routine 06/05/2015 12:00 AM Pain Results for this STORAGE ONLY EDT procedure are i n NUCLEAR MEDICINE the results section. documented in this encounter Results Film Library- Storage only nuclear medicine (06/05/2015 12:00 AM EDT) Specimen (Source) Anatomical Location Collection Method / Collectio n Time Received Time / Laterality Volume Narrative [facility] - 07/16/2015 10:55 AM EDT See PACS for result report. Procedure Note Donna Macdonald - 07/16/2015 See PACS for result report. Fabricio Grant MD IMG FILM LIBRARY ORDERABLES Performing Organization Address City/State/ZIP Code Phon e Number [place], [place] documented in this encounter Visit Diagnoses Diagnosis Pain Generalized pain documented in this encounter Care Teams Grinder Operator Surface Tool Relationship Specialty Start Date End Date Peña Sherman MD PCP - General 04/06/15 01/31/16 YAN Edgar [address] [place] [address] documented as of this encounter
--- OUTSIDE RECORDS SUMMARY | 2022-07-12 00:56 | XMS_ITS | Encounter Summary ---
:1965 Author Organization [facility] [place] [address] Care Team Providers Name Role Phone Peña Sherman MD Primary Care Provider Reason for Visit Reason Onset Date Comments Medication Refill 10/16/2015 Med Refill Encounter Details Date Type Department Care Team Description 10/16/2015 Telephone Neurology at [facility] Geeta Mcqueen Medication Refill ([facility] PUBLIC RELATIONS Refill) [place] [address] NEUROLOGY DEPT. [place], [place] [address] (Wo rk) Social History Tobacco [...] Telephone Encounter - Gaby Villatoro RN - 10/16/2015 1:34 PM EST I spoke with the pharmacist, she was looking for clarification on the dosing, I explained that patient is taking this medication as the prescription is written. She states that if this is the case, thequantity of the 600 mg capsule is much to low and will not cover a 30 day supply. I will prepare a new prescription for provider approval in a separate encounter. Telephone Encounter - Aracely Skinner - 10/16/2015 12:31 PM EST Thu called in today regarding the patient's prescription for Gabapentin. Thu states the patient is waiting for this to have her prescription filled. Thu needs a call back to clarify. documented in this encounter Plan of Treatment Upcoming Encounters Date Type Specialty Care Team Description 08/06/2022 Office Visit Plastic Surgery Peña Woodward MD [facility] PLASTIC SURGERY [place] [address] (Wo rk) 08/19/2022 Office Visit Podiatry Tom Titus DPM [place], [place] 0[address] ([facility]) 09/08/2022 Office Visit Internal Medicine Janay Hay MD [facility] GENERAL INTERNAL MEDICINE [place], [place] [address] ([facility]) 10/12/2059 Hospital Encounter Surgery Jim Hanley MD [facility] SPINE CENTER [place], [place] 037 ([facility]) Scheduled Procedures Name Priority Associated Diagnoses Date/Time [...] on filedocumented in this encounter Care Teams Juke Box Servicer Relationship Specialty Start Date End Date Peña Sherman MD PCP - General 04/06/15 01/31/16 YAN Edgar [address] [place] [address] documented as of this encounter
--- OUTSIDE RECORDS SUMMARY | 2022-07-12 00:56 | XMS_ITS | Encounter Summary ---
:1965 Author Organization [facility] Address [facility] [place] [address] Care Team Providers Name Role Phone Peña Sherman MD Primary Care Provider Encounter Details Date Type Department Care Team Description 07/16/2015 Office Visit General Surgery at Fabricio Grant MD Gallstones; [facility] Stage I hemorrhoids [facility] [address] [place] [address] [place] [address] [phone] (Wo rk) Social History Tobacco Use Types [...] documented as of this encounter Progress Notes Fabricio Grant MD - 07/16/2015 3:49 PM EDT Emmanuelle Bynum is a 49 y.o. female who presents to my clinic today with a chief complaint of gallstones as well as hemorrhoids. She reports that she was first diagnosed with gallstones several months ago and that over the last five weeks she has noted pain and nausea with eating, particularly with fatty or oily food. This was first noticed five weeks ago after eating pizza for dinner - she does believe that these episodes havebeen less frequent over the past few weeks, though not completely resolved. She denies any fevers/chills, no jaundice, no acholic stools. She is desirous of pursuing surgery for this in the near future. She also reports having chronic constipation and takes both senna and miralax almost daily even as she is tapering off of percocet for pain from herniated discs. She reports that in the setting of thischronic constipation she has both some swelling and pain as well as some scant bleeding when wiping after moving her bowels and is strongly desirous of further intervention for these symptoms which have been attributed to hemorrhoidal disease - she has recently undergone both upper and lower endoscopies. Past Medical History Diagnosis Date ??? Headache(784.0) [...] release Left ??? section x2 ??? Hysterectomy Medications 07/16/15 1240 Medication Sig Taking? oxyCODONE (OXYCONTIN) 10 mg tablet,oral only,ext.rel.12 hr 2 in a.m., 3 in pm X 3 days; 2 twice per day X 3 days, 1 in a.m. 2 in pm X 3 days, 1 daily, X 3 days, then stop oxyCODONE-acetaminophen (PERCOCET) 5-325 mg Tablet 1 every 4 hrs as needed for pain; NTE 3 per day X4 days, then 2 per day X 4 days, then 1 per day X 4 days, then stop betamethasone-calcipotriene (TACLONEX SCALP) 0.005-0.064 % Suspension Apply 3 times a week to scalp for psoriasis Clobetasol-Emollient 0.05 % Foam Apply twice daily to scalp psoriasis on weekends as needed dispense3 bottles please desonide (DESOWEN) 0.05 % Cream Apply twice daily with ketoconazole cream to corners of mouth as needed ketoconazole (NIZORAL) 2 % Cream Apply twice daily with Desonide cream to corners of mouth as needed. lidocaine (XYLOCAINE) 5 % Ointment APPLY TOPICALLY TO THE AFFECTED AREA EVERY 8 HOURS NEEDED FOR CERVICALGIA fluconazole (DIFLUCAN) 200 mg Tablet Take 200 mg by mouth daily. metroNIDAZOLE (METROGEL) 0.75 % Gel Place vaginally 2 times daily. sucralfate (CARAFATE) 1 gram Tablet Take 1 g by mouth 3 times daily. Lidocaine 5 % Cream Apply to neck three times daily as needed. cetirizine (ZYRTEC) 10 mg Tablet Take 1 tablet by mouth daily as needed for Allergies. As needed foritching. montelukast (SINGULAIR) 10 mg Tablet Take 10 mg by mouth nightly. Indications: Allergic Rhinitis fluticasone (VERAMYST) 27.5 mcg/actuation [place], Suspension 2 sprays by Nasal route daily. Indications: Allergic Rhinitis SPIRIVA WITH HANDIHALER 18 mcg Capsule, w/Inhalation Device Inhale 18 mcg into the lungs daily. naproxen sodium (ANAPROX) 550 mg Tablet Take 1 tablet by mouth 2 times daily as needed. methocarbamol (ROBAXIN-750) 750 mg Tablet Take 2 tablets by mouth 3 times daily as needed. Meclizine 50 mg Tablet Take 1 tablet by mouth daily. naratriptan (AMERGE) 2.5 mg Tablet Take 1 tablet by mouth twice daily as a preventive for migraines. pregabalin (LYRICA) 50 mg Capsule Take 1 capsule by mouth 3 times daily. gabapentin (NEURONTIN) 300 mg Capsule Take 1 capsule in the morning, 1 capsule afternoon and 2 capsules at night. gabapentin (NEURONTIN) 600 mg Tablet Take 1 tablet by mouth 3 times daily. clobetasol (TEMOVATE) 0.05 % Solution Apply topically 2 times a day for worse areas of scalp psoriasis for 2 weeks only cycloSPORINE (RESTASIS) 0.05 % Dropperette Place 1 drop into both eyes every 12 hours. ondansetron (ZOFRAN) 4 mg tablet Take 4 mg by mouth every 8 hours as needed. promethazine (PHENERGAN) 25 mg tablet Take 25 mg by mouth every 6 hours as needed. ALPRAZolam (XANAX) 1 mg tablet Take 1 mg by mouth 4 times daily. FLUoxetine (PROZAC) 40 mg capsule Take 80 mg by mouth daily. Eflornithine 13.9 % Crea Apply topically 2 times daily. For excessive facial hair INSULIN DETEMIR (LEVEMIR FLEXPEN SUBQ) Inject 70 Units subcutaneously 2 times daily. insulin aspart (NOVOLOG) 100 unit/mL pen injection Inject 2-8 Units subcutaneously 4 times daily. Sliding scale lisinopril (PRINIVIL;ZESTRIL) 10 mg tablet Take 10 mg by mouth daily. aripiprazole (ABILIFY) 30 mg tablet Take 30 mg by mouth daily. esomeprazole (NEXIUM) 40 mg capsule Take 40 mg by mouth 2 times daily. Allergies Allergen Reactions ??? Methadone Nausea And Vomiting History Substance Use Topics ??? Smoking status: Current Every Day Smoker -- 0.50 packs/day for 13 years Types: Cigarettes ??? Smokeless tobacco: Never Used Comment: not tryiing to quit ??? Alcohol Use: No Is currently disabled. General ROS: As per HPI, otherwise A comprehensive review of systems was negative. On physical examination today, There were no vitals taken for this visit. There is no weight on fileto calculate BMI. General appearance: alert, appears stated age and cooperative Head: Normocephalic, without obvious abnormality, atraumatic Neck: no adenopathy, no carotid bruit, supple, symmetrical, trachea midline and thyroid not enlarged, symmetric, no tenderness/mass/nodules Lungs: clear to auscultation bilaterally Chest wall: no tenderness Heart: regular rate and rhythm, S1, S2 normal, no murmur, click, rub or gallop Abdomen: soft, non-tender; bowel sounds normal; no masses, no organomegaly Extremities: extremities normal, atraumatic, no cyanosis or edema Pulses: 2+ and symmetric Skin: Skin color, texture, turgor normal. No rashes or lesions Lymph nodes: Cervical, supraclavicular, and axillary nodes normal. Rectal: Circumferential external hemorrhoidal changes, pain with digital rectal examination though normal tone. Anoscopy was performed with smallest lighted scope and demonstrated left lateral and right anterior internal hemorrhoidal inflammation without bleeding. Ancillary Data: LFT's from 02/24/2015 negative for any abnormal elevation. Office notes from PCP reference 09/2014 CT scan demonstrating gallstones present at that time. Assessment and Plan: Emmanuelle Bynum is a 49 y.o. female. with intermittent postprandial abdominal pain in her epigastrium as well as some nausea with recent endoscopy and colonoscopy reportedly normal and 09/2014 CT scan demonstrating gallstones. We discussed the risks and benefits of a laparoscopic cholecystectomy including risks of bleeding, infection, inadvertent injury to the common bile duct, and need to convert to open surgery. She appears to understand these risks. We will arrange for surgery here at [facility] next available OR date. For her hemorrhoidal concerns, we discussed that ideal treatment at present would be the initiation of fiber supplementation (e.g., metamucil) 1-3 times per day along with PRN topical steroids. Given the pain and scant bleeding, the overall impression is of symptomatic internal/external hemorrhoidal disesase (likely Grade 1) which would not be ideally suited to office banding. We will avoid surgical intervention for this condition at the present time. Ms. Bynum indicates that she understands the currently non-operative plan for her hemorrhoids. documented in this encounter Plan of Treatment Upcoming Encounters Date Type Specialty Care Team Description 08/06/2022 Office Visit Plastic Surgery Peña Woodward MD [facility] PLASTIC SURGERY [place], [place] [address] (Wo rk) 08/19/2022 Office Visit Podiatry Tom Titus DPM [place], [place] [address] (Wo rk) 09/08/2022 Office Visit Internal Medicine Janay aHy MD [facility] GENERAL INTERNAL MEDICINE [place], [place] [address] (Wo rk) 10/12/2059 Hospital Encounter Surgery Jim Hanley MD [facility] SPINE CENTER [place], [place] [address] (Wo rk) Scheduled Procedures Name [...] as of this encounter Visit Diagnoses Diagnosis Gallstones Calculus of gallbladder without mention of cholecystitis or obstruction Stage I hemorrhoids Unspecified hemorrhoids without mention of complication documented in this encounter Care Teams Bleacher Sulfite Pulp Relationship Specialty Start Date End Date Peña Sherman MD PCP - General 04/06/15 01/31/16 YAN Edgar [address] [place] [id number] documented as of this encounter
--- OUTSIDE RECORDS SUMMARY | 2022-07-12 00:56 | XMS_ITS | Encounter Summary ---
:1965 Author Organization [facility] [place] [address] Care Team Providers Name Role Phone Peña Sherman MD Primary Care Provider Encounter Details Date Type Department Care Team Description 06/15/2015 Telephone [facility] [place] [address] Social History Tobacco Use Types Packs/Day [...] encounter Miscellaneous Notes Telephone Encounter - Jody Sawyer, RN - 06/15/2015 3:21 PM EDT Incoming call from patient she states I am calling to see if Dr. Mcknight will increase the amount of tubes of my compound cream we discussed this at my last visit and she had told me to see my foot doctor which I have done and he was trying to order the same cream from [facility] that I already have so the pharmacist recommended that maybe Dr. Mcknight would increase the amount of tubes of the compound cream Nurse advises patient she will forward this notee to Dr. Mcknight for review and recommendation and as soon as we here back someone will notify her. Patient verbalizes understanding and agrees with the plan. Forwarded message to documented in this encounter Plan of Treatment Upcoming Encounters Date Type Specialty Care Team Description 08/06/2022 Office Visit Plastic Surgery Peña Woodward MD [facility] PLASTIC SURGERY [place], [place] [address] (Wo rk) 08/19/2022 Office Visit Podiatry Tom Titus DPM [place], [place] [address] (Wo rk) 09/08/2022 Office Visit Internal Medicine Janay Hay MD [facility] GENERAL INTERNAL MEDICINE [place], [place] [address] (Wo rk) 10/12/2059 Hospital Encounter Surgery Jim Hanley MD [facility] SPINE CENTER [place], [place] [address] (Wo rk) Scheduled Procedures Name [...] on filedocumented in this encounter Care Teams Saddle And Harness Maker Relationship Specialty Start Date End Date Peña Sherman MD PCP - General 04/06/15 01/31/16 [facility] Tala [address] [place] [id number] documented as of this encounter
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
--- OUTSIDE RECORDS SUMMARY | 2022-07-12 00:56 | XMS_ITS | Encounter Summary ---
:1965 Author Organization [facility] [place] [address] Care Team Providers Name Role Phone Peña Sherman MD Primary Care Provider Reason for Visit Reason Comments Medication Refill Encounter Details Date Type Department Care Team Description 10/11/2015 Refill Neurology at [facility] Arnulfo-David, Yena, Headache(784.0) [facility] Kevin [place]añ[place] [address] [facility] [phone] NEUROLOGY DEPT. [place], [place] [address] Social History Tobacco Use Types [...] Telephone Encounter - Greta Mcintosh RN - 10/11/2015 4:43 PM EST Called patient because these medications have not been filled by our office since March 2015. She states the pharmacy sent the prescriptions to her PCP in error. She states she is still taking 900 in the morning, 900 at noon, and 1200 at night. Patient is out of medication. I left a voicemail for PCP to call me back to ensure she is not getting any headache medications from her PCP going forward. documented in this encounter Plan of Treatment Upcoming Encounters Date Type Specialty Care Team Description 08/06/2022 Office Visit Plastic Surgery Peña Woodward MD [facility] PLASTIC SURGERY [place], [place] [address] (Wo rk) 08/19/2022 Office Visit Podiatry Tom Titus DPM [place], [place] [address] (Wo rk) 09/08/2022 Office Visit Internal Medicine Janay Hay MD [facility] GENERAL INTERNAL MEDICINE [place], [place] [address] (Wo rk) 10/12/2059 Hospital Encounter Surgery Jim Hanley MD [facility] SPINE CENTER [place], [place] [address] (Wo rk) Scheduled Procedures Name [...] Headache documented in this encounter Care Teams Want Ad Receiver Relationship Specialty Start Date End Date Peña Sherman MD PCP - General 04/06/15 01/31/16 [facility] Tala [address] [place] [id number] documented as of this encounter
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
--- OUTSIDE RECORDS SUMMARY | 2022-07-12 00:57 | XMS_ITS | Encounter Summary ---
:1965 Author Organization [facility] [place] [address] Care Team Providers Name Role Phone Ernestina Nowak Primary Care Provider Encounter Details Date Type Department Care Team Description 02/27/2015 Office Visit Neurology at [facility] Chacho, Chronic migraine; [facility] Charlie, APR [place] [address] [address] [phone] NEUROLOGY DEPT. [place], [place] [address] Social History Tobacco Use Types [...] documented as of this encounter Progress Notes Charlie Flor, SHELLY - 02/27/2015 1:10 PM EDT Procedural visit for botox Subjective: Emmanuelle is here for Botox. She is doing pretty well with her headaches. She continues to have some neck, trunk and hip pain since her cervical steroid injection in pain clinic 12/05/2014. She did have a headache after her last ONB along with site pain, but has improved. She has improvementin her migraine related vertigo spells since starting amerge daily. Gabapentin continues to help as well. She denies any changes in her headaches. Denies headache in office today. She has a flare up of her psoriasis LYNETTE occipital area and was just started on some new cream. Review of systems:chronic head pain as above, neck pain, memory issues, disequilibrium, dizziness (improved on amerge). All other systems were negative. Objective Plan: Will make no changes to her therapy as patient has improvement with daily Amerge to treat migraine related vertigo, Botox every 10 weeks, nerve blocks/TPIs every 4-6 weeks, abortive medications (Naproxen, methocarbamol) and Gabapentin 900 mg, 900 mg, and 1200 mg. Decrease Gabapentin to 900 TID, since she has been started on Lyrica by her PCP. Keep decreasing as tolerated in the future she will call with a progress report. Will schedule Botox with Dr. Devries since I will be leaving in March. Educated do not mix sedating medications together since she is on lyrica, robaxin, ativan and other narcotics. She stated understanding. All of her pain medications are now prescribed by her Pain Med practitioner so did not refill the Vicodin. Potential AE's were discussed at length. MIDAS 29, DAYs Pain 05/21 Consent was obtained and a time-out was [...] units divided between 2 sites in the lumber straightened muscles, 5 units into 1 site in the procerus muscle, 40 units divided between 8 sites in the temporalis muscles, 30 units divided between 6 sites in the suboccipital region, 20units divided between 4 sites in the cervical paraspinal musculature, and 30 units divided between 6sites in the trapezii. Total units used= 155 used and 45 units discarded for a total of 200 units . Total injection sites=31. The patient tolerated the procedure without any immediate complications. documented in this encounter Plan of Treatment Upcoming Encounters Date Type Specialty Care Team Description 08/06/2022 Office Visit Plastic Surgery Peña Woodward MD [facility] PLASTIC SURGERY [place] [phone] ( josé luis) 08/19/2022 Office Visit Podiatry Tom Titus DPM [place], [place] [address] (Flores ordonez) 09/08/2022 Office Visit Internal Medicine Janay Hay MD [facility] GENERAL INTERNAL MEDICINE [place], [place] [address] (Flores ordonez) 10/12/2059 Hospital Encounter Surgery Jim Hanley MD [facility] SPINE [place] [address] (Wo rk) Scheduled Procedures Name Priority Associated [...] this encounter Visit Diagnoses Diagnosis Chronic migraine Chronic migraine without aura, without m ention of intractable migraine without mention of status migrainosus Cervicalgia documented in this encounter Administered Medications Inactive Administered Medications - up to 3 most recent administrations Medication Order MAR Action Action Date Dose Rate Site botulinum toxin type A (BOTOX) Given 02/27/2015 1:44 PM EDT 200 Units injection 200 Units 200 Units, Intramuscular, ONCE, 1 dose, On Thu02/27/15 at 1330, Routine documented in this encounter Care Teams Cleaner Relationship Specialty Start Date End Date Ernestina Nowak PA PCP - General 09/03/10 04/05/15 [address] [place] [address] documented as of this encounter
--- OUTSIDE RECORDS SUMMARY | 2022-07-12 00:57 | XMS_ITS | Encounter Summary ---
:1965 Author Organization [facility] [place] [address] Care Team Providers Name Role Phone Ernestina Nowak Primary Care Provider Encounter Details Date Type Department Care Team Description 12/27/2014 Telephone Pain Management at Carmen [place], [place] [address] Social History Tobacco Use Types Packs/Day [...] this encounter Miscellaneous Notes Telephone Encounter - Carmen Rivera RN - 12/27/2014 3:14 PM EDT Patient called requesting permission to use a Lidoderm patch prescribed to her by another provider, patient was concerned it may void her narcotic contract. I assured her it would be ok. documented in this encounter Plan of Treatment Upcoming Encounters Date Type Specialty Care Team Description 08/06/2022 Office Visit Plastic Surgery Peña Woodward MD [facility] PLASTIC SURGERY [place] [address] ( josé luis) 08/19/2022 Office Visit Podiatry Tom Titus DPM [place] [phone] (Flores ordonez) 09/08/2022 Office Visit Internal Medicine Janay Hay MD [facility] GENERAL INTERNAL MEDICINE [place], [place] [address] ( josé luis) 10/12/2059 Hospital Encounter Surgery Jim Hanley MD [facility] SPINE CENTER [place], [place] [address] (Flores ordonez) Scheduled Procedures Name [...] on filedocumented in this encounter Care Teams Mica Machine Operator Relationship Specialty Start Date End Date Ernestina Nowak PA PCP - General 09/03/10 04/05/15 [address] [place] [address] documented as of this encounter
--- OUTSIDE RECORDS SUMMARY | 2022-07-12 00:57 | XMS_ITS | Encounter Summary ---
:1965 Author Organization [facility] Address [facility] [address] [place] [address] Care Team Providers Name Role Phone Ernestina Nowak Primary Care Provider Encounter Details Date Type Department Care Team Description 03/13/2015 Notes Only Pain Management at Mehreen Christiansen MD [facility] [place] [address] PAIN CLINIC [phone] [place] [phone] (Wo rk) Social History Tobacco Use Types [...] documented as of this encounter Progress Notes Mehreen Barnett MD - 03/13/2015 7:40 AM EDT UDS on 03/06 is consistent with the oxycodone she is being prescribed. However, it is also positive for THC which will be discussed at next clinic visit. documented in this encounter Plan of Treatment Upcoming Encounters Date Type Specialty Care Team Description 08/06/2022 Office Visit Plastic Surgery Peña Woodward MD [facility] PLASTIC SURGERY [place], [place] [address] (Wo rk) 08/19/2022 Office Visit Podiatry Tom Titus DPM [place], [place] [address] (Wo rk) 09/08/2022 Office Visit Internal Medicine Janay Hay MD [facility] GENERAL INTERNAL MEDICINE [place], [place] [address] (Wo rk) 10/12/2059 Hospital Encounter Surgery Jim Hanley MD [facility] SPINE CENTER [place], [place] [address] (Wo rk) Scheduled Procedures Name [...] on filedocumented in this encounter Care Teams High Heel Builder Relationship Specialty Start Date End Date Ernestina Nowak PA PCP - General 09/03/10 04/05/15 [address] [place] [address] documented as of this encounter
--- OUTSIDE RECORDS SUMMARY | 2022-07-12 00:57 | XMS_ITS | Encounter Summary ---
:1965 Author Organization [facility] Address [facility] [place] [address] Care Team Providers Name Role Phone Peña Sherman MD Primary Care Provider Encounter Details Date Type Department Care Team Description 05/14/2015 Notes Only Pain Management at [facility] Jason Mcknight MD [facility] [place] [address] PAIN CLINIC [phone] [place], [place] [address] (Wo rk) Social History Tobacco [...] encounter Progress Notes Jason Mcknight MD - 05/14/2015 5:55 PM EDT The patient had a UDS that was consistent with medication prescribed. THC was present, decreased from previous UDS in March. As long as this trend continues downward reflecting a cessation of marijuana use, the patient can continue to receive opioids. JASON MCKNIGHT MD documented in this encounter Plan of Treatment Upcoming Encounters Date Type Specialty Care Team Description 08/06/2022 Office Visit Plastic Surgery Peña Woodward MD [facility] PLASTIC SURGERY [place], [place] [address] (Flores ordonez) 08/19/2022 Office Visit Podiatry Tom Titus DPM [facility] DRIVE [place], [place] [address] (Flores ordonez) 09/08/2022 Office Visit Internal Medicine Janay Hay MD [facility] GENERAL INTERNAL MEDICINE [place], [place] [address] (Flores ordonez) 10/12/2059 Hospital Encounter Surgery Jim Hanley MD [facility] SPINE CENTER [place], [place] [address] (Wo rk) Scheduled Procedures Name [...] on filedocumented in this encounter Care Teams Intercell Connector Placer Relationship Specialty Start Date End Date Peña Sherman MD PCP - General 04/06/15 01/31/16 [place] [address] documented as of this encounter
--- OUTSIDE RECORDS SUMMARY | 2022-07-12 00:57 | XMS_ITS | Encounter Summary ---
:1965 Author Organization [facility] [place] [address] Care Team Providers Name Role Phone Peña Sherman MD Primary Care Provider Reason for Visit Reason Comments Cervicalgia Back Pain Bilateral Arm Pain Encounter Details Date Type Department Care Team Description 04/03/2015 Follow-Up Pain Management at Loc Mcknight MD [address] [place] [id number] Cervical disc displacement; [place] Aracelis Mcknight MD [facility] [place] [place] [address] Cervical radiculitis; [facility] Encounter for long-term (current) use of other medications; Elizabeth C[place] [address] Social History Tobacco Use Types Packs/Day [...] Sign Reading Time Taken Comments Blood Pressure 122/85 04/03/2015 12:50 PM EDT Pulse 92 04/03/2015 12:50 PM EDT Temperature - - Respiratory Rate - - Oxygen Saturation 97% 04/03/2015 12:50 PM EDT Inhaled Oxygen Concentration - - Weight 107.5 kg (237 lb) 04/03/2015 12:50 PM EDT Height 165.1 cm (5' 5) 04/03/2015 12:50 PM EDT Body Mass Index 39.44 04/03/2015 12:50 PM EDT documented in this encounter Progress Notes Aracelis Mcknight MD - 04/03/2015 12:51 PM EDT Emmanuelle Bynum is a 49 [...] at least 2-3months. ANGELINA 12/05/14. Patient notes ongoing pain. Dr. Medley performed the ANGELINA and has discussed this with the patient. She was informed that it may take several weeks for improvement in symptoms. She was experiencing chest tightness, neck pain and has radiation to the low back. She denies feversbut has had night sweats. She notes that she did not have this prior to the ANGELINA. The patient has been evaluated by Dr. Phillips. The plan is to proceed with surgery, but the patient needs to stop smoking. Her quit date is . This will also help her with plans for gastric bypass. She did not quit on . She is trying to cut back, she is down to 3 cigarettes per day, but has not progressed from this. She is moving in May and the [facility] is smoke free. Opioid History: The patient has been taking opioids for about 3 1/2 years. Prior to that she was on vicodin for migraines. At the time of initial visit she was on oxycontin 30 BID, percocet 7.5 TID. This decreased herpain significantly; about 90%. She had been receiving opioids at [facility] with Ms. Sanchez. The patient denies issues with compliance. Review of notes from her PCP indicates that an attempt was made to refer her to Pain Care and they would not accept her as a patient. She had been receiving opioids from [facility] for about 8 months. Prior to [...] daily basis. The patient is currently on oxycodone 30 mg every 12, and Percocet 7.5/325 mg Q8, . Prescribed 03/06.Pill count is appropriate. The medication is helpful, despite some increased pain after the ANGELINA. Her neurologist prescribed lidoderm patch and she was having some relief with this as well. Her insurance is no longer covering this. The patient was prescribed ointment by Charlie Hernandez. The patient is awaiting approval from the insurance company. Functional goals: 1) To be able to complete activities of daily living - Achieving 2) To be able to be active with friends and family - Achieving 3) To be able to take care of her home - Achieving 4) To be able to complete home exercises - Achieving 5) To be able to work - NOT Achieving The UDS was checked 11/07/14(correction: 03/06/15) and Urine toxicology results are consistent with medication prescribed THC levels was present. The patient notes that she went to [place]. She misunderstood a previous discussion and thought that because it was legal in [place], she would be able to use it. We reviewed today that is not the case. She is no longer using it. The patient has decreased xanax to 4 tablets per day. She is working on decreasing it further. PAST MEDICAL HISTORY: Past Medical History Diagnosis Date ??? Headache(784.0) ??? GERD (gastroesophageal reflux disease) ??? Asthma ??? Depression ??? SEB (obstructive sleep apnea) ??? Diabetes mellitus ??? Arthritis ??? Leukocytosis 06/05/2011 ??? Cardiac disease ??? Allergy ??? Neuromuscular disorder ??? Skin disease ??? Thyroid disease ??? Trauma ??? Rheumatic fever ??? Diverticulosis PAST SURGICAL HISTORY: Past Surgical History Procedure Laterality Date ??? Orthopedic surgery left shoulder ??? Orthopedic surgery left elbow ??? Carpal tunnel release Left ??? section x2 ??? Hysterectomy ALLERGIES: Methadone MEDICATIONS: Current Outpatient Prescriptions Medication Sig Dispense Refill ??? Clobetasol-Emollient 0.05 % Foam Apply twice daily to scalp psoriasis on weekends as needed 100 g 1 ??? sucralfate (CARAFATE) 1 gram Tablet Take 1 g by mouth 3 times daily. ??? Lidocaine 5 % Cream Apply to neck three times daily as needed. 45 g 3 ??? oxyCODONE-acetaminophen (PERCOCET) 7.5-325 mg Tablet Take 1 tablet by mouth every 4 hours as needed for Pain (not to exceed 3 tablets per day). 90 tablet 0 ??? OXYCONTIN 30 mg Tablet Sustained Release 12 hr Take 1 tablet every 12 hours. 60 tablet 0 ??? cetirizine (ZYRTEC) 10 mg Tablet Take 1 tablet by mouth daily as needed for Allergies. As neededfor itching. 60 tablet 3 ??? montelukast (SINGULAIR) 10 mg Tablet Take 10 mg by mouth nightly. Indications: Allergic Rhinitis ??? fluticasone (VERAMYST) 27.5 mcg/actuation [place], Suspension 2 sprays by Nasal route daily. [...] daily as needed. 50 tablet 6 ??? Betamethasone-Calcipotriene (TACLONEX SCALP) 0.005-0.064 % Suspension apply topically to scalp 2-3 times per week at night for maintenance of psoriasis (Patient taking differently: Apply 3 times a week) 60 g 2 ??? Meclizine 50 mg Tablet Take 1 [...] for this visit. ROS: The patient denies nausea, somnolence on current opioids. Occasional constipation and pruritis. Recently diagnosed with gallstones. Has been having diarrhea and GI distress. Put on sucralfate. PHYSICAL EXAM: BP 122/85 Pulse 92 Ht 165.1 cm (5' 5) Wt 107.502 kg (237 lb) BMI 39.44 kg/m2 SpO2 97% Physical Exam Constitutional: She is oriented to [...] did use marijuana when she was in [place], which was based on a misunderstanding. She thought that since it was legal in [place], she could use it. We discussed that while I am prescribing opioids, she is not to use marijuana and she understands that now. If at some point, it is available as medical marijuana in [place], that may be a consideration. She is compliant with medication usage. Pill count is correct. Urine toxicology is consistent with medication prescribed. [place] and [place] prescription monitoring program were queried and reviewed and are without concerns. The patient underwent ANGELINA in November and [...] opioid use and potential interactions. She has not been able to decrease to lessthan 4 per day. She is going to try to continue to work on smoking cessation. This is holding up any possibility of cervical spine surgery. PLAN: 1. Continue oxycodone 7.5/ 325 Q8 prn, #90; oxycontin 30 mg BID # 60. RX to start 04/05. 2. Continue to decrease xanax under the guidance of PCP. 3. Continue effort at smoking cessation. 4. Follow up with Dr. Mcknight in 4 weeks. PLAN: Aracelis Mcknight MD Orders Placed This Encounter Medications ? oxyCODONE-acetaminophen (PERCOCET) 7.5-325 mg Tablet Sig: Take 1 tablet by mouth every 4 hours as needed for Pain (not to exceed 3 tablets per day). Dispense: 90 tablet Refill: 0 ??? OXYCONTIN 30 mg Tablet Sustained Release 12 hr Sig: Take 1 tablet every 12 hours. Dispense: 60 tablet Refill: 0 documented in this encounter Plan of Treatment Upcoming Encounters Date Type Specialty Care Team Description 08/06/2022 Office Visit Plastic Surgery Peña Woodward MD [facility] PLASTIC SURGERY [place], [place] [address] (Wo rk) 08/19/2022 Office Visit Podiatry Tom Titus DPM [place], [place] [address] (Wo rk) 09/08/2022 Office Visit Internal Medicine Janay Hay MD [facility] GENERAL INTERNAL MEDICINE [place], [place] [address] (Wo rk) 10/12/2059 Hospital Encounter Surgery Jim Hanley MD [facility] SPINE CENTER [place], [place] [address] (Wo rk) Scheduled Procedures Name [...] Diagnosis Comme nts DRUG SCREEN WITH Routine 04/03/2015 12:00 Encounter for Result s for this CONFIRMATION, URINE PM EDT long-term (current) p rocedure are in (SEND OUT) use of other the results medications section. THC (MARIJUANA), Routine 04/03/2015 12:00 Results for this URINE, CONFIRMATION PM EDT procedur e are in the results section. documented in this encounter Results THC (Marijuana), Urine Confirmation (04/03/2015 12:00 PM EDT) [facility] Method Time Signature U THC Conf CERNER Test ? Result ?? Flag ??Uni t ?? RefValue MILLENNIUM Drug of Abuse, THC Conf, U ??GC/MS Confirmation - ? Positive ?THC ??THC Carboxylic Acid ?500 ?ng/mL ?? Cutoff:<3 ADDITIONAL INFORMATION This report is intended for use in clinical monitoring and management of patients. It is not intended for use in employment-related drug testing. Test Performed by: [facility] [employer] [address] Svp Group Director: Patricia Mac, Ph.D. Specimen Anatomical Collection Method Collection Time Receive d Time (Source) Location / / Volume Laterality Urine specimen 04/03/2015 12:00 5 8:43 (specimen) PM EDT AM EDT Resulting Agency Comment Spec In Lab Aracelis Mcknight MD URINE ORDERABLES Performing Organization Address City/State/[place] [address] CERNER MILLENNIUM Drug Screen with Confirmation, Urine (04/03/2015 12:00 PM EDT) Component Value Ref Test Analysis Performed At [facility] wy[facility] Range Method Time Signature U KELY w/Conf CERNER Test ? Result ?? Flag ??Uni t ?? RefValue [facility] Drug Screen, U ??Amphetamines ? [...] ??Morphine ? Negative ? ng/mL ??<100 ??Oxycodone ?2110 ? ng/m L ??<100 ??Oxymorphone ?1640 ? ng/mL ??<100 ADDITIONAL INFORMATION This report is intended for use in clinical monitoring and management of patients. It is not intended for use in employment-related drug testing. Test Performed by: [facility] [address] [address] Svp Group Director: Patricia Mac, Ph.D. Specimen Anatomical Collection Method Collection Time Receive d Time (Source) Location / / Volume Laterality Urine specimen 04/03/2015 12:00 5 8:43 (specimen) PM EDT AM EDT Resulting Agency Comment Spec In Lab Aracelis Mcknight MD URINE ORDERABLES Performing Organization Address City/State/[place] [address] [facility] documented in this encounter Visit Diagnoses Diagnosis Cervical disc displacement Displacement of cervical intervertebral disc without myelopathy Cervical radiculitis Brachial neuritis or radiculitis nos Encounter for long-term (current) use of other medications Cervical radicular pain Brachial neuritis or radiculitis nos documented in this encounter Care Teams Trailer Park Manager Relationship Specialty Start Date End Date Peña Sherman MD PCP - General 04/06/15 01/31/16 [facility] [place]ala [address] [place] [id number] documented as of this encounter
--- OUTSIDE RECORDS SUMMARY | 2022-07-12 00:57 | XMS_ITS | Encounter Summary ---
:1965 Author Organization [facility] [place] [address] Care Team Providers Name Role Phone Ernestina Nowak Primary Care Provider Reason for Visit Reason Comments Medication Refill Encounter Details Date Type Department Care Team Description 03/31/2015 Refill Dermatology at [facility] Jacob Blair III, MD [address] [facility] [place] [address] [place] [address] RD-DERMATOLGY [phone] [place], [place] [address] (Wo rk) Social History Tobacco [...] [facility] PLASTIC SURGERY [place] [phone] ( rk) 08/19/2022 Office Visit Podiatry Tom Titus DPM [place] [phone] ( rk) 09/08/2022 Office Visit Internal Medicine Janay Hay MD [facility] GENERAL INTERNAL MEDICINE [place] [phone] (Wo rk) 10/12/2059 Hospital Encounter Surgery Jim Hanley MD [facility] SPINE CENTER [place] [phone] (Wo rk) Scheduled Procedures Name Priority Associated [...] on filedocumented in this encounter Care Teams Switch Cleaner Relationship Specialty Start Date End Date Ernestina Nowak PA PCP - General 09/03/10 04/05/15 [address] [place] [address] documented as of this encounter
--- OUTSIDE RECORDS SUMMARY | 2022-07-12 00:57 | XMS_ITS | Encounter Summary ---
:1965 Author Organization [facility] Address [address] [place] [address] Care Team Providers Name Role Phone Ernestina Nowak Primary Care Provider Encounter Details Date Type Department Care Team Description 12/14/2014 Telephone Pain Management at Mehreen Christiansen MD [facility] [place] [address] PAIN CLINIC [phone] [place] [phone] (Wo rk) Social History Tobacco Use Types [...] encounter Miscellaneous Notes Telephone Encounter - Mehreen Barnett MD - 12/14/2014 10:53 AM EST Pt had ANGELINA on 12/[address] Medley. Pt reporting shoulder and arm pain that is not any better sincebefore the injection. She reports that during the procedure she felt tightness in her shoulders thathas somewhat resolved. She denies any fever or SHOEMAKER. No tenderness at epidural needle entry site. No weakness in arms. I told her that I do not suspect infection or hematoma, and that she may have had irritation from either the dye or steroid itself, or that it simply failed to help her this time. I also asked Dr. Medley to call her to follow-up as pt seems very anxious over the phone and reports having nightmares about her pain. documented in this encounter Plan of Treatment Upcoming Encounters Date Type Specialty Care Team Description 08/06/2022 Office Visit Plastic Surgery Peña Woodward MD [facility] PLASTIC SURGERY [place], [place] [address] (Flores ordonez) 08/19/2022 Office Visit Podiatry Tom Titus DPM [place], [place] [address] (Flores ordonez) 09/08/2022 Office Visit Internal Medicine Janay Hay MD [facility] GENERAL INTERNAL MEDICINE [place], [place] [address] (Wo rk) 10/12/2059 Hospital Encounter Surgery Jim Hanley MD [facility] SPINE CENTER [place], [place] [address] (Wo rk) Scheduled Procedures Name [...] on filedocumented in this encounter Care Teams Stone Paver Relationship Specialty Start Date End Date Ernestina Nowak PA PCP - General 09/03/10 04/05/15 [address] [place] [address] documented as of this encounter
--- OUTSIDE RECORDS SUMMARY | 2022-07-12 00:57 | XMS_ITS | Encounter Summary ---
:1965 Author Organization [place] [address] Care Team Providers Name Role Phone Ernestina Nowak Primary Care Provider Encounter Details Date Type Department Care Team Description 12/04/2014 Telephone Pain Management at Alina Zavaleta, [place] [address] Social History Tobacco Use Types Packs/Day [...] this encounter Miscellaneous Notes Telephone Encounter - Alina Allen LPN - 12/04/2014 3:55 PM EST Attempted to contact pt regarding upcoming ANGELINA, no answer & no available voicemail. documented in this encounter Plan of Treatment Upcoming Encounters Date Type Specialty Care Team Description 08/06/2022 Office Visit Plastic Surgery Peña Woodward MD [facility] PLASTIC SURGERY [place] [address] (Wo josé luis) 08/19/2022 Office Visit Podiatry Tom Titus DPM [place], [place] [address] (Wo rk) 09/08/2022 Office Visit Internal Medicine Janay Hay MD [facility] GENERAL INTERNAL MEDICINE [place], [place] [address] (Wo rk) 10/12/2059 Hospital Encounter Surgery Jim Hanley MD [facility] SPINE CENTER [place], [place] [address] (Wo rk) Scheduled Procedures Name [...] on filedocumented in this encounter Care Teams Coil Inspector Relationship Specialty Start Date End Date Ernestina Nowak PA PCP - General 09/03/10 04/05/15 [address] [place] [address] documented as of this encounter
--- OUTSIDE RECORDS SUMMARY | 2022-07-12 00:57 | XMS_ITS | Encounter Summary ---
:1965 Author Organization [facility] [place] [address] Care Team Providers Name Role Phone Ernestina Nowak Primary Care Provider Reason for Visit Reason Comments Other Encounter Details Date Type Department Care Team Description 12/26/2014 Telephone Dermatology at [facility] Jacob Blair III, [address] [place] [address] [facility] [phone] AMARI PORRAS-DERMAT [place], [place] [address] (Wo rk) Social History Tobacco [...] Encounter - Jacob Blair III, MD - 12/26/2014 4:42 PM EDT I have attempted to contact this patient by phone with the following results: [facility] Provider: JACOB BLAIR III Pt. Name: JOANNA CAMARA Acc #: [id number] Pt. Col Date: 12/25/2014 /Sex: 1965,(49 years),Female Rec Date: 12/25/2014 LOC: [facility] SURGICAL PATHOLOGY ---Pathologic Diagnosis--- Skin, right hip, shave biopsy: - INTRADERMAL MELANOCYTIC NEVUS WITH CONGENITAL FEATURES, transected This is a benign lesion. A letter was sent to the patient confirming these benign results. If she has problems as the site heals, she will call. Hopefully this will do well. documented in this encounter Plan of Treatment Upcoming Encounters Date Type Specialty Care Team Description 08/06/2022 Office Visit Plastic Surgery Peña Woodward MD [facility] PLASTIC SURGERY [place], [place] [address] (Wo rk) 08/19/2022 Office Visit Podiatry Tom Titus DPM [facility] [address] [place], [place] [address] (Wo rk) 09/08/2022 Office Visit Internal Medicine Janay Hay MD [facility] GENERAL INTERNAL MEDICINE [place], [place] [address] (Wo rk) 10/12/2059 Hospital Encounter Surgery Jim Hanley MD [facility] SPINE CENTER [place], [place] [address] (Wo rk) Scheduled Procedures Name [...] on filedocumented in this encounter Care Teams General Car Supervisor Yard Relationship Specialty Start Date End Date Ernestina Nowak PA PCP - General 09/03/10 04/05/15 [address] [place] [address] documented as of this encounter
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
--- OUTSIDE RECORDS SUMMARY | 2022-07-12 00:57 | XMS_ITS | Encounter Summary ---
:1965 Author Organization [facility] Address [address] [place] [address] Care Team Providers Name Role Phone Ernestina Nowak Primary Care Provider Encounter Details Date Type Department Care Team Description 12/14/2014 Telephone Pain Management at Norbert Sol MD [place] [address] PAIN CLINIC [phone] [place] [id number] (Wo rk) Social History Tobacco Use Types [...] this encounter Miscellaneous Notes Telephone Encounter - Norbert Medley MD - 12/14/2014 10:06 AM EST Call with patient. She's experiencing pressure in the chest but in the arms. She stated this started when I injected the saline during the last epidural. it appears that I probably bumped the spinal cord through the dura when I injected the saline. I did not go through the dura I believe because she did not experience a spinal headache. I explained thesituation to her in detail. I also explained that she may have a median raphe within the ligamentum flavum that makes going through the ligamentum flavum More easily. She states that the symptoms are getting better. Injection was on December 05. I told her that I was very sorry. I apologized. She understood. She Realized that things like this can happen. She was not angry. I told her to call me if things do not resolve in 2 months. I told her that we should have Dr. Buchanan to her cervical epidural se ronn enough because she does her the best. I told her to be more than happy to do her epidurals if Dr. Buchanan is not available. Norbert Medley MD documented in this encounter Plan of Treatment Upcoming Encounters Date Type Specialty Care Team Description 08/06/2022 Office Visit Plastic Surgery Peña Woodward MD [facility] PLASTIC SURGERY [place], [place] [address] (Wo rk) 08/19/2022 Office Visit Podiatry Tom Titus DPM [place], [place] [address] (Wo rk) 09/08/2022 Office Visit Internal Medicine Janay Hay MD [facility] GENERAL INTERNAL MEDICINE [place], [place] [address] (Wo rk) 10/12/2059 Hospital Encounter Surgery Jim Hanley MD [facility] SPINE CENTER [place], [place] [address] (Wo rk) Scheduled Procedures Name [...] on filedocumented in this encounter Care Teams Fire Apparatus Engineer Relationship Specialty Start Date End Date Ernestina Nowak PA PCP - General 09/03/10 04/05/15 [address] [place] [address] documented as of this encounter
--- OUTSIDE RECORDS SUMMARY | 2022-07-12 00:57 | XMS_ITS | Encounter Summary ---
:1965 Author Organization [facility] Address [address] [place] [address] Care Team Providers Name Role Phone Ernestina Nowak Primary Care Provider Encounter Details Date Type Department Care Team Description 12/25/2014 Office Visit Neurology at [facility] [place], Chronic migraine; [facility] Joyletta, APR N Vertigo; Drive [facility] Cervicogenic headache; [place], [place] Pain in right shoulder [phone] NEUROLOGY DEPT. [phone] [place], [place] [address] Social History Tobacco Use Types [...] Sign Reading Time Taken Comments Blood Pressure 129/91 12/25/2014 12:44 PM EDT Pulse 119 12/25/2014 12:44 PM EDT Temperature - - Respiratory Rate - - Oxygen Saturation - - Inhaled Oxygen Concentration - - Weight 102.1 kg (225 lb) 12/25/2014 12:44 PM EDT per pa tient Height 165.1 cm (5' 5) 12/25/2014 12:44 PM EDT per pat iereddy Body Mass Index 37.44 12/25/2014 12:44 PM EDT documented in this encounter Progress Notes Charlie Flor APRN - 12/25/2014 12:58 PM EDT Procedural visit for botox Subjective: Emmanuelle is here for Botox. She is doing pretty well with her headaches. She is having some neck, trunk and hip pain since her cervical steroid injection in pain clinic 12/05/2014. She has had a slight increase in the headaches since the procedure. Botox continues to help reduce the frequency of her severe HAs. She has improvement in her migraine related vertigo spells since starting amerge daily. Gabapentin continues to help as well. She denies any changes in her headaches. Denies headache in office today. Review of systems:chronic head pain as above, neck pain, memory issues, disequilibrium, dizziness (improved on amerge). All other systems were negative. Objective Filed Vitals: 12/25/14 1244 BP: 129/91 Pulse: 119 Plan: Will make no changes to her therapy as patient has improvement with daily Amerge to treat migraine related vertigo, Botox every 10 weeks, nerve blocks/TPIs every 4-6 weeks, abortive medications (Naproxen, methocarbamol) and Gabapentin 900 mg, 900 mg, and 1200 mg . She is also requesting an initial evaluation with Dr. Devries, she feels she needs to be seen by our neurologist since Dr. Fuentes is no longer practicing at [facility] and per patient that is what her ENT MD is requesting. Try lidoderm patchesfor shoulder pain and she will f/u with pain clinic. All of her pain medications are now prescribed by her Pain Med practitioner so did not refill the Vicodin. Potential AE's were discussed at length. MIDAS 26, DAYs Pain 04/20 Consent was obtained and a time-out was [...] units divided between 2 sites in the ed tech muscles, 5 units into 1 site in [...] Woodward MD [facility] PLASTIC SURGERY [place], [place] [address] (Wo rk) 08/19/2022 Office Visit Podiatry Tom Titus DPM [place], [place] [address] (Wo rk) 09/08/2022 Office Visit Internal Medicine Janay Hay MD [facility] GENERAL INTERNAL MEDICINE [place], [place] [address] ( rk) 10/12/2059 Hospital Encounter Surgery Jim Hanley MD [facility] SPINE CENTER [place], [place] [address] ([facility]) Scheduled Procedures Name Priority [...] intractable migraine without mention of status migrainosus Vertigo Dizziness and giddiness Cervicogenic headache Headache Pain in right shoulder Pain in joint, shoulder region documented in this encounter Administered Medications Inactive Administered Medications - up to 3 most recent administrations Medication Order MAR Action Action Date Dose Rate Site botulinum toxin type A (BOTOX) Given 12/25/2014 1:41 PM EDT 200 Units injection 200 Units 200 Units, Intramuscular, ONCE, 1 dose, On 12/25/14 at 1345, Routine documented in this encounter Care Teams Foot Orthopedist Relationship Specialty Start Date End Date Ernestina Nowak PA PCP - General 09/03/10 04/05/15 [address] [place] [address] documented as of this encounter
--- OUTSIDE RECORDS SUMMARY | 2022-07-12 00:57 | XMS_ITS | Encounter Summary ---
:1965 Author Organization [place] [address] Care Team Providers Name Role Phone Peña Sherman MD Primary Care Provider Reason for Visit Reason Comments Pain Management Encounter Details Date Type Department Care Team Description 05/01/2015 Follow-Up Pain Management at Loc Mcknight MD [address] [place] [id number] Cervical disc displacement; [place] Aracelis Mcknight MD [facility] [place] [address] Cervical radiculitis; [facility] Encounter for long-term (current) use of other medications; Elizabeth [place] [address] Social History Tobacco Use Types Packs/Day [...] Sign Reading Time Taken Comments Blood Pressure 142/95 05/01/2015 1:01 PM EDT Pulse 93 05/01/2015 1:01 PM EDT Temperature - - Respiratory Rate - - Oxygen Saturation 98% 05/01/2015 1:01 PM EDT Inhaled Oxygen Concentration - - Weight 102.5 kg (226 lb) 05/01/2015 1:01 PM EDT Height 165.1 cm (5' 5) 05/01/2015 1:01 PM EDT Body Mass Index 37.61 05/01/2015 1:01 PM EDT documented in this encounter Progress Notes Aracelis Mcknight MD - 05/01/2015 1:03 PM EDT Emmanuelle Bynum is a 49 [...] the patient needs to stop smoking. She is now trying to quit by May. This will also help her with plans for gastric bypass. She is trying to cut back, she is down to 3 cigarettes per day, but has not progressed from this. She is moving in May and the new place is smoke free. She is adhering to this plan. Opioid History: The patient has been taking [...] patient. She had been receiving opioids from [facility] for about 8 months. Prior [...] and Percocet 7.5/325 mg Q8, . Prescribed 04/03.Pill count is appropriate. The medication is helpful, [...] - NOT Achieving The UDS was checked (correction: 03/06/15) and Urine toxicology results are consistent with medication prescribed THC levels was present. The patient notes that she went to [place]. She misunderstood aprevious discussion and thought that because it was legal in [place], she would be able to use it. We reviewed today that is not the case. She is no longer using it, but today we discussed that her UDS checked 04/05 was also positive. She states she understood at the last visit that she was not to usemarijuana any longer (see below). The patient has decreased xanax to 3 [...] Outpatient Prescriptions Medication Sig Dispense Refill ??? Betamethasone-Calcipotriene (TACLONEX SCALP) 0.005-0.064 % Suspension Apply 3 times a week to scalp for psoriasis 60 g 2 ??? Clobetasol-Emollient 0.05 % Foam Apply twice daily to scalp psoriasis on weekends as needed 100 g 1 ??? sucralfate (CARAFATE) 1 gram Tablet Take 1 g by mouth 3 times daily. ??? oxyCODONE-acetaminophen (PERCOCET) 7.5-325 mg Tablet Take 1 tablet by mouth every 4 hours as needed for Pain (not to exceed 3 tablets per day). 90 tablet 0 ??? OXYCONTIN 30 mg Tablet Sustained Release 12 hr Take 1 tablet every 12 hours. 60 tablet 0 ??? Lidocaine 5 % Cream Apply to neck three times daily as needed. 45 g 3 ??? cetirizine (ZYRTEC) 10 mg Tablet Take 1 tablet by mouth daily as needed for Allergies. As neededfor itching. 60 tablet 3 ??? montelukast (SINGULAIR) 10 mg Tablet Take 10 mg by mouth nightly. Indications: Allergic Rhinitis ??? fluticasone (VERAMYST) 27.5 mcg/actuation [place], Suspension 2 sprays by Nasal route daily. [...] denies constipation, nausea, somnolence on current opioids. The patient notes that she has gallstones and is going to be evaluated for surgery in June. PHYSICAL EXAM: BP 142/95 Pulse 93 Ht 165.1 cm (5' 5) Wt 102.513 kg (226 lb) BMI 37.61 kg/m2 SpO2 98% Physical Exam Constitutional: She [...] did use marijuana when she was in [place], which was based on a misunderstanding. She thought that since it was legal in [place], she could use it. We discussed that while I am prescribing opioids, she is not to use marijuana and she understands that now. If at some point, it is available as medical marijuana in [place], that may be a consideration. She is compliant with medication usage. Pill count is correct. Urine toxicology is consistent with medication prescribed, except for the presence of marijuana. She states that since I last saw her she has not used and this should be reflected in today's UDS. She understands that if there is THC present at equivalent or increased amounts, I will no longer prescribe opioids for her. [place] and [place] prescription monitoring program were queried and reviewed [...] mg BID # 60. RX to start 05/05. 2. Continue to decrease xanax under the guidance of PCP. 3. Continue effort at smoking cessation. 4. Follow up with Dr. Mcknight in 4 weeks. 5. Lidocaine 2%/Prilocaine 2%/Gabapentin 3%/ Meloxicam 0.1% Aracelis Mcknight MD I spent 24 minutes of this 28 minute visit in coordination of care and counseling the patient regarding medication management, future treatment plans as detailed above. documented in this encounter Plan of Treatment Upcoming Encounters Date Type Specialty Care Team Description 08/06/2022 Office Visit Plastic Surgery Peña Woodward MD [facility] PLASTIC SURGERY [place], [place] [address] (Wo rk) 08/19/2022 Office Visit Podiatry Tom Titus DPM [place], [place] [address] (Wo rk) 09/08/2022 Office Visit Internal Medicine Janay Hay MD [facility] GENERAL INTERNAL MEDICINE [place], [place] [address] (Wo rk) 10/12/2059 Hospital Encounter Surgery Jim Hanley MD [facility] SPINE CENTER [place], [place] [address] (Wo rk) Scheduled Procedures Name [...] Diagnosis Comme nts DRUG SCREEN WITH Routine 05/01/2015 1:05 PM Encounter for Resu lts for this CONFIRMATION, URINE EDT long-term (current) p rocedure are in (SEND OUT) use of other the results medications section. THC (MARIJUANA), Routine 05/01/2015 1:05 PM Resul ts for this URINE, CONFIRMATION EDT procedur e are in the results section. BENZODIAZEPINE, URINE Routine 05/01/2015 1:05 PM Results for this CONFIRMATION EDT procedure are i n the results section. documented in this encounter Results Benzodiazepine, Urine Quantitative (05/01/2015 1:05 PM EDT) [facility] Method Time Signature U Benzo Conf CERNER Test ?Result ?? Flag ??Unit ?? RefValue MILLENNIUM Drug of Abuse, Benzo Conf, U ??GC/MS Confirmation - ?Positive ?Benzodiazepine ??Lorazepam ? Negative ? ng/mL ?? Cutoff: <100 ??Nordiazepam ? Negative ? ng/mL ??C utoff: <100 ??Oxazepam ?Negative ? ng/mL ? ?Cutoff: <100 ??Temazepam ? Negative ? ng/mL ?? Cutoff: <100 ??GW-Xnziz-Vtzdqkegdi ? Negative ? ng/mL ??Cutof f: <100 ??6-TL-Cfezognbrf ? Negative ? ng/mL ??Cut off: <100 ??6-GP-Tvrgytzwywvwy ?Negative ? ng/mL ??Cuto ff: <50 ??Alpha OH-Alprazolam ? 194 ?ng/mL ??Cu toff: <100 ??Ilfob-RE-Vqszuafpq ?Negative ? ng/mL ??Cuto ff: <100 ADDITIONAL INFORMATION This report is intended for use in clinical monitoring and management of patients. It is not intended for use in employment-related drug testing. Test Performed by: [employer] [place] [address] Social Service Technician: Patricia Mac, Ph.D. Specimen Anatomical Collection Method Collection Time Receive d Time (Source) Location / / Volume Laterality Urine specimen 05/01/2015 1:05 PM 015 2:43 (specimen) EDT PM EDT Resulting Agency Comment Spec In Lab Aracelis Mcknight MD URINE ORDERABLES Performing Organization Address City/State/Z[place] [address] RISHABH MILLENNIUM THC (Marijuana), Urine Confirmation (05/01/2015 1:05 PM EDT) [facility] Method Time Signature U THC Conf CERNER Test ?Result ?? Flag ??Unit ?? RefValue MILLENNIUM Drug of Abuse, THC Conf, U ??GC/MS Confirmation - ?Positive ?THC ??THC Carboxylic Acid ? 300 ?ng/mL ??Cu toff:<3 ADDITIONAL INFORMATION This report is intended for use in clinical monitoring and management of patients. It is not intended for use in employment-related drug testing. Test Performed by: [employer] [place] [address] Social Service Technician: Patricia Mac, Ph.D. Specimen Anatomical Collection Method Collection Time Receive d Time (Source) Location / / Volume Laterality Urine specimen 05/01/2015 1:05 PM 015 2:43 (specimen) EDT PM EDT Resulting Agency Comment Spec In Lab Aracelis Mcknight MD URINE ORDERABLES Performing Organization Address City/State/ZIP Code Phon e Number [address] CERNER MILLENNIUM Drug Screen with Confirmation, Urine (05/01/2015 1:05 PM EDT) Component Value Ref Test Analysis Performed At [facility] Range Method Time Signature U KELY [...] ?Negative ? ng/mL ? ?<100 ??Oxycodone ? 5240 ? ng/mL ??<100 ??Oxymorphone ? 1500 ? ng/mL ? ?<100 ADDITIONAL INFORMATION This report is intended for use in clinical monitoring and management of patients. It is not intended for use in employment-related drug testing. Test Performed by: [employer] [address], [place], [place] [address] Social Service Technician: Patricia Mac, Ph.D. Specimen Anatomical Collection Method Collection Time Receive d Time (Source) Location / / Volume Laterality Urine specimen 05/01/2015 1:05 PM 015 2:43 (specimen) EDT PM EDT Resulting Agency Comment Spec In Lab Aracelis Mcknight MD URINE ORDERABLES Performing Organization Address City/State/ZIP [place] [address] [facility] documented in this encounter Visit Diagnoses Diagnosis Cervical disc displacement Displacement of cervical intervertebral disc without myelopathy Cervical radiculitis Brachial neuritis or radiculitis nos Encounter for long-term (current) use of other medications Cervical radicular pain Brachial neuritis or radiculitis nos documented in this encounter Care Teams Machine Welder Relationship Specialty Start Date End Date Peña Sherman MD PCP - General 04/06/15 01/31/16 [place] [address] documented as of this encounter
--- OUTSIDE RECORDS SUMMARY | 2022-07-12 00:57 | XMS_ITS | Encounter Summary ---
:1965 Author Organization [facility] [place] [address] Care Team Providers Name Role Phone Ernestina Nowak Primary Care Provider Reason for Visit Reason Comments Skin Cancer Examination Encounter Details Date Type Department Care Team Description 12/25/2014 Follow-Up Dermatology at Kristin Jacob Potter soriasis (Primary Dx); [address], Neoplasm of unspecified nature of bone, soft tissue, and skin; [address] [facility] Irritated [place] [phone] [facility], [place] [address] (Wo rk) Social History Tobacco [...] encounter Progress Notes Akosua Turner LPN - 12/25/2014 8:31 AM EDT Images from the original note were not included. DERMATOLOGY ESTABLISHED PATIENT CLINIC NOTE Date of service: 12/25/2014 Joanna Camara : 1965 Provider: Jacob Potter MD PROBLEM: recheck psoriasis SKIN HISTORY: Acc #: [id number] Pt. Col Date: 08/03/2012 /Sex: 1965,(46 years),Female Rec Date: 08/03/2012 LOC: 4M ---Pathologic Diagnosis--- A - Skin, left forehead, shave biopsy: Compound nevus, involving the deep biopsy edge. B - Skin, left jawline, shave biopsy: Intradermal nevus, involving the deep biopsy edges. Seborrheic keratoses Psoriaisis HPI Joanna Camara is a 49 y.o. year old female. She is an established patient of mine here for a recheck of her scalp psoriasis. She is in pain at present due to spinal issues. Her scalp psoriasis has been a problem this winter. She used Taclonex and Clobetasol, T gel shampoo. She has heard about an oral medication for psoriasis and would like to discuss this. She has a lesion on her buttock that has been a problem and changing in size. She would like this evaluated. ADR: Allergies Allergen Reactions ??? Methadone Nausea And Vomiting Current Outpatient Prescriptions on File Prior to Visit Medication Sig Dispense Refill ??? oxyCODONE (OXYCONTIN) 30 mg Tablet Sustained Release 12 hr 1 po q12 hrs-use from 12/10 thru 01/08-may fill on 12/07 60 tablet 0 ??? OXYcodone-acetaminophen (PERCOCET) 7.5-325 mg Tablet 1 po q4 hrs prn pain NTE 3/day-use from 12/10thru 01/08-may fill on 12/07 90 tablet 0 ??? levofloxacin (LEVAQUIN) 500 mg Tablet 0 ??? pregabalin (LYRICA) 50 mg Capsule [...] 3 times daily. 90 tablet 5 ??? Betamethasone-Calcipotriene (TACLONEX SCALP) 0.005-0.064 % Suspension apply topically to scalp 2-3 times per week at night for maintenance of psoriasis 60 g 2 ??? clobetasol (TEMOVATE) 0.05 % Solution Apply topically 2 times a day for worse areas of scalp psoriasis for 2 weeks only 50 mL 1 ??? metroNIDAZOLE (FLAGYL) 500 mg Tablet Take 750 mg by mouth 4 times daily. ??? naratriptan (AMERGE) 2.5 mg Tablet Take 1 tablet by mouth twice daily as a preventive for migraines. 60 tablet 3 ??? cycloSPORINE (RESTASIS) 0.05 % Dropperette [...] ??? INSULIN DETEMIR (LEVEMIR FLEXPEN SUBQ) Inject 64 Units subcutaneously 2 times daily. ??? insulin [...] facility-administered medications on file prior to visit. Patient Active Problem List Diagnosis Code ??? [...] long-term (current) use of other medications V58.69 ROS General: feeling well Skin: denies other skin complaints EXAM General: NAD, pleasant, cooperative Skin: Significant skin findings: A. Occipital scalp - well defined erythematous plaques and papules with thick white scale. B. Right hip - 2 mm pink papule subject to irritation and bleeding ASSESSMENT/PLAN: A. Scalp psoriasis - I discussed this condition with the patient and explored therapeutic options. She is not willing to try Clobetasol scalp solution as it christopher. The taclonex has not helped since it has flared- but works well when she is under better control. I recommended she try some clobetasol e foam twice daily for 2-3 weeks to get things under control,then on weekends as needed or use taclonex . Then she can return to Taclolnex on the weekdays. B. Inflamed papule right hip - consider Nevus vs Dermatofibroma (DF) r/o atypia Procedure: Skin biopsy by shave technique Location: right hip Discussed indications for procedure and expectations including [...] were reviewed. Follow-up based on pathology results. The nature of sun-induced photo-aging and skin cancers is discussed. Sun avoidance, protective clothing, and the use of 30-SPF sunscreens is advised. Observe closely for skin damage/changes, and call if such occurs. I am documenting this encounter acting as the scribe for and in the presence of Dr. Potter.: Akosua Turner LPN I performed the above scribed service and agree with the accuracy of the documentation in this encounter. Jacob Potter MD Section of Dermatology [facility] documented in this encounter Plan of Treatment Upcoming Encounters Date Type Specialty Care Team Description 08/06/2022 Office Visit Plastic Surgery Peña Woodward MD [facility] PLASTIC SURGERY [place] [id number] (Wo rk) 08/19/2022 Office Visit Podiatry Tom Titus DPM [place], [place] [address] (Wo rk) 09/08/2022 Office Visit Internal Medicine Janay Hay MD [facility] GENERAL INTERNAL MEDICINE [place], [place] [address] (Wo rk) 10/12/2059 Hospital Encounter Surgery Jim Hanley MD [facility] SPINE CENTER [place], [place] [address] (Wo rk) Scheduled Procedures Name [...] Associated Diagnosis Comme nts SPECIMEN TO Routine 12/25/2014 8:59 AM Neoplasm of Results f or this PATHOLOGY (NON-OR) EDT unspecified nature pro cedure are in of bone, soft the results tissue, and skin section. SURGICAL PATHOLOGY Routine 12/25/2014 8:59 AM Res ults for this REPORT EDT procedure are i n the results section. documented in this encounter Results Surgical Pathology Report (12/25/2014 8:59 AM EDT) [facility] gist Method Time Signature Surgical CERNER Pathology ? [facility] Report ? Provider: ?? JACOB POTTER III Pt. Name: ?? KRISTINE CAMARABERADAM Garcia ?A ? Acc #: ?[id number] ? Pt. ? Col Date: ?? 5 ? /Sex: ?1965,(49 years),Female ? Rec Date: ?? 12/25/2014 ? LOC: ?[facility] ? SURGICAL PATHOLOGY ? ---Pathologic Diagnosis--- ? 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 12/26/14 ? BJM ? 12/26/14 Verified by: ? Matias Montelongo MD ? Dermatopathologist, Bone & Soft Tissue ? Pathologist ? (Electronic Si gnature) ? The attending pathologist whose signature appears o n this report has ? reviewed all diagnostic slides and has edited the cyndie ss and/or ? microscopic portion of the report in rendering the fi nal pathologic ? diagnosis. ? ---Gross Description--- ? A - Labeled/Fixative: Right hip, formalin. ? Quantity/Size: Single, 0.5 x 0.4 x 0.2 cm. ? Tissue Description: Youngblood-pink papule. ? Sections/Processing: Inked and bisected. (T1) ??pps ? ---Clinical Information--- ? Specimen Submitted: ? A - Skin, right hip, shave biopsy (1) ? Clinical History: ? 2 mm pink papule; subject to irritation and bleeding ? Clinical Diagnosis: ? Nevus vs. DF rule out atypia Specimen (Source) Anatomical Collection Method Collection Time Re ceived Time Location / / Volume Laterality 12/25/2014 8:59 AM EDT Jacob Potter III, MD PATHOLOGY/CYTOLOGY ORDERABLE S Performing Organization Address City/State/[place] [address] [facility] Specimen to Pathology (NON-OR) (12/25/2014 8:59 AM EDT) Specimen Anatomical Collection Method Collection Time Receive d Time (Source) Location / / Volume Laterality AP Specimen 12/25/2014 8:59 AM 5 8:59 EDT AM EDT Narrative RISHABH NOBLES - 12/25/2014 8:59 AM E DT Specimen requisition ordered. ??Separate Pathology report to follow Jacob Potter III, MD PATHOLOGY/CYTOLOGY ORDERABLE S Performing Organization Address City/State/[place] [address] RISHABH NOBLES documented in this encounter Visit Diagnoses Diagnosis Psoriasis - Primary Other psoriasis Neoplasm of unspecified nature of bone, soft tissue, and skin Irritated nevus of right thigh documented in this encounter Care Teams Surgical Technology Instructor Relationship Specialty Start Date End Date Ernestina Nowak PA PCP - General 09/03/10 04/05/15 [address] [place], [place] [phone] documented as of this encounter
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
--- OUTSIDE RECORDS SUMMARY | 2022-07-12 00:57 | XMS_ITS | Encounter Summary ---
:1965 Author Organization [facility] [place] [address] Care Team Providers Name Role Phone Peña Sherman MD Primary Care Provider Encounter Details Date Type Department Care Team Description 05/01/2015 Office Visit Neurology at [facility] Ernie Devries MD Chronic migraine [facility] wit hout aura without Drive status migrainosus, [place], [place] NEUROLOGY DEPT. not intractable [id number] [place] [address] [phone] Social History Tobacco Use Types Packs/Day Years [...] documented as of this encounter Progress Notes Ernie Devries MD - 05/01/2015 11:34 AM EDT MIDAS 12, DAYs Pain 02/18 Verbal consent was obtained and a time-out [...] units divided between 2 sites in the middleware administrator muscles, 5 units into 1 site in [...] tolerated the procedure without any immediate complications. She continues to benefit from the Botox injections. Her MIDAS score was 12 with headache on only 10 out of the last 90 days and average pain score of 5. The majority of today's 15-minute office visit was dominated by 10 minutes of direct pumh-zb-tmoi counseling and therapeutic planning with additional time spent in the performance of the procedure and the preparation of this report. documented in this encounter Plan of Treatment Upcoming Encounters Date Type Specialty Care Team Description 08/06/2022 Office Visit Plastic Surgery Peña Woodward MD [facility] PLASTIC SURGERY [place], [place] [address] (Wo rk) 08/19/2022 Office Visit Podiatry Tom Titus DPM [place], [place] [address] (Wo rk) 09/08/2022 Office Visit Internal Medicine Janay Hay MD [facility] GENERAL INTERNAL MEDICINE [place], [place] [address] (Wo rk) 10/12/2059 Hospital Encounter Surgery Jim Hanley MD [facility] SPINE CENTER [place], [place] [address] (Wo rk) Scheduled Procedures Name [...] Site botulinum toxin type A (BOTOX) Given 05/01/2015 11:36 AM EDT 200 Units injection 200 Units 200 Units, Intramuscular, ONCE, 1 dose, On Thu05/01/15 at 1200, Routine documented in this encounter Care Teams Belly Roller Relationship Specialty Start Date End Date Peña Sherman MD PCP - General 04/06/15 01/31/16 [place] [address] documented as of this encounter
--- OUTSIDE RECORDS SUMMARY | 2022-07-12 00:57 | XMS_ITS | Encounter Summary ---
:1965 Author Organization [facility] Address [facility] [place] [address] Care Team Providers Name Role Phone Ernestina Nowak Primary Care Provider Reason for Visit Reason Onset Date Comments Prior Authorization 01/19/2015 LIDODERM PATCHES DEN IED Encounter Details Date Type Department Care Team Description 01/19/2015 Telephone [place]rology [place] [facility] [place], Prior Authorization [facility] WALLY Guerra N (LIDODERM PATCHES Drive [facility] DENIED) [place] [address] NEUROLOGY DEPT. [place], [place] [address] Social History Tobacco Use Types [...] this encounter Miscellaneous Notes Telephone Encounter - Bruce Thurston LPN - 01/29/2015 4:19 PM EDT I informed patient about the below information. She stated that she will call pharmacy to find out mahmood xavier, and if she can afford. I informed her that she also has the option of appealing through her insurance company, and that I will inform [facility] of insurance denial. Telephone Encounter - Sana Cerda - 01/23/2015 9:14 AM EDT LIDODERM PATCHES DENIED Telephone Encounter - Sana Cerda - 01/22/2015 9:02 AM EDT RENEWAL PA FOR LIDODERM PATCHES FAXED TO [facility] Telephone Encounter - Bruce Thurston LPN - 01/19/2015 10:46 AM EDT Patient calling to report that prior authorization is required for lidoderm 5% patches. I verified with pharmacist at [facility] that this is required. documented in this encounter Plan of Treatment Upcoming Encounters Date Type Specialty Care Team Description 08/06/2022 Office Visit Plastic Surgery Peña Woodward MD [facility] PLASTIC SURGERY [place], [place] [address] (Wo rk) 08/19/2022 Office Visit Podiatry Tom Titus DPM [facility] [address]IVE [place], [place] [address] (Wo rk) 09/08/2022 Office Visit Internal Medicine Janay Hay MD [facility] GENERAL INTERNAL MEDICINE [place], [place] [address] (Wo rk) 10/12/2059 Hospital Encounter Surgery Jim Hanley MD [facility] DR SPINE CENTER [place], [place] [address] (Wo rk) Scheduled Procedures Name [...] on filedocumented in this encounter Care Teams Armed Security Professional Relationship Specialty Start Date End Date Ernestina Nowak PA PCP - General 09/03/10 04/05/15 [address] [place] [address] documented as of this encounter
--- OUTSIDE RECORDS SUMMARY | 2022-07-12 00:57 | XMS_ITS | Encounter Summary ---
:1965 Author Organization [facility] Address [facility] [place] [address] Care Team Providers Name Role Phone Peña Sherman MD Primary Care Provider Encounter Details Date Type Department Care Team Description 04/09/2015 Notes Only Pain Management at L Jason Pierson MD [facility] [place] [address] PAIN CLINIC [phone] [place] [phone] (Wo rk) Social History Tobacco Use Types [...] encounter Progress Notes Jason Mcknight MD - 04/09/2015 5:22 PM EDT Urine toxicology results are consistent with medication prescribed and also show aberrancies. The patient had THC present in her urine. This was also present in February. When the UDS from February was discussedwith her, she stated that she had gone to [place] and thought that she could use marijuana there because it is legal. She stated that she had not used since, but given that the trend in the THC is upward and that the levels doubled since her return from [place], this is not the case. I will discuss with her at the next visit that I will not continue to prescribe for her with ongoing marijuana use. JASON MCKNIGHT MD documented in this encounter Plan of Treatment Upcoming Encounters Date Type Specialty Care Team Description 08/06/2022 Office Visit Plastic Surgery Peña Woodward MD [facility] PLASTIC SURGERY [place], [place] [address] (Flores ordonez) 08/19/2022 Office Visit Podiatry Tom Titus DPM [place], [place] [address] (Flores ordonez) 09/08/2022 Office Visit Internal Medicine Janay Hay MD [facility] GENERAL INTERNAL MEDICINE [place], [place] [address] (Wo rk) 10/12/2059 Hospital Encounter Surgery Jim Hanley MD [facility] SPINE CENTER [place], [place] [address] (Wo rk) Scheduled Procedures Name [...] on filedocumented in this encounter Care Teams Copy Center Associate Relationship Specialty Start Date End Date Peña Sherman MD PCP - General 04/06/15 01/31/16 [place] [address] documented as of this encounter
--- OUTSIDE RECORDS SUMMARY | 2022-07-12 00:57 | XMS_ITS | Encounter Summary ---
:1965 Author Organization [facility] Address [facility] [place] [address] Care Team Providers Name Role Phone Ernestina Nowak Primary Care Provider Encounter Details Date Type Department Care Team Description 03/19/2015 Follow-Up Neurology at [facility] [place], Chronic migraine; [facility] Kevin Guerra [place] [address] [facility] [phone] NEUROLOGY DEPT. [place], [place] [address] Social History Tobacco Use Types [...] Sign Reading Time Taken Comments Blood Pressure 117/83 03/19/2015 12:49 PM EDT Pulse 100 03/19/2015 12:49 PM EDT Temperature - - Respiratory Rate - - Oxygen Saturation - - Inhaled Oxygen Concentration - - Weight 104.3 kg (230 lb) 03/19/2015 12:49 PM EDT Height 165.1 cm (5' 5) 03/19/2015 12:49 PM EDT Body Mass Index 38.27 03/19/2015 12:49 PM EDT documented in this encounter Progress Notes Charlie Flor APRN - 03/19/2015 12:56 PM EDT Diagnostic work-up: MRI cervical spine 2014: Impression 1. Moderate C5-6 and C6-7 spinal canal stenosis secondary to endplate degenerative change and disc bulges. 2. Severe bilateral C5-6 neural foraminal stenosis. Moderate left C6-C7 and right C7-T1 neural foraminal stenosis. CT head 03/2014: No intracranial hemorrhage or fracture. Question cerebellar tonsillar ectopia or Chiari 1 malformation. Subjective: Emmanuelle is here for ONBS/TPIs. She is doing pretty well with her headaches. The lidoderm ointment has helped, but she would like to have it in cream. She complains of TMJ symptoms and she does not see a specialist. She continues with amerge daily and it really helps with her migraine associated vertigo and headaches. She denies any changes in her headaches. Emmanuelle feels that Botox has reduced the frequency of her severe HAs but pain in posterior cervical areas is persistent and ONBs/TPIs helps that. She continues to f/u with pain clinic for narcotic prescription. Review of systems:chronic head pain as above, neck pain, memory issues, disequilibrium, dizziness (improved on amerge), slurred speech, nausea. All other systems were negative. Objective Filed Vitals: 03/19/15 1249 BP: 117/83 Pulse: 100 Physical Exam Constitutional: Well-developed, well-nourished, and in no distress. Neck:Limited range of motion. Occipital nerves LYNETTE tender, neck musculature tightness,posterior cervical muscle spasm Assessment: Chronic Migraine without aura Migraine associated vertigo Depression, anxiety Plan: Naproxen, methocarbamol; Botox q 10 week; nerve blocks/TPIs every 4-6 weeks, Continue gabapentin to 900mg morning, 900 mg afternoon, and 900 mg nightly, consider decreasing even more in the future since starting Lyrica through another provider. She continues to respond to naratriptan BID for prevention of headache/vertigo and is happy with treatment. I did inform Emmanuelle that I will be leaving [facility] in March and she will be set up with another provider for the Botox/ONBs/TPI after our last visit. Also gave her the name of Dr. Burt for TMJ treatment. She will have her PCP fax recent labs that were completed, which included her TSH. All of her pain medications are now prescribed by her Pain Med practitioner so I did not refill the Vicodin. Potential AE's were discussed at length. Consent was obtained and a time-out was [...] patient tolerated the procedures without any complications. At least 15 minutes of this 25 minute face to face visit was spent counseling and therapeutic planning discussing potential adverse effects of all medications were discussed in detail, future treatmentoptions, sleep study and explanation of ONB's. We also discussed non-pharmacological approaches chronic headaches (continue yoga) as well as coping strategies, exclusive of the time spent performing the ONB's. I answered all of the patient's questions and she was comfortable with the plan. documented in this encounter Plan of Treatment Upcoming Encounters Date Type Specialty Care Team Description 08/06/2022 Office Visit Plastic Surgery Peña Woodward MD [facility] PLASTIC SURGERY [place], [place] [address] (Wo rk) 08/19/2022 Office Visit Podiatry Tom Titus DPM [place], [place] [address] (Wo rk) 09/08/2022 Office Visit Internal Medicine Janay Hay MD [facility] GENERAL INTERNAL MEDICINE [place], [place] [address] (Wo rk) 10/12/2059 Hospital Encounter Surgery Jim Hanley MD [facility] SPINE CENTER [place], [place] [address] (Wo rk) Scheduled Procedures Name [...] Site BUpivacaine (PF) (MARCAINE) 0.25 % Given 03/19/2015 1:35 PM EDT 15 mg (2.5 mg/mL) injection 15 mg 15 mg, Subcutaneous, ONCE, 1 dose, On Thu03/19/15 at 1330, Routine lidocaine (XYLOCAINE) 10 mg/mL (1 %) injection Given 0 03/19/2015 1:36 PM EDT 60 mg 60 mg 60 mg, Subcutaneous, ONCE, 1 dose, On Thu03/19/15 at 1330, Routine documented in this encounter Care Teams Fuel Manager Relationship Specialty Start Date End Date Ernestina Nowak PA PCP - General 09/03/10 04/05/15 [address] [place] [address] documented as of this encounter
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
--- OUTSIDE RECORDS SUMMARY | 2022-07-12 00:57 | XMS_ITS | Encounter Summary ---
:1965 Author Organization [facility] Address [facility] [place] [address] Care Team Providers Name Role Phone Ernestina Nowak Primary Care Provider Encounter Details Date Type Department Care Team Description 01/16/2015 Follow-Up Neurology at [facility] [place], Chronic migraine without aur a with status migrainosus, not intractable; [facility] WALLY Guerra N Chronic migraine; [facility] Cervicogenic headache; [place] [address] DR Pain in right shoulder [phone] NEUROLOGY DEPT. [place], [place] [address] Social History Tobacco Use Types [...] Time Taken Comments Blood Pressure 127/83 01/16/2015 1:01 PM EDT Pulse 97 01/16/2015 1:01 PM EDT Temperature - - Respiratory Rate - - Oxygen Saturation - - Inhaled Oxygen Concentration - - Weight 106.6 kg (235 lb) 01/16/2015 1:01 PM EDT Height 165.1 cm (5' 5) 01/16/2015 1:01 PM EDT Body Mass Index 39.11 01/16/2015 1:01 PM EDT documented in this encounter Progress Notes Charlie Flor APRN - 01/16/2015 1:17 PM EDT Diagnostic work-up: MRI cervical spine 2013: Impression [...] doing pretty well with her headaches. She has tried the lidoderm patches and has helped tremendously with back/neck pain. She continues with amerge daily and it really helps with her migraine associated vertigo and headaches. She denies any changes inher headaches. Emmanuelle feels that Botox has reduced the frequency of her severe HAs but pain in posterior cervical areas is persistent and ONBs/TPIs helps that. Review of systems:chronic head pain as above, neck pain, memory issues, disequilibrium, dizziness (improved on amerge), slurred speech, nausea. All other systems were negative. Objective Filed Vitals: 01/16/15 1301 BP: 127/83 Pulse: 97 Physical Exam Constitutional: Well-developed, well-nourished, and in no distress. Neck:Limited range of motion. Occipital nerves LYNETTE tender, neck musculature tightness,posterior cervical muscle spasm Assessment: Chronic Migraine without aura Migraine associated vertigo Depression, anxiety Plan: Naproxen, methocarbamol; Botox q 10 week; nerve blocks/TPIs every 4-6 weeks, Continue gabapentin to 900mg morning, 900 mg afternoon, and 1200 mg nightly. She continues to respond to naratriptan BID forprevention of headache/vertigo and is happy with treatment. Consider repeat MRI brain if change in headaches, as it seems it been >10 years since last MRI brain. CT head nml 2013. I did inform Emmanuelle that I will be leaving [facility] in March and she will be set up with another provider for the Botox/ONBs/TPI after our last visit. She will have her PCP fax recent labs that were completed, which included her TSH. She would like to see one of the neurologists (Dr. Devries or Dr. Sanchez) for an initial evaluation since Dr. Fuentes is no longer practicing here and has an appointment scheduled today. All of her pain medications are now prescribed by her Pain Med practitioner so I did not refill the Vicodin. Potential AE's were discussed at length. Verbal Consent was obtained and a time-out was [...] and splenius with 1:1 solutions (total of 8). The patient tolerated the procedures without any [...] Woodward MD [facility] PLASTIC SURGERY [place], [place] [address] (Wo rk) 08/19/2022 Office Visit Podiatry Tom Titus DPM [place], [place] [address] (Wo rk) 09/08/2022 Office Visit Internal Medicine Janay Hay MD [facility] GENERAL INTERNAL MEDICINE [place], [place] [address] (Wo rk) 10/12/2059 Hospital Encounter Surgery Jim Hanley MD [facility] SPINE CENTER [place], [place] [address] (Wo rk) Scheduled Procedures Name [...] ention of intractable migraine with status migrainosus Chronic migraine Chronic migraine without aura, without m ention of intractable migraine without mention of status migrainosus Cervicogenic headache Headache Pain in right shoulder Pain in joint, shoulder region documented in this encounter Administered Medications Inactive Administered Medications - up to 3 most recent administrations Medication Order MAR Action Action Date Dose Rate Site BUpivacaine (PF) (MARCAINE) 0.25 % Given 01/16/2015 2:06 PM EDT 15 mg (2.5 mg/mL) injection 15 mg 15 mg, Subcutaneous, ONCE, 1 dose, On Thu01/16/15 at 1400, Routine lidocaine (XYLOCAINE) 10 mg/mL (1 %) injection Given 0 01/16/2015 2:06 PM EDT 60 mg 60 mg 60 mg, Subcutaneous, ONCE, 1 dose, On Tu01/16/15 at 1400, Routine documented in this encounter Care Teams Deposit Refund Clerk Relationship Specialty Start Date End Date Ernestina Nowak PA PCP - General 09/03/10 04/05/15 [address] [place] [address] documented as of this encounter
--- OUTSIDE RECORDS SUMMARY | 2022-07-12 00:57 | XMS_ITS | Encounter Summary ---
:1965 Author Organization [facility] Address [place] [address] Care Team Providers Name Role Phone Ernestina Nowak Primary Care Provider Encounter Details Date Type Department Care Team Description 03/13/2015 Notes Only Pain Management at Mehreen Christiansen MD [facility] [place] [address] PAIN CLINIC [phone] [place] [id number] (Wo rk) Social History Tobacco Use Types [...] Progress Notes Mehreen Barnett MD - 03/13/2015 7:39 AM EDT UDS on 03/06 is consistent with the oxycodone she is being prescribed. documented in this encounter Plan of Treatment Upcoming Encounters Date Type Specialty Care Team Description 08/06/2022 Office Visit Plastic Surgery Peña Woodward MD [facility] PLASTIC SURGERY [place] [id number] ( josé luis) 08/19/2022 Office Visit Podiatry Tom Titus DPM [place], [place] [address] (Wo rk) 09/08/2022 Office Visit Internal Medicine Janay Hay MD [facility] GENERAL INTERNAL MEDICINE [place], [place] [address] ( rk) 10/12/2059 Hospital Encounter Surgery Jim Hanley MD [facility] SPINE CENTER [place], [place] [address] ( josé luis) Scheduled Procedures [...] on filedocumented in this encounter Care Teams Process Stripper Relationship Specialty Start Date End Date Ernestina Nowak PA PCP - General 09/03/10 04/05/15 [address] [place] [address] documented as of this encounter
--- OUTSIDE RECORDS SUMMARY | 2022-07-12 00:57 | XMS_ITS | Encounter Summary ---
:1965 Author Organization [facility] [place] [address] Care Team Providers Name Role Phone Ernestina Nowak Primary Care Provider Reason for Visit Reason Comments Pain Management Cervicalgia Encounter Details Date Type Department Care Team Description 12/05/2014 Procedure visit Pain Management at Loc Mcknight MD [address] [place] [address] Cervical [place]icular [place] [facility] [place]acelis Mcknight MD [facility] [place] [address] Encounter for long-term (current) [place] [id number] Social History Tobacco Use Types Packs/Day Years [...] Reading Time Taken Comments Blood Pressure 125/78 12/05/2014 4:02 PM EST Pulse 89 12/05/2014 4:02 PM EST Temperature - - Respiratory Rate 20 12/05/2014 4:02 PM EST Oxygen Saturation 97% 12/05/2014 4:02 PM EST Inhaled Oxygen Concentration - - Weight 104.8 kg (231 lb) 12/05/2014 3:34 PM EST Height 165.1 cm (5' 5) 12/05/2014 3:34 PM EST Body Mass Index 38.44 12/05/2014 3:34 PM EST documented in this encounter Patient Instructions Patient InstructionsRoxanna Devries LPN - 12/05/2014 3:43 PM EST Pain Management Center Discharge Instructions: You were seen by Dr. Norbert Medley MD who performed cervical epidural steroid injection. It is normal that the injection site will be sore for up to 48 hours. You may also experience mild stiffness in the joint near the injection site. [x] You may resume your normal activities: tomorrow. You may shower today. DO NOT tub bathe, use whirlpools, hot tubs or pool therapy for 2 days. Remove Band-Aid(s) later today/tomorrow. Do not drive until tomorrow. Use caution walking/climbing stairs as you may be unsteady on your feet. You may use your usual medications, including pain medications, as directed, unless otherwise instructed. You may use an ice pack as needed for the first 24 hours, on for 20 minutes then off for 20 minutes.Do not apply heat today. Attempt to empty your bladder 4-6 hours after your procedure. [x] If you have diabetes, monitor your blood sugars frequently. If your blood sugar increases and isof concern, contact your Primary Care Provider. You received the following medications: Depo-Medrol 40 mg, Lidocaine and Omnipaque (contrast dye). During regular business hours, please phone the Pain Management Center at for appointments or with any questions or if the following or other troubling symptoms develop: 1) Prolonged dizziness or weakness (more than 1 day). 2) Localized swelling, redness or drainage at the injection site(s). 3) Temperature of 101 degrees that lasts for more than 4 hours. After 5 PM or on weekends, call and ask for Pain Clinic provider on-call. If you are unable to reach the Pain Management Center and have a complication, please call your Primary Care Provider or proceed to your local emergency department. Roxanna Devries LPN documented in this encounter Progress Notes Norbert Medley MD - 12/05/2014 4:14 PM EST Patient is also here today to renew her oxycodone OxyContin. She states that these medicines keep her neck and arm pain and a 6/7. No adverse side effects including sedation or constipation. She denies any misuse. Emotionally things are going well. These medicines allow her to PO2 perform light duty around the house. I renewed these medications through January 08. She will see Dr. Bruno yanes on her beforeJanuary 08. Roxanna Devries LPN - 12/05/2014 3:41 PM EST Pre-Procedure Screening Questions: 1. Status: No 2. Patient states they have a driver material handler to transport after procedure? Yes 3. Patient taking antibiotics at present? No 4. NPO per Pain Management Center protocol? Yes 5. Patient diabetic: Yes 6. Patient routinely taking anticoagulants ? No Anticoagulant: Date Stopped: Current INR: Patient Vital Signs documented in Doc Flowsheets associated with this encounter. Patient Discharge Instructions were reviewed with patient and copy provided to patient. documented in this encounter Procedure Notes Norbert Medley MD - 12/05/2014 3:33 PM ESTAssociated Order(s): EPIDURAL STEROID INJECTION Procedure(s): EPIDURAL STEROID INJECTION Pre-Procedure Diagnose(s): Cervical radicular pain Cervical Epidural Steroid Injection Date of Service: 12/05/2014 Patient: Emmanuelle Bynum Diagnosis: 1. Cervical radicular pain Preoperative Notes Patient has had 1 epidural steroid injections in the last 12 months. Today's Operative Note Emmanuelle Bynum was greeted by the nurse who verified patients name and . Patient was then taken to the fluoroscopy suite. I first sat down with the patient and discussed the risks, benefits, side effects, and alternativesof this procedure including increased pain from the procedure, no pain relief, and specifically spinal headache, nerve damage, spinal cord damage, and effects of steroids. Shecomprehended my conversation and accepts the risks and understands the goals of this procedure. All questions and concerns fromthe patient were addressed. There are no contraindications for today's procedure. The printed consent form was signed and witnessed. Standard time-out procedure was performed. The patient was placed in the prone position on the fluoroscopy table and automated blood pressure cuff and pulse oximeter applied. The skin entry point for entering the epidural space by a midline C7-T1 paramedian interlaminar approach was identified under fluoroscopy and marked. Following thorough Ch lorhexadine preparation of the skin and draping and 1% lidocaine infiltration of the skin entry point and subcutaneous tissues, a 22 gauge Tuohy needle was placed under fluoroscopic guidance and with loss of resistance technique into the epidural space along with 55 degree contralateral view. Upon needle placement and loss of resistance there were no paresthesiae or return of blood or CSF through the needle. 40 mg Depomedrol with 2 ml of PFNS was injected with no unusual discomfort expressed by Ms. Bynum. Ms. Bynum's vital signs were stable throughout the procedure and were as recorded in the docflowsheet by the nursing staff. If given, dosages of intravenous drugs for anxiolysis and analgesia were documented in MAR. Follow up plans and appointments were discussed with the Ms. Bynum. Post procedure instruction wasgiven as documented in nursing documentation and having met discharge criteria, she was discharged from the Pain Management Center. Discharge plan: Patient will follow up as needed. Attestation: I performed this procedure myself without any assistance from a resident for a fellow. Attending Physician: Norbert Medley MD documented in this encounter Plan of Treatment Upcoming Encounters Date Type Specialty Care Team Description 08/06/2022 Office Visit Plastic Surgery Peña Woodward MD [facility]ERY [place] [id number] ( rk) 08/19/2022 Office Visit Podiatry Tom Titus DPM [place], [place] [address] ( rk) 09/08/2022 Office Visit Internal Medicine Janay Hay MD [facility] GENERAL INTERNAL MEDICINE [place], [place] [address] (Wo rk) 10/12/2059 Hospital Encounter Surgery Jim Hanley MD [facility] SPINE [facility] [place], [place] [address] (Wo ) Scheduled Procedures Name [...] Associated Diagnosis Comme nts FILM LIBRARY Routine 12/05/2014 5:08 PM Results f or this STORAGE ONLY PAIN EST procedure are in CLINIC C ARM the results section. EPIDURAL STEROID Routine 12/05/2014 4:16 PM Cervical radicular Results for this INJECTION EST pain procedure are i n the results section. documented in this encounter Results Film Library-storage only pain clinic C-arm (12/05/2014 5:08 PM EST) Anatomical Region Laterality Modality Other Specimen (Source) Anatomical Collection Method Collection Time Re ceived Time Location / / Volume Laterality 12/05/2014 5:08 PM EST Narrative 12/05/2014 5:08 PM EST This is a Non-reportable exam Procedure Note TARIK, UNSIGNED REPORT - 12/05/2014Formatt ing of this note might be different from the original. This is a Non-reportable exam Aracelis Mcknight MD IM FILM LIBRARY ORDERABLES EPIDURAL STEROID INJECTION (12/05/2014 4:16 PM EST) Narrative Norbert Medley MD - 12/05/2014 4:16 PM EST Norbert Medley MD ? 12/05/2014 ??4:16 PM Cervical Epidural Steroid Injection Date of Service: 12/05/2014 Patient: ??Emmanuelle Bynum ?? Diagnosis: 1. Cervical radicular pain ?? Preoperative Notes Patient has had 1 epidural steroid injec tions in the last 12 months. Today's Operative Note Emmanuelle Bynum was greeted by the nu rse who verified patients name and . ??Patient was then taken t o the fluoroscopy suite. I first sat down with the patient and d iscussed the risks, benefits, side effects, and alternatives of this procedure including increased pain from the proced ure, no pain relief, and specifically spinal headache, nerve claudia ge, spinal cord damage, and effects of steroids. Shecomprehended my conversation and accepts the risks and understands the go als of this procedure. All questions and concerns from the wilian ent were addressed. There are no contraindications for today's pro cedure. ??The printed consent form was signed and witnessed. ? ?Standard time-out procedure was performed. The patient was placed in the prone posi tion on the fluoroscopy table and automated blood pressure cuff and pulse oximeter applied. ??The skin entry point for ente ring the epidural space by a midline C7-T1 paramedian ??interlamina r approach was identified under fluoroscopy and marked. ??Followin g thorough Chlorhexadine preparation of the skin and draping and 1% lidocaine infiltration of the skin entry point and subcutaneous tissues, a 22 gauge Tuohy needle was placed under fluoroscop ic guidance and with loss of resistance technique into the ep idural space along with 55 degree contralateral view. ??Upon nee dle placement and loss of resistance there were no paresthesiae or return of blood or CSF through the needle. 40 mg Depomedrol wit h 2 ml of PFNS was injected with no unusual discomfort expr essed by Ms. Bynum. Ms. Bynum's vital signs were stable th roughout the procedure and were as recorded in the docflowsheet by the nursing staff. ?? If given, dosages of intravenous drugs f or anxiolysis and analgesia were documented in MAR. Follow up plans and appointments were di scussed with the Ms. Bynum. ??Post procedure instruction wa s given as documented in nursing documentation and having met dis charge criteria, she was discharged from the Pain Management Cent er. Discharge plan: Patient will follow up a s needed. Attestation: I performed this procedure myself without any assistance from a resident for a fellow. Attending Physician: Brooke Nguyễn Norbert Medley MD NEUROLOGY ORDERABLES documented in this encounter Visit Diagnoses Diagnosis Cervical radicular pain Brachial neuritis or radiculitis nos Encounter for long-term (current) use of other medications documented in this encounter Administered Medications Inactive Administered Medications - up to 3 most recent administrations Medication Order MAR Action Action Date Dose Rate Site iohexol (OMNIPAQUE) injection 1 mL Given 12/05/2014 4:00 PM EST 1 mL 1 mL, Epidural, ONCE, 1 dose, On Thu12/05/14 at 1600, Wasted 49 ml, Routine lidocaine (XYLOCAINE) 10 mg/mL (1 %) injection Given 0 12/05/2014 4:00 PM EST 50 mg 50 mg 50 mg, Subcutaneous, ONCE, 1 dose, On Thu12/05/14 at 1600, Routine methylPREDNISolone acetate (depo-MEDROL) Given 12/05/2014 4:00 P M EST 40 mg injection 40 mg 40 mg, Epidural, ONCE, 1 dose, On Thu12/05/14 at 1600, Routine documented in this encounter Care Teams Non Destructive Evaluation Manager Relationship Specialty Start Date End Date Ernestina Nowak PA PCP - General 09/03/10 04/05/15 [address] [place] [address] documented as of this encounter
--- OUTSIDE RECORDS SUMMARY | 2022-07-12 00:57 | XMS_ITS | Encounter Summary ---
:1965 Author Organization [facility] [address] Care Team Providers Name Role Phone Ernestina Nowak Primary Care Provider Encounter Details Date Type Department Care Team Description 12/07/2014 Telephone Pain Management at [facility], [place] [address] Social History Tobacco Use Types Packs/Day [...] Telephone Encounter - Carmen Rivera RN - 12/14/2014 9:37 AM EST Patient called triage nurse stating 'when the doctor injected the medication for my cervical epidural steroid injection i had immediate arm and shoulder pain and chest tightness, patient states the symptoms have continued, and that she had contacted her PCP, but they recommended she call us. She states she continues to have left sided chest pain (heaviness) , muscle tightness sensation in upper arms and night sweats.' afebrile. Day call fellow-Dr. Anibal avina, will call patient Telephone Encounter - Alina Allen LPN - 12/07/2014 11:38 AM EST Pt left message on nurse voice mail requesting a return call. Attempted to return pts call, no answer. Left message, awaiting return call. documented in this encounter Plan of Treatment Upcoming Encounters Date Type Specialty Care Team Description 08/06/2022 Office Visit Plastic Surgery Peña Woodward MD [facility] PLASTIC SURGERY [place], [place] [address] (Wo rk) 08/19/2022 Office Visit Podiatry Tom Titus DPM [place], [place] [address] (Wo rk) 09/08/2022 Office Visit Internal Medicine Janay Hay MD [facility] GENERAL INTERNAL MEDICINE [place], [place] [address] ([facility]) 10/12/2059 Hospital Encounter Surgery Jim Hanley MD [facility] SPINE [facility] [place], [place] [address] ([facility]) Scheduled Procedures Name [...] on filedocumented in this encounter Care Teams Shop Cooper Relationship Specialty Start Date End Date Ernestina Nowak PA PCP - General 09/03/10 04/05/15 [address] [place] [address] documented as of this encounter
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
--- OUTSIDE RECORDS SUMMARY | 2022-07-12 00:57 | XMS_ITS | Encounter Summary ---
:1965 Author Organization [facility] [place] [address] Care Team Providers Name Role Phone Peña Sherman MD Primary Care Provider Reason for Visit Reason Onset Date Comments Medication Refill 04/12/2015 Encounter Details Date Type Department Care Team Description 04/12/2015 Refill [facility] Jacob Langston III, MD Psoriasis [address] [facility] [address] [facility] [address] [facility] [address]-DERMATOLGY [phone] [place], [place] [address] (Wo rk) Social History Tobacco [...] [facility] [place] [phone] ([facility]) 08/19/2022 Office Visit Podiatry Tom Titus DPM [place] [phone] ([facility]) 09/08/2022 Office Visit Internal Medicine Janay Hay MD [facility] GENERAL INTERNAL MEDICINE [place] [phone] ( rk) 10/12/2059 Hospital Encounter Surgery Jim Hanley MD [facility] SPINE CENTER [place] [phone] ( rk) Scheduled Procedures Name Priority Associated [...] psoriasis documented in this encounter Care Teams Golf Caddie Relationship Specialty Start Date End Date Peña Sherman MD PCP - General 04/06/15 01/31/16 YAN Edgar [address] [place] [address] documented as of this encounter
--- OUTSIDE RECORDS SUMMARY | 2022-07-12 00:57 | XMS_ITS | Encounter Summary ---
:1965 Author Organization [facility] Address [facility] [address] [place] [address] Care Team Providers Name Role Phone Ernestina Nowak Primary Care Provider Encounter Details Date Type Department Care Team Description 10/19/2014 Notes Only Pain Management at L Jason Pierson MD [facility] [place] [address] PAIN CLINIC [phone] [place] [phone] (Wo rk) Social History Tobacco Use Types [...] encounter Progress Notes Jason Mcknight MD - 10/19/2014 10:54 PM EST Please note correction; previous notes only incorrect in review of UDS. Correct interpretation: Urine toxicology results are consistent with medication prescribed. THC is present, but decreased from previous UDS, indicating that the patient has likely stopped using marijuana as previously discussed. JASON MCKNIGHT MD documented in this encounter Plan of Treatment Upcoming Encounters Date Type Specialty Care Team Description 08/06/2022 Office Visit Plastic Surgery Peña Woodward MD [facility] PLASTIC SURGERY [place] [phone] (Flores ordonez) 08/19/2022 Office Visit Podiatry Tom Titus DPM [place], [place] [address] (Flores rk) 09/08/2022 Office Visit Internal Medicine Janay Hay MD [facility] GENERAL INTERNAL MEDICINE [place], [place] [address] (Flores ordonez) 10/12/2059 Hospital Encounter Surgery Jim Hanley MD [facility] SPINE CENTER [place], [place] [address] (Wo rk) Scheduled Procedures Name [...] filedocumented in this encounter Care Teams Certified Public Accountant Relationship Specialty Start Date End Date Ernestina Nowak PA PCP - General 09/03/10 04/05/15 [address] [place] [address] documented as of this encounter
--- OUTSIDE RECORDS SUMMARY | 2022-07-12 00:57 | XMS_ITS | Encounter Summary ---
:1965 Author Organization [facility] [address] Care Team Providers Name Role Phone Ernestina Nowak Primary Care Provider Reason for Visit Reason Onset Date Comments Medication Refill 04/03/2015 Encounter Details Date Type Department Care Team Description 04/03/[address] [facility] Jacob Blair III, MD [address] [place] [phone] [facility] [address]-DERMATOLGY [phone] [place], [place] [address] (Wo rk) Social History Tobacco [...] MD [facility] PLASTIC SURGERY [place] [phone] ([facility]) 08/19/2022 Office Visit Podiatry Tom Titus DPM [place] [phone] ([facility]) 09/08/2022 Office Visit Internal Medicine Janay Hay MD [facility] GENERAL INTERNAL MEDICINE [place] [phone] ( rk) 10/12/2059 Hospital Encounter Surgery Jim Hanley MD [facility] SPINE CENTER [place] [phone] ( rk) Scheduled Procedures Name Priority Associated [...] on filedocumented in this encounter Care Teams Photograph Editor Relationship Specialty Start Date End Date Ernestina Nowak PA PCP - General 09/03/10 04/05/15 [address] [place] [address] documented as of this encounter
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
--- OUTSIDE RECORDS SUMMARY | 2022-07-12 00:58 | XMS_ITS | Encounter Summary ---
:1965 Author Organization [facility] [place] [address] Care Team Providers Name Role Phone Ernestina Nowak Primary Care Provider Encounter Details Date Type Department Care Team Description 10/16/2014 Follow-Up Neurology at [facility] [place]acho, Chronic migraine without aur a with status migrainosus, not intractable; [facility] WALLY Guerra N Cervicogenic headache; [facility] Chronic migraine without aur a without status migrainosus, not intractable; [place] [address] Chronic migraine [phone] NEUROLOGY DEPT. [place], [place] [address] Social History Tobacco Use [...] Sign Reading Time Taken Comments Blood Pressure 141/93 10/16/2014 1:02 PM EST Pulse 105 10/16/2014 1:02 PM EST Temperature - - Respiratory Rate - - Oxygen Saturation - - Inhaled Oxygen Concentration - - Weight 101.7 kg (224 lb 3.2 oz) 10/16/2014 1:02 PM EST Height 165.1 cm (5' 5) 10/16/2014 1:02 PM EST Body Mass Index 37.31 10/16/2014 1:02 PM EST documented in this encounter Progress Notes Charlie Flor APRN - 10/16/2014 1:11 PM EST Procedural visit for botox Subjective: Emmanuelle is here for Botox. She is doing pretty well with her headaches. Botox continuesto help reduce the frequency of her severe HAs. She has improvement in her migraine related vertigo spells since starting amerge daily. Gabapentin continues to help as well. Her last cervical epidural steroid injection was completed in July and continue to f/u pain clinic for narcotic therapy. She denies any changes in her headaches. Denies headache in office today. Review of systems:chronic head pain as above, neck pain, memory issues, disequilibrium, dizziness (improved on amerge). All other systems were negative. Objective Filed Vitals: 10/16/14 1302 BP: 141/93 Pulse: 105 Plan: Will make no changes to her [...] Dr. Fuentes is no longer practicing at [facility] [place] and per patient that is what her ENT MD is requesting. All of her pain medications are now prescribed by her Pain Med practitioner so did not refill the Vicodin. Potential AE's were discussed at length. MIDAS 16, DAYs Pain 07/21 Consent was obtained and a time-out was [...] units divided between 2 sites in the mathematics lecturer muscles, 5 units into 1 site in [...] Woodward MD [facility] PLASTIC SURGERY [place], [place] [address] (Wo rk) 08/19/2022 Office Visit Podiatry Tom Titus DPM [place], [place] [address] (Wo rk) 09/08/2022 Office Visit Internal Medicine Janay Hay MD [facility] GENERAL INTERNAL MEDICINE [place], [place] [address] (Wo rk) 10/12/2059 Hospital Encounter Surgery Jim Hanley MD [facility] SPINE CENTER [place], [place] [address] [...] status migrainosus Cervicogenic headache Headache Chronic migraine without aura without st atus migrainosus, not intractable Chronic migraine without aura, without m ention of intractable migraine without mention of status migrainosus Chronic migraine Chronic migraine without aura, without m ention of intractable migraine without mention of status migrainosus documented in this encounter Administered Medications Inactive Administered Medications - up to 3 most recent administrations Medication Order MAR Action Action Date Dose Rate Site botulinum toxin type A (BOTOX) Given 10/16/2014 1:36 PM EST 200 Units injection 200 Units 200 Units, Intramuscular, ONCE, 1 dose, On 10/16/14 at 1345, Routine documented in this encounter Care Teams Cath Lab Radiology Technician Relationship Specialty Start Date End Date Ernestina Nowak PA PCP - General 09/03/10 04/05/15 [address] [place] [address] documented as of this encounter
--- OUTSIDE RECORDS SUMMARY | 2022-07-12 00:58 | XMS_ITS | Encounter Summary ---
:1965 Author Organization [facility] [address] [place] [id number] Care Team Providers Name Role Phone Ernestina Nowak Primary Care Provider Encounter Details Date Type Department Care Team Description 10/03/2014 Hospital Encounter Radiology Library at [place], Masha López MD [facility] [place] [address] [place] [address] [phone] (Wo rk) Social History Tobacco Use Types Packs/Day Years Used Date Current Every Day Smoker Cigarettes 0.5 13 Smokeless Tobacco: Never Used Alcohol Use Standard Drinks/Week Comments No 0 (1 standard drink = 0.6 oz pure denies history of alcohol abuse alcohol) Alcohol Habits Answer Date Recorded How often do you have a drink Not asked containing alcohol? How many drinks containing alcohol do Not asked you have on a typical day when you are drinking? How often do you have six or more Not asked drinks on one occasion? Comment: denies history of alcohol abuse 09/06/20 14 Physical Activity Answer Date Recorded On average, [...] Sig Dispensed Refills Start Date End Date Betamethasone-Calcipo apply topically to 60 g 2 201312/25/2014 triene (TACLONEX scalp 2-3 times per SCALP) 0.005-0.064 % week at night for SuspensionIndications maintenance of : Psoriasis psoriasis clobetasol (TEMOVATE) Apply topically 2 50 mL 1 014 07/26/2015 0.05 % times a day for worse SolutionIndications: areas of scalp Psoriasis psoriasis for 2 weeks only oxyCODONE (OXYCONTIN) Take 1 tablet by mouth 60 tablet 0 10/10/2014 30 mg Tablet every 12 hours. Sustained Release 12 hr OXYcodone-acetaminoph Take 1 tablet by mouth 90 tablet 0 10/10/2014 en (PERCOCET) 7.5-325 every 8 hours as mg Tablet needed for Pain. metroNIDAZOLE Take 750 mg by mouth 4 0 12/25/2014 (FLAGYL) 500 mg times daily. Tablet naratriptan (AMERGE) Take 1 tablet by mouth 60 tablet 3 04/201412/25/2014 2.5 mg twice daily as a TabletIndications: preventive for Chronic migraine, migraines. Vertigo, Chronic migraine without aura, Cervicogenic headache pregabalin (LYRICA) Take 50 mg by mouth 3 0 10/17/2014 50 mg Capsule times daily. cycloSPORINE Place 1 drop into both 60 vial 11 07/17/2014 12/05/2015 (RESTASIS) 0.05 % eyes every 12 hours. DropperetteIndication s: MGD (meibomian gland dysfunction) methocarbamol Take 2 tablets by 50 tablet 3 05/23/2014 01/0 02/2015 (ROBAXIN-750) 750 mg mouth 3 times daily as tabletIndications: needed. Chronic migraine without aura, Cervicogenic headache gabapentin Take 1 capsule in the 120 capsule 5 05/23/2014 (NEURONTIN) 300 mg morning, 1 capsule capsuleIndications: afternoon and 2 Chronic migraine capsules at night. without aura, Cervicogenic headache, Chronic migraine naproxen sodium TAKE 1 TABLET BY MOUTH 30 tablet 2 04/30/20 14 10/16/2014 (ANAPROX) 550 mg TWICE DAILY NEEDED tablet ondansetron (ZOFRAN) Take 4 mg by mouth [...] mouth 0 07/04/2020 40 mg capsule daily. gabapentin Take 1 tablet by mouth 90 tablet 5 01/30/2014 (NEURONTIN) 600 mg 3 times daily. tabletIndications: Chronic migraine without aura Eflornithine 13.9 % Apply topically 2 30 [...] Peña Woodward MD [facility] PLASTIC SURGERY [place], [place] [address] (Wo rk) 08/19/2022 Office Visit Podiatry Tom Titus DPM [place], [place] [address] (Wo rk) 09/08/2022 Office Visit Internal Medicine Janay Hay MD [facility] GENERAL INTERNAL MEDICINE [place], [place] [address] (Wo rk) 10/12/2059 Hospital Encounter Surgery Jim Hanley MD [facility] SPINE CENTER [place], [place] [address] (Wo rk) Scheduled Procedures Name [...] Associated Diagnosis Comme nts FILM LIBRARY Routine 10/03/2014 12:00 AM Pain Results for this STORAGE ONLY CT EST procedure ar e in ABDOMEN AND PELVIS the resul ts section. documented in this encounter Results Film Library- Storage Only CT Abdomen & Pelvis (10/03/2014 12:00 AM EST) Specimen (Source) Anatomical Location Collection Method / Collectio n Time Received Time / Laterality Volume Narrative User, Generic Transmittal - 07/27/2015 1 0:07 AM EDT See PACS for result report. Fabricio Grant MD G FILM LIBRARY ORDERABLES documented in this encounter Visit Diagnoses Not on filedocumented in this encounter Care Teams Extrusion Press Operator Relationship Specialty Start Date End Date Ernestina Nowak PA PCP - General 09/03/10 04/05/15 [address] [place] [address] documented as of this encounter
--- OUTSIDE RECORDS SUMMARY | 2022-07-12 00:58 | XMS_ITS | Encounter Summary ---
:1965 Author Organization [facility] [place] [address] Care Team Providers Name Role Phone Ernestina Nowak Primary Care Provider Encounter Details Date Type Department Care Team Description 07/17/2014 [place] [facility], Chronic migraine without aur a; [facility] WALLY Guerra N Cervicogenic headache; [facility] Chronic migraine; [place] [address] [address] [phone] NEUROLOGY DEPT. [place], [place] [address] Social History Tobacco Use Types [...] Sign Reading Time Taken Comments Blood Pressure 113/81 07/17/2014 11:06 AM EDT Pulse 123 07/17/2014 11:06 AM EDT Temperature - - Respiratory Rate - - Oxygen Saturation - - Inhaled Oxygen Concentration - - Weight 98 kg (216 lb) 07/17/2014 11:06 AM EDT Height 165.1 cm (5' 5) 07/17/2014 11:06 AM EDT Body Mass Index 35.94 07/17/2014 11:06 AM EDT documented in this encounter Progress Notes Charlie Flor, SHELLY - 07/17/2014 11:28 AM EDT CC:This is a 48 y.o. woman, [...] struggled with a tendency to overuse opioids. MRI brain I can not find in her records and seems to be >[address] Fuentes notes. Diagnostic work-up: CT head 03/2014 No intracranial hemorrhage or fracture. Question cerebellar tonsillar ectopia or Chiari 1 malformation.(04/2014 negative MRI cervical spine) MRI cervical spine 04/2014: Impression 1. Moderate C5-6 and C6-7 spinal [...] of sleep Subjective: Emmanuelle is here for ONBS/TPIs accompanied with her boyfriend. She is doing pretty well with her headaches. She did try the amerge daily and it really helped with her migraine associated vertigo and headaches. She did have cervical epidural steroid injection on 05/08 in the pain clinic and will have a repeat in Jul. She denies any changes in her headaches. Emmanuelle feels that Botox has reduced the frequency of her severe HAs but pain in posterior cervical areas is persistent and ONBs/TPIshelps that. Denies headache in office today. Review of systems:chronic head pain as above, neck pain, memory issues, disequilibrium, dizziness (improved on amerge), slurred speech, nausea. All other systems were negative. Objective Filed Vitals: 07/17/14 1106 BP: 113/81 Pulse: 123 Physical Exam Constitutional: Well-developed, well-nourished, and in no distress. Head: Normocephalic and atraumatic. Eyes: EOM are normal. Pupils are equal, round, and reactive to light. 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 Occipital nerves LYNETTE tender, neck musculature tightness,posterior cervical muscle spasm Neuro: AOx3, mild swaying with Romberg, not dysarthric in office or ataxic, CN's intact, reflexes intact Assessment: Chronic Migraine without aura Migraine associated vertigo Depression, anxiety Possible tendency for overuse of opioids Obesity Plan: Naproxen, methocarbamol; Botox today and q 3 mo; nerve blocks every 4-6 weeks, Continue gabapentin to 900mg morning, 900 mg afternoon, and 1200 mg nightly. Since she responded well with her trial of Naratriptan 2.5 mg BID, will promote for naratriptan 2.5 mg twice daily for prevention of headache/vertigo rather than acute treatment. This is based on a small study published in Headache in 2003 where refractory chronic migraine patients were given naratriptan twice daily and there was a positive response noted. Baseline EKG's were obtained and few adverse reactions were noted. She will get the baseline EKG checked if okay will prescribe Amerge 2.5mg BID as a preventive . We discussed possible adverse reactions and will possibly need a PA. Consider repeat MRI brain if change in headaches, as it seems it been >10 years since last MRI brain. CT head nml. She would like to see one of the neurologists (Dr. Devries or Dr. Sanchez) for an initial evaluation since Dr. Fuentes is no longer practicing here All of her pain medications are now [...] including SCM, paraspinals and splenius with 1:1 solutions (total of 7). The patient tolerated the procedures without any complications. documented in this encounter Plan of Treatment Upcoming Encounters Date Type Specialty Care Team Description 08/06/2022 Office Visit Plastic Surgery Peña Woodward MD [facility] PLASTIC SURGERY [place], [place] [address] (Wo rk) 08/19/2022 Office Visit Podiatry Tom Titus DPM [place], [place] [address] (Wo rk) 09/08/2022 Office Visit Internal Medicine Janay Hay MD [facility] GENERAL INTERNAL MEDICINE [place], [place] [address] (Wo rk) 10/12/2059 Hospital Encounter Surgery Jim Hanley MD [facility] SPINE CENTER [place], [place] [address] (Wo rk) Scheduled Procedures [...] Associated Diagnosis Comme nts EKG 12-LEAD Routine 07/17/2014 3:57 PM Chronic migraine Resul ts for this EDT without aura procedure are in the Cervicogenic headache result s section. documented in this encounter Results EKG 12 Lead (07/17/2014 3:57 PM EDT) Component Value Ref Range Test Analysis Performed Pathologis t Method Time At Signature Ventricular rate 86 BPM MUSE SYSTEM Atrial Rate 86 BPM MUSE SYSTEM P-R Interval 150 ms MUSE SYSTEM QRS Duration 84 ms MUSE SYSTEM Q-T Interval 346 ms MUSE SYSTEM QTC Calculated 414 ms MUSE SYSTEM (Bezet) Calculated P [place] 47 degrees MUSE SYSTEM Calculated R [place] 30 degrees MUSE SYSTEM Calculated T [place] 61 degrees MUSE SYSTEM INTERPRETATION Normal sinus rhythm MUSE SYSTEM Nonspecific T wave abnormality Abnormal ECG No previous ECGs available Confirmed by MD NIXON, TERE ([id number]) on 07/17/2014 9:34:02 PM Specimen Anatomical Collection Method Collection Time Receive d Time (Source) Location / / Volume Laterality 07/17/2014 3:57 PM 4 9:34 EDT PM EDT Ernie Devries MD ECG ORDERABLES Performing Organization Address City/State/ZIP Code Phon e Number MUSE SYSTEM documented in this encounter Visit Diagnoses Diagnosis Chronic migraine without aura Chronic migraine without aura, without m ention of intractable migraine without mention of status migrainosus Cervicogenic headache Headache Chronic migraine Chronic migraine without aura, without m ention of intractable migraine without mention of status migrainosus Vertigo Dizziness and giddiness documented in this encounter Administered Medications Inactive Administered Medications - up to 3 most recent administrations Medication Order MAR Action Action Date Dose Rate Site BUpivacaine (PF) (MARCAINE) 0.25 Given 07/17/2014 12:06 PM EDT 1 2.5 mg % (2.5 mg/mL) injection 12.5 mg 12.5 mg, Subcutaneous, ONCE, 1 dose, On Thu07/17/14 at 1200, Routine lidocaine (XYLOCAINE) 10 mg/mL (1 %) Given 07/17/2014 12:06 PM E DT 50 mg injection 50 mg 50 mg, Subcutaneous, ONCE, 1 dose, On Thu07/17/14 at 1200, Routine documented in this encounter Care Teams Rock Splitter Relationship Specialty Start Date End Date Ernestina Nowak PA PCP - General 09/03/10 04/05/15 [address] [place] [address] documented as of this encounter
--- OUTSIDE RECORDS SUMMARY | 2022-07-12 00:58 | XMS_ITS | Encounter Summary ---
:1965 Author Organization [facility] [address] Care Team Providers Name Role Phone Ernestina Nowak Primary Care Provider Encounter Details Date Type Department Care Team Description 10/03/2014 Refill Dermatology at [facility] Jacob Blair III, MD Psoriasis [address] [place] [address] [phone] [place], [place] [address] (Wo rk) Social History Tobacco [...] this encounter Miscellaneous Notes Telephone Encounter - Jeremy Webber - 10/03/2014 9:58 AM EST Emmanuelle's pharmacy called saying that she is looking for a refill of her Betamethasone-Calcipotriene (TACLONEX SCALP) 0.005-0.064 % Susp. Jeremy Hadley CC: Marlon documented in this encounter Plan of Treatment Upcoming Encounters Date Type Specialty Care Team Description 08/06/2022 Office Visit Plastic Surgery Peña Woodward MD [facility] PLASTIC SURGERY [place], [place] [address] (Flores ordonez) 08/19/2022 Office Visit Podiatry Tom Titus DPM [place], [place] [address] (Flores ordonez) 09/08/2022 Office Visit Internal Medicine Janay Hay MD [facility] GENERAL INTERNAL MEDICINE [place], [place] [address] (Wo rk) 10/12/2059 Hospital Encounter Surgery Jim Hanley MD [facility] SPINE CENTER [place], [place] [address] (Wo rk) Scheduled Procedures Name [...] psoriasis documented in this encounter Care Teams Commercial Escrow Officer Relationship Specialty Start Date End Date Ernestina Nowak PA PCP - General 09/03/10 04/05/15 [address] [place] [address] documented as of this encounter
--- OUTSIDE RECORDS SUMMARY | 2022-07-12 00:58 | XMS_ITS | Encounter Summary ---
:1965 Author Organization [facility] [place] [address] Care Team Providers Name Role Phone Ernestina Nowak Primary Care Provider Reason for Visit Reason Onset Date Comments Medication Refill 09/20/2014 Encounter Details Date Type Department Care Team Description 09/20/2014 Refill Dermatology at [facility] Jacob Blair III, MD Psoriasis [address] [facility] [place] [address] [facility] [address] [phone] [place], [place] [address] (Wo rk) Social History Tobacco [...] this encounter Miscellaneous Notes Telephone Encounter - Katey Madrigal CMA - 09/20/2014 8:10 AM EST 09/20/2014 8:10 AM Danica faxed over a refill request for this patient. Request for Clobetasol 0.05% solution 50 ml.I pended the order. documented in this encounter Plan of Treatment Upcoming Encounters Date Type Specialty Care Team Description 08/06/2022 Office Visit Plastic Surgery Peña Woodward MD [facility] PLASTIC SURGERY [place], [place] [address] (Flores ordonez) 08/19/2022 Office Visit Podiatry Tom Titus DPM [place], [place] [address] ([place] ordone[place]) 09/08/2022 Office Visit Internal Medicine Janay Hay MD [facility] GENERAL INTERNAL MEDICINE [place], [place] [address] (Wo rk) 10/12/2059 Hospital Encounter Surgery Jim Hanley MD [facility] DR SPINE [facility] [place], [place] [address] (Wo rk) Scheduled Procedures [...] psoriasis documented in this encounter Care Teams Yard Person Relationship Specialty Start Date End Date Ernestina Nowak PA PCP - General 09/03/10 04/05/15 [address] [place] [address] documented as of this encounter
--- OUTSIDE RECORDS SUMMARY | 2022-07-12 00:58 | XMS_ITS | Encounter Summary ---
:1965 Author Organization [facility] [place] [address] Care Team Providers Name Role Phone Ernestina Nowak Primary Care Provider Reason for Visit Reason Comments Neck Pain Right Arm Pain Encounter Details Date Type Department Care Team Description 05/08/2014 Procedure visit Pain Management at Loc Mcknight MD [address] [place] [address] Cervical spinal [facility] Aracelis Mcknight MD [facility] [place] [address] [place] [id number] Social History Tobacco Use Types Packs/Day Years [...] Sign Reading Time Taken Comments Blood Pressure 123/81 05/08/2014 2:49 PM EDT Pulse 91 05/08/2014 2:49 PM EDT Temperature - - Respiratory Rate 18 05/08/2014 2:49 PM EDT Oxygen Saturation 97% 05/08/2014 2:49 PM EDT Inhaled Oxygen Concentration - - Weight 99.8 kg (220 lb) 05/08/2014 2:20 PM EDT Height 165.1 cm (5' 5) 05/08/2014 2:20 PM EDT Body Mass Index 36.61 05/08/2014 2:20 PM EDT documented in this encounter Patient Instructions Patient InstructionsMarita Barber RN - 05/08/2014 2:23 PM EDT Pain Management Center Discharge Instructions: You were seen by Dr. Aracelis Mcknight MD who performed cervical epidural steroid injection. [...] for 20 minutes.Do not apply heat today. [x] You received Midazolam 1.5 mg through an intravenous line, to lessen the anxiety/pain of your procedure. DO NOT operate heavy or dangerous equipment/tools, or sign important papers today. Attempt to empty your bladder 4-6 hours after your procedure. [x] If you have diabetes, monitor your blood sugars frequently. If your blood sugar increases and isof concern, contact your Primary Care Provider. You received the following medications: Lidocaine, Omnipaque (contrast dye) and Dexamethasone SodiumPhosphate 10 mg. During regular business hours, please phone the [...] or proceed to your local emergency department. Marita Barber RN Special instructions documented in this encounter Progress Notes Marita Barber RN - 05/08/2014 2:21 PM EDT Pre-Procedure Screening Questions: 1. Status: No 2. Patient states they have a company tanker truck driver to transport after procedure? Yes 3. Patient taking antibiotics at present? No 4. NPO per Pain Management Center protocol? Yes 5. Patient diabetic: Yes 6. Patient routinely taking anticoagulants ? No Anticoagulant: Date Stopped: Current INR: Patient Vital Signs documented in Doc Flowsheets associated with this encounter. Patient Discharge Instructions were reviewed with patient and copy provided to patient. IV anxiolysis: Yes IV placement: Location of IV Insertion: [ x ] Right [ ] Left [ x ] hand [ ] anterior forearm [ ] posterior forearm [ ] AC [ ] upper arm [ ] other: IV Gauge: [ x ] 24G [ ] 22G [ ] 20G After IV insertion completed, IV was secured with occlusive transparent dressing. IV site is patent and intact. Patient is without complaint upon completion of IV insertion. Started by: Marita Barber RN Initiated by: Marita Barber RN IV Solution: LR 1000ml - rate as directed by proceduralist Total Volume Intravenous Fluid infused documented in the Medication Administration Record (MAR) Site condition at IV removal: [ ] Clear [ ] Bruised [ ] other: Administration of IV anxiolysis procedural medications documented in MAR as ordered by proceduralist documented in this encounter Procedure Notes Aracelis Mcknight MD - 05/08/2014 2:35 PM EDTAssociated Order(s): EPIDURAL STEROID INJECTION Procedure(s): EPIDURAL STEROID INJECTION Pre-Procedure Diagnose(s): Cervical spinal stenosis PROCEDURE NOTE: Cervical Epidural Steroid Injection with Fluoroscopic Guidance C7-T1 Chief Complaint: neck pain, right arm pain. Radiation to the 2nd and 3 rd fingers. Emmanuelle Bynum has been referred to the [facility] Management [facility] for cervical epidural steroid injection. She has had previous ANGELINA with very good relief. She had a cervical MRI today showin. Moderate C5-6 and C6-7 spinal canal stenosis secondary to endplate degenerative change and disc bulges. 2. Severe bilateral C5-6 neural foraminal stenosis. Moderate left C6-C7 and right C7-T1 neural foraminal stenosis. She has had previous MBB on the right with a few hours of relief. She had less than 80 % relief. Shewas originally scheduled for MBB, but has seen Radha Manuel who is reevaluating the patient for radicular pain. The patient has had relief of radicular pain in the past with ANGELINA. Ms. Bynum was interviewed and the medical record reviewed. There were no medical, pharmacologic, radiographic or other structural contraindications to attempting fluoroscopically guided epidural steroid injection. Risks and expected side effects as well as potential benefit of the procedure were revi ewed with Ms. Bynum, and her voiced concerns were addressed. The printed consent form was signed and witnessed. Standard time-out procedure was performed. Emmanuelle Bynum was greeted by the nurse who verified patients name and . Patient was then taken to the fluoroscopy suite. Technique After informed written consent was obtained, the patient was placed in the prone position. The cervical spine was prepped with chloraprep and draped. Sterile technique was used, vital signs (blood pressure cuff and pulse oximeter) were monitored, gown, cap, glove, mask were worn ,time out was done. Using fluoroscopic guidance, the C7-T1 interspace was identified. The skin and subcutaneous structures were anesthetized with lidocaine 1% to a total volume of 5_ml. An 18 g tuohy needle was advanced to the medial aspect of the lamina of T1 until os was contacted. The needle was then advanced toward midiline to the epidural space using the loss of resistance technique with saline and fluoroscopic guidance. The needle was advanced into the epidural space under lateral view, with spot checks to AP view. There was no blood or CSF. Under Lateral and AP view 1 cc's of Omnipaque 240 while visualized with digital subtraction. There was no evidence of intravascular uptake, the epidural space was delineated. The patient then received Decadron (preservative free, non particulate) 10 mg diluted in preservative free normal saline to a total volume of 3 ml after negative aspiration for blood or CSF. There was not any unusual discomfort expressed by Emmanuelle Bynum. If given, dosages of intravenous drugs for anxiolysis and analgesia were documented in MAR. Radiographs were archived in radiology. Outcome: The patient tolerated the procedure well and had stable vital signs. Follow up plans and appointments were discussed with Emmanuelle Bynum. The patient was observed in the pain clinic and then discharged after having met discharge criteria to the care of a company tanker truck driver. The patient received written instructions as documented in nursing records. COMMENTS: The patient tolerated the procedure well. The patient received midazolam 1.5 mg IV. Repeat as needed. Follow-up with Radha Manuel as planned. CC: YUNIOR ALEX @PCPADD@ documented in this encounter Plan of Treatment Upcoming Encounters Date Type Specialty Care Team Description 08/06/2022 Office Visit Plastic Surgery Peña Woodward MD [facility] PLASTIC SURGERY [place], [place] [address] (Wo rk) 08/19/2022 Office Visit Podiatry Tom Titus DPM [facility] [address] [place], [place] [address] (Wo rk) 09/08/2022 Office Visit Internal Medicine Janay Hay MD [facility] GENERAL INTERNAL MEDICINE [place], [place] [address] (Wo rk) 10/12/2059 Hospital Encounter Surgery Jim Hanley MD [facility] SPINE CENTER [place], [place] [address] (Wo rk) Pending Results Name Type Priority Associated Diagnoses Date/Ti me XR Fluoro OR c-arm Imaging Routine 4 3:06 PM EDT storage only Scheduled Orders Name Type Priority Associated Diagnoses Order S chedule XR Fluoro OR c-arm Imaging Routine Once PRN (for Radiant storage only use) for 1 Occu rrences starting 2013 until 05/08/2014 Scheduled Procedures Name Priority Associated Diagnoses Date/Time [...] Name Priority Date/Time Associated Diagnosis Comme nts EPIDURAL STEROID Routine 05/08/2014 2:54 PM Cervical spinal Re sults for this INJECTION EDT stenosis procedure are i n the results section. documented in this encounter Results EPIDURAL STEROID INJECTION (05/08/2014 2:54 PM EDT) Narrative Aracelis Mcknight MD - 05/08/2014 2:54 P M EDT Aracelis Mcknight MD ? 05/08/2014 ??2:54 PM ?? PROCEDURE NOTE: Cervical Epidural Steroi d Injection with Fluoroscopic Guidance C7-T1 Chief Complaint: neck pain, right arm pa in. Radiation to the 2nd and 3 rd fingers. Emmanuelle Bynum has been referred to the [facility] for cervical epidural steroid inj ection. She has had previous ANGELINA with very good relief. She had a cervical MRI today showin. Moderate C5-6 and C6-7 spinal canal s tenosis secondary to endplate degenerative change and disc bulges. 2. Severe bilateral C5-6 neural foramina l stenosis. Moderate left C6-C7 and right C7-T1 neural foraminal stenosi s. She has had previous MBB on the right wi th a few hours of relief. She had less than 80 % relief. She was o riginally scheduled for MBB, but has seen Radha Manuel who is r eevaluating the patient for radicular pain. The patient has had relief of radicular pain in the past with ANGELINA. Ms. Bynum was interviewed and the [facility] record reviewed. ?? There were no medical, pharmacologic, ra diographic or other structural contraindications to attempti ng fluoroscopically guided epidural steroid injection. ??Ris ks and expected side effects as well as potential benefit of the procedure were reviewed with Ms. Bynum, and her voice d concerns were addressed. ??The printed consent form wa s signed and witnessed. ?? Standard time-out procedure was performbaltazar d. Emmanuelle Bynum was greeted by the nu rse who verified patients name and . ??Patient was then taken t o the fluoroscopy suite. Technique After informed written consent was obtai con, the patient was placed in the prone position. The cervic al spine was prepped with chloraprep and draped. ??Sterile techniq ue was used, ??vital signs (blood pressure cuff and pulse oximeter) were monitored, gown, cap, glove, mask were worn ,time out was done. Using fluoroscopic guidance, the C7-T1 i nterspace was identified. The skin and subcutaneous structures we re anesthetized with lidocaine 1% to a total volume of 5_ml. ?? An 18 g tuohy needle was advanced to the medial aspect of the lamina of T1 until os was contacted. ??The needle was then adv anced toward midiline ??to the epidural space using the loss of res istance technique with saline and fluoroscopic guidance. The ne edle was advanced into the epidural space under lateral view, w ith spot checks to AP view. There was no blood or CSF. ?? Under Lateral and AP view ??1 cc's of Om nipaque 240 while visualized with digital subtraction. ??T here was no evidence of intravascular uptake, the epidural space was delineated. ??The patient then received Decadron (preserva tive free, non particulate) ??10 mg diluted in preserva tive free normal saline to a total volume of 3 ml after negative as piration for blood or CSF. ??There was not any unusual discomf ort expressed by Emmanuelle Bynum. If given, dosages of intraven ous drugs for anxiolysis and analgesia were documented in DEC. Radiographs were archived in radiology. Outcome: The patient tolerated the proce dure well and had stable vital signs. ??Follow up plans and appoi ntments were discussed with Emmanuelle Bynum. The patient was observed in the pain clinic and then discharged after having met discharge criteria ?? to the care of a company tanker truck driver. ??The patient r eceived written instructions as documented in nursing re cords. ?? COMMENTS: The patient tolerated the proc edure well. The patient received midazolam 1.5 mg IV . Repeat as needed. Follow-up with Radha Manuel as planned. CC: YUNIOR ALEX @PCPADD@ Procedure Note Aracelis Mcknight MD - 05/08/2014 2:35 P M EDT PROCEDURE NOTE: Cervical Epidural Steroi d Injection with Fluoroscopic Guidance C7-T1 Chief Complaint: neck pain, right arm pa in. Radiation to the 2nd and 3 rd fingers. Emmanuelle Bynum has been referred to the [facility] for cervical epidural steroid injection. She has had previous ANGELINA with very good relief. She had a cervical MRI today showin. Moderate C5-6 and C6-7 spinal canal s tenosis secondary to endplate degenerative change and disc bulges. 2. Severe bilateral C5-6 neural foramina l stenosis. Moderate left C6-C7 and right C7-T1 neural foraminal stenosi s. She has had previous MBB on the right wi th a few hours of relief. She had less than 80 % relief. She was originally scheduled for MBB, but has seen Radha Manuel who is reevaluating the patient for radicular pain. The patient has had relief of radicular pain in the past with ANGELINA. Ms. Bynum was interviewed and the [facility] record reviewed. There were no medical, pharmacologic, radiographic or other structural contraindications to attempting fluoroscopically guided epidural steroid injection. Risks and expected side effec ts as well as potential benefit of the procedure were reviewed with Ms. Bynum, and her voiced concerns were addressed. The printed consent form was signed and witnessed. Standard time-out procedure was performe d. Emmanuelle Bynum was greeted by the rse who verified patients name and . Patient was then taken to the fluoroscopy suite. Technique After informed written consent was obtai con, the patient was placed in the prone position. The cervical spine was prepped with chloraprep and draped. Sterile technique was used, vital signs (blood pressure cuff and pulse oximeter) were monitored, gown, cap, liu ve, mask were worn ,time out was done. Using fluoroscopic guidance, the C7-T1 i nterspace was identified. The skin and subcutaneous structures were anesthetized with lidocaine 1% to a total volume of 5_ml. An 18 g tuohy needle was advanced to the medial aspect of the lamina of T1 until os was contacted. The needle was then advanced toward midiline to the epidural space using the loss of resistance technique with saline and fluoroscopic guidance. The needle was advanced into the epidural space under l ateral view, with spot checks to AP view. There was no blood or CSF. Under Lateral and AP view 1 cc's of Omni paque 240 while visualized with digital subtraction. There was no evidence of intravascular uptake, the epidural space was delineated. The patient then received Decadron (preservative free, non particulate) 10 mg diluted in preservative free normal saline to a total volume of 3 ml after negative aspiration for blood or CSF. There was not any unusual discomfort expressed by Emmanuelle Bynum. If given, dosages of intraven ous drugs for anxiolysis and analgesia were documented in MAR. Radiographs were archived in radiology. Outcome: The patient tolerated the proce dure well and had stable vital signs. Follow up plans and appointments were discussed with Emmanuelle Bynum. The patient was observed in the pain clinic and then discharged after having met discharge criteria to t he care of a company tanker truck driver. The patient received written instructions as documented in nursing records. COMMENTS: The patient tolerated the proc edure well. The patient received midazolam 1.5 mg IV . Repeat as needed. Follow-up with Radha Manuel as planned. CC: YUNIOR ALEX @PCPADD@ Aracelis Mcknight MD NEUROLOGY ORDERABLES documented in this encounter Visit Diagnoses Diagnosis Cervical spinal stenosis Spinal stenosis in cervical region documented in this encounter Administered Medications Inactive Administered Medications - up to 3 most recent administrations Medication Order MAR Action Action Date Dose Rate Site iohexol (OMNIPAQUE) injection 1 mL Given 05/08/2014 3:00 PM EDT 1 mL 1 mL, Epidural, ONCE, 1 dose, On Thu05/08/14 at 1500, Wasted 49 ml, Routine lactated ringers infusion 100 mL New Bag 05/08/2014 3:00 PM EDT 100 mLs 100 mL, Intravenous, ONCE, 1 dose, On Thu05/08/14 at 1500 methylPREDNISolone acetate (depo-MEDROL) Given 05/08/2014 3:00 P M EDT 80 mg injection 80 mg 80 mg, Epidural, ONCE, 1 dose, On Thu05/08/14 at 1500, Routine midazolam (PF) (VERSED) 1 mg/mL injection 1 Given 05/08/2014 3:00 PM EDT 1.5 mg mg 1 mg, Intravenous, ONCE, 1 dose, On Thu05/08/14 at 1500, Routine documented in this encounter Care Teams Scientific Recruiter Relationship Specialty Start Date End Date Ernestina Nowak PA PCP - General 09/03/10 04/05/15 [address] [place] [address] documented as of this encounter
--- OUTSIDE RECORDS SUMMARY | 2022-07-12 00:58 | XMS_ITS | Encounter Summary ---
:1965 Author Organization [facility] [place] [address] Care Team Providers Name Role Phone Ernestina Nowak Primary Care Provider Encounter Details Date Type Department Care Team Description 05/08/2014 Hospital Encounter MRI at [facility], DR [facility] Dieter Phillips MD [facility] [place] [address] [place] [address] Social History Tobacco Use Types Packs/Day [...] Sig Dispensed Refills Start Date End Date naproxen sodium TAKE 1 TABLET BY MOUTH 30 tablet 2 04/30/20 14 10/16/2014 (ANAPROX) 550 mg TWICE DAILY NEEDED tablet cycloSPORINE Place 1 drop into both 30 vial 11 03/26/2014 07/17/2014 (RESTASIS) 0.05 % eyes every 12 hours. ophthalmic emulsionIndications: MGD (meibomian gland dysfunction) ondansetron (ZOFRAN) 4 Take 4 mg by mouth 0 02/10/2017 mg tablet every 8 hours as needed. promethazine Take 25 mg by mouth 0 08/2021 (PHENERGAN) 25 mg every 6 hours as tablet needed. oxyCODONE (OXYCONTIN) Take 30 mg by mouth 2 0 09/06/2014 30 mg CR tablet times daily. ALPRAZolam (XANAX) 1 Take 1 mg by mouth 3 0 03/14/2022 mg tablet times daily as needed. FLUoxetine (PROZAC) 40 Take 80 mg by mouth 0 07/04/2020 mg capsule daily. SUMAtriptan succinate Inject 0.5 mLs 4 Syringe 3 01/30/2014 05/23/2014 (SUMAVEL DOSEPRO) 6 subcutaneously 2 times mg/0.5 mL daily as needed. As NfIjIndications: needed Chronic migraine without aura gabapentin (NEURONTIN) Take 1 capsule by 90 capsule 5 201305/23/2014 300 mg mouth 3 times daily. capsuleIndications: Chronic migraine without aura gabapentin (NEURONTIN) Take 1 tablet by mouth 90 tablet 5 0 01/30/2014 10/16/2014 600 mg 3 times daily. tabletIndications: Chronic migraine without aura clobetasol (TEMOVATE) Apply topically 2 50 mL 1 014 09/20/2014 0.05 % external times a day for worse solutionIndications: areas of scalp Psoriasis psoriasis for 2 weeks only Eflornithine 13.9 % Apply topically 2 30 g 2 4 02/10/2017 CreaIndications: times daily. For Hirsutism excessive facial hair Betamethasone-Calcipot apply topically to 60 g 2 01/1910/03/2014 riene (TACLONEX SCALP) scalp 2-3 times at 0.005-0.064 % night for maintenance SuspIndications: of psoriasis Psoriasis OXYcodone-acetaminophe Take 1 tablet by mouth 0 09/06/2014 n (PERCOCET) 7.5-325 4 times daily. mg per tablet methocarbamol Take 2 tablets by 50 tablet 2 09/20/201305/12 (ROBAXIN-750) 750 mg mouth 3 times daily as tabletIndications: needed. Chronic migraine without aura INSULIN DETEMIR Inject 74 Units 0 08/12 (LEVEMIR FLEXPEN SUBQ) subcutaneously 2 times daily. Reported on 02/10/2017 insulin aspart Inject 74 Units 0 05/14 (NOVOLOG) 100 unit/mL subcutaneously 2 times pen injection daily. Sliding scale lisinopril Take 10 mg by mouth 0 11/13 (PRINIVIL;ZESTRIL) 10 daily. mg tablet ARIPiprazole (Abilify) Take 30 mg by mouth 0 03/14/2022 30 mg Tablet daily. esomeprazole (NEXIUM) Take 40 mg by mouth 2 0 09/201110/29/2018 40 mg capsule times daily. documented as of this encounter Miscellaneous Notes Miscellaneous - Provider, Jennifer - 06/01/2014 9:29 AM EDT documented in this encounter Plan of Treatment Upcoming Encounters Date Type Specialty Care Team Description 08/06/2022 Office Visit Plastic Surgery Peña Woodward MD [facility] PLASTIC SURGERY [place], [place] [address] (Wo rk) 08/19/2022 Office Visit Podiatry Tom Titus DPM [facility] DRIVE [place], [place] [address] (Wo rk) 09/08/2022 Office Visit Internal Medicine Janay Hay MD [facility] GENERAL INTERNAL MEDICINE [place], [place] [address] (Wo rk) 10/12/2059 Hospital Encounter Surgery Jim Hanley MD [facility] SPINE CENTER [place], [place] [address] (Wo rk) Scheduled Procedures Name [...] Diagnosis Comme nts MRI CERVICAL SPINE Routine 05/08/2014 1:48 PM Res ults for this WO CONTRAST EDT procedure are i n the results section. documented in this encounter Results MRI cervical spine WO contrast (05/08/2014 1:48 PM EDT) Anatomical Region Laterality Modality C-spine Magnetic Resonance Specimen (Source) Anatomical Collection Method Collection Time Re ceived Time Location / / Volume Laterality 05/08/2014 1:48 PM EDT Narrative 05/08/2014 2:12 PM EDT Examination MR Cspine WO Rashaad Clinical History neck and bilateral arm pain Comparison MRI cervical spine 12/27/2012 Technique MRI of the cervical spine was performed without contrast MR, radiculopathy protocol ?? Findings Motion artifact is present. There is sub tle reversal of the normal cervical lordosis at C5-6. There is mild levoscol iotic curvature of the cervicothoracic junction. Sagittal alignment is maintain ed. The regional bone marrow signal is normal. The vertebral body heights are m aintained. There is loss of T2 signal and height at the C5-6 and C6-7 interver tebral discs associated surrounding edematous degenerative endplate changes. ??The cervical cord is grossly normal in signal and caliber. The prevertebral soft tissues are normal in thickness. ?? Findings at individual levels: ?? C2-C3: No spinal canal or neural foramin al narrowing. ?? C3-C4: No spinal canal or neural foramin al narrowing. ?? C4-C5: No spinal canal or neural foramin al narrowing. ?? C5-C6: Disk height loss and posterior di sc osteophyte complex appears to contact the ventral cord. Moderate spina l canal stenosis. Uncovertebral and facet arthropathy contributes to severe bilateral neural foraminal stenosis. ?? C6-C7: Posterior osteophytes and disc bu lge increase the ventral CSF space and appear to indent the ventral cord. Uncov ertebral osteophytes contributes to moderate focal left neural foraminal buddy nosis. ??No significant right neural foraminal stenosis ?? C7-T1: No significant central canal narr owing. ??Hypertrophic facet arthropathy on the right contributes to moderate jean claude ral foraminal stenosis. No significant left neural foraminal stenosis. ?? Impression ? 1. Moderate C5-6 and C6-7 spinal canal stenosis secondary to endplate degenerative change and disc bulges. ? 2. Severe bilateral C5-6 neural f oraminal stenosis. ??Moderate left C6-C7 and right C7-T1 neural foraminal stenosi s. Procedure Note Lauren Yusuf MD - 05/08/2014Form atting of this note might be different from the original. Examination MR Cspine WO Rashaad Clinical History neck and bilateral arm pain Comparison MRI cervical spine 12/27/2012 Technique MRI of the cervical spine was performed without contrast MR, radiculopathy protocol Findings Motion artifact is present. There is sub tle reversal of the normal cervical lordosis at C5-6. There is mild levoscol iotic curvature of the cervicothoracic junction. Sagittal alignment is maintain ed. The regional bone marrow signal is normal. The vertebral body heights are m aintained. There is loss of T2 signal and height at the C5-6 and C6-7 interver tebral discs associated surrounding edematous degenerative endplate changes. The cervical cord is grossly normal in signal and caliber. The prevertebral soft tissues are normal in thickness. Findings at individual levels: C2-C3: No spinal canal or neural foramin al narrowing. C3-C4: No spinal canal or neural foramin al narrowing. C4-C5: No spinal canal or neural foramin al narrowing. C5-C6: Disk height loss and posterior di sc osteophyte complex appears to contact the ventral cord. Moderate spina l canal stenosis. Uncovertebral and facet arthropathy contributes to severe bilateral neural foraminal stenosis. C6-C7: Posterior osteophytes and disc bu lge increase the ventral CSF space and appear to indent the ventral cord. Uncov ertebral osteophytes contributes to moderate focal left neural foraminal buddy nosis. No significant right neural foraminal stenosis C7-T1: No significant central canal narr owing. Hypertrophic facet arthropathy on the right contributes to moderate jean claude ral foraminal stenosis. No significant left neural foraminal stenosis. Impression 1. Moderate C5-6 and C6-7 spinal canal stenosis secondary to endplate degenerative change and disc bulges. 2. Severe bilateral C5-6 neural foramin al stenosis. Moderate left C6-C7 and right C7-T1 neural foraminal stenosi s. Radha Manuel APRN IMG MRI ORDERABLES documented in this encounter Visit Diagnoses Not on filedocumented in this encounter Care Teams Rv Detailer Relationship Specialty Start Date End Date Ernestina Nowak PA PCP - General 09/03/10 04/05/[address] [place] [id number] documented as of this encounter
--- OUTSIDE RECORDS SUMMARY | 2022-07-12 00:58 | XMS_ITS | Encounter Summary ---
:1965 Author Organization [facility] [place] [address] Care Team Providers Name Role Phone Ernestina Nowak Primary Care Provider Reason for Referral Surgical (Routine) - Closed Specialty Diagnoses / Procedures Referred By Contact Refer red To Contact Orthopaedics Diagnoses Cervical radicular pain Radha Manuel, SHELLY [facility] Spine 3d [facility] D [facility] PAIN MEDICINE [place] [id number] [place] [address] Referral ID Status Reason Start Date Expiration Date Visits V isits Requested Authorized [id number] Closed Consult, 07/17/2014 01/13/2015 1 1 Test & Treat Reason for Visit Reason Comments Other follow up Encounter Details Date Type Department Care Team Description 07/17/2014 Office Visit Spine Center at Radha Manuel, Cervica l radicular 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 Bustamante May 08 and EMG nerve conduction study done in her neurology at the end of June for right arm symptoms. Her response has been minimal. She continues to have right arm pain and is now having some left arm pain as well. .Medications and allergies were reviewed.numbness: location right arm Objective: Exam is not repeated. Imaging Reveals bilateral foraminal narrowing at C5-6 and right-sided narrowing at C7-T1 there is also some left-sided narrowing at C6-7.. Assessment: She is multilevel cervical disc degeneration with foraminal compromise and some central canal stenosis. She has predominantly right arm symptoms down the arm into the middle 2 and ring finger. Plan: We discussed a repeat injection with Dr. Mcknight. She also has an upcoming appointment coming with a physical therapist locally. She will keep that appointment. She would like to followup with me after her injection with Dr. Mcknight and she would also like to see a surgeon to see if she has any surgical options. Because of this, I have ordered AP and lateral flexion-extension films and I'll see her on the same day as her surgical consultation but afterwards. All questions were answered today we can also followup on her injection the same day. documented in this encounter Plan of Treatment Upcoming Encounters Date Type Specialty Care Team Description 08/06/2022 Office Visit Plastic Surgery Peña Woodward MD [facility] PLASTIC SURGERY [place] [phone] ([facility]) 08/19/2022 Office Visit Podiatry Tom Titus DPM [place], [place] [address] ([facility]) 09/08/2022 Office Visit Internal Medicine Janay Hay MD [facility] GENERAL INTERNAL MEDICINE [place], [place] [address] ([facility]) 10/12/2059 Hospital Encounter Surgery Jim Hanley MD [facility] SPINE CENTER [place], [place] [address] ([facility]) Scheduled Procedures Name Priority Associated Diagnoses Date/Time @ARTHRODESIS, POSTERIOR CERVICAL Cervical spondy l[facility] myelopathy Neck pain Pseudoarthrosis of [...] Routine Cervical radicul ar Ordered: Center pain 07/17/2014 documented as of this encounter Visit Diagnoses Diagnosis Cervical radicular pain - Primary Brachial neuritis or radiculitis nos documented in this encounter Care Teams Key Maker Relationship Specialty Start Date End Date Ernestina Nowak PA PCP - General 09/03/10 04/05/15 [address] [place] [address] documented as of this encounter
--- OUTSIDE RECORDS SUMMARY | 2022-07-12 00:58 | XMS_ITS | Encounter Summary ---
:1965 Author Organization [facility] [place] [address] Care Team Providers Name Role Phone Ernestina Nowak Primary Care Provider Encounter Details Date Type Department Care Team Description 08/03/2014 Telephone Pain Management at Valentina Waller, RN [facility] [place] [address] Social History Tobacco Use Types Packs/Day [...] Telephone Encounter - Valentina Perez LPN - 08/03/2014 4:33 PM EDT No voice mail box set up documented in this encounter Plan of Treatment Upcoming Encounters Date Type Specialty Care Team Description 08/06/2022 Office Visit Plastic Surgery Peña Woodward MD [facility] PLASTIC SURGERY [place] [phone] (Wo rk) 08/19/2022 Office Visit Podiatry Tom Titus DPM [place] [phone] (Wo rk) 09/08/2022 Office Visit Internal Medicine Janay Hay MD [facility] GENERAL INTERNAL MEDICINE [place] [phone] (Wo rk) 10/12/2059 Hospital Encounter Surgery Jim Hanley MD [facility] SPINE CENTER [place] [phone] ([place]o jos[place] luis) Scheduled Procedures Name Priority [...] filedocumented in this encounter Care Teams Online Producer Relationship Specialty Start Date End Date Ernestina Nowak PA PCP - General 09/03/10 04/05/[address] [place] [phone] documented as of this encounter
--- OUTSIDE RECORDS SUMMARY | 2022-07-12 00:58 | XMS_ITS | Encounter Summary ---
:1965 Author Organization [facility] [place] [address] Care Team Providers Name Role Phone Ernestina Nowak Primary Care Provider Reason for Visit Reason Comments Neck Pain Pain Management Encounter Details Date Type Department Care Team Description 10/10/2014 [facility] Encounter for long-term (cur rent) use of other medications [facility] [address] [place] [address] [place] [address] [phone] (Wo rk) Social History Tobacco Use Types [...] Sign Reading Time Taken Comments Blood Pressure 134/82 10/10/2014 2:05 PM EST Pulse 93 10/10/2014 2:05 PM EST Temperature - - Respiratory Rate - - Oxygen Saturation 98% 10/10/2014 2:05 PM EST Inhaled Oxygen Concentration - - Weight 102.1 kg (225 lb) 10/10/2014 2:05 PM EST Height 165.1 cm (5' 5) 10/10/2014 2:05 PM EST Body Mass Index 37.44 10/10/2014 2:05 PM EST documented in this encounter Progress Notes Norbert Medley MD - 10/10/2014 5:53 PM EST Attestation is in chart NORBERT MEDLEY MD Jay Strauss DO - 10/10/2014 4:51 PM EST Subjective: Patient ID: This is Emmanuelle Bynum's follow up evaluation by our clinic. This is a new patient for me. History of Present Illness Major changes since the last evaluation None Status of her complaint(s) show no change Medication side effects Somnolence Progress with previously stated goals None Injections/surgeries since last visit None Imaging since the last visit None Lab work since the last visit Review of Systems Her review of systems are unchanged. She continues to have somnolence and constipation related to which she is managing with Senokot. She has no respiratory depression by history Objective: Physical Exam Constitutional: She appears well-developed and well-nourished. HENT/Head: Normocephalic. Cardiovascular: Normal rate. Pulmonary/Chest: Effort normal. Neurological: She is alert. Psychiatric: She has a normal mood and affect. Her behavior is normal. Her judgment and thought content are normal. Labs to be reviewed I reviewed the previous UDS which was consistent with therapy Imaging to be reviewed None Urine Drug Screen confirmations reviewed Yes Assessment and Plan: ASSESSMENT Encounter Diagnoses Name Primary? Cervical radicular pain ??? Encounter for long-term (current) use of other medications . DISCUSSION This is a 48 y.o. female who presents with continued complaint of cervical pain with radicular symptoms into her arms. She has been maintained on her current medications which include oxycodone 30 mg every 12 and Percocet 7.5/325 mg 1Q8. She reports that these medications decrease her pain by approximately 90%. She also has been undergoing cervical epidural steroid injections which she reports gives her 3 months relief at the time. Today she requests that we schedule a repeat cervical epidural steroid injection soon as she she reports return of her symptoms. TREATMENT PLAN After a thorough review of the history and physical examination, Ms. Byunm and I discussed the following options in detail: Recommended Diagnostic & Therapeutic modalities: ?? Physical therapy/exercise: Continues ?? Diagnostic testing/Lab work: Urine drug screen was done today to confirm that she has stopped smoking marijuana as directed by Dr. Mcknight ?? Interventional procedures: Cervical epidural steroid injection is scheduled ?? Medication(s): We once again discussed the risks/benefits/indication for the prescribed medication. She understands and does consent. There is a completed and signed medication contract in the chart. She understands her rights and responsibilities as documented in the medication contract. I have reviewed the [place] controlled substance registry today and found no inconsistencies. There have been inconsistencies on the previous urine drug screen confirmations with regards to presence of THC. There have been no red flags raised during today's visit. Orders Placed This Encounter Medications ??? OXYcodone-acetaminophen (PERCOCET) 7.5-325 mg Tablet Sig: Take 1 tablet by mouth every 8 hours as needed for Pain. Starting on Dispense: 90 tablet Refill: 0 ??? oxyCODONE (OXYCONTIN) 30 mg Tablet Sustained Release 12 hr Sig: Take 1 tablet by mouth every 12 hours. Starting Oct 11 Dispense: 60 tablet Refill: 0 Functional goals with the current and future treatment: 1) To be able to complete activities of daily living - Achieving 2) To be able to be active with friends and family - Achieving 3) To be able to take care of her home - Achieving 4) To be able to complete home exercises - Achieving 5) To be able to work - NOT Achieving Follow up: For cervical epidural steroid injection one scheduled or in one month for medication refill reevaluation Ms. Bynum and I reviewed all of the above recommendations using anatomical models. The patient understands the risks, benefits, and indications of these options. The patient will think about her options. Emmanuelle may also discuss these recommendations with YUNIOR ALEX so that she can come to the best decision in terms of her treatment options. JAY STRAUSS DO I spent 15 of this 17 encounter in [id number] counseling patient I was the attending physician supervising the resident in the above care. For the purposes of billing, the resident provided the care. documented in this encounter Plan of Treatment Upcoming Encounters Date Type Specialty Care Team Description 08/06/2022 Office Visit Plastic Surgery Peña Woodward MD [facility] [place], [place] [address] (Flores ordonez) 08/19/2022 Office Visit Podiatry Tom Titus DPM [place], [place] [address] (Wo rk) 09/08/2022 Office Visit Internal Medicine Janay Hay MD [facility] INTERNAL MEDICINE [place], [place] [address] (Wo rk) 10/12/2059 Hospital Encounter Surgery Jim Hanley MD [facility] [place], [place] [address] (Wo rk) Scheduled Procedures Name [...] Diagnosis Comme nts DRUG SCREEN WITH Routine 10/10/2014 2:50 PM Cervical radicular Results for this CONFIRMATION, URINE EST pain procedure are in (SEND OUT) Encounter for the results long-term (current) section. use of other medications THC (MARIJUANA), Routine 10/10/2014 2:50 PM Resul ts for this URINE, CONFIRMATION EST procedur e are in the results section. BENZODIAZEPINE, URINE Routine 10/10/2014 2:50 PM Results for this CONFIRMATION EST procedure are i n the results section. documented in this encounter Results Benzodiazepine, Urine Quantitative (10/10/2014 2:50 PM EST) [facility] gist Method Time Signature U Benzo Conf CERNER Test ?Result ?? Flag ??Unit ?? RefValue MILLENNIUM Drug of Abuse, Benzo Conf, U ??GC/MS Confirmation - ?Positive ?Benzodiazepine ??Lorazepam ? Negative ? ng/mL ?? Cutoff: <100 ??Nordiazepam ? Negative ? ng/mL ??C utoff: <100 ??Oxazepam ?Negative ? ng/mL ? ?Cutoff: <100 ??Temazepam ? Negative ? ng/mL ?? Cutoff: <100 ??RO-Rwgit-Kxwxzvzdkc ? Negative ? ng/mL ??Cutof f: <100 ??5-IT-Ubansgdmfw ? Negative ? ng/mL ??Cut off: <100 ??9-NO-Nhpxnvgkxjyjh ?Negative ? ng/mL ??Cuto ff: <50 ??Alpha OH-Alprazolam ? 225 ?ng/mL ??Cu toff: <100 ??Xejnt-BU-Pmdfnbhsz ?Negative ? ng/mL ??Cuto ff: <100 ADDITIONAL INFORMATION This report is intended for use in clinical monitoring and management of patients. It is not intended for use in employment-related drug testing. Test Performed by: [facility] [address], [place], [place] [address] Obstetrician: Patricia Murphy, Ph.D. Specimen Anatomical Collection Method Collection Time Receive d Time (Source) Location / / Volume Laterality Urine specimen 10/10/2014 2:50 PM 014 3:11 (specimen) EST PM EST Resulting Agency Comment Spec In Lab David Armstrong MD URINE ORDERABLES Performing Organization Address City/State/[place] [address] CERNER MILLENNIUM THC (Marijuana), Urine Confirmation (10/10/2014 2:50 PM EST) [facility] Method Time Signature U THC Conf CERNER Test ?Result ?? Flag ??Unit ?? RefValue MILLENNIUM Drug of Abuse, THC Conf, U ??GC/MS Confirmation - ?Positive ?THC ??THC Carboxylic Acid ? 52 ? ng/mL ??Cu toff:<3 ADDITIONAL INFORMATION This report is intended for use in clinical monitoring and management of patients. It is not intended for use in employment-related drug testing. Test Performed by: [facility] [address], [place] [address] Obstetrician: Patricia Murphy, Ph.D. Specimen Anatomical Collection Method Collection Time Receive d Time (Source) Location / / Volume Laterality Urine specimen 10/10/2014 2:50 PM 014 3:11 (specimen) EST PM EST Resulting Agency Comment Spec In Lab David Armstrong MD URINE ORDERABLES Performing Organization Address City/State/[place] [address] CERNER MILLENNIUM Drug Screen with Confirmation, Urine (10/10/2014 2:50 PM EST) Component Value Ref Test Analysis Performed At [facility] Range Method Time Signature U KELY w/Conf [...] ?Negative ? ng/mL ? ?<100 ??Oxycodone ? 3850 ? ng/mL ??<100 ??Oxymorphone ? 992 ?ng/mL ??<100 ADDITIONAL INFORMATION This report is intended for use in clinical monitoring and management of patients. It is not intended for use in employment-related drug testing. Test Performed by: [employer] [facility] [address], [place] [address] Obstetrician: Patricia Murphy, Ph.D. Specimen Anatomical Collection Method Collection Time Receive d Time (Source) Location / / Volume Laterality Urine specimen 10/10/2014 2:50 PM 014 3:11 (specimen) EST PM EST Resulting Agency Comment Spec In Lab David Armstrong MD URINE ORDERABLES Performing Organization Address City/State/ZIP Code Phon e Number [place] [id number] [facility] documented in this encounter Visit Diagnoses Diagnosis Cervical radicular pain Brachial neuritis or radiculitis nos Encounter for long-term (current) use of other medications documented in this encounter Care Teams Sewing Trimmer Relationship Specialty Start Date End Date Ernestina Nowak PA PCP - General 09/03/10 04/05/15 [address] [place], [place] [id number] documented as of this encounter
--- OUTSIDE RECORDS SUMMARY | 2022-07-12 00:58 | XMS_ITS | Encounter Summary ---
:1965 Author Organization [facility] Address [address] [address] Care Team Providers Name Role Phone Ernestina Nowak Primary Care Provider Reason for Visit Reason Comments Left Arm Pain Encounter Details Date Type Department Care Team Description 08/07/2014 Procedure visit Pain Management at Loc Davis MD [address] [place] [id number] Cervical disc disorder [facility] Aracelis Davis MD [facility] [place] [address] with radiculopathy of [facility] cervicoth oracic region Drive (Primary Dx) [place] [id number] Social History Tobacco Use Types Packs/Day Years [...] Sign Reading Time Taken Comments Blood Pressure 129/98 08/07/2014 12:11 PM EDT Pulse 93 08/07/2014 12:11 PM EDT Temperature - - Respiratory Rate 16 08/07/2014 12:11 PM EDT Oxygen Saturation 97% 08/07/2014 12:11 PM EDT Inhaled Oxygen Concentration - - Weight 96.2 kg (212 lb) 08/07/2014 11:49 AM EDT Height 165.1 cm (5' 5) 08/07/2014 11:49 AM EDT Body Mass Index 35.28 08/07/2014 11:49 AM EDT documented in this encounter Patient Instructions Patient InstructionsMarita Barber RN - 08/07/2014 11:51 AM EDT Pain Management Center Discharge Instructions: You were seen by Dr. Aracelis Davis MD and Abdullahi Chiu DO who performed cervical epidural steroid injection. It [...] apply heat today. [x] You received Midazolam 1 mg through an intravenous line, to lessen [...] encounter Progress Notes Marita Barber RN - 08/07/2014 11:50 AM EDT Pre-Procedure Screening Questions: 1. Status: No 2. Patient states they have a helper/driver to transport after procedure? Yes 3. Patient [...] arm [ ] other: IV Gauge: [ ] 24G [ x ] 22G [ ] 20G After IV [...] (MAR) Site condition at IV removal: [ x ] Clear [ ] Bruised [ ] other: Administration of IV anxiolysis procedural medications documented in MAR as ordered by proceduralist documented in this encounter Procedure Notes Abdullahi Chiu, - 08/07/2014 12:22 PM EDTAssociated Order(s): EPIDURAL STEROID INJECTION Procedure(s): EPIDURAL STEROID INJECTION Pre-Procedure Diagnose(s): Cervical disc disorder with radiculopathy of cervicothoracic region PROCEDURE NOTE: Cervical Epidural Steroid Injection with Fluoroscopic Guidance C7-T1 Chief Complaint: neck pain with radiation to arm Emmanuelle Bynum has been referred to the Pain Management Center for cervical epidural steroid injection. Ms. Bynum was interviewed and the medical [...] (blood pressure cuff and pulse oximeter) were monitored; Cap, glove, mask were worn, and a time out was done. Using fluoroscopic guidance, the [...] view 1 cc's of Omnipaque 240 while visualized. There was no evidence of intravascular uptake, the epidural space was delineated. The patient then received Decadron (preservative free, non particulate) 10 mg diluted in preservative free normal saline to a total volume of 2 ml afternegative aspiration for blood or CSF. There was [...] discharge criteria to the care of a helper/driver. The patient received written instructions as documented in nursing records. COMMENTS: Patient received 1 mg midazolam for sedation. Repeat as needed if continues to receive symptomatic pain control. [facility] with [facility] Rdaha Manuel APRN or Dr Phillips [facility] Patient is awaiting medical optimization prior to surgery. Procedure performed today by resident/fellow under direct supervision of Aracelis Davis MD. ABDULLAHI CHIU DO 08/07/2014 Fellow, [facility] CC: YUNIOR ALEX @[email or web address]@ I was the attending physician supervising the fellow or resident in the above care and I was presentwith the resident for the entire procedure. ARACELIS DAVIS MD documented in this encounter Plan of Treatment Upcoming Encounters Date Type Specialty Care Team Description 08/06/2022 Office Visit Plastic Surgery Peña Woodward MD [facility] PLASTIC SURGERY [place], [place] [address] (Wo rk) 08/19/2022 Office Visit Podiatry Tom Titus DPM [place], [place] [address] (Wo rk) 09/08/2022 Office Visit Internal Medicine Janay Hay MD [facility] INTERNAL MEDICINE [place], [place] [address] (Wo rk) 10/12/2059 Hospital Encounter Surgery Jim Hanley MD [facility] SPINE CENTER [place], [place] [address] (Wo rk) Pending Results Name Type Priority Associated Diagnoses Date/Ti me XR Fluoro OR c-arm Imaging Routine 4 12:46 PM EDT storage only Scheduled Orders Name Type Priority Associated Diagnoses Order S chedule XR Fluoro OR c-arm Imaging Routine Once PRN (for Radiant storage only use) for 1 Occu rrences starting 2013 until 08/07/2014 Scheduled Procedures Name Priority Associated Diagnoses Date/Time [...] Associated Diagnosis Comme nts EPIDURAL STEROID Routine 08/07/2014 12:41 Cervical disc disord er Results for this INJECTION PM EDT with radiculopathy of proced ure are in cervicothoracic region the r esults section. documented in this encounter Results EPIDURAL STEROID INJECTION (08/07/2014 12:41 PM EDT) Narrative Aracelis Davis MD - 08/07/2014 12:41 PM EDT Aracelis Davis MD ? 08/07/2014 12:41 PM ?? PROCEDURE NOTE: Cervical Epidural Steroi d Injection with Fluoroscopic Guidance C7-T1 Chief Complaint: neck pain with radiatio n to arm Emmanuelle Bynum has been referred to the Pain Management Center for cervical epidural steroid inj ection. Ms. Bynum was interviewed and the [facility] reviewed. ?? There were no medical, pharmacologic, ra diographic or other structural contraindications to attempti ng fluoroscopically guided epidural steroid injection. ??Ris ks and expected side effects as well as potential benefit of the procedure were reviewed with Ms. Bynum, and her voice d concerns were addressed. ??The printed consent form wa s signed and witnessed. ?? Standard time-out procedure was performe d. Emmanuelle Bynum was greeted by the pepe rse who verified patients name and . ??Patient was then taken t o the fluoroscopy suite. Technique After informed written consent was obtai con, the patient was placed in the prone position. The cervic al spine was prepped with chloraprep and draped. ??Sterile techniq ue was used, ??vital signs (blood pressure cuff and pulse oximeter) were monitored; Cap, glove, mask were worn, and a time out wa s done. Using fluoroscopic guidance, the C7-T1 i [...] ??1 cc's of Om nipaque 240 while visualized. ??There was no evidence of i ntravascular uptake, the epidural space was delineated. ??The pat ient then received Decadron (preservative free, non particu late) ??10 mg diluted in preservative free normal saline to a tot al volume of 2 ml after negative aspiration for blood or CSF. ?? There was not any unusual discomfort expressed by Emmanuelle Dupont ll. If given, dosages of intravenous drugs for anxiolysis and jim lgesia were documented in DEC. Radiographs were archived in radiology. Outcome: The patient tolerated the proce dure well and had stable vital signs. ??Follow up plans and appoi ntments were discussed with Emmanuelle Bynum. The patient was observed in the pain clinic and then discharged after having met discharge criteria ?? to the care of a helper/driver. ??The patient r eceived written instructions as documented in nursing re cords. ?? COMMENTS: Patient received 1 mg midazola m for sedation. Repeat as needed if continues to receive symptomatic pain control. Follow-up with [facility], Radha Gonsalez on [employer]LE[employer] MAINTENANCE FOREMAN or Dr Phillips as outlined [facility] Patient is awaiting medical optimization prior to s urgery. Procedure performed today by resident/cory lino under direct supervision of Aracelis Davis MD. ABDULLAHI CHIU DO 08/07/2014 Fellow, [facility] CC: YUNIOR ALEX @[email or web address]@ I was the attending physician supervisin g the fellow or resident in the above care and I was present with the resident for the entire procedure. ARACELIS DAVIS MD Procedure Note Abdullahi Chiu, DO - 08/07/2014 12 :22 PM EDT PROCEDURE NOTE: Cervical Epidural Steroi d Injection with Fluoroscopic Guidance C7-T1 Chief Complaint: neck pain with radiatio n to arm Emmanuelle Bynum has been referred to the Pain Management Center for cervical epidural steroid injection. Ms. Bynum was interviewed and the [facility] record reviewed. There were no medical, pharmacologic, radiographic or other structural contraindications to attempting fluoroscopically guided epidural steroid injection. Risks and expected side effec ts as well as potential benefit of the procedure were reviewed with Ms. Bynum, and her voiced concerns were addressed. The printed consent form was signed and witnessed. Standard time-out procedure was performbaltazar d. Emmanuelle [...] (blood pressure cuff and pulse oximeter) were monitored; Cap, glove, ma sk were worn, and a time out was done. Using fluoroscopic guidance, the [...] 1 cc's of Omni paque 240 while visualized. There was no evidence of intravascular uptake, the epidural space was delineated. The patient then received Decadron (preservative free, non particulate) 10 mg diluted in preservati ve free normal saline to a total volume of 2 ml after negative aspiration for blood or [...] criteria to t he care of a helper/driver. The patient received written instructions as documented in nursing records. COMMENTS: Patient received 1 mg midazola m for sedation. Repeat as needed if continues to receive symptomatic pain control. Follow-up with [facility], Radha Gonsalez on FLEET MAINTENANCE FOREMAN or Dr Phillips as outlined in clinical follow up from earlier today. Patient is awaiting medical optimization prior to surgery. Procedure performed today by resident/cory lino under direct supervision of Aracelis Davis MD. ABDULLAHI CHIU, 08/07/2014 Fellow, [facility] Center CC: YUNIOR ALEX @[email or web address]@ I was the attending physician supervisin g the fellow or resident in the above care and I was present with the resident for the entire procedure. ARACELIS DAVIS MD Aracelis Davis MD NEUROLOGY ORDERABLES documented in this encounter Visit Diagnoses Diagnosis Cervical disc disorder with radiculopath y of cervicothoracic region - Primary Brachial neuritis or radiculitis nos documented in this encounter Administered Medications Inactive Administered Medications - up to 3 most recent administrations Medication Order MAR Action Action Date Dose Rate Site dexamethasone sodium (PF) Given 08/07/2014 12:45 PM EDT 10 mg injection 10 mg 10 mg, Epidural, ONCE, 1 dose, On Thu08/07/14 at 1245, Routine iohexol (OMNIPAQUE) injection 1 mL Given 08/07/2014 12:45 PM EDT 1 mL 1 mL, Epidural, ONCE, 1 dose, On Thu08/07/14 at 1245, Wasted 49 ml, Routine lactated ringers infusion 100 mL New Bag 08/07/2014 12:45 PM EDT 100 mLs 100 mL, Intravenous, ONCE, 1 dose, On Thu08/07/14 at 1245 midazolam (PF) (VERSED) 1 mg/mL injectio n 1 mg Given 08/07/2014 12:45 PM EDT 1 mg 1 mg, Intravenous, ONCE, 1 dose, On Thu08/07/14 at 1245, Routine documented in this encounter Care Teams Hot Wire Glass Tube Cutter Relationship Specialty Start Date End Date Ernestina Nowak PA PCP - General 09/03/10 04/05/15 [address] [place] [address] documented as of this encounter
--- OUTSIDE RECORDS SUMMARY | 2022-07-12 00:58 | XMS_ITS | Encounter Summary ---
:1965 Author Organization [facility] [place] [address] Care Team Providers Name Role Phone Ernestina Nowak Primary Care Provider Encounter Details Date Type Department Care Team Description 07/03/2014 Office Visit Neurology at [facility] [place] Charlie Flor APRN [facility] [place] [address] Neck pain (Primary Dx) [facility] Neto Lew MD [facility] [place] [address] Nick FaulknerSammi Ross, [facility] [place] [address] [place] [address] Social History Tobacco Use Types Packs/Day Years [...] Sign Reading Time Taken Comments Blood Pressure 141/90 07/03/2014 1:41 PM EDT Pulse 89 07/03/2014 1:41 PM EDT Temperature - - Respiratory Rate - - Oxygen Saturation - - Inhaled Oxygen Concentration - - Weight 97.5 kg (215 lb) 07/03/2014 1:41 PM EDT Height 165.1 cm (5' 5) 07/03/2014 1:41 PM EDT Body Mass Index 35.78 07/03/2014 1:41 PM EDT documented in this encounter Progress Notes Dougie Gallagher MD - 07/03/2014 12:51 PM EDT Emmanuelle Bynum referred for EDX studies by Radha Manuel APRN [facility] [place] [address] to look for evidence of cervical radiculopathy. Report scanned into EDH. I was directly involved in these EDX studies and their interpretation. I agree with the above note as written by the fellow. documented in this encounter Plan of Treatment Upcoming Encounters Date Type Specialty Care Team Description 08/06/2022 Office Visit Plastic Surgery Peña Woodward MD [facility] PLASTIC SURGERY [place], [place] [address] (Wo rk) 08/19/2022 Office Visit Podiatry Tom Titus DPM [place], [place] [address] (Wo rk) 09/08/2022 Office Visit Internal Medicine Janay Hay MD [facility] GENERAL INTERNAL MEDICINE [place], [place] [address] (Wo rk) 10/12/2059 Hospital Encounter Surgery Jim Hanley MD [facility] SPINE CENTER [place], [place] [address] (Wo rk) Scheduled Procedures [...] as of this encounter Visit Diagnoses Diagnosis Neck pain - Primary Cervicalgia documented in this encounter Care Teams Material Stockkeeper Yard Relationship Specialty Start Date End Date Ernestina Nowak PA PCP - General 09/03/10 04/05/15 [address] [place] [address] documented as of this encounter
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
--- OUTSIDE RECORDS SUMMARY | 2022-07-12 00:58 | XMS_ITS | Encounter Summary ---
:1965 Author Organization [facility] [place] [address] Care Team Providers Name Role Phone Ernestina Nowak Primary Care Provider Encounter Details Date Type Department Care Team Description 10/17/2014 Refill [facility] [place] [address] Social History Tobacco Use Types Packs/Day [...] Telephone Encounter - Alina Allen LPN - 10/17/2014 11:10 AM EST Pt left message on nurse voice mail with questions about a medication. Attempted to return pts call,no answer. Left message, awaiting return call. documented in this encounter Plan of Treatment Upcoming Encounters Date Type Specialty Care Team Description 08/06/2022 Office Visit Plastic Surgery Peña Woodward MD [facility] PLASTIC SURGERY [place] [address] (Flores ordonez) 08/19/2022 Office Visit Podiatry Tom Titus DPM [place] [address] (Flores ordonez) 09/08/2022 Office Visit Internal Medicine Janay Hay MD [facility] GENERAL INTERNAL MEDICINE [place], [place] [address] (Wo josé luis) 10/12/2059 Hospital Encounter Surgery Jim Hanley MD [facility] SPINE CENTER [place] [address] (Flores ordonez) Scheduled Procedures Name Priority Associated [...] on filedocumented in this encounter Care Teams Vocal Teacher Relationship Specialty Start Date End Date Ernestina Nowak PA PCP - General 09/03/10 04/05/15 [address] [place] [address] documented as of this encounter
--- OUTSIDE RECORDS SUMMARY | 2022-07-12 00:58 | XMS_ITS | Encounter Summary ---
:1965 Author Organization [facility] Address [facility] [place] [address] Care Team Providers Name Role Phone Ernestina Nowak Primary Care Provider Encounter Details Date Type Department Care Team Description 07/04/2014 External Results Neurology at [facility] Neto Lew [place] [facility] [address] NEUROLOGY DEPT. [phone] [place], [place] [address] (Wo rk) Social History Tobacco [...] MD [facility] PLASTIC SURGERY [place] [address] (Wo rk) 08/19/2022 Office Visit Podiatry Tom Titus DPM [place], [place] [address] (Wo rk) 09/08/2022 Office Visit Internal Medicine Janay Hay MD [facility] GENERAL INTERNAL MEDICINE [place], [place] [address] (Wo rk) 10/12/2059 Hospital Encounter Surgery Jim Hanley MD [facility] SPINE CENTER [place], [place] [address] (Wo rk) Scheduled Procedures Name [...] Name Priority Date/Time Associated Diagnosis Comme nts EMG SCAN Routine 07/03/2014 documented in this encounter Results Scan Doc: EMG (07/03/2014) Narrative This result has an attachment that is no t available. Neto Lew MD MEDIA MGR SCAN EXT ORDR/RSLT documented in this encounter Visit Diagnoses Not on filedocumented in this encounter Care Teams Manager Of Loss Prevention Operations Relationship Specialty Start Date End Date Ernestina Nowak PA PCP - General 09/03/10 04/05/15 [address] [place] [address] documented as of this encounter
--- OUTSIDE RECORDS SUMMARY | 2022-07-12 00:58 | XMS_ITS | Encounter Summary ---
:1965 Author Organization [facility] [address] Care Team Providers Name Role Phone Ernestina Nowak Primary Care Provider Encounter Details Date Type Department Care Team Description 07/17/2014 Hospital Encounter Non-Invasive Cardiology Lab CLINIC, DR [facility] Kevin [place]añ[place] [address] Social History Tobacco Use Types Packs/Day [...] Sig Dispensed Refills Start Date End Date naratriptan (AMERGE) Take 1 tablet by mouth [...] hours. DropperetteIndication s: MGD (meibomian gland dysfunction) naratriptan (AMERGE) Take 1 tablet by mouth 12 tablet 1 07/18/2014 2.5 mg 2 times daily as TabletIndications: needed for Migraine. Chronic migraine, Vertigo methocarbamol Take 2 tablets by 50 tablet 3 05/23/201402/2015 (ROBAXIN-750) 750 mg mouth 3 times daily [...] times daily. For Hirsutism excessive facial hair Betamethasone-Calcipo apply topically to 60 g 2 201310/03/2014 triene (TACLONEX scalp 2-3 times at [facility]) 0.005-0.064 % night for maintenance SuspIndications: of psoriasis Psoriasis OXYcodone-acetaminoph Take 1 tablet by mouth 0 09/06/2014 en (PERCOCET) 7.5-325 4 times daily. mg per tablet INSULIN DETEMIR Inject 74 Units 0 08/12 [...] Peña Woodward MD [facility] PLASTIC SURGERY [place], [place] [address] (Wo rk) 08/19/2022 Office Visit Podiatry Tom Titus DPM [facility] [address] [place], [place] [address] (Wo rk) 09/08/2022 Office Visit Internal Medicine Janay Hay MD [facility] GENERAL INTERNAL MEDICINE [place], [place] [address] (Wo rk) 10/12/2059 Hospital Encounter Surgery Jim Hanley MD [facility] SPINE CENTER [place], [place] [address] (Wo rk) Scheduled Procedures Name [...] on filedocumented in this encounter Care Teams Engineer Internship Relationship Specialty Start Date End Date Ernestina Nowak PA PCP - General 09/03/10 04/05/15 [address] [place] [address] documented as of this encounter
--- OUTSIDE RECORDS SUMMARY | 2022-07-12 00:58 | XMS_ITS | Encounter Summary ---
:1965 Author Organization [facility] [place] [address] Care Team Providers Name Role Phone Ernestina Nowak Primary Care Provider Encounter Details Date Type Department Care Team Description 07/06/2014 Telephone Pain Management at Alina Zavaleta, [place] [address] Social History Tobacco Use Types Packs/Day [...] Telephone Encounter - Alina Allen LPN - 07/06/2014 12:40 PM EDT Fluoroscopy Procedure Request Procedure Requested: cervical epidural steroid injection Date(s) of Last Procedure: 05/08/14 Did requested procedure relieve pain? _x__ Yes - For how long 2 months? 85 % of relief received from previous injection. Have you had any steroid injections anywhere in your body within the last two weeks? no Patient taking anticoagulants? _x__ No Patient has pacemaker/defibrillator: No Changes in usual pain pattern or pertinent recent trauma or surgery? __x_ No, patient transferred or will be contacted by debug technician to make appointment for requested procedure. Patient's questions regarding requested procedure were answered and patient verbalized understanding. Patient knows how to contact the Pain Management Center and understands that they may do so at any time should they have further questions or concerns. Alina Allen LPN documented in this encounter Plan of Treatment Upcoming Encounters Date Type Specialty Care Team Description 08/06/2022 Office Visit Plastic Surgery Peña Woodward MD [facility] PLASTIC SURGERY [place], [place] [address] (Flores ordonez) 08/19/2022 Office Visit Podiatry Tom Titus DPM [place], [place] [address] (Flores ordonez) 09/08/2022 Office Visit Internal Medicine Janay Hay MD [facility] GENERAL INTERNAL MEDICINE [place], [place] [address] (Wo rk) 10/12/2059 Hospital Encounter Surgery Jim Hanley MD [facility] SPINE CENTER [place], [place] [address] (Wo rk) Scheduled Procedures Name [...] on filedocumented in this encounter Care Teams Inhalation Therapy Teacher Relationship Specialty Start Date End Date Ernestina Nowak PA PCP - General 09/03/10 04/05/15 [address] [place] [address] documented as of this encounter
--- OUTSIDE RECORDS SUMMARY | 2022-07-12 00:58 | XMS_ITS | Encounter Summary ---
:1965 Author Organization [facility] Address [address] [place] [address] Care Team Providers Name Role Phone Ernestina Nowak Primary Care Provider Encounter Details Date Type Department Care Team Description 10/19/2014 Notes Only Pain Management at L Jason Pierson MD [facility] [place] [place] [address] PAIN CLINIC [phone] [place] [id number] (Wo rk) Social History Tobacco Use Types [...] Progress Notes Jason Mcknight MD - 10/19/2014 10:46 PM EST Urine toxicology results are inconsistent with medication prescribed and show the presence of non-prescribed hydrocodone. This will need to be addressed with the patient at the next visit. THC levels are decreased from previous UDS, indicating that the patient may have discontinued use of marijuana ashad been discussed with her. JASON MCKNIGHT MD documented in this encounter Plan of Treatment Upcoming Encounters Date Type Specialty Care Team Description 08/06/2022 Office Visit Plastic Surgery Peña Woodward MD [facility] PLASTIC SURGERY [place] [address] (Flores ordonez) 08/19/2022 Office Visit Podiatry Tom Titus DPM [place], [place] 1 (Flores ordonez) 09/08/2022 Office Visit Internal Medicine Janay Hay MD [facility] GENERAL INTERNAL MEDICINE [place], [place] [address] (Flores ordonez) 10/12/2059 Hospital Encounter Surgery Jim Hanley MD [facility] SPINE CENTER [place], [place] [address] (Wo rk) Scheduled Procedures Name [...] on filedocumented in this encounter Care Teams Metalizing Machine Operator Relationship Specialty Start Date End Date Ernestina Nowak PA PCP - General 09/03/10 04/05/15 [address] [place] [address] documented as of this encounter
--- OUTSIDE RECORDS SUMMARY | 2022-07-12 00:58 | XMS_ITS | Encounter Summary ---
:1965 Author Organization [facility] Address [place] [id number] Care Team Providers Name Role Phone Ernestina Nowak Primary Care Provider Encounter Details Date Type Department Care Team Description 08/07/2014 Follow-Up Spine Center at Radha Manuel Cervica l radicular pain [place] NUCLEAR EQUIPMENT OPERATOR (Primary Dx) [place] [address] PAIN MEDICINE [phone] [place] [address] (Wo rk) Social History Tobacco Use Types [...] as of this encounter Progress Notes Radha Manuel APRN - 08/07/2014 10:52 AM EDT Chief Complaint: Neck pain Subjective: Emmanuelle is here to followup after consultation with Dr. Marie for neck pain and rightarm pain in the C7 distribution. She saw Dr. Phillips who do did feel that she could benefit from surgery but would want her to have a new MRI and also she would need to quit smoking. She was contemplating quitting smoking anyway and so she is going to do that. Objective: I did not repeat her examination which was last done on July 17. Her last MRI was dated May 08 and does show foraminal narrowing at C5-6 and right-sided narrowing at C7-T1. 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 Plan: She is going to see Dr. Buchanan for an injection this afternoon. She will followup with me through the [facility] system or by telephone. She is going to quit smoking and when she's done that she will let me know I will order her new MRI and repeat consultation with Dr. Phillips. All questions were answered documented in this encounter Plan of Treatment Upcoming Encounters Date Type Specialty Care Team Description 08/06/2022 Office Visit Plastic Surgery Peña Woodward MD [facility] DR PLASTIC SURGERY [place], [place] [address] (Wo rk) 08/19/2022 Office Visit Podiatry Tom Titus DPM [place], [place] [address] (Wo rk) 09/08/2022 Office Visit Internal Medicine Janay Hay MD [facility] GENERAL INTERNAL MEDICINE [place], [place] [address] (Wo rk) 10/12/2059 Hospital Encounter Surgery Jim Hanley MD [facility] SPINE CENTER [place], [place] [address] (Wo rk) Scheduled Procedures [...] nos documented in this encounter Care Teams Journeyman Molder Relationship Specialty Start Date End Date Ernestina Nowak PA PCP - General 09/03/10 04/05/15 [address] [place] [address] documented as of this encounter
--- OUTSIDE RECORDS SUMMARY | 2022-07-12 00:58 | XMS_ITS | Encounter Summary ---
:1965 Author Organization [facility] [place] [address] Care Team Providers Name Role Phone Ernestina oNwak Primary Care Provider Encounter Details Date Type Department Care Team Description 08/04/2014 Telephone Pain Management at Alina Zavaleta, [place] [address] Social History Tobacco Use Types Packs/Day [...] Telephone Encounter - Alina Allen LPN - 08/04/2014 9:15 AM EDT Attempted to contact pt regarding upcoming procedure. No answer & no available voicemail. documented in this encounter Plan of Treatment Upcoming Encounters Date Type Specialty Care Team Description 08/06/2022 Office Visit Plastic Surgery Peña Woodward MD [facility] PLASTIC SURGERY [place] [address] (Wo josé luis) 08/19/2022 Office Visit Podiatry Tom Titus DPM [place], [place] [address] (Wo rk) 09/08/2022 Office Visit Internal Medicine Janay Hay MD [facility] GENERAL INTERNAL MEDICINE [place], [place] [address] (Wo rk) 10/12/2059 Hospital Encounter Surgery Jim Hanley MD [facility] SPINE CENTER [place], [place] [address] (Wo rk) Scheduled Procedures Name [...] on filedocumented in this encounter Care Teams Chamber Worker Relationship Specialty Start Date End Date Ernestina Nowak PA PCP - General 09/03/10 04/05/15 [address] [place] [address] documented as of this encounter
--- OUTSIDE RECORDS SUMMARY | 2022-07-12 00:58 | XMS_ITS | Encounter Summary ---
:1965 Author Organization [place] [address] Care Team Providers Name Role Phone Ernestina Nowak Primary Care Provider Reason for Visit Reason Comments Other Encounter Details Date Type Department Care Team Description 07/18/2014 Telephone Neurology at [facility] David Mota, [facility] Kevin castañ[place] [address] [facility] [phone] NEUROLOGY DEPT. [place] [id number] Social History Tobacco Use Types Packs/Day Years [...] this encounter Miscellaneous Notes Telephone Encounter - Jenny Singh LPN - 07/18/2014 4:12 PM EDT EKG results, office visit notes (07/18/14) faxed to Dr. Ernestina Nowak @[phone]. Telephone Encounter - Jenny Singh LPN - 07/18/2014 4:02 PM EDT Message copied by JENNY SINGH on ThuJul 18, 2014 4:02 PM ------ Message from: DAVID MOTA Created: ThuJul 18, 2014 8:35 AM Can you please fax EKG results to her PCP. documented in this encounter Plan of Treatment Upcoming Encounters Date Type Specialty Care Team Description 08/06/2022 Office Visit Plastic Surgery Pñea Woodward MD [facility] PLASTIC SURGERY [place], [place] [address] (Wo rk) 08/19/2022 Office Visit Podiatry Tom Titus DPM [place], [place] [address] (Wo rk) 09/08/2022 Office Visit Internal Medicine Janay Hay MD [facility] GENERAL INTERNAL MEDICINE [place], [place] [address] (Wo rk) 10/12/2059 Hospital Encounter Surgery Jim Hanley MD [facility] SPINE CENTER [place], [place] [address] (Wo rk) Scheduled Procedures Name [...] on filedocumented in this encounter Care Teams Customer Professional Relationship Specialty Start Date End Date Ernestina Nowak PA PCP - General 09/03/10 04/05/15 [address] [place] [address] documented as of this encounter
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
--- OUTSIDE RECORDS SUMMARY | 2022-07-12 00:58 | XMS_ITS | Encounter Summary ---
:1965 Author Organization [facility] [place] [address] Care Team Providers Name Role Phone Ernestina Nowak Primary Care Provider Reason for Visit Reason Onset Date Comments Other 05/08/2014 Other Encounter Details Date Type Department Care Team Description 05/08/2014 Telephone Neurology at [facility] Charlie Flor, Chantal (Other) [facility] Kevin castañ[place] [address] [facility] [phone] NEUROLOGY DEPT. [place], [place] [address] Social History Tobacco Use Types [...] this encounter Miscellaneous Notes Telephone Encounter - Charlie Flor APRN - 05/10/2014 9:47 AM EDT Personally spoke to Emmanuelle and informed negative for Chiari on cervical MRI. Telephone Encounter - Aracely Cavazos - 05/08/2014 12:05 PM EDT Patient called in today stating that her MRI for today was cancelled and should not have been. Patient states she spoke with Charlie and Charlie said that 05/08 MRI was fine and the patient didn't need to go to [facility] for the MRI. Patient is upset because she was not notified that MRI was cancelled and drove 2 hours to get here. Patient states MRI is trying to get her in today anyway. Patient would like for Charlie to call her back. documented in this encounter Plan of Treatment Upcoming Encounters Date Type Specialty Care Team Description 08/06/2022 Office Visit Plastic Surgery Peña Woodward MD [facility] PLASTIC SURGERY [place] [address] (Wo rk) 08/19/2022 Office Visit Podiatry Tom Titus DPM [place], [place] [address] ( rk) 09/08/2022 Office Visit Internal Medicine Janay Hay MD [facility] GENERAL INTERNAL MEDICINE [place], [place] [address] ([facility]) 10/12/2059 Hospital Encounter Surgery Jim Hanley MD [facility] SPINE CENTER [place], [place] [address] ([facility]) Scheduled Procedures Name Priority Associated Diagnoses [...] on filedocumented in this encounter Care Teams Mobile Paint Specialist Relationship Specialty Start Date End Date Ernestina Nowak PA PCP - General 09/03/10 04/05/15 [address] [place] [address] documented as of this encounter
--- OUTSIDE RECORDS SUMMARY | 2022-07-12 00:58 | XMS_ITS | Encounter Summary ---
:1965 Author Organization [facility] Address [address] [place] [address] Care Team Providers Name Role Phone Ernestina Nowak Primary Care Provider Encounter Details Date Type Department Care Team Description 09/12/2014 Orders Only Pain Management at Jason Pierson MD [facility] [place] [address] [facility] [phone] [place] [address] (Wo rk) Social History Tobacco Use Types [...] encounter Progress Notes Jason Mcknight MD - 09/12/2014 2:04 PM EST The patient had a UDS that was consistent with medication prescribed (benzodiazepine). She did not have oxycodone in her urine, but had not had any for several days. She noted at her visit that she hadused marijuana. She does not use it regularly and understands that she cannot continue to use marijuana if I prescribe for her. Based on the above, I will prescribe for the patient. oxycontin 30 BID percocet 7.5 TID JASON MCKNIGHT MD Orders Placed This Encounter Medications ??? oxyCODONE (OXYCONTIN) 30 mg Tablet Sustained Release 12 hr Sig: Take 1 tablet by mouth every 12 hours. Dispense: 60 tablet Refill: 0 ??? OXYcodone-acetaminophen (PERCOCET) 7.5-325 mg Tablet Sig: Take 1 tablet by mouth every 8 hours as needed for Pain. Dispense: 90 tablet Refill: 0 documented in this encounter Plan of Treatment Upcoming Encounters Date Type Specialty Care Team Description 08/06/2022 Office Visit Plastic Surgery Peña Woodward MD [facility] PLASTIC SURGERY [place], [place] [address] (Wo rk) 08/19/2022 Office Visit Podiatry Tom Titus DPM [facility] DRIVE [place], [place] [address] (Wo rk) 09/08/2022 Office Visit Internal Medicine Janay Hay MD [facility] GENERAL INTERNAL MEDICINE [place], [place] [address] (Wo rk) 10/12/2059 Hospital Encounter Surgery Jim Hanley MD [facility] SPINE CENTER [place], [place] [address] (Wo rk) Scheduled Procedures Name [...] on filedocumented in this encounter Care Teams Seasoning Sprayer Relationship Specialty Start Date End Date Ernestina Nowak PA PCP - General 09/03/10 04/05/15 [address] [place] [address] documented as of this encounter
--- OUTSIDE RECORDS SUMMARY | 2022-07-12 00:58 | XMS_ITS | Encounter Summary ---
:1965 Author Organization [facility] Address [address] [place] [address] Care Team Providers Name Role Phone Ernestina Nowak Primary Care Provider Reason for Visit Reason Comments Medication Refill Encounter Details Date Type Department Care Team Description 04/30/2014 Refill Neurology at [facility] Josue Fuentes [place] [facility] [place] [address] NEUROLOGY DEPT. [phone] [place], [place] [address] (Wo rk) Social History Tobacco [...] MD [facility] PLASTIC SURGERY [place] [address] (Wo rk) 08/19/2022 Office Visit Podiatry Tom Titus DPM [place], [place] [address] (Wo rk) 09/08/2022 Office Visit Internal Medicine Janay Hay MD [facility] GENERAL INTERNAL MEDICINE [place] [id number] (Wo rk) 10/12/2059 Hospital Encounter Surgery Jim Hanley MD [facility] SPINE CENTER [place], [place] [address] (Wo rk) Scheduled Procedures Name [...] on filedocumented in this encounter Care Teams Retail Sales Associate Relationship Specialty Start Date End Date Ernestina Nowak PA PCP - General 09/03/10 04/05/15 [address] [place] [address] documented as of this encounter
--- OUTSIDE RECORDS SUMMARY | 2022-07-12 00:58 | XMS_ITS | Encounter Summary ---
:1965 Author Organization [facility] Address [facility] [place] [address] Care Team Providers Name Role Phone Ernestina Nowak Primary Care Provider Reason for Visit Reason Comments Diabetes Type 2 diabetes mellitus1 yr f/u Encounter Details Date Type Department Care Team Description 07/17/2014 Follow-Up Ophthalmology [facility] Payal Erwin Type 2 diabetes mellitus; [facility] D garry J, OD Dry eyes, bilateral; [place] [address] [facility] Myopia with astigmatism and presbyopia, bilateral; [phone] DR MUHAMMAD (meibomian gland dysfunction) OPHTHALMOLOGY DEPT. [place], [place] [address] Social History Tobacco Use Types [...] encounter Progress Notes Payal Erwin, OD - 07/17/2014 3:52 PM EDT Emmanuelle Bynum is a 48 y.o. female who had a chief complaint of Diabetes. No diabetic retinopathy. Dry eyes doing OK on current regimen. Assessment: Encounter Diagnoses Name Primary? Type 2 diabetes mellitus ??? Dry eyes, bilateral ??? Myopia with astigmatism and presbyopia, bilateral ??? MGD (meibomian gland dysfunction) Plan: 1)Refractive Error - MRx given to patient. 2)DM - pt ed re: importance of good bs control and yearly eye exam 3)continue with Restasis bid, AT gloria prn, fish oil, BS scrubs and compresses daily Follow up: CEE 1 year. Eyeglass Final Rx Sphere Cylinder [place]le Add Right -1.00 +0.25 120 +1.75 Left -1.25 +0.50 045 +1.75 Expiration Date: 07/17/2016 Eyeglass Final Rx #2 Sphere Cylinder [place] Add Right -1.00 +0.25 120 Left -1.25 +0.50 045 Type: distance Expiration Date: 07/17/2016 Eyeglass Final Rx #3 Sphere Cylinder [place] Add Right +0.75 +0.25 120 Left +0.50 +0.50 045 Type: reading Expiration Date: 07/17/2016 documented in this encounter Plan of Treatment Upcoming Encounters Date Type Specialty Care Team Description 08/06/2022 Office Visit Plastic Surgery Peña Woodward MD [facility] PLASTIC SURGERY [place], [place] [address] (Wo rk) 08/19/2022 Office Visit Podiatry Tom Titus DPM [place], [place] [address] (Wo rk) 09/08/2022 Office Visit Internal Medicine Janay Hay MD [facility] GENERAL INTERNAL MEDICINE [place], [place] [address] (Wo rk) 10/12/2059 Hospital Encounter Surgery Jim Hanley MD [facility] SPINE CENTER [place], [place] [address] (Wo rk) Scheduled Procedures Name [...] Visit Diagnoses Diagnosis Type 2 diabetes mellitus Type II or unspecified type diabetes álvaro litus without mention of complication, not stated as uncontrolled Dry eyes, bilateral Tear film insufficiency, unspecified Myopia with astigmatism and presbyopia, bilateral MGD (meibomian gland dysfunction) Other disorders of eyelid documented in this encounter Care Teams Furnace Door Tender Relationship Specialty Start Date End Date Ernestina Nowak PA PCP - General 09/03/10 04/05/15 [address] [place] [address] documented as of this encounter
--- OUTSIDE RECORDS SUMMARY | 2022-07-12 00:59 | XMS_ITS | Encounter Summary ---
:1965 Author Organization [facility] Address [facility] [place] [address] Care Team Providers Name Role Phone Ernestina Nowak Primary Care Provider Encounter Details Date Type Department Care Team Description 07/12/2013 Office Visit Neurology at [facility] Josue Fuentes MD Chronic migraine [facility] wit hout aura ([address] Drive DR Buzz) [place], [place] NEUROLOGY DEPT. [address] [place] [address] [phone] Social History Tobacco Use Types Packs/Day Years [...] Sign Reading Time Taken Comments Blood Pressure 117/74 07/12/2013 12:42 PM EDT Pulse 93 07/12/2013 12:42 PM EDT Temperature - - Respiratory Rate - - Oxygen Saturation - - Inhaled Oxygen Concentration - - Weight 101.6 kg (224 lb) 07/12/2013 12:42 PM EDT Height 165.1 cm (5' 5) 07/12/2013 12:42 PM EDT Body Mass Index 37.28 07/12/2013 12:42 PM EDT documented in this encounter Progress Notes Josue Fuentes MD - 07/12/2013 1:09 PM EDT Emmanuelle feels that Botox had reduced the frequency of her severe HAs from nearly daily to 3-4 per mo (although she admits to using Vicodin 10 days per month).Unfortunately she missed her last Botox visit and as a result, HAs are much more troublesome lately. Her cervical disc disease and TMD are exacerbating HAs she thinks. Her rescue med for any of her pain is now Naproxen sodium and Robaxin; next she uses Sumavel or Vicodin - now using 30/mo. She now on Abilify and Prozac as her antidepressants. Neck pain seems to relate to cervical disc and osteopphytic disease. Dr Yoon did not recommend surgery. Cervical epidural steroid injections have helped, in [facility] Med Clinic here. She is also having lumbar pain and lumbar epidurals are being considered. She underwent some testing for leukemia since WBCs have remained elevated and she was also being evaluated for thyroid cancer - all w/u was negative. Both w/u's were negative. She is still smoking, but less. Nerve blocks I did in May made a huge difference in terms of both headache and neck pain. Her brother was diagnosed via PET with some cerebral dysfunction as explanation for memory and behavior changes. Emmanuelle feels she should have this done. 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 SHOEMAKER pain is right or left retro-orbital (used to be primarily R, now mostly L). They are completely debilitating. Triggers are street lights or oncoming car lights. The best diagn osis has been chronic migraine. She has struggled with a tendency to overuse opioids. Diagnostic work-up - MRI of the head approx 2 years ago was nl. PMH/Problem List 1. Recurrent kidney infections followed by urologist Dr. Hernandez in [place]. 2. GERD 3. Asthma (uses inhaler only when she is ill) 4. Hysterectomy for uterine fibroids 5. Two C-sections 6. Chronic depression - doing well under the care of Psych 7. Cervical arthritis and L shoulder problems for which she is using and Lumbar spine disease 8. 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 Probable SEB - sleep study to be done 10. 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 Head and neck exam revealed quite a bit of posterior cervical muscle spasm. There was no spinal deformity or tenderness. There were no carotid bruits. Paranasal sinuses were non-tender. TMJ regions were benign. Submandibular regions were normal. Neurological exam was entirely normal including mental status, cranial nerves, motor tone and strength, reflexes, sensation, coordination, and gait. Impression: Migraine without aura Depression, anxiety Possible tendency for overuse of opioids Obesity Plan: Naproxen, methocarbamol, Sumavel and/or Vicodin for tx of acute migraine; Botox All of her pain medications are now [...] units divided between 2 sites in the fish and game club manager muscles, 5 units into 1 site in [...] tolerated the procedure without any immediate complications. F/u was arranged for 3 mo. documented in this encounter Plan of Treatment Upcoming Encounters Date Type Specialty Care Team Description 08/06/2022 Office Visit Plastic Surgery Peña Woodward MD [facility] PLASTIC SURGERY [place], [place] [address] (Wo rk) 08/19/2022 Office Visit Podiatry Tom Titus DPM [place], [place] [address] (Wo rk) 09/08/2022 Office Visit Internal Medicine Janay Hay MD [facility] GENERAL INTERNAL MEDICINE [place], [place] [address] (Wo rk) 10/12/2059 Hospital Encounter Surgery Jim Hanley MD [facility] SPINE CENTER [place], [place] [address] (Wo rk) Scheduled Procedures Name Priority Associated [...] Visit Diagnoses Diagnosis Chronic migraine without aura - Primary Chronic migraine without aura, without m ention of intractable migraine without mention of status migrainosus documented in this encounter Administered Medications Inactive Administered Medications - up to 3 most recent administrations Medication Order MAR Action Action Date Dose Rate Site botulinum toxin type A (BOTOX) Given 07/12/2013 1:34 PM EDT 155 Units injection 155 Units 155 Units, Intramuscular, ONCE, 1 dose, On Thu07/12/13 at 1400, Routine documented in this encounter Care Teams Turbine Engineer Relationship Specialty Start Date End Date Ernestina Nowak PA PCP - General 09/03/10 04/05/15 [address] [place] [address] documented as of this encounter
--- OUTSIDE RECORDS SUMMARY | 2022-07-12 00:59 | XMS_ITS | Encounter Summary ---
:1965 Author Organization [facility] [place] [address] Care Team Providers Name Role Phone Ernestina Nowak Primary Care Provider Encounter Details Date Type Department Care Team Description 04/12/2014 Telephone Pain Management at [facility], [place] [address] Social History Tobacco Use Types Packs/Day [...] encounter Miscellaneous Notes Telephone Encounter - Mehreen Ramirez RN - 04/13/2014 12:30 PM EDT Fluoroscopy Procedure Request Procedure Requested: cervical medial branch block -THERAPEUTIC Date(s) of Last Procedure: 06/23/2014 Did requested procedure relieve pain? __x Yes - For how long 4-5 months with 90 % of relief received from previous injection. ___ No Have you had any steroid injections anywhere in your body within the last two weeks? no Patient taking anticoagulants? _x__ No ___ Yes Patient has pacemaker/defibrillator: No Changes in usual pain pattern or pertinent recent trauma or surgery? __X_ No, patient transferred or will be contacted by imaging scheduler to make appointment for requested procedure. ___ Yes, patient referred for re-evaluation by referring provider. Patient's questions regarding requested procedure were answered and patient verbalized understanding. Patient knows how to contact the Pain Management Center and understands that they may do so at any time should they have further questions or concerns. Mehreen Ramirez RN Telephone Encounter - Alina Allen LPN - 04/12/2014 10:13 AM EDT Pt called to request repeat ANGELINA. Attempted to return pts call, no answer & no available voicemail. documented in this encounter Plan of Treatment Upcoming Encounters Date Type Specialty Care Team Description 08/06/2022 Office Visit Plastic Surgery Peña Woodward MD [facility] PLASTIC SURGERY [place], [place] [address] (Wo rk) 08/19/2022 Office Visit Podiatry Tom Titus DPM [facility] DRIVE [place], [place] [address] (Wo rk) 09/08/2022 Office Visit Internal Medicine Janay Hay MD [facility] GENERAL INTERNAL MEDICINE [place], [place] [address] (Wo rk) 10/12/2059 Hospital Encounter Surgery Jim Hanley MD [facility] SPINE CENTER [place], [place] [address] (Wo rk) Scheduled Procedures Name [...] on filedocumented in this encounter Care Teams Regional Account Director Relationship Specialty Start Date End Date Ernestina Nowak PA PCP - General 09/03/10 04/05/15 [address] [place] [address] documented as of this encounter
--- OUTSIDE RECORDS SUMMARY | 2022-07-12 00:59 | XMS_ITS | Encounter Summary ---
:1965 Author Organization [facility] Address [facility] [address] Care Team Providers Name Role Phone Ernestina Nowak Primary Care Provider Reason for Visit Reason Comments Medication Refill Encounter Details Date Type Department Care Team Description 05/20/2013 Refill [place]rology [place] [facility] [place]ue Fuentes MD [facility] [place] [address] NEUROLOGY DEPT. [phone] [place], [place] [address] (Wo rk) Social History Tobacco [...] this encounter Miscellaneous Notes Telephone Encounter - Gillian Shrestha RN - 05/25/2013 11:06 AM EDT Request for RF of methocarbamol 500 mg tablets , take 1-2 tabs , PO, three times daily, PRN Last RX - 02/22/13 #50 with 1 RF Last appt - 04/19/13 Next appt - 07/12/13 documented in this encounter Plan of Treatment Upcoming Encounters Date Type Specialty Care Team Description 08/06/2022 Office Visit Plastic Surgery Peña Woodward MD [facility] PLASTIC SURGERY [place] [address] (Flores ordonez) 08/19/2022 Office Visit Podiatry Tom Titus DPM [place], [place] (Flores ordonez) 09/08/2022 Office Visit Internal Medicine Janay Hay MD [facility] GENERAL INTERNAL MEDICINE [place], [place] [address] (Flores ordonez) 10/12/2059 Hospital Encounter Surgery Jim Hanley MD [facility] SPINE CENTER [place], [place] [address] (Wo rk) Scheduled Procedures Name [...] on filedocumented in this encounter Care Teams Clinical Nursing Manager Relationship Specialty Start Date End Date Ernestina Nowak PA PCP - General 09/03/10 04/05/15 [address] [place] [address] documented as of this encounter
--- OUTSIDE RECORDS SUMMARY | 2022-07-12 00:59 | XMS_ITS | Encounter Summary ---
:1965 Author Organization [facility] [place] [address] Care Team Providers Name Role Phone Ernestina Nowak Primary Care Provider Reason for Referral Consultation (Routine) - Complete - Unable to Contact Patient Specialty Diagnoses / Procedures Referred By Contact Refer red To Contact Otolaryngology Diagnoses Chronic migraine Cervicalgia Dizziness [place] [facility] Otolaryngology 4f SHELLY Guerra [facility] [place] [address] [place] [address] Referral ID Status Reason Start Expiration Visits Visits Date Date Requested Authorized [id number] Complete - Specialty 04/26/2014 10/23/2014 1 1 Unable to Service Contact Requested Patient Encounter Details Date Type Department Care Team Description 04/25/2014 Office Visit Neurology at [facility] [place]acho, Chronic migraine (Primary Dx ); [facility] WALLY Guerra Cervicalgia; [place] [address] NEUROLOGY DEPT. [phone] [place], [place] [address] Social History Tobacco Use Types [...] Sign Reading Time Taken Comments Blood Pressure 146/65 04/25/2014 1:51 PM EDT Pulse 84 04/25/2014 1:51 PM EDT Temperature - - Respiratory Rate - - Oxygen Saturation - - Inhaled Oxygen Concentration - - Weight 93 kg (205 lb) 04/25/2014 1:51 PM EDT Height 165.1 cm (5' 5) 04/25/2014 1:51 PM EDT Body Mass Index 34.11 04/25/2014 1:51 PM EDT documented in this encounter Progress Notes Charlie Mota APRN - 04/26/2014 11:38 AM EDT ----- Message ----- From: Darius Tate MD Sent: 04/26/2014 9:51 AM To: Josue Fuentes MD, Charlie Mota APRN I'm reviewing the MRI request for this lady. Two items. 1. Not sure you were aware of the outside MRI of the cervical spine from 2013 that shows no Chiari malformation. Do you still want the study? 2. Wouldn't usually use contrast for this indication. Is there some other feature that would justifyits use? Thanks, Sedrick So after further discussion with Dr. Fuentes he is highly doubtful this patient has Chiari malformation with a nml MRI cervical spine in 2012. He suggest that I cancel the mri w/wo cervical spine for now. He does suggest that I send her to ENT for dizziness and disequilibrium. She will continue to get her original MRI with spine clinic in May. Charlie Mota APRN - 04/25/2014 1:54 PM EDT CC:This is a 48 y.o. [...] a tendency to overuse opioids. Diagnostic work-up: CT head 03/2014: No intracranial hemorrhage or [...] is here for Botox injections. She did hit a rough patch due a fall off a table a couple of weeks ago, she hit her head, and had a brief loss of consciousness. Since then she has had a number of new sx: memory loss, slurring of speech, imbalance, different headaches (vice like tension type headache), and numbness on the right side of her face and body. At that point Dr. Fuentes heldoff on Botox and order CT head (negative for intracranial hemorrhage or fracture, but questioned cerebellar tonsillar ectopia or Chiari 1 malformation). Since that CT head the only resolution is the facial numbness but she continues to have disequilibrium, memory issues, slurred speech, dizziness and nausea. She does have a f/u cervical spine ordered by ortho wo contrast. She endorses that Botox continues to help with the severity and frequency of her migraine like headaches, but not this new headache. ONBS/TPI's also provide effective treatment for her headaches, whichwas last completed by Dr. Fuentes while I observed in February. Denies headache in office today. Review of systems:chronic head pain as above, neck pain, memory issues, disequilibrium, dizziness, slurred speech, nausea. All other systems were negative. Objective: Filed Vitals: 04/25/14 1351 BP: 146/65 Pulse: 84 Physical Exam Constitutional: Well-developed, well-nourished, and in no distress. Head: Normocephalic and atraumatic. Eyes: EOM are normal. Pupils are equal, round, and reactive to light. No papilledema, +CHANGE LEAD Neck:Limited range of motion. Occipital nerves LYNETTE [...] dizziness, nausea, new headache and memory issues. Needs MRI cervical spine w/wo contrast as soon as possible to R/O chiari malformation as was questionable on CT completed in March. These symptoms could just be related to post-concussive symptoms.Encouraged to keep appt with sleep center for evaluation of CPAP as this will help sleep. Naproxen, methocarbamol, Sumavel for tx of acute migraine; Botox today and q 10 weeks; nerve blocks in 2 weeks. All of her pain medications are now prescribed by her Pain Med practitioner so did not refill the Vicodin. Potential AE's were discussed at length. No refills needed for methocarbamol, Sumavel and naproxen sodium. MIDAS 35 DAYs Pain 07/21 Consent was obtained and [...] units divided between 2 sites in the filter tip catcher muscles, 5 units into 1 site in [...] tolerated the procedure without any immediate complications. At least 15 minutes of this 25 minute face to face visit was spent counseling and therapeutic planning discussing potential adverse effects of all medications were discussed in detail (Botox/ONB/abortive medication), reasoning for cervical MRI spine. We also discussed non-pharmacological approaches chronic headaches (relaxation) as well as coping strategies, exclusive of the time spent performing theBotox. I answered all of the patient's questions and she was comfortable with the plan documented in this encounter Miscellaneous Notes Addendum Note - Charlie Mota APRN - 04/26/2014 11:44 AM EDT Addended by: CHARLIE MOAT on: 04/26/2014 11:44 AM Modules accepted: Orders documented in this encounter Plan of Treatment Upcoming Encounters Date Type Specialty Care Team Description 08/06/2022 Office Visit Plastic Surgery Peña Woodward MD [facility] PLASTIC SURGERY [place], [place] [address] (Wo rk) 08/19/2022 Office Visit Podiatry Tom Titus DPM [place], [place] [address] (Wo rk) 09/08/2022 Office Visit Internal Medicine Janay Hay MD [facility] GENERAL INTERNAL MEDICINE [place], [place] [address] (Wo rk) 10/12/2059 Hospital Encounter Surgery Jim Hanley MD [facility] SPINE CENTER [place] [address] (Wo rk) Scheduled Procedures Name Priority Associated [...] chedule Referral to ENT Outpatient Referral Routine Chronic migr erlinda Ordered: 04/26/2014 Cervicalgia Dizziness documented as of this encounter Visit Diagnoses Diagnosis Chronic migraine - Primary Chronic migraine without aura, without m ention of intractable migraine without mention of status migrainosus Cervicalgia Dizziness Dizziness and giddiness documented in this encounter Care Teams At Home Independent Call Center Agent Relationship Specialty Start Date End Date Ernestina Nowak PA PCP - General 09/03/10 04/05/15 [address] [place] [address] documented as of this encounter
--- OUTSIDE RECORDS SUMMARY | 2022-07-12 00:59 | XMS_ITS | Encounter Summary ---
:1965 Author Organization [facility] Address [facility] [place] [address] Care Team Providers Name Role Phone Ernestina Nowak Primary Care Provider Encounter Details Date Type Department Care Team Description 04/21/2014 Telephone Pain Management at [facility] Milagro Franklin, RN [facility] [address] [place] [address] Social History Tobacco Use Types Packs/Day [...] this encounter Miscellaneous Notes Telephone Encounter - Milagro Franklin RN - 04/21/2014 2:58 PM EDT Pt states she wants to reschedule procedural date. Transferred pt to secretaries to re schedule. documented in this encounter Plan of Treatment Upcoming Encounters Date Type Specialty Care Team Description 08/06/2022 Office Visit Plastic Surgery Peña Woodward MD [facility] PLASTIC SURGERY [place] [address] (Wo rk) 08/19/2022 Office Visit Podiatry Tom Titus DPM [place], [place] [address] (Wo rk) 09/08/2022 Office Visit Internal Medicine Janay Hay MD [facility] GENERAL INTERNAL MEDICINE [place], [place] [address] (Wo rk) 10/12/2059 Hospital Encounter Surgery Jim Hanley MD [facility] SPINE CENTER [place], [place] [address] (Wo rk) Scheduled Procedures Name [...] on filedocumented in this encounter Care Teams Naval Aircrewman Relationship Specialty Start Date End Date Ernestina Nowak PA PCP - General 09/03/10 04/05/15 [address] [place] [address] documented as of this encounter
--- OUTSIDE RECORDS SUMMARY | 2022-07-12 00:59 | XMS_ITS | Encounter Summary ---
:1965 Author Organization [facility] [facility] [employer] Address [facility] [place] [address] Care Team Providers Name Role Phone Ernestina Nowak Primary Care Provider Encounter Details Date Type Department Care Team Description 09/20/2013 Office Visit Neurology at [facility] Josue Fuentes MD Chronic migraine without aura; [facility] [address] [place]. [address] [place] [address] [phone] Social History Tobacco Use Types Packs/Day Years [...] Sign Reading Time Taken Comments Blood Pressure 128/78 09/20/2013 12:52 PM EST Pulse 104 09/20/2013 12:52 PM EST Temperature - - Respiratory Rate - - Oxygen Saturation - - Inhaled Oxygen Concentration - - Weight 105.2 kg (232 lb) 09/20/2013 12:52 PM EST Height 165.1 cm (5' 5) 09/20/2013 12:52 PM EST Body Mass Index 38.61 09/20/2013 12:52 PM EST documented in this encounter Progress Notes Josue Fuentes MD - 09/20/2013 1:06 PM EST Emmanuelle feels that Botox had reduced the frequency of her severe HAs but pain has flared especiallyin cervical regions. Her cervical disc disease and TMD are exacerbating HAs she thinks. Her rescue med for any of her pain is now Naproxen sodium and Robaxin; next she uses Sumavel or Vicodin - now using 30/mo. She now on Abilify and Prozac as her antidepressants. Neck pain seems to relate to cervicaldisc and osteopphytic disease. Dr Yoon did not recommend surgery. Cervical epidural steroid injections have helped, in Pain Med Clinic here. She is also having lumbar pain and lumbar epidurals are being considered. She underwent some testing for leukemia since WBCs have remained elevated and she was also being evaluated for thyroid cancer - all w/u for both has been negative. She is still smoking,but less. Nerve blocks I did in May made a huge difference in terms of both headache and neck pain. She thinks this is something we should repeat. HPI - Nausea, visual scotomata and scintillations, [...] infections followed by urologist Dr. Hernandez in [place]. 2. GERD 3. Asthma (uses inhaler only [...] Alcohol use - 0 Nicotine use - varies Caffeine intake - 1 soda daily Occupation [...] at length. I did refill the methocarbamol, Sumavel and naproxen sodium Consent was obtained and a time-out was [...] in the region surrounding both greater occipital nerves both lesser occipital nerves and a number of cervicaltps including SCM, paraspinals and splenius. The patient tolerated the procedures without any complications. F/u was arranged for <1 mo for Botox (prob 10/07) documented in this encounter Plan of Treatment Upcoming Encounters Date Type Specialty Care Team Description 08/06/2022 Office Visit Plastic Surgery Peña Woodward MD [facility] PLASTIC SURGERY [place], [place] [address] (Wo rk) 08/19/2022 Office Visit Podiatry Tom Titus DPM [place], [place] [address] (Wo rk) 09/08/2022 Office Visit Internal Medicine Janay Hay MD [facility] GENERAL INTERNAL MEDICINE [place], [place] [address] (Wo rk) 10/12/2059 Hospital Encounter Surgery Jim Hanley MD [facility] SPINE CENTER [place], [place] [address] (Wo rk) Scheduled Procedures Name [...] mention of status migrainosus Cervicogenic headache Headache documented in this encounter Administered Medications Inactive Administered Medications - up to 3 most recent administrations Medication Order MAR Action Action Date Dose Rate Site BUpivacaine (PF) (MARCAINE) 0.25 Given 09/20/2013 1:20 PM EST 12 .5 mg % (2.5 mg/mL) injection 12.5 mg 12.5 mg, Intrapleural, ONCE, 1 dose, On Thu09/20/13 at 1345, Routine lidocaine (XYLOCAINE) 10 mg/mL (1 %) injection Given 1 11/21/2012 1:20 PM EST 50 mg 50 mg 50 mg, Subcutaneous, ONCE, 1 dose, On Thu09/20/13 at 1345, Routine documented in this encounter Care Teams Knitting Inspector Relationship Specialty Start Date End Date Ernestina Nowak PA PCP - General 09/03/10 04/05/15 [address] [place] [address] documented as of this encounter
--- OUTSIDE RECORDS SUMMARY | 2022-07-12 00:59 | XMS_ITS | Encounter Summary ---
:1965 Author Organization [facility] [place] [address] Care Team Providers Name Role Phone Ernestina Nowak Primary Care Provider Encounter Details Date Type Department Care Team Description 04/27[facility]2014 [facility] [address] Social History Tobacco Use Types Packs/Day [...] this encounter Miscellaneous Notes Telephone Encounter - Shivani Porter V - 04/27/2014 8:53 AM EDT C-spine MRI ordered by yen Narvaez to use results per Radha Manuel. Pt having MRI in [place]. documented in this encounter Plan of Treatment Upcoming Encounters Date Type Specialty Care Team Description 08/06/2022 Office Visit Plastic Surgery Peña Woodward MD [facility] PLASTIC SURGERY [place] [id number] (Flores ordonez) 08/19/2022 Office Visit Podiatry Tom Titus DPM [place] [id number] (Flores ordonez) 09/08/2022 Office Visit Internal Medicine Janay Hay MD [facility] GENERAL INTERNAL MEDICINE [place], [place] [address] (Wo rk) 10/12/2059 Hospital Encounter Surgery Jim Hanley MD [facility] SPINE CENTER [place], [place] [address] (Flores ordonez) Scheduled Procedures Name [...] on filedocumented in this encounter Care Teams Lean Manufacturing Coordinator Relationship Specialty Start Date End Date Ernestina Nowak PA PCP - General 09/03/10 04/05/15 [address] [place] [address] documented as of this encounter
--- OUTSIDE RECORDS SUMMARY | 2022-07-12 00:59 | XMS_ITS | Encounter Summary ---
:1965 Author Organization [facility] [place] [address] Care Team Providers Name Role Phone Ernestina Nowak Primary Care Provider Encounter Details Date Type Department Care Team Description 10/14/2013 Telephone Pain Management at Alina Zavaleta, [place] [address] Social History Tobacco Use Types Packs/Day [...] Telephone Encounter - Alina Allen LPN - 10/14/2013 9:48 AM EST Attempted to contact pt about pre-procedure instructions. No answer at phone # listed & voice mailbox is not set up. Will try at a later date. documented in this encounter Plan of Treatment Upcoming Encounters Date Type Specialty Care Team Description 08/06/2022 Office Visit Plastic Surgery Peña Woodward MD [facility] PLASTIC SURGERY [place] [id number] (Flores ordonez) 08/19/2022 Office Visit Podiatry Tom Titus DPM [place] [id number] (Flores ordonez) 09/08/2022 Office Visit Internal Medicine Janay Hay MD [facility] GENERAL INTERNAL MEDICINE [place], [place] [address] (Flores ordonez) 10/12/2059 Hospital Encounter Surgery Jim Hanley MD [facility] SPINE CENTER [place], [place] [address] (Flores ordonez) Scheduled Procedures Name [...] filedocumented in this encounter Care Teams General Utility Maintenance Repairer Relationship Specialty Start Date End Date Ernestina Nowak PA PCP - General 09/03/10 04/05/[address] [place] [id number] documented as of this encounter
--- OUTSIDE RECORDS SUMMARY | 2022-07-12 00:59 | XMS_ITS | Encounter Summary ---
:1965 Author Organization [facility] [place] [address] Care Team Providers Name Role Phone Ernestina Nowak Primary Care Provider Encounter Details Date Type Department Care Team Description 10/17/2013 Telephone Pain Management at Mehreen Maldonado, RN [facility] [place] [address] Social History Tobacco Use Types Packs/Day [...] encounter Miscellaneous Notes Telephone Encounter - Mehreen Ramirez, RN - 10/17/2013 9:52 AM EST Emmanuelle Bynum :1965 Message left: will try again later Ms. Bynum at 9:52 AM regarding her upcoming Cervical epidural steroid injection with Dr. Aracelis Mcknight MD. Patients phone was unable to accept messages at this time. Mehreen Ramirez RN documented in this encounter Plan of Treatment Upcoming Encounters Date Type Specialty Care Team Description 08/06/2022 Office Visit Plastic Surgery Peña Woodward MD [facility] PLASTIC SURGERY [place], [place] [address] (Flores ordonez) 08/19/2022 Office Visit Podiatry Tom Titus DPM [place], [place] [address] (Wo rk) 09/08/2022 Office Visit Internal Medicine Janay Hay MD [facility] GENERAL INTERNAL MEDICINE [place], [place] [address] (Wo josé luis) 10/12/2059 Hospital Encounter Surgery Jim Hanley MD [facility] SPINE CENTER [place], [place] [address] (Wo rk) Scheduled Procedures Name [...] filedocumented in this encounter Care Teams Director Statistical Programming Relationship Specialty Start Date End Date Ernestina Nowak PA PCP - General 09/03/10 04/05/15 [address] [place] [address] documented as of this encounter
--- OUTSIDE RECORDS SUMMARY | 2022-07-12 00:59 | XMS_ITS | Encounter Summary ---
:1965 Author Organization [facility] Address [facility] [address] [place] [address] Care Team Providers Name Role Phone Ernestina Nowak Primary Care Provider Reason for Visit Reason Comments Other Encounter Details Date Type Department Care Team Description 03/23/2014 Telephone Neurology at [facility] Josue Fuentes MD [facility] [place] [address] NEUROLOGY DEPT. [phone] [place], [place] [address] (Wo rk) Social History Tobacco [...] this encounter Miscellaneous Notes Telephone Encounter - Meera Shrestha RN - 03/23/2014 2:22 PM EDT I have informed Emmanuelle of the results of her CT scan of the head , she voiced understanding of this result . She informed me that she did have the MRI done yesterday. Telephone Encounter - Meera Shrestha RN - 03/23/2014 2:20 PM EDT Message copied by MEERA SHRESTHA on ThuMar 23, 2014 2:20 PM ------ Message from: JOSUE FUENTES Created: ThuMar 23, 2014 1:52 PM Was already ordered by another MD and I believe she had it yesterday? ----- Message ----- From: Meera Shrestha RN Sent: 03/23/2014 1:46 PM To: MD Dr. Alfredo Blair, I will order the MRI if you could tell me what type and for what indication. Thanks Meera ----- Message ----- From: Josue Fuentes MD Sent: 03/20/2014 2:22 PM To: Meera Shrestha RN Hi - Please let pt know there is no stroke or hemorrhage or other issue on the CT. I suspect she issuffering postconcussive symptoms but we should go ahead with the MRI as planned. She will be scheduled for Botox timmy - Conchis I think is working on that but please make sure. Thanks! Mo ----- Message ----- From: Department, Radiology Sent: 03/20/2014 1:12 PM To: Josue Fuentes MD documented in this encounter Plan of Treatment Upcoming Encounters Date Type Specialty Care Team Description 08/06/2022 Office Visit Plastic Surgery Peña Woodward MD [facility] PLASTIC SURGERY [place], [place] [address] (Wo rk) 08/19/2022 Office Visit Podiatry oTm Titus DPM [place], [place] [address] (Wo rk) 09/08/2022 Office Visit Internal Medicine Janay Hay MD [facility] GENERAL INTERNAL MEDICINE [place], [place] [address] (Wo rk) 10/12/2059 Hospital Encounter Surgery Jim Hanley MD [facility] SPINE CENTER [place], [place] [address] (Wo rk) Scheduled Procedures Name [...] on filedocumented in this encounter Care Teams Cuff Turner Machine Operator Relationship Specialty Start Date End Date Ernestina Nowak PA PCP - General 09/03/10 04/05/[address] [place] [address] documented as of this encounter
--- OUTSIDE RECORDS SUMMARY | 2022-07-12 00:59 | XMS_ITS | Encounter Summary ---
:1965 Author Organization [facility] Address [facility] [place] [address] Care Team Providers Name Role Phone Ernestina Nowak Primary Care Provider Encounter Details Date Type Department Care Team Description 02/14/2014 Office Visit Neurology at [facility] Josue Fuentes MD Chronic migraine without aura; [facility] [address] [place]. [address] [place] [address] [phone] Social History Tobacco Use Types Packs/Day Years [...] Sign Reading Time Taken Comments Blood Pressure 126/90 02/14/2014 12:55 PM EDT Pulse 106 02/14/2014 12:55 PM EDT Temperature - - Respiratory Rate - - Oxygen Saturation - - Inhaled Oxygen Concentration - - Weight 99.8 kg (220 lb) 02/14/2014 12:55 PM EDT reporte d Height 165.1 cm (5' 5) 02/14/2014 12:55 PM EDT Body Mass Index 36.61 02/14/2014 12:55 PM EDT documented in this encounter Progress Notes Josue Fuentes MD - 02/14/2014 1:12 PM EDT Emmanuelle feels that Botox has reduced the frequency of her severe HAs but pain in posterior cervicalareas is persistent. Her rescue med for any of her pain is now Naproxen sodium and Robaxin; next sheuses Sumavel or Vicodin - now using 30/mo. She now on Abilify and Prozac as her antidepressants. Neck pain seems to relate to cervical disc and osteopphytic disease. Dr Yoon did not recommend surgery. Cervical epidural steroid injections have helped, in [facility] Clinic here. She is also having lumbar pain and lumbar epidurals are being considered. She underwent some testing for leukemia since WBCshave remained elevated and she was also being evaluated for thyroid cancer - all w/u for both has been negative. She is still smoking, but less. Occipital nerve blocks I did in September were helpful in terms of both headache and neck pain. HPI - Nausea, visual scotomata and scintillations, [...] infections followed by urologist Dr. Hernandez in [place]. 2. GERD 3. Asthma (uses inhaler only [...] sleep study to be done 10. Diabetes 11. Obesity - planning for gastric bypass which is hoped will improve SEB as well Current Outpatient Prescriptions Medication Sig Dispense Refill ??? oxyCODONE (OXYCONTIN) 30 mg CR tablet Take 30 mg by mouth 2 times daily. ??? ALPRAZolam (XANAX) 1 mg tablet Take 1 mg by mouth 5 times daily. ??? FLUoxetine (PROZAC) 40 mg capsule Take 80 mg by mouth daily. ??? clobetasol (TEMOVATE) 0.05 % external solution Apply topically 2 times a day for worse areas of scalp psoriasis for 2 weeks only 50 mL 1 ??? Betamethasone-Calcipotriene (TACLONEX SCALP) 0.005-0.064 % Susp apply topically to scalp 2-3 times at night for maintenance of psoriasis 60 g 2 ??? OXYcodone-acetaminophen (PERCOCET) 7.5-325 mg per tablet Take 1 tablet by mouth 3 times daily. ??? SUMAtriptan succinate (SUMAVEL DOSEPRO) 6 mg/0.5 mL NfIj Inject 0.5 mLs subcutaneously 2 times daily as needed. As needed 4 Syringe 3 ??? methocarbamol (ROBAXIN-750) 750 mg tablet Take 2 tablets by mouth 3 times daily as needed. 50 tablet 2 ??? naproxen sodium (ANAPROX) 550 mg tablet Take 1 tablet by mouth 2 times daily as needed. 30 tablet 2 ??? INSULIN DETEMIR (LEVEMIR FLEXPEN SUBQ) Inject 64 Units subcutaneously 2 times daily. ??? insulin aspart (NOVOLOG) 100 unit/mL pen injection Inject 2-8 Units subcutaneously 4 times daily. Sliding scale ??? gabapentin (NEURONTIN) 600 mg tablet Take 1 tablet by mouth 3 times daily. 90 tablet 5 ??? gabapentin (NEURONTIN) 300 mg capsule Take 1 capsule by mouth 3 times daily. 90 capsule 5 ??? metFORMIN (GLUCOPHAGE) 500 mg tablet Take 500 mg by mouth 2 times daily (with meals). ??? lisinopril (PRINIVIL;ZESTRIL) 10 mg tablet Take 10 mg by mouth daily. ??? glyBURIDE (DIABETA) 5 mg tablet Take 10 mg by mouth 2 times daily (with meals). ??? aripiprazole (ABILIFY) 30 mg tablet Take by mouth daily. ??? esomeprazole (NEXIUM) 40 mg capsule Take 40 mg by mouth 2 times daily. ??? Eflornithine 13.9 % Crea Apply topically 2 times daily. For excessive facial hair 30 g 2 ??? [DISCONTINUED] OXYcodone 15 mg Tb12 Take 15 mg by mouth every 12 hours. ??? augmented betamethasone dipropionate (DIPROLENE-AF) 0.05 % ointment Apply topically 2 times daily. 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 Head and neck exam revealed quite a bit of posterior cervical muscle spasm with tenderness and trigger points over the left paraspinal region in particular. There was no spinal deformity or tenderness.There were no carotid bruits. Paranasal sinuses were non-tender. TMJ regions were benign. Submandibular regions were normal. Neurological exam was entirely normal including mental status, cranial nerves, motor tone and strength, reflexes, sensation, coordination, and gait. Impression: Migraine without aura Depression, anxiety Possible tendency for overuse of opioids Obesity Plan: Naproxen, methocarbamol, Sumavel for tx of acute migraine; Botox today and q 3 mo; nerve blocks as above in future prn All of her pain medications are now prescribed by her Pain Med practitioner so I did not refill the Vicodin. Potential AE's were discussed at length. I did refill the methocarbamol, Sumavel and naproxen sodium. Consent was obtained and a time-out was [...] of cervical tps including SCM, paraspinals and splenius. The patient tolerated the procedures without any complications. documented in this encounter Plan of Treatment Upcoming Encounters Date Type Specialty Care Team Description 08/06/2022 Office Visit Plastic Surgery Peña Woodward MD [facility] PLASTIC SURGERY [place], [place] [address] ( josé luis) 08/19/2022 Office Visit Podiatry Tom Titus DPM [place], [place] [address] ( josé luis) 09/08/2022 Office Visit Internal Medicine Janay Hay MD [facility] GENERAL INTERNAL MEDICINE [place], [place] [address] ( josé luis) 10/12/2059 Hospital Encounter Surgery Jim Hanley MD [facility] SPINE CENTER [place], [place] [address] (Flores ordonez) Scheduled Procedures Name [...] Rate Site BUpivacaine (PF) (MARCAINE) 0.25 Given 02/14/2014 1:55 PM EDT 12 .5 mg % (2.5 mg/mL) injection 12.5 mg 12.5 mg, Intrapleural, ONCE, 1 dose, On Tu02/14/14 at 1415, Routine lidocaine (XYLOCAINE) 10 mg/mL (1 %) injection Given 0 02/14/2014 1:55 PM EDT 50 mg 50 mg 50 mg, Subcutaneous, ONCE, 1 dose, On Thu02/14/14 at 1415, Routine documented in this encounter Care Teams Leaf Fat Scraper Relationship Specialty Start Date End Date Ernestina Nowak PA PCP - General 09/03/10 04/05/15 [address] [place] [address] documented as of this encounter
--- OUTSIDE RECORDS SUMMARY | 2022-07-12 00:59 | XMS_ITS | Encounter Summary ---
:1965 Author Organization [place] [address] Care Team Providers Name Role Phone Ernestina Nowak Primary Care Provider Encounter Details Date Type Department Care Team Description 07/18/2013 Telephone Pain Management at Mehreen Maldonado, RN [facility] [place] [address] Social History Tobacco Use Types Packs/Day [...] Telephone Encounter - Mehreen Ramirez, RN - 07/18/2013 5:07 PM EDT I called patient for pre-procedure info and she will call tomorrow to cancel her procedure due to her wanting to get a cardiac workup before since she has been having new left sided chest and arm pain. documented in this encounter Plan of Treatment Upcoming Encounters Date Type Specialty Care Team Description 08/06/2022 Office Visit Plastic Surgery Peña Woodward MD [facility] PLASTIC SURGERY [place] [address] ( josé luis) 08/19/2022 Office Visit Podiatry Tom Titus DPM [place] [address] ( josé luis) 09/08/2022 Office Visit Internal Medicine Janay Hay MD [facility] GENERAL INTERNAL MEDICINE [place], [place] [address] ( josé luis) 10/12/2059 Hospital Encounter Surgery Jim Hanley MD [facility] SPINE CENTER [place], [place] [address] (Flores ordonez) Scheduled Procedures Name [...] on filedocumented in this encounter Care Teams Casting Room Operator Relationship Specialty Start Date End Date Ernestina Nowak PA PCP - General 09/03/10 04/05/15 [address] [place] [address] documented as of this encounter
--- OUTSIDE RECORDS SUMMARY | 2022-07-12 00:59 | XMS_ITS | Encounter Summary ---
:1965 Author Organization [facility] [address] Care Team Providers Name Role Phone Ernestina Nowak Primary Care Provider Encounter Details Date Type Department Care Team Description 06/24/2013 Telephone Pain Management at Carmen Hoffmann [facility] [place] [address] Social History Tobacco Use Types Packs/Day [...] encounter Miscellaneous Notes Telephone Encounter - Carmen Gomes - 06/24/2013 2:04 PM EDT Pain Management Center Post-Procedure Phone Note Patient: Emmanuelle Bynum [phone] Post-procedure phone call from patient to report her response to the right C4,5,6 cervical medial branch block procedure performed on 06/23/13 in the Pain Management Center by Aracelis Mcknight MD. Patient reports that after the procedure she experienced: _x_ Post-procedure pain has been reduced by approximately __75__%. If pain is reduced, it lasted: _x_ greater than 4 hours Based on the information provided above and after discussion with the patient, the following actionswill be taken: _x_ Patient meets criteria for radiofrequency treatment and would like to proceed with a Cervical Radiofrequency procedure with Aracelis Mcknight MD. x__ Patient will be contacted by billet heater operator in Pain Management Center as described above. Patient on anticoagulant medication: _x_no Patient has pacemaker/defibrillator: No Patient has the appropriate phone number and understands that she may contact the Pain Management Center at any time with questions or concerns. Carmen Gomes documented in this encounter Plan of Treatment Upcoming Encounters Date Type Specialty Care Team Description 08/06/2022 Office Visit Plastic Surgery Peña Woodward MD [facility] PLASTIC SURGERY [place], [place] [address] (Wo rk) 08/19/2022 Office Visit Podiatry Tom Titus DPM [facility] [address] [place], [place] [address] (Wo rk) 09/08/2022 Office Visit Internal Medicine Janay Hay MD [facility] GENERAL INTERNAL MEDICINE [place], [place] [address] (Wo rk) 10/12/2059 Hospital Encounter Surgery Jim Hanley MD [facility] SPINE CENTER [place], [place] [address] (Wo rk) Scheduled Procedures Name [...] on filedocumented in this encounter Care Teams Composition Mixer Relationship Specialty Start Date End Date Ernestina Nowak PA PCP - General 09/03/10 04/05/15 [address] [place] [address] documented as of this encounter
--- OUTSIDE RECORDS SUMMARY | 2022-07-12 00:59 | XMS_ITS | Encounter Summary ---
:1965 Author Organization [facility] Address [facility] [place] [address] Care Team Providers Name Role Phone Ernestina Nowak Primary Care Provider Reason for Visit Reason Onset Date Comments Medication Refill 03/20/2014 restasis needed. [facility] [place] pcp will no longer prescribe this and they would like for you to take over prescription( riley mares in [facility]) ( pt [facility]) Other Encounter Details Date Type Department Care Team Description 03/20/2014 Telephone Ophthalmology at [facility] Payal Gunter Medication Refill [facility] Kevin Styles OD ([place] [address] [facility] patients pcp will no [phone] DR longer prescribe this OPHTHALMOLOGY and they would like DEPT. for you to take over [place], [place] [address] prescription( [phone] brittney in [facility]) ( pt would like brittney to call brii it is toribio ilable) ); Social History Tobacco Use Types Packs/Day Years [...] this encounter Miscellaneous Notes Telephone Encounter - Natalia Lamas LPN - 03/22/2014 1:31 PM EDT Called Emmanuelle at [phone]. Relayed information regarding head CT. Verbalized understanding of information provided. Denied questions/concerns. [place] Telephone Encounter - Natalia Lamas LPN - 03/22/2014 1:31 PM EDT Message copied by NATALIA LAMAS on ThuMar 22, 2014 1:31 PM ------ Message from: TRES FUENTES Created: ThuMar 22, 2014 12:05 PM Please let pt know CT of the head was normal. ML ----- Message ----- From: Tres Fuentes MD Sent: 03/20/2014 11:56 AM To: Tres Fuentes MD Check CT today documented in this encounter Plan of Treatment Upcoming Encounters Date Type Specialty Care Team Description 08/06/2022 Office Visit Plastic Surgery Peña Woodward MD [facility] PLASTIC SURGERY [place], [place] [address] (Wo rk) 08/19/2022 Office Visit Podiatry Tom Titus DPM [place], [place] [address] (Wo rk) 09/08/2022 Office Visit Internal Medicine Janay Hay MD [facility] GENERAL INTERNAL MEDICINE [place], [place] [address] (Wo rk) 10/12/2059 Hospital Encounter Surgery Jim Hanley MD [facility] SPINE CENTER [place], [place] [address] (Wo rk) Scheduled Procedures Name [...] filedocumented in this encounter Care Teams Cuff Folder Relationship Specialty Start Date End Date Ernestina Nowak PA PCP - General 09/03/10 04/05/15 [address] [place] [address] documented as of this encounter
--- OUTSIDE RECORDS SUMMARY | 2022-07-12 00:59 | XMS_ITS | Encounter Summary ---
:1965 Author Organization [facility] [place] [address] Care Team Providers Name Role Phone Ernestina Nowak Primary Care Provider Reason for Visit Reason Onset Date Comments Medication Refill 11/01/2013 Encounter Details Date Type Department Care Team Description 11/01/2013 Refill Dermatology at [facility] soriasis (Primary Dx) Karen GANNON MD [address] [place] [address] [facility] [place], [place] [address] (Wo rk) Social History Tobacco [...] this encounter Miscellaneous Notes Telephone Encounter - Payal Valdez LPN - 11/01/2013 4:30 PM EST I spoke with the pharmacist and he cancelled the duplicate prescriptions. She has one refill remaining on the Taclonex, new prescription cancelled Clobetasol external refilled today with no refills Telephone Encounter - Payal Valdez LPN - 11/01/2013 4:05 PM EST Patient called asking for a refill for Taclonex and Clobetasol sent to [facility] in [place], [place]. Patient made an appointment for January, with Dr Blair. She can be reached at [phone]. documented in this encounter Plan of Treatment Upcoming Encounters Date Type Specialty Care Team Description 08/06/2022 Office Visit Plastic Surgery Peña Woodward MD [facility] PLASTIC SURGERY [place], [place] [address] (Wo rk) 08/19/2022 Office Visit Podiatry Tom Titus DPM [place], [place] [address] (Wo rk) 09/08/2022 Office Visit Internal Medicine Janay Hay MD [facility] GENERAL INTERNAL MEDICINE [place], [place] [address] (Wo rk) 10/12/2059 Hospital Encounter Surgery Jim Hanley MD [facility] SPINE CENTER [place], [place] [address] (Wo rk) Scheduled Procedures [...] of this encounter Visit Diagnoses Diagnosis Psoriasis - Primary Other psoriasis documented in this encounter Care Teams Inspector Final Assembly Electrical Relationship Specialty Start Date End Date Ernestina Nowak PA PCP - General 09/03/10 04/05/15 [address] [place] [address] documented as of this encounter
--- OUTSIDE RECORDS SUMMARY | 2022-07-12 00:59 | XMS_ITS | Encounter Summary ---
:1965 Author Organization [facility] [address] Care Team Providers Name Role Phone Ernestina Nowak Primary Care Provider Encounter Details Date Type Department Care Team Description 06/22/2013 Telephone Pain Management at [facility] Valentina Jarquin, [place] [address] Social History Tobacco Use Types Packs/Day [...] encounter Miscellaneous Notes Telephone Encounter - Valentina Jarquin RN - 06/22/2013 11:28 AM EDT Emmanuelle Bynum :1965 Message left: I left a message on answering machine Ms. Bynum at 11:28 AM regarding her upcoming cervical medialbranch block with Dr. Aracelis Mcknight MD. Message included the followin. Patient to bring updated list of medications including dosage and reason for taking. 2. Call the Pain Clinic Triage Nurse for procedure instructions. 3. Instructed to arrive at 1300 (30 minutes prior to procedure start time) on 06/23/13 (date of procedure) with their school bus driver/custodian. Prior to checking in at [employer], please be sure to empty your bladder. Patient confirmed understanding that if they do not follow the above their instructions, their procedure is likely to be cancelled. Valentina Jarquin RN documented in this encounter Plan of Treatment Upcoming Encounters Date Type Specialty Care Team Description 08/06/2022 Office Visit Plastic Surgery Peña Woodward MD [facility] PLASTIC SURGERY [place], [place] [address] (Flores ordonez) 08/19/2022 Office Visit Podiatry Tom Titus DPM [place], [place] [address] (Flores ordonez) 09/08/2022 Office Visit Internal Medicine Janay Hay MD [facility] GENERAL INTERNAL MEDICINE [place], [place] [address] (Wo rk) 10/12/2059 Hospital Encounter Surgery Jim Hanley MD [facility] SPINE CENTER [place], [place] [address] (Wo rk) [...] on filedocumented in this encounter Care Teams Chemical Research Engineer Relationship Specialty Start Date End Date Ernestina Nowak PA PCP - General 09/03/10 04/05/15 [address] [place] [address] documented as of this encounter
--- OUTSIDE RECORDS SUMMARY | 2022-07-12 00:59 | XMS_ITS | Encounter Summary ---
:1965 Author Organization [facility] [place] [address] Care Team Providers Name Role Phone Ernestina Nowak Primary Care Provider Reason for Visit Reason Onset Date Comments Other 04/26/2014 Other Encounter Details Date Type Department Care Team Description 04/26/2014 Telephone Neurology at [facility] Charlie Flor, Chantal (Other) [facility] Kevin castañ[place] [address] [facility] [phone] NEUROLOGY DEPT. [place], [place] [address] Social History Tobacco Use Types [...] Telephone Encounter - Charlie Flor APRN - 04/28/2014 1:45 PM EDT Ordered cancelled. See note Telephone Encounter - Mario Lee RN - 04/26/2014 9:26 AM EDT Emmanuelle Pinto called to say she was unable to have her MRI done her yesterday d/t distance for travel. She is requesting the order be sent to [facility]. I printed the order and insurance information and faxed it to [facility] radiology. Thanks Mario RODRÍGUEZ Last appt 04/25 Next appt 05/23 Telephone Encounter - Aracely Cavazos - 04/26/2014 8:39 AM EDT Patient called in today. Patient was unable to have the MRI done yesterday. Patient [place] and is unable to have the MRI done here. Patient states she would like to have the MRI done at [facility]. Please contact Aracely Cavazos at [phone] when order is placed. documented in this encounter Plan of Treatment Upcoming Encounters Date Type Specialty Care Team Description 08/06/2022 Office Visit Plastic Surgery Peña Woodward MD [facility] PLASTIC SURGERY [place], [place] [address] (Wo rk) 08/19/2022 Office Visit Podiatry Tom Titus DPM [place], [place] [address] (Wo rk) 09/08/2022 Office Visit Internal Medicine Janay Hay MD [facility] GENERAL INTERNAL MEDICINE [place], [place] [address] (Wo rk) 10/12/2059 Hospital Encounter Surgery Jim Hanley MD [facility] SPINE CENTER [place], [place] [address] (Wo rk) Scheduled Procedures Name [...] on filedocumented in this encounter Care Teams Critical Systems Technician Relationship Specialty Start Date End Date Ernestina Nowak PA PCP - General 09/03/10 04/05/15 [address] [place] [address] documented as of this encounter
--- OUTSIDE RECORDS SUMMARY | 2022-07-12 00:59 | XMS_ITS | Encounter Summary ---
:1965 Author Organization [facility] Address [address] [place] [address] Care Team Providers Name Role Phone Ernestina Nowak Primary Care Provider Encounter Details Date Type Department Care Team Description 03/20/[address] Scan at [facility] Concussion, with loss of [facility] conscious ness of Drive unspecified duration, [place] [id number] Social History Tobacco Use Types Packs/Day Years [...] Sig Dispensed Refills Start Date End Date ondansetron (ZOFRAN) 4 Take 4 mg by [...] as tabletIndications: needed. Chronic migraine without aura naproxen sodium Take 1 tablet by mouth 30 tablet 2 09/20/20 13 04/30/2014 (ANAPROX) 550 mg 2 times daily as tabletIndications: needed. Chronic migraine [...] MD [facility] PLASTIC SURGERY [place], [place] [address] (Flores ordonez) 08/19/2022 Office Visit Podiatry Tom Titus DPM [place], [place] [address] (Flores ordonez) 09/08/2022 Office Visit Internal Medicine Janay Hay MD [facility] GENERAL INTERNAL MEDICINE [place], [place] [address] (Wo rk) 10/12/2059 Hospital Encounter Surgery Jim Hanley MD [facility] SPINE CENTER [place], [place] [address] (Wo rk) Scheduled Procedures Name [...] Priority Date/Time Associated Diagnosis Comme nts CT HEAD WO STAT 03/20/2014 12:28 Concussion, with loss Re sults for this CONTRAST (GENERIC) PM EDT of consciousness of pr ocedure are in unspecified duration, the re sults initial encounter section. 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 The cerebell ar tonsils are identified at the level of the foramen magnum which may represen t a Chiari 1 or cerebellar tonsillar ectopia. . The haque-white differentiatio n is maintained. Supra and infratentorial basal cisterns are patent No calvarial fracture. The visualized paranasal sinuses and mastoid air cells are clear. The visualized orbits are normal in appearance. ?? Impression No intracranial hemorrhage or fracture. ?? Question cerebellar tonsillar ectopia or Chiari 1 malformation. Film and interpretation reviewed by the attending Procedure Note Peña Menezes MD - 03/20/2014Formatt ing of this note might be different from the original. 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 The cerebell ar tonsils are identified at the level of the foramen magnum which may represen t a Chiari 1 or cerebellar tonsillar ectopia. . The haque-white differentiatio n is maintained. Supra and infratentorial basal cisterns are patent No calvarial fracture. The visualized paranasal sinuses and mastoid air cells are clear. The visualized orbits are normal in appearance. Impression No intracranial hemorrhage or fracture. Question cerebellar tonsillar ectopia or Chiari 1 malformation. Film and interpretation reviewed by the attending Josue Fuentes MD IMG CT ORDERABLES documented in this encounter Visit Diagnoses Diagnosis Concussion, with loss of consciousness o f unspecified duration, initial encounter documented in this encounter Care Teams Mapping Analyst Relationship Specialty Start Date End Date Ernestina Nowak PA PCP - General 09/03/10 04/05/15 [address] [place] [address] documented as of this encounter
--- OUTSIDE RECORDS SUMMARY | 2022-07-12 00:59 | XMS_ITS | Encounter Summary ---
:1965 Author Organization [facility] Address [address] [place] [address] Care Team Providers Name Role Phone Ernestina Nowak Primary Care Provider Reason for Visit Reason Onset Date Comments Medication Problem 04/21/2013 Encounter Details Date Type Department Care Team Description 04/21/2013 Telephone Spine Center at [facility] Lexie Julian, Medication Problem [facility] Kevin castañ[place] [address] Social History Tobacco Use Types Packs/Day Years [...] Telephone Encounter - Lexie Julian RN - 04/21/2013 11:27 AM EDT Received call from Lissette, Nurse at Dr Ernestina Ann's office wanting to be certain that Ernie Abdul was aware that pt was on oxycodone as it was not listed on the med lsit associated to his previous notes. Advised pt that Roxanna gregory, subsequent to yesterday's call from their office, had added it to pt's medication list so that Elder would be aware for any future visits; advised caller that Elder had not prescribed opioids During his encounters with Ms Bynum. Caller stating that Dr Nowak was not planning to continue opioid management; asking if Ernie Garzon would consider taking it over. Requested caller advise Dr Nowak that the [place] providers do not manage chronic pain with opioids; and that in gen'l we defer opioid management for non acute postop pts to their PCP or a Pain Service. Lissette verbalized Understanding and advised that the PCP dis not plan to continue the oxycodone and that she would be referring pt to a local Pain Center. documented in this encounter Plan of Treatment Upcoming Encounters Date Type Specialty Care Team Description 08/06/2022 Office Visit Plastic Surgery Peña Woodward MD [facility] PLASTIC SURGERY [place], [place] [address] (Wo rk) 08/19/2022 Office Visit Podiatry Tom Titus DPM [facility] [address] [place], [place] [address] (Wo rk) 09/08/2022 Office Visit Internal Medicine Janay Hay MD [facility] GENERAL INTERNAL MEDICINE [place], [place] [address] (Wo rk) 10/12/2059 Hospital Encounter Surgery Jim Hanley MD [facility] SPINE CENTER [place], [place] [address] (Wo rk) Scheduled Procedures Name [...] on filedocumented in this encounter Care Teams Renderer Relationship Specialty Start Date End Date Ernestina Nowak PA PCP - General 09/03/10 04/05/15 [address] [place] [address] documented as of this encounter
--- OUTSIDE RECORDS SUMMARY | 2022-07-12 00:59 | XMS_ITS | Encounter Summary ---
:1965 Author Organization [facility] [place] [address] Care Team Providers Name Role Phone Ernestina Nowak Primary Care Provider Reason for Visit Reason Onset Date Comments Medication Refill 07/12/2013 Encounter Details Date Type Department Care Team Description 07/12/2013 Refill Dermatology at [facility] Bl[facility] soriasis (Primary Dx) Karen GANNON MD [address] [place] [address] [facility] [place], [place] [address] (Wo rk) Social History [...] MD [facility] PLASTIC SURGERY [place] [id number] ([facility]) 08/19/2022 Office Visit Podiatry Tom Titus DPM [place] [id number] ([facility]) 09/08/2022 Office Visit Internal Medicine Janay Hay MD [facility] GENERAL INTERNAL MEDICINE [place], [place] [address] ([facility]) 10/12/2059 Hospital Encounter Surgery Jim Hanley MD [facility] SPINE CENTER [place], [place] [address] ([facility]) Scheduled Procedures Name Priority Associated Diagnoses [...] psoriasis documented in this encounter Care Teams Electronics Warfare Technician Relationship Specialty Start Date End Date Ernestina Nowak PA PCP - General 09/03/10 04/05/15 [address] [place] [address] documented as of this encounter
--- OUTSIDE RECORDS SUMMARY | 2022-07-12 00:59 | XMS_ITS | Encounter Summary ---
:1965 Author Organization [facility] Address [address] [place] [id number] Care Team Providers Name Role Phone Ernestina Nowak Primary Care Provider Encounter Details Date Type Department Care Team Description 03/20/2014 Follow-Up Neurology at [facility] Josue Fuentes MD Concussion, with loss of [facility] con sciousness of Drive DR unspecified duration, [place] [address] NEUROLOGY DEPT. initial encounter [phone] [place] [phone] (Primary Dx) Social History Tobacco Use Types Packs/Day Years [...] Sign Reading Time Taken Comments Blood Pressure 130/83 03/20/2014 9:58 AM EDT Pulse 93 03/20/2014 9:58 AM EDT Temperature - - Respiratory Rate - - Oxygen Saturation - - Inhaled Oxygen Concentration - - Weight 96.6 kg (213 lb) 03/20/2014 9:58 AM EDT Height 165.1 cm (5' 5) 03/20/2014 9:58 AM EDT Body Mass Index 35.45 03/20/2014 9:58 AM EDT documented in this encounter Progress Notes Josue Fuentes MD - 03/20/2014 11:09 AM EDT Emmanuelle feels that Botox has reduced the frequency of her severe HAs but pain in posterior cervicalareas is persistent. She is here for her scheduled Botox tx. Her rescue med for any of her [...] less. Occipital nerve blocks I did in February were helpful in terms of both headache and neck pain. Emmanuelle fell off a table 2 weeks ago, hit her head, and had a brief loc. Since then she has had a number of new sx: memory loss, slurring of speech, imbalance, different headaches, and numbness on theright side of her face and body. Diagnostic work-up - MRI of the head approx 2 years ago was nl. PMH/Problem List 1. Recurrent kidney infections followed by urologist Dr. Hernandez in [place]. 2. GERD 3. Asthma (uses inhaler only [...] tone and strength, reflexes, sensation, coordination, and gait, although she was very anxious and reported some subjective sensation changes which varied on the L. Impression: Some post-concussive symptoms, r/o SDH, etc Migraine without aura Depression, anxiety Possible tendency for overuse of opioids Obesity Plan: CT head ronald Will decide where to go from there based on the results of the CT. Will reschedule the Botox for next week. documented in this encounter Plan of Treatment Upcoming Encounters Date Type Specialty Care Team Description 08/06/2022 Office Visit Plastic Surgery Peña Woodward MD [facility] PLASTIC SURGERY [place], [place] [address] (Wo rk) 08/19/2022 Office Visit Podiatry Tom Titus DPM [place], [place] [address] (Wo rk) 09/08/2022 Office Visit Internal Medicine Janay Hay MD [facility] GENERAL INTERNAL MEDICINE [place], [place] [address] (Wo rk) 10/12/2059 Hospital Encounter Surgery Jim Hanley MD [facility] SPINE CENTER [place], [place] [address] (Wo rk) Scheduled Procedures Name [...] documented as of this encounter Results CT head WO contrast [...] consciousness o f unspecified duration, initial encounter - Primary Concussion, with loss of consciousness o f unspecified duration, initial encounter documented in this encounter Care Teams Enamel Finisher Relationship Specialty Start Date End Date Ernestina Nowak PA PCP - General 09/03/10 04/05/15 [address] [place] [address] documented as of this encounter
--- OUTSIDE RECORDS SUMMARY | 2022-07-12 00:59 | XMS_ITS | Encounter Summary ---
:1965 Author Organization [facility] [address] Care Team Providers Name Role Phone Ernestina Nowak Primary Care Provider Encounter Details Date Type Department Care Team Description 03/26/2014 Orders Only Ophthalmology at [facility] Payal Gunter (meibomian gland [facility] D garry Styles, OD dysfunction) ([place] [address] [facility] ) [phone] CENTER OPHTHALMOLOGY DEPT. [place], [place] [address] Social History Tobacco Use Types [...] as of this encounter Progress Notes Payal Erwin OD - 03/26/2014 8:51 PM EDT Restasis Rx sent. documented in this encounter Plan of Treatment Upcoming Encounters Date Type Specialty Care Team Description 08/06/2022 Office Visit Plastic Surgery Peña Woodward MD [facility] PLASTIC SURGERY [place], [place] [address] (Flores ordonez) 08/19/2022 Office Visit Podiatry Tom Titus DPM [place], [place] [address] (Flores ordonez) 09/08/2022 Office Visit Internal Medicine Janay Hay MD [facility] GENERAL INTERNAL MEDICINE [place], [place] [address] (Flores ordonez) 10/12/2059 Hospital Encounter Surgery Jim Hanley MD [facility] SPINE CENTER [place], [place] [address] (Flores ordonez) Scheduled Procedures Name [...] as of this encounter Visit Diagnoses Diagnosis MGD (meibomian gland dysfunction) - Prim mayank Other disorders of eyelid documented in this encounter Care Teams Auger Operator Relationship Specialty Start Date End Date Ernestina Nowak PA PCP - General 09/03/10 04/05/15 [address] [place] [address] documented as of this encounter
--- OUTSIDE RECORDS SUMMARY | 2022-07-12 00:59 | XMS_ITS | Encounter Summary ---
:1965 Author Organization [place] [address] Care Team Providers Name Role Phone Ernestina Nowak Primary Care Provider Encounter Details Date Type Department Care Team Description 10/18/2013 Telephone Pain Management at [facility], [place] [address] Social History Tobacco Use Types Packs/Day [...] Telephone Encounter - Alina Allen LPN - 10/18/2013 2:26 PM EST Spoke with pt, a this time she has an infection & has been started on antibiotics. Appt cancelled, pt will reschedule at later date. documented in this encounter Plan of Treatment Upcoming Encounters Date Type Specialty Care Team Description 08/06/2022 Office Visit Plastic Surgery Peña Woodward MD [facility] PLASTIC SURGERY [place] [phone] ( josé luis) 08/19/2022 Office Visit Podiatry Tom Titus DPM [place] [address] (Flores ordonez) 09/08/2022 Office Visit Internal Medicine Janay Hay MD [facility] GENERAL INTERNAL MEDICINE [place], [place] [address] (Flores ordonez) 10/12/2059 Hospital Encounter Surgery Jim Hanley MD [facility] SPINE CENTER [place], [place] [address] (Flores ordonez) Scheduled Procedures Name [...] on filedocumented in this encounter Care Teams Marine Designer Relationship Specialty Start Date End Date Ernestina Nowak PA PCP - General 09/03/10 04/05/[address] [place] [address] documented as of this encounter
--- OUTSIDE RECORDS SUMMARY | 2022-07-12 00:59 | XMS_ITS | Encounter Summary ---
:1965 Author Organization [facility] [place] [address] Care Team Providers Name Role Phone Ernestina Nowak Primary Care Provider Encounter Details Date Type Department Care Team Description 07/21/2013 Telephone Pain Management at [facility] Gaby Franco, [place] [address] Social History Tobacco Use Types Packs/Day [...] encounter Miscellaneous Notes Telephone Encounter - Gaby Franco RN - 07/21/2013 12:15 PM EDT Patient called to report that her chest pain is related to a lung infection which she is being treated for. She rescheduled her RF to 08/17/13. It is scheduled as a Right Cervical RF but patient reportsthat she is having left sided pain as well. Informed patient that the doctor will only treat one side at a time and the doctor can assess and evaluate whether or not the side treated will be changed. Pt verbalized understanding. Informed patient that Nursing will call her with pre-procedure instructions as we get closer to the date of her radiofrequency. documented in this encounter Plan of Treatment Upcoming Encounters Date Type Specialty Care Team Description 08/06/2022 Office Visit Plastic Surgery Peña Woodward MD [facility] PLASTIC SURGERY [place] [phone] (Flores ordonez) 08/19/2022 Office Visit Podiatry Tom Titus DPM [place], [place] [address] (Flores ordonez) 09/08/2022 Office Visit Internal Medicine Janay Hay MD [facility] GENERAL INTERNAL MEDICINE [place], [place] [address] (Flores ordonez) 10/12/2059 Hospital Encounter Surgery Jim Hanley MD [facility] SPINE [place] [address] (Wo rk) Scheduled Procedures Name Priority Associated [...] on filedocumented in this encounter Care Teams Land Conservation Specialist Relationship Specialty Start Date End Date Ernestina Nowak PA PCP - General 09/03/10 04/05/15 [address] [place] [address] documented as of this encounter
--- OUTSIDE RECORDS SUMMARY | 2022-07-12 00:59 | XMS_ITS | Encounter Summary ---
:1965 Author Organization [facility] Address [facility] [place] [address] Care Team Providers Name Role Phone Ernestina Nowak Primary Care Provider Reason for Visit Reason Comments Cervicalgia Encounter Details Date Type Department Care Team Description 06/23/2013 Procedure visit Pain Management at [facility] Aracelis Davis MD [address] [place] [address] Cervicalgia [facility] Aracelis Howell MD [facility] [place] [address] [place] [address] Social History Tobacco Use Types Packs/Day [...] Sign Reading Time Taken Comments Blood Pressure 126/83 06/23/2013 1:53 PM EDT Pulse 98 06/23/2013 1:53 PM EDT Temperature - - Respiratory Rate 20 06/23/2013 1:53 PM EDT Oxygen Saturation 98% 06/23/2013 1:53 PM EDT Inhaled Oxygen Concentration - - Weight - - Height - - Body Mass Index - - documented in this encounter Patient Instructions Patient InstructionsGaby Franco RN - 06/23/2013 1:50 PM EDT Pain Management Center Discharge Instructions: You were seen by Dr. Aracleis Davis MD and Kentrell Ahumada MD who performed right cervical medial branch block. [x] You may resume your normal activities:today. You may shower today. DO NOT tub [...] your bladder 4-6 hours after your procedure. You received the following medications: Lidocaine, Omnipaque (contrast dye) and Sensorcaine. During regular business hours, please phone the [...] or proceed to your local emergency department. Gaby Franco RN Special instructions Pain Management Center Post -Procedure Pain Log Patient: Emmanuelle Bynum [id number] It is important for you to keep track of your pain after your procedure that took place 06/23/2013. This information will help your Provider to determine how to help reduce your pain. Today you had a procedure for pain in your neck. Your pain level before the procedure in this area was 8/10. Your pain level immediately after your procedure was 4/10. Time Pain Score Comments 1 hour 2 hours 3 hours 4 hours Please call the nurse in the Pain Management Center a day or two after your procedureand report the information above. She will assess your response to the procedure, and will recommendappropriate follow-up. documented in this encounter Progress Notes Gaby Franco RN - 06/23/2013 1:32 PM EDT Pre-Procedure Screening Questions: 1. Status: No 2. 3. Patient states they have a bulk delivery driver to transport after procedure? Yes 4. Patient taking antibiotics at present? No 5. NPO per Pain Management Center protocol? No 6. 7. Patient diabetic: Yes __ borderline (not treated with medications) _x_ managed with oral medications _x_ managed with injected medications 8. Patient routinely taking anticoagulants ? No Date stopped Current INR Patient Vital Signs documented in Doc Flowsheets associated with this encounter. Patient Discharge Instructions were reviewed with patient and copy provided to patient. documented in this encounter Procedure Notes Kentrell Ahumada MD - 06/23/2013 2:11 PM EDTAssociated Order(s): NERVE BLOCK - CERVICAL/THORACIC Procedure(s): NERVE BLOCK - CERVICAL/THORACIC Pre-Procedure Diagnose(s): Cervicalgia CERVICAL MEDIAL BRANCH BLOCKS Date of Service: 06/23/2013 Patient: Emmanuelle Bynum Provider: KENTRELL AHUMADA MD Emmanuelle Bynum has been referred to the Pain Management Center for cervical medial branch blocks. COMMENTS: Referring provider: Ernie MOJICA Pain location: Right neck and shoulder Pain level: 8/10 Bowel or bladder changes: denies Weakness: denies Numbness: denies Ms. Bynum was interviewed and the medical record reviewed. There were no medical, pharmacologic, radiographic or other structural contraindications to attempting fluoroscopically guided local anesthetic cervical medial branch blocks. Risks and expected side effects as well as potential benefit of the procedure were reviewed with Ms. Bynum, and her voiced concerns addressed. The printed consent form was signed and witnessed. Standard time-out procedure was performed. Ms. Bynum was placed in the prone position on the fluoroscopy table and automated blood pressure cuff and pulse oximeter applied. The skin entry points for approaching the anatomic target points of the segmental medial branches of C4,5,6 right were identified with fluoroscopy and marked. Following thorough Chlorhexadine preparation of the skin and draping and 1% lidocaine infiltration of the skin entry points and subcutaneous tissues, a 25 gauge spinal needle was placed under fluoroscopic guidancedown on to the target point for each respective segmental medial branch. Position was confirmed in A/P and lateral views with 0.25ml of omnipaque 240 injected at each level. At each point 0.5ml 0.5% bupivicaine was injected. Ms. Juniors vital signs were stable throughout the procedure and were as recorded in the docflowsheet by the nursing staff. Follow up plans and appointments were discussed with Ms. Bynum. Ms. Bynum was instructed to keepcareful note of how the usual pain was modified by these injections. Specifically, the patient was asked to keep a pain diary for the next 24 hours using a numeric pain scale of 0-10 and report these results at the follow-up visit. Post procedure instruction was given as documented in the nursing documentation and having met discharge criteria, she was discharged from the Pain Management Center. COMMENTS: No apparent complications Pain level pre 8, post 4 If criteria met, Ms. Bynum will proceed to cervical radiofrequency, otherwise will follow-up with Ernie MOJICA. CC: YUNIOR ALEX @[email or web address]@ I was the attending physician supervising the fellow or resident in the above care and I was presentwith the resident for the entire procedure. ARACELIS DAVIS MD documented in this encounter Plan of Treatment Upcoming Encounters Date Type Specialty Care Team Description 08/06/2022 Office Visit Plastic Surgery Peña Woodward MD [facility] PLASTIC SURGERY [place] [id number] (Wo rk) 08/19/2022 Office Visit Podiatry Tom Titus DPM [place], [place] [address] (Wo rk) 09/08/2022 Office Visit Internal Medicine Janay Hay MD [facility] GENERAL INTERNAL MEDICINE [place], [place] [address] (Wo rk) 10/12/2059 Hospital Encounter Surgery Jim Hanley MD [facility] SPINE CENTER [place], [place] [address] (Wo josé luis) Scheduled Procedures [...] Name Priority Date/Time Associated Diagnosis Comme nts NERVE BLOCK - Routine 06/28/2013 3:20 PM Cervicalgia Results for this CERVICAL/THORACIC EDT procedure are in the results section. FILM LIBRARY Routine 06/23/2013 1:30 PM Results f or this STORAGE ONLY PAIN EDT procedure are in [facility] the results section. documented in this encounter Results NERVE BLOCK - CERVICAL/THORACIC (06/28/2013 3:20 PM EDT) Narrative Aracelis Davis MD - 06/28/2013 3:20 P M EDT Aracelis Davis MD ? 06/28/2013 ??3:20 PM CERVICAL MEDIAL BRANCH BLOCKS Date of Service: ??06/23/2013 Patient: ??Emmanuelle Bynum ?? Provider: ??KENTRELL AHUMADA MD Emmanuelleelke Bynum has been referred to the Pain Management Center for cervical medial branch blocks . ?? COMMENTS: Referring provider: ??Ernie MOJICA Pain location: ??Right neck and shoulder Pain level: ??8/10 Bowel or bladder changes: denies Weakness: ??denies Numbness: denies Ms. Bynum was interviewed and [facility]. ?? There were no medical, pharmacologic, ra diographic or other structural contraindications to attempti ng fluoroscopically guided local anesthetic cervical medial branch blocks. ??Risks and expected side effects as well as potenti al benefit of the procedure were reviewed with Ms. Bynum , and her voiced concerns addressed. ??The printed consent form wa s signed and witnessed. ?? Standard time-out procedure was performe d. Ms. Bynum was placed in the prone posi tion on the fluoroscopy table and automated blood pressure cuff and pulse oximeter applied. ??The skin entry points for chelle roaching the anatomic target points of the segmental medial br anches of ??C4,5,6 right were identified with fluoroscopy and vivi floyd. ??Following thorough Chlorhexadine preparation of the skin an d draping and 1% lidocaine infiltration of the skin entry points and subcutaneous tissues, a 25 gauge spinal needle was pl aced under fluoroscopic guidance down on to the target point for each respective segmental medial branch. Position was co nfirmed in A/P and lateral views with 0.25ml of omnipaque 2 40 injected at each level. At each point 0.5ml 0.5% bupivica ine was injected. ?? Ms. Bynum's vital signs were stable th roughout the procedure and were as recorded in the docflowsheet by the nursing staff. Follow up plans and appointments were di scussed with Ms. Bynum. Ms. Bynum was instructed to keep care ful note of how the usual pain was modified by these injections. ? ?Specifically, the patient was asked to keep a pain diary for the n ext 24 hours using a numeric pain scale of 0-10 and report th tal results at the follow-up visit. ??Post procedure instru ction was given as documented in the nursing documentation and having met discharge criteria, she was [facility]. COMMENTS: No apparent complications Pain level pre 8, post 4 If criteria met, ??Ms. Bynum will proc eed to cervical radiofrequency, otherwise will follow-up with Ernie MOJICA. CC: YUNIOR ALEX @[email or web address]@ I was the attending physician supervisin g the fellow or resident in the above care and I was present with the resident for the entire procedure. ARACELIS DAVIS MD Procedure Note Kentrell Ahumada MD - 06/23/2013 2:11 PM EDT CERVICAL MEDIAL BRANCH BLOCKS Date of Service: 06/23/2013 Patient: Emmanuelle Bynum 8-8 Provider: KENTRELL AHUMADA MD Emmanuelle Bynum has been referred to the Pain Management Center for cervical medial branch blocks. COMMENTS: Referring provider: Ernie MOJICA Pain location: Right neck and shoulder Pain level: 810 Bowel or bladder changes: denies Weakness: denies Numbness: denies Ms. Bynum was interviewed and the medi estuardo record reviewed. There were no medical, pharmacologic, radiographic or other structural contraindications to attempting fluoroscopically guided local anesthetic cervical medial branch blocks. Risks and expected side effects as well as potential benefit of the procedure were reviewed with Ms. Bynum, and her voiced concerns addressed. The printed consent form was signed and witnessed. Standard time-out procedure w as performed. Ms. Bynum was placed in the prone posi tion on the fluoroscopy table and automated blood pressure cuff and pulse oximeter applied. The skin entry points for approaching the anatomic target points of the segmental medial branches of C4,5,6 right were identified with fluoroscopy and marked. Following thorough Chlorhexadine preparation of the skin and draping and 1% lidocaine infiltration of the skin entry points and subcutaneous tissues, a 25 gauge spinal needle was pl aced under fluoroscopic guidance down on to the target point for each respective segmental medial branch. Position was confirmed in A/P and lateral views with 0.25ml of omnipaque 240 injected at each level. At each poin t 0.5ml 0.5% bupivicaine was injected. Ms. Bynum's vital signs were stable th roughout the procedure and were as recorded in the docflowsheet by the nursing staff. Follow up plans and appointments were di scussed with Ms. Bynum. Ms. Bynum was instructed to keep careful note of how the usual pain was modified by these injections. Specifically, the patient was asked to keep a pain diary for the next 24 hours using a numeric pain scale of 0-10 and report these results at the follow-up visit. Post procedure instruction was given as documented in the nursing documentation and having met discharge criteria, she was discharged f rom the Pain Management Center. COMMENTS: No apparent complications Pain level pre 8, post 4 If criteria met, Ms. Bynum will procee d to cervical radiofrequency, otherwise will follow-up with Ernie MOJICA. CC: YUNIOR ALEX @[email or web address]@ I was the attending physician supervisin g the fellow or resident in the above care and I was present with the resident for the entire procedure. ARACELIS DAVIS MD Aracelis Davis MD PROCEDURE/MINOR SURGICAL ORD ERABLES Film Library-storage only pain clinic C-arm (06/23/2013 1:30 PM EDT) Specimen (Source) Anatomical Collection Method Collection Time Re ceived Time Location / / Volume Laterality 06/23/2013 1:30 PM EDT Narrative [facility] - 06/07/2014 11:30 AM EDT This is a non-reportable exam. Procedure Note Chandler Gamble - 06/07/2014Formatti ng of this note might be different from the original. This is a non-reportable exam. Aracelis Davis MD IMG FILM LIBRARY ORDERABLES Performing Organization Address City/State/ZIP Code Phon e Number [facility] [address] [place] [address] documented in this encounter Visit Diagnoses Diagnosis Cervicalgia documented in this encounter Administered Medications Inactive Administered Medications - up to 3 most recent administrations Medication Order MAR Action Action Date Dose Rate Site BUpivacaine (PF) (MARCAINE) 0.5 % Given 06/23/2013 2:30 PM EDT 1 5 mg (5 mg/mL) injection 50 mg 50 mg (10 mL), Subcutaneous, ONCE, 1 dose, On [place] 06/23/13 at 1430, Wasted 20 ml, Routine iohexol (OMNIPAQUE) injection 0.75 mL Given 06/23/2013 2:30 PM EDT 0.75 mLs 0.75 mL, Epidural, ONCE, 1 dose, On [place] 06/23/13 at 1430, 49.25 mL wasted, Routine documented in this encounter Care Teams Java Lead Engineer Relationship Specialty Start Date End Date Ernestina Nowak PA PCP - General 09/03/10 04/05/15 [address] [place] [address] documented as of this encounter
--- OUTSIDE RECORDS SUMMARY | 2022-07-12 00:59 | XMS_ITS | Encounter Summary ---
:1965 Author Organization [facility] Address [place] [id number] Care Team Providers Name Role Phone Ernestina Nowak Primary Care Provider Reason for Referral Consultation (Routine) - Closed Specialty Diagnoses / Procedures Referred By Contact Refer red To Contact Neurology Diagnoses Cervical radicular pain Radha Manuel, SHE[facility] [address] [facility] [place] [address] [place] [address] Referral ID Status Reason Start Date Expiration Date Visits V isits Requested Authorized [id number] Closed Consult, 04/25/2014 10/22/2014 1 1 Test & Treat Reason for Visit Reason Comments Neck Pain right arm Encounter Details Date Type Department Care Team Description 04/25/2014 Office Visit Spine Center at [facility], Cervica l radicular [employer] SALES DONOR RECRUITMENT REPRESENTATIVE pain (Primary Dx) [facility] [place] [place] [address] [place] [address] [phone] Social History Tobacco Use Types Packs/Day Years [...] - Weight 93 kg (205 lb) 04/25/2014 9:53 AM EDT Height 165.1 cm (5' 5) 04/25/2014 9:53 AM EDT Body Mass Index 34.11 04/25/2014 9:53 AM EDT documented in this encounter Progress Notes Radha Manuel, SALES DONOR RECRUITMENT REPRESENTATIVE - 04/25/2014 10:36 AM EDT CHIEF COMPLAINT: The patient has chronic arm pain on the right, neck pain, and left arm pain. Her neck and right arm pain have been chronic for many years and she has been seen by a number of providers here in our pain clinic as well as in the spine center by Mr. Garzon in the past. She has had cervical epidural steroid injections which help her arm symptoms as well as her neck. She had a cervical medial branch block and while it did help and give her relief and she is scheduled to have a radiofrequency, it was extremely painful and she was not sure she wanted to go forward with the radiofrequency. She also has Botox injections for the headaches that she gets. She rates her symptoms in her left arm 5.5 on a scale of 10. These started about around eight months ago. Her right arm symptoms are greater than or equal to 7 as are her neck. The symptoms go down into the forearm and into the middle fingers. They are not as severe on the left as the right, but they are present on both and there is numbness associated with both and she drops things. She has been better with epidurals and medication and worse with standing, walking, or lifting. She does not sleep well at night and she has difficulty with balance or fine motor skills. She tries to walk daily for 45 minutes a day. REVIEW OF SYSTEMS: Her review of systems is positive for GERD, positive for unplanned 52-pound weight loss over the last four months. No bowel or bladder issues. She does have vertigo, headaches, shortness of breath, or chest pain. She is currently being seen at a pain clinic in [place] where she has her injection scheduled and she also is prescribed Percocet and OxyContin there. SOCIAL HISTORY: She is unemployed and disabled secondary to mental health issues. She does not use alcohol, but has about a 22-pahq-kmuq history of smoking. MEDICATIONS: Her medications were updated. ALLERGIES: HER ALLERGIES WERE UPDATED. PAST MEDICAL HISTORY: Chronic neck pain, hemangioma, dermatofibroma, myopia, seborrheic keratosis, diabetes type 2, MGD, dry eyes, carpal tunnel, elbow pain, leukocytosis, hypothyroidism, depression and anxiety, GERD, sleep apnea, chronic migraine without aura. PHYSICAL EXAMINATION:. This is an overweight, right hand dominant female with level shoulders, hips, and knees. She is nontender to palpation. Her shoulder range of motion is full, but she does have pain particularly with end range motion. Her tandem walking is mildly unbalanced. Her cervical range of motion is full, but she does report crunching. She has no power loss. She does have decreased sensation in the right forearm and hand and they are prickly to touch. Reflexes are symmetrical at the biceps, triceps, brachioradialis, patella, Achilles; they are all normal reflexes. There is no Mili, no clonus, no Spurling's and Babinski with downgoing toes. She has palpable distal pulses. Her old MRI was not able to be visualized in the system; however, it does appear that there is bilateral foraminal narrowing at C5-C6 and C6-C7. This is on the basis of the report. ASSESSMENT: She has chronic neck pain and symptoms bilaterally in a C7 distribution. PLAN: I reviewed Mr. Garzon's note and his plan was to have a nerve conduction study ordered and potentially have her see a surgeon or potentially have her have a selective nerve root block to see if that alleviated her symptoms and then have her see a surgeon. She now has new symptoms in the left hand that has occurred since she saw Mr. Garzon last, so I am going to re-order a new cervical MRI and an EMG and nerve conduction study of the upper extremities to see if there is evidence of cervical nerve root impingement. If so, I would make a referral to a surgeon. In the meantime, she is also going to have her cervical epidural steroid injection that is already scheduled and I think that is reasonable. We will hold off on the radiofrequency at the present time because I think it is likely that the epidural will help both her arm and her neck symptoms as they have in the past. All questions were answered. I would like to see her back after her studies and I would need 40 minutes to review both of them. documented in this encounter Plan of Treatment Upcoming Encounters Date Type Specialty Care Team Description 08/06/2022 Office Visit Plastic Surgery Peña Woodward MD [facility] PLASTIC SURGERY [place], [place] [address] (Wo rk) 08/19/2022 Office Visit Podiatry Tom Titus DPM [facility] [place] [address] (Wo rk) 09/08/2022 Office Visit Internal Medicine Janay Hay MD [facility] GENERAL INTERNAL MEDICINE [place], [place] [address] (Wo rk) 10/12/2059 Hospital Encounter Surgery Jim Hanley MD [facility] SPINE CENTER [place], [place] [address] (Wo rk) Scheduled Procedures Name [...] S chedule Referral to Outpatient Referral Routine Cervical radicular Or dered: Neurology pain 04/25/2014 documented as of this encounter Visit Diagnoses Diagnosis Cervical radicular pain - Primary Brachial neuritis or radiculitis nos documented in this encounter Care Teams Disposition Clerk Relationship Specialty Start Date End Date Ernestina Nowak PA PCP - General 09/03/10 04/05/15 [address] [place] [address] documented as of this encounter
--- OUTSIDE RECORDS SUMMARY | 2022-07-12 00:59 | XMS_ITS | Encounter Summary ---
:1965 Author Organization [facility] Address [facility] [place] [address] Care Team Providers Name Role Phone Ernestina Nowak Primary Care Provider Encounter Details Date Type Department Care Team Description 01/30/2014 Follow-Up Neurology at [facility] Josue Fuentes MD Chronic migraine [facility] wit hout aura ([address]) [place] [address] NEUROLOGY DEPT. [phone] [place] [id number] (Wo rk) Social History Tobacco Use Types [...] Sign Reading Time Taken Comments Blood Pressure 122/80 01/30/2014 8:23 AM EDT Pulse 86 01/30/2014 8:23 AM EDT Temperature - - Respiratory Rate - - Oxygen Saturation - - Inhaled Oxygen Concentration - - Weight 96.6 kg (213 lb) 01/30/2014 8:23 AM EDT Height 165.1 cm (5' 5) 01/30/2014 8:23 AM EDT Body Mass Index 35.45 01/30/2014 8:23 AM EDT documented in this encounter Progress Notes Josue Fuentes MD - 01/30/2014 8:56 AM EDT Emmanuelle feels that Botox had reduced the frequency of her severe HAs but pain has flared since she has not received it for a lengthy interval. Her cervical disc disease and TMD do affect HAs she thinks. Her rescue med for [...] w/u for both has been negative. She isstill smoking, but less. Nerve blocks I did in September were helpful in terms of both headache andneck pain. She thinks this is something we should repeat in the future if necessary. HPI - Nausea, visual scotomata and scintillations, [...] infections followed by urologist Dr. Hernandez in [place]. 2. GERD 3. Asthma (uses inhaler only [...] units divided between 2 sites in the sausage cutter muscles, 5 units into 1 site in [...] Woodward MD [facility] PLASTIC SURGERY [place], [place] [address] (Flores ordonez) 08/19/2022 Office Visit Podiatry Tom Titus DPM [place], [place] [address] (Flores ordonez) 09/08/2022 Office Visit Internal Medicine Janay Hay MD [facility] GENERAL INTERNAL MEDICINE [place], [place] [address] (Wo rk) 10/12/2059 Hospital Encounter Surgery Jim Hanley MD [facility] SPINE CENTER [place], [place] [address] (Wo rk) Scheduled Procedures Name [...] Site botulinum toxin type A (BOTOX) Given 01/30/2014 9:30 AM EDT 155 Units injection 155 Units 155 Units, Intramuscular, ONCE, 1 dose, On Thu01/30/14 at 0930, Routine documented in this encounter Care Teams Irish Moss Operator Relationship Specialty Start Date End Date Ernestina Nowak PA PCP - General 09/03/10 04/05/15 [address] [place] [address] documented as of this encounter
--- OUTSIDE RECORDS SUMMARY | 2022-07-12 00:59 | XMS_ITS | Encounter Summary ---
:1965 Author Organization [facility] Address [address] [place] [address] Care Team Providers Name Role Phone Ernestina Nowak Primary Care Provider Reason for Visit Reason Comments Psoriasis Needs refills Encounter Details Date Type Department Care Team Description 01/19/2014 Follow-Up Dermatology at Jacob Guevara soriasis; Karen IIIMD Bustos; [address] [facility] Scalp psoriasis; [place] [address] Spider veins - lower legs; [phone] AMARI Hemangioma - le ft shoulder RD-[facility] [place], [place] [address] (Wo rk) Social History Tobacco [...] documented as of this encounter Progress Notes Edwige Gore LPN - 01/19/2014 12:57 PM EDT DERMATOLOGY ESTABLISHED PATIENT CLINIC NOTE Date of service: 01/19/2014 Emmanuelle Bynum : 1965 Provider: Jacob Blair MD PROBLEM: SKIN HISTORY: Acc #: [id number] Pt. Col Date: 08/03/2012 /Sex: 1965,(46 years),Female Rec Date: 08/03/2012 LOC: 4M ---Pathologic Diagnosis--- A - Skin, left forehead, shave biopsy: Compound nevus, involving the deep biopsy edge. B - Skin, left jawline, shave biopsy: Intradermal nevus, involving the deep biopsy edges. Seborrheic keratoses Psoriaisis HPI Emmanuelle Bynum is a 48 y.o. year old female. Here in follow up for psoriasis on the nape of neck. She had controlled it well with clobetasol solution for 1-2 weeks when it flared and then taclonex on weekends for maintenance. She has been out of Clobetasol and Taclonex for over one month and has gotten worse. When she has her topicals her psoriasis is well controlled. She has a spot on her left shoulder that has changed in size and color. She would like a refill of Eflornithine 13.9 % cream. ADR: No Known Allergies Current Outpatient Prescriptions on File Prior to Visit Medication Sig Dispense Refill ??? clobetasol (TEMOVATE) 0.05 % external solution Apply topically 2 times a day for worse areas of scalp psoriasis for 2 weeks only 50 mL 0 ??? Betamethasone-Calcipotriene (TACLONEX SCALP) 0.005-0.064 % Susp apply topically to scalp 2-3 times at night for maintenance of psoriasis 60 g 2 ??? OXYcodone-acetaminophen (PERCOCET) 7.5-325 mg per tablet Take 1 tablet by mouth 3 times daily. ??? OXYcodone 15 mg Tb12 Take 15 mg by mouth every 12 hours. ??? SUMAtriptan succinate (SUMAVEL DOSEPRO) 6 mg/0.5 [...] 3 times daily. 90 capsule 5 ??? Eflornithine 13.9 % Crea Apply topically 2 times daily. For excessive facial hair 30 g 2 ??? metFORMIN (GLUCOPHAGE) 500 mg tablet Take 500 mg by mouth 2 times daily (with meals). ??? lisinopril (PRINIVIL;ZESTRIL) 10 mg tablet Take 10 mg by mouth daily. ??? glyBURIDE (DIABETA) 5 mg tablet Take 10 mg by mouth 2 times daily (with meals). ??? augmented betamethasone dipropionate (DIPROLENE-AF) 0.05 % ointment Apply topically 2 times daily. 60 g 1 ??? aripiprazole (ABILIFY) 30 mg tablet Take by mouth daily. ??? esomeprazole (NEXIUM) 40 mg capsule Take 40 mg by mouth 2 times daily. Patient Active Problem List Diagnosis Code ??? [...] mellitus 250.00 ??? MGD (meibomian gland dysfunction) 374.89 ??? Dry eyes 375.15 ??? Seborrheic keratosis, inflamed 702.11 ??? Irritated nevus of face 216.3 ??? Myopia with astigmatism and presbyopia 367.1, 367.20, 367.4 ??? Lesion of skin of face 709.9 ??? Dermatofibroma 216.9 ??? Accessory skin tags 757.39 ??? Chronic neck pain 723.1, 338.29 ROS General: feeling well Skin: denies other skin complaints EXAM General: NAD, pleasant, cooperative Skin: Significant skin findings: A. Erythematous scaling 3 cm patch, nape of the neck B. 1 cm hemangioma left shoulder. She is concerned as she thinks this is getting larger- and wants to have it lasered. C. Spider veins, legs- she is ashamed to wear shorts and wants them treated. ASSESSMENT/PLAN: A. Psoriasis on the nape of the neck is doing well, but she needs a refill of taclonex giana to use 2-3 times a week for use on psoriasis at the nape of the neck. We also refilled Clobetasol for use on recalcitrant lesions- she will use it on worse areas for no more than 2 weeks at a time. B. Hemangioma left shoulder, I discussed this condition with the patient. I let her know that this is a cosmetic procedure. She would like to have a consultation with Dr. Aj to get his opinion about treatment. C. Spider veins, She is interested in a consultation with Dr. Aj for Sclerotherapy Refill: Eflornithine 13.9 % cream, apply 2 times daily for excessive facial hair. Follow up in one year, sooner if problems arise I am documenting this encounter acting as the scribe for and in the presence of Dr. Blair.: EDWIGE GORE LPN I performed the above scribed service and agree with the accuracy of the documentation in this encounter. Jacob Blair MD Section of Dermatology [facility] documented in this encounter Plan of Treatment Upcoming Encounters Date Type Specialty Care Team Description 08/06/2022 Office Visit Plastic Surgery Peña Woodward MD [facility] PLASTIC SURGERY [place] [id number] ( josé luis) 08/19/2022 Office Visit Podiatry Tom Titus DPM [place], [place] [address] (Flores ordonez) 09/08/2022 Office Visit Internal Medicine Janay Hay MD [facility] GENERAL INTERNAL MEDICINE [place], [place] [address] (Flores ordonez) 10/12/2059 Hospital Encounter Surgery Jim Hanley MD [facility] SPINE CENTER [place], [place] [address] (Flores ordonez) Scheduled Procedures [...] encounter Visit Diagnoses Diagnosis Psoriasis Other psoriasis Hirsutism Scalp psoriasis Other psoriasis Spider veins - lower legs Nevus, non-neoplastic Hemangioma - left shoulder Hemangioma NOS documented in this encounter Care Teams Auto Tech Relationship Specialty Start Date End Date Ernestina Nowak PA PCP - General 09/03/10 04/05/15 [address] [place] [address] documented as of this encounter
--- OUTSIDE RECORDS SUMMARY | 2022-07-12 00:59 | XMS_ITS | Encounter Summary ---
:1965 Author Organization [facility] [place] [address] Care Team Providers Name Role Phone Ernestina Nowak Primary Care Provider Reason for Visit Reason Onset Date Comments Medication Refill 06/20/2013 Encounter Details Date Type Department Care Team Description 06/20/2013 Refill Dermatology at Kristin Jacob Blair soriasis (Primary Dx) Karen GANNON MD [address] [place] [address] [facility] [place], [place] [address] (Wo rk) Social History Tobacco [...] Office Visit Plastic Surgery Pñea Woodward MD [facility] PLASTIC SURGERY [place] [id number] ([facility]) 08/19/2022 Office Visit Podiatry Tom Titus DPM [place] [id number] ([facility]) 09/08/2022 Office Visit Internal Medicine Janay Hay MD [facility] GENERAL INTERNAL MEDICINE [place], [place] [address] ([facility]) 10/12/2059 Hospital Encounter Surgery Jim Hanley MD [facility] SPINE CENTER [place], [place] [address] ([facility]) Scheduled Procedures Name Priority Associated Diagnoses [...] psoriasis documented in this encounter Care Teams Lock And Dam Repairer Relationship Specialty Start Date End Date Ernestina Nowak PA PCP - General 09/03/10 04/05/15 [address] [place] [address] documented as of this encounter
--- OUTSIDE RECORDS SUMMARY | 2022-07-12 00:59 | XMS_ITS | Encounter Summary ---
:1965 Author Organization [facility] Address [facility] [place] [address] Care Team Providers Name Role Phone Ernestina Nowak Primary Care Provider Reason for Visit Reason Comments Diabetes IDDM. BSL 199 x this AM, sta ble per pt. Last A1C unknown. Encounter Details Date Type Department Care Team Description 07/12/2013 Follow-Up Ophthalmology at [facility] Payal Gunter Type 2 diabetes mellitus; [facility] Kevin Styles, OD Dry eyes; [place] [address] [facility] MGD (meibomian gland dysfunc tion); [phone] Myopia with astigmatism and presbyopia OPHTHALMOLOGY DEPT. [place], [place] [address] Social History Tobacco Use Types [...] encounter Progress Notes Payal Erwin, ERIC - 07/12/2013 11:21 AM EDT Emmanuelle Bynum is a 47 y.o. female who had a chief complaint of Diabetes. No diabetic retinopathy. Hyperopic Rx shift. Eyes mostly comfortable with current regimen. Assessment: Encounter Diagnoses Name Primary? Type 2 diabetes mellitus ??? Dry eyes ??? MGD (meibomian gland dysfunction) ??? Myopia with astigmatism and presbyopia Plan: 1)Refractive Error - MRx given to patient. 2)DM - pt ed re: importance of good bs control and yearly eye exam 3)continue Restasis, lid hygiene, ATs and AT gloria Follow up: CEE 1 year. Eyeglass Final Rx Sphere Cylinder [place] Add Right -0.75 +0.25 100 +1.75 Left -1.25 +0.50 055 +1.75 Expiration Date: 07/13/2015 documented in this encounter Plan of Treatment Upcoming Encounters Date Type Specialty Care Team Description 08/06/2022 Office Visit Plastic Surgery Peña Woodward MD [facility] PLASTIC SURGERY [place], [place] [address] (Wo rk) 08/19/2022 Office Visit Podiatry Tom Titus DPM [facility] [address]IVE [place], [place] [address] (Wo rk) 09/08/2022 Office Visit Internal Medicine Janay Hay MD [facility] GENERAL INTERNAL MEDICINE [place], [place] [address] (Wo rk) 10/12/2059 Hospital Encounter Surgery Jim Hanley MD [facility] SPINE CENTER [place], [place] [address] (Wo rk) Scheduled Procedures Name [...] of complication, not stated as uncontrolled Dry eyes Tear film insufficiency, unspecified MGD (meibomian gland dysfunction) Other disorders of eyelid Myopia with astigmatism and presbyopia Myopia documented in this encounter Care Teams Communications Engineer Relationship Specialty Start Date End Date Ernestina Nowak PA PCP - General 09/03/10 04/05/15 [address] [place] [address] documented as of this encounter
--- OUTSIDE RECORDS SUMMARY | 2022-07-12 00:59 | XMS_ITS | Encounter Summary ---
:1965 Author Organization [facility] [address] Care Team Providers Name Role Phone Ernestina Nowak Primary Care Provider Encounter Details Date Type Department Care Team Description 02/14/2014 [place]Up [place] [facility] [place], Chronic migraine [facility] [address] (Primary Dx) [place] [address] DR [phone] NEUR[address] DEPT. [place], [place] [address] Social History Tobacco Use Types [...] - Inhaled Oxygen Concentration - - Weight - - Height 165.1 cm (5' 5) 02/14/2014 12:49 PM EDT Body Mass Index - - documented in this encounter Progress Notes Charlie Flor APRN - 02/15/2014 10:15 AM EDT Patient seen by Dr. Fuentes. I observed TPI's. documented in this encounter Plan of Treatment Upcoming Encounters Date Type Specialty Care Team Description 08/06/2022 Office Visit Plastic Surgery Peña Woodward MD [facility] PLASTIC SURGERY [place] [address] (Flores ordonez) 08/19/2022 Office Visit Podiatry Tom Titus DPM [place], [place] [address] (Flores ordonez) 09/08/2022 Office Visit Internal Medicine Janay Hay MD [facility] GENERAL INTERNAL MEDICINE [place], [place] [address] (Flores ordonez) 10/12/2059 Hospital Encounter Surgery Jim Hanley MD [facility] SPINE [place], [place] [address] (Wo rk) Scheduled Procedures Name [...] migrainosus documented in this encounter Care Teams Felt Hanger Relationship Specialty Start Date End Date Ernestina Nowak PA PCP - General 09/03/10 04/05/15 [address] [place] [address] documented as of this encounter
--- OUTSIDE RECORDS SUMMARY | 2022-07-12 00:59 | XMS_ITS | Encounter Summary ---
:1965 Author Organization [facility] [place] [address] Care Team Providers Name Role Phone Ernestina Nowak Primary Care Provider Encounter Details Date Type Department Care Team Description 06/20/2013 Telephone Pain Management at Mehreen Maldonado, RN [facility] [place] [address] Social History Tobacco Use Types Packs/Day [...] Telephone Encounter - Mehreen Ramirez, RN - 06/20/2013 1:54 PM EDT Emmanuelle Bynum :1965 Message left: I left a message on answering machine Ms. Bynum at 1:54 PM regarding her upcoming cervical medial branch block with Dr. Aracelis Mcknight MD. Message included the followin. Patient to bring updated list of medications including dosage and reason for taking. 2. Call the Pain Clinic Triage Nurse for procedure instructions. 3. Instructed to arrive at 1300 (30 minutes prior to procedure start time) on 06/23/2013 (date of procedure) with their certified driver examiner. Mehreen Ramirez RN documented in this encounter Plan of Treatment Upcoming Encounters Date Type Specialty Care Team Description 08/06/2022 Office Visit Plastic Surgery Peña Woodward MD [facility] PLASTIC SURGERY [place], [place] [address] (Wo rk) 08/19/2022 Office Visit Podiatry Tom Titus DPM [place], [place] [address] (Flores ordonez) 09/08/2022 Office Visit Internal Medicine Janay Hay MD [facility] GENERAL INTERNAL MEDICINE [place], [place] [address] (Wo rk) 10/12/2059 Hospital Encounter Surgery Jim Hanley MD [facility] SPINE [place], [place] [address] (Wo rk) Scheduled Procedures Name [...] on filedocumented in this encounter Care Teams Final Canoe Inspector Relationship Specialty Start Date End Date Ernestina Nowak PA PCP - General 09/03/10 04/05/15 [address] [place] [address] documented as of this encounter
--- OUTSIDE RECORDS SUMMARY | 2022-07-12 01:00 | XMS_ITS | Encounter Summary ---
:1965 Author Organization [facility] [place] [address] Care Team Providers Name Role Phone Ernestina Nowak Primary Care Provider Reason for Visit Reason Comments Neck Pain Encounter Details Date Type Department Care Team Description 07/05/2012 Telephone Pain Management at Nithya Donovan [facility] [place] [address] Social History Tobacco Use Types Packs/Day [...] this encounter Miscellaneous Notes Telephone Encounter - Nithya Lilly RN - 07/05/2012 10:38 AM EDT Fluoroscopy Procedure Request Procedure Requested: ANGELINA Date(s) of Last Procedure: 05/18/12, 03/05/12, 07/28/11 Did requested procedure relieve pain? _x__ Yes - For how long? First one lasted 6 months, second one2 months, last one 1 month. I told her we could try another, but if it doesn't help longer than the last 2, she should see Dr. Manzanares again in the office for further options. She voiced understanding. Patient taking anticoagulants? __x_ No Changes in usual pain pattern or pertinent recent trauma or surgery? _x__ No, patient transferred to fire support man to make appointment for requested procedure. Patient's questions regarding requested procedure were answered and patient verbalized understanding. Patient knows how to contact the Pain Management Center and understands that they may do so at any time should they have further questions or concerns. documented in this encounter Plan of Treatment Upcoming Encounters Date Type Specialty Care Team Description 08/06/2022 Office Visit Plastic Surgery Peña Woodward MD [facility] PLASTIC SURGERY [place], [place] [address] (Wo rk) 08/19/2022 Office Visit Podiatry Tom Titus DPM [place], [place] [address] (Wo rk) 09/08/2022 Office Visit Internal Medicine Janay Hay MD [facility] GENERAL INTERNAL MEDICINE [place], [place] [address] (Wo rk) 10/12/2059 Hospital Encounter Surgery Jim Hanley MD [facility] SPINE CENTER [place], [place] [address] (Wo rk) Scheduled Procedures [...] on filedocumented in this encounter Care Teams Aerodynamics Teacher Relationship Specialty Start Date End Date Ernestina Nowak PA PCP - General 09/03/10 04/05/15 [address] [place] [address] documented as of this encounter
--- OUTSIDE RECORDS SUMMARY | 2022-07-12 01:00 | XMS_ITS | Encounter Summary ---
:1965 Author Organization [facility] Address [facility] [place] [address] Care Team Providers Name Role Phone Ernestina Nowak Primary Care Provider Encounter Details Date Type Department Care Team Description 12/14/2012 Office Visit Neurology at [facility] Josue Fuentes MD Chronic migraine [facility] wit hout aura (Primary Drive DR Buzz) [place], [place] NEUROLOGY DEPT. [address] [place] [address] [phone] Social History Tobacco Use Types Packs/Day Years Used Date Current Every Day Smoker Cigarettes 0.25 13 Smokeless Tobacco: Never Used Alcohol Use [...] Sign Reading Time Taken Comments Blood Pressure 123/74 12/14/2012 2:48 PM EST Pulse 108 12/14/2012 2:48 PM EST Temperature - - Respiratory Rate - - Oxygen Saturation - - Inhaled Oxygen Concentration - - Weight 103 kg (227 lb) 12/14/2012 2:48 PM EST Height 165.1 cm (5' 5) 12/14/2012 2:48 PM EST Body Mass Index 37.77 12/14/2012 2:48 PM EST documented in this encounter Progress Notes Josue Fuentes MD - 12/14/2012 2:53 PM EST Emmanuelle (again late for her appt) feels that Botox has reduced the frequency form nearly daily to 3-4 per mo. Severity is still high but cervical disc disease and TMD are exacerbating HAs she thinks. Her rescue med for any of her pain is now Naproxen sodium and Robaxin; next she uses Sumavel or Vicodin - 30/mo. She now on Abilify and Prozac as her antidepressants. Neck pain seems to relate to cervical disc and osteopphytic disease. Dr Yoon did not recommend surgery at the time she saw him in July 2010. Cervical epidural steroid injections have helped, in [facility] here. She is also having lumbar pain and lumbar epidurals are being considered. She underwent some testing for leukemia since WBCs have remained elevated and she was also being evaluated for thyroid cancer - all w/u was negative. Both w/u's were negative. She is still smoking, but less. HPI - Nausea, visual scotomata and scintillations, [...] infections followed by urologist Dr. Hernandez in [place]. 2. GERD 3. Asthma (uses inhaler only when she is ill) 4. Hysterectomy for uterine fibroids 5. Two C-sections 6. Chronic depression - doing well under the care of Psych 7. Cervical arthritis and L shoulder problems for which she is using 8. 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 Probable SEB - sleep study to be done 10. 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 clobetasol (TEMOVATE) 0.05 % external solution Apply topically 2 times a day for worse areas of scalp psoriasis for 2 weeks only 50 mL 2 ??? Betamethasone-Calcipotriene (TACLONEX SCALP) 0.005-0.064 % Susp apply topically to scalp 2-3 times at night for maintenance of psoriasis 60 g 1 ??? methocarbamol (ROBAXIN) 750 mg tablet TAKE 1 TABLET BY MOUTH THREE TIMES DAILY NEEDED 60 tablet 1 ??? hydroCODone-acetaminophen (VICODIN) 5-500 mg per tablet Take 1 tablet by mouth 2 times daily as needed for Pain. 20 tablet 2 ??? gabapentin (NEURONTIN) 300 mg capsule Take 1 capsule by mouth 3 times daily. 90 capsule 5 ??? gabapentin (NEURONTIN) 600 mg tablet Take 1 tablet by mouth 3 times daily. 90 tablet 5 ??? naproxen sodium (ANAPROX) 550 mg tablet Take 1 tablet by mouth 2 times daily as needed. 30 tablet 5 ??? sumatriptan succinate (SUMAVEL DOSEPRO) 6 mg/0.5 mL NfIj Inject 6 mg subcutaneously 2 times daily as needed. As needed 12 each 2 ??? Eflornithine 13.9 % Crea Apply topically 2 times daily. For excessive facial hair 30 g 2 ??? TACLONEX SCALP 0.005-0.064 % Susp APPLY TOPICALLY TO SCALP 2 TO 3 TIMES AT NIGHT FOR MAINTENANCEON WEEKENDS 60 g 2 ??? pioglitazone (ACTOS) 30 mg tablet Take 30 mg by mouth daily. ??? metFORMIN (GLUCOPHAGE) 500 mg tablet Take 500 mg by mouth 2 times daily (with meals). ??? insulin detemir (LEVEMIR FLEXPEN) 100 unit/mL (3 mL) pen injection Inject 70 Units subcutaneously every morning. Take 2-8 units as needed depending on blood glucose. ??? lisinopril (PRINIVIL;ZESTRIL) 10 mg tablet Take 10 mg by mouth daily. ??? glyBURIDE (DIABETA) 5 mg tablet Take 10 mg by mouth 2 times daily (with meals). ??? augmented betamethasone dipropionate (DIPROLENE-AF) 0.05 % ointment Apply topically 2 times daily. 60 g 1 ??? aripiprazole (ABILIFY) 30 mg tablet Take 30 mg by mouth daily. ??? cyclobenzaprine (FLEXERIL) 10 mg tablet Take 10 mg by mouth 3 times daily as needed. ??? esomeprazole (NEXIUM) 40 mg capsule Take 40 mg by mouth daily. 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 Head and [...] Vicodin for tx of acute migraine; Botox I prescribed #20 Vicodin prescribed with 2 refills (q1mo). She knows that I will not be able to continue prescribing if she receives opioids from more than one provider. Potential AE's were discussed at length. CÉSAR blocks may be an option. Consent was obtained and a time-out was [...] sites in the frontalis muscle, 10 units in the R and L audit reviewer muscles, 5 units into 1 site in the procerus muscle, 40 units divided between 8 sites in the temporalis muscles, 30 units divided between 6 sites in the suboccipital region, 20 units divided between 4 sites in the cervical paraspinal musculature, and 30 units divided between 6 sites in the trapezii. Total units used= 155. Total injection sites=31. The patient tolerated the procedure without any immediate complications. Sterile technique was employed. The patient tolerated the procedure well. I noted a number of trigger points particularly in the L paraspinal and trapezius and L SCM. If pain persists in those regions I would be willing to do TP injections. Follow up Botox was arranged for 3 months. documented in this encounter Plan of Treatment Upcoming Encounters Date Type Specialty Care Team Description 08/06/2022 Office Visit Plastic Surgery Peña Woodward MD [facility] PLASTIC SURGERY [place], [place] [address] (Wo josé luis) 08/19/2022 Office Visit Podiatry Tom Titus DPM [place], [place] [address] (Flores ordonez) 09/08/2022 Office Visit Internal Medicine Janay Hay MD [facility] GENERAL INTERNAL MEDICINE [place], [place] [address] (Wo rk) 10/12/2059 Hospital Encounter Surgery Jim Hanley MD [facility] SPINE CENTER [place], [place] [address] (Wo rk) Scheduled Procedures Name [...] Site botulinum toxin type A (BOTOX) Given 12/14/2012 3:15 PM EST 155 Units injection 155 Units 155 Units, Intramuscular, ONCE, 1 dose, On Thu12/14/12 at 1530, Routine documented in this encounter Care Teams Security Lead Relationship Specialty Start Date End Date Ernestina Nowak PA PCP - General 09/03/10 04/05/15 [address] [place] [address] documented as of this encounter
--- OUTSIDE RECORDS SUMMARY | 2022-07-12 01:00 | XMS_ITS | Encounter Summary ---
:1965 Author Organization [facility] Address [address] [place] [address] Care Team Providers Name Role Phone Ernestina Nowak Primary Care Provider Encounter Details Date Type Department Care Team Description 12/06/2012 Telephone Pain Management at David Teixeira MD [facility] [place] [address] PAIN CLINIC [phone] [place], [place] [address] (Wo rk) Social History Tobacco [...] Notes Telephone Encounter - Carmen Gomes - 12/06/2012 9:[address] Armstrong spoke to patient regarding her request for repeat ANGELINA. Patient stated that her last epidural didn't last because she fell and hit her head. Symptoms are similar (Pain is in her neck going into her right arm; second and third finger), but her MRI is over 2.5 years old, we will order a new MRI if MRI is unchanged that we will proceed to ANGELINA Patient requests to have her MRI at [facility]. Patient transferred to scheduling secretaries to schedule MRI and her repeat ANGELINA after MRI. Patient aware that she will need to bring the MRI and report with her to the appointment. Carmen Gomes (scribed for Dr. David Armstrong) documented in this encounter Plan of Treatment Upcoming Encounters Date Type Specialty Care Team Description 08/06/2022 Office Visit Plastic Surgery Peña Woodward MD [facility] PLASTIC SURGERY [place], [place] [address] (Flores ordonez) 08/19/2022 Office Visit Podiatry Tom Titus DPM [place], [place] [address] (Flores ordonez) 09/08/2022 Office Visit Internal Medicine Janay Hay MD [facility] GENERAL INTERNAL MEDICINE [place], [place] [address] (Wo josé luis) 10/12/2059 Hospital Encounter Surgery Jim Hanley MD [facility] SPINE CENTER [place], [place] [address] (Flores ordonez) Scheduled Procedures Name [...] nos documented in this encounter Care Teams Naphtha Washing System Operator Relationship Specialty Start Date End Date Ernestina Nowak PA PCP - General 09/03/10 04/05/15 [address] [place] [address] documented as of this encounter
--- OUTSIDE RECORDS SUMMARY | 2022-07-12 01:00 | XMS_ITS | Encounter Summary ---
:1965 Author Organization [facility] Address [address] [place] [address] Care Team Providers Name Role Phone Ernestina Nowak Primary Care Provider Reason for Visit Reason Onset Date Comments Other 12/15/2012 Encounter Details Date Type Department Care Team Description 12/15/2012 Telephone Neurology at [facility] Josue Fuentes MD [facility] [place] [address] NEUROLOGY DEPT. [phone] [place] [id number] (Wo rk) Social History Tobacco Use Types [...] this encounter Miscellaneous Notes Telephone Encounter - Gilda Cordova LPN - 12/15/2012 4:29 PM EST Clarified Rx with pharmacy. Telephone Encounter - Gillian Stratton - 12/15/2012 3:24 PM EST Augie called from [facility] with a question regarding a prescription for Vicodin. Please call Bill to discuss. documented in this encounter Plan of Treatment Upcoming Encounters Date Type Specialty Care Team Description 08/06/2022 Office Visit Plastic Surgery Peña Woodward MD [facility] PLASTIC SURGERY [place], [place] [address] (Wo rk) 08/19/2022 Office Visit Podiatry Tom Titus DPM [place], [place] [address] (Wo rk) 09/08/2022 Office Visit Internal Medicine Janay Hay MD [facility] GENERAL INTERNAL MEDICINE [place], [place] [address] (Wo rk) 10/12/2059 Hospital Encounter Surgery Jim Hanley MD [facility] SPINE CENTER [place], [place] [address] (Wo rk) Scheduled Procedures Name [...] on filedocumented in this encounter Care Teams Seam Stayer Relationship Specialty Start Date End Date Ernestina Nowak PA PCP - General 09/03/10 04/05/15 [address] [place] [address] documented as of this encounter
--- OUTSIDE RECORDS SUMMARY | 2022-07-12 01:00 | XMS_ITS | Encounter Summary ---
:1965 Author Organization [facility] Address [address] [place] [address] Care Team Providers Name Role Phone Ernestina Nowak Primary Care Provider Reason for Visit Reason Comments Skin Check spot check,nose thigh,knee Encounter Details Date Type Department Care Team Description 12/14/2012 Follow-Up Dermatology at Jacob Guevara eoplasm of unspecified nature of bone, soft tissue, and skin (Primary Dx); Karen GANNON MD Psoriasis; [address] [facility] Scalp psoriasis; [place] [address] Dermatofibroma; [phone] HEATER Lesion of skin of face; RD-DERMATOLGY Accessory skin tags [place], [place] [address] (Wo rk) Social History Tobacco [...] as of this encounter Progress Notes Payal Gore LPN - 12/14/2012 11:11 AM EST DERMATOLOGY ESTABLISHED PATIENT CLINIC NOTE Date of service: 12/14/2012 Joanna Camara : 1965 Provider: Jacob Blair MD PROBLEM: Spot check SKIN HISTORY: Acc #: [id number] Pt. Col Date: 08/03/2012 /Sex: 1965,(46 years),Female Rec Date: 08/03/2012 LOC: 4M ---Pathologic Diagnosis--- A - Skin, left forehead, shave biopsy: Compound nevus, involving the deep biopsy edge. B - Skin, left jawline, shave biopsy: Intradermal nevus, involving the deep biopsy edges. Seborrheic keratoses Psoriaisis HPI Joanna Camara is a 47 y.o. year old female here in follow up for the lesion that was treated with LN 2 at the last visit. She reports the areas treated did not respond to the LN2. She has a lesionon left side of nose that she is concerned with and questionable skin tag in right axilla. She has aspot that comes and goes in the left popliteal fossa, it is painful to touch when it flares, she wonders if it might be a cyst. ADR: Allergies Allergen Reactions ??? Morphine Systemic Itching, Nausea, Dizziness ROS General: feeling well Skin: denies other skin complaints EXAM General: NAD, pleasant, cooperative Skin: Significant skin findings: A. firm papule, centrally raised and sclerotic, peripheral hyperpigmentation. Dimpling with lateral pressure on lateral left thigh B. 2-3 mm firm nodule, left popliteal fossa C.0.2-0.4cm, sessile, flesh-colored papule, right axilla D. 3 mm papule on left nasolabial - increasing in size ASSESSMENT/PLAN: A.Dermatofibroma (DF), reassured. This will not resolve the Liq N2, though it is smaller. B. Probable Cyst vs DF in the popliteal fossa, There is no inflammation today. I have recommended she call the office to be seen when the area is symptomatic and make a more firm diagnosis.. C. Skin Tags, right breast, irritated by bra. I discussed this condition with the patient and explored therapeutic options. I recommended: Sharp removal of skin tags with anesthestia . Approx tags removed. Procedure: Snip removal using scissors. Discussed procedure and expectations including risks and benefits. Verbal consent obtained. The lesion was removed by scissors technique; specimen was not sent to Pathology. D.Enlarging Dermal Nevus, Rule out Dysplasia . I discussed this condition with the patient and explored therapeutic options. I recommended a biopsy for diagnosis. Procedure: Skin biopsy. Location: 1 Discussed indications for procedure and expectations including [...] were reviewed. Follow-up based on pathology results. Her psoriasis on the nape of the neck is doing well, but she needs a refill of taclonex giana to use 2-3 times a week for use on psoriasis at the nape of the neck. We also refilled Clobetasol for use on recalcitrant lesions. Call if areas do not resolve as expected or problems arise. The nature of sun-induced photo-aging and skin cancers is discussed. Sun avoidance, protective clothing, and the use of 30-SPF sunscreens is advised. Observe closely for skin damage/changes, and call if such occurs. Note initiated by: PAYAL GORE LPN Routed to physician for review and changes: Jacob Blair MD Section of Dermatology [facility] documented in this encounter Plan of Treatment Upcoming Encounters Date Type Specialty Care Team Description 08/06/2022 Office Visit Plastic Surgery Peña Woodward MD [facility] PLASTIC SURGERY [place], [place] [address] (Wo rk) 08/19/2022 Office Visit Podiatry Tom Titus DPM [place], [place] [address] (Wo rk) 09/08/2022 Office Visit Internal Medicine Janay Hay MD [facility] GENERAL INTERNAL MEDICINE [place], [place] [address] (Wo rk) 10/12/2059 Hospital Encounter Surgery Jim Hanley MD [facility] SPINE CENTER [place], [place] [address] (Wo rk) Scheduled Procedures Name [...] Name Priority Date/Time Associated Diagnosis Comme nts SURGICAL PATHOLOGY Routine 12/14/2012 3:51 PM Res ults for this REPORT EST procedure are i n the results section. SPECIMEN TO Routine 12/14/2012 11:50 AM Neoplasm of Results for this PATHOLOGY (NON-OR) EST unspecified nature pro cedure are in of bone, soft the results tissue, and skin section. documented in this encounter Results Surgical Pathology Report (12/14/2012 3:51 PM EST) Component Value Ref Test Analysis Performed At [facility] Range Method Time Signature Surgical CERNER Pathology ? [facility] Report ? Provider: ?? JACOB BLAIR III Pt. Name: ?? JOANNA CAMARA ?A ? Acc #: ?[id number] ? Pt. ? Col Date: ?? 12/14/2012 ?/Sex: ?1965,(47 years),Female ? Rec Date: ?? 12/14/2012 ?LOC: ?HDM ? SURGICAL PATHOLOGY ? ---Pathologic Diagnosis--- ? Skin, left nasolabial, shave biopsy: ?Dermal nevus, transected. ? CR-0 ? 12/15/12 ? AJE ? 12/15/12 Verified by: ? Henri MEDINA, Bigg Ac ? Dermatopatholo gist ? (Electronic Si gnature) ? The attending pathologist whose signature appears o n this report has ? reviewed all diagnostic slides and has edited the cyndie ss and/or ? microscopic portion of the report in rendering the fi nal pathologic ? diagnosis. ? ---Microscopic Description--- ? Slides reviewed, microscopic description not recorded . ? ---Gross Description--- ? Labeled/Fixative: ? Labeled with the patient's na me, formalin. ? Qty/Size/Weight: ?Single shave, 0.4 cm, of pin k-lyons skin. ? Sections/Processing: ??Bisected. ??(T1) ??aje/EJR ? ---Clinical Information--- ? Specimen Submitted: ? A - Skin, left nasolabial, shave biopsy (1) ? Clinical History/Diagnosis: ? 3-mm papule; enlarging dermal nevus R/O dysplasia Specimen (Source) Anatomical Collection Method Collection Time Re ceived Time Location / / Volume Laterality 12/14/2012 3:51 PM EST Jacob Blair III, MD PATHOLOGY/CYTOLOGY ORDERABLE S Performing Organization Address City/[facility]/ZIP Code Phon e Number [address] [facility] Specimen to Pathology (NON-OR) (12/14/2012 11:50 AM EST) Specimen Anatomical Collection Method Collection Time Receive d Time (Source) Location / / Volume Laterality AP Specimen 12/14/2012 11:50 12/14/2012 1:17 AM EST PM EST Narrative [facility] - 12/14/2012 1:[address] Specimen requisition ordered. ??Separate Pathology report to follow Jacob Blair III, MD PATHOLOGY/CYTOLOGY ORDERABLE S Performing Organization Address City/[facility] Code Phon e Number [address] [facility] documented in this encounter Visit Diagnoses Diagnosis Neoplasm of unspecified nature of bone, soft tissue, and skin - Primary Psoriasis Other psoriasis Scalp psoriasis Other psoriasis Dermatofibroma Benign neoplasm of skin, site unspecifie d Lesion of skin of face Unspecified disorder of skin and subcuta neous tissue Accessory skin tags Other specified congenital anomaly of sk in documented in this encounter Care Teams Files Supervisor Relationship Specialty Start Date End Date Ernestina Nowak PA PCP - General 09/03/10 04/05/[address] [place] [address] documented as of this encounter
--- OUTSIDE RECORDS SUMMARY | 2022-07-12 01:00 | XMS_ITS | Encounter Summary ---
:1965 Author Organization [facility] Address [address] [place] [address] Care Team Providers Name Role Phone Ernestina Nowak Primary Care Provider Reason for Visit Reason Onset Date Comments Other 04/20/2013 Received information from PCP on medication prescription Encounter Details Date Type Department Care Team Description 04/20/2013 Telephone Spine Center at [facility], Other (Received [facility] information from PCP on [facility] medicatio n Drive prescription) [place] [address] Social History Tobacco Use Types Packs/Day Years [...] this encounter Miscellaneous Notes Telephone Encounter - Roxanna Devries LPN - 04/20/2013 3:51 PM EDT Received call from nurse(Amelia) at PCP office Ernestina Nowak with concerns on recent prescribed Narcotics from [facility]. Amelia states that the patient has been getting monthly refills of Oxycodone. Last refill was on March 24, 2013 prescribed Oxycodone 5 mg #130 1 tablet every 4-6 hrs, prn. No refills. She states that this prescription has been refilled for several months. Patient doesn't have a narcotic contract. I advised her that Dr. Fuentes prescribed Vicodin 5-500 one tablet twice daily, prn 20 tablets with 2 refills yesterday. Ernie Garzon from the Spine Center didn't prescribe any medications during his visit yesterday. Amelia has concerns. I transferred the call to Dr. Fuentes's office. documented in this encounter Plan of Treatment Upcoming Encounters Date Type Specialty Care Team Description 08/06/2022 Office Visit Plastic Surgery Peña Woodwrad MD [facility] PLASTIC SURGERY [place], [place] [address] (Wo rk) 08/19/2022 Office Visit Podiatry Tom Tiuts DPM [place], [place] [address] (Wo rk) 09/08/2022 Office Visit Internal Medicine Janay Hay MD [facility] GENERAL INTERNAL MEDICINE [place], [place] [address] (Wo rk) 10/12/2059 Hospital Encounter Surgery Jim Hanley MD [facility] SPINE CENTER [place], [place] [address] (Wo rk) Scheduled Procedures Name [...] on filedocumented in this encounter Care Teams Crime Scene Investigator Relationship Specialty Start Date End Date Ernestina Nowak PA PCP - General 09/03/10 04/05/15 [address] [place] [address] documented as of this encounter
--- OUTSIDE RECORDS SUMMARY | 2022-07-12 01:00 | XMS_ITS | Encounter Summary ---
:1965 Author Organization [facility] Address [address] [place] [address] Care Team Providers Name Role Phone Ernestina Nowak Primary Care Provider Reason for Visit Reason Comments Skin Check Encounter Details Date Type Department Care Team Description 08/03/2012 Follow-Up Dermatology Jacob Blair Psoriasis; [facility] IIIMD Hirsusin; [facility] Scalp psoriasis; [place] [address] Irritated nevus of face; [phone] Seborrheic keratosis, inflamed [place] [address] (Wo rk) Social History Tobacco Use Types [...] documented as of this encounter Progress Notes Jacob Blair III, MD - 08/03/2012 10:49 AM EDT DERMATOLOGY ESTABLISHED PATIENT CLINIC NOTE Date of service: 08/03/2012 Joanna Camara : 1965 Provider: Jacob Blair MD PROBLEM: spot check SKIN HISTORY: psoriasis HPI Joanna Camara is a 46 y.o. year old female.She has some spots on her leg and face she is concerned about. She has also noted two nevi on the face that are enlarging in ize. ADR: Allergies Allergen Reactions ??? Morphine Systemic Itching, Nausea, Dizziness ROS General: feeling well Skin: denies other skin complaints EXAM General: NAD, pleasant, cooperative Skin: Significant skin findings: A. Multiple 0.3-0.4 mm brown-black papules/plaques with waxy, stuck-on appearance on legs. These itch at times and are irritated. B. Left forehead - 2 mm papule with recent change C. Left jawline - 2 mm papule with recent change These lesions have little pigment, but are subject to irritation and trauma Psoriasis is under good control. She needs refills of Clobetasol scalp giana which she uses for flaresfor 3-5 days and then uses Taclonex scalp giana on weekends for maintenance. Refill authorized for both meds. ASSESSMENT/PLAN: Psoriasis of scalp- doing well. A. Irritated seborrheic keratosis on the legs I discussed this condition with the patient and explored therapeutic options. I recommended liq N2 to the lesions.- she agreed. Procedure(s): Destruction of lesion(s) with cryotherapy. Number: 2 Location: as above Discussed procedure and expectations including risks (including risk of hypopigmentation) and benefits. Verbal consent obtained. Frozen with LN2, 15-30 second thaw time, TWICE. There were no complications; the patient tolerated the procedure well. Post-procedure expectations and wound care were reviewed. Call if not clear in a month B.nevus r/o atypia- left forehead. I discussed this condition with the patient and explored therapeutic options. I recommended a biopsy to ensure the lesion is OK Procedure: Skin biopsy. Location: left forehead Discussed indications for procedure and expectations including [...] reviewed. Follow-up based on pathology results. C. Nevus r/o atypia- left jawline. I discussed this condition with the patient and explored therapeutic options. I recommended a biopsy . Procedure: Skin biopsy. Location: left jawline Discussed indications for procedure and expectations including [...] were reviewed. Follow-up based on pathology results. Call if areas do not resolve as expected or problems arise. Note initiated by: .Akosua Turner LPN Routed to physician for review and changes: Jacob Blair MD Section of Dermatology [facility] documented in this encounter Plan of Treatment Upcoming Encounters Date Type Specialty Care Team Description 08/06/2022 Office Visit Plastic Surgery Peña Woodward MD [facility] PLASTIC SURGERY [place], [place] [address] (Wo rk) 08/19/2022 Office Visit Podiatry Tom Titus DPM [place], [place] [address] (Wo rk) 09/08/2022 Office Visit Internal Medicine Janay Hay MD [facility] GENERAL INTERNAL MEDICINE [place], [place] [address] (Wo rk) 10/12/2059 Hospital Encounter Surgery Jim Hanley MD [facility] DR SPINE CENTER [place], [place] [address] (Wo rk) Scheduled Procedures Name [...] Associated Diagnosis Comme nts SURGICAL PATHOLOGY Routine 08/03/2012 1:48 PM Res ults for this REPORT EDT procedure are i n the results section. SPECIMEN TO Routine 08/03/2012 10:51 AM Psoriasis Results for this PATHOLOGY (NON-OR) EDT procedure are in the results section. documented in this encounter Results SURGICAL PATHOLOGY REPORT (08/03/2012 1:48 PM EDT) Component Value Ref Test Analysis Performed At [facility] gist Range Method Time Signature Surgical CERNER Pathology ? [facility] Report ? Provider: ?? JACOB BLAIR III Pt. Name: ?? JOANNA CAMARA ?A ? Acc #: ?[id number] ? Pt. ? Col Date: ?? 08/03/20 12 ?/Sex: ?1965,(46 years),Female ? Rec Date: ?? 08/03/2012 ?LOC: ?4M ? SURGICAL PATHOLOGY ? ---Pathologic Diagnosis--- ? A - Skin, left forehead, shave biopsy: ? Compound nevus, involving the deep biopsy edge. ? B - Skin, left jawline, shave biopsy: ? Intradermal nevus, involving the deep biopsy ed ges. ? CR-0 ? 08/03/12 ? BJM ? 08/04/12 Verified by: ? Contreras MEDINA, Natalia Lawson. ? Dermatopatholo gist ? (Electronic Si gnature) ? The attending pathologist whose signature appears o n this report has ? reviewed all diagnostic slides and has edited the cyndie ss and/or ? microscopic portion of the report in rendering the fi nal pathologic ? diagnosis. ? ---Microscopic Description--- ? Slides reviewed, microscopic description not recorded . ? ---Gross Description--- ? A - Labeled/Fixative: A Left forehead, formalin. ? Qty/Size/Weight: ?Single papule, 0.3 x 0.1 cm, lyons. ? Sections/Processing: ??(T1) ? B - Labeled/Fixative: B Left jawline, formalin. ? Qty/Size/Weight: ?Single shave, 0.3 cm, lyons. ? Sections/Processing: ??(T1) ??bjm/SNS ? ---Clinical Information--- ? Specimen Submitted: ? A - Skin left forehead, shave (1) ? B - Skin, left jawline, shave (1) ? Clinical History/Diagnosis: ? A - 2 mm papule with recent change / nevus r/o atypia ? B - 2 mm papule with recent change / nevus r/o atypia Specimen (Source) Anatomical Collection Method Collection Time Re ceived Time Location / / Volume Laterality 08/03/2012 1:48 PM EDT Jacob Blair III, MD PATHOLOGY/CYTOLOGY ORDERABLE S Performing Organization Address City/[facility]/ZIP Code Phon e Number [address] RISHABH NOBLES Specimen to Pathology (NON-OR) (08/03/2012 10:51 AM EDT) Specimen Anatomical Collection Method Collection Time Receive d Time (Source) Location / / Volume Laterality AP Specimen 08/03/2012 10:51 08/03/2012 AM EDT 10:57 AM EDT Narrative RISHABH WASHBURNIUM - 08/03/2012 10:57 AM EDT Specimen requisition ordered. ??Separate Pathology report to follow Jacob Blair III, MD PATHOLOGY/CYTOLOGY ORDERABLE S Performing Organization Address City/[facility]/ZIP Code Phon e Number [address] RISHABH NOBLES documented in this encounter Visit Diagnoses Diagnosis Psoriasis Other psoriasis Hirsutism Scalp psoriasis Other psoriasis Irritated nevus of face Benign neoplasm of skin of other and uns pecified parts of face Seborrheic keratosis, inflamed Inflamed seborrheic keratosis documented in this encounter Care Teams Casting Room Operator Relationship Specialty Start Date End Date Ernestina Nowak PA PCP - General 09/03/10 04/05/15 [address] [place] [address] documented as of this encounter
--- OUTSIDE RECORDS SUMMARY | 2022-07-12 01:00 | XMS_ITS | Encounter Summary ---
:1965 Author Organization [facility] [place] [address] Care Team Providers Name Role Phone Ernestina Nowak Primary Care Provider Reason for Visit Reason Onset Date Comments Medication Refill 02/23/2013 Encounter Details Date Type Department Care Team Description 02/23/2013 Refill Dermatology at [facility] Jacob Blair soriasis (Primary Dx) Karen GANNON MD [address] [place] [address] [facility] [place], [place] [address] (Wo rk) Social History Tobacco [...] Peña Woodward MD [facility] PLASTIC SURGERY [place] [phone] ([facility]) 08/19/2022 Office Visit Podiatry Tom Titus DPM [place] [phone] ([facility]) 09/08/2022 Office Visit Internal Medicine Janay Hay MD [facility] GENERAL INTERNAL MEDICINE [place], [place] [address] ([facility]) 10/12/2059 Hospital Encounter Surgery Jim Hanley MD [facility] SPINE CENTER [place], [place] [address] ([facility]) Scheduled Procedures Name Priority Associated [...] psoriasis documented in this encounter Care Teams Traffic Lieutenant Relationship Specialty Start Date End Date Ernestina Nowak PA PCP - General 09/03/10 04/05/15 [address] [place] [address] documented as of this encounter
--- OUTSIDE RECORDS SUMMARY | 2022-07-12 01:00 | XMS_ITS | Encounter Summary ---
:1965 Author Organization [facility] [place] [address] Care Team Providers Name Role Phone Ernestina Nowak Primary Care Provider Encounter Details Date Type Department Care Team Description 04/20/2013 Orders Only Sp[facility] Ro[facility]na Powell LPN [facility] [place] [address] Social History Tobacco Use Types Packs/Day [...] MD [facility] PLASTIC SURGERY [place], [place] [address] (Wo rk) 08/19/2022 Office Visit Podiatry Tom Titus DPM [place] [phone] (Wo rk) 09/08/2022 Office Visit Internal Medicine Janay Hay MD [facility] GENERAL INTERNAL MEDICINE [place] [address] (Wo rk) 10/12/2059 Hospital Encounter Surgery Jim Hanley MD [facility] SPINE CENTER [place] [address] (Wo rk) Scheduled Procedures Name Priority Associated [...] on filedocumented in this encounter Care Teams Ham Doctor Relationship Specialty Start Date End Date Ernestina Nowak PA PCP - General 09/03/10 04/05/15 [address] [place] [address] documented as of this encounter
--- OUTSIDE RECORDS SUMMARY | 2022-07-12 01:00 | XMS_ITS | Encounter Summary ---
:1965 Author Organization [facility] Address [facility] [place] [address] Care Team Providers Name Role Phone Ernestina Nowak Primary Care Provider Reason for Visit Reason Comments Medication Refill Encounter Details Date Type Department Care Team Description 01/20/2013 Refill Neurology at [facility] Josue Fuentes MD [facility] [place] [address] NEUROLOGY DEPT. [phone] [place], [place] [address] (Wo rk) Social History Tobacco [...] MD [facility] PLASTIC SURGERY [place] [address] (Wo rk) 08/19/2022 Office Visit Podiatry Tom Titus DPM [place], [place] [address] (Wo rk) 09/08/2022 Office Visit Internal Medicine Janay Hay MD [facility] GENERAL INTERNAL MEDICINE [place] [phone] (Wo rk) 10/12/2059 Hospital Encounter Surgery Jim [...] on filedocumented in this encounter Care Teams Storm Door Maker Relationship Specialty Start Date End Date Ernestina Nowak PA PCP - General 09/03/10 04/05/15 [address] [place] [address] documented as of this encounter
--- OUTSIDE RECORDS SUMMARY | 2022-07-12 01:00 | XMS_ITS | Encounter Summary ---
:1965 Author Organization [facility] [place] [address] Care Team Providers Name Role Phone Ernestina Nowak Primary Care Provider Reason for Visit Reason Onset Date Comments Medication Refill 04/04/2013 Encounter Details Date Type Department Care Team Description 04/04/2013 Refill Dermatology at [facility] soriasis (Primary Dx) Karen GANNON MD [address] [place] [address] [facility] [place], [place] [address] (Wo rk) Social History Tobacco [...] MD [facility] PLASTIC SURGERY [place] [id number] ([facility]) 08/19/2022 Office Visit Podiatry Tom Titus DPM [place] [phone] ([facility]) 09/08/2022 Office Visit Internal Medicine Janay Hay MD [facility] GENERAL INTERNAL MEDICINE [place], [place] [address] ([facility]) 10/12/2059 Hospital Encounter Surgery Jim Hanley MD [facility] SPINE CENTER [place], [place] [address] ([facility]) Scheduled Procedures Name Priority Associated Diagnoses [...] psoriasis documented in this encounter Care Teams Director Nursing Service Relationship Specialty Start Date End Date Ernestina Nowak PA PCP - General 09/03/10 04/05/15 [address] [place] [address] documented as of this encounter
--- OUTSIDE RECORDS SUMMARY | 2022-07-12 01:00 | XMS_ITS | Encounter Summary ---
:1965 Author Organization [facility] Address [facility] [place] [address] Care Team Providers Name Role Phone Ernestina Nowak Primary Care Provider Encounter Details Date Type Department Care Team Description 03/08/2013 Orders Only Pain Management at Aracelis Pierson MD [facility] [place] [address] PAIN CLINIC [phone] [place] [phone] (Wo rk) Social History Tobacco Use Types [...] Woodward MD [facility] PLASTIC SURGERY [place] [phone] (Wo rk) 08/19/2022 Office Visit Podiatry Tom Titus DPM [place], [place] 0[address] (Wo rk) 09/08/2022 Office Visit Internal Medicine Janay Hay MD [facility] GENERAL INTERNAL MEDICINE [place], [place] [address] (Wo rk) 10/12/2059 Hospital Encounter Surgery Jim Hnaley MD [facility] SPINE CENTER [place], [place] [address] (Wo rk) Scheduled Procedures [...] Procedure Name Priority Date/Time Associated Diagnosis Comme [facility] FILM LIBRARY Routine 03/08/2013 11:05 AM Results for this STORAGE ONLY PAIN EDT procedure are in CLINIC C ARM the results section. documented in this encounter Results Film Library-storage only pain clinic C-arm (03/08/2013 11:05 AM EDT) Specimen (Source) Anatomical Collection Method Collection Time Re ceived Time Location / / Volume Laterality 03/08/2013 11:05 AM EDT Narrative [facility] - 06/05/2014 11:03 PM EDT This is a non-reportable exam. Procedure Note Chandler Gamble - 06/05/2014Formatti ng of this note might be different from the original. This is a non-reportable exam. Aracelis Mcknight MD G FILM LIBRARY ORDERABLES Performing Organization Address City/State/ZIP Code Phon e Number [facility] RAD [address] [place] [address] documented in this encounter Visit Diagnoses Not on filedocumented in this encounter Care Teams Plastic Surgeon Relationship Specialty Start Date End Date Ernestina Nowak PA PCP - General 09/03/10 04/05/15 [address] [place] [address] documented as of this encounter
--- OUTSIDE RECORDS SUMMARY | 2022-07-12 01:00 | XMS_ITS | Encounter Summary ---
:1965 Author Organization [facility] [place] [address] Care Team Providers Name Role Phone Jocelyn Davies Primary Care Provider Reason for Visit Reason Comments Cervicalgia Encounter Details Date Type Department Care Team Description 03/08/2013 Procedure visit Pain Management at Loc Mcknight MD [address] [place] [address] Cervical radicular [facility] Aracelis Mcknight MD [facility] [place] [address] pain (Primary Dx) [place] [id number] Social History Tobacco Use Types Packs/Day Years [...] Sign Reading Time Taken Comments Blood Pressure 150/101 03/08/2013 11:26 AM EDT Pulse 85 03/08/2013 11:26 AM EDT Temperature - - Respiratory Rate 16 03/08/2013 11:26 AM EDT Oxygen Saturation 98% 03/08/2013 11:26 AM EDT Inhaled Oxygen Concentration - - Weight 99.8 kg (220 lb) 03/08/2013 11:04 AM EDT Height 165.1 cm (5' 5) 03/08/2013 11:04 AM EDT Body Mass Index 36.61 03/08/2013 11:04 AM EDT documented in this encounter Patient Instructions Patient InstructionsValentina Perez, CHRISTINE - 03/08/2013 11:17 AM EDT Pain Management Center Discharge Instructions: You were seen by Dr. Peri Moya MD and Aracelis Mcknight MD who performed cervical epidural steroid injection. [x] You may resume your normal activities: [...] or proceed to your local emergency department. Vlaentina Perez LPN Special instructions documented in this encounter Progress Notes Valentina Perez LPN - 03/08/2013 11:05 AM EDT Pre-Procedure Screening Questions: 1. Status: No 2. 3. Patient states they have a ups driver to transport after procedure? Yes 4. Patient taking antibiotics at present? No 5. NPO per Pain Management Center protocol? No 6. 7. Patient diabetic: Yes __ borderline (not treated with medications) x__ managed with oral medications _x_ managed with injected medications 8. Patient routinely taking anticoagulants ? No Date stopped Current INR Patient Vital Signs documented in Doc Flowsheets associated with this encounter. Patient Discharge Instructions were reviewed with patient and copy provided to patient. IV anxiolysis: Yes IV placement: Location of IV Insertion: [x ] Right [ ] Left [x ] hand [ ] anterior forearm [ ] posterior forearm [ ] AC [ ] upper arm [ ] other: IV Gauge: [ ] 24G [ x ] 22G [ ] 20G After IV insertion completed, IV was secured with occlusive transparent dressing. IV site is patent and intact. Patient is without complaint upon completion of IV insertion. Started by: Valentina Perez LPN Initiated by: Valentina Perez LPN IV Solution: LR 1000ml - rate as directed by proceduralist Total Volume Intravenous Fluid infused documented in the Medication Administration Record (MAR) Site condition at IV removal: [x ] Clear [ ] Bruised [ ] other: Administration of IV anxiolysis procedural medications documented in MAR as ordered by proceduralist documented in this encounter Procedure Notes Peri Moya MD - 03/08/2013 11:34 AM EDTAssociated Order(s): EPIDURAL STEROID INJECTION Procedure(s): EPIDURAL STEROID INJECTION Pre-Procedure Diagnose(s): Cervical radicular pain Cervical Epidural Steroid Injection Date of Service: 03/08/2013 Patient: Emmanuelle Bynum Provider: PERI MOYA MD COMMENTS: Patient presents with neck and right arm pain. Cervical MRI report from 12/27/12 reviewed--degenerative changes with severe bilateral neural foraminal stenosis at C5-C6, mild left neural foraminal stenosis at C6-C7. Emmanuelle Bynum has been referred to the [...] for entering the epidural space by a right paramedian C7-T1 interlaminar approach was identified under fluoroscopy and marked. Following thorough Chlo rhexadine preparation of the skin and draping and 1% lidocaine infiltration of the skin entry point and subcutaneous tissues, a 18 gauge Tuohy needle was placed under fluoroscopic guidance with loss of resistance technique into the epidural space. During needle placement and entry to the epidural space using KAYLIN technique, there was no paresthesia or return of blood or CSF through the needle.1 cc Omnipaque 240 was injected with clear epidural spread in the A/P and lateral views confirming epidural placement without vascular uptake. 10 mg Dexamethasone with 1 ml sterile normal saline was injected with no unusual discomfort expressed by Ms. Bynum. Ms. Bynum's vital signs were stable throughout the procedure and recorded in the docflowsheet by the nursing staff. Follow up plans and appointments were discussed with the Ms. Bynum. Post procedure instruction wasgiven as documented in nursing documentation and having met discharge criteria, she was discharged from the Pain Management Center. Comments: No complications F/U with Jocelyn Davies. Anxiolysis provided: 1 mg midazolam Peri Moya MD Pain Medicine CC: JOCELYN DAVIES, YUNIOR @[email or web address]@ I was the attending physician supervising the resident in the above care and I was present with the resident for the entire procedure. ARACELIS MCKNIGHT MD documented in this encounter Plan of Treatment Upcoming Encounters Date Type Specialty Care Team Description 08/06/2022 Office Visit Plastic Surgery Peña Woodward MD [facility] PLASTIC SURGERY [place] [id number] ( josé luis) 08/19/2022 Office Visit Podiatry Tom Titus DPM [place], [place] [address] ( [place] l[place]) 09/08/2022 Office Visit Internal Medicine Janay Hay MD [facility] GENERAL INTERNAL MEDICINE [place], [place] [address] ( jos[place] luis) 10/12/2059 Hospital Encounter Surgery Jim Hanley MD [facility] SPINE CENTER [place], [place] [address] (Wo rk) Scheduled Procedures Name [...] Associated Diagnosis Comme nts EPIDURAL STEROID Routine 03/08/2013 2:18 PM Cervical radicular Results for this INJECTION EDT pain procedure are i n the results section. documented in this encounter Results EPIDURAL STEROID INJECTION (03/08/2013 2:18 PM EDT) Narrative Aracelis Mcknight MD - 03/08/2013 2:18 P M EDT Aracelis Mcknight MD ? 03/08/2013 ??2:18 PM Cervical Epidural Steroid Injection Date of Service: ??03/08/2013 Patient: ??Emmanuelle Bynum ?? Provider: ??PERI MOYA MD ?? COMMENTS: Patient presents with neck and right arm pain. Cervical MRI report from 12/27/12 reviewed--degene rative changes with severe bilateral neural foraminal stenos is at C5-C6, mild left neural foraminal stenosis at C6-C7. Emmanuelle Bynum has been referred to the Pain Management Center for cervical epidural steroid inj ection. ?? Ms. Bynum was [facility]. ?? There were no medical, pharmacologic, ra diographic or other structural contraindications to attempti ng fluoroscopically guided epidural steroid injection. ??Ris ks and expected side effects as well as potential benefit of the procedure were reviewed with Ms. Bynum, and her voice d concerns addressed. ?? The printed consent form was signed and witnessed. ??Standard time-out procedure was performed. The patient was placed in the prone posi tion on the fluoroscopy table and automated blood pressure cuff and pulse oximeter applied. ??The skin entry point for ente ring the epidural space by a right paramedian C7-T1 interlaminar ap proach was identified under fluoroscopy and marked. ??Followin g thorough Chlorhexadine preparation of the skin and draping and 1% lidocaine infiltration of the skin entry point and subcutaneous tissues, a 18 gauge Tuohy needle was placed under fluoroscop ic guidance with loss of resistance technique into the ep idural space. ??During needle placement and entry to the epidur al space using KAYLIN technique, there was no paresthesia or r eturn of blood or CSF through the needle. 1 cc Omnipaque 240 w as injected with clear epidural spread in the A/P and lateral v iews confirming epidural placement without vascular uptake. 10 mg Dexamethasone with 1 ml sterile normal saline was injected with no unusual discomfort expressed by Ms. Bynum. Ms. Bynum's vital signs were stable th roughout the procedure and recorded in the docflowsheet by the nursing staff. ?? Follow up plans and appointments were di scussed with the Ms. Bynum. ??Post procedure instruction wa s given as documented in nursing documentation and having met dis charge criteria, she was discharged from the Pain Management Cent er. Comments: No complications F/U with Jocelyn Davies. Anxiolysis provided: 1 mg midazolam Peri Moya MD Pain Medicine CC: YUNIOR ALEX @[email or web address]@ I was the attending physician supervisin g the resident in the above care and I was present with the re sident for the entire procedure. ARACELIS MCKNIGHT MD Procedure Note Peri Moya MD - 03/08/2013 11:34 A M EDT Cervical Epidural Steroid Injection Date of Service: 03/08/2013 Patient: Emmanuelle Bynum 8-8 Provider: PERI MOYA MD COMMENTS: Patient presents with neck and right arm pain. Cervical MRI report from 12/27/12 reviewed--degenerative changes with severe bilateral neural foraminal stenosis at C5-C6, mild left neural foraminal stenosis at C6-C7. Emmanuelle Bynum has been referred to the Pain Management Center for cervical epidural steroid injection. Ms. Bynum was interviewed and [facility]. There were no medical, [...] for entering the epidural space by a right paramedian C7-T1 interlaminar approach was identified und er fluoroscopy and marked. Following thorough Chlorhexadine preparation of the skin and draping and 1% lidocaine infiltration of the skin entry point and subcutaneous tissues, a 18 gauge Tuohy needle was donna radha under fluoroscopic guidance with loss of resistance technique into the ep idural space. During needle placement and entry to the epidural space using KAYLIN technique, there was no paresthesia or return of blood or CSF through the needle. 1 cc Omnipaque 240 was injected with clear ep idural spread in the A/P and lateral views confirming epidural placement without vascular uptake. 10 mg Dexamethasone with 1 ml sterile normal saline was injected with no unusual discomfort expressed by Ms. Bynum. Ms. Bynum's vital signs were stable th roughout the procedure and recorded in the docflowsheet by the nursing staff. Follow up plans and appointments were di scussed with the Ms. Bynum. Post procedure instruction was given as documented in nursing documentation and having met discharge criteria, she was discharged from the Pain Management Center. Comments: No complications F/U with Jocelyn Davies. Anxiolysis provided: 1 mg midazolam Peri Moya MD Pain Medicine CC: YUNIOR ALEX @[email or web address]@ I was the attending physician supervisin g the resident in the above care and I was present with the resident for the entire procedure. ARACELIS MCKNIGHT MD Aracelis Mcknight MD NEUROLOGY ORDERABLES documented in this encounter Visit Diagnoses Diagnosis Cervical radicular pain - Primary Brachial neuritis or radiculitis nos documented in this encounter Administered Medications Inactive Administered Medications - up to 3 most recent administrations Medication Order MAR Action Action Date Dose Rate Site dexamethasone sodium (PF) Given 03/08/2013 11:30 AM EDT 10 mg injection 10 mg 10 mg, Epidural, ONCE, 1 dose, On 03/08/13 at 1130, Routine iohexol (OMNIPAQUE) injection 1 mL Given 03/08/2013 11:30 AM EDT 1 mL 1 mL, Epidural, ONCE, 1 dose, On 03/08/13 at 1130, Wasted 49 ml, Routine lactated ringers infusion 100 mL New Bag 03/08/2013 11:30 AM EDT 100 mLs 100 mL, Intravenous, ONCE, 1 dose, On 03/08/13 at 1130 midazolam (VERSED) injection 1 mg Given 03/08/2013 11:30 AM EDT 1 mg 1 mg, Intravenous, ONCE, 1 dose, On 03/08/13 at 1130, Routine documented in this encounter Care Teams Cutter V Groove Relationship Specialty Start Date End Date Jocelyn Davies PA PCP - General 09/03/10 04/05/15 [address] [place] [address] documented as of this encounter
--- OUTSIDE RECORDS SUMMARY | 2022-07-12 01:00 | XMS_ITS | Encounter Summary ---
:1965 Author Organization [facility] Address [facility] [place] [address] Care Team Providers Name Role Phone Ernestina Nowak Primary Care Provider Encounter Details Date Type Department Care Team Description 08/11/2012 Orders Only Pain Management at [facility] David Armstrong MD [facility] [place] [address] PAIN CLINIC [phone] [place], [place] [address] (Wo rk) Social History [...] [facility] P[facility] [place] [phone] (Wo rk) 08/19/2022 Office Visit Podiatry Tom Titus DPM [place], [place] [address] (Wo rk) 09/08/2022 Office Visit Internal Medicine Janay Hay MD [facility] GENERAL INTERNAL MEDICINE [place], [place] [address] (Wo rk) 10/12/2059 Hospital Encounter Surgery Jim Hanley MD [facility] SPINE CENTER [place], [place] [address] (Wo rk) [...] Procedure Name Priority Date/Time Associated Diagnosis Comme [facility] FILM LIBRARY Routine 08/11/2012 1:50 PM Results f or this STORAGE ONLY PAIN EDT procedure are in CLINIC C ARM the results section. documented in this encounter Results FILM LIBRARY-STORAGE ONLY PAIN CLINIC C-ARM (08/11/2012 1:50 PM EDT) Specimen (Source) Anatomical Collection Method Collection Time Re ceived Time Location / / Volume Laterality 08/11/2012 1:50 PM EDT Narrative [facility] - 05/01/2014 7:03 PM EDT This is a non-reportable exam. Procedure Note Chandler Gamble - 05/01/2014Formatti ng of this note might be different from the original. This is a non-reportable exam. David Armstrong MD G FILM LIBRARY ORDERABLES Performing Organization Address City/State/ZIP Code Phon e Number [facility] [address] [place] [address] documented in this encounter Visit Diagnoses Not on filedocumented in this encounter Care Teams Daily Release And Dupe Printer Relationship Specialty Start Date End Date Ernestina Nowak PA PCP - General 09/03/10 04/05/15 [address] [place] [address] documented as of this encounter
--- OUTSIDE RECORDS SUMMARY | 2022-07-12 01:00 | XMS_ITS | Encounter Summary ---
:1965 Author Organization [facility] Address [facility] [address] [address] Care Team Providers Name Role Phone Ernestina Nowak Primary Care Provider Encounter Details Date Type Department Care Team Description 09/28/2012 Office Visit Neurology at [facility] Josue Fuentes MD Chronic migraine [facility] wit hout aura (Primary Drive DR Buzz) NEUROLOGY DEPT. [address] [place] [address] [phone] Social History Tobacco Use Types Packs/Day Years [...] Sign Reading Time Taken Comments Blood Pressure 110/68 09/28/2012 1:51 PM EST Pulse 96 09/28/2012 1:51 PM EST Temperature - - Respiratory Rate - - Oxygen Saturation - - Inhaled Oxygen Concentration - - Weight 108.9 kg (240 lb) 09/28/2012 1:51 PM EST reporte d Height 165.1 cm (5' 5) 09/28/2012 1:51 PM EST reported Body Mass Index 39.94 09/28/2012 1:51 PM EST documented in this encounter Progress Notes Josue Fuentes MD - 09/28/2012 1:58 PM EST Emmanuelle feels that Botox has reduced the frequency form nearly daily to 10/mo. Severity is still high but cervical disc [...] infections followed by urologist Dr. Hernandez in [place]. 2. GERD 3. Asthma (uses inhaler only [...] sleep study to be done 10. 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 gabapentin (NEURONTIN) 300 mg capsule Take 1 capsule by mouth 3 times daily. 90 capsule 5 ??? gabapentin (NEURONTIN) 600 mg tablet Take 1 tablet by mouth 3 times daily. 90 tablet 5 ??? hydroCODone-acetaminophen (VICODIN) 5-500 mg per tablet Take 1 tablet by mouth 2 times daily as needed for Pain. 20 tablet 2 ??? methocarbamol (ROBAXIN-750) 750 mg tablet Take 1 tablet by mouth 3 times daily as needed. 60 tablet 1 ??? naproxen sodium (ANAPROX) 550 mg tablet Take 1 tablet by mouth 2 times daily as needed. 30 tablet 5 ??? sumatriptan succinate (SUMAVEL DOSEPRO) 6 mg/0.5 mL NfIj Inject 6 mg subcutaneously 2 times daily as needed. As needed 12 each 2 ??? Betamethasone-Calcipotriene (TACLONEX SCALP) 0.005-0.064 % Susp Apply topically. Apply to scalp 2-3 times a week at night for maintenance of psoriasis 60 g 1 ??? clobetasol (TEMOVATE) 0.05 % external solution Apply topically. 2 times a day for worse areas ofscalp psoriasis, for 2 weeks only 50 mL 2 ??? metFORMIN (GLUCOPHAGE) 500 mg tablet [...] capsule Take 40 mg by mouth daily. ??? Eflornithine 13.9 % Crea Apply topically 2 times daily. For excessive facial hair 30 g 2 ??? TACLONEX SCALP 0.005-0.064 % Susp APPLY TOPICALLY TO SCALP 2 TO 3 TIMES AT NIGHT FOR MAINTENANCEON WEEKENDS 60 g 2 ??? pioglitazone (ACTOS) 30 mg tablet Take 30 mg by mouth daily. ??? augmented betamethasone dipropionate (DIPROLENE-AF) 0.05 % ointment Apply topically 2 times daily. 60 g 1 ??? cyclobenzaprine (FLEXERIL) 10 mg tablet Take 10 mg by mouth 3 times daily as needed. Objective: VSS Obese Neck was supple. Head [...] 10 units in the R and L curb setter muscles, 5 units into 1 site in [...] If pain persists in those regions I will be happy to do TP injections and told Guerda to call if that becomes necessary. This was a 40 min counseling dominated visit 25 min of which was devoted to discussion of treatment alternatives, coping mechanisms, and opioid issues. Follow up Botox was arranged for 3 months. documented in this encounter Plan of Treatment Upcoming Encounters Date Type Specialty Care Team Description 08/06/2022 Office Visit Plastic Surgery Peña Woodward MD [facility] PLASTIC SURGERY [place], [place] [address] (Wo rk) 08/19/2022 Office Visit Podiatry Tom Titus DPM [place], [place] [address] (Wo rk) 09/08/2022 Office Visit Internal Medicine Janay Hay MD [facility] GENERAL INTERNAL MEDICINE [place], [place] [address] ( rk) 10/12/2059 Hospital Encounter Surgery Jim Hanley MD [facility] SPINE CENTER [place], [place] [address] (Wo rk) Scheduled Procedures Name [...] Site botulinum toxin type A (BOTOX) Given 09/28/2012 2:46 PM EST 155 Units injection 155 Units 155 Units, Intramuscular, ONCE, 1 dose, On Thu09/28/12 at 1445, Routine documented in this encounter Care Teams Stripping Shovel Oiler Relationship Specialty Start Date End Date Ernestina Nowak PA PCP - General 09/03/10 04/05/15 [address] [place] [address] documented as of this encounter
--- OUTSIDE RECORDS SUMMARY | 2022-07-12 01:00 | XMS_ITS | Encounter Summary ---
:1965 Author Organization [facility] Address [address] [place] [address] Care Team Providers Name Role Phone Ernestina Nowak Primary Care Provider Reason for Visit Reason Onset Date Comments Medication Refill 03/21/2013 Encounter Details Date Type Department Care Team Description 03/21/[address] [facility] Josue Fuentes MD Chronic migraine without One [facility] aur a (Primary Dx) [place] [address] NEUROLOGY DEPT. [phone] [place] [id number] (Wo rk) Social History Tobacco Use Types [...] this encounter Miscellaneous Notes Addendum Note - [place] Jackson RN - 03/21/2013 2:12 PM EDT Addended by: TODD JACKSON on: 03/21/2013 02:12 PM Modules accepted: Orders Telephone Encounter - [place] RN - 03/21/2013 1:59 PM EDT Pt returned call and is agreeable to a month to month prescription and is requesting 15 so I preppeda script for 15. Please advise. Telephone Encounter - Elba Snow - 03/21/2013 1:46 PM EDT Patient returned Todd's call. Patient states that she needs to know why Dr. Fuentes will not refill script. Patient informed of Dr. Fuentes's note. Patient states that Dr. Fuentes prescribes hydrocodone. Patient would be agreeable to 15 per month, but did feel it was weird and that Dr. Fuentes usually prescribes 20 a month. Patient notes she was taking 30 tablets when seeing NF. Patient also informed Dr. Fuentse would not be comfortable prescribing refills for her. Patient would be agreeable to calling and requesting refills every month. Patient would like Todd to return her call to let her know if script for 15 tablets can be mailed to her. Telephone Encounter - [place] RN - 03/21/2013 1:13 PM EDT Called and left message that script will not be refilled Telephone Encounter - Josue Fuentes MD - 03/21/2013 11:27 AM EDT I am not sure from reading the eDH notes who has been prescribing the hydrocodone. My policy is to prescribe a small monthly amount in those few patients whom I think require this (prefer 15 per month max) with no refills. If she wishes I can do this but it will have to be refilled monthly by phone. ML Telephone Encounter - [place] RN - 03/21/2013 9:28 AM EDT Pt requesting med refill last written 12/14 with 2R Last appt 02/22 Next appt 04/19 Telephone Encounter - Greta Madrigal - 03/21/2013 8:59 AM EDT Name of Med: Vicodin Strength of Pills: 5-500 mg Dosing Directions: Take 1 tablet by mouth 2 times daily as needed for Pain. Refills can be given only once monthly at most 30 or 90 Day: 20 tablets Pharmacy: Mail to home address Last Appointment: 02/22/2013 Next Appointment: 04/19/2013 Patient would like a call when this has been mailed. She notes that it is OK to leave a message on her personal voicemail. documented in this encounter Plan of Treatment Upcoming Encounters Date Type Specialty Care Team Description 08/06/2022 Office Visit Plastic Surgery Peña Woodward MD [facility] PLASTIC SURGERY [place], [place] [address] (Wo rk) 08/19/2022 Office Visit Podiatry Tom Titus DPM [place], [place] [address] (Wo rk) 09/08/2022 Office Visit Internal Medicine Janay Hay MD [facility] GENERAL INTERNAL MEDICINE [place], [place] [address] (Wo rk) 10/12/2059 Hospital Encounter Surgery Jim Hanley MD [facility] SPINE CENTER [place], [place] 0[address] (Wo rk) Scheduled Procedures Name [...] migrainosus documented in this encounter Care Teams Stained Glass Joiner Relationship Specialty Start Date End Date Ernestina Nowak PA PCP - General 09/03/10 04/05/15 [address] [place] [address] documented as of this encounter
--- OUTSIDE RECORDS SUMMARY | 2022-07-12 01:00 | XMS_ITS | Encounter Summary ---
:1965 Author Organization [facility] Address [address] [place] [address] Care Team Providers Name Role Phone Ernestina Nowak Primary Care Provider Reason for Visit Reason Onset Date Comments Other 04/21/2013 Encounter Details Date Type Department Care Team Description 04/21/2013 Telephone [place] [facility] [place]ue Fu[place] MD Other [facility] [place] [address] NEUROLOGY DEPT. [phone] [place] [id number] (Wo rk) Social History Tobacco Use Types [...] Telephone Encounter - Gillian Shrestha RN - 04/22/2013 10:11 AM EDT I have spoken with Emmanuelle and given her the message from Dr. Fuentes. Telephone Encounter - Gillian Shrestha RN - 04/22/2013 9:29 AM EDT I have called the [facility] pharmacy in [facility] [phone], and spoke with Pharmacist Marlon. Per Dr. Fuentes I have informed Marlon to cancel the 2 refills on the RX for Vicodin written by Dr. Fuentes on 04/19/13. Marlon informs me that Emmanuelle filled the RX on 04/19/13. I have attempted to call Emmanuelle several times to inform her that Dr. Fuentes will no longer be prescribing opioids for her because she receives Oxycodone from another source. but have been unable to reach her. I have left a message for her to return a call. Back. Telephone Encounter - Josue Fuentes MD - 04/21/2013 1:55 PM EDT I specifically told this patient that I could not prescribe narcotic medications if she received them from any other source. So - Please let pt know I can no longer prescribe opiods and please cancel the refills on her Vicodin. Telephone Encounter - Gillian Shrestha RN - 04/21/2013 10:59 AM EDT I attempted to return a call to Amelia, message left for her to call me back. Telephone Encounter - Diandra Dumas - 04/21/2013 10:19 AM EDT Amelia, nurse from PCP office called back to speak to the nurse regarding the call yesterday about narcotics.Please call to advise. Telephone Encounter - Gillian Shrestha RN - 04/21/2013 8:12 AM EDT I spoke with Amelia , a nurse from the office of Ernestina Nowak , the PCP of Emmanuelle Bynum yesterday. She called to inform that they had become aware that Emmanuelle had received a prescription for Vicodin from Dr. Fuentes and they wanted him to be aware that she receives a monthly Rx from Ernestina Nowak for Oxycodone 5 mg tablets , #130 per month. I informed Amelia that I would relay this information to Dr. Fuentes. Last appt - 04/19/13 Next appt 05/03/13 documented in this encounter Plan of Treatment Upcoming Encounters Date Type Specialty Care Team Description 08/06/2022 Office Visit Plastic Surgery Peña Woodward MD [facility] PLASTIC SURGERY [place], [place] [address] (Wo rk) 08/19/2022 Office Visit Podiatry Tom Titus, [place] [facility] [address]IVE [place], [place] [address] (Wo rk) 09/08/2022 Office Visit Internal Medicine Janay [place] MD [facility] GENERAL INTERNAL MEDICINE [place], [place] [address] (Wo rk) 10/12/2059 Hospital Encounter Surgery Jim Hanley MD [facility] DR SPINE CENTER [place], [place] [address] (Wo rk) Scheduled Procedures Name [...] on filedocumented in this encounter Care Teams Incident Response Specialist Relationship Specialty Start Date End Date Ernestina Nowak PA PCP - General 09/03/10 04/05/15 [address] [place] [address] documented as of this encounter
--- OUTSIDE RECORDS SUMMARY | 2022-07-12 01:00 | XMS_ITS | Encounter Summary ---
:1965 Author Organization [facility] Address [facility] [place] [address] Care Team Providers Name Role Phone Ernestina Nowak Primary Care Provider Encounter Details Date Type Department Care Team Description 09/30/2012 Orders Only Acute Pain Services Kizzy Dleuna, [facility] Kevin castañ[place] [address] [facility] [phone] PAIN CLINIC [place] [address] (Wo rk) Social History Tobacco Use Types [...] Woodward MD [facility] PLASTIC SURGERY [place], [place] [address] (Wo rk) 08/19/2022 Office Visit Podiatry Tom Titus DPM [place], [place] 0[address] (Wo rk) 09/08/2022 Office Visit Internal Medicine Janay [place] MD [facility] GENERAL INTERNAL MEDICINE [place], [place] [address] (Wo rk) 10/12/2059 Hospital Encounter Surgery Jim Hanley MD [facility] SPINE CENTER [place], [place] [address] (Wo rk) Scheduled Procedures Name [...] Procedure Name Priority Date/Time Associated Diagnosis Comme [facility] FILM LIBRARY Routine 09/30/2012 2:15 PM Results f or this STORAGE ONLY PAIN EST procedure are in CLINIC C ARM the results section. documented in this encounter Results Film Library-storage only pain clinic C-arm (09/30/2012 2:15 PM EST) Specimen (Source) Anatomical Collection Method Collection Time Re ceived Time Location / / Volume Laterality 09/30/2012 2:15 PM EST Narrative RAD - 05/01/2014 7:03 PM EDT This is a non-reportable exam. Procedure Note Chandler Gamble - 05/01/2014Formatti ng of this note might be different from the original. This is a non-reportable exam. Kizzy Deluna MD [facility] FILM LIBRARY ORDERABLES Performing Organization Address City/State/ZIP Code Phon e Number [facility] [address] [place] [address] documented in this encounter Visit Diagnoses Not on filedocumented in this encounter Care Teams Polishing Machine Operator Helper Relationship Specialty Start Date End Date Ernestina Nowak PA PCP - General 09/03/10 04/05/15 [address] [place] [address] documented as of this encounter
--- OUTSIDE RECORDS SUMMARY | 2022-07-12 01:00 | XMS_ITS | Encounter Summary ---
:1965 Author Organization [facility] [place] [address] Care Team Providers Name Role Phone Ernestina Nowak Primary Care Provider Encounter Details Date Type Department Care Team Description 12/15/2012 Orders Only Pain Management at Jos Manzanares MD (Primary Dx) [facility] [place] [address] PAIN CLINIC [phone] [place] [id number] Social History Tobacco Use Types Packs/Day Years [...] MD [facility] PLASTIC SURGERY [place] [address] (Wo rk) 08/19/2022 Office Visit Podiatry Tom Titus DPM [place], [place] [address] (Wo rk) 09/08/2022 Office Visit Internal Medicine Janay [place] MD [facility] GENERAL INTERNAL MEDICINE [place] [phone] (Wo rk) 10/12/2059 Hospital Encounter Surgery Jim Hanley MD [facility] SPINE CENTER [place], [place] [address] (Wo rk) Scheduled Procedures Name [...] as of this encounter Visit Diagnoses Diagnosis Diabetes mellitus - Primary Type II or unspecified type diabetes álvaro litus without mention of complication, not stated as uncontrolled documented in this encounter Care Teams Respiratory Supervisor Relationship Specialty Start Date End Date Ernestina Nowak PA PCP - General 09/03/10 04/05/15 [address] [place] [address] documented as of this encounter
--- OUTSIDE RECORDS SUMMARY | 2022-07-12 01:00 | XMS_ITS | Encounter Summary ---
:1965 Author Organization [facility] Address [facility] [place] [address] Care Team Providers Name Role Phone Ernestina Nowak Primary Care Provider Encounter Details Date Type Department Care Team Description 08/03/2012 Office Visit Neurology at [facility] [place] Josue Fuentes MD Chronic migraine [facility] wit hout aura (Primary Drive DR Buzz) [place], [place] NEUROLOGY DEPT. [id number] [place] [address] [phone] Social History Tobacco Use Types Packs/Day Years [...] Sign Reading Time Taken Comments Blood Pressure 114/68 08/03/2012 8:49 AM EDT Pulse 85 08/03/2012 8:49 AM EDT Temperature - - Respiratory Rate - - Oxygen Saturation - - Inhaled Oxygen Concentration - - Weight 108.9 kg (240 lb) 08/03/2012 8:49 AM EDT reporte d Height 165.1 cm (5' 5) 08/03/2012 8:49 AM EDT reported Body Mass Index 39.94 08/03/2012 8:49 AM EDT documented in this encounter Progress Notes Josue Fuentes MD - 08/03/2012 9:45 AM EDT Emmanuelle continues to report frequent headaches but she is convinced that the Botox has reduced the frequency form nearly [...] July 2010. Cervical epidural steroid injections have helped. She is also having lumbar pain and lumbar epidurals are being considered. She underwent some testing for leukemia since WBCs have remained elevated and she was also being evaluated for thyroid cancer - all w/u was negative. Both w/u's were negative. She did have her shoulder surgery in Nov following which she took Percocet for 1 week. She is still smoking, but less. Ophth eval by Dr Estrada was benign. HPI - Nausea, visual scotomata and scintillations, [...] infections followed by urologist Dr. Hernandez in [place]. 2. GERD 3. Asthma (uses inhaler only when she is ill) 4. Hysterectomy for uterine fibroids 5. Two C-sections 6. Chronic depression - doing well under the care of Psych 7. Cervical arthritis and L shoulder problems for which she is using 8. 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 not cancerous - for surgery soon 9. Probably SEB - sleep study to be done 10. 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 2 times a day for worse areas of scalp psoriasis, for 2 weeks only, Disp: 50 mL, Rfl: 1 Betamethasone-Calcipotriene (TACLONEX SCALP) 0.005-0.064 % Susp, Apply topically. Apply to scalp 2-3times a week at night for maintenance of psoriasis, Disp: 60 g, Rfl: 1; sumatriptan succinate (SUMAVEL DOSEPRO) 6 mg/0.5 mL NfIj, Inject 6 mg subcutaneously 2 times daily as needed. As needed, Disp: 12each, Rfl: 5; methocarbamol (ROBAXIN-750) 750 mg tablet, Take 1 tablet by mouth 3 times daily as needed., Disp: 60 tablet, Rfl: 5 TACLONEX SCALP 0.005-0.064 % Susp, APPLY TOPICALLY TO SCALP 2 TO 3 TIMES AT NIGHT FOR MAINTENANCE ONWEEKENDS, Disp: 60 g, Rfl: 2; metFORMIN (GLUCOPHAGE) 500 mg tablet, Take 500 mg by mouth 2 times daily (with meals)., Disp: , Rfl: ; insulin detemir (LEVEMIR FLEXPEN) 100 unit/mL (3 mL) pen injection, Inject 70 mLs subcutaneously every morning. Take 2-8 units as needed depending on blood glucose., Disp: , Rfl: lisinopril (PRINIVIL;ZESTRIL) 10 mg tablet, Take 10 mg by mouth daily., Disp: , Rfl: ; glyBURIDE (DIABETA) 5 mg tablet, Take 10 mg by mouth 2 times daily (with meals)., Disp: , Rfl: ; augmented betamethasone dipropionate (DIPROLENE-AF) 0.05 % ointment, Apply topically 2 times daily., Disp: 60 g, Rfl: 1; aripiprazole (ABILIFY) 30 mg tablet, Take 30 mg by mouth daily., Disp: , Rfl: esomeprazole (NEXIUM) 40 mg capsule, Take 40 mg by mouth daily., Disp: , Rfl: ; pioglitazone (ACTOS)30 mg tablet, Take 30 mg by mouth daily., Disp: , Rfl: ; cyclobenzaprine (FLEXERIL) 10 mg tablet, Take 10 mg by mouth 3 times daily as needed., Disp: , Rfl: This med list is inaccurate - Flexeril has been dc'd for example. Objective: VSS Obese Neck was supple. Head [...] length. CÉSAR blocks may be an option. This was a 40 min counseling dominated visit 25 min of which was devoted to discussion of treatment alternatives, coping mechanisms, and opioid issues. Consent was obtained and a time-out was [...] with injections split equally except for procerus: 15 units divided between 3 sites in the frontalis muscle, 5 units in the R hotel night auditor muscle, 5 units into 1 site in the procerus muscle, 40 units divided between 8 sites in the temporalis muscles, 30 units divided between 6 sites in the suboccipital region, 20 units divided between 4sites in the cervical paraspinal musculature, and 30 units divided between 6 sites in the trapezii. Total units used= 145. Total injection sites=31. The patient tolerated the procedure without any immediate complications. Sterile technique was employed. The patient tolerated the procedure well. I noted a number of trigger points particularly in the L paraspinal and trapezius and L SCM. If pain persists in those regions I will be happy to do TP injections and told Guerda to call if that becomes necessary. Follow up Botox was arranged for 3 months. I did not inject the L hotel night auditor and medial frontalis because she is having a nevus removed there today, documented in this encounter Plan of Treatment Upcoming Encounters Date Type Specialty Care Team Description 08/06/2022 Office Visit Plastic Surgery Peña Woodward MD [facility] PLASTIC SURGERY [place], [place] [address] (Wo rk) 08/19/2022 Office Visit Podiatry Tom Titus DPM [place], [place] [address] (Wo rk) 09/08/2022 Office Visit Internal Medicine Janay [place] MD [facility] GENERAL INTERNAL MEDICINE [place], [place] [address] (Wo rk) 10/12/2059 Hospital Encounter Surgery Jim Hanley MD [facility] SPINE CENTER [place], [place] [address] (Wo rk) Scheduled Procedures [...] Site botulinum toxin type A (BOTOX) Given 08/03/2012 10:14 AM EDT 155 Units injection 155 Units 155 Units, Intramuscular, ONCE, 1 dose, On Tu08/03/12 at 1030, Routine documented in this encounter Care Teams Actuarial Technician Relationship Specialty Start Date End Date Ernestina Nowak PA PCP - General 09/03/10 04/05/15 [address] [place] [address] documented as of this encounter
--- OUTSIDE RECORDS SUMMARY | 2022-07-12 01:00 | XMS_ITS | Encounter Summary ---
:1965 Author Organization [facility] Address [address] [place] [address] Care Team Providers Name Role Phone Ernestina Nowak Primary Care Provider Reason for Visit Reason Onset Date Comments Other 12/15/2012 Encounter Details Date Type Department Care Team Description 12/15/2012 Refill Neurology at [facility] [place] Josue Fuentes MD [facility] garry [facility] [place] [address] NEUROLOGY DEPT. [phone] [place] [address] (Wo rk) Social History Tobacco Use Types [...] this encounter Miscellaneous Notes Telephone Encounter - Elba Snow - 12/15/2012 10:41 AM EST Please call pharmacy and clarify script for: methocarbamol (ROBAXIN-750) 500 mg tablet 50 tablet 1 12/14/2012 Sig - Route: Take 1-2 tablets by mouth 3 times daily as needed. - Oral documented in this encounter Plan of Treatment Upcoming Encounters Date Type Specialty Care Team Description 08/06/2022 Office Visit Plastic Surgery Peña [place]ward MD [facility] PLASTIC SURGERY [place], [place] [address] (Flores ordonez) 08/19/2022 Office Visit Podiatry Tom Titus DPM [place], [place] [address] (Flores ordonez) 09/08/2022 Office Visit Internal Medicine Janay [place] MD [facility] GENERAL INTERNAL MEDICINE [place], [place] [address] (Flores ordonez) 10/12/2059 Hospital Encounter Surgery Jim Hanley MD [facility] SPINE CENTER [place], [place] [address] (Wo rk) Scheduled Procedures Name [...] on filedocumented in this encounter Care Teams Sketch Maker Relationship Specialty Start Date End Date Ernestina Nowak PA PCP - General 09/03/10 04/05/15 [address] [place] [address] documented as of this encounter
--- OUTSIDE RECORDS SUMMARY | 2022-07-12 01:00 | XMS_ITS | Encounter Summary ---
:1965 Author Organization [facility] Address [address] [place] [address] Care Team Providers Name Role Phone Ernestina Nowak Primary Care Provider Reason for Visit Reason Comments Medication Refill Encounter Details Date Type Department Care Team Description 10/19/2012 Refill Neurology at [facility] Josue Fuentes [place] [facility] [place] [address] NEUROLOGY DEPT. [phone] [place], [place] [address] (Wo rk) Social History Tobacco [...] [facility] PLASTIC SURGERY [place] [address] (Wo rk) 08/19/2022 Office Visit Podiatry Tom Titus DPM [place], [place] [address] (Wo rk) 09/08/2022 Office Visit Internal Medicine Janay [place] MD [facility] GENERAL INTERNAL MEDICINE [place] [phone] (Wo rk) 10/12/2059 Hospital Encounter Surgery Jim Hanley MD [facility] SPINE CENTER [place], [place] 0[address] (Wo rk) Scheduled Procedures Name [...] on filedocumented in this encounter Care Teams Delivery Person Relationship Specialty Start Date End Date Ernestina Nowak PA PCP - General 09/03/10 04/05/15 [address] [place] [address] documented as of this encounter
--- OUTSIDE RECORDS SUMMARY | 2022-07-12 01:00 | XMS_ITS | Encounter Summary ---
:1965 Author Organization [facility] Address [facility] [place] [address] Care Team Providers Name Role Phone Ernestina Nowak Primary Care Provider Encounter Details Date Type Department Care Team Description 05/18/2012 Orders Only Pain Management at Kizzy Moran, [facility] Kevin castañ[place] [address] [facility] [phone] PAIN CLINIC [place] [id number] (Wo rk) Social History Tobacco Use Types [...] [facility] PLASTIC SURGERY [place] [id number] (Wo rk) 08/19/2022 Office Visit Podiatry Tom Titus DPM [place], [place] [address] (Wo rk) 09/08/2022 Office Visit Internal Medicine Janay [place] MD [facility] GENERAL INTERNAL MEDICINE [place], [place] [address] (Wo rk) 10/12/2059 Hospital Encounter Surgery Jim Hanley MD [facility] SPINE CENTER [place], [place] [address] (Wo rk) Scheduled Procedures Name [...] Procedure Name Priority Date/Time Associated Diagnosis Comme [facility] FILM LIBRARY Routine 05/18/2012 9:35 AM Results f or this STORAGE ONLY PAIN EDT procedure are in CLINIC C ARM the results section. documented in this encounter Results FILM LIBRARY-STORAGE ONLY PAIN CLINIC C-ARM (05/18/2012 9:35 AM EDT) Specimen (Source) Anatomical Collection Method Collection Time Re ceived Time Location / / Volume Laterality 05/18/2012 9:35 AM EDT Narrative [facility] - 04/25/2014 10:15 AM EDT This is a non-reportable exam. Procedure Note Chandler Gamble - 04/25/2014Formatti ng of this note might be different from the original. This is a non-reportable exam. Kizzy Deluna MD [employer] FILM LIBRARY ORDERABLES Performing Organization Address City/State/ZIP Code Phon e Number [facility] [address] [place] [address] documented in this encounter Visit Diagnoses Not on filedocumented in this encounter Care Teams Restaurant Hospitality Manager Relationship Specialty Start Date End Date Ernestina Nowak PA PCP - General 09/03/10 04/05/15 [address] [place] [address] documented as of this encounter
--- OUTSIDE RECORDS SUMMARY | 2022-07-12 01:00 | XMS_ITS | Encounter Summary ---
:1965 Author Organization [facility] [place] [address] Care Team Providers Name Role Phone Ernestina Nowak Primary Care Provider Encounter Details Date Type Department Care Team Description 03/21/2013 Telephone Live Well Work Well at Ryne Fuentes MD [facility] [address] [place] [address] [place] [id number] [phone] (Wo rk) Social History Tobacco Use Types [...] encounter Miscellaneous Notes Telephone Encounter - Greta Madrigal - 03/21/2013 8:59 AM EDT err documented in this encounter Plan of Treatment Upcoming Encounters Date Type Specialty Care Team Description 08/06/2022 Office Visit Plastic Surgery Peña Woodward MD [facility] PLASTIC SURGERY [place] [address] ([facility]) 08/19/2022 Office Visit Podiatry Tom Titus DPM [place] [address] ( josé luis) 09/08/2022 Office Visit Internal Medicine Janay Hay MD [facility] GENERAL INTERNAL MEDICINE [place], [place] [address] (Wo rk) 10/12/2059 Hospital Encounter Surgery Jim Hanley MD [facility] SPINE CENTER [place], [place] [address] (Wo josé luis) Scheduled Procedures [...] on filedocumented in this encounter Care Teams Hadoop Java Developer Relationship Specialty Start Date End Date Ernestina Nowak PA PCP - General 09/03/10 04/05/15 [address] [place] [address] documented as of this encounter
--- OUTSIDE RECORDS SUMMARY | 2022-07-12 01:00 | XMS_ITS | Encounter Summary ---
:1965 Author Organization [facility] Address [facility] [place] [address] Care Team Providers Name Role Phone Ernestina Nowak Primary Care Provider Encounter Details Date Type Department Care Team Description 02/22/2013 Office Visit Neurology at [facility] Josue Fuentes MD Chronic migraine [facility] wit hout aura ([address] Drive DR Buzz) [place], [place] NEUROLOGY DEPT. [address] [place] [address] [phone] Social History Tobacco Use Types Packs/Day Years [...] Sign Reading Time Taken Comments Blood Pressure 108/71 02/22/2013 10:23 AM EDT Pulse 103 02/22/2013 10:23 AM EDT Temperature - - Respiratory Rate - - Oxygen Saturation - - Inhaled Oxygen Concentration - - Weight 107.5 kg (237 lb) 02/22/2013 10:23 AM EDT Height 165.1 cm (5' 5) 02/22/2013 10:23 AM EDT Body Mass Index 39.44 02/22/2013 10:23 AM EDT documented in this encounter Progress Notes Josue Fuentes MD - 02/22/2013 10:43 AM EDT Emmanuelle feels that Botox has reduced the frequency of her HAs from nearly daily to 3-4 per mo. Severity [...] disease. Dr Yoon did not recommend surgery but she has not pursued this. Cervical epidural steroid injections have helped, in [facility] here. She is also having lumbar pain and lumbar epidurals are being considered. She underwent some testing for leukemia since WBCs have rem ained elevated and she was also being evaluated for thyroid cancer - all w/u was negative. Both w/u's were negative. She is still smoking, but less. Her brother was diagnosed via PET with some cerebral dysfunction as explanation for memory and behavior changes. Emmanuelle feels she should have this done and I suggested that we set up a visit with me or a dementia specialist to look further. She wants me to look into this and I suggested we arrange avisit to discuss further and do a mental status exam. HPI - Nausea, visual scotomata and scintillations, [...] infections followed by urologist Dr. Hernandez in [place]. 2. GERD 3. Asthma (uses inhaler only [...] sleep study to be done 10. 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 Head [...] Vicodin for tx of acute migraine; Botox She thought she needed a new prescription for Vicodin, but when I checked she actually still has onemore refill. So, I will prescribe #20 Vicodin prescribed with 2 refills (q1mo) when she calls next month. She knows 1) to be more accurate about when she needs a refill and 2) that I will not be able to continue prescribing if she receives opioids from more than one provider. Potential AE's were discussed at length. Consent [...] 10 units in the R and L acquisitions logistics analyst muscles, 5 units into 1 site in [...] MD [facility] PLASTIC SURGERY [place] [address] ([facility]) 08/19/2022 Office Visit Podiatry Tom Titus DPM [place] [phone] ([facility]) 09/08/2022 Office Visit Internal Medicine Janay Hay MD [facility] GENERAL INTERNAL MEDICINE [place] [phone] ([facility]) 10/12/2059 Hospital Encounter Surgery Jim Hanley MD [facility] SPINE CENTER [place] [phone] ([facility]) Scheduled Procedures Name Priority Associated Diagnoses [...] Site botulinum toxin type A (BOTOX) Given 02/22/2013 10:59 AM EDT 155 Units injection 155 Units 155 Units, Intramuscular, ONCE, 1 dose, On Thu02/22/13 at 1115, Routine documented in this encounter Care Teams Smelter Operator Relationship Specialty Start Date End Date Ernestina Nowak PA PCP - General 09/03/10 04/05/15 [address] [place] [address] documented as of this encounter
--- OUTSIDE RECORDS SUMMARY | 2022-07-12 01:00 | XMS_ITS | Encounter Summary ---
:1965 Author Organization [facility] Address [facility] [place] [address] Care Team Providers Name Role Phone Ernestina Nowak Primary Care Provider Reason for Visit Reason Comments Eye Problem 2 mo dry eye ck Encounter Details Date Type Department Care Team Description 09/28/2012 Follow-Up Ophthalmology at [facility] Payal Gunter Dry eyes (Primary Dx); [facility] Kevin Styles, OD Myopia [place] [address] [facility] [phone] DR OPHTHALMOLOGY DEPT. [place], [place] [address] Social History Tobacco Use Types [...] encounter Progress Notes Payal Erwin, ERIC - 09/28/2012 5:34 PM EST Emmanuelle Bynum is a 46 y.o. female who had a chief complaint of Eye Problem. Dry eye symptoms have improved with current regimen. New glasses are fine, just needs to wear up on nose and get used tothe BF. Assessment: Encounter Diagnoses Name Primary? Dry eyes Yes ??? Myopia with astigmatism and presbyopia Plan: 1)No change in Rx. 2)continue Genteal gtts and gloria, Restasis bid, fish oil, lid hygiene Follow up: 6 months CEE/ diabetic check documented in this encounter Plan of Treatment Upcoming Encounters Date Type Specialty Care Team Description 08/06/2022 Office Visit Plastic Surgery Peña Woodward MD [facility] PLASTIC SURGERY [place], [place] [address] (Flores ordonez) 08/19/2022 Office Visit Podiatry Tom Titus DPM [place], [place] [address] ([place]) 09/08/2022 Office Visit Internal Medicine Janay Hay MD [facility] GENERAL INTERNAL MEDICINE [place], [place] [address] (Wo rk) 10/12/2059 Hospital Encounter Surgery Jim Hanley MD [facility] SPINE CENTER [place], [place] [address] (Wo rk) Scheduled Procedures Name [...] of this encounter Visit Diagnoses Diagnosis Dry eyes - Primary Tear film insufficiency, unspecified Myopia with astigmatism and presbyopia Myopia documented in this encounter Care Teams Radio Frequency Technician Relationship Specialty Start Date End Date Ernestina Nowak PA PCP - General 09/03/10 04/05/15 [address] [place] [address] documented as of this encounter
--- OUTSIDE RECORDS SUMMARY | 2022-07-12 01:00 | XMS_ITS | Encounter Summary ---
:1965 Author Organization [facility] [place] [address] Care Team Providers Name Role Phone Ernestina Nowak Primary Care Provider Reason for Visit Reason Comments Neck Pain Encounter Details Date Type Department Care Team Description 05/18/2012 Ancillary Pain Management at [place], Cervical radicular Appointment [facility] Kizzy Stevenson MD pain (Primary Dx) [facility] [address] [place] [facility] [address] [place], [place] [phone] [facility] Social History Tobacco Use Types Packs/Day Years [...] Sign Reading Time Taken Comments Blood Pressure 165/104 05/18/2012 9:44 AM EDT Pulse 86 05/18/2012 9:44 AM EDT Temperature - - Respiratory Rate - - Oxygen Saturation 97% 05/18/2012 9:44 AM EDT Inhaled Oxygen Concentration - - Weight 111.1 kg (245 lb) 05/18/2012 9:13 AM EDT Height 162.6 cm (5' 4) 05/18/2012 9:13 AM EDT Body Mass Index 42.05 05/18/2012 9:13 AM EDT documented in this encounter Patient Instructions Patient InstructionsErNithya saucedo RN - 05/18/2012 9:49 AM EDT [facility] Discharge Instructions: You were seen by Dr. Kizzy Deluna MD and Dr. Gorman* who performed cervical epidural steroidinjection. [x] You may resume your normal activities: [...] apply heat today. [x] You received Midazolam 2 mg and Fentanyl Citrate 50 mcg through an intravenous line, to lessen the anxiety/pain of your procedure. DO NOT operate heavy or dangerous equipment/tools, or sign important papers today. Attempt to empty your bladder 4-6 hours after your procedure. [x] If you have diabetes, monitor your blood sugars frequently. If your blood sugar increases and isof concern, contact your Primary Care Provider. You received the following medications: Depo-Medrol 80 mg, Lidocaine and Omnipaque (contrast dye). During [...] or proceed to your local emergency department. Nithya Lilly PUBLIC WORKS LABORER documented in this encounter Progress Notes Kizzy Deluna MD - 09/29/2012 7:41 AM EST Addended by: KIZZY DELUNA on: 09/29/2012 07:41 AM Modules accepted: Orders Lilly Gorman MD - 05/18/2012 9:25 AM EDT Cervical Epidural Steroid Injection Date of Service: 05/18/2012 Patient: Emmanuelle Bynum Provider: LILLY GORMAN MD Emmanuelle Bynum has been referred to the Pain Management Center for cervical epidural steroid injection. COMMENTS: Referring provider: YUNIOR ALEX/Dr. Butt Pain location: Neck/right arm Pain level: 8/10 Bowel or bladder changes: denies Weakness: Tingling R are into hand Imaging Reviewed MRI Ms. Bynum was interviewed and the medical [...] the epidural space by a midline C7-T1 interlaminar approach was identified under fluoroscopy and marked. Following thorough Chlorhexadine preparation of the skin and draping and 1% lidocaine infiltration of the skin entry point and subcutaneous tissues, an 18 gauge Tuohy needle was placed under fluoroscopic guidance and with loss of resistance technique into the epidural space. Upon needle placement and loss of resistance there were no paresthesiae or return of blood or CSF through the needle. 1 ml of Omnipaque 240 were injected with clear epidural spread in the A/P, lateral and oblique views. 80 mg Depomedrol with 1ml sterile normal saline were injected through the catheterwith no unusual discomfort expressed by Ms. Bynum. Ms. Bynum's vital signs were stable throughout the procedure and were as recorded in the docflowsheet by the nursing staff. IV anxiolysis of 2 mg Versed and 50 mcg Fentanyl were given for the procedure. Follow up plans and appointments were discussed with Ms. Bynum. Post procedure instruction was given as documented in nursing documentation and having met discharge criteria, she was discharged from the Pain Management Center. COMMENTS: Pt tolerated the procedure well, with no apparent complications. Will follow-up prn for repeat ANGELINA. No apparent complications Repeat prn Follow-up with None Lilly Gorman MD Fellow, Pain Medicine Pager [phone] CC: YUNIOR ALEX Dr. I was the attending physician supervising the resident in the above care and I was present with the resident for the entire procedure. KIZZY DELUNA MD Pain Clinic [facility] TT Nithya Lilly RN - 05/18/2012 9:23 AM EDT Pre-Procedure Screening Questions: 1. Status: No 2. 3. Patient states they have a route salesman and driver to transport after procedure? Yes 4. Patient taking antibiotics at present? No 5. NPO per Pain Management Center protocol? Yes 6. 7. Patient diabetic: Yes __ borderline (not treated with medications) _x_ managed with oral medications _x_ managed with injected medications 8. Patient routinely taking anticoagulants ? No Date stopped Current INR IV anxiolysis: Yes IV placement: Location of IV Insertion: [ ] Right [x ] Left [ ] hand [ x ] anterior forearm [ ] posterior forearm [ ] AC [ ] upper arm [ ] other: IV Gauge: [ ] 24G [ x ] 22G [ ] 20G After IV insertion completed, IV was secured with occlusive transparent dressing. IV site is patent and intact. Patient is without complaint upon completion of IV insertion. Started by: Nithya Lilly RN BSN Initiated by: Nithya Lilly RN BSN IV Solution: LR 1000ml - rate as directed by proceduralist Total Volume Intravenous Fluid infused documented in the Medication Administration Record (MAR) Site condition at IV removal: [ x ] Clear [ ] Bruised [ ] other: Administration of IV anxiolysis procedural medications documented in MAR as ordered by proceduralist Patient Vital Signs documented in Doc Flowsheets associated with this encounter. Patient Discharge Instructions were reviewed with patient and copy provided to patient. documented in this encounter Procedure Notes Lilly Gorman MD - 05/18/2012 10:30 AM EDTAssociated Order(s): EPIDURAL STEROID INJECTION Procedure(s): EPIDURAL STEROID INJECTION Pre-Procedure Diagnose(s): Cervical radicular pain documented in this encounter Miscellaneous Notes Miscellaneous - Sheyla Comer - 05/21/2012 2:06 PM EDT documented in this encounter Plan of Treatment Upcoming Encounters Date Type Specialty Care Team Description 08/06/2022 Office Visit Plastic Surgery Peña Woodward MD [facility] PLASTIC SURGERY [place], [place] [address] (Wo rk) 08/19/2022 Office Visit Podiatry Tom Titus DPM [facility] [address] [place], [place] [address] (Wo rk) 09/08/2022 Office Visit Internal Medicine Janay Hay MD [facility] GENERAL INTERNAL MEDICINE [place], [place] [address] (Wo rk) 10/12/2059 Hospital Encounter Surgery Jim Hanley MD [facility] SPINE CENTER [place], [place] [address] (Wo rk) Scheduled Procedures Name [...] Action Action Date Dose Rate Site fentaNYL 50mcg/mL injection Given 05/18/2012 9:33 AM EDT 50 mcg 50 mcg, Intravenous, ONCE PRN, 1 dose, Starting on 05/18/12 at 0925, Until 05/18/12 at 0933, Pain, Routine iohexol (OMNIPAQUE) injection 1 mL Given 05/18/2012 9:45 AM EDT 1 mL 1 mL, Epidural, ONCE, 1 dose, On 05/18/12 at 0945, Wasted 49 ml, Routine lactated ringers infusion 100 mL New Bag 05/18/2012 9:45 AM EDT 600 mLs mL/hr 100 mL, Intravenous, ONCE, 1 dose, On 05/18/12 at 0945 methylPREDNISolone acetate (depo-MEDROL) Given 05/18/2012 9:45 A M EDT 80 mg injection 80 mg 80 mg, Epidural, ONCE, 1 dose, On 05/18/12 at 0945, Routine midazolam (VERSED) injection 1 mg Given 05/18/2012 9:33 AM EDT 2 mg 1 mg, Intravenous, ONCE PRN, 1 dose, Starting on 05/18/12 at 0925, Until 05/18/12 at 0933, Anxiety, Routine documented in this encounter Care Teams Crop Pest Control Specialist Relationship Specialty Start Date End Date Ernestina Nowak PA PCP - General 09/03/10 04/05/15 [address] [place] [address] documented as of this encounter
--- OUTSIDE RECORDS SUMMARY | 2022-07-12 01:00 | XMS_ITS | Encounter Summary ---
:1965 Author Organization [place] [address] Care Team Providers Name Role Phone Ernestina Nowak Primary Care Provider Reason for Visit Reason Comments Cervicalgia right arm pain Encounter Details Date Type Department Care Team Description 09/30/2012 Procedure visit [facility] (Primary [facility] [place] Rosio Stevenson MD Dx) [facility] [address] [place] [facility] [address] [place] [address] [phone] Social History Tobacco Use Types Packs/Day Years [...] Sign Reading Time Taken Comments Blood Pressure 138/85 09/30/2012 2:33 PM EST Pulse 88 09/30/2012 2:33 PM EST Temperature - - Respiratory Rate 16 09/30/2012 2:33 PM EST Oxygen Saturation 97% 09/30/2012 2:33 PM EST Inhaled Oxygen Concentration - - Weight 108.9 kg (240 lb) 09/30/2012 2:11 PM EST Height 165.1 cm (5' 5) 09/30/2012 2:11 PM EST Body Mass Index 39.94 09/30/2012 2:11 PM EST documented in this encounter Patient Instructions Patient InstructionsValentina Perez LPN - 09/30/2012 2:33 PM EST Pain Management Center Discharge Instructions: You were seen by Dr. Rosio Deluna MD and Bryanna Alvarez MD who performed cervical epidural steroid injection. [...] today. [x] You received Midazolam 2 mg through an intravenous line, to lessen [...] or proceed to your local emergency department. Valentina Perez LPN Special instructions documented in this encounter Progress Notes Valentina Perez LPN - 09/30/2012 2:12 PM EST Pre-Procedure Screening Questions: 1. Status: No 2. 3. Patient states they have a dumpster driver to transport after procedure? Yes 4. Patient taking antibiotics at present? No 5. NPO per Pain Management Center protocol? Yes 6. 7. Patient diabetic: No __ borderline (not treated with medications) __ managed with oral medications __ managed with injected medications 8. Patient routinely taking anticoagulants ? No Date stopped Current INR Patient Vital Signs documented in Doc Flowsheets associated with this encounter. Patient Discharge Instructions were reviewed with patient and copy provided to patient. IV anxiolysis: Yes IV placement: Location of IV Insertion: [ ] Right [x ] Left [x ] hand [ ] anterior forearm [ ] posterior forearm [ ] AC [ ] upper arm [ ] other: IV Gauge: [ ] 24G [x ] 22G [ ] 20G After IV [...] proceduralist documented in this encounter Procedure Notes rByanna Alvarez MD - 09/30/2012 2:35 PM ESTAssociated Order(s): EPIDURAL STEROID INJECTION Procedure(s): EPIDURAL STEROID INJECTION Pre-Procedure Diagnose(s): Cervicalgia Cervical Epidural Steroid Injection Date of Service: 09/30/2012 Patient: Emmanuelle Bynum Provider: BRYANNA ALVAREZ MD Emmanuelle Bynum has been referred to the Pain Management Center for cervical epidural steroid injection. COMMENTS: Referring provider: Ernestina Nowak Pain location: Neck, arms Bowel or bladder changes: denies Weakness: no Numbness: yes Imaging Reviewed Ms. Bynum was interviewed and the medical [...] of blood or CSF through the needle. 1ml of Omnipaque 240 were injected with clear epidural spread in the A/P views. 80 mg Depomedrol with 1ml sterile normal saline were injected through the catheter with no unusual discomfort expressed by Ms. [...] Pain Management Center. COMMENTS: No apparent complications Repeat PRN Follow-up with Ernestina Nowak CC: YUNIOR ALEX @PCPADD@ I was the attending physician supervising the resident in the above care and I was present with the resident for the entire procedure. ROSIO DELUNA MD Pain Clinic [facility] [place] documented in this encounter Miscellaneous Notes Miscellaneous - Provider, Scanning - 10/11/2012 2:54 PM EST documented in this encounter Plan of Treatment Upcoming Encounters Date Type Specialty Care Team Description 08/06/2022 Office Visit Plastic Surgery Peña Woodward MD [facility] PLASTIC SURGERY [place], [place] [address] ([place] ordonez) 08/19/2022 Office Visit Podiatry Tom Titus DPM [place], [place] [address] ([place]) 09/08/2022 Office Visit Internal Medicine Janay Hay MD [facility] GENERAL INTERNAL MEDICINE [place], [place] [address] ([place] [facility]) 10/12/2059 Hospital Encounter Surgery Jim Hanley MD [facility] SPINE CENTER [place], [place] [address] (Wo rk) Scheduled Procedures Name [...] Associated Diagnosis Comme nts EPIDURAL STEROID Routine 09/30/2012 3:03 PM Cervicalgia Resul ts for this INJECTION EST procedure are i n the results section. documented in this encounter Results EPIDURAL STEROID INJECTION (09/30/2012 3:03 PM EST) Narrative Rosio Deluna MD - 09/30/2012 3 :03 PM EST Rosio Deluna MD ? 09/30/2012 ??3:03 PM Cervical Epidural Steroid Injection Date of Service: ??09/30/2012 Patient: ??Emmanuelle Bynum ?? Provider: ??BRYANNA ALVAREZ MD ?? Emmanuelle Bynum has been referred to the Pain Management Center for cervical epidural steroid inj ection. ?? COMMENTS: Referring provider: ??Ernestina Nowak Pain location: ??Neck, arms Bowel or bladder changes: denies Weakness: ??no Numbness: yes Imaging Reviewed Ms. Bynum was interviewed and the [facility] record reviewed. ?? There were no [...] space by a midline C7-T1 interlaminar approach wa s identified under fluoroscopy and marked. ??Following thor jimy Chlorhexadine preparation of the skin and draping and 1% lidocaine infiltration of the skin entry point and subcutaneous tissues, an 18 gauge Tuohy needle was placed under fluoroscop ic guidance and with loss of resistance technique into the ep idural space. ?? Upon needle placement and loss of resist ance there were no paresthesiae or return of blood or CSF t hrough the needle. ??1ml of Omnipaque 240 were injected with devika r epidural spread in the A/P views. 80 mg Depomedrol with 1ml buddy rile normal saline were injected through the catheter with no un usual discomfort expressed by Ms. Bynum. Ms. Bynum's vital signs were stable th roughout the procedure and were as recorded in the docflowsheet by the nursing staff. ?? If given, dosages of intravenous drugs f or anxiolysis and analgesia were documented in MAR. Follow up plans and appointments were di scussed with Ms. Bynum. Post procedure instruction was given as documented in nursing documentation and having met juan j baer, she was discharged from the Pain Management Cent er. COMMENTS: No apparent complications Repeat PRN Follow-up with ??Ernestina Nowak CC: YUNIOR ALEX @PCPADD@ I was the attending physician supervisin g the resident in the above care and I was present with the re sident for the entire procedure. ROSIO DELUNA MD Pain Clinic [facility] [place] Procedure Note Bryanna Alvarez MD - 09/30/2012 2:35 PM EST Cervical Epidural Steroid Injection Date of Service: 09/30/2012 Patient: Emmanuelle Bynum 8-8 Provider: BRYANNA ALVAREZ MD Emmanuelle Bynum has been referred to the Pain Management Center for cervical epidural steroid injection. COMMENTS: Referring provider: Ernestina Nowak Pain location: Neck, arms Bowel or bladder changes: denies Weakness: no Numbness: yes Imaging Reviewed Ms. Bynum was interviewed and the [facility] record reviewed. There were no medical, [...] midline C7-T1 interlaminar approach was identified under fluoroscop y and marked. Following thorough Chlorhexadine preparation of the skin and draping and 1% lidocaine infiltration of the skin entry point and subcutaneous tissues, an 18 gauge Tuohy needle was placed under fluoroscop ic guidance and with loss of resistance technique into the ep idural space. Upon needle placement and loss of resist ance there were no paresthesiae or return of blood or CSF through the needle. 1ml of Omnipaque 240 were injected with clear epidural spread in the A/P views. 80 mg Depomedrol with 1ml sterile normal saline were inje cted through the catheter with no unusual discomfort expressed by Ms. Bynum. Ms. Bynum's vital signs were stable th roughout the procedure and were as recorded in the docflowsheet by the nursing staff. If given, dosages of intravenous drugs for anxiolysis and analgesia were documented in DEC. Follow up plans and appointments were di scussed with Ms. Bynum. Post procedure instruction was given as documented in nursing documentation and having met discharge criteria, she was discharged from the Pain Management Center. COMMENTS: No apparent complications Repeat PRN Follow-up with Ernestina Nowak CC: YUNIOR ALEX @PCPADD@ I was the attending physician supervisin g the resident in the above care and I was present with the resident for the entire procedure. ROSIO DELUNA MD Pain Clinic [facility] [place] Rosio Deluna MD NEUROLOGY ORDERABLES documented in this encounter Visit Diagnoses Diagnosis Cervicalgia - Primary documented in this encounter Administered Medications Inactive Administered Medications - up to 3 most recent administrations Medication Order MAR Action Action Date Dose Rate Site iohexol (OMNIPAQUE) injection 1 mL Given 09/30/2012 2:30 PM EST 1 mL 1 mL, Epidural, ONCE, 1 dose, On Keyanna 09/30/12 at 1430, Wasted 49 ml, Routine lactated ringers infusion 100 mL New Bag 09/30/2012 2:30 PM EST 100 mLs mL/hr 100 mL, Intravenous, ONCE, 1 dose, On Keyanna 09/30/12 at 1430 methylPREDNISolone acetate (depo-MEDROL) Given 09/30/2012 2:30 P M EST 80 mg injection 80 mg 80 mg, Epidural, ONCE, 1 dose, On Keyanna 09/30/12 at 1430, Routine midazolam (VERSED) injection 2 mg Given 09/30/2012 2:35 PM EST 2 mg 2 mg, Intravenous, ONCE PRN, 1 dose, Starting on Keyanna 09/30/12 at 1413, Until Keyanna 09/30/12 at 1435, Anxiety, Routine documented in this encounter Care Teams Men[employer]S Locker Room Attendant Relationship Specialty Start Date End Date Ernestina Nowak PA PCP - General 09/03/10 04/05/15 [address] [place] [address] documented as of this encounter
--- OUTSIDE RECORDS SUMMARY | 2022-07-12 01:00 | XMS_ITS | Encounter Summary ---
:1965 Author Organization [facility] [place] [address] Care Team Providers Name Role Phone Ernestina Nowak Primary Care Provider Reason for Referral Consultation (Routine) - Closed Specialty Diagnoses / Procedures Referred By Contact Refer red To Contact Neurology Diagnoses Cervical radicular pain Whiplash Chronic neck pain [facility] [place] [address] [place] [address] Phone: Fax: Referral ID Status Reason Start Date Expiration Date Visits V isits Requested Authorized [id number] Closed Consult & 04/19/2013 10/16/2013 1 1 Test onsultation (Routine) - Closed Specialty Diagnoses / Procedures Referred By Contact Refer red To Contact Pain Management Diagnoses Cervical radicular pain Whiplash Chronic neck pain [facility] [address] [place] [address] [place] [address] Phone: Fax: Referral ID Status Reason Start Date Expiration Date Visits Requ ested Visits Authorized [id number] Closed Other 04/19/2013 10/16/2013 1 1 Reason for Visit Reason Comments Back And Neck Pain radiaites to RIGHT arm Encounter Details Date Type Department Care Team Description 04/19/2013 Office Visit [facility], Ernie Styles, Whiplash (Primary Dx); Raf [place] Cervical radicular pain; [facility] [address] [place], [place] [facility] [address] [place] [address] [phone] Social History Tobacco Use Types Packs/Day Years [...] as of this encounter Patient Instructions Patient InstructionsNenita Hawkins CHRISTINE - 04/19/2013 12:48 PM EDT Welcome to [facility], your secure online access to your electronic medical record at [facility]. Using [facility] you will be able to send messages to your providers, view your test results, renew prescriptions, schedule appointments, and much more. Follow these instructions to enter your personal [facility] account for the first time: 1. Start your internet browser and type [email or web address] into the address bar. 2. In the New User box on the right-hand side of the Welcome page click the link that states, ???I have an activation code.?? 3. On the Identification page, follow these steps: a) Enter your [facility] activation code: [email or web address] b) Expires: 06/03/2013 12:49 PM IMPORTANT: This Activation Code will on the above mentioned date. If you do not sign up for [facility] by this date, you will need to request another activation code. c) Enter your date of , using the calendar tool provided. d) Enter your Zip code. e) Select ???submit?? to go to the next page. 4. On the Create Account page, follow these steps: a) Create a Mobile [facility] username. This can???t be changed, so choose one you won???t forget. b) Create a password that???s at least six characters long, and that contains at least two numbers. Your password can be changed at any time. Confirm your password by entering it once more. c) Enter your email address. This will be used to alert you to new information. Confirm your email address by entering it once more. d) Enter your security question. This will be used if you forget your password. e) Enter your security answer. Confirm your security answer by entering it once more. f) Select ???submit?? to view your electronic medical record. If you have any questions about [facility] or your Access Code, please call for [place], for [place] or for [place]. If you need technical support, please e-mail [email or web address]. Remember, myD-H is NOT for urgent needs! Always dial 911 for medical emergencies. documented in this encounter Progress Notes Ernie Garzon PA - 04/19/2013 3:13 PM EDT Chief Complaint: Chief Complaint Patient presents with ??? Back And Neck Pain radiaites to RIGHT arm HPI: This patient is a 47 y.o. female that presents to the spine center for A followup visit on chronic neck pain and right arm pain and paresthesias of which matches either a C6 or C7 pattern going tothe 2nd and 3rd digits of the right hand. I saw this patient previously in 2009 and she has been evaluated since that time by Dr. Steve Yoon, and by the pain center providers. She was not felt to be surgical based on the initial evaluation and felt that most the pain was axial pain from a whiplashinjury. The pain center talk about doing a medial branch block/radiofrequency ablation but has now attempted multiple cervical epidural steroid injections. The injections have been helpful for her symptoms noting that she has pretty good reduction of her arm pain symptoms but continues to have the axial neck pain symptoms. However she has had more injections that are suggested in a years time and therefore is here to discuss other options. Besides the steroid injection she also has worked with occipital nerve blocks and Botox injections for her headaches through the neurology department. She feels her arm pain is worse than her neck pain and does feel that she can have weakness in the hand. She rates her pain currently is a 5/10 with pain ranging between a 5-8. She states that she is worse with sleeping positions and using her arm, and feels better laying on her left side with her arm resting onthe side of her body.. ROS: Negative for any GI, or constitutional symptoms. Medications & Allergies: Are updated on the system. Problem List: Patient Active Problem List Diagnoses Code ??? 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 Chronic [...] 216.3 ??? Myopia with astigmatism and presbyopia 367.1 ??? Lesion of skin of face 709.9 ??? Dermatofibroma 216.9 ??? Accessory skin tags 757.39 ??? Chronic neck pain 723.1 PMH: Past Medical History Diagnosis Date ??? Headache ??? GERD (gastroesophageal reflux disease) ??? Asthma ??? Depression ??? SEB (obstructive sleep apnea) ??? Diabetes mellitus ??? Arthritis ??? Leukocytosis 06/05/2011 ??? Cardiac disease ??? Allergy ??? Neuromuscular disorder ??? Skin disease ??? Thyroid disease ??? Trauma ??? Rheumatic fever PSH: No past surgical history on file. Social Hx: History Social History ??? Marital Status: Spouse Name: N/A Number of Children: N/A ??? Years of Education: N/A Occupational History ??? Not on file. Social History Main Topics ??? Smoking status: Current Everyday Smoker -- 0.5 packs/day for 13 years Types: Cigarettes ??? Smokeless tobacco: Never Used ??? Alcohol Use: No ??? Drug Use: No ??? Sexually Active: Deferred Other Topics Concern ??? Not on file Social History Narrative ??? No narrative on file Physical Exam: This patient is a relatively fit and healthy 47-year-old female who is alert and oriented x3. She does have a relatively poor posture but no scoliosis. She ambulate with a nonantalgic gait and was ableto toe walk, heel walk and tandem walk. She has some tenderness in the lower cervical spine, but shefeels numb and the upper cervical spine from her recent injections. She does have some tenderness along the right facet joint area. When she had her arm elevated on top of her head, palpation to the upper trapezius did cause increased arm symptoms. Her cervical range of motion was limited only on extension causing neck pain, and there was also some neck pain with right rotation. Neurologically her sensation, reflexes and motor testing were intact in all extremities. Her Spurling's test was negative causing only axial neck pain. She has an equivocal Tinel's and Phalen's test is there was some reported increased numbness. There is no clonus and negative Babinski and Trujillo's. Distal pulses are intact. Imaging: She does have a prior MRI from 2009 that demonstrated some cervical spondylitic changes andforaminal narrowing on the right primarily at C5-C6 at the left primarily and C6-C7. Reportedly she has an updated MRI which the report suggests severe foraminal narrowing at C5-6, but the images were not here to review. We are attempting to have the MRI electronically transferred. Assessment: Chronic axial neck pain from a whiplash injury, with right arm pain and paresthesias that could be radicular in nature but also may be peripheral in nature or associated with a double crushphenomenon. Plan: I have reviewed with the patient that the surgeon previously did not feel that her arm symptoms are directly related to the cervical spine did not suggest surgery. While it does appear that her symptoms in the arm could be from the cervical spine based on response to the injections, I think it would be reasonable to get an EMG for better confirmation, and also to rule out a double crush phenomenon. As for her axial neck pain, it was suggested by the pain center at one point to consider a cervical medial branch block/radiofrequency ablation. I've Personal feel this is a reasonable option as itmay help resolve the neck pain symptoms and then we can focus on treating the arm symptoms. I did briefly discuss that if the EMG was negative we could consider attempting a CT- guided nerve root injection to confirm that the foraminal narrowing is the pain generator. If that is the case a surgical consultation could be in order. I briefly also discussed physical therapy in the spine center but will hold off on this. After our discussion and answering the patients questions, we have come to an aggreement in the below stated plan: 1)I referred the patient to the neurology department for evaluation and EMG of the upper extremity to rule out for full versus axial cause for the right arm symptoms. I will followup with the patient after the EMG study. 2) I have referred the patient to the pain center for a trial of a cervical Right-sided medial branch block/radiofrequency ablation. This dictation was performed using [email or web address] voice recognition dictation. documented in this encounter Plan of Treatment Upcoming Encounters Date Type Specialty Care Team Description 08/06/2022 Office Visit Plastic Surgery Peña Woodward MD [facility] PLASTIC SURGERY [place], [place] [address] (Wo rk) 08/19/2022 Office Visit Podiatry Tom Titus DPM [place], [place] [address] (Wo rk) 09/08/2022 Office Visit Internal Medicine Janay Hay MD [facility] GENERAL INTERNAL MEDICINE [place], [place] [address] (Wo rk) 10/12/2059 Hospital Encounter Surgery Jim Hanley MD [facility] SPINE CENTER [place], [place] [address] (Wo rk) Scheduled Procedures Name [...] chedule Referral to Pain Outpatient Referral Routine Cervical radicula r Ordered: Clinic pain 04/19/2013 Whiplash Chronic neck pain Referral to Outpatient Referral Routine Cervical radicular Or dered: Neurology pain 04/19/2013 Whiplash Chronic neck pain documented as of this encounter Visit Diagnoses Diagnosis Whiplash - Primary Sprain of neck Cervical radicular pain Brachial neuritis or radiculitis nos Chronic neck pain Cervicalgia documented in this encounter Care Teams Chief Nurse Anesthetist Relationship Specialty Start Date End Date Ernestina Nowak PA PCP - General 09/03/10 04/05/15 [address] [place] [address] documented as of this encounter
--- OUTSIDE RECORDS SUMMARY | 2022-07-12 01:00 | XMS_ITS | Encounter Summary ---
:1965 Author Organization [facility] Address [address] [place] [address] Care Team Providers Name Role Phone Ernestina Nowak Primary Care Provider Encounter Details Date Type Department Care Team Description 12/27/2012 Orders Only [facility] Ernie Garzon PA [facility] [place] [address] SPINE CENTER [phone] [place] [id number] (Wo rk) Social History Tobacco Use Types [...] MD [facility] PLASTIC SURGERY [place] [id number] (Wo rk) 08/19/2022 Office Visit Podiatry Tom Titus DPM [place], [place] [address] (Wo rk) 09/08/2022 Office Visit Internal Medicine Janay Hay MD [facility] GENERAL INTERNAL MEDICINE [place], [place] [address] (Wo rk) 10/12/2059 Hospital Encounter Surgery Jim Hanley MD [facility] SPINE CENTER [place], [place] [address] (Wo rk) Scheduled Procedures Name [...] Procedure Name Priority Date/Time Associated Diagnosis Comme [facility] FILM LIBRARY Routine 12/27/2012 2:25 PM Results f or this STORAGE ONLY MR EDT procedure ar e in SPINE the results section. documented in this encounter Results Film Library- Storage only MR Spine (12/27/2012 2:25 PM EDT) Specimen (Source) Anatomical Collection Method Collection Time Re ceived Time Location / / Volume Laterality 12/27/2012 2:25 PM EDT Narrative RAD - 06/06/2014 11:43 PM EDT This is a non-reportable exam. Procedure Note Chandler Gamble - 06/06/2014Formatti ng of this note might be different from the original. This is a non-reportable exam. Ernie MOJICA [employer] FILM LIBRARY ORDERABLES Performing Organization Address City/State/ZIP Code Phon e Number [facility] [address] [place] [address] documented in this encounter Visit Diagnoses Not on filedocumented in this encounter Care Teams Wash Worker Relationship Specialty Start Date End Date Ernestina Nowak PA PCP - General 09/03/10 04/05/15 [address] [place] [address] documented as of this encounter
--- OUTSIDE RECORDS SUMMARY | 2022-07-12 01:00 | XMS_ITS | Encounter Summary ---
:1965 Author Organization [facility] Address [facility] [address] [place] [id number] Care Team Providers Name Role Phone Ernestina Nowak Primary Care Provider Encounter Details Date Type Department Care Team Description 04/19/2013 Follow-Up Neurology at [facility] Josue Fuentes MD Chronic migraine without aura (Primary D x); [facility] ression; Drive Cervicogenic headache [place] [id number] NEUROLOGY DEPT. [phone] [place] [phone] (Wo rk) Social History Tobacco Use Types [...] Sign Reading Time Taken Comments Blood Pressure 137/85 04/19/2013 9:32 AM EDT Pulse 84 04/19/2013 9:32 AM EDT Temperature - - Respiratory Rate - - Oxygen Saturation - - Inhaled Oxygen Concentration - - Weight 105.2 kg (232 lb) 04/19/2013 9:32 AM EDT reporte d Height 165.1 cm (5' 5) 04/19/2013 9:32 AM EDT reported Body Mass Index 38.61 04/19/2013 9:32 AM EDT documented in this encounter Progress Notes Josue Fuentes MD - 04/19/2013 10:02 AM EDT Emmanuelle feels that Botox has reduced the frequency of her severe HAs from nearly daily to 3-4 per mo (although she admits to using Vicodin 10 days per month). Her cervical disc disease and TMD are exacerbating HAs she thinks. Her rescue med for any of her pain is now Naproxen sodium and Robaxin; alejandro uses Sumavel or Vicodin - now using 30/mo. She now on Abilify and Prozac as her antidepressants.Neck pain seems to relate to cervical disc [...] infections followed by urologist Dr. Hernandez in [place]. 2. GERD 3. Asthma (uses inhaler only [...] prescribed #20 Vicodin prescribed with 2 refills (q1mo) She understands that I will not be able to continue prescribing if she receives opioids from more than one provider. Potential AE's were discussed at length. I noted a number of trigger points particularly in the L paraspinal and trapezius and L SCM.so I offered to do TP injections. (See below) Follow up Botox was arranged for May. I had a long chat with Emmanuelle at her request about the suicidality and emotional dysregulation in her family (brother committed suicide) as well as her breakdowns which lead to blackouts and unexpected hospital admissions for suicide attempts. She wanted me to explain the possible genetics and showed me a neuropsychological assessment of her brother in 1986. I suggested further psychiatric evaluation but she told me that her psychiatrist Dr Stuart suggested neurological evaluation. I think avisit with a behavioral neurologist makes sense here and we will be having one join us here at [facility] in the near future if Emmanuelle can wait otherwise a behavioral neurological evaluation at [facility] or in [place] might be reasonable. I will leave this to her psychiatrist and PCP to pursue. Specifically she asked if a PET scan would help and I told her I thought it would not be of any benefit that I knowof. Procedure: Consent was obtained and a time-out was conducted just before the start of the procedure to verify the correct: patient, procedure, procedure location and all relevant critical information. Sterile technique was used. Injection sites were sterilized with 70% isopropyl alcohol. 10 cc of a 1:1 mixture of 0.25% bupivicaine and 1% lidocaine was prepared and then injected in the region surrounding both greater occipital nerves, both lesser occipital nerves and trigger points in left and right rostral trapezii and splenius muscles. The patient tolerated the procedures without any complications. documented in this encounter Miscellaneous Notes Miscellaneous - Provider, Scanning - 04/22/2013 9:14 AM EDT documented in this encounter Plan of Treatment Upcoming Encounters Date Type Specialty Care Team Description 08/06/2022 Office Visit Plastic Surgery Peña Woodward MD [facility] PLASTIC SURGERY [place], [place] [address] (Wo rk) 08/19/2022 Office Visit Podiatry Tom Titus DPM [facility] [address] [place], [place] [address] (Wo rk) 09/08/2022 Office Visit Internal Medicine Janay Hay MD [facility] GENERAL INTERNAL MEDICINE [place], [place] [address] (Wo rk) 10/12/2059 Hospital Encounter Surgery Jim Hanley MD [facility] SPINE CENTER [place], [place] [address] (Wo rk) Scheduled Procedures Name [...] intractable migraine without mention of status migrainosus Depression Depressive disorder, not elsewhere class ified Cervicogenic headache Headache documented in this encounter Administered Medications Inactive Administered Medications - up to 3 most recent administrations Medication Order MAR Action Action Date Dose Rate Site BUpivacaine (PF) (MARCAINE) 0.25 Given 04/19/2013 11:00 AM EDT 1 2.5 mg % (2.5 mg/mL) injection 12.5 mg 12.5 mg, Intrapleural, ONCE, 1 dose, On Thu04/19/13 at 1130, Routine lidocaine (XYLOCAINE) 10 mg/mL (1 %) Given 04/19/2013 11:01 AM E DT 50 mg injection 50 mg 50 mg, Subcutaneous, ONCE, 1 dose, On Thu04/19/13 at 1130, Routine documented in this encounter Care Teams Field Representatives Director Relationship Specialty Start Date End Date Ernestina Nowak PA PCP - General 09/03/10 04/05/15 [address] [place] [address] documented as of this encounter
--- OUTSIDE RECORDS SUMMARY | 2022-07-12 01:01 | XMS_ITS | Encounter Summary ---
:1965 Author Organization [facility] Address [facility] [address] [place] [id number] Care Team Providers Name Role Phone Ernestina Nowak Primary Care Provider Reason for Visit Reason Onset Date Comments Medication Refill 03/05/2012 Encounter Details Date Type Department Care Team Description 03/05/2012 Refill Dermatology Jacob Blair III, MD Dermatitis; [facility] Kevin castañeda [facility] [place] [address]DER[address] [phone] [place] [address] (Wo rk) Social History Tobacco Use Types [...] MD [facility] PLASTIC SURGERY [place] [phone] ( rk) 08/19/2022 Office Visit Podiatry Tom Titus DPM [place] [phone] ([facility]) 09/08/2022 Office Visit Internal Medicine Janay Hay MD [facility] GENERAL INTERNAL MEDICINE [place], [place] [address] ( rk) 10/12/2059 Hospital Encounter Surgery Jim Hanley MD [facility] SPINE CENTER [place], [place] [address] (Flores ordonez) Scheduled Procedures Name [...] as of this encounter Visit Diagnoses Diagnosis Dermatitis Contact dermatitis and other eczema, due to unspecified cause Psoriasis Other psoriasis documented in this encounter Care Teams Milk Pasteurizer Relationship Specialty Start Date End Date Ernestina Nowak PA PCP - General 09/03/10 04/05/[address] [place] [id number] documented as of this encounter
--- OUTSIDE RECORDS SUMMARY | 2022-07-12 01:01 | XMS_ITS | Encounter Summary ---
:1965 Author Organization [facility] Address [facility] [place] [address] Care Team Providers Name Role Phone Ernestina Nowak Primary Care Provider Reason for Visit Reason Comments Diabetes Pt states eyesight is horrib le-Can't see to drive @ night-OU always dry & watery. Encounter Details Date Type Department Care Team Description 03/16/2012 Office Visit Ophthalmology at [facility] Edwige Gunter Type 2 diabetes mellitus (Pr imary Dx); [facility] J, OD MGD (meibomian gland dysfunction); Drive [facility] Dry eyes; [place] [address] CENTER Myopia; [phone] OPHTHALMOLOGY Astigmatism; DEPT. Presbyopia [place], [place] [address] Social History Tobacco Use Types [...] as of this encounter Progress Notes Edwige Pond, OD - 03/16/2012 9:48 PM EDT Emmanuelle Bynum is a 46 y.o. female who had a chief complaint of Diabetes. No diabetic retinopathy. Chronic dry eyes/MGD/psoriasis. On Restasis bid already. Assessment: Encounter Diagnoses Code Name Primary? 250.00CA Type 2 diabetes mellitus Yes ??? 374.89Q MGD (meibomian gland dysfunction) ??? 375.15D Dry eyes ??? 367.1 Myopia ??? 367.20A Astigmatism ??? 367.4 Presbyopia Plan: 1)Refractive Error - MRx given to patient. 2)DM - pt ed re: importance of good bs control and yearly eye exam 3)HC and BS scrubs bid. AT prn. 4)Continue Restasis bid OU 5)add fish oil 2-3,000 mg daily Follow up: Recheck dry eyes 2 months Eyeglass Final Rx Sphere Cylinder [place] Add Right -1.25 +0.50 100 +1.75 Left -1.00 +0.50 090 +1.75 Expiration Date: 03/17/2014 documented in this encounter Nursing Notes 03/16/2012 3:00 PM EDT >> EDWIGE POND OD ThuMar 16, 2012 9:53 PM Dry eyes and eyes burn and water. Has psoriasis. >> EDWIGE POND OD ThuMar 16, 2012 5:20 PM CC: Here for diabetic eye exam. In sep had BS in 800s. Now on insulin. VA has never recovered all the way. VA is blurred at all distances. Had Rx for near only. On Restasis and Patanol. >> RADHA LEE ThuMar 16, 2012 3:41 PM Description:Patient presents with: Diabetes - Pt states eyesight is horrible-Can't see to drive @ night-OU always dry & watery. Location: both eye Duration: NA days Rapidity of Onset:unknown Severity: NA Condition:No Change Pain:none Modifying Factors: none Associated Symptoms: none documented in this encounter Plan of Treatment Upcoming Encounters Date Type Specialty Care Team Description 08/06/2022 Office Visit Plastic Surgery Peña Woodward MD [facility] PLASTIC SURGERY [place], [place] [address] (Flores ordonez) 08/19/2022 Office Visit Podiatry Tom Titus DPM [place], [place] [address] (Flores ordonez) 09/08/2022 Office Visit Internal Medicine Janay Hay MD [facility] GENERAL INTERNAL MEDICINE [place], [place] [address] ([place] ordonez) 10/12/2059 Hospital Encounter Surgery Jim Hanley MD [facility] SPINE CENTER [place], [place] [address] (Flores ordonez) Scheduled Procedures Name [...] Visit Diagnoses Diagnosis Type 2 diabetes mellitus - Primary Type II or unspecified type diabetes álvaro litus without mention of complication, not stated as uncontrolled MGD (meibomian gland dysfunction) Other disorders of eyelid Dry eyes Tear film insufficiency, unspecified Myopia Astigmatism Astigmatism, unspecified Presbyopia documented in this encounter Care Teams Supervisor Esters And Emulsifiers Relationship Specialty Start Date End Date Ernestina Nowak PA PCP - General 09/03/10 04/05/15 [address] [place] [address] documented as of this encounter
--- OUTSIDE RECORDS SUMMARY | 2022-07-12 01:01 | XMS_ITS | Encounter Summary ---
:1965 Author Organization [facility] [place] [address] Care Team Providers Name Role Phone Ernestina Nowak Primary Care Provider Encounter Details Date Type Department Care Team Description 07/25/2011 Follow-Up Spine Center at [facility] Ninfa Nova, [facility] Department Kevin [address]añ[address] [place] [address] Social History Tobacco Use Types Packs/Day Years Used Date Current Every Day Smoker 0.5 13 Smokeless Tobacco: Never Used Alcohol [...] MD [facility] PLASTIC SURGERY [place], [place] [address] (Wo rk) 08/19/2022 Office Visit Podiatry Tom Titus DPM [place], [place] [address] (Wo rk) 09/08/2022 Office Visit Internal Medicine Janay Hay MD [facility] GENERAL INTERNAL MEDICINE [place], [place] [address] (Wo rk) 10/12/2059 Hospital Encounter Surgery Jim Hanley MD [facility] SPINE CENTER [place], [place] [address] (Wo rk) Scheduled Procedures [...] on filedocumented in this encounter Care Teams Websphere Architect Relationship Specialty Start Date End Date Ernestina Nowak PA PCP - General 09/03/10 04/05/15 [address] [place] [address] documented as of this encounter
--- OUTSIDE RECORDS SUMMARY | 2022-07-12 01:01 | XMS_ITS | Encounter Summary ---
:1965 Author Organization [facility] Address [facility] [place] [address] Care Team Providers Name Role Phone Ernestina Nowak Primary Care Provider Encounter Details Date Type Department Care Team Description 07/28/2011 Orders Only Pain Management at L David Teixeira MD [facility] [place] [phone] PAIN CLINIC [phone] [place] [phone] (Wo rk) Social History Tobacco Use Types [...] Peña Woodward MD [facility] PLASTIC SURGERY [place] [phone] (Wo rk) 08/19/2022 Office Visit Podiatry Tom Titus DPM [place], [place] [address] (Wo rk) 09/08/2022 Office Visit Internal Medicine Janay Hay MD [facility] GENERAL INTERNAL MEDICINE [place], [place] [address] (Wo rk) 10/12/2059 Hospital Encounter Surgery Jim Hanley MD [facility] SPINE CENTER [place], [place] [address] (Wo rk) Scheduled Procedures Name [...] Procedure Name Priority Date/Time Associated Diagnosis Comme [facility] FILM LIBRARY Routine 07/28/2011 8:15 AM Results f or this STORAGE ONLY PAIN EDT procedure are in CLINIC C ARM the results section. documented in this encounter Results FILM LIBRARY-STORAGE ONLY PAIN CLINIC C-ARM (07/28/2011 8:15 AM EDT) Specimen (Source) Anatomical Collection Method Collection Time Re ceived Time Location / / Volume Laterality 07/28/2011 8:15 AM EDT Narrative [facility]ED [facility] - 02/16/2014 12:57 PM EDT This is a non-reportable exam. Procedure Note Mook Gamble - 02/16/2014Formatting of t his note might be different from the original. This is a non-reportable exam. David Armstrong MD G FILM LIBRARY ORDERABLES Performing Organization Address City/State/ZIP Code Phon e Number [facility] [address] [facility], [place] [address] documented in this encounter Visit Diagnoses Not on filedocumented in this encounter Care Teams Respiratory Services Manager Relationship Specialty Start Date End Date Ernestina Nowak PA PCP - General 09/03/10 04/05/15 [address] [place] [address] documented as of this encounter
--- OUTSIDE RECORDS SUMMARY | 2022-07-12 01:01 | XMS_ITS | Encounter Summary ---
:1965 Author Organization [facility] Address [facility] [place] [address] Care Team Providers Name Role Phone Jocelyn Davies Primary Care Provider Reason for Visit Reason Comments Cervicalgia Encounter Details Date Type Department Care Team Description 03/05/2012 Procedure visit Pain Management at David Zelaya Di splacerebecca of [facility] MD cervical intervertebral [facility] disc with out myelopathy [facility] (Primary Dx) [place], [place] PAIN CLINIC [id number] [place], [place] [phone] [facility] Social History Tobacco Use Types Packs/Day Years [...] Sign Reading Time Taken Comments Blood Pressure 127/91 03/05/2012 8:17 AM EDT Pulse 76 03/05/2012 8:17 AM EDT Temperature - - Respiratory Rate 16 03/05/2012 8:17 AM EDT Oxygen Saturation 97% 03/05/2012 8:17 AM EDT Inhaled Oxygen Concentration - - Weight 108.9 kg (240 lb) 03/05/2012 7:56 AM EDT Height 162.6 cm (5' 4) 03/05/2012 7:56 AM EDT Body Mass Index 41.2 03/05/2012 7:56 AM EDT documented in this encounter Patient Instructions Patient InstructionsJoValentina chi, RISK CONTROL DIRECTOR - 03/05/2012 8:28 AM EDT Pain Management Center Discharge Instructions: You were seen by Dr. David Zelaya MD who performed cervical epidural steroid injection. [...] encounter Progress Notes Valentina Perez LPN - 03/05/2012 8:09 AM EDT Pre-Procedure Screening Questions: 1. Status: No 2. 3. Patient states they have a sweeper driver to transport after procedure? Yes 4. Patient taking antibiotics at present? No 5. NPO per Pain Management Center protocol? Yes 6. 7. Patient diabetic: Yes __ borderline (not treated with medications) x__ managed with oral medications __x managed with injected medications 8. Patient routinely [...] proceduralist documented in this encounter Procedure Notes Davide Alva MD - 03/05/2012 8:28 AM EDTAssociated Order(s): EPIDURAL STEROID INJECTION Procedure(s): EPIDURAL STEROID INJECTION Pre-Procedure Diagnose(s): Displacement of cervical intervertebral disc without myelopathy Cervical Epidural Steroid Injection Date of Service: 03/05/2012 Patient: Emmanuelle Bynum Provider: DAVIDE ALVA MD COMMENTS:MRI reviewed, last ANGELINA provided good relief. Emmanuelle Bynum has been referred to the [...] skin entry point and subcutaneous tissues, a 17 gauge Tuohy needle was placed under fluoroscopic guidance with loss of resistance technique into the epidural space. During needle placement and entry to the epidural space using KAYLIN technique, there was no paresthesia or return of blood or CSF through the needle.An Arrow cath was advanced into the epidural space where 1 cc Omnipaque 240 was injected with clear epidural spread in the A/P and lateral views confirming epidural plcmt without vascular uptake. 80 mgDepomedrol was injected with no unusual discomfort expressed by Ms. Bynum. Ms. Bynum's vital signs were stable throughout the procedure and recorded in the docflowsheet by the nursing staff. Follow up plans and appointments were discussed with the Ms. Bynum. Post procedure instruction wasgiven as documented in nursing documentation and having met discharge criteria, she was discharged from the Pain Management Center. Comments:No complications F/U with Dr. Zelaya or PCP. Anxiolysis provided: midazolam 2mg, fentanyl 50mcg I was the attending physician supervising the resident in the above care and I was present with the resident for the entire procedure. DAVID ZELAYA MD CC: JOCELYN DAVIES, YUNIOR @PCPADD@ Davide Alva MD, Pain Medicine Fellow documented in this encounter Miscellaneous Notes Miscellaneous - Souleymane Air Plant Engineer - 03/11/2012 11:38 AM EDT documented in this encounter Plan of Treatment Upcoming Encounters Date Type Specialty Care Team Description 08/06/2022 Office Visit Plastic Surgery Peña Woodward MD [facility] PLASTIC SURGERY [place], [place] [address] (Flores ordonez) 08/19/2022 Office Visit Podiatry Tom Titus DPM [place], [place] [address] (Flores ordonez) 09/08/2022 Office Visit Internal Medicine Janay Hay MD [facility] GENERAL INTERNAL MEDICINE [place], [place] [address] (Flores ordonez) 10/12/2059 Hospital Encounter Surgery Jim Hanley MD [facility] SPINE CENTER [place], [place] [address] (Wo rk) Scheduled Procedures [...] Associated Diagnosis Comme nts EPIDURAL STEROID Routine 03/05/2012 9:06 AM Displacement of Re sults for this INJECTION EDT cervical intervertebral proc edure are in disc without myelopathy the results section. documented in this encounter Results EPIDURAL STEROID INJECTION (03/05/2012 9:06 AM EDT) Narrative David Zelaya MD - 03/05/2012 9:06 AM EDT Cervical Epidural Steroid Injection Date of Service: ??03/05/2012 Patient: ??Emmanuelle Bynum ?? Provider: ??DAVIDE ALVA MD ?? COMMENTS:MRI reviewed, last ANGELINA provide d good relief. Emmanuelle Bynum has been referred to the Pain Management Center for cervical epidural steroid injection. ?? Ms. Bynum was interviewed and the [facility] record reviewed. ??There were no medical, pharmacologic, radiographic or other structural contraindications to attempting fluorosc opically guided epidural steroid injection. ??Risks and expected side eff ects as well as potential benefit of the procedure were reviewed with Ms. Bynum, and her voiced concerns addressed. ??The printed consent form wa s signed and witnessed. ??Standard time-out procedure was performed. The patient was placed in the prone posi tion on the fluoroscopy table and automated blood pressure cuff and pulse oximeter applied. ??The skin entry point for entering the epidural space by a midline C7-T1 interlaminar approach was identified under fluoroscop y and marked. ??Following thorough Chlorhexadine preparation of the skin an d draping and 1% lidocaine infiltration of the skin entry point and subcutaneous tissues, a 17 gauge Tuohy needle was placed under fluoroscop ic guidance with loss of resistance technique into the ep idural space. ??During needle placement and entry to the epidural spac e using KAYLIN technique, there was no paresthesia or return of blood or CSF through the needle. An Arrow cath was advanced into the epidural space whe re 1 cc Omnipaque 240 was injected with clear epidural spread in the A/P an d lateral views confirming epidural plcmt without vascular uptake. 80 mg Depomedrol was injected with no unusual discomfort expressed by Ms. Matthias meyers. Ms. Bynum's vital signs were stable th roughout the procedure and recorded in the docflowsheet by the nurs ing staff. ?? Follow up plans and appointments were di scussed with the Ms. Bynum. ?? Post procedure instruction was given as documented in nursing documentation and having met juan j baer, she was discharged from the Pain Management Center. Comments:No complications F/U with Dr. Zelaya or PCP. Anxiolysis provided: midazolam 2mg, fent anyl 50mcg CC: YUNIOR ALEX @PCPADD@ Davide Alva MD, Pain Medicine Fellow Cervical Epidural Steroid Injection Date of Service: ??03/05/2012 Patient: ??Emmanuelle Bynum ?? Provider: ??DAVIDE ALVA MD ?? COMMENTS:MRI reviewed, last ANGELINA provide d good relief. Emmanuelle Bynum has been referred to the Pain Management Center for cervical epidural steroid injection. ?? Ms. Bynum was interviewed and the [facility] record reviewed. ??There were no medical, pharmacologic, radiographic or other structural contraindications to attempting fluorosc opically guided epidural steroid injection. ??Risks and expected side eff ects as well as potential benefit of the procedure were reviewed with Ms. Bynum, and her voiced concerns addressed. ??The printed consent form wa s signed and witnessed. ??Standard time-out procedure was performed. The patient was placed in the prone posi tion on the fluoroscopy table and automated blood pressure cuff and pulse oximeter applied. ??The skin entry point for entering the epidural space by a midline C7-T1 interlaminar approach was identified under fluoroscop y and marked. ??Following thorough Chlorhexadine preparation of the skin an d draping and 1% lidocaine infiltration of the skin entry point and subcutaneous tissues, a 17 gauge Tuohy needle was placed under fluoroscop ic guidance with loss of resistance technique into the ep idural space. ??During needle placement and entry to the epidural spac e using KAYLIN technique, there was no paresthesia or return of blood or CSF through the needle. An Arrow cath was advanced into the epidural space whe re 1 cc Omnipaque 240 was injected with clear epidural spread in the A/P an d lateral views confirming epidural plcmt without vascular uptake. 80 mg Depomedrol was injected with no unusual discomfort expressed by Ms. Matthias meyers. Ms. Bynum's vital signs were stable th roughout the procedure and recorded in the docflowsheet by the nurs ing staff. ?? Follow up plans and appointments were di scussed with the Ms. Bynum. ?? Post procedure instruction was given as documented in nursing documentation and having met juan j baer, she was discharged from the Pain Management [facility]. Comments:No complications F/U with Dr. Zelaya or PCP. Anxiolysis provided: midazolam 2mg, fent anyl 50mcg I was the attending physician supervisin g the resident in the above care and I was present with the resident for the entire procedure. DAVID ZELAYA MD CC: YUNIOR ALEX @[email or web address]@ Davide Alva MD, Pain Medicine Fellow Procedure Note Davide Alva MD - 03/05/2012 8:28 A M EDT Cervical Epidural Steroid Injection Date of Service: 03/05/2012 Patient: Emmanuelle Bynum 8-8 Provider: DAVIDE ALVA MD COMMENTS:MRI reviewed, last ANGELINA provide d good relief. Emmanuelle Bynum has been referred to the Pain Management Center for cervical epidural steroid injection. Ms. Bynum was interviewed and the [facility] record reviewed. There were no medical, [...] skin entry point and subcutaneous tissues, a 17 gauge Tuohy needle was placed under fluoroscop ic guidance with loss of resistance technique into the ep idural space. During needle placement and entry to the epidural space using KAYLIN technique, there was no paresthesia or return of blood or CSF through the needle. An Arrow cath was advanced into the epidural space whe re 1 cc Omnipaque 240 was injected with clear epidural spread in the A/P and lateral views confirming epidural plcmt without vascular uptake. 80 mg Depomedrol was injected with no unusual discomfort expressed by Ms. Matthias meyers. Ms. Bynum's vital signs were stable th roughout the procedure and recorded in the docflowsheet by the nursing staff. Follow up plans and appointments were di scussed with the Ms. Bynum. Post procedure instruction was given as documented in nursing documentation and having met discharge criteria, she was discharged from the [facility] Management Center. Comments:No complications F/U with Dr. Zelaya or PCP. Anxiolysis provided: midazolam 2mg, fent anyl 50mcg I was the attending physician supervisin g the resident in the above care and I was present with the resident for the entire procedure. DAVID ZELAYA MD CC: YUNIOR ALEX @PCPADD@ Davide Alva MD, Pain Medicine Fellow David Zelaya MD NEUROLOGY ORDERABLES documented in this encounter Visit Diagnoses Diagnosis Displacement of cervical intervertebral disc without myelopathy - Primary documented in this encounter Administered Medications Inactive Administered Medications - up to 3 most recent administrations Medication Order MAR Action Action Date Dose Rate Site fentaNYL 50mcg/mL injection Given 03/05/2012 8:26 AM EDT 50 mcg 50 mcg, Intravenous, EVERY 10 MIN PRN, Starting on Thu03/05/12 at 0826, Until Thu03/05/12 at 0925, Pain, Routine iohexol (OMNIPAQUE) injection 1 mL Given 03/05/2012 8:15 AM EDT 1 mL 1 mL, Epidural, ONCE, 1 dose, On Thu03/05/12 at 0815, Wasted 49 ml, Routine lactated ringers infusion 100 mL New Bag 03/05/2012 8:15 AM EDT 100 mLs mL/hr 100 mL, Intravenous, ONCE, 1 dose, On Thu03/05/12 at 0815 methylPREDNISolone acetate (depo-MEDROL) Given 03/05/2012 8:15 A M EDT 80 mg injection 80 mg 80 mg, Epidural, ONCE, 1 dose, On Thu03/05/12 at 0815, Routine midazolam (VERSED) injection 0.5 mg Given 03/05/2012 8:15 AM EDT 2 mg 0.5 mg, Intravenous, ONCE, 1 dose, On Thu03/05/12 at 0815, Routine documented in this encounter Care Teams Industrial Conveyor Belt Repairer Relationship Specialty Start Date End Date Jocelyn Davies PA PCP - General 09/03/10 04/05/15 [address] [place] [address] documented as of this encounter
--- OUTSIDE RECORDS SUMMARY | 2022-07-12 01:01 | XMS_ITS | Encounter Summary ---
:1965 Author Organization [facility] Address [address] [place] [address] Care Team Providers Name Role Phone Ernestina Nowak Primary Care Provider Encounter Details Date Type Department Care Team Description 06/09/2011 Orders Only Neurology at [facility] Jaycob, Ernie Grande MD Chronic migraine [facility] ([address] Drive [address]) [place] [address] NEUROLOGY DEPT. [phone] [place] [id number] Social History Tobacco Use Types Packs/Day Years [...] Peña Woodward MD [facility] PLASTIC SURGERY [place] [address] (Wo rk) 08/19/2022 Office Visit Podiatry Tom Titus DPM [place], [place] [address] (Wo rk) 09/08/2022 Office Visit Internal Medicine Janay Hay MD [facility] GENERAL INTERNAL MEDICINE [place] [id number] (Wo rk) 10/12/2059 Hospital Encounter Surgery Jim Hanley MD [facility] SPINE CENTER [place], [place] [address] (Wo rk) Scheduled Procedures Name [...] migrainosus documented in this encounter Care Teams Jet Man Relationship Specialty Start Date End Date Ernestina Nowak PA PCP - General 09/03/10 04/05/15 [address] [place] [address] documented as of this encounter
--- OUTSIDE RECORDS SUMMARY | 2022-07-12 01:01 | XMS_ITS | Encounter Summary ---
:1965 Author Organization [facility] Address [facility] [place] [address] Care Team Providers Name Role Phone Ernestina Nowak Primary Care Provider Encounter Details Date Type Department Care Team Description 03/05/2012 Orders Only Pain Management at [facility] David Armstrong MD [facility] [place] [address] PAIN CLINIC [phone] [place], [place] [address] (Wo rk) Social History Tobacco [...] [facility] PLASTIC SURGERY [place] [phone] (Wo rk) 08/19/2022 Office Visit Podiatry Tom Titus DPM [place], [place] [address] (Wo rk) 09/08/2022 Office Visit Internal Medicine Janay Hay MD [facility] GENERAL INTERNAL MEDICINE [place], [place] [address] (Wo rk) 10/12/2059 Hospital Encounter Surgery Jim Hanley MD [facility] SPINE CENTER [place], [place] [address] (Wo rk) Scheduled Procedures Name [...] Associated Diagnosis Comme nts FILM LIBRARY Routine 03/05/2012 8:45 AM Results f or this STORAGE ONLY PAIN EDT procedure are in CLINIC C ARM the results section. documented in this encounter Results FILM LIBRARY-STORAGE ONLY PAIN CLINIC C-ARM (03/05/2012 8:45 AM EDT) Specimen (Source) Anatomical Collection Method Collection Time Re ceived Time Location / / Volume Laterality 03/05/2012 8:45 AM EDT Narrative RAD - 04/07/2014 1:35 AM EDT This is a non-reportable exam. Procedure Note Mook Gamble - 04/07/2014Formatting of t his note might be different from the original. This is a non-reportable exam. David Armstrong MD G FILM LIBRARY ORDERABLES Performing Organization Address City/State/ZIP Code Phon e Number [facility] RAD [address] [place] [address] documented in this encounter Visit Diagnoses Not on filedocumented in this encounter Care Teams Machine Greaser Relationship Specialty Start Date End Date Ernestina Nowak PA PCP - General 09/03/10 04/05/15 [address] [place] [address] documented as of this encounter
--- OUTSIDE RECORDS SUMMARY | 2022-07-12 01:01 | XMS_ITS | Encounter Summary ---
:1965 Author Organization [facility] Address [address] [place] [address] Care Team Providers Name Role Phone Ernestina Nowak Primary Care Provider Encounter Details Date Type Department Care Team Description 07/24/2011 Abstract Spine Center at [facility] Cain Butt MD [facility] [place] [address] SPINE CENTER [phone] [place] [address] (Wo rk) Social History Tobacco Use Types [...] MD [facility] PLASTIC SURGERY [place], [place] [address] (Wo rk) 08/19/2022 Office Visit Podiatry Tom Titus DPM [place], [place] [address] (Wo rk) 09/08/2022 Office Visit Internal Medicine Janay Hay MD [facility] GENERAL INTERNAL MEDICINE [place], [place] [address] (Wo rk) 10/12/2059 Hospital Encounter Surgery Jim Hanley MD [facility] SPINE CENTER [place], [place] [address] (Wo rk) Scheduled Procedures Name [...] on filedocumented in this encounter Care Teams Pmo Lead Relationship Specialty Start Date End Date Ernestina Nowak PA PCP - General 09/03/10 04/05/[address] [place] [id number] documented as of this encounter
--- OUTSIDE RECORDS SUMMARY | 2022-07-12 01:01 | XMS_ITS | Encounter Summary ---
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 year old female presents today for scalp psoriasis. ADR: No Known Allergies ROS General: feeling well Skin: denies other skin complaints EXAM General: NAD, pleasant, cooperative Skin: Significant skin findings: A. 4 mm mammillated papule with recent change in size on right upper back B. Scalp is doing very well. Her psoriasis is quiescent at the present. ASSESSMENT/PLAN: A. Irritated Nevus mid-upper back. I discussed this with the patient and recommended a biopsy of thelesion. Procedure: Skin biopsy. Location: right upper back Discussed indications for [...] were reviewed. Follow-up based on pathology results . B. Psoriasis on scalp, well controlled. I discussed this with the patient and recommended she continue to treat this condition when she flares. She should use clobetasol when she flares and back off toTaclonex scalp as she improves. She will wean off as she clears. Call if problems arise. Follow up in 6 months Note initiated by: EDWIGE GORE LPN Routed to physician for review and changes: Jacob Blair MD Section of Dermatology [facility] documented in this encounter Plan of Treatment Upcoming Encounters Date Type Specialty Care Team Description 08/06/2022 Office Visit Plastic Surgery Peña Woodward MD [facility] PLASTIC SURGERY [place] [phone] ( josé luis) 08/19/2022 Office Visit Podiatry Tom Titus DPM [place], [place] [address] ( josé luis) 09/08/2022 Office Visit Internal Medicine Janay Hay MD [facility] GENERAL INTERNAL MEDICINE [place], [place] [address] (Flores ordonez) 10/12/2059 Hospital Encounter Surgery Jim Hanley MD [facility] SPINE CENTER [place], [place] [address] (Flores ordonez) Scheduled Procedures [...] Associated Diagnosis Comme nts SURGICAL PATHOLOGY Routine 03/05/2012 10:16 AM Marisol christine for this REPORT EDT procedure are i n the results section. SPECIMEN TO Routine 03/05/2012 7:38 AM Neoplasm of Results f or this PATHOLOGY EDT unspecified nature procedure are in of bone, soft the results tissue, and skin section. documented in this encounter Results SURGICAL PATHOLOGY REPORT (03/05/2012 10:16 AM EDT) Component Value Ref Test Analysis Performed At [facility] Range Method Time Signature Surgical CERNER Pathology ? [facility] Report ? Provider: ?? JACOB BLAIR III Pt. Name: ?? JOANNA BYNUM ?A ? Acc #: ?[id number] ? Pt. ? Col Date: ?? 2 ? /Sex: ?1965,(46 years),Female ? Rec Date: ?? 03/05/2012 ? LOC: ?4M ? SURGICAL PATHOLOGY ? ---Pathologic Diagnosis--- ? Skin, right upper back, shave biopsy: ? 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 peripheral and deep biopsy edges. ? Dictated by: ??Raiza Henry, DO ? Dermatopathology Fellow ? As the attending phys rigoberto, I attest that I examined the histologic slides, ? and confirm Dr. Raiza Henry's diagnosis. ? CR-0 ? 03/06/12 ? AJE ? 03/09/12 Verified by: ? Contreras MEDINA, Natalia Huertas ? Dermatopatholo gist ? (Electronic Si gnature) [...] Labeled/Fixative: ? Labeled with the patient's na me and medical ? record number, forma laurel. ? Qty/Size/Weight: ?Single shave, 0.5 cm, lyons, wrinkled, unoriented, with ? a domed, glist ening, nodular lesion. ? Sections/Processing: ??Inked. ??Bisected. ??(T1) aje/ SHB ? ---Clinical Information--- ? Specimen Submitted: ? A - Skin, right upper back, shave (1) ? Clinical History/Diagnosis: ? 4-mm mamillated papule with recent change in size; ir ritated nevus Specimen (Source) Anatomical Collection Method Collection Time Re ceived Time Location / / Volume Laterality 03/05/2012 10:16 AM EDT Jacob Blair III, MD PATHOLOGY/CYTOLOGY ORDERABLE S Performing Organization Address City/[facility]/[place] [address] CERDIETER FUENTESENNIUM Specimen to Pathology (surgical or derm) (03/05/2012 7:38 AM EDT) Specimen Anatomical Collection Method Collection Time Receive d Time (Source) Location / / Volume Laterality AP Specimen 03/05/2012 7:38 AM 2 7:46 EDT AM EDT Narrative CERNER MILLENNIUM - 03/05/2012 7:46 AM E DT Specimen requisition ordered. ??Separate Pathology report to follow Jacob Blair III, MD PATHOLOGY/CYTOLOGY ORDERABLE S Performing Organization Address City/State/ZIP [facility] [place] [address] CERNER MILLENNIUM documented in this encounter Visit Diagnoses Diagnosis Neoplasm of unspecified nature of bone, soft tissue, and skin - Primary Scalp psoriasis Other psoriasis Atypical nevus of back Benign neoplasm of skin of trunk, except scrotum documented in this encounter Care Teams Splicing Machine Operator Relationship Specialty Start Date End Date Ernestina Nowak PA PCP - General 09/03/10 04/05/15 [address] [place] [address] documented as of this encounter
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
--- OUTSIDE RECORDS SUMMARY | 2022-07-12 01:01 | XMS_ITS | Encounter Summary ---
:1965 Author Organization [facility] Address [facility] [address] [place] [address] Care Team Providers Name Role Phone Ernestina Nowak Primary Care Provider Reason for Visit Reason Onset Date Comments Follow-up 08/14/2011 Encounter Details Date Type Department Care Team Description 08/14/2011 Telephone Dermatology Jacob Blair III, MD Follow-up [facility] garry [facility] [address] M[place]on [facility] [phone] [place] [address] (Wo rk) Social History Tobacco Use Types [...] Telephone Encounter - Payal Valdez LPN - 08/14/2011 3:42 PM EDT I spoke with patient and she reports that there was some improvement on her scalp. She had not been using the medication as prescribed for the first week. She will try to be more consistent with applying the solution for one week. Instructed to call with questions or concerns. documented in this encounter Plan of Treatment Upcoming Encounters Date Type Specialty Care Team Description 08/06/2022 Office Visit Plastic Surgery Peña Woodward MD [facility] PLASTIC SURGERY [place] [phone] ( josé luis) 08/19/2022 Office Visit Podiatry Tom Titus DPM [place], [place] [address] ([place] [facility]) 09/08/2022 Office Visit Internal Medicine Janay Hay MD [facility] GENERAL INTERNAL MEDICINE [place], [place] [address] ([facility]) 10/12/2059 Hospital Encounter Surgery Jim Hanley MD [facility] SPINE [place], [place] [address] (Wo rk) Scheduled Procedures [...] on filedocumented in this encounter Care Teams Presser And Shaper Knitted Goods Relationship Specialty Start Date End Date Ernestina Nowak PA PCP - General 09/03/10 04/05/15 [address] [place] [address] documented as of this encounter
--- OUTSIDE RECORDS SUMMARY | 2022-07-12 01:01 | XMS_ITS | Encounter Summary ---
:1965 Author Organization [facility] Address [place] [phone] Care Team Providers Name Role Phone Ernestina Nowak Primary Care Provider Reason for Visit Reason Comments Medication Refill Encounter Details Date Type Department Care Team Description 10/17/2011 Refill Dermatology Jacob Blair Dermatitis (Primary Dx) [facility] III, [facility] DR Carbone [facility] [address] [phone] [place] [address] (Wo rk) Social History Tobacco Use Types [...] [facility] PLASTIC SURGERY [place] [id number] ([facility]) 08/19/2022 Office Visit Podiatry Tom Titus DPM [place], [place] [address] ([facility]) 09/08/2022 Office Visit Internal Medicine Janay Hay MD [facility] GENERAL INTERNAL MEDICINE [place], [place] [address] ( rk) 10/12/2059 Hospital Encounter Surgery Jim Hanley MD [facility] SPINE CENTER [place], [place] [address] (Wo josé luis) Scheduled Procedures [...] of this encounter Visit Diagnoses Diagnosis Dermatitis - Primary Contact dermatitis and other eczema, due to unspecified cause documented in this encounter Care Teams U.[place]. Senator Relationship Specialty Start Date End Date Ernestina Nowak PA PCP - General 09/03/10 04/05/15 [address] [place] [address] documented as of this encounter
--- OUTSIDE RECORDS SUMMARY | 2022-07-12 01:01 | XMS_ITS | Encounter Summary ---
:1965 Author Organization [facility] Address [place] [id number] Care Team Providers Name Role Phone Ernestina Nowak Primary Care Provider Reason for Visit Reason Comments Medication Refill Encounter Details Date Type Department Care Team Description 09/12/2011 Refill Dermatology Jacob Blair Psoriasis (Primary Dx) [facility] III, [facility] DR Carbone [facility] [address] [phone] [place] [address] (Wo rk) Social History Tobacco Use Types [...] Woodward MD [facility] PLASTIC SURGERY [place] [phone] ( rk) 08/19/2022 Office Visit Podiatry Tom Titus DPM [place], [place] [address] ( rk) 09/08/2022 Office Visit Internal Medicine Janay Hay MD [facility] GENERAL INTERNAL MEDICINE [place], [place] [address] (Wo rk) 10/12/2059 Hospital Encounter Surgery Jim Hanley MD [facility] SPINE CENTER [place], [place] [address] (Wo rk) Scheduled Procedures Name [...] psoriasis documented in this encounter Care Teams Technical Service Specialist Relationship Specialty Start Date End Date Ernestina Nowak PA PCP - General 09/03/10 04/05/15 [address] [place] [address] documented as of this encounter
--- OUTSIDE RECORDS SUMMARY | 2022-07-12 01:01 | XMS_ITS | Encounter Summary ---
:1965 Author Organization [facility] [place] [address] Care Team Providers Name Role Phone Ernestina Nowak Primary Care Provider Reason for Visit Reason Comments Cervicalgia Encounter Details Date Type Department Care Team Description 07/28/2011 Office Visit Pain Management at David Armstrong, Cervi estuardo radicular pain (Primary Dx); [facility] MD Neuralgia, neuritis, and radiculitis, un specified [facility] [address] Carbone [place] [facility] [id number] [place] [address] [phone] Social History Tobacco Use Types Packs/Day Years [...] Sign Reading Time Taken Comments Blood Pressure 134/86 07/28/2011 8:39 AM EDT Pulse 104 07/28/2011 8:39 AM EDT Temperature - - Respiratory Rate 16 07/28/2011 8:39 AM EDT Oxygen Saturation 97% 07/28/2011 8:39 AM EDT Inhaled Oxygen Concentration - - Weight 112 kg (247 lb) 07/28/2011 8:07 AM EDT Height 165.1 cm (5' 5) 07/28/2011 8:07 AM EDT Body Mass Index 41.1 07/28/2011 8:07 AM EDT documented in this encounter Patient Instructions Patient InstructionsValentina Perez, CHRISTINE - 07/28/2011 8:38 AM EDT Pain Management Center Discharge Instructions: You were seen by Dr. David Armstrong MD who performed cervical epidural steroid injection. [...] your procedure. You received the following medications: Depo-Medrol 80 [...] encounter Progress Notes Valentina Perez LPN - 07/28/2011 8:10 AM EDT Pre-Procedure Screening Questions: 1. Status: No 2. 3. Patient states they have a uke driver to transport after procedure? Yes 4. Patient taking antibiotics at present? No 5. NPO per Pain Management Center protocol? No 6. 7. Patient diabetic: Yes _x_ borderline (not treated with medications) __ managed [...] [ ] Right [x ] Left [ x ] hand [ ] anterior forearm [ ] posterior forearm [ ] AC [ ] upper arm [ ] other: IV Gauge: [ x ] 24G [ ] 22G [ ] 20G After IV insertion completed, IV was secured with occlusive transparent dressing. IV site is patent and intact. Patient is without complaint upon completion of IV insertion. Started by:David Armstrong md Initiated by: Valentina Perez LPN IV Solution: LR 1000ml - rate as directed by proceduralist Total Volume Intravenous Fluid infused documented in the Medication Administration Record (MAR) Site condition at IV removal: [ x] Clear [ ] Bruised [ ] other: Administration of IV anxiolysis procedural medications documented in MAR as ordered by proceduralist documented in this encounter Procedure Notes David Armstrong MD - 07/28/2011 8:55 AM EDTAssociated Order(s): EPIDURAL STEROID INJECTION Procedure(s): EPIDURAL STEROID INJECTION Pre-Procedure Diagnose(s): Cervical radicular pain Cervical Epidural Steroid Injection Date of Service: 07/28/2011 Patient: Emmanuelle Bynum Provider: DAVID ARMSTRONG MD Emmanuelle Bynum has been referred to the Pain Management Center for cervical epidural steroid injection. COMMENTS:The pt has two cervical HNPs with RUE pain. The discs appear more L sided. Ms. Bynum was interviewed and the medical [...] skin entry point and subcutaneous tissues, an 17 gauge Tuohy needle was placed under fluoroscopic guidance and with loss of resistance technique into the epidural space. Upon needle placement and loss of resistance there were no paresthesiae or return of blood or CSF through the needle. An Arrow catheter was thread cephalad to the C6 level right of Omnipaque 240 were injected with clear [...] anxiolysis and analgesia were documented in MAR. She received versed 2mg Follow up plans and appointments were discussed with the Ms. Bynum. Post procedure instruction wasgiven as documented in nursing documentation and having met discharge criteria, she was discharged from the Pain Management Center. COMMENTS: She will f/u as needed for either repeat JOANNE if she gets >3 months relief or R MBB. CC: YUNIOR ALEX @PCPADD@ documented in this encounter Miscellaneous Notes Miscellaneous - Souleymane Retail Wireless Sales Consultant - 08/06/2011 8:33 AM EDT documented in this encounter Plan of Treatment Upcoming Encounters Date Type Specialty Care Team Description 08/06/2022 Office Visit Plastic Surgery Peña Woodward MD [facility] PLASTIC SURGERY [place] [id number] (Flores ordonez) 08/19/2022 Office Visit Podiatry Tom Titus DPM [place], [place] [address] (Wo josé luis) 09/08/2022 Office Visit Internal Medicine Janay Hay MD [facility] GENERAL INTERNAL MEDICINE [place], [place] [address] ( josé luis) 10/12/2059 Hospital Encounter Surgery Jim Hanley MD [facility] SPINE CENTER [place], [place] [address] (Flores ordonez) Scheduled Procedures Name [...] sequela documented as of this encounter Results Epidural steroid injection (08/07/2011 12:39 PM EDT) David Armstrong MD NEUROLOGY ORDERABLES documented in this encounter Visit Diagnoses Diagnosis Cervical radicular pain - Primary Brachial neuritis or radiculitis nos Neuralgia, neuritis, and radiculitis, un specified documented in this encounter Administered Medications Inactive Administered Medications - up to 3 most recent administrations Medication Order MAR Action Action Date Dose Rate Site iohexol (OMNIPAQUE) injection 50 mL Given 07/28/2011 8:50 AM EDT 1 mL 50 mL, Intravenous, ONCE PRN, 1 dose, Starting on 10/17/11 at 0848, Until Thu07/28/11 at 0850, Per Protocol, Routine methylPREDNISolone acetate (depo-MEDROL) Given 07/28/2011 9:15 A M EDT 80 mg injection 40 mg 40 mg, Intramuscular, ONCE, 1 dose, On Thu07/28/11 at 0915, Routine midazolam (VERSED) injection 0.5 mg Given 07/28/2011 8:00 AM EDT 2 mg 0.5 mg, Intravenous, ONCE, 1 dose, On Thu07/28/11 at 0915, Routine documented in this encounter Care Teams Seasoning Mixer Relationship Specialty Start Date End Date Ernestina Nowak PA PCP - General 09/03/10 04/05/15 [address] [place] [address] documented as of this encounter
--- OUTSIDE RECORDS SUMMARY | 2022-07-12 01:01 | XMS_ITS | Encounter Summary ---
:1965 [address] [facility] [place] [address] Care Team Providers Name Role Phone Ernestina Nowak Primary Care Provider Reason for Visit Reason Onset Date Comments Medication Refill 10/17/2011 Encounter Details Date Type Department Care Team Description 10/17/2011 Refill Dermatology Jacob Blair III, Scalp psoriasis; [facility] Kevin castañeda MD Psoriasis [address] [phone] [place] [address] (Wo rk) Social History Tobacco Use Types [...] Encounter - Jacob Blair III, MD - 10/17/2011 11:31 AM EST Pt called . Her scalp psoriasis has flared and she is visiting her daughter in [place]. She needs arefill on Clobetasol scalp giana and taclonex scalp so. She uses the clobetasol first for 2 weeks thenswitches to taclonex 2-3 days a week. She will make a follow-up appointment and we will see her whenshe returns. documented in this encounter Plan of Treatment Upcoming Encounters Date Type Specialty Care Team Description 08/06/2022 Office Visit Plastic Surgery Peña Woodward MD [facility] PLASTIC SURGERY [place], [place] [address] (Wo rk) 08/19/2022 Office Visit Podiatry Tom Titus DPM [place], [place] [address] (Wo rk) 09/08/2022 Office Visit Internal Medicine Janay Hay MD [facility] GENERAL INTERNAL MEDICINE [place], [place] [address] (Wo rk) 10/12/2059 Hospital Encounter Surgery Jim Hanley MD [facility] SPINE CENTER [place], [place] [address] (Wo rk) Scheduled Procedures Name [...] psoriasis documented in this encounter Care Teams Manager Mass Relationship Specialty Start Date End Date Ernestina Nowak PA PCP - General 09/03/10 04/05/15 [address] [place] [address] documented as of this encounter
--- OUTSIDE RECORDS SUMMARY | 2022-07-12 01:01 | XMS_ITS | Encounter Summary ---
:1965 Author Organization [facility] Address [facility] [place] [address] Care Team Providers Name Role Phone Ernestina Nowak Primary Care Provider Reason for Visit Reason Onset Date Comments Other 06/09/2011 MED REFILL Encounter Details Date Type Department Care Team Description 06/09/2011 Telephone Neurology at [facility] Steve Tejada (MED REFILL) [facility] [place] [address] [facility] [phone] NEUROLOGY DEPT. [place], [place] [address] (Wo rk) Social History Tobacco [...] this encounter Miscellaneous Notes Telephone Encounter - Ernie Devries MD - 06/10/2011 9:43 AM EDT Done again) Telephone Encounter - Brianda Le RN - 06/10/2011 9:29 AM EDT Message left for pt at given Contact number to inform rx is all set Telephone Encounter - Ernie Devries MD - 06/09/2011 4:57 PM EDT Please tell her done Telephone Encounter - Greta Madrigal - 06/09/2011 3:27 PM EDT Name of Med: gabapentin Strength of Pills: 600 mg Dosing Directions: x3 a day ==== Name of Med: gabapentin Strength of Pills: 300 mg Dosing Directions: x3 a day Pharmacy: [facility] [place] phone: [phone] Please call the patient when completed so she knows when to pick it up. documented in this encounter Plan of Treatment Upcoming Encounters Date Type Specialty Care Team Description 08/06/2022 Office Visit Plastic Surgery Peña Woodward MD [facility] PLASTIC SURGERY [place], [place] 0[address] (Wo rk) 08/19/2022 Office Visit Podiatry Tom Titus DPM [place], [place] 0375 (Wo rk) 09/08/2022 Office Visit Internal Medicine Janay Hay MD [facility] GENERAL INTERNAL MEDICINE [place], [place] 0[address] (Wo rk) 10/12/2059 Hospital Encounter Surgery Jim Hanley MD [facility] SPINE CENTER [place], [place] 0[address] (Wo rk) Scheduled Procedures Name [...] migrainosus documented in this encounter Care Teams Lumber Tallier Relationship Specialty Start Date End Date Ernestina Nowak PA PCP - General 09/03/10 04/05/15 [address] [place] [address] documented as of this encounter
--- OUTSIDE RECORDS SUMMARY | 2022-07-12 01:01 | XMS_ITS | Encounter Summary ---
:1965 Author Organization [facility] [place] [address] Care Team Providers Name Role Phone Ernestina Nowak Primary Care Provider Reason for Visit Reason Onset Date Comments Pre Procedure Call 04/20/2012 Encounter Details Date Type Department Care Team Description 04/20/2012 Telephone Pain Management at Gillian Shrestha RN P re Procedure Call [facility] [place] [address] Social History Tobacco Use Types Packs/Day Years [...] Telephone Encounter - Gillian Shrestha RN - 04/20/2012 2:05 PM EDT Fluoroscopy Procedure Request Procedure Requested: ANGELINA Date(s) of Last Procedure: 03/05/2012 Did requested procedure relieve pain? __x_ Yes - For how long? Until one week ago Patient taking anticoagulants? __x_ No Emmanuelle is a diabetic on insulin. When she had her last ANGELINA on 03/05/2012, she became very hypoglycemic due to the fasting required for IV anxiolysis. Her blood sugar was approximately 48 during the procedure. I have discussed with her in great detail the issues realted to her diabetes and the required fasting. She will be seeing her PCP, Dr. Ernestina Nowak on , and she will talk with about this topic and get her opinion regarding fasting, insulin, etc. Emmanuelle will call us back if she needs further information or wants to discuss the information she receives from Dr. Nowak. Changes in usual pain pattern or pertinent recent trauma or surgery? _x__ No, patient transferred or will be contacted by assembling machine operator to make appointment for requested procedure. Patient's [...] [facility] PLASTIC SURGERY [place], [place] [address] (Wo rk) 08/19/2022 Office Visit Podiatry Tom Titus DPM [facility] [address] [place], [place] [address] (Wo rk) 09/08/2022 Office Visit Internal Medicine Janay Hay MD [facility] GENERAL INTERNAL MEDICINE [place], [place] 0375 (Wo rk) 10/12/2059 Hospital Encounter Surgery Jim Hanley MD [facility] SPINE CENTER [place], [place] 0375 (Wo rk) Scheduled Procedures Name [...] on filedocumented in this encounter Care Teams Business Planner Relationship Specialty Start Date End Date Ernestina Nowak PA PCP - General 09/03/10 04/05/15 [address] [place] [address] documented as of this encounter
--- OUTSIDE RECORDS SUMMARY | 2022-07-12 01:01 | XMS_ITS | Encounter Summary ---
:1965 Author Organization [facility] Address [facility] [place] [address] Care Team Providers Name Role Phone Ernestina Nowak Primary Care Provider Reason for Visit Reason Comments Migraine Encounter Details Date Type Department Care Team Description 05/18/2012 Office Visit Neurology at [facility] Fenstermacher, Chronic migraine [facility] YUNIOR Driscoll without aura (Primary Drive [facility] Dx) [place] [address] NEUROLOGY DEPT. [phone] [place], [place] [address] Social History Tobacco Use Types [...] Sign Reading Time Taken Comments Blood Pressure 112/73 05/18/2012 12:36 PM EDT Pulse 98 05/18/2012 12:36 PM EDT Temperature - - Respiratory Rate - - Oxygen Saturation - - Inhaled Oxygen Concentration - - Weight 108.9 kg (240 lb) 05/18/2012 12:36 PM EDT Height 165.1 cm (5' 5) 05/18/2012 12:36 PM EDT Body Mass Index 39.94 05/18/2012 12:36 PM EDT documented in this encounter Progress Notes Steve Tejada PA - 05/18/2012 12:46 PM EDT Problem: Chronic migraine Emmanuelle felt she had more headaches during this last cycle but her MIDAS scores were not all that bad. She averaged 10 days of migraine each month. The migraines were quite severe which is one aspect that the Botox has not helped with. Emmanuelle continues to use naproxen for first line treatment and either Sumavel or Vicodin for severe headaches and/or rescue. She continues to struggle with her diabetes control. Her insulin doses continue to increase. Emmanuelle did receive cervical epidural steroid injections today which do provide considerable relief. MIDAS: 67, 30 days of headache, average pain score of 9 Filed Vitals: 05/18/12 1236 BP: 112/73 Pulse: 98 A/P: Chronic migraine. Botox injections were repeated today in the PREEMPT protocol. I did renew Emmanuelle's gabapentin, naproxen sodium, and Vicodin. She will follow-up with Dr. Fuentes for repeat Botox injections. All questions were answered and Emmanuelle was in agreement with the plan. Procedure note: Consent was obtained and a time-out was [...] units divided between 2 sites in the director digital muscles, 5 units into 1 site in [...] MD [facility] PLASTIC SURGERY [place], [place] 0[address] ( josé luis) 08/19/2022 Office Visit Podiatry Tom Titus DPM [place], [place] 0[address] (Flores ordonez) 09/08/2022 Office Visit Internal Medicine Janay Hay MD [facility] GENERAL INTERNAL MEDICINE [place], [place] [address] (Flores ordonez) 10/12/2059 Hospital Encounter Surgery Jim Hanley MD [facility] SPINE [place] [id number] (Wo rk) Scheduled Procedures Name Priority Associated [...] Site botulinum toxin type A (BOTOX) Given 05/18/2012 12:52 PM EDT 155 Units injection 155 Units 155 Units, Intramuscular, ONCE, 1 dose, On Thu05/18/12 at 1315, Routine documented in this encounter Care Teams Fishing Rod Assembler Relationship Specialty Start Date End Date Ernestina Nowak PA PCP - General 09/03/10 04/05/15 [address] [place] [address] documented as of this encounter
--- OUTSIDE RECORDS SUMMARY | 2022-07-12 01:01 | XMS_ITS | Encounter Summary ---
:1965 Author Organization [facility] [place] [address] Care Team Providers Name Role Phone Ernestina Nowak Primary Care Provider Reason for Visit Reason Onset Date Comments Medication Problem 12/17/2011 Pharmacy questioning RX Encounter Details Date Type Department Care Team Description 12/17/2011 Telephone Neurology at [facility] Fenstermacher, Medication Problem [facility] YUNIOR Driscoll (Pharmacy questioning Drive [facility]) [place] [address] NEUROLOGY DEPT. [place], [place] [address] (Wo rk) Social History Tobacco [...] Telephone Encounter - Gilda Cordova LPN - 12/17/2011 2:51 PM EST Pt's PCP had written for Gabapentin and Naproxen. They will put these medications on hold until she needs a new one. Telephone Encounter - Nidhi Townsend - 12/17/2011 2:43 PM EST Pharmacist stating patient is getting two separate prescriptions for the following medications: Gabapentin Naproxen Just an FYI from pharmacist, he is not filling both prescriptions documented in this encounter Plan of Treatment Upcoming Encounters Date Type Specialty Care Team Description 08/06/2022 Office Visit Plastic Surgery Peña Woodward MD [facility] PLASTIC SURGERY [place], [place] [address] (Flores ordonez) 08/19/2022 Office Visit Podiatry Tom Titus DPM [place], [place] 0[address] (Wo rk) 09/08/2022 Office Visit Internal Medicine Janay Hay MD [facility] GENERAL INTERNAL MEDICINE [place], [place] 037 ([facility]) 10/12/2059 Hospital Encounter Surgery Jim Hanley MD [facility] SPINE CENTER [place], [place] [address] ([facility]) Scheduled Procedures Name Priority Associated Diagnoses Date/Time [...] on filedocumented in this encounter Care Teams Impregnator Electrolytic Capacitors Relationship Specialty Start Date End Date Ernestina Nowak PA PCP - General 09/03/10 04/05/15 [address] [place] [address] documented as of this encounter
--- OUTSIDE RECORDS SUMMARY | 2022-07-12 01:01 | XMS_ITS | Encounter Summary ---
:1965 Author Organization [facility] Address [facility] [place] [address] Care Team Providers Name Role Phone Ernestina Nowak Primary Care Provider Encounter Details Date Type Department Care Team Description 06/10/2011 Orders Only Neurology at [facility] Jaycob, Ernie Grande MD Chronic migraine [facility] wit hout aura ([address] Drive [address]) [place] [address] NEUROLOGY DEPT. [phone] [place] [address] Social History Tobacco Use Types Packs/Day Years [...] MD [facility] PLASTIC SURGERY [place] [address] (Wo rk) 08/19/2022 Office Visit Podiatry Tom Titus DPM [place], [place] 0[address] (Wo rk) 09/08/2022 Office Visit Internal Medicine Janay Hay MD [facility] GENERAL INTERNAL MEDICINE [place] [address] (Wo rk) 10/12/2059 Hospital Encounter Surgery Jim Hanley MD [facility] SPINE CENTER [place], [place] 0[address] (Wo rk) Scheduled Procedures Name [...] migrainosus documented in this encounter Care Teams Gear And Spline Grinder Relationship Specialty Start Date End Date Ernestina Nowak PA PCP - General 09/03/10 04/05/15 [address] [place] [address] documented as of this encounter
--- OUTSIDE RECORDS SUMMARY | 2022-07-12 01:01 | XMS_ITS | Encounter Summary ---
:1965 Author Organization [facility] Address [facility] [place] [address] Care Team Providers Name Role Phone Ernestina Nowak Primary Care Provider Reason for Visit Reason Comments Migraine Encounter Details Date Type Department Care Team Description 03/05/2012 Office Visit Neurology at [facility] Fenstermacher, Chronic migraine [facility] YUNIOR Driscoll without aura (Primary Drive [facility] [place]x) [place] [address] NEUROLOGY DEPT. [phone] [place], [place] [address] Social History Tobacco Use Types [...] Sign Reading Time Taken Comments Blood Pressure 120/71 03/05/2012 2:41 PM EDT Pulse 87 03/05/2012 2:41 PM EDT Temperature - - Respiratory Rate - - Oxygen Saturation - - Inhaled Oxygen Concentration - - Weight 112.5 kg (248 lb) 03/05/2012 2:41 PM EDT reporte d Height 165.1 cm (5' 5) 03/05/2012 2:41 PM EDT reported Body Mass Index 41.27 03/05/2012 2:41 PM EDT documented in this encounter Progress Notes Stvee Tejada PA - 03/05/2012 3:15 PM EDT Problem: Chronic migraine Emmanuelle returns for Botox injections. Earlier today she also received cervical epidural steroid injections which seem to have already provided some pain relief. Emmanuelle is still using Sumavel or vicodin for acute treatment. She has not been sleeping well as of late due to neck pain and headaches. Her diabetes medications were recently altered and she is feeling better with better blood sugar control. Filed Vitals: 03/05/12 1441 BP: 120/71 Pulse: 87 A/P: Chronic migraine. We repeated the Botox injections in the PREEMPT protocol. I encouraged Emmanuelle to reschedule her optometry appointment rather than waiting 3 months since her diabetes certainly could cause problems with her eyesight. She will follow-up in 10-11 weeks. All questions were answered and Emmanuelle was [...] units divided between 2 sites in the bus cleaner muscles, 5 units into 1 site in [...] MD [facility] PLASTIC SURGERY [place], [place] 0[address] (Wo josé luis) 08/19/2022 Office Visit Podiatry Tom Titus DPM [place], [place] 0[address] (Wo rk) 09/08/2022 Office Visit Internal Medicine Janay Hay MD [facility] GENERAL INTERNAL MEDICINE [place], [place] 0[address] (Wo rk) 10/12/2059 Hospital Encounter Surgery Jim Hanley MD [facility] SPINE CENTER [place], [place] 0375 (Wo rk) Scheduled Procedures Name [...] Site botulinum toxin type A (BOTOX) Given 03/05/2012 3:18 PM EDT 155 Units injection 155 Units 155 Units, Intramuscular, ONCE, 1 dose, On Thu03/05/12 at 1545, Routine documented in this encounter Care Teams Painter Shipyard Relationship Specialty Start Date End Date Ernestina Nowak PA PCP - General 09/03/10 04/05/15 [address] [place] [address] documented as of this encounter
--- OUTSIDE RECORDS SUMMARY | 2022-07-12 01:01 | XMS_ITS | Encounter Summary ---
:1965 Author Organization [facility] Address [facility] [place] [address] Care Team Providers Name Role Phone Ernestina Nowak Primary Care Provider Reason for Visit Reason Comments Migraine Encounter Details Date Type Department Care Team Description 12/17/2011 Office Visit Neurology at [facility] Fenstermacher, Migraine without aura (Prima ry Dx); [facility] YUNIOR Driscoll Chronic [place] [address] NEUROLOGY DEPT. [phone] [place], [place] 0[address] Social History Tobacco Use Types [...] Reading Time Taken Comments Blood Pressure 139/78 12/17/2011 1:40 PM EST Pulse 121 12/17/2011 1:40 PM EST Temperature - - Respiratory Rate - - Oxygen Saturation - - Inhaled Oxygen Concentration - - Weight 113.4 kg (250 lb) 12/17/2011 1:40 PM EST Height 165.1 cm (5' 5) 12/17/2011 1:40 PM EST Body Mass Index 41.6 12/17/2011 1:40 PM EST documented in this encounter Progress Notes Steve Tejada PA - 12/17/2011 1:45 PM EST Problem: Migraine without aura Emmanuelle had quite a rough few months. While traveling to visit [facility], she developed pneumonia and possibly meningitis. She has recovered from that illness though now she is on antibiotics for a sinus infection. Her headache frequency was essentially unchanged over the past few months. The Botox injections due help to limit days with headache and reduce her disability but have had no impacton the severity of her migraines. MIDAS: 84, 35 days with headache, average pain score of 10 Filed Vitals: 12/17/11 1340 BP: 139/78 Pulse: 121 A/P: Migraine without aura. We repeated the Botox injections today in the PREEMPT protocol. I also renewed several of her medications including gabapentin, Vicodin, Sumavel, and Robaxin. Follow-up willbe in 10-11 weeks. Procedure note: Consent was obtained and a [...] units divided between 2 sites in the lead applier muscles, 5 units into 1 site in [...] any immediate complications. documented in this encounter Miscellaneous Notes Miscellaneous - Sheyla Comer - 01/01/2012 3:01 PM EDT documented in this encounter Plan of Treatment Upcoming Encounters Date Type Specialty Care Team Description 08/06/2022 Office Visit Plastic Surgery Peña Woodward MD [facility] PLASTIC SURGERY [place], [place] [address] (Wo josé luis) 08/19/2022 Office Visit Podiatry Tom Titus DPM [place], [place] 0[address] (Flores ordonez) 09/08/2022 Office Visit Internal Medicine Janay Hay MD [facility] GENERAL INTERNAL MEDICINE [place], [place] [address] (Wo rk) 10/12/2059 Hospital Encounter Surgery Jim Hanley MD [facility] SPINE [place], [place] 037 (Wo rk) Scheduled Procedures Name [...] encounter Visit Diagnoses Diagnosis Migraine without aura - Primary Migraine without aura, without mention o f [...] Site botulinum toxin type A (BOTOX) Given 12/17/2011 1:53 PM EST 155 Units injection 155 Units 155 Units, Intramuscular, ONCE, 1 dose, On Thu12/17/11 at 1415, Routine documented in this encounter Care Teams Embedded Case Manager Relationship Specialty Start Date End Date Ernestina Nowak PA PCP - General 09/03/10 04/05/15 [address] [place] [address] documented as of this encounter
--- OUTSIDE RECORDS SUMMARY | 2022-07-12 01:01 | XMS_ITS | Encounter Summary ---
:1965 Author Organization [facility] [place] [address] Care Team Providers Name Role Phone Ernestina Nowak Primary Care Provider Encounter Details Date Type Department Care Team Description 07/25/2011 Follow-Up Spine Center at [facility] Ninfa Nova, [facility] Kevin castañ[place] [address] Social History Tobacco Use Types Packs/Day [...] Peña Woodward MD [facility] PLASTIC SURGERY [place], [place] [address] (Wo rk) 08/19/2022 Office Visit Podiatry Tom Titus DPM [place], [place] [address] (Wo rk) 09/08/2022 Office Visit Internal Medicine Janay Hay MD [facility] GENERAL INTERNAL MEDICINE [place], [place] [address] (Wo rk) 10/12/2059 Hospital Encounter Surgery Jim Hanley MD [facility] SPINE CENTER [place], [place] [address] (Wo rk) Scheduled Procedures [...] on filedocumented in this encounter Care Teams Field Enumerator Relationship Specialty Start Date End Date Ernestina Nowak PA PCP - General 09/03/10 04/05/15 [address] [place] [address] documented as of this encounter
--- OUTSIDE RECORDS SUMMARY | 2022-07-12 01:01 | XMS_ITS | Encounter Summary ---
:1965 Author Organization [facility] Address [facility] [place] [address] Care Team Providers Name Role Phone Ernestina Nowak Primary Care Provider Reason for Visit Reason Comments Migraine Encounter Details Date Type Department Care Team Description 09/30/2011 Office Visit Neurology at [facility] Fenstermacher, Chronic migraine [facility] YUNIOR Driscoll without aura (Primary Drive [facility] Dx) [place] [address] NEUROLOGY DEPT. [phone] [place], [place] [address] Social History Tobacco Use Types [...] Sign Reading Time Taken Comments Blood Pressure 117/71 09/30/2011 1:53 PM EST Pulse 121 09/30/2011 1:53 PM EST Temperature - - Respiratory Rate - - Oxygen Saturation - - Inhaled Oxygen Concentration - - Weight 108.9 kg (240 lb) 09/30/2011 1:53 PM EST Height 165.1 cm (5' 5) 09/30/2011 1:53 PM EST Body Mass Index 39.94 09/30/2011 1:53 PM EST documented in this encounter Progress Notes Steve Tejada PA - 09/30/2011 2:30 PM EST Problem: Chronic migraine Emmanuelle returns for repeat Botox injections today. She continues to experience relief with the Botox injections and is able to reduce her use of acute medications. She also recently received cervical epidural steroid injections which have also provided significant cervical pain relief. She denies anynew medical issues. MIDAS: 38, 30 days of headache, average pain score of 7 Filed Vitals: 09/30/11 1353 BP: 117/71 Pulse: 121 Assessment: Chronic migraine Plan: We repeated the Botox injections today. I did renew her Vicodin and we discussed proper use ofthat medication. A follow-up will be arranged for 3 months. Procedure note: Consent was obtained and a time-out was taken prior to the procedure. Each injection site was sterilized with 70% isopropyl alcohol. OnabotulinumtoxinA was reconstituted with 0.9% NaCl to create a dilution of 5 units per 0.1mL. Injections were administered with a 30 gauge, 1/2 needle. Injections admin istered as follows and performed bilaterally with injections split equally except for procerus: 20 units divided between 4 sites in the frontalis muscle, 10 units divided between 2 sites in the curriculum consultant muscles, 5 units into 1 site in the procerus muscle, 40 units divided between 8 sites in the temporalis muscles, 30 units divided between 6 sites in the suboccipital region, 20 units divided between4 sites in the cervical paraspinal musculature, and 30 units divided between 6 sites in the trapezii. Total units used= 155. Total injection sites=31. The patient tolerated the procedure without any immediate complications. documented in this encounter Plan of Treatment Upcoming Encounters Date Type Specialty Care Team Description 08/06/2022 Office Visit Plastic Surgery Peañ Woodward MD [facility] PLASTIC SURGERY [place], [place] [address] ([facility]) 08/19/2022 Office Visit Podiatry Tom Titus DPM [place], [place] [address] ( rk) 09/08/2022 Office Visit Internal Medicine Janay Hay MD [facility] GENERAL INTERNAL MEDICINE [place], [place] [address] ( rk) 10/12/2059 Hospital Encounter Surgery Jim Hanley MD [facility] SPINE CENTER [place], [place] [address] ([facility]) Scheduled Procedures Name Priority Associated Diagnoses [...] Site botulinum toxin type A (BOTOX) Given 09/30/2011 2:31 PM EST 155 Units injection 155 Units 155 Units, Intramuscular, ONCE, 1 dose, On Thu09/30/11 at 1500, Routine documented in this encounter Care Teams Shader And Toner Relationship Specialty Start Date End Date Ernestina Nowak PA PCP - General 09/03/10 04/05/15 580 [place] [address] documented as of this encounter
--- OUTSIDE RECORDS SUMMARY | 2022-07-12 01:01 | XMS_ITS | Encounter Summary ---
:1965 Author Organization [facility] Address [facility] [address] [place] [address] Care Team Providers Name Role Phone Ernestina Nowak Primary Care Provider Encounter Details Date Type Department Care Team Description 07/24/2011 Abstract Spine Center at [facility] Cain Butt MD [facility] [place] [address] SPINE CENTER [phone] [place] [id number] (Wo rk) Social History Tobacco Use Types [...] Woodward MD [facility] PLASTIC SURGERY [place], [place] 0[address] (Wo rk) 08/19/2022 Office Visit Podiatry Tom Titus DPM [place], [place] [address] (Wo rk) 09/08/2022 Office Visit Internal Medicine Janay Hay MD [facility] GENERAL INTERNAL MEDICINE [place], [place] [address] (Wo rk) 10/12/2059 Hospital Encounter Surgery Jim Hanley MD [facility] SPINE CENTER [place], [place] [address] (Wo rk) Scheduled Procedures Name [...] filedocumented in this encounter Care Teams Process Design Chemical Engineer Relationship Specialty Start Date End Date Ernestina Nowak PA PCP - General 09/03/10 04/05/[address] [place] [address] documented as of this encounter
--- OUTSIDE RECORDS SUMMARY | 2022-07-12 01:01 | XMS_ITS | Encounter Summary ---
:1965 Author Organization [facility] Address [place] [id number] Care Team Providers Name Role Phone Ernestina Nowak Primary Care Provider Reason for Visit Reason Onset Date Comments Medication Refill 05/11/2012 Encounter Details Date Type Department Care Team Description 05/11/2012 Refill Dermatology Jacob Blair Psoriasis (Primary Dx) [facility] III, [facility] DR Carbone [facility] [address]-DERMAT[address] [phone] [place] [address] (Wo rk) Social History Tobacco Use Types [...] Woodward MD [facility] PLASTIC SURGERY [place] [phone] ( rk) 08/19/2022 Office Visit Podiatry Tom Titus DPM [place] [phone] ([facility]) 09/08/2022 Office Visit Internal Medicine Janay Hay MD [facility] GENERAL INTERNAL MEDICINE [place], [place] [address] ( rk) 10/12/2059 Hospital Encounter Surgery Jim Hanley MD [facility] SPINE CENTER [place], [place] [address] (Flores ordonez) Scheduled Procedures Name [...] psoriasis documented in this encounter Care Teams Ice Handler Relationship Specialty Start Date End Date Ernestina Nowak PA PCP - General 09/03/10 04/05/15 [address] [place] [address] documented as of this encounter
--- OUTSIDE RECORDS SUMMARY | 2022-07-12 01:01 | XMS_ITS | Encounter Summary ---
:1965 Author Organization [place] [address] Care Team Providers Name Role Phone Ernestina Nowak Primary Care Provider Reason for Visit Reason Comments Other wants a procedure Encounter Details Date Type Department Care Team Description 12/24/2011 Telephone Pain Management at [facility] O[facility] r (wants a [place] tilting saw operator) [place] [address] Social History Tobacco Use Types Packs/Day [...] this encounter Miscellaneous Notes Telephone Encounter - Kelly Leslie RN - 12/24/2011 2:09 PM EDT Fluoroscopy Procedure Request Procedure Requested: Repeat injection Date(s) of Last Procedure: 07/28/[address] Armstrong. She also had two ANGELINA's at the [facility] in [place], [place] on 01/30/11 + 10/30/10, in which she received 40 mg Triamcinolone with each procedure. Did requested procedure relieve pain? Not initially, she experienced 3 weeks of increased pain. She then experienced a significant reduction in her pain for two months then her usual pain gradually returned. Patient taking anticoagulants? No Changes in usual pain pattern or pertinent recent trauma or surgery? No. Patient advised that she will be contacted by one of the pattern grader to make an appointment for a repeat ANGELINA with Dr. Armstrong. Patient's questions regarding requested procedure were answered and patient verbalized understanding. Patient knows how to contact the Pain Management Center and understands that she may do so at any time should she have further questions or concerns. documented in this encounter Plan of Treatment Upcoming Encounters Date Type Specialty Care Team Description 08/06/2022 Office Visit Plastic Surgery Peña Woodward MD [facility] PLASTIC SURGERY [place], [place] [address] (Wo rk) 08/19/2022 Office Visit Podiatry Tom Titus DPM [place], [place] [address] (Wo rk) 09/08/2022 Office Visit Internal Medicine Janay Hay MD [facility] GENERAL INTERNAL MEDICINE [place], [place] [address] (Wo rk) 10/12/2059 Hospital Encounter Surgery Jim Hanley MD [facility] SPINE CENTER [place], [place] [address] [...] on filedocumented in this encounter Care Teams Homoeopath Relationship Specialty Start Date End Date Ernestina Nowak PA PCP - General 09/03/10 04/05/15 [address] [place] [address] documented as of this encounter
--- OUTSIDE RECORDS SUMMARY | 2022-07-12 01:01 | XMS_ITS | Encounter Summary ---
:1965 Author Organization [facility] [place] [address] Care Team Providers Name Role Phone Ernestina Nowak Primary Care Provider Reason for Visit Reason Comments Neck And Back Pain Encounter Details Date Type Department Care Team Description 07/25/2011 Office Visit [facility] [place] (Primary Dx) Raf MEDINA [facility] [address] DR Carbone [place] SP[facility] CENTER [id number] [place] [address] [phone] Social History Tobacco Use Types Packs/Day Years [...] - Inhaled Oxygen Concentration - - Weight 112 kg (247 lb) 07/25/2011 1:24 PM EDT Height 165.1 cm (5' 5) 07/25/2011 1:24 PM EDT Body Mass Index 41.1 07/25/2011 1:24 PM EDT documented in this encounter Progress Notes Cain Butt MD - 07/25/2011 3:22 PM EDT Chief complaint: Neck and right arm pain Subjective:The chief complaint requiring rehabilitation is neck, right scapula. and right upper extremity pain with weakness and sensory loss in the right upper extremity. Also describes secondary low back pain with no associated lower extremity symptoms. Anatomic diagnoses have included herniated discs. Prior treatments included medications, steroid injections, and physical therapy. Her history is carefully detailed in her electronic medical recordNotably she has seen Dr. Yoon who felt that surgical intervention was not indicated., Planning to have medial branch blocks next week due to scheduling problems today. Patient Active Problem List Diagnoses Code ??? 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 Chronic migraine without aura 346.70A ??? Whiplash 847.0H ??? Leukocytosis 288.60C ??? Asthma 493.90AE ??? Diabetes mellitus 250.00A ??? Hypothyroid 244.9AR ??? Depression 311L ??? GERD (gastroesophageal reflux disease) 530.81S ??? Chronic UTI 599.0AG ??? Sleep apnea 780.57C ??? Bilateral shoulder pain 719.41AR ??? Carpal tunnel syndrome on both sides 354.0Z ??? Left elbow pain 719.42N ??? Ankle weakness Objective: Her affect is relatively bright. Her cervical range of motion is important for reproducing her neck pain primarily with extension and then with Spurling's maneuver she does have some pain radiating into the right arm. Breast examination was not repeated but her functional testing was reviewed with the physical therapy staff from earlier today. Assessment: This is the chief complaint of neck and right arm pain with some degree of cervical spondylosis identified on her previous imaging at currently with anticipated medial branch block and consideration of radiofrequency ablation. Her functional testing does identify that she has significant li mitations. We've discussed all this for 20 this 30 minute visit and is mutually decided to prioritize things as follows. Recommendations: She is going to return for sitting next week for her pain intervention, presumably medial branch block and consideration of radiofrequency ablation and then we'll plan to followup withher on an as-needed basis if she does not have a satisfactory results with that to reconsider her rehabilitation options. documented in this encounter Miscellaneous Notes Miscellaneous - Sheyla Comer - 11/27/2011 4:54 PM EST documented in this encounter Plan of Treatment Upcoming Encounters Date Type Specialty Care Team Description 08/06/2022 Office Visit Plastic Surgery Peña Woodward MD [facility] PLASTIC SURGERY [place], [place] [address] (Flores ordonez) 08/19/2022 Office Visit Podiatry Tom Titus DPM [place], [place] [address] (Flores ordonez) 09/08/2022 Office Visit Internal Medicine Janay Hay MD [facility] GENERAL INTERNAL MEDICINE [place], [place] [address] (Wo rk) 10/12/2059 Hospital Encounter Surgery Jim Hanley MD [facility] SPINE CENTER [place], [place] [address] (Wo rk) Scheduled Procedures Name [...] Diagnosis Whiplash - Primary Sprain of neck documented in this encounter Care Teams Smoking Pipe Mounter Relationship Specialty Start Date End Date Ernestina Nowak PA PCP - General 09/03/10 04/05/15 [address] [place] [address] documented as of this encounter
--- OUTSIDE RECORDS SUMMARY | 2022-07-12 01:01 | XMS_ITS | Encounter Summary ---
:1965 Author Organization [facility] Address [place] [id number] Care Team Providers Name Role Phone Ernestina Nowak Primary Care Provider Encounter Details Date Type Department Care Team Description 07/25/2011 Follow-Up Dermatology Jacob Blair Psoriasis (Primary Dx); [facility] III[facility] [place] [address] [place] [phone] (Wo rk) Social History Tobacco Use Types [...] Progress Notes Jacob Blair III, MD - 07/25/2011 10:52 AM EDT DERMATOLOGY ESTABLISHED PATIENT CLINIC NOTE Date of service: 07/25/2011 Emmanuelle Bynum : 1965 Provider: Jacob Blair MD PROBLEM: scalp psoriasis SKIN HISTORY: long history of scalp psoriasis HPI: Emmanuelle Bynum is a 45 y.o. year old female presents today for scalp psoriasis. She reports thatthe plaques are not responding to the medications. She uses Taclonex giana 2-3 times a week, but it isnot controlling her lesions. ADR: No Known Allergies ROS General: feeling well Skin: denies other skin complaints EXAM General: NAD, pleasant, cooperative Skin: Significant skin findings: A. Scattered well-demarcated, thick erythematous plaques with silvery scale distributed on occiptialscalp . ASSESSMENT/PLAN: A. Scalp psoriasis . I discussed this condition with the patient and recommended Clobetasol giana BID for 2 weeks, then taclonex on the weekends if needed , reserving the clobetasol for flares. Rx: Taclonex q hs for 2-3 nights per week for maintenance on weekends Clobetasole scalp giana 50ml apply sparingly bid for up to 2 weeks; reserve further use for flares. Phone office in 2 weeks with update on scalp Follow up in 3-4 months or sooner if needed Note initiated by: EDWIGE GORE LPN Routed to physician for review and changes: Jacob Blair MD Section of Dermatology [facility] documented in this encounter Plan of Treatment Upcoming Encounters Date Type Specialty Care Team Description 08/06/2022 Office Visit Plastic Surgery Peña Woodward MD [facility] PLASTIC SURGERY [place], [place] [address] (Wo rk) 08/19/2022 Office Visit Podiatry Tom Titus DPM [place], [place] [address] (Wo rk) 09/08/2022 Office Visit Internal Medicine Janay Hay MD [facility] GENERAL INTERNAL MEDICINE [place], [place] [address] (Wo rk) 10/12/2059 Hospital Encounter Surgery Jim Hanley MD [facility] SPINE CENTER [place], [place] [address] (Wo rk) Scheduled Procedures Name [...] Diagnoses Diagnosis Psoriasis - Primary Other psoriasis Scalp psoriasis Other psoriasis documented in this encounter Care Teams Site Safety Coordinator Relationship Specialty Start Date End Date Ernestina Nowak PA PCP - General 09/03/10 04/05/15 [address] [place] [address] documented as of this encounter
--- OUTSIDE RECORDS SUMMARY | 2022-07-12 01:01 | XMS_ITS | Encounter Summary ---
:1965 Author Organization [facility] Address [place] [id number] Care Team Providers Name Role Phone Ernestina Nowak Primary Care Provider Reason for Visit Reason Comments Neck Pain Encounter Details Date Type Department Care Team Description 07/25/2011 [facility] [place] [address] Chronic neck pain [place] Unknown None (Primary Dx) [facility] Jos Manzanares MD [facility] DR PAIN CLINIC [place] [id number] [place] [phone] Social History Tobacco Use Types Packs/Day [...] Reading Time Taken Comments Blood Pressure 128/72 07/25/2011 2:20 PM EDT Pulse - - Temperature - - Respiratory Rate - - Oxygen Saturation - - Inhaled Oxygen Concentration - - Weight - - Height - - Body Mass Index - - documented in this encounter Progress Notes Dash Peters, PT - 07/25/2011 2:12 PM EDT GOALS AND PHYSICAL CAPACITIES EVALUATION The chief complaint requiring rehabilitation is neck, right scapula, and right upper extremity pain with weakness and sensory loss in the right upper extremity. Also describes secondary low back pain with no associated lower extremity symptoms. Anatomic diagnoses have included herniated discs. Prior tr eatments included medications, steroid injections, and physical therapy. Planning to have repeat ANGELINA next week. Intends to pursue medial branch blocks beyond that if needed. Patient Active Problem List Diagnoses Code ??? [...] Left elbow pain 719.42N ??? Ankle weakness 719.67N Personal Function 3 Month Goals Vocational: None. Currently receives SSI and SSDI. Recreational: Establish a daily walking and exercise routine. Lose 100 pounds. Resume sewing. Daily Living: Sleep in a bed, wash dishes daily, cook daily. PHYSICAL EVALUATION Gait: normal. AROM (degrees): Lumbar Spine Flexion (0-90) 50 Extension (0-30) 10 Cervical Spine Flexion (0-60) 40 Extension (0-50) 5 Rot. Right (0-80) 50 Rot. Left (0-80) 45 Lat. Flex Right (0-45) 15 Lat. Flex Left (0-45) 15 Endurance Testing: Modified Ramp Treadmill Test Minutes Completed 3 % Grade 10 Speed (mph) 1.7 MET/HR 4 / 132 Reason for Stop Point: pain Functional Strength Testing: PILE Testing lbs/HR Floor To Waist 5 / 110 Waist to Shoulder 0 / 105 Reason for Stop Point: pain During physical testing, participation level varied. Demand Levels of Functional Recovery Goals Current Capacity Limit / Physical Demand Level (PDL) Vocational: Not applicable Recreational: Light Daily Living: Light Below Sedentary The PDL listed above is based on today's physical performance screening tests. More comprehensive physical testing integrated with clinical findings would be required to derive an accurate work capacity. ASSESSMENT OF FUNCTIONAL TESTING: Based on today???s physical capacity findings, multidisciplinary intensive physical rehabilitation would not effectively meet Emmanuelle's needs at this time. The following reasons preclude participationat the present time: Emmanuelle believes further testing or treatment is needed prior to any attempt to increase physical capacities. PLAN: Medical consult in the Spine Center to discuss treatment options. Total time for testin minutes documented in this encounter Plan of Treatment Upcoming Encounters Date Type Specialty Care Team Description 08/06/2022 Office Visit Plastic Surgery Peña Woodward MD [facility] PLASTIC SURGERY [place], [place] [address] (Wo rk) 08/19/2022 Office Visit Podiatry Tom Titus DPM [place], [place] [address] (Wo rk) 09/08/2022 Office Visit Internal Medicine Janay Hay MD [facility] GENERAL INTERNAL MEDICINE [place], [place] [address] (Wo rk) 10/12/2059 Hospital Encounter Surgery Jim Hanley MD [facility] DR SPINE CENTER [place], [place] [address] (Wo rk) Scheduled Procedures Name [...] of this encounter Visit Diagnoses Diagnosis Chronic neck pain - Primary Cervicalgia documented in this encounter Care Teams Guide Relationship Specialty Start Date End Date Ernestina Nowak PA PCP - General 09/03/10 04/05/15 [address] [place] [address] documented as of this encounter
--- OUTSIDE RECORDS SUMMARY | 2022-07-12 01:01 | XMS_ITS | Encounter Summary ---
:1965 Author Organization [facility] Address [facility] [address] Care Team Providers Name Role Phone Ernestina Nowak Primary Care Provider Reason for Visit Reason Onset Date Comments Other 03/05/2012 Encounter Details Date Type Department Care Team Description 03/05/2012 Telephone Neurology at [facility] Steve Tejada, Other [facility] [place] [phone] [facility] [phone] NEUROLOGY DEPT. [place], [place] [address] (Wo rk) Social History Tobacco [...] Telephone Encounter - Gilda Cordova LPN - 03/10/2012 9:17 AM EDT LMOM informing pt that Rx was mailed. Telephone Encounter - Steve Tejada PA - 03/10/2012 7:43 AM EDT Rx signed and handed to Gilda to be mailed. Telephone Encounter - Tony Steele - 03/05/2012 4:25 PM EDT Patient stated that she left her prescription in Steve's office. Patient is requesting that it be mailed to her. Patient also requests that she be called to confirm that it has been mailed. Please call. documented in this encounter Plan of Treatment Upcoming Encounters Date Type Specialty Care Team Description 08/06/2022 Office Visit Plastic Surgery Peña Woodward MD [facility] PLASTIC SURGERY [place] [address] ([facility]) 08/19/2022 Office Visit Podiatry Tom Titus DPM [place] [address] ([facility]) 09/08/2022 Office Visit Internal Medicine Janay Hay MD [facility] GENERAL INTERNAL MEDICINE [place] [address] ([facility]) 10/12/2059 Hospital Encounter Surgery Jim Hanley MD [facility] SPINE CENTER [place] [address] ([facility]) Scheduled Procedures Name Priority Associated Diagnoses Date/Time [...] on filedocumented in this encounter Care Teams Farm Consultant Relationship Specialty Start Date End Date Ernestina Nowak PA PCP - General 09/03/10 04/05/15 [address] [place] [address] documented as of this encounter
--- OUTSIDE RECORDS SUMMARY | 2022-07-12 01:01 | XMS_ITS | Encounter Summary ---
:1965 Author Organization [facility] Address [facility] [place] [address] Care Team Providers Name Role Phone Ernestina Nowak Primary Care Provider Reason for Visit Reason Comments Migraine Encounter Details Date Type Department Care Team Description 07/25/2011 Office Visit Neurology at [facility] Fenstermacher, Chronic migraine [facility] YUNIOR Driscoll without aura (Primary Drive [facility] Dx) [place] [address] NEUROLOGY DEPT. [phone] [place], [place] [address] Social History Tobacco Use Types [...] Sign Reading Time Taken Comments Blood Pressure 130/88 07/25/2011 11:23 AM EDT Pulse 114 07/25/2011 11:23 AM EDT Temperature - - Respiratory Rate - - Oxygen Saturation - - Inhaled Oxygen Concentration - - Weight 112 kg (247 lb) 07/25/2011 11:23 AM EDT Height 165.1 cm (5' 5) 07/25/2011 11:23 AM EDT Body Mass Index 41.1 07/25/2011 11:23 AM EDT documented in this encounter Progress Notes Steve Tejada PA - 07/25/2011 12:11 PM EDT Problem: Chronic migraine Emmanuelle had a few more migraines over the past 3 months which she attributes to stress and neck pain. She has been using the Robaxin but feels the dose could be increased. She is scheduled for cervical injections and possibly radiofrequency ablation if I understand matter correctly. She reports no current issues with her mood and no suicidal ideations. MIDAS: 51, 28 days of headache, average pain score of 8 Assessment: Chronic migraine Plan: We repeated the Botox injections today. I am interested to see how her migraines respond to the cervical spine interventions. I renewed her Vicodin and increased the Robaxin dose to 750 mg three times daily as needed. We will schedule an appointment for late September, just prior to when she leaves for [place]. Procedure note: Consent was obtained and a time-out was taken prior to the procedure. Each injection site was sterilized with 70% isopropyl alcohol. OnabotulinumtoxinA was reconstituted with 0.9% NaCl to create a dilution of 5 units per 0.1mL. Injections were administered with a 30 gauge, 1/2 needle. Injections admin istered as follows: 20 units divided between 4 sites in the frontalis muscle, 10 units divided between 2 sites in the manager urology muscles, 5 units into 1 site in the procerus muscle, 40 units divided between 8 sites in the temporalis muscles, 30 units divided between 6 sites in the suboccipital region,20 units divided between 4 sites in the cervical paraspinal musculature, and 30 units divided between 6 sites in the trapezii. Total units used= 155. Total injection sites=31. The patient tolerated theprocedure without any immediate complications. documented in this encounter Plan of Treatment Upcoming Encounters Date Type Specialty Care Team Description 08/06/2022 Office Visit Plastic Surgery Peña Woodward MD [facility] PLASTIC SURGERY [place], [place] [address] ( josé luis) 08/19/2022 Office Visit Podiatry Tom Titus DPM [place], [place] [address] ( jos[place] luis) 09/08/2022 Office Visit Internal Medicine Janay Hay MD [facility] GENERAL INTERNAL MEDICINE [place], [place] [address] ( rk) 10/12/2059 Hospital Encounter Surgery Jim Hanley MD [facility] SPINE CENTER [place], [place] [address] ( josé luis) Scheduled Procedures [...] Site botulinum toxin type A (BOTOX) Given 07/25/2011 12:13 PM EDT 155 Units injection 155 Units 155 Units, Intramuscular, ONCE, 1 dose, On Thu07/25/11 at 1230, Routine documented in this encounter Care Teams Customer Relations Advisor Relationship Specialty Start Date End Date Ernestina Nowak PA PCP - General 09/03/10 04/05/15 [address] [place] [address] documented as of this encounter
--- OUTSIDE RECORDS SUMMARY | 2022-07-12 01:02 | XMS_ITS | Encounter Summary ---
:1965 Author Organization [facility] [place] [address] Care Team Providers Name Role Phone Ernestina Nowak Primary Care Provider Encounter Details Date Type Department Care Team Description 11/05/2010 Follow-Up Sleep Medicine Yary Lee, [facility] Kevin castañ[place] [address] [facility] [phone] PS[address]CH[address]RY DEPT. [place] [address] (Wo rk) Social History Tobacco Use Types Packs/Day Years Used Date Never Assessed Physical Activity Answer Date Recorded On average, [...] MD [facility] PLASTIC SURGERY [place], [place] [address] (Wo rk) 08/19/2022 Office Visit Podiatry Tom Titus DPM [place] [phone] (Wo rk) 09/08/2022 Office Visit Internal Medicine Janay Hay MD [facility] GENERAL INTERNAL MEDICINE [place], [place] [address] (Wo rk) 10/12/2059 Hospital Encounter Surgery Jim Hanley MD [facility] SPINE CENTER [place] [phone] (Wo rk) Scheduled Procedures Name Priority Associated [...] on filedocumented in this encounter Care Teams Mail Handler Relationship Specialty Start Date End Date Ernestina Nowak PA PCP - General 09/03/10 04/05/15 [address] [place] [address] documented as of this encounter
--- OUTSIDE RECORDS SUMMARY | 2022-07-12 01:02 | XMS_ITS | Encounter Summary ---
:1965 Author Organization [facility] Address [facility] [address] [place] [address] Care Team Providers Name Role Phone Ernestina Nowak Primary Care Provider Reason for Visit Reason Comments Migraine Encounter Details Date Type Department Care Team Description 04/23/2011 Office Visit Neurology at [facility] Fenstermacher, Chronic migraine [facility] YUNIOR Driscoll without aura (Primary Drive [facility] Dx) [place] [address] NEUROLOGY DEPT. [phone] [place], [place] [address] Social History Tobacco Use Types Packs/Day Years Used Date Current Every Day Smoker 0.5 13 Smokeless Tobacco: Never Used Tobacco [...] Sign Reading Time Taken Comments Blood Pressure 108/68 04/23/2011 11:03 AM EDT Pulse 108 04/23/2011 11:03 AM EDT Temperature - - Respiratory Rate - - Oxygen Saturation - - Inhaled Oxygen Concentration - - Weight 117 kg (258 lb) 04/23/2011 11:03 AM EDT Height 165.1 cm (5' 5) 04/23/2011 11:03 AM EDT Body Mass Index 42.93 04/23/2011 11:03 AM EDT documented in this encounter Progress Notes Steve Tejada PA - 04/23/2011 11:17 AM EDT Problem: Chronic migraine Emmanuelle faired quite well with her migraine control until the past 2-3 weeks when the effects from the Botox injections seem to have worn off. She does feel that there was improvement with the change in protocol used for the Botox injections. During these past few weeks, she has had migraines almost daily. She uses most of her acute medications during these last 2-3 weeks in various combinations. She reports no changes in her mood and no new medical issues. ROS: Negative except as noted above. Exam: Filed Vitals: 04/23/11 1103 BP: 108/68 Pulse: 108 General: Alert and oriented. NAD. Neuro: Full exam not performed today. MIDAS: 12, 14 days of migraine, average pain score of 8 Assessment: Chronic migraine without aura, depression Plan: We repeated the Botox injections again today in the PREEMPT protocol. We did discuss the appropriate use of her acute medications and I did provide refills of her medications. We decided to increase the quantity of Robaxin to #45 per month as she does find that medication particularly helpful. We will arrange for a 3 month follow-up appointment to repeat the Botox injections. Procedure note: Consent was obtained and a [...] units divided between 2 sites in the human development professor muscles, 5 units into 1 site in [...] patient tolerated theprocedure without any immediate complications. Total time: 15 minutes Counselin minutes re: treatment plan, proper use of acute medications documented in this encounter Plan of Treatment Upcoming Encounters Date Type Specialty Care Team Description 08/06/2022 Office Visit Plastic Surgery Peña Woodward MD [facility] PLASTIC SURGERY [place], [place] 0[address] (Wo rk) 08/19/2022 Office Visit Podiatry Tom Titus DPM [place], [place] 0375 (Wo rk) 09/08/2022 Office Visit Internal Medicine Janay Hay MD [facility] GENERAL INTERNAL MEDICINE [place], [place] 0375 (Wo rk) 10/12/2059 Hospital Encounter Surgery Jim Hanley MD [facility] SPINE [place], [place] 0375 (Wo rk) Scheduled Procedures Name [...] Site botulinum toxin type A (BOTOX) Given 04/23/2011 11:22 AM EDT 155 Units injection 155 Units 155 Units, Intramuscular, ONCE, 1 dose, On Thu04/23/11 at 1145, Routine documented in this encounter Care Teams Shaker Tender Relationship Specialty Start Date End Date Ernsetina Nowak PA PCP - General 09/03/10 04/05/15 580 [place] [address] documented as of this encounter
--- OUTSIDE RECORDS SUMMARY | 2022-07-12 01:02 | XMS_ITS | Encounter Summary ---
:1965 Author Organization [facility] Address [facility] [place] [address] Care Team Providers Name Role Phone Ernestina Nowak Primary Care Provider Encounter Details Date Type Department Care Team Description 09/03/2010 Follow-Up Dermatology Jacob Blair III, MD [facility] Kevin [facility] DR Mchughon [facility]-DERMATOL[place] [phone] [place], [place] [address] (Wo rk) Social History Tobacco [...] [facility] PLASTIC SURGERY [place] [phone] (Wo rk) 08/19/2022 Office Visit Podiatry Tom Titus DPM [place] [phone] (Wo rk) 09/08/2022 Office Visit Internal Medicine Janay Hay MD [facility] GENERAL INTERNAL MEDICINE [place] [phone] (Wo rk) 10/12/2059 Hospital Encounter Surgery Jim Hanley MD [facility] SPINE CENTER [place] [phone] (Wo rk) Scheduled Procedures Name Priority Associated [...] on filedocumented in this encounter Care Teams Lathe Winder Relationship Specialty Start Date End Date Ernestina Nowak PA PCP - General 09/03/10 04/05/15 [address] [place] [address] documented as of this encounter
--- OUTSIDE RECORDS SUMMARY | 2022-07-12 01:02 | XMS_ITS | Encounter Summary ---
:1965 Author Organization [facility] Address [place] [id number] Care Team Providers Name Role Phone Ernestina Nowak Primary Care Provider Reason for Visit Reason Onset Date Comments Medication Refill 05/02/2011 Encounter Details Date Type Department Care Team Description 05/02/2011 Refill Dermatology Jacob Blair Psoriasis (Primary Dx) [facility] III, [facility] DR Carbone [facility] [address]-DERMATOLGY [phone] [place] [address] (Wo rk) Social History Tobacco Use Types [...] this encounter Miscellaneous Notes Telephone Encounter - Jerardo Coppola MD - 05/02/2011 7:15 PM EDT Patient states has spoken with Dr. Blair's nurse twice about having refills of betamethasone but each time prescription did not go through. States she is usually well-controlled with taclonex, but often needs betamethasone for flares. Prescribed refills of both today, encouraging her to step down to taclonex once under control. She is tentatively scheduled for f/u with Dr. Blair in July. Patient understands and agrees. documented in this encounter Plan of Treatment Upcoming Encounters Date Type Specialty Care Team Description 08/06/2022 Office Visit Plastic Surgery Peña Woodward MD [facility] PLASTIC SURGERY [place], [place] 43[address] (Wo rk) 08/19/2022 Office Visit Podiatry Tom Titus DPM [place], [place] 1048 (Wo rk) 09/08/2022 Office Visit Internal Medicine Janay Hay MD [facility] GENERAL INTERNAL MEDICINE [place], [place] 0375 (Wo rk) 10/12/2059 Hospital Encounter Surgery Jim Hanley MD [facility] SPINE CENTER [place], [place] 0375 (Wo rk) Scheduled Procedures Name [...] psoriasis documented in this encounter Care Teams Quebracho Tanner Relationship Specialty Start Date End Date Ernestina Nowak PA PCP - General 09/03/10 04/05/[address] [place] [address] documented as of this encounter
--- OUTSIDE RECORDS SUMMARY | 2022-07-12 01:02 | XMS_ITS | Encounter Summary ---
:1965 Author Organization [facility] Address [facility] [place] [address] Care Team Providers Name Role Phone Ernestina Nowak Primary Care Provider Reason for Visit Reason Onset Date Comments Medication Refill 05/02/2011 Encounter Details Date Type Department Care Team Description 05/02/2011 Refill Dermatology Jacob Blair III, MD [facility] Kevin castañeda [facility] DR Carbone [facility] [facility] [address]-DERMATOLGY [phone] [place] [phone] (Wo rk) Social History Tobacco Use Types [...] MD [facility] PLASTIC SURGERY [place] [phone] ( rk) 08/19/2022 Office Visit Podiatry Tom Titus DPM [place] [phone] ( rk) 09/08/2022 Office Visit Internal Medicine Janay Hay MD [facility] GENERAL INTERNAL MEDICINE [place] [phone] (Wo rk) 10/12/2059 Hospital Encounter Surgery Jim Hanley MD [facility] SPINE CENTER [place] [phone] (Wo rk) Scheduled Procedures Name Priority Associated [...] on filedocumented in this encounter Care Teams Drum Saw Operator Relationship Specialty Start Date End Date Ernestina Nowak PA PCP - General 09/03/10 04/05/15 580 [place] [address] documented as of this encounter
--- OUTSIDE RECORDS SUMMARY | 2022-07-12 01:02 | XMS_ITS | Encounter Summary ---
:1965 Author Organization [facility] [address] Care Team Providers Name Role Phone Ernestina Nowak Primary Care Provider Encounter Details Date Type Department Care Team Description 04/22/2011 [address] [facility] Shellie Evans RN [facility] Kevin castañ[place] [address] Social History Tobacco Use Types Packs/Day Years Used Date Current Every Day Smoker 0.5 Alcohol Use Standard Drinks/Week Comments No 0 [...] MD [facility] PLASTIC SURGERY [place] [phone] (Wo rk) 08/19/2022 Office Visit Podiatry Tom Titus DPM [place] [phone] (Wo rk) 09/08/2022 Office Visit Internal Medicine Janay Hay MD [facility] GENERAL INTERNAL MEDICINE [place] [phone] (Wo rk) 10/12/2059 Hospital Encounter Surgery Jim Hanley MD [facility] SPINE CENTER [place] [phone] (Wo rk) Scheduled Procedures Name Priority Associated [...] on filedocumented in this encounter Care Teams Nutrition Program Instructor Relationship Specialty Start Date End Date Ernestina Nowak PA PCP - General 09/03/10 04/05/15 580 [place] [address] documented as of this encounter
--- OUTSIDE RECORDS SUMMARY | 2022-07-12 01:02 | XMS_ITS | Encounter Summary ---
:1965 Author Organization [facility] Address [facility] [place] [address] Care Team Providers Name Role Phone Ernestina Nowak Primary Care Provider Encounter Details Date Type Department Care Team Description 04/22/2011 Abstract Neurology at [facility] Steve Tejada, [facility] [place] [address] [facility] [phone] NEUROLOGY DEPT. [place], [place] 0[address] (Wo rk) Social History Tobacco [...] MD [facility] PLASTIC SURGERY [place], [place] 0375 (Wo rk) 08/19/2022 Office Visit Podiatry Tom Titus DPM [place], [place] 0375 (Wo rk) 09/08/2022 Office Visit Internal Medicine Janay Hay MD [facility] GENERAL INTERNAL MEDICINE [place], [place] 0375 (Wo rk) 10/12/2059 Hospital Encounter Surgery Jim Hanley MD [facility] SPINE CENTER [place], [place] 0375 (Wo rk) Scheduled Procedures Name [...] on filedocumented in this encounter Care Teams Underwriting Manager Relationship Specialty Start Date End Date Ernestina Nowak PA PCP - General 09/03/10 04/05/15 [address] [place] [address] documented as of this encounter
--- OUTSIDE RECORDS SUMMARY | 2022-07-12 01:02 | XMS_ITS | Encounter Summary ---
:1965 Author Organization [facility] Address [facility] [place] [address] Care Team Providers Name Role Phone Ernestina Nowak Primary Care Provider Reason for Visit Reason Onset Date Comments Medication Refill 04/29/2011 Encounter Details Date Type Department Care Team Description 04/29/2011 Refill Dermatology Jacob Blair III, MD [facility] Kevin castañeda [facility] DR Carbone [facility]56 [facility] [address]-DERMATOLGY [phone] [place] [phone] (Wo rk) Social History Tobacco Use Types [...] Woodward MD [facility] PLASTIC SURGERY [place] [phone] ( rk) 08/19/2022 Office Visit Podiatry Tom Titus DPM [place] [phone] ( rk) 09/08/2022 Office Visit Internal Medicine Janay Hay MD [facility] GENERAL INTERNAL MEDICINE [place] [phone] (Wo rk) 10/12/2059 Hospital Encounter Surgery Jim Hanley MD [facility] SPINE CENTER [place] [phone] (Wo rk) Scheduled Procedures Name Priority Associated [...] filedocumented in this encounter Care Teams Business Law Instructor Relationship Specialty Start Date End Date Ernestina Nowak PA PCP - General 09/03/10 04/05/15 [address] [place] [address] documented as of this encounter
--- OUTSIDE RECORDS SUMMARY | 2022-07-12 01:02 | XMS_ITS | Encounter Summary ---
:1965 Author Organization [facility] Address [facility] [place] [address] Care Team Providers Name Role Phone Ernestina Nowak Primary Care Provider Reason for Visit Reason Comments Medication Refill Encounter Details Date Type Department Care Team Description 04/10/2011 Refill Neurology at [facility] Steve Tejada, [facility] [place] [address] [facility] [phone] NEUROLOGY DEPT. [place], [place] 0375 (Wo rk) Social History Tobacco [...] MD [facility] PLASTIC SURGERY [place] [phone] (Wo rk) 08/19/2022 Office Visit Podiatry Tom Titus DPM [place] [phone] (Wo rk) 09/08/2022 Office Visit Internal Medicine Janay Hay MD [facility] GENERAL INTERNAL MEDICINE [place] [phone] (Flores rk) 10/12/2059 Hospital Encounter Surgery Jim Hanley MD [facility] SPINE CENTER [place], [place] 0375 (Wo rk) Scheduled Procedures Name [...] on filedocumented in this encounter Care Teams Master Plumber Relationship Specialty Start Date End Date Ernestina Nowak PA PCP - General 09/03/10 04/05/15 [address] [place] [address] documented as of this encounter
--- OUTSIDE RECORDS SUMMARY | 2022-07-12 01:02 | XMS_ITS | Encounter Summary ---
:1965 Author Organization [facility] Address [facility] [place] [address] Care Team Providers Name Role Phone Ernestina Nowak Primary Care Provider Encounter Details Date Type Department Care Team Description 11/05/2010 Follow-Up Dermatology Jacob Blair III, MD [facility] Kevin [facility] DR Mchughon [facility]56 [facility] RD-DERMATOLGY [phone] [place], [place] 0[address] (Wo rk) Social History Tobacco [...] Visit Plastic Surgery Peña Woodward MD [facility] PLASTIC SURGERY [place] [phone] (Wo rk) 08/19/2022 Office Visit Podiatry Tom Titus DPM [place] [phone] (Wo rk) 09/08/2022 Office Visit Internal Medicine Janay Hay MD [facility] GENERAL INTERNAL MEDICINE [place] [phone] (Wo rk) 10/12/2059 Hospital Encounter Surgery Jim Hanley MD [facility] SPINE CENTER [place] [phone] (Wo rk) Scheduled Procedures Name Priority Associated [...] on filedocumented in this encounter Care Teams Cold Rolling Supervisor Relationship Specialty Start Date End Date Ernestina Nowak PA PCP - General 09/03/10 04/05/15 [address] [place] [address] documented as of this encounter
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
--- OUTSIDE RECORDS SUMMARY | 2022-07-12 01:02 | XMS_ITS | Encounter Summary ---
:1965 Author Organization [facility] Address [facility] [place] [address] Care Team Providers Name Role Phone Ernestina Nowak Primary Care Provider Encounter Details Date Type Department Care Team Description 11/05/2010 Office Visit Neurology at [facility] Steve Tejada [facility] [place] [address] [facility] [phone] NEUROLOGY DEPT. [place], [place] [address] (Wo rk) Social History Tobacco [...] [facility] PLASTIC SURGERY [place], [place] 0[address] (Wo rk) 08/19/2022 Office Visit Podiatry Tom Titus DPM [place], [place] 0[address] (Wo rk) 09/08/2022 Office Visit Internal Medicine Janay Hay MD [facility] GENERAL INTERNAL MEDICINE [place], [place] 0[address] (Wo rk) 10/12/2059 Hospital Encounter Surgery Jim Hanley MD [facility] SPINE CENTER [place], [place] 0[address] (Wo rk) Scheduled Procedures Name [...] on filedocumented in this encounter Care Teams Obstetrics Nurse Relationship Specialty Start Date End Date Ernestina Nowak PA PCP - General 09/03/10 04/05/15 580 [place] [address] documented as of this encounter
--- OUTSIDE RECORDS SUMMARY | 2022-07-12 01:02 | XMS_ITS | Encounter Summary ---
:1965 Author Organization [facility] Address [facility] [place] [address] Care Team Providers Name Role Phone Ernestina Nowak Primary Care Provider Reason for Visit Reason Comments Headache Encounter Details Date Type Department Care Team Description 01/22/2011 Office Visit Neurology at [facility] Fenstermacher, Chronic migraine [facility] YUNIOR Driscoll without aura (Primary Drive [facility] Dx) [place] [address] NEUR[address] DEPT. [phone] [place], [place] [address] Social History Tobacco Use Types [...] Sign Reading Time Taken Comments Blood Pressure 125/81 01/22/2011 9:21 AM EDT Pulse 109 01/22/2011 9:21 AM EDT Temperature - - Respiratory Rate - - Oxygen Saturation - - Inhaled Oxygen Concentration - - Weight - - Height - - Body Mass Index - - documented in this encounter Progress Notes Steve Tejada PA - 01/22/2011 9:34 AM EDT Problem: Chronic migraine without aura Emmanuelle had to cancel her appointment at the end of December due to transportation issues and since that time, the migraines have been quite severe. She finds herself using all of her acute medications this past month. The acute medications do effectively relieve the pain, albeit temporarily. There has been no change in her migraines. She is not sleeping well but her mood remains stable. She reports a new issue of trouble breathing which she reports she is following with her PCP. ROS: Mild SOB with exertion, otherwise negative. Exam: Vitals: Filed Vitals: 01/22/11 0921 BP: 125/81 Pulse: 109 General: Alert and oriented. NAD. Neuro: Full exam not performed today. MIDAS- 80 Assessment: Chronic migraine without aura Plan: We discussed the new FDA approved protocol for using Botox to treat chronic migraine which involves injecting 155 units distributed over 31 injections sites as compared to the 65 units she has been receiving. She opted to try the new protocol and we did record a MIDAS score today. I renewed her V icodin, gabapentin, robaxin, and naproxen sodium today. Follow-up will be in 3 months. Botox procedure note: Consent was obtained and a time-out [...] units divided between 2 sites in the anesthesiology faculty muscles, 5 units into 1 site in [...] Peña Woodward MD [facility] PLASTIC SURGERY [place] [phone] ([facility]) 08/19/2022 Office Visit Podiatry Tom Titus DPM [place], [place] [address] ([facility]) 09/08/2022 Office Visit Internal Medicine Janay Hay MD [facility] GENERAL INTERNAL MEDICINE [place], [place] [address] ([facility]) 10/12/2059 Hospital Encounter Surgery Jim Hanley MD [facility] SPINE CENTER [place], [place] [address] ( josé luis) Scheduled Procedures [...] migrainosus documented in this encounter Care Teams Fruit Harvester Relationship Specialty Start Date End Date Ernestina Nowak PA PCP - General 09/03/10 04/05/15 580 [place] [phone] documented as of this encounter
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
--- OUTSIDE RECORDS SUMMARY | 2022-07-12 01:02 | XMS_ITS | Encounter Summary ---
:1965 Author Organization [facility] Address [address] [place] [address] Care Team Providers Name Role Phone Ernestina Nowak Primary Care Provider Encounter Details Date Type Department Care Team Description 09/03/2010 Office Visit Neurology at [facility] Josue Fuentes MD [facility] [place] [address] [place] [address] NEUROLOGY DEPT. [phone] [place], [place] [address] (Wo rk) Social History Tobacco [...] MD [facility] PLASTIC SURGERY [place] [id number] (Wo rk) 08/19/2022 Office Visit Podiatry Tom Titus DPM [place] [phone] (Wo rk) 09/08/2022 Office Visit Internal Medicine Janay Hay MD [facility] GENERAL INTERNAL MEDICINE [place] [id number] (Wo rk) 10/12/2059 Hospital Encounter Surgery Jim Hanley MD [facility] SPINE CENTER [place] [address] (Wo rk) Scheduled Procedures Name Priority Associated [...] on filedocumented in this encounter Care Teams County Demonstrator Relationship Specialty Start Date End Date Ernestina Nowak PA PCP - General 09/03/10 04/05/15 [address] [place] [address] documented as of this encounter
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
--- OUTSIDE RECORDS SUMMARY | 2022-07-12 01:08 | XMS_ITS | Encounter Summary ---
:1965 Demographics Home Phone Preferred Language Unknown Marital Status Unknown Yarsanism Affiliation Unknown Race Unknown Ethnic Group Unknown Author Organization [facility] Address [address] [place] [address] Care Team Providers Name Role Phone Unavailable Primary Care Provider Unavailable Encounter Details Date Type Department Care Team Description 04/27/2022 Lab Requisition [facility] Outr Resulting Lab, Pathology & Laboratory Provider [facility] [address] [place] [address] Social History Tobacco Use Types Packs/Day Years Used Date Never Assessed Sex Assigned at Date Recorded Not on file documented as of this encounter Plan of Treatment Not on filedocumented as of this encounter Procedures Procedure Name Priority Date/Time Associated Diagnosis Comme nts COVID[facility] Today 04/26/2022 12:30 LAB PCR EDT COVID-19 TESTING Routine 04/26/2022 12:30 Results for this EDT procedure are i n the results section. documented in this encounter Results COVID-19 TEST [facility] PCR (04/26/2022 12:30 EDT) Specimen Swab Performing Organization Address City/State/ZIP Code Phon e Number [facility] [address] [place] [address] SERVICES COVID-19 TESTING (04/26/2022 12:30 EDT) COVID-19 rt-PCR Negative Negative [facility] Result Comment: [facility] This test has not been FDA c leared or approved. This test has been authorized by FDA under an EUA for use by authorized laboratories. This test has been authorized only for detection of nucleic acid fro SERVICES m 2019-nCoV, not for any oth er viruses or pathogens. This test is only authorized for the duration of the declaration that circumstances exist justifying the authorization of emergency use of in vitro d iagnostic tests for detectio n and/or diagnosis of 2019-nCoV under section 564(b)(1) of Act, 21 U.S.C ?? 360bbb-3(b) (1), unless the authorization is terminated or revoked sooner. Negative results do not prec lude 2019-nCoV infection and should not be used as the sole basis for treatment or other patient management decisions. Negative results must be combined with clinical observa tions, patient history, and epidemiological informatio n. Testing was performed using the merlene SARS-CoV-2 assay ([employer] on the Merlene 6800 System Performing Lab [facility] [address] [facility] SERVICES Specimen Swab Performing Organization Address City/State/ZIP Code Phon e Number [facility] [address] [place] [address] SERVICES documented in this encounter Visit Diagnoses Not on filedocumented in this encounter
--- OUTSIDE RECORDS SUMMARY | 2022-07-12 01:08 | XMS_ITS | Clinical Summary ---
:1965 Demographics Home Phone Preferred Language Unknown Marital Status Unknown Pentecostalism Affiliation Unknown Race Unknown Ethnic Group Unknown Author Organization [facility] Address [address] [place] [address] Care Team Providers Name Role Phone Unavailable Primary Care Provider Unavailable Encounters Date Type Specialty Care Team Description 04/27/2022 Lab Requisition Clinical Laboratory Outr Resulting Lab , Provider from Last 3 Months Social History Tobacco Use Types Packs/Day Years Used Date Never Assessed Sex Assigned at Date Recorded Not on file Plan of Treatment Not on file Procedures Procedure Name Priority Date/Time Associated Diagnosis Comme nts COVID-19 TEST [facility] Today 04/26/2022 12:30 LAB PCR EDT COVID-19 TESTING Routine 04/26/2022 12:30 Results for this EDT procedure are i n the results section. from Last 3 Months Results COVID-19 TEST [facility] PCR (04/26/2022 12:30 EDT) Specimen Swab Performing Organization Address City/State/ZIP Code Phon e Number [facility] [address] [place] [address] SERVICES COVID-19 TESTING (04/26/2022 12:30 EDT) COVID-19 rt-PCR Negative Negative [facility] Result Comment: [facility] This test has not been FDA [...] was performed using the merlene SARS-CoV-2 assay ([employer] on the Merlene 6800 System Performing Lab [address] [address] [facility] SERVICES Specimen Swab Performing Organization Address City/State/ZIP Code Phon e Number [facility] [address] [place] [address] SERVICES from Last 3 Months
[2022-07-12 02:07] LABS: Abs Immature Grans 0.05 10^3/uL (0.0-0.06); Absolute Basophil Count 0.08 10^3/uL (0.0-0.2); Absolute Eosinophil Count 0.33 10^3/uL (0.0-0.7); Absolute Lymphocyte Count 3.72 10^3/uL (1.2-3.4); Absolute Monocyte Count 0.64 10^3/uL (0.1-0.8); Absolute Neutrophil Count 4.92 10^3/uL (1.2-6.7); Basophils % 0.8; Eosinophils % 3.4; HCT 40.7 % (36.0-46.0); HGB 13.5 g/dL (11.2-15.7); Immature Grans % 0.5; Lymphocytes % 38.2; MCH 29.9 pg (27.0-33.0); MCHC 33.2 % (32.0-36.0); MCV 90 fL (80-95); MPV 9.5 fL (8.0-11.0); Monocytes % 6.6; Neutrophils % 50.5; Platelet Count 343 10^3/uL (130-400); RBC 4.51 10^6/uL (3.93-5.22); RDW 12.9 % (11.7-14.6); RDW-SD 42.5 fL; WBC 9.74 10^3/uL (4.4-10.8)
[2022-07-12 02:20] LABS: INR 0.9 (0.9-1.1); PTT Activated 22.3 sec (21.0-27.5)
[2022-07-12 02:21] LABS: ALT 17 U/L (14-59); AST < 5 U/L (15-37); Albumin 3.3 g/dL (3.4-5.0); Alkaline Phosphatase 81 U/L (46-116); Anion Gap 4.9 mmol/L (3-11); BUN 14 mg/dL (7-18); Bilirubin, Total 0.2 mg/dL (0.2-1.0); CO2 31.1 mmol/L (21.0-32.0); CREATININE 0.7 mg/dL (0.55-1.02); Calcium 8.9 mg/dL (8.5-10.1); Chloride 101 mmol/L (98-107); Estimated GFR 102.71 (mL/min/1.73m2); Glucose 282 mg/dL (74-106); Sodium 137 mmol/L (136-145); Total Protein 6.8 g/dL (6.4-8.2)
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
== END 2022-07-12 03:43 | disposition home or self-care (01) ==
PROVIDERS: Emergency Provider Emergency Medicine; PCP Internal Medicine
DX: R51.9 Headache, unspecified (principal); R42 Dizziness and giddiness; R11.0 Nausea; J44.9 Chronic obstructive pulmonary disease, unspecified; E11.9 Type 2 diabetes mellitus without complications; F17.210 Nicotine dependence, cigarettes, uncomplicated; Z79.51 Long term (current) use of inhaled steroids; Z79.4 Long term (current) use of insulin
CPT/HCPCS: 80053; 96361; 96374; 99284; 70450; 85025; 85610; 85730

== ENCOUNTER 2022-07-16 22:16 | Emergency (ER) | payer OTHER, MEDICARE, MEDICAID, SELFPAY ==
[2022-07-16 22:21] VITALS: BP 132/85; PULSE 94; RESP 18; TEMP 36.7; O2SAT 97
--- NOTE | 2022-07-16 22:30 | DI.CT_ITS ---
Exam(s) CT HEAD WO EXAM: CT HEAD WO CLINICAL HISTORY: dizziness, headache, r/o acute process. TECHNIQUE: Imaging Protocol: Axial computed tomography images with coronal and sagittal reformatted images were created and reviewed COMPARISON: CT CT HEAD WO from 07/12/2022 FINDINGS: The ventricular system is normal in appearance. No evidence of acute intracranial hemorrhage, mass effect, or midline shift. The orbital structures are unremarkable. The temporal bone structures appear intact. Calvarium: Normal. Visualized Paranasal sinuses/Mastoids: Clear. IMPRESSION: Normal cranial CT. RADIATION DOSE DELIVERED: 840.86mGy.cm Total DLP 840.86mGy.cm Total DLP !Error CTDIvol DATA REPOSITORY: All CT scans at this facility are submitted to the National Radiology Data Registry (NRDR) Dose Index Registry (DIR) with the [employer] (ACR). RADIATION OPTIMIZATION: All CT scans at this facility use at least one of these dose optimization te chniques: automated exposure control; mA and/or kV adjustment per patient size (includes targeted exa ms where dose is matched to clinical indication); or iterative reconstruction.
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
--- NOTE | 2022-07-16 22:55 | DI.VRAD_ITS ---
PROCEDURE INFORMATION: Exam: CT Head Without Contrast Exam date and time: 07/16/2022 10:47 PM Age: 56 years old Clinical indication: Injury or trauma; Fall; Concussion/head injury; Consciousness not specified; Injury date: 07/16/22; Injury details: Left sided head injury, headache, dizzy TECHNIQUE: Imaging protocol: Computed tomography of the head without contrast. Radiation optimization: All CT scans at this facility use at least one of these dose optimization techniques: automated exposure control; mA and/or kV adjustment per patient size (includes targeted exams where dose is matched to clinical indication); or iterative reconstruction. COMPARISON: CT HEAD WO 07/12/2022 1:47 AM FINDINGS: Brain: Normal. No hemorrhage. Unremarkable white matter. No mass effect. Cerebral ventricles: No ventriculomegaly. Paranasal sinuses: Visualized sinuses are unremarkable. No fluid levels. Mastoid air cells: Visualized mastoid air cells are well aerated. Bones/joints: Unremarkable. No acute fracture. Soft tissues: Unremarkable. IMPRESSION: No acute intracranial abnormality. Dictated and Authenticated by: Dieter Robin MD. Ordering:ARTURO Gusman MD
[2022-07-16] MEDS: Normal Saline 1,000 ML 1000 ML IV (23:10)
[2022-07-16] MEDS: Meclizine 25 MG TAB PO (23:17)
[2022-07-16] MEDS: Dexamethasone 10 MG/ML VIAL IVP (23:18)
[2022-07-16] MEDS: Ketorolac 30 MG/ML VIAL IVP (23:20)
[2022-07-16 23:22] LABS: Abs Immature Grans 0.07 10^3/uL (0.0-0.06); Absolute Basophil Count 0.06 10^3/uL (0.0-0.2); Absolute Eosinophil Count 0.31 10^3/uL (0.0-0.7); Absolute Lymphocyte Count 3.54 10^3/uL (1.2-3.4); Absolute Monocyte Count 0.75 10^3/uL (0.1-0.8); Absolute Neutrophil Count 4.73 10^3/uL (1.2-6.7); Basophils % 0.6; Eosinophils % 3.3; HCT 40.3 % (36.0-46.0); HGB 13.7 g/dL (11.2-15.7); Immature Grans % 0.7; Lymphocytes % 37.4; MCH 30.2 pg (27.0-33.0); MCV 89 fL (80-95); MPV 9.9 fL (8.0-11.0); Monocytes % 7.9; Neutrophils % 50.1; Platelet Count 330 10^3/uL (130-400); RBC 4.53 10^6/uL (3.93-5.22); RDW-SD 42.8 fL; WBC 9.46 10^3/uL (4.4-10.8)
[2022-07-16] MEDS: ACETAMINOPHEN 1,000 MG/100 ML BTL 400 MG IVPB (23:22)
[2022-07-16 23:36] LABS: ALT 17 U/L (14-59); AST 5 U/L (15-37); Albumin 3.3 g/dL (3.4-5.0); Alkaline Phosphatase 79 U/L (46-116); Anion Gap 5.3 mmol/L (3-11); BUN 15 mg/dL (7-18); Bilirubin, Total 0.2 mg/dL (0.2-1.0); CO2 30.7 mmol/L (21.0-32.0); CREATININE 0.8 mg/dL (0.55-1.02); Calcium 8.9 mg/dL (8.5-10.1); Chloride 100 mmol/L (98-107); Glucose 315 mg/dL (74-106); Sodium 136 mmol/L (136-145); Total Protein 6.7 g/dL (6.4-8.2)
[2022-07-16] MEDS: Ondansetron 4 MG/2 ML VIAL IVP (23:43)
[2022-07-17 00:52] VITALS: BP 125/74; PULSE 84; RESP 18; O2SAT 96
[2022-07-17] MEDS: Meclizine 12.5 MG TAB PO (00:52)
== END 2022-07-17 01:11 | disposition home or self-care (01) ==
PROVIDERS: Emergency Provider Physician Assistant; PCP Internal Medicine
DX: R51.9 Headache, unspecified (principal); R42 Dizziness and giddiness; J44.9 Chronic obstructive pulmonary disease, unspecified; E11.9 Type 2 diabetes mellitus without complications; F17.210 Nicotine dependence, cigarettes, uncomplicated; Z79.4 Long term (current) use of insulin; Z79.51 Long term (current) use of inhaled steroids
CPT/HCPCS: 80053; 96361; 96374; 96375; 99284; 70450; 85025; J0131; J1100; J1885; J2405

== ENCOUNTER 2022-09-24 20:30 | Emergency (ER) | payer MEDICARE, MEDICAID, SELFPAY ==
[2022-09-24 20:29] VITALS: BP 96/79; PULSE 98; RESP 20; TEMP 36.7; O2SAT 99
== END 2022-09-24 22:36 | disposition left against medical advice (07) ==
LOC: ER 23:00
PROVIDERS: PCP Internal Medicine
DX: Z53.21 Procedure and treatment not carried out due to patient leaving prior to being seen by health care provider (principal)

== ENCOUNTER 2022-11-25 14:53 | Emergency (ER) | payer MEDICARE, MEDICAID, SELFPAY ==
[2022-11-25 14:57] VITALS: BP 138/87; PULSE 101; RESP 18; TEMP 36.6; O2SAT 100
--- NOTE | 2022-11-25 15:18 | ED.GENADUL_ITS ---
Discharge Plan Disposition Patient Disposition: Home Discharge Details Clinical Impression: Facial swelling Primary Care Provider: Tom Hay ED Provider: Peña Garay Martin Meds and New Rx's Prescriptions: New amoxicillin-pot clavulanate 875-125 mg tablet 1 tab PO BID Qty: 14 0RF No Action fluoxetine [Prozac] 40 mg Capsule 80 mg PO DAILY alprazolam [Xanax] 1 mg Tablet 1 mg PO TID aripiprazole [Abilify] 30 mg Tablet 20 mg PO DAILY Trelegy Ellipta 100-62.5-25 mcg Blister With Device 1 inh INHALATION DAILY albuterol sulfate 90 mcg/actuation Aero Powdr Breath Act W/Sensor 2 inh INHALATION Q6H glyburide 2.5 mg tablet 2.5 mg PO DAILY Qty: 30 0RF levothyroxine 25 mcg tablet 325 mcg PO DAILY Rx Instructions: pt takes total of 325mcg, (2) 150mcg and (1) 25mcg insulin lispro 100 unit/mL insulin pen 1 sliding scale dose subcut USEASDIRECTD Qty: 3 0RF Rx Instructions: Check blood sugar before meals. If glucose < 250, no insulin; if glucose 251 - 300 then 2 units; if glucose 301 - 350 then 4 units; if glucose 351 - 400 then 6 units; if glucose 401 - 450 then 8 units; if glucose > 450 then 10 units and call your PCP. Jardiance 10 mg tablet 1 tab PO 1XD meclizine 12.5 mg tablet 12.5 mg PO TID PRN (Reason: dizziness) Qty: 14 0RF ondansetron HCl 4 mg Tablet 4 mg PO Q6H PRN meclizine 25 mg Tablet 25 mg PO BID PRN Trulicity 1.5 mg/0.5 mL pen injector 1 device SUBCUT QWEEK morphine 30 mg tablet extended release 30 mg PO Q12H oxycodone 5 mg capsule 10 mg PO Q4H PRN prednisone 20 mg tablet 20 mg PO DAILY Rx Instructions: taper Discharge Instructions Additional Instructions: You were seen in the emergency department for your facial swelling. Your CAT scan showed no sign of any worsening of your malignancy but did show concern for a swollen parotid gland. Please use lemon drops or other sour candy numbers several times per day which will help you produce saliva. If you develop worsening pain or swelling or fevers please return to the ED and take the antibiotic as directed. Please, also follow-up with oral surgeon and, as we discussed please follow-up with your technical project coordinator regarding your eye redness. 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 Patient has tachycardia and based on her swelling and night sweats we will draw a lactate, 2 sets of blood cultures, provide 1000 cc of normal saline and vancomycin and initiate empiric antibiotic therapy with piperacillin/tazobactam. We will also plan on ordering CT soft tissue neck to assess for expansion of her malignancy versus superimposed i nfection. No cough just pneumonia however will obtain a screening chest x-ray. No dysuria nor frequency to suggest UTI however will obtain urinalysis. No confusion to suggest encephalitis nor any nuchal rigidity to suggest meningitis so will defer LP at this point time. Will reassess following fluids and imaging. She has no externally visible abscess. Her right eye is mildly injected but she has no proptosis nor signs of any entrapment. She has not injected conjunctiva so I am not concerned for intraocular infection. Patient had no brawny edema submentally to suggest Ludewig's angina. No obvious fluctuance to suggest abscess that would be amenable to external drainage. I placed pictures of the patient's intraoral melanoma in her [facility] record. I see no signs of enophthalmos. It is certainly possible that the patient could be early on developing a hordeolum. There is no obvious chalazion. Patient does have an technical project coordinator. I advised outpatient ophthalmologic will follow-up later this week. Given no significant ocular trauma I did not feel that the patient required a fluorescein examination as I was not suspicious for corneal abrasion. We will also advised warm compresses twice daily in the event that there is a component of an early hordeolum. No pain out of proportion to suggest necrotizing soft tissue infection. 5:54 p.m. Patient had a reassuring CT abscess. Given that she feels abnormalities on her tongue I considered the possibility of mucositis. In addition, she certainly could have a periapical abscess which was not visible on CT patient certainly had progressive tenderness to her left maxillary molars. I will touch base would be hematology-oncology at [facility]. Patient reports following with oral surgery at [facility] and advised outpatient follow-up. I spoke with Dr. Castaneda from heme/onc at [facility]. She noted that checkpoint inhibitors are not generally associated with mucositis. Given concern for possible sialolithiasis with CT showing concern for left parotid swelling will advise secretagogues. Will also discharge on amoxicillin/clavulanate in the event there is an odontogenic source of her infection. I also advised outpatient ophthalmologic follow-up for her improving eye swelling. I also advised twice daily warm compresses as her symptoms may represent the of an symptoms early stye. 7:35 PM [employer] natural [employer] treating unit operator Kurt will help to arrange for outpatient ophthalmology follow-up through care management in the morning tomorrow. I met with the patient, showed her her CT results and advised outpatient hematology follow-up with oral surgery follow-up and optimal logical follow-up. I also advised patient to return if she develops fevers any difficulty swallowing or any difficulty breathing. She had no significant trismus so I felt that an empiric trial of expectant outpatient management was warranted with strict return indications. HPI General Date/Time Provider Initiated Documentation: 11/25/22 15:10 . 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 Patient reportedly has had night sweats for the past several weeks. She feels as if her intraoral malignancy has been worsening and more swollen. She says she has been eating and drinking with no vomiting but that she was nauseous yesterday. She has had no difficulty swallowing. She feels as if her face has become more swollen. She received eyedrops 5 days ago and she was concerned that she had an ocular infection. She reports a history of styes. Her eyes have become slightly less swollen but last night she noticed that she had some pus coming from the inferior aspect of her right eye. She does not wear contacts. She is also noted some drainage from her oral tumor. She has intermittently had some bleeding from the tumor. Chart review indicates that patient is on 25 mg of prednisone per day. Chart review indicates that she is scheduled for possible palliative radiation. She is currently tapering her prednisone. She has not had any trauma to her eye. Related Data Home Medications Medication Instructions Recorded Confirmed alprazolam 1 mg tablet (Xanax) 1 mg PO TID 07/19/19 11/25/22 aripiprazole 30 mg tablet (Abilify) 20 mg PO DAILY 07/19/19 11/25/22 fluoxetine 40 mg capsule (Prozac) 80 mg PO DAILY 07/19/19 11/25/22 albuterol sulfate 90 mcg/actuation 2 inh inhalation Q6H 06/07/20 11/25/22 breath activated powder inhaler,sensor fluticasone fur. 100 mcg-umeclid 1 inh inhalation DAILY 06/07/20 11/25/22 62.5 mcg-vilant 25 mcg inhalat.powder (Trelegy Ellipta) glyburide 2.5 mg tablet 2.5 mg PO DAILY #30 tabs 02/07/22 11/25/22 levothyroxine 25 mcg tablet 325 mcg PO DAILY 02/19/22 07/16/22 insulin lispro 100 unit/mL 1 sliding scale dose subcut 02/20/22 11/25/22 subcutaneous pen USEASDIRECTD #3 mL dulaglutide 1.5 mg/0.5 mL 1 device subcut QWEEK 07/12/22 07/16/22 subcutaneous pen injector (Trulicity) meclizine 25 mg tablet 25 mg PO BID PRN 07/12/22 11/25/22 ondansetron HCl 4 mg tablet 4 mg PO Q6H PRN 07/12/22 11/25/22 empagliflozin 10 mg tablet 1 tab PO 1XD 07/16/22 11/25/22 (Jardiance) meclizine 12.5 mg tablet 12.5 mg PO TID PRN dizziness #14 07/17/22 tabs amoxicillin 875 mg-potassium 1 tab PO BID #14 tabs 11/25/22 clavulanate 125 mg tablet morphine 30 mg tablet,extended 30 mg PO Q12H 11/25/22 11/25/22 release oxycodone 5 mg capsule 10 mg PO Q4H PRN 11/25/22 11/25/22 prednisone 20 mg tablet 20 mg PO DAILY 11/25/22 11/25/22 Previous Rx's Medication Instructions Recorded glyburide 2.5 mg tablet 2.5 mg PO DAILY #30 tabs 02/07/22 insulin lispro 100 unit/mL 1 sliding scale dose subcut 02/20/22 subcutaneous pen USEASDIRECTD #3 mL meclizine 12.5 mg tablet 12.5 mg PO TID PRN dizziness #14 07/17/22 tabs amoxicillin 875 mg-potassium 1 tab PO BID #14 tabs 11/25/22 clavulanate 125 mg tablet Allergies Allergy/AdvReac Type Severity Reaction Status Date / Time clonidine Allergy Severe nazia Unverified 11/25/22 15:01 adriana syndrome codeine Allergy Itching Unverified 11/25/22 15:01 hydrocodone [From Vicodin] Allergy Itching Unverified 11/25/22 15:01 methadone AdvReac Nausea, Unverified 11/25/22 15:01 vomiting General Stated Complaint: FacialProb JOANNE: 3 PFSH All Active Problems (Updated 11/25/22 @ 18:13 by Peña Garay MD) UTI (urinary tract infection) (Acute) Skin irritation (Acute) Abdominal pain (Acute) Pulmonary nodule (Acute) Nausea (Acute) Nausea and vomiting (Acute) COVID-19 (Acute) Facial swelling (Acute) Medical History (Updated 11/25/22 @ 18:13 by Peña Garay MD) Anxiety Asthma COPD (chronic obstructive pulmonary disease) Depression Diabetes mellitus GERD (gastroesophageal reflux disease) Hypothyroid Surgical History History of cholecystectomy History of hysterectomy Hx of shoulder surgery Social History Smoking/Tobacco Use Status: Current every day Tobacco Type: cigarettes Smoking risk assessment performed?: Yes Alcohol Intake: never Drug use: Daily Substance use type: marijuana Do you feel safe at home: Yes Do you feel safe in your relationship?: Yes Exam Narrative Exam Narrative: General: Well-appearing in no acute distress speaking in complete sentences. Head: Normocephalic, atraumatic Ear, nose, mouth, throat: Intraorally patient has a maxillary posterior malignancy consistent with her history of melanoma. She has no significant trismus. No brawny edema submentally. Extraocular eye movements are intact. She does have mild erythema at the medial canthus of her right eye. No obvious chalazion nor hodeolum to left eye. No conjunctival nor scleral injection. No gross hypopyon bilaterally. No obvious external fluid collection based on no fluctuance. Neck: Trachea midline. Cardiovascular: Well-perfused distal extremities. Regular rate and rhythm. Right chest wall port in place. Respiratory: Nonlabored respiration. No adventitious lung sounds bilaterally. Gastrointestinal: Nondistended abdomen. Musculoskeletal: No edema. Moving all 4 extremities spontaneously. Skin: Normal for age and race, grossly normal temperature and turgor. No acute rash. Neurologic: Alert and appropriate, no apparent acute deficits. Psychiatric: Mood and manner are appropriate. Grooming and personal hygiene are appropriate. Course Vital Signs Vital signs: Vital Signs Temperature 36.6 C 11/25/22 14:57 Pulse 101 H 11/25/22 14:57 Respiratory Rate 18 11/25/22 14:57 Blood Pressure 138/87 11/25/22 14:57 Pulse Oximetry 100 11/25/22 14:57 Temperature 36.6 C 11/25/22 14:57 Temperature Source Oral 11/25/22 14:57 Pulse 101 H 11/25/22 14:57 Respiratory Rate 18 11/25/22 14:57 Blood Pressure 138/87 11/25/22 14:57 Blood Pressure Position Sitting 11/25/22 14:57 Pulse Oximetry 100 11/25/22 14:57 Oxygen Delivery Method Room Air 11/25/22 14:57 Oxygen Flow Rate 0 11/25/22 14:57 Pain Level 10 11/25/22 14:57
[2022-11-25 15:24] VITALS: O2SAT 96
[2022-11-25 15:25] VITALS: BP 131/98; PULSE 94; O2SAT 96
--- NOTE | 2022-11-25 15:30 | DI.RAD_ITS ---
Exam(s) XR CHEST 2V PA LATERAL EXAM: XR CHEST 2V PA LATERAL CLINICAL HISTORY: Sepsis assess for metastatic disease. TECHNIQUE: 2D digital imaging was performed. COMPARISON: CR,XR XR PORTABLE CHEST AP from 02/07/2022 FINDINGS: 2 views: Distal tip of right supra clavi in Port-A-Cath is in the upper right atrium. No pneumothorax. No ne w lung nodules. Some platelike atelectasis noted in the lower left lung. No pleural effusions. No infiltrates. Heart size is normal. The mediastinum is not widened. Fusion plate in the lower cervical spine again noted. IMPRESSION: Platelike atelectasis in the left lung. Port-A-Cath distal tip in the upper right atrium. DATA REPOSITORY: RADIATION DOSE DELIVERED:
--- NOTE | 2022-11-25 15:30 | DI.CT_ITS ---
Exam(s) CT NECK W EXAM: CT NECK W INDICATION: Left maxillary melanoma with facial swelling. COMPARISON: CT CT CERVICAL SPINE WO from 01/21/2022 TECHNIQUE: FINDINGS: VISUALIZED PARANASAL SINUSES: Unremarkable. SKIN MARKER: There is a skin marker over the left side of the face. This is over the anterior aspect of the left parotid gland. There is no evidence of abnormal mass nor subcutaneous streaking at this level. Subjacent left parotid gland exhibits a developmental anterior extension at this level which may be what this patient is feeling but there does not appear to be a pathologic process at this loc ation NASOPHARYNX: Unremarkable ORODENTAL: Unremarkable. OROPHARYNX: Symmetrically enlarged tonsils with tonsilliths. No evidence of enhancing abscess. Uvul a is midline. HYPOPHARYNX: Unremarkable. Valleculae and epiglottis and aryepiglottic folds appear normal. VOCAL CORDS: Unremarkable. No masses evident. Subglottic airway appears unremarkable. THYROID GLAND: Unremarkable. Normal size and no obvious nodules. SALIVARY GLANDS: Submandibular glands unremarkable. Asymmetry in left parotid lobe superficial segme nt anterior extension subjacent to the skin marker. LYMPH NODES: There is no adenopathy evident in the neck and supraclavicular regions. OTHER: Right supra clavi in Port-A-Cath in place. Its distal tip is in the right side of the heart. VISUALIZED LUNG APICES: No significant findings. OSSEOUS: There is a fusion plate in the anterior aspect lower cervical spine. IMPRESSION: 1. On the left side of the face there is a skin marker. Subjacent to the skin marker is what appear s to be anterior extension of the superficial lobe of the left parotid gland. Is not have pathologic appearance at this time. There does not appear to be an ominous mass in the parotid gland in and wiley b cutaneous tissues at this level. Other salivary glands appear unremarkable. 2. Symmetrically enlarged pharyngeal tonsils. No evidence of tonsillar abscess. 3. No lymphadenopathy evident in the neck and supraclavicular regions. RADIATION DOSE DELIVERED: 727.79mGy.cm Total DLP 727.79mGy.cm Total DLP DATA REPOSITORY: All CT scans at this facility are submitted to the National Radiology Data Registry (NRDR) Dose Index Registry (DIR) with the [employer] (ACR). RADIATION OPTIMIZATION: All CT scans at this facility use at least one of these dose optimization te chniques: automated exposure control; mA and/or kV adjustment per patient size (includes targeted exa ms where dose is matched to clinical indication); or iterative reconstruction.
[2022-11-25 15:52] LABS: Lactate 1.5 mmol/L (0.6-1.4)
[2022-11-25] MEDS: Normal Saline 1,000 ML 1000 ML IV (15:52)
[2022-11-25] MEDS: PIPERACILLIN/TAZO 4.5 GM in Normal Saline 100 ML IVPB (15:52)
[2022-11-25 15:54] LABS: Absolute Basophil Count 0.11 10^3/uL (0.0-0.2); Basophils % 0.8; Eosinophils % 0.6; HCT 42.1 % (36.0-46.0); HGB 13.3 g/dL (11.2-15.7); Immature Grans % 3.5; Lymphocytes % 9.7; MCH 30.2 pg (27.0-33.0); MCHC 31.6 % (32.0-36.0); MCV 96 fL (80-95); MPV 9.3 fL (8.0-11.0); Monocytes % 3.5; Neutrophils % 81.9; Platelet Count 323 10^3/uL (130-400); RDW 14.4 % (11.7-14.6); RDW-SD 50.5 fL; WBC 14.37 10^3/uL (4.4-10.8)
[2022-11-25 15:56] LABS: Absolute Eosinophil Count 0.09 10^3/uL (0.0-0.7); Absolute Lymphocyte Count 1.39 10^3/uL (1.2-3.4); Absolute Neutrophil Count 11.77 10^3/uL (1.2-6.7)
[2022-11-25 16:04] LABS: Anion Gap 4.2 mmol/L (3-11); BUN 15 mg/dL (7-18); CO2 32.8 mmol/L (21.0-32.0); CREATININE 0.8 mg/dL (0.55-1.02); Chloride 103 mmol/L (98-107); Estimated GFR 86.96 (mL/min/1.73m2); Glucose 136 mg/dL (74-106); Sodium 140 mmol/L (136-145)
[2022-11-25] MEDS: MORPHine 4 MG/ML SYR IVP (16:07)
[2022-11-25 16:09] LABS: Bilirubin Negative (Negative); Blood Negative (Negative); Clarity Clear (Clear); Glucose Negative (Negative); Ketones Negative (Negative); Leukocyte Esterase Trace (Negative); Nitrite Negative (Negative); Specific Gravity 1.015 (1.005-1.025); Urobilinogen 0.2 EU/dL (Up TO 0.2); pH 5.5 (5-8)
[2022-11-25 16:24] LABS: Bacteria Few HPF (Negative); C & S Indicated? Yes; Casts Negative LPF (Negative); Crystals Negative HPF (Negative); Epithelial Cells Few HPF (Negative); Mucus Negative (Negative); RBC 0-2 HPF (0-2)
[2022-11-25] MEDS: Ketorolac 15 MG/ML VIAL IVP (17:17)
[2022-11-25] MEDS: Ondansetron 4 MG/2 ML VIAL IVP (17:17)
[2022-11-25] MEDS: VANCOMYCIN/WATER (PEG) 1.75 GM/350 ML BAG IV (17:17)
[2022-11-25] MEDS: Omnipaque 350 MG/ML 100 ML BTL IV (17:20)
[2022-11-25] MEDS: Normal Saline - Diluent 50 ML VIAL IV (17:21)
[2022-11-25] MEDS: Normal Saline Flush 10 ML SYR IV (17:21)
[2022-11-25 18:36] VITALS: BP 131/98; PULSE 94; O2SAT 96
[2022-11-25] MEDS: Heparin 500 UNITS/5 ML SYRINGE (18:36)
== END 2022-11-25 18:46 | disposition home or self-care (01) ==
PROVIDERS: Emergency Provider Emergency Medicine; PCP Internal Medicine
DX: R22.0 Localized swelling, mass and lump, head (principal); J44.9 Chronic obstructive pulmonary disease, unspecified; E11.9 Type 2 diabetes mellitus without complications; C06.9 Malignant neoplasm of mouth, unspecified; R00.0 Tachycardia, unspecified; Z86.16 Personal history of COVID-19; Z90.49 Acquired absence of other specified parts of digestive tract; Z79.51 Long term (current) use of inhaled steroids
CPT/HCPCS: 36415; 70491; 80048; 87040; 96365; 96366; 96367; 96368; 96375; 99285; 71046; 81003; 81015; 83605; 85025; 87086; 99284; J1885; J2270; J2405; J2543; J3490

== ENCOUNTER 2022-12-04 10:23 | Emergency (ER) | payer MEDICARE, MEDICAID, SELFPAY ==
[2022-12-04] VITALS (19 sets, daily range): BP systolic 109–134; BP diastolic 66–79; PULSE 85–105; RESP 11–22; TEMP 36.3–36.8; O2SAT 93–99
--- NOTE | 2022-12-04 10:15 | RT.EKG_ITS ---
APPROVED REPORT Exam: Resting ECG Reason for Exam: chest pain Patient Location: E HR:101 bpm ECG Measurements Heart Rate 101 AXIS GA 142 P 52 QRSd 73 QRS 45 QT 318 T 85 QTc 412 Conclusion Sinus tachycardia...rate> 99 Nonspecific T abnrm, anterolateral leads...T <-0.10mV, I aVL V2-V6
--- NOTE | 2022-12-04 10:33 | DI.CT_ITS ---
Exam(s) CT CHEST PE CTA EXAM: CT CHEST PE CTA CLINICAL HISTORY: chest pain, SOB, cancer. TECHNIQUE: Imaging Protocol: Axial CT angiography was performed with multi-slice acquisition and mu lti-planar and/or 3D reconstructions. CONTRAST MATERIAL: Intravenous: Omnipaque 350 contrast volume:120 mL COMPARISON: CT CT CHEST/ABD/PEL WO from 03/04/2022 FINDINGS: The examination is limited due to patient motion artifact. Tracheobronchial tree: Patent where visualized. Pulmonary parenchyma: No consolidation or dominant measurable mass. There is scarring in the lingula. Pulmonary Arteries: No evidence of filling defect to suggest pulmonary emboli. Mediastinum and [place]: No dominant adenopathy or fluid collection. The esophagus is unremarkable. Visualized thyroid gland: Unremarkable. Pleura: No effusion or pneumothorax. Heart: The heart is not dilated. No coronary artery calcifications are seen. No pericardial effusion. Aorta: Thoracic aorta non-dilated. No evidence of dissection. There is atherosclerosis. Upper abdomen: Unremarkable. Tubes, Catheters, and Lines: There is an Jipluy-D-Kvke catheter in place. Soft tissues: Unremarkable. Bones: Within normal limits for the patient's age.Anterior cervical fusion is partially visualized on this examination. IMPRESSION: 1. No evidence of pulmonary embolism, thoracic aortic dissection or aneurysm. 2. Findings were discussed with the emergency department on 12/04/2022. RADIATION DOSE DELIVERED: Total DLP DATA REPOSITORY: All CT scans at this facility are submitted to the National Radiology Data Registry (NRDR) Dose Index Registry (DIR) with the [employer] (ACR). RADIATION OPTIMIZATION: All CT scans at this facility use at least one of these dose optimization te chniques: automated exposure control; mA and/or kV adjustment per patient size (includes targeted exa ms where dose is matched to clinical indication); or iterative reconstruction.
--- NOTE | 2022-12-04 10:33 | DI.CT_ITS ---
Exam(s) CT NECK W EXAM: CT NECK W CLINICAL HISTORY: recent infection lt neck, h/o neck malig melanoma. TECHNIQUE: Imaging Protocol: Axial computed tomography images with coronal and sagittal reformatted images were created and reviewed. CONTRAST MATERIAL: Intravenous: Omnipaque 350 Contrast volume:1 twinmL COMPARISON: CT CT CERVICAL SPINE WO from 01/21/[address] NECK W from 11/25/2022 FINDINGS: Orbits and orbital soft tissues: Within normal limits. Visualized paranasal sinuses: Within normal limits. There is a 9 x 7 cm enhancing soft tissue mass a djacent to the internal auditory canal. Nasopharynx: Within normal limits. Oropharynx: Within normal limits. Hypopharynx: Within normal limits. Larynx: Within normal limits. Retropharyngeal space: Within normal limits. Parotids/submandibular: Within normal limits. Thyroid gland: Within normal limits. Lymphadenopathy: There is scattered lymph nodes seen along the level one to level three all measurin g less than 8 mm in short axis diameter which are physiologic in nature. Trachea: Within normal limits. Lung apices: Within normal limits. Bones: Within normal limits for the patient's age. There findings of a anterior cervical disc fusion . No aggressive osseous lesions are identified. Carotids/Jugular: Within normal limits. Soft tissues: Within normal limits. IMPRESSION: 1. No findings to suggest and neck infection or neck mass. 2. There appears to be a 0.9 x 0.7 cm enhancing soft tissue mass arising from or adjacent to the righ t internal auditory canal. Differential considerations include schwannoma or meningioma. Nonemergen t MRI of the IAC's without and with contrast is recommended. Please correlate with the patient's phy sical exam. Unexpected findings RADIATION DOSE DELIVERED: Total DLP Total DLP DATA REPOSITORY: All CT scans at this facility are submitted to the National Radiology Data Registry (NRDR) Dose Index Registry (DIR) with the [employer] (ACR). RADIATION OPTIMIZATION: All CT scans at this facility use at least one of these dose optimization te chniques: automated exposure control; mA and/or kV adjustment per patient size (includes targeted exa ms where dose is matched to clinical indication); or iterative reconstruction.
--- OUTSIDE RECORDS SUMMARY | 2022-12-04 10:34 | XMS_ITS | Continuity of Care Document ---
Author Name Unknown Organization [email or web address] Address [address] [place] [address] Encounter LTTL_PA FIN NBR [id number] Date(s): 07/17/22 - 07/17/22 [facility] [address] [place] [address]- Discharge Disposition: Home or Self Care Attending Physician: GEE ARGUELLO Admitting Physician: GEE ARGUELLO Results Radiology Reports * Exam Date Time Procedure Performing Provider Status 07/17/22 3:51 PM MRI Face Neck Orbit w/ + w/o Contrast Hailey Pack (Verified) Notes: (MRI Face Neck Orbit w/ + w/o Contrast) Reason For Exam: C43.4 MRI Face Neck Orbit w/ + w/o Contrast EXAM DESCRIPTION: MRI Face Neck Orbit w/ + w/o Contrast 07/17/2022 INDICATION: C43.4 TECHNIQUE: MRI examination of the face region was performed utilizing small [id number] thin-section images in the axial and coronal planes including T1, fat-suppressed T2 and postcontrast fat-suppressed T1 weighted images 18 cc of MultiHance contrast was utilized COMPARISON: None FINDINGS: Ovoid T2 hyperintense, enhancing lesion in the lateral left upper oral cavity region measuring approximately 8 x 8 x 9 mm in maximum AP, cc and transverse dimensions respectively. Neoplastic lesion can not be excluded. Symmetric soft tissue fullness in the tonsillar pillar region bilaterally as described on CT neck examination from the same date. This is likely reactive/inflammatory. Otherwise no facial region mass or abnormal enhancement. Nonenlarged lymph nodes are noted in the submental region as well as in the visualized upper neck. No suspicious regional marrow lesions. Enhancing lesion in the right cerebellopontine angle region extending into the right IAC as described on MRI head report from the same date. IMPRESSION: Small enhancing lesion in the lateral left upper oral cavity region measuring approximately 8 x 8 x 9 mm. Neoplastic lesion can not be excluded Otherwise no facial region mass or abnormal enhancement. Symmetric soft tissue fullness in the tonsillar pillar region bilaterally as described on CT neck examination from the same date. This is likely reactive/inflammatory. JOB #: [id number] Final Signed by: Dash Terry MD Signed (Electronic Signature): 07/17/2022 4:50 pm * Exam Date Time Procedure Performing Provider Status 07/17/22 3:52 PM MRI Brain w/ + w/o Contrast Fraser i; Ced (Verified) Notes: (MRI Brain w/ + w/o Contrast) Reason For Exam: C43..4 MRI Brain w/ + w/o Contrast EXAM DESCRIPTION: MRI Brain w/ + w/o Contrast 07/17/2022 INDICATION: C43..4 TECHNIQUE: Technique: Multiplanar MRI examination of the head including FLAIR and diffusion series. Postcontrast T1-weighted images were obtained in 3 planes. 18 cc of MultiHance contrast was utilized COMPARISON: CT head without contrast from 04/17/2017 and MRI head from 11/15/2015 FINDINGS: Ovoid extra-axial lesion in the right cerebellopontine angle extending into the right internal auditory canal demonstrating intermediate T1 and T2 signal with diffuse enhancement. This measures approximately 12 x 7.6 x 5.4 mm in maximum transverse, AP and CC dimensions respectively. This likely reflects acoustic neuroma or meningioma. Otherwise, no intracranial mass, mass effect or abnormal enhancement. Diffusion weighted images demonstrate no focal area of acute or recent infarct. No hydrocephalus, extra-axial fluid collection or blood breakdown products. No focal white matter lesions. Cerebellar tonsil position is normal. The pituitary gland demonstrates normal morphology and signal intensity. No significant temporal horn asymmetry. Visualized vascular flow voids and cranial nerves appear within normal limits. The visualized paranasal sinuses are grossly clear. IMPRESSION: Enhancing extra-axial lesion in the right cerebellopontine angle extending into the right internal auditory canal measuring approximately 12 x 7.6 x 5.4 mm likely reflecting acoustic neuroma or meningioma. Otherwise no intracranial mass, mass effect or abnormal enhancement No acute or recent infarct on diffusion series. JOB #: [id number] Final Signed by: Dash Terry MD Signed (Electronic Signature): 07/17/2022 4:13 pm * Exam Date Time Procedure Performing Provider Status 07/17/22 1:[address] Neck Soft Tissue w/ Contrast Tanisha Zaragoza; Auth (Verified) Notes: (CT Neck Soft Tissue w/ Contrast) Reason For Exam: C43.4 CT Neck Soft Tissue w/ Contrast EXAM DESCRIPTION: CT Neck Soft Tissue w/ Contrast 07/17/2022 INDICATION: C43.4 TECHNIQUE: All CT scans at this facility use at least one of these dose optimization techniques: Automated exposure control; mA and/or kV adjustment per patient size (includes targeted exams where dose is matched to clinical indication); or iterative reconstruction. CT examination of the neck with contrast with thin section axial images including sagittal and coronal MPR images performed on a separate workstation under concurrent supervision. 100 cc of Isovue-300 contrast was utilized COMPARISON: None available FINDINGS: Mild symmetric soft tissue fullness in the tonsillar pillar region bilaterally, likely inflammatory. Otherwise no neck mass, adenopathy or abnormal enhancement. Nasopharynx and parapharyngeal fat planes appear symmetric. Parotid and submandibular salivary glands appear within normal limits. No tongue region mass is identified. Epiglottis and vallecula appear within normal limits. Prevertebral soft tissues in the cervical region are unremarkable. No mass or abnormal enhancement in the visualized intracranial contents or orbit region on either side. No mass or adenopathy in the visualized superior mediastinum. Visualized lung apices are clear No suspicious regional osseous lesions. IMPRESSION: Mild symmetric soft tissue fullness in the tonsillar pillar region bilaterally, likely inflammatory. Otherwise no neck mass, adenopathy or abnormal enhancement. JOB #: [id number] Final Signed by: Dash Terry MD Signed (Electronic Signature): 07/17/2022 2:52 pm * Exam Date Time Procedure Performing Provider Status 07/17/22 1:[address] Abdomen and Pelvis w/ Contrast Tanisha Ceron; Auth (Verified) Notes: (CT Abdomen and Pelvis w/ Contrast) Reason For Exam: C43.4 CT Abdomen and Pelvis w/ Contrast EXAM DESCRIPTION: CT Abdomen and Pelvis w/ Contrast 07/17/2022 INDICATION: C43.4 TECHNIQUE: All CT scans at this facility use at least one of these dose optimization techniques: Automated exposure control; mA and/or kV adjustment per patient size (includes targeted exams where dose is matched to clinical indication); or iterative reconstruction. Technique: Axial CT images of the abdomen/pelvis with IV contrast administration 100 cc of Isovue-300 contrast was utilized COMPARISON: CT abdomen/pelvis without contrast from 04/04/2019 FINDINGS: Small ovoid low-attenuation lesion in the mid liver with attenuation characteristics higher than fluid. This measures approximately 12 mm in diameter. This was definitely seen on previous unenhanced examination. Neoplastic lesion can not be excluded. No additional focal hepatic lesion. Normal enhancement of the main hepatic veins and main portal vein. Normal spleen size without focal mass. Status post cholecystectomy. Normal right adrenal gland. Left adrenal nodule without significant change from remote examination which was shown to represent adenoma on previous study. No pancreatic mass or abnormal enhancement. Tiny low-attenuation lesion involving the mid right kidney measuring a few mm in size, too small to characterize. Otherwise no focal renal mass, hydronephrosis or perinephric fluid collection on either side Normal caliber abdominal aorta atherosclerotic calcifications. No retroperitoneal adenopathy in the abdomen or pelvis. No pelvic mass identified with apparent prior hysterectomy No bowel dilatation to suggest obstruction or ileus. No free intraperitoneal air, ascites or inflammatory changes. Normal appendix. No suspicious regional osseous lesions. Stable small sclerotic lesions involving the left iliac wing and right superior acetabulum most consistent with bone islands. IMPRESSION: Small low-attenuation lesion in the mid liver measuring approximately 12 mm in diameter not definitely seen on previous unenhanced study. Small neoplastic lesion can not be excluded. MRI examination of the liver could be obtained for further evaluation. Stable left adrenal nodule when compared to remote examination consistent with benign etiology. Tiny low-attenuation lesion in the right kidney, too small to characterize Otherwise no abdominal/pelvic mass or adenopathy. JOB #: [id number] Final Signed by: Dash Terry MD Signed (Electronic Signature): 07/17/2022 2:43 pm * Exam Date Time Procedure Performing Provider Status 07/17/22 1:[address] Chest w/ Contrast Tanisha Zaragoza; Au th (Verified) Notes: (CT Chest w/ Contrast) Reason For Exam: C43.4 CT Chest w/ Contrast EXAM DESCRIPTION: CT Chest w/ Contrast 07/17/2022 INDICATION: C43.4 TECHNIQUE: All CT scans at this facility use at least one of these dose optimization techniques: Automated exposure control; mA and/or kV adjustment per patient size (includes targeted exams where dose is matched to clinical indication); or iterative reconstruction. Technique: Axial CT images of the chest with IV contrast administration 100 cc of Isovue-300 contrast was utilized COMPARISON: CT chest without contrast from 12/18/2010 FINDINGS: No mediastinal, hilar or axillary adenopathy. No pericardial effusion. No central pulmonary artery filling defect identified. Normal caliber thoracic aorta with mild atherosclerotic calcifications. Noncalcified nodule in the posterior aspect of the right lower lobe on image number 152 measuring approximately 6.2 mm in diameter. No additional pulmonary nodule. Mild subsegmental atelectasis or scarring in the posterior aspect of the right upper lobe, lingula and both lower lobes. No significant emphysematous changes. No central endobronchial filling defect identified. No pleural effusion or pneumothorax. No suspicious regional osseous lesions. Spondylotic changes in the visualized spinal axis. IMPRESSION: Noncalcified pulmonary nodule in the right lower lobe measuring approximately 6.2 mm in diameter. Neoplastic nodule can not be excluded. According to Fleischner society guidelines for management of pulmonary nodules, follow-up CT chest examination in 6-12 months is recommended to assess stability. Mild areas of subsegmental atelectasis or scarring bilaterally as described above No mediastinal, hilar or axillary adenopathy. JOB #: [id number] Final Signed by: Dash Terry MD Signed (Electronic Signature): 07/17/2022 2:[address] Chest W contrast IV * Dash Terry MD: VERIFY, VERIFY Event Display: Report EXAM DESCRIPTION: CT Chest w/ Contrast 07/17/2022 INDICATION: C43.4 TECHNIQUE: All CT scans at this facility use at least one of these dose optimization techniques: Automated exposure control; mA and/or kV adjustment per patient size (includes targeted exams where dose is matched to clinical indication); or iterative reconstruction. Technique: Axial CT images of the chest with IV contrast administration 100 cc of Isovue-300 contrast was utilized COMPARISON: CT chest without contrast from 12/18/2010 FINDINGS: No mediastinal, hilar or axillary adenopathy. No pericardial effusion. No central pulmonary artery filling defect identified. Normal caliber thoracic aorta with mild atherosclerotic calcifications. Noncalcified nodule in the posterior aspect of the right lower lobe on image number 152 measuring approximately 6.2 mm in diameter. No additional pulmonary nodule. Mild subsegmental atelectasis or scarring in the posterior aspect of the right upper lobe, lingula and both lower lobes. No significant emphysematous changes. No central endobronchial filling defect identified. No pleural effusion or pneumothorax. No suspicious regional osseous lesions. Spondylotic changes in the visualized spinal axis. IMPRESSION: Noncalcified pulmonary nodule in the right lower lobe measuring approximately 6.2 mm in diameter. Neoplastic nodule can not be excluded. According to Fleischner society guidelines for management of pulmonary nodules, follow-up CT chest examination in 6-12 months is recommended to assess stability. Mild areas of subsegmental atelectasis or scarring bilaterally as described above No mediastinal, hilar or axillary adenopathy. JOB #: [id number] Final Signed by: Dash Terry MD Signed (Electronic Signature): 07/17/2022 2:[address] Abdomen and Pelvis W contrast IV * Dash Terry MD: VERIFY, VERIFY Event Display: Report EXAM DESCRIPTION: CT Abdomen and Pelvis w/ Contrast 07/17/2022 INDICATION: C43.4 TECHNIQUE: All CT scans at this facility use at least one of these dose optimization techniques: Automated exposure control; mA and/or kV adjustment per patient size (includes targeted exams where dose is matched to clinical indication); or iterative reconstruction. Technique: Axial CT images of the abdomen/pelvis with IV contrast administration 100 cc of Isovue-300 contrast was utilized COMPARISON: CT abdomen/pelvis without contrast from 04/04/2019 FINDINGS: Small ovoid low-attenuation lesion in the mid liver with attenuation characteristics higher than fluid. This measures approximately 12 mm in diameter. This was definitely seen on previous unenhanced examination. Neoplastic lesion can not be excluded. No additional focal hepatic lesion. Normal enhancement of the main hepatic veins and main portal vein. Normal spleen size without focal mass. Status post cholecystectomy. Normal right adrenal gland. Left adrenal nodule without significant change from remote examination which was shown to represent adenoma on previous study. No pancreatic mass or abnormal enhancement. Tiny low-attenuation lesion involving the mid right kidney measuring a few mm in size, too small to characterize. Otherwise no focal renal mass, hydronephrosis or perinephric fluid collection on either side Normal caliber abdominal aorta atherosclerotic calcifications. No retroperitoneal adenopathy in the abdomen or pelvis. No pelvic mass identified with apparent prior hysterectomy No bowel dilatation to suggest obstruction or ileus. No free intraperitoneal air, ascites or inflammatory changes. Normal appendix. No suspicious regional osseous lesions. Stable small sclerotic lesions involving the left iliac wing and right superior acetabulum most consistent with bone islands. IMPRESSION: Small low-attenuation lesion in the mid liver measuring approximately 12 mm in diameter not definitely seen on previous unenhanced study. Small neoplastic lesion can not be excluded. MRI examination of the liver could be obtained for further evaluation. Stable left adrenal nodule when compared to remote examination consistent with benign etiology. Tiny low-attenuation lesion in the right kidney, too small to characterize Otherwise no abdominal/pelvic mass or adenopathy. JOB #: [id number] Final Signed by: Dash Terry MD Signed (Electronic Signature): 07/17/2022 2:[address] Neck W contrast IV * Dash Terry MD: VERIFY, VERIFY Event Display: Report EXAM DESCRIPTION: CT Neck Soft Tissue w/ Contrast 07/17/2022 INDICATION: C43.4 TECHNIQUE: All CT scans at this facility use at least one of these dose optimization techniques: Automated exposure control; mA and/or kV adjustment per patient size (includes targeted exams where dose is matched to clinical indication); or iterative reconstruction. CT examination of the neck with contrast with thin section axial images including sagittal and coronal MPR images performed on a separate workstation under concurrent supervision. 100 cc of Isovue-300 contrast was utilized COMPARISON: None available FINDINGS: Mild symmetric soft tissue fullness in the tonsillar pillar region bilaterally, likely inflammatory. Otherwise no neck mass, adenopathy or abnormal enhancement. Nasopharynx and parapharyngeal fat planes appear symmetric. Parotid and submandibular salivary glands appear within normal limits. No tongue region mass is identified. Epiglottis and vallecula appear within normal limits. Prevertebral soft tissues in the cervical region are unremarkable. No mass or abnormal enhancement in the visualized intracranial contents or orbit region on either side. No mass or adenopathy in the visualized superior mediastinum. Visualized lung apices are clear No suspicious regional osseous lesions. IMPRESSION: Mild symmetric soft tissue fullness in the tonsillar pillar region bilaterally, likely inflammatory. Otherwise no neck mass, adenopathy or abnormal enhancement. JOB #: [id number] Final Signed by: Dash Terry MD Signed (Electronic Signature): 07/17/2022 2:52 pm MR Brain WO and W contrast IV * Dash Terry MD: VERIFY, VERIFY Event Display: Report EXAM DESCRIPTION: MRI Brain w/ + w/o Contrast 07/17/2022 INDICATION: C43..4 TECHNIQUE: Technique: Multiplanar MRI examination of the head including FLAIR and diffusion series. Postcontrast T1-weighted images were obtained in 3 planes. 18 cc of MultiHance contrast was utilized COMPARISON: CT head without contrast from 04/17/2017 and MRI head from 11/15/2015 FINDINGS: Ovoid extra-axial lesion in the right cerebellopontine angle extending into the right internal auditory canal demonstrating intermediate T1 and T2 signal with diffuse enhancement. This measures approximately 12 x 7.6 x 5.4 mm in maximum transverse, AP and CC dimensions respectively. This likely reflects acoustic neuroma or meningioma. Otherwise, no intracranial mass, mass effect or abnormal enhancement. Diffusion weighted images demonstrate no focal area of acute or recent infarct. No hydrocephalus, extra-axial fluid collection or blood breakdown products. No focal white matter lesions. Cerebellar tonsil position is normal. The pituitary gland demonstrates normal morphology and signal intensity. No significant temporal horn asymmetry. Visualized vascular flow voids and cranial nerves appear within normal limits. The visualized paranasal sinuses are grossly clear. IMPRESSION: Enhancing extra-axial lesion in the right cerebellopontine angle extending into the right internal auditory canal measuring approximately 12 x 7.6 x 5.4 mm likely reflecting acoustic neuroma or meningioma. Otherwise no intracranial mass, mass effect or abnormal enhancement No acute or recent infarct on diffusion series. JOB #: [id number] Final Signed by: Dash Terry MD Signed (Electronic Signature): 07/17/2022 4:13 pm MR Orbit and Face and Neck WO and W contrast IV * Dash Terry MD: VERIFY, VERIFY Event Display: Report EXAM DESCRIPTION: MRI Face Neck Orbit w/ + w/o Contrast 07/17/2022 INDICATION: C43.4 TECHNIQUE: MRI examination of the face region was performed utilizing small tnktj-na-ggyk thin-section images in the axial and coronal planes including T1, fat-suppressed T2 and postcontrast fat-suppressed T1 weighted images 18 cc of MultiHance contrast was utilized COMPARISON: None FINDINGS: Ovoid T2 hyperintense, enhancing lesion in the lateral left upper oral cavity region measuring approximately 8 x 8 x 9 mm in maximum AP, cc and transverse dimensions respectively. Neoplastic lesion can not be excluded. Symmetric soft tissue fullness in the tonsillar pillar region bilaterally as described on CT neck examination from the same date. This is likely reactive/inflammatory. Otherwise no facial region mass or abnormal enhancement. Nonenlarged lymph nodes are noted in the submental region as well as in the visualized upper neck. No suspicious regional marrow lesions. Enhancing lesion in the right cerebellopontine angle region extending into the right IAC as described on MRI head report from the same date. IMPRESSION: Small enhancing lesion in the lateral left upper oral cavity region measuring approximately 8 x 8 x 9 mm. Neoplastic lesion can not be excluded Otherwise no facial region mass or abnormal enhancement. Symmetric soft tissue fullness in the tonsillar pillar region bilaterally as described on CT neck examination from the same date. This is likely reactive/inflammatory. JOB #: [id number] Final Signed by: Dash Terry MD Signed (Electronic Signature): 07/17/2022 4:50 pm
--- OUTSIDE RECORDS SUMMARY | 2022-12-04 10:34 | XMS_ITS | Continuity of Care Document ---
Author Name Unknown Organization [facility] Ambulatory Clinics Address [address] [place] [address] Encounter [facility] NBR [id number] Date(s): 08/07/22 - 08/07/22 [facility] Ambulatory Clinics [address], [place] [address] Encounter Diagnosis Vulvovaginitis(Discharge Diagnosis) - 08/07/22 Discharge Disposition: Home or Self Care Attending Physician: Peña Stein MD, FACOG Allergies, Adverse Reactions, Alerts Substance Reaction Severity Status codeine exteme illness Severe Active Vicodin Itchy Moderate Active Methadone Hydrochloride extreme illness Severe A ctive Tylenol with Codeine Itchy Moderate Active KlonoPIN Skinner Chris syndrome Severe Act skyla Functional Status 08/07/22 Recent Travel History No recent travel Other exposure to Infectious Disease Non e Medications !-MetroGel-Vaginal 0.75% vaginal gel with applicator 1 chelle, VAG, BID, # 70 g, 0 Refill(s), Pharmacy: [facility] Start Date: 08/07/22 Stop Date: 08/12/22 Status: Ordered Abilify 30 mg oral tablet 30 mg = 1 tab, Oral, Daily, # 90 tab, 0 Refill(s) Start Date: 08/07/22 Status: Ordered albuterol 2.5 mg/3 mL (0.083%) inhalation solution 2.5 mg = 3 mL, NEB, every 8 hr, PRN as needed for wheezing, # 90 mL, 0 Refill(s) Start Date: 08/07/22 Status: Ordered ALPRAZolam 1 mg oral tablet 1 mg = 1 tab, Oral, every 12 hr, 0 Refill(s) Start Date: 08/07/22 Status: Ordered clotrimazole-betamethasone dipropionate 1%-0.05% topical cream 1 chelle, Topical, BID, # 45 g, 3 Refill(s), Pharmacy: [facility] Start Date: 08/07/22 Status: Ordered ergocalciferol 1.25 mg (50,000 intl units) oral capsule 50,000 IntlUnit = 1 cap, Oral, every week, # 4 cap, 0 Refill(s) Start Date: 08/07/22 Status: Ordered estradiol 0.1 mg/g vaginal cream 0 Refill(s) Start Date: 08/07/22 Status: Ordered estradiol 1 mg oral tablet 1 mg = 1 tab, Oral, Daily, # 90 tab, 0 Refill(s) Start Date: 08/07/22 Status: Ordered ibuprofen 800 mg oral tablet 800 mg = 1 tab, Oral, every 8 hr, # 30 tab, 0 Refill(s) Start Date: 08/07/22 Status: Ordered insulin aspart 30 units =, Subcutaneous, every night at bedtime, 0 Refill(s) Start Date: 08/07/22 Status: Ordered levothyroxine 150 mcg (0.15 mg) oral tablet 300 mcg = 2 tab, Oral, Daily, # 90 tab, 0 Refill(s) Start Date: 08/07/22 Status: Ordered levothyroxine 25 mcg (0.025 mg) oral tablet 25 mcg = 1 tab, Oral, Daily, # 30 tab, 0 Refill(s) Start Date: 08/07/22 Status: Ordered meclizine 25 mg oral tablet 25 mg = 1 tab, Oral, TID, PRN as needed for dizziness, # 30 tab, 0 Refill(s) Start Date: 08/07/22 Status: Ordered naratriptan 1 mg oral tablet 2.5 mg = 2.5 tab, Oral, every 12 hr, PRN as needed for migraine headache, may repeat dose once in 4hours, # 18 tab, 0 Refill(s) Start Date: 08/07/22 Status: Ordered NexIUM 40 mg oral delayed release capsule 40 mg = 1 cap, Oral, Daily, # 90 cap, 0 Refill(s) Start Date: 08/07/22 Status: Ordered One Touch Ultra Test Strips Supply, See instructions, # 1 EA, 0 Refill(s) Start Date: 08/07/22 Status: Ordered OxyCONTIN 9 mg =, Oral, every 12 hr, 0 Refill(s) Start Date: 08/07/22 Status: Ordered Percocet 5 mg-325 mg oral tablet 1 tab, Oral, every 4 hr, PRN as needed for pain, 0 Refill(s) Start Date: 08/07/22 Status: Ordered ProAir HFA 2 puffs, Inhale, Daily, 0 Refill(s) Start Date: 08/07/22 Status: Ordered PROzac 40 mg oral capsule 80 mg = 2 cap, Oral, Daily, # 60 cap, 0 Refill(s) Start Date: 08/07/22 Stop Date: 09/06/22 Status: Ordered Restasis 0.05% ophthalmic emulsion 1 drops, Eye-Both, every 12 hr, # 30 EA, 0 Refill(s) Start Date: 08/07/22 Status: Ordered Singulair 10 mg oral tablet 20 mg = 2 tab, Oral, Daily, # 60 tab, 0 Refill(s) Start Date: 08/07/22 Status: Ordered sucralfate 0 Refill(s) Start Date: 08/07/22 Status: Ordered Trelegy Ellipta 0 Refill(s) Start Date: 08/07/22 Status: Ordered Trelegy Ellipta 100 mcg-62.5 mcg-25 mcg/inh inhalation powder 1 puffs, Inhale, Daily, at the same time every day, # 60 EA, 0 Refill(s) Start Date: 08/07/22 Status: Ordered Trulicity Pen 1.5 mg/0.5 mL subcutaneous solution 1.5 mg = 0.5 mL, Subcutaneous, every week, 0 Refill(s) Start Date: 08/07/22 Status: Ordered Vitamin D with Minerals oral tablet 1 tab, Oral, Daily, # 90 tab, 0 Refill(s) Start Date: 08/07/22 Status: Ordered Zofran 4 mg oral tablet 4 mg = 1 tab, Oral, every 8 hr, 0 Refill(s) Start Date: 08/07/22 Status: Ordered Vital Signs Most recent to oldest [Reference Range]: 1 Blood Pressure [90-140/60-90 mmHg] 112/7 6mmHg (08/07/22 8:08 AM) Weight 85.6 kg (08/07/22 8:08 AM) Weight Measured (lbs) 188.715 lb (08/07/22 8:08 AM) [place] Body Weight Calculated 57 kg (08/07/22 8:08 AM) Height 165.1 cm (08/07/22 8:08 AM) Height/Length Measured (inches) 65 inch (08/07/22 8:08 AM) BSA Measured 1.98 m2 (08/07/22 8:08 AM) Body Mass Index 31.4 kg/m2 (08/07/22 8:08 AM) Social History Social History Type Response Tobacco Current everyday tob acco user Tobacco Use:. 10 per day. 42 year(s). Sex Hospital Discharge Instructions Follow Up Care 08/06/2022 12:07:16 With:Return to this practice Address: When: Unknown Comments:As needed
--- OUTSIDE RECORDS SUMMARY | 2022-12-04 10:34 | XMS_ITS | Continuity of Care Document ---
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 Normal cardiomediastinal contour. Normal pleural margins with no pleural effusion or pneumothorax. Mild spondylotic changes of the dorsal spine. IMPRESSION: No active chest disease. JOB #: [id number] Final Signed by: Dash Terry MD Signed (Electronic Signature): 08/01/2022 11:29 am XR Chest 2 Views * Dash Terry MD: VERIFY, VERIFY Event Display: Report EXAM DESCRIPTION: XR Chest 2 Views 08/01/2022 INDICATION: MALIGNANT MELANOMA OF [place] OF HEAD AND NECK COMPARISON: 04/21/2021 FINDINGS: Clear lungs with no focal infiltrate or pulmonary edema. Normal cardiomediastinal contour. Normal pleural margins with no pleural effusion or pneumothorax. Mild spondylotic changes of the dorsal spine. IMPRESSION: No active chest disease. JOB #: [id number] Final Signed by: Dash Terry MD Signed (Electronic Signature): 08/01/2022 11:29 am
--- OUTSIDE RECORDS SUMMARY | 2022-12-04 10:35 | XMS_ITS ---
Author Name Ping Zheng Address [address], [place] [id number] Organization [facility] Address [address], [place] [id number] Care Team Providers Care Conditioning Room Worker Name Role Phone Ping Zheng Unavailable [phone] PROBLEMS Type Condition ICD9-CM Code UDC27-UY Code Onset Dates Condition Status SNOMED Code Problem Gastroparesis K31.84 Active 157277454 Problem Other hemorrhoids K64.8 Active 601280 02 Problem Other fatigue R53.83 Active 15560912 Problem Esophagitis, unspecified K20.9 Active 67297859 Problem Polyp of colon K63.5 Active 36805394 Problem Melena K92.1 Active 3643404 Problem Abdominal tenderness, unspecified site R10.819 Active 68407309 Problem Urinary tract infection, site not specified N39.0 Active 93031845 Problem Stress incontinence (female) (male) N39.3 Active 45648543 Problem Diarrhea, unspecified R19.7 Active 09272968 Problem 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 Active 257643348 Problem Other chronic pain G89.29 Active 73610463 Problem Obstructive sleep apnea (adult) (pediatric) G47.33 Active 55661388 Problem Nicotine dependence, unspecified, uncomplicated F17.200 Active 963045667 Problem Insomnia, unspecified G47.00 Active 243156092 Problem Chronic obstructive pulmonary disease, unspecified J44.9 Active 63993033 Problem Other obesity E66.8 Active 957953735 Problem Urge incontinence N39.41 Active 253912 04 Problem Change in bowel habit R19.4 Active 25516269 Problem Hematuria, unspecified R31.9 Active 06948276 Problem Candidiasis of vulva and vagina B37.3 Active 84586504 Problem Menopausal and female climacteric states N95.1 Active 435284698 Problem Subacute vulvitis N76.3 Active 071507 004 Problem Unspecified sensorineural hearing loss H90.5 Active 34317755 Problem Vaginal atrophy N95.2 Active 36119948 9 Problem Concussion without loss of consciousness, initial encounter S06.0X0A Active 75399136 Problem Dizziness and giddiness R42 Active 291575039 Problem Subacute vaginitis N76.1 Active [id number] 05 Problem Stress incontinence of urine N39.3 Active Problem Genital warts A63.0 Active 981104145 Problem Incontinence in female R32 Active 62862776 ALLERGIES Substance Reaction Event Type Date Status Methadone HCl gets extreme ill Drug Allergy February, A ctive codeine gets extremely ill Drug Allergy February, Ac tive Vicodin skin blisters Drug Allergy February, Active Klonopin itching and hot Drug Allergy February, Activ e trees, dust, grass, pet dander asthma, rash, itch Non Drug Allergy February, Active Clear plastic tape rash Non Drug Allergy February, Active ENCOUNTERS Encounter Location Date Diagnosis [address] [id number] February, [facility] [address] [facility] [address] [place], [place] [id number] February, Panniculitis M79.3 [facility] [address] [place], [place] [id number] February, Encounter for screening laboratory testing for COVID-19 virus Z[address] [id number] Jan, Candidiasis B37.[address] [id number] Jan, [address] [place] [address] [id number] Dec, [address] [place] [address] [id number] 18 Dec, 2021 Subacute vulvitis N76.[address] [id number] Mar, Vaginal atrophy N95.2 ; Subacute vulvitis N76.3 ; Incontinence in female R32 and Stress incontinence of urine N39.[address] [id number] Sep, Subacute vulvitis N76.[address] [id number] Jan, [address] [id number] Jan, [address] [id number] Dec, Acute vaginitis N76.[address] [id number] Sep, Acute vaginitis N76.[address] [id number] Sep, [address] [id number] Apr, [address] [id number] Apr, Screening examination for infectious disease Z11.9 ; Vaginal Pap smear Z12.72 and Vaginal atrophy N95.[address] [id number] Mar, [address] [id number] Jan, Mastalgia N64.[address] [id number] Jan, [address] [id number] Dec, Breast pain, right N64.[address] [id number] Aug, [address] [id number] Aug, Vaginal atrophy N95.2 and Vaginitis and vulvovaginitis N76.0 [facility] [address] [facility] [address] [place], [place] [id number] Aug, [facility] [address] [facility] [address] [place], [place] [id number] Jul, [facility] [address] [facility] [address] [place] [address] [id number] Apr, Subacute vulvitis N76.[address] [place], [place] [id number] February, [address] [place] [address] [id number] Jan, Encounter for other specified surgical aftercare Z48.[address] [place] [address] [id number] Nov, Encounter for other specified surgical aftercare Z48.[address] [place] [address] [id number] Nov, [address] [place] [address] [id number] Nov, Encounter for other specified surgical aftercare Z48.89 ; Cystitis N30.90 and Pelvic pain R10.[address] [place] [address] [id number] Nov, [address] [place] [address] [id number] Nov, [facility] [address] [place], [place] [id number] Nov, [facility] [address] [place] [id number] Oct, [address] [place] [address] [id number] Oct, [address] [place] [address] [id number] Oct, [address] [place] [address] [id number] Oct, [address] [place] [address] [id number] Oct, [address] [place] [address] [id number] Oct, [address] [id number] Oct, Incontinence in female R32 ; Breast pain, right N64.4 ; Vaginal discharge N89.8 and Genital warts A63.[address] [id number] Sep, Stress incontinence of urine N39.[address] [id number] Jul, Menopausal and female climacteric states N95.1 ; Candidiasis of vulva and vagina B37.3 ; Subacute vaginitis N76.1 and Encounter for screening mammogram for breast cancer Z12.[address] [id number] Jul, [address] [id number] Apr, Menopausal and female climacteric states N95.[address] [id number] Apr, Menopausal and female climacteric states N95.1 and Candidiasis of vulva and vagina B37.[address] [id number] Mar, Menopausal and female climacteric states N95.[address] [id number] February, Menopausal and female climacteric states N95.1 ; Candidiasis of vulva and vagina B37.3 and Nicotine dependence, unspecified, uncomplicated F17.[address] [id number] February, Candidiasis of vulva and vagina B37.3 ; Menopausal and female climacteric states N95.1 and Nicotine dependence, unspecified, uncomplicated F17.[address] [id number] Jan, [address] [id number] Dec, [address] [id number] Dec, Peña Stein MD [address] [place], [place] [id number] Dec, [address] [id number] Nov, Menopausal and female climacteric states N95.[address] [id number] Oct, [address] [id number] Oct, Menopausal and female climacteric states N95.[address] [id number] Aug, Menopausal and female climacteric states N95.[address] [id number] Jul, [facility] [address] [place] [address] [id number] Mar, [facility] [address] [id number] Jan, [facility] [address] [place] [id number] Jan, Lymphadenopathy of head and neck region R59.[address] [id number] Nov, [address] [id number] Nov, Menopausal and female climacteric states N95.1 ; Candidiasis of vulva and vagina B37.3 and Urinary tract infection, site not specified N39.[address] [place] [address] [id number] Sep, [address] [place] [id number] Sep, [facility] [address] [place] [address] [id number] Jul, [facility] [address] [id number] Jun, [facility] [address] [place] [address] [id number] 08 Jun, 2015 RUQ abdominal pain 789.01 [facility] [address] [place] [address] [id number] May, [facility] [address] [facility] [address] [place] [address] [id number] May, Vulvovaginitis 616.[address] [facility] [address] [facility] [address] [place] [address] [id number] May, [facility] [address] [place], [place] [id number] May, Obstructive sleep apnea 327.23 ; COPD (chronic obstructive pulmonary disease) with chronic bronchitis 491.20 ; Chronic obstructive asthma 493.20 ; Tobacco use disorder 305.1 ; Obesity 278.00 and Chronic pain 338.[address] [facility] [address] [facility] [address] [place] [id number] May, GASTROPARESIS 536.3 ; Drug-induced diarrhea 787.91 and Polypharmacy V58.[address] [place] [address] [id number] Apr, Vulvovaginitis 616.10 [facility] [address] [place] [address] [address] [place], [place] [id number] Apr, Obstructive sleep apnea 327.23 ; COPD (chronic obstructive pulmonary disease) with chronic bronchitis 491.20 ; Chronic obstructive asthma 493.20 ; Tobacco use disorder 305.1 ; Obesity 278.00 and Chronic pain 338.29 [facility] [address] [place], [place] [id number] Apr, [facility] [address] [place] [id number] Mar, [facility] Pulmonology [address] [place] [id number] February, Obstructive sleep apnea 327.23 ; COPD (chronic obstructive pulmonary disease) with chronic bronchitis 491.20 ; Chronic obstructive asthma 493.20 ; Tobacco use disorder 305.1 ; Obesity 278.00 and Chronic pain 338.29 [facility] [address] [place], [place] [id number] Dec, [facility] [address] [place] [id number] Dec, [facility] [address] [facility] [address] [place] [address] [id number] Oct, [facility] [address] [facility] [address] [place], [place] [id number] Oct, Fatigue 780.79 [facility] [address] [place], [place] [id number] Oct, Esophagitis 530.10 ; Colon Polyp 211.3 and Internal hemorrhoids 455.[address] [facility] [address] [facility] [address] [place], [place] [id number] Oct, [facility] [address] [facility] [address] [place], [place] [id number] Sep, [facility] Rheumatology [address] [facility] [address] [place] [id number] Sep, [facility] [address] [facility] [address] [place] [id number] Sep, [facility] [address] [facility] [address] [place] [address] [id number] Sep, Hematochezia 578.1 and Abdominal tenderness 789.60 [facility] Otolaryngology [address] [facility] [address] [place], [place] [id number] 16 Jun, 2014 [facility] Audiology [address] [facility] [address] [place], [place] [id number] 16 Jun, 2014 Abnormal auditory perception NOS 388.40 [facility] Otolaryngology [address] [place] [address] [address] [place], [place] [id number] 16 Jun, 2014 Disequilibrium 780.4 ; Sensorineural hearing loss, unspecified 389.10 and Concussion 850.9 [facility] Pulmonology [address] [place] [address] [id number] May, Obstructive sleep apnea 327.23 [facility] [address] [place] [address] [id number] May, [facility] Pulmonology [address] [place] [address] [address] [place], [place] [id number] Apr, [facility] Pulmonology [address] [place] [address] [id number] Apr, COPD (chronic obstructive pulmonary disease) with chronic bronchitis 491.20 ; Chronic obstructive asthma 493.20 ; Tobacco use disorder 305.1 ; Obstructive sleep apnea 327.23 ; Obesity 278.00 ; Insomnia 780.52 ; Chronic pain 338.29 and Marijuana use 305.20 [facility] Pulmonology [address] [place] [address], [place] [id number] Nov, COPD (chronic obstructive pulmonary disease) [address] [facility] [address] [id number] May, Urge incontinence 788.31 [facility] [address] [id number] Apr, [facility] [address] [id number] Mar, Stress incontinence, female 625.6 ; UTI [Urinary tract infection] 599.0 and Urge incontinence 788.31 [facility] [address] [id number] Aug, [facility] [address] [id number] Aug, Microscopic hematuria 599.72 and Vaginitis and vulvovaginitis, unspecified 616.10 [facility] [address] [place] [address] [id number] Nov, [facility] [address] [place] [address] [id number] Oct, Leukocytosis 288.8 ; Hypothyroidism (acquired) 244.9 ; GERD 530.81 and Hematuria, unspecified 599.70 IMMUNIZATIONS Vaccine Route Administration Date Status SHARDA - Flu VACC 6 MONTHS > Unknown Jun 17, 2012 A dministered SOCIAL HISTORY Qualifiers Date Current Smoker REASON FOR REFERRAL FUNCTIONAL STATUS PLAN OF CARE Activity Details VITAL SIGNS Height 65.25 in 2022-02-20 Height 65.25 in 2022-02-05 Height 65.25 in 2021-03-12 Height 65.25 in 2019-10-03 Height 65.25 in 2019-04-20 Height 65.25 in 2019-01-12 Height 65.25 in 2018-09-10 Height 65.25 in 2018-04-19 Height 65.25 in 2018-01-22 Height 65.25 in 2017-11-23 Height 65.25 in 2017-10-28 Height 65.25 in 2017-09-29 Height 65.25 in 2017-08-05 Height 65.25 in 2017-04-20 Height 65.25 in 2017-03-11 Height 65.25 in 2017-02-09 Height 65.25 in 2016-08-12 Height 65.25 in 2016-01-30 Height 65.25 in 2015-11-29 Height 65.25 in 2015-06-19 Height 65.25 in 2015-05-25 Height 65.25 in 2015-05-22 Height 65.25 in 2015-05-18 Height 65.25 in 2015-05-07 Height 65.25 in 2015-04-23 Height 65.25 in 2015-02-26 Height 65.25 in 2014-10-27 Height 65.25 in 2014-09-27 Height 65.25 in 2014-06-27 Height 65.25 in 2014-05-09 Height N/A in 2013-11-09 Height N/A in 2013-05-16 Height N/A in 2013-03-31 Height 65.25 in 2009-10-18 Weight 195.8 lbs 2022-02-20 Weight 191.6 lbs 2022-02-05 Weight 191.0 lbs 2021-03-12 Weight 206 lbs 2019-10-03 Weight 199.6 lbs 2019-04-20 Weight 208.0 lbs 2019-01-12 Weight 217.0 lbs 2018-09-10 Weight 221.4 lbs 2018-04-19 Weight 223.0 lbs 2018-01-22 Weight 220.2 lbs 2017-11-23 Weight 220.0 lbs 2017-10-28 Weight 219.2 lbs 2017-09-29 Weight 211.8 lbs 2017-08-05 Weight 211.6 lbs 2017-04-20 Weight 207.8 lbs 2017-03-11 Weight 215.0 lbs 2017-02-09 Weight 221.2 lbs 2016-08-12 Weight 208 lbs 2016-01-30 Weight 208.6 lbs 2015-11-29 Weight 227 lbs 2015-06-19 Weight 227.0 lbs 2015-05-25 Weight 228 lbs 2015-05-22 Weight 227 lbs 2015-05-18 Weight 230.4 lbs 2015-05-07 Weight 228 lbs 2015-04-23 Weight 235 lbs 2015-02-26 Weight 229.4 lbs 2014-10-27 Weight 225.4 lbs 2014-09-27 Weight 215 lbs 2014-06-27 Weight 210 lbs 2014-05-09 Weight 226 lb 8 oz lbs 2013-11-09 Weight 226 lbs 2009-10-18 Temperature 97.6 degrees Fahrenheit Temperature Tympanic:98.5 degrees Fahrenheit 2017-11-23 Temperature 98.9 degrees Fahrenheit Temperature 98.2 degrees Fahrenheit Heart Rate 97 /min 2022-02-20 Heart Rate 98 /min 2016-01-30 Heart Rate 90 /min 2015-05-22 Heart Rate 70 /min 2015-05-18 Heart Rate 90 /min 2015-04-23 Heart Rate 100 /min 2015-02-26 Heart Rate 71 /min 2014-10-27 Heart Rate 96 /min 2014-09-27 Heart Rate 100 /min 2014-05-09 Heart Rate 100 /min 2013-11-09 Heart Rate 108 /min 2013-05-16 Heart Rate 102 /min 2013-03-31 Heart Rate 92 /min 2010-08-20 Heart Rate 96 /min 2009-10-18 Oximetry 98 2022-02-20 Oximetry 98 RA 2016-01-30 Oximetry 99 2015-05-22 Oximetry 96 2015-04-23 Oximetry 97 2015-02-26 Oximetry 97 2014-05-09 Respiratory Rate 16 /min 2015-05-22 Respiratory Rate 16 /min 2015-05-18 Respiratory Rate 16 /min 2015-04-23 Respiratory Rate 16 /min 2015-02-26 Respiratory Rate 16 /min 2014-05-09 Respiratory Rate 16 /min 2013-05-16 Respiratory Rate 16 /min 2013-03-31 Respiratory Rate 16 /min 2009-10-18 BMI 32.33 kg/m2 2022-02-20 BMI 31.64 kg/m2 2022-02-05 BMI 31.54 kg/m2 2021-03-12 BMI 34.01 kg/m2 2019-10-03 BMI 32.96 kg/m2 2019-04-20 BMI 34.34 kg/m2 2019-01-12 BMI 35.83 kg/m2 2018-09-10 BMI 36.56 kg/m2 2018-04-19 BMI 36.82 kg/m2 2018-01-22 BMI 36.36 kg/m2 2017-11-23 BMI 36.33 kg/m2 2017-10-28 BMI 36.19 kg/m2 2017-09-29 BMI 34.97 kg/m2 2017-08-05 BMI 34.94 kg/m2 2017-04-20 BMI 34.31 kg/m2 2017-03-11 BMI 35.50 kg/m2 2017-02-09 BMI 36.52 kg/m2 2016-08-12 BMI 34.34 kg/m2 2016-01-30 BMI 34.44 kg/m2 2015-11-29 BMI 37.48 kg/m2 2015-06-19 BMI 37.48 kg/m2 2015-05-25 BMI 37.65 kg/m2 2015-05-22 BMI 37.48 kg/m2 2015-05-18 BMI 38.04 kg/m2 2015-05-07 BMI 37.65 kg/m2 2015-04-23 BMI 38.80 kg/m2 2015-02-26 BMI 37.88 kg/m2 2014-10-27 BMI 37.22 kg/m2 2014-09-27 BMI 35.50 kg/m2 2014-06-27 BMI 34.67 kg/m2 2014-05-09 BMI 37.40 kg/m2 2013-11-09 BMI 37.32 kg/m2 2009-10-18 Blood pressure systolic 118 mm Hg Blood pressure diastolic 70 mm Hg 2022-02 MEDICATIONS Medication Instructions Dosage Frequency Start Date End Date Duration Status Clobetasol Propionate 0.05 % Externally Twice a day 1 application to affected area 12h Apr, Not-Elvin ing Ibuprofen 800 MG Orally Three times a day 1 tablet as needed 8h 30 day(s) Active Vitamin D 2000 UNIT Orally Once a day 1 tablet 24h Active NexIUM 40 MG Orally Twice a day 1 capsule 12h Active Trelegy Ellipta 100-62.5-25 MCG/INH Inhalation Once a day 1 puff 24h Active Meclizine HCl 25 MG Oral three times a day 1 tablet as needed 8h Active Venlafaxine HCl 50 MG Orally Once a day 1 tablet with food 24h 30 Not-Elvin ing Spiriva HandiHaler 18 MCG Inhalation Once a day 1 capsule 24h Not-Elvin ing ProAir HFA 108 (90 Base) MCG/ACT Inhalation Once a day 2 puffs as needed 24h Active Bydureon 2 MG Subcutaneous once weekly Not-Elvin ing Singulair 10 MG Orally Once a day 2 tablets 24h Active Lyrica 50 MG Orally Three times a day capsules 8h Not-Elvin ing Restasis 0.05 % Ophthalmic Twice a day 1 into affected eye 12h Active glipiZIDE 10 MG Orally Once a day 1 tablet 24h Not-Elvin ing Ozempic (0.25 or 0.5 MG/DOSE) 2 MG/1.5ML as directed Active Estradiol 1 MG Orally Once a day 1 tablet 24h 90 days Active Vitamin D (Ergocalciferol) 64011 UNIT Orally Once a week 1 capsule Active Abilify 30 MG Orally Once a day 1 tablet 24h 30 day(s) Active Levothyroxine Sodium 25 MCG Orally Once a day 1 tablet on an empty stomach in the morning 24h Active Breo Ellipta 200-25 MCG/INH Inhalation Once a day 1 puff 24h Not-Elvin ing Naratriptan HCl 2.5 MG TK 1 T PO BID A PREVENTATIVE FOR MIGRAINES 30 Active PROzac 40 MG Orally Once a day 2 capsule in the morning 24h 30 day(s) Active Estradiol 0.1 MG/GM Vaginal twice weekly 1 gram as directed Jan, 1 year Active ALPRAZolam 1 MG Orally Twice a day 1 tablet 12h Active Chantix 1 MG Orally Twice a day 1 tablet 12h Not-Elvin ing Patanol 0.1 % Ophthalmic Twice a day 1 drop into affected eye 12h Not-Elvin ing Veramyst 27.5 MCG/SPRAY Nasally Once a day 1 puff in each nostril 24h 30 day(s) Not-Elvin ing BD Swab Single Use Regular 70 pad Active One Touch Delica Lancets Active Albuterol Sulfate (2.5 MG/3ML) 0.083% Inhalation Three times a day 3 ml 8h Active hydroCHLOROthiazide 50 MG Orally Once a day 1 tablet 24h 30 day(s) Not-Elvin ing Levothyroxine Sodium 150 MCG Orally Once a day 2 tablets on an empty stomach in the morning 24h Active Zofran 4 MG Orally every 8 hours 8h Active Marijuana (Medical) As Directed Active metronidazole 0.75 % Externally Twice a day 1 application to affected area 12h 7 days Not-Elvin ing PROCEDURES Procedure Date Ordered Result Body Site SPEECH AUDIOMETRY Jun 27, 2014 TC EMG ELECTROMYOGRAPHY May 16, 2013 [facility] VAGINAL May 07, 2015 [facility] VAGINAL May 25, 2015 [place] February 12, 2022 PRESCRIP NOT GEN AT ENCOUNTE Oct 18, 2009 PT VISIT DOC USING CCHIT CER Oct 18, 2009 PURE TONE AUDIOMETRY THRESHOLD, AIR ONLY Jun 27, 2014 [facility] V[facility] Oct 03, 2019 TC COMPLEX UROFLOW May 16, 2013 26 OUTPATIENT PROLONGED SERVICE FIRST HOUR Oct 18, 0 IH URINALYSIS NONAUTO W/O SCOPE Oct 28, 2017 BLADDER SCAN May 16, 2013 EGD WITH BIOPSYS Oct 19, 2014 WET IAN W/PREP VAG CERV/SKN SPEC Nov 29, 2015 [facility] OUT PT CLINIC COLLECTION FOR SARS COV M ay 2021 URINALYSIS NONAUTO W/O SCOPE March 31, 2013 COLONOSCOPY AND BIOPSY (3) 2014-09-27 N/A 26 CYSTOMETROGRAM W/LINE PREP COOK&UP May 16, 2013 26 COMPLEX UROFLOW May 16, 2013 26 EMG ELECTROMYOGRAPHY S May 16, 2013 26 AP STUDY May 16, 2013 URINALYSIS NONAUTO W/O SCOPE May 16, 2013 BLADDER SCAN March 31, 2013 [facility] VAG[facility] April 19, 2018 IH URINALYSIS NONAUTO W/O SCOPE Nov 23, 2017 TC CYSTOMETROGRAM W/LINE PREP COOK&UP May 16, 2013 TC OUTPATIENT PROLONGED SERVICE FIRST HOUR Oct 18, 201 0 [facility]/[place] VAGINAL Oct 28, 2017 TC AP STUDY May 16, 2013 RESULTS Name Result Date Reference Range COVID 19 (POS) SOFIA2 SARS Ag Flu A Flu B SARS negative CULTURE STREP GR A 2020-09-20 STREP SCREEN GR A with REFLEX CULTURE 2020-09-20 STREP A Ag NEGATIVE NEGATIVE Pap Lb, Ct-Ng, rfx HPV all 2019-04-20 . Chlamydia, Nuc. Acid Amp Gonococcus, Nuc. Acid Amp Note: . Clinical history: DIAGNOSIS: Specimen adequacy: Additional comment: Recommendation: Performed by: Electronically signed by: Test ordered: Maturation index: Amended report: Addendum: QC reviewed by: Cytology history: Special procedure: QA comment: Diagnosis provided by: Source: Pathologist provided ICD9: Clinician provided ICD9: Interpretation LBP CPT Code Automation HIV 1/0/2 ANTIBODIES 2019-04-20 HIV1/O/2 Abs,P24Ag NON-REACTIVE NON-REACT SHEREE HSV TYPE 2 IGG ABS WITH REFLEX([id number]) 2019-04-20 HSV 2 IgG, Type Spec 7.83 0.00-0. 90 MG MAMMOGRAPHY BILATERAL DIAGNOSIS 2019-01-07 US BREAST RIGHT LIMITED 2019-01-07 URINE DIP ([facility]) 2017-11-23 Color dark yellor Clarity clear Glucose negative Bilirubin negative Ketones negative Specific [place] 1.020 Blood about 250 PH 6 Protein +30 Uro normal Nitrates negative Leukocytes trace CULTURE URINE 2017-11-23 CBC, WITH AUTO DIFF 2017-11-18 WBC 17.0 4.8-10.8 RBC 3.56 4.20-5.40 HGB 10.8 12.0-16.0 HCT 33.2 37.0-47.0 MCV 93.3 81.0-99.0 MCH 30.3 27.0-31.0 MCHC 32.5 32.0-37.0 RDW-CV 15.5 11.5-14.5 PLT 268 130-400 MPV 10.1 7.4-10.4 NE% 73.6 42.2-75.2 LY% 16.0 20.5-51.1 MO% 8.3 1.7-9.3 EO% 0.9 0.9-2.9 BA% 0.3 0.0-0.8 NE# 12.5 1.4-6.5 LY# 2.7 1.2-3.4 MO# 1.4 0.1-0.6 EO# 0.2 0.0-0.2 BA# 0.1 0.0-0.2 GLYCOHEMOGLOBIN A1C 2017-11-18 HGBA1c 6.4 4.0-6.0 est Average Glucose 136 70-105 CBC, WITH MANUAL DIFF 2017-11-17 WBC 25.2 4.8-10.8 RBC 3.87 4.20-5.40 HGB 11.8 12.0-16.0 HCT 36.2 37.0-47.0 MCV 93.5 81.0-99.0 MCH 30.5 27.0-31.0 MCHC 32.6 32.0-37.0 RDW-CV 13.7 11.5-14.5 PLT 322 130-400 MPV 10.1 7.4-10.4 MANUAL DIFF MANUAL DIFFERENTIAL SEGS 78 42-75 BANDS 3 0-6 LYMPHS 12 20-51 ABRIL. LYMPHS <=1 MONOS 7 2-9 EOS 0-3 BASO 0-1 METAS MYELOS NRBC PLT ESTIMATE ADEQUATE ADEQUATE RBC MORPH NORMAL NORMAL ANISO POIK MICRO MACRO HYPO POLYCHROM TROPONIN I 2017-11-17 TROPONIN I <0.01 <=0.05 TROP HEAD Elevated levels of Troponin I are detectable in serum within 3-6 hours after onset of myocardial infarction, reach peak concentrations in approximately 12-16 hours, and remain elevated for 4-9 day IMMEDIATE SPIN CROSSMATCH 2017-11-17 PT ABORh: A NEGATIVE UNIT ABORh: A NEGATIVE UNIT #: [id number] ooK UNIT EXP DATE: 12/09/2017 BLOOD COMPONENT LRBC CROSSMATCH INTERP: COMPATIBLE RBC VOLUME APPROXIMATELY 350 mL. RBC COMP CHART RED CELL ABO COMPATI BILITY PATIENT TYPE COMP RBCs O POSITIVE O +/= A POSITIVE A +/=;O +/= B POSITIVE TRXN PROC IF THERE IS A SUSPEC TODD TRANSFUSION REACTION 1. Stop the transfusion. 2. Notify the pt's MD and the laboratory. 3. Unless only urticaria, return the unit with all attached fluids and tubin CBC, WITH AUTO DIFF 2017-11-17 WBC 24.3 4.8-10.8 RBC 3.84 4.20-5.40 HGB 11.4 12.0-16.0 HCT 35.2 37.0-47.0 MCV 91.7 81.0-99.0 MCH 29.7 27.0-31.0 MCHC 32.4 32.0-37.0 RDW-CV 15.1 11.5-14.5 PLT 272 130-400 MPV 10.2 7.4-10.4 NE% 82.3 42.2-75.2 LY% 10.8 20.5-51.1 MO% 6.1 1.7-9.3 EO% 0.0 0.9-2.9 BA% 0.2 0.0-0.8 NE# 20.0 1.4-6.5 LY# 2.6 1.2-3.4 MO# 1.5 0.1-0.6 EO# 0.0 0.0-0.2 BA# 0.1 0.0-0.2 CBC, WITH MANUAL DIFF 2017-11-17 WBC 14.6 4.8-10.8 RBC 4.09 4.20-5.40 HGB 12.6 12.0-16.0 HCT 38.2 37.0-47.0 MCV 93.4 81.0-99.0 MCH 30.8 27.0-31.0 MCHC 33.0 32.0-37.0 RDW-CV 13.7 11.5-14.5 PLT 343 130-400 MPV 10.2 7.4-10.4 MANUAL DIFF MANUAL DIFFERENTIAL SEGS 73 42-75 BANDS 1 0-6 LYMPHS 20 20-51 ABRIL. LYMPHS <=1 MONOS 3 2-9 EOS 3 0-3 BASO 0-1 METAS MYELOS NRBC PLT ESTIMATE ADEQUATE ADEQUATE RBC MORPH NORMAL NORMAL ANISO POIK MICRO MACRO HYPO POLYCHROM TYPE AND SCREEN 2017-11-17 TS COMM Pre-op Type & Screen specimens are valid for 7 days. If the patient has been transfused or been within the past 3 months, the specimen is only valid for 3 days. IMMEDIATE SPIN CROSSMATCH 2017-11-17 PT ABORh: A NEGATIVE UNIT ABORh: A NEGATIVE UNIT #: [id number] ooD UNIT EXP DATE: 11/30/2017 BLOOD COMPONENT LRBC CROSSMATCH INTERP: COMPATIBLE RBC VOLUME APPROXIMATELY 350 mL. RBC COMP CHART RED CELL ABO COMPATI BILITY PATIENT TYPE COMP RBCs O POSITIVE O +/= A POSITIVE A +/=;O +/= B POSITIVE TRXN PROC IF THERE IS A SUSPEC TODD TRANSFUSION REACTION 1. Stop the transfusion. 2. Notify the pt's MD and the laboratory. 3. Unless only urticaria, return the unit with all attached fluids and tubin COMPREHENSIVE METABOLIC PROFILE 2017-11-17 SODIUM 136 136-145 POTASSIUM 3.8 3.5-5.1 CHLORIDE 103 98-111 CO2 23 22-32 CALCIUM 8.0 8.9-10.3 BUN 13 8-26 CREATININE 0.58 0.44-1.00 TOTAL BILIRUBIN 0.3 0.3-1.2 TOTAL PROTEIN 5.9 6.5-8.1 ALBUMIN 3.2 3.5-5.0 ALKALINE PHOS 47 38-130 AST 18 15-41 ALT 12 14-54 A/GAP 10.0 3.0-12.0 B/CR 22.4 8.0-20.0 OSMOLARITY 277 275-295 GLOBULIN 2.7 2.3-3.5 A/G 1.2 1.0-2.5 MAGNESIUM 2017-11-17 MAGNESIUM 1.4 1.8-2.5 PACKED RED BLOOD CELLS 2 UNITS 2017-11-17 COMPLETE: YES TROPONIN I 2017-11-17 TROPONIN I <0.01 <=0.05 TROP HEAD Elevated levels of Troponin I are detectable in serum within 3-6 hours after onset of myocardial infarction, reach peak concentrations in approximately 12-16 hours, and remain elevated for 4-[address] PELVIS W CONTRAST 2017-11-17 XR CHEST SINGLE VIEW 2017-11-17 URINE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
--- NOTE | 2022-12-04 10:47 | ED.GENADUL_ITS ---
Discharge Plan Disposition Patient Disposition: Home Discharge Details Clinical Impression: Pain in oral cavity, Leukocytosis, Hypomagnesemia Primary Care Provider: Tom Hay ED Provider: Brain Smith Home Meds and New Rx's Prescriptions: Continued fluoxetine [Prozac] 40 mg Capsule 80 mg PO DAILY alprazolam [Xanax] 1 mg Tablet 1 mg PO TID aripiprazole [Abilify] 30 mg Tablet 20 mg PO DAILY Trelegy Ellipta 100-62.5-25 mcg Blister With Device 1 inh INHALATION DAILY albuterol sulfate 90 mcg/actuation Aero Powdr Breath Act W/Sensor 2 inh INHALATION Q6H glyburide 2.5 mg tablet 2.5 mg PO DAILY Qty: 30 0RF levothyroxine 25 mcg tablet 325 mcg PO DAILY Rx Instructions: pt takes total of 325mcg, (2) 150mcg and (1) 25mcg insulin lispro 100 unit/mL insulin pen 1 sliding scale dose subcut USEASDIRECTD Qty: 3 0RF Rx Instructions: Check blood sugar before meals. If glucose < 250, no insulin; if glucose 251 - 300 then 2 units; if glucose 301 - 350 then 4 units; if glucose 351 - 400 then 6 units; if glucose 401 - 450 then 8 units; if glucose > 450 then 10 units and call your PCP. Jardiance 10 mg tablet 1 tab PO 1XD meclizine 12.5 mg tablet 12.5 mg PO TID PRN (Reason: dizziness) Qty: 14 0RF ondansetron HCl 4 mg Tablet 4 mg PO Q6H PRN meclizine 25 mg Tablet 25 mg PO BID PRN morphine 30 mg tablet extended release 30 mg PO Q12H oxycodone 5 mg capsule 10 mg PO Q4H PRN prednisone 20 mg tablet 20 mg PO DAILY Rx Instructions: taper Discharge Instructions Instructions: Chest Pain (ED), Hypomagnesemia (ED) Additional Instructions: CT imaging of your chest and neck were interpreted by radiology and did not reveal any acute finding that would explain symptoms today. CT of the neck did reveal the following findings: There appears to be a 0.9 x 0.7 cm enhancing soft tissue mass arising from or adjacent to the right internal auditory canal.? Differential considerations include schwannoma or meningioma.? Nonemergent MRI of the IAC's without and with contrast is recommended.? Please correlate with the patient's physical exam. Please contact your primary care physician to arrange outpatient MRI. Your white blood cell count remains elevated. There is concern that you may have ongoing dental infection. Plan to initiate treatment with new antibiotic, clindamycin. Be sure to take regx-get-zyrbchy probiotic and eat yogurt to help with gut zeferino while you are taking antibiotic. Please contact your primary care physician to arrange follow-up. Be sure to discuss chest pain with your doctor. Outpatient diagnostic work-up including outpatient stress test is indicated. Call today. Return to the ER immediately for any worsening or new concerning symptoms. 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 Concern for occult acute pulmonary embolism versus less likely ACS versus metastatic disease. EKG was reviewed and interpreted by me: Please report, sinus tachycardia 101 bpm, T wave inversions are noted in aVL and V2, these were present on prior EKG from [facility] record 10/14/2022 (I obtained and reviewed outside hospital records). Plan to obtain CT of the chest and neck. -- Labs reviewed: Initial troponin negative. Repeat troponin negative. Magnesium is low at 1.6. I will give Mag-Ox 800 mg. Leukocytosis is noted. 1444 --CT of the chest was interpreted by radiology: 1. No evidence of pulmonary embolism, thoracic aortic dissection or aneurysm.? 2. Findings were discussed with the emergency department on 12/04/2022. CT of the neck was interpreted by radiology: 1. No findings to suggest and neck infection or neck mass. 2. There appears to be a 0.9 x 0.7 cm enhancing soft tissue mass arising from or adjacent to the right internal auditory canal.? Differential considerations include schwannoma or meningioma.? Nonemergent MRI of the IAC's without and with contrast is recommended.? Please correlate with the patient's physical exam. I spoke with the radiologist, Dr. Lubin and discussed ED presentation and course, he does not feel finding on CT neck should explain symptoms today. -- Discontinue Augmentin and start clindamycin. I will have her follow-up with her primary care physician. She is encouraged to return to the ER immediately for any worsening or new concerning symptoms. Usual customary discharge instructions were reviewed. Lab Data Lab results reviewed: Yes I reviewed the patient's lab results. HPI General Date/Time Provider Initiated Documentation: 12/04/22 10:26 . 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 Patient notes persistent facial swelling. Related Data Home Medications Medication Instructions Recorded Confirmed alprazolam 1 mg tablet (Xanax) 1 mg PO TID 07/19/19 12/12/22 aripiprazole 30 mg tablet (Abilify) 20 mg PO DAILY 07/19/19 12/12/22 fluoxetine 40 mg capsule (Prozac) 80 mg PO DAILY 07/19/19 12/12/22 albuterol sulfate 90 mcg/actuation 2 inh inhalation Q6H 06/07/20 12/12/22 breath activated powder inhaler,sensor fluticasone fur. 100 mcg-umeclid 1 inh inhalation DAILY 06/07/20 12/12/22 62.5 mcg-vilant 25 mcg inhalat.powder (Trelegy Ellipta) glyburide 2.5 mg tablet 2.5 mg PO DAILY #30 tabs 02/07/22 12/12/22 levothyroxine 25 mcg tablet 325 mcg PO DAILY 02/19/22 12/12/22 insulin lispro 100 unit/mL 1 sliding scale dose subcut 02/20/22 12/12/22 subcutaneous pen USEASDIRECTD #3 mL meclizine 25 mg tablet 25 mg PO BID PRN 07/12/22 12/12/22 ondansetron HCl 4 mg tablet 4 mg PO Q6H PRN 07/12/22 12/12/22 empagliflozin 10 mg tablet 1 tab PO 1XD 07/16/22 12/12/22 (Jardiance) meclizine 12.5 mg tablet 12.5 mg PO TID PRN dizziness #14 07/17/22 12/12/22 tabs morphine 30 mg tablet,extended 30 mg PO Q12H 11/25/22 12/12/22 release oxycodone 5 mg capsule 10 mg PO Q4H PRN 11/25/22 12/12/22 prednisone 20 mg tablet 20 mg PO DAILY 11/25/22 12/12/22 Previous Rx's Medication Instructions Recorded glyburide 2.5 mg tablet 2.5 mg PO DAILY #30 tabs 02/07/22 insulin lispro 100 unit/mL 1 sliding scale dose subcut 02/20/22 subcutaneous pen USEASDIRECTD #3 mL meclizine 12.5 mg tablet 12.5 mg PO TID PRN dizziness #14 07/17/22 tabs Allergies Allergy/AdvReac Type Severity Reaction Status Date / Time clonidine Allergy Severe nazia Unverified 12/12/22 20:00 adriana syndrome codeine Allergy Itching Unverified 12/12/22 20:00 hydrocodone [From Vicodin] Allergy Itching Unverified 12/12/22 20:00 methadone AdvReac Nausea, Unverified 12/12/22 20:00 vomiting General Stated Complaint: Chest Pain JOANNE: 2 Review of Systems Constitutional Constitutional: Reports as per HPI and Reports fever(s) Respiratory Respiratory: Reports as per HPI PFSH All Active Problems Enteritis (Acute) UTI (urinary tract infection) (Acute) Skin irritation (Acute) Abdominal pain (Acute) Pulmonary nodule (Acute) Nausea (Acute) Nausea and vomiting (Acute) COVID-19 (Acute) Facial swelling (Acute) Pain in oral cavity (Acute) Leukocytosis (Acute) Hypomagnesemia (Acute) Whole body pain (Acute) Medical History Anxiety Asthma COPD (chronic obstructive pulmonary disease) Depression Diabetes mellitus GERD (gastroesophageal reflux disease) Hypothyroid Melanoma Surgical History History of cholecystectomy History of hysterectomy Hx of shoulder surgery Social History Smoking/Tobacco Use Status: Current every day Tobacco Type: cigarettes Smoking risk assessment performed?: Yes Alcohol Intake: never Drug use: Daily Substance use type: marijuana Do you feel safe at home: Yes Do you feel safe in your relationship?: Yes Exam Const General: cooperative and no acute distress HENMT Mouth: moist mucous membranes Other: No trismus Eyes Conjunctivae: normal conjunctivae Sclera: normal sclerae EOM: EOM intact bilaterally Neck Neck: trachea midline and supple Other: Mild swelling left neck Resp Auscultation: clear to auscultation bilaterally, no rales, no rhonchi and no wheezes Cardio Rate: regular rate and not tachycardic Rhythm: regular rhythm Skin General skin exam: no rashes or lesions noted Neuro General: patient alert, patient awake and tone normal Psych Appearance: grossly normal Mental Status: mental status grossly normal Speech and Movement: speech and movement normal Course Vital Signs Vital signs: Vital Signs Temperature 36.3 C L 12/04/22 10:29 Pulse 102 H 12/04/22 10:29 Respiratory Rate 22 12/04/22 10:29 Blood Pressure 129/79 12/04/22 10:29 Pulse Oximetry 99 12/04/22 10:29 Temperature 36.3 C L 12/04/22 10:29 Temperature Source Temporal Artery Scan 12/04/22 10:29 Pulse 102 H 12/04/22 10:29 Respiratory Rate 22 12/04/22 10:29 Respiratory Effort Normal, Non-Labored 12/04/22 10:26 Blood Pressure 129/79 12/04/22 10:29 Pulse Oximetry 99 12/04/22 10:29 Oxygen Delivery Method Room Air 12/04/22 10:29 Oxygen Flow Rate 0 12/04/22 10:29 Lab/Test Results Lab/Test Results: 12/04/22 10:33 Blood Blood Culture - Pending 12/04/22 10:33 Blood Blood Culture - Pending
[2022-12-04 11:07] LABS: Absolute Basophil Count 0.13 10^3/uL (0.0-0.2); Absolute Monocyte Count 1.42 10^3/uL (0.1-0.8); Basophils % 0.7; Eosinophils % 1.7; HCT 42.3 % (36.0-46.0); HGB 13.6 g/dL (11.2-15.7); Immature Grans % 2.8; Lactate 0.9 mmol/L (0.6-1.4); MCH 30.3 pg (27.0-33.0); MCHC 32.2 % (32.0-36.0); MCV 94 fL (80-95); MPV 9.3 fL (8.0-11.0); Monocytes % 7.9; Neutrophils % 56.9; Platelet Count 359 10^3/uL (130-400); RBC 4.49 10^6/uL (3.93-5.22); RDW-SD 48.9 fL; WBC 18.01 10^3/uL (4.4-10.8)
[2022-12-04 11:08] LABS: Absolute Eosinophil Count 0.31 10^3/uL (0.0-0.7); Absolute Neutrophil Count 10.25 10^3/uL (1.2-6.7)
[2022-12-04 11:19] LABS: Diff Comment Diff Reviewed; RBC Morphology Normal
[2022-12-04 11:37] LABS: ALT 16 U/L (14-59); AST < 5 U/L (15-37); Albumin 3.1 g/dL (3.4-5.0); Alkaline Phosphatase 66 U/L (46-116); Anion Gap 5.4 mmol/L (3-11); BUN 20 mg/dL (7-18); Bilirubin, Total 0.3 mg/dL (0.2-1.0); CO2 31.6 mmol/L (21.0-32.0); CREATININE 0.8 mg/dL (0.55-1.02); Calcium 9.2 mg/dL (8.5-10.1); Chloride 105 mmol/L (98-107); Estimated GFR 86.96 (mL/min/1.73m2); Glucose 92 mg/dL (74-106); Magnesium 1.6 mg/dL (1.8-2.4); Sodium 142 mmol/L (136-145); Total Protein 6.4 g/dL (6.4-8.2); Troponin I < 50 ng/L (<or=60)
[2022-12-04] MEDS: oxyCODONE 5 mg/Acetaminophen 325 mg TAB 1 TAB (13:08)
[2022-12-04] MEDS: Omnipaque 350 MG/ML 500 ML BTL-Imaging package IJ (13:34)
[2022-12-04] MEDS: Normal Saline - Diluent 50 ML VIAL IV (13:34)
[2022-12-04 14:00] LABS: Troponin I < 50 ng/L (<or=60)
[2022-12-04] MEDS: Magnesium Oxide 400 MG TAB 800 MG PO (14:06)
[2022-12-04] MEDS: Clindamycin 150 MG CAP 450 MG PO (15:12)
== END 2022-12-04 15:13 | disposition home or self-care (01) ==
PROVIDERS: Emergency Provider Student in an Organized Health Care Education/Training Program; PCP Internal Medicine
DX: D72.829 Elevated white blood cell count, unspecified (principal); E83.42 Hypomagnesemia; K13.79 Other lesions of oral mucosa; J44.9 Chronic obstructive pulmonary disease, unspecified; E11.9 Type 2 diabetes mellitus without complications; I10 Essential (primary) hypertension; F31.9 Bipolar disorder, unspecified; F17.210 Nicotine dependence, cigarettes, uncomplicated; Z85.820 Personal history of malignant melanoma of skin; Z79.51 Long term (current) use of inhaled steroids; Z79.4 Long term (current) use of insulin; Z86.16 Personal history of COVID-19
CPT/HCPCS: 36415; 70491; 71275; 80053; 87040; 93005; 99285; 83605; 83735; 84484; 85025; 93010; 99284

== ENCOUNTER 2022-12-11 20:34 | Emergency (ER) | payer MEDICARE, MEDICAID, SELFPAY ==
[2022-12-11 20:25] VITALS: BP 155/86; PULSE 103; RESP 20; O2SAT 97
[2022-12-11 20:32] VITALS: TEMP 36.6
--- NOTE | 2022-12-11 20:37 | ED.GENADUL_ITS ---
Discharge Plan Disposition Patient Disposition: Home Condition: Good Discharge Details Clinical Impression: Whole body pain Primary Care Provider: Tom Hay ED Provider: Bhavesh Sherman Home Meds and New Rx's Prescriptions: Continued fluoxetine [Prozac] 40 mg Capsule 80 mg PO DAILY alprazolam [Xanax] 1 mg Tablet 1 mg PO TID aripiprazole [Abilify] 30 mg Tablet 20 mg PO DAILY Trelegy Ellipta 100-62.5-25 mcg Blister With Device 1 inh INHALATION DAILY albuterol sulfate 90 mcg/actuation Aero Powdr Breath Act W/Sensor 2 inh INHALATION Q6H glyburide 2.5 mg tablet 2.5 mg PO DAILY Qty: 30 0RF levothyroxine 25 mcg tablet 325 mcg PO DAILY Rx Instructions: pt takes total of 325mcg, (2) 150mcg and (1) 25mcg insulin lispro 100 unit/mL insulin pen 1 sliding scale dose subcut USEASDIRECTD Qty: 3 0RF Rx Instructions: Check blood sugar before meals. If glucose < 250, no insulin; if glucose 251 - 300 then 2 units; if glucose 301 - 350 then 4 units; if glucose 351 - 400 then 6 units; if glucose 401 - 450 then 8 units; if glucose > 450 then 10 units and call your PCP. Jardiance 10 mg tablet 1 tab PO 1XD meclizine 12.5 mg tablet 12.5 mg PO TID PRN (Reason: dizziness) Qty: 14 0RF ondansetron HCl 4 mg Tablet 4 mg PO Q6H PRN meclizine 25 mg Tablet 25 mg PO BID PRN morphine 30 mg tablet extended release 30 mg PO Q12H oxycodone 5 mg capsule 10 mg PO Q4H PRN prednisone 20 mg tablet 20 mg PO DAILY Rx Instructions: taper Discharge Instructions Additional Instructions: At this time we have thankfully been able to meet your current goals of pain improvement. Please continue to use your home pain medications as needed. Please do understand that there is a risk of decreased breathing when you take your home narcotic medications. We have placed a referral with our hospice care team. They will be contacting you. Please discuss with them the tools and options that they may be able to provide to help you at this current stage of your cancer status. If you notice any worsening of your symptoms, or any new symptoms such as vomiting, diarrhea, fever, chills, shortness of breath, chest pain, numbness, weakness, or fainting , please return immediately to the emergency department for reevaluation. Please follow up with your primary care provider as soon as possible for reassessment and reevaluation. As always, it was a pleasure participating in your medical care today. 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 She already does have a strong pain regiment to help manage her pain which appears to be quite diffuse. Unfortunately in spite of this, and in spite of taking her Percocet and morphine at 5 PM, she still has severe diffuse unremitting whole body pain. She also admits to continued pain in her left upper jaw at the site of her mass. She states that her goal is pain control. She does live with her sister. She denies any other complaints at this time. No other modifying factors. Physical exam demonstrates an emotionally distraught female. Additionally she has generalized subjective pain. No focal neurologic deficits or signs of focal trauma or infection. Vital signs stable. Mass in her mouth is notably large, but not obstructing the airway or secretions. Patient's goal is pain control, and with her current prognosis I think this is completely acceptable. We will give IV Dilaudid, gently rehydrate, and reassess. Patient's is focused on end-o f-life comfort care at this time. 9:52 PM On reassessment patient is feeling much better. Pain/whole body pain notably improved. She did have significant relief of her mouth pain at the site of her tumor with the application of HurriCaine spray. We will give her some to go home with. We did discuss hospice options, and we will place a hospice referral for the patient. Patient otherwise remained stable, and appropriate for discharge. Patient feels comfortable with plan. Sister feels comfortable with plan. I have extensively reviewed the treatment plan and discharge instructions with the patient and their family. I have addressed all patient concerns at this time. The patient and family was made aware of what symptoms to monitor for that would warrant a return to the emergency department. Discussed the plan with the patient and family, they demonstrate verbal understanding and agreement with our assessment and plan at this time. The documentation in this chart was dictated using [employer] dictation software. Please excuse any dictation errors. HPI General Date/Time Provider Initiated Documentation: 12/11/22 20:59 . 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 She already does have a strong pain regiment to help manage her pain which appears to be quite diffuse. Unfortunately in spite of this, and in spite of taking her Percocet and morphine at 5 PM, she still has severe diffuse unremitting whole body pain. She also admits to continued pain in her left upper jaw at the site of her mass. She states that her goal is pain control. She does live with her sister. She denies any other complaints at this time. No other modifying factors. Related Data Home Medications Medication Instructions Recorded Confirmed alprazolam 1 mg tablet (Xanax) 1 mg PO TID 07/19/19 12/04/22 aripiprazole 30 mg tablet (Abilify) 20 mg PO DAILY 07/19/19 12/04/22 fluoxetine 40 mg capsule (Prozac) 80 mg PO DAILY 07/19/19 12/04/22 albuterol sulfate 90 mcg/actuation 2 inh inhalation Q6H 06/07/20 12/04/22 breath activated powder inhaler,sensor fluticasone fur. 100 mcg-umeclid 1 inh inhalation DAILY 06/07/20 12/04/22 62.5 mcg-vilant 25 mcg inhalat.powder (Trelegy Ellipta) glyburide 2.5 mg tablet 2.5 mg PO DAILY #30 tabs 02/07/22 12/04/22 levothyroxine 25 mcg tablet 325 mcg PO DAILY 02/19/22 12/04/22 insulin lispro 100 unit/mL 1 sliding scale dose subcut 02/20/22 12/04/22 subcutaneous pen USEASDIRECTD #3 mL meclizine 25 mg tablet 25 mg PO BID PRN 07/12/22 12/04/22 ondansetron HCl 4 mg tablet 4 mg PO Q6H PRN 07/12/22 12/04/22 empagliflozin 10 mg tablet 1 tab PO 1XD 07/16/22 12/04/22 (Jardiance) meclizine 12.5 mg tablet 12.5 mg PO TID PRN dizziness #14 07/17/22 12/04/22 tabs morphine 30 mg tablet,extended 30 mg PO Q12H 11/25/22 12/04/22 release oxycodone 5 mg capsule 10 mg PO Q4H PRN 11/25/22 12/04/22 prednisone 20 mg tablet 20 mg PO DAILY 11/25/22 12/04/22 Previous Rx's Medication Instructions Recorded glyburide 2.5 mg tablet 2.5 mg PO DAILY #30 tabs 02/07/22 insulin lispro 100 unit/mL 1 sliding scale dose subcut 02/20/22 subcutaneous pen USEASDIRECTD #3 mL meclizine 12.5 mg tablet 12.5 mg PO TID PRN dizziness #14 07/17/22 tabs Allergies Allergy/AdvReac Type Severity Reaction Status Date / Time clonidine Allergy Severe nazia Unverified 12/04/22 10:27 ardiana syndrome codeine Allergy Itching Unverified 12/04/22 10:27 hydrocodone [From Vicodin] Allergy Itching Unverified 12/04/22 10:27 methadone AdvReac Nausea, Unverified 12/04/22 10:27 vomiting General Stated Complaint: [facility] JOANNE: 3 Review of Systems All systems reviewed & are unremarkable except as noted in HPI and below PFSH All Active Problems (Updated 12/11/22 @ 21:48 by Bhavesh Sherman DO) UTI (urinary tract infection) (Acute) Skin irritation (Acute) Abdominal pain (Acute) Pulmonary nodule (Acute) Nausea (Acute) Nausea and vomiting (Acute) COVID-19 (Acute) Facial swelling (Acute) Pain in oral cavity (Acute) Leukocytosis (Acute) Hypomagnesemia (Acute) Whole body pain (Acute) Medical History (Updated 03/02/23 @ 21:48 by Bhavesh Sherman DO) Anxiety Asthma COPD (chronic obstructive pulmonary disease) Depression Diabetes mellitus GERD (gastroesophageal reflux disease) Hypothyroid Surgical History History of cholecystectomy History of hysterectomy Hx of shoulder surgery Social History Smoking/Tobacco Use Status: Current every day Tobacco Type: cigarettes Smoking risk assessment performed?: Yes Alcohol Intake: never Drug use: Daily Substance use type: marijuana Do you feel safe at home: Yes Do you feel safe in your relationship?: Yes Exam Narrative Exam Narrative: 1.Const: Well-nourished, Well-developed, appearing stated age 2.Eyes: PERRL, no conjunctival injection, and symmetrical lids. 3.ENT: Atraumatic external nose and ears. Moist MM. Neck: Symmetric, trachea midline, No thyromegaly. Notable mass in the left upper palate. No active bleeding from the palate. 4.CVS: +S1/S2, No murmurs or gallops. Peripheral pulses 2+ and equal in all extremities. Brisk capillary refill in all extremities. 5.RESP: Unlabored respiratory effort. Clear to auscultation bilaterally. No wheezes rales or rhonchi 6.GI: Soft, Nontender/Nondistended, No hepatosplenomegaly. No guarding or rebound. 7.MSK: Normocephalic/Atraumatic, Extremities w/o deformity or ttp No cyanosis or clubbing, Normal movement of all extremities 8.Skin: Warm, Dry. No rashes or lesions. 9.Neuro: machine brush maker II-XII grossly intact. Sensation grossly intact, no focal neurologic deficits. 10.Psych: (AAO) x3. Appropriate mood and affect Course Vital Signs Vital signs: Vital Signs Pulse 103 H 12/11/22 20:25 Respiratory Rate 20 12/11/22 20:25 Blood Pressure 155/86 H 12/11/22 20:25 Pulse Oximetry 97 12/11/22 20:25 Temperature 36.6 C 12/11/22 20:32 Temperature Source Oral 12/11/22 20:32 Pulse 103 H 12/11/22 20:25 Respiratory Rate 20 12/11/22 20:25 Respiratory Effort Normal 12/11/22 20:30 Respiratory Depth Normal 12/11/22 20:30 Respiratory Pattern Normal 12/11/22 20:30 Blood Pressure 155/86 H 12/11/22 20:25 Blood Pressure Position Sitting 12/11/22 20:25 Pulse Oximetry 97 12/11/22 20:25 Oxygen Delivery Method Room Air 12/11/22 20:25 Oxygen Flow Rate 0 12/11/22 20:25 Pain Level 10 12/11/22 20:25
[2022-12-11] MEDS: Normal Saline 500 ML IV (21:09)
[2022-12-11] MEDS: HYDROmorphone 2 MG/ML SYR IVP (21:10)
[2022-12-11] MEDS: ACETAMINOPHEN 1,000 MG/100 ML BTL 400 MG IVPB (21:26)
[2022-12-11] MEDS: Ketorolac 30 MG/ML VIAL IVP (21:27)
[2022-12-11] MEDS: Heparin 500 UNITS/5 ML SYRINGE (21:58)
--- NOTE | 2022-12-12 01:45 | NUR.NOTE ---
referral to care management to get patient set up with hospice care. Stage 4 mouth cancer.Nursing Note:
== END 2022-12-11 22:12 | disposition home or self-care (01) ==
LOC: ER 21:54
PROVIDERS: Emergency Provider Student in an Organized Health Care Education/Training Program; PCP Internal Medicine
DX: G89.3 Neoplasm related pain (acute) (chronic); C05.0 Malignant neoplasm of hard palate; E11.9 Type 2 diabetes mellitus without complications; J44.9 Chronic obstructive pulmonary disease, unspecified; F31.81 Bipolar II disorder; I10 Essential (primary) hypertension; F17.210 Nicotine dependence, cigarettes, uncomplicated
CPT/HCPCS: 96361; 96365; 96374; 96375; 99284; 99285; J0131; J1170; J1885

== ENCOUNTER 2022-12-12 19:45 | Emergency (ER) | payer MEDICARE, MEDICAID, SELFPAY ==
[2022-12-12 19:56] VITALS: BP 134/76; PULSE 100; RESP 14; TEMP 36.8; O2SAT 96
--- NOTE | 2022-12-12 19:58 | W.ED.GENAD ---
Discharge Plan Disposition Patient Disposition: Home Condition: Improving Discharge Details Clinical Impression: Enteritis Primary Care Provider: Tom Hay ED Provider: Uzma Lemon Home Meds and New Rx's Prescriptions: Continued fluoxetine [Prozac] 40 mg Capsule 80 mg PO DAILY alprazolam [Xanax] 1 mg Tablet 1 mg PO TID aripiprazole [Abilify] 30 mg Tablet 20 mg PO DAILY Trelegy Ellipta 100-62.5-25 mcg Blister With Device 1 inh INHALATION DAILY albuterol sulfate 90 mcg/actuation Aero Powdr Breath Act W/Sensor 2 inh INHALATION Q6H glyburide 2.5 mg tablet 2.5 mg PO DAILY Qty: 30 0RF levothyroxine 25 mcg tablet 325 mcg PO DAILY Rx Instructions: pt takes total of 325mcg, (2) 150mcg and (1) 25mcg insulin lispro 100 unit/mL insulin pen 1 sliding scale dose subcut USEASDIRECTD Qty: 3 0RF Rx Instructions: Check blood sugar before meals. If glucose < 250, no insulin; if glucose 251 - 300 then 2 units; if glucose 301 - 350 then 4 units; if glucose 351 - 400 then 6 units; if glucose 401 - 450 then 8 units; if glucose > 450 then 10 units and call your PCP. Jardiance 10 mg tablet 1 tab PO 1XD meclizine 12.5 mg tablet 12.5 mg PO TID PRN (Reason: dizziness) Qty: 14 0RF ondansetron HCl 4 mg Tablet 4 mg PO Q6H PRN meclizine 25 mg Tablet 25 mg PO BID PRN morphine 30 mg tablet extended release 30 mg PO Q12H oxycodone 5 mg capsule 10 mg PO Q4H PRN prednisone 20 mg tablet 20 mg PO DAILY Rx Instructions: taper Discharge Instructions Instructions: Enteritis (ED) Additional Instructions: Your blood tests today are reassuring and show no evidence of acute concerning or significant findings. Your COVID, influenza and RSV tests today are negative. Your CT scan did show evidence of enteritis which is inflammation of your bowel and likely may be causing your symptoms. Drink plenty of fluids and get plenty of rest. Take your nausea medication that you have at home as needed and directed for nausea and vomiting. Alternate Tylenol and Motrin as needed and directed for fever. Resume taking your clindamycin as soon as possible. Follow-up with your scheduled appointment with your oncology team at [facility] on Thursday. Return immediately to the emergency department if you develop any worsening or new concerning symptoms. Discharge Data Discharge Date/Time-TO BE ENTERED AT DEPARTURE: 12/13/22 01:10 Discharge Physician: Uzma Lemon Medical Decision Making <Brad Loredo MD - Last Filed: 12/13/22 16:03> Patient presenting because of fever and not feeling well. She feels like her body is swollen. She reports that she is still making urine. She was seen here yesterday for body pain. In reviewing that note patient was leaning toward palliative and hospice care. However, she does wish to visit family in [place] which is scheduled to happen next week. She therefore really wants to know what the fever is from. She does not look toxic. She is not febrile here. She does have some diffuse belly tenderness. Will place IV and give fluids. We will check some basic labs, urine, chest x-ray, abdominal pelvic CT scan and a nasal swab. <Uzma Lemon DO - Last Filed: 12/13/22 09:38> Dr. Loredo Patient presenting because of fever and not feeling well. She feels like her body is swollen. She reports that she is still making urine. She was seen here yesterday for body pain. In reviewing that note patient was leaning toward palliative and hospice care. However, she does wish to visit family in [place] which is scheduled to happen next week. She therefore really wants to know what the fever is from. She does not look toxic. She is not febrile here. She does have some diffuse belly tenderness. Will place IV and give fluids. We will check some basic labs, urine, chest x-ray, abdominal pelvic CT scan and a nasal swab. Dr. Lemon [phone] --please see Dr. Loredo's note for initial presentation, exam and plan. Case endorsed to follow-up on urinalysis and if patient continues to feel better, will plan for discharge to home with likely diagnosis of enteritis. 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 She also endorses fever of 102.3 today. She did take ibuprofen and Tylenol earlier today. She states she does feel better since arrival to the ED. Patient is afebrile and hemodynamically stable here. Labs and imaging reviewed. White blood cell count 11.32. Normal electrolytes. Fluvid negative. Chest x-ray negative for acute disease. CT notes findings of enteritis. We will continue IV fluid hydration and give a dose of Toradol IV. Patient states she was sent here by her oncology team on-call for evaluation and said they Dr. Colbert was considering starting her on steroids if indicated. Review of [facility] telephone encounter notes that patient was sent by Dr. Colbert to rule out possible infectious etiology. 2345 --urinalysis notes 3-5 WBCs, RBCs, trace leukocyte esterase but with few bacteria, moderate epithelial cells and negative nitrite. Appears likely consistent with contamination. As she has no history of urinary symptoms, does not appear consistent with UTI at this time. Case discussed with Dr. Colbert with patient's [facility] hematology/oncology team -- he had been thinking about the possibility of immunotherapy causing enteritis. He does not see any indication for steroids at this time. Patient does endorse that she was placed on clindamycin last month for an oral/dental infection. She states she has not taken it for the past few days due to her nausea vomiting. Discussed that she can resume these once she is feeling better. 0045 --patient reassessed and she states she feels much better and would like to go home. She states she has antiemetics at home to take as needed. Advised to increase fluids and rest. She has a follow-up appointment with her oncology team at [facility] on Thursday. Usual and customary return precautions given prior to discharge. Disposition decision made weighing the risks and benefits of hospitalization versus outpatient treatment, the risk for further decompensation, and the patient's wishes. Medical Records Medical records reviewed: Yes I reviewed the patient's medical records. Imaging Data Radiologic Study: Radiologist's impression: XR Chest Exam date and time: 12/12/2022 9:53 PM Age: 57 years old Clinical indication: Fever TECHNIQUE: Imaging protocol: Radiologic exam of the chest. Views: 2 views. COMPARISON: CR XR CHEST 2V PA LATERAL 11/25/2022 5:08 PM FINDINGS: Tubes, catheters and devices: Right chest wall medication port with central venous catheter. Lungs: Unremarkable. No consolidation. Pleural spaces: Unremarkable. No pleural effusion. No pneumothorax. Heart/Mediastinum: Unremarkable. No cardiomegaly. Bones/joints: Prior lower cervical ACDF. IMPRESSION: No acute cardiopulmonary abnormality. CT Abdomen And Pelvis With Contrast Exam date and time: 12/12/2022 9:45 PM Age: 57 years old Clinical indication: Fever; Abdominal pain; Generalized; Prior surgery; Surgery date: 6+ months; Surgery type: ; Patient HX: H/o cancer; Additional info: Fever, abdominal pain TECHNIQUE: Imaging protocol: Computed tomography of the abdomen and pelvis with contrast. Radiation optimization: All CT scans at this facility use at least one of these dose optimization techniques: automated exposure control; mA and/or kV adjustment per patient size (includes targeted exams where dose is matched to clinical indication); or iterative reconstruction. Contrast material: OMNI 350; Contrast volume: 100 ml; Contrast route: INTRAVENOUS (IV);? COMPARISON: CT CHEST/ABD/PEL WO 03/04/2022 9:12 PM FINDINGS: Lungs: Lung bases are clear. Liver: Normal. No mass. Gallbladder and bile ducts: The gallbladder is surgically absent. Negative for biliary ductal dilatation. Pancreas: Normal. No ductal dilation. Spleen: Normal. No splenomegaly. Adrenal glands: A left adrenal nodule measures 1.8 cm diameter, Hounsfield units measure less than 10 on the previous noncontrast study, suggesting a benign adenoma. Kidneys and ureters: No renal mass. Kidneys enhance symmetrically. Negative for hydronephrosis. Ureters are not dilated. No stones are observed. Stomach and bowel: Unremarkable stomach. Nondilated small bowel. Fat planes around loops of small bowel are indistinct. There are no inflammatory changes observed around the colon. Most of the colon is collapsed. Appendix: Normal appendix. Intraperitoneal space: Mild mesenteric fat stranding. No significant free fluid. Negative for free air. Negative for abscess. Negative for retroperitoneal hematoma. Vasculature: Mild vascular calcifications. Negative for abdominal aortic aneurysm. Lymph nodes: Mesenteric lymph nodes are mildly prominent. Negative for pathologic lymphadenopathy. Urinary bladder: Unremarkable as visualized. Reproductive: Unremarkable as visualized. Bones/joints: No compression fractures. Multilrevel degenerative disc disease and facet arthropathy noted. Degenerative anterolisthesis noted at L3-L4, 3 mm. Moderate spinal canal stenosis is observed at L4-L5. Soft tissues: Negative for abdominal wall hernia. IMPRESSION: Findings of enteritis. No bowel obstruction. No abscess. Lab Data Lab results reviewed: Yes I reviewed the patient's lab results. Labs: Laboratory Tests Range/Units 12/12/22 12/12/22 12/12/22 20:23 20:23 20:23 WBC (4.4-10.8) 10^3/uL 11.32 H RBC (3.93-5.22) 10^6/uL 4.61 Hgb (11.2-15.7) g/dL 14.1 Hct (36.0-46.0) % 43.0 MCV (80-95) fL 93 MCH (27.0-33.0) pg 30.6 MCHC (32.0-36.0) % 32.8 RDW (11.7-14.6) % 13.1 Plt Count (130-400) 10^3/uL 336 MPV (8.0-11.0) fL 9.9 Immature Gran % 1.6 Neutrophils % 58.6 Lymphocytes % 24.6 Monocytes % 8.8 Eosinophils % 5.5 Basophils % 0.9 Nucleated RBC % (0.0-0.3) % 0.0 Absolute Neutrophils (1.2-6.7) 10^3/uL 6.63 Absolute Lymphocytes (1.2-3.4) 10^3/uL 2.78 Absolute Monocytes (0.1-0.8) 10^3/uL 1.00 H Absolute Eosinophils (0.0-0.7) 10^3/uL 0.62 Absolute Basophils (0.0-0.2) 10^3/uL 0.10 Sodium (136-145) mmol/L 139 Potassium (3.5-5.1) mmol/L 3.7 Chloride (98-107) mmol/L 102 Carbon Dioxide (21.0-32.0) mmol/L 28.9 Anion Gap (3-11) mmol/L 8.1 BUN (7-18) mg/dL 10 Creatinine (0.55-1.02) mg/dL 1.0 Est GFR (CKD-EPI 2020) (mL/min/1.73m2) 66.53 Glucose (74-106) mg/dL 189 H Calcium (8.5-10.1) mg/dL 9.1 Total Bilirubin (0.2-1.0) mg/dL 0.6 AST (15-37) U/L 8 L ALT (14-59) U/L 16 Alkaline Phosphatase (46-116) U/L 69 Total Protein (6.4-8.2) g/dL 6.6 Albumin (3.4-5.0) g/dL 3.1 L Urine Color (Yellow) Urine Clarity (Clear) Urine pH (5-8) Ur Specific Traphill (1.005-1.025) Urine Protein (Negative) mg/dL Urine Ketones (Negative) mg/dL Urine Blood (Negative) Urine Nitrite (Negative) Urine Bilirubin (Negative) Urine Urobilinogen (Up to 0.2) mg/dL Ur Leukocyte Esterase (Negative) Urine RBC (0-2) HPF Urine WBC (0-5) HPF Ur Epithelial Cells (Negative) HPF Urine Crystals (Negative) HPF Urine Bacteria (Negative) HPF Urine Casts (Negative) LPF Urine Mucus (Negative) Ur Culture Indicated? Urine Glucose (Negative) mg/dL COVID-19 Source Nasopharynx SARS-CoV-2 (PCR) (Negative) Negative Influenza Type A (PCR) (Negative) Negative Influenza Type B (PCR) (Negative) Negative RSV (PCR) (Negative) Negative Range/Units 12/12/22 23:00 WBC (4.4-10.8) 10^3/uL RBC (3.93-5.22) 10^6/uL Hgb (11.2-15.7) g/dL Hct (36.0-46.0) % MCV (80-95) fL MCH (27.0-33.0) pg MCHC (32.0-36.0) % RDW (11.7-14.6) % Plt Count (130-400) 10^3/uL MPV (8.0-11.0) fL Immature Gran % Neutrophils % Lymphocytes % Monocytes % Eosinophils % Basophils % Nucleated RBC % (0.0-0.3) % Absolute Neutrophils (1.2-6.7) 10^3/uL Absolute Lymphocytes (1.2-3.4) 10^3/uL Absolute Monocytes (0.1-0.8) 10^3/uL Absolute Eosinophils (0.0-0.7) 10^3/uL Absolute Basophils (0.0-0.2) 10^3/uL Sodium (136-145) mmol/L Potassium (3.5-5.1) mmol/L Chloride (98-107) mmol/L Carbon Dioxide (21.0-32.0) mmol/L Anion Gap (3-11) mmol/L BUN (7-18) mg/dL Creatinine (0.55-1.02) mg/dL Est GFR (CKD-EPI 2020) (mL/min/1.73m2) Glucose (74-106) mg/dL Calcium (8.5-10.1) mg/dL Total Bilirubin (0.2-1.0) mg/dL AST (15-37) U/L ALT (14-59) U/L Alkaline Phosphatase (46-116) U/L Total Protein (6.4-8.2) g/dL Albumin (3.4-5.0) g/dL Urine Color (Yellow) Yellow Urine Clarity (Clear) Clear Urine pH (5-8) 6.0 Ur Specific Traphill (1.005-1.025) <= 1.005 Urine Protein (Negative) mg/dL Trace H Urine Ketones (Negative) mg/dL Negative Urine Blood (Negative) Trace-intact H Urine Nitrite (Negative) Negative Urine Bilirubin (Negative) Negative Urine Urobilinogen (Up to 0.2) mg/dL 0.2 Ur Leukocyte Esterase (Negative) Trace H Urine RBC (0-2) HPF 3-5 H Urine WBC (0-5) HPF 3-5 Ur Epithelial Cells (Negative) HPF Moderate Urine Crystals (Negative) HPF Negative Urine Bacteria (Negative) HPF Few Urine Casts (Negative) LPF Negative Urine Mucus (Negative) Negative Ur Culture Indicated? No/Sq. Contamination Urine Glucose (Negative) mg/dL Negative COVID-19 Source SARS-CoV-2 (PCR) (Negative) Influenza Type A (PCR) (Negative) Influenza Type B (PCR) (Negative) RSV (PCR) (Negative) HPI <Brad Loredo MD - Last Filed: 12/13/22 16:03> General Mode of arrival: ambulatory. Date/Time Provider Initiated Documentation: 12/12/22 19:58. HPI Narrative: Patient presenting to ED with complaint of fever and body swelling. Patient was seen here yesterday for body pain. 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 Her [facility] provider called her in and wanted a work-up for the fever. She has finished steroids but has not had any recent chemotherapy. She apparently is declining surgical intervention. She reports feeling weak and lethargic all day. She woke up with a fever of 102.4. Her sister gave her acetaminophen and ibuprofen. She continues to have body pain and she feels like her body is swollen. She does report nausea and diarrhea. She continues to make urine and denies urinary symptoms. She does have a cough but denies chest pain or shortness of breath. Related Data Home Medications Medication Instructions Recorded Confirmed alprazolam 1 mg tablet (Xanax) 1 mg PO TID 07/19/19 12/12/22 aripiprazole 30 mg tablet (Abilify) 20 mg PO DAILY 07/19/19 12/12/22 fluoxetine 40 mg capsule (Prozac) 80 mg PO DAILY 07/19/19 12/12/22 albuterol sulfate 90 mcg/actuation 2 inh inhalation Q6H 06/07/20 12/12/22 breath activated powder inhaler,sensor fluticasone fur. 100 mcg-umeclid 1 inh inhalation DAILY 06/07/20 12/12/22 62.5 mcg-vilant 25 mcg inhalat.powder (Trelegy Ellipta) glyburide 2.5 mg tablet 2.5 mg PO DAILY #30 tabs 02/07/22 12/12/22 levothyroxine 25 mcg tablet 325 mcg PO DAILY 02/19/22 12/12/22 insulin lispro 100 unit/mL 1 sliding scale dose subcut 02/20/22 12/12/22 subcutaneous pen USEASDIRECTD #3 mL meclizine 25 mg tablet 25 mg PO BID PRN 07/12/22 12/12/22 ondansetron HCl 4 mg tablet 4 mg PO Q6H PRN 07/12/22 12/12/22 empagliflozin 10 mg tablet 1 tab PO 1XD 07/16/22 12/12/22 (Jardiance) meclizine 12.5 mg tablet 12.5 mg PO TID PRN dizziness #14 07/17/22 12/12/22 tabs morphine 30 mg tablet,extended 30 mg PO Q12H 11/25/22 12/12/22 release oxycodone 5 mg capsule 10 mg PO Q4H PRN 11/25/22 12/12/22 prednisone 20 mg tablet 20 mg PO DAILY 11/25/22 12/12/22 Previous Rx's Medication Instructions Recorded glyburide 2.5 mg tablet 2.5 mg PO DAILY #30 tabs 02/07/22 insulin lispro 100 unit/mL 1 sliding scale dose subcut 02/20/22 subcutaneous pen USEASDIRECTD #3 mL meclizine 12.5 mg tablet 12.5 mg PO TID PRN dizziness #14 07/17/22 tabs Allergies Allergy/AdvReac Type Severity Reaction Status Date / Time clonidine Allergy Severe nazia Unverified 12/12/22 20:00 adriana syndrome codeine Allergy Itching Unverified 12/12/22 20:00 hydrocodone [From Vicodin] Allergy Itching Unverified 12/12/22 20:00 methadone AdvReac Nausea, Unverified 12/12/22 20:00 vomiting General JOANNE: 3 Review of Systems <Brad Loredo MD - Last Filed: 12/13/22 16:03> Narrative: per HPI PFSH <Brad Loredo MD - Last Filed: 12/13/22 16:03> All Active Problems (Updated 12/13/22 @ 00:50 by Uzma Lemon DO) Enteritis (Acute) UTI (urinary tract infection) (Acute) Skin irritation (Acute) Abdominal pain (Acute) Pulmonary nodule (Acute) Nausea (Acute) Nausea and vomiting (Acute) COVID-19 (Acute) Facial swelling (Acute) Pain in oral cavity (Acute) Leukocytosis (Acute) Hypomagnesemia (Acute) Whole body pain (Acute) Medical History (Updated 12/13/22 @ 00:50 by Uzma Lemon DO) Anxiety Asthma COPD (chronic obstructive pulmonary disease) Depression Diabetes mellitus GERD (gastroesophageal reflux disease) Hypothyroid Melanoma Surgical History History of cholecystectomy History of hysterectomy Hx of shoulder surgery Social History Smoking/Tobacco Use Status: Current every day Tobacco Type: cigarettes Smoking risk assessment performed?: Yes Alcohol Intake: never Drug use: Daily Substance use type: marijuana Do you feel safe at home: Yes Do you feel safe in your relationship?: Yes Exam <Brad Loredo MD - Last Filed: 12/13/22 16:03> Narrative Exam Narrative: Const: WDWN female in NAD. HEENT: NC/AT. Eyes: Normal conjunctiva and sclera. Neck: Supple. Trachea midline. Lungs: Normal respiratory effort. Lungs are clear. Cor: RRR without murmur/gallop. Good radial pulses. GI: Soft. Mild diffuse tenderness. Neuro: A+O x 3. Normal speech, mentation. Cranial nerves II - XII grossly intact. No gross motor or sensory deficit. Ext: No C/C/E. Skin: Warm and dry without rash. Sign Out <Brad Loredo MD - Last Filed: 12/13/22 16:03> Sign Out Data: Sign Out Comment: pending urine Last updated by Brad Loredo MD at 12/12/22 23:20
--- NOTE | 2022-12-12 20:30 | DI.RAD_ITS ---
Exam(s) XR CHEST 2V PA LATERAL EXAM: XR CHEST 2V PA LATERAL CLINICAL HISTORY: fever. TECHNIQUE: 2D digital imaging was performed. COMPARISON: CR XR CHEST 2V PA LATERAL from 11/25/2022 FINDINGS: 2 views: Distal tip of Port-A-Cath in right atrium. Cervical fusion plate again noted. Heart size is normal. The mediastinum is not widened. Lungs are clear. No infiltrates nor pleural effusions. IMPRESSION: No acute pulmonary findings. DATA REPOSITORY: RADIATION DOSE DELIVERED:
--- NOTE | 2022-12-12 20:30 | DI.CT_ITS ---
Exam(s) CT ABDOMEN PELVIS W EXAM: CT ABDOMEN PELVIS W CLINICAL HISTORY: fever, abdominal pain. TECHNIQUE: Imaging Protocol: Axial computed tomography images with coronal and sagittal reformatted images were created and reviewed CONTRAST MATERIAL: Intravenous: Omnipaque-350 100cc Oral: None COMPARISON: CT CT CHEST/ABD/PEL WO from 03/04/[address] NECK W from 12/04/[address] CHEST PE CTA from 12/04/2022 FINDINGS: VISUALIZED LUNG BASES: No nodules nor pleural effusions evident. ABDOMEN: There is no ascites. LIVER: There are no focal hepatic lesions evident. No dilated intrahepatic ducts. GALLBLADDER/BILIARY: Gallbladder is surgically absent. CBD is not dilated. PANCREAS: No evidence of pancreatic mass nor dilatation of the pancreatic duct. SPLEEN: Spleen is not enlarged. No obvious intrasplenic lesions. Splenic and portal veins are paten t. ADRENALS: Right adrenal unremarkable. Hypodense nodule in the left adrenal gland noted which measure s 2.1 by 2.0 cm, unchanged from CT scan 03/04/2022. This stable hypodense nodule is probably a an ad enoma. KIDNEYS:1.2 cm superior pole benign cyst left kidney. No solid renal masses. No solid renal masses. No calculi nor hydronephrosis.. ABDOMINAL AORTA: Abdominal aorta is not enlarged. LYMPH NODES:There is no retroperitoneal nor paraaortic adenopathy. ABDOMINAL WALL: No evidence of significant anterior abdominal wall nor inguinal hernia. GI: There is no evidence of bowel obstruction, free air, nor abscess. PELVIS: GI: No evidence of appendicitis.No evidence of sigmoid diverticulitis. LYMPH NODES: There is no intrapelvic nor inguinal adenopathy. REPRODUCTIVE: Uterus is surgically absent. Surgical clips again noted in the right adnexa. Right ov mayank size appears normal. Left ovary size normal. No free fluid. URINARY BLADDER: No calculi nor obvious masses evident OSSEOUS: No fractures and no significant osseous lesions. IMPRESSION: 1. Compared to CT scan of 03/04/2022 there is again noted evidence of previous cholecystectomy and hy sterectomy (both ovaries still present). No evidence of bowel obstruction. No dilatation biliary tr ee. 2. Continued stable appearance of 2 cm hypodense nodule in the left adrenal gland which is probably a benign adenoma. 3. No obvious acute findings in the abdomen and pelvis. RADIATION DOSE DELIVERED: 1,164.14mGy.cm Total DLP DATA REPOSITORY: All CT scans at this facility are submitted to the National Radiology Data Registry (NRDR) Dose Index Registry (DIR) with the [employer] ([employer]). RADIATION OPTIMIZATION: All CT scans at this facility use at least one of these dose optimization te chniques: automated exposure control; mA and/or kV adjustment per patient size (includes targeted exa ms where dose is matched to clinical indication); or iterative reconstruction.
[2022-12-12 21:09] LABS: Abs Immature Grans 0.18 10^3/uL (0.0-0.06); Absolute Eosinophil Count 0.62 10^3/uL (0.0-0.7); Absolute Neutrophil Count 6.63 10^3/uL (1.2-6.7); Basophils % 0.9; Eosinophils % 5.5; HGB 14.1 g/dL (11.2-15.7); Immature Grans % 1.6; Lymphocytes % 24.6; MCH 30.6 pg (27.0-33.0); MCHC 32.8 % (32.0-36.0); MCV 93 fL (80-95); MPV 9.9 fL (8.0-11.0); Monocytes % 8.8; Neutrophils % 58.6; Platelet Count 336 10^3/uL (130-400); RBC 4.61 10^6/uL (3.93-5.22); RDW 13.1 % (11.7-14.6); RDW-SD 45.1 fL; WBC 11.32 10^3/uL (4.4-10.8)
[2022-12-12 21:12] LABS: Absolute Lymphocyte Count 2.78 10^3/uL (1.2-3.4)
[2022-12-12 21:28] LABS: ALT 16 U/L (14-59); AST 8 U/L (15-37); Albumin 3.1 g/dL (3.4-5.0); Alkaline Phosphatase 69 U/L (46-116); Anion Gap 8.1 mmol/L (3-11); BUN 10 mg/dL (7-18); Bilirubin, Total 0.6 mg/dL (0.2-1.0); CO2 28.9 mmol/L (21.0-32.0); Calcium 9.1 mg/dL (8.5-10.1); Chloride 102 mmol/L (98-107); Estimated GFR 66.53 (mL/min/1.73m2); Glucose 189 mg/dL (74-106); Potassium 3.7 mmol/L (3.5-5.1); Sodium 139 mmol/L (136-145); Total Protein 6.6 g/dL (6.4-8.2)
[2022-12-12] MEDS: Normal Saline 1,000 ML 150 ML IV (21:33)
[2022-12-12 21:46] LABS: COVID-19 PCR Negative (Negative); Influenza A PCR Negative (Negative); Influenza B PCR Negative (Negative); RSV PCR Negative (Negative)
[2022-12-12 21:49] LABS: Source Nasopharynx
[2022-12-12] MEDS: Normal Saline - Diluent 50 ML VIAL IV (21:49)
[2022-12-12] MEDS: Omnipaque 350 MG/ML 100 ML BTL IJ (21:50)
--- NOTE | 2022-12-12 22:10 | DI.VRAD_ITS ---
PROCEDURE INFORMATION: Exam: CT Abdomen And Pelvis With Contrast Exam date and time: 12/12/2022 9:45 PM Age: 57 years old Clinical indication: Fever; Abdominal pain; Generalized; Prior surgery; Surgery date: 6+ months; Surgery type: ; Patient HX: H/o cancer; Additional info: Fever, abdominal pain TECHNIQUE: Imaging protocol: Computed tomography of the abdomen and pelvis with contrast. Radiation optimization: All CT scans at this facility use at least one of these dose optimization techniques: automated exposure control; mA and/or kV adjustment per patient size (includes targeted exams where dose is matched to clinical indication); or iterative reconstruction. Contrast material: OMNI 350; Contrast volume: 100 ml; Contrast route: INTRAVENOUS (IV); COMPARISON: CT CHEST/ABD/PEL WO 03/04/2022 9:12 PM FINDINGS: Lungs: Lung bases are clear. Liver: Normal. No mass. Gallbladder and bile ducts: The gallbladder is surgically absent. Negative for biliary ductal dilatation. Pancreas: Normal. No ductal dilation. Spleen: Normal. No splenomegaly. Adrenal glands: A left adrenal nodule measures 1.8 cm diameter, Hounsfield units measure less than 10 on the previous noncontrast study, suggesting a benign adenoma. Kidneys and ureters: No renal mass. Kidneys enhance symmetrically. Negative for hydronephrosis. Ureters are not dilated. No stones are observed. Stomach and bowel: Unremarkable stomach. Nondilated small bowel. Fat planes around loops of small bowel are indistinct. There are no inflammatory changes observed around the colon. Most of the colon is collapsed. Appendix: Normal appendix. Intraperitoneal space: Mild mesenteric fat stranding. No significant free fluid. Negative for free air. Negative for abscess. Negative for retroperitoneal hematoma. Vasculature: Mild vascular calcifications. Negative for abdominal aortic aneurysm. Lymph nodes: Mesenteric lymph nodes are mildly prominent. Negative for pathologic lymphadenopathy. Urinary bladder: Unremarkable as visualized. Reproductive: Unremarkable as visualized. Bones/joints: No compression fractures. Multilrevel degenerative disc disease and facet arthropathy noted. Degenerative anterolisthesis noted at L3-L4, 3 mm. Moderate spinal canal stenosis is observed at L4-L5. Soft tissues: Negative for abdominal wall hernia. IMPRESSION: Findings of enteritis. No bowel obstruction. No abscess. Dictated and Authenticated by: Julio C Ramos MD. Ordering:KELLI Salinas MD
--- NOTE | 2022-12-12 22:22 | DI.VRAD_ITS ---
PROCEDURE INFORMATION: Exam: XR Chest Exam date and time: 12/12/2022 9:53 PM Age: 57 years old Clinical indication: Fever TECHNIQUE: Imaging protocol: Radiologic exam of the chest. Views: 2 views. COMPARISON: CR XR CHEST 2V PA LATERAL 11/25/2022 5:08 PM FINDINGS: Tubes, catheters and devices: Right chest wall medication port with central venous catheter. Lungs: Unremarkable. No consolidation. Pleural spaces: Unremarkable. No pleural effusion. No pneumothorax. Heart/Mediastinum: Unremarkable. No cardiomegaly. Bones/joints: Prior lower cervical ACDF. IMPRESSION: No acute cardiopulmonary abnormality. Dictated and Authenticated by: Marlon Price MD. Ordering:KELLI Salinas MD
[2022-12-12 23:07] LABS: Bilirubin Negative (Negative); Blood Trace-intact (Negative); Clarity Clear (Clear); Glucose Negative (Negative); Ketones Negative (Negative); Leukocyte Esterase Trace (Negative); Nitrite Negative (Negative); Specific Gravity <= 1.005 (1.005-1.025); Urobilinogen 0.2 mg/dL (Up to 0.2)
[2022-12-12] MEDS: Normal Saline 1,000 ML 1000 ML IV (23:11)
[2022-12-12 23:18] LABS: Bacteria Few HPF (Negative); C & S Indicated? No/Sq. Contamination; Casts Negative LPF (Negative); Crystals Negative HPF (Negative); Epithelial Cells Moderate HPF (Negative); Mucus Negative (Negative)
[2022-12-12] MEDS: Ketorolac 30 MG/ML VIAL IVP (23:54)
== END 2022-12-13 01:10 | disposition home or self-care (01) ==
PROVIDERS: Emergency Medicine; Emergency Provider Physician Assistant; PCP Internal Medicine
DX: K52.9 Noninfective gastroenteritis and colitis, unspecified (principal); J44.9 Chronic obstructive pulmonary disease, unspecified; E11.9 Type 2 diabetes mellitus without complications; E03.9 Hypothyroidism, unspecified; Z90.49 Acquired absence of other specified parts of digestive tract; Z90.710 Acquired absence of both cervix and uterus; Z79.51 Long term (current) use of inhaled steroids; Z79.4 Long term (current) use of insulin; Z20.822 Contact with and (suspected) exposure to COVID-19
CPT/HCPCS: 36415; 80053; 87637; 96361; 96374; 99284; 99285; 71046; 74177; 81003; 81015; 85025; J1885; J3490